=== PATIENT | female | born 1965 | race Caucasian/White ===

== ENCOUNTER 2016-09-14 18:10 | Inpatient (IN) | payer OTHER ==
[~2016-09-14] VITALS: Ht 165.1 cm; Wt 106.5 kg
[~2016-09-14 18:10] MED LIST: ASPI81TA28 PO; CALC667C PO; CLR10 PO; HYDR-5688 PO; INSDGIPEN SC; ISOS30TA35 PO; ISOS60TA25 PO; LPT40 PO; METO50TA16 PO; OXYC-57 PO; RANI300T PO; VNCS125 PO; ZLF/100 PO
[2016-09-14] MEDS ORDERED: NITROGLYCERIN OINT 2% 1GM PACKET EXT ONE (18:30)
--- NOTE | 2016-09-14 18:37 | EMERGENCY ROOM VISIT NOTE ---
History Report prepared by Aleksandra: oShan Cardona Under the Supervision of: Dr. Timothy Shi D.O. First contact with patient: 18:20 Chief Complaint: SHORTNESS OF BREATH Stated Complaint: SOB, CHEST DISCOMFORT History of Present Illness The patient is a 50 year old female who presents to the Emergency Room with complaints of persistent shortness of breath that began 8 days prior to arrival. Her shortness of breath is worsened when laying flat, and she feels as though she cannot take a deep breath. The patient is on routine dialysis, but missed her last three appointments due to an upset stomach and diarrhea. The patient's last appointment was Tuesday, 8 days ago. She also complains of fevers , chills, and coughing. She does feel like she is carrying a lot of extra fluid in her abdomen, but denies excess fluid buildup in her lower extremities. 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 Review of Systems See HPI for pertinent positives & negatives. A total of 10 systems reviewed and were otherwise negative. Past Medical & Surgical Medical Problems: (1) Allergic rhinitis (2) Coronary arteriosclerosis in [place] artery (3) DM type 2 (diabetes mellitus, type 2) (4) Dyslipidemia (5) ESRD (end stage renal disease) on dialysis (6) ESRD (end stage renal disease) on dialysis (7) GERD (gastroesophageal reflux disease) (8) HTN (hypertension) (9) HX OF PAST NONCOMPLIANCE (10) Hyperkalemia (11) Morbid obesity (12) Tobacco use disorder Surgical Problems: (1) Hemodialysis access, AV graft Family History Diabetes mellitus FATHER MOTHER Heart disease FATHER MOTHER Hypertension FATHER MOTHER Kidney disease GRANDMOTHER Social History Smoking Status: Former Smoker Alcohol Use: none Drug Use: none Marital Status: Housing Status: lives with family Occupation Status: unemployed Current/Historical Medications Scheduled Aspirin (Aspirin Ec), 81 MG PO DAILY Atorvastatin (Lipitor), 40 MG PO DAILY Calcium Acetate (Phoslo 667 Mg), 1 CAP PO WM Cephalexin Monohydrate (Cephalexin), 1 CAP PO BID Clopidogrel Bisulfate (Plavix), 1 TAB PO DAILY Insulin Glargine (Lantus Solostar), 10 UNITS SC QPM Isosorbide Mononitrate (Isosorbide Mononitrate ER), 60 MG PO QAM Isosorbide Mononitrate Ext Rel (Imdur Ext Rel), 30 MG PO QAM Metoprolol Tartrate (Lopressor), 50 MG PO BID Ranitidine Hcl (Zantac), 300 MG PO HS Sertraline HCl (Sertraline HCl), 2 TAB PO DAILY Scheduled PRN Lorazepam (Ativan), 0.5 MG PO DAILY PRN for Anxiety Methocarbamol (Methocarbamol), 500 MG PO BID PRN for Muscle Spasms Tramadol (Ultram), 1 TAB PO TID PRN for Pain Allergies Coded Allergies: Adhesives (Verified Allergy, Mild, RASH, SORES, 09/14/16) Pollen Extract (Unverified Allergy, Unknown, rash, 09/14/16) Physical Exam Vital Signs Date Time Temp Pulse Resp B/P Pulse Ox O2 Delivery O2 Flow Rate FiO2 09/14/16 19:12 93 22 181/109 95 Room Air 09/14/16 18:54 97 09/14/16 18:53 93 Room Air 09/14/16 18:44 93 Room Air 09/14/16 18:44 93 Room Air 09/14/16 18:13 36.5 98 20 192/113 93 Room Air Physical Exam GENERAL: Patient is awake, alert, and anxious appearing. She is comfortable, does not appear to be in pain. EYES: The conjunctivae are clear. The pupils are round and reactive. EARS, NOSE, MOUTH AND THROAT: The nose is without any evidence of any deformity. Mucous membranes are moist tongue is midline NECK: The neck is nontender and supple. RESPIRATORY: Lung sounds are diminished throughout all lung rodríguez. Rales are present in all lung rodríguez. Tachypnea and conversational dyspnea are noted bilaterally. CARDIOVASCULAR: Regular rate and rhythm noted there no murmurs rubs or gallops normal S1 normal S2 GASTROINTESTINAL: The abdomen is soft. Bowel sounds are present in all quadrants. Abdomen is nontender MUSCULOSKELETAL/EXTREMITIES: Pedal edema bilaterally. There is no evidence of gross deformity full range of motion is noted in the hips and shoulders SKIN: There is no obvious evidence of any rash. There are no petechiae, pallor or cyanosis noted. There was a blackened area at the tip of the right index finger. This is nontender. There is a dialysis fistula present in the right upper extremity. A bruit was noted to osculation as well as a palpable thrill. NEUROLOGIC: Patient is awake alert and oriented x3 strength is symmetric patellar reflexes are 2+ bilaterally Medical Decision & Procedures ER Provider Diagnostic Interpretation: X ray results and stated below per my interpretation and radiology interpretation. Other radiology results per my review and radiologist interpretation: CHEST ONE VIEW PORTABLE CLINICAL HISTORY: Respiratory distress. Dyspnea. COMPARISON STUDY: Chest radiograph June 01, 2016. FINDINGS: Lung volumes are normal. There is no pneumothorax or pleural effusion. Moderate cardiomegaly is unchanged. There is pulmonary vascular congestion without overt pulmonary edema. There are findings suggestive of calcific tendinitis of the right rotator cuff. IMPRESSION: Stable cardiomegaly and pulmonary vascular congestion. Electronically signed by: Juan A Mcintosh M.D. 09/14/2016 6:45 PM Dictated Date/Time: 09/14/2016 6:42 PM Laboratory Results Test 09/14/16 19:08 Immature Granulocyte % (Auto) 0.3 % White Blood Count 11.11 K/uL (4.8-10.8) Red Blood Count 3.28 M/uL (4.2-5.4) Hemoglobin 10.0 g/dL (12.0-16.0) Hematocrit 29.3 % (37-47) Mean Corpuscular Volume 89.3 fL (80-100) Mean Corpuscular Hemoglobin 30.5 pg (25-34) Mean Corpuscular Hemoglobin Concent 34.1 g/dl (32-36) Platelet Count 338 K/uL (130-400) Mean Platelet Volume 10.4 fL (7.4-10.4) Neutrophils (%) (Auto) 72.3 % Lymphocytes (%) (Auto) 17.0 % Monocytes (%) (Auto) 7.8 % Eosinophils (%) (Auto) 2.3 % Basophils (%) (Auto) 0.3 % Neutrophils # (Auto) 8.03 K/uL (1.4-6.5) Lymphocytes # (Auto) 1.89 K/uL (1.2-3.4) Monocytes # (Auto) 0.87 K/uL (0.11-0.59) Eosinophils # (Auto) 0.26 K/uL (0-0.5) Basophils # (Auto) 0.03 K/uL (0-0.2) Immature Granulocyte # (Auto) 0.03 K/uL (0.00-0.02) Prothrombin Time 11.3 SECONDS (9.0-12.0) Prothromb Time International Ratio 1.1 (0.9-1.1) Activated Partial Thromboplast Time 30.3 SECONDS (21.0-31.0) Partial Thromboplastin Ratio 1.2 Total Bilirubin 0.3 mg/dl (0.2-1) Aspartate Amino Transf (AST/SGOT) 6 U/L (15-37) Alanine Aminotransferase (ALT/SGPT) 14 U/L (12-78) Alkaline Phosphatase 75 U/L (45-117) Pro-B-Type Natriuretic Peptide > 84245 pg/ml (0-450) Total Protein 7.9 gm/dl (6.4-8.2) Albumin 3.0 gm/dl (3.4-5.0) Globulin 4.9 gm/dl (2.5-4.0) Albumin/Globulin Ratio 0.6 (0.9-2) Laboratory results per my review. Medications Administered Medications (Trade) Dose Ordered Sig/Bladimir Route Start Time Stop Time Status Last Admin Dose Admin Nitroglycerin (Nitroglycerin 2% Oint) 1 inch NOW ONCE EXT 09/14/16 18:30 09/14/16 18:31 DC 09/14/16 18:45 1 INCH ECG Indication: SOB/dyspnea Rate (beats per minute): 95 Rhythm: normal sinus Findings: Q waves (Inferior), T-wave inversion (Inferior), no ectopy Comparison ECG Date: 06/02/2016 Change: T-wave inversions are new. ED Course 1820: The patient was evaluated in room C2A. A complete history and physical examination were performed. 1829: Ordered Nitroglycerin 1 inch EXT. 1920: I reevaluated the patient at this time. She was resting comfortably. 2009: I discussed the case with Dr. Cristal Pina Hospitalist, he will evaluate the patient for further treatment. 2011: I spoke with the patient at this time and informed her of her admission. She agrees to the treatment plan. Medical Decision The patient's history was concerning for respiratory difficulties. Differential diagnosis: Etiologies such as infections, reactive airway disease, pneumonia, pneumothorax , COPD, CHF, cardiac ischemia, pulmonary embolism, musculoskeletal, gastrointestinal, as well as others were entertained. Nursing notes reviewed. The patient is a 50-year-old female who presented to the emergency department for an evaluation of shortness of breath. The patient was expressing significant shortness of breath and orthopnea. She has a history of renal failure and has not gone to dialysis. She missed her last 3 appointments with dialysis. The patient's EKG did not show significant abnormality I would associate with hyperkalemia however there were some ischemic changes. Her troponin was mildly elevated however I think this is secondary to her renal failure and not secondary to ischemia. The patient was treated with Nitropaste. She was also placed on supplement oxygen. On subsequent reevaluation she was feeling much better and had no chest pain. I discussed the patient's laboratory and radiographic studies with her. I also discussed her case with the on-call [facility] hospitalist group. They have agreed to evaluate the patient in the emergency department for further management and disposition. Consults Time Called: 2001 Consulting Physician: Dr. Cristal Freeman Returned Call: 2009 I discussed the case with Dr. Cristal Freeman, he will evaluate the patient for further treatment. Impression Primary Impression: Pulmonary edema Additional Impressions: Renal failure Elevated troponin Hyperkalemia Scribe Attestation The scribe's documentation has been prepared under my direction and personally reviewed by me in its entirety. I confirm that the note above accurately reflects all work, treatment, procedures, and medical decision making performed by me. Departure Information Dispostion Being Evaluated By Hospitalist Referrals Tamy Becerra D.O. (PCP) Patient Instructions My [facility] Problem Qualifiers
[2016-09-14] MEDS ORDERED: KFL500HP PO (18:41)
--- NOTE | 2016-09-14 18:47 | DIAGNOSTIC IMAGING REPORT ---
CHEST ONE VIEW PORTABLE CLINICAL HISTORY: Respiratory distress. Dyspnea. COMPARISON STUDY: Chest radiograph June 01, 2016. FINDINGS: Lung volumes are normal. There is no pneumothorax or pleural effusion. Moderate cardiomegaly is unchanged. There is pulmonary vascular congestion without overt pulmonary edema. There are findings suggestive of calcific tendinitis of the right rotator cuff. IMPRESSION: Stable cardiomegaly and pulmonary vascular congestion. Electronically signed by: Juan A Mcintosh M.D. 09/14/2016 6:45 PM Dictated Date/Time: 09/14/2016 6:42 PM
[2016-09-14 19:16] LABS: BASO % 0.3 %; BASO ABS # 0.03 K/uL (0-0.2); COMPLETE YES; EOS % 2.3 %; HEMATOCRIT 29.3 % (37-47); IG% 0.3 %; LYMPH ABS # 1.89 K/uL (1.2-3.4); MEAN CELL VOLUME 89.3 fL (80-100); MEAN CORPUSCULAR HEMOGLOBIN 30.5 pg (25-34); MEAN CORPUSCULAR HGB CONC 34.1 g/dl (32-36); MEAN PLATELET VOLUME 10.4 fL (7.4-10.4); MONO % 7.8 %; NEUT % 72.3 %; PLATELET COUNT 338 K/uL (130-400); RED BLOOD COUNT 3.28 M/uL (4.2-5.4); WHITE BLOOD COUNT 11.11 K/uL (4.8-10.8)
[2016-09-14 19:29] LABS: INR 1.1 (0.9-1.1); PARTIAL THROMBOPLASTIN RATIO 1.2; PROTHROMBIN TIME (PATIENT) 11.3 SECONDS (9.0-12.0)
[2016-09-14 19:46] LABS: ALB/GLOB RATIO 0.6 (0.9-2); ALKALINE PHOSPHATASE 75 U/L (45-117); ALT/SGPT 14 U/L (12-78); AST/SGOT 6 U/L (15-37); BLOOD UREA NITROGEN 137 mg/dl (7-18); BUN/CREATININE RATIO 8.1 (10-20); CARBON DIOXIDE 16 mmol/L (21-32); CHLORIDE 99 mmol/L (98-107); CKMB/CK RATIO 7.2 (0-3.0); GLUCOSE 117 mg/dl (70-99); POTASSIUM 5.9 mmol/L (3.5-5.1); SODIUM 135 mmol/L (136-145)
[2016-09-14] MEDS ORDERED: ACETAMINOPHEN 325 MG TAB PO PRN (21:00)
[2016-09-14] MEDS ORDERED: RBX500 PO (21:11)
[2016-09-14] MEDS ORDERED: LPR25 PO (21:11)
[2016-09-14] MEDS ORDERED: TRAM-10 PO (21:11)
[2016-09-14] MEDS ORDERED: ASPEC81 PO (21:11)
[2016-09-14] MEDS ORDERED: ZLF50 PO (21:11)
[2016-09-14] MEDS ORDERED: CLOP1TAB5 PO (21:11)
[2016-09-14] MEDS ORDERED: ATOR-54 PO (21:11)
[2016-09-14] MEDS ORDERED: RANI150T3 PO (21:11)
[2016-09-14] MEDS ORDERED: METHOCARBAMOL 500 MG TAB PO PRN (21:15)
[2016-09-14] MEDS ORDERED: LORAZEPAM 1 MG TAB PO PRN (21:15)
[2016-09-14] MEDS ORDERED: TRAMADOL HCL 50 MG TAB PO PRN (21:15)
[2016-09-14] MEDS ORDERED: DEXTROSE 50% 50 ML SYR IV PRN (21:30)
[2016-09-14] MEDS ORDERED: GLUCAGON FOR INJ 1 MG VIAL SQ PRN (21:30)
[2016-09-14] MEDS ORDERED: GLUCOSE 10 TABS/TUBE PO PRN (21:30)
[2016-09-14] MEDS ORDERED: GLUCOSE 40% GEL 15 GM TUBE PO PRN (21:30)
--- NOTE | 2016-09-14 21:40 | History and Physical ---
History & Physical Date & Time of Service: Sep 14, 2016 at 21:18 Chief Complaint: Sob, Chest Discomfort Primary Care Physician: Tamy Becerra D.O. History of Present Illness Source: patient, clinic records, hospital records Patient seen and examined. 50 year old female with PMHx of ESRD on HD, CAD s/p bare metal stent in 04/06, DM2, HTN, HLD, Depression,h/o noncompliance, and other problems listed below presents to the ED complaining of SOB prior to arrival. Patient reports that she missed her last three dialysis sessions. She reports that she stopped going because she was having nausea and diarrhea for the past 4-5 days. She states that she has at least 5 episodes of vomiting per day. She states she didn't want to have to be unhooked from dialysis to go to the bathroom so she just didn't go. She states today she started noticing that she was getting SOB with minimal exertion. She also states she had some chest discomfort in the left side of her chest that she rated as a 2-3/10 and described as dull. She also reports that she feels bloated and has been having orthopnea at night. Patient has been taking Keflex for a right second finger infection. She states that she was told at the pharmacy that she was not to take any of her other medications while on the Keflex so she has been only taking aspirin d/t her stents. She then however states she has not been taking her medications for at least a month. She denies fevers, chills, URI symptoms, palpitations, vomiting, dysuria, calf pain. In the ED patient is hypertensive, crea is 17, potassium is 5.9, and bicarb is 16. Troponin is 0.236, and there are ST changes on EKG. She was given nitropaste which alleviated her chest pain. She will be admitted for further workup and treatment. Past Medical/Surgical History Medical Problems: (1) Allergic rhinitis Status: Chronic (2) DM type 2 (diabetes mellitus, type 2) Status: Chronic (3) Dyslipidemia Status: Chronic (4) ESRD (end stage renal disease) on dialysis Status: Chronic (5) GERD (gastroesophageal reflux disease) Status: Chronic (6) HTN (hypertension) Status: Chronic (7) HX OF PAST NONCOMPLIANCE Status: Chronic (8) Morbid obesity Status: Chronic (9) Tobacco use disorder Status: Chronic Surgical Problems: (1) Hemodialysis access, AV graft Permanent Comment: [facility] Dr. Jones 08/25/12 Status: Chronic Family History Diabetes mellitus FATHER MOTHER Heart disease FATHER MOTHER Hypertension FATHER MOTHER Kidney disease GRANDMOTHER Social History Smoking Status: Former Smoker Alcohol Use: none Drug Use: none Marital Status: Housing status: lives with family Occupational Status: unemployed Immunizations History of Influenza Vaccine: N/A Influenza Vaccine Date: Jul 22, 2012 History of Tetanus Vaccine?: Yes Tetanus Immunization Date: Apr 10, 2011 History of Pneumococcal: Yes Pneumococcal Date: Jul 22, 2012 History of Hepatitis B Vaccine: Yes Multi-Drug Resistant Organisms History of MDRO: No Allergies Coded Allergies: Adhesives (Verified Allergy, Mild, RASH, SORES, 09/14/16) Pollen Extract (Unverified Allergy, Unknown, rash, 09/14/16) Home Medications Scheduled Aspirin (Aspirin Ec), 81 MG PO DAILY Atorvastatin (Lipitor), 40 MG PO DAILY Calcium Acetate (Phoslo 667 Mg), 1 CAP PO WM Cephalexin Monohydrate (Cephalexin), 1 CAP PO BID Clopidogrel Bisulfate (Plavix), 1 TAB PO DAILY Insulin Glargine (Lantus Solostar), 10 UNITS SC QPM Isosorbide Mononitrate (Isosorbide Mononitrate ER), 60 MG PO QAM Isosorbide Mononitrate Ext Rel (Imdur Ext Rel), 30 MG PO QAM Metoprolol Tartrate (Lopressor), 50 MG PO BID Ranitidine Hcl (Zantac), 300 MG PO HS Sertraline HCl (Sertraline HCl), 2 TAB PO DAILY Scheduled PRN Lorazepam (Ativan), 0.5 MG PO DAILY PRN for Anxiety Methocarbamol (Methocarbamol), 500 MG PO BID PRN for Muscle Spasms Tramadol (Ultram), 1 TAB PO TID PRN for Pain Review of Systems Constitutional: No chills, No fever Eyes: No worsening of vision ENT: No nasal symptoms Respiratory: + dyspnea on exertion, + shortness of breath, No cough, No dyspnea at rest Cardiovascular: + chest pain, + edema, + orthopnea, No palpitations Abdomen: + diarrhea, + nausea, No constipation, No pain, No vomiting Musculoskeletal: + swelling, No calf pain Genitourinary - Female: No dysuria Neurologic: No numbness/tingling, No vertigo Psychiatric: No anxiety Endocrine: No excessive thirst Hematologic / Lymphatic: No abnormal bleeding/bruising, No clotting problems Integumentary: No itch, No rash Allergic / Immunologic: No environmental allergies Physical Exam Vital Signs Date Time Temp Pulse Resp B/P Pulse Ox O2 Delivery O2 Flow Rate FiO2 09/14/16 20:48 97 22 149/102 92 Room Air 09/14/16 19:12 93 22 181/109 95 Room Air 09/14/16 18:54 97 09/14/16 18:53 93 Room Air 09/14/16 18:44 93 Room Air 09/14/16 18:44 93 Room Air 09/14/16 18:13 36.5 98 20 192/113 93 Room Air General Appearance: + pertinent finding (WD/WN 50 year old female lying in bed in NAD ) Head: normocephalic, atraumatic Eyes: PERRL, EOMI, sclerae normal ENT: hearing grossly normal, pharynx normal Neck: supple, no JVD Respiratory/Chest: chest non-tender, lungs clear, normal breath sounds, no respiratory distress, no accessory muscle use Cardiovascular: regular rate, rhythm, no gallop, no JVD, no murmur, normal peripheral pulses Abdomen/GI: normal bowel sounds, non tender, soft Back: normal inspection, no muscle spasm Extremities/Musculoskelatal: no calf tenderness, normal capillary refill, + pedal edema (trace to +1 BL ), + pertinent finding (dressing to right index finger I/C/D ) Neurologic/Psych: alert, oriented x 3, + pertinent finding (no motor or sensory deficits noted on gross exam ) Skin: normal color, warm/dry, no rash Lymphatic: no adenopathy Diagnostics Laboratory Results Results Past 24 Hours Test 09/14/16 19:08 Range/Units White Blood Count 11.11 4.8-10.8 K/uL Red Blood Count 3.28 4.2-5.4 M/uL Hemoglobin 10.0 12.0-16.0 g/dL Hematocrit 29.3 37-47 % Mean Corpuscular Volume 89.3 80-100 fL Mean Corpuscular Hemoglobin 30.5 25-34 pg Mean Corpuscular Hemoglobin Concent 34.1 32-36 g/dl Platelet Count 338 130-400 K/uL Mean Platelet Volume 10.4 7.4-10.4 fL Neutrophils (%) (Auto) 72.3 % Lymphocytes (%) (Auto) 17.0 % Monocytes (%) (Auto) 7.8 % Eosinophils (%) (Auto) 2.3 % Basophils (%) (Auto) 0.3 % Neutrophils # (Auto) 8.03 1.4-6.5 K/uL Lymphocytes # (Auto) 1.89 1.2-3.4 K/uL Monocytes # (Auto) 0.87 0.11-0.59 K/uL Eosinophils # (Auto) 0.26 0-0.5 K/uL Basophils # (Auto) 0.03 0-0.2 K/uL RDW Standard Deviation 46.9 36.4-46.3 fL RDW Coefficient of Variation 14.3 11.5-14.5 % Immature Granulocyte % (Auto) 0.3 % Immature Granulocyte # (Auto) 0.03 0.00-0.02 K/uL Prothrombin Time 11.3 9.0-12.0 SECONDS Prothromb Time International Ratio 1.1 0.9-1.1 Activated Partial Thromboplast Time 30.3 21.0-31.0 SECONDS Partial Thromboplastin Ratio 1.2 Sodium Level 135 136-145 mmol/L Potassium Level 5.9 3.5-5.1 mmol/L Chloride Level 99 98-107 mmol/L Carbon Dioxide Level 16 21-32 mmol/L Anion Gap 20.0 3-11 mmol/L Blood Urea Nitrogen 137 7-18 mg/dl Creatinine 17.00 0.60-1.20 mg/dl Est Creatinine Clear Calc Drug Dose 5.0 ml/min Estimated GFR () 2.5 Estimated GFR (Non- 2.2 BUN/Creatinine Ratio 8.1 10-20 Random Glucose 117 70-99 mg/dl Calcium Level 9.0 8.5-10.1 mg/dl Total Bilirubin 0.3 0.2-1 mg/dl Aspartate Amino Transf (AST/SGOT) 6 15-37 U/L Alanine Aminotransferase (ALT/SGPT) 14 12-78 U/L Alkaline Phosphatase 75 45-117 U/L Total Creatine Kinase 88 26-192 U/L Creatine Kinase MB 6.3 0.5-3.6 ng/ml Creatine Kinase MB Ratio 7.2 0-3.0 Troponin I 0.236 0-0.045 ng/ml Pro-B-Type Natriuretic Peptide > 68799 0-450 pg/ml Total Protein 7.9 6.4-8.2 gm/dl Albumin 3.0 3.4-5.0 gm/dl Globulin 4.9 2.5-4.0 gm/dl Albumin/Globulin Ratio 0.6 0.9-2 Diagnostic Radiology CXR Per radiologist read: IMPRESSION: Stable cardiomegaly and pulmonary vascular congestion. EKG NSR 90 BPm, QTc 467, mild ST elevated in lead III only Impression Assessment and Plan 50 year old female with history of noncompliance presents to the ED complaining of SOB. Patient has not gone to Dialysis in 9 days. HYPERKALEMIA IN ESRD -Admit to tele -Crea 17, K 5.9 - EKG without peaked T waves -Patient noncompliant with dialysis and medications -Last dialysis was 09/06/16 is scheduled MWF -Follows with Dr. Prakash -Nephrology consult placed for dialysis management -CBC, PRP, Mg in AM -Low potassium renal diet SHORTNESS OF BREATH -likely secondary to volume overload in setting of ESRD with noncompliance with dialysis -R/O ACS as below -resume home meds -Nephrology consulted for fluid management CHEST PAIN/ELEVATED TROPONIN - history of CAD -had bare metal stent placed March 2016 -states she has been noncompliant with all meds except aspirin -Troponin 0.236 - however missed multiple days of dialysis -Lead III of EKG concerning for ST changes -Currently chest pain free -Continue Nitropaste, Aspirin -Resume, BB, Statin, Plavix -Serial Leti, EKGs -follows with Dr. Venegas as outpatient may need to consider consult in AM depending on cardiac testing results HYPERTENSIVE URGENCY -SBP >190s -Has been noncompliant with home BP meds for weeks to months -Improved BP with nitropaste, will continue -resume BB -hold Imdur until nitropaste is discontinued -monitor closely in tele RIGHT 2ND FINGER INFECTION -[facility] and [facility] -Mild leukocytosis -11K -Patient reports finger getting better, however appears gangrenous at tip - please see Dr. Bee' addendum physical exam -Change Keflex to Ancef for now, may need broad spectrum Abx if finger does not improve -pharmacy onboard for renal dosing -Defer additional consultations to attending physicians -repeat CBC in AM DIARRHEA -has history of c.diff and recently on Abx -check C. diff toxin IDDM -recent A1c 7.2 -has been noncompliant with insulin however random serum glucose tonight 112 -SSI coverage -decrease Lantus to 5 units HS to avoid hypoglycemia -BSG AC HS -consistent carb diet GERD -continue Zantac HLD -continue Statin DEPRESSION -continue Zoloft ANEMIA in ESRD -Hgb stable at 10 -repeat CBC in AM DVT PROPHYLAXIS: Sq heparin CODE STATUS: FULL CODE DISPO:In my clinical judgment this beneficiary meets acute admission criteria, established by [facility], that includes being hospitalized through two midnights. Patient seen in collaboration with Dr. Bee VTE Prophylaxis VTE Risk Assessment Done? Y/N: Yes Risk Level: Moderate Note ATTENDING ADDENDUM Record reviewed. Patient interviewed and examined. Care coordinated with Sneha Ford PA-C. Please refer to her documentation for patient's history. Briefly, 50 YO female with history of coronary artery disease s/p PCI, CKD 5 on hemodialysis, DM, and other problems as noted. Has not gone to dialysis unit for > 1 week because she wasn't feeling well. Apparently has not been taking some / most of her prescribed meds for some time. Presented to ED with SOB. No exertional chest pain, but noted some chest pressure when she rolled over in bed. Recent diarrhea. Taking cephalexin for cellulitis right index finger. EXAM: General- no acute distress VS- as noted Neck- + JVD Lungs- basilar rales Heart- RRR, S4, no rub appreciated Abdomen- + BS, soft, nontender Extremities- trace pretibial edema; no calf tenderness; erythema right index finger involving distal phalanx with apparent dry gangrene at tip of finger, no drainage Neuro- alert, oriented DATA: K 5.9. BUN 137, creatinine 17. Troponin 0.236. Other lab studies as noted. CXR- cardiomegaly, pulmonary edema. EKG performed at 18:40 reviewed and demonstrated NSR at 95 / minute, isolated [address] elevation III, slight ST depression I, aVL, inverted T-waves III, aVF, V3- V4. . ASSESSMENT AND PLAN: PULMONARY EDEMA Secondary to missed hemodialysis treatments. Oxygenation adequate on RA. Nephrology consulted to manage hemodialysis. HYPERKALEMIA Serum K 5.9. Secondary to missed hemodialysis treatments. No peaked T-waves. Discussed with Nephrology. Insulin + D50 tonight, hemodialysis in a.m. HYPERTENSION BP elevated in ED. Fluid overload, noncompliance with meds contributing factors. Resume antihypertensive meds and hemodialysis. Follow and titrate Rx. CAD Serum troponin slightly elevated, probably nonspecific elevation due to CKD. EKG changes as noted- nonspecific, does not meet criteria for STEMI. Doubt acute coronary syndrome- has mild positional chest discomfort, no anginal symptoms. Elevated BP may be contributing to EKG changes. Follow serial cardiac markers. Consult Cardiology if markers rise or there are other concerning changes in her status. Please refer to MANUEL Ford's documentation for discussion of other issues. Rene Bee MD .
[2016-09-14] MEDS ORDERED: CEFAZOLIN PHARMACY CONSULT IN PROGRESS PRN (21:45)
[2016-09-14 21:49] VITALS: BP 219/128; PULSE 96; TEMP 36.4; O2SAT 98; BMI 41.6
[2016-09-14] MEDS ORDERED: CEFAZOLIN IV 1,000 MG in DEXTROSE 5% 50ML 50 ML IV SCH (22:00)
[2016-09-14] MEDS: HEPARIN SOD 5000 UNIT/0.5 ML CARP SQ SCH (22:09)
[2016-09-14 22:13] VITALS: BP 196/119
[2016-09-14] MEDS ORDERED: CLOPIDOGREL BISULFATE 75 MG TAB PO ONE (22:24)
[2016-09-14] MEDS ORDERED: ASPIRIN 81 MG ECTAB PO ONE (22:24)
[2016-09-14] MEDS ORDERED: METOPROLOL TARTRATE 50 MG TAB PO ONE (22:25)
[2016-09-14] MEDS ORDERED: METOPROLOL TARTRATE 1 MG/ML VIAL IV. ONE (22:25)
[2016-09-14] MEDS ORDERED: METOPROLOL TARTRATE 1 MG/ML VIAL IV PRN (22:30)
[2016-09-14] MEDS ORDERED: DEXTROSE 50% 50 ML SYR IV STA (22:30)
[2016-09-14] MEDS ORDERED: INSULIN HUMAN REGULAR IV ONE (22:30)
[2016-09-14] MEDS ORDERED: INSULIN HUMAN REGULAR PER UNIT 10 UNITS in SYRINGE 9.9 ML IV SCH (22:45)
[2016-09-14 23:26] VITALS: BP 149/80; PULSE 84; TEMP 36.8; O2SAT 93
[2016-09-15] VITALS (22 sets, daily range): BP systolic 135–176; BP diastolic 69–109; PULSE 73–85; TEMP 36.4–37.1; O2SAT 92–98; Ht 165.1 cm; Wt 106.5 kg
[2016-09-15] MEDS: NITROGLYCERIN OINT 2% 1GM PACKET EXT SCH ×4 (01:03→18:26)
[2016-09-15 01:27] LABS: CKMB/CK RATIO 7.3 (0-3.0)
[2016-09-15 02:00] LABS: URINE APPEARANCE CLEAR (CLEAR); URINE BILIRUBIN NEG (NEG); URINE COLOR YELLOW; URINE EPITHELIAL CELL AUTO >30 /lpf (0-5); URINE NITRITE NEG (NEG); URINE PH 5.5 (4.5-7.5); UROBILINOGEN NEG (NEG)
[2016-09-15 02:06] LABS: MANUAL MICROSCOPIC REQUIRED? NO; REVIEW REQ? NO
[2016-09-15] MEDS: HEPARIN SOD 5000 UNIT/0.5 ML CARP SQ SCH ×3 (06:23→21:38)
[2016-09-15 07:07] LABS: HEMATOCRIT 29.3 % (37-47); MEAN CELL VOLUME 89.6 fL (80-100); MEAN CORPUSCULAR HGB CONC 33.4 g/dl (32-36); MEAN PLATELET VOLUME 10.6 fL (7.4-10.4); PLATELET COUNT 316 K/uL (130-400); RED BLOOD COUNT 3.27 M/uL (4.2-5.4); WHITE BLOOD COUNT 9.61 K/uL (4.8-10.8)
[2016-09-15] MEDS ORDERED: EPOETIN ALFA 10,000 UNITS/ML VIAL IV. ONE (07:30)
[2016-09-15] MEDS: CALCIUM ACETATE 667MG GELCAP PO SCH ×3 (07:30→16:45)
[2016-09-15] MEDS ORDERED: HEPARIN SOD (PORCINE) 1000 UNIT/ML 10 ML VIAL IV SCH (07:30)
[2016-09-15] MEDS: HEPARIN SOD (PORCINE) 1000 UNIT/ML 10 ML VIAL IV SCH ×10 (07:30→17:25)
[2016-09-15 07:58] LABS: BUN/CREATININE RATIO 8.6 (10-20); CALCIUM 9.1 mg/dl (8.5-10.1); CKMB/CK RATIO 7.6 (0-3.0); POTASSIUM 6.9 mmol/L (3.5-5.1)
[2016-09-15] MEDS ORDERED: EPOETIN ALFA INJ 6,000 UNITS in SYRINGE 0 ML IV. SCH (08:00)
[2016-09-15] MEDS: INSULIN ASPART 100 UNITS/ML 3 ML PEN SC SCH ×4 (08:56→21:37)
[2016-09-15] MEDS: ATORVASTATIN 40 MG TAB PO SCH ×2 (09:00→13:17)
[2016-09-15] MEDS: METOPROLOL TARTRATE 50 MG TAB PO SCH ×3 (09:00→22:07)
[2016-09-15] MEDS: CALCIUM GLUCONATE 10% 1,000 MG in SODIUM CHLORIDE 0.9% 50ML 50 ML IV ONE (09:00)
[2016-09-15] MEDS: ASPIRIN 81 MG ECTAB PO SCH ×2 (09:00→13:15)
[2016-09-15] MEDS: CLOPIDOGREL BISULFATE 75 MG TAB PO SCH ×2 (09:00→13:16)
[2016-09-15 09:29] LABS: HEPATITIS B AB POS
--- NOTE | 2016-09-15 09:34 | Dialysis Progress Note ---
Nephrology Dialysis Note Date of Service: Sep 15, 2016. Subjective no n/v; chest pressure resolved; not dyspneic; no pain; tolerated breakfast; states she was not supposed to be on plavix any longer Objective Date Time Temp Pulse Resp B/P Pulse Ox O2 Delivery O2 Flow Rate FiO2 09/15/16 08:00 Room Air 09/15/16 07:39 36.4 73 18 176/109 97 Room Air 09/15/16 04:00 Room Air 09/15/16 03:31 36.9 73 18 137/89 97 Room Air 09/15/16 01:02 142/96 09/14/16 23:59 Room Air 09/14/16 23:26 36.8 84 20 149/80 93 Room Air 09/14/16 22:55 93 09/14/16 22:13 196/119 09/14/16 21:49 36.4 96 18 219/128 98 Room Air 09/14/16 20:48 97 22 149/102 92 Room Air 09/14/16 19:12 93 22 181/109 95 Room Air 09/14/16 18:54 97 09/14/16 18:53 93 Room Air 09/14/16 18:44 93 Room Air 09/14/16 18:44 93 Room Air 09/14/16 18:13 36.5 98 20 192/113 93 Room Air Physical Exam: General-a&o x 3, on ra Eyes-eomi ENT-dry mm Neck-supple Lungs-diminished but clear Heart-RRR, no edema Abdomen-soft NT +BS no cole Extremities-L prox AVF + t/b; no c/c; R second digit tip red/dry gangrenous lesion about 1 cm diameter Neuro-stein, fluent speech Current Inpatient Medications Medications (Trade) Dose Ordered Sig/Bladimir Route Start Time Stop Time Status Last Admin Dose Admin Heparin Sodium (Porcine) (Heparin Sq 5000 Unit/0.5ml) 5,000 unit Q8 SQ 09/14/16 22:00 10/14/16 21:59 09/15/16 06:23 5,000 UNIT Acetaminophen (Tylenol Tab) 650 mg Q4H PRN PO 09/14/16 21:00 10/14/16 20:59 Ondansetron HCl (Zofran Inj) 4 mg Q6H PRN IV 09/14/16 21:00 10/14/16 20:59 Nitroglycerin (Nitroglycerin 2% Oint) 1 inch Q6H EXT 09/15/16 01:00 10/15/16 00:59 09/15/16 01:03 1 INCH Aspirin (Ecotrin Tab) 81 mg DAILY PO 09/15/16 09:00 Atorvastatin Calcium (Lipitor Tab) 40 mg DAILY PO 09/15/16 09:00 10/15/16 08:59 Calcium Acetate (Phoslo Cap) 667 mg TIDM PO 09/15/16 07:30 10/15/16 07:59 Clopidogrel Bisulfate (plAVix TAB) 75 mg DAILY PO 09/15/16 09:00 Lorazepam (Ativan Tab) 0.5 mg DAILY PRN PO 09/14/16 21:15 10/14/16 21:14 Methocarbamol (Robaxin Tab) 500 mg BID PRN PO 09/14/16 21:15 10/14/16 21:14 Metoprolol Tartrate (Lopressor Tab) 50 mg BID PO 09/15/16 09:00 Ranitidine HCl (zANTac TAB) 300 mg HS PO 09/15/16 21:00 10/15/16 20:59 Sertraline HCl (Zoloft Tab) 100 mg DAILY PO 09/15/16 09:00 10/15/16 08:59 Tramadol HCl (Ultram Tab) 50 mg TID PRN PO 09/14/16 21:15 10/14/16 21:14 Insulin Aspart (novoLOG ASPART) SLIDING SCALE If C... ACHS SC 09/15/16 07:00 10/15/16 06:59 09/15/16 08:56 3 UNITS Glucose (Glucose 40% Gel) 15-30 GRAMS 15 GRAMS... UD PRN PO 09/14/16 21:30 10/14/16 21:29 Glucose (Glucose Chew Tab) 4-8 Tablets 4 Tabl... UD PRN PO 09/14/16 21:30 10/14/16 21:29 Dextrose (Dextrose 50% 50ML Syringe) 25-50ML OF 50% DW IV FOR... UD PRN IV 09/14/16 21:30 10/14/16 21:29 Glucagon (Glucagon Inj) 1 mg UD PRN SQ 09/14/16 21:30 10/14/16 21:29 Insulin Glargine (Lantus Solostar Pen) 5 unit HS SC 09/15/16 21:00 10/15/16 20:59 Miscellaneous Information 1 ea UD PRN N/A 09/14/16 21:45 10/14/16 21:44 Metoprolol Tartrate (Lopressor Iv) 5 mg Q4 PRN IV 09/14/16 22:30 10/14/16 22:29 Heparin Sodium (Porcine) (Heparin Iv Bolus) 1,000 unit ONE IV 09/15/16 07:30 09/15/16 18:00 Heparin Sodium (Porcine) 400 unit 400 unit Q1H IV 09/15/16 07:30 09/15/16 18:00 Epoetin Christopher/ Syringe (Procrit Inj/ Syringe) 0.3 ml @ 1 mls/min 0800 IV. 09/15/16 08:00 09/15/16 18:00 Last 24 Hours Test 09/14/16 19:08 09/14/16 21:45 09/14/16 23:03 09/15/16 00:01 White Blood Count 11.11 K/uL Red Blood Count 3.28 M/uL Hemoglobin 10.0 g/dL Hematocrit 29.3 % Mean Corpuscular Volume 89.3 fL Mean Corpuscular Hemoglobin 30.5 pg Mean Corpuscular Hemoglobin Concent 34.1 g/dl Platelet Count 338 K/uL Mean Platelet Volume 10.4 fL Neutrophils (%) (Auto) 72.3 % Lymphocytes (%) (Auto) 17.0 % Monocytes (%) (Auto) 7.8 % Eosinophils (%) (Auto) 2.3 % Basophils (%) (Auto) 0.3 % Neutrophils # (Auto) 8.03 K/uL Lymphocytes # (Auto) 1.89 K/uL Monocytes # (Auto) 0.87 K/uL Eosinophils # (Auto) 0.26 K/uL Basophils # (Auto) 0.03 K/uL RDW Standard Deviation 46.9 fL RDW Coefficient of Variation 14.3 % Immature Granulocyte % (Auto) 0.3 % Immature Granulocyte # (Auto) 0.03 K/uL Prothrombin Time 11.3 SECONDS Prothromb Time International Ratio 1.1 Activated Partial Thromboplast Time 30.3 SECONDS Partial Thromboplastin Ratio 1.2 Sodium Level 135 mmol/L Potassium Level 5.9 mmol/L Chloride Level 99 mmol/L Carbon Dioxide Level 16 mmol/L Anion Gap 20.0 mmol/L Blood Urea Nitrogen 137 mg/dl Creatinine 17.00 mg/dl Est Creatinine Clear Calc Drug Dose 5.0 ml/min Estimated GFR () 2.5 Estimated GFR (Non- 2.2 BUN/Creatinine Ratio 8.1 Random Glucose 117 mg/dl Calcium Level 9.0 mg/dl Total Bilirubin 0.3 mg/dl Aspartate Amino Transf (AST/SGOT) 6 U/L Alanine Aminotransferase (ALT/SGPT) 14 U/L Alkaline Phosphatase 75 U/L Total Creatine Kinase 88 U/L Creatine Kinase MB 6.3 ng/ml Creatine Kinase MB Ratio 7.2 Troponin I 0.236 ng/ml Pro-B-Type Natriuretic Peptide > 10370 pg/ml Total Protein 7.9 gm/dl Albumin 3.0 gm/dl Globulin 4.9 gm/dl Albumin/Globulin Ratio 0.6 Bedside Glucose 112 mg/dl 215 mg/dl 63 mg/dl Test 09/15/16 00:28 09/15/16 00:36 09/15/16 01:00 09/15/16 01:30 Bedside Glucose 72 mg/dl 90 mg/dl Total Creatine Kinase 85 U/L Creatine Kinase MB 6.2 ng/ml Creatine Kinase MB Ratio 7.3 Troponin I 0.262 ng/ml Urine Color YELLOW Urine Appearance CLEAR Urine pH 5.5 Urine Specific [place] 1.010 Urine Protein 3+ Urine Glucose (UA) 2+ Urine Ketones NEG Urine Occult Blood 1+ Urine Nitrite NEG Urine Bilirubin NEG Urine Urobilinogen NEG Urine Leukocyte Esterase TRACE Urine WBC (Auto) 10-30 /hpf Urine RBC (Auto) 0-4 /hpf Urine Hyaline Casts (Auto) 1-5 /lpf Urine Epithelial Cells (Auto) >30 /lpf Urine Bacteria (Auto) 2+ Test 09/15/16 01:57 09/15/16 03:02 09/15/16 04:09 09/15/16 06:43 Bedside Glucose 113 mg/dl 169 mg/dl 186 mg/dl White Blood Count 9.61 K/uL Red Blood Count 3.27 M/uL Hemoglobin 9.8 g/dL Hematocrit 29.3 % Mean Corpuscular Volume 89.6 fL Mean Corpuscular Hemoglobin 30.0 pg Mean Corpuscular Hemoglobin Concent 33.4 g/dl RDW Standard Deviation 47.0 fL RDW Coefficient of Variation 14.3 % Platelet Count 316 K/uL Mean Platelet Volume 10.6 fL Sodium Level 134 mmol/L Potassium Level 6.9 mmol/L Chloride Level 97 mmol/L Carbon Dioxide Level 17 mmol/L Anion Gap 20.0 mmol/L Blood Urea Nitrogen 146 mg/dl Creatinine 17.00 mg/dl Est Creatinine Clear Calc Drug Dose 5.0 ml/min Estimated GFR () 2.5 Estimated GFR (Non- 2.2 BUN/Creatinine Ratio 8.6 Random Glucose 131 mg/dl Calcium Level 9.1 mg/dl Magnesium Level 3.0 mg/dl Total Creatine Kinase 76 U/L Creatine Kinase MB 5.8 ng/ml Creatine Kinase MB Ratio 7.6 Troponin I 0.283 ng/ml Test 09/15/16 06:51 09/15/16 07:52 Bedside Glucose 130 mg/dl Date/Time Source Procedure Growth Status 09/15/16 01:30 Stool C.difficile Toxin B Gene (PCR) - Final No C. difficile toxin B gene detected Complete Assessment & Plan 50 y/o F w/ ESRD, nonadherence, R 2nd finger lesion admitted for mgt of HTN urgency and hyperkalemia after missing several dialysis treatments ESRD and hyperkalemia K 6.9 today (nonhemolyzed) > will do HD first 2 hrs on 1 K bath then 2 K for rest of tx as aggressive uf as tolerated will look to do tx again tomorrow and possibly again 09/17 as clinical status dictates anemia of esrd will give moderate procrit dose w/ HD and add iron studies CAD; hx of BM stent 03/2016 and HTN urgency -pt states was instructed by Dr Venegas/ cardiology to stop plavix adn take aspirin only; this goes against guidelines and doubt it is true; defer to primary service to reinforce indications w/ pt -troponins mildly elevated > could well be leak in this pt, though values are higher than previous admits recently finger lesion per primary service appreciate c/s; will follow with you.
[2016-09-15] MEDS ORDERED: CALCIUM GLUCONATE 10% 1,000 MG in SODIUM CHLORIDE 0.9% 50ML 50 ML IV STA (09:43)
--- NOTE | 2016-09-15 09:44 | Nephrology Consultation ---
Nephrology Consultation Date of Consultation: Sep 15, 2016. Attending Physician: Dr Robles Requesting Physician: Dr Bee Reason for Consultation: ESRD w/ HTN, hyperkalemia History of Present Illness 50 year old female w/ ESRD on MWF HD missed the last 3 outpt dialysis treatments due to emesis and diarrhea concerns and came to ER w/ shortness of breath, orthopnea, and chest discomfort. Other PMH as below. Her presenting potassium was 5.9 and was managed medically overnight under my direction; she did unfortunately have some symptomatic hypoglycemia (BG 63) w/ therapy despite dextrose but BG improved this am. Her blood pressure and chest pain were suitably managed with nitropaste. She also stated she has not had most of her medications for the past month except for aspirin and keflex which was prescribed for R 2nd finger infection--so she had a bare metal stent in March and has not been taking plavix. She is being evaluated for acute coronary syndrome and troponins are very mildly elevated in mid/high 0.2's. She also is being followed by vascular and ortho as an outpt for L second finger lesion. She dialyzes under the care of Dr Prakash at [facility] using a RUE AVF. this morning her K was 6.9 non hemolyzed > no changes on monitor worker and she was already on dialysis when this posted. I adjusted her bath accordingly. Past Medical/Surgical History Medical Problems: (1) Abdominal pain Status: Acute (2) Acute electrocardiogram changes Status: Acute (3) Elevated troponin Status: Acute (4) End stage renal disease Status: Acute (5) Hyperkalemia Status: Acute (6) Joint effusion Status: Acute (7) Left elbow pain Status: Acute (8) Left sided chest pain Status: Acute (9) Medical non-compliance Status: Acute (10) Pneumonia Status: Acute (11) Pulmonary edema Status: Acute (12) Renal failure Status: Acute (13) Sinusitis Status: Acute (14) Substernal chest pain Status: Acute (15) Urinary tract infection Status: Acute (16) Vomiting Status: Acute -ESRD on in center HD via AVF as above -C diff in past -CAD s/p BMS 03/2016; follows w/ Dr Theo MCCORDG -DM2 -HTN -anemia -HL -GERD -h/o nonadherence to medical treatment -R second finger tip lesion -states she has L carotid artery stenosis which will need stenting at some point -s/p TDC, AVF placements Family History Diabetes mellitus FATHER MOTHER Heart disease FATHER MOTHER Hypertension FATHER MOTHER Kidney disease GRANDMOTHER Social History Smoking Status: Former Smoker Alcohol Use: none Drug Use: none Marital Status: Housing Status: lives with family Occupation Status: unemployed Allergies Coded Allergies: Adhesives (Verified Allergy, Mild, RASH, SORES, 09/14/16) Pollen Extract (Unverified Allergy, Unknown, rash, 09/14/16) Medications Current Inpatient Medications Medications (Trade) Dose Ordered Sig/Bladimir Route Start Time Stop Time Status Last Admin Dose Admin Heparin Sodium (Porcine) (Heparin Sq 5000 Unit/0.5ml) 5,000 unit Q8 SQ 09/14/16 22:00 10/14/16 21:59 09/15/16 06:23 5,000 UNIT Acetaminophen (Tylenol Tab) 650 mg Q4H PRN PO 09/14/16 21:00 10/14/16 20:59 Ondansetron HCl (Zofran Inj) 4 mg Q6H PRN IV 09/14/16 21:00 10/14/16 20:59 Nitroglycerin (Nitroglycerin 2% Oint) 1 inch Q6H EXT 09/15/16 01:00 10/15/16 00:59 09/15/16 01:03 1 INCH Aspirin (Ecotrin Tab) 81 mg DAILY PO 09/15/16 09:00 Atorvastatin Calcium (Lipitor Tab) 40 mg DAILY PO 09/15/16 09:00 10/15/16 08:59 Calcium Acetate (Phoslo Cap) 667 mg TIDM PO 09/15/16 07:30 10/15/16 07:59 Clopidogrel Bisulfate (plAVix TAB) 75 mg DAILY PO 09/15/16 09:00 Lorazepam (Ativan Tab) 0.5 mg DAILY PRN PO 09/14/16 21:15 10/14/16 21:14 Methocarbamol (Robaxin Tab) 500 mg BID PRN PO 09/14/16 21:15 10/14/16 21:14 Metoprolol Tartrate (Lopressor Tab) 50 mg BID PO 09/15/16 09:00 Ranitidine HCl (zANTac TAB) 300 mg HS PO 09/15/16 21:00 10/15/16 20:59 Sertraline HCl (Zoloft Tab) 100 mg DAILY PO 09/15/16 09:00 10/15/16 08:59 Tramadol HCl (Ultram Tab) 50 mg TID PRN PO 09/14/16 21:15 10/14/16 21:14 Insulin Aspart (novoLOG ASPART) SLIDING SCALE If C... ACHS SC 09/15/16 07:00 10/15/16 06:59 Glucose (Glucose 40% Gel) 15-30 GRAMS 15 GRAMS... UD PRN PO 09/14/16 21:30 10/14/16 21:29 Glucose (Glucose Chew Tab) 4-8 Tablets 4 Tabl... UD PRN PO 09/14/16 21:30 10/14/16 21:29 Dextrose (Dextrose 50% 50ML Syringe) 25-50ML OF 50% DW IV FOR... UD PRN IV 09/14/16 21:30 10/14/16 21:29 Glucagon (Glucagon Inj) 1 mg UD PRN SQ 09/14/16 21:30 10/14/16 21:29 Insulin Glargine (Lantus Solostar Pen) 5 unit HS SC 09/15/16 21:00 10/15/16 20:59 Miscellaneous Information 1 ea UD PRN N/A 09/14/16 21:45 10/14/16 21:44 Metoprolol Tartrate (Lopressor Iv) 5 mg Q4 PRN IV 09/14/16 22:30 10/14/16 22:29 Home Meds and Scripts Medications Dose Route/Sig Max Daily Dose Days Date Category Dose Instructions Sertraline HCl 50 Mg Tab 2 Tab PO DAILY 30 09/14/16 Reported Phoslo 667 Mg (Calcium Acetate) 667 Mg Cap 1 Cap PO WM 09/14/16 Reported Lipitor (Atorvastatin) 20 Mg Tab 40 Mg PO DAILY 09/14/16 Reported Lopressor (Metoprolol Tartrate) 25 Mg Tab 50 Mg PO BID 09/14/16 Reported Plavix (Clopidogrel Bisulfate) 75 Mg Tab 1 Tab PO DAILY 90 09/14/16 Reported Isosorbide Mononitrate ER (Isosorbide Mononitrate) 30 Mg Tabcr 60 Mg PO QAM 09/14/16 Reported Imdur Ext Rel (Isosorbide Mononitrate) 30 Mg Ertab 30 Mg PO QAM 09/14/16 Reported Lantus Solostar (Insulin Glargine) 100 Unit/Ml Inj 10 Units SC QPM 09/14/16 Reported Ativan (Lorazepam) 1 Mg Tab 0.5 Mg PO DAILY PRN 09/14/16 Reported Zantac (Ranitidine HCl) 150 Mg Tab 300 Mg PO HS 09/14/16 Reported Methocarbamol 500 Mg Tab 500 Mg PO BID PRN 09/14/16 Reported Ultram (Tramadol HCl) 50 Mg Tab 1 Tab PO TID PRN 30 09/14/16 Reported Cephalexin (Cephalexin Monohydrate) 1 Homepack Ea 1 Cap PO BID 09/14/16 Reported PT IS NOT TAKING THE OTHER MEDS UNTIL SHE FINISHED TAKING THIS Aspirin Ec (Aspirin) 81 Mg Tab 81 Mg PO DAILY 04/06/16 Reported Review of Systems Constitutional: + fatigue, No fever, No weakness Eyes: No worsening of vision ENT: No unusual epistaxis Respiratory: + see HPI, No cough, No dyspnea at rest, No shortness of breath Cardiac: No chest pain, No edema, No palpitations Abdomen: + problem reported (states fluid build up occurs for her in abdomen), + see HPI, No diarrhea, No nausea, No pain, No vomiting Musculoskeletal: No joint pain, No muscle pain Female : No dysuria Neuro: No balance problems, No memory loss, No weakness Psych: No anxiety, No depression symptoms Heme: No abnormal bleeding/bruising Endo: No fatigue Skin: No rash Physical Exam Date Time Temp Pulse Resp B/P Pulse Ox O2 Delivery O2 Flow Rate FiO2 09/15/16 04:00 Room Air 09/15/16 03:31 36.9 73 18 137/89 97 Room Air 09/15/16 01:02 142/96 09/14/16 23:59 Room Air 09/14/16 23:26 36.8 84 20 149/80 93 Room Air 09/14/16 22:55 93 09/14/16 22:13 196/119 09/14/16 21:49 36.4 96 18 219/128 98 Room Air 09/14/16 20:48 97 22 149/102 92 Room Air 09/14/16 19:12 93 22 181/109 95 Room Air 09/14/16 18:54 97 09/14/16 18:53 93 Room Air 09/14/16 18:44 93 Room Air 09/14/16 18:44 93 Room Air 09/14/16 18:13 36.5 98 20 192/113 93 Room Air 24-Hour Column 09/15/16 08:00 Intake Total 200 ml Output Total 275 ml Balance -75 ml General Appearance: WD/WN, no apparent distress, + obese Eyes: EOMI ENT: hearing grossly normal Neck: supple Respiratory/Chest: normal breath sounds, no respiratory distress Cardiovascular: regular rate, rhythm, no edema Abdomen: normal bowel sounds, non tender, soft (no cole) Extremities: no pedal edema, + pertinent finding (L AVF + t/b; R 2nd dry gangrenous appearing lesion 1 cm diameter) Neurologic/Psych: no motor/sensory deficits, alert, normal mood/affect, oriented x 3 Skin: warm/dry, no rash, + pallor Diagnostics Last 24 Hours Test 09/14/16 19:08 09/14/16 21:45 09/14/16 23:03 09/15/16 00:01 White Blood Count 11.11 K/uL Red Blood Count 3.28 M/uL Hemoglobin 10.0 g/dL Hematocrit 29.3 % Mean Corpuscular Volume 89.3 fL Mean Corpuscular Hemoglobin 30.5 pg Mean Corpuscular Hemoglobin Concent 34.1 g/dl Platelet Count 338 K/uL Mean Platelet Volume 10.4 fL Neutrophils (%) (Auto) 72.3 % Lymphocytes (%) (Auto) 17.0 % Monocytes (%) (Auto) 7.8 % Eosinophils (%) (Auto) 2.3 % Basophils (%) (Auto) 0.3 % Neutrophils # (Auto) 8.03 K/uL Lymphocytes # (Auto) 1.89 K/uL Monocytes # (Auto) 0.87 K/uL Eosinophils # (Auto) 0.26 K/uL Basophils # (Auto) 0.03 K/uL RDW Standard Deviation 46.9 fL RDW Coefficient of Variation 14.3 % Immature Granulocyte % (Auto) 0.3 % Immature Granulocyte # (Auto) 0.03 K/uL Prothrombin Time 11.3 SECONDS Prothromb Time International Ratio 1.1 Activated Partial Thromboplast Time 30.3 SECONDS Partial Thromboplastin Ratio 1.2 Sodium Level 135 mmol/L Potassium Level 5.9 mmol/L Chloride Level 99 mmol/L Carbon Dioxide Level 16 mmol/L Anion Gap 20.0 mmol/L Blood Urea Nitrogen 137 mg/dl Creatinine 17.00 mg/dl Est Creatinine Clear Calc Drug Dose 5.0 ml/min Estimated GFR () 2.5 Estimated GFR (Non- 2.2 BUN/Creatinine Ratio 8.1 Random Glucose 117 mg/dl Calcium Level 9.0 mg/dl Total Bilirubin 0.3 mg/dl Aspartate Amino Transf (AST/SGOT) 6 U/L Alanine Aminotransferase (ALT/SGPT) 14 U/L Alkaline Phosphatase 75 U/L Total Creatine Kinase 88 U/L Creatine Kinase MB 6.3 ng/ml Creatine Kinase MB Ratio 7.2 Troponin I 0.236 ng/ml Pro-B-Type Natriuretic Peptide > 87531 pg/ml Total Protein 7.9 gm/dl Albumin 3.0 gm/dl Globulin 4.9 gm/dl Albumin/Globulin Ratio 0.6 Bedside Glucose 112 mg/dl 215 mg/dl 63 mg/dl Test 09/15/16 00:28 09/15/16 00:36 09/15/16 01:00 09/15/16 01:30 Bedside Glucose 72 mg/dl 90 mg/dl Total Creatine Kinase 85 U/L Creatine Kinase MB 6.2 ng/ml Creatine Kinase MB Ratio 7.3 Troponin I 0.262 ng/ml Urine Color YELLOW Urine Appearance CLEAR Urine pH 5.5 Urine Specific [place] 1.010 Urine Protein 3+ Urine Glucose (UA) 2+ Urine Ketones NEG Urine Occult Blood 1+ Urine Nitrite NEG Urine Bilirubin NEG Urine Urobilinogen NEG Urine Leukocyte Esterase TRACE Urine WBC (Auto) 10-30 /hpf Urine RBC (Auto) 0-4 /hpf Urine Hyaline Casts (Auto) 1-5 /lpf Urine Epithelial Cells (Auto) >30 /lpf Urine Bacteria (Auto) 2+ Test 09/15/16 01:57 09/15/16 03:02 09/15/16 04:09 09/15/16 04:44 Bedside Glucose 113 mg/dl 169 mg/dl 186 mg/dl Creatine Kinase MB Ratio Test 09/15/16 06:43 09/15/16 06:51 09/15/16 07:18 White Blood Count 9.61 K/uL Red Blood Count 3.27 M/uL Hemoglobin 9.8 g/dL Hematocrit 29.3 % Mean Corpuscular Volume 89.6 fL Mean Corpuscular Hemoglobin 30.0 pg Mean Corpuscular Hemoglobin Concent 33.4 g/dl RDW Standard Deviation 47.0 fL RDW Coefficient of Variation 14.3 % Platelet Count 316 K/uL Mean Platelet Volume 10.6 fL Bedside Glucose 130 mg/dl Diagnostic Radiology: CXR last evening which I reviewed personally >> pulmonary vascular congestion EKG: NSR; prior NM changes/stable; new/nonspecific T wave inversions inferior leads on admission >> this am new right axis and more prominent nonspecific T wave anomaly, possible NM C diff negative Assessment & Plan 50 y/o F w/ ESRD and HTN and medical nonadherence admitted for management of hypertensive urgency after missing several dialysis treatments due to diarrhea; also being evaluated for dry gangrene of L finger. ESRD w/ hypertension and hyperkalemia Had IV insulin overnight; labs this am pending >> K 6.9 and baths adjusted -HD one of first txs this am bedside with UF goal 2.5-3.5L fluid removal -plan HD tomorrow most likely and again 09/17 -follow up troponins, symptoms, serial ecgs Anemia of ESRD low dose epo w/ HD CAD and ECG changes, minimally elevated troponins -needs education about indications for plavix which she states she was instructed by cardiology to stop (cannot imagine this is correct) -ECG changes noted and if persistent after HD may need further intervention -agree w/ calcium gluconate L finger lesion -ischemia versus dry gangrene versus embolism versus local infection -vascular following; ortho aware; per these teams and primary service -not her AVF arm Diarrhea/ emesis -no sx currently -C diff assay negative Appreciate consult; will follow with you. Will discuss with Dr. Robles.
[2016-09-15] MEDS ORDERED: NURSING VERBAL MED ORDER ONE (09:45)
[2016-09-15] MEDS: SERTRALINE HCL 50 MG TAB PO SCH (13:16)
[2016-09-15] MEDS: ONDANSETRON INJ 2 MG/ML 2 ML VIAL IV PRN ×2 (15:34→21:51)
[2016-09-15 16:09] LABS: BUN/CREATININE RATIO 6.5 (10-20); CALCIUM 8.5 mg/dl (8.5-10.1); CREATININE 9.7 mg/dl (0.60-1.20); MAGNESIUM 2.2 mg/dl (1.8-2.4)
--- NOTE | 2016-09-15 16:26 | Progress Note ---
Internal Med Progress Note Date of Service: Sep 15, 2016. Provider Documentation: SUBJECTIVE: The patient was sen and examined Did not receive any dialysis since Tuesday the Weak and SOB OBJECTIVE: Vital Signs-as noted below Exam: General-Generally weak and lethargic Eyes-Normal ENT-normal Neck-Supple Lungs-Decreased breath sound bilaterally Crackles bilaterally at the bases Heart-Regular,no murmur Abdomen-Benign,no masses Extremities-Trace edema bilaterally very small dry gangrene like lesion right index tip and left big toe tip No cellulitis Neuro-AAox3 Lab data as noted below. ASSESSMENT & PLAN: HYPERKALEMIA with ESRD Missed Dialysis since Aug Generally weak and lethargic EKG changes Received Insulin and Dextrose Will get Dialysis Appreciate Nephrology input SHORTNESS OF BREATH -likely secondary to volume overload in setting of ESRD with noncompliance with dialysis -Will need dialysis -resume home meds -Nephrology consulted for fluid management CHEST PAIN- history of CAD Has had bare metal stent placed March 2016 ELEVATED TROPONIN -renal failure contributing EKG changes secondary to Increased K Currently chest pain free Continue Nitropaste, Aspirin Resume, BB, Statin, Plavix May need Cardiology in increasing Troponin and or pain HYPERTENSIVE URGENCY -SBP >190s -Has been noncompliant with home BP meds for weeks to months -Improved BP with nitropaste, will continue RIGHT 2ND FINGER INFECTION -has [facility] and [facility] -no spreading cellulitis -continue current antibiotic DIARRHEA -has history of c.diff and recently on Abx -check C. diff toxin IDDM -recent A1c 7.2 -has been noncompliant with insulin however random serum glucose tonight 112 -SSI coverage GERD -continue Zantac HLD -continue Statin DEPRESSION -continue Zoloft DVT PROPHYLAXIS: Sq heparin CODE STATUS: FULL CODE DISPO: Awaited Vital Signs: Date Time Temp Pulse Resp B/P Pulse Ox O2 Delivery O2 Flow Rate FiO2 09/15/16 15:34 82 09/15/16 15:13 37.1 85 20 165/94 95 Room Air 09/15/16 13:10 36.8 82 135/102 09/15/16 12:30 79 147/74 09/15/16 12:15 79 145/76 09/15/16 12:11 Room Air 09/15/16 12:00 80 161/96 09/15/16 11:45 77 150/77 1/25/17 11:30 80 167/98 09/15/16 11:15 78 150/96 09/15/16 11:00 36.4 79 20 163/97 98 Room Air 09/15/16 11:00 79 163/97 09/15/16 10:45 76 159/96 09/15/16 10:37 Room Air 09/15/16 10:30 80 139/82 09/15/16 10:15 81 148/87 09/15/16 10:00 80 147/85 09/15/16 09:45 79 159/100 09/15/16 09:30 78 159/94 09/15/16 09:15 78 159/101 09/15/16 08:59 75 154/100 09/15/16 08:44 37.1 73 163/97 09/15/16 08:00 Room Air 09/15/16 07:39 36.4 73 18 176/109 97 Room Air 09/15/16 04:00 Room Air 09/15/16 03:31 36.9 73 18 137/89 97 Room Air 09/15/16 01:02 142/96 09/14/16 23:59 Room Air 09/14/16 23:26 36.8 84 20 149/80 93 Room Air 09/14/16 22:55 93 09/14/16 22:13 196/119 09/14/16 21:49 36.4 96 18 219/128 98 Room Air 09/14/16 20:48 97 22 149/102 92 Room Air 09/14/16 19:12 93 22 181/109 95 Room Air 09/14/16 18:54 97 09/14/16 18:53 93 Room Air 09/14/16 18:44 93 Room Air 09/14/16 18:44 93 Room Air 09/14/16 18:13 36.5 98 20 192/113 93 Room Air Lab Results: Results Past 24 Hours Test 09/14/16 19:08 09/14/16 21:45 09/14/16 23:03 09/15/16 00:01 Range/Units White Blood Count 11.11 4.8-10.8 K/uL Red Blood Count 3.28 4.2-5.4 M/uL Hemoglobin 10.0 12.0-16.0 g/dL Hematocrit 29.3 37-47 % Mean Corpuscular Volume 89.3 80-100 fL Mean Corpuscular Hemoglobin 30.5 25-34 pg Mean Corpuscular Hemoglobin Concent 34.1 32-36 g/dl Platelet Count 338 130-400 K/uL Mean Platelet Volume 10.4 7.4-10.4 fL Neutrophils (%) (Auto) 72.3 % Lymphocytes (%) (Auto) 17.0 % Monocytes (%) (Auto) 7.8 % Eosinophils (%) (Auto) 2.3 % Basophils (%) (Auto) 0.3 % Neutrophils # (Auto) 8.03 1.4-6.5 K/uL Lymphocytes # (Auto) 1.89 1.2-3.4 K/uL Monocytes # (Auto) 0.87 0.11-0.59 K/uL Eosinophils # (Auto) 0.26 0-0.5 K/uL Basophils # (Auto) 0.03 0-0.2 K/uL RDW Standard Deviation 46.9 36.4-46.3 fL RDW Coefficient of Variation 14.3 11.5-14.5 % Immature Granulocyte % (Auto) 0.3 % Immature Granulocyte # (Auto) 0.03 0.00-0.02 K/uL Prothrombin Time 11.3 9.0-12.0 SECONDS Prothromb Time International Ratio 1.1 0.9-1.1 Activated Partial Thromboplast Time 30.3 21.0-31.0 SECONDS Partial Thromboplastin Ratio 1.2 Sodium Level 135 136-145 mmol/L Potassium Level 5.9 3.5-5.1 mmol/L Chloride Level 99 98-107 mmol/L Carbon Dioxide Level 16 21-32 mmol/L Anion Gap 20.0 3-11 mmol/L Blood Urea Nitrogen 137 7-18 mg/dl Creatinine 17.00 0.60-1.20 mg/dl Est Creatinine Clear Calc Drug Dose 5.0 ml/min Estimated GFR () 2.5 Estimated GFR (Non- 2.2 BUN/Creatinine Ratio 8.1 10-20 Random Glucose 117 70-99 mg/dl Calcium Level 9.0 8.5-10.1 mg/dl Total Bilirubin 0.3 0.2-1 mg/dl Aspartate Amino Transf (AST/SGOT) 6 15-37 U/L Alanine Aminotransferase (ALT/SGPT) 14 12-78 U/L Alkaline Phosphatase 75 45-117 U/L Total Creatine Kinase 88 26-192 U/L Creatine Kinase MB 6.3 0.5-3.6 ng/ml Creatine Kinase MB Ratio 7.2 0-3.0 Troponin I 0.236 0-0.045 ng/ml Pro-B-Type Natriuretic Peptide > 95041 0-450 pg/ml Total Protein 7.9 6.4-8.2 gm/dl Albumin 3.0 3.4-5.0 gm/dl Globulin 4.9 2.5-4.0 gm/dl Albumin/Globulin Ratio 0.6 0.9-2 Bedside Glucose 112 215 63 70-90 mg/dl Test 09/15/16 00:28 09/15/16 00:36 09/15/16 01:00 09/15/16 01:30 Range/Units Bedside Glucose 72 90 70-90 mg/dl Total Creatine Kinase 85 26-192 U/L Creatine Kinase MB 6.2 0.5-3.6 ng/ml Creatine Kinase MB Ratio 7.3 0-3.0 Troponin I 0.262 0-0.045 ng/ml Urine Color YELLOW Urine Appearance CLEAR CLEAR Urine pH 5.5 4.5-7.5 Urine Specific [place] 1.010 1.000-1.030 Urine Protein 3+ NEG Urine Glucose (UA) 2+ NEG Urine Ketones NEG NEG Urine Occult Blood 1+ NEG Urine Nitrite NEG NEG Urine Bilirubin NEG NEG Urine Urobilinogen NEG NEG Urine Leukocyte Esterase TRACE NEG Urine WBC (Auto) 10-30 0-5 /hpf Urine RBC (Auto) 0-4 0-4 /hpf Urine Hyaline Casts (Auto) 1-5 0-5 /lpf Urine Epithelial Cells (Auto) >30 0-5 /lpf Urine Bacteria (Auto) 2+ NEG Test 09/15/16 01:57 09/15/16 03:02 09/15/16 04:09 09/15/16 06:43 Range/Units Bedside Glucose 113 169 186 70-90 mg/dl White Blood Count 9.61 4.8-10.8 K/uL Red Blood Count 3.27 4.2-5.4 M/uL Hemoglobin 9.8 12.0-16.0 g/dL Hematocrit 29.3 37-47 % Mean Corpuscular Volume 89.6 80-100 fL Mean Corpuscular Hemoglobin 30.0 25-34 pg Mean Corpuscular Hemoglobin Concent 33.4 32-36 g/dl RDW Standard Deviation 47.0 36.4-46.3 fL RDW Coefficient of Variation 14.3 11.5-14.5 % Platelet Count 316 130-400 K/uL Mean Platelet Volume 10.6 7.4-10.4 fL Sodium Level 134 136-145 mmol/L Potassium Level 6.9 3.5-5.1 mmol/L Chloride Level 97 98-107 mmol/L Carbon Dioxide Level 17 21-32 mmol/L Anion Gap 20.0 3-11 mmol/L Blood Urea Nitrogen 146 7-18 mg/dl Creatinine 17.00 0.60-1.20 mg/dl Est Creatinine Clear Calc Drug Dose 5.0 ml/min Estimated GFR () 2.5 Estimated GFR (Non- 2.2 BUN/Creatinine Ratio 8.6 10-20 Random Glucose 131 70-99 mg/dl Calcium Level 9.1 8.5-10.1 mg/dl Magnesium Level 3.0 1.8-2.4 mg/dl Total Creatine Kinase 76 26-192 U/L Creatine Kinase MB 5.8 0.5-3.6 ng/ml Creatine Kinase MB Ratio 7.6 0-3.0 Troponin I 0.283 0-0.045 ng/ml Test 09/15/16 06:51 09/15/16 07:52 09/15/16 11:04 09/15/16 15:15 Range/Units Bedside Glucose 130 97 70-90 mg/dl Hepatitis B Surface Antigen NEG NEG Hepatitis B Surface Antibody POS Sodium Level 135 136-145 mmol/L Chloride Level 94 98-107 mmol/L Carbon Dioxide Level 26 21-32 mmol/L Anion Gap 15.0 3-11 mmol/L Creatinine 9.70 0.60-1.20 mg/dl Est Creatinine Clear Calc Drug Dose 8.7 ml/min Estimated GFR () 4.9 Estimated GFR (Non- 4.2 BUN/Creatinine Ratio 6.5 10-20 Random Glucose 191 70-99 mg/dl Calcium Level 8.5 8.5-10.1 mg/dl Magnesium Level 2.2 1.8-2.4 mg/dl Microbiology Results 09/15/16 C.difficile Toxin B Gene (PCR) - Final, Complete No C. difficile toxin B gene detected
[2016-09-15] MEDS ORDERED: CEFAZOLIN IV 1,000 MG in DEXTROSE 5% 50ML 50 ML IV SCH ×4 (17:00)
[2016-09-15 17:50] LABS: POTASSIUM 3.7 mmol/L (3.5-5.1)
[2016-09-15] MEDS: CEFAZOLIN IV 2,000 MG in DEXTROSE 5% 50ML 50 ML IV SCH (17:56)
[2016-09-15] MEDS ORDERED: ONDANSETRON INJ 2 MG/ML 2 ML VIAL IV PRN (18:45)
[2016-09-15] MEDS ORDERED: PROMETHAZINE HCL INJ 12.5 MG in SODIUM CHLORIDE 0.9% 50ML 50 ML IV PRN (18:45)
[2016-09-15] MEDS ORDERED: PROMETHAZINE HCL INJ 12.5 MG in SODIUM CHLORIDE 0.9% 50ML 50 ML IV SCH (19:00)
[2016-09-15] MEDS: INSULIN GLARGINE SOLOSTAR 100 UNITS/ML 3 ML PEN SC SCH (21:37)
[2016-09-15] MEDS: RANITIDINE HCL 150 MG TAB PO SCH (22:07)
[2016-09-16] VITALS (24 sets, daily range): BP systolic 109–161; BP diastolic 51–105; PULSE 56–83; TEMP 36.4–37; O2SAT 90–99
[2016-09-16] MEDS: NITROGLYCERIN OINT 2% 1GM PACKET EXT SCH ×4 (00:51→20:15)
[2016-09-16] MEDS: HEPARIN SOD 5000 UNIT/0.5 ML CARP SQ SCH ×3 (05:34→20:50)
[2016-09-16] MEDS: INSULIN ASPART 100 UNITS/ML 3 ML PEN SC SCH ×4 (07:00→20:09)
[2016-09-16] MEDS: CALCIUM ACETATE 667MG GELCAP PO SCH ×3 (07:12→16:43)
[2016-09-16] MEDS ORDERED: HEPARIN SOD (PORCINE) 1000 UNIT/ML 10 ML VIAL IV SCH (08:00)
[2016-09-16] MEDS ORDERED: EPOETIN ALFA 10,000 UNITS/ML VIAL IV. ONE (08:00)
[2016-09-16] MEDS ORDERED: EPOETIN ALFA INJ 6,000 UNITS in SYRINGE 0 ML IV. SCH (08:00)
[2016-09-16] MEDS: METOPROLOL TARTRATE 50 MG TAB PO SCH ×2 (10:28→20:14)
[2016-09-16] MEDS: ASPIRIN 81 MG ECTAB PO SCH (10:29)
[2016-09-16] MEDS: CLOPIDOGREL BISULFATE 75 MG TAB PO SCH (10:29)
[2016-09-16] MEDS: ATORVASTATIN 40 MG TAB PO SCH (10:29)
[2016-09-16] MEDS: SERTRALINE HCL 50 MG TAB PO SCH (10:30)
[2016-09-16] MEDS: ONDANSETRON INJ 2 MG/ML 2 ML VIAL IV PRN (10:58)
--- NOTE | 2016-09-16 11:13 | PROGRESS NOTE ---
DATE: 09/16/2016 The patient was seen during dialysis, she tolerated it very well. She had 3.5 kilos of ultrafiltration done. Her blood pressure remained good. At the end of dialysis, her blood pressure was 130s systolic. Did not have any cramp. AV fistula work well. PHYSICAL EXAMINATION: VITAL SIGNS: Most recent vital signs: Blood pressure 113/70, 71 per minute pulse rate, temperature 36.9, oxygen 99% on room air. CHEST: Bilateral decreased breath sounds, but clear. CARDIOVASCULAR: Regular rate and rhythm, trace edema. ABDOMEN: Soft, nontender. EXTREMITIES: Shows left upper arm proximal AV fistula with good bruit and thrill. Trace edema noted. NEUROLOGIC: Awake, alert, oriented x3, moving all 4 extremities. Laboratory tests from this morning was pending at the time of my examination. ASSESSMENT AND PLAN: A 50-year-old female with end-stage renal disease on hemodialysis Tuesday, Tuesday, Tuesday. Has history of nonadherence. Was admitted for management of hypertension urgency, hyperkalemia and fluid overload after missing dialysis for a week. At this time she appears significantly better, after 2 toed-bl-ccza dialyses her blood pressure is normal. She has had significant amount of fluid removal in the last 2 dialyses, and with that her volume status is better. Her potassium is expected to be within normal range by now. Her normal dialysis days are Tuesday, Tuesday, Tuesday, so we will do dialysis again tomorrow as per her schedule. Tomorrow will do for 3 hours on a 2K bath and take about 2-3 kilo off as tolerated by her blood pressure. She was again instructed not to miss dialysis for any reason. BALTAZAR
[2016-09-16] MEDS ORDERED: NURSING VERBAL MED ORDER ONE (11:15)
[2016-09-16] MEDS: HEPARIN SOD (PORCINE) 1000 UNIT/ML 10 ML VIAL IV SCH (11:44)
[2016-09-16 11:45] LABS: MEAN CELL VOLUME 90.9 fL (80-100); MEAN CORPUSCULAR HEMOGLOBIN 30.5 pg (25-34); MEAN CORPUSCULAR HGB CONC 33.5 g/dl (32-36); MEAN PLATELET VOLUME 10.7 fL (7.4-10.4); PLATELET COUNT 331 K/uL (130-400); RED BLOOD COUNT 4.07 M/uL (4.2-5.4); WHITE BLOOD COUNT 8.52 K/uL (4.8-10.8)
[2016-09-16 12:28] LABS: BUN/CREATININE RATIO 5.2 (10-20); CALCIUM 9.2 mg/dl (8.5-10.1); CREATININE 7.2 mg/dl (0.60-1.20); MAGNESIUM 2.2 mg/dl (1.8-2.4); POTASSIUM 4.2 mmol/L (3.5-5.1)
--- NOTE | 2016-09-16 15:30 | Surgery Consultation ---
Consultation Date of Service Sep 16, 2016. Chief Complaint Right index finger gangrene History of Present Illness The patient is a 50 year old female who was admitted with SOB due to missing dialysis treatments. She did not go to dialysis because of diarrhea and vomiting. She also has cellulitis of the right index finger and gangrene of the tip. She was seen by [facility] for this problem. We had seen her in the past for carotid disease and for her dialysis access. She was to follow up with [facility] for her carotid being she had [employer] insurance at that time. Vitals Vital Signs Past 12 Hours Date Time Temp Pulse Resp B/P Pulse Ox O2 Delivery O2 Flow Rate FiO2 09/16/16 12:00 Room Air 09/16/16 11:32 36.4 68 22 124/69 91 Room Air 09/16/16 10:28 71 113/70 09/16/16 10:12 36.9 56 131/72 09/16/16 10:00 56 110/72 09/16/16 09:45 80 109/59 09/16/16 09:30 76 116/51 09/16/16 09:15 80 122/62 09/16/16 09:00 73 127/58 09/16/16 08:45 70 135/67 09/16/16 08:30 74 142/66 09/16/16 08:15 76 160/72 09/16/16 08:00 99 Room Air 09/16/16 08:00 80 147/68 09/16/16 07:48 36.8 56 22 147/105 99 Room Air 09/16/16 07:45 81 138/74 09/16/16 07:30 83 161/71 09/16/16 07:15 80 141/74 09/16/16 07:00 72 135/68 09/16/16 06:45 80 142/71 09/16/16 06:30 81 135/70 09/16/16 06:15 36.6 80 145/75 09/16/16 04:37 36.9 66 18 118/79 93 Room Air 09/16/16 04:00 Room Air Allergies Coded Allergies: Adhesives (Verified Allergy, Mild, RASH, SORES, 09/14/16) Pollen Extract (Unverified Allergy, Unknown, rash, 09/14/16) Home Medications Scheduled Aspirin (Aspirin Ec), 81 MG PO DAILY Atorvastatin (Lipitor), 40 MG PO DAILY Calcium Acetate (Phoslo 667 Mg), 1 CAP PO WM Cephalexin Monohydrate (Cephalexin), 1 CAP PO BID Clopidogrel Bisulfate (Plavix), 1 TAB PO DAILY Insulin Glargine (Lantus Solostar), 10 UNITS SC QPM Isosorbide Mononitrate (Isosorbide Mononitrate ER), 60 MG PO QAM Isosorbide Mononitrate Ext Rel (Imdur Ext Rel), 30 MG PO QAM Metoprolol Tartrate (Lopressor), 50 MG PO BID Ranitidine Hcl (Zantac), 300 MG PO HS Sertraline HCl (Sertraline HCl), 2 TAB PO DAILY Scheduled PRN Lorazepam (Ativan), 0.5 MG PO DAILY PRN for Anxiety Methocarbamol (Methocarbamol), 500 MG PO BID PRN for Muscle Spasms Tramadol (Ultram), 1 TAB PO TID PRN for Pain Problem List Medical Problems: (1) Allergic rhinitis (2) Coronary arteriosclerosis in [place] artery (3) DM type 2 (diabetes mellitus, type 2) (4) Dyslipidemia (5) ESRD (end stage renal disease) on dialysis (6) ESRD (end stage renal disease) on dialysis (7) GERD (gastroesophageal reflux disease) (8) HTN (hypertension) (9) HX OF PAST NONCOMPLIANCE (10) Hyperkalemia (11) Morbid obesity (12) Tobacco use disorder Surgical Problems: (1) Hemodialysis access, AV graft Surgical / Medical History Hx Cardiac Surgery: Yes (angioplasty with stenting) Hx Abdominal Surgery: No Hx Cancer Surgery: No Hx Thoracic Surgery: No Hx Orthopedic: No Hx Urinary Tract Surgery: No HX Other Surgery: No (oral surgeries) Past Medical/Surgical History: Diabetes, Hypertension, Kidney Disease Family History Diabetes mellitus FATHER MOTHER Heart disease FATHER MOTHER Hypertension FATHER MOTHER Kidney disease GRANDMOTHER Social History Smoking Status: Former Smoker Hx Tobacco Use In Past Year?: No Hx Alcohol Use - Type & Amnt: No Hx Substance Use -Type & Amnt: No Review of Systems Constitutional: No chills, No diaphoresis, No fatigue, No fever, No malaise, No problem reported, No sweats, No weakness, No weight gain, No weight loss Respiratory: No [place] ROS[place], No PND, No cough, No cyanosis, No dyspnea, No hemoptysis, No orthopnea, No problem reported, No short of breath, No sputum production, No stridor, No wheezing Cardiovascular: No chest pain, No chest pressure, No chest tightness, No cyanosis, No diaphoresis, No edema, No intermittent claudication, No lightheadedness, No mumur, No orthopnea, No palpitations, No paroxysmal nocturnal dyspnea, No problem reported, No syncope Gastrointestinal: No abdominal pain, No anorexia, No appetite changes, No belching, No constipation, No diarrhea, No dysphagia, No flatulence, No food intolerance, No heartburn, No hematemesis, No hematochezia, No hemorrhoids, No indigestion, No nausea, No problem reported, No rectal bleeding, No stool changes, No vomiting Musculoskeletal: No back pain, No gout, No joint pain, No joint swelling, No muscle pain, No muscle stiffness, No muscle weakness, No neck pain, No problem reported Neurologic: No LOC, No dizziness, No headache, No lethargy, No memory loss, No numbness, No paresthesia, No pre-existing deficit, No problem reported, No seizures, No tics, No tingling, No tremors, No vertigo, No weakness Psychiatric: No alcohol abuse, No anxiety, No auditory hallucinations, No depression, No drug abuse, No homicidal ideation, No mood changes, No problem reported, No suicidal ideation, No visual hallucinations Physical Exam Constitutional: General Apperance: overweight Level of Distress: NAD Ambulation: ambulating normally Psychiatric: Mental Status: active & alert, normal mood, normal affect Orientation: oriented except where noted, to time, to place, to person Memory: recent memory normal, remote memory normal Neck: supple, pertinent finding (bilat bruits worse on left) Lungs: Auscultation: breath sounds normal Cardiovascular: Heart Auscultation: RRR Peripheral Pulses: Bruits: carotid bruit on the left, carotid bruit on the right Carotid Pulse: normal on the left, normal on the right Radial Pulse: normal on the left, normal on the right Ulnar Pulse: normal on the left, normal on the right Femoral Pulse: normal on the left, normal on the right Abdomen: Inspection & Palpation: soft, non-distended, no tenderness, guarding & rebound Musculoskeletal: normal Extremities: Upper Right: gangrene (tip of right index finger) Upper Left: no cyanosis, no edema, no palpable cord, no clubbing, no ulcers , no mottling, pertinent finding (good thrill in fistula) Lower Right: no cyanosis, no edema, no varicosities, no palpable cord, no clubbing, no ulcers, no mottling Lower Left: no cyanosis, no edema, no varicosities, no palpable cord, no clubbing, no ulcers, no mottling Neurologic: Cranial Nerves: grossly intact Sensation: grossly intact Assessment and Plan Imp: Severe left internal carotid artery stenosis Gangrene tip of right index finger Plan: This patient had arterial non invasives done in our office prior to her admission here. She had no evidence of arterial occlusions of her right upper extremity. The palmar arch and digital arteries to the index finger are patent. She does however have an 80 - 90% left internal carotid artery stenosis. She is asx from this lesion. Would recommend CEA for this lesion. She is agreeable to have it done now that she has changed her insurance. We will see her two weeks after d/c being that she is asymptomatic and schedule her for a left CEA with patch. I have discussed the risks options and benefits of the procedure with the patient. The patient understands the risks options and benefits and agrees to the procedure. Thank you very much for letting me participate in the care of this patient.
--- NOTE | 2016-09-16 16:27 | Progress Note ---
Internal Med Progress Note Date of Service: Sep 16, 2016. Provider Documentation: SUBJECTIVE: The patient was sen and examined Did not receive any dialysis since Tuesday the and SOB Has had nausea last night Much better today OBJECTIVE: Vital Signs-as noted below Exam: General-Generally weak and lethargic Eyes-Normal ENT-normal Neck-Supple Lungs-Decreased breath sound bilaterally Crackles bilaterally at the bases Heart-Regular,no murmur Abdomen-Benign,no masses Extremities-Trace edema bilaterally very small dry gangrene like lesion right index tip and left big toe tip No cellulitis Neuro-AAox3 Lab data as noted below. ASSESSMENT & PLAN: HYPERKALEMIA with ESRD Missed Dialysis since Aug Generally weak and lethargic EKG changes-resolved Received Insulin and Dextrose Ongoing Dialysis Appreciate Nephrology input Hyperkalemia resolved Will have Dialysis tomorrow SHORTNESS OF BREATH -likely secondary to volume overload in setting of ESRD with noncompliance with dialysis -Will need dialysis -resume home meds -Nephrology consulted for fluid management -Denies any symptoms CHEST PAIN- history of CAD Has had bare metal stent placed March 2016 ELEVATED TROPONIN -renal failure contributing EKG changes secondary to Increased K Currently chest pain free Continue Nitropaste, Aspirin Resume, BB, Statin, Plavix No more episode of CP HYPERTENSIVE URGENCY -SBP >190s -Has been noncompliant with home BP meds for weeks to months -Improved BP with nitro paste, will continue BP is controlled RIGHT 2ND FINGER INFECTION -has [facility] and [facility] -no spreading cellulitis -continue current antibiotic -appreciate Vascular surgery input DIARRHEA -has history of c.diff and recently on Abx -check C. diff toxin -Negative IDDM -recent A1c 7.2 -has been noncompliant with insulin however random serum glucose tonight 112 -SSI coverage GERD -continue Zantac HLD -continue Statin DEPRESSION -continue Zoloft DVT PROPHYLAXIS: Sq heparin CODE STATUS: FULL CODE DISPO: Likely Discharge tomorrow after dialysis Vital Signs: Date Time Temp Pulse Resp B/P Pulse Ox O2 Delivery O2 Flow Rate FiO2 09/16/16 16:00 Room Air 09/16/16 12:00 Room Air 09/16/16 11:32 36.4 68 22 124/69 91 Room Air 09/16/16 10:28 71 113/70 09/16/16 10:12 36.9 56 131/72 09/16/16 10:00 56 110/72 09/16/16 09:45 80 109/59 09/16/16 09:30 76 116/51 09/16/16 09:15 80 122/62 09/16/16 09:00 73 127/58 09/16/16 08:45 70 135/67 09/16/16 08:30 74 142/66 09/16/16 08:15 76 160/72 09/16/16 08:00 99 Room Air 09/16/16 08:00 80 147/68 09/16/16 07:48 36.8 56 22 147/105 99 Room Air 09/16/16 07:45 81 138/74 09/16/16 07:30 83 161/71 09/16/16 07:15 80 141/74 09/16/16 07:00 72 135/68 09/16/16 06:45 80 142/71 09/16/16 06:30 81 135/70 09/16/16 06:15 36.6 80 145/75 09/16/16 04:37 36.9 66 18 118/79 93 Room Air 09/16/16 04:00 Room Air 09/16/16 00:21 36.7 72 18 110/70 91 Room Air 09/15/16 23:59 Room Air 09/15/16 20:00 Room Air 09/15/16 19:44 36.7 77 18 141/69 92 Room Air 09/15/16 16:47 Room Air Lab Results: Results Past 24 Hours Test 09/15/16 20:38 09/16/16 06:56 09/16/16 11:28 09/16/16 11:30 Range/Units Bedside Glucose 142 89 112 70-90 mg/dl White Blood Count 8.52 4.8-10.8 K/uL Red Blood Count 4.07 4.2-5.4 M/uL Hemoglobin 12.4 12.0-16.0 g/dL Hematocrit 37.0 37-47 % Mean Corpuscular Volume 90.9 80-100 fL Mean Corpuscular Hemoglobin 30.5 25-34 pg Mean Corpuscular Hemoglobin Concent 33.5 32-36 g/dl RDW Standard Deviation 48.2 36.4-46.3 fL RDW Coefficient of Variation 14.4 11.5-14.5 % Platelet Count 331 130-400 K/uL Mean Platelet Volume 10.7 7.4-10.4 fL Sodium Level 135 136-145 mmol/L Potassium Level 4.2 3.5-5.1 mmol/L Chloride Level 97 98-107 mmol/L Carbon Dioxide Level 26 21-32 mmol/L Anion Gap 12.0 3-11 mmol/L Blood Urea Nitrogen 38 7-18 mg/dl Creatinine 7.20 0.60-1.20 mg/dl Est Creatinine Clear Calc Drug Dose 11.7 ml/min Estimated GFR () 7.0 Estimated GFR (Non- 6.1 BUN/Creatinine Ratio 5.2 10-20 Random Glucose 123 70-99 mg/dl Calcium Level 9.2 8.5-10.1 mg/dl Magnesium Level 2.2 1.8-2.4 mg/dl
[2016-09-16] MEDS: CEFAZOLIN IV 2,000 MG in DEXTROSE 5% 50ML 50 ML IV SCH (16:44)
[2016-09-16] MEDS: RANITIDINE HCL 150 MG TAB PO SCH (20:16)
[2016-09-16] MEDS: INSULIN GLARGINE SOLOSTAR 100 UNITS/ML 3 ML PEN SC SCH (20:50)
[2016-09-16] MEDS ORDERED: SERTRALINE HCL 50 MG TAB PO SCH (21:00)
[2016-09-17] VITALS (20 sets, daily range): BP systolic 82–152; BP diastolic 39–84; PULSE 55–82; TEMP 36.5–36.9; O2SAT 94–98
[2016-09-17] MEDS: NITROGLYCERIN OINT 2% 1GM PACKET EXT SCH ×3 (01:30→13:00)
[2016-09-17 05:43] LABS: HEMATOCRIT 35.9 % (37-47); MEAN CELL VOLUME 92.1 fL (80-100); MEAN CORPUSCULAR HGB CONC 32.6 g/dl (32-36); MEAN PLATELET VOLUME 10.9 fL (7.4-10.4); PLATELET COUNT 329 K/uL (130-400); WHITE BLOOD COUNT 8.21 K/uL (4.8-10.8)
[2016-09-17] MEDS: HEPARIN SOD 5000 UNIT/0.5 ML CARP SQ SCH (05:45)
[2016-09-17 06:34] LABS: BUN/CREATININE RATIO 5.4 (10-20); CALCIUM 9.1 mg/dl (8.5-10.1); CREATININE 9.2 mg/dl (0.60-1.20); POTASSIUM 4.5 mmol/L (3.5-5.1)
[2016-09-17] MEDS: INSULIN ASPART 100 UNITS/ML 3 ML PEN SC SCH ×2 (07:00→11:03)
[2016-09-17] MEDS ORDERED: PARICALCITOL 5 MCG/ML VIAL (ZEMPLAR) IV. ONE (07:45)
--- NOTE | 2016-09-17 09:42 | Dialysis Progress Note ---
Nephrology Dialysis Note Date of Service: Sep 17, 2016. Subjective 50 yo female who came in with volume overload after not have dialysis for over a week. pt missed dialysis secondary to n/v/d. had dialysis for the last two days. volume status much improved. pt seen on dialysis today and bp started to drop with uf removal. had to stop uf and give fluids back. pt beginning to feel better. Objective Date Time Temp Pulse Resp B/P Pulse Ox O2 Delivery O2 Flow Rate FiO2 09/17/16 08:30 72 131/84 09/17/16 08:15 67 124/61 09/17/16 08:00 76 119/60 09/17/16 08:00 Room Air 09/17/16 07:45 71 116/62 09/17/16 07:43 36.8 76 18 94/58 98 Room Air 09/17/16 07:30 68 110/61 09/17/16 07:15 69 121/79 09/17/16 07:00 69 119/68 09/17/16 06:45 82 124/71 09/17/16 06:30 80 141/59 09/17/16 06:15 36.5 69 152/68 09/17/16 04:00 Room Air 09/17/16 03:55 36.9 55 18 97/39 96 Room Air 09/17/16 00:04 36.9 56 18 93/53 94 Room Air 09/16/16 23:59 Room Air 09/16/16 20:00 Room Air 09/16/16 19:20 36.9 58 16 111/63 95 09/16/16 16:31 37.0 56 18 114/63 90 Room Air 09/16/16 16:00 Room Air 09/16/16 12:00 Room Air 09/16/16 11:32 36.4 68 22 124/69 91 Room Air 09/16/16 10:28 71 113/70 09/16/16 10:12 36.9 56 131/72 09/16/16 10:00 56 110/72 09/16/16 09:45 80 109/59 Physical Exam: General-aaox3, obese Eyes-no scleral icterus ENT-mmm Neck-supple Lungs-cta Heart-rrr Abdomen-bs+ s/nt/nd Extremities-no edema Neuro-nonfocal Current Inpatient Medications Medications (Trade) Dose Ordered Sig/Bladimir Route Start Time Stop Time Status Last Admin Dose Admin Heparin Sodium (Porcine) (Heparin Sq 5000 Unit/0.5ml) 5,000 unit Q8 SQ 09/14/16 22:00 10/14/16 21:59 09/16/16 20:50 5,000 UNIT Acetaminophen (Tylenol Tab) 650 mg Q4H PRN PO 09/14/16 21:00 10/14/16 20:59 Ondansetron HCl (Zofran Inj) 4 mg Q6H PRN IV 09/14/16 21:00 10/14/16 20:59 09/16/16 10:58 4 MG Nitroglycerin (Nitroglycerin 2% Oint) 1 inch Q6H EXT 09/15/16 01:00 10/15/16 00:59 09/17/16 01:30 1 INCH Aspirin (Ecotrin Tab) 81 mg DAILY PO 09/15/16 09:00 09/16/16 10:29 81 MG Atorvastatin Calcium (Lipitor Tab) 40 mg DAILY PO 09/15/16 09:00 10/15/16 08:59 09/16/16 10:29 40 MG Calcium Acetate (Phoslo Cap) 667 mg TIDM PO 09/15/16 07:30 10/15/16 07:59 09/16/16 16:43 667 MG Clopidogrel Bisulfate (plAVix TAB) 75 mg DAILY PO 09/15/16 09:00 09/16/16 10:29 75 MG Lorazepam (Ativan Tab) 0.5 mg DAILY PRN PO 09/14/16 21:15 10/14/16 21:14 Methocarbamol (Robaxin Tab) 500 mg BID PRN PO 09/14/16 21:15 10/14/16 21:14 09/15/16 22:07 500 MG Metoprolol Tartrate (Lopressor Tab) 50 mg BID PO 09/15/16 09:00 09/16/16 20:14 50 MG Ranitidine HCl (zANTac TAB) 300 mg HS PO 09/15/16 21:00 10/15/16 20:59 09/16/16 20:16 300 MG Tramadol HCl (Ultram Tab) 50 mg TID PRN PO 09/14/16 21:15 10/14/16 21:14 09/15/16 22:07 50 MG Insulin Aspart (novoLOG ASPART) SLIDING SCALE If C... ACHS SC 09/15/16 07:00 10/15/16 06:59 09/16/16 16:47 6 UNITS Glucose (Glucose 40% Gel) 15-30 GRAMS 15 GRAMS... UD PRN PO 09/14/16 21:30 10/14/16 21:29 Glucose (Glucose Chew Tab) 4-8 Tablets 4 Tabl... UD PRN PO 09/14/16 21:30 10/14/16 21:29 Dextrose (Dextrose 50% 50ML Syringe) 25-50ML OF 50% DW IV FOR... UD PRN IV 09/14/16 21:30 10/14/16 21:29 Glucagon (Glucagon Inj) 1 mg UD PRN SQ 09/14/16 21:30 10/14/16 21:29 Insulin Glargine (Lantus Solostar Pen) 5 unit HS SC 09/15/16 21:00 10/15/16 20:59 09/16/16 20:50 5 UNIT Miscellaneous Information 1 ea UD PRN N/A 09/14/16 21:45 10/14/16 21:44 Metoprolol Tartrate 5 mg 5 mg Q4 PRN IV 09/14/16 22:30 10/14/16 22:29 09/15/16 15:34 5 MG Cefazolin Sodium 2000 mg/Dextrose 60 ml @ 110 mls/hr DAILY@1700 IV 09/15/16 17:00 09/23/16 17:33 09/16/16 16:44 110 MLS/HR Promethazine HCl/ Sodium Chloride (Phenergan Inj/ Nss 50ml) 50.5 ml @ 204 mls/hr Q6H PRN IV 09/15/16 18:45 10/15/16 18:44 Sertraline HCl (Zoloft Tab) 100 mg HS PO 09/16/16 21:00 10/15/16 08:59 09/16/16 20:15 100 MG Last 24 Hours Test 09/16/16 11:28 09/16/16 11:30 09/16/16 16:14 09/16/16 20:05 Bedside Glucose 112 mg/dl 159 mg/dl 114 mg/dl White Blood Count 8.52 K/uL Red Blood Count 4.07 M/uL Hemoglobin 12.4 g/dL Hematocrit 37.0 % Mean Corpuscular Volume 90.9 fL Mean Corpuscular Hemoglobin 30.5 pg Mean Corpuscular Hemoglobin Concent 33.5 g/dl RDW Standard Deviation 48.2 fL RDW Coefficient of Variation 14.4 % Platelet Count 331 K/uL Mean Platelet Volume 10.7 fL Sodium Level 135 mmol/L Potassium Level 4.2 mmol/L Chloride Level 97 mmol/L Carbon Dioxide Level 26 mmol/L Anion Gap 12.0 mmol/L Blood Urea Nitrogen 38 mg/dl Creatinine 7.20 mg/dl Est Creatinine Clear Calc Drug Dose 11.7 ml/min Estimated GFR () 7.0 Estimated GFR (Non- 6.1 BUN/Creatinine Ratio 5.2 Random Glucose 123 mg/dl Calcium Level 9.2 mg/dl Magnesium Level 2.2 mg/dl Test 09/17/16 05:12 09/17/16 06:34 White Blood Count 8.21 K/uL Red Blood Count 3.90 M/uL Hemoglobin 11.7 g/dL Hematocrit 35.9 % Mean Corpuscular Volume 92.1 fL Mean Corpuscular Hemoglobin 30.0 pg Mean Corpuscular Hemoglobin Concent 32.6 g/dl RDW Standard Deviation 48.1 fL RDW Coefficient of Variation 14.4 % Platelet Count 329 K/uL Mean Platelet Volume 10.9 fL Sodium Level 134 mmol/L Potassium Level 4.5 mmol/L Chloride Level 98 mmol/L Carbon Dioxide Level 25 mmol/L Anion Gap 11.0 mmol/L Blood Urea Nitrogen 50 mg/dl Creatinine 9.20 mg/dl Est Creatinine Clear Calc Drug Dose 8.9 ml/min Estimated GFR () 5.2 Estimated GFR (Non- 4.5 BUN/Creatinine Ratio 5.4 Random Glucose 178 mg/dl Calcium Level 9.1 mg/dl Bedside Glucose 126 mg/dl Assessment & Plan ESRD-seen on dialysis. appropriate fluid removal. volume status much improved. access working well. bp is low and stopped uf and giving fluids back. pt clotted with twenty minutes left and took off early. ok from renal perspective to go home once medically cleared by primary hospitalist. Anemia of renal failure-hg of 11.7 and no procrit given today. OSIRIS-given zemplar today since missed hectoral dosing last week.
[2016-09-17] MEDS: ASPIRIN 81 MG ECTAB PO SCH (10:13)
[2016-09-17] MEDS: ATORVASTATIN 40 MG TAB PO SCH (10:13)
[2016-09-17] MEDS: CALCIUM ACETATE 667MG GELCAP PO SCH ×2 (10:13→11:32)
[2016-09-17] MEDS: METOPROLOL TARTRATE 50 MG TAB PO SCH (10:14)
[2016-09-17] MEDS: CLOPIDOGREL BISULFATE 75 MG TAB PO SCH (10:14)
--- NOTE | 2016-09-17 12:19 | Discharge Instructions ---
Discharge Instructions Admission Reason for Admission: Esrd, Hyperkalemia Discharge Discharge Diagnosis / Problem: Hyperkalemia Discharge Goals Goal(s): Decrease discomfort, Improve function Activity Recommendations Activity Limitations: resume your previous activity . Instructions / Follow-Up Instructions / Follow-Up FOLLOWUP WITH FAMILY DOCTOR ON Aug AT 10:50AM FOLLOWUP WITH ORTHOPEDICS SCHEDULED. FOLLOWUP WITH VASCULAR SURGERY IN 2 WEEKS. Current Hospital Diet Patient's current hospital diet: AHA Diet (Heart Healthy), Diabetes Type 2 Diet , Renal Diet, Low Potassium Diet (2g K) Discharge Diet Recommended Diet: Diabetes Type 2 Diet, Renal Diet Pending Studies Studies pending at discharge: no Medical Emergencies . Who to Call and When: Medical Emergencies: If at any time you feel your situation is an emergency, please call 911 immediately. . Non-Emergent Contact Non-Emergency issues call your: Primary Care Provider . . "Provider Documentation" section prepared by Chai Canchola. VTE Core Measure Inpt VTE Proph given/why not?: Unfractionated heparin SQ (DECLINED)
--- NOTE | 2016-09-17 19:26 | Progress Note ---
Internal Med Progress Note Date of Service: Sep 17, 2016. Provider Documentation: SUBJECTIVE: resting comfortably denies any chest pain or sob afebrile ok to go home OBJECTIVE: Vital Signs-as noted below Exam: General-alert and oriented ENT-normal hearing Neck-no neck masses Lungs-cta b/l no wheezing or crackles Heart-s1 and s2 heard regular rate and rhythm no murmurs Abdomen-soft bowel sounds present non tender no distension Extremities-no erythema no edema Neuro-alert and awake moves extremities Lab data as noted below. ASSESSMENT & PLAN: HYPERKALEMIA with ESRD Missed Dialysis since Aug Generally weak and lethargic EKG changes-resolved Received Insulin and Dextrose had dialysis resolved f/u with nephrology SHORTNESS OF BREATH Most likely secondary to volume overload in setting of ESRD with noncompliance with dialysis s/p dialysis improved Left Internal Carotid artery stenosis vascular recommends surgery f/u with vascular surgery in 2 weeks CHEST PAIN- history of CAD Has had bare metal stent placed March 2016 ELEVATED TROPONIN -renal failure contributing EKG changes secondary to Increased K Currently chest pain free continuing home meds stable HYPERTENSIVE URGENCY -SBP >190s Has been noncompliant with home BP meds for weeks to months Improved BP with nitro paste,and home meds BP is controlled discharged on home meds followup with PCP. RIGHT 2ND FINGER INFECTION has seen by [facility] and [facility] no spreading cellulitis to continue current antibiotic appreciate Vascular surgery input has appointment with orthopedics DIARRHEA c diff negative IDDM recent A1c 7.2 d/c on home meds GERD on Zantac HLD Statin DEPRESSION on Zoloft discharged home Vital Signs: Date Time Temp Pulse Resp B/P Pulse Ox O2 Delivery O2 Flow Rate FiO2 09/17/16 12:27 36.8 68 18 95 Room Air 09/17/16 12:00 Room Air 09/17/16 11:50 36.8 68 18 93/60 95 09/17/16 09:47 36.7 81 124/72 09/17/16 09:15 74 116/71 09/17/16 09:05 69 106/61 09/17/16 09:00 68 82/40 09/17/16 08:45 68 112/59 09/17/16 08:30 72 131/84 09/17/16 08:15 67 124/61 09/17/16 08:00 76 119/60 09/17/16 08:00 Room Air 09/17/16 07:45 71 116/62 09/17/16 07:43 36.8 76 18 94/58 98 Room Air 09/17/16 07:30 68 110/61 09/17/16 07:15 69 121/79 09/17/16 07:00 69 119/68 09/17/16 06:45 82 124/71 09/17/16 06:30 80 141/59 09/17/16 06:15 36.5 69 152/68 09/17/16 04:00 Room Air 09/17/16 03:55 36.9 55 18 97/39 96 Room Air 09/17/16 00:04 36.9 56 18 93/53 94 Room Air 09/16/16 23:59 Room Air 09/16/16 20:00 Room Air Lab Results: Results Past 24 Hours Test 09/16/16 20:05 09/17/16 05:12 09/17/16 06:34 09/17/16 09:56 Range/Units Bedside Glucose 114 126 180 70-90 mg/dl White Blood Count 8.21 4.8-10.8 K/uL Red Blood Count 3.90 4.2-5.4 M/uL Hemoglobin 11.7 12.0-16.0 g/dL Hematocrit 35.9 37-47 % Mean Corpuscular Volume 92.1 80-100 fL Mean Corpuscular Hemoglobin 30.0 25-34 pg Mean Corpuscular Hemoglobin Concent 32.6 32-36 g/dl RDW Standard Deviation 48.1 36.4-46.3 fL RDW Coefficient of Variation 14.4 11.5-14.5 % Platelet Count 329 130-400 K/uL Mean Platelet Volume 10.9 7.4-10.4 fL Sodium Level 134 136-145 mmol/L Potassium Level 4.5 3.5-5.1 mmol/L Chloride Level 98 98-107 mmol/L Carbon Dioxide Level 25 21-32 mmol/L Anion Gap 11.0 3-11 mmol/L Blood Urea Nitrogen 50 7-18 mg/dl Creatinine 9.20 0.60-1.20 mg/dl Est Creatinine Clear Calc Drug Dose 8.9 ml/min Estimated GFR () 5.2 Estimated GFR (Non- 4.5 BUN/Creatinine Ratio 5.4 10-20 Random Glucose 178 70-99 mg/dl Calcium Level 9.1 8.5-10.1 mg/dl Test 09/17/16 11:22 Range/Units Bedside Glucose 205 70-90 mg/dl
--- NOTE | 2016-09-17 19:39 | Discharge Summary ---
Discharge Summary Admission Date: Sep 14, 2016 at 20:25 Discharge Date: Sep 17, 2016 Discharge Disposition: Home Principal Diagnosis: hyperkalemia sob-from volume overload Secondary Diagnoses/Problems: (1) Allergic rhinitis Status: Chronic (2) DM type 2 (diabetes mellitus, type 2) Status: Chronic (3) Dyslipidemia Status: Chronic (4) ESRD (end stage renal disease) on dialysis Status: Chronic (5) GERD (gastroesophageal reflux disease) Status: Chronic (6) HTN (hypertension) Status: Chronic (7) HX OF PAST NONCOMPLIANCE Status: Chronic (8) Morbid obesity Status: Chronic (9) Tobacco use disorder Status: Chronic Procedures: CXR:Stable cardiomegaly and pulmonary vascular congestion. Consultations: NEPHROLOGY Medication Reconciliation Continued Medications: Aspirin (Aspirin Ec) 81 Mg Tab 81 MG PO DAILY Atorvastatin (Lipitor) 20 Mg Tab 40 MG PO DAILY, TAB Calcium Acetate (Phoslo 667 Mg) 667 Mg Cap 1 CAP PO WM, CAP Cephalexin Monohydrate (Cephalexin) 1 Homepack Ea 1 CAP PO BID, #20 PT IS NOT TAKING THE OTHER MEDS UNTIL SHE FINISHED TAKING THIS Clopidogrel Bisulfate (Plavix) 75 Mg Tab 1 TAB PO DAILY for 90 Days, #90 TAB 1 Refill Insulin Glargine (Lantus Solostar) 100 Unit/Ml Inj 10 UNITS SC QPM, PEN Isosorbide Mononitrate (Isosorbide Mononitrate ER) 30 Mg Tabcr 60 MG PO QAM Isosorbide Mononitrate Ext Rel (Imdur Ext Rel) 30 Mg Ertab 30 MG PO QAM, TAB Lorazepam (Ativan) 1 Mg Tab 0.5 MG PO DAILY PRN for Anxiety, TAB Methocarbamol (Methocarbamol) 500 Mg Tab 500 MG PO BID PRN for Muscle Spasms Metoprolol Tartrate (Lopressor) 25 Mg Tab 50 MG PO BID, TAB Ranitidine Hcl (Zantac) 150 Mg Tab 300 MG PO HS, TAB Sertraline HCl (Sertraline HCl) 50 Mg Tab 2 TAB PO DAILY for 30 Days, #60 TAB 5 Refills Tramadol (Ultram) 50 Mg Tab 1 TAB PO TID PRN for Pain for 30 Days, #90 TAB Admission Information HPI (per Admitting provider): Patient seen and examined. 50 year old female with PMHx of ESRD on HD, CAD s/p bare metal stent in 04/06, DM2, HTN, HLD, Depression,h/o noncompliance, and other problems listed below presents to the ED complaining of SOB prior to arrival. Patient reports that she missed her last three dialysis sessions. She reports that she stopped going because she was having nausea and diarrhea for the past 4-5 days. She states that she has at least 5 episodes of vomiting per day. She states she didn't want to have to be unhooked from dialysis to go to the bathroom so she just didn't go. She states today she started noticing that she was getting SOB with minimal exertion. She also states she had some chest discomfort in the left side of her chest that she rated as a 2-3/10 and described as dull. She also reports that she feels bloated and has been having orthopnea at night. Patient has been taking Keflex for a right second finger infection. She states that she was told at the pharmacy that she was not to take any of her other medications while on the Keflex so she has been only taking aspirin d/t her stents. She then however states she has not been taking her medications for at least a month. She denies fevers, chills, URI symptoms, palpitations, vomiting, dysuria, calf pain. In the ED patient is hypertensive, crea is 17, potassium is 5.9, and bicarb is 16. Troponin is 0.236, and there are ST changes on EKG. She was given nitropaste which alleviated her chest pain. She will be admitted for further workup and treatment. Physical Exam (per Admitting): General Appearance: + pertinent finding (WD/WN 50 year old female lying in bed in NAD ) Head: normocephalic, atraumatic Eyes: PERRL, EOMI, sclerae normal ENT: hearing grossly normal, pharynx normal Neck: supple, no JVD Respiratory/Chest: chest non-tender, lungs clear, normal breath sounds, no respiratory distress, no accessory muscle use Cardiovascular: regular rate, rhythm, no gallop, no JVD, no murmur, normal peripheral pulses Abdomen/GI: normal bowel sounds, non tender, soft Back: normal inspection, no muscle spasm Extremities/Musculoskelatal: no calf tenderness, normal capillary refill, + pedal edema (trace to +1 BL ), + pertinent finding (dressing to right index finger I/C/D ) Neurologic/Psych: alert, oriented x 3, + pertinent finding (no motor or sensory deficits noted on gross exam ) Skin: normal color, warm/dry, no rash Lymphatic: no adenopathy Physical Exam (per Admitting): General Appearance: + pertinent finding (WD/WN 50 year old female lying in bed in NAD ) Head: normocephalic, atraumatic Eyes: PERRL, EOMI, sclerae normal ENT: hearing grossly normal, pharynx normal Neck: supple, no JVD Respiratory/Chest: chest non-tender, lungs clear, normal breath sounds, no respiratory distress, no accessory muscle use Cardiovascular: regular rate, rhythm, no gallop, no JVD, no murmur, normal peripheral pulses Abdomen/GI: normal bowel sounds, non tender, soft Back: normal inspection, no muscle spasm Extremities/Musculoskelatal: no calf tenderness, normal capillary refill, + pedal edema (trace to +1 BL ), + pertinent finding (dressing to right index finger I/C/D ) Neurologic/Psych: alert, oriented x 3, + pertinent finding (no motor or sensory deficits noted on gross exam ) Skin: normal color, warm/dry, no rash Lymphatic: no adenopathy Hospital Course HYPERKALEMIA with ESRD Missed Dialysis since Aug Generally weak and lethargic EKG changes-resolved Received Insulin and Dextrose had dialysis resolved f/u with nephrology SHORTNESS OF BREATH Most likely secondary to volume overload in setting of ESRD with noncompliance with dialysis s/p dialysis improved Left Internal Carotid artery stenosis vascular recommends surgery f/u with vascular surgery in 2 weeks CHEST PAIN- history of CAD Has had bare metal stent placed March 2016 ELEVATED TROPONIN -renal failure contributing EKG changes secondary to Increased K Currently chest pain free continuing home meds stable HYPERTENSIVE URGENCY -SBP >190s Has been noncompliant with home BP meds for weeks to months Improved BP with nitro paste,and home meds BP is controlled discharged on home meds followup with PCP. RIGHT 2ND FINGER INFECTION has seen by [facility] surgery and [facility] no spreading cellulitis to continue current antibiotic appreciate Vascular surgery input has appointment with orthopedics DIARRHEA c diff negative IDDM recent A1c 7.2 d/c on home meds GERD on Zantac HLD Statin DEPRESSION on Zoloft discharged home Total time spent on discharge = 35MINUTES This includes examination of the patient, discharge planning, medication reconciliation, and communication with other providers. Discharge Instructions Discharge Instructions Admission Reason for Admission: Esrd, Hyperkalemia Discharge Discharge Diagnosis / Problem: Hyperkalemia Discharge Goals Goal(s): Decrease discomfort, Improve function Activity Recommendations Activity Limitations: resume your previous activity . Instructions / Follow-Up Instructions / Follow-Up FOLLOWUP WITH FAMILY DOCTOR ON Aug AT 10:50AM FOLLOWUP WITH ORTHOPEDICS SCHEDULED. FOLLOWUP WITH VASCULAR SURGERY IN 2 WEEKS. Current Hospital Diet Patient's current hospital diet: AHA Diet (Heart Healthy), Diabetes Type 2 Diet , Renal Diet, Low Potassium Diet (2g K) Discharge Diet Recommended Diet: Diabetes Type 2 Diet, Renal Diet Pending Studies Studies pending at discharge: no Medical Emergencies . Who to Call and When: Medical Emergencies: If at any time you feel your situation is an emergency, please call 911 immediately. . Non-Emergent Contact Non-Emergency issues call your: Primary Care Provider . . "Provider Documentation" section prepared by Chai Canchola. VTE Core Measure Inpt VTE Proph given/why not?: Unfractionated heparin SQ (DECLINED)
[2016-10-01] MEDS ORDERED: PRED10TA PO (15:48)
[2016-10-29] MEDS ORDERED: LCTX PO (12:40)
[2016-10-29] MEDS ORDERED: LVQ500 PO (12:40)
[2016-10-29] MEDS ORDERED: MYC10 MT (12:40)
[2016-10-29] MEDS ORDERED: MTR500 PO (12:40)
[2016-10-29] MEDS ORDERED: ONDA4TAB46 PO (12:40)
[2016-12-13] MEDS ORDERED: LEVO1TAB34 PO (13:44)
[2017-01-18] MEDS ORDERED: LEVO1TAB33 PO (11:06)
[2017-02-09] MEDS ORDERED: DOXY-300 PO (11:08)
[2017-03-31] MEDS ORDERED: LPT/40 PO (09:13)
[2017-03-31] MEDS ORDERED: LORA5CHW10 PO (09:13)
[2017-03-31] MEDS ORDERED: SERT1TAB68 PO (09:13)
[2017-03-31] MEDS ORDERED: FLUT50SP45 (09:13)
[2017-03-31] MEDS ORDERED: DICY10CA12 PO (11:36)
[2017-03-31] MEDS ORDERED: PANT40TA PO (11:36)
[2017-03-31] MEDS ORDERED: METO50TA16 PO (14:18)
[2017-03-31] MEDS ORDERED: TRMCR515 TOP (14:18)
[2017-03-31] MEDS ORDERED: ASPI-435 PO (15:36)
[2017-03-31] MEDS ORDERED: INSDGIPEN SC (21:11)
[2017-04-28] MEDS ORDERED: TPRSR/50 PO (13:22)
== END 2016-09-17 13:59 | disposition home or self-care (01) | DRG 640 ==
LOC: ENRESERVTM → ENRESERVDT → C.EDB 18:12 → C.2E 20:25
PROVIDERS: ADMIT Hospitalist; ATTEND Internal Medicine
DX: E87.5 Hyperkalemia (principal); N18.6 End stage renal disease; I12.0 Hypertensive chronic kidney disease with stage 5 chronic kidney disease or end stage renal disease; I96 Gangrene, not elsewhere classified; R19.7 Diarrhea, unspecified; I16.0 Hypertensive urgency; R07.9 Chest pain, unspecified; R79.89 Other specified abnormal findings of blood chemistry; R06.02 Shortness of breath; E78.5 Hyperlipidemia, unspecified; K21.9 Gastro-esophageal reflux disease without esophagitis; E11.9 Type 2 diabetes mellitus without complications; E66.01 Morbid (severe) obesity due to excess calories; J30.9 Allergic rhinitis, unspecified; I65.22 Occlusion and stenosis of left carotid artery; I25.10 Atherosclerotic heart disease of native coronary artery without angina pectoris; D63.1 Anemia in chronic kidney disease; F32.9 Major depressive disorder, single episode, unspecified; Z79.4 Long term (current) use of insulin; Z99.2 Dependence on renal dialysis; Z87.891 Personal history of nicotine dependence; Z79.82 Long term (current) use of aspirin; Z87.01 Personal history of pneumonia (recurrent); Z83.3 Family history of diabetes mellitus; Z82.49 Family history of ischemic heart disease and other diseases of the circulatory system

== ENCOUNTER 2016-09-21 11:23 | Inpatient (IN) | payer OTHER ==
[2016-09-21] VITALS (13 sets, daily range): BP systolic 97–219; BP diastolic 47–123; PULSE 53–76; TEMP 36.5; O2SAT 92; Ht 167.6 cm; Wt 104.7 kg
[~2016-09-21] VITALS: Ht 167.6 cm; Wt 104.7 kg
[~2016-09-21 11:23] MED LIST changes: +ATOR-54 PO; -CALC667C PO; +CLOP1TAB5 PO; -CLR10 PO; -HYDR-5688 PO; -INSDGIPEN SC; -ISOS30TA35 PO; -ISOS60TA25 PO; +KFL500HP PO; +LPR25 PO; -LPT40 PO; -METO50TA16 PO; -OXYC-57 PO; +RANI150T3 PO; -RANI300T PO; +RBX500 PO; +TRAM-10 PO; -VNCS125 PO; -ZLF/100 PO; +ZLF50 PO
--- NOTE | 2016-09-21 12:01 | EMERGENCY ROOM VISIT NOTE ---
History Report prepared by Aleksandra: Carissa Wang Under the Supervision of: Dr. Mara Rick M.D. First contact with patient: 11:45 Chief Complaint: CHEST PAIN Stated Complaint: CHEST PAIN History of Present Illness The patient is a 50 year old female who presents to the Emergency Room with complaints of persistent left hand numbness and pain that began prior to arrival. She currently rates her discomfort as a 10/10 in severity. The patient states that while she was taking a shower this morning she developed severe left hand numbness and pain. She states that after that she developed the chest pain. The patient states that she vomited after all the pain. She notes an improving area on her right hand that was purple. The patient states that she had a previous MN and had a stent placed. The patient states that she had a fistula placed by Dr. Jones, Vascular Surgery. She states that he is supposed to do a surgery on her carotid artery. Source of History: patient Onset: prior to arrival Position: hand (left) Symptom Intensity: 10/10 Quality: numbness Timing: other (persistent) Associated Symptoms: + chest pain, + vomiting Review of Systems See HPI for pertinent positives & negatives. A total of 10 systems reviewed and were otherwise negative. Past Medical & Surgical Medical Problems: (1) Allergic rhinitis (2) CAD (coronary artery disease) (3) Carotid stenosis (4) DM type 2 (diabetes mellitus, type 2) (5) Dyslipidemia (6) ESRD (end stage renal disease) on dialysis (7) GERD (gastroesophageal reflux disease) (8) HTN (hypertension) (9) HX OF PAST NONCOMPLIANCE (10) Ischemic cardiomyopathy (11) Morbid obesity (12) Tobacco use disorder Surgical Problems: (1) Hemodialysis access, AV graft Family History Diabetes mellitus FATHER MOTHER Heart disease FATHER MOTHER Hypertension FATHER MOTHER Kidney disease GRANDMOTHER Social History Smoking Status: Former Smoker Alcohol Use: none Drug Use: none Marital Status: Housing Status: lives with family Occupation Status: unemployed Current/Historical Medications Scheduled Aspirin (Aspirin Ec), 81 MG PO DAILY Atorvastatin (Lipitor), 40 MG PO DAILY Calcium Acetate (Phoslo 667 Mg), 1 CAP PO WM Cephalexin Monohydrate (Cephalexin), 1 CAP PO BID Clopidogrel Bisulfate (Plavix), 1 TAB PO DAILY Insulin Glargine (Lantus Solostar), 10 UNITS SC QPM Isosorbide Mononitrate (Isosorbide Mononitrate ER), 60 MG PO QAM Isosorbide Mononitrate Ext Rel (Imdur Ext Rel), 30 MG PO QAM Metoprolol Tartrate (Lopressor), 50 MG PO BID Ranitidine Hcl (Zantac), 300 MG PO HS Sertraline HCl (Sertraline HCl), 2 TAB PO DAILY Scheduled PRN Lorazepam (Ativan), 0.5 MG PO DAILY PRN for Anxiety Methocarbamol (Methocarbamol), 500 MG PO BID PRN for Muscle Spasms Tramadol (Ultram), 1 TAB PO TID PRN for Pain Allergies Coded Allergies: Adhesives (Verified Allergy, Mild, RASH, SORES, 09/21/16) Pollen Extract (Unverified Allergy, Unknown, rash, 09/21/16) Physical Exam Vital Signs Date Time Temp Pulse Resp B/P Pulse Ox O2 Delivery O2 Flow Rate FiO2 09/21/16 14:23 78 21 100 09/21/16 13:59 105/63 09/21/16 13:53 75 17 95 09/21/16 13:29 141/105 09/21/16 13:23 76 16 99 09/21/16 13:04 163/92 09/21/16 13:04 76 20 163/92 100 09/21/16 13:03 /51 09/21/16 13:00 130/111 09/21/16 12:00 100 Room Air 09/21/16 11:59 146/66 09/21/16 11:53 74 16 96 09/21/16 11:48 170/78 09/21/16 11:41 76 09/21/16 11:29 100 Room Air 09/21/16 11:26 216/97 09/21/16 11:23 36.5 77 20 216/97 100 Room Air Physical Exam Vital signs reviewed. General: Chronically ill-appearing female, in no significant distress. HEENT: No scleral icterus, PERRLA, neck supple. Atraumatic. Cardiovascular: Regular rate and rhythm, no extra sounds. Pulmonary: Clear to auscultation bilaterally, normal work of breathing. Abdomen: Soft, nontender, nondistended, positive bowel sounds. Musculoskeletal: Pale and cool middle finger on the left hand from the MCP joint more distally. Necrotic area to the tip of the right index finger with no sign of infection Neurologic: Patient awake alert and oriented x 3, full strength in all 4 extremities. Cranial nerves 2 through 12 grossly intact. Skin: Warm, dry, no rash Medical Decision & Procedures ER Provider Diagnostic Interpretation: X-ray results as stated below per my interpretation and radiologist interpretation. Other radiology results as stated below per my review and radiologist interpretation: Arterial Doppler left arm LEFT ART DOP DUP UPPER EXT UNI CLINICAL HISTORY: cyanotic L middle finger, painful. ESRD dialysis cyanotic and painful fingers TECHNIQUE: Arterial Doppler COMPARISON STUDY: None FINDINGS: Patient is status post left brachial arterial fistula. The proximal arterial structures of the a left arm appear unremarkable in terms of arterial flow Appear to be somewhat dampened flow within the fistula with velocities decreasing to 43 cm/s. Arterial flow within the arterial structures of the forearm appear somewhat dampened.. Distal radial arterial velocities diminished to 16 cm/s. IMPRESSION: 1. No significant stenotic process of the arm. 2. The patient's left brachial arterial fistula shows normal antegrade flow, although velocity characteristics are diminished consistent with at least a moderate stenotic process. 3. Dampened flow within the arterial structures of the distal forearm and palm, suggesting the possibility of significant stenotic change at the level of the fistula, as well as within the distal radial distribution at the level of the palm and wrist Electronically signed by: Edmundo Lam M.D. 09/21/2016 1:12 PM Dictated Date/Time: 09/21/2016 1:08 PM Laboratory Results Test 09/21/16 11:30 09/21/16 11:40 09/21/16 12:07 Prothrombin Time 12.1 SECONDS (9.0-12.0) Prothromb Time International Ratio 1.1 (0.9-1.1) Activated Partial Thromboplast Time 30.2 SECONDS (21.0-31.0) Partial Thromboplastin Ratio 1.2 Total Bilirubin 0.4 mg/dl (0.2-1) Direct Bilirubin 0.1 mg/dl (0-0.2) Aspartate Amino Transf (AST/SGOT) 11 U/L (15-37) Alanine Aminotransferase (ALT/SGPT) 6 U/L (12-78) Alkaline Phosphatase 81 U/L (45-117) Total Creatine Kinase 44 U/L (26-192) Total Protein 8.5 gm/dl (6.4-8.2) Albumin 3.2 gm/dl (3.4-5.0) Lipase 237 U/L (73-393) Bedside Lactic Acid Venous 2.67 mmol/L (0.90-1.70) Bedside Troponin I 0.180 ng/ml (0-0.045) Laboratory results per my review. ECG Indication: chest pain Rate (beats per minute): 78 Rhythm: normal sinus Findings: no acute ischemic change, no ectopy ED Course 1156: Past medical records reviewed. The patient was evaluated in room C5. A complete history and physical examination was performed. 1320: I reevaluated the patient and she is resting comfortably. I discussed the exam findings with her and I discussed the treatment plan. She verbalized complete understanding and agreement. She is going to be evaluated for further treatment. 1330: I discussed the patients case with Clark Comer PA-C. She states that they will see the patient tomorrow and consult. 1344: I discussed the patient's case with Yovani Lin. She is going to evaluate the patient for further treatment. Medical Decision The patient is a 50 year old female who presents to the ED with complaints of left hand pain and numbness. Differentials include arterial clot, cellulitis, DVT, Raynaud's, vasculitis. This patient was evaluated and appeared to be in no distress. IV access was obtained and laboratory work was drawn. The patient was placed on the monitor technician. Laboratory work reveals an elevated troponin of 0.2 however the patient's troponin was elevated on her last visit as well. This may be secondary to her end-stage renal disease. EKG reveals a sinus rhythm with previous inferior infarct and no evidence of acute ischemia. Ultrasound of the left upper extremity reveals stenosis of the fistula however no evidence of arterial emboli. Case was discussed with the vascular surgery staff, Cuca Helm PA-C. Due to the patient's elevated troponin, chest pain and vomiting, she will be admitted to the hospitalist service and vascular surgery will consult. Patient was made aware of the plan and agrees. Consults Time Called: 1319 Consulting Physician: Clark Comer PA-C Returned Call: 1330 I discussed the patients case with Clark Comer PA-C. She states that they will see the patient tomorrow and consult. Additional Consults: Time Called: 1327 Consulted Physician: Yovani Lin Returned Call: 1344 Additional Comments: I discussed the patient's case with Yovani Lin. She is going to evaluate the patient for further treatment. Impression Primary Impression: Left sided chest pain Additional Impressions: Vomiting Limb ischemia Elevated troponin Scribe Attestation The scribe's documentation has been prepared under my direction and personally reviewed by me in its entirety. I confirm that the note above accurately reflects all work, treatment, procedures, and medical decision making performed by me. Departure Information Dispostion Being Evaluated By Hospitalist Referrals Tamy Becerra D.O. (PCP) Problem Qualifiers Additional Impressions: Vomiting Vomiting type: unspecified Vomiting Intractability: non-intractable Nausea presence: with nausea Qualified Codes: R11.2 - Nausea with vomiting, unspecified
[2016-09-21 12:06] LABS: BASO % 0.2 %; BASO ABS # 0.03 K/uL (0-0.2); COMPLETE YES; EOS % 0.9 %; HEMATOCRIT 35.8 % (37-47); IG% 0.3 %; LYMPH % 8.3 %; LYMPH ABS # 1.43 K/uL (1.2-3.4); MEAN CELL VOLUME 90.6 fL (80-100); MEAN CORPUSCULAR HEMOGLOBIN 30.4 pg (25-34); MEAN CORPUSCULAR HGB CONC 33.5 g/dl (32-36); MEAN PLATELET VOLUME 11.1 fL (7.4-10.4); MONO % 4.5 %; NEUT % 85.8 %; PLATELET COUNT 344 K/uL (130-400); RED BLOOD COUNT 3.95 M/uL (4.2-5.4); WHITE BLOOD COUNT 17.26 K/uL (4.8-10.8)
[2016-09-21 12:19] LABS: INR 1.1 (0.9-1.1); PARTIAL THROMBOPLASTIN RATIO 1.2; PROTHROMBIN TIME (PATIENT) 12.1 SECONDS (9.0-12.0)
[2016-09-21 13:06] LABS: CALCIUM 9.6 mg/dl (8.5-10.1); CKMB/CK RATIO 5.5 (0-3.0); MAGNESIUM 2.6 mg/dl (1.8-2.4); POTASSIUM 5.5 mmol/L (3.5-5.1)
--- NOTE | 2016-09-21 13:14 | DIAGNOSTIC IMAGING REPORT ---
Arterial Doppler left arm LEFT ART DOP DUP UPPER EXT UNI CLINICAL HISTORY: cyanotic L middle finger, painful. ESRD dialysis cyanotic and painful fingers TECHNIQUE: Arterial Doppler COMPARISON STUDY: None FINDINGS: Patient is status post left brachial arterial fistula. The proximal arterial structures of the a left arm appear unremarkable in terms of arterial flow Appear to be somewhat dampened flow within the fistula with velocities decreasing to 43 cm/s. Arterial flow within the arterial structures of the forearm appear somewhat dampened.. Distal radial arterial velocities diminished to 16 cm/s. IMPRESSION: 1. No significant stenotic process of the arm. 2. The patient's left brachial arterial fistula shows normal antegrade flow, although velocity characteristics are diminished consistent with at least a moderate stenotic process. 3. Dampened flow within the arterial structures of the distal forearm and palm, suggesting the possibility of significant stenotic change at the level of the fistula, as well as within the distal radial distribution at the level of the palm and wrist Electronically signed by: Edmundo Lam M.D. 09/21/2016 1:12 PM Dictated Date/Time: 09/21/2016 1:08 PM
[2016-09-21] MEDS ORDERED: ACETAMINOPHEN 325 MG TAB PO PRN (14:30)
[2016-09-21] MEDS ORDERED: ONDANSETRON INJ 2 MG/ML 2 ML VIAL IV PRN (14:30)
[2016-09-21] MEDS ORDERED: METOPROLOL TARTRATE 50 MG TAB PO ONE (14:36)
--- NOTE | 2016-09-21 14:40 | DIAGNOSTIC IMAGING REPORT ---
CHEST ONE VIEW PORTABLE CLINICAL HISTORY: chest pain dyspnea COMPARISON STUDY: 09/14/2016 FINDINGS: The bones soft tissues and hemidiaphragms are normal. The cardiomediastinal silhouette is normal. The lungs are clear. The pulmonary vasculature is normal. IMPRESSION: Negative chest. Electronically signed by: Edmundo Lam M.D. 09/21/2016 2:39 PM Dictated Date/Time: 09/21/2016 2:39 PM
[2016-09-21] MEDS ORDERED: METOPROLOL TARTRATE 50 MG TAB ONE (14:43)
[2016-09-21] MEDS ORDERED: TRAMADOL HCL 50 MG TAB PO PRN (14:45)
[2016-09-21] MEDS ORDERED: LORAZEPAM 0.5 MG TAB PO PRN (14:45)
--- NOTE | 2016-09-21 15:02 | DIAGNOSTIC IMAGING REPORT ---
LEFT FOOT MIN 3 VIEWS ROUTINE CLINICAL HISTORY: evaluate left great toe for possible osteomyelitis pain. Infection. COMPARISON: None. DISCUSSION: Moderate degenerative change all major osseous structures. No lytic or blastic process. No bony destructive process. Extensive soft tissue vascular calcification. Heel spur. Old healed fracture base fifth metatarsal. IMPRESSION: 1. No evidence for osteomyelitis. 2. Extensive soft tissue vascular calcification. Electronically signed by: Edmundo Lam M.D. 09/21/2016 3:01 PM Dictated Date/Time: 09/21/2016 3:00 PM
--- NOTE | 2016-09-21 15:52 | Progress Note ---
Progress Note ATTENDING ADDENDUM care coordinated with ENEDINA Martinez please refer to her notes for full details, I agree with her notes patient seen and examined, records reviewed by myself as well on exam, patient seen resting in bed, comfortable states her left hand pain is improving, pain mostly on the hypothenar area, and lateral aspect of the hand chest pain has resolved, no dyspnea/dizziness/nausea no other symptoms VS noted and reviewed oriented x 3, not in distress, speaks in sentences with no effort nor accessory muscle use normal rate, regular rhythm, no murmurs clear breath sounds bilaterally non distended, soft, nontender left hand: no swelling, (+) scattered areas of erythema on the dorsal and palmar aspect of the hand (MTP joint areas, hypothenar areas) warm to touch, good radial pulses left arm fistula: good thrill right index finger: (+)eschar on the tip, mild erythema on the distal aspect no other neuro deficits WBC 17k Crea 14 K 5.5 ASSESSMENT/PLAN>\ 50/F withDM, ESRD, CAD, HTN presenting with left hand numbness and chest pain which started this AM. LEFT HAND PARESTHESIAS - related to moderate stenosis of brachial artery, radial artery distribution - symptoms improving - ED discussed with Vascular Sx, will be consulted CHEST PAIN R/O ACS serial cardiac markers echo ESRD due for HD today will consult Nephro other diagnoses and plan of care as per ENEDINA Martinez's notes Alvin Li MD
--- NOTE | 2016-09-21 17:31 | History and Physical ---
History & Physical Date & Time of Service: Sep 21, 2016 at 16:53 Chief Complaint: Chest Pain Primary Care Physician: Tamy Becerra D.O. History of Present Illness 50 year old female who presents to the ER with chest pain, left hand pain, and left hand numbness. Patient was recently admitted to [facility] 09/14 - 09/17 for volume overload which was felt to be due to missing dialysis treatments. Patient reports that while she was in the shower today she developed left hand pain and her fingers were numb. She also noted her left middle finger was white. She then developed mid sternal chest pain which she describes as a pressure. She also had associated nausea and one episode of vomiting. She reports the hand pain was more severe than the chest pain. She then called EMS. She reports the chest pain started to ease up after she burped a couple of times. She reports complete resolution of the chest pain after receiving Zofran by EMS. She denies shortness of breath. No lightheadedness, dizziness, or diaphoresis. She denies abdominal pain or diarrhea. No fever or chills. She continues to make urine. She denies any urinary symptoms. Patient has necrotic tissue noted to right index finger and left great toe. She reports both are unchanged. In the ER, patient's left hand symptoms are improving. She is currently chest pain free. Trop is 0.180, EKG is unchanged from prior. She had an arterial doppler of the LUE that did not show any acute thrombosis. BP on presentation noted to be 217/97. Past Medical/Surgical History Medical Problems: (1) Allergic rhinitis Status: Chronic (2) CAD (coronary artery disease) Permanent Comment: s/p PCI and BMS to left circumflex 03/2016 Status: Chronic (3) Carotid stenosis Permanent Comment: left ICA Status: Chronic (4) DM type 2 (diabetes mellitus, type 2) Status: Chronic (5) Dyslipidemia Status: Chronic (6) ESRD (end stage renal disease) on dialysis Status: Chronic (7) GERD (gastroesophageal reflux disease) Status: Chronic (8) HTN (hypertension) Status: Chronic (9) HX OF PAST NONCOMPLIANCE Status: Chronic (10) Ischemic cardiomyopathy Permanent Comment: echo 05/2016 - EF 40-45%, grade I diastolic dysfunction Status: Chronic (11) Morbid obesity Status: Chronic (12) Tobacco use disorder Status: Chronic Surgical Problems: (1) Hemodialysis access, AV graft Permanent Comment: [facility] Dr. Jones 08/25/12 Status: Chronic Family History Diabetes mellitus FATHER MOTHER Heart disease FATHER MOTHER Hypertension FATHER MOTHER Kidney disease GRANDMOTHER Social History Smoking Status: Former Smoker Alcohol Use: occasionally Immunizations History of Influenza Vaccine: Yes Influenza Vaccine Date: Apr 22, 2016 History of Tetanus Vaccine?: Yes History of Pneumococcal: Yes Pneumococcal Date: Mar 14, 2013 History of Hepatitis B Vaccine: Yes Hepatitis Immunization Date: Aug 01, 2013 Multi-Drug Resistant Organisms History of MDRO: No Allergies Coded Allergies: Adhesives (Verified Allergy, Mild, RASH, SORES, 09/21/16) Pollen Extract (Unverified Allergy, Unknown, rash, 09/21/16) Home Medications Scheduled Aspirin (Aspirin Ec), 81 MG PO DAILY Atorvastatin (Lipitor), 40 MG PO DAILY Calcium Acetate (Phoslo 667 Mg), 1 CAP PO WM Cephalexin Monohydrate (Cephalexin), 1 CAP PO BID Clopidogrel Bisulfate (Plavix), 1 TAB PO DAILY Insulin Glargine (Lantus Solostar), 10 UNITS SC QPM Isosorbide Mononitrate (Isosorbide Mononitrate ER), 60 MG PO QAM Isosorbide Mononitrate Ext Rel (Imdur Ext Rel), 30 MG PO QAM Metoprolol Tartrate (Lopressor), 50 MG PO BID Ranitidine Hcl (Zantac), 300 MG PO HS Sertraline HCl (Sertraline HCl), 2 TAB PO DAILY Scheduled PRN Lorazepam (Ativan), 0.5 MG PO DAILY PRN for Anxiety Methocarbamol (Methocarbamol), 500 MG PO BID PRN for Muscle Spasms Tramadol (Ultram), 1 TAB PO TID PRN for Pain Review of Systems 10 point review of systems was completed with the pertinent positives and negatives noted per the HPI Physical Exam Vital Signs Date Time Temp Pulse Resp B/P Pulse Ox O2 Delivery O2 Flow Rate FiO2 09/21/16 15:25 77 20 168/69 92 Room Air 09/21/16 14:53 75 20 153/135 99 Room Air 09/21/16 14:29 /87 09/21/16 14:23 78 21 100 09/21/16 13:59 105/63 09/21/16 13:53 75 17 95 09/21/16 13:29 141/105 09/21/16 13:23 76 16 99 09/21/16 13:04 163/92 09/21/16 13:04 76 20 163/92 100 09/21/16 13:03 /51 09/21/16 13:00 130/111 09/21/16 12:00 100 Room Air 09/21/16 11:59 146/66 09/21/16 11:53 74 16 96 09/21/16 11:48 170/78 09/21/16 11:41 76 09/21/16 11:29 100 Room Air 09/21/16 11:26 216/97 09/21/16 11:23 36.5 77 20 216/97 100 Room Air General Appearance: no apparent distress Head: normocephalic Eyes: normal inspection ENT: hearing grossly normal Neck: supple, no JVD Respiratory/Chest: lungs clear, normal breath sounds, no respiratory distress Cardiovascular: regular rate, rhythm, no edema Abdomen/GI: normal bowel sounds, non tender, soft Extremities/Musculoskelatal: + pertinent finding (posterior aspect of left hand noted to be mild mottling, sensation intact, + radial pulse; dialysis fistula notes to [facility], + thrill) Neurologic/Psych: no motor/sensory deficits, alert, normal mood/affect, oriented x 3 Skin: + pertinent finding (right index finger necrotic tissue noted, left great toe necrotic tissue noted) Diagnostics Laboratory Results Results Past 24 Hours Test 09/21/16 11:30 09/21/16 11:40 09/21/16 12:07 09/21/16 14:20 Range/Units White Blood Count 17.26 4.8-10.8 K/uL Red Blood Count 3.95 4.2-5.4 M/uL Hemoglobin 12.0 12.0-16.0 g/dL Hematocrit 35.8 37-47 % Mean Corpuscular Volume 90.6 80-100 fL Mean Corpuscular Hemoglobin 30.4 25-34 pg Mean Corpuscular Hemoglobin Concent 33.5 32-36 g/dl Platelet Count 344 130-400 K/uL Mean Platelet Volume 11.1 7.4-10.4 fL Neutrophils (%) (Auto) 85.8 % Lymphocytes (%) (Auto) 8.3 % Monocytes (%) (Auto) 4.5 % Eosinophils (%) (Auto) 0.9 % Basophils (%) (Auto) 0.2 % Neutrophils # (Auto) 14.82 1.4-6.5 K/uL Lymphocytes # (Auto) 1.43 1.2-3.4 K/uL Monocytes # (Auto) 0.77 0.11-0.59 K/uL Eosinophils # (Auto) 0.16 0-0.5 K/uL Basophils # (Auto) 0.03 0-0.2 K/uL RDW Standard Deviation 46.9 36.4-46.3 fL RDW Coefficient of Variation 14.3 11.5-14.5 % Immature Granulocyte % (Auto) 0.3 % Immature Granulocyte # (Auto) 0.05 0.00-0.02 K/uL Prothrombin Time 12.1 9.0-12.0 SECONDS Prothromb Time International Ratio 1.1 0.9-1.1 Activated Partial Thromboplast Time 30.2 21.0-31.0 SECONDS Partial Thromboplastin Ratio 1.2 Sodium Level 133 136-145 mmol/L Potassium Level 5.5 3.5-5.1 mmol/L Chloride Level 96 98-107 mmol/L Carbon Dioxide Level 21 21-32 mmol/L Anion Gap 16.0 3-11 mmol/L Blood Urea Nitrogen 71 7-18 mg/dl Creatinine 14.00 0.60-1.20 mg/dl Est Creatinine Clear Calc Drug Dose 6.1 ml/min Estimated GFR () 3.2 Estimated GFR (Non- 2.7 BUN/Creatinine Ratio 5.0 10-20 Random Glucose 259 70-99 mg/dl Calcium Level 9.6 8.5-10.1 mg/dl Magnesium Level 2.6 1.8-2.4 mg/dl Total Bilirubin 0.4 0.2-1 mg/dl Direct Bilirubin 0.1 0-0.2 mg/dl Aspartate Amino Transf (AST/SGOT) 11 15-37 U/L Alanine Aminotransferase (ALT/SGPT) 6 12-78 U/L Alkaline Phosphatase 81 45-117 U/L Total Creatine Kinase 44 26-192 U/L Creatine Kinase MB 2.4 0.5-3.6 ng/ml Creatine Kinase MB Ratio 5.5 0-3.0 Total Protein 8.5 6.4-8.2 gm/dl Albumin 3.2 3.4-5.0 gm/dl Lipase 237 73-393 U/L Bedside Lactic Acid Venous 2.67 0.90-1.70 mmol/L Bedside Troponin I 0.180 0-0.045 ng/ml Lactic Acid Level 1.7 0.4-2.0 mmol/L Microbiology Results 09/21/16 Blood Culture, Received Pending 09/21/16 Blood Culture, Received Pending Diagnostic Radiology FIN[facility] ARTERIAL DOPPLER IMPRESSION: 1. No significant stenotic process of the arm. 2. The patient's left brachial arterial fistula shows normal antegrade flow, although velocity characteristics are diminished consistent with at least a moderate stenotic process. 3. Dampened flow within the arterial structures of the distal forearm and palm, suggesting the possibility of significant stenotic change at the level of the fistula, as well as within the distal radial distribution at the level of the palm and wrist CXR IMPRESSION: Negative chest. LEFT FOOT XR IMPRESSION: 1. No evidence for osteomyelitis. 2. Extensive soft tissue vascular calcification. Impression Assessment and Plan CHEST PAIN, MILDLY ELEVATED TROP, HX CAD - admit to tele - s/p BMS to circumflex 03/2016 - initial trop mildly elevated, will continue to trend; EKG unchanged from prior - check resting echo - ESRD likely contributing to troponin elevation - ? due to hypertensive urgency and/or GERD - continue ASA, Plavix, beta silvia, statin, and nitrate LEFT HAND PAIN/PARESTHESIA - ? due to moderate stenosis of brachial artery, radial artery distribution noted on arterial US - symptoms improving - vascular checks q4h - vascular surgery consult - notified by ED HYPERTENSIVE URGENCY - patient did not take home BP meds today - will give doses now and reassess BP LEUKOCYTOSIS - ? stress response from pain/vomiting - no obvious source of infection currently - blood cultures, U/A, urine culture pending - no infiltrate on CXR - has necrotic tissue to right index finger/left great toe - improving/ unchanged per patient - afebrile - POC lactic acid elevated, however serum WNL - patient currently taking cephalexin for right index finger - will continue with for now ISCHEMIC CARDIOMYOPATHY - EF 40-45% - volume managed with dialysis HYPERKALEMIA, ESRD ON HD - no EKG changes - nephro consulted for HD orders DM - on Lantus at home however well known to our service and due to forced diet compliance while hospitalized usually only requires SSI DVT PROPHYLAXIS - SQ Heparin DISPO - In my clinical judgment this beneficiary meets acute admission criteria, established by [facility], that includes being hospitalized through two midnights. VTE Prophylaxis VTE Risk Assessment Done? Y/N: Yes Risk Level: Moderate
[2016-09-21] MEDS ORDERED: ASPIRIN 81 MG ECTAB PO ONE (18:00)
[2016-09-21] MEDS ORDERED: ISOSORBIDE MONONITRATE 30 MG TABCR PO ONE (18:00)
[2016-09-21] MEDS ORDERED: ISOSORBIDE MONONITRATE 60 MG TABCR PO ONE (18:00)
[2016-09-21] MEDS ORDERED: ATORVASTATIN 40 MG TAB PO ONE (18:00)
[2016-09-21] MEDS ORDERED: CLOPIDOGREL BISULFATE 75 MG TAB PO ONE (18:00)
--- NOTE | 2016-09-21 18:26 | Nephrology Consultation ---
Nephrology Consultation Date of Consultation: Sep 21, 2016. Attending Physician: Dr Parham Requesting Physician: Dr Li Reason for Consultation: ESRD History of Present Illness 50 year old female w/ esrd admitted to hospital today after presenting with chest pain and htn; also noted to have new cyanotic/white L middle finger lesion / pain. Other medical hx as below. Missed her dialysis treatment yesterday. Recently admitted here 09/14-09/17 for hyperkalemia and volume overload after missing 3 outpt dialysis treatments d/t GI symptoms per her report; had also stopped taking her meds for about a month before that admission. Seen today just after dialysis which she had at my orders and chest pain improved w/ 2L fluid removal. Admitting team notes necrotic tissue on L great toe, L midfinger white/cyanotic on eval this am; R index finger w/ necrotic 1.5 cm lesion. Vascular surgery aware of these lesions, has been following pt and will reassess her in am. Past Medical/Surgical History Medical Problems: (1) Abdominal pain Status: Acute (2) Acute electrocardiogram changes Status: Acute (3) Elevated troponin Status: Acute (4) End stage renal disease Status: Acute (5) Hyperkalemia Status: Acute (6) Joint effusion Status: Acute (7) Left elbow pain Status: Acute (8) Left sided chest pain Status: Acute (9) Medical non-compliance Status: Acute (10) Pneumonia Status: Acute (11) Pulmonary edema Status: Acute (12) Renal failure Status: Acute (13) Sinusitis Status: Acute (14) Substernal chest pain Status: Acute (15) Urinary tract infection Status: Acute (16) Vomiting Status: Acute -ESRD on in center HD via AVF as above -C diff in past -CAD s/p BMS 03/2016; follows w/ Dr Theo MCCORDG -DM2 -HTN -anemia -HL -GERD -h/o nonadherence to medical treatment -09/14-09/17 [facility] [place] admission for volume overload and hyperkalemia -R second finger tip lesion -states she has L carotid artery stenosis which will need stenting at some point -s/p TDC, AVF placements Family History Diabetes mellitus FATHER MOTHER Heart disease FATHER MOTHER Hypertension FATHER MOTHER Kidney disease GRANDMOTHER Social History Smoking Status: Former Smoker Alcohol Use: none Housing Status: lives with family Allergies Coded Allergies: Adhesives (Verified Allergy, Mild, RASH, SORES, 09/21/16) Pollen Extract (Unverified Allergy, Unknown, rash, 09/21/16) Medications Current Inpatient Medications Medications (Trade) Dose Ordered Sig/Bladimir Route Start Time Stop Time Status Last Admin Dose Admin Heparin Sodium (Porcine) (Heparin Sq 5000 Unit/0.5ml) 5,000 unit Q12 SQ 09/21/16 21:00 10/21/16 20:59 Acetaminophen (Tylenol Tab) 650 mg Q4H PRN PO 09/21/16 14:30 10/21/16 14:29 Ondansetron HCl (Zofran Inj) 4 mg Q6H PRN IV 09/21/16 14:30 10/21/16 14:29 Aspirin (Ecotrin Tab) 81 mg DAILY PO 09/22/16 09:00 10/22/16 08:59 Atorvastatin Calcium (Lipitor Tab) 40 mg DAILY PO 09/22/16 09:00 10/22/16 08:59 Calcium Acetate (Phoslo Cap) 667 mg TIDM PO 09/21/16 18:00 10/21/16 17:59 Cephalexin Monohydrate (Keflex Cap) 500 mg BID PO 09/21/16 21:00 10/01/16 20:59 Clopidogrel Bisulfate (plAVix TAB) 75 mg DAILY PO 09/22/16 09:00 10/22/16 08:59 Isosorbide Mononitrate (Imdur Ext Rel Tab) 60 mg QAM PO 09/22/16 09:00 10/22/16 08:59 Isosorbide Mononitrate (Imdur Ext Rel Tab) 30 mg QAM PO 09/22/16 09:00 10/22/16 08:59 Lorazepam (Ativan Tab) 0.5 mg DAILY PRN PO 09/21/16 14:45 10/21/16 14:44 Metoprolol Tartrate (Lopressor Tab) 50 mg BID PO 09/21/16 21:00 10/21/16 20:59 Ranitidine HCl (zANTac TAB) 300 mg HS PO 09/21/16 21:00 10/21/16 20:59 Sertraline HCl (Zoloft Tab) 100 mg DAILY PO 09/22/16 09:00 10/22/16 08:59 Tramadol HCl (Ultram Tab) 50 mg TID PRN PO 09/21/16 14:45 10/21/16 14:44 Insulin Aspart (novoLOG ASPART) SLIDING SCALE ACHS SC 09/21/16 21:00 10/21/16 20:59 Home Meds and Scripts Medications Dose Route/Sig Max Daily Dose Days Date Category Sertraline HCl 50 Mg Tab 2 Tab PO DAILY 30 09/14/16 Reported Phoslo 667 Mg (Calcium Acetate) 667 Mg Cap 1 Cap PO WM 09/14/16 Reported Lipitor (Atorvastatin) 20 Mg Tab 40 Mg PO DAILY 09/14/16 Reported Lopressor (Metoprolol Tartrate) 25 Mg Tab 50 Mg PO BID 09/14/16 Reported Plavix (Clopidogrel Bisulfate) 75 Mg Tab 1 Tab PO DAILY 90 09/14/16 Reported Isosorbide Mononitrate ER (Isosorbide Mononitrate) 30 Mg Tabcr 60 Mg PO QAM 09/14/16 Reported Imdur Ext Rel (Isosorbide Mononitrate) 30 Mg Ertab 30 Mg PO QAM 09/14/16 Reported Lantus Solostar (Insulin Glargine) 100 Unit/Ml Inj 10 Units SC QPM 09/14/16 Reported Ativan (Lorazepam) 1 Mg Tab 0.5 Mg PO DAILY PRN 09/14/16 Reported Zantac (Ranitidine HCl) 150 Mg Tab 300 Mg PO HS 09/14/16 Reported Methocarbamol 500 Mg Tab 500 Mg PO BID PRN 09/14/16 Reported Ultram (Tramadol HCl) 50 Mg Tab 1 Tab PO TID PRN 30 09/14/16 Reported Cephalexin (Cephalexin Monohydrate) 1 Homepack Ea 1 Cap PO BID 09/14/16 Reported Aspirin Ec (Aspirin) 81 Mg Tab 81 Mg PO DAILY 04/06/16 Reported Review of Systems Constitutional: No fatigue, No fever, No weakness Eyes: No worsening of vision ENT: No hearing loss Respiratory: No shortness of breath Cardiac: + see HPI, No edema, No orthopnea Abdomen: No diarrhea, No nausea, No pain, No vomiting Musculoskeletal: + joint pain, + see HPI Female : + problem reported (no change in voiding habits) Psych: No anxiety, No depression symptoms Heme: No abnormal bleeding/bruising Endo: No fatigue Skin: + new/changing skin lesions, + see HPI Physical Exam Date Time Temp Pulse Resp B/P Pulse Ox O2 Delivery O2 Flow Rate FiO2 09/21/16 18:15 55 119/63 09/21/16 18:00 55 121/47 09/21/16 17:45 76 180/92 09/21/16 17:30 58 155/80 09/21/16 17:15 53 131/107 09/21/16 17:00 61 177/82 09/21/16 16:55 62 194/56 09/21/16 16:31 36.5 73 219/111 09/21/16 15:25 77 20 168/69 92 Room Air 09/21/16 14:53 75 20 153/135 99 Room Air 09/21/16 14:29 /87 09/21/16 14:23 78 21 100 09/21/16 13:59 105/63 09/21/16 13:53 75 17 95 09/21/16 13:29 141/105 09/21/16 13:23 76 16 99 09/21/16 13:04 163/92 09/21/16 13:04 76 20 163/92 100 09/21/16 13:03 /51 09/21/16 13:00 130/111 09/21/16 12:00 100 Room Air 09/21/16 11:59 146/66 09/21/16 11:53 74 16 96 09/21/16 11:48 170/78 09/21/16 11:41 76 09/21/16 11:29 100 Room Air 09/21/16 11:26 216/97 09/21/16 11:23 36.5 77 20 216/97 100 Room Air General Appearance: WD/WN, no apparent distress (on ra in nad) Eyes: EOMI ENT: hearing grossly normal Neck: supple Respiratory/Chest: lungs clear, no respiratory distress Cardiovascular: regular rate, rhythm, no edema Abdomen: normal bowel sounds, non tender, soft Extremities: + pertinent finding (avf L prox + t/b; L hand faint lacy purple cyanotic lesions; L middle finger not obviously injured; large necrotic lesion tip of R index) Neurologic/Psych: alert, normal mood/affect, oriented x 3 Skin: no jaundice, warm/dry, no rash, + pertinent finding (see extremity pe) Diagnostics Last 24 Hours Test 09/21/16 11:30 09/21/16 11:40 09/21/16 12:07 09/21/16 14:20 White Blood Count 17.26 K/uL Red Blood Count 3.95 M/uL Hemoglobin 12.0 g/dL Hematocrit 35.8 % Mean Corpuscular Volume 90.6 fL Mean Corpuscular Hemoglobin 30.4 pg Mean Corpuscular Hemoglobin Concent 33.5 g/dl Platelet Count 344 K/uL Mean Platelet Volume 11.1 fL Neutrophils (%) (Auto) 85.8 % Lymphocytes (%) (Auto) 8.3 % Monocytes (%) (Auto) 4.5 % Eosinophils (%) (Auto) 0.9 % Basophils (%) (Auto) 0.2 % Neutrophils # (Auto) 14.82 K/uL Lymphocytes # (Auto) 1.43 K/uL Monocytes # (Auto) 0.77 K/uL Eosinophils # (Auto) 0.16 K/uL Basophils # (Auto) 0.03 K/uL RDW Standard Deviation 46.9 fL RDW Coefficient of Variation 14.3 % Immature Granulocyte % (Auto) 0.3 % Immature Granulocyte # (Auto) 0.05 K/uL Prothrombin Time 12.1 SECONDS Prothromb Time International Ratio 1.1 Activated Partial Thromboplast Time 30.2 SECONDS Partial Thromboplastin Ratio 1.2 Sodium Level 133 mmol/L Potassium Level 5.5 mmol/L Chloride Level 96 mmol/L Carbon Dioxide Level 21 mmol/L Anion Gap 16.0 mmol/L Blood Urea Nitrogen 71 mg/dl Creatinine 14.00 mg/dl Est Creatinine Clear Calc Drug Dose 6.1 ml/min Estimated GFR () 3.2 Estimated GFR (Non- 2.7 BUN/Creatinine Ratio 5.0 Random Glucose 259 mg/dl Calcium Level 9.6 mg/dl Magnesium Level 2.6 mg/dl Total Bilirubin 0.4 mg/dl Direct Bilirubin 0.1 mg/dl Aspartate Amino Transf (AST/SGOT) 11 U/L Alanine Aminotransferase (ALT/SGPT) 6 U/L Alkaline Phosphatase 81 U/L Total Creatine Kinase 44 U/L Creatine Kinase MB 2.4 ng/ml Creatine Kinase MB Ratio 5.5 Total Protein 8.5 gm/dl Albumin 3.2 gm/dl Lipase 237 U/L Bedside Lactic Acid Venous 2.67 mmol/L Bedside Troponin I 0.180 ng/ml Lactic Acid Level 1.7 mmol/L Test 09/21/16 17:00 Creatine Kinase MB Ratio Diagnostic Radiology: DOPPLER LUE -at least moderate AVF stenosis; no stenosis in arm Foot XR no acute process CXR no acute cardiopulmonary process EKG: ECG > NSR unchanged since 09/14 ECG Assessment & Plan 50 y/o F w/ ESRD and missed dialysis admitted 09/21 w/ chest pain ESRD w/ hyperkalemia, HTN -2hr HD today -plan 4 hr tx tomorrow w/ aggressive UF as tolerated possible AV fistula malfunction on imaging -vascular to evaluate pt in am; ran ok today Anemia of ESRD -no meds indicated currently; monitor daily Digital Lesions -vascular and orthopedics following Appreciate consultation; will follow with you
[2016-09-21] MEDS: RANITIDINE HCL 150 MG TAB PO SCH (20:15)
[2016-09-21] MEDS: CALCIUM ACETATE 667MG GELCAP PO SCH (20:15)
[2016-09-21] MEDS: CEPHALEXIN MONOHYDRATE 500 MG CAP PO SCH (20:16)
[2016-09-21] MEDS: METOPROLOL TARTRATE 50 MG TAB PO SCH (20:16)
[2016-09-21] MEDS: HEPARIN SOD 5000 UNIT/0.5 ML CARP SQ SCH (20:46)
[2016-09-21] MEDS: INSULIN ASPART 100 UNITS/ML 3 ML PEN SC SCH (20:46)
[2016-09-21] MEDS ORDERED: INSULIN GLARGINE SOLOSTAR 100 UNITS/ML 3 ML PEN SC SCH (21:00)
[2016-09-21] MEDS ORDERED: GLUCAGON FOR INJ 1 MG VIAL SQ PRN (21:00)
[2016-09-21] MEDS ORDERED: GLUCOSE 10 TABS/TUBE PO PRN (21:00)
[2016-09-21] MEDS ORDERED: DEXTROSE 50% 50 ML SYR IV PRN (21:00)
[2016-09-21] MEDS ORDERED: GLUCOSE 40% GEL 15 GM TUBE PO PRN (21:00)
[2016-09-22] VITALS (23 sets, daily range): BP systolic 72–145; BP diastolic 26–80; PULSE 55–78; TEMP 36.5–36.9; O2SAT 95–99
[2016-09-22 02:00] LABS: URINE APPEARANCE CLOUDY (CLEAR); URINE BILIRUBIN NEG (NEG); URINE COLOR YELLOW; URINE EPITHELIAL CELL AUTO >30 /lpf (0-5); URINE NITRITE NEG (NEG); URINE PH 6.5 (4.5-7.5); URINE SPECIFIC GRAVITY 1.012 (1.000-1.030); UROBILINOGEN NEG (NEG)
[2016-09-22 02:01] LABS: MANUAL MICROSCOPIC REQUIRED? NO; REVIEW REQ? YES
[2016-09-22 06:17] LABS: BASO % 0.2 %; BASO ABS # 0.03 K/uL (0-0.2); COMPLETE YES; EOS % 2.1 %; HEMATOCRIT 32.6 % (37-47); IG% 0.3 %; LYMPH % 23.9 %; MEAN CELL VOLUME 93.7 fL (80-100); MEAN CORPUSCULAR HEMOGLOBIN 30.2 pg (25-34); MEAN CORPUSCULAR HGB CONC 32.2 g/dl (32-36); MEAN PLATELET VOLUME 10.8 fL (7.4-10.4); MONO % 8.9 %; NEUT % 64.6 %; PLATELET COUNT 318 K/uL (130-400); RED BLOOD COUNT 3.48 M/uL (4.2-5.4); WHITE BLOOD COUNT 13.38 K/uL (4.8-10.8)
[2016-09-22] MEDS: INSULIN ASPART 100 UNITS/ML 3 ML PEN SC SCH ×4 (06:30→20:50)
[2016-09-22 06:51] LABS: BUN/CREATININE RATIO 4.1 (10-20); CALCIUM 9.2 mg/dl (8.5-10.1); MAGNESIUM 2.5 mg/dl (1.8-2.4); POTASSIUM 4.7 mmol/L (3.5-5.1)
[2016-09-22] MEDS ORDERED: HEPARIN SOD (PORCINE) 1000 UNIT/ML 10 ML VIAL IV SCH ×2 (08:00)
[2016-09-22] MEDS: CLOPIDOGREL BISULFATE 75 MG TAB PO SCH (08:37)
[2016-09-22] MEDS: HEPARIN SOD 5000 UNIT/0.5 ML CARP SQ SCH ×2 (08:38→20:53)
[2016-09-22] MEDS: METOPROLOL TARTRATE 50 MG TAB PO SCH ×2 (08:38→15:06)
[2016-09-22] MEDS: ISOSORBIDE MONONITRATE 60 MG TABCR PO SCH ×2 (08:38→15:07)
[2016-09-22] MEDS: ISOSORBIDE MONONITRATE 30 MG TABCR PO SCH ×2 (08:39→15:07)
[2016-09-22] MEDS: CALCIUM ACETATE 667MG GELCAP PO SCH ×3 (08:39→17:42)
[2016-09-22] MEDS: ATORVASTATIN 40 MG TAB PO SCH (08:39)
[2016-09-22] MEDS: ASPIRIN 81 MG ECTAB PO SCH (08:39)
[2016-09-22] MEDS: SERTRALINE HCL 100 MG TAB PO SCH ×3 (08:39→20:53)
[2016-09-22] MEDS: CEPHALEXIN MONOHYDRATE 500 MG CAP PO SCH ×2 (08:39→20:49)
--- NOTE | 2016-09-22 10:15 | Dialysis Progress Note ---
Nephrology Dialysis Note Date of Service: Sep 22, 2016. Subjective no acute interval events. vascular evaluating pt. some low abd distension/ malaise. still hand pain. Objective Date Time Temp Pulse Resp B/P Pulse Ox O2 Delivery O2 Flow Rate FiO2 09/22/16 10:00 64 98/56 09/22/16 09:45 61 119/50 09/22/16 09:30 61 107/40 09/22/16 09:15 58 106/62 09/22/16 09:00 60 92/44 09/22/16 08:45 66 118/47 09/22/16 08:35 65 133/43 09/22/16 08:28 36.6 71 104/26 09/22/16 08:14 36.6 66 20 145/72 99 Room Air 09/22/16 04:48 36.6 55 20 81/40 95 Room Air 09/22/16 04:00 Room Air 09/22/16 00:27 36.7 58 18 99/65 97 Room Air 09/22/16 00:00 Room Air 09/21/16 21:51 59 142/73 09/21/16 19:00 36.5 56 144/123 09/21/16 18:46 36.5 55 20 119/63 92 Room Air 09/21/16 18:45 62 97/81 09/21/16 18:30 66 156/118 09/21/16 18:15 55 119/63 09/21/16 18:00 55 121/47 09/21/16 17:45 76 180/92 09/21/16 17:30 58 155/80 09/21/16 17:15 53 131/107 09/21/16 17:00 61 177/82 09/21/16 16:55 62 194/56 09/21/16 16:31 36.5 73 219/111 09/21/16 15:25 77 20 168/69 92 Room Air 09/21/16 14:53 75 20 153/135 99 Room Air 09/21/16 14:29 /87 09/21/16 14:23 78 21 100 09/21/16 13:59 105/63 09/21/16 13:53 75 17 95 09/21/16 13:29 141/105 09/21/16 13:23 76 16 99 09/21/16 13:04 163/92 09/21/16 13:04 76 20 163/92 100 09/21/16 13:03 /51 09/21/16 13:00 130/111 09/21/16 12:00 100 Room Air 09/21/16 11:59 146/66 09/21/16 11:53 74 16 96 09/21/16 11:48 170/78 09/21/16 11:41 76 09/21/16 11:29 100 Room Air 09/21/16 11:26 216/97 09/21/16 11:23 36.5 77 20 216/97 100 Room Air Physical Exam: General-on ra, oriented x 3 Eyes-eomi ENT-mmm Neck-supple Lungs-diminished, clear Heart- RRR no edema Abdomen- nt + bs soft Extremities-R index black eschar lesion; no obvious lesion L hand w/ faint pulse and slight coolness and less lacy Neuro-stein, fluent speech Current Inpatient Medications Medications (Trade) Dose Ordered Sig/Bladimir Route Start Time Stop Time Status Last Admin Dose Admin Heparin Sodium (Porcine) (Heparin Sq 5000 Unit/0.5ml) 5,000 unit Q12 SQ 09/21/16 21:00 10/21/16 20:59 09/22/16 08:38 5,000 UNIT Acetaminophen (Tylenol Tab) 650 mg Q4H PRN PO 09/21/16 14:30 10/21/16 14:29 Ondansetron HCl (Zofran Inj) 4 mg Q6H PRN IV 09/21/16 14:30 10/21/16 14:29 Aspirin (Ecotrin Tab) 81 mg DAILY PO 09/22/16 09:00 10/22/16 08:59 09/22/16 08:39 81 MG Atorvastatin Calcium (Lipitor Tab) 40 mg DAILY PO 09/22/16 09:00 10/22/16 08:59 09/22/16 08:39 40 MG Calcium Acetate (Phoslo Cap) 667 mg TIDM PO 09/21/16 18:00 10/21/16 17:59 09/22/16 08:39 667 MG Cephalexin Monohydrate (Keflex Cap) 500 mg BID PO 09/21/16 21:00 10/01/16 20:59 09/22/16 08:39 500 MG Clopidogrel Bisulfate (plAVix TAB) 75 mg DAILY PO 09/22/16 09:00 10/22/16 08:59 09/22/16 08:37 75 MG Isosorbide Mononitrate (Imdur Ext Rel Tab) 60 mg QAM PO 09/22/16 09:00 10/22/16 08:59 09/22/16 08:38 60 MG Isosorbide Mononitrate (Imdur Ext Rel Tab) 30 mg QAM PO 09/22/16 09:00 10/22/16 08:59 09/22/16 08:39 30 MG Lorazepam (Ativan Tab) 0.5 mg DAILY PRN PO 09/21/16 14:45 10/21/16 14:44 Metoprolol Tartrate (Lopressor Tab) 50 mg BID PO 09/21/16 21:00 10/21/16 20:59 09/22/16 08:38 50 MG Ranitidine HCl (zANTac TAB) 300 mg HS PO 09/21/16 21:00 10/21/16 20:59 09/21/16 20:15 300 MG Sertraline HCl (Zoloft Tab) 100 mg DAILY PO 09/22/16 09:00 10/22/16 08:59 09/22/16 08:39 100 MG Tramadol HCl (Ultram Tab) 50 mg TID PRN PO 09/21/16 14:45 10/21/16 14:44 Insulin Aspart (novoLOG ASPART) SLIDING SCALE ACHS SC 09/21/16 21:00 10/21/16 20:59 09/21/16 20:46 2 UNITS Glucose (Glucose 40% Gel) 15-30 GRAMS 15 GRAMS... UD PRN PO 09/21/16 21:00 10/21/16 20:59 Glucose (Glucose Chew Tab) 4-8 Tablets 4 Tabl... UD PRN PO 09/21/16 21:00 10/21/16 20:59 Dextrose (Dextrose 50% 50ML Syringe) 25-50ML OF 50% DW IV FOR... UD PRN IV 09/21/16 21:00 10/21/16 20:59 Glucagon (Glucagon Inj) 1 mg UD PRN SQ 09/21/16 21:00 10/21/16 20:59 Last 24 Hours Test 09/21/16 11:30 09/21/16 11:40 09/21/16 12:07 09/21/16 14:20 White Blood Count 17.26 K/uL Red Blood Count 3.95 M/uL Hemoglobin 12.0 g/dL Hematocrit 35.8 % Mean Corpuscular Volume 90.6 fL Mean Corpuscular Hemoglobin 30.4 pg Mean Corpuscular Hemoglobin Concent 33.5 g/dl Platelet Count 344 K/uL Mean Platelet Volume 11.1 fL Neutrophils (%) (Auto) 85.8 % Lymphocytes (%) (Auto) 8.3 % Monocytes (%) (Auto) 4.5 % Eosinophils (%) (Auto) 0.9 % Basophils (%) (Auto) 0.2 % Neutrophils # (Auto) 14.82 K/uL Lymphocytes # (Auto) 1.43 K/uL Monocytes # (Auto) 0.77 K/uL Eosinophils # (Auto) 0.16 K/uL Basophils # (Auto) 0.03 K/uL RDW Standard Deviation 46.9 fL RDW Coefficient of Variation 14.3 % Immature Granulocyte % (Auto) 0.3 % Immature Granulocyte # (Auto) 0.05 K/uL Prothrombin Time 12.1 SECONDS Prothromb Time International Ratio 1.1 Activated Partial Thromboplast Time 30.2 SECONDS Partial Thromboplastin Ratio 1.2 Sodium Level 133 mmol/L Potassium Level 5.5 mmol/L Chloride Level 96 mmol/L Carbon Dioxide Level 21 mmol/L Anion Gap 16.0 mmol/L Blood Urea Nitrogen 71 mg/dl Creatinine 14.00 mg/dl Est Creatinine Clear Calc Drug Dose 6.1 ml/min Estimated GFR () 3.2 Estimated GFR (Non- 2.7 BUN/Creatinine Ratio 5.0 Random Glucose 259 mg/dl Calcium Level 9.6 mg/dl Magnesium Level 2.6 mg/dl Total Bilirubin 0.4 mg/dl Direct Bilirubin 0.1 mg/dl Aspartate Amino Transf (AST/SGOT) 11 U/L Alanine Aminotransferase (ALT/SGPT) 6 U/L Alkaline Phosphatase 81 U/L Total Creatine Kinase 44 U/L Creatine Kinase MB 2.4 ng/ml Creatine Kinase MB Ratio 5.5 Total Protein 8.5 gm/dl Albumin 3.2 gm/dl Lipase 237 U/L Bedside Lactic Acid Venous 2.67 mmol/L Bedside Troponin I 0.180 ng/ml Lactic Acid Level 1.7 mmol/L Test 09/21/16 17:00 09/21/16 20:06 09/21/16 20:32 09/21/16 23:00 Creatine Kinase MB Ratio Creatine Kinase MB 2.8 ng/ml Troponin I 0.268 ng/ml Bedside Glucose 151 mg/dl Test 09/21/16 23:13 09/22/16 00:00 09/22/16 05:52 09/22/16 06:28 Creatine Kinase MB 3.2 ng/ml Troponin I 0.249 ng/ml Urine Color YELLOW Urine Appearance CLOUDY Urine pH 6.5 Urine Specific [place] 1.012 Urine Protein 3+ Urine Glucose (UA) 2+ Urine Ketones NEG Urine Occult Blood 1+ Urine Nitrite NEG Urine Bilirubin NEG Urine Urobilinogen NEG Urine Leukocyte Esterase SMALL Urine WBC (Auto) >30 /hpf Urine RBC (Auto) 0-4 /hpf Urine Hyaline Casts (Auto) 0 /lpf Urine Epithelial Cells (Auto) >30 /lpf Urine Bacteria (Auto) NEG Urine Pathogenic Casts /lpf White Blood Count 13.38 K/uL Red Blood Count 3.48 M/uL Hemoglobin 10.5 g/dL Hematocrit 32.6 % Mean Corpuscular Volume 93.7 fL Mean Corpuscular Hemoglobin 30.2 pg Mean Corpuscular Hemoglobin Concent 32.2 g/dl Platelet Count 318 K/uL Mean Platelet Volume 10.8 fL Neutrophils (%) (Auto) 64.6 % Lymphocytes (%) (Auto) 23.9 % Monocytes (%) (Auto) 8.9 % Eosinophils (%) (Auto) 2.1 % Basophils (%) (Auto) 0.2 % Neutrophils # (Auto) 8.64 K/uL Lymphocytes # (Auto) 3.20 K/uL Monocytes # (Auto) 1.19 K/uL Eosinophils # (Auto) 0.28 K/uL Basophils # (Auto) 0.03 K/uL RDW Standard Deviation 49.3 fL RDW Coefficient of Variation 14.8 % Immature Granulocyte % (Auto) 0.3 % Immature Granulocyte # (Auto) 0.04 K/uL Sodium Level 136 mmol/L Potassium Level 4.7 mmol/L Chloride Level 97 mmol/L Carbon Dioxide Level 25 mmol/L Anion Gap 14.0 mmol/L Blood Urea Nitrogen 49 mg/dl Creatinine 12.00 mg/dl Est Creatinine Clear Calc Drug Dose 7.0 ml/min Estimated GFR () 3.8 Estimated GFR (Non- 3.3 BUN/Creatinine Ratio 4.1 Random Glucose 97 mg/dl Calcium Level 9.2 mg/dl Magnesium Level 2.5 mg/dl Lactic Acid Level 1.0 mmol/L Test 09/22/16 07:44 Bedside Glucose 124 mg/dl Date/Time Source Procedure Growth Status 09/21/16 14:49 Blood Blood Culture Pending Received 09/21/16 14:20 Blood Blood Culture Pending Received 09/21/16 20:00 Nasal MRSA DNA Surveillance Screen - Final Specimen Negative for MRSA by DNA Probe Complete Assessment & Plan 50 y/o F w/ ESRD and missed dialysis admitted 09/21 w/ chest pain ESRD w/ hyperkalemia, HTN -4 hr tx today w/ aggressive UF as tolerated; next HD tentatively for 2/3 as inpt/outpt possible AV fistula malfunction on imaging -vascular evaluating pt now Anemia of ESRD -no meds indicated currently; monitor daily Digital Lesions -vascular and orthopedics following Appreciate consultation; will follow with you
--- NOTE | 2016-09-22 13:54 | Hospitalist Progress Note ---
Hospitalist Progress Note Date of Service Sep 22, 2016. Subjective Patient seen and examined after dialysis. According to RN, patient became disconnected during treatment and had an EBL of 300ml Patient currently reports feeling tired and "wiped out" She reports a brief episode of chest pain when she became disconnected from dialysis. She denies shortness of breath. No lightheadedness or dizziness. Left hand pain and numbness is improving. No fever or chills. Denies abdominal pain, nausea, and vomiting. Objective Vital Signs Date Time Temp Pulse Resp B/P Pulse Ox O2 Delivery O2 Flow Rate FiO2 09/22/16 11:45 71 97/37 09/22/16 11:30 63 108/36 09/22/16 11:15 78 99/80 09/22/16 11:00 66 104/47 09/22/16 10:45 71 105/74 09/22/16 10:30 63 112/47 09/22/16 10:15 63 106/48 09/22/16 10:00 64 98/56 09/22/16 09:45 61 119/50 09/22/16 09:30 61 107/40 09/22/16 09:15 58 106/62 09/22/16 09:00 60 92/44 09/22/16 08:45 66 118/47 09/22/16 08:35 65 133/43 09/22/16 08:28 36.6 71 104/26 09/22/16 08:14 36.6 66 20 145/72 99 Room Air 09/22/16 08:00 99 Room Air 09/22/16 04:48 36.6 55 20 81/40 95 Room Air 09/22/16 04:00 Room Air 09/22/16 00:27 36.7 58 18 99/65 97 Room Air 09/22/16 00:00 Room Air 09/21/16 21:51 59 142/73 09/21/16 19:00 36.5 56 144/123 09/21/16 18:46 36.5 55 20 119/63 92 Room Air 09/21/16 18:45 62 97/81 09/21/16 18:30 66 156/118 09/21/16 18:15 55 119/63 09/21/16 18:00 55 121/47 09/21/16 17:45 76 180/92 09/21/16 17:30 58 155/80 09/21/16 17:15 53 131/107 09/21/16 17:00 61 177/82 09/21/16 16:55 62 194/56 09/21/16 16:31 36.5 73 219/111 09/21/16 15:25 77 20 168/69 92 Room Air 09/21/16 14:53 75 20 153/135 99 Room Air 09/21/16 14:29 /87 09/21/16 14:23 78 21 100 09/21/16 13:59 105/63 09/21/16 13:53 75 17 95 Physical Exam General Appearance: no apparent distress Eyes: normal inspection ENT: hearing grossly normal Neck: supple, no JVD Respiratory/Chest: lungs clear, normal breath sounds, no respiratory distress Cardiovascular: regular rate, rhythm, no edema Abdomen: normal bowel sounds, non tender, soft Extremities: + pertinent finding (left hand color improved from yesterday, + left radial pulse; dialysis fistula noted to LUE, + thrill ) Neurologic/Psychiatric: no motor/sensory deficits, alert, normal mood/affect, oriented x 3 Skin: normal color, warm/dry Laboratory Results Last 24 Hours Test 09/21/16 14:20 09/21/16 17:00 09/21/16 20:06 09/21/16 20:32 Lactic Acid Level 1.7 mmol/L Creatine Kinase MB Ratio Creatine Kinase MB 2.8 ng/ml Troponin I 0.268 ng/ml Bedside Glucose 151 mg/dl Test 09/21/16 23:00 09/21/16 23:13 09/22/16 00:00 09/22/16 05:52 Creatine Kinase MB Ratio Creatine Kinase MB 3.2 ng/ml Troponin I 0.249 ng/ml Urine Color YELLOW Urine Appearance CLOUDY Urine pH 6.5 Urine Specific [place] 1.012 Urine Protein 3+ Urine Glucose (UA) 2+ Urine Ketones NEG Urine Occult Blood 1+ Urine Nitrite NEG Urine Bilirubin NEG Urine Urobilinogen NEG Urine Leukocyte Esterase SMALL Urine WBC (Auto) >30 /hpf Urine RBC (Auto) 0-4 /hpf Urine Hyaline Casts (Auto) 0 /lpf Urine Epithelial Cells (Auto) >30 /lpf Urine Bacteria (Auto) NEG Urine Pathogenic Casts /lpf White Blood Count 13.38 K/uL Red Blood Count 3.48 M/uL Hemoglobin 10.5 g/dL Hematocrit 32.6 % Mean Corpuscular Volume 93.7 fL Mean Corpuscular Hemoglobin 30.2 pg Mean Corpuscular Hemoglobin Concent 32.2 g/dl Platelet Count 318 K/uL Mean Platelet Volume 10.8 fL Neutrophils (%) (Auto) 64.6 % Lymphocytes (%) (Auto) 23.9 % Monocytes (%) (Auto) 8.9 % Eosinophils (%) (Auto) 2.1 % Basophils (%) (Auto) 0.2 % Neutrophils # (Auto) 8.64 K/uL Lymphocytes # (Auto) 3.20 K/uL Monocytes # (Auto) 1.19 K/uL Eosinophils # (Auto) 0.28 K/uL Basophils # (Auto) 0.03 K/uL RDW Standard Deviation 49.3 fL RDW Coefficient of Variation 14.8 % Immature Granulocyte % (Auto) 0.3 % Immature Granulocyte # (Auto) 0.04 K/uL Sodium Level 136 mmol/L Potassium Level 4.7 mmol/L Chloride Level 97 mmol/L Carbon Dioxide Level 25 mmol/L Anion Gap 14.0 mmol/L Blood Urea Nitrogen 49 mg/dl Creatinine 12.00 mg/dl Est Creatinine Clear Calc Drug Dose 7.0 ml/min Estimated GFR () 3.8 Estimated GFR (Non- 3.3 BUN/Creatinine Ratio 4.1 Random Glucose 97 mg/dl Calcium Level 9.2 mg/dl Magnesium Level 2.5 mg/dl Test 09/22/16 06:28 09/22/16 07:44 09/22/16 12:55 09/22/16 13:18 Lactic Acid Level 1.0 mmol/L Bedside Glucose 124 mg/dl 128 mg/dl 135 mg/dl Test 09/22/16 13:42 Assessment and Plan CHEST PAIN, MILDLY ELEVATED TROP, HX CAD - admit to tele - s/p BMS to circumflex 03/2016 - trop 0.180 -> 0.268 -> 0.249 - resting echo pending - ESRD likely contributing to troponin elevation - ? due to hypertensive urgency and/or GERD - continue ASA, Plavix, beta silvia, statin, and nitrate - cardio consult placed with Dr. Venegas - case discussed with him LEFT HAND PAIN/PARESTHESIA - improving - ? due to moderate stenosis of brachial artery, radial artery distribution noted on arterial US - vascular checks q4h - vascular surgery consult HYPERTENSIVE URGENCY - resolved - BP improved with home doses of BP meds LEUKOCYTOSIS - WBC 17K -> 13K today - ? stress response from pain/vomiting - no obvious source of infection currently - blood and urine cultures pending - no infiltrate on CXR - has necrotic tissue to right index finger/left great toe - improving/ unchanged per patient - afebrile - POC lactic acid elevated, however serum WNL - patient currently taking cephalexin for right index finger - will continue with for now ISCHEMIC CARDIOMYOPATHY - EF 40-45% - volume managed with dialysis HYPERKALEMIA, ESRD ON HD - K+ normalized - no EKG changes - nephro consulted for HD orders - dialysis needle became dislodged during treatment and patient had EBL 300ml, will check H/H DM - on Lantus at home however well known to our service and due to forced diet compliance while hospitalized usually only requires SSI DVT PROPHYLAXIS - SQ Heparin
[2016-09-22 14:17] LABS: HEMATOCRIT 35.8 % (37-47)
--- NOTE | 2016-09-22 14:24 | Surgery Consultation ---
Consultation Date of Service Sep 22, 2016. Chief Complaint L hand pain, numbness. Also malfunctioning AVF History of Present Illness The patient is a 50 year old female with multiple medical problems, including ESRD on HD, HTN, DMII, CAD, morbid obesity, known to vascular service for HD access and carotid stenosis, seen today d/t sudden onset L hand pain and pallor associated with chest pains that started while in the shower yesterday. Pt states the pain is much better today, but her hand is still sensitive. No lesions to L hand/fingers. US performed in ED yesterday demonstrates diffuse arterial disease. 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 Denies any other new complaints, although dialysis staff state she has been difficult to run d/t low arterial flows. Denies NELSON, fever, chills, chest pain today, SOB, abd pain, N/V, rest pain, claudication, other complaints. Vitals Vital Signs Past 12 Hours Date Time Temp Pulse Resp B/P Pulse Ox O2 Delivery O2 Flow Rate FiO2 09/22/16 12:00 99 Room Air 09/22/16 11:45 60 116/53 09/22/16 11:45 71 97/37 09/22/16 11:30 63 108/36 09/22/16 11:15 78 99/80 09/22/16 11:00 66 104/47 09/22/16 10:45 71 105/74 09/22/16 10:30 63 112/47 09/22/16 10:15 63 106/48 09/22/16 10:00 64 98/56 09/22/16 09:45 61 119/50 09/22/16 09:30 61 107/40 09/22/16 09:15 58 106/62 09/22/16 09:00 60 92/44 09/22/16 08:45 66 118/47 09/22/16 08:35 65 133/43 09/22/16 08:28 36.6 71 104/26 09/22/16 08:14 36.6 66 20 145/72 99 Room Air 09/22/16 08:00 99 Room Air 09/22/16 04:48 36.6 55 20 81/40 95 Room Air 09/22/16 04:00 Room Air Allergies Coded Allergies: Adhesives (Verified Allergy, Mild, RASH, SORES, 09/21/16) Pollen Extract (Unverified Allergy, Unknown, rash, 09/21/16) Home Medications Scheduled Aspirin (Aspirin Ec), 81 MG PO DAILY Atorvastatin (Lipitor), 40 MG PO DAILY Calcium Acetate (Phoslo 667 Mg), 1 CAP PO WM Cephalexin Monohydrate (Cephalexin), 1 CAP PO BID Clopidogrel Bisulfate (Plavix), 1 TAB PO DAILY Insulin Glargine (Lantus Solostar), 10 UNITS SC QPM Isosorbide Mononitrate (Isosorbide Mononitrate ER), 60 MG PO QAM Isosorbide Mononitrate Ext Rel (Imdur Ext Rel), 30 MG PO QAM Metoprolol Tartrate (Lopressor), 50 MG PO BID Ranitidine Hcl (Zantac), 300 MG PO HS Sertraline HCl (Sertraline HCl), 2 TAB PO DAILY Scheduled PRN Lorazepam (Ativan), 0.5 MG PO DAILY PRN for Anxiety Methocarbamol (Methocarbamol), 500 MG PO BID PRN for Muscle Spasms Tramadol (Ultram), 1 TAB PO TID PRN for Pain Problem List Medical Problems: (1) Allergic rhinitis (2) CAD (coronary artery disease) (3) Carotid stenosis (4) DM type 2 (diabetes mellitus, type 2) (5) Dyslipidemia (6) ESRD (end stage renal disease) on dialysis (7) GERD (gastroesophageal reflux disease) (8) HTN (hypertension) (9) HX OF PAST NONCOMPLIANCE (10) Ischemic cardiomyopathy (11) Morbid obesity (12) Tobacco use disorder Surgical Problems: (1) Hemodialysis access, AV graft Surgical / Medical History Hx Cardiac Surgery: Yes (angioplasty with stenting) Hx Abdominal Surgery: No Hx Cancer Surgery: No Hx Thoracic Surgery: No Hx Orthopedic: No Hx Urinary Tract Surgery: No Past Medical/Surgical History: Diabetes, Heart Disease, High Cholesterol, Hypertension, Kidney Disease Family History Diabetes mellitus FATHER MOTHER Heart disease FATHER MOTHER Hypertension FATHER MOTHER Kidney disease GRANDMOTHER Social History Smoking Status: Former Smoker Hx Tobacco Use In Past Year?: No Hx Alcohol Use - Type & Amnt: No Hx Substance Use -Type & Amnt: No Review of Systems Constitutional: No chills, No malaise Eyes: No visual changes ENMT: No sore throat Respiratory: No [place], No cough, No hemoptysis, No short of breath Cardiovascular: + edema (occasional, chronic), No chest pain, No intermittent claudication, No palpitations, No syncope Gastrointestinal: No abdominal pain, No nausea, No vomiting Neurologic: + numbness (L hand), No dizziness, No headache, No lethargy, No tingling Physical Exam Constitutional: General Apperance: well-nourished, well-developed, obese Level of Distress: NAD, chronically ill Psychiatric: Mental Status: active & alert, normal mood, normal affect Orientation: oriented except where noted, to time, to place, to person Memory: recent memory normal, remote memory normal Head: normocephalic, atraumatic Eyes: EOM: EOMI ENMT: normal ENT inspection, hearing grossly normal Neck: supple, trachea midline Lungs: Respiratory effort: no dyspnea Auscultation: no rales/crackles, no rhonchi, decreased breath sounds Cardiovascular: Apical Impulse: not displaced Heart Auscultation: RRR, no murmurs, no rubs, no gallops Peripheral Pulses: Pulses: full and equal, in all extremities except if noted Bruits: none appreciated Carotid Pulse: normal on the left, normal on the right Brachial Pulses: normal on the left, normal on the right Radial Pulse: decreased on the left, decreased on the right Ulnar Pulse: decreased on the left, decreased on the right Femoral Pulse: normal on the left, normal on the right Posterior Tibialis Pulse: decreased on the left, decreased on the right Dorsalis Pedis Pulse: decreased on the left, decreased on the right Abdomen: Bowel Sounds: normal Inspection & Palpation: soft, non-distended, no tenderness, guarding & rebound Musculoskeletal: normal strength (5/5 throughout), normal tone Extremities: Upper Right: no edema, no varicosities, gangrene (2nd finger tip) Upper Left: no cyanosis, no edema, no varicosities, no mottling, pertinent finding (Both hands cool, + cap refill at 4sec BUE) Lower Right: no edema, no varicosities Lower Left: no cyanosis, no edema, no varicosities, gangrene (toe) Neurologic: Cranial Nerves: grossly intact Sensation: grossly intact Assessment and Plan ASSESSMENT and PLAN: L hand numbness Malfunctioning LUE AVF Discussed with Dr Simoni. Will obtain US of LUE HD AVF for flow rate and possible stenosis, as well as rule out vascular steal syndrome. Per outpt HD unit, they have had some flow rate problems as well. Will consider fistulagram if US demonstrates stenotic area. L hand pain, pallor, and numbness resolving. Likely related to PAD and small vessel disease, as no arterial occlusion noted on US. Also planning on possible oupt L CEA d/t severe stenosis, may order CTA of neck while inpt.
--- NOTE | 2016-09-22 17:32 | ECHOCARDIOGRAM REPORT ---
*NOTICE TO RECEIVING [employer] This information is strictly Confidential and protected under [place] law. [place] law prohibits you from making any further disclosure of this information unless further disclosure is expressly permitted by the written consent of the person to whom it pertains or is authorized by law. A general authorization for the release of medical or other information is not sufficient for this purpose. Hospital accepts no responsibility if the information is made available to any other person, INCLUDING THE PATIENT. Interpretation Summary * Name: JAILENE PERRY Study Date: 09/22/2016 02:19 PM BP: 81/40 mmHg * Patient Location: .[facility]\S\N287\S\2 HR: 55 * : 1965 (M/d/yyyy) Gender: Female Height: 66 in * Age: 50 yrs Ethnicity: CA Weight: 240 lb * Ordering Physician: Kely Martinez * Performed By: Guerda Mansfield RDCS * * Reason For Study: Chest pain * BSA: 2.2 m2 * -- Conclusions -- * 1. Normal LV size, borderline concentric LVH. * 2. Normal LV systolic function. LVEF 55-60%. Base to mid inferior. inferoseptal severe hypokinesis. * 3. Grade I diastolic dysfunction * 4. Normal RV size, mild RV dysfunction. * 5. Aortic valve sclerosis without stenosis. * 6. Compared with prior study on 06/02/2016: No significant changes. Procedure Details * A complete two-dimensional transthoracic echocardiogram was performed (2D, M-mode, Doppler and color flow Doppler). Left Ventricle * The left ventricle is grossly normal size. * There is borderline concentric left ventricular hypertrophy. * Ejection Fraction = 55-60%. * There is severe inferior wall hypokinesis. Right Ventricle * The right ventricle is grossly normal size. * The right ventricular systolic function is mildly reduced. Atria * Borderline left atrial enlargement. * Right atrial size is normal. * No ASD detected; PFO is not assessed. Mitral Valve * The mitral valve is grossly normal. * There is mild mitral annular calcification. * There is no mitral valve stenosis. * Significant mitral regurgitation is absent. Tricuspid Valve * The tricuspid valve is not well visualized, but is grossly normal. * There is no tricuspid stenosis. * Significant tricuspid regurgitation is absent. Aortic Valve * The aortic valve opens well. * Aortic valve sclerosis mild, without significant aortic valvular stenosis. * The aortic valve is trileaflet. * No hemodynamically significant valvular aortic stenosis. * There is no significant aortic regurgitation. Pulmonic Valve * The pulmonary valve is inadequately visualized, but the Doppler data is adequate for interpretation. * Pulmonic stenosis is absent. * There is no significant pulmonary regurgitation. Great Vessels * The aortic root and proximal ascending aorta are normal sized. Pericardium/Pleural * There is no pericardial effusion. Great Vessels * IVC < 2.1 cm, minimal change with respiration. Left Ventricular Diastolic Function * Grade I diastolic dysfunction, (abnormal relaxation pattern). MMode 2D Measurements and Calculations IVSd 1.1 cm LVIDd 5.2 cm LVIDs 3.7 cm LVPWd 1.0 cm IVS/LVPW 1.1 FS 28.2 % EDV(Teich) 127.5 ml ESV(Teich) 58.4 ml EF(Teich) 54.2 % EDV(cubed) 137.8 ml ESV(cubed) 50.9 ml EF(cubed) 63.1 % LV mass(C)d 208.0 grams LV mass(C)dI 96.2 grams/m\S\2 CO(Teich) 4.7 l/min CI(Teich) 2.2 l/min/m\S\2 SV(Teich) 69.2 ml SI(Teich) 32.0 ml/m\S\2 CO(cubed) 5.9 l/min CI(cubed) 2.7 l/min/m\S\2 SV(cubed) 86.9 ml SI(cubed) 40.2 ml/m\S\2 Ao root diam 2.6 cm Ao root area 5.2 cm\S\2 ACS 1.9 cm LA dimension 4.0 cm asc Aorta Diam 3.2 cm LA/Ao 1.5 LVOT diam 2.0 cm LVOT area 3.0 cm\S\2 LVAd ap4 30.3 cm\S\2 LVLd ap4 8.3 cm EDV(MOD-sp4) 91.0 ml LVAs ap4 18.1 cm\S\2 LVLs ap4 7.3 cm ESV(MOD-sp4) 39.0 ml EF(MOD-sp4) 57.1 % LVAd ap2 16.1 cm\S\2 LVLd ap2 5.8 cm EDV(MOD-sp2) 39.0 ml LVAs ap2 10.4 cm\S\2 LVLs ap2 5.2 cm ESV(MOD-sp2) 18.0 ml EF(MOD-sp2) 53.8 % CO(MOD-sp4) 3.5 l/min CI(MOD-sp4) 1.6 l/min/m\S\2 SV(MOD-sp4) 52.0 ml SI(MOD-sp4) 24.1 ml/m\S\2 CO(MOD-sp2) 1.4 l/min CI(MOD-sp2) 0.66 l/min/m\S\2 SV(MOD-sp2) 21.0 ml SI(MOD-sp2) 9.7 ml/m\S\2 Doppler Measurements and Calculations MV E max william 46.3 cm/sec MV A max william 59.0 cm/sec MV E/A 0.79 MV dec time 0.32 sec Ao V2 max 133.3 cm/sec Ao max PG 7.1 mmHg Ao max PG (full) 4.0 mmHg INA(V,A) 2.0 cm\S\2 INA(V,D) 2.0 cm\S\2 LV V1 max PG 3.1 mmHg LV V1 max 88.4 cm/sec PA V2 max 116.7 cm/sec PA max PG 5.5 mmHg PA acc slope 668.9 cm/sec\S\2 PA acc time 0.12 sec PA pr(Accel) 23.5 mmHg
[2016-09-22] MEDS: RANITIDINE HCL 150 MG TAB PO SCH (20:49)
--- NOTE | 2016-09-22 22:51 | CARDIOLOGY CONSULTATION ---
DATE OF CONSULTATION: 09/22/2016 CONSULTATION REQUESTED BY: Dr. Parham REASON FOR CONSULTATION: Chest pain, mildly elevated troponin. HISTORY OF PRESENT ILLNESS: Ms. Gilbert is a very pleasant 50-year-old woman with a history of coronary artery disease status post prior bare metal stent to her obtuse marginal, known to me from prior hospital and outpatient care, who was admitted in the setting of left arm/hand numbness and pain with associated mild chest discomfort. Cardiology was consulted for chest discomfort and mildly elevated troponin. The patient had recently been admitted one week prior in the setting of shortness of breath and chest fullness after missing dialysis. The symptoms resolved after receiving dialysis while admitted. She returned home and the day of admission noticed that the third digit on her left hand was cool, white and numb. She also noticed pain in her left hand. While experiencing that pain, she then developed some mild chest tightness. She states that after belching several times the pain began to resolve. She then received some Zofran by EMS and the pain completely resolved. Since that time, her hand numbness and tingling has also improved. Upon arrival here, she was initially hypertensive with systolic blood pressures in the 200s. She had initial [id number] troponin that was positive at 0.1. Subsequent troponins went up to 0.27 and down to 0.25. Initial EKG showed sinus rhythm with inferior Q-waves, and new lateral T-wave inversions in I and aVL. Since admission, she has had no events on telemetry and has remained chest pain free. She is being evaluated by vascular surgery for potential vascular steal or issues with her current AV fistula in her left upper extremity. PAST MEDICAL HISTORY: 1. Coronary artery disease status post bare metal stent to OM in March 2016; at that time was noted to have a completely occluded right coronary artery. 2. End-stage renal disease, on hemodialysis. 3. Diabetes. 4. Hyperlipidemia. 5. Peripheral artery disease with known severe carotid artery disease, awaiting carotid endarterectomy. 6. GERD, morbid obesity, dry gangrene of the fourth digit on her right hand. FAMILY HISTORY: Denies any history of premature coronary artery disease or sudden cardiac . SOCIAL HISTORY: She is a former smoker. She is and currently lives with her family. She is currently on disability. ALLERGIES: TO ADHESIVES AND POLLEN EXTRACT. HOME MEDICATIONS: Include aspirin 81, atorvastatin 20, PhosLo, Keflex, Plavix 75, insulin Glargine, isosorbide mononitrate 90 mg total, lorazepam, methocarbamol, metoprolol 25 mg b.i.d., ranitidine, sertraline and tramadol. REVIEW OF SYSTEMS: Complete and otherwise negative as listed in the HPI. PHYSICAL EXAMINATION: VITAL SIGNS: Temperature 36.5, pulse 76, blood pressure 116/53, she is satting 99% on room air. GENERAL: The patient appears well, in no acute distress. HEENT: Sclerae anicteric. Oropharynx is clear. Mucous membranes are moist. NECK: Supple. She has no lymphadenopathy. She has no palpable carotid pulse on the left. LUNGS: She has normal breath sounds with few crackles at the right base. CARDIAC: She has distant heart sounds, but is regular with no appreciable murmurs, rubs or gallops. ABDOMEN: Soft, obese, nontender with positive bowel sounds. EXTREMITIES: Cool bilaterally. She has barely palpable DP pulses bilaterally. PT pulses were not palpable. She has a 1+ radial pulse on the right, has an intact fistula on the left with palpable thrill. SKIN: Shows no significant rashes or lesions. NEUROLOGIC: Cranial nerves II-XII grossly intact. Remainder of exam nonfocal. PSYCHIATRIC: She is alert and oriented x3 with appropriate affect. LABORATORY DATA: Sodium 133, potassium 5.5, BUN 71, creatinine of 14. She had troponins of 0.18, 0.27 and 0.25. INR of 1.2. Hemoglobin 10.5, platelets of 318. White blood cell count was 13.4. IMAGING: Upper extremity ultrasound showed normal airway flow through the brachial arterial fistula with diminished velocity characteristics consistent with least moderate stenosis. There was dampened flow within the arterial structures of the distal forearm and palm suggestive of possible stenosis. Chest x-ray showed no acute cardiopulmonary process. EKG showed a sinus rhythm with inferior Q-waves and lateral T-wave inversions in I and aVL. Telemetry sinus rhythm, occasional PACs. No complex arrhythmias. Echo from today reviewed shows low normal LV function with inferior base to mid wall motion abnormality, unchanged from prior. No significant new valvular abnormalities. No significant regional wall motion abnormalities other than those previously noted. IMPRESSION AND PLAN: 1. Mild troponin elevation. 2. End-stage renal disease, on dialysis. 3. Possible upper extremity arterial insufficiency. 4. History of coronary artery disease status post prior stent to the obtuse marginal. 5. Anemia. 6. Ischemic cardiomyopathy with ejection fraction of approximately 45%. The patient is here in the setting of upper extremity pain and numbness, potentially secondary to arterial insufficiency being evaluated by vascular surgery. In the setting of this, she was noted to have some mild chest tightness. This was associated with minimally elevated troponin, unchanged significantly from prior admission in the setting of missed dialysis. My suspicion that this represents a true ACS event is low and I do not feel that needs full dose anticoagulation or more urgent risk stratification at this time. The patient does have a history of CAD and does have some new T-wave inversions on ECG and as such would consider stress test as an outpatient prior to planned possible carotid endarterectomy. Otherwise, would continue on her home medications. From a cardiac standpoint, does not need dual antiplatelet therapy, but it being used for peripheral artery disease can continue. Otherwise, continue on home statin and blood pressure medicines per nephrology. We will continue to follow while patient is in the hospital. Thank you for allowing us to participate in the care of this patient. Please contact with any questions. BALTAZAR
[2016-09-23 04:15] VITALS: BP 132/83; PULSE 66; TEMP 36.4; O2SAT 95
[2016-09-23 07:27] LABS: HEMATOCRIT 35.6 % (37-47); MEAN CELL VOLUME 94.2 fL (80-100); MEAN CORPUSCULAR HEMOGLOBIN 30.2 pg (25-34); PLATELET COUNT 282 K/uL (130-400); RED BLOOD COUNT 3.78 M/uL (4.2-5.4); WHITE BLOOD COUNT 8.79 K/uL (4.8-10.8)
[2016-09-23 07:42] VITALS: BP 144/84; PULSE 73; TEMP 36.8; O2SAT 98
[2016-09-23 08:10] VITALS: O2SAT 98
[2016-09-23 08:10] LABS: BUN/CREATININE RATIO 4.4 (10-20); CALCIUM 9.4 mg/dl (8.5-10.1); CREATININE 8.9 mg/dl (0.60-1.20); POTASSIUM 4.5 mmol/L (3.5-5.1)
[2016-09-23] MEDS: CALCIUM ACETATE 667MG GELCAP PO SCH ×2 (08:25→12:16)
[2016-09-23] MEDS: CLOPIDOGREL BISULFATE 75 MG TAB PO SCH (08:26)
[2016-09-23] MEDS: CEPHALEXIN MONOHYDRATE 500 MG CAP PO SCH (08:26)
[2016-09-23] MEDS: ATORVASTATIN 40 MG TAB PO SCH (08:26)
[2016-09-23] MEDS: ASPIRIN 81 MG ECTAB PO SCH (08:26)
[2016-09-23] MEDS: METOPROLOL TARTRATE 50 MG TAB PO SCH (08:26)
[2016-09-23] MEDS: HEPARIN SOD 5000 UNIT/0.5 ML CARP SQ SCH (08:30)
[2016-09-23] MEDS: INSULIN ASPART 100 UNITS/ML 3 ML PEN SC SCH ×2 (08:30→12:18)
--- NOTE | 2016-09-23 09:43 | DIAGNOSTIC IMAGING REPORT ---
CT ANGIOGRAM OF THE NECK COMBO CLINICAL HISTORY: Carotid stenosis. COMPARISON STUDY: CT scan of the neck dated 10/26/2015. TECHNIQUE: Before and following the IV administration of 119 of Optiray 320, CT angiogram of the neck was performed from the aortic arch to the skull base. Images are reviewed in the axial, sagittal, and coronal planes. 3-D MIPS images are created and assessed. IV contrast was administered without complication. All measurements were calculated based on NASCET criteria. CT DOSE: 777.08 mGy.cm FINDINGS: Thoracic aorta: There is mild atherosclerotic calcification of the thoracic aorta. Visualized portions of the thoracic aorta are normal in caliber. The aortic arch demonstrates bovine variant anatomy. Subclavian arteries: Widely patent bilaterally. Right carotid arterial system: The right common carotid artery is widely patent. There is atherosclerotic plaque and irregularity in the carotid bulb. This causes only mild (less than 50%) narrowing at the origin of the right internal carotid artery. The remainder of the internal carotid artery as well as the right external carotid artery are widely patent. Left carotid arterial system: The left common carotid artery is widely patent. There is extensive atherosclerotic plaque and calcification seen in the left carotid bulb. There is high-grade stenosis at the origin of the left internal carotid artery (greater than 90%). The minimum patent luminal diameter measures 1 mm. The length of stenosis extends approximately 5 mm. The remainder of the left internal carotid artery as well as the left external carotid artery are widely patent. Vertebral arteries: The vertebral arteries are widely patent and codominant. Intracranial vasculature: There is advanced atherosclerotic calcification present in the carotid bulbs. The visualized intracranial vessels appear patent. There is origin of the right posterior cerebral artery. Jugular veins: Widely patent bilaterally. Brain parenchyma: The visualized brain parenchyma the skull base is within normal limits. Lung apices: Mild emphysematous change is noted. Partially visualized upper lobe lung parenchyma is otherwise clear. Soft tissues: The visualized pharyngeal soft tissues are normal in appearance noting angiographic phase technique. The oropharyngeal airway appears widely patent. Subcentimeter thyroid nodules are present in both lobes. The thyroid gland is otherwise normal in appearance. The salivary glands are within normal limits. No cervical lymphadenopathy is seen. Small calcified tonsilliths are observed. Orbits: The bony orbits appear intact. Orbital contents are within normal limits. Sinuses and mastoids: Clear. Skeletal structures: The visualized calvarium at the skull base appears intact. The imaged cervical spine is within normal limits. IMPRESSION: 1. There is focal high-grade stenosis (greater than 90%) at the origin of the left internal carotid artery. 2. The remainder of the left carotid arterial system is widely patent. 3. There is atherosclerotic plaque with mild luminal narrowing (less than 50%) at the origin of the right internal carotid artery. The right carotid arterial system is otherwise widely patent. 4. The vertebral arteries are widely patent. 5. Mild emphysema. 6. Additional changes as above. Electronically signed by: Uriel Thomson M.D. 09/23/2016 9:41 AM Dictated Date/Time: 09/23/2016 9:31 AM
[2016-09-23] MEDS ORDERED: DOCUSATE SODIUM 100 MG CAP PO SCH (10:30)
[2016-09-23 12:12] VITALS: BP 122/73; PULSE 56; TEMP 36.6; O2SAT 98
--- NOTE | 2016-09-23 14:14 | Progress Note ---
Progress Note Vascular lab here not able to do blood flow volumes. May need to send her to my office to have the study done when she is stable enough per her primary service. Blood flow volume may determine whether we need to revise the fistula.
[2016-09-23 15:19] VITALS: BP 124/81; PULSE 60; TEMP 36.8; O2SAT 96
--- NOTE | 2016-09-23 16:14 | Discharge Instructions ---
Discharge Instructions Admission Reason for Admission: Chest Pain, Left Hand Pain and Numbness Discharge Discharge Diagnosis / Problem: Chest Pain, Left Hand Pain and Numbness Discharge Goals Goal(s): Decrease discomfort, Improve function Activity Recommendations Activity Limitations: resume your previous activity . Instructions / Follow-Up Instructions / Follow-Up IT IS VERY IMPORTANT FOR YOU TO KEEP YOUR DIALYSIS SCHEDULE - YOU ARE SCHEDULED TO GO TOMORROW (SUNDAY 09/24) AT YOUR REGULAR CLINIC Follow up with Dr. Becerra TuesdaySeptember 28 at 10:50 Call and make an appointment with Dr. Jones for next week Follow up with orthopedics as previously scheduled You do not need to take the anabiotic anymore - Keflex (cephalexin) Continue to take your other medicines as prescribed Current Hospital Diet Patient's current hospital diet: Renal Diet Discharge Diet Recommended Diet: AHA Diet (Heart Healthy), Diabetes Type 2 Diet, Renal Diet Pending Studies Studies pending at discharge: no Medical Emergencies . Who to Call and When: Medical Emergencies: If at any time you feel your situation is an emergency, please call 911 immediately. . Non-Emergent Contact Non-Emergency issues call your: Primary Care Provider . . "Provider Documentation" section prepared by Kely Martinez. VTE Core Measure Inpt VTE Proph given/why not?: Unfractionated heparin SQ
[2016-09-23 16:28] VITALS: BP 124/81; PULSE 60; TEMP 36.8; O2SAT 96
--- NOTE | 2016-09-23 16:53 | Hospitalist Progress Note ---
Hospitalist Progress Note Date of Service Sep 23, 2016. Subjective Patient seen and examined. Feeling little better today. No further episodes of chest pain or left hand numbness/cyanosis. Pain continues to improve. Reports constipation. No abdominal pain or nausea. Denies lightheadedness, dizziness, and shortness of breath. Objective Vital Signs Date Time Temp Pulse Resp B/P Pulse Ox O2 Delivery O2 Flow Rate FiO2 09/23/16 16:28 36.8 60 20 96 Room Air 09/23/16 15:19 36.8 60 20 124/81 96 Room Air 09/23/16 12:15 Room Air 09/23/16 12:12 36.6 56 20 122/73 98 Room Air 09/23/16 08:10 Room Air 09/23/16 08:10 98 Room Air 09/23/16 07:42 36.8 73 20 144/84 98 Room Air 09/23/16 04:15 36.4 66 18 132/83 95 Room Air 09/23/16 04:00 Room Air 09/23/16 00:00 Room Air 09/22/16 23:35 36.6 68 18 102/62 97 Room Air 09/22/16 20:25 36.9 73 18 108/54 97 Room Air 09/22/16 20:00 Room Air Physical Exam General Appearance: no apparent distress Eyes: normal inspection ENT: hearing grossly normal Neck: supple, no JVD Respiratory/Chest: lungs clear, normal breath sounds, no respiratory distress Cardiovascular: regular rate, rhythm, no edema Abdomen: normal bowel sounds, non tender, soft Extremities: + pertinent finding (dialysis fistula noted to LUE, + thrill; CSM checks intact to LUE) Neurologic/Psychiatric: no motor/sensory deficits, alert, normal mood/affect, oriented x 3 Skin: normal color, warm/dry Laboratory Results Last 24 Hours Test 09/22/16 20:41 09/23/16 06:50 09/23/16 07:56 09/23/16 11:48 Bedside Glucose 94 mg/dl 110 mg/dl 163 mg/dl White Blood Count 8.79 K/uL Red Blood Count 3.78 M/uL Hemoglobin 11.4 g/dL Hematocrit 35.6 % Mean Corpuscular Volume 94.2 fL Mean Corpuscular Hemoglobin 30.2 pg Mean Corpuscular Hemoglobin Concent 32.0 g/dl RDW Standard Deviation 50.3 fL RDW Coefficient of Variation 14.6 % Platelet Count 282 K/uL Mean Platelet Volume 11.0 fL Sodium Level 135 mmol/L Potassium Level 4.5 mmol/L Chloride Level 97 mmol/L Carbon Dioxide Level 26 mmol/L Anion Gap 12.0 mmol/L Blood Urea Nitrogen 39 mg/dl Creatinine 8.90 mg/dl Est Creatinine Clear Calc Drug Dose 9.4 ml/min Estimated GFR () 5.5 Estimated GFR (Non- 4.7 BUN/Creatinine Ratio 4.4 Random Glucose 121 mg/dl Calcium Level 9.4 mg/dl Diagnostic Results NECK CTA IMPRESSION: 1. There is focal high-grade stenosis (greater than 90%) at the origin of the left internal carotid artery. 2. The remainder of the left carotid arterial system is widely patent. 3. There is atherosclerotic plaque with mild luminal narrowing (less than 50%) at the origin of the right internal carotid artery. The right carotid arterial system is otherwise widely patent. 4. The vertebral arteries are widely patent. 5. Mild emphysema. 6. Additional changes as above. Assessment and Plan CHEST PAIN, MILDLY ELEVATED TROP, HX CAD - admit to tele - s/p BMS to circumflex 03/2016 - trop 0.180 -> 0.268 -> 0.249 - resting echo unchanged from prior - ESRD and hypertensive urgency likely contributing to troponin elevation - continue ASA, Plavix, beta silvia, statin, and nitrate - cardio consult placed with Dr. Venegas - low suspicion of ACS LEFT HAND PAIN/PARESTHESIA - improving - ? due to moderate stenosis of brachial artery, radial artery distribution noted on arterial US - vascular checks q4h - vascular surgery consult - will need outpatient follow up at vascular office to have US of fistula completed HYPERTENSIVE URGENCY - resolved - BP improved with home doses of BP meds LEUKOCYTOSIS - WBC 17K -> 13K -> 8K - ? stress response from pain/vomiting - no obvious source of infection currently - blood and urine cultures negative - no infiltrate on CXR - has necrotic tissue to right index finger/left great toe - improving/ unchanged per patient - afebrile - POC lactic acid elevated, however serum WNL - patient currently taking cephalexin for right index finger which was prescribed on 09/09 by PCP - patient has completed course therefore will d/c at discharge LEFT CAROTID STENOSIS - had CTA neck done - shows 90% left ICA stenosis - following with vascular for possible repair - per cardiology, will need stress test before surgery ISCHEMIC CARDIOMYOPATHY - EF normalized on echo - volume managed with dialysis HYPERKALEMIA, ESRD ON HD - K+ normalized - no EKG changes - nephro consulted for HD orders DM - on Lantus at home however well known to our service and due to forced diet compliance while hospitalized usually only requires SSI DVT PROPHYLAXIS - SQ Heparin
--- NOTE | 2016-09-23 17:02 | Discharge Summary ---
Discharge Summary Admission Date: Sep 21, 2016 at 14:26 Discharge Date: Sep 23, 2016 Discharge Disposition: Home Principal Diagnosis: CHEST PAIN LEFT HAND PAIN/PARESTHESIA HYPERTENSIVE URGENCY Secondary Diagnoses/Problems: LEUKOCYTOSIS LEFT CAROTID STENOSIS ISCHEMIC CARDIOMYOPATHY HYPERKALEMIA, ESRD ON HD DM Procedures: LUE ARTERIAL US IMPRESSION: 1. No significant stenotic process of the arm. 2. The patient's left brachial arterial fistula shows normal antegrade flow, although velocity characteristics are diminished consistent with at least a moderate stenotic process. 3. Dampened flow within the arterial structures of the distal forearm and palm, suggesting the possibility of significant stenotic change at the level of the fistula, as well as within the distal radial distribution at the level of the palm and wrist CXR IMPRESSION: Negative chest. LEFT FOOT XR IMPRESSION: 1. No evidence for osteomyelitis. 2. Extensive soft tissue vascular calcification. CTA NECK IMPRESSION: 1. There is focal high-grade stenosis (greater than 90%) at the origin of the left internal carotid artery. 2. The remainder of the left carotid arterial system is widely patent. 3. There is atherosclerotic plaque with mild luminal narrowing (less than 50%) at the origin of the right internal carotid artery. The right carotid arterial system is otherwise widely patent. 4. The vertebral arteries are widely patent. 5. Mild emphysema. 6. Additional changes as above. ECHO: 1. Normal LV size, borderline concentric LVH. 2. Normal LV systolic function. LVEF 55-60%. Base to mid inferior. inferoseptal severe hypokinesis. 3. Grade I diastolic dysfunction 4. Normal RV size, mild RV dysfunction. 5. Aortic valve sclerosis without stenosis. 6. Compared with prior study on 06/02/2016: No significant changes. Consultations: Dr. Mas, nephrology Dr. Venegas, cardiology Dr. Jones, vascular surgery Pending Studies/Follow-Up: Patient needs to follow up with Dr. Jnoes for US of her dialysis fistula - pending the results of that, she may need a fistulogram; also following with Dr. Jones for possible left CEA. If patient does undergo CEA, will need stress test prior to per cardiology. Medication Reconciliation Continued Medications: Aspirin (Aspirin Ec) 81 Mg Tab 81 MG PO DAILY Atorvastatin (Lipitor) 20 Mg Tab 40 MG PO DAILY, TAB Calcium Acetate (Phoslo 667 Mg) 667 Mg Cap 1 CAP PO WM, CAP Clopidogrel Bisulfate (Plavix) 75 Mg Tab 1 TAB PO DAILY for 90 Days, #90 TAB 1 Refill Insulin Glargine (Lantus Solostar) 100 Unit/Ml Inj 10 UNITS SC QPM, PEN Isosorbide Mononitrate (Isosorbide Mononitrate ER) 30 Mg Tabcr 60 MG PO QAM Isosorbide Mononitrate Ext Rel (Imdur Ext Rel) 30 Mg Ertab 30 MG PO QAM, TAB Lorazepam (Ativan) 1 Mg Tab 0.5 MG PO DAILY PRN for Anxiety, TAB Methocarbamol (Methocarbamol) 500 Mg Tab 500 MG PO BID PRN for Muscle Spasms Metoprolol Tartrate (Lopressor) 25 Mg Tab 50 MG PO BID, TAB Ranitidine Hcl (Zantac) 150 Mg Tab 300 MG PO HS, TAB Sertraline HCl (Sertraline HCl) 50 Mg Tab 2 TAB PO DAILY for 30 Days, #60 TAB 5 Refills Tramadol (Ultram) 50 Mg Tab 1 TAB PO TID PRN for Pain for 30 Days, #90 TAB Discontinued Medications: Cephalexin Monohydrate (Cephalexin) 1 Homepack Ea 1 CAP PO BID, #20 Admission Information HPI (per Admitting provider): 50 year old female who presents to the ER with chest pain, left hand pain, and left hand numbness. Patient was recently admitted to [facility] 09/14 - 09/17 for volume overload which was felt to be due to missing dialysis treatments. Patient reports that while she was in the shower today she developed left hand pain and her fingers were numb. She also noted her left middle finger was white. She then developed mid sternal chest pain which she describes as a pressure. She also had associated nausea and one episode of vomiting. She reports the hand pain was more severe than the chest pain. She then called EMS. She reports the chest pain started to ease up after she burped a couple of times. She reports complete resolution of the chest pain after receiving Zofran by EMS. She denies shortness of breath. No lightheadedness, dizziness, or diaphoresis. She denies abdominal pain or diarrhea. No fever or chills. She continues to make urine. She denies any urinary symptoms. Patient has necrotic tissue noted to right index finger and left great toe. She reports both are unchanged. In the ER, patient's left hand symptoms are improving. She is currently chest pain free. Trop is 0.180, EKG is unchanged from prior. She had an arterial doppler of the LUE that did not show any acute thrombosis. BP on presentation noted to be 217/97. Physical Exam (per Admitting): General Appearance: no apparent distress Head: normocephalic Eyes: normal inspection ENT: hearing grossly normal Neck: supple, no JVD Respiratory/Chest: lungs clear, normal breath sounds, no respiratory distress Cardiovascular: regular rate, rhythm, no edema Abdomen/GI: normal bowel sounds, non tender, soft Extremities/Musculoskelatal: + pertinent finding (posterior aspect of left hand noted to be mild mottling, sensation intact, + radial pulse; dialysis fistula notes to E, + thrill) Neurologic/Psych: no motor/sensory deficits, alert, normal mood/affect, oriented x 3 Skin: + pertinent finding (right index finger necrotic tissue noted, left great toe necrotic tissue noted) Hospital Course CHEST PAIN, MILDLY ELEVATED TROP, HX CAD - admitted to tele - trop 0.180 -> 0.268 -> 0.249 - resting echo unchanged from prior - ESRD and hypertensive urgency likely contributing to troponin elevation - continue ASA, Plavix, beta silvia, statin, and nitrate - cardio consult placed with Dr. Venegas - low suspicion of ACS LEFT HAND PAIN/PARESTHESIA - improving - ? due to moderate stenosis of brachial artery, radial artery distribution noted on arterial US - vascular checks q4h - vascular surgery consult - will need outpatient follow up at vascular office to have US of fistula completed HYPERTENSIVE URGENCY - resolved - BP improved with home doses of BP meds LEUKOCYTOSIS - WBC 17K -> 13K -> 8K - ? stress response from pain/vomiting - no obvious source of infection identified - blood and urine cultures negative - no infiltrate on CXR - has necrotic tissue to right index finger/left great toe - improving/ unchanged per patient - afebrile - POC lactic acid elevated, however serum WNL - patient currently taking cephalexin for right index finger which was prescribed on 09/09 by PCP - patient has completed course therefore will d/c at discharge LEFT CAROTID STENOSIS - had CTA neck done - shows 90% left ICA stenosis - following with vascular for possible repair - per cardiology, will need stress test before surgery ISCHEMIC CARDIOMYOPATHY - EF normalized on echo - volume managed with dialysis HYPERKALEMIA, ESRD ON HD - K+ normalized - no EKG changes - nephro consulted for HD orders DM - on Lantus at home however well known to our service and due to forced diet compliance while hospitalized usually only requires SSI; resume home dose of Lantus at discharge Total time spent on discharge = This includes examination of the patient, discharge planning, medication reconciliation, and communication with other providers. Discharge Instructions Discharge Instructions Admission Reason for Admission: Chest Pain, Left Hand Pain and Numbness Discharge Discharge Diagnosis / Problem: Chest Pain, Left Hand Pain and Numbness Discharge Goals Goal(s): Decrease discomfort, Improve function Activity Recommendations Activity Limitations: resume your previous activity . Instructions / Follow-Up Instructions / Follow-Up IT IS VERY IMPORTANT FOR YOU TO KEEP YOUR DIALYSIS SCHEDULE - YOU ARE SCHEDULED TO GO TOMORROW (SUNDAY 09/24) AT YOUR REGULAR CLINIC Follow up with Dr. Becerra TuesdaySeptember 28 at 10:50 Call and make an appointment with Dr. Jones for next week Follow up with orthopedics as previously scheduled You do not need to take the anabiotic anymore - Keflex (cephalexin) Continue to take your other medicines as prescribed Current Hospital Diet Patient's current hospital diet: Renal Diet Discharge Diet Recommended Diet: AHA Diet (Heart Healthy), Diabetes Type 2 Diet, Renal Diet Pending Studies Studies pending at discharge: no Medical Emergencies . Who to Call and When: Medical Emergencies: If at any time you feel your situation is an emergency, please call 911 immediately. . Non-Emergent Contact Non-Emergency issues call your: Primary Care Provider . . "Provider Documentation" section prepared by Kely Martinez. VTE Core Measure Inpt VTE Proph given/why not?: Unfractionated heparin SQ Additional Copies To Tamy Becerra D.O.
[2016-09-23] MEDS ORDERED: SERTRALINE HCL 100 MG TAB PO SCH (21:00)
[2016-10-01] MEDS ORDERED: PRED10TA PO (15:48)
[2016-10-29] MEDS ORDERED: MTR500 PO (12:40)
[2016-10-29] MEDS ORDERED: ONDA4TAB46 PO (12:40)
[2016-10-29] MEDS ORDERED: LCTX PO (12:40)
[2016-10-29] MEDS ORDERED: MYC10 MT (12:40)
[2016-10-29] MEDS ORDERED: LVQ500 PO (12:40)
[2016-12-13] MEDS ORDERED: LEVO1TAB34 PO (13:44)
[2017-01-18] MEDS ORDERED: LEVO1TAB33 PO (11:06)
[2017-02-09] MEDS ORDERED: DOXY-300 PO (11:08)
[2017-03-31] MEDS ORDERED: FLUT50SP45 (09:13)
[2017-03-31] MEDS ORDERED: LPT/40 PO (09:13)
[2017-03-31] MEDS ORDERED: LORA5CHW10 PO (09:13)
[2017-03-31] MEDS ORDERED: SERT1TAB68 PO (09:13)
[2017-03-31] MEDS ORDERED: PANT40TA PO (11:36)
[2017-03-31] MEDS ORDERED: DICY10CA12 PO (11:36)
[2017-03-31] MEDS ORDERED: TRMCR515 TOP (14:18)
[2017-03-31] MEDS ORDERED: METO50TA16 PO (14:18)
[2017-03-31] MEDS ORDERED: ASPI-435 PO (15:36)
[2017-03-31] MEDS ORDERED: INSDGIPEN SC (21:11)
[2017-04-28] MEDS ORDERED: TPRSR/50 PO (13:22)
== END 2016-09-23 17:06 | disposition home or self-care (01) | DRG 314 ==
LOC: ENRESERVDT → ENRESERVTM → EDBD 11:23 → C.EDC 11:25 → C.MED 14:26 → EDBEDREQ 14:36
PROVIDERS: ADMIT Internal Medicine; ATTEND Internal Medicine
DX: T82.858A Stenosis of other vascular prosthetic devices, implants and grafts, initial encounter (principal); N18.6 End stage renal disease; I12.0 Hypertensive chronic kidney disease with stage 5 chronic kidney disease or end stage renal disease; E11.52 Type 2 diabetes mellitus with diabetic peripheral angiopathy with gangrene; Y71.2 Prosthetic and other implants, materials and accessory cardiovascular devices associated with adverse incidents; I73.9 Peripheral vascular disease, unspecified; R07.9 Chest pain, unspecified; M79.642 Pain in left hand; R20.2 Paresthesia of skin; I16.0 Hypertensive urgency; E87.5 Hyperkalemia; R79.89 Other specified abnormal findings of blood chemistry; R11.2 Nausea with vomiting, unspecified; D72.829 Elevated white blood cell count, unspecified; I25.5 Ischemic cardiomyopathy; I65.22 Occlusion and stenosis of left carotid artery; K21.9 Gastro-esophageal reflux disease without esophagitis; E11.22 Type 2 diabetes mellitus with diabetic chronic kidney disease; E78.00 Pure hypercholesterolemia, unspecified; E78.5 Hyperlipidemia, unspecified; I25.10 Atherosclerotic heart disease of native coronary artery without angina pectoris; D63.1 Anemia in chronic kidney disease; I25.2 Old myocardial infarction; E66.01 Morbid (severe) obesity due to excess calories; Z68.37 Body mass index [BMI] 37.0-37.9, adult; Z99.2 Dependence on renal dialysis; Z91.19 Patient's noncompliance with other medical treatment and regimen; Z91.15 Patient's noncompliance with renal dialysis; Z95.5 Presence of coronary angioplasty implant and graft; Z87.891 Personal history of nicotine dependence; Z79.02 Long term (current) use of antithrombotics/antiplatelets; Z79.4 Long term (current) use of insulin; Z79.82 Long term (current) use of aspirin; Z79.891 Long term (current) use of opiate analgesic; Z79.899 Other long term (current) drug therapy

== ENCOUNTER 2016-09-27 19:38 | Observation (INO) | payer OTHER ==
[~2016-09-27] VITALS: Ht 167.6 cm; Wt 110.5 kg
[~2016-09-27 19:38] MED LIST changes: -KFL500HP PO
[2016-09-27] MEDS ORDERED: SODIUM CHLORIDE 0.9% 1000ML 1,000 ML IV STA ×2 (20:47)
[2016-09-27 21:25] LABS: BASO % 0.4 %; BASO ABS # 0.06 K/uL (0-0.2); COMPLETE YES; EOS % 0.8 %; HEMATOCRIT 38.3 % (37-47); IG% 0.3 %; LYMPH % 11.9 %; LYMPH ABS # 1.84 K/uL (1.2-3.4); MEAN CELL VOLUME 93.4 fL (80-100); MEAN CORPUSCULAR HEMOGLOBIN 30.5 pg (25-34); MEAN CORPUSCULAR HGB CONC 32.6 g/dl (32-36); MEAN PLATELET VOLUME 10.6 fL (7.4-10.4); MONO % 8.8 %; NEUT % 77.8 %; PLATELET COUNT 372 K/uL (130-400); WHITE BLOOD COUNT 15.41 K/uL (4.8-10.8)
[2016-09-27] MEDS ORDERED: HYDROmorphone INJ 1 MG/ML SYR IV STA (21:25)
[2016-09-27] MEDS ORDERED: FAMOTIDINE 20MG/102 ML D5W IV STA (21:25)
[2016-09-27] MEDS ORDERED: SODIUM CHLORIDE 0.9% 500ML 500 ML IV STA (21:25)
[2016-09-27] MEDS ORDERED: ONDANSETRON 8 MG/54 ML D5W IV ONE (21:30)
[2016-09-27 21:40] LABS: PREG INTERNAL NEGATIVE QC NEG CLEAR BACKGROUND; PREG INTERNAL POSITIVE QC POS CONTROL LINE
[2016-09-27] MEDS ORDERED: PANTOprazole INJ 80 MG in DEXTROSE 5% 100ML IV ONE (21:45)
--- NOTE | 2016-09-27 21:48 | DIAGNOSTIC IMAGING REPORT ---
CHEST ONE VIEW PORTABLE CLINICAL HISTORY: Hematemesis COMPARISON STUDY: 09/21/2016 FINDINGS: The heart is borderline enlarged. There is no failure. There is no focal pulmonary consolidation. There is no pneumothorax. There is no free intraperitoneal air. There is no pneumomediastinum. No pleural effusions are visualized.[ IMPRESSION: No active disease in the chest. Electronically signed by: Daniel Saenz M.D. 09/27/2016 9:47 PM Dictated Date/Time: 09/27/2016 9:46 PM
[2016-09-27 21:51] LABS: PROTHROMBIN TIME (PATIENT) 10.9 SECONDS (9.0-12.0)
[2016-09-27 21:58] LABS: ALKALINE PHOSPHATASE 100 U/L (45-117); ALT/SGPT 7 U/L (12-78); AST/SGOT 17 U/L (15-37); BLOOD UREA NITROGEN 20 mg/dl (7-18); BUN/CREATININE RATIO 3.3 (10-20); CALCIUM 9.8 mg/dl (8.5-10.1); CARBON DIOXIDE 28 mmol/L (21-32); CHLORIDE 88 mmol/L (98-107); GLUCOSE 195 mg/dl (70-99); POTASSIUM 3.5 mmol/L (3.5-5.1); SODIUM 131 mmol/L (136-145)
[2016-09-27] MEDS ORDERED: PANTOprazole INJ 40 MG in DEXTROSE 5% 100ML IV ONE (22:00)
--- NOTE | 2016-09-27 23:02 | DIAGNOSTIC IMAGING REPORT ---
CT SCAN OF THE ABDOMEN AND PELVIS WITHOUT CONTRAST CLINICAL HISTORY: Upper abdominal pain, pancreatitis, vomiting. History of dialysis. COMPARISON STUDY: 09/08/2015 TECHNIQUE: CT scan of the abdomen and pelvis was performed from the lung bases to the proximal femurs. Images are reviewed in the axial, sagittal, and coronal planes. IV contrast was not administered for this examination. CT DOSE: 1440.82 mGy.cm FINDINGS: Lower chest: There are coronary artery calcifications present. There are no pleural effusions. There is a small hiatal hernia. Liver: The unenhanced liver is normal in size, contour, and attenuation. There is no intrahepatic biliary ductal dilatation. Gallbladder: The bowel is slightly hyperdense. Calculi cannot be excluded. Spleen: Normal in size and attenuation. Pancreas: Unremarkable. Adrenal glands: There is mild adrenal gland thickening similar to the prior study Kidneys: There are extensive vascular calcifications. There is no hydronephrosis. No calculi are visualized. Bowel: There are no transition zones indicate bowel obstruction. There is colonic diverticulosis. There are no acute peridiverticular inflammatory changes. There is no evidence of acute appendicitis. Peritoneum: There is no intraperitoneal free air or abdominal ascites. Vasculature: The abdominal aorta is normal in course and caliber. Adenopathy: None. Pelvic viscera: The bladder, and pelvic viscera are unremarkable. Skeletal structures: No destructive osseous lesions are seen. IMPRESSION: 1. No evidence of bowel obstruction. No evidence of free air 2. Diverticulosis. No evidence of acute diverticulitis 3. No evidence of acute appendicitis 4. Small hiatal hernia 5. Hyperdense bile within the gallbladder versus calculi 6. Extensive vascular calcifications Electronically signed by: Daniel Saenz M.D. 09/27/2016 11:00 PM Dictated Date/Time: 09/27/2016 10:57 PM
[2016-09-27] MEDS ORDERED: METOCLOPRAMIDE HCL INJ 5 MG/ML 2 ML VIAL IV STA (23:46)
[2016-09-28] VITALS (7 sets, daily range): BP systolic 110–160; BP diastolic 63–91; PULSE 64–80; TEMP 36.5–36.7; O2SAT 96–100; Ht 167.6 cm; Wt 110.5 kg
[2016-09-28] MEDS ORDERED: HYDROmorphone INJ 1 MG/ML SYR IV PRN
[2016-09-28 01:08] LABS: GASTRIC OCCULT BLOOD POS (NEG); GASTRIC OCCULT BLOOD PH 2
[2016-09-28] MEDS ORDERED: LORAZEPAM 2 MG/ML 1 ML VIAL IV PRN (01:45)
[2016-09-28] MEDS ORDERED: GLUCAGON FOR INJ 1 MG VIAL SQ PRN (01:45)
[2016-09-28] MEDS ORDERED: GLUCOSE 10 TABS/TUBE PO PRN (01:45)
[2016-09-28] MEDS ORDERED: PROMETHAZINE HCL INJ 12.5 MG in SODIUM CHLORIDE 0.9% 50ML 50 ML IV PRN (01:45)
[2016-09-28] MEDS ORDERED: GLUCOSE 40% GEL 15 GM TUBE PO PRN (01:45)
[2016-09-28] MEDS ORDERED: DEXTROSE 50% 50 ML SYR IV PRN (01:45)
[2016-09-28 02:05] LABS: HEMATOCRIT 35.2 % (37-47)
[2016-09-28] MEDS ORDERED: IV FLUIDS COMPLETED PRN (02:30)
[2016-09-28 02:58] LABS: THYROID STIMULATING HORMONE 3.65 uIu/ml (0.300-4.500)
[2016-09-28] MEDS ORDERED: INSULIN GLARGINE SOLOSTAR 100 UNITS/ML 3 ML PEN SC ONE (02:58)
--- NOTE | 2016-09-28 03:25 | EMERGENCY ROOM VISIT NOTE ---
History Report prepared by Aleksandra: Latesha Hull Under the Supervision of: Dr. Rene Wilson M.D. First contact with patient: 20:47 Chief Complaint: VOMITING Stated Complaint: THROWING UP BLOOD Nursing Triage Summary: pt c/o vomiting since tonight. "I was throwing up regular, then foamy stuff and now blood. My throat is on fire. they told me it was my pancreas before". 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 The patient states that she came home after dialysis today and ate a hoagie. She reports that she threw it up and has been continuing to throw up since. She notes that her vomit is now bloody. The patient complains of shortness of breath, chest pain and abdominal pain that she rates as a 10/10 in severity. She reports that she has had this before and was told that it was her pancreas. The patient states that she is on Percocet and tramadol for finger and toe because she wasn't sleeping. Pt denies LOC, headache, fevers, chills, diaphoresis, visual changes, neck pain, back pain , melena, hematochezia, urinary symptoms, numbness, weakness, lymphadenopathy, rash, or other complaints. 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 A total of ten systems were reviewed and were otherwise negative. Past Medical & Surgical Medical Problems: (1) Allergic rhinitis (2) CAD (coronary artery disease) (3) Carotid stenosis (4) DM type 2 (diabetes mellitus, type 2) (5) Dyslipidemia (6) ESRD (end stage renal disease) on dialysis (7) GERD (gastroesophageal reflux disease) (8) HTN (hypertension) (9) HX OF PAST NONCOMPLIANCE (10) Ischemic cardiomyopathy (11) Morbid obesity (12) Tobacco use disorder (13) UGIB (upper gastrointestinal bleed) Surgical Problems: (1) Hemodialysis access, AV graft Family History Diabetes mellitus FATHER MOTHER Heart disease FATHER MOTHER Hypertension FATHER MOTHER Kidney disease GRANDMOTHER Social History Smoking Status: Former Smoker Alcohol Use: none Housing Status: lives with family Current/Historical Medications Scheduled Aspirin (Aspirin Ec), 81 MG PO DAILY Atorvastatin (Lipitor), 40 MG PO DAILY Calcium Acetate (Phoslo 667 Mg), 1 CAP PO WM Clopidogrel Bisulfate (Plavix), 1 TAB PO DAILY Insulin Glargine (Lantus Solostar), 10 UNITS SC QPM Isosorbide Mononitrate (Isosorbide Mononitrate ER), 60 MG PO QAM Isosorbide Mononitrate Ext Rel (Imdur Ext Rel), 30 MG PO QAM Metoprolol Tartrate (Lopressor), 50 MG PO BID Ranitidine Hcl (Zantac), 300 MG PO HS Sertraline HCl (Sertraline HCl), 2 TAB PO DAILY Scheduled PRN Lorazepam (Ativan), 0.5 MG PO DAILY PRN for Anxiety Methocarbamol (Methocarbamol), 500 MG PO BID PRN for Muscle Spasms Tramadol (Ultram), 1 TAB PO TID PRN for Pain Allergies Coded Allergies: Adhesives (Verified Allergy, Mild, RASH, SORES, 09/21/16) Pollen Extract (Unverified Allergy, Unknown, rash, 09/21/16) Physical Exam Vital Signs Date Time Temp Pulse Resp B/P Pulse Ox O2 Delivery O2 Flow Rate FiO2 09/28/16 00:19 78 16 166/90 99 Room Air 09/27/16 22:15 78 18 174/89 100 Nasal Cannula 2.0 09/27/16 20:02 36.0 92 20 115/79 100 Room Air Physical Exam GENERAL: Awake, alert, uncomfortable, actively vomiting coffee ground emesis. HENT: Normocephalic, atraumatic. Oropharynx unremarkable. EYES: Normal conjunctiva. Sclera non-icteric. NECK: Supple. No nuchal rigidity. FROM. No JVD. RESPIRATORY: Clear to auscultation. CARDIAC: Borderline tachycardic rate, normal rhythm. Extremities warm and well perfused. Pulses equal. ABDOMEN: Soft, non-distended. Tenderness in the epigastrium. No rebound or guarding. No masses. RECTAL: Deferred. MUSCULOSKELETAL: Chest examination reveals no tenderness. The back is symmetrical on inspection without obvious abnormality. There is no CVA tenderness to palpation. No joint edema. LOWER EXTREMITIES: Calves are equal size bilaterally and non-tender. No edema. No discoloration. NEURO: Normal sensorium. No sensory or motor deficits noted. SKIN: No rash or jaundice noted. Medical Decision & Procedures ER Provider Diagnostic Interpretation: X ray results as stated below per my interpretation and radiologist interpretation. Other radiology results as stated below per my review and radiologist interpretation CT SCAN OF THE ABDOMEN AND PELVIS WITHOUT CONTRAST CT DOSE: 1440.82 mGy.cm FINDINGS: Lower chest: There are coronary artery calcifications present. There are no pleural effusions. There is a small hiatal hernia. Liver: The unenhanced liver is normal in size, contour, and attenuation. There is no intrahepatic biliary ductal dilatation. Gallbladder: The bowel is slightly hyperdense. Calculi cannot be excluded. Spleen: Normal in size and attenuation. Pancreas: Unremarkable. Adrenal glands: There is mild adrenal gland thickening similar to the prior study Kidneys: There are extensive vascular calcifications. There is no hydronephrosis. No calculi are visualized. Bowel: There are no transition zones indicate bowel obstruction. There is colonic diverticulosis. There are no acute peridiverticular inflammatory changes. There is no evidence of acute appendicitis. Peritoneum: There is no intraperitoneal free air or abdominal ascites. Vasculature: The abdominal aorta is normal in course and caliber. Adenopathy: None. Pelvic viscera: The bladder, and pelvic viscera are unremarkable. Skeletal structures: No destructive osseous lesions are seen. IMPRESSION: 1. No evidence of bowel obstruction. No evidence of free air 2. Diverticulosis. No evidence of acute diverticulitis 3. No evidence of acute appendicitis 4. Small hiatal hernia 5. Hyperdense bile within the gallbladder versus calculi 6. Extensive vascular calcifications Electronically signed by: Daniel Saenz M.D. 09/27/2016 11:00 PM Dictated Date/Time: 09/27/2016 10:57 PM CHEST ONE VIEW PORTABLE FINDINGS: The heart is borderline enlarged. There is no failure. There is no focal pulmonary consolidation. There is no pneumothorax. There is no free intraperitoneal air. There is no pneumomediastinum. No pleural effusions are visualized.[ IMPRESSION: No active disease in the chest. Electronically signed by: Daniel Saenz M.D. 09/27/2016 9:47 PM Dictated Date/Time: 09/27/2016 9:46 PM Laboratory Results 09/27/16 21:00 Red Blood Count 4.10, Mean Corpuscular Volume 93.4, Mean Corpuscular Hemoglobin 30.5, Mean Corpuscular Hemoglobin Concent 32.6, Mean Platelet Volume 10.6, Neutrophils (%) (Auto) 77.8, Lymphocytes (%) (Auto) 11.9, Monocytes (%) (Auto) 8.8, Eosinophils (%) (Auto) 0.8, Basophils (%) (Auto) 0.4, Neutrophils # (Auto) 11.98, Lymphocytes # (Auto) 1.84, Monocytes # (Auto) 1.36, Eosinophils # (Auto) 0.12, Basophils # (Auto) 0.06 09/27/16 21:00 Test 09/27/16 21:00 09/28/16 00:58 White Blood Count 15.41 K/uL (4.8-10.8) Red Blood Count 4.10 M/uL (4.2-5.4) Hemoglobin 12.5 g/dL (12.0-16.0) Hematocrit 38.3 % (37-47) Mean Corpuscular Volume 93.4 fL (80-100) Mean Corpuscular Hemoglobin 30.5 pg (25-34) Mean Corpuscular Hemoglobin Concent 32.6 g/dl (32-36) Platelet Count 372 K/uL (130-400) Mean Platelet Volume 10.6 fL (7.4-10.4) Neutrophils (%) (Auto) 77.8 % Lymphocytes (%) (Auto) 11.9 % Monocytes (%) (Auto) 8.8 % Eosinophils (%) (Auto) 0.8 % Basophils (%) (Auto) 0.4 % Neutrophils # (Auto) 11.98 K/uL (1.4-6.5) Lymphocytes # (Auto) 1.84 K/uL (1.2-3.4) Monocytes # (Auto) 1.36 K/uL (0.11-0.59) Eosinophils # (Auto) 0.12 K/uL (0-0.5) Basophils # (Auto) 0.06 K/uL (0-0.2) RDW Standard Deviation 48.3 fL (36.4-46.3) RDW Coefficient of Variation 14.4 % (11.5-14.5) Immature Granulocyte % (Auto) 0.3 % Immature Granulocyte # (Auto) 0.05 K/uL (0.00-0.02) Prothrombin Time 10.9 SECONDS (9.0-12.0) Prothromb Time International Ratio 1.0 (0.9-1.1) Activated Partial Thromboplast Time 25.3 SECONDS (21.0-31.0) Partial Thromboplastin Ratio 1.0 Anion Gap 15.0 mmol/L (3-11) Est Creatinine Clear Calc Drug Dose 13.7 ml/min Estimated GFR () 8.6 Estimated GFR (Non- 7.4 BUN/Creatinine Ratio 3.3 (10-20) Calcium Level 9.8 mg/dl (8.5-10.1) Total Bilirubin 0.3 mg/dl (0.2-1) Direct Bilirubin < 0.1 mg/dl (0-0.2) Aspartate Amino Transf (AST/SGOT) 17 U/L (15-37) Alanine Aminotransferase (ALT/SGPT) 7 U/L (12-78) Alkaline Phosphatase 100 U/L (45-117) Total Protein 9.0 gm/dl (6.4-8.2) Albumin 3.3 gm/dl (3.4-5.0) Lipase 227 U/L (73-393) Human Chorionic Gonadotropin, Qual NEG (NEG) Gastric Fluid pH 2 Gastric Fluid Occult Blood POS (NEG) Laboratory results reviewed by me Medications Administered Medications (Trade) Dose Ordered Sig/Bladimir Route Start Time Stop Time Status Last Admin Dose Admin Sodium Chloride 1,000 ml @ 125 mls/hr Q8H STAT IV 09/27/16 20:47 09/28/16 03:14 DC 09/27/16 20:47 125 MLS/HR Sodium Chloride 1,000 ml @ 999 mls/hr Q1H1M STAT IV 09/27/16 20:47 09/27/16 21:29 DC 09/27/16 20:47 999 MLS/HR Sodium Chloride (Nss 500ml) 500 ml @ 999 mls/hr Q31M STAT IV 09/27/16 21:25 09/27/16 21:55 DC 09/28/16 00:14 999 MLS/HR Ondansetron HCl (Zofran 8mg Iv) 8 mg NOW ONCE IV 09/27/16 21:30 09/27/16 21:31 DC 09/27/16 21:44 8 MG Famotidine (Pepcid 20mg/100 ml) 20 mg ONE STAT IV 09/27/16 21:25 09/27/16 21:29 DC 09/27/16 21:45 20 MG Hydromorphone HCl 1 mg 1 mg NOW STAT IV 09/27/16 21:25 09/27/16 21:29 DC 09/27/16 21:45 1 MG Pantoprazole Sodium 80 mg/ Dextrose 120 ml @ 480 mls/hr NOW ONCE IV 09/27/16 21:45 09/27/16 21:59 DC 09/27/16 21:45 480 MLS/HR Pantoprazole Sodium/Dextrose (Protonix Inj/D5 100ml) 100 ml @ 20 mls/hr Q5H ONCE IV 09/27/16 22:00 09/28/16 02:59 DC 09/27/16 22:00 20 MLS/HR Hydromorphone HCl (Dilaudid Inj) 1 mg Q15M PRN IV 09/28/16 00:00 09/28/16 01:39 DC 09/28/16 00:36 1 MG Metoclopramide HCl (Reglan Inj) 10 mg NOW STAT IV 09/27/16 23:46 09/27/16 23:47 DC 09/28/16 00:14 10 MG ECG Indication: vomiting Rate (beats per minute): 80 Rhythm: sinus rhythm Findings: PVC, Q waves (Inferior), no acute ischemic change ED Course 2046: Sodium Chloride 1000 ml @ 999 mls/hr IV, Sodium Chloride 1000 ml @ 125 mls /hr IV. 2124: Dilaudid Inj 1mg IV, Famotidine 20mg IV, Pantoprazole Sodium 1ea IV, Sodium Chloride 500 ml @ 999 mls/hr IV. 2126: The patient was evaluated in room C7. A complete history and physical exam was performed. 2130: Zofran 8mg IV. 2145: Pantoprazole Sodium 80mg/Dextrose 120ml @ 480mls/hr IV. 2200: Pantoprazole Sodium 40mg/Dextrose 100ml @ 20mls/hr IV. 2346: Reglan Inj 10mg IV. 0000: Dilaudid Inj 1mg PRN IV pain. 0011: I reevaluated the patient. She is getting additional pain and nausea medication. 0059: Discussed the patient's case with Dr. Patel of [facility]. The patient will be evaluated for further treatment and disposition. 0112: Upon reexamination, the patient was hemodynamically stable. I discussed the test results and treatment plan with the patient. The patient will be evaluated for further management. Medical Decision Triage Nursing notes reviewed. The patient's presentation and history were concerning for vomiting and abdominal pain. Etiologies such as GI bleed, diverticulitis, obstruction, inflammatory bowel disease, renal colic, PUD, biliary pathology, pancreatitis, mesenteric ischemia , aortic pathology, infections, genitourinary, UTI, perforated viscus, appendicitis cardiac sources, as well as others were entertained. The patient was evaluated. She had an IV established and was hydrated. She had blood work obtained which revealed an elevated creatinine consistent with her renal disease. Patient had a slight elevation of her troponin. HCG and chemistry panels were unremarkable otherwise. The patient did have a slight leukocytosis of 15,000. She was vomiting actively during the initial evaluation. This was coffee-ground in nature. It was sent for Gastroccult. The patient was started on IV Protonix and IV Pepcid. She did require several doses of Dilaudid. The patient was also given IV Reglan. On reassessment the patient was doing better. CT imaging was performed. This did not show any evidence of bowel obstruction. There was some hyperdense material in the gallbladder. Ultrasound was ordered. Consultation was made with internal medicine. The [facility] was evaluated [facility]. Th E chart was completed utilizing [employer] Speech voice recognition software. Grammatical errors, random word insertions, pronoun errors, and incomplete sentences are an occasional consequence of this system due to software limitations, ambient noise, and hardware issues. Any formal questions or concerns about the content, text, or information contained within the body of this dictation should be directly addressed to the physician for clarification. Consults Time Called: 49 Consulting Physician: Dr. Patel - [facility] Returned Call: 58 Discussed the patient's case with Dr. Patel of [facility]. The patient will be evaluated for further treatment and disposition. Impression Primary Impression: Upper abdominal pain Additional Impressions: Vomiting GI bleed Scribe Attestation The scribe's documentation has been prepared under my direction and personally reviewed by me in its entirety. I confirm that the note above accurately reflects all work, treatment, procedures, and medical decision making performed by me. Departure Information Dispostion Being Evaluated By Hospitalist Referrals No Doctor, Assigned (PCP) Patient Instructions My [facility] Problem Qualifiers
[2016-09-28] MEDS: NSS + 20MEQ KCL 1000ML 1,000 ML IV SCH (03:40)
[2016-09-28] MEDS: PANTOprazole INJ 40 MG in DEXTROSE 5% 100ML 100 ML IV SCH ×5 (03:40→23:26)
--- NOTE | 2016-09-28 06:12 | HISTORY & PHYSICAL EXAMINATION ---
DATE OF ADMISSION: 09/28/2016 PRIMARY CARE PHYSICIAN: Dr. Becerra. CHIEF COMPLAINT: Hematemesis. HISTORY OF PRESENT ILLNESS: Medical history significant for chronic diastolic heart failure, EF 55%, CAD sp stenting, PVD as per records, past tobacco abuse, DM2, insulin requiring, end-stage renal disease on hemodialysis, chronic anemia (baseline hemoglobin 10-11). Recent confinement last week for chest pain, possibly from hypertensive urgency. Last night, after arriving home from dialysis, px felt sick after eating a sandwich. Bilious emesis followed by 3 episodes of dark brown/bloody emesis. No chest pain, no shortness of breath, no fever, no chills. No black, no bloody stools. Patient noted some epigastric pain. Good BM. MEDICAL HISTORY: As above. SURGERIES: She has had vascular procedures FAMILY HISTORY: Heart disease, diabetes. PERSONAL AND SOCIAL HISTORY: Past tobacco abuse. No chronic intake of alcoholic beverages. Disabled. REVIEW OF SYSTEMS: As per HPI. all other ROS negative. PHYSICAL EXAMINATION: VITAL SIGNS: Blood pressure was noted to be 115/79, pulse rate 92, RR 20, temperature 36.6, sats 98 on room air. GENERAL: Noted to be slightly anxious, obese, no respiratory distress. Uncomfortable.Looks older than stated age. SKIN: Pallor. HEENT: Pale palpebral conjunctivae. Dry mucosa. NECK: Short neck. LUNGS: Decreased breath sounds. HEART: Regular rate and rhythm. ABDOMEN: Epigastric tenderness. EXTREMITIES: No edema. no tenderness NEUROLOGIC: No gross focality. LABS: Hemoglobin was 12.5, white cell count 15.4, platelets 272. Sodium 131, potassium 3.5, chloride 88, CO2 28, BUN 20, creatinine 7, glucose 195. Troponin 0.69. Lipase 227. CT of the abdomen and pelvis initial read showed hyperdense bile in the gallbladder, small hiatal hernia, extensive vascular calcifications. Chest x-ray showed no active disease. EKG showed sinus rhythm, 80 with PVCs, Q-waves in inferior leads ASSESSMENT: 1. Upper gastrointestinal bleed/hematemesis ddx include esophagitis, Seda-Howard tear, gastritis, gastric ulcer px currently hemodynamically stable 2. Hypertension, slightly elevated. 3. hx chronic diastolic HF (EF 55%), px on the dry side 4. History of coronary artery disease sp stenting/ PVD as per records 5. DM2, insulin requiring reasonable control as of recent HgA1c, 7.2 as of June 2016. 6. Past tobacco abuse. 7. ESRD on HD PLAN: Observation PCU. Follow HH, transfuse prbc if Hg less than 8. Appropriate to hold home antiplatelet tx IV PPI GI consult. RE UGIB Nephrology consult if px still admitted by tomorrow 09/29 ([place] [facility] [place] ISS BG goal 140-180 DVT prophylaxis, SCDs RE GI bleed. Full code. MTDD
[2016-09-28] MEDS: CALCIUM ACETATE 667MG GELCAP PO SCH ×3 (07:30→17:02)
--- NOTE | 2016-09-28 07:56 | DIAGNOSTIC IMAGING REPORT ---
ABDOMINAL ULTRASOUND, RIGHT UPPER QUADRANT HISTORY: Abdominal pain and vomiting.. COMPARISON: CT of the abdomen and pelvis September 27, 2016 and right upper quadrant ultrasound August 16, 2014. FINDINGS: Liver is sonographically normal. There is no biliary ductal dilatation. No gallstones are identified. Minimal gallbladder wall thickening is noted. There is sludge within the gallbladder. No sonographic Monroy sign was elicited. The pancreatic body is normal. The head and tail are obscured. There is no right hydronephrosis. There is marked right renal atrophy. IMPRESSION: 1. No gallstones or biliary ductal dilatation. Mild gallbladder wall thickening and sludge within the gallbladder. 2. Right renal atrophy. Electronically signed by: Juan A Mcintosh M.D. 09/28/2016 7:55 AM Dictated Date/Time: 09/28/2016 7:53 AM
[2016-09-28] MEDS: INSULIN ASPART 100 UNITS/ML 3 ML PEN SC SCH ×4 (07:58→21:00)
[2016-09-28 08:55] LABS: BASO % 0.3 %; BASO ABS # 0.04 K/uL (0-0.2); COMPLETE YES; EOS % 0.5 %; HEMATOCRIT 34.4 % (37-47); IG% 0.2 %; LYMPH % 19.3 %; LYMPH ABS # 2.69 K/uL (1.2-3.4); MEAN CELL VOLUME 94.2 fL (80-100); MEAN CORPUSCULAR HGB CONC 32.8 g/dl (32-36); MEAN PLATELET VOLUME 10.6 fL (7.4-10.4); MONO % 6.2 %; NEUT % 73.5 %; PLATELET COUNT 374 K/uL (130-400); RED BLOOD COUNT 3.65 M/uL (4.2-5.4); WHITE BLOOD COUNT 13.97 K/uL (4.8-10.8)
[2016-09-28] MEDS ORDERED: ISOSORBIDE MONONITRATE 30 MG TABCR PO SCH (09:00)
[2016-09-28] MEDS ORDERED: SERTRALINE HCL 50 MG TAB PO SCH (09:00)
[2016-09-28] MEDS: ONDANSETRON INJ 2 MG/ML 2 ML VIAL IV PRN ×2 (09:10→17:03)
[2016-09-28] MEDS: METOPROLOL TARTRATE 25 MG TAB PO SCH ×2 (09:10→21:28)
[2016-09-28] MEDS: TRAMADOL HCL 50 MG TAB PO PRN (09:11)
[2016-09-28] MEDS: ISOSORBIDE MONONITRATE 30 MG TABCR PO SCH (09:11)
[2016-09-28 09:29] LABS: BUN/CREATININE RATIO 3.4 (10-20); CALCIUM 9.1 mg/dl (8.5-10.1); POTASSIUM 3.6 mmol/L (3.5-5.1)
[2016-09-28] MEDS: HYDROmorphone INJ 1 MG/ML SYR IV PRN ×2 (13:08→23:26)
[2016-09-28 13:09] LABS: HEMATOCRIT 32.2 % (37-47)
--- NOTE | 2016-09-28 13:14 | Gastrointestinal Consultation ---
Gastrointestinal Consultation Date of Consultation: Sep 28, 2016 Attending Physician: Dr. Patel Consulting Physician: Dr. Hernandez Reason for Consultation: Hematemesis History of Present Illness Patient is a 50 year old female patient of Dr. Becerra with a hx of ERSD on dialysis, CAD, PVD, DM-2 insulin requiring, chronic anemia with Hb 10 - 11. She presented to the ED yesterday for dark brown emesis. GI is consulted for hematemesis. Yesterday, after dialysis, she ate a 6 inch hoagie. Soon after she had a sudden onset of nausea/vomiting, initially the food, followed by dark brown liquid that she though may have been blood tinged. She cycled through episodes of nausea, vomiting, then slight improvement in symptoms then nausea/vomiting again 4-5 times yesterday and presented to the ED because a subsequent emesis appeared to be a dark brown liquid. She does not believe that it appears like coffee grounds or fresh blood. It was not black. Her vomiting and dry heaving were somewhat forceful. On arrival, Hb at 12, today 11 both of which are above her baseline. She had one episode of emesis in the ED, then no further. US on arrival with mild gallbladder wall thickening and sludge in the gallbladder. Non contrast CT without any acute changes though there was hyperdense bile in the gallbladder. She currently denies any abdominal pain, nausea. She asks to eat lunch. She denies any previous similar episodes of pain or vomiting. Past Medical/Surgical History Medical Problems: (1) Abdominal pain Status: Acute (2) Acute electrocardiogram changes Status: Acute (3) Elevated troponin Status: Acute (4) Elevated troponin Status: Acute (5) End stage renal disease Status: Acute (6) GI bleed Status: Acute (7) Hyperkalemia Status: Acute (8) Joint effusion Status: Acute (9) Left elbow pain Status: Acute (10) Left sided chest pain Status: Acute (11) Left sided chest pain Status: Acute (12) Limb ischemia Status: Acute (13) Medical non-compliance Status: Acute (14) Pneumonia Status: Acute (15) Pulmonary edema Status: Acute (16) Renal failure Status: Acute (17) Sinusitis Status: Acute (18) Substernal chest pain Status: Acute (19) Upper abdominal pain Status: Acute (20) Urinary tract infection Status: Acute (21) Vomiting Status: Acute (22) Vomiting Status: Acute (23) Vomiting Status: Acute Past Medical History: 1. ESRD, on dialysis 2. CAD 3. PVD 4. DM-2 5. Chronic anemia Past Surgical History: Surgical placements of TDC and AVF. Pt denies any prior endoscopy. Family History Diabetes mellitus FATHER MOTHER Heart disease FATHER MOTHER Hypertension FATHER MOTHER Kidney disease GRANDMOTHER Social History Smoking Status: Former Smoker Alcohol Use: none Housing Status: lives with family Allergies Coded Allergies: Adhesives (Verified Allergy, Mild, RASH, SORES, 09/21/16) Pollen Extract (Unverified Allergy, Unknown, rash, 09/21/16) Current Medications Home Meds and Scripts Medications Dose Route/Sig Max Daily Dose Days Date Category Sertraline HCl 50 Mg Tab 2 Tab PO DAILY 30 09/14/16 Reported Phoslo 667 Mg (Calcium Acetate) 667 Mg Cap 1 Cap PO WM 09/14/16 Reported Lipitor (Atorvastatin) 20 Mg Tab 40 Mg PO DAILY 09/14/16 Reported Lopressor (Metoprolol Tartrate) 25 Mg Tab 50 Mg PO BID 09/14/16 Reported Plavix (Clopidogrel Bisulfate) 75 Mg Tab 1 Tab PO DAILY 90 09/14/16 Reported Isosorbide Mononitrate ER (Isosorbide Mononitrate) 30 Mg Tabcr 60 Mg PO QAM 09/14/16 Reported Imdur Ext Rel (Isosorbide Mononitrate) 30 Mg Ertab 30 Mg PO QAM 09/14/16 Reported Lantus Solostar (Insulin Glargine) 100 Unit/Ml Inj 10 Units SC QPM 09/14/16 Reported Ativan (Lorazepam) 1 Mg Tab 0.5 Mg PO DAILY PRN 09/14/16 Reported Zantac (Ranitidine HCl) 150 Mg Tab 300 Mg PO HS 09/14/16 Reported Methocarbamol 500 Mg Tab 500 Mg PO BID PRN 09/14/16 Reported Ultram (Tramadol HCl) 50 Mg Tab 1 Tab PO TID PRN 30 09/14/16 Reported Aspirin Ec (Aspirin) 81 Mg Tab 81 Mg PO DAILY 04/06/16 Reported Review of Systems Constitutional: No chills, No fever, No sweats, No weakness, No weight loss Eyes: No eye pain, No redness ENT: No pain on swallowing, No sore throat, No trouble swallowing Respiratory: No cough, No dyspnea on exertion, No shortness of breath, No wheezing Cardiac: No chest pain, No edema, No palpitations Abdomen: + see HPI Neuro: No balance problems, No memory loss, No numbness/tingling, No vertigo, No weakness Psych: No anxiety, No depression symptoms, No insomnia Heme: No abnormal bleeding/bruising, No night sweats Endo: No excessive thirst, No excessive urination Skin: No itch, No jaundice, No new/changing skin lesions, No rash Physical Exam Date Time Temp Pulse Resp B/P Pulse Ox O2 Delivery O2 Flow Rate FiO2 09/28/16 12:05 36.7 67 16 114/80 99 Room Air 09/28/16 08:12 36.7 73 16 125/68 100 09/28/16 08:00 Room Air 09/28/16 04:42 126/73 09/28/16 04:00 Room Air 09/28/16 02:20 36.5 80 18 160/91 100 Room Air 09/28/16 02:13 82 18 151/84 100 Nasal Cannula 2.0 09/28/16 00:19 78 16 166/90 99 Room Air 09/27/16 22:15 78 18 174/89 100 Nasal Cannula 2.0 09/27/16 20:02 36.0 92 20 115/79 100 Room Air General Appearance: no apparent distress Eyes: normal inspection, EOMI Neck: supple, no adenopathy, thyroid normal Respiratory/Chest: chest non-tender, lungs clear, normal breath sounds, no accessory muscle use Cardiovascular: regular rate, rhythm, no JVD, no murmur Abdomen: normal bowel sounds, non tender (non tender on entire abdomen at the time of the exam), soft, no organomegaly Extremities: normal inspection, no pedal edema, normal capillary refill Neurologic/Psych: alert, normal mood/affect, oriented x 3 Skin: normal color, no jaundice, warm/dry, no rash Laboratory Results Last 24 Hours Test 09/27/16 21:00 09/28/16 00:58 09/28/16 01:55 09/28/16 07:09 White Blood Count 15.41 K/uL Red Blood Count 4.10 M/uL Hemoglobin 12.5 g/dL 11.7 g/dL Hematocrit 38.3 % 35.2 % Mean Corpuscular Volume 93.4 fL Mean Corpuscular Hemoglobin 30.5 pg Mean Corpuscular Hemoglobin Concent 32.6 g/dl Platelet Count 372 K/uL Mean Platelet Volume 10.6 fL Neutrophils (%) (Auto) 77.8 % Lymphocytes (%) (Auto) 11.9 % Monocytes (%) (Auto) 8.8 % Eosinophils (%) (Auto) 0.8 % Basophils (%) (Auto) 0.4 % Neutrophils # (Auto) 11.98 K/uL Lymphocytes # (Auto) 1.84 K/uL Monocytes # (Auto) 1.36 K/uL Eosinophils # (Auto) 0.12 K/uL Basophils # (Auto) 0.06 K/uL RDW Standard Deviation 48.3 fL RDW Coefficient of Variation 14.4 % Immature Granulocyte % (Auto) 0.3 % Immature Granulocyte # (Auto) 0.05 K/uL Prothrombin Time 10.9 SECONDS Prothromb Time International Ratio 1.0 Activated Partial Thromboplast Time 25.3 SECONDS Partial Thromboplastin Ratio 1.0 Sodium Level 131 mmol/L 132 mmol/L Potassium Level 3.5 mmol/L Chloride Level 88 mmol/L Carbon Dioxide Level 28 mmol/L Anion Gap 15.0 mmol/L Blood Urea Nitrogen 20 mg/dl Creatinine 6.10 mg/dl Est Creatinine Clear Calc Drug Dose 13.7 ml/min Estimated GFR () 8.6 Estimated GFR (Non- 7.4 BUN/Creatinine Ratio 3.3 Random Glucose 195 mg/dl Calcium Level 9.8 mg/dl Total Bilirubin 0.3 mg/dl Direct Bilirubin < 0.1 mg/dl Aspartate Amino Transf (AST/SGOT) 17 U/L Alanine Aminotransferase (ALT/SGPT) 7 U/L Alkaline Phosphatase 100 U/L Troponin I 0.699 ng/ml 0.679 ng/ml Total Protein 9.0 gm/dl Albumin 3.3 gm/dl Lipase 227 U/L Human Chorionic Gonadotropin, Qual NEG Gastric Fluid pH 2 Gastric Fluid Occult Blood POS Osmolality 296 mOsm/kg Magnesium Level 2.0 mg/dl Thyroid Stimulating Hormone (TSH) 3.650 uIu/ml Bedside Glucose 142 mg/dl Test 09/28/16 08:25 09/28/16 12:00 White Blood Count 13.97 K/uL Red Blood Count 3.65 M/uL Hemoglobin 11.3 g/dL Hematocrit 34.4 % Mean Corpuscular Volume 94.2 fL Mean Corpuscular Hemoglobin 31.0 pg Mean Corpuscular Hemoglobin Concent 32.8 g/dl Platelet Count 374 K/uL Mean Platelet Volume 10.6 fL Neutrophils (%) (Auto) 73.5 % Lymphocytes (%) (Auto) 19.3 % Monocytes (%) (Auto) 6.2 % Eosinophils (%) (Auto) 0.5 % Basophils (%) (Auto) 0.3 % Neutrophils # (Auto) 10.27 K/uL Lymphocytes # (Auto) 2.69 K/uL Monocytes # (Auto) 0.87 K/uL Eosinophils # (Auto) 0.07 K/uL Basophils # (Auto) 0.04 K/uL RDW Standard Deviation 49.3 fL RDW Coefficient of Variation 14.6 % Immature Granulocyte % (Auto) 0.2 % Immature Granulocyte # (Auto) 0.03 K/uL Sodium Level 132 mmol/L Potassium Level 3.6 mmol/L Chloride Level 89 mmol/L Carbon Dioxide Level 30 mmol/L Anion Gap 13.0 mmol/L Blood Urea Nitrogen 24 mg/dl Creatinine 7.00 mg/dl Est Creatinine Clear Calc Drug Dose 12.0 ml/min Estimated GFR () 7.3 Estimated GFR (Non- 6.3 BUN/Creatinine Ratio 3.4 Random Glucose 132 mg/dl Calcium Level 9.1 mg/dl Impression Patient is a 50 year old female ESRD patient who experienced several episodes of post prandial nausea/vomiting with upper abdomen pain yesterday. She has not had further episodes since soon after arrival in the ED. Differentials considered are:gastritis, duodenitis, ulcer disease, gallbladder disease. Her symptoms seem a bit more consistent with biliary colic than an upper GI bleed. Plan Attg addendum: Pt admit with abrupt onset of intractable n/v. Vomitus appeared dark. She has a h/o occasional mild nausea and rare vomiting in the past, which she has attributed to her ESRD or dialysis. Admission labs unremarkable. Imaging shows GB sludge without chato dil. Her exam at present is without abd tenderness. DDx includes gastroenteritis, acid-peptic disease, biliary disease, gastroparesis. She does not appear to have had evdience of significant GI blood loss, as Hgb and BUN have remained stable. We offered pt EGD today, but she refused. Her symptoms appear resolved - She ate her entire dinner tray with only mild recurrent nausea. Will defer any further in pt GI w/u. Please ask pt to f/u with PCP, and refer for endoscopy or GI clinic apptment if symptoms are persistent or recurrent. Will sign off.
--- NOTE | 2016-09-28 17:57 | Progress Note ---
Internal Med Progress Note Date of Service: Sep 28, 2016. Provider Documentation: SUBJECTIVE: The patient was seen and examined No more hematemesis No Melena Denies any other symptoms OBJECTIVE: Vital Signs-as noted below Exam: General-No distress at rest Eyes-normal ENT-normal Neck-supple Lungs-Clear to auscultate bilaterally Heart-Regular Abdomen-Benign,no masses Extremities-Trace edema bilaterally Neuro-AAOx3 Lab data as noted below. ASSESSMENT & PLAN: Upper gastrointestinal bleed/hematemesis Differential includes esophagitis, Seda-Howard tear, gastritis, gastric ulcer Remained hemodynamically stable Has been on IV Protonix Follow HH, transfuse prbc if Hg less than 8. No more episodes Hb stable Appreciate GI input-no EGD if remains stable ESRD on HD Nephrology consult Hypertension, slightly elevated. Chronic diastolic HF (EF 55%), px on the dry side History of coronary artery disease sp stenting/ PVD as per records DM2, insulin requiring Reasonable control as of recent HgA1c, 7.2 as of June 2016. ISS BG goal 140-180 Past tobacco abuse. DVT prophylaxis, SCDs RE GI bleed. Full code. Vital Signs: Date Time Temp Pulse Resp B/P Pulse Ox O2 Delivery O2 Flow Rate FiO2 09/28/16 16:38 36.6 70 16 117/73 98 Room Air 09/28/16 12:05 36.7 67 16 114/80 99 Room Air 09/28/16 12:00 Room Air 09/28/16 08:12 36.7 73 16 125/68 100 09/28/16 08:00 Room Air 09/28/16 04:42 126/73 09/28/16 04:00 Room Air 09/28/16 02:20 36.5 80 18 160/91 100 Room Air 09/28/16 02:13 82 18 151/84 100 Nasal Cannula 2.0 09/28/16 00:19 78 16 166/90 99 Room Air 09/27/16 22:15 78 18 174/89 100 Nasal Cannula 2.0 09/27/16 20:02 36.0 92 20 115/79 100 Room Air Lab Results: Results Past 24 Hours Test 09/27/16 21:00 09/28/16 00:58 09/28/16 01:55 09/28/16 07:09 Range/Units White Blood Count 15.41 4.8-10.8 K/uL Red Blood Count 4.10 4.2-5.4 M/uL Hemoglobin 12.5 11.7 12.0-16.0 g/dL Hematocrit 38.3 35.2 37-47 % Mean Corpuscular Volume 93.4 80-100 fL Mean Corpuscular Hemoglobin 30.5 25-34 pg Mean Corpuscular Hemoglobin Concent 32.6 32-36 g/dl Platelet Count 372 130-400 K/uL Mean Platelet Volume 10.6 7.4-10.4 fL Neutrophils (%) (Auto) 77.8 % Lymphocytes (%) (Auto) 11.9 % Monocytes (%) (Auto) 8.8 % Eosinophils (%) (Auto) 0.8 % Basophils (%) (Auto) 0.4 % Neutrophils # (Auto) 11.98 1.4-6.5 K/uL Lymphocytes # (Auto) 1.84 1.2-3.4 K/uL Monocytes # (Auto) 1.36 0.11-0.59 K/uL Eosinophils # (Auto) 0.12 0-0.5 K/uL Basophils # (Auto) 0.06 0-0.2 K/uL RDW Standard Deviation 48.3 36.4-46.3 fL RDW Coefficient of Variation 14.4 11.5-14.5 % Immature Granulocyte % (Auto) 0.3 % Immature Granulocyte # (Auto) 0.05 0.00-0.02 K/uL Prothrombin Time 10.9 9.0-12.0 SECONDS Prothromb Time International Ratio 1.0 0.9-1.1 Activated Partial Thromboplast Time 25.3 21.0-31.0 SECONDS Partial Thromboplastin Ratio 1.0 Sodium Level 131 132 136-145 mmol/L Potassium Level 3.5 3.5-5.1 mmol/L Chloride Level 88 98-107 mmol/L Carbon Dioxide Level 28 21-32 mmol/L Anion Gap 15.0 3-11 mmol/L Blood Urea Nitrogen 20 7-18 mg/dl Creatinine 6.10 0.60-1.20 mg/dl Est Creatinine Clear Calc Drug Dose 13.7 ml/min Estimated GFR () 8.6 Estimated GFR (Non- 7.4 BUN/Creatinine Ratio 3.3 10-20 Random Glucose 195 70-99 mg/dl Calcium Level 9.8 8.5-10.1 mg/dl Total Bilirubin 0.3 0.2-1 mg/dl Direct Bilirubin < 0.1 0-0.2 mg/dl Aspartate Amino Transf (AST/SGOT) 17 15-37 U/L Alanine Aminotransferase (ALT/SGPT) 7 12-78 U/L Alkaline Phosphatase 100 45-117 U/L Troponin I 0.699 0.679 0-0.045 ng/ml Total Protein 9.0 6.4-8.2 gm/dl Albumin 3.3 3.4-5.0 gm/dl Lipase 227 73-393 U/L Human Chorionic Gonadotropin, Qual NEG NEG Gastric Fluid pH 2 Gastric Fluid Occult Blood POS NEG Osmolality 296 280-300 mOsm/kg Magnesium Level 2.0 1.8-2.4 mg/dl Thyroid Stimulating Hormone (TSH) 3.650 0.300-4.500 uIu/ml Bedside Glucose 142 70-90 mg/dl Test 09/28/16 08:25 09/28/16 12:31 09/28/16 16:17 Range/Units White Blood Count 13.97 4.8-10.8 K/uL Red Blood Count 3.65 4.2-5.4 M/uL Hemoglobin 11.3 10.3 12.0-16.0 g/dL Hematocrit 34.4 32.2 37-47 % Mean Corpuscular Volume 94.2 80-100 fL Mean Corpuscular Hemoglobin 31.0 25-34 pg Mean Corpuscular Hemoglobin Concent 32.8 32-36 g/dl Platelet Count 374 130-400 K/uL Mean Platelet Volume 10.6 7.4-10.4 fL Neutrophils (%) (Auto) 73.5 % Lymphocytes (%) (Auto) 19.3 % Monocytes (%) (Auto) 6.2 % Eosinophils (%) (Auto) 0.5 % Basophils (%) (Auto) 0.3 % Neutrophils # (Auto) 10.27 1.4-6.5 K/uL Lymphocytes # (Auto) 2.69 1.2-3.4 K/uL Monocytes # (Auto) 0.87 0.11-0.59 K/uL Eosinophils # (Auto) 0.07 0-0.5 K/uL Basophils # (Auto) 0.04 0-0.2 K/uL RDW Standard Deviation 49.3 36.4-46.3 fL RDW Coefficient of Variation 14.6 11.5-14.5 % Immature Granulocyte % (Auto) 0.2 % Immature Granulocyte # (Auto) 0.03 0.00-0.02 K/uL Sodium Level 132 136-145 mmol/L Potassium Level 3.6 3.5-5.1 mmol/L Chloride Level 89 98-107 mmol/L Carbon Dioxide Level 30 21-32 mmol/L Anion Gap 13.0 3-11 mmol/L Blood Urea Nitrogen 24 7-18 mg/dl Creatinine 7.00 0.60-1.20 mg/dl Est Creatinine Clear Calc Drug Dose 12.0 ml/min Estimated GFR () 7.3 Estimated GFR (Non- 6.3 BUN/Creatinine Ratio 3.4 10-20 Random Glucose 132 70-99 mg/dl Calcium Level 9.1 8.5-10.1 mg/dl Bedside Glucose 175 70-90 mg/dl
[2016-09-28 18:45] LABS: HEMATOCRIT 31.4 % (37-47)
[2016-09-28] MEDS: SERTRALINE HCL 50 MG TAB PO SCH (21:27)
[2016-09-29] VITALS (7 sets, daily range): BP systolic 108–151; BP diastolic 62–93; PULSE 61–74; TEMP 36.6–36.9; O2SAT 92–97
[2016-09-29] MEDS: NSS + 20MEQ KCL 1000ML 1,000 ML IV SCH (02:57)
[2016-09-29 06:07] LABS: BASO % 0.5 %; BASO ABS # 0.05 K/uL (0-0.2); COMPLETE YES; EOS % 3.3 %; HEMATOCRIT 31.8 % (37-47); IG% 0.2 %; LYMPH % 35.1 %; MEAN CELL VOLUME 95.5 fL (80-100); MEAN CORPUSCULAR HGB CONC 31.4 g/dl (32-36); MEAN PLATELET VOLUME 10.4 fL (7.4-10.4); MONO % 13.6 %; NEUT % 47.3 %; PLATELET COUNT 346 K/uL (130-400); RED BLOOD COUNT 3.33 M/uL (4.2-5.4)
[2016-09-29] MEDS: INSULIN ASPART 100 UNITS/ML 3 ML PEN SC SCH ×4 (07:00→20:25)
[2016-09-29 07:02] LABS: BUN/CREATININE RATIO 4.6 (10-20); CALCIUM 8.8 mg/dl (8.5-10.1); CREATININE 8.5 mg/dl (0.60-1.20); POTASSIUM 4.5 mmol/L (3.5-5.1)
[2016-09-29] MEDS ORDERED: EPOETIN ALFA 10,000 UNITS/ML VIAL IV. SCH (07:30)
[2016-09-29] MEDS: CALCIUM ACETATE 667MG GELCAP PO SCH ×2 (08:46→17:16)
[2016-09-29] MEDS: ISOSORBIDE MONONITRATE 30 MG TABCR PO SCH (08:47)
[2016-09-29] MEDS: METOPROLOL TARTRATE 25 MG TAB PO SCH ×2 (08:47→20:23)
[2016-09-29] MEDS: PANTOprazole INJ 40 MG in DEXTROSE 5% 100ML 100 ML IV SCH (08:58)
[2016-09-29] MEDS: INSULIN GLARGINE SOLOSTAR 100 UNITS/ML 3 ML PEN SC SCH (08:59)
--- NOTE | 2016-09-29 09:58 | NEPHROLOGY CONSULTATION ---
DATE OF CONSULTATION: 09/29/2016 DATE OF CONSULTATION: 09/29/2016. ATTENDING OF RECORD: Dr. Robles. REASON FOR CONSULTATION: ESRD. HISTORY OF PRESENT ILLNESS: This is a 50-year-old female who dialyses Tuesday, Tuesday, Fridays at the [facility]. She has a history of noncompliance and misses quite frequently. The patient also does not take phosphate binders despite working with her and encouraging her the last several years to make sure that she has appropriate insurance and adequate medications as she continues to not take appropriate medications. She routinely does not show up to dialysis on a periodic basis missing weeks on end. GI evaluated the patient for the nausea and vomiting with positive blood. They thought differential included gastroenteritis, peptic acid disease, biliary disease, gastroparesis. No significant GI blood loss. They did offer the patient EGD but patient refused and her symptoms have appeared to resolve. The patient states that she ate 2 bits of her pork chop and then threw it up last night, however was able to eat breakfast this morning and is feeling better. Abdominal pelvis CT shows no evidence of bowel obstruction, positive diverticulosis, small hiatal hernia, extensive vascular calcifications, hyperdense bile within the gallbladder. Gallbladder ultrasound showed no gallstones or biliary ductal dilatation. Chest x-ray shows no active disease in the chest. REVIEW OF SYSTEMS: Positive fatigue, positive nausea and vomiting. No diarrhea. No shortness of breath. No chest pain. No headaches. No blurry vision. Does have some mild abdominal pain. No rash or itching. All other review of systems otherwise negative. PAST MEDICAL HISTORY: End-stage renal disease, dialyzing Tuesday, Tuesday, and Fridays at the [facility], coronary artery disease with history of GA and bare-metal stent placed in March 2016, type 2 diabetes, hypertension, anemia of end stage renal failure, GERD. PAST SURGICAL HISTORY: AV fistula placement, bare-metal stent to the heart, tunneled dialysis catheter placements. SOCIAL HISTORY: Former smoker. No alcohol. No drugs. Is and lives alone. FAMILY HISTORY: Significant for diabetes in both parents. CURRENT MEDICATIONS: Lantus 5 units subQ daily, Zoloft 100 mg at night, Imdur 90 mg daily, Lopressor 50 mg p.o. b.i.d., PhosLo 1 p.o. t.i.d. with meals, insulin with meals and at night, Protonix drip, normal saline with potassium at 40 mL/hour. PHYSICAL EXAMINATION: VITAL SIGNS: Temperature 36.6, pulse 64, respiratory rate 17, blood pressure 143/80, satting 96% on room air. GENERAL: Awake, alert, and oriented x3, obese. EYES: No scleral icterus. EARS, NOSE, THROAT: Moist mucous membranes. NECK: Supple. PULMONARY: Clear to auscultation. CARDIAC: Regular rate and rhythm. ABDOMEN: Mild tenderness, soft, nondistended. EXTREMITIES: No significant clubbing, cyanosis or edema. NEUROLOGICALLY: Nonfocal. DERMATOLOGIC: No rash or ulcers noted. LABORATORY DATA: White count 9.4, H\T\H 10 and 32, platelet count is 346. Sodium level is 133, potassium 4.5, chloride is 91, bicarb is 30, BUN at last check was 24, creatinine is 8.5, glucose 96, calcium is 8.8. INR is 1. Gastric occult blood is positive. Gastric fluid pH of 2. ASSESSMENT AND PLAN: 1. End-stage renal disease: The patient's blood pressure is stable. She appears to have tolerated her breakfast. Will stop the IV fluids and plan on dialysis today with no fluid removal. 2. Hypokalemia. Potassium levels initially were 3.5, now have trended up to 4.5. I have stopped the IV fluids with potassium in it and we will dialyze her on a 2K bath to help lower the potassium. 3. Anemia of renal failure. Hemoglobin levels are in the 10 range and will dose Procrit again today. 4. Renal osteodystrophy. The patient states that she has not been taking her phosphate binders at home. We will go ahead and give her 3 phosphate binders with each meal to try to help control the phosphorus levels. She has severe secondary hyperparathyroidism from noncompliance with binders and dialysis and has noted extensive vascular calcifications on CAT scan like as a consequence of her noncompliance stressing the importance of taking binders and going to dialysis religiously. I appreciate consultation. BALTAZAR
--- NOTE | 2016-09-29 13:04 | Progress Note ---
Internal Med Progress Note Date of Service: Sep 29, 2016. Provider Documentation: SUBJECTIVE: The patient was seen and examined No more hematemesis No Melena Minimal Epigastric discomfort Complains left hand pain with swelling and bruising OBJECTIVE: Vital Signs-as noted below Exam: General-No distress at rest Eyes-normal ENT-normal Neck-supple Lungs-Clear to auscultate bilaterally Heart-Regular Abdomen-Benign,no masses Extremities-Trace edema bilaterally Left hand is swollen,and bruised over the 2nd Metacarpal area Neuro-AAOx3 Lab data as noted below. ASSESSMENT & PLAN: Upper gastrointestinal bleed/hematemesis Differential includes esophagitis, Seda-Howard tear, gastritis, gastric ulcer Remained hemodynamically stable Has been on IV Protonix Follow HH, transfuse prbc if Hg less than 8. No more episodes Hb stable >10 Appreciate GI input-no EGD if remains stable Change Protonix to oral ESRD on HD Nephrology consult-appreciate input Dialysis tomorrow Hypertension, slightly elevated. Chronic diastolic HF (EF 55%), px on the dry side History of coronary artery disease sp stenting/ PVD as per records DM2, insulin requiring Reasonable control as of recent HgA1c, 7.2 as of June 2016. ISS BG goal 140-180 Past tobacco abuse. DVT prophylaxis, SCDs RE GI bleed. Full code. Likely discharge home tomorrow Vital Signs: Date Time Temp Pulse Resp B/P Pulse Ox O2 Delivery O2 Flow Rate FiO2 09/29/16 10:17 64 151/77 09/29/16 10:08 74 109/93 09/29/16 07:27 36.6 66 18 143/77 97 Room Air 09/29/16 04:00 Room Air 09/29/16 03:52 36.6 64 17 143/80 96 Room Air 09/29/16 00:00 Room Air 09/28/16 23:53 36.6 64 20 110/63 96 Room Air 09/28/16 20:15 36.7 70 20 140/71 98 Room Air 09/28/16 20:00 Room Air 09/28/16 16:38 36.6 70 16 117/73 98 Room Air 09/28/16 16:00 Room Air Lab Results: Results Past 24 Hours Test 09/28/16 16:17 09/28/16 18:35 09/28/16 20:36 09/29/16 05:23 Range/Units Bedside Glucose 175 156 70-90 mg/dl Hemoglobin 10.1 10.0 12.0-16.0 g/dL Hematocrit 31.4 31.8 37-47 % White Blood Count 9.40 4.8-10.8 K/uL Red Blood Count 3.33 4.2-5.4 M/uL Mean Corpuscular Volume 95.5 80-100 fL Mean Corpuscular Hemoglobin 30.0 25-34 pg Mean Corpuscular Hemoglobin Concent 31.4 32-36 g/dl Platelet Count 346 130-400 K/uL Mean Platelet Volume 10.4 7.4-10.4 fL Neutrophils (%) (Auto) 47.3 % Lymphocytes (%) (Auto) 35.1 % Monocytes (%) (Auto) 13.6 % Eosinophils (%) (Auto) 3.3 % Basophils (%) (Auto) 0.5 % Neutrophils # (Auto) 4.44 1.4-6.5 K/uL Lymphocytes # (Auto) 3.30 1.2-3.4 K/uL Monocytes # (Auto) 1.28 0.11-0.59 K/uL Eosinophils # (Auto) 0.31 0-0.5 K/uL Basophils # (Auto) 0.05 0-0.2 K/uL RDW Standard Deviation 50.6 36.4-46.3 fL RDW Coefficient of Variation 14.7 11.5-14.5 % Immature Granulocyte % (Auto) 0.2 % Immature Granulocyte # (Auto) 0.02 0.00-0.02 K/uL Sodium Level 133 136-145 mmol/L Potassium Level 4.5 3.5-5.1 mmol/L Chloride Level 91 98-107 mmol/L Carbon Dioxide Level 30 21-32 mmol/L Anion Gap 12.0 3-11 mmol/L Blood Urea Nitrogen 39 7-18 mg/dl Creatinine 8.50 0.60-1.20 mg/dl Est Creatinine Clear Calc Drug Dose 9.9 ml/min Estimated GFR () 5.8 Estimated GFR (Non- 5.0 BUN/Creatinine Ratio 4.6 10-20 Random Glucose 96 70-99 mg/dl Calcium Level 8.8 8.5-10.1 mg/dl Test 09/29/16 07:01 09/29/16 10:59 Range/Units Bedside Glucose 102 147 70-90 mg/dl
--- NOTE | 2016-09-29 14:47 | DIAGNOSTIC IMAGING REPORT ---
LEFT HAND 3 VIEWS CLINICAL HISTORY: Left hand pain. FINDINGS: 3 views of the left hand are obtained. No prior studies are available for comparison at the time of dictation. The skeletal structures are well mineralized. No fracture is seen. There is mild degenerative narrowing at the radiocarpal articulation. Mild osteoarthritic change is also seen involving the first metacarpophalangeal joint and the interphalangeal joints. Erosive change is present in the head of the fifth middle phalanx. Large soft tissues calcifications are identified in the second and fourth fingers. Advanced atherosclerotic calcification is present in the regional arteries.. IMPRESSION: 1. No acute bony abnormality is seen in the left hand. 2. Osteopenia with mild osteoarthritic change as above. A bony erosion is present in the head of the fifth middle phalanx. 3. Large and nonspecific soft tissue calcifications are present within the second and fourth digits. This could be seen in setting of an autoimmune process, gouty arthropathy, or possible tumoral calcinosis. Clinical correlation will be essential. Electronically signed by: Uriel Thomson M.D. 09/29/2016 2:46 PM Dictated Date/Time: 09/29/2016 2:40 PM
[2016-09-29] MEDS: HYDROmorphone INJ 1 MG/ML SYR IV PRN ×2 (14:56→20:34)
[2016-09-29] MEDS: ONDANSETRON INJ 2 MG/ML 2 ML VIAL IV PRN (14:57)
[2016-09-29] MEDS: PANTOprazole SOD 40 MG TAB PO SCH (20:22)
[2016-09-29] MEDS: SERTRALINE HCL 50 MG TAB PO SCH (20:23)
[2016-09-30] VITALS (26 sets, daily range): BP systolic 100–188; BP diastolic 57–88; PULSE 63–75; TEMP 36.7–37.5; O2SAT 92–96
[2016-09-30] MEDS: TRAMADOL HCL 50 MG TAB PO PRN (00:40)
[2016-09-30] MEDS: HYDROmorphone INJ 1 MG/ML SYR IV PRN ×3 (00:41→22:01)
[2016-09-30 05:57] LABS: BASO % 0.4 %; BASO ABS # 0.04 K/uL (0-0.2); COMPLETE YES; EOS % 4.6 %; HEMATOCRIT 28.9 % (37-47); IG% 0.1 %; LYMPH % 26.5 %; LYMPH ABS # 2.47 K/uL (1.2-3.4); MEAN CELL VOLUME 95.1 fL (80-100); MEAN CORPUSCULAR HEMOGLOBIN 30.3 pg (25-34); MEAN CORPUSCULAR HGB CONC 31.8 g/dl (32-36); MEAN PLATELET VOLUME 9.9 fL (7.4-10.4); MONO % 8.2 %; NEUT % 60.2 %; PLATELET COUNT 302 K/uL (130-400); RED BLOOD COUNT 3.04 M/uL (4.2-5.4); WHITE BLOOD COUNT 9.31 K/uL (4.8-10.8)
[2016-09-30 06:43] LABS: BUN/CREATININE RATIO 5.6 (10-20); CALCIUM 8.4 mg/dl (8.5-10.1); POTASSIUM 4.3 mmol/L (3.5-5.1)
[2016-09-30] MEDS: INSULIN ASPART 100 UNITS/ML 3 ML PEN SC SCH ×4 (07:45→21:00)
[2016-09-30] MEDS: INSULIN GLARGINE SOLOSTAR 100 UNITS/ML 3 ML PEN SC SCH (07:47)
[2016-09-30] MEDS: PANTOprazole SOD 40 MG TAB PO SCH ×2 (07:56→20:28)
[2016-09-30] MEDS: CALCIUM ACETATE 667MG GELCAP PO SCH ×3 (07:56→16:54)
[2016-09-30] MEDS ORDERED: EPOETIN ALFA 10,000 UNITS/ML VIAL IV. SCH (08:00)
[2016-09-30] MEDS: METOPROLOL TARTRATE 25 MG TAB PO SCH ×2 (09:00→20:28)
[2016-09-30] MEDS: ISOSORBIDE MONONITRATE 30 MG TABCR PO SCH (09:00)
--- NOTE | 2016-09-30 12:23 | Progress Note ---
Internal Med Progress Note Date of Service: Sep 30, 2016. Provider Documentation: SUBJECTIVE: The patient was seen and examined No more hematemesis ,No Melena Minimal Epigastric discomfort Complains left hand pain with swelling and bruising-no fracture Remains stable OBJECTIVE: Vital Signs-as noted below Exam: General-No distress at rest Eyes-normal ENT-normal Neck-supple Lungs-Clear to auscultate bilaterally Heart-Regular Abdomen-Benign,no masses Extremities-Trace edema bilaterally Left hand is swollen,and bruised over the 2nd Metacarpal area Neuro-AAOx3 Lab data as noted below. ASSESSMENT & PLAN: Upper gastrointestinal bleed/hematemesis Differential includes esophagitis, Seda-Howard tear, gastritis, gastric ulcer Remained hemodynamically stable Has been on IV Protonix Follow HH, transfuse prbc if Hg less than 8. Hb stable >9 Appreciate GI input-no EGD if remains stable Change IV Protonix to oral Recheck Hb after Dialysis -d/c if stable ESRD on HD Nephrology consult-appreciate input Dialysis today Hypertension, slightly elevated. No acute issue Chronic diastolic HF (EF 55%), px on the dry side History of coronary artery disease sp stenting/ PVD as per records DM2, insulin requiring Reasonable control as of recent HgA1c, 7.2 as of June 2016. ISS BG goal 140-180 Past tobacco abuse. DVT prophylaxis, SCDs RE GI bleed. Full code. Likely discharge home today after HD and if Hb remains stakle Vital Signs: Date Time Temp Pulse Resp B/P Pulse Ox O2 Delivery O2 Flow Rate FiO2 09/30/16 11:45 63 127/60 09/30/16 11:30 63 125/68 09/30/16 11:15 64 120/69 09/30/16 11:01 64 121/66 09/30/16 10:45 63 126/67 09/30/16 10:30 63 114/61 09/30/16 10:15 63 111/61 09/30/16 10:00 63 100/59 09/30/16 09:45 63 110/57 09/30/16 09:30 63 118/74 09/30/16 09:20 36.7 66 130/71 09/30/16 08:00 Room Air 09/30/16 07:59 37.0 64 16 136/79 94 Room Air 09/30/16 04:00 Room Air 09/30/16 04:00 36.7 72 18 132/74 92 Room Air 09/29/16 23:59 Room Air 09/29/16 23:51 36.9 68 18 125/73 92 Room Air 09/29/16 20:15 Room Air 09/29/16 19:36 36.7 72 16 121/75 93 Room Air 09/29/16 16:00 Room Air 09/29/16 15:44 36.9 61 16 108/62 92 Room Air Lab Results: Results Past 24 Hours Test 09/29/16 16:14 09/29/16 20:15 09/30/16 05:35 09/30/16 06:56 Range/Units Bedside Glucose 114 193 112 70-90 mg/dl White Blood Count 9.31 4.8-10.8 K/uL Red Blood Count 3.04 4.2-5.4 M/uL Hemoglobin 9.2 12.0-16.0 g/dL Hematocrit 28.9 37-47 % Mean Corpuscular Volume 95.1 80-100 fL Mean Corpuscular Hemoglobin 30.3 25-34 pg Mean Corpuscular Hemoglobin Concent 31.8 32-36 g/dl Platelet Count 302 130-400 K/uL Mean Platelet Volume 9.9 7.4-10.4 fL Neutrophils (%) (Auto) 60.2 % Lymphocytes (%) (Auto) 26.5 % Monocytes (%) (Auto) 8.2 % Eosinophils (%) (Auto) 4.6 % Basophils (%) (Auto) 0.4 % Neutrophils # (Auto) 5.60 1.4-6.5 K/uL Lymphocytes # (Auto) 2.47 1.2-3.4 K/uL Monocytes # (Auto) 0.76 0.11-0.59 K/uL Eosinophils # (Auto) 0.43 0-0.5 K/uL Basophils # (Auto) 0.04 0-0.2 K/uL RDW Standard Deviation 50.0 36.4-46.3 fL RDW Coefficient of Variation 14.7 11.5-14.5 % Immature Granulocyte % (Auto) 0.1 % Immature Granulocyte # (Auto) 0.01 0.00-0.02 K/uL Sodium Level 133 136-145 mmol/L Potassium Level 4.3 3.5-5.1 mmol/L Chloride Level 91 98-107 mmol/L Carbon Dioxide Level 29 21-32 mmol/L Anion Gap 13.0 3-11 mmol/L Blood Urea Nitrogen 56 7-18 mg/dl Creatinine 10.00 0.60-1.20 mg/dl Est Creatinine Clear Calc Drug Dose 8.5 ml/min Estimated GFR () 4.7 Estimated GFR (Non- 4.1 BUN/Creatinine Ratio 5.6 10-20 Random Glucose 106 70-99 mg/dl Calcium Level 8.4 8.5-10.1 mg/dl Test 09/30/16 11:13 Range/Units Bedside Glucose 137 70-90 mg/dl
[2016-09-30] MEDS: ONDANSETRON INJ 2 MG/ML 2 ML VIAL IV PRN (14:05)
--- NOTE | 2016-09-30 14:23 | Nephrology Progress Note ---
Nephrology Progress Note Date of Service: Sep 30, 2016. Subjective 50 yo female who underwent dialysis today. pt had unsuccessful cannulation yesterday so was unable to do dialysis. pt continues to have nausea. no vomiting. no diarrhea. Objective Date Time Temp Pulse Resp B/P Pulse Ox O2 Delivery O2 Flow Rate FiO2 09/30/16 12:35 36.9 69 149/79 09/30/16 12:30 64 113/62 09/30/16 12:15 66 124/65 09/30/16 12:00 Room Air 09/30/16 12:00 67 132/72 09/30/16 11:45 63 127/60 09/30/16 11:30 63 125/68 09/30/16 11:15 64 120/69 09/30/16 11:01 64 121/66 09/30/16 10:45 63 126/67 09/30/16 10:30 63 114/61 09/30/16 10:15 63 111/61 09/30/16 10:00 63 100/59 09/30/16 09:45 63 110/57 09/30/16 09:30 63 118/74 09/30/16 09:20 36.7 66 130/71 09/30/16 08:00 Room Air 09/30/16 07:59 37.0 64 16 136/79 94 Room Air 09/30/16 04:00 Room Air 09/30/16 04:00 36.7 72 18 132/74 92 Room Air 09/29/16 23:59 Room Air 09/29/16 23:51 36.9 68 18 125/73 92 Room Air 09/29/16 20:15 Room Air 09/29/16 19:36 36.7 72 16 121/75 93 Room Air 09/29/16 16:00 Room Air 09/29/16 15:44 36.9 61 16 108/62 92 Room Air Physical Exam: General-aaox3, obese Eyes-no scleral icterus ENT-mmm Neck-supple Lungs-cta Heart-rrr Abdomen-bs+ s/nt Extremities-no c/c/e Neuro-nonfocal Current Inpatient Medications Medications (Trade) Dose Ordered Sig/Bladimir Route Start Time Stop Time Status Last Admin Dose Admin Hydromorphone HCl (Dilaudid Inj) 0.5 mg Q3H PRN IV 09/28/16 01:45 2/21/17 01:44 09/30/16 00:41 0.5 MG Tramadol HCl (Ultram Tab) 25 mg Q6H PRN PO 09/28/16 01:45 10/28/16 01:44 09/30/16 00:40 25 MG Ondansetron HCl 4 mg 4 mg Q6H PRN IV 09/28/16 01:45 10/28/16 01:44 09/30/16 14:05 4 MG Promethazine HCl/ Sodium Chloride (Phenergan Inj/ Nss 50ml) 50.5 ml @ 204 mls/hr Q6H PRN IV 09/28/16 01:45 10/28/16 01:44 Lorazepam (Ativan Inj) 0.5 mg Q4H PRN IV 09/28/16 01:45 10/28/16 01:44 Isosorbide Mononitrate (Imdur Ext Rel Tab) 90 mg QAM PO 09/28/16 09:00 10/28/16 08:59 09/29/16 08:47 90 MG Metoprolol Tartrate (Lopressor Tab) 50 mg BID PO 09/28/16 09:00 10/28/16 08:59 09/29/16 20:23 50 MG Insulin Aspart (novoLOG ASPART) SLIDING SCALE If C... ACHS SC 09/28/16 07:00 10/28/16 06:59 09/29/16 20:25 1 UNITS Glucose (Glucose 40% Gel) 15-30 GRAMS 15 GRAMS... UD PRN PO 09/28/16 01:45 10/28/16 01:44 Glucose (Glucose Chew Tab) 4-8 Tablets 4 Tabl... UD PRN PO 09/28/16 01:45 10/28/16 01:44 Dextrose (Dextrose 50% 50ML Syringe) 25-50ML OF 50% DW IV FOR... UD PRN IV 09/28/16 01:45 10/28/16 01:44 Glucagon (Glucagon Inj) 1 mg UD PRN SQ 09/28/16 01:45 10/28/16 01:44 Miscellaneous (Iv Fluids Completed) 1 ea PRN PRN N/A 09/28/16 02:30 09/28/17 02:29 Insulin Glargine (Lantus Solostar Pen) 5 unit DAILY SC 09/29/16 09:00 10/29/16 08:59 09/30/16 07:47 5 UNIT Sertraline HCl (Zoloft Tab) 100 mg HS PO 09/28/16 21:00 10/28/16 20:59 09/29/16 20:23 100 MG Calcium Acetate (Phoslo Cap) 2,001 mg TIDM PO 09/29/16 11:30 10/29/16 11:29 09/30/16 14:05 2,001 MG Pantoprazole Sodium (Protonix Tab) 40 mg BID PO 09/29/16 21:00 10/29/16 20:59 09/30/16 07:56 40 MG Epoetin Christopher (Procrit Inj) 10,000 units TODAY@0800 IV. 09/30/16 08:00 09/30/16 16:00 09/30/16 10:42 10,000 UNITS Last 24 Hours Test 09/29/16 16:14 09/29/16 20:15 09/30/16 05:35 09/30/16 06:56 Bedside Glucose 114 mg/dl 193 mg/dl 112 mg/dl White Blood Count 9.31 K/uL Red Blood Count 3.04 M/uL Hemoglobin 9.2 g/dL Hematocrit 28.9 % Mean Corpuscular Volume 95.1 fL Mean Corpuscular Hemoglobin 30.3 pg Mean Corpuscular Hemoglobin Concent 31.8 g/dl Platelet Count 302 K/uL Mean Platelet Volume 9.9 fL Neutrophils (%) (Auto) 60.2 % Lymphocytes (%) (Auto) 26.5 % Monocytes (%) (Auto) 8.2 % Eosinophils (%) (Auto) 4.6 % Basophils (%) (Auto) 0.4 % Neutrophils # (Auto) 5.60 K/uL Lymphocytes # (Auto) 2.47 K/uL Monocytes # (Auto) 0.76 K/uL Eosinophils # (Auto) 0.43 K/uL Basophils # (Auto) 0.04 K/uL RDW Standard Deviation 50.0 fL RDW Coefficient of Variation 14.7 % Immature Granulocyte % (Auto) 0.1 % Immature Granulocyte # (Auto) 0.01 K/uL Sodium Level 133 mmol/L Potassium Level 4.3 mmol/L Chloride Level 91 mmol/L Carbon Dioxide Level 29 mmol/L Anion Gap 13.0 mmol/L Blood Urea Nitrogen 56 mg/dl Creatinine 10.00 mg/dl Est Creatinine Clear Calc Drug Dose 8.5 ml/min Estimated GFR () 4.7 Estimated GFR (Non- 4.1 BUN/Creatinine Ratio 5.6 Random Glucose 106 mg/dl Calcium Level 8.4 mg/dl Test 09/30/16 11:13 Bedside Glucose 137 mg/dl Assessment & Plan ESRD-pt underwent dialysis today and will dialyze again tomorrow to keep on -- schedule. no uf secondary to poor appetite. Anemia of renal failure-continue procrit to keep hg levels between 10 to 11 OSIRIS-phos levels chronically leevated and has severe secondary hyperparathyroidism-on phoslo.
[2016-09-30] MEDS ORDERED: BISACODYL 10 MG SUPP PR STA (18:32)
[2016-09-30] MEDS ORDERED: PSYLLIUM 58.6% PWD PACK S\\F PO ONE (18:33)
[2016-09-30 18:40] LABS: HEMATOCRIT 29.2 % (37-47)
[2016-09-30] MEDS ORDERED: METHYLPREDNISOLONE IV 20 MG in SYRINGE 0 ML IV ONE (19:00)
[2016-09-30] MEDS: SERTRALINE HCL 50 MG TAB PO SCH (20:28)
[2016-10-01] VITALS (18 sets, daily range): BP systolic 97–147; BP diastolic 57–84; PULSE 65–72; TEMP 36.6–37.1; O2SAT 95–98
[2016-10-01 06:30] LABS: BASO % 0.2 %; BASO ABS # 0.02 K/uL (0-0.2); COMPLETE YES; EOS % 0.2 %; HEMATOCRIT 33.6 % (37-47); IG% 0.3 %; LYMPH % 7.1 %; LYMPH ABS # 0.84 K/uL (1.2-3.4); MEAN CELL VOLUME 94.6 fL (80-100); MEAN CORPUSCULAR HEMOGLOBIN 30.1 pg (25-34); MEAN CORPUSCULAR HGB CONC 31.8 g/dl (32-36); MEAN PLATELET VOLUME 10.5 fL (7.4-10.4); MONO % 1.6 %; NEUT % 90.6 %; PLATELET COUNT 336 K/uL (130-400); RED BLOOD COUNT 3.55 M/uL (4.2-5.4)
[2016-10-01 07:14] LABS: CALCIUM 8.9 mg/dl (8.5-10.1); CREATININE 7.7 mg/dl (0.60-1.20); POTASSIUM 5.2 mmol/L (3.5-5.1)
[2016-10-01] MEDS: ISOSORBIDE MONONITRATE 30 MG TABCR PO SCH (08:00)
[2016-10-01] MEDS: METOPROLOL TARTRATE 25 MG TAB PO SCH (08:00)
[2016-10-01] MEDS ORDERED: PSYLLIUM 58.6% PWD PACK S\\F PO SCH (08:00)
[2016-10-01] MEDS: PANTOprazole SOD 40 MG TAB PO SCH (08:16)
[2016-10-01] MEDS: CALCIUM ACETATE 667MG GELCAP PO SCH ×3 (08:16→16:48)
[2016-10-01] MEDS: INSULIN GLARGINE SOLOSTAR 100 UNITS/ML 3 ML PEN SC SCH (08:23)
[2016-10-01] MEDS: INSULIN ASPART 100 UNITS/ML 3 ML PEN SC SCH ×3 (08:24→16:30)
[2016-10-01] MEDS ORDERED: EPOETIN ALFA 10,000 UNITS/ML VIAL IV. SCH (09:00)
--- NOTE | 2016-10-01 09:49 | Nephrology Progress Note ---
Nephrology Progress Note Date of Service: Oct 01, 2016. Subjective 50 yo female with esrd with n/v. pt moving bowels now. will stop the metamucil and dulcolax. was able to eat breakfast well today. pt would like to leave this afternoon if possible. Objective Date Time Temp Pulse Resp B/P Pulse Ox O2 Delivery O2 Flow Rate FiO2 10/01/16 08:22 36.6 69 25 145/77 98 Room Air 10/01/16 00:00 95 Room Air 0.0 09/30/16 23:59 36.9 65 20 133/70 96 Room Air 09/30/16 21:06 95 Room Air 09/30/16 21:00 36.8 72 20 123/76 95 Room Air 0.0 09/30/16 20:43 37.3 75 16 96 2.0 09/30/16 20:30 75 104/70 09/30/16 20:00 96 Room Air 09/30/16 19:52 37.3 75 16 188/88 96 09/30/16 16:00 95 Room Air 09/30/16 15:47 37.5 75 16 153/73 94 09/30/16 12:35 36.9 69 149/79 09/30/16 12:30 64 113/62 09/30/16 12:15 66 124/65 09/30/16 12:00 Room Air 09/30/16 12:00 67 132/72 09/30/16 11:45 63 127/60 09/30/16 11:30 63 125/68 09/30/16 11:15 64 120/69 09/30/16 11:01 64 121/66 09/30/16 10:45 63 126/67 09/30/16 10:30 63 114/61 09/30/16 10:15 63 111/61 09/30/16 10:00 63 100/59 09/30/16 09:45 63 110/57 Physical Exam: General-aaox3, obese Eyes-no scleral icterus ENT-mmm Neck-supple Lungs-clear Heart-regular Abdomen-bs+ s/nt Extremities-no c/c/e Neuro-nonfocal Current Inpatient Medications Medications (Trade) Dose Ordered Sig/Bladimir Route Start Time Stop Time Status Last Admin Dose Admin Hydromorphone HCl (Dilaudid Inj) 0.5 mg Q3H PRN IV 2/7/17 01:45 10/12/16 01:44 09/30/16 22:01 0.5 MG Tramadol HCl (Ultram Tab) 25 mg Q6H PRN PO 09/28/16 01:45 10/28/16 01:44 09/30/16 00:40 25 MG Ondansetron HCl 4 mg 4 mg Q6H PRN IV 09/28/16 01:45 10/28/16 01:44 09/30/16 14:05 4 MG Promethazine HCl/ Sodium Chloride (Phenergan Inj/ Nss 50ml) 50.5 ml @ 204 mls/hr Q6H PRN IV 09/28/16 01:45 10/28/16 01:44 Lorazepam (Ativan Inj) 0.5 mg Q4H PRN IV 09/28/16 01:45 10/28/16 01:44 Isosorbide Mononitrate (Imdur Ext Rel Tab) 90 mg QAM PO 09/28/16 09:00 10/28/16 08:59 09/29/16 08:47 90 MG Metoprolol Tartrate (Lopressor Tab) 50 mg BID PO 09/28/16 09:00 10/28/16 08:59 09/30/16 20:28 50 MG Insulin Aspart (novoLOG ASPART) SLIDING SCALE If C... ACHS SC 09/28/16 07:00 10/28/16 06:59 10/01/16 08:24 1 UNITS Glucose (Glucose 40% Gel) 15-30 GRAMS 15 GRAMS... UD PRN PO 09/28/16 01:45 10/28/16 01:44 Glucose (Glucose Chew Tab) 4-8 Tablets 4 Tabl... UD PRN PO 09/28/16 01:45 10/28/16 01:44 Dextrose (Dextrose 50% 50ML Syringe) 25-50ML OF 50% DW IV FOR... UD PRN IV 09/28/16 01:45 10/28/16 01:44 Glucagon (Glucagon Inj) 1 mg UD PRN SQ 09/28/16 01:45 10/28/16 01:44 Miscellaneous (Iv Fluids Completed) 1 ea PRN PRN N/A 09/28/16 02:30 09/28/17 02:29 Insulin Glargine (Lantus Solostar Pen) 5 unit DAILY SC 09/29/16 09:00 10/29/16 08:59 10/01/16 08:23 5 UNIT Sertraline HCl (Zoloft Tab) 100 mg HS PO 09/28/16 21:00 10/28/16 20:59 09/30/16 20:28 100 MG Calcium Acetate (Phoslo Cap) 2,001 mg TIDM PO 09/29/16 11:30 10/29/16 11:29 10/01/16 08:16 2,001 MG Pantoprazole Sodium (Protonix Tab) 40 mg BID PO 09/29/16 21:00 10/29/16 20:59 10/01/16 08:16 40 MG Psyllium Hydrophilic Mucilloid (Metamucil Powder) 1 pkt QAM PO 10/01/16 08:00 10/31/16 08:59 10/01/16 08:16 1 PKT Epoetin Christopher (Procrit Inj) 10,000 units TODAY@0900 IV. 10/01/16 09:00 10/01/16 18:00 Last 24 Hours Test 09/30/16 11:13 09/30/16 16:27 09/30/16 18:12 09/30/16 21:14 Bedside Glucose 137 mg/dl 131 mg/dl 121 mg/dl Hemoglobin 9.4 g/dL Hematocrit 29.2 % Test 10/01/16 06:00 White Blood Count 11.90 K/uL Red Blood Count 3.55 M/uL Hemoglobin 10.7 g/dL Hematocrit 33.6 % Mean Corpuscular Volume 94.6 fL Mean Corpuscular Hemoglobin 30.1 pg Mean Corpuscular Hemoglobin Concent 31.8 g/dl Platelet Count 336 K/uL Mean Platelet Volume 10.5 fL Neutrophils (%) (Auto) 90.6 % Lymphocytes (%) (Auto) 7.1 % Monocytes (%) (Auto) 1.6 % Eosinophils (%) (Auto) 0.2 % Basophils (%) (Auto) 0.2 % Neutrophils # (Auto) 10.79 K/uL Lymphocytes # (Auto) 0.84 K/uL Monocytes # (Auto) 0.19 K/uL Eosinophils # (Auto) 0.02 K/uL Basophils # (Auto) 0.02 K/uL RDW Standard Deviation 49.5 fL RDW Coefficient of Variation 14.5 % Immature Granulocyte % (Auto) 0.3 % Immature Granulocyte # (Auto) 0.04 K/uL Sodium Level 132 mmol/L Potassium Level 5.2 mmol/L Chloride Level 96 mmol/L Carbon Dioxide Level 26 mmol/L Anion Gap 10.0 mmol/L Blood Urea Nitrogen 38 mg/dl Creatinine 7.70 mg/dl Est Creatinine Clear Calc Drug Dose 11.0 ml/min Estimated GFR () 6.5 Estimated GFR (Non- 5.6 BUN/Creatinine Ratio 5.0 Random Glucose 173 mg/dl Calcium Level 8.9 mg/dl Assessment & Plan ESRD-pt for dialysis today. did have issues with cannulation on tuesday. tolerated dialysis well yesterday. today is her regular dialysis treatment. plan on one liter uf since starting to eat better. Anemia of renal failure-continue procrit to keep hg levels between 10 to 11. hg of 10.7. OSIRIS-continue phosphate binders and encourage compliance when she goes home. hyperkalemia-will do her on a 2k bath to help with her rising k levels.
--- NOTE | 2016-10-01 15:45 | Progress Note ---
Internal Med Progress Note Date of Service: Oct 01, 2016. Provider Documentation: SUBJECTIVE: The patient was seen and examined No more hematemesis ,No Melena Minimal Epigastric discomfort Complains left hand pain with swelling and bruising-no fracture Left hand pain is better OBJECTIVE: Vital Signs-as noted below Exam: General-No distress at rest Eyes-normal ENT-normal Neck-supple Lungs-Clear to auscultate bilaterally Heart-Regular Abdomen-Benign,no masses Extremities-Trace edema bilaterally Left hand is swollen,and bruised over the 2nd Metacarpal area Neuro-AAOx3 Lab data as noted below. ASSESSMENT & PLAN: Left Hand Pain May have Gout Will give short course of Prednisone Upper gastrointestinal bleed/hematemesis Differential includes esophagitis, Seda-Howard tear, gastritis, gastric ulcer Remained hemodynamically stable Has been on IV Protonix Follow HH, transfuse prbc if Hg less than 8. Appreciate GI input-no EGD if remains stable Change IV Protonix to oral Hb >10 on 10/01/16 Discharge home today ESRD on HD Nephrology consult-appreciate input Dialysis done today 10/01/16 Hypertension, slightly elevated. No acute issue Chronic diastolic HF (EF 55%), px on the dry side History of coronary artery disease sp stenting/ PVD as per records DM2, insulin requiring Reasonable control as of recent HgA1c, 7.2 as of June 2016. ISS BG goal 140-180 Past tobacco abuse. DVT prophylaxis, SCDs RE GI bleed. Full code. [id number] today Vital Signs: Date Time Temp Pulse Resp B/P Pulse Ox O2 Delivery O2 Flow Rate FiO2 10/01/16 15:29 37.1 72 18 135/83 98 Room Air 72 10/01/16 12:50 37.1 67 117/57 10/01/16 12:15 67 141/74 10/01/16 12:00 68 97/63 10/01/16 11:45 65 136/69 10/01/16 11:30 70 136/78 10/01/16 11:15 68 138/64 10/01/16 11:00 69 133/69 10/01/16 10:45 69 145/78 10/01/16 10:30 69 134/62 10/01/16 10:15 66 147/84 10/01/16 10:00 65 128/75 10/01/16 09:45 65 141/77 10/01/16 09:30 65 144/75 10/01/16 09:25 37.0 65 140/73 10/01/16 08:22 36.6 69 25 145/77 98 Room Air 10/01/16 08:00 Room Air 10/01/16 00:00 95 Room Air 0.0 09/30/16 23:59 36.9 65 20 133/70 96 Room Air 09/30/16 21:06 95 Room Air 09/30/16 21:00 36.8 72 20 123/76 95 Room Air 0.0 09/30/16 20:43 37.3 75 16 96 2.0 09/30/16 20:30 75 104/70 09/30/16 20:00 96 Room Air 09/30/16 19:52 37.3 75 16 188/88 96 09/30/16 16:00 95 Room Air Lab Results: Results Past 24 Hours Test 09/30/16 16:27 09/30/16 18:12 09/30/16 21:14 10/01/16 06:00 Range/Units Bedside Glucose 131 121 70-90 mg/dl Hemoglobin 9.4 10.7 12.0-16.0 g/dL Hematocrit 29.2 33.6 37-47 % White Blood Count 11.90 4.8-10.8 K/uL Red Blood Count 3.55 4.2-5.4 M/uL Mean Corpuscular Volume 94.6 80-100 fL Mean Corpuscular Hemoglobin 30.1 25-34 pg Mean Corpuscular Hemoglobin Concent 31.8 32-36 g/dl Platelet Count 336 130-400 K/uL Mean Platelet Volume 10.5 7.4-10.4 fL Neutrophils (%) (Auto) 90.6 % Lymphocytes (%) (Auto) 7.1 % Monocytes (%) (Auto) 1.6 % Eosinophils (%) (Auto) 0.2 % Basophils (%) (Auto) 0.2 % Neutrophils # (Auto) 10.79 1.4-6.5 K/uL Lymphocytes # (Auto) 0.84 1.2-3.4 K/uL Monocytes # (Auto) 0.19 0.11-0.59 K/uL Eosinophils # (Auto) 0.02 0-0.5 K/uL Basophils # (Auto) 0.02 0-0.2 K/uL RDW Standard Deviation 49.5 36.4-46.3 fL RDW Coefficient of Variation 14.5 11.5-14.5 % Immature Granulocyte % (Auto) 0.3 % Immature Granulocyte # (Auto) 0.04 0.00-0.02 K/uL Sodium Level 132 136-145 mmol/L Potassium Level 5.2 3.5-5.1 mmol/L Chloride Level 96 98-107 mmol/L Carbon Dioxide Level 26 21-32 mmol/L Anion Gap 10.0 3-11 mmol/L Blood Urea Nitrogen 38 7-18 mg/dl Creatinine 7.70 0.60-1.20 mg/dl Est Creatinine Clear Calc Drug Dose 11.0 ml/min Estimated GFR () 6.5 Estimated GFR (Non- 5.6 BUN/Creatinine Ratio 5.0 10-20 Random Glucose 173 70-99 mg/dl Calcium Level 8.9 8.5-10.1 mg/dl Test 10/01/16 08:23 10/01/16 11:53 Range/Units Bedside Glucose 208 135 70-90 mg/dl
[2016-10-01] MEDS ORDERED: PRED10TA PO (15:48)
--- NOTE | 2016-10-01 15:51 | Discharge Instructions ---
Discharge Instructions Admission Reason for Admission: UGIB Discharge Discharge Diagnosis / Problem: UGI bleed-No drop in H/H,ESRD on HD Discharge Goals Goal(s): Prevent Disease Progression Activity Recommendations Activity Limitations: resume your previous activity . Instructions / Follow-Up Instructions / Follow-Up Dr Borrero on 10/05/16 at 10:50AM.Keep appointment with Dialysis Current Hospital Diet Patient's current hospital diet: Diabetes Type 2 Diet, Renal Diet Discharge Diet Recommended Diet: Diabetes Type 2 Diet, Renal Diet Pending Studies Studies pending at discharge: no Medical Emergencies . Who to Call and When: Medical Emergencies: If at any time you feel your situation is an emergency, please call 911 immediately. . Non-Emergent Contact Non-Emergency issues call your: Primary Care Provider . Past History Medical & Surgical History: (1) UGIB (upper gastrointestinal bleed) (2) Vomiting (3) CAD (coronary artery disease) (4) Carotid stenosis (5) Ischemic cardiomyopathy (6) ESRD (end stage renal disease) on dialysis (7) DM type 2 (diabetes mellitus, type 2) (8) Morbid obesity (9) Dyslipidemia (10) HTN (hypertension) . "Provider Documentation" section prepared by Margarita Robles. VTE Core Measure Inpt VTE Proph given/why not?: SCD's (UGIB)
--- NOTE | 2016-10-01 18:48 | Discharge Summary ---
Discharge Summary Admission Date: Sep 28, 2016 at 01:19 Discharge Date: Oct 01, 2016 Discharge Disposition: Home Principal Diagnosis: UGI bleed-No drop in H/H,ESRD on HD Secondary Diagnoses/Problems: Please see H&P Consultations: Nephrology Medication Reconciliation New Medications: Prednisone Tab (Prednisone) 10 Mg Tab 10 MG PO UD for 7 Days, #10 TAB 2 po daily for 3 days and then 1 po daily for 4 Continued Medications: Aspirin (Aspirin Ec) 81 Mg Tab 81 MG PO DAILY Atorvastatin (Lipitor) 20 Mg Tab 40 MG PO DAILY, TAB Calcium Acetate (Phoslo 667 Mg) 667 Mg Cap 1 CAP PO WM, CAP Clopidogrel Bisulfate (Plavix) 75 Mg Tab 1 TAB PO DAILY for 90 Days, #90 TAB 1 Refill Insulin Glargine (Lantus Solostar) 100 Unit/Ml Inj 10 UNITS SC QPM, PEN Isosorbide Mononitrate (Isosorbide Mononitrate ER) 30 Mg Tabcr 60 MG PO QAM Isosorbide Mononitrate Ext Rel (Imdur Ext Rel) 30 Mg Ertab 30 MG PO QAM, TAB Lorazepam (Ativan) 1 Mg Tab 0.5 MG PO DAILY PRN for Anxiety, TAB Methocarbamol (Methocarbamol) 500 Mg Tab 500 MG PO BID PRN for Muscle Spasms Metoprolol Tartrate (Lopressor) 25 Mg Tab 50 MG PO BID, TAB Ranitidine Hcl (Zantac) 150 Mg Tab 300 MG PO HS, TAB Sertraline HCl (Sertraline HCl) 50 Mg Tab 2 TAB PO DAILY for 30 Days, #60 TAB 5 Refills Tramadol (Ultram) 50 Mg Tab 1 TAB PO TID PRN for Pain for 30 Days, #90 TAB Admission Information HPI (per Admitting provider): DATE OF ADMISSION: 09/28/2016 PRIMARY CARE PHYSICIAN: Dr. Becerra. CHIEF COMPLAINT: Hematemesis. HISTORY OF PRESENT ILLNESS: Medical history significant for chronic diastolic heart failure, EF 55%, CAD sp stenting, PVD as per records, past tobacco abuse, DM2, insulin requiring, end-stage renal disease on hemodialysis, chronic anemia (baseline hemoglobin 10-11). Recent confinement last week for chest pain, possibly from hypertensive urgency. Last night, after arriving home from dialysis, px felt sick after eating a sandwich. Bilious emesis followed by 3 episodes of dark brown/bloody emesis. No chest pain, no shortness of breath, no fever, no chills. No black, no bloody stools. Patient noted some epigastric pain. Good BM. MEDICAL HISTORY: As above. SURGERIES: She has had vascular procedures FAMILY HISTORY: Heart disease, diabetes. PERSONAL AND SOCIAL HISTORY: Past tobacco abuse. No chronic intake of alcoholic beverages. Disabled. REVIEW OF SYSTEMS: As per HPI. all other ROS negative. PHYSICAL EXAMINATION: VITAL SIGNS: Blood pressure was noted to be 115/79, pulse rate 92, RR 20, temperature 36.6, sats 98 on room air. GENERAL: Noted to be slightly anxious, obese, no respiratory distress. Uncomfortable.Looks older than stated age. SKIN: Pallor. HEENT: Pale palpebral conjunctivae. Dry mucosa. NECK: Short neck. LUNGS: Decreased breath sounds. HEART: Regular rate and rhythm. ABDOMEN: Epigastric tenderness. EXTREMITIES: No edema. no tenderness NEUROLOGIC: No gross focality. LABS: Hemoglobin was 12.5, white cell count 15.4, platelets 272. Sodium 131, potassium 3.5, chloride 88, CO2 28, BUN 20, creatinine 7, glucose 195. Troponin 0.69. Lipase 227. CT of the abdomen and pelvis initial read showed hyperdense bile in the gallbladder, small hiatal hernia, extensive vascular calcifications. Chest x-ray showed no active disease. EKG showed sinus rhythm, 80 with PVCs, Q-waves in inferior leads ASSESSMENT: 1. Upper gastrointestinal bleed/hematemesis ddx include esophagitis, Seda-Howard tear, gastritis, gastric ulcer px currently hemodynamically stable 2. Hypertension, slightly elevated. 3. hx chronic diastolic HF (EF 55%), px on the dry side 4. History of coronary artery disease sp stenting/ PVD as per records 5. DM2, insulin requiring reasonable control as of recent HgA1c, 7.2 as of June 2016. 6. Past tobacco abuse. 7. ESRD on HD PLAN: Observation PCU. Follow HH, transfuse prbc if Hg less than 8. Appropriate to hold home antiplatelet tx IV PPI GI consult. RE UGIB Nephrology consult if px still admitted by tomorrow 09/29 (px known to [facility] [place]; dialysis sked MW) ISS BG goal 140-180 DVT prophylaxis, SCDs RE GI bleed. Full code. Dictated: 09/28/16 0157 Transcribed: 09/28/16 0506 <Electronically signed by Kali Patel M.D.> Signed: 09/28/16 1455 Hospital Course Left Hand Pain May have Gout Will give short course of Prednisone Upper gastrointestinal bleed/hematemesis Differential includes esophagitis, Seda-Howard tear, gastritis, gastric ulcer Remained hemodynamically stable Has been on IV Protonix Follow HH, transfuse prbc if Hg less than 8. Appreciate GI input-no EGD if remains stable Change IV Protonix to oral Hb >10 on 10/01/16 Discharge home today ESRD on HD Nephrology consult-appreciate input Dialysis done today 10/01/16 Hypertension, slightly elevated. No acute issue Chronic diastolic HF (EF 55%), px on the dry side History of coronary artery disease sp stenting/ PVD as per records DM2, insulin requiring Reasonable control as of recent HgA1c, 7.2 as of June 2016. ISS BG goal 140-180 Past tobacco abuse. DVT prophylaxis, SCDs RE GI bleed. Full code. [id number] today Total time spent on discharge = 35 minutes This includes examination of the patient, discharge planning, medication reconciliation, and communication with other providers. Discharge Instructions Admission Reason for Admission: UGIB Discharge Discharge Diagnosis / Problem: UGI bleed-No drop in H/H,ESRD on HD Discharge Goals Goal(s): Prevent Disease Progression Activity Recommendations Activity Limitations: resume your previous activity . Instructions / Follow-Up Instructions / Follow-Up Dr Borrero on 10/05/16 at 10:50AM.Keep appointment with Dialysis Current Hospital Diet Patient's current hospital diet: Diabetes Type 2 Diet, Renal Diet Discharge Diet Recommended Diet: Diabetes Type 2 Diet, Renal Diet Pending Studies Studies pending at discharge: no Medical Emergencies . Who to Call and When: Medical Emergencies: If at any time you feel your situation is an emergency, please call 911 immediately. . Non-Emergent Contact Non-Emergency issues call your: Primary Care Provider . Past History Medical & Surgical History: (1) UGIB (upper gastrointestinal bleed) (2) Vomiting (3) CAD (coronary artery disease) (4) Carotid stenosis (5) Ischemic cardiomyopathy (6) ESRD (end stage renal disease) on dialysis (7) DM type 2 (diabetes mellitus, type 2) (8) Morbid obesity (9) Dyslipidemia (10) HTN (hypertension) . "Provider Documentation" section prepared by Margarita Robles. VTE Core Measure Inpt VTE Proph given/why not?: SCD's (UGIB) <Electronically signed by Margarita Robles M.D.> Additional Copies To Tamy Becerra D.O.
[2016-10-06] MEDS ORDERED: HYDROmorphone INJ 0.5 MG/0.5 ML SYR IV PRN
[2016-10-06] MEDS ORDERED: LORAZEPAM 2 MG/ML 1 ML VIAL IV PRN
[2016-10-06] MEDS ORDERED: PROMETHAZINE HCL INJ 12.5 MG in SODIUM CHLORIDE 0.9% 50ML 50 ML IV PRN ×2
[2016-10-06] MEDS ORDERED: ONDANSETRON INJ 2 MG/ML 2 ML VIAL IV PRN
[2016-10-29] MEDS ORDERED: ONDA4TAB46 PO (12:40)
[2016-10-29] MEDS ORDERED: LCTX PO (12:40)
[2016-10-29] MEDS ORDERED: MTR500 PO (12:40)
[2016-10-29] MEDS ORDERED: LVQ500 PO (12:40)
[2016-10-29] MEDS ORDERED: MYC10 MT (12:40)
[2016-12-13] MEDS ORDERED: LEVO1TAB34 PO (13:44)
[2017-01-18] MEDS ORDERED: LEVO1TAB33 PO (11:06)
[2017-02-09] MEDS ORDERED: DOXY-300 PO (11:08)
[2017-03-31] MEDS ORDERED: SERT1TAB68 PO (09:13)
[2017-03-31] MEDS ORDERED: LORA5CHW10 PO (09:13)
[2017-03-31] MEDS ORDERED: LPT/40 PO (09:13)
[2017-03-31] MEDS ORDERED: FLUT50SP45 (09:13)
[2017-03-31] MEDS ORDERED: DICY10CA12 PO (11:36)
[2017-03-31] MEDS ORDERED: PANT40TA PO (11:36)
[2017-03-31] MEDS ORDERED: TRMCR515 TOP (14:18)
[2017-03-31] MEDS ORDERED: METO50TA16 PO (14:18)
[2017-03-31] MEDS ORDERED: ASPI-435 PO (15:36)
[2017-03-31] MEDS ORDERED: INSDGIPEN SC (21:11)
[2017-04-28] MEDS ORDERED: TPRSR/50 PO (13:22)
== END 2016-10-01 19:30 | disposition home or self-care (01) ==
LOC: ENRESERVDT → ENRESERVTM → C.EDB 19:39 → C.2T 09-28 01:19 → C.4E 09-30 20:40
PROVIDERS: ADMIT Internal Medicine; ATTEND Internal Medicine
DX: K92.2 Gastrointestinal hemorrhage, unspecified (principal); K92.0 Hematemesis; I25.5 Ischemic cardiomyopathy; E11.51 Type 2 diabetes mellitus with diabetic peripheral angiopathy without gangrene; I50.32 Chronic diastolic (congestive) heart failure; N18.6 End stage renal disease; I13.2 Hypertensive heart and chronic kidney disease with heart failure and with stage 5 chronic kidney disease, or end stage renal disease; N25.81 Secondary hyperparathyroidism of renal origin; I25.10 Atherosclerotic heart disease of native coronary artery without angina pectoris; E66.01 Morbid (severe) obesity due to excess calories; E78.5 Hyperlipidemia, unspecified; D63.1 Anemia in chronic kidney disease; K21.9 Gastro-esophageal reflux disease without esophagitis; E11.9 Type 2 diabetes mellitus without complications; Z83.3 Family history of diabetes mellitus; Z82.49 Family history of ischemic heart disease and other diseases of the circulatory system; Z79.4 Long term (current) use of insulin; Z87.891 Personal history of nicotine dependence; Z84.1 Family history of disorders of kidney and ureter; Z79.82 Long term (current) use of aspirin; Z99.2 Dependence on renal dialysis; Z79.899 Other long term (current) drug therapy; Z91.19 Patient's noncompliance with other medical treatment and regimen

== ENCOUNTER 2016-10-05 19:50 | Inpatient (IN) | payer OTHER ==
[~2016-10-05] VITALS: Ht 162.6 cm; Wt 110.1 kg
[~2016-10-05 19:50] MED LIST changes: +PRED10TA PO
[2016-10-05] MEDS ORDERED: PROMETHAZINE HCL INJ 6.25 MG in SODIUM CHLORIDE 0.9% 50ML 50 ML IV STA (20:21)
[2016-10-05] MEDS ORDERED: ONDANSETRON INJ 2 MG/ML 2 ML VIAL IV STA (20:21)
[2016-10-05] MEDS ORDERED: SODIUM CHLORIDE 0.9% 250ML 250 ML IV STA (20:21)
[2016-10-05] MEDS ORDERED: PANTOprazole INJ 80 MG in DEXTROSE 5% 100ML 100 ML IV STA (20:21)
[2016-10-05] MEDS ORDERED: MoRPHine SULFATE 4 MG/ML 1 ML CARP\\VIAL IV PRN (20:30)
--- NOTE | 2016-10-05 20:33 | EMERGENCY ROOM VISIT NOTE ---
History Report prepared by Aleksandra: Ej Waldrop Under the Supervision of: Dr. Uriel Muir M.D. First contact with patient: 20:17 Chief Complaint: NAUSEA Stated Complaint: NAUSEA, VOMITING Nursing Triage Summary: arrived via amb to triage with c/o n/v bloody enesis. hx of acis reflux. History of Present Illness The patient is a 50 year old female with acid reflux who presents to the Emergency Room via ambulance with complaints of persistent vomiting beginning three hours prior to arrival. She currently rates her discomfort as a 10/10 in severity. The patient associates nausea, chest pain, burning in the throat, and upper abdominal pain with today's symptoms. She notes her vomiting started without blood and then later, she had blood in the emesis. The chest pain and upper abdominal pain began after the vomiting. The patient states she was discharged from the hospital four days ago for similar symptoms but did not have an endoscopy. She notes she was eating popsicles over the past few days and tried to eat macaroni and cheese with fish sticks and ketchup today. The patient states her symptoms began following this meal. She notes she receives dialysis on Tuesday, Tuesday, and Tuesday but still produces some of her own urine. The patient denies tarry black stool. 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 Review of Systems See HPI for pertinent positives & negatives. A total of 10 systems reviewed and were otherwise negative. Past Medical & Surgical Medical Problems: (1) Allergic rhinitis (2) CAD (coronary artery disease) (3) Carotid stenosis (4) DM type 2 (diabetes mellitus, type 2) (5) Dyslipidemia (6) ESRD (end stage renal disease) on dialysis (7) GERD (gastroesophageal reflux disease) (8) HTN (hypertension) (9) HX OF PAST NONCOMPLIANCE (10) Ischemic cardiomyopathy (11) Morbid obesity (12) Tobacco use disorder (13) UGIB (upper gastrointestinal bleed) Surgical Problems: (1) Hemodialysis access, AV graft Family History Diabetes mellitus FATHER MOTHER Heart disease FATHER MOTHER Hypertension FATHER MOTHER Kidney disease GRANDMOTHER Social History Smoking Status: Former Smoker Alcohol Use: none Housing Status: lives with family Current/Historical Medications Scheduled Aspirin (Aspirin Ec), 81 MG PO DAILY Atorvastatin (Lipitor), 40 MG PO DAILY Calcium Acetate (Phoslo 667 Mg), 1 CAP PO WM Clopidogrel Bisulfate (Plavix), 1 TAB PO DAILY Insulin Glargine (Lantus Solostar), 10 UNITS SC QPM Isosorbide Mononitrate (Isosorbide Mononitrate ER), 60 MG PO QAM Isosorbide Mononitrate Ext Rel (Imdur Ext Rel), 30 MG PO QAM Metoprolol Tartrate (Lopressor), 50 MG PO BID Prednisone Tab (Prednisone), 10 MG PO UD Ranitidine Hcl (Zantac), 300 MG PO HS Sertraline HCl (Sertraline HCl), 2 TAB PO DAILY Scheduled PRN Lorazepam (Ativan), 0.5 MG PO DAILY PRN for Anxiety Methocarbamol (Methocarbamol), 500 MG PO BID PRN for Muscle Spasms Tramadol (Ultram), 1 TAB PO TID PRN for Pain Allergies Coded Allergies: Adhesives (Verified Allergy, Mild, RASH, SORES, 09/21/16) Pollen Extract (Unverified Allergy, Unknown, rash, 09/21/16) Physical Exam Vital Signs Date Time Temp Pulse Resp B/P Pulse Ox O2 Delivery O2 Flow Rate FiO2 10/05/16 22:10 166/102 10/05/16 22:06 83 10/05/16 22:04 190/101 10/05/16 21:45 107 19 224/145 98 Room Air 10/05/16 20:39 Room Air 10/05/16 20:12 36.9 109 20 199/106 100 Room Air Physical Exam GENERAL: Patient is in mild distress secondary to pain. Coffee ground emesis in vomit bag at bed side. HEENT: No acute trauma, normocephalic atraumatic, mucous membranes moist, no nasal congestion, no scleral icterus. NECK: No stridor, no adenopathy, no meningismus, trachea is midline. LUNGS: Clear to auscultation bilaterally, no wheeze, no rhonchi, breath sounds equal. HEART: Without murmurs gallops or rubs, regular rate and rhythm. ABDOMEN: Tenderness in the epigastrium. Soft, bowel sounds positive, no hernias , no peritonitis. EXTREMITIES: No cyanosis or edema, full range of motion of all the joints without pain or difficulty, no signs for acute trauma. NEUROLOGIC: Oriented x 3, no acute motor or sensory deficits, no focal weakness. SKIN: No rash, no jaundice, no diaphoresis. Medical Decision & Procedures ER Provider Diagnostic Interpretation: X-ray results as stated below per interpretation by me and the radiologist: CHEST ONE VIEW PORTABLE CLINICAL HISTORY: GI bleed. COMPARISON STUDY: Chest radiograph September 27, 2016. FINDINGS: No pneumothorax or pleural effusion is present. There is no evidence of pulmonary edema. Mild cardiomegaly is unchanged. No consolidation is identified. There are suspected surgical clips within the left arm. IMPRESSION: 1. No acute findings. 2. Stable cardiomegaly. Electronically signed by: Juan A Mcintosh M.D. 10/05/2016 8:49 PM Laboratory Results 10/05/16 21:20 Red Blood Count 3.98, Mean Corpuscular Volume 95.0, Mean Corpuscular Hemoglobin 31.2, Mean Corpuscular Hemoglobin Concent 32.8, Mean Platelet Volume 10.5, Neutrophils (%) (Auto) 76.5, Lymphocytes (%) (Auto) 13.9, Monocytes (%) (Auto) 8.6, Eosinophils (%) (Auto) 0.4, Basophils (%) (Auto) 0.2, Neutrophils # (Auto) 9.21, Lymphocytes # (Auto) 1.67, Monocytes # (Auto) 1.04, Eosinophils # (Auto) 0.05, Basophils # (Auto) 0.03 10/05/16 21:20 Test 10/05/16 20:50 10/05/16 21:20 10/05/16 22:14 Gastric Fluid pH 3 Gastric Fluid Occult Blood POS (NEG) White Blood Count 12.05 K/uL (4.8-10.8) Red Blood Count 3.98 M/uL (4.2-5.4) Hemoglobin 12.4 g/dL (12.0-16.0) Hematocrit 37.8 % (37-47) Mean Corpuscular Volume 95.0 fL (80-100) Mean Corpuscular Hemoglobin 31.2 pg (25-34) Mean Corpuscular Hemoglobin Concent 32.8 g/dl (32-36) Platelet Count 383 K/uL (130-400) Mean Platelet Volume 10.5 fL (7.4-10.4) Neutrophils (%) (Auto) 76.5 % Lymphocytes (%) (Auto) 13.9 % Monocytes (%) (Auto) 8.6 % Eosinophils (%) (Auto) 0.4 % Basophils (%) (Auto) 0.2 % Neutrophils # (Auto) 9.21 K/uL (1.4-6.5) Lymphocytes # (Auto) 1.67 K/uL (1.2-3.4) Monocytes # (Auto) 1.04 K/uL (0.11-0.59) Eosinophils # (Auto) 0.05 K/uL (0-0.5) Basophils # (Auto) 0.03 K/uL (0-0.2) RDW Standard Deviation 53.0 fL (36.4-46.3) RDW Coefficient of Variation 15.5 % (11.5-14.5) Immature Granulocyte % (Auto) 0.4 % Immature Granulocyte # (Auto) 0.05 K/uL (0.00-0.02) Prothrombin Time 10.7 SECONDS (9.0-12.0) Prothromb Time International Ratio 1.0 (0.9-1.1) Activated Partial Thromboplast Time 24.3 SECONDS (21.0-31.0) Partial Thromboplastin Ratio 0.9 Anion Gap 15.0 mmol/L (3-11) Estimated GFR () 6.4 Estimated GFR (Non- 5.5 BUN/Creatinine Ratio 6.0 (10-20) Calcium Level 9.8 mg/dl (8.5-10.1) Total Bilirubin 0.4 mg/dl (0.2-1) Aspartate Amino Transf (AST/SGOT) 13 U/L (15-37) Alanine Aminotransferase (ALT/SGPT) 14 U/L (12-78) Alkaline Phosphatase 96 U/L (45-117) Total Protein 8.4 gm/dl (6.4-8.2) Albumin 3.2 gm/dl (3.4-5.0) Globulin 5.2 gm/dl (2.5-4.0) Albumin/Globulin Ratio 0.6 (0.9-2) Lipase 172 U/L (73-393) Laboratory results reviewed by me. Medications Administered Medications (Trade) Dose Ordered Sig/Bladimir Route Start Time Stop Time Status Last Admin Dose Admin Ondansetron HCl (Zofran Inj) 4 mg NOW STAT IV 10/05/16 20:21 10/05/16 20:25 DC 10/05/16 21:39 4 MG Morphine Sulfate 4 mg 4 mg Q15M PRN IV 10/05/16 20:30 10/19/16 20:29 10/05/16 21:40 4 MG Promethazine HCl 6.25 mg/Sodium Chloride 50.25 ml @ 204 mls/hr NOW STAT IV 10/05/16 20:21 10/05/16 20:35 DC 10/05/16 21:44 204 MLS/HR Sodium Chloride (Nss 250ml) 250 ml @ 999 mls/hr Q16M STAT IV 10/05/16 20:21 10/05/16 20:36 DC 10/05/16 21:39 999 MLS/HR Labetalol HCl (Normodyne IV) 20 mg NOW STAT IV 10/05/16 21:50 10/05/16 21:51 DC 10/05/16 22:05 20 MG ECG Indication: vomiting Rate (beats per minute): 102 Rhythm: sinus tachycardia Findings: nonspecific-ST abn, no acute ischemic change ED Course 2019: The patient was evaluated in room B3B. A complete history and physical exam was performed. 2020: Ordered Sodium Chloride 250 ml @ 999 mls/hr IV, Promethazine HCl 6.25 mg/ Sodium Chloride 50.25 ml @ 204 mls/hr IV, Pantoprazole Sodium 80 mg/Dextrose 120 ml @ 400 mls/hr IV, Zofran Inj 4 mg IV. 2029: Ordered Morphine Sulfate 4 mg IV. 2149: Ordered Labetalol HCl 20 mg IV. 2214: Reevaluated the patient at this time, and she is feeling somewhat better. 2216: I spoke to Yovani Patel (Hospitalist) about the patient's case, and he will follow the patient for further evaluation. Medical Decision The differential diagnoses include but are not limited to: upper GI bleeding, ulcer, gastritis, Seda-Howard tear, anemia, electrolyte imbalance, esophageal rupture, coagulopathy. There is a mild leukocytosis at 12,000, this is likely consistent with her vomiting and pain. No concerning anemia. Renal panel testing shows renal failure and the need for dialysis. No significant electrolyte abnormality that required correction. There was no hepatitis or coagulopathy. No evidence for pancreatitis. Chest x-ray shows no free air, mediastinal widening or pneumonia. EKG shows a sinus rhythm, there was no acute ischemia. The cardiac troponin was elevated but looking back at previous testing, this appears baseline for the patient. Gastroccult did confirm heme positive vomitus. The patient was aggressively managed. She was vomiting coffee ground material, she was quite hypertensive, she was uncomfortable. The patient received IV Protonix, IV Phenergan, IV Zofran. She was given a small amount of IV saline. She did receive IV labetalol for the elevated blood pressure. With this treatment, she feels improved and is much more comfortable. Her blood pressure is improved. The patient requires admission/observation. She was just in the hospital for a very similar presentation. I did speak with the patient and with case management. The on-call hospitalist was consulted. Consults Time Called: 2208 Consulting Physician: Yovani Patel (Hospitalist) Returned Call: 2216 I spoke to Yovani Patel (Hospitalist) about the patient's case, and he will follow the patient for further evaluation. Impression Primary Impression: Upper GI bleed Additional Impressions: Vomiting HTN (hypertension) Critical Care I have personally spent greater than 30 minutes of critical care time in the direct management of this patient. This includes bedside care, interpretation of diagnostic studies and testing, discussion with consultants, the patient, and family members, and other required patient management activities. This 30 minutes is in excess of all separately billable procedures. Scribe Attestation The scribe's documentation has been prepared under my direction and personally reviewed by me in its entirety. I confirm that the note above accurately reflects all work, treatment, procedures, and medical decision making performed by me. Departure Information Dispostion Being Evaluated By Hospitalist (Yovani Patel (Hospitalist)) Referrals No Doctor, Assigned (PCP) Problem Qualifiers
--- NOTE | 2016-10-05 20:51 | DIAGNOSTIC IMAGING REPORT ---
CHEST ONE VIEW PORTABLE CLINICAL HISTORY: GI bleed. COMPARISON STUDY: Chest radiograph September 27, 2016. FINDINGS: No pneumothorax or pleural effusion is present. There is no evidence of pulmonary edema. Mild cardiomegaly is unchanged. No consolidation is identified. There are suspected surgical clips within the left arm. IMPRESSION: 1. No acute findings. 2. Stable cardiomegaly. Electronically signed by: Juan A Mcintosh M.D. 10/05/2016 8:49 PM Dictated Date/Time: 10/05/2016 8:48 PM
[2016-10-05 21:15] LABS: GASTRIC OCCULT BLOOD POS (NEG); GASTRIC OCCULT BLOOD PH 3
[2016-10-05 21:34] LABS: BASO % 0.2 %; BASO ABS # 0.03 K/uL (0-0.2); COMPLETE YES; EOS % 0.4 %; HEMATOCRIT 37.8 % (37-47); IG% 0.4 %; LYMPH % 13.9 %; LYMPH ABS # 1.67 K/uL (1.2-3.4); MEAN CORPUSCULAR HEMOGLOBIN 31.2 pg (25-34); MEAN CORPUSCULAR HGB CONC 32.8 g/dl (32-36); MEAN PLATELET VOLUME 10.5 fL (7.4-10.4); MONO % 8.6 %; NEUT % 76.5 %; PLATELET COUNT 383 K/uL (130-400); RED BLOOD COUNT 3.98 M/uL (4.2-5.4); WHITE BLOOD COUNT 12.05 K/uL (4.8-10.8)
[2016-10-05 21:47] LABS: PARTIAL THROMBOPLASTIN RATIO 0.9; PROTHROMBIN TIME (PATIENT) 10.7 SECONDS (9.0-12.0)
[2016-10-05] MEDS ORDERED: LABETALOL HCL IV 5 MG/ML 20ML IV STA (21:50)
[2016-10-05 22:05] LABS: ALB/GLOB RATIO 0.6 (0.9-2); ALKALINE PHOSPHATASE 96 U/L (45-117); ALT/SGPT 14 U/L (12-78); AST/SGOT 13 U/L (15-37); BLOOD UREA NITROGEN 48 mg/dl (7-18); CALCIUM 9.8 mg/dl (8.5-10.1); CARBON DIOXIDE 22 mmol/L (21-32); CHLORIDE 96 mmol/L (98-107); GLUCOSE 231 mg/dl (70-99); POTASSIUM 5.1 mmol/L (3.5-5.1); SODIUM 133 mmol/L (136-145)
[2016-10-05] MEDS ORDERED: GLUCOSE 40% GEL 15 GM TUBE PO PRN (23:45)
[2016-10-05] MEDS ORDERED: GLUCAGON FOR INJ 1 MG VIAL SQ PRN (23:45)
[2016-10-05] MEDS ORDERED: DEXTROSE 50% 50 ML SYR IV PRN (23:45)
[2016-10-05] MEDS ORDERED: GLUCOSE 10 TABS/TUBE PO PRN (23:45)
[2016-10-05] MEDS ORDERED: INSULIN GLARGINE SOLOSTAR 100 UNITS/ML 3 ML PEN SC STA (23:47)
[2016-10-06] VITALS (23 sets, daily range): BP systolic 83–182; BP diastolic 40–99; PULSE 51–82; TEMP 36.4–37.1; O2SAT 98–100; Ht 162.6 cm; Wt 110.1 kg
[2016-10-06] MEDS ORDERED: GLUCAGON FOR INJ 1 MG VIAL SQ PRN (00:15)
[2016-10-06] MEDS ORDERED: IV FLUIDS COMPLETED PRN (00:15)
[2016-10-06] MEDS ORDERED: DEXTROSE 50% 50 ML SYR IV PRN (00:15)
[2016-10-06] MEDS ORDERED: HYDROmorphone INJ 0.5 MG/0.5 ML SYR IV PRN (00:15)
[2016-10-06] MEDS ORDERED: GLUCOSE 10 TABS/TUBE PO PRN (00:15)
[2016-10-06] MEDS ORDERED: LORAZEPAM 2 MG/ML 1 ML VIAL IV PRN (00:15)
[2016-10-06] MEDS ORDERED: PROMETHAZINE HCL INJ 12.5 MG in SODIUM CHLORIDE 0.9% 50ML 50 ML IV PRN (00:15)
[2016-10-06] MEDS ORDERED: NITROGLYCERIN 0.4 MG SL PER TAB CHARGE SL PRN (00:15)
[2016-10-06] MEDS ORDERED: GLUCOSE 40% GEL 15 GM TUBE PO PRN (00:15)
[2016-10-06] MEDS ORDERED: METOPROLOL TARTRATE 25 MG TAB PO ONE (01:45)
[2016-10-06] MEDS ORDERED: SODIUM CHLORIDE 0.9% 1000ML 1,000 ML IV SCH (01:45)
[2016-10-06] MEDS: ONDANSETRON INJ 2 MG/ML 2 ML VIAL IV PRN ×2 (03:57→10:43)
[2016-10-06 05:00] LABS: BASO % 0.2 %; BASO ABS # 0.02 K/uL (0-0.2); COMPLETE YES; EOS % 0.5 %; HEMATOCRIT 33.1 % (37-47); IG% 0.4 %; LYMPH % 15.2 %; LYMPH ABS # 1.95 K/uL (1.2-3.4); MEAN CELL VOLUME 93.5 fL (80-100); MEAN CORPUSCULAR HEMOGLOBIN 30.2 pg (25-34); MEAN CORPUSCULAR HGB CONC 32.3 g/dl (32-36); MEAN PLATELET VOLUME 10.1 fL (7.4-10.4); MONO % 8.3 %; NEUT % 75.4 %; PLATELET COUNT 350 K/uL (130-400); RED BLOOD COUNT 3.54 M/uL (4.2-5.4); WHITE BLOOD COUNT 12.87 K/uL (4.8-10.8)
[2016-10-06] MEDS ORDERED: COUGH DROP (SUGAR FREE) LOZ 24 LOZ/1 BOX PO PRN (05:15)
[2016-10-06 05:41] LABS: BUN/CREATININE RATIO 6.3 (10-20); CALCIUM 8.8 mg/dl (8.5-10.1); CREATININE 8.2 mg/dl (0.60-1.20); POTASSIUM 5.4 mmol/L (3.5-5.1)
[2016-10-06 06:25] LABS: ESTIMATED AVERAGE GLUCOSE 157 mg/dl; HA1C FLAG Normal (Normal)
[2016-10-06] MEDS: INSULIN ASPART 100 UNITS/ML 3 ML PEN SC SCH ×4 (07:00→21:00)
--- NOTE | 2016-10-06 07:15 | DIAGNOSTIC IMAGING REPORT ---
ULTRASOUND RIGHT UPPER QUADRANT ABDOMEN CLINICAL HISTORY: Right upper quadrant abdominal pain. COMPARISON STUDY: Abdominal ultrasound dated 09/28/16 and correlated with abdominal CT dated 09/27/16. TECHNIQUE: Real-time, grayscale, and color flow sonography of the right upper quadrant of the abdomen was performed. Images are reviewed in the transverse and longitudinal planes. FINDINGS: Liver: The liver is normal in size and echotexture. There is no intrahepatic biliary ductal dilatation. The main portal vein is patent. Gallbladder: The gallbladder is mildly distended. The gallbladder wall is top normal to slightly thickened measuring up to 4 mm. Minimal sludge is noted. No shadowing gallstones are identified. There is no pericholecystic fluid. A sonographic Monroy's sign is reportedly absent. The common bile duct measures up to 0.4 cm in diameter. Pancreas: Visualized portions of the pancreatic head and body are normal in appearance. The splenic vein is patent. Right kidney: Survey images of the right kidney demonstrate cortical atrophy. There is no hydronephrosis. Ascites: None. IMPRESSION: 1. The gallbladder is mildly distended and there is trace sludge. There is minimal nonspecific bladder wall thickening. No shadowing gallstones are identified and there is no convincing sonographic evidence of acute cholecystitis. These findings are unchanged from the study performed 8 days previously. If there is strong clinical concern for acute cholecystitis then a nuclear hepatobiliary scan would be appropriate. 2. Atrophic right kidney. Electronically signed by: Uriel Thomson M.D. 10/06/2016 7:14 AM Dictated Date/Time: 10/06/2016 7:11 AM
--- NOTE | 2016-10-06 08:18 | HISTORY & PHYSICAL EXAMINATION ---
DATE OF ADMISSION: 10/05/2016 PRIMARY CARE PHYSICIAN: Dr. Becerra. CHIEF COMPLAINT: Hematemesis. HISTORY OF PRESENT ILLNESS: Medical history significant for chronic diastolic heart failure, EF 65%, CAD status post stenting, past tobacco abuse, DM2 insulin requiring, end-stage renal disease on hemodialysis, chronic anemia, baseline hemoglobin 10- 11, GERD as per records. Recent confinement last week for hematemesis. As per records, patient refused EGD. No endoscopy done as hemoglobin stable and GI bleed resolved. Patient subsequently discharged. Patient also discharged on prednisone taper for right hand pain, possible gout. Yesterday, patient had epigastric discomfort, achy going to her chest. with some shortness of breath. Patient subsequently had bloody emesis. Denies black/bloody stools. At the Emergency Room, the patient received Protonix bolus for GI bleed. MEDICAL HISTORY: As above. Hemodialysis Tuesday, Tuesday, Tuesday. SURGERIES: Vascular procedures. HOME MEDICATIONS: Include aspirin, Lipitor, Plavix, PhosLo, Lantus, Imdur ER, isosorbide mononitrate, Ativan, Lopressor, Zantac, sertraline, tramadol. ALLERGIES: ADHESIVE, POLLEN EXTRACT. FAMILY HISTORY: There is a family history of heart disease, diabetes. PERSONAL AND SOCIAL HISTORY: Past tobacco abuse. No chronic ETOH intake. Disabled. REVIEW OF SYSTEMS: As per HPI. all other ROS negative. PHYSICAL EXAMINATION: VITAL SIGNS: Blood pressure was noted to be initially SBP 220s later 178/106, pulse rate 79, RR 19, sats 102 liters. GENERAL: Noted to obese, chronically ill. No respiratory distress. SKIN: Sallow. HEENT: Pale palpebral conjunctivae. dry buccal mucosa NECK: Short neck. LUNGS: Decreased breath sounds. HEART: Regular rate and rhythm. ABDOMEN: Epigastric tenderness. EXTREMITIES: Minimal LE edema. minimal R hand edema w/ dressing NEUROLOGIC: No gross focality. LABS: Hemoglobin was noted to be 12.4, hematocrit 37.1, white cell count was noted to be 12, platelets 389. Sodium 135, potassium 5.1, chloride 96, CO2 22, BUN 48, creatinine 7.8, glucose was noted to be 231. Troponin 0.444. EKG rate 105, sinus tachycardia, nonspecific T-wave abnormalities in the inferior leads. Chest x-ray showed stable cardiomegaly. Gallbladder ultrasound initial read cholelithiasis, no jasmin cholecystitis. Hemoglobin A1c was 7.4 last June 2016. ASSESSMENT: 1. Recurrent upper gastrointestinal bleeding. possible etiologies include ; esophagitis, gastritis, MWT, PUD, tumor hemodynamically stable. 2. hx chronic diastolic HF, px on the dry side 3. hx CAD sp stenting 4. troponinemia secondary to hypertensive urgency secondary to illness, CKD 5. DM2 insulin requiring, reasonable control of recent HgA1c. elevated likely 2 to stress and outpx steroid course. 6. ESRD on HD 7. Rt hand pain (possible gout as per records of recent confinement), improved on outpx steroid treatment. 8. Past tobacco abuse PLAN: Observation PCU. ff HH, transfuse PRBC if less than 8. (hx CAD) appropriate to hold home ASA, Plavix for now IV PPI. GI consult RE recurrent UGIB. Patient amenable to endoscopy if necessary Facilitate home blood pressure meds and analgesia. ff trops Nephrology consult RE dialysis management basal insulin, ISS BG goal 140-180. DVT prophylaxis, SCDs. RE GI bleed. Full code. MTDD
[2016-10-06] MEDS ORDERED: METOPROLOL TARTRATE 25 MG TAB PO SCH ×2 (09:00)
[2016-10-06] MEDS ORDERED: SERTRALINE HCL 100 MG TAB PO SCH (09:00)
[2016-10-06] MEDS ORDERED: EPOETIN ALFA 10,000 UNITS/ML VIAL IV. SCH (09:00)
[2016-10-06 09:23] LABS: CKMB/CK RATIO 11.1 (0-3.0)
[2016-10-06] MEDS: CALCIUM ACETATE 667MG GELCAP PO SCH ×3 (09:50→16:45)
[2016-10-06] MEDS: PANTOprazole INJ 80 MG in SYRINGE 0 ML IV SCH ×2 (09:51→22:00)
[2016-10-06] MEDS: ISOSORBIDE MONONITRATE 30 MG TABCR PO SCH (09:51)
[2016-10-06] MEDS: ATORVASTATIN 40 MG TAB PO SCH (09:52)
[2016-10-06] MEDS: ISOSORBIDE MONONITRATE 60 MG TABCR PO SCH (09:52)
[2016-10-06] MEDS: METOPROLOL TARTRATE 25 MG TAB PO SCH ×2 (09:53→21:58)
[2016-10-06] MEDS: INSULIN GLARGINE SOLOSTAR 100 UNITS/ML 3 ML PEN SC SCH ×2 (09:56→22:03)
[2016-10-06 10:09] LABS: MAGNESIUM 2.4 mg/dl (1.8-2.4)
--- NOTE | 2016-10-06 10:21 | NEPHROLOGY CONSULTATION ---
DATE OF CONSULTATION: 10/06/2016 ATTENDING OF RECORD: Dr. Patel. REASON FOR CONSULTATION: ESRD. This is a 50-year-old female who dialyzes Mondays, Wednesdays, and Fridays at the [facility], last dialysis treatment was Tuesday. The patient was recently discharged on Tuesday with resolving nausea, vomiting, abdominal pain. The patient was feeling better. Tolerated dialysis well on Tuesday. The patient was technically 7 kilos above her dry weight on Tuesday and we managed to get off 5.5 kilos without difficulty on Tuesday. Tuesday morning, the patient was feeling very good, ate well; however, Tuesday night with dinner the patient had some ketchup, which she states causes her belly to feel uncomfortable and then started having nausea and vomiting which would not improve. The patient had bloody vomitus and is currently comfortable on IV fluids. Currently n.p.o. PAST MEDICAL HISTORY: End-stage renal disease, diastolic heart failure, type 2 diabetes, anemia of renal failure, GERD, coronary artery disease with history of a bare metal stents. PAST SURGICAL HISTORY: AV fistula placement, bare metal stent to the heart, tunneled dialysis catheter placements. SOCIAL HISTORY: Former smoker, no alcohol, no drugs. and lives alone. FAMILY HISTORY: Significant for diabetes in both parents. REVIEW OF SYSTEMS: Positive nausea, vomiting. No shortness of breath. No chest pain. Decreased appetite. No blurry vision. No headaches. No rash. No itching. All other review of systems otherwise negative. MEDS: REVIEWED PHYSICAL EXAMINATION: VITAL SIGNS: Temperature 36.4, pulse 62, respiratory rate 18, blood pressure 160/93, satting 100% on 2 liters. GENERAL: Awake, alert, oriented x3, obese. EYES: No scleral icterus. ENT: Moist mucous membranes. NECK: Supple. PULMONARY: Clear to auscultation. CARDIAC: Regular rate and rhythm. ABDOMEN: Bowel sounds positive, mild tenderness diffusely, nondistended. EXTREMITIES: No significant clubbing, cyanosis or edema. NEUROLOGICALLY: Nonfocal. DERMATOLOGIC: No rash or ulcers noted. LABORATORIES: White count is 12, H\T\H 10.7 and 33.1, platelet count is 350. Sodium level is 135, potassium 5.4, chloride is 99, bicarbonate is 27, BUN is 51, creatinine is 8.2, glucose 159. Lactic acid was elevated at 2.3 and was 2.2 this morning. Troponin of 1.840 and trending up. Calcium is 8.8. INR is 1. Gallbladder ultrasound shows gallbladder mildly distended, trace sludge, minimal nonspecific bladder wall thickening, atrophic right kidney. Chest x-ray shows no acute findings. Stable cardiomegaly. IMPRESSION: 1. End-stage renal disease: Plan on dialysis today with no fluid removal. The patient's blood pressures are good and patient is technically still several kilos above her dry weight. Will stop the IV fluids for now. However, no fluid removal currently on dialysis. 2. Anemia of renal failure: Hemoglobin levels are at the 10.7 range and will continue Procrit on dialysis. 3. Renal osteodystrophy: The patient is on PhosLo 1 p.o. t.i.d. with meals; however, not eating well at this point. 4. Cardiac: The patient's troponin is trending up and appears to be having a non-STEMI event with elevated lactic acid as well. Defer to primary hospitalist, as well as Cardiology. Appreciate consultation. BALTAZAR
--- NOTE | 2016-10-06 11:27 | Gastrointestinal Consultation ---
Gastrointestinal Consultation Date of Consultation: Oct 06, 2016 Attending Physician: Dr. Li Consulting Physician: Dr. Higuera Reason for Consultation: UGI bleed History of Present Illness Patient is a 50 year old female with CAD s/p stent, ESRD on HD MWF, DM2, hyperlipidemia, ischemic cardiomyopathy, obesity, GERD and HTN who presents with repeated episodes of N/V (approx 20 times) since yesterday after she ate her luch meal consisting of 6 fish sticks and macaroni and cheese. Pt developed abdominal cramping, took a nap and it resolved initially, only to return later in the evening with epigastric and RUQ pain and vomiting. ER notes gastroccult heme +. Pt describes some brown/bilious emesis no jasmin BRB. Pt denies long hx of heartburn or GERD sx. She's on ASA 81mg but tells me she 's not currently taking Plavix. Also on short course of prednisone for gout. Pt evaluated last week for similar sx after she ate a 6 inch sub, sx thought to be secondary to biliary colic, she did not undergo EGD last admission. US at that time showed sludge and mild gb wall thickening. US repeated this admission shows a mildly distended gb with wall thickening and sludge, no duct dilation. Pt notes bowels are at baseline, she denies other GI c/o. Pt still c/o pain this am but no further vomiting. Pt on ice chips, asking for something to eat. Hgb at 10.7 currently which is her baseline. WBC mildly elevated but she has also been on prednisone. Past Medical/Surgical History Medical Problems: (1) Abdominal pain Status: Acute (2) Acute electrocardiogram changes Status: Acute (3) Elevated troponin Status: Acute (4) Elevated troponin Status: Acute (5) End stage renal disease Status: Acute (6) GI bleed Status: Acute (7) HTN (hypertension) Status: Chronic (8) Hyperkalemia Status: Acute (9) Joint effusion Status: Acute (10) Left elbow pain Status: Acute (11) Left sided chest pain Status: Acute (12) Left sided chest pain Status: Acute (13) Limb ischemia Status: Acute (14) Medical non-compliance Status: Acute (15) Pneumonia Status: Acute (16) Pulmonary edema Status: Acute (17) Renal failure Status: Acute (18) Sinusitis Status: Acute (19) Substernal chest pain Status: Acute (20) Upper abdominal pain Status: Acute (21) Upper GI bleed Status: Acute (22) Urinary tract infection Status: Acute (23) Vomiting Status: Acute (24) Vomiting Status: Acute (25) Vomiting Status: Acute (26) Vomiting Status: Acute Past Medical History: CAD hx HI with stent 2015 ESRD on HD MWF DM 2 hyperlipidemia obesity HTN GERD Past Surgical History: cardiac stent placement dialysis AV graft placement Family History Diabetes mellitus FATHER MOTHER Heart disease FATHER MOTHER Hypertension FATHER MOTHER Kidney disease GRANDMOTHER father from pancreatic cancer Social History Smoking Status: Former Smoker Alcohol Use: none Housing Status: lives with family Allergies Coded Allergies: Adhesives (Verified Allergy, Mild, RASH, SORES, 09/21/16) Pollen Extract (Unverified Allergy, Unknown, rash, 09/21/16) Current Medications Home Meds and Scripts Medications Dose Route/Sig Max Daily Dose Days Date Category Dose Instructions Prednisone 10 Mg Tab 10 Mg PO UD 7 10/01/16 Rx 2 po daily for 3 days and then 1 po daily for 4 Sertraline HCl 50 Mg Tab 2 Tab PO DAILY 30 09/14/16 Reported Phoslo 667 Mg (Calcium Acetate) 667 Mg Cap 1 Cap PO WM 09/14/16 Reported Lipitor (Atorvastatin) 20 Mg Tab 40 Mg PO DAILY 09/14/16 Reported Lopressor (Metoprolol Tartrate) 25 Mg Tab 50 Mg PO BID 09/14/16 Reported Plavix (Clopidogrel Bisulfate) 75 Mg Tab 1 Tab PO DAILY 90 09/14/16 Reported Isosorbide Mononitrate ER (Isosorbide Mononitrate) 30 Mg Tabcr 60 Mg PO QAM 09/14/16 Reported Imdur Ext Rel (Isosorbide Mononitrate) 30 Mg Ertab 30 Mg PO QAM 09/14/16 Reported Lantus Solostar (Insulin Glargine) 100 Unit/Ml Inj 10 Units SC QPM 09/14/16 Reported Ativan (Lorazepam) 1 Mg Tab 0.5 Mg PO DAILY PRN 09/14/16 Reported Zantac (Ranitidine HCl) 150 Mg Tab 300 Mg PO HS 09/14/16 Reported Methocarbamol 500 Mg Tab 500 Mg PO BID PRN 09/14/16 Reported Ultram (Tramadol HCl) 50 Mg Tab 1 Tab PO TID PRN 30 09/14/16 Reported Aspirin Ec (Aspirin) 81 Mg Tab 81 Mg PO DAILY 04/06/16 Reported Review of Systems Constitutional: No chills, No fever Eyes: No problem reported ENT: No problem reported Respiratory: No problem reported Cardiac: No chest pain Abdomen: + see HPI Musculoskeletal: No problem reported Female : + problem reported (ESRD on HD) Neuro: No problem reported Psych: No depression symptoms Heme: No abnormal bleeding/bruising Endo: No problem reported Skin: No rash Physical Exam Date Time Temp Pulse Resp B/P Pulse Ox O2 Delivery O2 Flow Rate FiO2 10/06/16 08:00 36.4 62 18 160/93 100 Nasal Cannula 2.0 10/06/16 08:00 100 Nasal Cannula 2.0 10/06/16 04:00 37.0 72 16 149/82 100 Nasal Cannula 2.0 10/06/16 04:00 100 Nasal Cannula 2.0 10/06/16 01:48 36.5 82 18 182/99 100 Nasal Cannula 1.5 10/06/16 00:53 64 19 150/88 100 Nasal Cannula 2.0 10/06/16 00:25 79 19 178/106 91 10/05/16 22:10 166/102 10/05/16 22:06 83 10/05/16 22:04 190/101 10/05/16 21:45 107 19 224/145 98 Room Air 10/05/16 20:39 Room Air 10/05/16 20:12 36.9 109 20 199/106 100 Room Air General Appearance: no apparent distress, + obese Eyes: PERRL ENT: normal ENT inspection, hearing grossly normal Neck: supple Respiratory/Chest: lungs clear, normal breath sounds, no respiratory distress Cardiovascular: regular rate, rhythm Abdomen: normal bowel sounds, soft, + tenderness (epigastric and RUQ tenderness to palpation, no rebound or guarding, no other tenderness noted) Extremities: non-tender Neurologic/Psych: alert, normal mood/affect, oriented x 3 Skin: normal color Laboratory Results Last 24 Hours Test 10/05/16 20:50 10/05/16 21:20 10/05/16 22:38 10/06/16 00:23 Gastric Fluid pH 3 Gastric Fluid Occult Blood POS White Blood Count 12.05 K/uL Red Blood Count 3.98 M/uL Hemoglobin 12.4 g/dL Hematocrit 37.8 % Mean Corpuscular Volume 95.0 fL Mean Corpuscular Hemoglobin 31.2 pg Mean Corpuscular Hemoglobin Concent 32.8 g/dl Platelet Count 383 K/uL Mean Platelet Volume 10.5 fL Neutrophils (%) (Auto) 76.5 % Lymphocytes (%) (Auto) 13.9 % Monocytes (%) (Auto) 8.6 % Eosinophils (%) (Auto) 0.4 % Basophils (%) (Auto) 0.2 % Neutrophils # (Auto) 9.21 K/uL Lymphocytes # (Auto) 1.67 K/uL Monocytes # (Auto) 1.04 K/uL Eosinophils # (Auto) 0.05 K/uL Basophils # (Auto) 0.03 K/uL RDW Standard Deviation 53.0 fL RDW Coefficient of Variation 15.5 % Immature Granulocyte % (Auto) 0.4 % Immature Granulocyte # (Auto) 0.05 K/uL Prothrombin Time 10.7 SECONDS Prothromb Time International Ratio 1.0 Activated Partial Thromboplast Time 24.3 SECONDS Partial Thromboplastin Ratio 0.9 Sodium Level 133 mmol/L Potassium Level 5.1 mmol/L Chloride Level 96 mmol/L Carbon Dioxide Level 22 mmol/L Anion Gap 15.0 mmol/L Blood Urea Nitrogen 48 mg/dl Creatinine 7.80 mg/dl Estimated GFR () 6.4 Estimated GFR (Non- 5.5 BUN/Creatinine Ratio 6.0 Random Glucose 231 mg/dl Estimated Average Glucose 157 mg/dl Hemoglobin A1c 7.1 % Calcium Level 9.8 mg/dl Total Bilirubin 0.4 mg/dl Aspartate Amino Transf (AST/SGOT) 13 U/L Alanine Aminotransferase (ALT/SGPT) 14 U/L Alkaline Phosphatase 96 U/L Troponin I 0.433 ng/ml Total Protein 8.4 gm/dl Albumin 3.2 gm/dl Globulin 5.2 gm/dl Albumin/Globulin Ratio 0.6 Lipase 172 U/L Lactic Acid Level 2.3 mmol/L Bedside Glucose 231 mg/dl Test 10/06/16 04:48 10/06/16 10:48 White Blood Count 12.87 K/uL Red Blood Count 3.54 M/uL Hemoglobin 10.7 g/dL Hematocrit 33.1 % Mean Corpuscular Volume 93.5 fL Mean Corpuscular Hemoglobin 30.2 pg Mean Corpuscular Hemoglobin Concent 32.3 g/dl Platelet Count 350 K/uL Mean Platelet Volume 10.1 fL Neutrophils (%) (Auto) 75.4 % Lymphocytes (%) (Auto) 15.2 % Monocytes (%) (Auto) 8.3 % Eosinophils (%) (Auto) 0.5 % Basophils (%) (Auto) 0.2 % Neutrophils # (Auto) 9.72 K/uL Lymphocytes # (Auto) 1.95 K/uL Monocytes # (Auto) 1.07 K/uL Eosinophils # (Auto) 0.06 K/uL Basophils # (Auto) 0.02 K/uL RDW Standard Deviation 53.2 fL RDW Coefficient of Variation 15.6 % Immature Granulocyte % (Auto) 0.4 % Immature Granulocyte # (Auto) 0.05 K/uL Sodium Level 135 mmol/L Potassium Level 5.4 mmol/L Chloride Level 99 mmol/L Carbon Dioxide Level 27 mmol/L Anion Gap 9.0 mmol/L Blood Urea Nitrogen 51 mg/dl Creatinine 8.20 mg/dl Est Creatinine Clear Calc Drug Dose 10.0 ml/min Estimated GFR () 6.0 Estimated GFR (Non- 5.2 BUN/Creatinine Ratio 6.3 Random Glucose 159 mg/dl Lactic Acid Level 2.2 mmol/L Calcium Level 8.8 mg/dl Magnesium Level 2.4 mg/dl Total Creatine Kinase 81 U/L Creatine Kinase MB 9.0 ng/ml Creatine Kinase MB Ratio 11.1 Troponin I 1.840 ng/ml Bedside Glucose 98 mg/dl Impression Patient is a 50 year old female with recurrent emesis after eating macaroni and cheese and fish sticks Plan Ddx: PUD, biliary colic, gastroparesis, gastritis Hgb and BUN/Creat. at baseline continue PPI - may convert to IV daily or BID after drip complete Pt on ASA and short course of prednisone - agrees to EGD to r/o PUD as a cause of her sx. given her hx, suspect this is secondary to gallbladder disease and she may require surgical evaluation to consider cholecystectomy. Meanwhile, encouraged to eat bland, low fat diet. Pt may have clears-low residue diet as tolerated today EGD tomorrow - additional recommendations after EGD. ATTESTATION: I have performed a history and physical examination of this patient and reviewed the electronic record. Specifically, on physical examination there is no tenderness presently. I have discussed the case with Li Scruggs PA-C. The above note reflects my findings, conclusions, and recommendations. Timothy Higuera MD
--- NOTE | 2016-10-06 11:51 | Progress Note ---
Medicine Progress Note Date & Time of Visit: Oct 06, 2016 at 11:40. Subjective patient seen resting in bed states she had nausea with her pills and water this morning no recurrence of hematemesis, no BM today has occasional epigastric sharp pain denies chest pain, dyspnea, palpitations, dizziness no other symptoms Objective Last 8 Hrs Date Time Temp Pulse Resp B/P Pulse Ox O2 Delivery O2 Flow Rate FiO2 10/06/16 08:00 36.4 62 18 160/93 100 Nasal Cannula 2.0 10/06/16 08:00 100 Nasal Cannula 2.0 10/06/16 04:00 37.0 72 16 149/82 100 Nasal Cannula 2.0 10/06/16 04:00 100 Nasal Cannula 2.0 Physical Exam: General- oriented x 3, not in distress Head- atraumatic Eyes- PERRL, EOMI, anicteric ENT- oropharynx clear Neck- supple, no JVD, no adenopathy, no thyromegaly Lungs- clear to auscultation b/l Heart- normal rate, regular rhythm; no murmurs Abdomen- normal bowel sounds, soft, nontender Extremities- no pretibial edema, no calf tenderness Neuro- alert, oriented x 3;no gross focal deficits Skin- warm & dry Laboratory Results: Last 24 Hours Test 10/05/16 20:50 10/05/16 21:20 10/05/16 22:38 10/06/16 00:23 Gastric Fluid pH 3 Gastric Fluid Occult Blood POS White Blood Count 12.05 K/uL Red Blood Count 3.98 M/uL Hemoglobin 12.4 g/dL Hematocrit 37.8 % Mean Corpuscular Volume 95.0 fL Mean Corpuscular Hemoglobin 31.2 pg Mean Corpuscular Hemoglobin Concent 32.8 g/dl Platelet Count 383 K/uL Mean Platelet Volume 10.5 fL Neutrophils (%) (Auto) 76.5 % Lymphocytes (%) (Auto) 13.9 % Monocytes (%) (Auto) 8.6 % Eosinophils (%) (Auto) 0.4 % Basophils (%) (Auto) 0.2 % Neutrophils # (Auto) 9.21 K/uL Lymphocytes # (Auto) 1.67 K/uL Monocytes # (Auto) 1.04 K/uL Eosinophils # (Auto) 0.05 K/uL Basophils # (Auto) 0.03 K/uL RDW Standard Deviation 53.0 fL RDW Coefficient of Variation 15.5 % Immature Granulocyte % (Auto) 0.4 % Immature Granulocyte # (Auto) 0.05 K/uL Prothrombin Time 10.7 SECONDS Prothromb Time International Ratio 1.0 Activated Partial Thromboplast Time 24.3 SECONDS Partial Thromboplastin Ratio 0.9 Sodium Level 133 mmol/L Potassium Level 5.1 mmol/L Chloride Level 96 mmol/L Carbon Dioxide Level 22 mmol/L Anion Gap 15.0 mmol/L Blood Urea Nitrogen 48 mg/dl Creatinine 7.80 mg/dl Estimated GFR () 6.4 Estimated GFR (Non- 5.5 BUN/Creatinine Ratio 6.0 Random Glucose 231 mg/dl Estimated Average Glucose 157 mg/dl Hemoglobin A1c 7.1 % Calcium Level 9.8 mg/dl Total Bilirubin 0.4 mg/dl Aspartate Amino Transf (AST/SGOT) 13 U/L Alanine Aminotransferase (ALT/SGPT) 14 U/L Alkaline Phosphatase 96 U/L Troponin I 0.433 ng/ml Total Protein 8.4 gm/dl Albumin 3.2 gm/dl Globulin 5.2 gm/dl Albumin/Globulin Ratio 0.6 Lipase 172 U/L Lactic Acid Level 2.3 mmol/L Bedside Glucose 231 mg/dl Test 10/06/16 04:48 10/06/16 10:48 White Blood Count 12.87 K/uL Red Blood Count 3.54 M/uL Hemoglobin 10.7 g/dL Hematocrit 33.1 % Mean Corpuscular Volume 93.5 fL Mean Corpuscular Hemoglobin 30.2 pg Mean Corpuscular Hemoglobin Concent 32.3 g/dl Platelet Count 350 K/uL Mean Platelet Volume 10.1 fL Neutrophils (%) (Auto) 75.4 % Lymphocytes (%) (Auto) 15.2 % Monocytes (%) (Auto) 8.3 % Eosinophils (%) (Auto) 0.5 % Basophils (%) (Auto) 0.2 % Neutrophils # (Auto) 9.72 K/uL Lymphocytes # (Auto) 1.95 K/uL Monocytes # (Auto) 1.07 K/uL Eosinophils # (Auto) 0.06 K/uL Basophils # (Auto) 0.02 K/uL RDW Standard Deviation 53.2 fL RDW Coefficient of Variation 15.6 % Immature Granulocyte % (Auto) 0.4 % Immature Granulocyte # (Auto) 0.05 K/uL Sodium Level 135 mmol/L Potassium Level 5.4 mmol/L Chloride Level 99 mmol/L Carbon Dioxide Level 27 mmol/L Anion Gap 9.0 mmol/L Blood Urea Nitrogen 51 mg/dl Creatinine 8.20 mg/dl Est Creatinine Clear Calc Drug Dose 10.0 ml/min Estimated GFR () 6.0 Estimated GFR (Non- 5.2 BUN/Creatinine Ratio 6.3 Random Glucose 159 mg/dl Lactic Acid Level 2.2 mmol/L Calcium Level 8.8 mg/dl Magnesium Level 2.4 mg/dl Total Creatine Kinase 81 U/L Creatine Kinase MB 9.0 ng/ml Creatine Kinase MB Ratio 11.1 Troponin I 1.840 ng/ml Bedside Glucose 98 mg/dl Date/Time Source Procedure Growth Status 10/05/16 22:38 Blood Blood Culture Pending Received 10/05/16 22:30 Blood Blood Culture Pending Received 10/06/16 00:00 Nasal MRSA DNA Surveillance Screen - Final Specimen Negative for MRSA by DNA Probe Complete Assessment & Plan 50 year old female with history of CHF Diastolic type, CAD s/p Stent, DM 2, ESRD presenting with hematemesis. HEMATEMESIS, R/O UPPER GI BLEED - no recurrence so far - Hg 10.7 repeat Hg today - continue Protonix 20mg BID clears today EGD tomorrow GI on board - hold Aspirin,Plavix ELEVATED CARDIAC MARKERS HISTORY OF CAD, STENT - no cardiac symptoms, but levels higher than baseline - EKG no signs of acute ischemia - Cardiology consulted - Aspirin, Plavix on hold continue Imdur, Metoprolol ELEVATED LACTIC ACID - re check at noon CHF DIASTOLIC TYPE euvolemic DM 2 decrease Lantus ISS ESRD Dr. Prakash consulted for HD DVT prophylaxis SCDS Disposition pending Current Inpatient Medications: Current Inpatient Medications Medications (Trade) Dose Ordered Sig/Bladimir Route Start Time Stop Time Status Last Admin Dose Admin Insulin Glargine (Lantus Solostar Pen) 5 unit BID SC 10/06/16 09:00 10/06/16 09:56 5 UNIT Glucose (Glucose 40% Gel) 15-30 GRAMS 15 GRAMS... UD PRN PO 10/05/16 23:45 11/04/16 23:44 Glucose (Glucose Chew Tab) 4-8 Tablets 4 Tabl... UD PRN PO 10/05/16 23:45 11/04/16 23:44 Dextrose (Dextrose 50% 50ML Syringe) 25-50ML OF 50% DW IV FOR... UD PRN IV 10/05/16 23:45 11/04/16 23:44 Glucagon (Glucagon Inj) 1 mg UD PRN SQ 10/05/16 23:45 11/04/16 23:44 Hydromorphone HCl (Dilaudid Inj) 0.5 mg Q3H PRN IV 10/06/16 00:15 10/20/16 00:14 10/06/16 00:20 0.5 MG Ondansetron HCl 4 mg 4 mg Q6H PRN IV 10/06/16 00:15 11/05/16 00:14 10/06/16 10:43 4 MG Promethazine HCl/ Sodium Chloride (Phenergan Inj/ Nss 50ml) 50.5 ml @ 204 mls/hr Q6H PRN IV 10/06/16 00:15 11/05/16 00:14 Lorazepam (Ativan Inj) 0.5 mg Q4H PRN IV 10/06/16 00:15 11/05/16 00:14 Miscellaneous (Iv Fluids Completed) 1 ea PRN PRN N/A 10/06/16 00:15 10/06/17 00:14 Acetaminophen (Tylenol Tab) 650 mg Q4H PRN PO 10/06/16 00:15 11/05/16 00:14 Nitroglycerin (Nitrostat Tab) 0.4 mg UD PRN SL 10/06/16 00:15 11/05/16 00:14 Insulin Aspart (novoLOG ASPART) SLIDING SCALE If C... ACHS SC 10/06/16 07:00 11/05/16 06:59 Atorvastatin Calcium (Lipitor Tab) 40 mg DAILY PO 10/06/16 09:00 11/05/16 08:59 10/06/16 09:52 40 MG Calcium Acetate (Phoslo Cap) 667 mg TIDM PO 10/06/16 07:30 11/05/16 07:29 10/06/16 10:48 667 MG Isosorbide Mononitrate (Imdur Ext Rel Tab) 60 mg QAM PO 10/06/16 09:00 11/05/16 08:59 10/06/16 09:52 60 MG Isosorbide Mononitrate (Imdur Ext Rel Tab) 30 mg QAM PO 10/06/16 09:00 11/05/16 08:59 10/06/16 09:51 30 MG Prednisone (PredniSONE TAB) 10 mg DAILY PO 10/06/16 09:00 10/08/16 09:01 10/06/16 09:53 10 MG Sertraline HCl (Zoloft Tab) 100 mg DAILY PO 10/06/16 09:00 11/05/16 08:59 10/06/16 09:54 100 MG Tramadol HCl not relieved by tylenol @ Q6H PRN PO 10/06/16 00:15 11/05/16 00:14 Pantoprazole Sodium/Syringe (Protonix Inj/ Syringe) 20 ml @ 5 mls/min BID@0900,2100 IV 10/06/16 09:00 11/05/16 08:59 10/06/16 09:51 5 MLS/MIN Metoprolol Tartrate (Lopressor Tab) 50 mg BID PO 10/06/16 09:00 11/05/16 08:59 10/06/16 09:53 50 MG Menthol (Nice Lucinda) 1 lucinda PRN PRN PO 10/06/16 05:15 11/05/16 05:14 Epoetin Christopher (Procrit Inj) 10,000 units 0900 IV. 10/06/16 09:00 10/06/16 17:00
[2016-10-06 12:29] LABS: HEMATOCRIT 32.1 % (37-47)
--- NOTE | 2016-10-06 13:01 | Cardiology Consultation ---
Cardiology Consultation Date of Consultation: Oct 06, 2016. Requesting Physician: Dr. Li Reason for Consultation: Chest pain, elevated troponin Pt evaluation today including: conversation w/ patient, physical exam, lab review, review of studies, review of inpatient medication list History of Present Illness This is a 50-year-old patient with diabetes mellitus, end-stage renal disease on hemodialysis, hypertension and hypercholesterolemia, followed by Dr. Venegas for her coronary artery disease, who presented with recurrent upper GI bleeding. She also has peripheral artery disease and carotid disease. Her cardiac history is notable for a bare metal stent to her obtuse marginal in March 2016 at which time she had an occluded right coronary artery as well. She was admitted about 2 weeks ago with an upper GI bleed but refused endoscopy at that time. She now returns with ongoing hematemesis. She also describes some chest discomfort, she describes it as a sharp sensation which occurred while she was vomiting followed by a dull sensation lasting an hour or 2 afterwards. She has not been having exertional symptoms, does not have shortness of breath or palpitations. Of note it is not clear that she had angina prior to the documentation of her coronary artery disease. Her troponin has risen this admission (as it had last, although they are higher this time at 1.8 so far). Past Medical/Surgical History Past medical history: Diabetes mellitus Hypertension Hypercholesterolemia Coronary artery disease Chronic kidney disease on dialysis Peripheral vascular disease Cerebrovascular disease Family History Diabetes mellitus FATHER MOTHER Heart disease FATHER MOTHER Hypertension FATHER MOTHER Kidney disease GRANDMOTHER Social History Smoking Status: Former Smoker History of Alcohol Use: No Review of Systems Constitutional: No fever, No weakness, No weight loss Respiratory: No problem reported Cardiac: + chest pain, + see HPI Abdomen: + nausea, + see HPI, + vomiting, No GI bleeding, No diarrhea, No pain Female : No problem reported Neurologic: No balance problems, No numbness/tingling, No paralysis, No weakness Heme: No abnormal bleeding/bruising, No clotting problems Endo: No fatigue Skin: No problem reported All Other Systems: Reviewed and Negative Allergies Coded Allergies: Adhesives (Verified Allergy, Mild, RASH, SORES, 09/21/16) Pollen Extract (Unverified Allergy, Unknown, rash, 09/21/16) Medications Current Inpatient Medications Medications (Trade) Dose Ordered Sig/Bladimir Route Start Time Stop Time Status Last Admin Dose Admin Insulin Glargine (Lantus Solostar Pen) 5 unit BID SC 10/06/16 09:00 10/06/16 09:56 5 UNIT Glucose (Glucose 40% Gel) 15-30 GRAMS 15 GRAMS... UD PRN PO 10/05/16 23:45 11/04/16 23:44 Glucose (Glucose Chew Tab) 4-8 Tablets 4 Tabl... UD PRN PO 10/05/16 23:45 11/04/16 23:44 Dextrose (Dextrose 50% 50ML Syringe) 25-50ML OF 50% DW IV FOR... UD PRN IV 10/05/16 23:45 11/04/16 23:44 Glucagon (Glucagon Inj) 1 mg UD PRN SQ 10/05/16 23:45 11/04/16 23:44 Hydromorphone HCl (Dilaudid Inj) 0.5 mg Q3H PRN IV 10/06/16 00:15 10/20/16 00:14 10/06/16 00:20 0.5 MG Ondansetron HCl 4 mg 4 mg Q6H PRN IV 10/06/16 00:15 11/05/16 00:14 10/06/16 10:43 4 MG Promethazine HCl/ Sodium Chloride (Phenergan Inj/ Nss 50ml) 50.5 ml @ 204 mls/hr Q6H PRN IV 10/06/16 00:15 11/05/16 00:14 Lorazepam (Ativan Inj) 0.5 mg Q4H PRN IV 10/06/16 00:15 11/05/16 00:14 Miscellaneous (Iv Fluids Completed) 1 ea PRN PRN N/A 10/06/16 00:15 10/06/17 00:14 Acetaminophen (Tylenol Tab) 650 mg Q4H PRN PO 10/06/16 00:15 11/05/16 00:14 Nitroglycerin (Nitrostat Tab) 0.4 mg UD PRN SL 10/06/16 00:15 11/05/16 00:14 Insulin Aspart (novoLOG ASPART) SLIDING SCALE If C... ACHS SC 10/06/16 07:00 11/05/16 06:59 Atorvastatin Calcium (Lipitor Tab) 40 mg DAILY PO 10/06/16 09:00 11/05/16 08:59 2/15/17 09:52 40 MG Calcium Acetate (Phoslo Cap) 667 mg TIDM PO 10/06/16 07:30 11/05/16 07:29 10/06/16 10:48 667 MG Isosorbide Mononitrate (Imdur Ext Rel Tab) 60 mg QAM PO 10/06/16 09:00 11/05/16 08:59 10/06/16 09:52 60 MG Isosorbide Mononitrate (Imdur Ext Rel Tab) 30 mg QAM PO 10/06/16 09:00 11/05/16 08:59 10/06/16 09:51 30 MG Prednisone (PredniSONE TAB) 10 mg DAILY PO 10/06/16 09:00 10/08/16 09:01 10/06/16 09:53 10 MG Sertraline HCl (Zoloft Tab) 100 mg DAILY PO 10/06/16 09:00 11/05/16 08:59 10/06/16 09:54 100 MG Tramadol HCl not relieved by tylenol @ Q6H PRN PO 10/06/16 00:15 11/05/16 00:14 Pantoprazole Sodium/Syringe (Protonix Inj/ Syringe) 20 ml @ 5 mls/min BID@0900,2100 IV 10/06/16 09:00 11/05/16 08:59 10/06/16 09:51 5 MLS/MIN Metoprolol Tartrate (Lopressor Tab) 50 mg BID PO 10/06/16 09:00 11/05/16 08:59 10/06/16 09:53 50 MG Menthol (Nice Lucinda) 1 lucinda PRN PRN PO 10/06/16 05:15 11/05/16 05:14 Epoetin Christopher (Procrit Inj) 10,000 units 0900 IV. 10/06/16 09:00 10/06/16 17:00 Physical Exam Vital Signs Past 12 Hours Date Time Temp Pulse Resp B/P Pulse Ox O2 Delivery O2 Flow Rate FiO2 10/06/16 10:50 36.5 73 20 179/93 100 Nasal Cannula 2.0 10/06/16 08:00 36.4 62 18 160/93 100 Nasal Cannula 2.0 10/06/16 08:00 100 Nasal Cannula 2.0 10/06/16 04:00 37.0 72 16 149/82 100 Nasal Cannula 2.0 10/06/16 04:00 100 Nasal Cannula 2.0 10/06/16 01:48 36.5 82 18 182/99 100 Nasal Cannula 1.5 10/06/16 00:53 64 19 150/88 100 Nasal Cannula 2.0 Constitutional: General Apperance: overweight Level of Distress: mild distress Psychiatric: Mental Status: active & alert Head: normocephalic Eyes: EOM: EOMI ENMT: normal ENT inspection, hearing grossly normal Neck: supple, no masses Lungs: Respiratory effort: no dyspnea, good air movement Auscultation: breath sounds normal, no wheezing Cardiovascular: Heart Auscultation: RRR, no murmurs, no rubs, no gallops Peripheral Pulses: Bruits: none appreciated Abdomen: Bowel Sounds: normal Inspection & Palpation: soft, no tenderness, guarding & rebound, no masses Musculoskeletal: normal strength (5/5 throughout) Extremities: no edema Neurologic: Cranial Nerves: grossly intact Sensation: grossly intact Data Laboratory Results: Last 24 Hours Test 10/05/16 20:50 10/05/16 21:20 10/05/16 22:38 10/06/16 00:23 Gastric Fluid pH 3 Gastric Fluid Occult Blood POS White Blood Count 12.05 K/uL Red Blood Count 3.98 M/uL Hemoglobin 12.4 g/dL Hematocrit 37.8 % Mean Corpuscular Volume 95.0 fL Mean Corpuscular Hemoglobin 31.2 pg Mean Corpuscular Hemoglobin Concent 32.8 g/dl Platelet Count 383 K/uL Mean Platelet Volume 10.5 fL Neutrophils (%) (Auto) 76.5 % Lymphocytes (%) (Auto) 13.9 % Monocytes (%) (Auto) 8.6 % Eosinophils (%) (Auto) 0.4 % Basophils (%) (Auto) 0.2 % Neutrophils # (Auto) 9.21 K/uL Lymphocytes # (Auto) 1.67 K/uL Monocytes # (Auto) 1.04 K/uL Eosinophils # (Auto) 0.05 K/uL Basophils # (Auto) 0.03 K/uL RDW Standard Deviation 53.0 fL RDW Coefficient of Variation 15.5 % Immature Granulocyte % (Auto) 0.4 % Immature Granulocyte # (Auto) 0.05 K/uL Prothrombin Time 10.7 SECONDS Prothromb Time International Ratio 1.0 Activated Partial Thromboplast Time 24.3 SECONDS Partial Thromboplastin Ratio 0.9 Sodium Level 133 mmol/L Potassium Level 5.1 mmol/L Chloride Level 96 mmol/L Carbon Dioxide Level 22 mmol/L Anion Gap 15.0 mmol/L Blood Urea Nitrogen 48 mg/dl Creatinine 7.80 mg/dl Estimated GFR () 6.4 Estimated GFR (Non- 5.5 BUN/Creatinine Ratio 6.0 Random Glucose 231 mg/dl Estimated Average Glucose 157 mg/dl Hemoglobin A1c 7.1 % Calcium Level 9.8 mg/dl Total Bilirubin 0.4 mg/dl Aspartate Amino Transf (AST/SGOT) 13 U/L Alanine Aminotransferase (ALT/SGPT) 14 U/L Alkaline Phosphatase 96 U/L Troponin I 0.433 ng/ml Total Protein 8.4 gm/dl Albumin 3.2 gm/dl Globulin 5.2 gm/dl Albumin/Globulin Ratio 0.6 Lipase 172 U/L Lactic Acid Level 2.3 mmol/L Bedside Glucose 231 mg/dl Test 10/06/16 04:48 10/06/16 10:48 10/06/16 12:20 White Blood Count 12.87 K/uL Red Blood Count 3.54 M/uL Hemoglobin 10.7 g/dL 10.3 g/dL Hematocrit 33.1 % 32.1 % Mean Corpuscular Volume 93.5 fL Mean Corpuscular Hemoglobin 30.2 pg Mean Corpuscular Hemoglobin Concent 32.3 g/dl Platelet Count 350 K/uL Mean Platelet Volume 10.1 fL Neutrophils (%) (Auto) 75.4 % Lymphocytes (%) (Auto) 15.2 % Monocytes (%) (Auto) 8.3 % Eosinophils (%) (Auto) 0.5 % Basophils (%) (Auto) 0.2 % Neutrophils # (Auto) 9.72 K/uL Lymphocytes # (Auto) 1.95 K/uL Monocytes # (Auto) 1.07 K/uL Eosinophils # (Auto) 0.06 K/uL Basophils # (Auto) 0.02 K/uL RDW Standard Deviation 53.2 fL RDW Coefficient of Variation 15.6 % Immature Granulocyte % (Auto) 0.4 % Immature Granulocyte # (Auto) 0.05 K/uL Sodium Level 135 mmol/L Potassium Level 5.4 mmol/L Chloride Level 99 mmol/L Carbon Dioxide Level 27 mmol/L Anion Gap 9.0 mmol/L Blood Urea Nitrogen 51 mg/dl Creatinine 8.20 mg/dl Est Creatinine Clear Calc Drug Dose 10.0 ml/min Estimated GFR () 6.0 Estimated GFR (Non- 5.2 BUN/Creatinine Ratio 6.3 Random Glucose 159 mg/dl Lactic Acid Level 2.2 mmol/L 2.0 mmol/L Calcium Level 8.8 mg/dl Magnesium Level 2.4 mg/dl Total Creatine Kinase 81 U/L Creatine Kinase MB 9.0 ng/ml Creatine Kinase MB Ratio 11.1 Troponin I 1.840 ng/ml Bedside Glucose 98 mg/dl Imaging: Echo pending EKG: On arrival sinus tachycardia rate [address] elevation in lead [address] depression in 1 and aVL without T-wave inversion. An electrocardiogram this morning and prior electrocardiograms show sinus rhythm with slight inferior ST elevation, T-wave inversion in 1 and aVL. Her electrocardiogram on arrival could represent pseudonormalization. Telemetry reviewed: Sinus rhythm, no significant arrhythmia. Assessment & Plan #1. Chest discomfort: The character of her chest discomfort does not suggest myocardial ischemia and in the past she has not had chest discomfort despite significant coronary artery disease. I suspect it is not due to coronary artery disease, however she has other evidence of having possible myocardial injury. This may be due to her long-standing coronary disease not in acute event however. #2. Elevated troponin: She has an elevated troponin to 1.8, with others pending. This is higher than on her last visit. This is still consistent with demand ischemia, her initial electrocardiogram suggested pseudonormalization in the lateral leads and would go along with demand ischemia as those changes have now resolved. Although she has slight inferior ST elevation does not look like an acute infarction. At this point I doubt invasive evaluation is warranted but I will discuss with Dr. Venegas. With her acute GI bleed it seems unlikely that we could intervene with the requirement for antiplatelet agents if we did. Thank you for allowing me to participate in her care.
[2016-10-07] VITALS (8 sets, daily range): BP systolic 136–161; BP diastolic 63–77; PULSE 59–70; TEMP 36.4–36.9; O2SAT 95–100
[2016-10-07 06:24] LABS: BASO % 0.3 %; BASO ABS # 0.03 K/uL (0-0.2); COMPLETE YES; HEMATOCRIT 30.2 % (37-47); IG% 0.4 %; LYMPH % 34.8 %; LYMPH ABS # 3.68 K/uL (1.2-3.4); MEAN CELL VOLUME 97.7 fL (80-100); MEAN CORPUSCULAR HEMOGLOBIN 31.1 pg (25-34); MEAN CORPUSCULAR HGB CONC 31.8 g/dl (32-36); MEAN PLATELET VOLUME 10.3 fL (7.4-10.4); MONO % 8.1 %; NEUT % 52.4 %; PLATELET COUNT 266 K/uL (130-400); RED BLOOD COUNT 3.09 M/uL (4.2-5.4); WHITE BLOOD COUNT 10.58 K/uL (4.8-10.8)
[2016-10-07] MEDS: INSULIN ASPART 100 UNITS/ML 3 ML PEN SC SCH ×4 (07:00→21:00)
[2016-10-07] MEDS: CALCIUM ACETATE 667MG GELCAP PO SCH ×3 (07:23→17:37)
[2016-10-07 07:25] LABS: CALCIUM 8.1 mg/dl (8.5-10.1); CREATININE 5.9 mg/dl (0.60-1.20); POTASSIUM 4.8 mmol/L (3.5-5.1)
[2016-10-07] MEDS: METOPROLOL TARTRATE 25 MG TAB PO SCH ×2 (08:21→22:14)
[2016-10-07] MEDS: PANTOprazole INJ 80 MG in SYRINGE 0 ML IV SCH ×2 (08:21→22:13)
[2016-10-07] MEDS: ISOSORBIDE MONONITRATE 30 MG TABCR PO SCH (08:21)
[2016-10-07] MEDS: ISOSORBIDE MONONITRATE 60 MG TABCR PO SCH (08:22)
[2016-10-07] MEDS: ATORVASTATIN 40 MG TAB PO SCH (08:22)
[2016-10-07] MEDS: INSULIN GLARGINE SOLOSTAR 100 UNITS/ML 3 ML PEN SC SCH ×2 (08:25→22:05)
[2016-10-07] MEDS ORDERED: LIDOCAINE HCL 2% 2 ML VIAL (20MG/ML) ONE (09:45)
[2016-10-07] MEDS ORDERED: PROPOFOL IV EMULSION 10 MG/ML 20 ML VIAL IV ONE (09:45)
--- NOTE | 2016-10-07 10:13 | GI REPORT ---
Procedure Date: 10/07/2016 9:57 AM Procedure: Upper GI endoscopy Indications: Nausea with vomiting Medicines: Monitored Anesthesia Care Complications: No immediate complications. Estimated blood loss: None. Estimated Blood Loss: Estimated blood loss: none. Procedure: Pre-Anesthesia Assessment: - Prior to the procedure, a History and Physical was performed, and patient medications, allergies and sensitivities were reviewed. The patient's tolerance of previous anesthesia was reviewed. - ASA Grade Assessment: III - A patient with severe systemic disease. After obtaining informed consent, the endoscope was passed under direct vision. Throughout the procedure, the patient's blood pressure, pulse, and oxygen saturations were monitored continuously. The On-site loaner was introduced through the mouth, and advanced to the third part of the duodenum. Small bowel enteroscopy was deemed necessary. The upper GI endoscopy was accomplished with ease. The patient tolerated the procedure well. Findings: The upper third of the esophagus, middle third of the esophagus and lower third of the esophagus were normal. The Z-line was regular and was found 40 cm from the incisors. Biopsies were taken with a cold forceps for histology. The entire examined stomach was normal. Biopsies were taken with a cold forceps for Helicobacter pylori testing. The examined duodenum was normal. Biopsies for histology were taken with a cold forceps for evaluation of celiac disease. Verification of patient identification for the specimens was done by the physician and nurse using the patient's name, date and medical record number. Impression: - Normal upper third of esophagus, middle third of esophagus and lower third of esophagus. - Z-line regular, 40 cm from the incisors. Biopsied. - Normal stomach. Biopsied. - Normal examined duodenum. Biopsied. Recommendation: - Await pathology results. - [facility] patient to [facility] for ongoing care. Timothy Higuera M.D. Timothy Higuera MD 10/07/2016 10:12:44 AM This report has been signed electronically. Note Initiated On: 10/07/2016 9:57 AM I attest to the content of the Intraoperative Record and orders documented therein, exceptions below
[2016-10-07] MEDS ORDERED: NURSING VERBAL MED ORDER ONE (18:00)
--- NOTE | 2016-10-07 20:21 | Progress Note ---
Medicine Progress Note Date & Time of Visit: Oct 07, 2016 at 20:15. Subjective s/p EG today denies nausea, vomiting tolerating diet well reports left thumb numbness and discoloration- erythema, since last night no other symptoms Objective Last 8 Hrs Date Time Temp Pulse Resp B/P Pulse Ox O2 Delivery O2 Flow Rate FiO2 10/07/16 19:56 36.6 70 18 150/77 95 Room Air 10/07/16 16:00 100 Nasal Cannula 2.0 10/07/16 15:54 36.9 69 18 136/68 96 Room Air Physical Exam: General- oriented x 3, not in distress Head- atraumatic Eyes- anicteric Neck- supple, no JVD Lungs- clear to auscultation bilaterally, no rales/wheezes Heart- normal rate, regular rhythm; no murmurs Abdomen- normal bowel sounds, soft, nontender Extremities- right great toe: (+) scaling, eschar on the nail border and dorsal aspect, no tenderness no pretibial edema, no calf tenderness Neuro- alert, oriented x 3;no gross focal deficits Skin- warm & dry Laboratory Results: Last 24 Hours Test 10/06/16 20:19 10/07/16 05:42 10/07/16 06:42 10/07/16 11:16 Bedside Glucose 127 mg/dl 83 mg/dl 101 mg/dl White Blood Count 10.58 K/uL Red Blood Count 3.09 M/uL Hemoglobin 9.6 g/dL Hematocrit 30.2 % Mean Corpuscular Volume 97.7 fL Mean Corpuscular Hemoglobin 31.1 pg Mean Corpuscular Hemoglobin Concent 31.8 g/dl Platelet Count 266 K/uL Mean Platelet Volume 10.3 fL Neutrophils (%) (Auto) 52.4 % Lymphocytes (%) (Auto) 34.8 % Monocytes (%) (Auto) 8.1 % Eosinophils (%) (Auto) 4.0 % Basophils (%) (Auto) 0.3 % Neutrophils # (Auto) 5.55 K/uL Lymphocytes # (Auto) 3.68 K/uL Monocytes # (Auto) 0.86 K/uL Eosinophils # (Auto) 0.42 K/uL Basophils # (Auto) 0.03 K/uL RDW Standard Deviation 57.2 fL RDW Coefficient of Variation 16.1 % Immature Granulocyte % (Auto) 0.4 % Immature Granulocyte # (Auto) 0.04 K/uL Sodium Level 137 mmol/L Potassium Level 4.8 mmol/L Chloride Level 98 mmol/L Carbon Dioxide Level 30 mmol/L Anion Gap 9.0 mmol/L Blood Urea Nitrogen 29 mg/dl Creatinine 5.90 mg/dl Est Creatinine Clear Calc Drug Dose 14.0 ml/min Estimated GFR () 9.0 Estimated GFR (Non- 7.7 BUN/Creatinine Ratio 5.0 Random Glucose 80 mg/dl Calcium Level 8.1 mg/dl Test 10/07/16 17:35 Bedside Glucose 205 mg/dl Assessment & Plan 50 year old female with history of CHF Diastolic type, CAD s/p Stent, DM 2, ESRD presenting with hematemesis. HEMATEMESIS, R/O UPPER GI BLEED - no recurrence so far - Hg 12--> 10.7--> 9.8 - s/p EGD: no source of bleeding found - continue Protonix BID diet resumed - hold Aspirin,Plavix for now--> possible resumption tomorrow if no signs of gi bleed ELEVATED CARDIAC MARKERS HISTORY OF CAD, STENT - no cardiac symptoms, but levels higher than baseline - EKG no signs of acute ischemia - Cardiology consulted - Aspirin, Plavix on hold--> possible re-start tomorrow continue Imdur, Metoprolol ELEVATED LACTIC ACID - resolved CHF DIASTOLIC TYPE euvolemic DM 2 Lantus ISS - monitor ESRD Dr. Prakash consulted for HD LEFT THUMB NUMBNESS, DISCOLORATION will re-consult vascular surgery RIGHT GREAT TOE ESCHAR, SCALING Wound care consulted DVT prophylaxis SCDS Disposition pending Current Inpatient Medications: Current Inpatient Medications Medications (Trade) Dose Ordered Sig/Bladimir Route Start Time Stop Time Status Last Admin Dose Admin Insulin Glargine (Lantus Solostar Pen) 5 unit BID SC 10/06/16 09:00 10/06/16 22:03 5 UNIT Glucose (Glucose 40% Gel) 15-30 GRAMS 15 GRAMS... UD PRN PO 10/05/16 23:45 11/04/16 23:44 Glucose (Glucose Chew Tab) 4-8 Tablets 4 Tabl... UD PRN PO 10/05/16 23:45 11/04/16 23:44 Dextrose (Dextrose 50% 50ML Syringe) 25-50ML OF 50% DW IV FOR... UD PRN IV 10/05/16 23:45 11/04/16 23:44 Glucagon (Glucagon Inj) 1 mg UD PRN SQ 10/05/16 23:45 11/04/16 23:44 Hydromorphone HCl (Dilaudid Inj) 0.5 mg Q3H PRN IV 10/06/16 00:15 10/20/16 00:14 10/06/16 00:20 0.5 MG Ondansetron HCl 4 mg 4 mg Q6H PRN IV 10/06/16 00:15 11/05/16 00:14 10/06/16 10:43 4 MG Promethazine HCl/ Sodium Chloride (Phenergan Inj/ Nss 50ml) 50.5 ml @ 204 mls/hr Q6H PRN IV 10/06/16 00:15 11/05/16 00:14 Lorazepam (Ativan Inj) 0.5 mg Q4H PRN IV 10/06/16 00:15 11/05/16 00:14 Miscellaneous (Iv Fluids Completed) 1 ea PRN PRN N/A 10/06/16 00:15 10/06/17 00:14 Acetaminophen (Tylenol Tab) 650 mg Q4H PRN PO 10/06/16 00:15 11/05/16 00:14 Nitroglycerin (Nitrostat Tab) 0.4 mg UD PRN SL 10/06/16 00:15 11/05/16 00:14 Insulin Aspart (novoLOG ASPART) SLIDING SCALE If C... ACHS SC 10/06/16 07:00 11/05/16 06:59 10/07/16 17:39 6 UNITS Atorvastatin Calcium (Lipitor Tab) 40 mg DAILY PO 10/06/16 09:00 11/05/16 08:59 10/07/16 08:22 40 MG Calcium Acetate (Phoslo Cap) 667 mg TIDM PO 10/06/16 07:30 11/05/16 07:29 10/07/16 17:37 667 MG Isosorbide Mononitrate (Imdur Ext Rel Tab) 60 mg QAM PO 10/06/16 09:00 11/05/16 08:59 10/07/16 08:22 60 MG Isosorbide Mononitrate (Imdur Ext Rel Tab) 30 mg QAM PO 10/06/16 09:00 11/05/16 08:59 10/07/16 08:21 30 MG Prednisone (PredniSONE TAB) 10 mg DAILY PO 10/06/16 09:00 10/08/16 09:01 10/07/16 08:21 10 MG Tramadol HCl not relieved by tylenol @ Q6H PRN PO 10/06/16 00:15 11/05/16 00:14 Pantoprazole Sodium/Syringe (Protonix Inj/ Syringe) 20 ml @ 5 mls/min BID@0900,2100 IV 10/06/16 09:00 11/05/16 08:59 10/07/16 08:21 5 MLS/MIN Metoprolol Tartrate (Lopressor Tab) 50 mg BID PO 10/06/16 09:00 11/05/16 08:59 10/07/16 08:21 50 MG Menthol (Nice Lucinda) 1 lucinda PRN PRN PO 10/06/16 05:15 11/05/16 05:14 Sertraline HCl (Zoloft Tab) 100 mg HS PO 10/07/16 21:00 11/06/16 20:59
--- NOTE | 2016-10-07 20:36 | ECHOCARDIOGRAM REPORT ---
*NOTICE TO RECEIVING DEMOCRAT AGENCY This information is strictly Confidential and protected under [place] law. [place] law prohibits you from making any further disclosure of this information unless further disclosure is expressly permitted by the written consent of the person to whom it pertains or is authorized by law. A general authorization for the release of medical or other information is not sufficient for this purpose. Hospital accepts no responsibility if the information is made available to any other person, INCLUDING THE PATIENT. Interpretation Summary * Name: JAILENE PERRY Study Date: 10/07/2016 09:40 AM BP: 161/72 mmHg * Patient Location: C.2T\S\S234\S\1 HR: 58 * : 1965 (M/d/yyyy) Gender: Female Height: 64 in * Age: 50 yrs Ethnicity: CA Weight: 237 lb * Ordering Physician: Kali Patel * Referring Physician: Self, Referred * Performed By: Dayanara Gibson RCS * * Reason For Study: TROPONINEMIA * BSA: 2.1 m2 * -- Conclusions -- * 1. Normal left ventricular size with low-normal systolic function. Estimated EF 50%. Hypokinesis of the inferolateral, mid inferior, base to mid septal wall. Akinesis of the inferior base. No left ventricular hypertrophy. Type 2 diastolic dysfunction. * 2. The left atrium is mildly dilated. * 3. There is mild mitral regurgitation. * 4. Technically difficult study; IV echo-contrast may enhance image quality to better evaluate LV systolic function. * 5. Compared to prior study on 09/22/2016, LV systolic function has declined. Procedure Details * A complete two-dimensional transthoracic echocardiogram was performed (2D, M-mode, Doppler and color flow Doppler). Left Ventricle * Normal left ventricular size with low-normal systolic function. Estimated EF 50%. Hypokinesis of the inferolateral, mid inferior, base to mid septal wall. Akinesis of the inferior base. No left ventricular hypertrophy. Type 2 diastolic dysfunction. Right Ventricle * The right ventricle is normal in size and function. Atria * The left atrium is mildly dilated. * Right atrial size is normal. * There is no evidence of atrial septal defect, but resolution does not allow assessment for a patent foramen ovale. Mitral Valve * There is mild to moderate mitral annular calcification. * There is no mitral valve stenosis. * There is mild mitral regurgitation. Tricuspid Valve * The tricuspid valve is not well visualized, but is grossly normal. * There is no tricuspid stenosis. * Significant tricuspid regurgitation is absent. Aortic Valve * The aortic valve is trileaflet. * No hemodynamically significant valvular aortic stenosis. * There is no significant aortic regurgitation. Pulmonic Valve * The pulmonary valve is inadequately visualized, but the Doppler data is adequate for interpretation. * There is no pulmonic valvular stenosis. * Trace pulmonic valvular regurgitation. Great Vessels * The aortic root is normal size. * Normal pulmonary venous flow pattern. Pericardium/Pleural * There is no pericardial effusion. Great Vessels * Normal inferior vena cava size and collapsability with sniff indicates a normal right atrial pressure of 3 mmHg MMode 2D Measurements and Calculations IVSd 1.1 cm IVSs 1.6 cm LVIDd 5.6 cm LVIDs 4.2 cm LVPWd 1.1 cm LVPWs 1.5 cm IVS/LVPW 1.0 FS 26.2 % EDV(Teich) 156.0 ml ESV(Teich) 76.8 ml EF(Teich) 50.8 % EDV(cubed) 179.2 ml ESV(cubed) 71.9 ml EF(cubed) 59.9 % % IVS thick 45.0 % % LVPW thick 37.0 % LV mass(C)d 248.6 grams LV mass(C)dI 118.3 grams/m\S\2 LV mass(C)s 255.2 grams LV mass(C)sI 121.4 grams/m\S\2 SV(Teich) 79.3 ml SI(Teich) 37.7 ml/m\S\2 SV(cubed) 107.2 ml SI(cubed) 51.0 ml/m\S\2 Ao root diam 3.1 cm Ao root area 7.7 cm\S\2 LA dimension 4.6 cm LA/Ao 1.5 LVOT diam 2.0 cm LVOT area 3.1 cm\S\2 Doppler Measurements and Calculations MV E max william 103.5 cm/sec MV A max william 72.3 cm/sec MV E/A 1.4 MV P1/2t max william 109.5 cm/sec MV P1/2t 126.1 msec MVA(P1/2t) 1.7 cm\S\2 MV dec slope 254.2 cm/sec\S\2 MV dec time 0.22 sec Ao V2 max 152.8 cm/sec Ao max PG 9.3 mmHg Ao max PG (full) 5.1 mmHg INA(V,A) 2.1 cm\S\2 INA(V,D) 2.1 cm\S\2 LV V1 max PG 4.2 mmHg LV V1 max 103.0 cm/sec
[2016-10-07] MEDS: SERTRALINE HCL 100 MG TAB PO SCH (22:13)
[2016-10-08] VITALS (21 sets, daily range): BP systolic 97–158; BP diastolic 44–83; PULSE 52–72; TEMP 36.4–37.7; O2SAT 96–100
[2016-10-08 07:21] LABS: BASO % 0.2 %; BASO ABS # 0.02 K/uL (0-0.2); EOS % 3.3 %; HEMATOCRIT 28.3 % (37-47); IG% 0.5 %; LYMPH % 39.9 %; LYMPH ABS # 3.73 K/uL (1.2-3.4); MEAN CELL VOLUME 95.9 fL (80-100); MEAN CORPUSCULAR HEMOGLOBIN 30.2 pg (25-34); MEAN CORPUSCULAR HGB CONC 31.4 g/dl (32-36); MEAN PLATELET VOLUME 10.2 fL (7.4-10.4); NEUT % 47.1 %; PLATELET COUNT 265 K/uL (130-400); RED BLOOD COUNT 2.95 M/uL (4.2-5.4); WHITE BLOOD COUNT 9.35 K/uL (4.8-10.8)
[2016-10-08 07:39] LABS: COMPLETE YES
[2016-10-08 08:06] LABS: BUN/CREATININE RATIO 5.3 (10-20); CALCIUM 7.9 mg/dl (8.5-10.1); CREATININE 8.1 mg/dl (0.60-1.20); POTASSIUM 4.2 mmol/L (3.5-5.1)
[2016-10-08] MEDS: INSULIN ASPART 100 UNITS/ML 3 ML PEN SC SCH ×4 (08:09→21:00)
[2016-10-08] MEDS: INSULIN GLARGINE SOLOSTAR 100 UNITS/ML 3 ML PEN SC SCH ×2 (08:10→21:16)
[2016-10-08] MEDS: CALCIUM ACETATE 667MG GELCAP PO SCH ×3 (08:11→17:04)
[2016-10-08] MEDS: ATORVASTATIN 40 MG TAB PO SCH (08:11)
[2016-10-08] MEDS: METOPROLOL TARTRATE 25 MG TAB PO SCH ×2 (08:11→21:10)
[2016-10-08] MEDS: ISOSORBIDE MONONITRATE 30 MG TABCR PO SCH (08:12)
[2016-10-08] MEDS: ISOSORBIDE MONONITRATE 60 MG TABCR PO SCH (08:12)
--- NOTE | 2016-10-08 08:13 | Nephrology Progress Note ---
Nephrology Progress Note Date of Service: Oct 08, 2016. Subjective pt underwent EGD yesterday. 50 yo female with esrd who is now eating better. did have significant nausea and vomiting and vomited up blood on presentation. pt starting to feel fluid overloaded. Objective Date Time Temp Pulse Resp B/P Pulse Ox O2 Delivery O2 Flow Rate FiO2 10/08/16 07:43 36.6 60 18 148/83 100 Nasal Cannula 2.0 10/08/16 04:18 36.9 57 18 143/80 99 Room Air 10/08/16 04:00 Room Air 10/08/16 00:12 36.9 72 22 158/79 96 Room Air 10/07/16 23:59 Room Air 10/07/16 20:00 Room Air 10/07/16 19:56 36.6 70 18 150/77 95 Room Air 10/07/16 16:00 100 Nasal Cannula 2.0 10/07/16 15:54 36.9 69 18 136/68 96 Room Air 10/07/16 12:00 100 Nasal Cannula 2.0 10/07/16 10:44 59 18 145/70 100 Room Air 10/07/16 10:29 58 18 105/55 97 Room Air 10/07/16 10:14 55 16 101/49 95 Room Air 10/07/16 09:35 36.3 60 18 178/81 100 Room Air 10/07/16 08:36 36.5 18 161/72 100 Nasal Cannula 2.0 Physical Exam: General-aaox3, obese Eyes-no scleral icterus, puffy ENT-mmm Neck-supple Lungs-cta Heart-rrr Abdomen-bs+ s/nt/nd Extremities-no c/c/e Neuro-nonfocal Current Inpatient Medications Medications (Trade) Dose Ordered Sig/Bladimir Route Start Time Stop Time Status Last Admin Dose Admin Insulin Glargine (Lantus Solostar Pen) 5 unit BID SC 10/06/16 09:00 10/07/16 22:05 5 UNIT Glucose (Glucose 40% Gel) 15-30 GRAMS 15 GRAMS... UD PRN PO 10/05/16 23:45 11/04/16 23:44 Glucose (Glucose Chew Tab) 4-8 Tablets 4 Tabl... UD PRN PO 10/05/16 23:45 11/04/16 23:44 Dextrose (Dextrose 50% 50ML Syringe) 25-50ML OF 50% DW IV FOR... UD PRN IV 10/05/16 23:45 11/04/16 23:44 Glucagon (Glucagon Inj) 1 mg UD PRN SQ 10/05/16 23:45 11/04/16 23:44 Hydromorphone HCl (Dilaudid Inj) 0.5 mg Q3H PRN IV 10/06/16 00:15 10/20/16 00:14 10/06/16 00:20 0.5 MG Ondansetron HCl 4 mg 4 mg Q6H PRN IV 10/06/16 00:15 11/05/16 00:14 10/06/16 10:43 4 MG Promethazine HCl/ Sodium Chloride (Phenergan Inj/ Nss 50ml) 50.5 ml @ 204 mls/hr Q6H PRN IV 10/06/16 00:15 11/05/16 00:14 Lorazepam (Ativan Inj) 0.5 mg Q4H PRN IV 10/06/16 00:15 11/05/16 00:14 Miscellaneous (Iv Fluids Completed) 1 ea PRN PRN N/A 10/06/16 00:15 10/06/17 00:14 Acetaminophen (Tylenol Tab) 650 mg Q4H PRN PO 10/06/16 00:15 11/05/16 00:14 Nitroglycerin (Nitrostat Tab) 0.4 mg UD PRN SL 10/06/16 00:15 11/05/16 00:14 Insulin Aspart (novoLOG ASPART) SLIDING SCALE If C... ACHS SC 10/06/16 07:00 11/05/16 06:59 10/07/16 17:39 6 UNITS Atorvastatin Calcium (Lipitor Tab) 40 mg DAILY PO 10/06/16 09:00 11/05/16 08:59 10/07/16 08:22 40 MG Calcium Acetate (Phoslo Cap) 667 mg TIDM PO 10/06/16 07:30 11/05/16 07:29 10/07/16 17:37 667 MG Isosorbide Mononitrate (Imdur Ext Rel Tab) 60 mg QAM PO 10/06/16 09:00 11/05/16 08:59 10/07/16 08:22 60 MG Isosorbide Mononitrate (Imdur Ext Rel Tab) 30 mg QAM PO 10/06/16 09:00 11/05/16 08:59 10/07/16 08:21 30 MG Prednisone (PredniSONE TAB) 10 mg DAILY PO 10/06/16 09:00 10/08/16 09:01 10/07/16 08:21 10 MG Tramadol HCl not relieved by tylenol @ Q6H PRN PO 10/06/16 00:15 11/05/16 00:14 Pantoprazole Sodium/Syringe (Protonix Inj/ Syringe) 20 ml @ 5 mls/min BID@0900,2100 IV 10/06/16 09:00 11/05/16 08:59 10/07/16 22:13 5 MLS/MIN Metoprolol Tartrate (Lopressor Tab) 50 mg BID PO 10/06/16 09:00 11/05/16 08:59 10/07/16 22:14 50 MG Menthol (Nice Lucinda) 1 lucinda PRN PRN PO 10/06/16 05:15 11/05/16 05:14 Sertraline HCl (Zoloft Tab) 100 mg HS PO 10/07/16 21:00 11/06/16 20:59 10/07/16 22:13 100 MG Last 24 Hours Test 10/07/16 11:16 10/07/16 17:35 10/07/16 20:24 10/08/16 06:51 Bedside Glucose 101 mg/dl 205 mg/dl 162 mg/dl White Blood Count 9.35 K/uL Red Blood Count 2.95 M/uL Hemoglobin 8.9 g/dL Hematocrit 28.3 % Mean Corpuscular Volume 95.9 fL Mean Corpuscular Hemoglobin 30.2 pg Mean Corpuscular Hemoglobin Concent 31.4 g/dl Platelet Count 265 K/uL Mean Platelet Volume 10.2 fL Neutrophils (%) (Auto) 47.1 % Lymphocytes (%) (Auto) 39.9 % Monocytes (%) (Auto) 9.0 % Eosinophils (%) (Auto) 3.3 % Basophils (%) (Auto) 0.2 % Neutrophils # (Auto) 4.40 K/uL Lymphocytes # (Auto) 3.73 K/uL Monocytes # (Auto) 0.84 K/uL Eosinophils # (Auto) 0.31 K/uL Basophils # (Auto) 0.02 K/uL RDW Standard Deviation 54.4 fL RDW Coefficient of Variation 15.7 % Immature Granulocyte % (Auto) 0.5 % Immature Granulocyte # (Auto) 0.05 K/uL Red Blood Cell Morphology Unremarkable Sodium Level 136 mmol/L Potassium Level 4.2 mmol/L Chloride Level 98 mmol/L Carbon Dioxide Level 28 mmol/L Anion Gap 10.0 mmol/L Blood Urea Nitrogen 43 mg/dl Creatinine 8.10 mg/dl Est Creatinine Clear Calc Drug Dose 10.2 ml/min Estimated GFR () 6.1 Estimated GFR (Non- 5.3 BUN/Creatinine Ratio 5.3 Random Glucose 139 mg/dl Calcium Level 7.9 mg/dl Assessment & Plan ESRD-for dialysis today. last dialysis treatment-no fluid removal with low blood pressures. bp is better today and pt feels puffy. will plan on 3 liters uf. Anemia of renal Failure-hg levels are trending down. on procrit and will redose again today. perhaps may have a dilutional effect as well.
[2016-10-08] MEDS: PANTOprazole INJ 80 MG in SYRINGE 0 ML IV SCH (08:15)
[2016-10-08] MEDS ORDERED: EPOETIN ALFA 10,000 UNITS/ML VIAL IV. SCH (09:00)
[2016-10-08] MEDS ORDERED: ASPIRIN 81 MG ECTAB PO ONE (13:15)
--- NOTE | 2016-10-08 14:34 | Medical Consult ---
Consultation Note Consultation Note Chief Complaint L hand pain, numbness. Also malfunctioning AVF History of Present Illness The patient is a 50 year old female with multiple medical problems, including ESRD on HD, HTN, DMII, CAD, morbid obesity, known to vascular service for HD access and carotid stenosis, seen today d/t sudden onset L hand pain and pallor associated with chest pains that started while in the shower yesterday. Pt states the pain is much better today, but her hand is still sensitive. Complains of discoloration of the tip of the left thumb. US performed recently demonstrates diffuse arterial disease. R 2nd finger with distal gangrene. Denies any other new complaints, although dialysis staff state she has been difficult to run d/t low arterial flows. Denies NELSON, fever, chills, chest pain today, SOB, abd pain, N/V, rest pain, claudication, other complaints. Allergies Coded Allergies: Adhesives (Verified Allergy, Mild, RASH, SORES, 09/21/16) Pollen Extract (Unverified Allergy, Unknown, rash, 09/21/16) Home Medications Scheduled Aspirin (Aspirin Ec), 81 MG PO DAILY Atorvastatin (Lipitor), 40 MG PO DAILY Calcium Acetate (Phoslo 667 Mg), 1 CAP PO WM Cephalexin Monohydrate (Cephalexin), 1 CAP PO BID Clopidogrel Bisulfate (Plavix), 1 TAB PO DAILY Insulin Glargine (Lantus Solostar), 10 UNITS SC QPM Isosorbide Mononitrate (Isosorbide Mononitrate ER), 60 MG PO QAM Isosorbide Mononitrate Ext Rel (Imdur Ext Rel), 30 MG PO QAM Metoprolol Tartrate (Lopressor), 50 MG PO BID Ranitidine Hcl (Zantac), 300 MG PO HS Sertraline HCl (Sertraline HCl), 2 TAB PO DAILY Scheduled PRN Lorazepam (Ativan), 0.5 MG PO DAILY PRN for Anxiety Methocarbamol (Methocarbamol), 500 MG PO BID PRN for Muscle Spasms Tramadol (Ultram), 1 TAB PO TID PRN for Pain Problem List Medical Problems: (1) Allergic rhinitis (2) CAD (coronary artery disease) (3) Carotid stenosis (4) DM type 2 (diabetes mellitus, type 2) (5) Dyslipidemia (6) ESRD (end stage renal disease) on dialysis (7) GERD (gastroesophageal reflux disease) (8) HTN (hypertension) (9) HX OF PAST NONCOMPLIANCE (10) Ischemic cardiomyopathy (11) Morbid obesity (12) Tobacco use disorder Surgical Problems: (1) Hemodialysis access, AV graft Surgical / Medical History Hx Cardiac Surgery: Yes (angioplasty with stenting) Hx Abdominal Surgery: No Hx Cancer Surgery: No Hx Thoracic Surgery: No Hx Orthopedic: No Hx Urinary Tract Surgery: No Past Medical/Surgical History: Diabetes, Heart Disease, High Cholesterol, Hypertension, Kidney Disease Family History Diabetes mellitus FATHER MOTHER Heart disease FATHER MOTHER Hypertension FATHER MOTHER Kidney disease GRANDMOTHER Social History Smoking Status: Former Smoker Hx Tobacco Use In Past Year?: No Hx Alcohol Use - Type & Amnt: No Hx Substance Use -Type & Amnt: No Review of Systems Constitutional: No chills, No malaise Eyes: No visual changes ENMT: No sore throat Respiratory: No [place], No cough, No hemoptysis, No short of breath Cardiovascular: + edema (occasional, chronic), No chest pain, No intermittent claudication, No palpitations, No syncope Gastrointestinal: No abdominal pain, No nausea, No vomiting Neurologic: + numbness (L hand), No dizziness, No headache, No lethargy, No tingling Physical Exam Constitutional: General Apperance: well-nourished, well-developed, obese Level of Distress: NAD, chronically ill Psychiatric: Mental Status: active & alert, normal mood, normal affect Orientation: oriented except where noted, to time, to place, to person Memory: recent memory normal, remote memory normal Head: normocephalic, atraumatic Eyes: EOM: EOMI ENMT: normal ENT inspection, hearing grossly normal Neck: supple, trachea midline Lungs: Respiratory effort: no dyspnea Auscultation: no rales/crackles, no rhonchi, decreased breath sounds Cardiovascular: Apical Impulse: not displaced Heart Auscultation: RRR, no murmurs, no rubs, no gallops Peripheral Pulses: Pulses: full and equal, in all extremities except if noted Bruits: none appreciated Carotid Pulse: normal on the left, normal on the right Brachial Pulses: normal on the left, normal on the right Radial Pulse: decreased on the left, decreased on the right Ulnar Pulse: decreased on the left, decreased on the right Femoral Pulse: normal on the left, normal on the right Posterior Tibialis Pulse: decreased on the left, decreased on the right Dorsalis Pedis Pulse: decreased on the left, decreased on the right Abdomen: Bowel Sounds: normal Inspection & Palpation: soft, non-distended, no tenderness, guarding & rebound Musculoskeletal: normal strength (5/5 throughout), normal tone Extremities: Upper Right: no edema, no varicosities, gangrene (2nd finger tip improving) Upper Left: no cyanosis, no edema, no varicosities, no mottling, pertinent finding (Both hands cool, + cap refill at 4sec BUE)(slight discoloration of the tip of left thumb Lower Right: no edema, no varicosities Lower Left: no cyanosis, no edema, no varicosities, gangrene ( great toe) Neurologic: Cranial Nerves: grossly intact Sensation: grossly intact Assessment and Plan ASSESSMENT and PLAN: L hand numbness Malfunctioning LUE AVF Gangrene tip of right index finger and left great toe Discoloration of left thumb Plan: Would treat conservatively at this time. Keep fingers protected from cold and trauma. Recent left upper extremity arterial duplex showed no occlusions. Will need a repeat study with flow volumes through the fistula which can not be done here. This will be done this week in my office. Thank you very much for letting me participate in the care of this patient.
--- NOTE | 2016-10-08 14:52 | Progress Note ---
Medicine Progress Note Date & Time of Visit: Oct 08, 2016 at 14:47. Subjective s/p HD today feels tired after denies nausea/vomiting, hematemesis no melena left thumb and right great toe about the same no chest pain, dyspnea, palpitations, dizziness no other symptoms Objective Last 8 Hrs Date Time Temp Pulse Resp B/P Pulse Ox O2 Delivery O2 Flow Rate FiO2 10/08/16 14:24 36.9 66 130/64 10/08/16 12:00 98 Room Air 10/08/16 11:15 56 114/63 10/08/16 11:00 61 108/62 10/08/16 10:45 54 97/51 10/08/16 10:30 52 97/44 10/08/16 10:15 54 104/68 10/08/16 10:00 57 108/52 10/08/16 09:45 56 102/56 10/08/16 09:30 61 126/64 10/08/16 09:20 36.4 54 106/52 10/08/16 08:00 98 Room Air 10/08/16 07:43 36.6 60 18 148/83 100 Nasal Cannula 2.0 Physical Exam: General- oriented x 3, not in distress Eyes- anicteric Neck- no JVD Lungs- clear breath sounds bilaterally, no rales/wheezes Heart- normal rate, regular rhythm; no murmurs Abdomen- normal bowel sounds, soft, nontender Extremities- right great toe: (+) scaling, eschar on the nail border and dorsal aspect, no tenderness left thumb: mild erythema on the distal aspect no pretibial edema, no calf tenderness Neuro- alert, oriented x 3;no gross focal deficits Skin- warm & dry Laboratory Results: Last 24 Hours Test 10/07/16 17:35 10/07/16 20:24 10/08/16 06:51 10/08/16 08:06 Bedside Glucose 205 mg/dl 162 mg/dl 157 mg/dl White Blood Count 9.35 K/uL Red Blood Count 2.95 M/uL Hemoglobin 8.9 g/dL Hematocrit 28.3 % Mean Corpuscular Volume 95.9 fL Mean Corpuscular Hemoglobin 30.2 pg Mean Corpuscular Hemoglobin Concent 31.4 g/dl Platelet Count 265 K/uL Mean Platelet Volume 10.2 fL Neutrophils (%) (Auto) 47.1 % Lymphocytes (%) (Auto) 39.9 % Monocytes (%) (Auto) 9.0 % Eosinophils (%) (Auto) 3.3 % Basophils (%) (Auto) 0.2 % Neutrophils # (Auto) 4.40 K/uL Lymphocytes # (Auto) 3.73 K/uL Monocytes # (Auto) 0.84 K/uL Eosinophils # (Auto) 0.31 K/uL Basophils # (Auto) 0.02 K/uL RDW Standard Deviation 54.4 fL RDW Coefficient of Variation 15.7 % Immature Granulocyte % (Auto) 0.5 % Immature Granulocyte # (Auto) 0.05 K/uL Red Blood Cell Morphology Unremarkable Sodium Level 136 mmol/L Potassium Level 4.2 mmol/L Chloride Level 98 mmol/L Carbon Dioxide Level 28 mmol/L Anion Gap 10.0 mmol/L Blood Urea Nitrogen 43 mg/dl Creatinine 8.10 mg/dl Est Creatinine Clear Calc Drug Dose 10.2 ml/min Estimated GFR () 6.1 Estimated GFR (Non- 5.3 BUN/Creatinine Ratio 5.3 Random Glucose 139 mg/dl Calcium Level 7.9 mg/dl Test 10/08/16 13:24 Bedside Glucose 111 mg/dl Assessment & Plan 50 year old female with history of CHF Diastolic type, CAD s/p Stent, DM 2, ESRD presenting with hematemesis. HEMATEMESIS EGD UNREVEALING - no recurrence so far - Hg 12--> 10.7--> 9.6--> 8.9 - s/p EGD: no source of bleeding found - continue Protonix BID diet resume - no recurrence resume Aspirin monitor Hg ELEVATED CARDIAC MARKERS HISTORY OF CAD, STENT - no cardiac symptoms, but levels higher than baseline - EKG no signs of acute ischemia - Cardiology consulted - resume Aspirin continue Imdur, Metoprolol ELEVATED LACTIC ACID - resolved CHF DIASTOLIC TYPE euvolemic DM 2 Lantus ISS - monitor ESRD Dr. Prakash consulted for HD LEFT THUMB NUMBNESS, DISCOLORATION appreciate Dr. Luz's recommendations RIGHT GREAT TOE ESCHAR, SCALING Wound care consulted DVT prophylaxis SCDs ambulation Disposition pending possible dc in AM Current Inpatient Medications: Current Inpatient Medications Medications (Trade) Dose Ordered Sig/Bladimir Route Start Time Stop Time Status Last Admin Dose Admin Insulin Glargine (Lantus Solostar Pen) 5 unit BID SC 10/06/16 09:00 10/08/16 08:10 5 UNIT Glucose (Glucose 40% Gel) 15-30 GRAMS 15 GRAMS... UD PRN PO 10/05/16 23:45 11/04/16 23:44 Glucose (Glucose Chew Tab) 4-8 Tablets 4 Tabl... UD PRN PO 10/05/16 23:45 11/04/16 23:44 Dextrose (Dextrose 50% 50ML Syringe) 25-50ML OF 50% DW IV FOR... UD PRN IV 10/05/16 23:45 11/04/16 23:44 Glucagon (Glucagon Inj) 1 mg UD PRN SQ 10/05/16 23:45 11/04/16 23:44 Hydromorphone HCl (Dilaudid Inj) 0.5 mg Q3H PRN IV 10/06/16 00:15 10/20/16 00:14 10/06/16 00:20 0.5 MG Ondansetron HCl 4 mg 4 mg Q6H PRN IV 10/06/16 00:15 11/05/16 00:14 10/06/16 10:43 4 MG Promethazine HCl/ Sodium Chloride (Phenergan Inj/ Nss 50ml) 50.5 ml @ 204 mls/hr Q6H PRN IV 10/06/16 00:15 11/05/16 00:14 Lorazepam (Ativan Inj) 0.5 mg Q4H PRN IV 10/06/16 00:15 11/05/16 00:14 Miscellaneous (Iv Fluids Completed) 1 ea PRN PRN N/A 10/06/16 00:15 10/06/17 00:14 Acetaminophen (Tylenol Tab) 650 mg Q4H PRN PO 10/06/16 00:15 11/05/16 00:14 Nitroglycerin (Nitrostat Tab) 0.4 mg UD PRN SL 10/06/16 00:15 11/05/16 00:14 Insulin Aspart (novoLOG ASPART) SLIDING SCALE If C... ACHS SC 10/06/16 07:00 11/05/16 06:59 10/08/16 08:09 6 UNITS Atorvastatin Calcium (Lipitor Tab) 40 mg DAILY PO 10/06/16 09:00 3/17/17 08:59 10/08/16 08:11 40 MG Calcium Acetate (Phoslo Cap) 667 mg TIDM PO 10/06/16 07:30 11/05/16 07:29 10/08/16 08:11 667 MG Isosorbide Mononitrate (Imdur Ext Rel Tab) 60 mg QAM PO 10/06/16 09:00 11/05/16 08:59 10/08/16 08:12 60 MG Isosorbide Mononitrate (Imdur Ext Rel Tab) 30 mg QAM PO 10/06/16 09:00 11/05/16 08:59 10/08/16 08:12 30 MG Tramadol HCl not relieved by tylenol @ Q6H PRN PO 10/06/16 00:15 11/05/16 00:14 Pantoprazole Sodium/Syringe (Protonix Inj/ Syringe) 20 ml @ 5 mls/min BID@0900,2100 IV 10/06/16 09:00 11/05/16 08:59 10/08/16 08:15 5 MLS/MIN Metoprolol Tartrate (Lopressor Tab) 50 mg BID PO 10/06/16 09:00 11/05/16 08:59 10/08/16 08:11 50 MG Menthol (Nice Lucinda) 1 lucinda PRN PRN PO 10/06/16 05:15 11/05/16 05:14 Sertraline HCl (Zoloft Tab) 100 mg HS PO 10/07/16 21:00 11/06/16 20:59 10/07/16 22:13 100 MG Epoetin Christopher (Procrit Inj) 10,000 units TODAY@0900 IV. 10/08/16 09:00 10/08/16 18:00 10/08/16 11:08 10,000 UNITS Aspirin (Ecotrin Tab) 81 mg DAILY PO 10/09/16 09:00 11/08/16 08:59 UNV Aspirin (Ecotrin Tab) 81 mg 1440 ONCE PO 10/08/16 14:40 10/08/16 14:41 UNV
[2016-10-08] MEDS ORDERED: BENZOCAINE 20% (ORAJEL) 11.9 GM TUBE MT PRN (17:30)
[2016-10-08] MEDS: PANTOprazole INJ 40 MG in SYRINGE 0 ML IV SCH (21:09)
[2016-10-08] MEDS: SERTRALINE HCL 100 MG TAB PO SCH (21:10)
[2016-10-09] VITALS (9 sets, daily range): BP systolic 118–167; BP diastolic 73–88; PULSE 54–66; TEMP 36.5–37.1; O2SAT 97–99
[2016-10-09 07:41] LABS: BASO % 0.4 %; BASO ABS # 0.07 K/uL (0-0.2); COMPLETE YES; EOS % 1.7 %; HEMATOCRIT 29.5 % (37-47); IG% 0.6 %; LYMPH % 21.3 %; LYMPH ABS # 3.45 K/uL (1.2-3.4); MEAN CELL VOLUME 98.7 fL (80-100); MEAN CORPUSCULAR HEMOGLOBIN 30.8 pg (25-34); MEAN CORPUSCULAR HGB CONC 31.2 g/dl (32-36); MEAN PLATELET VOLUME 10.2 fL (7.4-10.4); MONO % 6.1 %; NEUT % 69.9 %; PLATELET COUNT 259 K/uL (130-400); RED BLOOD COUNT 2.99 M/uL (4.2-5.4); WHITE BLOOD COUNT 16.21 K/uL (4.8-10.8)
[2016-10-09] MEDS: CALCIUM ACETATE 667MG GELCAP PO SCH ×3 (07:57→16:51)
[2016-10-09] MEDS: ASPIRIN 81 MG ECTAB PO SCH (07:58)
[2016-10-09] MEDS: ISOSORBIDE MONONITRATE 30 MG TABCR PO SCH (07:59)
[2016-10-09] MEDS: ATORVASTATIN 40 MG TAB PO SCH (07:59)
[2016-10-09] MEDS: METOPROLOL TARTRATE 25 MG TAB PO SCH ×2 (07:59→21:27)
[2016-10-09] MEDS: ISOSORBIDE MONONITRATE 60 MG TABCR PO SCH (08:00)
[2016-10-09] MEDS: INSULIN ASPART 100 UNITS/ML 3 ML PEN SC SCH ×4 (08:06→21:00)
[2016-10-09] MEDS: INSULIN GLARGINE SOLOSTAR 100 UNITS/ML 3 ML PEN SC SCH ×2 (08:07→21:30)
[2016-10-09 08:37] LABS: CALCIUM 8.4 mg/dl (8.5-10.1); CREATININE 6.9 mg/dl (0.60-1.20); FERRITIN 892.8 ng/ml (8.0-388.0); POTASSIUM 4.9 mmol/L (3.5-5.1)
--- NOTE | 2016-10-09 09:46 | Cardiology Follow-Up ---
Subjective Subjective Date of Service: Oct 09, 2016. Pt evaluation today including: conversation w/ patient, physical exam, chart review, lab review, review of studies, conversation w/ professional services consultant, review of inpatient medication list Additional Details: Feels tired, but denies chest pain, shortness of breath. No other new complaints. Problem List Medical Problems: (1) Abdominal pain Status: Acute (2) Acute electrocardiogram changes Status: Acute (3) Elevated troponin Status: Acute (4) Elevated troponin Status: Acute (5) End stage renal disease Status: Acute (6) GI bleed Status: Acute (7) HTN (hypertension) Status: Chronic (8) Hyperkalemia Status: Acute (9) Joint effusion Status: Acute (10) Left elbow pain Status: Acute (11) Left sided chest pain Status: Acute (12) Left sided chest pain Status: Acute (13) Limb ischemia Status: Acute (14) Medical non-compliance Status: Acute (15) Pneumonia Status: Acute (16) Pulmonary edema Status: Acute (17) Renal failure Status: Acute (18) Sinusitis Status: Acute (19) Substernal chest pain Status: Acute (20) Upper abdominal pain Status: Acute (21) Upper GI bleed Status: Acute (22) Urinary tract infection Status: Acute (23) Vomiting Status: Acute (24) Vomiting Status: Acute (25) Vomiting Status: Acute (26) Vomiting Status: Acute Review of Systems Constitutional: No chills, No fever Eyes: No problem reported Respiratory: No problem reported Cardiac: No chest pain Abdomen: + nausea, No pain Musculoskeletal: No problem reported Female : + problem reported (ESRD on HD) Neurologic: No problem reported Psychiatric: No depression symptoms Heme: No abnormal bleeding/bruising Endo: No problem reported Skin: No problem reported Objective Vital Signs Last Vital Signs Documentation Date Time Temp Pulse Resp B/P Pulse Ox O2 Delivery O2 Flow Rate FiO2 10/09/16 08:04 36.8 59 20 161/88 98 Room Air 10/09/16 04:00 2.0 Physical Exam: General Appearance: no apparent distress ENT: hearing grossly normal Respiratory/Chest: lungs clear, normal breath sounds, no respiratory distress Cardiovascular: regular rate, rhythm, no edema, + systolic murmur Abdomen: normal bowel sounds, non tender, soft Extremities: + pertinent finding (extremities cool, right 2nd digit with dry gangrene, discoloration left thumb) Neurologic/Psychiatric: alert, normal mood/affect, oriented x 3 Skin: normal color, warm/dry Lymphatic: no adenopathy Assessment and Plan 1. Troponin elevation/nstemi thought demand related in setting of anemia/ renal dysfunction. 2. CAD s/p BMS to circumflex 6 months ago on ASA, statin, imdur/metoprolol 3. GI bleed no clear source on EGD 4. Anemia Hgb stable this AM 5. ESRD on HD last HD yesterday 6. UE/LE digit gangrene thought to be small vessel disease 7. Malfunctioning fistula 8. Severe carotid artery disease. Patient remains chest pain free, and overall LV function unchanged on Echo In the setting of significant recurrent Troponin elevations, and fact that was largely asymptomatic with initial CAD presentation -- recommend further CAD risk stratification at some point as an outpatient with stress test. Will have my office schedule for sometime next week prior to any vascular procedures. Otherwise from a cardiac standpoint OK for discharge when medical issues resolved. Medications: Current Inpatient Medications Medications (Trade) Dose Ordered Sig/Bladimir Route Start Time Stop Time Status Last Admin Dose Admin Insulin Glargine (Lantus Solostar Pen) 5 unit BID SC 10/06/16 09:00 10/09/16 08:07 5 UNIT Glucose (Glucose 40% Gel) 15-30 GRAMS 15 GRAMS... UD PRN PO 10/05/16 23:45 11/04/16 23:44 Glucose (Glucose Chew Tab) 4-8 Tablets 4 Tabl... UD PRN PO 10/05/16 23:45 11/04/16 23:44 Dextrose (Dextrose 50% 50ML Syringe) 25-50ML OF 50% DW IV FOR... UD PRN IV 10/05/16 23:45 11/04/16 23:44 Glucagon (Glucagon Inj) 1 mg UD PRN SQ 10/05/16 23:45 11/04/16 23:44 Hydromorphone HCl (Dilaudid Inj) 0.5 mg Q3H PRN IV 10/06/16 00:15 10/20/16 00:14 10/06/16 00:20 0.5 MG Ondansetron HCl 4 mg 4 mg Q6H PRN IV 10/06/16 00:15 11/05/16 00:14 10/06/16 10:43 4 MG Promethazine HCl/ Sodium Chloride (Phenergan Inj/ Nss 50ml) 50.5 ml @ 204 mls/hr Q6H PRN IV 10/06/16 00:15 11/05/16 00:14 Lorazepam (Ativan Inj) 0.5 mg Q4H PRN IV 10/06/16 00:15 11/05/16 00:14 Miscellaneous (Iv Fluids Completed) 1 ea PRN PRN N/A 10/06/16 00:15 10/06/17 00:14 Acetaminophen (Tylenol Tab) 650 mg Q4H PRN PO 10/06/16 00:15 11/05/16 00:14 Nitroglycerin (Nitrostat Tab) 0.4 mg UD PRN SL 10/06/16 00:15 11/05/16 00:14 Insulin Aspart (novoLOG ASPART) SLIDING SCALE If C... ACHS SC 10/06/16 07:00 11/05/16 06:59 10/09/16 08:06 9 UNITS Atorvastatin Calcium (Lipitor Tab) 40 mg DAILY PO 10/06/16 09:00 11/05/16 08:59 10/09/16 07:59 40 MG Calcium Acetate (Phoslo Cap) 667 mg TIDM PO 10/06/16 07:30 11/05/16 07:29 10/09/16 07:57 667 MG Isosorbide Mononitrate (Imdur Ext Rel Tab) 60 mg QAM PO 10/06/16 09:00 11/05/16 08:59 10/09/16 08:00 60 MG Isosorbide Mononitrate (Imdur Ext Rel Tab) 30 mg QAM PO 10/06/16 09:00 11/05/16 08:59 10/09/16 07:59 30 MG Tramadol HCl (Ultram Tab) not relieved by tylenol @ Q6H PRN PO 10/06/16 00:15 11/05/16 00:14 Metoprolol Tartrate (Lopressor Tab) 50 mg BID PO 10/06/16 09:00 11/05/16 08:59 10/09/16 07:59 50 MG Menthol (Nice Lucinda) 1 lucinda PRN PRN PO 10/06/16 05:15 11/05/16 05:14 Sertraline HCl (Zoloft Tab) 100 mg HS PO 10/07/16 21:00 11/06/16 20:59 10/08/16 21:10 100 MG Aspirin 81 mg 81 mg DAILY PO 10/09/16 09:00 11/08/16 08:59 10/09/16 07:58 81 MG Pantoprazole Sodium/Syringe (Protonix Inj/ Syringe) 10 ml @ 5 mls/min DAILY@ IV 10/08/16 21:00 11/07/16 20:59 10/08/16 21:09 5 MLS/MIN Benzocaine (Orajel 2% Oral Gel) 1 appln TID PRN MT 10/08/16 17:30 11/07/16 17:29 Lab Results: 10/09/16 07:25 Red Blood Count 2.99, Mean Corpuscular Volume 98.7, Mean Corpuscular Hemoglobin 30.8, Mean Corpuscular Hemoglobin Concent 31.2, Mean Platelet Volume 10.2, Neutrophils (%) (Auto) 69.9, Lymphocytes (%) (Auto) 21.3, Monocytes (%) (Auto) 6.1, Eosinophils (%) (Auto) 1.7, Basophils (%) (Auto) 0.4, Neutrophils # (Auto) 11.33, Lymphocytes # (Auto) 3.45, Monocytes # (Auto) 0.99, Eosinophils # (Auto) 0.28, Basophils # (Auto) 0.07 10/09/16 07:25 Test 10/09/16 06:59 10/09/16 07:25 Bedside Glucose 145 mg/dl (70-90) White Blood Count 16.21 K/uL (4.8-10.8) Red Blood Count 2.99 M/uL (4.2-5.4) Hemoglobin 9.2 g/dL (12.0-16.0) Hematocrit 29.5 % (37-47) Mean Corpuscular Volume 98.7 fL (80-100) Mean Corpuscular Hemoglobin 30.8 pg (25-34) Mean Corpuscular Hemoglobin Concent 31.2 g/dl (32-36) Platelet Count 259 K/uL (130-400) Mean Platelet Volume 10.2 fL (7.4-10.4) Neutrophils (%) (Auto) 69.9 % Lymphocytes (%) (Auto) 21.3 % Monocytes (%) (Auto) 6.1 % Eosinophils (%) (Auto) 1.7 % Basophils (%) (Auto) 0.4 % Neutrophils # (Auto) 11.33 K/uL (1.4-6.5) Lymphocytes # (Auto) 3.45 K/uL (1.2-3.4) Monocytes # (Auto) 0.99 K/uL (0.11-0.59) Eosinophils # (Auto) 0.28 K/uL (0-0.5) Basophils # (Auto) 0.07 K/uL (0-0.2) RDW Standard Deviation 56.7 fL (36.4-46.3) RDW Coefficient of Variation 16.0 % (11.5-14.5) Immature Granulocyte % (Auto) 0.6 % Immature Granulocyte # (Auto) 0.09 K/uL (0.00-0.02) Anion Gap 10.0 mmol/L (3-11) Est Creatinine Clear Calc Drug Dose 11.9 ml/min Estimated GFR () 7.4 Estimated GFR (Non- 6.4 BUN/Creatinine Ratio 6.0 (10-20) Calcium Level 8.4 mg/dl (8.5-10.1) Iron Level 36 mcg/dl (35-150) Total Iron Binding Capacity 194 mcg/dl (250-450) Transferrin 156 mg/dl (200-360) Transferrin % Saturation 16 % (15-50) Ferritin 892.8 ng/ml (8.0-388.0) Vitamin B12 Level 394 pg/mL (211-911) Folate 5.04 ng/mL (>5.38)
[2016-10-09] MEDS: PANTOprazole INJ 40 MG in SYRINGE 0 ML IV SCH ×2 (09:59→21:27)
[2016-10-09] MEDS: ACETAMINOPHEN 325 MG TAB PO PRN (19:23)
--- NOTE | 2016-10-09 19:44 | Progress Note ---
Medicine Progress Note Date & Time of Visit: Oct 09, 2016 at 19:40. Subjective patient states she feels ok overall has right hip pain no nausea, hematemesis, abdominal pain denies chest pain dyspnea finger and toe pain improved Objective Last 8 Hrs Date Time Temp Pulse Resp B/P Pulse Ox O2 Delivery O2 Flow Rate FiO2 10/09/16 16:07 36.5 63 20 118/73 97 Room Air 10/09/16 16:00 Room Air 10/09/16 12:00 97 Room Air Physical Exam: General- oriented x 3, not in distress Eyes- anicteric Lungs- clear breath sounds bilaterally, no rales/wheezes Heart- normal rate, regular rhythm; no murmurs Abdomen- normal bowel sounds, soft, nontender Extremities- right great toe: (+) scaling, eschar on the nail border and dorsal aspect, no tenderness Left thumb: mild erythema on the distal aspect no pretibial edema, no calf tenderness Neuro- alert, oriented x 3;no gross focal deficits Skin- warm & dry Laboratory Results: Last 24 Hours Test 10/08/16 20:12 10/09/16 06:59 10/09/16 07:25 10/09/16 11:50 Bedside Glucose 144 mg/dl 145 mg/dl 175 mg/dl White Blood Count 16.21 K/uL Red Blood Count 2.99 M/uL Hemoglobin 9.2 g/dL Hematocrit 29.5 % Mean Corpuscular Volume 98.7 fL Mean Corpuscular Hemoglobin 30.8 pg Mean Corpuscular Hemoglobin Concent 31.2 g/dl Platelet Count 259 K/uL Mean Platelet Volume 10.2 fL Neutrophils (%) (Auto) 69.9 % Lymphocytes (%) (Auto) 21.3 % Monocytes (%) (Auto) 6.1 % Eosinophils (%) (Auto) 1.7 % Basophils (%) (Auto) 0.4 % Neutrophils # (Auto) 11.33 K/uL Lymphocytes # (Auto) 3.45 K/uL Monocytes # (Auto) 0.99 K/uL Eosinophils # (Auto) 0.28 K/uL Basophils # (Auto) 0.07 K/uL RDW Standard Deviation 56.7 fL RDW Coefficient of Variation 16.0 % Immature Granulocyte % (Auto) 0.6 % Immature Granulocyte # (Auto) 0.09 K/uL Sodium Level 134 mmol/L Potassium Level 4.9 mmol/L Chloride Level 98 mmol/L Carbon Dioxide Level 26 mmol/L Anion Gap 10.0 mmol/L Blood Urea Nitrogen 41 mg/dl Creatinine 6.90 mg/dl Est Creatinine Clear Calc Drug Dose 11.9 ml/min Estimated GFR () 7.4 Estimated GFR (Non- 6.4 BUN/Creatinine Ratio 6.0 Random Glucose 149 mg/dl Calcium Level 8.4 mg/dl Iron Level 36 mcg/dl Total Iron Binding Capacity 194 mcg/dl Transferrin 156 mg/dl Transferrin % Saturation 16 % Ferritin 892.8 ng/ml Vitamin B12 Level 394 pg/mL Folate 5.04 ng/mL Test 10/09/16 16:09 Bedside Glucose 175 mg/dl Assessment & Plan 50 year old female with history of CHF Diastolic type, CAD s/p Stent, DM 2, ESRD presenting with hematemesis. HEMATEMESIS EGD UNREVEALING - no recurrence so far - Hg 12--> 10.7--> 9.6--> 8.9- stable - s/p EGD: no source of bleeding found - continue Protonix BID diet resumed - no recurrence resumed Aspirin ELEVATED CARDIAC MARKERS HISTORY OF CAD, STENT - no cardiac symptoms, but levels higher than baseline - EKG no signs of acute ischemia - Cardiology consulted - resume Aspirin continue Imdur, Metoprolol ELEVATED LACTIC ACID - resolved CHF DIASTOLIC TYPE euvolemic DM 2 Lantus ISS - monitor ESRD Dr. Prakash consulted for HD LEFT THUMB NUMBNESS, DISCOLORATION appreciate Dr. Luz's recommendations RIGHT GREAT TOE ESCHAR, SCALING Wound care consulted DVT prophylaxis SCDs ambulation Disposition pending possible dc in AM Current Inpatient Medications: Current Inpatient Medications Medications (Trade) Dose Ordered Sig/Bladimir Route Start Time Stop Time Status Last Admin Dose Admin Insulin Glargine (Lantus Solostar Pen) 5 unit BID SC 10/06/16 09:00 10/09/16 08:07 5 UNIT Glucose (Glucose 40% Gel) 15-30 GRAMS 15 GRAMS... UD PRN PO 10/05/16 23:45 11/04/16 23:44 Glucose (Glucose Chew Tab) 4-8 Tablets 4 Tabl... UD PRN PO 10/05/16 23:45 11/04/16 23:44 Dextrose (Dextrose 50% 50ML Syringe) 25-50ML OF 50% DW IV FOR... UD PRN IV 10/05/16 23:45 11/04/16 23:44 Glucagon (Glucagon Inj) 1 mg UD PRN SQ 10/05/16 23:45 11/04/16 23:44 Hydromorphone HCl (Dilaudid Inj) 0.5 mg Q3H PRN IV 10/06/16 00:15 10/20/16 00:14 10/06/16 00:20 0.5 MG Ondansetron HCl 4 mg 4 mg Q6H PRN IV 10/06/16 00:15 11/05/16 00:14 10/06/16 10:43 4 MG Promethazine HCl/ Sodium Chloride (Phenergan Inj/ Nss 50ml) 50.5 ml @ 204 mls/hr Q6H PRN IV 10/06/16 00:15 11/05/16 00:14 Lorazepam (Ativan Inj) 0.5 mg Q4H PRN IV 10/06/16 00:15 11/05/16 00:14 Miscellaneous (Iv Fluids Completed) 1 ea PRN PRN N/A 10/06/16 00:15 10/06/17 00:14 Acetaminophen (Tylenol Tab) 650 mg Q4H PRN PO 10/06/16 00:15 11/05/16 00:14 10/09/16 19:23 650 MG Nitroglycerin (Nitrostat Tab) 0.4 mg UD PRN SL 10/06/16 00:15 11/05/16 00:14 Insulin Aspart (novoLOG ASPART) SLIDING SCALE If C... ACHS SC 10/06/16 07:00 11/05/16 06:59 10/09/16 16:53 5 UNITS Atorvastatin Calcium (Lipitor Tab) 40 mg DAILY PO 10/06/16 09:00 11/05/16 08:59 10/09/16 07:59 40 MG Calcium Acetate (Phoslo Cap) 667 mg TIDM PO 10/06/16 07:30 11/05/16 07:29 10/09/16 16:51 667 MG Isosorbide Mononitrate (Imdur Ext Rel Tab) 60 mg QAM PO 10/06/16 09:00 11/05/16 08:59 10/09/16 08:00 60 MG Isosorbide Mononitrate (Imdur Ext Rel Tab) 30 mg QAM PO 10/06/16 09:00 11/05/16 08:59 10/09/16 07:59 30 MG Tramadol HCl (Ultram Tab) not relieved by tylenol @ Q6H PRN PO 10/06/16 00:15 11/05/16 00:14 Metoprolol Tartrate (Lopressor Tab) 50 mg BID PO 10/06/16 09:00 11/05/16 08:59 10/09/16 07:59 50 MG Menthol (Nice Lucinda) 1 lucinda PRN PRN PO 10/06/16 05:15 11/05/16 05:14 Sertraline HCl (Zoloft Tab) 100 mg HS PO 10/07/16 21:00 11/06/16 20:59 10/08/16 21:10 100 MG Aspirin 81 mg 81 mg DAILY PO 10/09/16 09:00 11/08/16 08:59 10/09/16 07:58 81 MG Pantoprazole Sodium/Syringe (Protonix Inj/ Syringe) 10 ml @ 5 mls/min DAILY@09,21 IV 10/08/16 21:00 11/07/16 20:59 10/09/16 09:59 5 MLS/MIN Benzocaine (Orajel 2% Oral Gel) 1 appln TID PRN MT 10/08/16 17:30 11/07/16 17:29
[2016-10-09] MEDS: SERTRALINE HCL 100 MG TAB PO SCH (21:27)
--- NOTE | 2016-10-09 21:31 | DIAGNOSTIC IMAGING REPORT ---
RIGHT HIP UNILATERAL 2 VIEWS CLINICAL HISTORY: Right hip pain. COMPARISON STUDY: None. FINDINGS: Mild osteoarthritis within the right hip. No fracture or dislocation within the right hip. The visualized pelvic bones are intact. Chronic calcifications at the distal insertion of the gluteus medius tendon. Vascular calcifications are noted. IMPRESSION: No fracture or dislocation within the right hip. Electronically signed by: Jose Corona M.D. 10/09/2016 9:30 PM Dictated Date/Time: 10/09/2016 9:29 PM
[2016-10-10 00:24] VITALS: BP 158/81; PULSE 63; TEMP 36.6; O2SAT 99
[2016-10-10] MEDS: ONDANSETRON INJ 2 MG/ML 2 ML VIAL IV PRN (02:21)
[2016-10-10 06:20] LABS: BASO % 0.2 %; BASO ABS # 0.03 K/uL (0-0.2); EOS % 2.6 %; HEMATOCRIT 27.3 % (37-47); IG% 0.5 %; LYMPH % 21.7 %; LYMPH ABS # 2.84 K/uL (1.2-3.4); MEAN CELL VOLUME 96.1 fL (80-100); MEAN CORPUSCULAR HGB CONC 32.2 g/dl (32-36); MEAN PLATELET VOLUME 10.4 fL (7.4-10.4); MONO % 8.7 %; NEUT % 66.3 %; PLATELET COUNT 285 K/uL (130-400); RED BLOOD COUNT 2.84 M/uL (4.2-5.4); WHITE BLOOD COUNT 13.06 K/uL (4.8-10.8)
[2016-10-10 06:50] LABS: ANISOCYTOSIS PRESENT; COMPLETE YES
[2016-10-10 07:06] LABS: BUN/CREATININE RATIO 7.3 (10-20); CALCIUM 8.3 mg/dl (8.5-10.1); CREATININE 8.7 mg/dl (0.60-1.20)
[2016-10-10 07:56] VITALS: BP 136/74; PULSE 57; TEMP 36.6; O2SAT 100
[2016-10-10] MEDS: CALCIUM ACETATE 667MG GELCAP PO SCH ×3 (08:12→17:05)
[2016-10-10] MEDS: METOPROLOL TARTRATE 25 MG TAB PO SCH ×2 (08:13→21:23)
[2016-10-10] MEDS: ATORVASTATIN 40 MG TAB PO SCH (08:13)
[2016-10-10] MEDS: ASPIRIN 81 MG ECTAB PO SCH (08:13)
[2016-10-10] MEDS: ISOSORBIDE MONONITRATE 60 MG TABCR PO SCH (08:14)
[2016-10-10] MEDS: ISOSORBIDE MONONITRATE 30 MG TABCR PO SCH (08:14)
[2016-10-10] MEDS: INSULIN ASPART 100 UNITS/ML 3 ML PEN SC SCH ×4 (08:24→21:00)
[2016-10-10] MEDS: INSULIN GLARGINE SOLOSTAR 100 UNITS/ML 3 ML PEN SC SCH ×2 (08:24→21:25)
[2016-10-10] MEDS: PANTOprazole INJ 40 MG in SYRINGE 0 ML IV SCH (08:53)
--- NOTE | 2016-10-10 15:24 | Progress Note ---
Medicine Progress Note Date & Time of Visit: Oct 10, 2016 at 15:19. Subjective patient seen resting in bed states she feels weak today, like she just had dialysis also has persistent right hip pain, worse with movement denies other symptoms Objective Last 8 Hrs Date Time Temp Pulse Resp B/P Pulse Ox O2 Delivery O2 Flow Rate FiO2 10/10/16 08:30 Room Air 10/10/16 07:56 36.6 57 18 136/74 100 Nasal Cannula 3.0 Physical Exam: General- oriented x 3, not in distress Eyes- anicteric Lungs- clear breath sounds bilaterally, no rales/wheezes Heart- normal rate, regular rhythm; no murmurs Abdomen- normal bowel sounds, soft, nontender Extremities- right great toe: (+) scaling, eschar on the nail border and dorsal aspect, no tenderness Left thumb: mild erythema on the distal aspect no pretibial edema, no calf tenderness Neuro- alert, oriented x 3;no gross focal deficits Skin- warm & dry Right Hip- no swelling, warmth, hematoma mild tenderness on the upper inguinal region Laboratory Results: Last 24 Hours Test 10/09/16 16:09 10/09/16 20:33 10/10/16 05:07 10/10/16 07:33 Bedside Glucose 175 mg/dl 141 mg/dl 124 mg/dl White Blood Count 13.06 K/uL Red Blood Count 2.84 M/uL Hemoglobin 8.8 g/dL Hematocrit 27.3 % Mean Corpuscular Volume 96.1 fL Mean Corpuscular Hemoglobin 31.0 pg Mean Corpuscular Hemoglobin Concent 32.2 g/dl Platelet Count 285 K/uL Mean Platelet Volume 10.4 fL Neutrophils (%) (Auto) 66.3 % Lymphocytes (%) (Auto) 21.7 % Monocytes (%) (Auto) 8.7 % Eosinophils (%) (Auto) 2.6 % Basophils (%) (Auto) 0.2 % Neutrophils # (Auto) 8.65 K/uL Lymphocytes # (Auto) 2.84 K/uL Monocytes # (Auto) 1.13 K/uL Eosinophils # (Auto) 0.34 K/uL Basophils # (Auto) 0.03 K/uL RDW Standard Deviation 55.2 fL RDW Coefficient of Variation 15.7 % Immature Granulocyte % (Auto) 0.5 % Immature Granulocyte # (Auto) 0.07 K/uL Basophilic Stippling 1+ Anisocytosis PRESENT Sodium Level 137 mmol/L Potassium Level 5.0 mmol/L Chloride Level 101 mmol/L Carbon Dioxide Level 25 mmol/L Anion Gap 11.0 mmol/L Blood Urea Nitrogen 63 mg/dl Creatinine 8.70 mg/dl Est Creatinine Clear Calc Drug Dose 9.5 ml/min Estimated GFR () 5.6 Estimated GFR (Non- 4.8 BUN/Creatinine Ratio 7.3 Random Glucose 125 mg/dl Calcium Level 8.3 mg/dl Test 10/10/16 11:41 Bedside Glucose 167 mg/dl Assessment & Plan 50 year old female with history of CHF Diastolic type, CAD s/p Stent, DM 2, ESRD presenting with hematemesis. HEMATEMESIS EGD UNREVEALING - no recurrence so far - Hg 12--> 10.7--> 9.6--> 8.9- stable - s/p EGD: no source of bleeding found pathology: A. DUODENUM, BIOPSY: NO DIAGNOSTIC ABNORMALITY. B. STOMACH, BIOPSY: 1. MILD CHRONIC GASTRITIS. 2. NO SIGNIFICANT ACTIVITY (ACUTE INFLAMMATION) IDENTIFIED. 3. IMMUNOSTAIN FOR HELICOBACTER PYLORI: NEGATIVE. C. GE JUNCTION, BIOPSY: 1. ULCERATED, IRREGULAR SQUAMOUS MUCOSA. 2. ORGANISM STAINS ARE PENDING. 3. SEE COMMENT. - continue Protonix BID diet resumed - no recurrence resumed Aspirin ELEVATED CARDIAC MARKERS HISTORY OF CAD, STENT - no cardiac symptoms, but levels higher than baseline - EKG no signs of acute ischemia - Cardiology consulted - resume Aspirin continue Imdur, Metoprolol ELEVATED LACTIC ACID - resolved RIGHT HIP PAIN xray: no fractures or dislocation affecting mobility consult Ortho CHF DIASTOLIC TYPE euvolemic DM 2 Lantus ISS - monitor ESRD Dr. Prakash consulted for HD LEFT THUMB NUMBNESS, DISCOLORATION appreciate Dr. Luz's recommendations RIGHT GREAT TOE ESCHAR, SCALING Wound care consulted DVT prophylaxis SCDs ambulation Disposition pending possible dc in AM Current Inpatient Medications: Current Inpatient Medications Medications (Trade) Dose Ordered Sig/Bladimir Route Start Time Stop Time Status Last Admin Dose Admin Insulin Glargine (Lantus Solostar Pen) 5 unit BID SC 10/06/16 09:00 10/10/16 08:24 5 UNIT Glucose (Glucose 40% Gel) 15-30 GRAMS 15 GRAMS... UD PRN PO 10/05/16 23:45 11/04/16 23:44 Glucose (Glucose Chew Tab) 4-8 Tablets 4 Tabl... UD PRN PO 10/05/16 23:45 11/04/16 23:44 Dextrose (Dextrose 50% 50ML Syringe) 25-50ML OF 50% DW IV FOR... UD PRN IV 10/05/16 23:45 11/04/16 23:44 Glucagon (Glucagon Inj) 1 mg UD PRN SQ 10/05/16 23:45 11/04/16 23:44 Hydromorphone HCl (Dilaudid Inj) 0.5 mg Q3H PRN IV 10/06/16 00:15 10/20/16 00:14 10/06/16 00:20 0.5 MG Ondansetron HCl 4 mg 4 mg Q6H PRN IV 10/06/16 00:15 11/05/16 00:14 10/10/16 02:21 4 MG Promethazine HCl/ Sodium Chloride (Phenergan Inj/ Nss 50ml) 50.5 ml @ 204 mls/hr Q6H PRN IV 10/06/16 00:15 11/05/16 00:14 Lorazepam (Ativan Inj) 0.5 mg Q4H PRN IV 10/06/16 00:15 11/05/16 00:14 Miscellaneous (Iv Fluids Completed) 1 ea PRN PRN N/A 10/06/16 00:15 10/06/17 00:14 Acetaminophen (Tylenol Tab) 650 mg Q4H PRN PO 10/06/16 00:15 11/05/16 00:14 10/09/16 19:23 650 MG Nitroglycerin (Nitrostat Tab) 0.4 mg UD PRN SL 10/06/16 00:15 11/05/16 00:14 Insulin Aspart (novoLOG ASPART) SLIDING SCALE If C... ACHS SC 10/06/16 07:00 11/05/16 06:59 10/10/16 12:11 6 UNITS Atorvastatin Calcium (Lipitor Tab) 40 mg DAILY PO 10/06/16 09:00 11/05/16 08:59 10/10/16 08:13 40 MG Calcium Acetate (Phoslo Cap) 667 mg TIDM PO 10/06/16 07:30 11/05/16 07:29 10/10/16 12:10 667 MG Isosorbide Mononitrate (Imdur Ext Rel Tab) 60 mg QAM PO 10/06/16 09:00 11/05/16 08:59 10/10/16 08:14 60 MG Isosorbide Mononitrate (Imdur Ext Rel Tab) 30 mg QAM PO 10/06/16 09:00 11/05/16 08:59 10/10/16 08:14 30 MG Tramadol HCl (Ultram Tab) not relieved by tylenol @ Q6H PRN PO 10/06/16 00:15 11/05/16 00:14 Metoprolol Tartrate (Lopressor Tab) 50 mg BID PO 10/06/16 09:00 11/05/16 08:59 10/10/16 08:13 50 MG Menthol (Nice Lucinda) 1 lucinda PRN PRN PO 10/06/16 05:15 11/05/16 05:14 Sertraline HCl (Zoloft Tab) 100 mg HS PO 10/07/16 21:00 11/06/16 20:59 10/09/16 21:27 100 MG Aspirin 81 mg 81 mg DAILY PO 10/09/16 09:00 11/08/16 08:59 10/10/16 08:13 81 MG Pantoprazole Sodium/Syringe (Protonix Inj/ Syringe) 10 ml @ 5 mls/min DAILY@09,21 IV 10/08/16 21:00 11/07/16 20:59 10/10/16 08:53 5 MLS/MIN Benzocaine (Orajel 2% Oral Gel) 1 appln TID PRN MT 10/08/16 17:30 11/07/16 17:29
[2016-10-10 15:45] VITALS: BP 145/76; PULSE 56; TEMP 36.8; O2SAT 96
[2016-10-10 16:00] VITALS: O2SAT 96
[2016-10-10] MEDS: SERTRALINE HCL 100 MG TAB PO SCH (21:22)
[2016-10-10] MEDS: PANTOprazole SOD 40 MG TAB PO SCH (21:22)
[2016-10-10 21:30] VITALS: BP 155/74; PULSE 63
[2016-10-10] MEDS: ACETAMINOPHEN 325 MG TAB PO PRN (22:22)
[2016-10-10 22:54] VITALS: BP 155/78; PULSE 65; TEMP 36.4; O2SAT 99
[2016-10-11] VITALS (19 sets, daily range): BP systolic 142–179; BP diastolic 71–96; PULSE 55–65; TEMP 36.4–37.7; O2SAT 96–100
[2016-10-11 05:40] LABS: BASO % 0.2 %; BASO ABS # 0.02 K/uL (0-0.2); EOS % 2.4 %; HEMATOCRIT 26.4 % (37-47); IG% 0.4 %; LYMPH % 24.6 %; LYMPH ABS # 2.95 K/uL (1.2-3.4); MEAN CELL VOLUME 97.4 fL (80-100); MEAN CORPUSCULAR HGB CONC 31.8 g/dl (32-36); MEAN PLATELET VOLUME 10.3 fL (7.4-10.4); MONO % 9.5 %; NEUT % 62.9 %; PLATELET COUNT 305 K/uL (130-400); RED BLOOD COUNT 2.71 M/uL (4.2-5.4); WHITE BLOOD COUNT 11.99 K/uL (4.8-10.8)
[2016-10-11 06:07] LABS: COMPLETE YES
[2016-10-11 06:25] LABS: BUN/CREATININE RATIO 6.8 (10-20); CALCIUM 8.5 mg/dl (8.5-10.1); POTASSIUM 5.1 mmol/L (3.5-5.1)
--- NOTE | 2016-10-11 07:09 | Nephrology Progress Note ---
Nephrology Progress Note Date of Service: Oct 11, 2016. Subjective 50 yo female with esrd with frequent hospitilizations. pt admitted with n/v with heme positive emesis. EGD was negative. pt was doing well with no more n/v but had right hip pain. xrays are good. ortho consult pending. Objective Date Time Temp Pulse Resp B/P Pulse Ox O2 Delivery O2 Flow Rate FiO2 10/11/16 00:00 Nasal Cannula 2.0 10/10/16 22:54 36.4 65 18 155/78 99 Room Air 2.0 10/10/16 21:30 63 155/74 10/10/16 20:00 Room Air 2.0 10/10/16 16:00 96 Room Air 10/10/16 15:45 36.8 56 18 145/76 96 Room Air 10/10/16 08:30 Room Air 10/10/16 07:56 36.6 57 18 136/74 100 Nasal Cannula 3.0 Physical Exam: General-aaox3, obese Eyes-no scleral icterus ENT-mmm Neck-supple Lungs-clear Heart-regular Abdomen-bs+ s/nt/nd Extremities-no c/c/e Neuro-nonfocal Current Inpatient Medications Medications (Trade) Dose Ordered Sig/Bladimir Route Start Time Stop Time Status Last Admin Dose Admin Insulin Glargine (Lantus Solostar Pen) 5 unit BID SC 10/06/16 09:00 11/09/16 08:59 10/10/16 21:25 5 UNIT Glucose (Glucose 40% Gel) 15-30 GRAMS 15 GRAMS... UD PRN PO 10/05/16 23:45 11/04/16 23:44 Glucose (Glucose Chew Tab) 4-8 Tablets 4 Tabl... UD PRN PO 10/05/16 23:45 11/04/16 23:44 Dextrose (Dextrose 50% 50ML Syringe) 25-50ML OF 50% DW IV FOR... UD PRN IV 10/05/16 23:45 11/04/16 23:44 Glucagon (Glucagon Inj) 1 mg UD PRN SQ 10/05/16 23:45 11/04/16 23:44 Hydromorphone HCl (Dilaudid Inj) 0.5 mg Q3H PRN IV 10/06/16 00:15 10/20/16 00:14 10/06/16 00:20 0.5 MG Ondansetron HCl 4 mg 4 mg Q6H PRN IV 10/06/16 00:15 11/05/16 00:14 10/10/16 02:21 4 MG Promethazine HCl/ Sodium Chloride (Phenergan Inj/ Nss 50ml) 50.5 ml @ 204 mls/hr Q6H PRN IV 10/06/16 00:15 11/05/16 00:14 Lorazepam (Ativan Inj) 0.5 mg Q4H PRN IV 10/06/16 00:15 11/05/16 00:14 Miscellaneous (Iv Fluids Completed) 1 ea PRN PRN N/A 10/06/16 00:15 10/06/17 00:14 Acetaminophen (Tylenol Tab) 650 mg Q4H PRN PO 10/06/16 00:15 11/05/16 00:14 10/10/16 22:22 650 MG Nitroglycerin (Nitrostat Tab) 0.4 mg UD PRN SL 10/06/16 00:15 11/05/16 00:14 Insulin Aspart (novoLOG ASPART) SLIDING SCALE If C... ACHS SC 10/06/16 07:00 11/05/16 06:59 10/10/16 17:11 4 UNITS Atorvastatin Calcium (Lipitor Tab) 40 mg DAILY PO 10/06/16 09:00 11/05/16 08:59 10/10/16 08:13 40 MG Calcium Acetate (Phoslo Cap) 667 mg TIDM PO 10/06/16 07:30 11/05/16 07:29 10/10/16 17:05 667 MG Isosorbide Mononitrate (Imdur Ext Rel Tab) 60 mg QAM PO 10/06/16 09:00 11/05/16 08:59 10/10/16 08:14 60 MG Isosorbide Mononitrate (Imdur Ext Rel Tab) 30 mg QAM PO 10/06/16 09:00 11/05/16 08:59 10/10/16 08:14 30 MG Tramadol HCl (Ultram Tab) not relieved by tylenol @ Q6H PRN PO 10/06/16 00:15 11/05/16 00:14 Metoprolol Tartrate (Lopressor Tab) 50 mg BID PO 10/06/16 09:00 11/05/16 08:59 10/10/16 21:23 50 MG Menthol (Nice Lucinda) 1 lucinda PRN PRN PO 10/06/16 05:15 11/05/16 05:14 Sertraline HCl (Zoloft Tab) 100 mg HS PO 10/07/16 21:00 11/06/16 20:59 10/10/16 21:22 100 MG Aspirin (Ecotrin Tab) 81 mg DAILY PO 10/09/16 09:00 11/08/16 08:59 10/10/16 08:13 81 MG Benzocaine (Orajel 2% Oral Gel) 1 appln TID PRN MT 10/08/16 17:30 11/07/16 17:29 Pantoprazole Sodium (Protonix Tab) 40 mg BID PO 10/10/16 21:00 11/09/16 20:59 10/10/16 21:22 40 MG Heparin Sodium (Porcine) (Heparin Iv Bolus) 1,000 unit ONE IV 10/11/16 08:00 10/11/16 08:01 Heparin Sodium (Porcine) (Heparin Iv Bolus) 400 unit Q1H IV 10/11/16 08:00 10/11/16 10:01 Epoetin Christopher (Procrit Inj) 10,000 units 0800 IV. 10/11/16 08:00 10/11/16 14:00 Last 24 Hours Test 10/10/16 07:33 10/10/16 11:41 10/10/16 16:46 10/10/16 20:47 Bedside Glucose 124 mg/dl 167 mg/dl 152 mg/dl 153 mg/dl Test 10/11/16 05:19 White Blood Count 11.99 K/uL Red Blood Count 2.71 M/uL Hemoglobin 8.4 g/dL Hematocrit 26.4 % Mean Corpuscular Volume 97.4 fL Mean Corpuscular Hemoglobin 31.0 pg Mean Corpuscular Hemoglobin Concent 31.8 g/dl Platelet Count 305 K/uL Mean Platelet Volume 10.3 fL Neutrophils (%) (Auto) 62.9 % Lymphocytes (%) (Auto) 24.6 % Monocytes (%) (Auto) 9.5 % Eosinophils (%) (Auto) 2.4 % Basophils (%) (Auto) 0.2 % Neutrophils # (Auto) 7.54 K/uL Lymphocytes # (Auto) 2.95 K/uL Monocytes # (Auto) 1.14 K/uL Eosinophils # (Auto) 0.29 K/uL Basophils # (Auto) 0.02 K/uL RDW Standard Deviation 55.3 fL RDW Coefficient of Variation 16.1 % Immature Granulocyte % (Auto) 0.4 % Immature Granulocyte # (Auto) 0.05 K/uL Red Blood Cell Morphology Unremarkable Sodium Level 137 mmol/L Potassium Level 5.1 mmol/L Chloride Level 100 mmol/L Carbon Dioxide Level 22 mmol/L Anion Gap 15.0 mmol/L Blood Urea Nitrogen 75 mg/dl Creatinine 11.00 mg/dl Est Creatinine Clear Calc Drug Dose 7.5 ml/min Estimated GFR () 4.2 Estimated GFR (Non- 3.6 BUN/Creatinine Ratio 6.8 Random Glucose 88 mg/dl Calcium Level 8.5 mg/dl Assessment & Plan ESRD-for dialysis today. continue m-w- dialysis. lungs cta and no edema but pt feels fluid overloaded. will diurese on dialysis today since eating and drinking well. Anemia of renal Failure-will continue procrit for goal hg of 10 to 11.
[2016-10-11] MEDS ORDERED: HEPARIN SOD (PORCINE) 1000 UNIT/ML 10 ML VIAL IV SCH (08:00)
[2016-10-11] MEDS ORDERED: EPOETIN ALFA 10,000 UNITS/ML VIAL IV. SCH (08:00)
[2016-10-11] MEDS: CALCIUM ACETATE 667MG GELCAP PO SCH ×3 (08:52→17:32)
[2016-10-11] MEDS: INSULIN ASPART 100 UNITS/ML 3 ML PEN SC SCH ×4 (09:01→20:09)
--- NOTE | 2016-10-11 09:18 | DIAGNOSTIC IMAGING REPORT ---
PELVIS 1 OR 2 VIEW ROUTINE CLINICAL HISTORY: Right Iliac Crest pain/groin pain COMPARISON STUDY: Right hip 10/09/2016. FINDINGS: No fracture or dislocation within the pelvis or hips. The sacrum is intact. Vascular calcifications are noted. Mild cartilage space narrowing within the bilateral hips consistent with degenerative change. There is also mild osteoarthritis within the sacroiliac joints and symphysis pubis. Calcifications at the distal insertion of the right gluteus medius tendon. IMPRESSION: 1. 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 2. No fractures. Electronically signed by: Jose Corona M.D. 10/11/2016 9:17 AM Dictated Date/Time: 10/11/2016 9:15 AM
[2016-10-11] MEDS: HEPARIN SOD (PORCINE) 1000 UNIT/ML 10 ML VIAL IV SCH ×2 (14:15→15:15)
--- NOTE | 2016-10-11 16:50 | Orthopedic Progress Note ---
Orthopedic Progress Note Date of Service Oct 11, 2016. Subjective Reports: chest pain Additional Notes: PT NOT ROOM WILL CHECK IN AM Objective Date Time Temp Pulse Resp B/P Pulse Ox O2 Delivery O2 Flow Rate FiO2 10/11/16 13:10 36.4 65 175/92 10/11/16 08:30 96 Nasal Cannula 10/11/16 00:00 Nasal Cannula 2.0 10/10/16 22:54 36.4 65 18 155/78 99 Room Air 2.0 10/10/16 21:30 63 155/74 10/10/16 20:00 Room Air 2.0 Laboratory Results 24 Hours: Test 10/11/16 05:19 White Blood Count 11.99 K/uL Red Blood Count 2.71 M/uL Hemoglobin 8.4 g/dL Hematocrit 26.4 % Mean Corpuscular Volume 97.4 fL Mean Corpuscular Hemoglobin 31.0 pg Mean Corpuscular Hemoglobin Concent 31.8 g/dl Platelet Count 305 K/uL Mean Platelet Volume 10.3 fL Neutrophils (%) (Auto) 62.9 % Lymphocytes (%) (Auto) 24.6 % Monocytes (%) (Auto) 9.5 % Eosinophils (%) (Auto) 2.4 % Basophils (%) (Auto) 0.2 % Neutrophils # (Auto) 7.54 K/uL Lymphocytes # (Auto) 2.95 K/uL Monocytes # (Auto) 1.14 K/uL Eosinophils # (Auto) 0.29 K/uL Basophils # (Auto) 0.02 K/uL
[2016-10-11] MEDS: METOPROLOL TARTRATE 25 MG TAB PO SCH (20:08)
[2016-10-11] MEDS: TRAMADOL HCL 50 MG TAB PO PRN (20:08)
[2016-10-11] MEDS: SERTRALINE HCL 100 MG TAB PO SCH (20:09)
[2016-10-11] MEDS: PANTOprazole SOD 40 MG TAB PO SCH (20:09)
[2016-10-11] MEDS: INSULIN GLARGINE SOLOSTAR 100 UNITS/ML 3 ML PEN SC SCH (20:11)
--- NOTE | 2016-10-11 20:17 | Progress Note ---
Medicine Progress Note Date & Time of Visit: Oct 11, 2016 at 20:12. Subjective patient states she feels tired today s/p HD today still has right hip pain worse with movement, somewhat less today has left thumb pain no other symptoms Objective Last 8 Hrs Date Time Temp Pulse Resp B/P Pulse Ox O2 Delivery O2 Flow Rate FiO2 10/11/16 17:26 37.1 64 20 179/96 100 Room Air 10/11/16 17:18 Nasal Cannula 10/11/16 17:08 36.5 64 156/86 10/11/16 16:30 59 150/82 10/11/16 16:15 58 158/84 10/11/16 16:00 60 159/79 10/11/16 15:45 56 150/86 10/11/16 15:30 55 146/71 10/11/16 15:15 55 158/82 10/11/16 15:00 59 158/84 10/11/16 14:45 58 142/79 10/11/16 14:30 57 146/85 10/11/16 14:15 59 155/77 10/11/16 14:00 63 146/81 10/11/16 13:45 61 157/87 10/11/16 13:30 59 169/87 10/11/16 13:18 62 170/87 10/11/16 13:10 36.4 65 175/92 Physical Exam: General- oriented x 3, not in distress Lungs- clear breath sounds bilaterally, no rales/wheeze Heart- normal rate, regular rhythm; no murmurs Abdomen- normal bowel sounds, soft, nontender Extremities- right great toe: (+) scaling, eschar on the nail border and dorsal aspect, no tenderness Left thumb: mild erythema on the distal aspect no pretibial edema, no calf tenderness Neuro- alert, oriented x 3;no gross focal deficits Skin- warm & dry Laboratory Results: Last 24 Hours Test 10/10/16 20:47 10/11/16 05:19 10/11/16 07:38 10/11/16 11:36 Bedside Glucose 153 mg/dl 90 mg/dl 156 mg/dl White Blood Count 11.99 K/uL Red Blood Count 2.71 M/uL Hemoglobin 8.4 g/dL Hematocrit 26.4 % Mean Corpuscular Volume 97.4 fL Mean Corpuscular Hemoglobin 31.0 pg Mean Corpuscular Hemoglobin Concent 31.8 g/dl Platelet Count 305 K/uL Mean Platelet Volume 10.3 fL Neutrophils (%) (Auto) 62.9 % Lymphocytes (%) (Auto) 24.6 % Monocytes (%) (Auto) 9.5 % Eosinophils (%) (Auto) 2.4 % Basophils (%) (Auto) 0.2 % Neutrophils # (Auto) 7.54 K/uL Lymphocytes # (Auto) 2.95 K/uL Monocytes # (Auto) 1.14 K/uL Eosinophils # (Auto) 0.29 K/uL Basophils # (Auto) 0.02 K/uL RDW Standard Deviation 55.3 fL RDW Coefficient of Variation 16.1 % Immature Granulocyte % (Auto) 0.4 % Immature Granulocyte # (Auto) 0.05 K/uL Red Blood Cell Morphology Unremarkable Sodium Level 137 mmol/L Potassium Level 5.1 mmol/L Chloride Level 100 mmol/L Carbon Dioxide Level 22 mmol/L Anion Gap 15.0 mmol/L Blood Urea Nitrogen 75 mg/dl Creatinine 11.00 mg/dl Est Creatinine Clear Calc Drug Dose 7.5 ml/min Estimated GFR () 4.2 Estimated GFR (Non- 3.6 BUN/Creatinine Ratio 6.8 Random Glucose 88 mg/dl Calcium Level 8.5 mg/dl Test 10/11/16 17:19 Bedside Glucose 118 mg/dl Assessment & Plan 50 year old female with history of CHF Diastolic type, CAD s/p Stent, DM 2, ESRD presenting with hematemesis. HEMATEMESIS - EGD UNREVEALING - no recurrence so far - Hg 12--> 10.7--> 9.6--> 8.9/8.4 - s/p EGD: no source of bleeding found pathology: A. DUODENUM, BIOPSY: NO DIAGNOSTIC ABNORMALITY. B. STOMACH, BIOPSY: 1. MILD CHRONIC GASTRITIS. 2. NO SIGNIFICANT ACTIVITY (ACUTE INFLAMMATION) IDENTIFIED. 3. IMMUNOSTAIN FOR HELICOBACTER PYLORI: NEGATIVE. C. GE JUNCTION, BIOPSY: 1. ULCERATED, IRREGULAR SQUAMOUS MUCOSA. 2. ORGANISM STAINS ARE PENDING. 3. SEE COMMENT. -no recurrence of hematemesis - continue Protonix BID diet resumed resumed Aspirin ELEVATED CARDIAC MARKERS HISTORY OF CAD, STENT - no cardiac symptoms, but levels higher than baseline - EKG no signs of acute ischemia - Cardiology consulted - resume Aspirin continue Imdur, Metoprolol ELEVATED LACTIC ACID - resolved RIGHT HIP PAIN xray: no fractures or dislocation affecting mobility consulted Ortho, awaiting recommendations PT/OT eval CHF DIASTOLIC TYPE euvolemic DM 2 Lantus ISS - monitor ESRD Dr. Prakash consulted for HD LEFT THUMB NUMBNESS, DISCOLORATION appreciate Dr. Luz's recommendations RIGHT GREAT TOE ESCHAR, SCALING Wound care consulted DVT prophylaxis SCDs ambulation Disposition pending lives at home possible dc in 1-2 days Current Inpatient Medications: Current Inpatient Medications Medications (Trade) Dose Ordered Sig/Bladimir Route Start Time Stop Time Status Last Admin Dose Admin Insulin Glargine (Lantus Solostar Pen) 5 unit BID SC 10/06/16 09:00 11/09/16 08:59 10/10/16 21:25 5 UNIT Glucose (Glucose 40% Gel) 15-30 GRAMS 15 GRAMS... UD PRN PO 10/05/16 23:45 11/04/16 23:44 Glucose (Glucose Chew Tab) 4-8 Tablets 4 Tabl... UD PRN PO 10/05/16 23:45 11/04/16 23:44 Dextrose (Dextrose 50% 50ML Syringe) 25-50ML OF 50% DW IV FOR... UD PRN IV 10/05/16 23:45 11/04/16 23:44 Glucagon (Glucagon Inj) 1 mg UD PRN SQ 10/05/16 23:45 11/04/16 23:44 Hydromorphone HCl (Dilaudid Inj) 0.5 mg Q3H PRN IV 10/06/16 00:15 10/20/16 00:14 10/06/16 00:20 0.5 MG Ondansetron HCl 4 mg 4 mg Q6H PRN IV 10/06/16 00:15 11/05/16 00:14 10/10/16 02:21 4 MG Promethazine HCl/ Sodium Chloride (Phenergan Inj/ Nss 50ml) 50.5 ml @ 204 mls/hr Q6H PRN IV 10/06/16 00:15 11/05/16 00:14 Lorazepam (Ativan Inj) 0.5 mg Q4H PRN IV 10/06/16 00:15 11/05/16 00:14 Miscellaneous (Iv Fluids Completed) 1 ea PRN PRN N/A 10/06/16 00:15 10/06/17 00:14 Acetaminophen (Tylenol Tab) 650 mg Q4H PRN PO 10/06/16 00:15 11/05/16 00:14 10/10/16 22:22 650 MG Nitroglycerin (Nitrostat Tab) 0.4 mg UD PRN SL 10/06/16 00:15 11/05/16 00:14 Insulin Aspart (novoLOG ASPART) SLIDING SCALE If C... ACHS SC 10/06/16 07:00 11/05/16 06:59 10/11/16 18:33 1 UNITS Atorvastatin Calcium (Lipitor Tab) 40 mg DAILY PO 10/06/16 09:00 11/05/16 08:59 10/10/16 08:13 40 MG Calcium Acetate (Phoslo Cap) 667 mg TIDM PO 10/06/16 07:30 11/05/16 07:29 10/11/16 17:32 667 MG Isosorbide Mononitrate (Imdur Ext Rel Tab) 60 mg QAM PO 10/06/16 09:00 11/05/16 08:59 10/10/16 08:14 60 MG Isosorbide Mononitrate (Imdur Ext Rel Tab) 30 mg QAM PO 10/06/16 09:00 11/05/16 08:59 10/10/16 08:14 30 MG Tramadol HCl (Ultram Tab) not relieved by tylenol @ Q6H PRN PO 10/06/16 00:15 11/05/16 00:14 Metoprolol Tartrate (Lopressor Tab) 50 mg BID PO 10/06/16 09:00 11/05/16 08:59 10/10/16 21:23 50 MG Menthol (Nice Lucinda) 1 lucinda PRN PRN PO 10/06/16 05:15 11/05/16 05:14 Sertraline HCl (Zoloft Tab) 100 mg HS PO 10/07/16 21:00 11/06/16 20:59 10/10/16 21:22 100 MG Aspirin (Ecotrin Tab) 81 mg DAILY PO 10/09/16 09:00 11/08/16 08:59 10/10/16 08:13 81 MG Benzocaine (Orajel 2% Oral Gel) 1 appln TID PRN MT 10/08/16 17:30 11/07/16 17:29 Pantoprazole Sodium (Protonix Tab) 40 mg BID PO 10/10/16 21:00 11/09/16 20:59 10/10/16 21:22 40 MG
[2016-10-12 06:34] LABS: BASO % 0.3 %; BASO ABS # 0.03 K/uL (0-0.2); COMPLETE YES; EOS % 2.7 %; HEMATOCRIT 28.7 % (37-47); IG% 0.3 %; LYMPH % 25.8 %; LYMPH ABS # 2.43 K/uL (1.2-3.4); MEAN CELL VOLUME 95.7 fL (80-100); MEAN CORPUSCULAR HGB CONC 31.4 g/dl (32-36); MEAN PLATELET VOLUME 10.1 fL (7.4-10.4); MONO % 8.7 %; NEUT % 62.2 %; PLATELET COUNT 343 K/uL (130-400); WHITE BLOOD COUNT 9.42 K/uL (4.8-10.8)
[2016-10-12 07:15] VITALS: BP 147/95; PULSE 61; TEMP 36.4; O2SAT 98
[2016-10-12 07:21] LABS: BUN/CREATININE RATIO 5.7 (10-20); CALCIUM 8.7 mg/dl (8.5-10.1); CREATININE 7.2 mg/dl (0.60-1.20); POTASSIUM 4.6 mmol/L (3.5-5.1)
[2016-10-12] MEDS: ASPIRIN 81 MG ECTAB PO SCH (08:42)
[2016-10-12] MEDS: ISOSORBIDE MONONITRATE 30 MG TABCR PO SCH (08:43)
[2016-10-12] MEDS: ISOSORBIDE MONONITRATE 60 MG TABCR PO SCH (08:43)
[2016-10-12] MEDS: CALCIUM ACETATE 667MG GELCAP PO SCH ×3 (08:44→16:43)
[2016-10-12] MEDS: ATORVASTATIN 40 MG TAB PO SCH (08:44)
[2016-10-12] MEDS: METOPROLOL TARTRATE 25 MG TAB PO SCH ×2 (08:44→20:41)
[2016-10-12] MEDS: PANTOprazole SOD 40 MG TAB PO SCH ×2 (08:45→20:41)
[2016-10-12] MEDS: INSULIN GLARGINE SOLOSTAR 100 UNITS/ML 3 ML PEN SC SCH ×2 (08:48→20:38)
[2016-10-12] MEDS: INSULIN ASPART 100 UNITS/ML 3 ML PEN SC SCH ×4 (08:57→20:07)
[2016-10-12] MEDS: ACETAMINOPHEN 325 MG TAB PO PRN (10:46)
--- NOTE | 2016-10-12 14:45 | Progress Note ---
Medicine Progress Note Date & Time of Visit: Oct 12, 2016 at 14:40. Subjective patient seen resting in bed states right hip pain is worse today with ambulating no leg weakness or numbness denies nausea, melena other symptoms Objective Last 8 Hrs Date Time Temp Pulse Resp B/P Pulse Ox O2 Delivery O2 Flow Rate FiO2 10/12/16 11:00 Room Air 10/12/16 09:30 Room Air 10/12/16 07:15 36.4 61 18 147/95 98 Room Air Physical Exam: General- oriented x 3, not in distress Lungs- clear breath sounds bilaterally, no rales/wheeze Heart- normal rate, regular rhythm; no murmurs Abdomen- normal bowel sounds, non distended, soft, nontender Extremities- right great toe: (+) scaling, eschar on the nail border and dorsal aspect, no tenderness Left thumb: erythema on the distal aspect right index finger: small eschar on the distal aspect, non tender no pretibial edema, no calf tenderness Neuro- alert, oriented x 3;no gross focal deficits Skin- warm & dry Laboratory Results: Last 24 Hours Test 10/11/16 17:19 10/11/16 20:09 10/12/16 05:44 10/12/16 07:47 Bedside Glucose 118 mg/dl 134 mg/dl 113 mg/dl White Blood Count 9.42 K/uL Red Blood Count 3.00 M/uL Hemoglobin 9.0 g/dL Hematocrit 28.7 % Mean Corpuscular Volume 95.7 fL Mean Corpuscular Hemoglobin 30.0 pg Mean Corpuscular Hemoglobin Concent 31.4 g/dl Platelet Count 343 K/uL Mean Platelet Volume 10.1 fL Neutrophils (%) (Auto) 62.2 % Lymphocytes (%) (Auto) 25.8 % Monocytes (%) (Auto) 8.7 % Eosinophils (%) (Auto) 2.7 % Basophils (%) (Auto) 0.3 % Neutrophils # (Auto) 5.86 K/uL Lymphocytes # (Auto) 2.43 K/uL Monocytes # (Auto) 0.82 K/uL Eosinophils # (Auto) 0.25 K/uL Basophils # (Auto) 0.03 K/uL RDW Standard Deviation 55.8 fL RDW Coefficient of Variation 16.1 % Immature Granulocyte % (Auto) 0.3 % Immature Granulocyte # (Auto) 0.03 K/uL Sodium Level 137 mmol/L Potassium Level 4.6 mmol/L Chloride Level 99 mmol/L Carbon Dioxide Level 28 mmol/L Anion Gap 10.0 mmol/L Blood Urea Nitrogen 41 mg/dl Creatinine 7.20 mg/dl Est Creatinine Clear Calc Drug Dose 11.5 ml/min Estimated GFR () 7.0 Estimated GFR (Non- 6.1 BUN/Creatinine Ratio 5.7 Random Glucose 112 mg/dl Calcium Level 8.7 mg/dl Test 10/12/16 11:13 Bedside Glucose 203 mg/dl Assessment & Plan 50 year old female with history of CHF Diastolic type, CAD s/p Stent, DM 2, ESRD presenting with hematemesis. HEMATEMESIS - EGD UNREVEALING - no recurrence so far - Hg 12--> 10.7--> remained stable around 9 - 10/07/16 s/p EGD: no source of bleeding found pathology: A. DUODENUM, BIOPSY: NO DIAGNOSTIC ABNORMALITY. B. STOMACH, BIOPSY: 1. MILD CHRONIC GASTRITIS. 2. NO SIGNIFICANT ACTIVITY (ACUTE INFLAMMATION) IDENTIFIED. 3. IMMUNOSTAIN FOR HELICOBACTER PYLORI: NEGATIVE. C. GE JUNCTION, BIOPSY: 1. ULCERATED, IRREGULAR SQUAMOUS MUCOSA. 2. ORGANISM STAINS ARE PENDING. 3. SEE COMMENT. - continue Protonix BID diet resumed resumed Aspirin - no recurrence of hematemesis since admission Hg stable ELEVATED CARDIAC MARKERS HISTORY OF CAD, STENT - no cardiac symptoms, but levels higher than baseline - EKG no signs of acute ischemia - Cardiology consulted - resume Aspirin continue Imdur, Metoprolol ELEVATED LACTIC ACID - resolved RIGHT HIP PAIN xray: no fractures or dislocation increased pain today consulted Ortho, awaiting recommendations PT evals CHF DIASTOLIC TYPE euvolemic stable DM 2 Lantus ISS - monitor ESRD Dr. Prakash consulted for HD- m/w/f LEFT THUMB NUMBNESS, DISCOLORATION likely small vessel disease related consulted Dr. Luz outpatient ff up scheduled for 10/14/16 for Left arm AV fistula US RIGHT GREAT TOE ESCHAR, SCALING Wound care consulted DVT prophylaxis SCDs ambulation Disposition pending lives at home will need home health services possible dc in 1-2 days Current Inpatient Medications: Current Inpatient Medications Medications (Trade) Dose Ordered Sig/Bladimir Route Start Time Stop Time Status Last Admin Dose Admin Insulin Glargine (Lantus Solostar Pen) 5 unit BID SC 2/15/17 09:00 11/09/16 08:59 10/12/16 08:48 5 UNIT Glucose (Glucose 40% Gel) 15-30 GRAMS 15 GRAMS... UD PRN PO 10/05/16 23:45 11/04/16 23:44 Glucose (Glucose Chew Tab) 4-8 Tablets 4 Tabl... UD PRN PO 10/05/16 23:45 11/04/16 23:44 Dextrose (Dextrose 50% 50ML Syringe) 25-50ML OF 50% DW IV FOR... UD PRN IV 10/05/16 23:45 11/04/16 23:44 Glucagon (Glucagon Inj) 1 mg UD PRN SQ 10/05/16 23:45 11/04/16 23:44 Hydromorphone HCl (Dilaudid Inj) 0.5 mg Q3H PRN IV 10/06/16 00:15 10/20/16 00:14 10/06/16 00:20 0.5 MG Ondansetron HCl 4 mg 4 mg Q6H PRN IV 10/06/16 00:15 11/05/16 00:14 10/10/16 02:21 4 MG Promethazine HCl/ Sodium Chloride (Phenergan Inj/ Nss 50ml) 50.5 ml @ 204 mls/hr Q6H PRN IV 10/06/16 00:15 11/05/16 00:14 Lorazepam (Ativan Inj) 0.5 mg Q4H PRN IV 10/06/16 00:15 11/05/16 00:14 Miscellaneous (Iv Fluids Completed) 1 ea PRN PRN N/A 10/06/16 00:15 10/06/17 00:14 Acetaminophen (Tylenol Tab) 650 mg Q4H PRN PO 10/06/16 00:15 11/05/16 00:14 10/12/16 10:46 650 MG Nitroglycerin (Nitrostat Tab) 0.4 mg UD PRN SL 10/06/16 00:15 11/05/16 00:14 Insulin Aspart (novoLOG ASPART) SLIDING SCALE If C... ACHS SC 10/06/16 07:00 11/05/16 06:59 10/12/16 14:00 4 UNITS Atorvastatin Calcium (Lipitor Tab) 40 mg DAILY PO 10/06/16 09:00 11/05/16 08:59 10/12/16 08:44 40 MG Calcium Acetate (Phoslo Cap) 667 mg TIDM PO 10/06/16 07:30 11/05/16 07:29 10/12/16 11:56 667 MG Isosorbide Mononitrate (Imdur Ext Rel Tab) 60 mg QAM PO 10/06/16 09:00 11/05/16 08:59 10/12/16 08:43 60 MG Isosorbide Mononitrate (Imdur Ext Rel Tab) 30 mg QAM PO 10/06/16 09:00 11/05/16 08:59 10/12/16 08:43 30 MG Tramadol HCl (Ultram Tab) not relieved by tylenol @ Q6H PRN PO 10/06/16 00:15 11/05/16 00:14 10/11/16 20:08 50 MG Metoprolol Tartrate (Lopressor Tab) 50 mg BID PO 10/06/16 09:00 11/05/16 08:59 10/12/16 08:44 50 MG Menthol (Nice Lucinda) 1 lucinda PRN PRN PO 10/06/16 05:15 11/05/16 05:14 Sertraline HCl (Zoloft Tab) 100 mg HS PO 10/07/16 21:00 11/06/16 20:59 10/11/16 20:09 100 MG Aspirin (Ecotrin Tab) 81 mg DAILY PO 10/09/16 09:00 11/08/16 08:59 10/12/16 08:42 81 MG Benzocaine (Orajel 2% Oral Gel) 1 appln TID PRN MT 10/08/16 17:30 11/07/16 17:29 Pantoprazole Sodium (Protonix Tab) 40 mg BID PO 10/10/16 21:00 11/09/16 20:59 10/12/16 08:45 40 MG
[2016-10-12 16:14] VITALS: BP_SYST 100; BP_SYST 137; BP_DIAS 65; BP_DIAS 81; PULSE 56; PULSE 99; TEMP 36.5; TEMP 37; O2SAT 91; O2SAT 97
--- NOTE | 2016-10-12 16:18 | ORTHOPEDIC CONSULTATION ---
DATE OF CONSULTATION: 10/06/2016 DATE OF CONSULTATION: 10/12/2016. HISTORY OF PRESENT ILLNESS: The patient is a 50-year-old white female diabetic, renal disease on dialysis who presents with new onset of right hip and groin pain that occurred 2 days prior while she was stretching in bed. She felt a pop in her hip and groin area. X-rays reviewed revealed evidence of bony or osseous abnormalities. No evidence of fractures noted. No evidence of any type of pathologic fractures noted. Clinically she has pain, tenderness over the region of the greater trochanter consistent with that of mild trochanteric bursitis. I do not find any other physical findings or instability issues noted. Due to her diabetes and renal status, I am somewhat reluctant to inject her with corticosteroids as she relates this is somewhat better than what it was yesterday. She was able to ambulate and did physical therapy today. We will follow her for other day or so. If it worsens we discussed consideration for trochanteric bursa injection should this become necessary. Will follow with you. ASSESSMENT: New onset trochanteric bursitis, right hip. Followup as noted.
[2016-10-12] MEDS ORDERED: LACTULOSE SYRUP 30 GM/45 ML UDP PO ONE (20:15)
[2016-10-12] MEDS: SERTRALINE HCL 100 MG TAB PO SCH (20:39)
[2016-10-12 22:58] VITALS: BP 173/84; PULSE 69; TEMP 37.1; O2SAT 93
[2016-10-13] VITALS (18 sets, daily range): BP systolic 116–201; BP diastolic 51–106; PULSE 53–76; TEMP 36.4–37; O2SAT 95–98
[2016-10-13 06:42] LABS: BASO % 0.5 %; BASO ABS # 0.05 K/uL (0-0.2); COMPLETE YES; EOS % 3.9 %; HEMATOCRIT 28.2 % (37-47); IG% 0.3 %; LYMPH % 24.7 %; MEAN CELL VOLUME 97.2 fL (80-100); MEAN CORPUSCULAR HEMOGLOBIN 31.4 pg (25-34); MEAN CORPUSCULAR HGB CONC 32.3 g/dl (32-36); MEAN PLATELET VOLUME 10.5 fL (7.4-10.4); MONO % 10.2 %; NEUT % 60.4 %; PLATELET COUNT 346 K/uL (130-400)
[2016-10-13 07:11] LABS: BUN/CREATININE RATIO 6.5 (10-20); CALCIUM 9.1 mg/dl (8.5-10.1); CREATININE 9.5 mg/dl (0.60-1.20); POTASSIUM 4.9 mmol/L (3.5-5.1)
[2016-10-13] MEDS ORDERED: EPOETIN ALFA 10,000 UNITS/ML VIAL IV. ONE (07:15)
--- NOTE | 2016-10-13 07:16 | Nephrology Progress Note ---
Nephrology Progress Note Date of Service: Oct 13, 2016. Subjective 50 yo female with esrd with frequent hospitilizations. pt admitted with n/v with heme positive emesis. EGD was negative. pt eating and drinking well now however has right hip bursitis being followed by ortho. considering possible injection if pt does not improve. Objective Date Time Temp Pulse Resp B/P Pulse Ox O2 Delivery O2 Flow Rate FiO2 10/13/16 00:00 Room Air 10/12/16 22:58 37.1 69 18 173/84 93 Room Air 10/12/16 20:00 Room Air 10/12/16 16:14 37.0 56 18 137/81 97 Room Air 10/12/16 11:00 Room Air 10/12/16 09:30 Room Air 10/12/16 07:15 36.4 61 18 147/95 98 Room Air Physical Exam: General-aaox3, obese Eyes-no scleral icterus ENT-mmm Neck-supple Lungs-cta Heart-rrr Abdomen-bs+ s/nt/nd Extremities-no c/c/e Neuro-nonfocal Current Inpatient Medications Medications (Trade) Dose Ordered Sig/Bladimir Route Start Time Stop Time Status Last Admin Dose Admin Insulin Glargine (Lantus Solostar Pen) 5 unit BID SC 10/06/16 09:00 11/09/16 08:59 10/12/16 20:38 5 UNIT Glucose (Glucose 40% Gel) 15-30 GRAMS 15 GRAMS... UD PRN PO 10/05/16 23:45 11/04/16 23:44 Glucose (Glucose Chew Tab) 4-8 Tablets 4 Tabl... UD PRN PO 10/05/16 23:45 11/04/16 23:44 Dextrose (Dextrose 50% 50ML Syringe) 25-50ML OF 50% DW IV FOR... UD PRN IV 10/05/16 23:45 11/04/16 23:44 Glucagon (Glucagon Inj) 1 mg UD PRN SQ 10/05/16 23:45 11/04/16 23:44 Hydromorphone HCl (Dilaudid Inj) 0.5 mg Q3H PRN IV 10/06/16 00:15 10/20/16 00:14 10/06/16 00:20 0.5 MG Ondansetron HCl 4 mg 4 mg Q6H PRN IV 10/06/16 00:15 11/05/16 00:14 10/10/16 02:21 4 MG Promethazine HCl/ Sodium Chloride (Phenergan Inj/ Nss 50ml) 50.5 ml @ 204 mls/hr Q6H PRN IV 10/06/16 00:15 11/05/16 00:14 Lorazepam (Ativan Inj) 0.5 mg Q4H PRN IV 10/06/16 00:15 11/05/16 00:14 Miscellaneous (Iv Fluids Completed) 1 ea PRN PRN N/A 10/06/16 00:15 10/06/17 00:14 Acetaminophen (Tylenol Tab) 650 mg Q4H PRN PO 10/06/16 00:15 11/05/16 00:14 10/12/16 10:46 650 MG Nitroglycerin (Nitrostat Tab) 0.4 mg UD PRN SL 10/06/16 00:15 11/05/16 00:14 Insulin Aspart (novoLOG ASPART) SLIDING SCALE If C... ACHS SC 10/06/16 07:00 11/05/16 06:59 10/12/16 17:50 4 UNITS Atorvastatin Calcium (Lipitor Tab) 40 mg DAILY PO 10/06/16 09:00 11/05/16 08:59 10/12/16 08:44 40 MG Calcium Acetate (Phoslo Cap) 667 mg TIDM PO 10/06/16 07:30 11/05/16 07:29 10/12/16 16:43 667 MG Isosorbide Mononitrate (Imdur Ext Rel Tab) 60 mg QAM PO 10/06/16 09:00 11/05/16 08:59 10/12/16 08:43 60 MG Isosorbide Mononitrate (Imdur Ext Rel Tab) 30 mg QAM PO 10/06/16 09:00 11/05/16 08:59 10/12/16 08:43 30 MG Tramadol HCl (Ultram Tab) not relieved by tylenol @ Q6H PRN PO 10/06/16 00:15 11/05/16 00:14 10/11/16 20:08 50 MG Metoprolol Tartrate (Lopressor Tab) 50 mg BID PO 10/06/16 09:00 11/05/16 08:59 10/12/16 20:41 50 MG Menthol (Nice Lucinda) 1 lucinda PRN PRN PO 10/06/16 05:15 11/05/16 05:14 Sertraline HCl (Zoloft Tab) 100 mg HS PO 10/07/16 21:00 11/06/16 20:59 10/12/16 20:39 100 MG Aspirin (Ecotrin Tab) 81 mg DAILY PO 10/09/16 09:00 11/08/16 08:59 10/12/16 08:42 81 MG Benzocaine (Orajel 2% Oral Gel) 1 appln TID PRN MT 10/08/16 17:30 11/07/16 17:29 Pantoprazole Sodium (Protonix Tab) 40 mg BID PO 10/10/16 21:00 11/09/16 20:59 10/12/16 20:41 40 MG Last 24 Hours Test 10/12/16 07:47 10/12/16 11:13 10/12/16 16:51 10/13/16 05:23 Bedside Glucose 113 mg/dl 203 mg/dl 116 mg/dl White Blood Count 9.70 K/uL Red Blood Count 2.90 M/uL Hemoglobin 9.1 g/dL Hematocrit 28.2 % Mean Corpuscular Volume 97.2 fL Mean Corpuscular Hemoglobin 31.4 pg Mean Corpuscular Hemoglobin Concent 32.3 g/dl Platelet Count 346 K/uL Mean Platelet Volume 10.5 fL Neutrophils (%) (Auto) 60.4 % Lymphocytes (%) (Auto) 24.7 % Monocytes (%) (Auto) 10.2 % Eosinophils (%) (Auto) 3.9 % Basophils (%) (Auto) 0.5 % Neutrophils # (Auto) 5.85 K/uL Lymphocytes # (Auto) 2.40 K/uL Monocytes # (Auto) 0.99 K/uL Eosinophils # (Auto) 0.38 K/uL Basophils # (Auto) 0.05 K/uL RDW Standard Deviation 56.4 fL RDW Coefficient of Variation 16.0 % Immature Granulocyte % (Auto) 0.3 % Immature Granulocyte # (Auto) 0.03 K/uL Sodium Level 137 mmol/L Potassium Level 4.9 mmol/L Chloride Level 98 mmol/L Carbon Dioxide Level 25 mmol/L Anion Gap 14.0 mmol/L Blood Urea Nitrogen 62 mg/dl Creatinine 9.50 mg/dl Est Creatinine Clear Calc Drug Dose 8.7 ml/min Estimated GFR () 5.0 Estimated GFR (Non- 4.3 BUN/Creatinine Ratio 6.5 Random Glucose 125 mg/dl Calcium Level 9.1 mg/dl Assessment & Plan ESRD-for dialysis today. continue m-w- dialysis. pt is over her dry weight and will try to be more aggressive with uf removal as tolerated. will go for 3 liters today. Anemia of renal Failure-will continue procrit for goal hg of 10 to 11. hg levels are below goal and will redose 12k procrit today. OSIRIS-increased phosphate binders to 3 po tid with meals to help control phos levels better. will also give dose of vitamin d analogue to help with her secondary hyperparathyroidism
[2016-10-13] MEDS ORDERED: PARICALCITOL 5 MCG/ML VIAL (ZEMPLAR) IV. SCH (07:30)
[2016-10-13] MEDS ORDERED: EPOETIN ALFA INJ 12,000 UNITS in SYRINGE 0 ML IV. SCH (07:30)
[2016-10-13] MEDS: ASPIRIN 81 MG ECTAB PO SCH (07:57)
[2016-10-13] MEDS: CALCIUM ACETATE 667MG GELCAP PO SCH ×3 (08:02→17:25)
[2016-10-13] MEDS: INSULIN GLARGINE SOLOSTAR 100 UNITS/ML 3 ML PEN SC SCH ×2 (08:06→20:29)
[2016-10-13] MEDS: INSULIN ASPART 100 UNITS/ML 3 ML PEN SC SCH ×4 (08:52→21:52)
[2016-10-13] MEDS: ISOSORBIDE MONONITRATE 60 MG TABCR PO SCH (13:47)
[2016-10-13] MEDS: ISOSORBIDE MONONITRATE 30 MG TABCR PO SCH (13:47)
[2016-10-13] MEDS: ATORVASTATIN 40 MG TAB PO SCH (13:48)
[2016-10-13] MEDS: METOPROLOL TARTRATE 25 MG TAB PO SCH ×2 (13:48→20:30)
[2016-10-13] MEDS: PANTOprazole SOD 40 MG TAB PO SCH ×2 (13:48→20:29)
--- NOTE | 2016-10-13 17:35 | Progress Note ---
Internal Med Progress Note Date of Service: Oct 13, 2016. Provider Documentation: SUBJECTIVE: The patient was seen and examined Very tired following dialysis Leg and finger hurt a lot OBJECTIVE: Vital Signs-as noted below Exam: General-no distress at rest Eyes-normal ENT-normal Neck-Supple Lungs-Clear to ausucltate bilaterally Heart-Regular,no murmur Abdomen-Benign,no masses,bowel sound present Extremities-No edema Neuro-AAOx3 Lab data as noted below. ASSESSMENT & PLAN: HEMATEMESIS - EGD UNREVEALING - no recurrence so far - Hg 12--> 10.7--> remained stable around 9 - 10/07/16 s/p EGD: no source of bleeding found pathology: A. DUODENUM, BIOPSY: NO DIAGNOSTIC ABNORMALITY. B. STOMACH, BIOPSY: 1. MILD CHRONIC GASTRITIS. 2. NO SIGNIFICANT ACTIVITY (ACUTE INFLAMMATION) IDENTIFIED. 3. IMMUNOSTAIN FOR HELICOBACTER PYLORI: NEGATIVE. C. GE JUNCTION, BIOPSY: 1. ULCERATED, IRREGULAR SQUAMOUS MUCOSA. 2. ORGANISM STAINS ARE PENDING. 3. SEE COMMENT. - continue Protonix BID -diet resumed -resumed Aspirin - no recurrence of hematemesis since admission -Hg stable and denies any symptoms ELEVATED CARDIAC MARKERS HISTORY OF CAD, STENT - no cardiac symptoms, but levels higher than baseline - EKG no signs of acute ischemia - Cardiology consulted-appreciate input - resume Aspirin -continue Imdur, Metoprolol RIGHT HIP PAIN xray: no fractures or dislocation increased pain today consulted Ortho -appreciate recommendation pain is much improved CHF DIASTOLIC TYPE euvolemic no acute symptoms DM 2 Lantus ISS Blood sugars stable ESRD Dr. Prakash consulted for HD- m/w/f Likely discharge tomorrow LEFT THUMB NUMBNESS, DISCOLORATION likely small vessel disease related consulted Dr. Luz outpatient ff up scheduled for 10/14/16 for Left arm AV fistula US Not any worse since admission RIGHT GREAT TOE ESCHAR, SCALING Wound care consulted DVT prophylaxis SCDs ambulation Disposition pending lives at home will need home health services possible dc in 1-2 days Vital Signs: Date Time Temp Pulse Resp B/P Pulse Ox O2 Delivery O2 Flow Rate FiO2 10/13/16 16:00 Nasal Cannula 2.0 10/13/16 14:35 36.9 70 24 157/76 98 Room Air 10/13/16 13:10 37.0 59 156/86 10/13/16 12:15 60 161/87 10/13/16 12:00 54 150/84 10/13/16 11:45 59 158/83 10/13/16 11:30 54 133/61 10/13/16 11:15 58 136/77 10/13/16 11:00 67 128/63 10/13/16 10:45 54 116/68 10/13/16 10:30 53 142/76 10/13/16 10:15 58 141/74 10/13/16 10:00 60 182/106 10/13/16 09:45 59 173/92 10/13/16 09:30 62 186/96 10/13/16 09:23 65 184/99 10/13/16 09:16 36.4 63 201/92 10/13/16 08:44 Room Air 10/13/16 07:30 36.9 65 18 153/51 95 Room Air 10/13/16 00:00 Room Air 10/12/16 22:58 37.1 69 18 173/84 93 Room Air 10/12/16 20:00 Room Air Lab Results: Results Past 24 Hours Test 10/12/16 19:44 10/13/16 05:23 10/13/16 07:05 10/13/16 13:34 Range/Units Bedside Glucose 150 117 108 70-90 mg/dl White Blood Count 9.70 4.8-10.8 K/uL Red Blood Count 2.90 4.2-5.4 M/uL Hemoglobin 9.1 12.0-16.0 g/dL Hematocrit 28.2 37-47 % Mean Corpuscular Volume 97.2 80-100 fL Mean Corpuscular Hemoglobin 31.4 25-34 pg Mean Corpuscular Hemoglobin Concent 32.3 32-36 g/dl Platelet Count 346 130-400 K/uL Mean Platelet Volume 10.5 7.4-10.4 fL Neutrophils (%) (Auto) 60.4 % Lymphocytes (%) (Auto) 24.7 % Monocytes (%) (Auto) 10.2 % Eosinophils (%) (Auto) 3.9 % Basophils (%) (Auto) 0.5 % Neutrophils # (Auto) 5.85 1.4-6.5 K/uL Lymphocytes # (Auto) 2.40 1.2-3.4 K/uL Monocytes # (Auto) 0.99 0.11-0.59 K/uL Eosinophils # (Auto) 0.38 0-0.5 K/uL Basophils # (Auto) 0.05 0-0.2 K/uL RDW Standard Deviation 56.4 36.4-46.3 fL RDW Coefficient of Variation 16.0 11.5-14.5 % Immature Granulocyte % (Auto) 0.3 % Immature Granulocyte # (Auto) 0.03 0.00-0.02 K/uL Sodium Level 137 136-145 mmol/L Potassium Level 4.9 3.5-5.1 mmol/L Chloride Level 98 98-107 mmol/L Carbon Dioxide Level 25 21-32 mmol/L Anion Gap 14.0 3-11 mmol/L Blood Urea Nitrogen 62 7-18 mg/dl Creatinine 9.50 0.60-1.20 mg/dl Est Creatinine Clear Calc Drug Dose 8.7 ml/min Estimated GFR () 5.0 Estimated GFR (Non- 4.3 BUN/Creatinine Ratio 6.5 10-20 Random Glucose 125 70-99 mg/dl Calcium Level 9.1 8.5-10.1 mg/dl Test 10/13/16 16:02 Range/Units Bedside Glucose 161 70-90 mg/dl
[2016-10-13] MEDS: TRAMADOL HCL 50 MG TAB PO PRN (19:34)
[2016-10-13] MEDS: SERTRALINE HCL 100 MG TAB PO SCH (21:53)
[2016-10-13] MEDS: ONDANSETRON INJ 2 MG/ML 2 ML VIAL IV PRN (23:14)
[2016-10-14 00:22] VITALS: BP 159/87; PULSE 62; TEMP 36.7; O2SAT 96
[2016-10-14] MEDS: TRAMADOL HCL 50 MG TAB PO PRN (01:39)
[2016-10-14 07:23] VITALS: BP 130/74; PULSE 59; TEMP 36.4; O2SAT 98
[2016-10-14] MEDS: METOPROLOL TARTRATE 25 MG TAB PO SCH ×2 (07:46→21:14)
[2016-10-14] MEDS: ISOSORBIDE MONONITRATE 30 MG TABCR PO SCH (07:46)
[2016-10-14] MEDS: CALCIUM ACETATE 667MG GELCAP PO SCH ×3 (07:46→17:30)
[2016-10-14] MEDS: PANTOprazole SOD 40 MG TAB PO SCH ×2 (07:46→21:07)
[2016-10-14] MEDS: ATORVASTATIN 40 MG TAB PO SCH (07:46)
[2016-10-14] MEDS: ASPIRIN 81 MG ECTAB PO SCH (07:47)
[2016-10-14] MEDS: ISOSORBIDE MONONITRATE 60 MG TABCR PO SCH (07:47)
[2016-10-14] MEDS: INSULIN ASPART 100 UNITS/ML 3 ML PEN SC SCH ×4 (08:40→21:10)
[2016-10-14] MEDS: INSULIN GLARGINE SOLOSTAR 100 UNITS/ML 3 ML PEN SC SCH ×2 (08:41→21:08)
--- NOTE | 2016-10-14 15:56 | Progress Note ---
Internal Med Progress Note Date of Service: Oct 14, 2016. Provider Documentation: SUBJECTIVE: The patient was seen and examined Very tired following dialysis Not any better today Pain in finger and legs Nausea and abdominal discomfort OBJECTIVE: Vital Signs-as noted below Exam: General-no distress at rest Eyes-normal ENT-normal Neck-Supple Lungs-Clear to ausucltate bilaterally Heart-Regular,no murmur Abdomen-Benign,no masses,bowel sound present Extremities-No edema Neuro-AAOx3 Lab data as noted below. ASSESSMENT & PLAN: Nausea and Abdominal; Discomfort No distension No vomiting Received Zofran Will keep in Hospital HEMATEMESIS - EGD UNREVEALING - no recurrence so far - Hg 12--> 10.7--> remained stable around 9 - 10/07/16 s/p EGD: no source of bleeding found pathology: A. DUODENUM, BIOPSY: NO DIAGNOSTIC ABNORMALITY. B. STOMACH, BIOPSY: 1. MILD CHRONIC GASTRITIS. 2. NO SIGNIFICANT ACTIVITY (ACUTE INFLAMMATION) IDENTIFIED. 3. IMMUNOSTAIN FOR HELICOBACTER PYLORI: NEGATIVE. C. GE JUNCTION, BIOPSY: 1. ULCERATED, IRREGULAR SQUAMOUS MUCOSA. 2. ORGANISM STAINS ARE PENDING. 3. SEE COMMENT. - continue Protonix BID -diet resumed -resumed Aspirin - no recurrence of hematemesis since admission -Hb remains stable ELEVATED CARDIAC MARKERS HISTORY OF CAD, STENT - no cardiac symptoms, but levels higher than baseline - EKG no signs of acute ischemia - Cardiology consulted-appreciate input - resume Aspirin -continue Imdur, Metoprolol RIGHT HIP PAIN xray: no fractures or dislocation increased pain today consulted Ortho -appreciate recommendation pain is much improved Denies any more pain CHF DIASTOLIC TYPE euvolemic no acute symptoms DM 2 Lantus ISS Blood sugars stable ESRD Dr. Prakash consulted for HD- m/w/f Likely discharge tomorrow after HD LEFT THUMB NUMBNESS, DISCOLORATION likely small vessel disease related consulted Dr. Luz outpatient ff up scheduled for 10/14/16 for Left arm AV fistula US Not any worse since admission RIGHT GREAT TOE ESCHAR, SCALING Wound care consulted DVT prophylaxis SCDs ambulation Disposition pending lives at home will need home health services possible discharge tomorrow Vital Signs: Date Time Temp Pulse Resp B/P Pulse Ox O2 Delivery O2 Flow Rate FiO2 10/14/16 08:00 Room Air 10/14/16 07:23 36.4 59 20 130/74 98 Room Air 10/14/16 00:22 36.7 62 20 159/87 96 Room Air 10/14/16 00:00 Room Air 10/13/16 20:31 76 176/64 10/13/16 16:00 Nasal Cannula 2.0 Lab Results: Results Past 24 Hours Test 10/13/16 16:02 10/13/16 20:04 10/13/16 21:41 10/14/16 07:39 Range/Units Bedside Glucose 161 104 133 97 70-90 mg/dl Test 10/14/16 11:22 Range/Units Bedside Glucose 172 70-90 mg/dl
[2016-10-14 16:22] VITALS: BP 121/68; PULSE 56; TEMP 36.8; O2SAT 97
[2016-10-14] MEDS: SERTRALINE HCL 100 MG TAB PO SCH (21:09)
[2016-10-15] VITALS (19 sets, daily range): BP systolic 127–212; BP diastolic 71–109; PULSE 47–65; TEMP 36.5–37; O2SAT 94–98
[2016-10-15] MEDS: CALCIUM ACETATE 667MG GELCAP PO SCH ×3 (07:44→17:40)
[2016-10-15] MEDS: ASPIRIN 81 MG ECTAB PO SCH (07:44)
[2016-10-15] MEDS: PANTOprazole SOD 40 MG TAB PO SCH (07:44)
[2016-10-15] MEDS: ATORVASTATIN 40 MG TAB PO SCH (07:44)
[2016-10-15] MEDS ORDERED: EPOETIN ALFA 10,000 UNITS/ML VIAL IV. ONE (08:00)
[2016-10-15] MEDS ORDERED: HEPARIN SOD (PORCINE) 1000 UNIT/ML 10 ML VIAL IV SCH (08:00)
[2016-10-15] MEDS ORDERED: EPOETIN ALFA INJ 12,000 UNITS in SYRINGE 0 ML IV. SCH (08:00)
[2016-10-15] MEDS ORDERED: IRON SUCROSE INJ 100 MG in SYRINGE 0 ML IV SCH (08:00)
[2016-10-15] MEDS: INSULIN ASPART 100 UNITS/ML 3 ML PEN SC SCH ×3 (08:53→18:24)
[2016-10-15] MEDS: INSULIN GLARGINE SOLOSTAR 100 UNITS/ML 3 ML PEN SC SCH (08:54)
--- NOTE | 2016-10-15 09:42 | Dialysis Progress Note ---
Nephrology Dialysis Note Date of Service: Oct 15, 2016. Subjective eating well; no n/v; not dyspneic and no cough; no chest pain; no edema; vascular lesions improving Objective Date Time Temp Pulse Resp B/P Pulse Ox O2 Delivery O2 Flow Rate FiO2 10/15/16 08:30 36.7 63 211/109 10/15/16 07:49 36.5 55 20 163/89 98 Room Air 10/15/16 01:06 36.7 65 20 151/71 94 Room Air 10/15/16 00:00 Room Air 10/14/16 20:00 Room Air 10/14/16 16:30 Room Air 10/14/16 16:22 36.8 56 18 121/68 97 Room Air Physical Exam: General-aaox3, obese, RA Eyes-no scleral icterus ENT-mmm Neck-supple Lungs-ctab, diminished Heart-rrr Abdomen-bs+ s/nt/nd Extremities-no c/c/e; L AVF; lesions on BLUE digits all look improved Neuro-stein, fluent speech Current Inpatient Medications Medications (Trade) Dose Ordered Sig/Bladimir Route Start Time Stop Time Status Last Admin Dose Admin Insulin Glargine (Lantus Solostar Pen) 5 unit BID SC 10/06/16 09:00 11/09/16 08:59 10/15/16 08:54 5 UNIT Glucose (Glucose 40% Gel) 15-30 GRAMS 15 GRAMS... UD PRN PO 10/05/16 23:45 11/04/16 23:44 Glucose (Glucose Chew Tab) 4-8 Tablets 4 Tabl... UD PRN PO 10/05/16 23:45 11/04/16 23:44 Dextrose (Dextrose 50% 50ML Syringe) 25-50ML OF 50% DW IV FOR... UD PRN IV 10/05/16 23:45 11/04/16 23:44 Glucagon (Glucagon Inj) 1 mg UD PRN SQ 10/05/16 23:45 11/04/16 23:44 Hydromorphone HCl (Dilaudid Inj) 0.5 mg Q3H PRN IV 10/06/16 00:15 10/20/16 00:14 10/06/16 00:20 0.5 MG Ondansetron HCl 4 mg 4 mg Q6H PRN IV 10/06/16 00:15 11/05/16 00:14 10/13/16 23:14 4 MG Promethazine HCl/ Sodium Chloride (Phenergan Inj/ Nss 50ml) 50.5 ml @ 204 mls/hr Q6H PRN IV 10/06/16 00:15 11/05/16 00:14 Lorazepam (Ativan Inj) 0.5 mg Q4H PRN IV 10/06/16 00:15 11/05/16 00:14 Miscellaneous (Iv Fluids Completed) 1 ea PRN PRN N/A 10/06/16 00:15 10/06/17 00:14 Acetaminophen (Tylenol Tab) 650 mg Q4H PRN PO 10/06/16 00:15 11/05/16 00:14 10/12/16 10:46 650 MG Nitroglycerin (Nitrostat Tab) 0.4 mg UD PRN SL 10/06/16 00:15 11/05/16 00:14 Insulin Aspart (novoLOG ASPART) SLIDING SCALE If C... ACHS SC 10/06/16 07:00 11/05/16 06:59 10/15/16 08:53 5 UNITS Atorvastatin Calcium (Lipitor Tab) 40 mg DAILY PO 10/06/16 09:00 11/05/16 08:59 10/15/16 07:44 40 MG Isosorbide Mononitrate (Imdur Ext Rel Tab) 60 mg QAM PO 10/06/16 09:00 11/05/16 08:59 10/14/16 07:47 60 MG Isosorbide Mononitrate (Imdur Ext Rel Tab) 30 mg QAM PO 10/06/16 09:00 11/05/16 08:59 10/14/16 07:46 30 MG Tramadol HCl (Ultram Tab) not relieved by tylenol @ Q6H PRN PO 10/06/16 00:15 11/05/16 00:14 10/14/16 01:39 50 MG Metoprolol Tartrate (Lopressor Tab) 50 mg BID PO 10/06/16 09:00 11/05/16 08:59 10/14/16 21:14 50 MG Menthol (Nice Lucinda) 1 lucinda PRN PRN PO 10/06/16 05:15 11/05/16 05:14 Sertraline HCl (Zoloft Tab) 100 mg HS PO 10/07/16 21:00 11/06/16 20:59 10/14/16 21:09 100 MG Aspirin (Ecotrin Tab) 81 mg DAILY PO 10/09/16 09:00 11/08/16 08:59 10/15/16 07:44 81 MG Benzocaine (Orajel 2% Oral Gel) 1 appln TID PRN MT 10/08/16 17:30 11/07/16 17:29 Pantoprazole Sodium (Protonix Tab) 40 mg BID PO 10/10/16 21:00 11/09/16 20:59 10/15/16 07:44 40 MG Calcium Acetate (Phoslo Cap) 2,001 mg TIDM PO 10/13/16 08:00 11/12/16 07:59 10/15/16 07:44 2,001 MG Heparin Sodium (Porcine) (Heparin Iv Bolus) 1,000 unit TODAY@0800 IV 10/15/16 08:00 10/15/16 23:59 Heparin Sodium (Porcine) 400 unit 400 unit TODAY@0800,0900,1000 IV 10/15/16 08:00 10/15/16 23:59 Iron Sucrose 100 mg/Syringe 5 ml @ 1 mls/min TODAY@0800 IV 10/15/16 08:00 10/15/16 23:59 Epoetin Christopher/ Syringe (Procrit Inj/ Syringe) 0.6 ml @ 1 mls/min TODAY@0800 IV. 10/15/16 08:00 10/15/16 23:59 Last 24 Hours Test 10/14/16 11:22 10/14/16 16:48 10/14/16 20:21 10/15/16 07:52 Bedside Glucose 172 mg/dl 109 mg/dl 140 mg/dl 130 mg/dl Assessment & Plan 50 yo female with esrd with frequent hospitilizations. pt admitted with n/v with heme positive emesis. EGD was negative. pt eating and drinking well; right hip bursitis improving ESRD-for dialysis today. continue m-w-f dialysis. will go for 4 liters today d/ t HTN, wt Anemia of renal Failure-will continue procrit for goal hg of 10 to 11. redose 12k procrit today. OSIRIS- cont increased phosphate binders to 3 po tid with meals
[2016-10-15] MEDS: METOPROLOL TARTRATE 25 MG TAB PO SCH (13:04)
[2016-10-15] MEDS: ISOSORBIDE MONONITRATE 30 MG TABCR PO SCH (13:05)
[2016-10-15] MEDS: ISOSORBIDE MONONITRATE 60 MG TABCR PO SCH (13:08)
[2016-10-15] MEDS: HEPARIN SOD (PORCINE) 1000 UNIT/ML 10 ML VIAL IV SCH ×2 (13:10→13:11)
--- NOTE | 2016-10-15 13:53 | Progress Note ---
Internal Med Progress Note Date of Service: Oct 15, 2016. Provider Documentation: SUBJECTIVE: The patient was seen and examined A little tired today following dialysis No other symptoms OBJECTIVE: Vital Signs-as noted below Exam: General-no distress at rest Eyes-normal ENT-normal Neck-Supple Lungs-Clear to ausucltate bilaterally Heart-Regular,no murmur Abdomen-Benign,no masses,bowel sound present Extremities-No edema Neuro-AAOx3 Lab data as noted below. ASSESSMENT & PLAN: Nausea and Abdominal; Discomfort No more nausea and or vomiting Feels better following Dialysis HEMATEMESIS - EGD UNREVEALING - no recurrence so far - Hg 12--> 10.7--> remained stable around 9 - 10/07/16 s/p EGD: no source of bleeding found pathology: A. DUODENUM, BIOPSY: NO DIAGNOSTIC ABNORMALITY. B. STOMACH, BIOPSY: 1. MILD CHRONIC GASTRITIS. 2. NO SIGNIFICANT ACTIVITY (ACUTE INFLAMMATION) IDENTIFIED. 3. IMMUNOSTAIN FOR HELICOBACTER PYLORI: NEGATIVE. C. GE JUNCTION, BIOPSY: 1. ULCERATED, IRREGULAR SQUAMOUS MUCOSA. 2. ORGANISM STAINS ARE PENDING. 3. SEE COMMENT. - continue Protonix BID -diet resumed -resumed Aspirin - no recurrence of hematemesis since admission -Hb remains stable -will discharge home today ELEVATED CARDIAC MARKERS HISTORY OF CAD, STENT - no cardiac symptoms, but levels higher than baseline - EKG no signs of acute ischemia - Cardiology consulted-appreciate input - resume Aspirin -continue Imdur, Metoprolol RIGHT HIP PAIN xray: no fractures or dislocation increased pain today consulted Ortho -appreciate recommendation pain is much improved Denies any more pain now CHF DIASTOLIC TYPE euvolemic no acute symptoms DM 2 Lantus ISS Blood sugars stable ESRD Dr. Prakash consulted for HD- m/w/f Discharge home today Continue OP HD LEFT THUMB NUMBNESS, DISCOLORATION likely small vessel disease related consulted Dr. Luz outpatient ff up scheduled for 10/14/16 for Left arm AV fistula US Not any worse since admission Remains stable RIGHT GREAT TOE ESCHAR, SCALING Wound care consulted No issue with it now DVT prophylaxis SCDs ambulation Disposition pending lives at home Discharge home today Vital Signs: Date Time Temp Pulse Resp B/P Pulse Ox O2 Delivery O2 Flow Rate FiO2 10/15/16 11:45 53 144/80 10/15/16 11:30 50 159/95 10/15/16 11:15 50 139/76 10/15/16 11:01 47 138/74 10/15/16 10:45 47 138/74 10/15/16 10:30 50 134/80 10/15/16 10:15 51 127/72 10/15/16 10:00 47 130/87 10/15/16 09:45 53 127/78 10/15/16 09:30 53 165/93 10/15/16 09:15 59 165/101 10/15/16 09:00 62 171/96 10/15/16 08:45 65 196/108 10/15/16 08:40 64 212/105 10/15/16 08:30 36.7 63 211/109 10/15/16 08:30 Room Air 10/15/16 07:49 36.5 55 20 163/89 98 Room Air 10/15/16 01:06 36.7 65 20 151/71 94 Room Air 10/15/16 00:00 Room Air 10/14/16 20:00 Room Air 10/14/16 16:30 Room Air 10/14/16 16:22 36.8 56 18 121/68 97 Room Air Lab Results: Results Past 24 Hours Test 10/14/16 16:48 10/14/16 20:21 10/15/16 07:52 10/15/16 11:42 Range/Units Bedside Glucose 109 140 130 121 70-90 mg/dl
--- NOTE | 2016-10-15 14:47 | Discharge Instructions ---
Discharge Instructions Admission Reason for Admission: Upper Gi Bleed Discharge Discharge Diagnosis / Problem: Hematemesis-Resolved and Negative EGD,ESRF on HD Discharge Goals Goal(s): Prevent Disease Progression Activity Recommendations Activity Limitations: resume your previous activity . Instructions / Follow-Up Instructions / Follow-Up Dr Borrero on 10/19/16 at 10:10AM.Keep doing OP Hemodialysis Current Hospital Diet Patient's current hospital diet: Low Fat Diet, Diabetes Type 1 Diet Discharge Diet Recommended Diet: Diabetes Type 2 Diet, Renal Diet Fluid Restriction: 1500 ml (6 cups) Pending Studies Studies pending at discharge: no Laboratory Results Hemoglobin A1c Test 10/05/16 21:20 Range/Units Estimated Average Glucose 157 mg/dl Hemoglobin A1c 7.1 H 4.5-5.6 % Medical Emergencies . Who to Call and When: Medical Emergencies: If at any time you feel your situation is an emergency, please call 911 immediately. . Non-Emergent Contact Non-Emergency issues call your: Primary Care Provider . . "Provider Documentation" section prepared by Margarita Robles. VTE Core Measure Inpt VTE Proph given/why not?: Unfractionated heparin SQ
--- NOTE | 2016-10-16 08:03 | Discharge Summary ---
Discharge Summary Date of Service Oct 16, 2016. Discharge Summary Admission Date: Oct 06, 2016 at 07:03 Discharge Date: Oct 15, 2016 Discharge Disposition: Home Principal Diagnosis: Hematemesis-Resolved and Negative EGD,ESRD on HD Secondary Diagnoses/Problems: Please see H&P Consultations: Nephrology Medication Reconciliation Continued Medications: Aspirin (Aspirin Ec) 81 Mg Tab 81 MG PO DAILY Atorvastatin (Lipitor) 20 Mg Tab 40 MG PO DAILY, TAB Calcium Acetate (Phoslo 667 Mg) 667 Mg Cap 1 CAP PO WM, CAP Clopidogrel Bisulfate (Plavix) 75 Mg Tab 1 TAB PO DAILY for 90 Days, #90 TAB 1 Refill Insulin Glargine (Lantus Solostar) 100 Unit/Ml Inj 10 UNITS SC QPM, PEN Isosorbide Mononitrate (Isosorbide Mononitrate ER) 30 Mg Tabcr 60 MG PO QAM Isosorbide Mononitrate Ext Rel (Imdur Ext Rel) 30 Mg Ertab 30 MG PO QAM, TAB Lorazepam (Ativan) 1 Mg Tab 0.5 MG PO DAILY PRN for Anxiety, TAB Methocarbamol (Methocarbamol) 500 Mg Tab 500 MG PO BID PRN for Muscle Spasms Metoprolol Tartrate (Lopressor) 25 Mg Tab 50 MG PO BID, TAB Ranitidine Hcl (Zantac) 150 Mg Tab 300 MG PO HS, TAB Sertraline HCl (Sertraline HCl) 50 Mg Tab 2 TAB PO DAILY for 30 Days, #60 TAB 5 Refills Tramadol (Ultram) 50 Mg Tab 1 TAB PO TID PRN for Pain for 30 Days, #90 TAB Admission Information HPI (per Admitting provider): DATE OF ADMISSION: 10/05/2016 PRIMARY CARE PHYSICIAN: Dr. Becerra. CHIEF COMPLAINT: Hematemesis. HISTORY OF PRESENT ILLNESS: Medical history significant for chronic diastolic heart failure, EF 65%, CAD status post stenting, past tobacco abuse, DM2 insulin requiring, end-stage renal disease on hemodialysis, chronic anemia, baseline hemoglobin 10- 11, GERD as per records. Recent confinement last week for hematemesis. As per records, patient refused EGD. No endoscopy done as hemoglobin stable and GI bleed resolved. Patient subsequently discharged. Patient also discharged on prednisone taper for right hand pain, possible gout. Yesterday, patient had epigastric discomfort, achy going to her chest. with some shortness of breath. Patient subsequently had bloody emesis. Denies black/bloody stools. At the Emergency Room, the patient received Protonix bolus for GI bleed. MEDICAL HISTORY: As above. Hemodialysis Tuesday, Tuesday, Tuesday. SURGERIES: Vascular procedures. HOME MEDICATIONS: Include aspirin, Lipitor, Plavix, PhosLo, Lantus, Imdur ER, isosorbide mononitrate, Ativan, Lopressor, Zantac, sertraline, tramadol. ALLERGIES: ADHESIVE, POLLEN EXTRACT. FAMILY HISTORY: There is a family history of heart disease, diabetes. PERSONAL AND SOCIAL HISTORY: Past tobacco abuse. No chronic ETOH intake. Disabled. REVIEW OF SYSTEMS: As per HPI. all other ROS negative. PHYSICAL EXAMINATION: VITAL SIGNS: Blood pressure was noted to be initially SBP 220s later 178/106, pulse rate 79, RR 19, sats 102 liters. GENERAL: Noted to obese, chronically ill. No respiratory distress. SKIN: Sallow. HEENT: Pale palpebral conjunctivae. dry buccal mucosa NECK: Short neck. LUNGS: Decreased breath sounds. HEART: Regular rate and rhythm. ABDOMEN: Epigastric tenderness. EXTREMITIES: Minimal LE edema. minimal R hand edema w/ dressing NEUROLOGIC: No gross focality. LABS: Hemoglobin was noted to be 12.4, hematocrit 37.1, white cell count was noted to be 12, platelets 389. Sodium 135, potassium 5.1, chloride 96, CO2 22, BUN 48, creatinine 7.8, glucose was noted to be 231. Troponin 0.444. EKG rate 105, sinus tachycardia, nonspecific T-wave abnormalities in the inferior leads. Chest x-ray showed stable cardiomegaly. Gallbladder ultrasound initial read cholelithiasis, no jasmin cholecystitis. Hemoglobin A1c was 7.4 last June 2016. ASSESSMENT: 1. Recurrent upper gastrointestinal bleeding. possible etiologies include ; esophagitis, gastritis, MWT, PUD, tumor hemodynamically stable. 2. hx chronic diastolic HF, px on the dry side 3. hx CAD sp stenting 4. troponinemia secondary to hypertensive urgency secondary to illness, CKD 5. DM2 insulin requiring, reasonable control of recent HgA1c. elevated likely 2 to stress and outpx steroid course. 6. ESRD on HD 7. Rt hand pain (possible gout as per records of recent confinement), improved on outpx steroid treatment. 8. Past tobacco abuse PLAN: Observation PCU. ff HH, transfuse PRBC if less than 8. (hx CAD) appropriate to hold home ASA, Plavix for now IV PPI. GI consult RE recurrent UGIB. Patient amenable to endoscopy if necessary Facilitate home blood pressure meds and analgesia. ff trops Nephrology consult RE dialysis management basal insulin, ISS BG goal 140-180. DVT prophylaxis, SCDs. RE GI bleed. Full code. Hospital Course Nausea and Abdominal; Discomfort No more nausea and or vomiting Feels better following Dialysis HEMATEMESIS - EGD UNREVEALING - no recurrence so far - Hg 12--> 10.7--> remained stable around 9 - 10/07/16 s/p EGD: no source of bleeding found pathology: A. DUODENUM, BIOPSY: NO DIAGNOSTIC ABNORMALITY. B. STOMACH, BIOPSY: 1. MILD CHRONIC GASTRITIS. 2. NO SIGNIFICANT ACTIVITY (ACUTE INFLAMMATION) IDENTIFIED. 3. IMMUNOSTAIN FOR HELICOBACTER PYLORI: NEGATIVE. C. GE JUNCTION, BIOPSY: 1. ULCERATED, IRREGULAR SQUAMOUS MUCOSA. 2. ORGANISM STAINS ARE PENDING. 3. SEE COMMENT. - continue Protonix BID -diet resumed -resumed Aspirin - no recurrence of hematemesis since admission -Hb remains stable -will discharge home today ELEVATED CARDIAC MARKERS HISTORY OF CAD, STENT - no cardiac symptoms, but levels higher than baseline - EKG no signs of acute ischemia - Cardiology consulted-appreciate input - resume Aspirin -continue Imdur, Metoprolol RIGHT HIP PAIN xray: no fractures or dislocation increased pain today consulted Ortho -appreciate recommendation pain is much improved Denies any more pain now CHF DIASTOLIC TYPE euvolemic no acute symptoms DM 2 Lantus ISS Blood sugars stable ESRD Dr. Prakash consulted for HD- m/w/f Discharge home today Continue OP HD LEFT THUMB NUMBNESS, DISCOLORATION likely small vessel disease related consulted Dr. Luz outpatient ff up scheduled for 10/14/16 for Left arm AV fistula US Not any worse since admission Remains stable RIGHT GREAT TOE ESCHAR, SCALING Wound care consulted No issue with it now DVT prophylaxis SCDs ambulation Disposition pending lives at home Discharge home today Total time spent on discharge = 35 minutes This includes examination of the patient, discharge planning, medication reconciliation, and communication with other providers. Discharge Instructions Admission Reason for Admission: Upper Gi Bleed Discharge Discharge Diagnosis / Problem: Hematemesis-Resolved and Negative EGD,ESRF on HD Discharge Goals Goal(s): Prevent Disease Progression Activity Recommendations Activity Limitations: resume your previous activity . Instructions / Follow-Up Instructions / Follow-Up Dr Borrero on 10/19/16 at 10:10AM.Keep doing OP Hemodialysis Current Hospital Diet Patient's current hospital diet: Low Fat Diet, Diabetes Type 1 Diet Discharge Diet Recommended Diet: Diabetes Type 2 Diet, Renal Diet Fluid Restriction: 1500 ml (6 cups) Pending Studies Studies pending at discharge: no Laboratory Results Hemoglobin A1c Test 10/05/16 21:20 Range/Units Estimated Average Glucose 157 mg/dl Hemoglobin A1c 7.1 H 4.5-5.6 % Medical Emergencies . Who to Call and When: Medical Emergencies: If at any time you feel your situation is an emergency, please call 911 immediately. . Non-Emergent Contact Non-Emergency issues call your: Primary Care Provider . . "Provider Documentation" section prepared by Margarita Robles. VTE Core Measure Inpt VTE Proph given/why not?: Unfractionated heparin SQ <Electronically signed by Margarita Robles M.D.> Signed: 10/15/16 [id number] Additional Copies To Tamy Becerra D.O.
--- NOTE | 2016-10-21 13:05 | Anesthesiology Progress Note ---
Anesthesia Post Op Note Date & Time Oct 21, 2016 at 13:05 Vital Signs Pain Intensity: 0.0 Notes Mental Status: alert / awake / arousable, participated in evaluation Pt Amnestic to Procedure: Yes Nausea / Vomiting: adequately controlled Pain: adequately controlled Airway Patency, RR, SpO2: stable & adequate BP & HR: stable & adequate Hydration State: stable & adequate Anesthetic Complications: no major complications apparent
[2016-10-29] MEDS ORDERED: LVQ500 PO (12:40)
[2016-10-29] MEDS ORDERED: MTR500 PO (12:40)
[2016-10-29] MEDS ORDERED: LCTX PO (12:40)
[2016-10-29] MEDS ORDERED: MYC10 MT (12:40)
[2016-10-29] MEDS ORDERED: ONDA4TAB46 PO (12:40)
[2016-12-13] MEDS ORDERED: LEVO1TAB34 PO (13:44)
[2017-01-18] MEDS ORDERED: LEVO1TAB33 PO (11:06)
[2017-02-09] MEDS ORDERED: DOXY-300 PO (11:08)
[2017-03-31] MEDS ORDERED: FLUT50SP45 (09:13)
[2017-03-31] MEDS ORDERED: LPT/40 PO (09:13)
[2017-03-31] MEDS ORDERED: SERT1TAB68 PO (09:13)
[2017-03-31] MEDS ORDERED: LORA5CHW10 PO (09:13)
[2017-03-31] MEDS ORDERED: DICY10CA12 PO (11:36)
[2017-03-31] MEDS ORDERED: PANT40TA PO (11:36)
[2017-03-31] MEDS ORDERED: TRMCR515 TOP (14:18)
[2017-03-31] MEDS ORDERED: METO50TA16 PO (14:18)
[2017-03-31] MEDS ORDERED: ASPI-435 PO (15:36)
[2017-03-31] MEDS ORDERED: INSDGIPEN SC (21:11)
[2017-04-28] MEDS ORDERED: TPRSR/50 PO (13:22)
== END 2016-10-15 20:18 | disposition home or self-care (01) | DRG 377 ==
LOC: ENRESERVTM → ENRESERVDT → C.EDB 19:55 → C.EDINP 23:37 → EDBEDREQ 23:49 → C.2T 10-06 00:52 → OBSVTOIN 10-06 07:03 → C.MED 10-09 19:01 → C.4E 10-11 08:35 → C.MS4W 10-13 20:02
PROVIDERS: ADMIT Internal Medicine; ATTEND Internal Medicine
PROC: 0DB98ZX Excision of Duodenum, Via Natural or Artificial Opening Endoscopic, Diagnostic (ICD-10-PCS; principal; 2016-10-07 09:27)
DX: K92.2 Gastrointestinal hemorrhage, unspecified (principal); N18.6 End stage renal disease; I12.0 Hypertensive chronic kidney disease with stage 5 chronic kidney disease or end stage renal disease; I50.32 Chronic diastolic (congestive) heart failure; Z68.41 Body mass index [BMI] 40.0-44.9, adult; I96 Gangrene, not elsewhere classified; T82.590A Other mechanical complication of surgically created arteriovenous fistula, initial encounter; K92.0 Hematemesis; Z99.2 Dependence on renal dialysis; I25.10 Atherosclerotic heart disease of native coronary artery without angina pectoris; K21.9 Gastro-esophageal reflux disease without esophagitis; I25.5 Ischemic cardiomyopathy; Z87.891 Personal history of nicotine dependence; Z83.3 Family history of diabetes mellitus; Z82.49 Family history of ischemic heart disease and other diseases of the circulatory system; Z79.82 Long term (current) use of aspirin; Z79.899 Other long term (current) drug therapy; Z79.4 Long term (current) use of insulin; Z95.5 Presence of coronary angioplasty implant and graft; M70.61 Trochanteric bursitis, right hip; D63.1 Anemia in chronic kidney disease; N25.0 Renal osteodystrophy; E66.01 Morbid (severe) obesity due to excess calories; Y83.8 Other surgical procedures as the cause of abnormal reaction of the patient, or of later complication, without mention of misadventure at the time of the procedure; Z91.19 Patient's noncompliance with other medical treatment and regimen; I65.22 Occlusion and stenosis of left carotid artery; E11.22 Type 2 diabetes mellitus with diabetic chronic kidney disease

== ENCOUNTER 2016-10-23 10:42 | Inpatient (IN) | payer OTHER ==
[~2016-10-23] VITALS: Ht 162.6 cm; Wt 108.4 kg
[~2016-10-23 10:42] MED LIST changes: -PRED10TA PO
--- NOTE | 2016-10-23 11:23 | EMERGENCY ROOM VISIT NOTE ---
ED Visit Note First contact with patient: 10:56 I have seen and examined this patient with Bao Palmer and generally agree with the treatment plan as discussed. Problem List Medical Problems: (1) Allergic rhinitis Status: Chronic (2) CAD (coronary artery disease) Permanent Comment: s/p PCI and BMS to left circumflex 03/2016 Status: Chronic (3) Carotid stenosis Permanent Comment: left ICA Status: Chronic (4) DM type 2 (diabetes mellitus, type 2) Status: Chronic (5) Dyslipidemia Status: Chronic (6) ESRD (end stage renal disease) on dialysis Status: Chronic (7) GERD (gastroesophageal reflux disease) Status: Chronic (8) HTN (hypertension) Status: Chronic (9) HX OF PAST NONCOMPLIANCE Status: Chronic (10) Ischemic cardiomyopathy Permanent Comment: echo 05/2016 - EF 40-45%, grade I diastolic dysfunction Status: Chronic (11) Morbid obesity Status: Chronic (12) Tobacco use disorder Status: Chronic Surgical Problems: (1) Hemodialysis access, AV graft Permanent Comment: [facility] Dr. Jones 08/25/12 Status: Chronic Current/Historical Medications Scheduled Aspirin (Aspirin Ec), 81 MG PO DAILY Atorvastatin (Lipitor), 40 MG PO DAILY Calcium Acetate (Phoslo 667 Mg), 1 CAP PO WM Clopidogrel Bisulfate (Plavix), 1 TAB PO DAILY Insulin Glargine (Lantus Solostar), 10 UNITS SC QPM Isosorbide Mononitrate (Isosorbide Mononitrate ER), 60 MG PO QAM Isosorbide Mononitrate Ext Rel (Imdur Ext Rel), 30 MG PO QAM Metoprolol Tartrate (Lopressor), 50 MG PO BID Ranitidine Hcl (Zantac), 300 MG PO HS Sertraline HCl (Sertraline HCl), 2 TAB PO DAILY Scheduled PRN Lorazepam (Ativan), 0.5 MG PO DAILY PRN for Anxiety Methocarbamol (Methocarbamol), 500 MG PO BID PRN for Muscle Spasms Tramadol (Ultram), 1 TAB PO TID PRN for Pain Allergies Coded Allergies: Adhesives (Verified Allergy, Mild, RASH, SORES, 09/21/16) Pollen Extract (Unverified Allergy, Unknown, rash, 09/21/16) Vital Signs Date Time Temp Pulse Resp B/P Pulse Ox O2 Delivery O2 Flow Rate FiO2 10/23/16 10:49 36.8 86 20 117/76 96 Room Air Laboratory Results Test 10/23/16 11:07 Departure Information Referrals Tamy Becerra D.O. (PCP) Patient Instructions [facility]
[2016-10-23] MEDS ORDERED: CALC667C4 PO (11:36)
[2016-10-23] MEDS ORDERED: CEPH500C2 PO (11:36)
--- NOTE | 2016-10-23 11:49 | DIAGNOSTIC IMAGING REPORT ---
LEFT FIRST TOE 3 VIEWS CLINICAL HISTORY: First toe infection. FINDINGS: 3 views of the left first toe are obtained. No prior studies are available for comparison at the time of dictation. The skeletal structures are osteopenic. No fracture is seen. No bony erosion or periostitis is identified. Mild arthritic change is seen at the first metatarsophalangeal joint. Mild soft tissue swelling is suggested in the first toe. No subcutaneous gas or radiodense foreign body is seen. Advanced atherosclerotic calcification is noted in the regional arteries. IMPRESSION: 1. No acute bony abnormality is seen in the left first toe. 2. Osteopenia and mild arthritic change as above. 3. There is mild soft tissue swelling and advanced after carotid calcification of the regional arteries. Electronically signed by: Uriel Thomson M.D. 10/23/2016 11:48 AM Dictated Date/Time: 10/23/2016 11:46 AM
[2016-10-23 12:09] LABS: BASO % 0.6 %; BASO ABS # 0.06 K/uL (0-0.2); COMPLETE YES; EOS % 3.6 %; HEMATOCRIT 34.8 % (37-47); IG% 0.1 %; LYMPH % 17.6 %; LYMPH ABS # 1.65 K/uL (1.2-3.4); MEAN CELL VOLUME 94.1 fL (80-100); MEAN CORPUSCULAR HEMOGLOBIN 29.7 pg (25-34); MEAN CORPUSCULAR HGB CONC 31.6 g/dl (32-36); MEAN PLATELET VOLUME 10.2 fL (7.4-10.4); MONO % 6.8 %; NEUT % 71.3 %; PLATELET COUNT 388 K/uL (130-400); WHITE BLOOD COUNT 9.39 K/uL (4.8-10.8)
[2016-10-23 12:36] LABS: BUN/CREATININE RATIO 4.6 (10-20); CALCIUM 9.4 mg/dl (8.5-10.1); CREATININE 7.2 mg/dl (0.60-1.20); POTASSIUM 3.8 mmol/L (3.5-5.1)
[2016-10-23] MEDS ORDERED: CEFTRIAXONE SOD INJ 1 GM in DEXTROSE 5% ADD-VANTAGE 50ML 50 ML IV STA (12:58)
[2016-10-23] MEDS ORDERED: CEFTRIAXONE SOD INJ 1 GM ADDVIAL ONE (13:37)
[2016-10-23] MEDS ORDERED: GLUCOSE 10 TABS/TUBE PO PRN ×2 (15:00→16:30)
[2016-10-23] MEDS ORDERED: ONDANSETRON INJ 2 MG/ML 2 ML VIAL IV PRN (15:00)
[2016-10-23] MEDS ORDERED: DEXTROSE 50% 50 ML SYR IV PRN ×2 (15:00→16:30)
[2016-10-23] MEDS ORDERED: GLUCOSE 40% GEL 15 GM TUBE PO PRN ×2 (15:00→16:30)
[2016-10-23] MEDS ORDERED: ACETAMINOPHEN 325 MG TAB PO PRN (15:00)
[2016-10-23] MEDS ORDERED: GLUCAGON FOR INJ 1 MG VIAL SQ PRN ×2 (15:00→16:30)
[2016-10-23] MEDS ORDERED: METHOCARBAMOL 500 MG TAB PO PRN (16:15)
--- NOTE | 2016-10-23 16:47 | History and Physical ---
History & Physical Date & Time of Service: Oct 23, 2016 at 16:34 Chief Complaint: Left Toe-Sores And Leaking Primary Care Physician: Tamy Becerra D.O. History of Present Illness Source: patient This is a 50 yo F with complicated past medical hx of ESRD on HD , Type 2 DM , insulin dependent , hx of CAD s/p PTCA KAROLINE on Left Cx artery on 03/[address] Venegas , severe left carotid artery disease Hx of GI bleed , .presents with non healing left great toe diabetic infection pt has is to follow at Wound Care clinic next week , recently seen at PCP office -for worsening of redness, swelling and pain on left great toe started on PO Keflex , noted her left great toe started to have worsening of drainage had 2-3 episodes of diarrhea since yesterday no fever or chills in the ER left great toe appears to be gangrenous with redness,open wound , black eschar at end stool positive for C diff Past Medical/Surgical History Medical Problems: (1) Allergic rhinitis Status: Chronic (2) CAD (coronary artery disease) Permanent Comment: s/p PCI and BMS to left circumflex 03/2016 Status: Chronic (3) Carotid stenosis Permanent Comment: left ICA Status: Chronic (4) DM type 2 (diabetes mellitus, type 2) Status: Chronic (5) Dyslipidemia Status: Chronic (6) ESRD (end stage renal disease) on dialysis Status: Chronic (7) GERD (gastroesophageal reflux disease) Status: Chronic (8) HTN (hypertension) Status: Chronic (9) HX OF PAST NONCOMPLIANCE Status: Chronic (10) Ischemic cardiomyopathy Permanent Comment: echo 05/2016 - EF 40-45%, grade I diastolic dysfunction Status: Chronic (11) Morbid obesity Status: Chronic (12) Tobacco use disorder Status: Chronic Surgical Problems: (1) Hemodialysis access, AV graft Permanent Comment: [facility] Dr. Jones 08/25/12 Status: Chronic Family History Diabetes mellitus FATHER MOTHER Heart disease FATHER MOTHER Hypertension FATHER MOTHER Kidney disease GRANDMOTHER Social History Smoking Status: Former Smoker Immunizations History of Influenza Vaccine: Yes Influenza Vaccine Date: Apr 22, 2016 History of Tetanus Vaccine?: Yes History of Pneumococcal: Yes Pneumococcal Date: Mar 14, 2013 History of Hepatitis B Vaccine: Yes Hepatitis Immunization Date: Aug 01, 2013 Multi-Drug Resistant Organisms History of MDRO: No Allergies Coded Allergies: Adhesives (Verified Allergy, Mild, RASH, SORES, 09/21/16) Pollen Extract (Unverified Allergy, Unknown, rash, 09/21/16) Home Medications Scheduled Aspirin (Aspirin Ec), 81 MG PO DAILY Atorvastatin (Lipitor), 40 MG PO DAILY Calcium Acetate (Phoslo 667 Mg), 3 CAP PO WM Calcium Acetate (Phoslo 667 Mg), 2 CAP PO WITH SNACKS Cephalexin Monohydrate (Keflex), 500 MG PO BID Insulin Glargine (Lantus Solostar), 10 UNITS SC QPM Isosorbide Mononitrate (Isosorbide Mononitrate ER), 60 MG PO QAM Isosorbide Mononitrate Ext Rel (Imdur Ext Rel), 30 MG PO QAM Metoprolol Tartrate (Lopressor), 50 MG PO BID Pantoprazole (Protonix), 40 MG PO DAILY Ranitidine Hcl (Zantac), 300 MG PO HS Sertraline HCl (Sertraline HCl), 2 TAB PO DAILY Scheduled PRN Dicyclomine Hcl (Dicyclomine Hcl), 1 MG PO QID PRN for CRAMPING Lorazepam (Ativan), 0.5 MG PO DAILY PRN for Anxiety Methocarbamol (Methocarbamol), 500 MG PO BID PRN for Muscle Spasms Tramadol (Ultram), 1 TAB PO TID PRN for Pain Review of Systems Constitutional: + chills, + fatigue, + sweats, + weakness Respiratory: No cough, No dyspnea at rest, No dyspnea on exertion, No hemoptysis, No problem reported, No shortness of breath, No sputum, No wheezing Cardiovascular: No PND, No chest pain, No claudication, No edema, No orthopnea , No palpitations, No problem reported Abdomen: + diarrhea Musculoskeletal: + problem reported (left great toe gangrous non healing infection ) Physical Exam Vital Signs Date Time Temp Pulse Resp B/P Pulse Ox O2 Delivery O2 Flow Rate FiO2 10/23/16 14:00 77 18 122/78 96 Room Air 10/23/16 10:49 36.8 86 20 117/76 96 Room Air General Appearance: no apparent distress Eyes: normal inspection ENT: hearing grossly normal Neck: supple Respiratory/Chest: lungs clear, normal breath sounds, no respiratory distress Cardiovascular: regular rate, rhythm Abdomen/GI: non tender, soft Extremities/Musculoskelatal: + pertinent finding (left great toe markedly erythematous with dusky red discoloartion , dark eschare at end , open wound on bottom with dranage , ) Diagnostics Laboratory Results Results Past 24 Hours Test 10/23/16 11:45 10/23/16 15:43 Range/Units White Blood Count 9.39 4.8-10.8 K/uL Red Blood Count 3.70 4.2-5.4 M/uL Hemoglobin 11.0 12.0-16.0 g/dL Hematocrit 34.8 37-47 % Mean Corpuscular Volume 94.1 80-100 fL Mean Corpuscular Hemoglobin 29.7 25-34 pg Mean Corpuscular Hemoglobin Concent 31.6 32-36 g/dl Platelet Count 388 130-400 K/uL Mean Platelet Volume 10.2 7.4-10.4 fL Neutrophils (%) (Auto) 71.3 % Lymphocytes (%) (Auto) 17.6 % Monocytes (%) (Auto) 6.8 % Eosinophils (%) (Auto) 3.6 % Basophils (%) (Auto) 0.6 % Neutrophils # (Auto) 6.69 1.4-6.5 K/uL Lymphocytes # (Auto) 1.65 1.2-3.4 K/uL Monocytes # (Auto) 0.64 0.11-0.59 K/uL Eosinophils # (Auto) 0.34 0-0.5 K/uL Basophils # (Auto) 0.06 0-0.2 K/uL RDW Standard Deviation 50.8 36.4-46.3 fL RDW Coefficient of Variation 14.7 11.5-14.5 % Immature Granulocyte % (Auto) 0.1 % Immature Granulocyte # (Auto) 0.01 0.00-0.02 K/uL Sodium Level 136 136-145 mmol/L Potassium Level 3.8 3.5-5.1 mmol/L Chloride Level 93 98-107 mmol/L Carbon Dioxide Level 30 21-32 mmol/L Anion Gap 13.0 3-11 mmol/L Blood Urea Nitrogen 33 7-18 mg/dl Creatinine 7.20 0.60-1.20 mg/dl Est Creatinine Clear Calc Drug Dose 11.3 ml/min Estimated GFR () 7.0 Estimated GFR (Non- 6.1 BUN/Creatinine Ratio 4.6 10-20 Random Glucose 239 70-99 mg/dl Calcium Level 9.4 8.5-10.1 mg/dl Lactic Acid Level 1.3 0.4-2.0 mmol/L Microbiology Results 10/23/16 C.difficile Toxin B Gene (PCR) - Final, Complete Positive for C. difficile toxin B gene Diagnostic Radiology LEFT FIRST TOE 3 VIEWS CLINICAL HISTORY: First toe infection. FINDINGS: 3 views of the left first toe are obtained. No prior studies are available for comparison at the time of dictation. The skeletal structures are osteopenic. No fracture is seen. No bony erosion or periostitis is identified. Mild arthritic change is seen at the first metatarsophalangeal joint. Mild soft tissue swelling is suggested in the first toe. No subcutaneous gas or radiodense foreign body is seen. Advanced atherosclerotic calcification is noted in the regional arteries. IMPRESSION: 1. No acute bony abnormality is seen in the left first toe. 2. Osteopenia and mild arthritic change as above. 3. There is mild soft tissue swelling and advanced after carotid calcification of the regional arteries. Electronically signed by: Uriel Thomson M.D. 10/23/2016 11:48 AM Dictated Date/Time: 10/23/2016 11:46 AM Impression Assessment and Plan DIABETIC INFECTION OF LEFT GREAT TOE : follows with wound clinic wound care consulted Xray of left great toe : 1. No acute bony abnormality seen in Left ist toe 2. Osteopenia and mild arthritic change 3. Mild soft tissue swelling no Sub cutaneous gas or radiodense foreign body advanced atherosclerotic calcification noted in regional arteries arterial Doppler ordered to R/o peripheral vascular disease blood /wound culture ordered Empiric ABx with Vancomycin -to be given with dialysis, IV Zosyn ( pharmacy consulted for renal dosing ) ID eval requested MRI of left great toe ordered to R/O Osteomyelitis Ortho eval C DIFF COLITIS : was on ABx recently Keflex for left great toe infection presents with Diarrhea stool C diff toxin assay positive no evidence of sepsis , normal white count , no fever , Lactic acid 1.3 PO Flagyl 500 mg TID -complete 10 days course contact precaution CHRONIC CHF WITH BOTH SYSTOLIC AND DIASTOLIC DYSFUNCTION : no evidence of decompensation or vol overload ECHO on 07/2017 : 1. Normal left ventricular size with low-normal systolic function. Estimated EF 50%. Hypokinesis of the inferolateral, mid inferior, base to mid septal wall. Akinesis of the inferior base. No left ventricular hypertrophy. Type 2 diastolic dysfunction. 2. The left atrium is mildly dilated. 3. There is mild mitral regurgitation. 4. Technically difficult study; IV echo-contrast may enhance image quality to better evaluate LV systolic function. 5. Compared to prior study on 09/22/2016, LV systolic function has declined. cont to monitor cont scheduled HD X3 week ESRD ON HD : gets Hemodialysis on Tuesday/Tuesday /Tuesday follows with Dr Prakash electrolytes and vol status stable no need for emergent dialysis Nephrology consulted for scheduled Dialysis while in hospital ANEMIA OF CHRONIC DISEASE : HB stable at baseline ~11 cont to monitor HX OF RECURRENT GI BLEED : last admission 10/05/16 with hematemesis EGD on 10/07/16 : normal esophagus, stomach , duodenum , no evidence of bleed Pathology : Benign , with evidence of chronic gastritis Immunostain negative for H Pylori CAD S/P PTCA : s/p Bare metal stent on left Cx on 03/2016 completed dual antiplatelet therapy recent ECHO as above no active cardiac issue cont put pt cardiac meds -on Aspirin , Imdur, Lopressor , statin HTN: BP stable cont Imdur , Lopressor HYPERLIPIDEMIA : Cont Lipitor 40 mg daily TYPE 2 DM ON INSULIN : Random glucose 239 possible due to infection cont ABx as out lined above recent Hb A1c on 10/05/16 7.1 cont basal Lantus 10 unit hs insulin SSI Pharmacy consulted for glycemic management GERD: cont PPI HX OF DEPRESSION DISORDER ; mood stable cont Zoloft 100 mg PO Daily DVT PROPHYLAXIS : moderate risk Sub q heparin ( H&H stable , no active bleeding ) FULL CODE DISPOSITION : To be determined PT/OT consult prior to discharge Will continue to follow at Wound care clinic Social service consulted for discharge planning Medicine follow up with Dr Duncan Nephrology follow up with Dr Prakash Level of Care Med/Surg Resuscitation Status FULL RESUSCITATION VTE Prophylaxis VTE Risk Assessment Done? Y/N: Yes Risk Level: Moderate Given or contraindicated: Unfractionated heparin SQ Note In my clinical judgment this beneficiary meets acute admission criteria, established by [facility], that includes being hospitalized through two midnights. Additional Copies To Tamy Becerra D.O., Shahbaz Jones, DO
[2016-10-23] MEDS ORDERED: PIPERACILL/TAZOBAC CONSULT ACTIVE PRN (17:00)
[2016-10-23] MEDS ORDERED: VANCOMYCIN CONSULT ACTIVE PRN (17:00)
--- NOTE | 2016-10-23 17:06 | Pharmacy Progress Note ---
Pharmacy Antibiotic Consult Date of Service: Oct 23, 2016. Pharmacy Dosing Scope Pharmacy is consulted to initiate vancomycin/Zosyn IV dosing therapy, order appropriate labs and adjust drug dose/frequency. Subjective The patient is a 50 year old female admitted on Oct 23, 2016 at 14:59 with a diabetic foot infection possibly osteomyelitis. She is followed by a wound clinic and was previously on Keflex. Now she has C difficle infection. Objective Height (Feet): 5 Height (Inches): 4.00 Weight (Kilograms): 107.000 Lab Results (24hrs): Laboratory Tests Test 10/23/16 11:45 BUN/Creatinine Ratio 4.6 Blood Urea Nitrogen 33 mg/dl Creatinine 7.20 mg/dl White Blood Count 9.39 K/uL Red Blood Count 3.70 M/uL Hemoglobin 11.0 g/dL Hematocrit 34.8 % Mean Corpuscular Volume 94.1 fL Mean Corpuscular Hemoglobin 29.7 pg Mean Corpuscular Hemoglobin Concent 31.6 g/dl Platelet Count 388 K/uL Mean Platelet Volume 10.2 fL Neutrophils (%) (Auto) 71.3 % Lymphocytes (%) (Auto) 17.6 % Monocytes (%) (Auto) 6.8 % Eosinophils (%) (Auto) 3.6 % Basophils (%) (Auto) 0.6 % Neutrophils # (Auto) 6.69 K/uL Lymphocytes # (Auto) 1.65 K/uL Monocytes # (Auto) 0.64 K/uL Eosinophils # (Auto) 0.34 K/uL Basophils # (Auto) 0.06 K/uL Assessment & Plan Loading dose: vancomycin 2150 (20 mg/kg) mg IV X 1 dose then: Random level has been ordered for: since patient is dialysis patient. Goal peak level estimate: between 35 - 40 mcg/mL. Goal trough level estimate: between 10 - 15 mcg/mL (indication: cellulitis. Patient does not appear to be colonized with MRSA according to nares so may be okay to achieve lower trough) Zosyn: loading dose of Zosyn 4.5 gm IV x1 then Zosyn 4.5 gm IV q12 hours due to dialysis patient. Pharmacy will continue to follow and will adjust dose/frequency as necessary. Thank you
[2016-10-23] MEDS ORDERED: PHARMACY GLYCEMIC MGMT CONSULT PRN (17:18)
--- NOTE | 2016-10-23 17:20 | Pharmacy Progress Note ---
Glycemic Control Intl Consult Date of Service Oct 23, 2016. Scope Glycemic Pharmacist consulted by Dr Torres on 10/23/16 for glycemic control and to write orders per [facility] inpatient glycemic control protocol Objective Weight (Kilograms): 107.000 Accuchecks BSG (last 24hrs): Test 10/23/16 11:45 Random Glucose 239 mg/dl (70-99) Laboratory Data (last 24hrs) Test 10/23/16 11:45 Anion Gap 13.0 mmol/L BUN/Creatinine Ratio 4.6 Blood Urea Nitrogen 33 mg/dl Creatinine 7.20 mg/dl Potassium Level 3.8 mmol/L Sodium Level 136 mmol/L White Blood Count 9.39 K/uL Red Blood Count 3.70 M/uL Hemoglobin 11.0 g/dL Hematocrit 34.8 % Mean Corpuscular Volume 94.1 fL Mean Corpuscular Hemoglobin 29.7 pg Mean Corpuscular Hemoglobin Concent 31.6 g/dl Platelet Count 388 K/uL Mean Platelet Volume 10.2 fL Neutrophils (%) (Auto) 71.3 % Lymphocytes (%) (Auto) 17.6 % Monocytes (%) (Auto) 6.8 % Eosinophils (%) (Auto) 3.6 % Basophils (%) (Auto) 0.6 % Neutrophils # (Auto) 6.69 K/uL Lymphocytes # (Auto) 1.65 K/uL Monocytes # (Auto) 0.64 K/uL Eosinophils # (Auto) 0.34 K/uL Basophils # (Auto) 0.06 K/uL Recent Pertinent Medications Outpatient Anti-diabetic Regimen: * Lantus 10 units qHS * A1c = 7.1 % 10/05/16 Risk Factors for Insulin Resistance: * Steroids: * Infection: diabetic foot infection + C diff * Pressors: * IVF: * Recent Surgery * Diet: * Mechanical Ventilation: Assessment & Plan ASSESSMENT: * ADA & AACE recommend a goal blood sugar range 140-180 mg/dl for the majority of critically ill & non-critically ill patients. However, more stringent targets may be selected in individual cases. PLAN FOR INPATIENT GLYCEMIC CONTROL: * Holding outpatient oral diabetes medications * Basal insulin with LANTUS 5 units SQ BID * Correctional Insulin with NOVOLOG per scale ACHS * Goal Range: Low 140 mg/dL - High 180 mg/dL * Correction Factor: 25 mg/dL/unit * Nutritional / Prandial insulin per carb ratio of 1 unit per 15 grams CHO consumed * Please note that the plan above was derived based on current level of insulin resistance and hospital stress. These recommendations are appropriate for inpatient admission only. Plan of care upon discharge will need to be reassessed to avoid potential outpatient hypo/hyperglycemia. Thank you.
[2016-10-23] MEDS ORDERED: VANCOMYCIN INJ 2,150 MG in SODIUM CHLORIDE 0.9% 500ML 500 ML IV ONE (17:30)
[2016-10-23] MEDS ORDERED: PIPERACILL/TAZOBAC IV 4.5 GM in DEXTROSE 5% 100ML 100 ML IV ONE (17:30)
[2016-10-23 18:08] VITALS: BP 179/113; PULSE 102; TEMP 36.7; O2SAT 100; Ht 162.6 cm; Wt 108.4 kg
--- NOTE | 2016-10-23 18:37 | DIAGNOSTIC IMAGING REPORT ---
SINGLE VIEW CHEST CLINICAL HISTORY: Dyspnea. History of CHF. FINDINGS: An AP upright chest radiograph is compared to study dated 10/05/2016. Correlation is made with chest CT dated 07/27/2015. The examination is degraded by large body habitus and apical lordotic positioning. The heart is mildly enlarged and there is atherosclerotic calcification of the thoracic aorta. The pulmonary vasculature is noncongested. Chronic interstitial thickening is similar to previous. No airspace consolidation, large pleural effusion, or pneumothorax is seen. The bony thorax is grossly intact. IMPRESSION: Cardiomegaly with no acute cardiopulmonary and malleus. Electronically signed by: Uriel Thomson M.D. 10/23/2016 6:36 PM Dictated Date/Time: 10/23/2016 6:34 PM
[2016-10-23] MEDS ORDERED: INSULIN GLARGINE SOLOSTAR 100 UNITS/ML 3 ML PEN SC SCH (20:00)
[2016-10-23] MEDS: METRONIDAZOLE 500 MG TAB PO SCH ×2 (20:14→21:58)
[2016-10-23] MEDS: RANITIDINE HCL 150 MG TAB PO SCH (20:14)
[2016-10-23] MEDS: METOPROLOL TARTRATE 50 MG TAB PO SCH (20:15)
[2016-10-23] MEDS: CALCIUM ACETATE 667MG GELCAP PO SCH (20:15)
[2016-10-23] MEDS: INSULIN ASPART 100 UNITS/ML 3 ML PEN SC SCH (20:21)
[2016-10-23] MEDS: HEPARIN SOD 5000 UNIT/0.5 ML CARP SQ SCH (20:26)
[2016-10-23] MEDS: LORAZEPAM 0.5 MG TAB PO PRN (22:16)
[2016-10-23] MEDS: TRAMADOL HCL 50 MG TAB PO PRN (22:17)
--- NOTE | 2016-10-23 22:39 | DIAGNOSTIC IMAGING REPORT ---
MRI OF THE LEFT FOREFOOT WITHOUT IV CONTRAST CLINICAL HISTORY: Foot infection. COMPARISON STUDY: Radiographs of the left 1st toe dated 10/23/2016. TECHNIQUE: MRI of the left forefoot is performed utilizing various T1 and T2-weighted sequences in the axial, sagittal, and coronal planes. IV contrast was not administered for this examination. FINDINGS: There is mild marrow edema seen on the STIR images within the tuft of the 1st distal phalanx. There is only minimal drop in signal on the T1-weighted sequences. No cortical disruption is identified. No additional foci of marrow signal abnormality are seen in the forefoot. A cutaneous defect in the distal aspect of the 1st toe suggests ulceration. There is soft tissue edema and thickening within the 1st toe suggesting cellulitis. No organized fluid collection is identified. The visualized flexor and extensor tendons appear intact. IMPRESSION: 1. There is marrow edema seen within the tuft of the 1st distal phalanx with mild drop in signal on the T1-weighted sequences. The appearance suggests osteomyelitis. No clear cortical destruction is seen. 2. No additional foci of marrow abnormality are identified in the visualized forefoot. 3. Soft tissue edema and ulcerations are seen in the 1st toe. The appearance suggests cellulitis. No organized fluid collection is identified. Dictated: 10/23/2016 6:17 PM Transcribed: 10/23/2016 10:39 PM [email or web address] Electronically signed by: Uriel Thomson M.D. 10/23/2016 10:43 PM Dictated Date/Time: 10/23/2016 6:17 PM
--- NOTE | 2016-10-23 22:47 | DIAGNOSTIC IMAGING REPORT ---
ULTRASOUND LEFT LOWER EXTREMITY ARTERIAL CLINICAL HISTORY: Gangrene of the left 1st toe. COMPARISON STUDY: No priors. TECHNIQUE: Real-time, grayscale, and color Doppler sonography of the arteries of the left lower extremities performed from the inguinal crease to the foot. Ankle-brachial indices were attempted. The vessels were noncompressible and ankle-brachial indices could not be calculated. Toe pressures could not be assessed due to wounds. FINDINGS: There is advanced atherosclerotic plaque and irregularity seen throughout the arteries of the left lower extremity. There are biphasic arterial waveforms in the left common femoral artery with velocities measuring up to 83 cm/s. The left profunda femoris artery is patent with velocities measuring up to 34 cm/s. There are monophasic to biphasic waveforms seen throughout the superficial femoral artery. Velocities measure up to 237 cm/s suggesting some degree of stenosis. Velocities in the mid to distal superficial femoral artery measure up to 101 cm/s. There are monophasic arterial waveforms in the popliteal artery with velocities measuring up to 46 cm/s. There is two-vessel runoff to the foot. The distal left peroneal artery appears occluded. Velocities within the peroneal artery proximally measure up to 46 cm/s. Velocities in the posterior tibial artery measure up to 33 cm/s, and velocities in the anterior tibial artery measure up to 41 cm/s. The dorsalis pedis artery is patent with velocities measuring up to 55 cm/s. IMPRESSION: 1. Advanced peripheral vascular disease as above. 2. There is two-vessel runoff to the foot. The distal left peroneal artery is occluded. 3. Ankle-brachial indices could not be assessed. 4. Focal/high-grade stenosis is suspected in the proximal left superficial femoral artery. Dictated: 10/23/2016 7:55 PM Transcribed: 10/23/2016 10:47 PM [email or web address] Electronically signed by: Uriel Thomson M.D. 10/23/2016 10:50 PM Dictated Date/Time: 10/23/2016 7:55 PM
[2016-10-24 00:09] VITALS: BP 153/72; PULSE 78; TEMP 36.8; O2SAT 99
[2016-10-24] MEDS: PIPERACILL/TAZOBAC IV 4.5 GM in DEXTROSE 5% 100ML IV SCH ×2 (04:07→16:25)
[2016-10-24] MEDS: ONDANSETRON 4MG OD TAB PO PRN ×3 (05:10→20:55)
[2016-10-24] MEDS ORDERED: NURSING DECISION MEDICATION ORDER SCH (05:15)
[2016-10-24] MEDS: HEPARIN SOD 5000 UNIT/0.5 ML CARP SQ SCH ×3 (05:25→20:46)
[2016-10-24 07:30] VITALS: BP 147/68; PULSE 80; TEMP 36.7; O2SAT 98
[2016-10-24 07:32] LABS: HEMATOCRIT 32.1 % (37-47); MEAN CELL VOLUME 96.4 fL (80-100); MEAN CORPUSCULAR HEMOGLOBIN 31.2 pg (25-34); MEAN CORPUSCULAR HGB CONC 32.4 g/dl (32-36); MEAN PLATELET VOLUME 10.2 fL (7.4-10.4); PLATELET COUNT 366 K/uL (130-400); RED BLOOD COUNT 3.33 M/uL (4.2-5.4)
[2016-10-24] MEDS ORDERED: SERTRALINE HCL 100 MG TAB PO SCH (08:00)
[2016-10-24] MEDS ORDERED: CLOPIDOGREL BISULFATE 75 MG TAB PO SCH (08:00)
[2016-10-24] MEDS ORDERED: CALCIUM ACETATE 667MG GELCAP PO PRN (08:00)
[2016-10-24 08:19] LABS: BUN/CREATININE RATIO 5.2 (10-20); CREATININE 8.7 mg/dl (0.60-1.20); MAGNESIUM 2.5 mg/dl (1.8-2.4)
--- NOTE | 2016-10-24 08:21 | Progress Note ---
Progress Note Date of Service Oct 24, 2016. Progress Note ID Consult dictated #[id number] A/P: 1. left first toe osteo 2. c. diff colitis -Continue abx, follow cultures -vaughan for c diff, does not want po vanco secndary to taste -will follow, thank you
[2016-10-24] MEDS: INSULIN ASPART 100 UNITS/ML 3 ML PEN SC SCH ×4 (09:32→20:46)
[2016-10-24] MEDS: ASPIRIN 81 MG ECTAB PO SCH (09:38)
[2016-10-24] MEDS: METRONIDAZOLE 500 MG TAB PO SCH ×3 (09:38→20:51)
[2016-10-24] MEDS: ISOSORBIDE MONONITRATE 30 MG TABCR PO SCH (09:39)
[2016-10-24] MEDS: ISOSORBIDE MONONITRATE 60 MG TABCR PO SCH (09:40)
[2016-10-24] MEDS: ATORVASTATIN 40 MG TAB PO SCH (09:40)
[2016-10-24] MEDS: METOPROLOL TARTRATE 50 MG TAB PO SCH ×2 (09:41→20:50)
[2016-10-24] MEDS: CALCIUM ACETATE 667MG GELCAP PO SCH ×3 (09:41→16:30)
[2016-10-24] MEDS: PANTOprazole SOD 40 MG TAB PO SCH (09:41)
[2016-10-24] MEDS: TRAMADOL HCL 50 MG TAB PO PRN (09:42)
--- NOTE | 2016-10-24 10:16 | Pharmacy Progress Note ---
Pharmacy Antibiotic Prog Note Date of Service: Oct 24, 2016. Subjective: The patient is currently receiving Zosyn, po metronidazole & IV Vancomycin based on random levels/HD schedule. The patient is currently on day #2 of IV therapy. Objective: Height (Feet): 5 Height (Inches): 4.00 Weight (Kilograms): 107.000 Lab Results (24hrs): Laboratory Tests Test 10/23/16 11:45 10/24/16 07:26 BUN/Creatinine Ratio 4.6 5.2 Blood Urea Nitrogen 33 mg/dl 45 mg/dl Creatinine 7.20 mg/dl 8.70 mg/dl White Blood Count 9.39 K/uL 9.20 K/uL Red Blood Count 3.70 M/uL Hemoglobin 11.0 g/dL Hematocrit 34.8 % Mean Corpuscular Volume 94.1 fL Mean Corpuscular Hemoglobin 29.7 pg Mean Corpuscular Hemoglobin Concent 31.6 g/dl Platelet Count 388 K/uL Mean Platelet Volume 10.2 fL Neutrophils (%) (Auto) 71.3 % Lymphocytes (%) (Auto) 17.6 % Monocytes (%) (Auto) 6.8 % Eosinophils (%) (Auto) 3.6 % Basophils (%) (Auto) 0.6 % Neutrophils # (Auto) 6.69 K/uL Lymphocytes # (Auto) 1.65 K/uL Monocytes # (Auto) 0.64 K/uL Eosinophils # (Auto) 0.34 K/uL Basophils # (Auto) 0.06 K/uL Micro Results: Item Value Date Time Random Vancomycin Level 28.6 mcg/ml 10/24/16 0726 Recent Pertinent Medications: Item Value Date Time Piperacillin Sod/ 120 ml @ 200 mls/hr 10/23/16 1730 Tazobactam Sod NOW ONCE/IV 10/23/162014 4.5 gm/Dextrose Piperacillin Sod/ 120 ml @ 30 mls/hr 10/24/16 0400 Tazobactam Sod Q12H/IV 10/24/16 0407 4.5 gm/Dextrose Vancomycin HCl 543 ml @ 200 mls/hr 10/23/16 1730 2150 mg/Sodium NOW ONCE/IV 10/23/162013 Chloride Metronidazole 500 mg 10/23/16 1700 (Flagyl Tab) TID/PO 10/24/16 0938 Assessment & Plan: Vancomycin * 50 yo F with left first toe osteo, cellulitis & c diff colitis * Home HD schedule tue/tue/tue -- will obtain levels with AM labs on HD days * Goal trough level: 15-20mcg/mL until cx results * Random level this mornin.6mcg/mL --> Therapeutic * Next random level ordered for tomorrow w/ AM labs Pharmacy will continue to follow and will adjust dose/frequency as necessary. Thank you
--- NOTE | 2016-10-24 10:22 | NEPHROLOGY CONSULTATION ---
DATE OF CONSULTATION: 10/24/2016 DATE OF CONSULTATION: 10/24/2016. ATTENDING OF RECORD: Dr. Parham. REASON FOR CONSULTATION: ESRD. HISTORY OF PRESENT ILLNESS: This is a 50-year-old female who dialyzes at the [facility] on Mondays, Wednesdays, and Fridays. Last dialysis was Tuesday. I saw the patient on dialysis on that day. The patient was complaining of left toe pain at that time and was on oral Keflex and was to see wound care next week. The patient's toe started to have more swelling and redness and pain and also started to develop some more diarrhea and came in to be evaluated and found to have a diabetic wound as well as C. diff. The patient is otherwise comfortable, denies any fevers or chills. PAST MEDICAL HISTORY: Heart disease, status post stent in March 2016, carotid stenosis, type 2 diabetes, hypertension, ischemic cardiomyopathy, obesity. PAST SURGICAL HISTORY: Cardiac stent placement, fistula placement. FAMILY HISTORY: Significant for diabetes. SOCIAL HISTORY: Former smoker, no alcohol, no drugs. Lives independently. CURRENT MEDICATIONS: Zoloft 100 mg at night, aspirin 81 mg daily, Lipitor 40 mg p.o. daily, PhosLo 2 with snacks, Imdur 90 mg daily, Protonix 40 mg daily, Zosyn 4.5 grams IV q. 12, heparin 5,000 units subQ q. 8, Zantac 300 mg at night, Lantus 5 units subQ b.i.d., Lopressor 50 mg p.o. b.i.d., PhosLo 3 p.o. t.i.d. with meals, Flagyl 500 mg p.o. t.i.d. REVIEW OF SYSTEMS: No fevers or chills. No headaches, no blurry vision, no dysphagia, no chest pain. No shortness of breath. Does have some nausea which she is attributing to the antibiotics. Positive diarrhea. No abdominal pain. Positive left great toe pain and redness. All other review of systems otherwise negative. PHYSICAL EXAMINATION: VITAL SIGNS: Temperature 36.8, pulse 78, respiratory rate 18, blood pressure 153/72, satting 99% on room air. GENERAL: Awake, alert, oriented x3, obese. EYES: No scleral icterus. ENT: Moist mucous membranes. NECK: Supple. PULMONARY: Clear to auscultation. CARDIAC: Regular rate and rhythm. ABDOMEN: Bowel sounds positive, soft, nontender, nondistended. EXTREMITIES: Left great toe pain is currently wrapped up, +1 edema. NEUROLOGICALLY: Nonfocal. DERMATOLOGIC: No rash or ulcers other than the left great toe. LABORATORY DATA: White count 9, H\T\H 11 and 34, platelet count is 388. Sodium was 136, potassium 3.8, chloride is 93, bicarbonate is 30, BUN is 33, creatinine 7.2, glucose 239. Lactic acid 1.3, calcium 9.4. C. diff is positive. Chest x-ray shows cardiomegaly with no acute cardiopulmonary findings. IMPRESSION AND PLAN: 1. End-stage renal disease: The patient dialyzes Mondays, Wednesdays and Fridays. No emergent need for dialysis today. Will plan on dialysis tomorrow on her regularly scheduled day. 2. Anemia of renal failure. We will continue Procrit on dialysis for a goal hemoglobin 10 to 11. 3. Renal osteodystrophy. Phos levels are improved at last check and will continue her current prescription of 3 PhosLo with meals and 2 with snacks. Appreciate consultation.
--- NOTE | 2016-10-24 12:06 | Pharmacy Progress Note ---
Glycemic Control: Progress Nt Date of Service Oct 24, 2016. Scope Glycemic Pharmacist consulted by on 10/23/16 for glycemic control and to write orders per [facility] inpatient glycemic control protocol. Objective Accuchecks BSG (last 24hrs): Test 10/24/16 07:26 Random Glucose 156 mg/dl (70-99) Laboratory Data (last 24hrs) Test 10/24/16 07:26 Anion Gap 15.0 mmol/L BUN/Creatinine Ratio 5.2 Blood Urea Nitrogen 45 mg/dl Creatinine 8.70 mg/dl Potassium Level 4.0 mmol/L Sodium Level 136 mmol/L White Blood Count 9.20 K/uL Recent Pertinent Medications Outpatient Anti-diabetic Regimen: * Lantus 10 units qHS * A1c - n/a; not accurate d/t HD Risk Factors for Insulin Resistance: * Infection: L toe osteo (ID consulted): On Vancomycin and Zosyn IV; Also positive for C. diff: On Flagyl PO * Diet:DM2/renal Assessment & Plan ASSESSMENT: * ADA & AACE recommend a goal blood sugar range 140-180 mg/dl for the majority of critically ill & non-critically ill patients. However, more stringent targets may be selected in individual cases. * 50 yo female admitted with Left toe osteomyelitis, now receiving IV antibiotics to treat. Pt known to the pharmacy glycemic service from past admissions. * A1c on file from 10/05/16 is not accurate d/t pt receiving HD. * Based upon past admissions this pt has minimal insulin requirements. Therefore, will proceed with caution in adjusting insulin doses. May even consider removing carb ratio if BSGs seem to be overcorrecting during the daytime. * Will adjust Lantus scale and schedule once daily at bedtime based upon previous admission data. If FBG appears to be elevated will increase Lantus dosing. * Will also narrow BSG goal range for improved glycemic control. PLAN FOR INPATIENT GLYCEMIC CONTROL: * Adjust/decrease - Basal insulin: Lantus qHS: * 0 units for BSG below 110 mg/dl * 5 units for BSG 110 - 180 mg/dl * 10 units for BSG above 180 mg/dl * Continue - Correctional Insulin with NOVOLOG per scale ACHS * Goal Range: Low 120 mg/dL - High 160 mg/dL * Correction Factor: 25 mg/dL/unit * Nutritional / Prandial insulin per carb ratio of 1 unit per 15 grams CHO consumed * Please note that the plan above was derived based on current level of insulin resistance and hospital stress. These recommendations are appropriate for inpatient admission only. Plan of care upon discharge will need to be reassessed to avoid potential outpatient hypo/hyperglycemia. Thank you.
--- NOTE | 2016-10-24 13:13 | ORTHOPEDIC CONSULTATION ---
DATE OF CONSULTATION: 10/24/2016 DATE OF CONSULTATION: 10/24/2016. CHIEF COMPLAINT: Left great toe infection. HISTORY OF PRESENT ILLNESS: The patient is a 50-year-old female with past medical history of end-stage renal disease on hemodialysis, type 2 diabetes insulin-dependent, history of coronary artery disease. She has been treating a left great toe diabetic nonhealing wound for about 6 weeks. She follows at the wound clinic. Over the last 2 weeks she has been having increasing pain and swelling in that region. Tuesday she was started on Keflex, did not really respond to the Keflex and increasing pain and redness. She was changed to a different antibiotic the day before presentation, but then with worsening pain, redness, presented to the Emergency Room. She has been admitted and placed on IV antibiotics. She states that the toe feels significantly better now that she has been on IV antibiotics. PAST MEDICAL HISTORY: Coronary artery disease, carotid stenosis, type 2 diabetes, dyslipidemia, end-stage renal disease on dialysis, GERD, hypertension, ischemic cardiomyopathy, obesity, tobacco use. PAST SURGICAL HISTORY: AV fistula formation. FAMILY HISTORY: Diabetes, coronary artery disease, hypertension. SOCIAL HISTORY: Former smoker. ALLERGIES: ADHESIVES, POLLEN. MEDICATIONS: Aspirin, Lipitor, PhosLo, Keflex, Lantus, isosorbide, Imdur, Lopressor, Protonix, Zantac, sertraline, Ativan, methocarbamol, Ultram. REVIEW OF SYSTEMS: As above. PHYSICAL EXAMINATION: VITAL SIGNS: Afebrile. Vital signs stable. GENERAL: Alert and oriented x3, no acute distress. Mood and affect are normal. She is pleasant and cooperative with examination. HEAD, EYES, EARS, NOSE, AND THROAT: Atraumatic. CHEST: Clear. CARDIOVASCULAR: Regular rate and rhythm. ABDOMEN: Soft, nontender. EXTREMITIES: Examination of the left great toe there is region of small eschar measuring about 3 mm x 4 mm on the plantar medial side of the toe as well as a small region near the tip of the distal phalanx near the nail. There is no surrounding drainage appreciated. There is some pinkish type inflammation throughout the toe but no silverio red erythema. She is able to move the toe with some pain, but she states it is significantly improved now that she has been on the IV antibiotics. LABORATORY DATA: White blood cell count 9.3, hemoglobin 11. C. diff toxin screen is positive. X-ray of the toe no bony abnormality is seen. MRI demonstrates edema in the bone of the tuft of the distal phalanx. No fluid collection is appreciated. Without the ability to add IV contrast due to her kidney function it is difficult to definitively say whether the edema in the bone is suggestive of osteomyelitis or reactive bony edema from the cellulitis. ASSESSMENT: Left great toe diabetic wound. PLAN: The patient states that the pain and swelling in her toe is significantly improved while she was started on IV antibiotics. There is some surrounding erythema in the toe. The toe itself at least for now appears viable. There is some small region of eschar that currently does not have any drainage from. For now, I would recommend observing the toe for another 24 hours to assess her response to the IV antibiotics. The regions of eschar may just need some local wound debridement. I do not know for certain if this is something that would require amputation at this time. Will discuss the case with Dr. Mohan and get his opinion as to whether this simply needs some local wound care or if true surgery is required but for the time being my recommendation would be for continued IV antibiotics and close observation.
--- NOTE | 2016-10-24 15:37 | Progress Note ---
Medicine Progress Note Date & Time of Visit: Oct 24, 2016 at 15:10. Subjective Pt was seen and examined Sitting in bed with no distress Pt said that the pain in the left great toe improved she denies any chest pain, palpitation and sob Objective Last 8 Hrs Date Time Temp Pulse Resp B/P Pulse Ox O2 Delivery O2 Flow Rate FiO2 10/24/16 08:00 Room Air 10/24/16 07:30 36.7 80 20 147/68 98 Room Air Physical Exam: General- No acute distress Head- atraumatic Eyes- PERRL, EOMI ENT- oropharynx clear Neck- supple, no JVD Lungs- clear to auscultation and percussion Heart- regular rhythm; no murmur Abdomen- normal bowel sounds, soft Extremities-no calf tenderness, wound in the left great toe wrapped with clean dressing Neuro- alert, oriented x 3; PERRL, EOMI; no facial palsy; Skin- warm & dry Laboratory Results: Last 24 Hours Test 10/23/16 15:43 10/23/16 20:06 10/24/16 07:26 10/24/16 08:17 Lactic Acid Level 1.3 mmol/L Bedside Glucose 137 mg/dl 149 mg/dl White Blood Count 9.20 K/uL Red Blood Count 3.33 M/uL Hemoglobin 10.4 g/dL Hematocrit 32.1 % Mean Corpuscular Volume 96.4 fL Mean Corpuscular Hemoglobin 31.2 pg Mean Corpuscular Hemoglobin Concent 32.4 g/dl RDW Standard Deviation 52.0 fL RDW Coefficient of Variation 14.7 % Platelet Count 366 K/uL Mean Platelet Volume 10.2 fL Sodium Level 136 mmol/L Potassium Level 4.0 mmol/L Chloride Level 98 mmol/L Carbon Dioxide Level 23 mmol/L Anion Gap 15.0 mmol/L Blood Urea Nitrogen 45 mg/dl Creatinine 8.70 mg/dl Est Creatinine Clear Calc Drug Dose 9.3 ml/min Estimated GFR () 5.6 Estimated GFR (Non- 4.8 BUN/Creatinine Ratio 5.2 Random Glucose 156 mg/dl Calcium Level 9.0 mg/dl Magnesium Level 2.5 mg/dl Random Vancomycin Level 28.6 mcg/ml Test 10/24/16 12:24 Bedside Glucose 156 mg/dl Date/Time Source Procedure Growth Status 10/23/16 20:15 Nasal MRSA DNA Surveillance Screen - Final Specimen Negative for MRSA by DNA Probe Complete 10/23/16 20:15 Ulcer Toe Left 1 Gram Stain - Final Resulted 10/23/16 20:15 Wound Culture - Preliminary Coag Neg Staphylococcus Resulted Assessment & Plan DIABETIC INFECTION OF LEFT GREAT TOE : MRI of the left foot showed a marrow edema seen within the tuft of the 1st distal phalanx with mild drop in signal on the T1-weighted sequences. The appearance suggests osteomyelitis. Soft tissue edema and ulcerations are seen in the 1st toe. On IV zosyn/Vanco ID on board recommended to continue current treatment Ortho consulted and no intervention at this time. will evaluate the toe again in am to check for improvement Will consult wound doctor Continue daily dressing care Wound cx growth coag negative staph LEFT PERONEAL ARTERY OCCLUSION U/S of LE showed distal left peroneal artery is occluded. Will consult vascular Will do limb check C DIFF COLITIS : Recently was on Keflex for left great toe infection presents with Diarrhea stool C diff toxin assay positive afebrile, no leukocytosis Continue PO Flagyl 500 mg TID -complete 10 days course contact precaution Diarrhea improved CHRONIC CHF WITH BOTH SYSTOLIC AND DIASTOLIC DYSFUNCTION : no evidence of decompensation or vol overload Stable ECHO on 07/2017 : 1. Normal left ventricular size with low-normal systolic function. Estimated EF 50%. Hypokinesis of the inferolateral, mid inferior, base to mid septal wall. Akinesis of the inferior base. No left ventricular hypertrophy. Type 2 diastolic dysfunction. 2. The left atrium is mildly dilated. 3. There is mild mitral regurgitation. 4. Technically difficult study; IV echo-contrast may enhance image quality to better evaluate LV systolic function. 5. Compared to prior study on 09/22/2016, LV systolic function has declined. ESRD ON HD HD on Tuesday/Tuesday /Tuesday Nephrology on board Follow up with Dr. Guzman ANEMIA OF CHRONIC DISEASE : Hgb on admission stable 11 Today hgb 10.4 Stable HX OF RECURRENT GI BLEED : last admission 10/05/16 with hematemesis EGD on 10/07/16 : normal esophagus, stomach , duodenum , no evidence of bleed Pathology : Benign , with evidence of chronic gastritis Immunostain negative for H Pylori Stable CAD S/P PTCA : s/p Bare metal stent on left Cx on 03/2016 continue Aspirin, Imdur, Lopressor, statin Asymptomatic HTN: BP stable cont Imdur, Lopressor HYPERLIPIDEMIA : Cont Lipitor 40 mg daily TYPE 2 DM ON INSULIN : Last Hba1c 7.1 was 10/05/16 possible due to infection cont basal Lantus 10 unit hs insulin [facility] Pharmacy consulted for glycemic management GERD: cont PPI HX OF DEPRESSION DISORDER ; mood stable cont Zoloft 100 mg PO Daily DVT PROPHYLAXIS : moderate risk Sub q heparin ( H&H stable , no active bleeding ) FULL CODE DISPOSITION : Will need to continue to follow with outpatient wound care Consultants: ID Ortho Wound Care PT/OT Current Inpatient Medications: Current Inpatient Medications Medications (Trade) Dose Ordered Sig/Bladimir Route Start Time Stop Time Status Last Admin Dose Admin Metronidazole (Flagyl Tab) 500 mg TID PO 10/23/16 17:00 11/02/16 16:59 10/24/16 14:26 500 MG Heparin Sodium (Porcine) (Heparin Sq 5000 Unit/0.5ml) 5,000 unit Q8 SQ 10/23/16 22:00 11/22/16 21:59 Acetaminophen (Tylenol Tab) 650 mg Q4H PRN PO 10/23/16 15:00 11/22/16 14:59 Ondansetron HCl (Zofran Inj) 4 mg Q6H PRN IV 10/23/16 15:00 11/22/16 14:59 Glucose (Glucose 40% Gel) 15-30 GRAMS 15 GRAMS... UD PRN PO 10/23/16 15:00 11/22/16 14:59 Glucose (Glucose Chew Tab) 4-8 Tablets 4 Tabl... UD PRN PO 10/23/16 15:00 11/22/16 14:59 Dextrose (Dextrose 50% 50ML Syringe) 25-50ML OF 50% DW IV FOR... UD PRN IV 10/23/16 15:00 11/22/16 14:59 Glucagon (Glucagon Inj) 1 mg UD PRN SQ 10/23/16 15:00 11/22/16 14:59 Aspirin (Ecotrin Tab) 81 mg DAILY PO 10/24/16 08:00 11/23/16 08:59 10/24/16 09:38 81 MG Atorvastatin Calcium (Lipitor Tab) 40 mg DAILY PO 10/24/16 08:00 11/23/16 08:59 10/24/16 09:40 40 MG Calcium Acetate (Phoslo Cap) 1,334 mg DAILY PRN PO 10/24/16 08:00 11/23/16 07:59 10/24/16 14:26 1,334 MG Calcium Acetate (Phoslo Cap) 2,001 mg TIDM PO 10/23/16 17:00 11/22/16 16:59 10/24/16 11:59 2,001 MG Dicyclomine HCl (Bentyl Cap) 10 mg QID PRN PO 10/23/16 16:15 11/22/16 16:14 Isosorbide Mononitrate (Imdur Ext Rel Tab) 60 mg QAM PO 10/24/16 08:00 11/23/16 08:59 10/24/16 09:40 60 MG Isosorbide Mononitrate (Imdur Ext Rel Tab) 30 mg QAM PO 10/24/16 08:00 11/23/16 08:59 10/24/16 09:39 30 MG Lorazepam (Ativan Tab) 0.5 mg DAILY PRN PO 10/23/16 16:15 11/22/16 16:14 10/23/16 22:16 0.5 MG Methocarbamol (Robaxin Tab) 500 mg BID PRN PO 10/23/16 16:15 11/22/16 16:14 Metoprolol Tartrate (Lopressor Tab) 50 mg BID PO 10/23/16 20:00 11/22/16 20:59 10/24/16 09:41 50 MG Pantoprazole Sodium (Protonix Tab) 40 mg DAILY PO 10/24/16 08:00 11/23/16 08:59 10/24/16 09:41 40 MG Ranitidine HCl (zANTac TAB) 300 mg HS PO 10/23/16 21:00 11/22/16 20:59 10/23/16 20:14 300 MG Tramadol HCl (Ultram Tab) 50 mg TID PRN PO 10/23/16 16:15 11/22/16 16:14 10/24/16 09:42 50 MG Insulin Aspart (novoLOG ASPART) SLIDING SCALE ACHS SC 10/23/16 17:00 11/22/16 16:59 10/24/16 13:14 4 UNITS Miscellaneous Information 1 ea 1 ea UD PRN N/A 10/23/16 17:18 11/22/16 17:17 Piperacillin Sod/ Tazobactam Sod/ Dextrose (Zosyn Iv/D5 100ml) 120 ml @ 30 mls/hr Q12H IV 10/24/16 04:00 12/05/16 03:59 10/24/16 04:07 30 MLS/HR Piperacillin Sod/ Tazobactam Sod (Consult) 1 ea UD PRN N/A 10/23/16 17:00 11/22/16 16:59 Vancomycin HCl (Consult) 1 ea UD PRN N/A 10/23/16 17:00 11/22/16 16:59 Ondansetron HCl (Zofran Odt) 4 mg Q4H PRN PO 10/24/16 05:00 11/23/16 04:59 10/24/16 09:45 4 MG Sertraline HCl (Zoloft Tab) 100 mg HS PO 10/24/16 21:00 11/23/16 20:59 Insulin Glargine (Lantus Solostar Pen) see protocol text HS SC 10/24/16 21:00 11/23/16 20:59
[2016-10-24 17:48] VITALS: BP 150/64; PULSE 64; TEMP 36.5; O2SAT 99
--- NOTE | 2016-10-24 20:13 | INFECT. DISEASE CONSULTATION ---
DATE OF CONSULTATION: 10/24/2016 REQUESTING PHYSICIAN: Dr. Parham. HISTORY OF PRESENT ILLNESS: This is a 50-year-old female who was admitted from the ER after she had worsening toe ulceration. She states she was initially supposed to see the wound care center; however, she has had issues with transportation. She also was supposed to be seen by home care following last week; however, this was not initiated prior to her arrival to the Emergency Room. She was following with her family physician for this. She states she did have an outpatient culture of her foot obtained on Tuesday. She does not know the results of this; however, she was placed on 2 separate antibiotics. She also had some complaints of diarrhea yesterday. C. diff was performed in the Emergency Room and was positive. She is now on Flagyl and vancomycin intravenously and Zosyn. She is a patient who has been on dialysis for some time. Her creatinine upon admission was 7.2. She has been tolerating dialysis as an outpatient. She denies any fevers or chills. She does complain of an ulcer on her left thumb, on her right index finger and also of the left first toe. She did have an x-ray which was unremarkable; however, an MRI does show osteomyelitis of the first digit with surrounding cellulitis and no fluid collection. She states that she has been dealing with this ulcer for about 6 weeks and it has been worsening. She has significant pain in the area. She is tolerating her antibiotics. She states her diarrhea is better today. She is eating well. All remaining review of systems are reviewed and are negative except for as noted above. PAST MEDICAL HISTORY: Significant for seasonal allergies, coronary artery disease, carotid stenosis, type 2 diabetes, hyperlipidemia, end-stage renal disease, on dialysis, GERD, hypertension, cardiomyopathy, morbid obesity. PAST SURGICAL HISTORY: Significant for cataract surgeries and dialysis grafting. FAMILY HISTORY: Noncontributory. SOCIAL HISTORY: Significant for history of tobacco use. ALLERGIES: SHE IS ALLERGIC TO ADHESIVES. CURRENT MEDICATIONS: Include Zoloft, aspirin, Lipitor, PhosLo and/or Protonix, Zofran, Zosyn, heparin, Zantac, Lopressor, Flagyl, insulin, vancomycin, Bentyl, Ativan, Robaxin, Ultram, Tylenol. PHYSICAL EXAMINATION: VITAL SIGNS: She is afebrile since admission to the hospital, pulse 78, respiratory rate 18, blood pressure 153/72, oxygen saturation is 99% on room air. GENERAL: She is awake, alert and oriented x3. She is in no acute distress. HEENT: Mucous membranes are moist. HEART: Regular. LUNGS: Clear bilaterally. ABDOMEN: Soft, nontender and nondistended. EXTREMITIES: There is no lower extremity edema. She does have a necrotic ulcer on the right first and second fingers. There is no surrounding erythema, warmth, drainage or tenderness. She does have an ulceration on the left thumb. This is without evidence of necrosis or surrounding erythema. She did not agree to take down her foot dressing secondary to pain; however, I was able to see photographs. She does have a black eschar over the tip of that toe. The toenail is intact. She has significant tenderness to palpation. LABORATORY STUDIES: CBC today reveals a white blood cell count of 9.2, hemoglobin 10.4, platelets are 366. Vancomycin level today is 28.6. Chemistry panel yesterday reveals a sodium of 136, potassium 3.8, BUN 33, creatinine 7.2, glucose is 239. Lactic acid is 1.3. Wound culture is pending with few GPCs on Gram stain. C. diff was positive. Chest x-ray done in the Emergency Room showed cardiomegaly with no infiltrate. Lower extremity ultrasound was done in the ER and showed peripheral vascular disease. MRI is as above. ASSESSMENT AND PLAN: Osteomyelitis of the foot, Clostridium difficile colitis. At this time, she will be continued on empiric antibiotics. She does not wish to be placed on p.o. vancomycin secondary to the taste. She will be continued on Flagyl and IV antibiotics. Her vancomycin level was elevated today and this will be held until it is less than 15. Final antibiotic recommendations will be made when cultures return. I would suggest surgical evaluation. I suspect she may require surgical intervention for cure. Thank you for this consultation. BALTAZAR
[2016-10-24] MEDS: INSULIN GLARGINE SOLOSTAR 100 UNITS/ML 3 ML PEN SC SCH (20:48)
[2016-10-24] MEDS: SERTRALINE HCL 100 MG TAB PO SCH (20:51)
[2016-10-24] MEDS: RANITIDINE HCL 150 MG TAB PO SCH (20:51)
[2016-10-24 20:52] VITALS: BP 145/74; PULSE 67
[2016-10-24] MEDS ORDERED: INSULIN GLARGINE SOLOSTAR 100 UNITS/ML 3 ML PEN SC SCH (21:00)
[2016-10-25] VITALS (20 sets, daily range): BP systolic 96–178; BP diastolic 45–102; PULSE 51–76; TEMP 36.5–36.9; O2SAT 96–99
[2016-10-25] MEDS: PIPERACILL/TAZOBAC IV 4.5 GM in DEXTROSE 5% 100ML IV SCH ×2 (03:37→18:18)
[2016-10-25] MEDS: HEPARIN SOD 5000 UNIT/0.5 ML CARP SQ SCH ×3 (04:50→20:48)
[2016-10-25 07:08] LABS: BUN/CREATININE RATIO 6.4 (10-20); CALCIUM 8.9 mg/dl (8.5-10.1); MAGNESIUM 2.6 mg/dl (1.8-2.4); POTASSIUM 4.4 mmol/L (3.5-5.1)
[2016-10-25] MEDS: CALCIUM ACETATE 667MG GELCAP PO SCH ×3 (07:45→18:21)
[2016-10-25] MEDS: METRONIDAZOLE 500 MG TAB PO SCH ×3 (08:00→20:27)
[2016-10-25] MEDS ORDERED: EPOETIN ALFA 10,000 UNITS/ML VIAL IV. SCH (08:30)
[2016-10-25] MEDS: INSULIN ASPART 100 UNITS/ML 3 ML PEN SC SCH ×4 (08:58→20:36)
[2016-10-25] MEDS: ONDANSETRON 4MG OD TAB PO PRN (09:00)
--- NOTE | 2016-10-25 09:53 | Nephrology Progress Note ---
Nephrology Progress Note Date of Service: Oct 25, 2016. Subjective 50 yo female with diabetic foot ulcer being evaluated by vascular surgery and cdiff with diarrhea which is much improved. for dialysis today. pt doing well. no complaints. Objective Date Time Temp Pulse Resp B/P Pulse Ox O2 Delivery O2 Flow Rate FiO2 10/25/16 07:53 36.7 64 19 154/67 98 Room Air 10/25/16 00:23 36.7 76 18 128/67 96 Room Air 10/25/16 00:00 Room Air 10/24/16 20:52 67 145/74 10/24/16 20:00 Room Air 10/24/16 17:48 36.5 64 20 150/64 99 Room Air 10/24/16 16:00 Room Air Physical Exam: General-aaox3, obese Eyes-no scleral icterus ENT-mmm Neck-supple Lungs-cta Heart-rrr Abdomen-bs+ s/nt/nd Extremities-mild edema, left great toe ulcer Neuro-nonfocal Current Inpatient Medications Medications (Trade) Dose Ordered Sig/Bladimir Route Start Time Stop Time Status Last Admin Dose Admin Metronidazole (Flagyl Tab) 500 mg TID PO 10/23/16 17:00 11/02/16 16:59 10/24/16 20:51 500 MG Heparin Sodium (Porcine) (Heparin Sq 5000 Unit/0.5ml) 5,000 unit Q8 SQ 10/23/16 22:00 11/22/16 21:59 Acetaminophen (Tylenol Tab) 650 mg Q4H PRN PO 10/23/16 15:00 11/22/16 14:59 Ondansetron HCl (Zofran Inj) 4 mg Q6H PRN IV 10/23/16 15:00 11/22/16 14:59 Glucose (Glucose 40% Gel) 15-30 GRAMS 15 GRAMS... UD PRN PO 10/23/16 15:00 11/22/16 14:59 Glucose (Glucose Chew Tab) 4-8 Tablets 4 Tabl... UD PRN PO 10/23/16 15:00 11/22/16 14:59 Dextrose (Dextrose 50% 50ML Syringe) 25-50ML OF 50% DW IV FOR... UD PRN IV 10/23/16 15:00 11/22/16 14:59 Glucagon (Glucagon Inj) 1 mg UD PRN SQ 10/23/16 15:00 11/22/16 14:59 Aspirin (Ecotrin Tab) 81 mg DAILY PO 10/24/16 08:00 11/23/16 08:59 10/24/16 09:38 81 MG Atorvastatin Calcium (Lipitor Tab) 40 mg DAILY PO 10/24/16 08:00 11/23/16 08:59 10/24/16 09:40 40 MG Calcium Acetate (Phoslo Cap) 1,334 mg DAILY PRN PO 10/24/16 08:00 11/23/16 07:59 10/24/16 14:26 1,334 MG Calcium Acetate (Phoslo Cap) 2,001 mg TIDM PO 10/23/16 17:00 11/22/16 16:59 10/25/16 07:45 2,001 MG Dicyclomine HCl (Bentyl Cap) 10 mg QID PRN PO 10/23/16 16:15 11/22/16 16:14 Isosorbide Mononitrate (Imdur Ext Rel Tab) 60 mg QAM PO 10/24/16 08:00 11/23/16 08:59 10/24/16 09:40 60 MG Isosorbide Mononitrate (Imdur Ext Rel Tab) 30 mg QAM PO 10/24/16 08:00 11/23/16 08:59 10/24/16 09:39 30 MG Lorazepam (Ativan Tab) 0.5 mg DAILY PRN PO 10/23/16 16:15 11/22/16 16:14 10/23/16 22:16 0.5 MG Methocarbamol (Robaxin Tab) 500 mg BID PRN PO 10/23/16 16:15 11/22/16 16:14 Metoprolol Tartrate (Lopressor Tab) 50 mg BID PO 10/23/16 20:00 11/22/16 20:59 10/24/16 20:50 50 MG Pantoprazole Sodium (Protonix Tab) 40 mg DAILY PO 10/24/16 08:00 11/23/16 08:59 10/24/16 09:41 40 MG Ranitidine HCl (zANTac TAB) 300 mg HS PO 10/23/16 21:00 11/22/16 20:59 10/24/16 20:51 300 MG Tramadol HCl (Ultram Tab) 50 mg TID PRN PO 10/23/16 16:15 11/22/16 16:14 10/24/16 09:42 50 MG Insulin Aspart (novoLOG ASPART) SLIDING SCALE ACHS SC 10/23/16 17:00 11/22/16 16:59 10/25/16 08:58 2 UNITS Miscellaneous Information 1 ea 1 ea UD PRN N/A 10/23/16 17:18 11/22/16 17:17 Piperacillin Sod/ Tazobactam Sod/ Dextrose (Zosyn Iv/D5 100ml) 120 ml @ 30 mls/hr Q12H IV 10/24/16 04:00 12/05/16 03:59 10/25/16 03:37 30 MLS/HR Piperacillin Sod/ Tazobactam Sod (Consult) 1 ea UD PRN N/A 10/23/16 17:00 11/22/16 16:59 Vancomycin HCl (Consult) 1 ea UD PRN N/A 10/23/16 17:00 11/22/16 16:59 Ondansetron HCl (Zofran Odt) 4 mg Q4H PRN PO 10/24/16 05:00 11/23/16 04:59 10/25/16 09:00 4 MG Sertraline HCl (Zoloft Tab) 100 mg HS PO 10/24/16 21:00 11/23/16 20:59 10/24/16 20:51 100 MG Insulin Glargine (Lantus Solostar Pen) see protocol text HS SC 10/24/16 21:00 11/23/16 20:59 10/24/16 20:48 5 UNIT Epoetin Christopher (Procrit Inj) 10,000 units TODAY@0830 IV. 10/25/16 08:30 10/25/16 18:00 Last 24 Hours Test 10/24/16 12:24 10/24/16 16:44 10/24/16 20:25 10/25/16 06:02 Bedside Glucose 156 mg/dl 162 mg/dl 121 mg/dl Sodium Level 137 mmol/L Potassium Level 4.4 mmol/L Chloride Level 97 mmol/L Carbon Dioxide Level 24 mmol/L Anion Gap 16.0 mmol/L Blood Urea Nitrogen 64 mg/dl Creatinine 10.00 mg/dl Est Creatinine Clear Calc Drug Dose 8.1 ml/min Estimated GFR () 4.7 Estimated GFR (Non- 4.1 BUN/Creatinine Ratio 6.4 Random Glucose 145 mg/dl Calcium Level 8.9 mg/dl Magnesium Level 2.6 mg/dl Random Vancomycin Level 25.4 mcg/ml Test 10/25/16 08:07 Bedside Glucose 110 mg/dl Assessment & Plan ESRD-for dialysis today for fluid removal and clearance of toxins. OSIRIS-phos levels are better, continue phoslo 3 with meals Anemia of renal failure-intermittent procrit for goal of hg of 10 to 11. [id number], no recent diarrhea. DFU-being evaluated by vascular surgery. on appropriate antibiotics.
--- NOTE | 2016-10-25 10:26 | Surgery Consultation ---
Consultation Date of Service Oct 25, 2016. Chief Complaint L great toe infection, PAD History of Present Illness The patient is a 50 year old female with multiple medical problems, including HTN, DMII, ESRD on HD, carotid stenosis, CAD, known to Dr Luz for vascular access and carotid stenosis, seen in consultation today for L great toe osteomyelitis and PAD. Pt states she noted a small area of black on her distal great toe about 6 weeks ago and it has worsened. She saw her PCP, who started her on keflex and set her up to see wound clinic, but is not scheduled until next week. Pt admits severe pain in L great toe and has been walking slowly on the lateral side of her foot. Was to see Dr Luz in office tomorrow concerning her severe L carotid stenosis. Denies NELSON, fever, chills, chest pain , SOB, abd pain, N/V, rest pain, claudication, other complaints. US demonstrates significant arterial disease with SFA lesion and monophasic flow, with 2 vessel runoff to foot. Vitals Vital Signs Past 12 Hours Date Time Temp Pulse Resp B/P Pulse Ox O2 Delivery O2 Flow Rate FiO2 10/25/16 07:53 36.7 64 19 154/67 98 Room Air 10/25/16 00:23 36.7 76 18 128/67 96 Room Air 10/25/16 00:00 Room Air Allergies Coded Allergies: Adhesives (Verified Allergy, Mild, RASH, SORES, 09/21/16) Pollen Extract (Unverified Allergy, Unknown, rash, 09/21/16) Home Medications Scheduled Aspirin (Aspirin Ec), 81 MG PO DAILY Atorvastatin (Lipitor), 40 MG PO DAILY Calcium Acetate (Phoslo 667 Mg), 3 CAP PO WM Calcium Acetate (Phoslo 667 Mg), 2 CAP PO WITH SNACKS Cephalexin Monohydrate (Keflex), 500 MG PO BID Insulin Glargine (Lantus Solostar), 10 UNITS SC QPM Isosorbide Mononitrate (Isosorbide Mononitrate ER), 60 MG PO QAM Isosorbide Mononitrate Ext Rel (Imdur Ext Rel), 30 MG PO QAM Metoprolol Tartrate (Lopressor), 50 MG PO BID Pantoprazole (Protonix), 40 MG PO DAILY Ranitidine Hcl (Zantac), 300 MG PO HS Sertraline HCl (Sertraline HCl), 2 TAB PO DAILY Scheduled PRN Dicyclomine Hcl (Dicyclomine Hcl), 1 MG PO QID PRN for CRAMPING Lorazepam (Ativan), 0.5 MG PO DAILY PRN for Anxiety Methocarbamol (Methocarbamol), 500 MG PO BID PRN for Muscle Spasms Tramadol (Ultram), 1 TAB PO TID PRN for Pain Problem List Medical Problems: (1) Allergic rhinitis (2) C. difficile colitis (3) CAD (coronary artery disease) (4) Carotid stenosis (5) Diabetic foot infection (6) DM type 2 (diabetes mellitus, type 2) (7) Dyslipidemia (8) ESRD (end stage renal disease) on dialysis (9) GERD (gastroesophageal reflux disease) (10) HTN (hypertension) (11) HX OF PAST NONCOMPLIANCE (12) Ischemic cardiomyopathy (13) Morbid obesity (14) Tobacco use disorder (15) UGIB (upper gastrointestinal bleed) Surgical Problems: (1) Hemodialysis access, AV graft Surgical / Medical History Hx Cardiac Surgery: Yes (ANGIOPLASTY/STENT) Hx Abdominal Surgery: No Hx Cancer Surgery: No Hx Thoracic Surgery: No Hx Orthopedic: No Hx Urinary Tract Surgery: No Past Medical/Surgical History: Diabetes, Heart Disease, Hypertension, Kidney Disease Family History Diabetes mellitus FATHER MOTHER Heart disease FATHER MOTHER Hypertension FATHER MOTHER Kidney disease GRANDMOTHER Social History Smoking Status: Former Smoker Hx Tobacco Use In Past Year?: No Hx Alcohol Use - Type & Amnt: No Hx Substance Use -Type & Amnt: No Review of Systems Constitutional: No chills, No malaise Skin: + change in color Eyes: No visual changes ENMT: No sore throat Respiratory: No [place], No cough, No hemoptysis, No short of breath Cardiovascular: No chest pain, No edema, No intermittent claudication, No palpitations, No syncope Gastrointestinal: + diarrhea, No abdominal pain, No nausea, No vomiting Neurologic: No dizziness, No headache, No lethargy, No numbness, No tingling Physical Exam Constitutional: General Apperance: well-nourished, well-developed, obese (morbidly) Level of Distress: NAD, chronically ill Psychiatric: Mental Status: active & alert, normal mood, normal affect Orientation: oriented except where noted, to time, to place, to person Memory: recent memory normal, remote memory normal Head: normocephalic, atraumatic Eyes: EOM: EOMI ENMT: normal ENT inspection, hearing grossly normal Neck: supple, trachea midline Lungs: Respiratory effort: no dyspnea Auscultation: no wheezing, no rales/crackles, no rhonchi Cardiovascular: Apical Impulse: not displaced Heart Auscultation: RRR, no rubs, no gallops Peripheral Pulses: Pulses: full and equal, in all extremities except if noted Brachial Pulses: normal on the left, normal on the right Radial Pulse: decreased on the left, decreased on the right Femoral Pulse: normal on the right, decreased on the left Posterior Tibialis Pulse: doppler (Monophasic LLE and RLE) Dorsalis Pedis Pulse: decreased on the right, doppler (LLE monophasic) Abdomen: Inspection & Palpation: soft, non-distended, no tenderness, guarding & rebound Musculoskeletal: normal strength (5/5 throughout), normal tone Extremities: Upper Right: no cyanosis, no edema, no varicosities Upper Left: no cyanosis, no edema, no varicosities Lower Right: no cyanosis, no varicosities, no palpable cord, edema (trace) Lower Left: pertinent finding (L great toe with erythema, warmth, 2 black eschar. + cap refill. Minimal odor. No drainage noted. + TTP) Neurologic: Cranial Nerves: grossly intact Sensation: grossly intact Assessment and Plan ASSESSMENT and PLAN: Severe PAD with L great toe wound with osteomyelitis Pt discussed with Dr Luz, who reviewed pt's US. Recommends LLE angio with intervention d/t PAD. Will discuss further with pt and schedule in OR this week.
--- NOTE | 2016-10-25 10:54 | Progress Note ---
Subjective Date of Service: Oct 25, 2016. Subjective wound culture with gnr. c diff + on flagyl. s/p surgical eval, for ? OR later this week. afebrile. tolerating abx. no new cbc. Problem List Medical Problems: (1) Abdominal pain Status: Acute (2) Acute electrocardiogram changes Status: Acute (3) Elevated troponin Status: Acute (4) Elevated troponin Status: Acute (5) End stage renal disease Status: Acute (6) GI bleed Status: Acute (7) Hyperkalemia Status: Acute (8) Joint effusion Status: Acute (9) Left elbow pain Status: Acute (10) Left sided chest pain Status: Acute (11) Left sided chest pain Status: Acute (12) Limb ischemia Status: Acute (13) Medical non-compliance Status: Acute (14) Pneumonia Status: Acute (15) Pulmonary edema Status: Acute (16) Renal failure Status: Acute (17) Sinusitis Status: Acute (18) Substernal chest pain Status: Acute (19) Upper abdominal pain Status: Acute (20) Upper GI bleed Status: Acute (21) Urinary tract infection Status: Acute (22) Vomiting Status: Acute (23) Vomiting Status: Acute (24) Vomiting Status: Acute (25) Vomiting Status: Acute Objective Vital Signs Date Time Temp Pulse Resp B/P Pulse Ox O2 Delivery O2 Flow Rate FiO2 10/25/16 07:53 36.7 64 19 154/67 98 Room Air 10/25/16 00:23 36.7 76 18 128/67 96 Room Air 10/25/16 00:00 Room Air 10/24/16 20:52 67 145/74 10/24/16 20:00 Room Air 10/24/16 17:48 36.5 64 20 150/64 99 Room Air 10/24/16 16:00 Room Air Laboratory Results Item Value Date Time Gram Stain - Final Resulted 10/23/162014 Ulcer Toe Left 1 C.difficile Toxin B Gene (PCR) - Final Complete 10/23/16 1300 Stool Positive for C. difficile toxin B gene Last 24 Hours Test 10/24/16 12:24 10/24/16 16:44 10/24/16 20:25 10/25/16 06:02 Bedside Glucose 156 mg/dl 162 mg/dl 121 mg/dl Sodium Level 137 mmol/L Potassium Level 4.4 mmol/L Chloride Level 97 mmol/L Carbon Dioxide Level 24 mmol/L Anion Gap 16.0 mmol/L Blood Urea Nitrogen 64 mg/dl Creatinine 10.00 mg/dl Est Creatinine Clear Calc Drug Dose 8.1 ml/min Estimated GFR () 4.7 Estimated GFR (Non- 4.1 BUN/Creatinine Ratio 6.4 Random Glucose 145 mg/dl Calcium Level 8.9 mg/dl Magnesium Level 2.6 mg/dl Random Vancomycin Level 25.4 mcg/ml Test 10/25/16 08:07 Bedside Glucose 110 mg/dl Assessment and Plan (1) Osteomyelitis Assessment & Plan: continue emperic abx for now, follow cultures, await final ID/sensitivity gnr from wound culture (2) C. difficile colitis Assessment & Plan: continue flagyl
[2016-10-25] MEDS: TRAMADOL HCL 50 MG TAB PO PRN (12:18)
--- NOTE | 2016-10-25 12:30 | Pharmacy Progress Note ---
Glycemic Control: Progress Nt Date of Service Oct 25, 2016. Scope Glycemic Pharmacist consulted by on 10/23/16 for glycemic control and to write orders per [facility] inpatient glycemic control protocol. Objective Accuchecks BSG (last 24hrs): Test 10/24/16 16:44 10/24/16 20:25 10/25/16 06:02 10/25/16 08:07 Bedside Glucose 162 mg/dl (70-90) 121 mg/dl (70-90) 110 mg/dl (70-90) Random Glucose 145 mg/dl (70-99) Test 10/25/16 11:18 Bedside Glucose 128 mg/dl (70-90) Laboratory Data (last 24hrs) Test 10/25/16 06:02 Anion Gap 16.0 mmol/L BUN/Creatinine Ratio 6.4 Blood Urea Nitrogen 64 mg/dl Creatinine 10.00 mg/dl Potassium Level 4.4 mmol/L Sodium Level 137 mmol/L Recent Pertinent Medications Outpatient Anti-diabetic Regimen: * Lantus 10 units qHS * A1c - n/a; not accurate d/t HD Risk Factors for Insulin Resistance: * Infection: L toe osteo (ID consulted): On Vancomycin and Zosyn IV; Also positive for C. diff: On Flagyl PO * Diet:DM2/renal Assessment & Plan ASSESSMENT: * ADA & AACE recommend a goal blood sugar range 140-180 mg/dl for the majority of critically ill & non-critically ill patients. However, more stringent targets may be selected in individual cases. 10/24/16 * 50 yo female admitted with Left toe osteomyelitis, now receiving IV antibiotics to treat. Pt known to the pharmacy glycemic service from past admissions. * A1c on file from 10/05/16 is not accurate d/t pt receiving HD. * Based upon past admissions this pt has minimal insulin requirements. Therefore, will proceed with caution in adjusting insulin doses. May even consider removing carb ratio if BSGs seem to be overcorrecting during the daytime. * Will adjust Lantus scale and schedule once daily at bedtime based upon previous admission data. If FBG appears to be elevated will increase Lantus dosing. * Will also narrow BSG goal range for improved glycemic control. 10/25/16 * BSGs ranging 110 - 162 mg/dl during the past 24 hours. BSGs are well- controlled during inpatient stay so far. * Will make slight adjustment to Lantus scale to avoid too strong basal rate. See details below. * Otherwise, no changes warranted at this time to inpatient DM regimen. Continue Novolog per current order. PLAN FOR INPATIENT GLYCEMIC CONTROL: * Adjust - Basal insulin: Lantus qHS: * 0 units for BSG below 110 mg/dl * 5 units for BSG 110 - 180 mg/dl * 8 units for BSG above 180 mg/dl * Continue - Correctional Insulin with NOVOLOG per scale ACHS * Goal Range: Low 120 mg/dL - High 160 mg/dL * Correction Factor: 25 mg/dL/unit * Nutritional / Prandial insulin per carb ratio of 1 unit per 15 grams CHO consumed DISCHARGE RECOMMENDATIONS: * Pt can likely resume [employer] diabetes regimen of Lantus 10 units daily. * Please note that the plan above was derived based on current level of insulin resistance and hospital stress. These recommendations are appropriate for inpatient admission only. Plan of care upon discharge will need to be reassessed to avoid potential outpatient hypo/hyperglycemia. Thank you.
[2016-10-25 14:35] LABS: HEPATITIS B AB POS
--- NOTE | 2016-10-25 16:10 | Orthopedic Progress Note ---
Orthopedic Progress Note Date of Service Oct 25, 2016. Subjective Additional Notes: Pt seen in Dialysis. Resting comfortably. Seen by Dr Myers today per patient and toe wound addressed. States she will be having angio this Tuesday by Dr Jones. Objective Great toe with dressing. Dressing left on. Date Time Temp Pulse Resp B/P Pulse Ox O2 Delivery O2 Flow Rate FiO2 10/25/16 15:45 58 137/71 10/25/16 15:30 58 160/76 10/25/16 15:15 51 159/62 10/25/16 15:00 59 151/82 10/25/16 14:45 69 160/45 10/25/16 14:35 62 178/62 10/25/16 08:20 Room Air 10/25/16 07:53 36.7 64 19 154/67 98 Room Air 10/25/16 00:23 36.7 76 18 128/67 96 Room Air 10/25/16 00:00 Room Air 10/24/16 20:52 67 145/74 10/24/16 20:00 Room Air 10/24/16 17:48 36.5 64 20 150/64 99 Room Air Assessment & Plan Assessment: Left Great toe wound with Osteomyelitis Plan: Pt planning on having the toe taken care of by Dr Myers and Karen. If amputation needed, plan will be to have Dr Jones do the surgery. Discussed briefly with Cuca Villanueva PAC today. Ortho will sign off for now. Please call with any questions. (1) Osteomyelitis (2) C. difficile colitis
[2016-10-25] MEDS: ASPIRIN 81 MG ECTAB PO SCH (18:20)
[2016-10-25] MEDS: ISOSORBIDE MONONITRATE 60 MG TABCR PO SCH (18:20)
[2016-10-25] MEDS: ATORVASTATIN 40 MG TAB PO SCH (18:23)
[2016-10-25] MEDS: ISOSORBIDE MONONITRATE 30 MG TABCR PO SCH (18:23)
[2016-10-25] MEDS: PANTOprazole SOD 40 MG TAB PO SCH (18:24)
[2016-10-25] MEDS: METOPROLOL TARTRATE 50 MG TAB PO SCH ×2 (18:24→20:29)
--- NOTE | 2016-10-25 19:03 | EMERGENCY ROOM VISIT NOTE ---
History First contact with patient: 10:56 Chief Complaint: WOUND INFECTION Stated Complaint: LEFT TOE-SORES AND LEAKING Nursing Triage Summary: Recent visit, wanted wound rechecked. History of Present Illness The patient is a 50 year old white female who presents to the Emergency Room with complaints of left great toe pain. She is being evaluated by the wound care center for diabetic ulcers on her great toe. She states it is draining more and smells worse than it did. She is concerned about worsening infection. She denies any fevers or chills. No sweats. No streaking on her leg. She is a known diabetic and has vascular disease. She states the wound care nurses and evaluated her today and were concerned. They sent her in for evaluation. She states she did take Keflex at home last night and this morning. She has developed some diarrhea. There is a distant history of C. difficile infection. She is concerned that she has again. Review of Systems REVIEW OF SYSTEM: HEENT: No dizziness, visual problems, hearing loss, or tinnitus. There is no difficulty swallowing and no oral lesions are present. PULMONARY: No cough, shortness of breath, sputum production or hemoptysis. CARDIOVASCULAR: No chest pain, palpitations, shortness of breath or peripheral edema. GASTROINTESTINAL: No constipation, nausea, vomiting, or abdominal pain. GENITOURINARY: No dysuria, frequency, urgency or nocturia. NEUROLOGIC: No weakness, muscle tenderness, epilepsy or history of neurological problems. No history of chronic headaches. MUSCULOSKELETAL: No history of joint tenderness/swelling. No history of arthritis or arthralgias. SKIN: No rashes or lesions. PSYCHIATRIC: No history of depression or mental illness. ENDOCRINE: Positive history of diabetes. No thyroid disorders, or abnormal hair growth. Past Medical/Surgical History Medical Problems: (1) Allergic rhinitis (2) C. difficile colitis (3) CAD (coronary artery disease) (4) Carotid stenosis (5) Diabetic foot infection (6) DM type 2 (diabetes mellitus, type 2) (7) Dyslipidemia (8) ESRD (end stage renal disease) on dialysis (9) GERD (gastroesophageal reflux disease) (10) HTN (hypertension) (11) HX OF PAST NONCOMPLIANCE (12) Ischemic cardiomyopathy (13) Morbid obesity (14) Osteomyelitis (15) Tobacco use disorder (16) UGIB (upper gastrointestinal bleed) Surgical Problems: (1) Hemodialysis access, AV graft Family History Diabetes mellitus FATHER MOTHER Heart disease FATHER MOTHER Hypertension FATHER MOTHER Kidney disease GRANDMOTHER Social History Smoking Status: Former Smoker Alcohol Use: none Drug Use: none Housing Status: lives with family Occupation Status: unemployed Current/Historical Medications Scheduled Aspirin (Aspirin Ec), 81 MG PO DAILY Atorvastatin (Lipitor), 40 MG PO DAILY Calcium Acetate (Phoslo 667 Mg), 3 CAP PO WM Calcium Acetate (Phoslo 667 Mg), 2 CAP PO WITH SNACKS Cephalexin Monohydrate (Keflex), 500 MG PO BID Insulin Glargine (Lantus Solostar), 10 UNITS SC QPM Isosorbide Mononitrate (Isosorbide Mononitrate ER), 60 MG PO QAM Isosorbide Mononitrate Ext Rel (Imdur Ext Rel), 30 MG PO QAM Metoprolol Tartrate (Lopressor), 50 MG PO BID Pantoprazole (Protonix), 40 MG PO DAILY Ranitidine Hcl (Zantac), 300 MG PO HS Sertraline HCl (Sertraline HCl), 2 TAB PO DAILY Scheduled PRN Dicyclomine Hcl (Dicyclomine Hcl), 1 MG PO QID PRN for CRAMPING Lorazepam (Ativan), 0.5 MG PO DAILY PRN for Anxiety Methocarbamol (Methocarbamol), 500 MG PO BID PRN for Muscle Spasms Tramadol (Ultram), 1 TAB PO TID PRN for Pain Allergies Coded Allergies: Adhesives (Verified Allergy, Mild, RASH, SORES, 09/21/16) Pollen Extract (Unverified Allergy, Unknown, rash, 09/21/16) Physical Exam Vital Signs Date Time Temp Pulse Resp B/P Pulse Ox O2 Delivery O2 Flow Rate FiO2 10/23/16 14:00 77 18 122/78 96 Room Air 10/23/16 10:49 36.8 86 20 117/76 96 Room Air Physical Exam Gen.: Well-developed, well-nourished, middle-aged white female, in no acute distress. Laying on a bed. Alert and oriented. Skin:Warm and dry with good turgor. No rashes. No ecchymosis. The patient is not diaphoretic. No abrasions. Left great toe is erythematous from the IP joint distally. there is a black eschar present on the plantar surface measuring approximately 1 cm in diameter. She also has a scab and ulcer present medially next to the toenail. Skin is scaling. No visible pus. No lymphangitis. Musculoskeletal: Patient has intact motor function to the ankle and MTP joint. significant pain with any attempt at motion at the IP joint. Neurologic: Gross sensation is intact and great toe by soft touch. Significant pain with any palpation of the great toe. Medical Decision & Procedures ER Provider Diagnostic Interpretation: Radiographic imaging obtained today of the great toe was read by radiology. There is no acute bony abnormality. She does have mild arthritic change and osteopenia. Mild soft tissue swelling. Laboratory Results Test 10/23/16 11:45 Immature Granulocyte % (Auto) 0.1 % White Blood Count 9.39 K/uL (4.8-10.8) Red Blood Count 3.70 M/uL (4.2-5.4) Hemoglobin 11.0 g/dL (12.0-16.0) Hematocrit 34.8 % (37-47) Mean Corpuscular Volume 94.1 fL (80-100) Mean Corpuscular Hemoglobin 29.7 pg (25-34) Mean Corpuscular Hemoglobin Concent 31.6 g/dl (32-36) Platelet Count 388 K/uL (130-400) Mean Platelet Volume 10.2 fL (7.4-10.4) Neutrophils (%) (Auto) 71.3 % Lymphocytes (%) (Auto) 17.6 % Monocytes (%) (Auto) 6.8 % Eosinophils (%) (Auto) 3.6 % Basophils (%) (Auto) 0.6 % Neutrophils # (Auto) 6.69 K/uL (1.4-6.5) Lymphocytes # (Auto) 1.65 K/uL (1.2-3.4) Monocytes # (Auto) 0.64 K/uL (0.11-0.59) Eosinophils # (Auto) 0.34 K/uL (0-0.5) Basophils # (Auto) 0.06 K/uL (0-0.2) Immature Granulocyte # (Auto) 0.01 K/uL (0.00-0.02) Date/Time Source Procedure Growth Status 10/23/16 13:00 Stool C.difficile Toxin B Gene (PCR) - Final Positive for C. difficile toxin B gene Complete CBC and chem panel were obtained. BUN is 33 with creatinine of 7.2. She states she receives dialysis on Tuesday. Glucose 239. Normal WBCs at 9.3. H&H 11 and 35. Stool sample was tested for C. difficile toxin B. It is positive. Medications Administered Medications (Trade) Dose Ordered Sig/Bladimir Route Start Time Stop Time Status Last Admin Dose Admin Ceftriaxone Sodium/Dextrose (Rocephin Inj/ Dextrose Add-Shelby 50ML) 50 ml @ 100 mls/hr ONE STAT IV 10/23/16 12:58 10/23/16 13:27 DC 10/23/16 12:58 100 MLS/HR Rocephin 1 g IV ED Course Patient was educated regarding today's findings. Conservative care measures were discussed. IV was established. Labs were obtained. Given the eschar and ulcerations on her great toe, she was given 1 g Rocephin IV. With her current diarrhea and positive C. difficile toxin as well as renal insufficiency, I suggested admission to the hospital for closer management. Patient is in agreement. Hospitalist service was contacted and evaluated the patient. Please see that dictation for final management. She remained stable while in the ED. Medical Decision Possibility of MRSA infection, osteomyelitis, and peripheral vascular disease were also considered. Impression Primary Impression: C. difficile colitis Additional Impressions: Diabetic foot infection ESRD (end stage renal disease) on dialysis Departure Information Referrals Tamy Becerra D.O. (PCP) Patient Instructions My [facility] Problem Qualifiers
[2016-10-25] MEDS: SERTRALINE HCL 100 MG TAB PO SCH (20:26)
[2016-10-25] MEDS: RANITIDINE HCL 150 MG TAB PO SCH (20:28)
[2016-10-25] MEDS: INSULIN GLARGINE SOLOSTAR 100 UNITS/ML 3 ML PEN SC SCH (20:35)
--- NOTE | 2016-10-25 21:31 | Progress Note ---
Medicine Progress Note Date & Time of Visit: Oct 25, 2016 at 21:18. Subjective Pt was seen and examined Sitting in bed with no distress Pt said that the toe is getting better she said that the pain is less denies any chest pain, palpitation, dizziness and sob Objective Last 8 Hrs Date Time Temp Pulse Resp B/P Pulse Ox O2 Delivery O2 Flow Rate FiO2 10/25/16 20:50 125/70 10/25/16 18:15 36.5 65 18 145/102 99 Room Air 10/25/16 18:06 36.7 64 137/74 10/25/16 18:00 Room Air 10/25/16 17:30 68 145/84 10/25/16 17:15 66 124/84 10/25/16 17:00 61 151/88 10/25/16 16:45 61 138/80 10/25/16 16:30 59 145/80 10/25/16 16:15 62 146/85 10/25/16 16:00 68 156/90 10/25/16 15:45 58 137/71 10/25/16 15:30 58 160/76 10/25/16 15:15 51 159/62 10/25/16 15:00 59 151/82 10/25/16 14:45 69 160/45 10/25/16 14:35 62 178/62 10/25/16 14:15 36.9 61 96/77 Physical Exam: General- No acute distress Head- atraumatic Eyes- PERRL, EOMI ENT- oropharynx clear Neck- supple, no JVD Lungs- clear to auscultation and percussion Heart- regular rhythm; no murmur Abdomen- normal bowel sounds, soft Extremities-no calf tenderness, wound in the left great toe wrapped with clean dressing Neuro- alert, oriented x 3; PERRL, EOMI; no facial palsy; Skin- warm & dry Laboratory Results: Last 24 Hours Test 10/25/16 06:02 10/25/16 08:07 10/25/16 11:18 10/25/16 13:26 Sodium Level 137 mmol/L Potassium Level 4.4 mmol/L Chloride Level 97 mmol/L Carbon Dioxide Level 24 mmol/L Anion Gap 16.0 mmol/L Blood Urea Nitrogen 64 mg/dl Creatinine 10.00 mg/dl Est Creatinine Clear Calc Drug Dose 8.1 ml/min Estimated GFR () 4.7 Estimated GFR (Non- 4.1 BUN/Creatinine Ratio 6.4 Random Glucose 145 mg/dl Calcium Level 8.9 mg/dl Magnesium Level 2.6 mg/dl Random Vancomycin Level 25.4 mcg/ml Bedside Glucose 110 mg/dl 128 mg/dl Hepatitis B Surface Antigen NEG Hepatitis B Surface Antibody POS Test 10/25/16 18:15 10/25/16 20:17 Bedside Glucose 117 mg/dl 137 mg/dl Assessment & Plan DIABETIC INFECTION OF LEFT GREAT TOE WITH OSTEOMYELITIS MRI of the left foot showed a marrow edema seen within the tuft of the 1st distal phalanx with mild drop in signal on the T1-weighted sequences. The appearance suggests osteomyelitis. Soft tissue edema and ulcerations are seen in the 1st toe. On IV zosyn/Vanco ID on board recommended to continue current treatment Ortho consulted and no intervention at this time, continue monitor. Dr. Myers from wound care was consulted Continue daily dressing care Wound cx growth coag negative staph Continue current abx treatment LEFT PERONEAL ARTERY OCCLUSION U/S of LE showed distal left peroneal artery is occluded. Case discussed with Cuca from vascular recommended LLE angio with intervention d /t PAD Continue limb check C DIFF COLITIS : Recently was on Keflex for left great toe infection presents with Diarrhea stool C diff toxin assay positive afebrile, no leukocytosis Continue PO Flagyl 500 mg TID -complete 10 days course contact precaution Diarrhea improved No diarrhea today CHRONIC CHF WITH BOTH SYSTOLIC AND DIASTOLIC DYSFUNCTION : no evidence of decompensation or vol overload Stable ECHO on 07/2017 : 1. Normal left ventricular size with low-normal systolic function. Estimated EF 50%. Hypokinesis of the inferolateral, mid inferior, base to mid septal wall. Akinesis of the inferior base. No left ventricular hypertrophy. Type 2 diastolic dysfunction. 2. The left atrium is mildly dilated. 3. There is mild mitral regurgitation. 4. Technically difficult study; IV echo-contrast may enhance image quality to better evaluate LV systolic function. 5. Compared to prior study on 09/22/2016, LV systolic function has declined. ESRD ON HD HD on Tuesday/Tuesday /Tuesday Nephrology on board Follow up with Dr. Prakash HD today ANEMIA OF CHRONIC DISEASE : Hgb on admission stable 11 Stable HX OF RECURRENT GI BLEED : last admission 10/05/16 with hematemesis EGD on 10/07/16 : normal esophagus, stomach , duodenum , no evidence of bleed Pathology : Benign , with evidence of chronic gastritis Immunostain negative for H Pylori Stable CAD S/P PTCA : s/p Bare metal stent on left Cx on 03/2016 continue Aspirin, Imdur, Lopressor, statin Asymptomatic HTN: BP stable cont Imdur, Lopressor HYPERLIPIDEMIA : Cont Lipitor 40 mg daily TYPE 2 DM ON INSULIN : Last Hba1c 7.1 was 10/05/16 possible due to infection cont basal Lantus 10 unit hs insulin SSI Pharmacy consulted for glycemic management GERD: cont PPI HX OF DEPRESSION DISORDER ; mood stable cont Zoloft 100 mg PO Daily DVT PROPHYLAXIS : moderate risk Sub q heparin ( H&H stable , no active bleeding ) FULL CODE DISPOSITION : Will need to continue to follow with outpatient wound clinic Consultants: ID Ortho Wound Care PT/OT Current Inpatient Medications: Current Inpatient Medications Medications (Trade) Dose Ordered Sig/Bladimir Route Start Time Stop Time Status Last Admin Dose Admin Metronidazole (Flagyl Tab) 500 mg TID PO 10/23/16 17:00 11/02/16 16:59 10/25/16 20:27 500 MG Heparin Sodium (Porcine) (Heparin Sq 5000 Unit/0.5ml) 5,000 unit Q8 SQ 10/23/16 22:00 11/22/16 21:59 10/25/16 20:48 5,000 UNIT Acetaminophen (Tylenol Tab) 650 mg Q4H PRN PO 10/23/16 15:00 11/22/16 14:59 Ondansetron HCl (Zofran Inj) 4 mg Q6H PRN IV 10/23/16 15:00 11/22/16 14:59 Glucose (Glucose 40% Gel) 15-30 GRAMS 15 GRAMS... UD PRN PO 10/23/16 15:00 11/22/16 14:59 Glucose (Glucose Chew Tab) 4-8 Tablets 4 Tabl... UD PRN PO 10/23/16 15:00 11/22/16 14:59 Dextrose (Dextrose 50% 50ML Syringe) 25-50ML OF 50% DW IV FOR... UD PRN IV 10/23/16 15:00 11/22/16 14:59 Glucagon (Glucagon Inj) 1 mg UD PRN SQ 10/23/16 15:00 11/22/16 14:59 Aspirin (Ecotrin Tab) 81 mg DAILY PO 10/24/16 08:00 11/23/16 08:59 10/25/16 18:20 81 MG Atorvastatin Calcium (Lipitor Tab) 40 mg DAILY PO 10/24/16 08:00 11/23/16 08:59 10/25/16 18:23 40 MG Calcium Acetate (Phoslo Cap) 1,334 mg DAILY PRN PO 10/24/16 08:00 11/23/16 07:59 10/24/16 14:26 1,334 MG Calcium Acetate (Phoslo Cap) 2,001 mg TIDM PO 10/23/16 17:00 11/22/16 16:59 10/25/16 18:21 2,001 MG Dicyclomine HCl (Bentyl Cap) 10 mg QID PRN PO 10/23/16 16:15 11/22/16 16:14 Isosorbide Mononitrate (Imdur Ext Rel Tab) 60 mg QAM PO 10/24/16 08:00 11/23/16 08:59 10/25/16 18:20 60 MG Isosorbide Mononitrate (Imdur Ext Rel Tab) 30 mg QAM PO 10/24/16 08:00 11/23/16 08:59 10/25/16 18:23 30 MG Lorazepam (Ativan Tab) 0.5 mg DAILY PRN PO 10/23/16 16:15 11/22/16 16:14 10/23/16 22:16 0.5 MG Methocarbamol (Robaxin Tab) 500 mg BID PRN PO 10/23/16 16:15 11/22/16 16:14 Metoprolol Tartrate (Lopressor Tab) 50 mg BID PO 10/23/16 20:00 11/22/16 20:59 10/25/16 20:29 50 MG Pantoprazole Sodium (Protonix Tab) 40 mg DAILY PO 10/24/16 08:00 11/23/16 08:59 10/25/16 18:24 40 MG Ranitidine HCl (zANTac TAB) 300 mg HS PO 10/23/16 21:00 11/22/16 20:59 10/25/16 20:28 300 MG Tramadol HCl (Ultram Tab) 50 mg TID PRN PO 10/23/16 16:15 11/22/16 16:14 10/25/16 12:18 50 MG Insulin Aspart (novoLOG ASPART) SLIDING SCALE ACHS SC 10/23/16 17:00 11/22/16 16:59 10/25/16 20:36 1 UNITS Miscellaneous Information 1 ea 1 ea UD PRN N/A 10/23/16 17:18 11/22/16 17:17 Piperacillin Sod/ Tazobactam Sod/ Dextrose (Zosyn Iv/D5 100ml) 120 ml @ 30 mls/hr Q12H IV 10/24/16 04:00 12/05/16 03:59 10/25/16 18:18 30 MLS/HR Piperacillin Sod/ Tazobactam Sod (Consult) 1 ea UD PRN N/A 10/23/16 17:00 11/22/16 16:59 Vancomycin HCl (Consult) 1 ea UD PRN N/A 10/23/16 17:00 11/22/16 16:59 Ondansetron HCl (Zofran Odt) 4 mg Q4H PRN PO 10/24/16 05:00 11/23/16 04:59 10/25/16 09:00 4 MG Sertraline HCl (Zoloft Tab) 100 mg HS PO 10/24/16 21:00 11/23/16 20:59 10/25/16 20:26 100 MG Insulin Glargine (Lantus Solostar Pen) see protocol text HS SC 10/24/16 21:00 11/23/16 20:59 10/25/16 20:35 5 UNIT
[2016-10-26] MEDS: ONDANSETRON 4MG OD TAB PO PRN ×3 (00:55→18:21)
[2016-10-26] MEDS ORDERED: TRAMADOL HCL 50 MG TAB PO PRN (02:00)
[2016-10-26] MEDS: PIPERACILL/TAZOBAC IV 4.5 GM in DEXTROSE 5% 100ML IV SCH ×2 (04:01→15:53)
[2016-10-26 06:09] LABS: HEMATOCRIT 30.5 % (37-47); MEAN CELL VOLUME 94.7 fL (80-100); MEAN CORPUSCULAR HEMOGLOBIN 30.4 pg (25-34); MEAN CORPUSCULAR HGB CONC 32.1 g/dl (32-36); MEAN PLATELET VOLUME 9.5 fL (7.4-10.4); PLATELET COUNT 350 K/uL (130-400); RED BLOOD COUNT 3.22 M/uL (4.2-5.4); WHITE BLOOD COUNT 8.13 K/uL (4.8-10.8)
[2016-10-26] MEDS: HEPARIN SOD 5000 UNIT/0.5 ML CARP SQ SCH ×3 (06:09→20:52)
[2016-10-26] MEDS: HYDROmorphone INJ 0.5 MG/0.5 ML SYR IV PRN (06:11)
[2016-10-26 06:54] LABS: BUN/CREATININE RATIO 5.4 (10-20); CALCIUM 8.7 mg/dl (8.5-10.1); CREATININE 7.2 mg/dl (0.60-1.20); MAGNESIUM 2.3 mg/dl (1.8-2.4); POTASSIUM 4.5 mmol/L (3.5-5.1)
[2016-10-26 07:23] VITALS: BP 126/73; PULSE 58; TEMP 36.5; O2SAT 95
[2016-10-26] MEDS: CALCIUM ACETATE 667MG GELCAP PO SCH ×3 (08:40→17:38)
[2016-10-26] MEDS: METRONIDAZOLE 500 MG TAB PO SCH ×3 (08:40→20:44)
--- NOTE | 2016-10-26 09:23 | Pharmacy Progress Note ---
Glycemic Control: Progress Nt Date of Service Oct 26, 2016. Scope Glycemic Pharmacist consulted by Dr Torres on 10/23/16 for glycemic control and to write orders per formerly [facility] inpatient glycemic control protocol. Objective Accuchecks BSG (last 24hrs): Test 10/25/16 11:18 10/25/16 18:15 10/25/16 20:17 10/26/16 06:00 Bedside Glucose 128 mg/dl (70-90) 117 mg/dl (70-90) 137 mg/dl (70-90) Random Glucose 129 mg/dl (70-99) Test 10/26/16 07:33 Bedside Glucose 126 mg/dl (70-90) Laboratory Data (last 24hrs) Test 10/26/16 06:00 Anion Gap 9.0 mmol/L BUN/Creatinine Ratio 5.4 Blood Urea Nitrogen 40 mg/dl Creatinine 7.20 mg/dl Potassium Level 4.5 mmol/L Sodium Level 137 mmol/L White Blood Count 8.13 K/uL Recent Pertinent Medications Outpatient Anti-diabetic Regimen: * Lantus 10 units qHS * A1c - n/a; not accurate d/t HD Risk Factors for Insulin Resistance: * Infection: L toe osteo (ID consulted): On Vancomycin and Zosyn IV; Also positive for C. diff: On Flagyl PO * Surgery: LLE Angio 10/27 * Diet:DM2/renal --> NPO after midnight tonight for surgery tomorrow Assessment & Plan ASSESSMENT: * ADA & AACE recommend a goal blood sugar range 140-180 mg/dl for the majority of critically ill & non-critically ill patients. However, more stringent targets may be selected in individual cases. Using 120-160mg/dl for HD patient. 10/24/16 * 50 yo female admitted with Left toe osteomyelitis, now receiving IV antibiotics to treat. Pt known to the pharmacy glycemic service from past admissions. * A1c on file from 10/05/16 is not accurate d/t pt receiving HD. * Based upon past admissions this pt has minimal insulin requirements. Therefore, will proceed with caution in adjusting insulin doses. May even consider removing carb ratio if BSGs seem to be overcorrecting during the daytime. * Will adjust Lantus scale and schedule once daily at bedtime based upon previous admission data. If FBG appears to be elevated will increase Lantus dosing. * Will also narrow BSG goal range for improved glycemic control. 10/25/16 * BSGs ranging 110 - 162 mg/dl during the past 24 hours. BSGs are well- controlled during inpatient stay so far. * Will make slight adjustment to Lantus scale to avoid too strong basal rate. See details below. * Otherwise, no changes warranted at this time to inpatient DM regimen. Continue Novolog per current order. 10/26/16 * BSGs ranging 110 - 145 mg/dl during the past 24 hours. BSGs are well- controlled during inpatient stay so far. * NPO after midnight tonight for LLE angio, no changes in insulin, as Lantus is on a scales based on BSG PLAN FOR INPATIENT GLYCEMIC CONTROL: * Basal insulin: Lantus qHS: * 0 units for BSG below 110 mg/dl * 5 units for BSG 110 - 180 mg/dl * 8 units for BSG above 180 mg/dl * Continue - Correctional Insulin with NOVOLOG per scale ACHS * Goal Range: Low 120 mg/dL - High 160 mg/dL * Correction Factor: 25 mg/dL/unit * Nutritional / Prandial insulin per carb ratio of 1 unit per 15 grams CHO consumed DISCHARGE RECOMMENDATIONS: * Pt can likely resume [employer] diabetes regimen of Lantus 10 units daily. * Please note that the plan above was derived based on current level of insulin resistance and hospital stress. These recommendations are appropriate for inpatient admission only. Plan of care upon discharge will need to be reassessed to avoid potential outpatient hypo/hyperglycemia. Thank you.
[2016-10-26] MEDS: INSULIN ASPART 100 UNITS/ML 3 ML PEN SC SCH ×4 (09:24→20:52)
[2016-10-26] MEDS: PANTOprazole SOD 40 MG TAB PO SCH (09:25)
[2016-10-26] MEDS: ATORVASTATIN 40 MG TAB PO SCH (09:25)
[2016-10-26] MEDS: ISOSORBIDE MONONITRATE 30 MG TABCR PO SCH (09:25)
[2016-10-26] MEDS: METOPROLOL TARTRATE 50 MG TAB PO SCH ×2 (09:25→20:44)
[2016-10-26] MEDS: ISOSORBIDE MONONITRATE 60 MG TABCR PO SCH (09:25)
[2016-10-26] MEDS: ASPIRIN 81 MG ECTAB PO SCH (09:26)
[2016-10-26] MEDS: DICYCLOMINE HCL 10 MG CAP PO PRN (09:28)
--- NOTE | 2016-10-26 10:00 | Progress Note ---
Subjective Date of Service: Oct 26, 2016. Subjective wound with gnr, not yet finalized. for vascular procedure tomorrow. afebrile. wbc 8.1, vanco level today is 16.9. tolerating abx. no overnight events. Problem List Medical Problems: (1) Abdominal pain Status: Acute (2) Acute electrocardiogram changes Status: Acute (3) Elevated troponin Status: Acute (4) Elevated troponin Status: Acute (5) End stage renal disease Status: Acute (6) ESRD (end stage renal disease) on dialysis Status: Chronic (7) GI bleed Status: Acute (8) Hyperkalemia Status: Acute (9) Joint effusion Status: Acute (10) Left elbow pain Status: Acute (11) Left sided chest pain Status: Acute (12) Left sided chest pain Status: Acute (13) Limb ischemia Status: Acute (14) Medical non-compliance Status: Acute (15) Pneumonia Status: Acute (16) Pulmonary edema Status: Acute (17) Renal failure Status: Acute (18) Sinusitis Status: Acute (19) Substernal chest pain Status: Acute (20) Upper abdominal pain Status: Acute (21) Upper GI bleed Status: Acute (22) Urinary tract infection Status: Acute (23) Vomiting Status: Acute (24) Vomiting Status: Acute (25) Vomiting Status: Acute (26) Vomiting Status: Acute Objective Vital Signs Date Time Temp Pulse Resp B/P Pulse Ox O2 Delivery O2 Flow Rate FiO2 10/26/16 07:23 36.5 58 18 126/73 95 10/26/16 00:00 Room Air 10/25/16 23:53 36.9 67 18 148/66 98 Room Air 10/25/16 20:50 125/70 10/25/16 18:15 36.5 65 18 145/102 99 Room Air 10/25/16 18:06 36.7 64 137/74 10/25/16 18:00 Room Air 10/25/16 17:30 68 145/84 10/25/16 17:15 66 124/84 10/25/16 17:00 61 151/88 10/25/16 16:45 61 138/80 10/25/16 16:30 59 145/80 10/25/16 16:15 62 146/85 10/25/16 16:00 68 156/90 10/25/16 15:45 58 137/71 10/25/16 15:30 58 160/76 10/25/16 15:15 51 159/62 10/25/16 15:00 59 151/82 10/25/16 14:45 69 160/45 10/25/16 14:35 62 178/62 10/25/16 14:15 36.9 61 96/77 Laboratory Results Item Value Date Time Gram Stain - Final Resulted 10/23/162014 Ulcer Toe Left 1 C.difficile Toxin B Gene (PCR) - Final Complete 10/23/16 1300 Stool Positive for C. difficile toxin B gene Last 24 Hours Test 10/25/16 11:18 10/25/16 13:26 10/25/16 18:15 10/25/16 20:17 Bedside Glucose 128 mg/dl 117 mg/dl 137 mg/dl Hepatitis B Surface Antigen NEG Hepatitis B Surface Antibody POS Test 10/26/16 06:00 10/26/16 07:33 White Blood Count 8.13 K/uL Red Blood Count 3.22 M/uL Hemoglobin 9.8 g/dL Hematocrit 30.5 % Mean Corpuscular Volume 94.7 fL Mean Corpuscular Hemoglobin 30.4 pg Mean Corpuscular Hemoglobin Concent 32.1 g/dl RDW Standard Deviation 50.3 fL RDW Coefficient of Variation 14.4 % Platelet Count 350 K/uL Mean Platelet Volume 9.5 fL Sodium Level 137 mmol/L Potassium Level 4.5 mmol/L Chloride Level 98 mmol/L Carbon Dioxide Level 30 mmol/L Anion Gap 9.0 mmol/L Blood Urea Nitrogen 40 mg/dl Creatinine 7.20 mg/dl Est Creatinine Clear Calc Drug Dose 11.4 ml/min Estimated GFR () 7.0 Estimated GFR (Non- 6.1 BUN/Creatinine Ratio 5.4 Random Glucose 129 mg/dl Calcium Level 8.7 mg/dl Magnesium Level 2.3 mg/dl Random Vancomycin Level 16.9 mcg/ml Bedside Glucose 126 mg/dl Assessment and Plan (1) Osteomyelitis Assessment & Plan: continue current abx for now, vanco by level. await wound culture results. await findings from angio tomorrow. (2) C. difficile colitis
--- NOTE | 2016-10-26 11:12 | Pharmacy Progress Note ---
Pharmacy Antibiotic Prog Note Date of Service: Oct 26, 2016. Subjective: The patient is currently receiving Vanco/Zosyn Objective: Height (Feet): 5 Height (Inches): 4.00 Weight (Kilograms): 108.700 Levels: Item Value Date Time Random Vancomycin Level 28.6 mcg/ml 10/24/16 0726 Random Vancomycin Level 25.4 mcg/ml 10/25/16 0602 Random Vancomycin Level 16.9 mcg/ml 10/26/16 0600 Lab Results (24hrs): Laboratory Tests Test 10/26/16 06:00 BUN/Creatinine Ratio 5.4 Blood Urea Nitrogen 40 mg/dl Creatinine 7.20 mg/dl White Blood Count 8.13 K/uL Micro Results: Item Value Date Time Gram Stain - Final Resulted 10/23/162014 Ulcer Toe Left 1 Coag Neg Staph Gram (-) Rods MRSA DNA Surveillance Screen - Final Complete 10/23/162014 Nasal Specimen Negative for MRSA by DNA Probe C.difficile Toxin B Gene (PCR) - Final Complete 10/23/16 1300 Stool Positive for C. difficile toxin B gene Assessment & Plan: Pt's random lvl came back therapeutic at 16.9. Mathematically Pt's t1/2 looks to be about 40hrs; however, she has been clearing the Vanco went from 25.4-> 16.9 in 24 hours. I have ordered a one time dose of Vanco 500mg (4.5mg/kg) to ensure she remains therapeutic. I have ordered a random lvl to be drawn 10/27/16 @ 0600. She last received HD yesterday and is set to receive HD tomorrow morning. Thank you for consulting the pharmacy kinetic team and including us in the care of Ms. Gilbert. Pharmacy will continue to follow and will adjust dose/frequency as necessary. Thank you
[2016-10-26] MEDS ORDERED: VANCOMYCIN INJ 500 MG in SODIUM CHLORIDE 0.9% 250ML 250 ML IV ONE (12:00)
[2016-10-26] MEDS: LACTOBACILLUS ACIDOPHILUS (FLORANEX) TAB PO SCH ×2 (12:20→17:38)
[2016-10-26 14:58] VITALS: BP 153/70; PULSE 53; TEMP 37.2; O2SAT 100
--- NOTE | 2016-10-26 16:03 | Progress Note ---
Internal Med Progress Note Date of Service: Oct 26, 2016. Provider Documentation: SUBJECTIVE: Patient is sitting in the bed in no apparent distress. Denies any new complaint. "My toe is getting better." Remains afebrile. No SOB. OBJECTIVE: Vital Signs-as noted below Examination: General- Alert/Awake and is in no acute distress Head- atraumatic Eyes- PERRL, EOMI ENT- ears, Nose & Throat are normal looking. Neck- Supple, Central trachea, No JVD. Lungs- B/L Clear to auscultation. Heart- Regular Rate/Rhythm, Normal S1,S2,. Abdomen- normal bowel sounds, soft Extremities-no calf tenderness, wound in the left great toe wrapped with clean dressing Neuro- alert, oriented x 3; PERRL, EOMI; no facial palsy; Skin- warm & dry Lab data as noted below. ASSESSMENT & PLAN: MRI of the left foot showed a marrow edema seen within the tuft of the 1st distal phalanx with mild drop in signal on the T1-weighted sequences. The appearance suggests osteomyelitis. Soft tissue edema and ulcerations are seen in the 1st toe. Left Great Toe Osteomyelitis: Clinically doing well. -Continue IV Zosyn/Vancomycin. -ID following the patient & has recommended to continue current treatment -Ortho consulted and no intervention at this time, continue monitor. -Dr. Myers from wound care was consulted -Continue daily dressing care -Wound culture growth coag negative staph C. Diff Colitis: Recently was on Keflex for left great toe infection & presented with Diarrhea which has improved. -Stool C diff toxin assay positive -Continue PO Flagyl 500 mg TID (Day # 3) -complete 14 days course -Added lactobacillus. Left Peroneal Artery Occlusion: U/S of LE showed distal left peroneal artery is occluded. -Case discussed with Cuca from vascular recommended LLE angio with intervention d/t PAD. No final plan yet. -Continue limb check ESRD On Hemodialysis: HD on Tuesday/Tuesday /Tuesday -Nephrology following the patient. History Of Recurrent GI Bleed: last admission 10/05/16 with hematemesis. Stable so far. EGD on 10/07/16 : normal esophagus, stomach , duodenum , no evidence of bleed Pathology : Benign , with evidence of chronic gastritis Immunostain negative for H Pylori Type II Diabetes: On Insulin. Last Hba1c 7.1 was 10/05/16 -Continue basal Lantus 10 unit hs -Monitor BS and cover as per sliding scale. -Pharmacy consulted for glycemic management Chronic CHF Due to Systolic/Diastolic Dysfunction: Clinically stable & no evidence of decompensation or vol overload ECHO on 07/2017 : 1. Normal left ventricular size with low-normal systolic function. Estimated EF 50%. Hypokinesis of the inferolateral, mid inferior, base to mid septal wall. Akinesis of the inferior base. No left ventricular hypertrophy. Type 2 diastolic dysfunction. 2. The left atrium is mildly dilated. 3. There is mild mitral regurgitation. 4. Technically difficult study; IV echo-contrast may enhance image quality to better evaluate LV systolic function. 5. Compared to prior study on 09/22/2016, LV systolic function has declined. Anemia Of Chronic Disease: Stable. Monitoring H/H. History CAD S/P PTCA : s/p Bare metal stent on left Cx on 03/2016. Asymptomatic -Continue Aspirin, Imdur, Lopressor, statin Hypertension: BP stable -Continue Imdur, Lopressor Hyperlipidemia: Continue Lipitor 40 mg daily GERD: Stable.Continue PPI. HX OF Depression Disorder:Stable. -Continue Zoloft 100 mg PO Daily DVT Prophylaxis: Sq Heparin Code Status: FULL CODE Disposition: Discharge once is stable. Will need to continue to follow with outpatient wound clinic Vital Signs: Date Time Temp Pulse Resp B/P Pulse Ox O2 Delivery O2 Flow Rate FiO2 10/26/16 14:58 37.2 53 17 153/70 100 Room Air 10/26/16 08:40 Room Air 10/26/16 07:23 36.5 58 18 126/73 95 10/26/16 00:00 Room Air 10/25/16 23:53 36.9 67 18 148/66 98 Room Air 10/25/16 20:50 125/70 10/25/16 18:15 36.5 65 18 145/102 99 Room Air 10/25/16 18:06 36.7 64 137/74 10/25/16 18:00 Room Air 10/25/16 17:30 68 145/84 10/25/16 17:15 66 124/84 10/25/16 17:00 61 151/88 10/25/16 16:45 61 138/80 10/25/16 16:30 59 145/80 10/25/16 16:15 62 146/85 Lab Results: Results Past 24 Hours Test 10/25/16 18:15 10/25/16 20:17 10/26/16 06:00 10/26/16 07:33 Range/Units Bedside Glucose 117 137 126 70-90 mg/dl White Blood Count 8.13 4.8-10.8 K/uL Red Blood Count 3.22 4.2-5.4 M/uL Hemoglobin 9.8 12.0-16.0 g/dL Hematocrit 30.5 37-47 % Mean Corpuscular Volume 94.7 80-100 fL Mean Corpuscular Hemoglobin 30.4 25-34 pg Mean Corpuscular Hemoglobin Concent 32.1 32-36 g/dl RDW Standard Deviation 50.3 36.4-46.3 fL RDW Coefficient of Variation 14.4 11.5-14.5 % Platelet Count 350 130-400 K/uL Mean Platelet Volume 9.5 7.4-10.4 fL Sodium Level 137 136-145 mmol/L Potassium Level 4.5 3.5-5.1 mmol/L Chloride Level 98 98-107 mmol/L Carbon Dioxide Level 30 21-32 mmol/L Anion Gap 9.0 3-11 mmol/L Blood Urea Nitrogen 40 7-18 mg/dl Creatinine 7.20 0.60-1.20 mg/dl Est Creatinine Clear Calc Drug Dose 11.4 ml/min Estimated GFR () 7.0 Estimated GFR (Non- 6.1 BUN/Creatinine Ratio 5.4 10-20 Random Glucose 129 70-99 mg/dl Calcium Level 8.7 8.5-10.1 mg/dl Magnesium Level 2.3 1.8-2.4 mg/dl Random Vancomycin Level 16.9 mcg/ml Test 10/26/16 11:34 Range/Units Bedside Glucose 111 70-90 mg/dl
[2016-10-26] MEDS: LORAZEPAM 0.5 MG TAB PO PRN (18:25)
[2016-10-26] MEDS: SERTRALINE HCL 100 MG TAB PO SCH (20:43)
[2016-10-26] MEDS: RANITIDINE HCL 150 MG TAB PO SCH (20:44)
[2016-10-26] MEDS: INSULIN GLARGINE SOLOSTAR 100 UNITS/ML 3 ML PEN SC SCH (20:51)
[2016-10-26 23:15] VITALS: BP 158/93; PULSE 66; TEMP 36.9; O2SAT 98
[2016-10-27] VITALS (33 sets, daily range): BP systolic 128–185; BP diastolic 46–139; PULSE 30–67; TEMP 36.3–37.1; O2SAT 93–99
[2016-10-27] MEDS: PIPERACILL/TAZOBAC IV 4.5 GM in DEXTROSE 5% 100ML IV SCH (04:13)
[2016-10-27] MEDS: HEPARIN SOD 5000 UNIT/0.5 ML CARP SQ SCH ×3 (05:25→20:45)
[2016-10-27] MEDS ORDERED: EPOETIN ALFA 10,000 UNITS/ML VIAL SQ SCH (06:00)
[2016-10-27 07:10] LABS: BUN/CREATININE RATIO 6.1 (10-20); CALCIUM 8.9 mg/dl (8.5-10.1); CREATININE 9.1 mg/dl (0.60-1.20); MAGNESIUM 2.4 mg/dl (1.8-2.4); POTASSIUM 4.3 mmol/L (3.5-5.1)
[2016-10-27] MEDS: INSULIN ASPART 100 UNITS/ML 3 ML PEN SC SCH ×4 (07:57→20:44)
[2016-10-27] MEDS: LACTOBACILLUS ACIDOPHILUS (FLORANEX) TAB PO SCH ×5 (08:00→16:49)
[2016-10-27] MEDS ORDERED: EPOETIN ALFA 10,000 UNITS/ML VIAL IV. ONE (08:00)
--- NOTE | 2016-10-27 08:49 | Dialysis Progress Note ---
Nephrology Dialysis Note Date of Service: Oct 27, 2016. Subjective 50 yo female with diabetic foot ulcer who is scheduled for vascular procedure to look at the blood flows to the left foot this afternoon. doing dialysis this morning. diarrhea is better. pt feels better. foot looks like it is improving Objective Date Time Temp Pulse Resp B/P Pulse Ox O2 Delivery O2 Flow Rate FiO2 10/27/16 08:15 54 155/47 10/27/16 08:00 57 151/56 10/27/16 07:45 56 140/52 10/27/16 07:30 57 139/85 10/27/16 07:15 60 148/69 10/27/16 07:00 57 157/73 10/27/16 06:52 36.5 67 159/79 10/27/16 06:45 58 147/72 10/27/16 06:30 60 157/79 10/27/16 06:15 59 175/89 10/27/16 01:26 Room Air 10/27/16 00:20 Room Air 10/26/16 23:15 36.9 66 20 158/93 98 10/26/16 16:20 Room Air 10/26/16 14:58 37.2 53 17 153/70 100 Room Air Physical Exam: General-aaox3, obese Eyes-no scleral icterus ENT-mmm Neck-supple Lungs-clear Heart-germain Abdomen-bs+ s/nt/nd Extremities-no edema, left great toe ulcer-improving Neuro-nonfocal Current Inpatient Medications Medications (Trade) Dose Ordered Sig/Bladimir Route Start Time Stop Time Status Last Admin Dose Admin Metronidazole (Flagyl Tab) 500 mg TID PO 10/23/16 17:00 11/02/16 16:59 10/26/16 20:44 500 MG Heparin Sodium (Porcine) (Heparin Sq 5000 Unit/0.5ml) 5,000 unit Q8 SQ 10/23/16 22:00 11/22/16 21:59 10/26/16 20:52 5,000 UNIT Acetaminophen (Tylenol Tab) 650 mg Q4H PRN PO 10/23/16 15:00 11/22/16 14:59 Ondansetron HCl (Zofran Inj) 4 mg Q6H PRN IV 10/23/16 15:00 11/22/16 14:59 Glucose (Glucose 40% Gel) 15-30 GRAMS 15 GRAMS... UD PRN PO 10/23/16 15:00 11/22/16 14:59 Glucose (Glucose Chew Tab) 4-8 Tablets 4 Tabl... UD PRN PO 10/23/16 15:00 11/22/16 14:59 Dextrose (Dextrose 50% 50ML Syringe) 25-50ML OF 50% DW IV FOR... UD PRN IV 10/23/16 15:00 11/22/16 14:59 Glucagon (Glucagon Inj) 1 mg UD PRN SQ 10/23/16 15:00 11/22/16 14:59 Aspirin (Ecotrin Tab) 81 mg DAILY PO 10/24/16 08:00 11/23/16 08:59 10/26/16 09:26 81 MG Atorvastatin Calcium (Lipitor Tab) 40 mg DAILY PO 10/24/16 08:00 11/23/16 08:59 10/26/16 09:25 40 MG Calcium Acetate (Phoslo Cap) 1,334 mg DAILY PRN PO 10/24/16 08:00 11/23/16 07:59 10/24/16 14:26 1,334 MG Calcium Acetate (Phoslo Cap) 2,001 mg TIDM PO 10/23/16 17:00 11/22/16 16:59 10/26/16 17:38 2,001 MG Dicyclomine HCl (Bentyl Cap) 10 mg QID PRN PO 10/23/16 16:15 11/22/16 16:14 10/26/16 09:28 10 MG Isosorbide Mononitrate (Imdur Ext Rel Tab) 60 mg QAM PO 10/24/16 08:00 11/23/16 08:59 10/26/16 09:25 60 MG Isosorbide Mononitrate (Imdur Ext Rel Tab) 30 mg QAM PO 10/24/16 08:00 11/23/16 08:59 10/26/16 09:25 30 MG Lorazepam (Ativan Tab) 0.5 mg DAILY PRN PO 10/23/16 16:15 11/22/16 16:14 10/26/16 18:25 0.5 MG Methocarbamol (Robaxin Tab) 500 mg BID PRN PO 10/23/16 16:15 4/3/17 16:14 Metoprolol Tartrate (Lopressor Tab) 50 mg BID PO 10/23/16 20:00 11/22/16 20:59 10/26/16 20:44 50 MG Pantoprazole Sodium (Protonix Tab) 40 mg DAILY PO 10/24/16 08:00 11/23/16 08:59 10/26/16 09:25 40 MG Ranitidine HCl (zANTac TAB) 300 mg HS PO 10/23/16 21:00 11/22/16 20:59 10/26/16 20:44 300 MG Insulin Aspart (novoLOG ASPART) SLIDING SCALE ACHS SC 10/23/16 17:00 11/22/16 16:59 10/26/16 20:52 2 UNITS Miscellaneous Information 1 ea 1 ea UD PRN N/A 10/23/16 17:18 11/22/16 17:17 Piperacillin Sod/ Tazobactam Sod/ Dextrose (Zosyn Iv/D5 100ml) 120 ml @ 30 mls/hr Q12H IV 10/24/16 04:00 12/05/16 03:59 10/27/16 04:13 30 MLS/HR Piperacillin Sod/ Tazobactam Sod (Consult) 1 ea UD PRN N/A 10/23/16 17:00 11/22/16 16:59 Vancomycin HCl (Consult) 1 ea UD PRN N/A 10/23/16 17:00 11/22/16 16:59 Ondansetron HCl (Zofran Odt) 4 mg Q4H PRN PO 10/24/16 05:00 11/23/16 04:59 10/26/16 18:21 4 MG Sertraline HCl (Zoloft Tab) 100 mg HS PO 10/24/16 21:00 11/23/16 20:59 10/26/16 20:43 100 MG Insulin Glargine (Lantus Solostar Pen) see protocol text HS SC 10/24/16 21:00 11/23/16 20:59 10/26/16 20:51 5 UNIT Tramadol HCl (Ultram Tab) 50 mg Q6H PRN PO 10/26/16 02:00 11/25/16 01:59 Hydromorphone HCl (Dilaudid Inj) 0.5 mg Q6H PRN IV 10/26/16 00:45 11/09/16 00:44 10/26/16 06:11 0.5 MG Lactobacillus Acidophilus (Floranex Tab) 4 tab TIDM PO 10/26/16 12:00 11/25/16 11:59 10/26/16 17:38 4 TAB Epoetin Christopher (Procrit Inj) 10,000 units TODAY@0600 SQ 10/27/16 06:00 10/27/16 12:00 Last 24 Hours Test 10/26/16 11:34 10/26/16 16:39 10/26/16 20:11 10/27/16 06:10 Bedside Glucose 111 mg/dl 114 mg/dl 121 mg/dl Sodium Level 136 mmol/L Potassium Level 4.3 mmol/L Chloride Level 97 mmol/L Carbon Dioxide Level 26 mmol/L Anion Gap 13.0 mmol/L Blood Urea Nitrogen 56 mg/dl Creatinine 9.10 mg/dl Est Creatinine Clear Calc Drug Dose 9.1 ml/min Estimated GFR () 5.3 Estimated GFR (Non- 4.6 BUN/Creatinine Ratio 6.1 Random Glucose 107 mg/dl Calcium Level 8.9 mg/dl Magnesium Level 2.4 mg/dl Random Vancomycin Level 22.8 mcg/ml Assessment & Plan ESRD-seen on dialysis today. 2k bath. 2 liter uf. 3 hours. 300/600. access working well. bp is good. pt in good spirits. OSIRIS- continue phoslo 3 with meals, follow phos levels intermittently Anemia of renal failure-intermittent procrit for goal of hg of 10 to 11. redosed again today. [id number], no recent diarrhea. DFU-improving. for vascular procedure to look at blood flows.
[2016-10-27] MEDS: HYDROmorphone INJ 0.5 MG/0.5 ML SYR IV PRN (09:53)
[2016-10-27] MEDS: ISOSORBIDE MONONITRATE 30 MG TABCR PO SCH (10:04)
[2016-10-27] MEDS: ASPIRIN 81 MG ECTAB PO SCH ×2 (10:04→10:05)
[2016-10-27] MEDS: ISOSORBIDE MONONITRATE 60 MG TABCR PO SCH (10:05)
[2016-10-27] MEDS: CALCIUM ACETATE 667MG GELCAP PO SCH ×3 (10:05→17:39)
[2016-10-27] MEDS: METRONIDAZOLE 500 MG TAB PO SCH ×3 (10:05→20:39)
[2016-10-27] MEDS: METOPROLOL TARTRATE 50 MG TAB PO SCH ×2 (10:05→20:33)
[2016-10-27] MEDS: PANTOprazole SOD 40 MG TAB PO SCH (10:05)
[2016-10-27] MEDS: ATORVASTATIN 40 MG TAB PO SCH (10:05)
--- NOTE | 2016-10-27 10:32 | Progress Note ---
Subjective Date of Service: Oct 27, 2016. Subjective Pt evaluation today including: conversation w/ patient, physical exam, chart review, lab review pt seen in followup, just completed hd, for vascular procedure later today. still with pain in toe, diarrhea resolved. no abd pain. no f/c. tolerating abx. eval by wound center, continues with dressing changes. all remaining ros reviewed and are negative. Problem List Medical Problems: (1) Abdominal pain Status: Acute (2) Acute electrocardiogram changes Status: Acute (3) Elevated troponin Status: Acute (4) Elevated troponin Status: Acute (5) End stage renal disease Status: Acute (6) ESRD (end stage renal disease) on dialysis Status: Chronic (7) GI bleed Status: Acute (8) Hyperkalemia Status: Acute (9) Joint effusion Status: Acute (10) Left elbow pain Status: Acute (11) Left sided chest pain Status: Acute (12) Left sided chest pain Status: Acute (13) Limb ischemia Status: Acute (14) Medical non-compliance Status: Acute (15) Pneumonia Status: Acute (16) Pulmonary edema Status: Acute (17) Renal failure Status: Acute (18) Sinusitis Status: Acute (19) Substernal chest pain Status: Acute (20) Upper abdominal pain Status: Acute (21) Upper GI bleed Status: Acute (22) Urinary tract infection Status: Acute (23) Vomiting Status: Acute (24) Vomiting Status: Acute (25) Vomiting Status: Acute (26) Vomiting Status: Acute Objective Vital Signs Date Time Temp Pulse Resp B/P Pulse Ox O2 Delivery O2 Flow Rate FiO2 10/27/16 09:26 36.3 62 157/68 10/27/16 09:15 50 153/49 10/27/16 09:00 50 140/51 10/27/16 08:45 52 148/54 10/27/16 08:30 50 154/54 10/27/16 08:15 54 155/47 10/27/16 08:00 57 151/56 10/27/16 07:45 56 140/52 10/27/16 07:30 57 139/85 10/27/16 07:15 60 148/69 10/27/16 07:00 57 157/73 10/27/16 06:52 36.5 67 159/79 10/27/16 06:45 58 147/72 10/27/16 06:30 60 157/79 10/27/16 06:15 59 175/89 10/27/16 01:26 Room Air 10/27/16 00:20 Room Air 10/26/16 23:15 36.9 66 20 158/93 98 10/26/16 16:20 Room Air 10/26/16 14:58 37.2 53 17 153/70 100 Room Air Physical Exam General Appearance: WD/WN, no apparent distress Eyes: EOMI Neck: supple Respiratory/Chest: lungs clear Cardiovascular: regular rate, rhythm, no edema Abdomen: soft Extremities: non-tender, normal inspection, no pedal edema, + pertinent finding (dressing intact) Neurologic/Psychiatric: alert, oriented x 3 Skin: normal color Laboratory Results Item Value Date Time Gram Stain - Final Complete 10/23/162014 Ulcer Toe Left 1 C.difficile Toxin B Gene (PCR) - Final Complete 10/23/16 1300 Stool Positive for C. difficile toxin B gene Last 24 Hours Test 10/26/16 11:34 10/26/16 16:39 10/26/16 20:11 10/27/16 06:10 Bedside Glucose 111 mg/dl 114 mg/dl 121 mg/dl Sodium Level 136 mmol/L Potassium Level 4.3 mmol/L Chloride Level 97 mmol/L Carbon Dioxide Level 26 mmol/L Anion Gap 13.0 mmol/L Blood Urea Nitrogen 56 mg/dl Creatinine 9.10 mg/dl Est Creatinine Clear Calc Drug Dose 9.1 ml/min Estimated GFR () 5.3 Estimated GFR (Non- 4.6 BUN/Creatinine Ratio 6.1 Random Glucose 107 mg/dl Calcium Level 8.9 mg/dl Magnesium Level 2.4 mg/dl Random Vancomycin Level 22.8 mcg/ml Assessment and Plan (1) Osteomyelitis Assessment & Plan: will change to levaquin po, stop zosyn, can stop vanco by level as well. duration will depend on response to therapy, for vascular procedure today. (2) C. difficile colitis Assessment & Plan: cont vaughan, has not tolerated po vanco in past.
[2016-10-27] MEDS ORDERED: LEVOFLOXACIN 250 MG TAB PO SCH (11:00)
--- NOTE | 2016-10-27 11:58 | CONSULTATION REPORT ---
DATE OF CONSULTATION: 10/27/2016 DATE OF CONSULTATION: 10/27/2016. CHIEF COMPLAINT: Nonhealing ulceration to the right great toe. HISTORY OF PRESENT ILLNESS: The patient was recently admitted to [facility] for further evaluation of infection to the right great toe. The patient states she has had swelling, pain, redness in this area for over a month. The patient states that she was seen by her PCP and initiated a workup Keflex therapy. The patient states that this however has been worsening over the past few days causing her to subsequently be admitted. The patient currently denies any fever, chills or night sweats. The patient denies any chest pain, shortness of breath, abdominal discomfort, nausea or vomiting. The patient does have a prior history of and ulceration. The patient denies any other systemic complaints. PAST MEDICAL HISTORY: Positive for coronary artery disease, carotid stenosis, type 2 diabetes, dyslipidemia, renal failure with dialysis, GERD, hypertension and obesity. SOCIAL HISTORY: The patient is a former smoker, but none currently. MEDICATIONS: Were noted in the nursing notes and were reviewed. ALLERGIES: ADHESIVES AND POLLEN EXTRACT. PHYSICAL EXAMINATION: GENERAL: The patient is currently sitting in hospital bed in no acute distress, alert and cooperative throughout the examination. Vital signs were also reviewed and found to be unremarkable. The patient was afebrile. HEAD, EYES, EARS, NOSE, AND THROAT: Pupils equal and reactive to light. Sclerae clear. NECK: Supple. CHEST: Heart and lungs clear to auscultation. EXTREMITIES: Reveals the presence of a swollen, erythematous right great toe with a distal blackened dense eschar present. There is currently no open area or active drainage present. There is no proximal erythema or pain in the foot region. Pulses were obtained in the posterior tibial region to palpation, absent dorsal pedis. NEUROLOGICAL EXAMINATION: The patient is alert and oriented x3. There are no focal deficits noted. IMPRESSION: Choi grade 3 diabetic foot ulceration, right great toe with associated osteomyelitis. PLAN: At this time, due to the patient's vascular status no debridement would be indicated until this is subsequently addressed. MRI did show the presence of probable osteomyelitic changes in the distal phalanx of the right great toe. Further debridement and even more consideration for ultimate amputation of the distal phalanx will be made once the patient has had adequate revascularization. At the current time this area will just be maintained with Betadine and dry gauze dressings. The patient will be followed during her hospital course and also in the outpatient environment once discharged.
--- NOTE | 2016-10-27 11:59 | Progress Note ---
Internal Med Progress Note Date of Service: Oct 27, 2016. Provider Documentation: SUBJECTIVE: Patient is sitting in the bed in no apparent distress. Denies any new complaint. "My toe is getting better." Was dialyzed earlier today. Remains afebrile. No SOB. OBJECTIVE: Vital Signs-as noted below Examination: General- Alert/Awake and is in no acute distress Head- atraumatic Eyes- PERRL, EOMI ENT- ears, Nose & Throat are normal looking. Neck- Supple, Central trachea, No JVD. Lungs- B/L Clear to auscultation. Heart- Regular Rate/Rhythm, Normal S1,S2,. Abdomen- normal bowel sounds, soft Extremities-no calf tenderness, wound in the left great toe wrapped with clean dressing Neuro- alert, oriented x 3; PERRL, EOMI; no facial palsy; Skin- warm & dry Lab data as noted below. ASSESSMENT & PLAN: ORDERED: SURF MISTI PARR/SULEMAN COMMENTS: Has Specimen Been Obtained/Collected? Y Procedure Result Verified Site GRAM STAIN Final 10/24/16-07 RESULT NO EPITHELIAL CELLS NO WBCs SEEN FEW GRAM POSITIVE COCCI SURFACE WOUND CULTURE Final 10/27/16-1000 Organism 1 COAG NEG STAPHYLOCOCCUS QUANITY MANY SENS NO SENSITIVITY TO FOLLOW +MIXWOUND PLUS MODERATE COUNTS OF PROBABLE SKIN NATHANIEL Organism 2 ACHROMOBACTER XYLOSOXIDANS QUANITY FEW SENS SENSITIVITY TO FOLLOW SENSITIVITY RESULT INDICATES A MULTIPLY - RESISTANT ORGANISM. PHONED TO [facility] ([facility]ERR[facility]IMES) ON 10/27/16 AT 0849 BY Didier Figueroa. Results were verbalized back to SENA. RESULTS WERE ALSO CALLED TO [facility] INFECTION CONTROL ANSWERING MACHINE ON 10/27/16 BY SENA. 2. ACHROMOBACTER XYLOSOXIDANS Target Route Dose RX AB Cost M.I.C. IQ ------ ----- ------ -- ------ -------- - ------ TRIMET/SULFA S <=2/38 CEFTAZIDIME R >16 CEFEPIME R >16 IMIPENEM S 2 AZTREONAM R >16 GENTAMICIN R >8 TOBRAMYCIN R >8 AMIKACIN R >32 CIPROFLOXACIN I 2 LEVOFLOXACIN S <=2 PIP/TAZO R >64 MRI of the left foot showed a marrow edema seen within the tuft of the 1st distal phalanx with mild drop in signal on the T1-weighted sequences. The appearance suggests osteomyelitis. Soft tissue edema and ulcerations are seen in the 1st toe. Left Great Toe Osteomyelitis: Clinically doing well. -Continue IV Vancomycin & Levaquin has carli started. -ID following the patient & has recommended the antibiotic regimen. -Ortho consulted and no intervention at this time, continue monitor. -Dr. Myers from wound care was consulted -Continue daily dressing care -Wound culture growth coag negative staph C. Diff Colitis: Recently was on Keflex for left great toe infection & presented with Diarrhea which has improved. -Stool C diff toxin assay is positive -Continue PO Flagyl 500 mg TID (Day # 4) -complete 14 days course -Continue lactobacillus. Left Peroneal Artery Occlusion: U/S of LE showed distal left peroneal artery is occluded. -Case discussed with Cuca from vascular recommended LLE angio with intervention d/t PAD. No final plan yet. -Continue limb check ESRD On Hemodialysis: HD on Tuesday/Tuesday /Tuesday -Nephrology following the patient. History Of Recurrent GI Bleed: last admission 10/05/16 with hematemesis. Stable so far. EGD on 10/07/16 : normal esophagus, stomach , duodenum , no evidence of bleed Pathology : Benign , with evidence of chronic gastritis Immunostain negative for H Pylori Type II Diabetes: On Insulin. Last Hba1c 7.1 was 10/05/16 -Continue basal Lantus 10 unit hs -Monitor BS and cover as per sliding scale. -Pharmacy consulted for glycemic management Chronic CHF Due to Systolic/Diastolic Dysfunction: Clinically stable & no evidence of decompensation or vol overload ECHO on 07/2017 : 1. Normal left ventricular size with low-normal systolic function. Estimated EF 50%. Hypokinesis of the inferolateral, mid inferior, base to mid septal wall. Akinesis of the inferior base. No left ventricular hypertrophy. Type 2 diastolic dysfunction. 2. The left atrium is mildly dilated. 3. There is mild mitral regurgitation. 4. Technically difficult study; IV echo-contrast may enhance image quality to better evaluate LV systolic function. 5. Compared to prior study on 09/22/2016, LV systolic function has declined. Anemia Of Chronic Disease: Stable. Monitoring H/H. History CAD S/P PTCA : s/p Bare metal stent on left Cx on 03/2016. Asymptomatic -Continue Aspirin, Imdur, Lopressor, statin Hypertension: BP stable -Continue Imdur, Lopressor Hyperlipidemia: Continue Lipitor 40 mg daily GERD: Stable.Continue PPI. HX OF Depression Disorder:Stable. -Continue Zoloft 100 mg PO Daily DVT Prophylaxis: Sq Heparin Code Status: FULL CODE Disposition: Discharge once is stable. Will need to continue to follow with outpatient wound clinic Vital Signs: Date Time Temp Pulse Resp B/P Pulse Ox O2 Delivery O2 Flow Rate FiO2 10/27/16 10:28 Room Air 10/27/16 09:26 36.3 62 157/68 10/27/16 09:15 50 153/49 10/27/16 09:00 50 140/51 10/27/16 08:45 52 148/54 10/27/16 08:30 50 154/54 10/27/16 08:15 54 155/47 10/27/16 08:00 57 151/56 10/27/16 07:45 56 140/52 10/27/16 07:30 57 139/85 10/27/16 07:15 60 148/69 10/27/16 07:00 57 157/73 10/27/16 06:52 36.5 67 159/79 10/27/16 06:45 58 147/72 10/27/16 06:30 60 157/79 10/27/16 06:15 59 175/89 10/27/16 01:26 Room Air 10/27/16 00:20 Room Air 10/26/16 23:15 36.9 66 20 158/93 98 10/26/16 16:20 Room Air 10/26/16 14:58 37.2 53 17 153/70 100 Room Air Lab Results: Results Past 24 Hours Test 10/26/16 16:39 10/26/16 20:11 10/27/16 06:10 Range/Units Bedside Glucose 114 121 70-90 mg/dl Sodium Level 136 136-145 mmol/L Potassium Level 4.3 3.5-5.1 mmol/L Chloride Level 97 98-107 mmol/L Carbon Dioxide Level 26 21-32 mmol/L Anion Gap 13.0 3-11 mmol/L Blood Urea Nitrogen 56 7-18 mg/dl Creatinine 9.10 0.60-1.20 mg/dl Est Creatinine Clear Calc Drug Dose 9.1 ml/min Estimated GFR () 5.3 Estimated GFR (Non- 4.6 BUN/Creatinine Ratio 6.1 10-20 Random Glucose 107 70-99 mg/dl Calcium Level 8.9 8.5-10.1 mg/dl Magnesium Level 2.4 1.8-2.4 mg/dl Random Vancomycin Level 22.8 mcg/ml
[2016-10-27] MEDS ORDERED: LEVOFLOXACIN 750 MG TAB PO ONE (12:00)
[2016-10-27] MEDS ORDERED: MIDAZOLAM HCL 1 MG/ML 2ML VIAL ONE (13:47)
[2016-10-27] MEDS ORDERED: FENTANYL CITRATE INJ 50 MCG/1 ML 2 ML VIAL ONE (13:47)
--- NOTE | 2016-10-27 13:50 | Progress Note ---
Progress Note Date of Service Oct 27, 2016. Progress Note Patient for left leg arteriogram with intervention. I have discussed the risks options and benefits of the procedure with the patient. The patient understands the risks options and benefits and agrees to the procedure. I have examined the patient, reviewed the History & Physical and in the interval since the performance of the History & Physical I have noted the following changes of clinical significance: No changes noted
--- NOTE | 2016-10-27 13:51 | Procedure Note ---
Pre-Mod Sedation Assessment General Date of Moderate Sedation: Oct 27, 2016. Vital Signs: Vital Signs Past 12 Hours Date Time Temp Pulse Resp B/P Pulse Ox O2 Delivery O2 Flow Rate FiO2 10/27/16 12:34 36.9 59 160/72 97 Room Air 10/27/16 10:28 Room Air 10/27/16 09:26 36.3 62 157/68 10/27/16 09:15 50 153/49 10/27/16 09:00 50 140/51 10/27/16 08:45 52 148/54 10/27/16 08:30 50 154/54 10/27/16 08:15 54 155/47 10/27/16 08:00 57 151/56 10/27/16 07:45 56 140/52 10/27/16 07:30 57 139/85 10/27/16 07:15 60 148/69 10/27/16 07:00 57 157/73 10/27/16 06:52 36.5 67 159/79 10/27/16 06:45 58 147/72 10/27/16 06:30 60 157/79 10/27/16 06:15 59 175/89 Pre-Sedation Airway Assessment Oral Cavity: Chipped Teeth Short Thick Neck: No Hx of Sleep Apnea: Yes Smoking Status: Former Smoker Mallampati Classification: Class I ASA Classification: Class II Notes The planned sedation has been discussed with the patient and consent obtained. I have identified the patient, determined the appropriateness of sedation and have assessed the patient immediately prior to the procedure. All medicine(s) and interventions are by my order.
[2016-10-27] MEDS ORDERED: MIDAZOLAM HCL 1 MG/ML 2ML VIAL IV ONE (14:24)
[2016-10-27] MEDS ORDERED: FENTANYL CITRATE INJ 50 MCG/1 ML 2 ML VIAL IV ONE (14:25)
[2016-10-27] MEDS ORDERED: LIDOCAINE HCL 1% 20 ML VIAL INJ ONE (14:26)
--- NOTE | 2016-10-27 14:35 | Pharmacy Progress Note ---
Glycemic Control: Progress Nt Date of Service Oct 27, 2016. Scope Glycemic Pharmacist consulted by Dr Torres on 10/23/16 for glycemic control and to write orders per [facility] inpatient glycemic control protocol. Objective Accuchecks BSG (last 24hrs): Test 10/26/16 16:39 10/26/16 20:11 10/27/16 06:10 10/27/16 07:55 Bedside Glucose 114 mg/dl (70-90) 121 mg/dl (70-90) 94 mg/dl (70-90) Random Glucose 107 mg/dl (70-99) Test 10/27/16 11:37 10/27/16 13:55 Bedside Glucose 78 mg/dl (70-90) 72 mg/dl (70-90) Laboratory Data (last 24hrs) Test 10/27/16 06:10 Anion Gap 13.0 mmol/L BUN/Creatinine Ratio 6.1 Blood Urea Nitrogen 56 mg/dl Creatinine 9.10 mg/dl Potassium Level 4.3 mmol/L Sodium Level 136 mmol/L Recent Pertinent Medications Outpatient Anti-diabetic Regimen: * Lantus 10 units qHS * A1c - n/a; not accurate d/t HD Risk Factors for Insulin Resistance: * Infection: L toe osteo (ID consulted): On Vancomycin and Zosyn IV; Also positive for C. diff: On Flagyl PO * Surgery: LLE Angio today * Diet:DM2/renal --> NPO after midnight last night Assessment & Plan ASSESSMENT: * ADA & AACE recommend a goal blood sugar range 140-180 mg/dl for the majority of critically ill & non-critically ill patients. However, more stringent targets may be selected in individual cases. Using 120-160mg/dl for HD patient. 10/24/16 * 50 yo female admitted with Left toe osteomyelitis, now receiving IV antibiotics to treat. Pt known to the pharmacy glycemic service from past admissions. * A1c on file from 10/05/16 is not accurate d/t pt receiving HD. * Based upon past admissions this pt has minimal insulin requirements. Therefore, will proceed with caution in adjusting insulin doses. May even consider removing carb ratio if BSGs seem to be overcorrecting during the daytime. * Will adjust Lantus scale and schedule once daily at bedtime based upon previous admission data. If FBG appears to be elevated will increase Lantus dosing. * Will also narrow BSG goal range for improved glycemic control. 10/25/16 * BSGs ranging 110 - 162 mg/dl during the past 24 hours. BSGs are well- controlled during inpatient stay so far. * Will make slight adjustment to Lantus scale to avoid too strong basal rate. See details below. * Otherwise, no changes warranted at this time to inpatient DM regimen. Continue Novolog per current order. 10/26/16 * BSGs ranging 110 - 145 mg/dl during the past 24 hours. BSGs are well- controlled during inpatient stay so far. * NPO after midnight tonight for LLE angio, no changes in insulin, as Lantus is on a scales based on BSG 10/27/16 * Patient has had 0 units of insulin today d/t NPO status, only 5 units of Lantus last night, and BSGs in 70s. I will change Lantus scale parameters slightly so that patient does not get a dose unless BSG 120mg/dL or greater to prevent hypoglycemia. PLAN FOR INPATIENT GLYCEMIC CONTROL: * Basal insulin: Lantus qHS: * 0 units for BSG below 120 mg/dl * 5 units for BSG 120 - 180 mg/dl * 8 units for BSG above 180 mg/dl * Continue - Correctional Insulin with NOVOLOG per scale ACHS * Goal Range: Low 120 mg/dL - High 160 mg/dL * Correction Factor: 25 mg/dL/unit * Nutritional / Prandial insulin per carb ratio of 1 unit per 15 grams CHO consumed DISCHARGE RECOMMENDATIONS: * Pt can likely resume [employer] diabetes regimen of Lantus 10 units daily. * Please note that the plan above was derived based on current level of insulin resistance and hospital stress. These recommendations are appropriate for inpatient admission only. Plan of care upon discharge will need to be reassessed to avoid potential outpatient hypo/hyperglycemia. Thank you.
[2016-10-27] MEDS ORDERED: IODIXANOL (VISIPAQUE) 270 MG/ML 150ML XX ONE (14:52)
--- NOTE | 2016-10-27 14:53 | Procedure Note ---
Post-Moderate Sedation Plan General Date of Moderate Sedation Oct 27, 2016. Vital Signs: Vital Signs Past 12 Hours Date Time Temp Pulse Resp B/P Pulse Ox O2 Delivery O2 Flow Rate FiO2 10/27/16 12:34 36.9 59 160/72 97 Room Air 10/27/16 10:28 Room Air 10/27/16 09:26 36.3 62 157/68 10/27/16 09:15 50 153/49 10/27/16 09:00 50 140/51 10/27/16 08:45 52 148/54 10/27/16 08:30 50 154/54 10/27/16 08:15 54 155/47 10/27/16 08:00 57 151/56 10/27/16 07:45 56 140/52 10/27/16 07:30 57 139/85 10/27/16 07:15 60 148/69 10/27/16 07:00 57 157/73 10/27/16 06:52 36.5 67 159/79 10/27/16 06:45 58 147/72 10/27/16 06:30 60 157/79 10/27/16 06:15 59 175/89 Review - Discharge Plan Post Moderate Sedation Plan: On clinical assessment, the patient appears to have tolerated the conscious sedation without complications. Patient is recovering as anticipated. Patient will continue to be monitored by nursing and may be discharged when conscious sedation discharge criteria are met.
--- NOTE | 2016-10-27 14:56 | [facility] Post Operative Brief Note ---
Immediate Operative Summary Operative Date Oct 27, 2016. Pre-Operative Diagnosis Peripheral Artery Disease with Ulcer left great toe Post-Operative Diagnosis same Procedure(s) Performed Left Lower Extremity Angiogram, Mechanical Closure of Right Femoral Artery, Moderate Concious Sedation [id number] Jones Social Security Assessor Surgeon(s) Dr. Smith Estimated Blood Loss 5 ml Findings no large vessel stenosis, small vessel disease of the foot Specimens none Anesthesia Local with conscious moderate sedation Complication(s) None Disposition Recovery Room / PACU
--- NOTE | 2016-10-27 15:44 | DIAGNOSTIC IMAGING REPORT ---
DATE OF PROCEDURE: 10/27/2016 PREOPERATIVE DIAGNOSIS: Left great toe nonhealing wound. POSTOPERATIVE DIAGNOSIS: Same. PROCEDURE: 1. Ultrasound guided right femoral access. 2. Aortogram and left lower extremity angiogram (diagnostic only). 3. Percutaneous mechanical closure of right femoral artery. SURGEON: Dr. Andrea Jones M.D. ACCESS SERVICE REPRESENTATIVE: Dr. Handy Smith M.D. ANESTHESIA: Local plus conscious sedation. (28min) ESTIMATED BLOOD LOSS: 5 mL. INDICATIONS: This is a 50-year-old female with known carotid artery disease and end-stage renal disease on dialysis who we are seeing in the hospital for nonhealing left great toe wound. She has failed outpatient antibiotic treatment and was recently admitted for inpatient antibiotics to treat her worsening wound. Arterial duplex showed a possible stenosis in the superficial femoral artery. An angiogram was indicated for possible treatment of any arterial disease to increase her chances of wound healing. All risks, benefits, and alternatives were explained of the patient and she agreed to proceed. PROCEDURE: The patient was brought to the endovascular suite and placed in the supine position. The bilateral groins were prepped and draped in normal sterile fashion. A timeout was performed and all parties agreed to the correct patient and procedure to be performed. Under ultrasound guidance, the right common femoral artery was accessed on the first attempt. This was upsized to a 5-Angolan sheath. A rim catheter was advanced along with an angled Glidewire into the aorta. Aortogram showed a widely patent iliac arteries bilaterally. The rim catheter was used to select the left iliac artery was advanced to the level of the left common femoral artery. We then performed selective left lower extremity angiogram. This showed mild but less than 80% stenosis at the origin of her superficial femoral artery. The SFA was widely patent as well as the popliteal artery. The trifurcation at the below knee level was also patent. There was some mild proximal anterior tibial artery stenosis. In the level of the mid leg the anterior tibial and posterior tibial artery were occluded. There was really only peroneal runoff to the foot. This did reconstitute a dorsalis pedis artery. A selective angiogram of the left foot showed small vessels and really no metatarsal vessels at all. Given that her superficial femoral, popliteal and proximal tibial vessels were all patent we elected not to intervene at this time. We will continue with wound care to treat her foot infection. Selective right groin angiogram showed our access site was in the common femoral artery which was of good caliber and without calcification. A 6-Angolan [employer] was brought onto the field. It was deployed without incident. Hemostasis was achieved. Pressure was held for 3 minutes afterwards and the patient was transferred to recovery room in satisfactory condition with no apparent complications. I, Dr. Jones was present and scurbbed for the entire procedure. BALTAZAR
[2016-10-27] MEDS ORDERED: NURSING VERBAL MED ORDER ONE (16:30)
[2016-10-27] MEDS ORDERED: METOPROLOL TARTRATE 50 MG TAB PO ONE (16:45)
[2016-10-27] MEDS: SERTRALINE HCL 100 MG TAB PO SCH (20:40)
[2016-10-27] MEDS: INSULIN GLARGINE SOLOSTAR 100 UNITS/ML 3 ML PEN SC SCH (20:44)
[2016-10-28] MEDS: LORAZEPAM 0.5 MG TAB PO PRN (00:03)
[2016-10-28] MEDS: HEPARIN SOD 5000 UNIT/0.5 ML CARP SQ SCH ×3 (06:28→20:20)
[2016-10-28 07:17] VITALS: BP 171/98; PULSE 57; TEMP 36.5; O2SAT 99
[2016-10-28] MEDS: METOPROLOL TARTRATE 50 MG TAB PO SCH ×2 (08:00→20:00)
[2016-10-28] MEDS: METRONIDAZOLE 500 MG TAB PO SCH ×3 (08:17→20:14)
[2016-10-28] MEDS: ASPIRIN 81 MG ECTAB PO SCH (08:17)
[2016-10-28] MEDS: LACTOBACILLUS ACIDOPHILUS (FLORANEX) TAB PO SCH ×3 (08:17→17:39)
[2016-10-28] MEDS: ATORVASTATIN 40 MG TAB PO SCH (08:18)
[2016-10-28] MEDS: ISOSORBIDE MONONITRATE 30 MG TABCR PO SCH (08:18)
[2016-10-28] MEDS: PANTOprazole SOD 40 MG TAB PO SCH (08:19)
[2016-10-28] MEDS: CALCIUM ACETATE 667MG GELCAP PO SCH ×3 (08:19→17:39)
[2016-10-28] MEDS: INSULIN ASPART 100 UNITS/ML 3 ML PEN SC SCH ×4 (08:56→20:20)
--- NOTE | 2016-10-28 10:10 | Progress Note ---
Subjective Date of Service: Oct 28, 2016. Subjective s/p vascular procedure, tolerated well. tolerating po abx, levaquin and vaughan (c diff). afebrile overnight. No new labs. no overnight events. Problem List Medical Problems: (1) Abdominal pain Status: Acute (2) Acute electrocardiogram changes Status: Acute (3) Elevated troponin Status: Acute (4) Elevated troponin Status: Acute (5) End stage renal disease Status: Acute (6) ESRD (end stage renal disease) on dialysis Status: Chronic (7) GI bleed Status: Acute (8) Hyperkalemia Status: Acute (9) Joint effusion Status: Acute (10) Left elbow pain Status: Acute (11) Left sided chest pain Status: Acute (12) Left sided chest pain Status: Acute (13) Limb ischemia Status: Acute (14) Medical non-compliance Status: Acute (15) Pneumonia Status: Acute (16) Pulmonary edema Status: Acute (17) Renal failure Status: Acute (18) Sinusitis Status: Acute (19) Substernal chest pain Status: Acute (20) Upper abdominal pain Status: Acute (21) Upper GI bleed Status: Acute (22) Urinary tract infection Status: Acute (23) Vomiting Status: Acute (24) Vomiting Status: Acute (25) Vomiting Status: Acute (26) Vomiting Status: Acute Objective Vital Signs Date Time Temp Pulse Resp B/P Pulse Ox O2 Delivery O2 Flow Rate FiO2 10/28/16 07:17 36.5 57 18 171/98 99 Room Air 10/28/16 00:35 Room Air 10/27/16 23:41 36.6 60 20 128/57 98 Room Air 10/27/16 21:36 37.1 56 16 148/74 98 Room Air 10/27/16 20:37 62 18 97 Room Air 10/27/16 20:25 36.5 59 18 135/46 99 10/27/16 19:22 36.6 54 14 168/82 99 Room Air 10/27/16 18:28 37.1 55 14 155/85 98 10/27/16 17:22 37.1 63 16 174/96 93 Room Air 10/27/16 16:51 37.1 62 16 183/99 99 Room Air 10/27/16 16:22 37.0 61 16 180/108 96 Room Air 10/27/16 16:11 36.9 63 16 181/92 98 Room Air 10/27/16 16:10 Room Air 10/27/16 15:51 36.8 62 18 172/97 99 10/27/16 15:37 36.8 30 16 185/139 99 Room Air 10/27/16 15:25 62 21 177/86 97 Room Air 10/27/16 15:15 36.6 64 22 183/88 97 Room Air 10/27/16 15:05 36.6 61 20 183/88 97 Room Air 10/27/16 14:55 36.6 20 181/96 97 Room Air 10/27/16 14:55 36.6 66 20 181/96 97 Room Air 10/27/16 14:55 66 20 181/96 97 Room Air 10/27/16 13:59 36.9 59 20 160/72 97 Room Air 10/27/16 12:34 36.9 59 160/72 97 Room Air 10/27/16 10:28 Room Air Laboratory Results Item Value Date Time Gram Stain - Final Complete 10/23/162014 Ulcer Toe Left 1 C.difficile Toxin B Gene (PCR) - Final Complete 10/23/16 1300 Stool Positive for C. difficile toxin B gene Last 24 Hours Test 10/27/16 11:37 10/27/16 13:55 10/27/16 14:55 10/27/16 16:31 Bedside Glucose 78 mg/dl 72 mg/dl 71 mg/dl 80 mg/dl Test 10/27/16 20:23 10/28/16 07:25 Bedside Glucose 163 mg/dl 92 mg/dl Assessment and Plan (1) Osteomyelitis Assessment & Plan: would continue levaquin for 4 weeks. continue local wound care. can follow in wound center with ID as well post d/c. would give 4 weeks renally dosed levaquin and adjust duration if needed as oupt. ok for d/c from ID standpoint. (2) C. difficile colitis Assessment & Plan: continue vaughan, would continue while on levaquin. will follow as outpatient.
--- NOTE | 2016-10-28 12:10 | DIAGNOSTIC IMAGING REPORT ---
KUB HISTORY: Generalized abdominal pain. COMPARISON: Abdomen and pelvis CT 10/07/2016 FINDINGS: The bowel gas pattern is unremarkable. There are no dilated loops of small bowel to suggest an obstruction. No renal calculi. No ureteral calculi. Calcifications in the deep pelvis likely represent phleboliths. No pneumoperitoneum or pneumatosis. Extensive vascular calcifications are again noted. IMPRESSION: Unremarkable bowel gas pattern. No evidence for bowel obstruction. Electronically signed by: Jose Corona M.D. 10/28/2016 12:09 PM Dictated Date/Time: 10/28/2016 12:07 PM
[2016-10-28] MEDS: DICYCLOMINE HCL 10 MG CAP PO PRN (12:20)
--- NOTE | 2016-10-28 14:53 | Progress Note ---
Internal Med Progress Note Date of Service: Oct 28, 2016. Provider Documentation: SUBJECTIVE: Patient is sitting in the bed in no apparent distress. Denies any new complaint. "My toe is getting better." Remains afebrile. No SOB. Still c/o having loose BMs. OBJECTIVE: Vital Signs-as noted below Examination: General- Alert/Awake and is in no acute distress Head- atraumatic Eyes- PERRL, EOMI ENT- ears, Nose & Throat are normal looking. Neck- Supple, Central trachea, No JVD. Lungs- B/L Clear to auscultation. Heart- Regular Rate/Rhythm, Normal S1,S2,. Abdomen- normal bowel sounds, soft Extremities-no calf tenderness, wound in the left great toe wrapped with clean dressing Neuro- alert, oriented x 3; PERRL, EOMI; no facial palsy; Skin- warm & dry Lab data as noted below. ASSESSMENT & PLAN: ORDERED: SURF WND CU/SULEMAN COMMENTS: Has Specimen Been Obtained/Collected? Y Procedure Result Verified Site GRAM STAIN Final 10/24/16-0726 RESULT NO EPITHELIAL CELLS NO WBCs SEEN FEW GRAM POSITIVE COCCI SURFACE WOUND CULTURE Final 10/27/16-1000 Organism 1 COAG NEG STAPHYLOCOCCUS QUANITY MANY SENS NO SENSITIVITY TO FOLLOW +MIXWOUND PLUS MODERATE COUNTS OF PROBABLE SKIN NATHANIEL Organism 2 ACHROMOBACTER XYLOSOXIDANS QUANITY FEW SENS SENSITIVITY TO FOLLOW SENSITIVITY RESULT INDICATES A MULTIPLY - RESISTANT ORGANISM. PHONED TO [facility] (GUERRERO GRIMES) ON 10/27/16 AT 0849 BY Didier Figueroa. Results were verbalized back to SENA. RESULTS WERE ALSO CALLED TO [facility] INFECTION CONTROL ANSWERING MACHINE ON 10/27/16 BY SENA. 2. ACHROMOBACTER XYLOSOXIDANS Target Route Dose RX AB Cost M.I.C. IQ ------ ----- ------ -- ------ -------- - ------ TRIMET/SULFA S <=2/38 CEFTAZIDIME R >16 CEFEPIME R >16 IMIPENEM S 2 AZTREONAM R >16 GENTAMICIN R >8 TOBRAMYCIN R >8 AMIKACIN R >32 CIPROFLOXACIN I 2 LEVOFLOXACIN S <=2 PIP/TAZO R >64 MRI of the left foot showed a marrow edema seen within the tuft of the 1st distal phalanx with mild drop in signal on the T1-weighted sequences. The appearance suggests osteomyelitis. Soft tissue edema and ulcerations are seen in the 1st toe. Left Great Toe Osteomyelitis: Clinically doing well. -Continue IV Vancomycin & Levaquin has been started. -ID following the patient & has recommended the antibiotic regimen. -Ortho consulted and no intervention at this time, continue monitor. -Dr. Myers from wound care was consulted -Continue daily dressing care -Wound culture growth coag negative staph C. Diff Colitis: Recently was on Keflex for left great toe infection & presented with Diarrhea which has improved. -Stool C diff toxin assay is positive -Continue PO Flagyl 500 mg TID (Day # 5) -complete 14 days course -Continue lactobacillus. -Re-check C. Diff as Levaquin may be making it hard to be resolved. -KUB is negative Left Peroneal Artery Occlusion: U/S of LE showed distal left peroneal artery is occluded. -Case discussed with Cuca from vascular recommended LLE angio with intervention d/t PAD. No final plan yet. -Continue limb check ESRD On Hemodialysis: HD on Tuesday/Tuesday /Tuesday -Nephrology following the patient. History Of Recurrent GI Bleed: last admission 10/05/16 with hematemesis. Stable so far. EGD on 10/07/16 : normal esophagus, stomach , duodenum , no evidence of bleed Pathology : Benign , with evidence of chronic gastritis Immunostain negative for H Pylori Type II Diabetes: On Insulin. Last Hba1c 7.1 was 10/05/16 -Continue basal Lantus 10 unit hs -Monitor BS and cover as per sliding scale. -Pharmacy consulted for glycemic management Chronic CHF Due to Systolic/Diastolic Dysfunction: Clinically stable & no evidence of decompensation or vol overload ECHO on 07/2017 : 1. Normal left ventricular size with low-normal systolic function. Estimated EF 50%. Hypokinesis of the inferolateral, mid inferior, base to mid septal wall. Akinesis of the inferior base. No left ventricular hypertrophy. Type 2 diastolic dysfunction. 2. The left atrium is mildly dilated. 3. There is mild mitral regurgitation. 4. Technically difficult study; IV echo-contrast may enhance image quality to better evaluate LV systolic function. 5. Compared to prior study on 09/22/2016, LV systolic function has declined. Anemia Of Chronic Disease: Stable. Monitoring H/H. History CAD S/P PTCA : s/p Bare metal stent on left Cx on 03/2016. Asymptomatic -Continue Aspirin, Imdur, Lopressor, statin Hypertension: BP stable -Continue Imdur, Lopressor Hyperlipidemia: Continue Lipitor 40 mg daily GERD: Stable.Continue PPI. HX OF Depression Disorder:Stable. -Continue Zoloft 100 mg PO Daily DVT Prophylaxis: Sq Heparin Code Status: FULL CODE Disposition: Discharge once is stable. Will need to continue to follow with outpatient wound clinic Vital Signs: Date Time Temp Pulse Resp B/P Pulse Ox O2 Delivery O2 Flow Rate FiO2 10/28/16 16:10 Room Air 10/28/16 16:00 36.7 58 18 118/75 97 Room Air 10/28/16 10:47 Room Air 10/28/16 07:17 36.5 57 18 171/98 99 Room Air 10/28/16 00:35 Room Air 10/27/16 23:41 36.6 60 20 128/57 98 Room Air 10/27/16 21:36 37.1 56 16 148/74 98 Room Air 10/27/16 20:37 62 18 97 Room Air 10/27/16 20:25 36.5 59 18 135/46 99 10/27/16 19:22 36.6 54 14 168/82 99 Room Air 10/27/16 18:28 37.1 55 14 155/85 98 Lab Results: Results Past 24 Hours Test 10/27/16 20:23 10/28/16 07:25 10/28/16 11:28 10/28/16 16:18 Range/Units Bedside Glucose 163 92 187 111 70-90 mg/dl
[2016-10-28 16:00] VITALS: BP 118/75; PULSE 18; PULSE 58; TEMP 36.7; O2SAT 97
[2016-10-28] MEDS: CLOTRIMAZOLE 10 MG TROCHE MT SCH ×3 (16:13→23:58)
[2016-10-28] MEDS: SERTRALINE HCL 100 MG TAB PO SCH (20:14)
[2016-10-28] MEDS: INSULIN GLARGINE SOLOSTAR 100 UNITS/ML 3 ML PEN SC SCH (20:19)
[2016-10-28 20:22] VITALS: BP 115/66; PULSE 57
[2016-10-28 23:29] VITALS: BP 166/82; PULSE 61; TEMP 36.8; O2SAT 97
[2016-10-29] VITALS (19 sets, daily range): BP systolic 123–180; BP diastolic 66–101; PULSE 56–69; TEMP 36.6–37.1; O2SAT 94–99
[2016-10-29] MEDS: ONDANSETRON 4MG OD TAB PO PRN ×2 (02:39→06:32)
[2016-10-29] MEDS: HEPARIN SOD 5000 UNIT/0.5 ML CARP SQ SCH ×3 (05:52→21:05)
[2016-10-29 06:02] LABS: HEMATOCRIT 33.2 % (37-47); MEAN CORPUSCULAR HEMOGLOBIN 30.6 pg (25-34); MEAN CORPUSCULAR HGB CONC 31.9 g/dl (32-36); MEAN PLATELET VOLUME 10.1 fL (7.4-10.4); PLATELET COUNT 358 K/uL (130-400); RED BLOOD COUNT 3.46 M/uL (4.2-5.4); WHITE BLOOD COUNT 8.15 K/uL (4.8-10.8)
[2016-10-29] MEDS: CLOTRIMAZOLE 10 MG TROCHE MT SCH ×5 (06:32→23:00)
[2016-10-29 06:45] LABS: BUN/CREATININE RATIO 5.5 (10-20); CALCIUM 8.9 mg/dl (8.5-10.1); CREATININE 8.9 mg/dl (0.60-1.20)
--- NOTE | 2016-10-29 07:50 | Nephrology Progress Note ---
Nephrology Progress Note Date of Service: Oct 29, 2016. Subjective 50 yo female with diabetic foot ulcer with cdiff and recurrent diarrhea and now with yeast infection as well. pt has noticed a metallic taste in her mouth from one of the new medications. unpleasant feeling. otherwise doing well. no chest pain or sob. pt was to have a dobutamine stress test this week as an outpt for eventual preparation of carotid surgery. follows with Dr. Venegas of [facility]. Objective Date Time Temp Pulse Resp B/P Pulse Ox O2 Delivery O2 Flow Rate FiO2 10/29/16 00:01 Room Air 10/28/16 23:29 36.8 61 20 166/82 97 Room Air 10/28/16 21:21 Room Air 10/28/16 20:22 57 115/66 10/28/16 16:10 Room Air 10/28/16 16:00 36.7 58 18 118/75 97 Room Air 10/28/16 10:47 Room Air Physical Exam: General-aaox3, obese Eyes-no scleral icterus ENT-mmm Neck-supple Lungs-cta Heart-germain Abdomen-bs+ s/nt/nd Extremities-no edema, left great toe ulcer-improving Neuro-nonfocal Current Inpatient Medications Medications (Trade) Dose Ordered Sig/Bladimir Route Start Time Stop Time Status Last Admin Dose Admin Metronidazole (Flagyl Tab) 500 mg TID PO 10/23/16 17:00 11/02/16 16:59 10/28/16 20:14 500 MG Heparin Sodium (Porcine) (Heparin Sq 5000 Unit/0.5ml) 5,000 unit Q8 SQ 10/23/16 22:00 11/22/16 21:59 10/29/16 05:52 5,000 UNIT Acetaminophen (Tylenol Tab) 650 mg Q4H PRN PO 10/23/16 15:00 11/22/16 14:59 Ondansetron HCl (Zofran Inj) 4 mg Q6H PRN IV 10/23/16 15:00 11/22/16 14:59 Glucose (Glucose 40% Gel) 15-30 GRAMS 15 GRAMS... UD PRN PO 10/23/16 15:00 11/22/16 14:59 Glucose (Glucose Chew Tab) 4-8 Tablets 4 Tabl... UD PRN PO 10/23/16 15:00 11/22/16 14:59 Dextrose (Dextrose 50% 50ML Syringe) 25-50ML OF 50% DW IV FOR... UD PRN IV 10/23/16 15:00 11/22/16 14:59 Glucagon (Glucagon Inj) 1 mg UD PRN SQ 10/23/16 15:00 11/22/16 14:59 Aspirin (Ecotrin Tab) 81 mg DAILY PO 10/24/16 08:00 11/23/16 08:59 10/28/16 08:17 81 MG Atorvastatin Calcium (Lipitor Tab) 40 mg DAILY PO 10/24/16 08:00 11/23/16 08:59 10/28/16 08:18 40 MG Calcium Acetate (Phoslo Cap) 1,334 mg DAILY PRN PO 10/24/16 08:00 11/23/16 07:59 10/24/16 14:26 1,334 MG Calcium Acetate (Phoslo Cap) 2,001 mg TIDM PO 10/23/16 17:00 11/22/16 16:59 10/28/16 17:39 2,001 MG Dicyclomine HCl (Bentyl Cap) 10 mg QID PRN PO 10/23/16 16:15 11/22/16 16:14 10/28/16 12:20 10 MG Lorazepam (Ativan Tab) 0.5 mg DAILY PRN PO 10/23/16 16:15 11/22/16 16:14 10/28/16 00:03 0.5 MG Methocarbamol (Robaxin Tab) 500 mg BID PRN PO 10/23/16 16:15 11/22/16 16:14 Metoprolol Tartrate (Lopressor Tab) 50 mg BID PO 10/23/16 20:00 11/22/16 20:59 10/27/16 20:33 50 MG Pantoprazole Sodium (Protonix Tab) 40 mg DAILY PO 10/24/16 08:00 11/23/16 08:59 10/28/16 08:19 40 MG Insulin Aspart (novoLOG ASPART) SLIDING SCALE ACHS SC 10/23/16 17:00 11/22/16 16:59 10/28/16 17:43 3 UNITS Miscellaneous Information (Consult Glycemic Management Pharmacy) 1 ea UD PRN N/A 10/23/16 17:18 11/22/16 17:17 Ondansetron HCl (Zofran Odt) 4 mg Q4H PRN PO 10/24/16 05:00 11/23/16 04:59 10/29/16 06:32 4 MG Sertraline HCl (Zoloft Tab) 100 mg HS PO 10/24/16 21:00 11/23/16 20:59 10/28/16 20:14 100 MG Insulin Glargine (Lantus Solostar Pen) see protocol text HS SC 10/24/16 21:00 11/23/16 20:59 10/28/16 20:19 5 UNIT Tramadol HCl (Ultram Tab) 50 mg Q6H PRN PO 10/26/16 02:00 11/25/16 01:59 10/28/16 00:04 50 MG Lactobacillus Acidophilus (Floranex Tab) 4 tab TIDM PO 10/26/16 12:00 11/25/16 11:59 10/28/16 17:39 4 TAB Levofloxacin (Levaquin Tab) 500 mg Q48H PO 10/29/16 11:00 12/08/16 10:59 Isosorbide Mononitrate (Imdur Ext Rel Tab) 90 mg QAM PO 10/28/16 08:00 11/27/16 07:59 10/28/16 08:18 90 MG Clotrimazole (Mycelex 10MG Paul) 1 paul 5XDQ4H MT 10/28/16 15:00 11/07/16 14:59 10/28/16 23:58 1 PAUL Epoetin Christopher (Procrit Inj) 10,000 units TODAY@0800 IV. 10/29/16 08:00 10/29/16 16:00 Last 24 Hours Test 10/28/16 11:28 10/28/16 16:18 10/28/16 19:59 10/29/16 05:36 Bedside Glucose 187 mg/dl 111 mg/dl 146 mg/dl White Blood Count 8.15 K/uL Red Blood Count 3.46 M/uL Hemoglobin 10.6 g/dL Hematocrit 33.2 % Mean Corpuscular Volume 96.0 fL Mean Corpuscular Hemoglobin 30.6 pg Mean Corpuscular Hemoglobin Concent 31.9 g/dl RDW Standard Deviation 50.6 fL RDW Coefficient of Variation 14.6 % Platelet Count 358 K/uL Mean Platelet Volume 10.1 fL Sodium Level 138 mmol/L Potassium Level 4.0 mmol/L Chloride Level 100 mmol/L Carbon Dioxide Level 22 mmol/L Anion Gap 16.0 mmol/L Blood Urea Nitrogen 48 mg/dl Creatinine 8.90 mg/dl Est Creatinine Clear Calc Drug Dose 9.3 ml/min Estimated GFR () 5.5 Estimated GFR (Non- 4.7 BUN/Creatinine Ratio 5.5 Random Glucose 131 mg/dl Calcium Level 8.9 mg/dl Test 10/29/16 07:16 Bedside Glucose 106 mg/dl Date/Time Source Procedure Growth Status 10/29/16 00:01 Stool C.difficile Toxin B Gene (PCR) - Final No C. difficile toxin B gene detected Complete Assessment & Plan ESRD-for dialysis today, will continue on a 2k bath to help control the k. OSIRIS- continue phoslo 3 with meals, follow phos levels intermittently Anemia of renal failure-intermittent procrit for goal of hg of 10 to 11. .
[2016-10-29] MEDS: CALCIUM ACETATE 667MG GELCAP PO SCH ×4 (08:00→17:41)
[2016-10-29] MEDS ORDERED: EPOETIN ALFA 10,000 UNITS/ML VIAL IV. SCH (08:00)
[2016-10-29] MEDS: METRONIDAZOLE 500 MG TAB PO SCH ×3 (08:23→20:59)
[2016-10-29] MEDS: DICYCLOMINE HCL 10 MG CAP PO PRN (08:23)
[2016-10-29] MEDS: ASPIRIN 81 MG ECTAB PO SCH (08:23)
[2016-10-29] MEDS: PANTOprazole SOD 40 MG TAB PO SCH (08:24)
[2016-10-29] MEDS: LACTOBACILLUS ACIDOPHILUS (FLORANEX) TAB PO SCH ×3 (08:24→17:40)
[2016-10-29] MEDS: ATORVASTATIN 40 MG TAB PO SCH (08:24)
[2016-10-29] MEDS: INSULIN ASPART 100 UNITS/ML 3 ML PEN SC SCH ×4 (08:28→21:00)
[2016-10-29] MEDS ORDERED: LEVOFLOXACIN 500 MG TAB PO SCH (11:00)
--- NOTE | 2016-10-29 11:12 | Progress Note ---
Internal Med Progress Note Date of Service: Oct 29, 2016. Provider Documentation: SUBJECTIVE: Patient is sitting in the bed in no apparent distress, being dialyzed. Denies any new complaint. "My toe is getting better." Remains afebrile. No SOB. Still c/o having intermittent loose BMs. OBJECTIVE: Vital Signs-as noted below Examination: General- Alert/Awake and is in no acute distress Head- atraumatic Eyes- PERRL, EOMI ENT- ears, Nose & Throat are normal looking. Neck- Supple, Central trachea, No JVD. Lungs- B/L Clear to auscultation. Heart- Regular Rate/Rhythm, Normal S1,S2,. Abdomen- normal bowel sounds, soft Extremities-no calf tenderness, wound in the left great toe wrapped with clean dressing Neuro- alert, oriented x 3; PERRL, EOMI; no facial palsy; Skin- warm & dry Lab data as noted below. ASSESSMENT & PLAN: ORDERED: SURF [facility]ISTI [facility] COMMENTS: Has Specimen Been Obtained/Collected? Y Procedure Result Verified Site GRAM STAIN Final 10/24/16-07 RESULT NO EPITHELIAL CELLS NO WBCs SEEN FEW GRAM POSITIVE COCCI SURFACE WOUND CULTURE Final 10/27/16-1000 Organism 1 COAG NEG STAPHYLOCOCCUS QUANITY MANY SENS NO SENSITIVITY TO FOLLOW +MIXWOUND PLUS MODERATE COUNTS OF PROBABLE SKIN NATHANIEL Organism 2 ACHROMOBACTER XYLOSOXIDANS QUANITY FEW SENS SENSITIVITY TO FOLLOW SENSITIVITY RESULT INDICATES A MULTIPLY - RESISTANT ORGANISM. PHONED TO [facility] (GUERRERO GRIMES) ON 10/27/16 AT 0849 BY Didier Figueroa. Results were verbalized back to SENA. RESULTS WERE ALSO CALLED TO [facility] INFECTION CONTROL ANSWERING MACHINE ON 10/27/16 BY SENA. 2. ACHROMOBACTER XYLOSOXIDANS Target Route Dose RX AB Cost M.I.C. IQ ------ ----- ------ -- ------ -------- - ------ TRIMET/SULFA S <=2/38 CEFTAZIDIME R >16 CEFEPIME R >16 IMIPENEM S 2 AZTREONAM R >16 GENTAMICIN R >8 TOBRAMYCIN R >8 AMIKACIN R >32 CIPROFLOXACIN I 2 LEVOFLOXACIN S <=2 PIP/TAZO R >64 MRI of the left foot showed a marrow edema seen within the tuft of the 1st distal phalanx with mild drop in signal on the T1-weighted sequences. The appearance suggests osteomyelitis. Soft tissue edema and ulcerations are seen in the 1st toe. Left Great Toe Osteomyelitis: Clinically doing well. -Off IV Vancomycin & continue Levaquin (Day # 3). Needs for total 4 weeks. -ID following the patient & has recommended the antibiotic regimen. -Ortho consulted and no intervention at this time, continue monitor. -Dr. Myers from wound care was consulted -Continue daily dressing care -Wound culture growth coag negative staph C. Diff Colitis: Recently was on Keflex for left great toe infection & presented with Diarrhea which has improved. -Stool C diff toxin assay is positive -Continue PO Flagyl 500 mg TID (Day # 6). Continue as long patient is on Levaquin and even one week beyond that. -Continue lactobacillus. -Repeat C. Diff is negative. -KUB is negative Left Peroneal Artery Occlusion: U/S of LE showed distal left peroneal artery is occluded. -Vascular surgery was involved for evaluation -Patient has angiogram done and has with following finding Findings no large vessel stenosis, small vessel disease of the foot ESRD On Hemodialysis: HD on Tuesday/Tuesday /Tuesday -Nephrology following the patient. History Of Recurrent GI Bleed: last admission 10/05/16 with hematemesis. Stable so far. EGD on 10/07/16 : normal esophagus, stomach , duodenum , no evidence of bleed Pathology : Benign , with evidence of chronic gastritis Immunostain negative for H Pylori Type II Diabetes: On Insulin. Last Hba1c 7.1 was 10/05/16 -Continue basal Lantus 10 unit hs -Monitor BS and cover as per sliding scale. -Pharmacy consulted for glycemic management Chronic CHF Due to Systolic/Diastolic Dysfunction: Clinically stable & no evidence of decompensation or vol overload ECHO on 07/2017 : 1. Normal left ventricular size with low-normal systolic function. Estimated EF 50%. Hypokinesis of the inferolateral, mid inferior, base to mid septal wall. Akinesis of the inferior base. No left ventricular hypertrophy. Type 2 diastolic dysfunction. 2. The left atrium is mildly dilated. 3. There is mild mitral regurgitation. 4. Technically difficult study; IV echo-contrast may enhance image quality to better evaluate LV systolic function. 5. Compared to prior study on 09/22/2016, LV systolic function has declined. Anemia Of Chronic Disease: Stable. Monitoring H/H. History CAD S/P PTCA : s/p Bare metal stent on left Cx on 03/2016. Asymptomatic -Continue Aspirin, Imdur, Lopressor, statin Hypertension: BP stable -Continue Imdur, Lopressor Hyperlipidemia: Continue Lipitor 40 mg daily GERD: Stable.Continue PPI. HX OF Depression Disorder:Stable. -Continue Zoloft 100 mg PO Daily DVT Prophylaxis: Sq Heparin Code Status: FULL CODE Disposition: Discharge home later today. Follow up with PCP on 11/03/2016 @ 10.50 AM Follow up for outpatient dialysis on Tuesday, Tuesday & Tuesday. Follow up with Outpatient Wound Clinic as per their advice Vital Signs: Date Time Temp Pulse Resp B/P Pulse Ox O2 Delivery O2 Flow Rate FiO2 10/29/16 12:15 62 141/71 10/29/16 12:00 60 133/70 10/29/16 11:45 63 128/72 10/29/16 11:30 61 141/69 10/29/16 11:15 59 123/68 10/29/16 11:00 61 143/66 10/29/16 10:45 57 125/71 10/29/16 10:30 60 143/72 10/29/16 10:15 56 139/76 10/29/16 10:00 57 142/74 10/29/16 09:45 59 152/78 10/29/16 09:34 62 149/87 10/29/16 09:23 36.6 65 169/83 10/29/16 07:55 36.6 62 18 180/93 99 Room Air 10/29/16 00:01 Room Air 10/28/16 23:29 36.8 61 20 166/82 97 Room Air 10/28/16 21:21 Room Air 10/28/16 20:22 57 115/66 10/28/16 16:10 Room Air 10/28/16 16:00 36.7 58 18 118/75 97 Room Air Lab Results: Results Past 24 Hours Test 10/28/16 16:18 10/28/16 19:59 10/29/16 05:36 10/29/16 07:16 Range/Units Bedside Glucose 111 146 106 70-90 mg/dl White Blood Count 8.15 4.8-10.8 K/uL Red Blood Count 3.46 4.2-5.4 M/uL Hemoglobin 10.6 12.0-16.0 g/dL Hematocrit 33.2 37-47 % Mean Corpuscular Volume 96.0 80-100 fL Mean Corpuscular Hemoglobin 30.6 25-34 pg Mean Corpuscular Hemoglobin Concent 31.9 32-36 g/dl RDW Standard Deviation 50.6 36.4-46.3 fL RDW Coefficient of Variation 14.6 11.5-14.5 % Platelet Count 358 130-400 K/uL Mean Platelet Volume 10.1 7.4-10.4 fL Sodium Level 138 136-145 mmol/L Potassium Level 4.0 3.5-5.1 mmol/L Chloride Level 100 98-107 mmol/L Carbon Dioxide Level 22 21-32 mmol/L Anion Gap 16.0 3-11 mmol/L Blood Urea Nitrogen 48 7-18 mg/dl Creatinine 8.90 0.60-1.20 mg/dl Est Creatinine Clear Calc Drug Dose 9.3 ml/min Estimated GFR () 5.5 Estimated GFR (Non- 4.7 BUN/Creatinine Ratio 5.5 10-20 Random Glucose 131 70-99 mg/dl Calcium Level 8.9 8.5-10.1 mg/dl Test 10/29/16 11:20 Range/Units Bedside Glucose 146 70-90 mg/dl Microbiology Results 10/29/16 C.difficile Toxin B Gene (PCR) - Final, Complete No C. difficile toxin B gene detected
[2016-10-29] MEDS ORDERED: ONDA4TAB46 PO (12:40)
[2016-10-29] MEDS ORDERED: MTR500 PO (12:40)
[2016-10-29] MEDS ORDERED: LCTX PO (12:40)
[2016-10-29] MEDS ORDERED: MYC10 MT (12:40)
[2016-10-29] MEDS ORDERED: LVQ500 PO (12:40)
--- NOTE | 2016-10-29 12:42 | Discharge Instructions ---
Discharge Instructions Date of Service Oct 29, 2016. Admission Reason for Admission: C Difficile Colitis, Diabetic Foot Infection Discharge Discharge Diagnosis / Problem: C. Diff Colitis Discharge Goals Goal(s): Decrease discomfort, Improve function, Increase independence, Improve disease control, Improve nutritional status, Learn about illness, Diagnostic testing, Therapeutic intervention Activity Recommendations Activity Limitations: resume your previous activity (As Tolerated.) Lifting Limitations: no more than 5 pounds Exercise/Sports Limitations: as tolerated May Resume Sexual Activity: when tolerated Shower/Bathe: no limitations (Keep the affected area of foot dry.) . Instructions / Follow-Up Instructions / Follow-Up 1. Use all the medications as directed. 2. Monitor your blood sugar regularly. Follow up with PCP on 11/03/2016 @ 10.50 AM Follow up for outpatient dialysis on Tuesday, Tuesday & Tuesday. Follow up with Outpatient Wound Clinic as per their advice Current Hospital Diet Patient's current hospital diet: Diabetes Type 2 Diet, Renal Diet Discharge Diet Recommended Diet: Diabetes Type 2 Diet, Renal Diet Fluid Restriction: 1500 ml (6 cups) Procedures Procedures Performed: Left Lower Extremity Angiogram, Mechanical Closure of Right Femoral Artery, Moderate Concious Sedation [id number] Pending Studies Studies pending at discharge: no Laboratory Results Hemoglobin A1c Test 10/05/16 21:20 Range/Units Estimated Average Glucose 157 mg/dl Hemoglobin A1c 7.1 H 4.5-5.6 % Medical Emergencies . Who to Call and When: Medical Emergencies: If at any time you feel your situation is an emergency, please call 911 immediately. . Non-Emergent Contact Non-Emergency issues call your: Primary Care Provider Call Non-Emergent contact if: you have a fever, wound has increased drainage, wound has increased redness, wound has increased pain . . "Provider Documentation" section prepared by Manuel Camejo. VTE Core Measure Inpt VTE Proph given/why not?: Unfractionated heparin SQ
--- NOTE | 2016-10-29 12:47 | Discharge Summary ---
Discharge Summary Date of Service Oct 29, 2016. Discharge Summary Admission Date: Oct 23, 2016 at 14:59 Discharge Date: Oct 30, 2016 Discharge Disposition: Home with services Principal Diagnosis: Left Great Osteomyelitis C. Diff. Colitis Secondary Diagnoses/Problems: History Recurrent GI Bleed ESRD (On Hemodialysis) Type II Diabetes Chronic Systolic/Diastolic CHF PAD History CAD Hypertension GERD Dyslipidemia History Depression Procedures: MRI OF THE LEFT FOREFOOT WITHOUT IV CONTRAST CLINICAL HISTORY: Foot infection. COMPARISON STUDY: Radiographs of the left 1st toe dated 10/23/2016. FINDINGS: There is mild marrow edema seen on the STIR images within the tuft of the 1st distal phalanx. There is only minimal drop in signal on the T1-weighted sequences. No cortical disruption is identified. No additional foci of marrow signal abnormality are seen in the forefoot. A cutaneous defect in the distal aspect of the 1st toe suggests ulceration. There is soft tissue edema and thickening within the 1st toe suggesting cellulitis. No organized fluid collection is identified. The visualized flexor and extensor tendons appear intact. IMPRESSION: 1. There is marrow edema seen within the tuft of the 1st distal phalanx with mild drop in signal on the T1-weighted sequences. The appearance suggests osteomyelitis. No clear cortical disruption is seen. 2. No additional foci of marrow abnormality are identified in the visualized forefoot. 3. Soft tissue edema and ulcerations are seen in the 1st toe. The appearance suggests cellulitis. No organized fluid collection is identified. Vaccinations: NONE Consultations: ID Ortho Wound Care PT/OT Pending Studies/Follow-Up: Follow p with ID and Wound Care as outpatient. Medication Reconciliation New Medications: Lactobacillus Acidophilus (Floranex) 1 Tab Tab 1 TAB PO TID for 35 Days, #105 TAB 0 Refills Ondansetron Hcl (Zofran) 4 Mg Tab 4 MG PO TID PRN for Nausea, #30 TAB Clotrimazole (Clotrimazole) 1 Ken Troc 1 KEN MT [id number] for 4 Days, #4 KEN 0 Refills Levofloxacin (Levofloxacin) 500 Mg Tab 500 MG PO Q48H for 28 Days, #14 TAB 0 Refills Metronidazole (Metronidazole) 500 Mg Tab 500 MG PO TID for 35 Days, #105 TAB 0 Refills Continued Medications: Aspirin (Aspirin Ec) 81 Mg Tab 81 MG PO DAILY Atorvastatin (Lipitor) 20 Mg Tab 40 MG PO DAILY, TAB Calcium Acetate (Phoslo 667 Mg) 667 Mg Cap 3 CAP PO WM, CAP Calcium Acetate (Phoslo 667 Mg) 667 Mg Cap 2 CAP PO WITH SNACKS Dicyclomine Hcl (Dicyclomine Hcl) 10 Mg Cap 1 MG PO QID PRN for CRAMPING Insulin Glargine (Lantus Solostar) 100 Unit/Ml Inj 10 UNITS SC QPM, PEN Isosorbide Mononitrate (Isosorbide Mononitrate ER) 30 Mg Tabcr 60 MG PO QAM Isosorbide Mononitrate Ext Rel (Imdur Ext Rel) 30 Mg Ertab 30 MG PO QAM, TAB Lorazepam (Ativan) 1 Mg Tab 0.5 MG PO DAILY PRN for Anxiety, TAB Methocarbamol (Methocarbamol) 500 Mg Tab 500 MG PO BID PRN for Muscle Spasms Metoprolol Tartrate (Lopressor) 25 Mg Tab 50 MG PO BID, TAB Pantoprazole (Protonix) 40 Mg Tab 40 MG PO DAILY, #30 TAB Sertraline HCl (Sertraline HCl) 50 Mg Tab 2 TAB PO DAILY for 30 Days, #60 TAB 5 Refills Tramadol (Ultram) 50 Mg Tab 1 TAB PO TID PRN for Pain for 30 Days, #90 TAB Discontinued Medications: Cephalexin Monohydrate (Keflex) 500 Mg Cap 500 MG PO BID, #15 CAP Ranitidine Hcl (Zantac) 150 Mg Tab 300 MG PO HS, TAB Admission Information HPI (per Admitting provider): This is a 50 yo F with complicated past medical hx of ESRD on HD , Type 2 DM , insulin dependent , hx of CAD s/p PTCA KAROLINE on Left Cx artery on 03/[address] Venegas , severe left carotid artery disease Hx of GI bleed , .presents with non healing left great toe diabetic infection pt has is to follow at Wound Care clinic next week , recently seen at PCP office -for worsening of redness, swelling and pain on left great toe started on PO Keflex , noted her left great toe started to have worsening of drainage had 2-3 episodes of diarrhea since yesterday no fever or chills in the ER left great toe appears to be gangrenous with redness,open wound , black eschar at end stool positive for C diff Physical Exam (per Admitting): General Appearance: no apparent distress Eyes: normal inspection ENT: hearing grossly normal Neck: supple Respiratory/Chest: lungs clear, normal breath sounds, no respiratory distress Cardiovascular: regular rate, rhythm Abdomen/GI: non tender, soft Extremities/Musculoskelatal: + pertinent finding (left great toe markedly erythematous with dusky red discoloartion , dark eschare at end , open wound on bottom with dranage , ) Hospital Course ORDERED: [facility]PE[facility]/S[facility] COMMENTS: Has Specimen Been Obtained/Collected? Y Procedure Result Verified Site GRAM STAIN Final 10/24/16-725 RESULT NO EPITHELIAL CELLS NO WBCs SEEN FEW GRAM POSITIVE COCCI SURFACE WOUND CULTURE Final 10/27/16-1000 Organism 1 COAG NEG STAPHYLOCOCCUS QUANITY MANY SENS NO SENSITIVITY TO FOLLOW +MIXWOUND PLUS MODERATE COUNTS OF PROBABLE SKIN NATHANIEL Organism 2 ACHROMOBACTER XYLOSOXIDANS QUANITY FEW SENS SENSITIVITY TO FOLLOW SENSITIVITY RESULT INDICATES A MULTIPLY - RESISTANT ORGANISM. PHONED TO EAST ([facility]ERR[facility] GRIM[facility]) ON 10/27/16 AT 0849 BY Didier Figueroa. Results were verbalized back to SENA. RESULTS WERE ALSO CALLED TO [facility] INFECTION CONTROL ANSWERING MACHINE ON 10/27/16 BY SENA. 2. ACHROMOBACTER XYLOSOXIDANS Target Route Dose RX AB Cost M.I.C. IQ ------ ----- ------ -- ------ -------- - ------ TRIMET/SULFA S <=2/38 CEFTAZIDIME R >16 CEFEPIME R >16 IMIPENEM S 2 AZTREONAM R >16 GENTAMICIN R >8 TOBRAMYCIN R >8 AMIKACIN R >32 CIPROFLOXACIN I 2 LEVOFLOXACIN S <=2 PIP/TAZO R >64 MRI of the left foot showed a marrow edema seen within the tuft of the 1st distal phalanx with mild drop in signal on the T1-weighted sequences. The appearance suggests osteomyelitis. Soft tissue edema and ulcerations are seen in the 1st toe. Left Great Toe Osteomyelitis: Clinically doing well. -Off IV Vancomycin & continue Levaquin (Day # 3). Needs for total 4 weeks. -ID following the patient & has recommended the antibiotic regimen. -Ortho consulted and no intervention at this time, continue monitor. -Dr. Myers from wound care was consulted -Continue daily dressing care -Wound culture growth coag negative staph C. Diff Colitis: Recently was on Keflex for left great toe infection & presented with Diarrhea which has improved. -Stool C diff toxin assay is positive -Continue PO Flagyl 500 mg TID (Day # 6). Continue as long patient is on Levaquin and even one week beyond that. -Continue lactobacillus. -Repeat C. Diff is negative. -KUB is negative Left Peroneal Artery Occlusion: U/S of LE showed distal left peroneal artery is occluded. -Vascular surgery was involved for evaluation -Patient has angiogram done and has with following finding Findings no large vessel stenosis, small vessel disease of the foot ESRD On Hemodialysis: HD on Tuesday/Tuesday /Tuesday -Nephrology following the patient. History Of Recurrent GI Bleed: last admission 10/05/16 with hematemesis. Stable so far. EGD on 10/07/16 : normal esophagus, stomach , duodenum , no evidence of bleed Pathology : Benign , with evidence of chronic gastritis Immunostain negative for H Pylori Type II Diabetes: On Insulin. Last Hba1c 7.1 was 10/05/16 -Continue basal Lantus 10 unit hs -Monitor BS and cover as per sliding scale. -Pharmacy consulted for glycemic management Chronic CHF Due to Systolic/Diastolic Dysfunction: Clinically stable & no evidence of decompensation or vol overload ECHO on 07/2017 : 1. Normal left ventricular size with low-normal systolic function. Estimated EF 50%. Hypokinesis of the inferolateral, mid inferior, base to mid septal wall. Akinesis of the inferior base. No left ventricular hypertrophy. Type 2 diastolic dysfunction. 2. The left atrium is mildly dilated. 3. There is mild mitral regurgitation. 4. Technically difficult study; IV echo-contrast may enhance image quality to better evaluate LV systolic function. 5. Compared to prior study on 09/22/2016, LV systolic function has declined. Anemia Of Chronic Disease: Stable. Monitoring H/H. History CAD S/P PTCA : s/p Bare metal stent on left Cx on 03/2016. Asymptomatic -Continue Aspirin, Imdur, Lopressor, statin Hypertension: BP stable -Continue Imdur, Lopressor Hyperlipidemia: Continue Lipitor 40 mg daily GERD: Stable.Continue PPI. HX OF Depression Disorder:Stable. -Continue Zoloft 100 mg PO Daily DVT Prophylaxis: Sq Heparin Code Status: FULL CODE Disposition: Discharge home later today. Follow up with PCP on 11/03/2016 @ 10.50 AM Follow up for outpatient dialysis on Tuesday, Tuesday & Tuesday. Follow up with Outpatient Wound Clinic as per their advice Total time spent on discharge = 45 minutes. This includes examination of the patient, discharge planning, medication reconciliation, and communication with other providers. Discharge Instructions Discharge Goals Goal(s): Decrease discomfort, Improve function, Increase independence, Improve disease control, Improve nutritional status, Learn about illness, Diagnostic testing, Therapeutic intervention Activity Recommendations Activity Limitations: resume your previous activity (As Tolerated.) Lifting Limitations: no more than 5 pounds Exercise/Sports Limitations: as tolerated May Resume Sexual Activity: when tolerated Shower/Bathe: no limitations (Keep the affected area of foot dry.) . Instructions / Follow-Up Instructions / Follow-Up 1. Use all the medications as directed. 2. Monitor your blood sugar regularly. Follow up with PCP on 11/03/2016 @ 10.50 AM Follow up for outpatient dialysis on Tuesday, Tuesday & Tuesday. Follow up with Outpatient Wound Clinic as per their advice Current Hospital Diet Patient's current hospital diet: Diabetes Type 2 Diet, Renal Diet Additional Copies To Tamy Becerra D.O., Kerim I., DO
--- NOTE | 2016-10-29 12:54 | Progress Note ---
Progress Note Date of Service: Oct 29, 2016. Subjective 50 yo f with multiple medical problems, s/p LLE angio without intervention d/t gangrene of L great toe, seen in f/u today. Pt states toe feeling ok presently , less pain than previously, although pulverizer tender. Denies any concerns regarding her R femoral puncture. Problem List Medical Problems: (1) Abdominal pain Status: Acute (2) Acute electrocardiogram changes Status: Acute (3) Elevated troponin Status: Acute (4) Elevated troponin Status: Acute (5) End stage renal disease Status: Acute (6) ESRD (end stage renal disease) on dialysis Status: Chronic (7) GI bleed Status: Acute (8) Hyperkalemia Status: Acute (9) Joint effusion Status: Acute (10) Left elbow pain Status: Acute (11) Left sided chest pain Status: Acute (12) Left sided chest pain Status: Acute (13) Limb ischemia Status: Acute (14) Medical non-compliance Status: Acute (15) Pneumonia Status: Acute (16) Pulmonary edema Status: Acute (17) Renal failure Status: Acute (18) Sinusitis Status: Acute (19) Substernal chest pain Status: Acute (20) Upper abdominal pain Status: Acute (21) Upper GI bleed Status: Acute (22) Urinary tract infection Status: Acute (23) Vomiting Status: Acute (24) Vomiting Status: Acute (25) Vomiting Status: Acute (26) Vomiting Status: Acute Objective Vital Signs Vital Signs Past 12 Hours Date Time Temp Pulse Resp B/P Pulse Ox O2 Delivery O2 Flow Rate FiO2 10/29/16 12:15 62 141/71 10/29/16 12:00 60 133/70 10/29/16 11:45 63 128/72 10/29/16 11:30 61 141/69 10/29/16 11:15 59 123/68 10/29/16 11:00 61 143/66 10/29/16 10:45 57 125/71 10/29/16 10:30 60 143/72 10/29/16 10:15 56 139/76 10/29/16 10:00 57 142/74 10/29/16 09:45 59 152/78 10/29/16 09:34 62 149/87 10/29/16 09:23 36.6 65 169/83 10/29/16 07:55 36.6 62 18 180/93 99 Room Air Exam CONST: A&O x4, AND, morbidly obese, chronically ill appearing female EXT: R groin puncture without erythema, edema, tenderness, ecchymosis, mass or discharge. LLE great toe with significantly less erythema. eschars appear dry , no odor. + cap refill to toes. Laboratory and Microbiology Results Past 24 Hours Test 10/28/16 16:18 10/28/16 19:59 10/29/16 05:36 10/29/16 07:16 Range/Units Bedside Glucose 111 146 106 70-90 mg/dl White Blood Count 8.15 4.8-10.8 K/uL Red Blood Count 3.46 4.2-5.4 M/uL Hemoglobin 10.6 12.0-16.0 g/dL Hematocrit 33.2 37-47 % Mean Corpuscular Volume 96.0 80-100 fL Mean Corpuscular Hemoglobin 30.6 25-34 pg Mean Corpuscular Hemoglobin Concent 31.9 32-36 g/dl RDW Standard Deviation 50.6 36.4-46.3 fL RDW Coefficient of Variation 14.6 11.5-14.5 % Platelet Count 358 130-400 K/uL Mean Platelet Volume 10.1 7.4-10.4 fL Sodium Level 138 136-145 mmol/L Potassium Level 4.0 3.5-5.1 mmol/L Chloride Level 100 98-107 mmol/L Carbon Dioxide Level 22 21-32 mmol/L Anion Gap 16.0 3-11 mmol/L Blood Urea Nitrogen 48 7-18 mg/dl Creatinine 8.90 0.60-1.20 mg/dl Est Creatinine Clear Calc Drug Dose 9.3 ml/min Estimated GFR () 5.5 Estimated GFR (Non- 4.7 BUN/Creatinine Ratio 5.5 10-20 Random Glucose 131 70-99 mg/dl Calcium Level 8.9 8.5-10.1 mg/dl Test 10/29/16 11:20 Range/Units Bedside Glucose 146 70-90 mg/dl Microbiology Results 10/29/16 C.difficile Toxin B Gene (PCR) - Final, Complete No C. difficile toxin B gene detected ASSESSMENT and PLAN: s/p LLE angio without intervention Severe PAD with gangrene LLE Pt noted to have significant small vessel disease not amenable to endovascular tx. Toe appears viable. Will reevaluate in office in 4 weeks for healing. Pt may follow with wound clinic in meantime for wound care.
[2016-10-29] MEDS: METOPROLOL TARTRATE 50 MG TAB PO SCH ×2 (13:32→20:59)
[2016-10-29] MEDS: ISOSORBIDE MONONITRATE 30 MG TABCR PO SCH (13:32)
[2016-10-29] MEDS: SERTRALINE HCL 100 MG TAB PO SCH (21:00)
[2016-10-29] MEDS: INSULIN GLARGINE SOLOSTAR 100 UNITS/ML 3 ML PEN SC SCH (21:04)
[2016-10-30] VITALS: O2SAT 94
[2016-10-30] MEDS: HEPARIN SOD 5000 UNIT/0.5 ML CARP SQ SCH (06:41)
[2016-10-30] MEDS: CLOTRIMAZOLE 10 MG TROCHE MT SCH ×2 (06:42→11:00)
[2016-10-30 07:10] VITALS: BP 134/75; PULSE 55; TEMP 36.9; O2SAT 96
--- NOTE | 2016-10-30 07:31 | Progress Note ---
Internal Med Progress Note Date of Service: Oct 30, 2016. Provider Documentation: SUBJECTIVE: Patient is sitting in the bed in no apparent distress, being dialyzed. Denies any new complaint. "My toe is getting better." Remains afebrile. No SOB. Still c/o having intermittent loose BMs. OBJECTIVE: Vital Signs-as noted below Examination: General- Alert/Awake and is in no acute distress Head- atraumatic Eyes- PERRL, EOMI ENT- ears, Nose & Throat are normal looking. Neck- Supple, Central trachea, No JVD. Lungs- B/L Clear to auscultation. Heart- Regular Rate/Rhythm, Normal S1,S2,. Abdomen- normal bowel sounds, soft Extremities-no calf tenderness, wound in the left great toe wrapped with clean dressing Neuro- alert, oriented x 3; PERRL, EOMI; no facial palsy; Skin- warm & dry Lab data as noted below. ASSESSMENT & PLAN: ORDERED: [facility] COMMENTS: Has Specimen Been Obtained/Collected? Y Procedure Result Verified Site GRAM STAIN Final 10/24/16-07 RESULT NO EPITHELIAL CELLS NO WBCs SEEN FEW GRAM POSITIVE COCCI SURFACE WOUND CULTURE Final 10/27/16-1000 Organism 1 COAG NEG STAPHYLOCOCCUS QUANITY MANY SENS NO SENSITIVITY TO FOLLOW +MIXWOUND PLUS MODERATE COUNTS OF PROBABLE SKIN NATHANIEL Organism 2 ACHROMOBACTER XYLOSOXIDANS QUANITY FEW SENS SENSITIVITY TO FOLLOW SENSITIVITY RESULT INDICATES A MULTIPLY - RESISTANT ORGANISM. PHONED TO 4-EAST ([facility]ERR[facility]IM[facility]) ON 10/27/16 AT 0849 BY Didier Figueroa. Results were verbalized back to SENA. RESULTS WERE ALSO CALLED TO [facility] INFECTION CONTROL ANSWERING MACHINE ON 10/27/16 BY SENA. 2. ACHROMOBACTER XYLOSOXIDANS Target Route Dose RX AB Cost M.I.C. IQ ------ ----- ------ -- ------ -------- - ------ TRIMET/SULFA S <=2/38 CEFTAZIDIME R >16 CEFEPIME R >16 IMIPENEM S 2 AZTREONAM R >16 GENTAMICIN R >8 TOBRAMYCIN R >8 AMIKACIN R >32 CIPROFLOXACIN I 2 LEVOFLOXACIN S <=2 PIP/TAZO R >64 MRI of the left foot showed a marrow edema seen within the tuft of the 1st distal phalanx with mild drop in signal on the T1-weighted sequences. The appearance suggests osteomyelitis. Soft tissue edema and ulcerations are seen in the 1st toe. Left Great Toe Osteomyelitis: Clinically doing well. -Off IV Vancomycin & continue Levaquin (Day # 3). Needs for total 4 weeks. -ID following the patient & has recommended the antibiotic regimen. -Ortho consulted and no intervention at this time, continue monitor. -Dr. Myers from wound care was consulted -Continue daily dressing care -Wound culture growth coag negative staph C. Diff Colitis: Recently was on Keflex for left great toe infection & presented with Diarrhea which has improved. -Stool C diff toxin assay is positive -Continue PO Flagyl 500 mg TID (Day # 6). Continue as long patient is on Levaquin and even one week beyond that. -Continue lactobacillus. -Repeat C. Diff is negative. -KUB is negative Left Peroneal Artery Occlusion: U/S of LE showed distal left peroneal artery is occluded. -Vascular surgery was involved for evaluation -Patient has angiogram done and has with following finding Findings no large vessel stenosis, small vessel disease of the foot ESRD On Hemodialysis: HD on Tuesday/Tuesday /Tuesday -Nephrology following the patient. History Of Recurrent GI Bleed: last admission 10/05/16 with hematemesis. Stable so far. EGD on 10/07/16 : normal esophagus, stomach , duodenum , no evidence of bleed Pathology : Benign , with evidence of chronic gastritis Immunostain negative for H Pylori Type II Diabetes: On Insulin. Last Hba1c 7.1 was 10/05/16 -Continue basal Lantus 10 unit hs -Monitor BS and cover as per sliding scale. -Pharmacy consulted for glycemic management Chronic CHF Due to Systolic/Diastolic Dysfunction: Clinically stable & no evidence of decompensation or vol overload ECHO on 07/2017 : 1. Normal left ventricular size with low-normal systolic function. Estimated EF 50%. Hypokinesis of the inferolateral, mid inferior, base to mid septal wall. Akinesis of the inferior base. No left ventricular hypertrophy. Type 2 diastolic dysfunction. 2. The left atrium is mildly dilated. 3. There is mild mitral regurgitation. 4. Technically difficult study; IV echo-contrast may enhance image quality to better evaluate LV systolic function. 5. Compared to prior study on 09/22/2016, LV systolic function has declined. Anemia Of Chronic Disease: Stable. Monitoring H/H. History CAD S/P PTCA : s/p Bare metal stent on left Cx on 03/2016. Asymptomatic -Continue Aspirin, Imdur, Lopressor, statin Hypertension: BP stable -Continue Imdur, Lopressor Hyperlipidemia: Continue Lipitor 40 mg daily GERD: Stable.Continue PPI. HX OF Depression Disorder:Stable. -Continue Zoloft 100 mg PO Daily DVT Prophylaxis: Sq Heparin Code Status: FULL CODE Disposition: Discharge home later today. Follow up with PCP on 11/03/2016 @ 10.50 AM Follow up for outpatient dialysis on Tuesday, Tuesday & Tuesday. Follow up with Outpatient Wound Clinic as per their advice Vital Signs: Date Time Temp Pulse Resp B/P Pulse Ox O2 Delivery O2 Flow Rate FiO2 10/30/16 07:10 36.9 55 18 134/75 96 Room Air 10/30/16 00:00 94 Room Air 10/29/16 23:22 37.1 60 18 134/77 94 Room Air 10/29/16 16:00 96 Room Air 10/29/16 14:48 36.7 66 18 160/90 96 10/29/16 13:51 Room Air 10/29/16 12:15 62 141/71 10/29/16 12:00 60 133/70 10/29/16 11:45 63 128/72 10/29/16 11:30 61 141/69 10/29/16 11:15 59 123/68 10/29/16 11:00 61 143/66 10/29/16 10:45 57 125/71 10/29/16 10:30 60 143/72 10/29/16 10:15 56 139/76 10/29/16 10:00 57 142/74 10/29/16 09:45 59 152/78 10/29/16 09:34 62 149/87 10/29/16 09:23 36.6 65 169/83 10/29/16 07:55 36.6 62 18 180/93 99 Room Air Lab Results: Results Past 24 Hours Test 10/29/16 11:20 10/29/16 16:21 10/29/16 20:19 Range/Units Bedside Glucose 146 100 144 70-90 mg/dl
[2016-10-30] MEDS: INSULIN ASPART 100 UNITS/ML 3 ML PEN SC SCH ×2 (08:33→12:47)
[2016-10-30] MEDS: LACTOBACILLUS ACIDOPHILUS (FLORANEX) TAB PO SCH ×2 (08:35→12:48)
[2016-10-30] MEDS: ISOSORBIDE MONONITRATE 30 MG TABCR PO SCH (08:36)
[2016-10-30] MEDS: ASPIRIN 81 MG ECTAB PO SCH (08:36)
[2016-10-30] MEDS: ATORVASTATIN 40 MG TAB PO SCH (08:36)
[2016-10-30] MEDS: METOPROLOL TARTRATE 50 MG TAB PO SCH (08:37)
[2016-10-30] MEDS: CALCIUM ACETATE 667MG GELCAP PO SCH ×2 (08:39→12:47)
[2016-10-30] MEDS: PANTOprazole SOD 40 MG TAB PO SCH (08:39)
[2016-10-30] MEDS: METRONIDAZOLE 500 MG TAB PO SCH (08:40)
[2016-10-30 12:21] VITALS: BP 134/75; PULSE 55; TEMP 36.9; O2SAT 96
[2016-12-13] MEDS ORDERED: LEVO1TAB34 PO (13:44)
[2017-01-18] MEDS ORDERED: LEVO1TAB33 PO (11:06)
[2017-02-09] MEDS ORDERED: DOXY-300 PO (11:08)
[2017-03-31] MEDS ORDERED: LPT/40 PO (09:13)
[2017-03-31] MEDS ORDERED: LORA5CHW10 PO (09:13)
[2017-03-31] MEDS ORDERED: SERT1TAB68 PO (09:13)
[2017-03-31] MEDS ORDERED: FLUT50SP45 (09:13)
[2017-03-31] MEDS ORDERED: DICY10CA12 PO (11:36)
[2017-03-31] MEDS ORDERED: PANT40TA PO (11:36)
[2017-03-31] MEDS ORDERED: TRMCR515 TOP (14:18)
[2017-03-31] MEDS ORDERED: METO50TA16 PO (14:18)
[2017-03-31] MEDS ORDERED: ASPI-435 PO (15:36)
[2017-03-31] MEDS ORDERED: INSDGIPEN SC (21:11)
[2017-04-28] MEDS ORDERED: TPRSR/50 PO (13:22)
== END 2016-10-30 14:55 | disposition home or self-care (01) | DRG 638 ==
LOC: ENRESERVDT → ENRESERVTM → C.EDB 10:47 → C.4E 14:59 → UNDOADMIN 14:59 → EDBEDREQ 15:24
PROVIDERS: ADMIT Hospitalist; ATTEND Emergency Medicine
PROC: B41GYZZ Fluoroscopy of Left Lower Extremity Arteries using Other Contrast (ICD-10-PCS; principal; 2016-10-27 13:00)
DX: E11.69 Type 2 diabetes mellitus with other specified complication (principal); M86.172 Other acute osteomyelitis, left ankle and foot; A04.7 Enterocolitis due to Clostridium difficile; I50.42 Chronic combined systolic (congestive) and diastolic (congestive) heart failure; I12.0 Hypertensive chronic kidney disease with stage 5 chronic kidney disease or end stage renal disease; E11.52 Type 2 diabetes mellitus with diabetic peripheral angiopathy with gangrene; Z68.41 Body mass index [BMI] 40.0-44.9, adult; N18.6 End stage renal disease; I74.3 Embolism and thrombosis of arteries of the lower extremities; D63.8 Anemia in other chronic diseases classified elsewhere; F32.9 Major depressive disorder, single episode, unspecified; B95.8 Unspecified staphylococcus as the cause of diseases classified elsewhere; E78.5 Hyperlipidemia, unspecified; K21.9 Gastro-esophageal reflux disease without esophagitis; I25.10 Atherosclerotic heart disease of native coronary artery without angina pectoris; I65.22 Occlusion and stenosis of left carotid artery; Z99.2 Dependence on renal dialysis; Z79.4 Long term (current) use of insulin; Z87.891 Personal history of nicotine dependence; Z98.61 Coronary angioplasty status; Z83.3 Family history of diabetes mellitus; Z82.49 Family history of ischemic heart disease and other diseases of the circulatory system; Z79.82 Long term (current) use of aspirin; N25.0 Renal osteodystrophy; I73.9 Peripheral vascular disease, unspecified; E66.01 Morbid (severe) obesity due to excess calories

== ENCOUNTER → 2016-12-16 | Outpatient (CLI) | payer OTHER ==
[~2016-12-16] MED LIST changes: +ASPI-435 PO; +ATV/1 PO; +CALC667C PO; +CALC667C4 PO; +CEPH500C2 PO; -CLOP1TAB5 PO; +DICY10CA12 PO; +DOXY-300 PO; +DOXY100C2 PO; +FLNIN/ NAE; +FLUT50SP45; +IMDSR30 PO; +INSDGIPEN SC; +ISOS30TA3 PO; +ISOS30TA35 PO; +ISOS60TA25 PO; +KFL500HP PO; +LACT1CAP6 PO; +LEVO1TAB33 PO; +LEVO1TAB34 PO; +LORA0.5T12 PO; +LORA5CHW10 PO; +LPT/40 PO; +LPT40 PO; +METO50TA16 PO; +MYC10 MT; +NVLG SQ; +ONDA4TAB46 PO; +OXYC-57 PO; +OXYC-643 PO; +OXYC1TAB3 PO; +PANT40TA PO; +PANT40TA2 PO; +PERCOCET PO; -RANI150T3 PO; +REGADENOSON 0.4 MG/5 ML SYR ONE; +SENN8.6T7 PO; +SERT1TAB68 PO; +TPRSR/50 PO; +TRMCR515 TOP; +ZLF/100 PO
--- NOTE | 2016-12-17 02:52 | MYOCARDIAL PERFUSION SCAN ---
PRIMARY CARE PHYSICIAN: Dr. Becerra. REASON FOR STUDY: Prior elevated troponin, history of coronary artery disease. STUDY TITLE: One-day nuclear medicine technetium-99m Cardiolite myocardial perfusion scan. EKG: Baseline EKG shows normal sinus rhythm at a ventricular rate of 73. She has inferior Q-waves, no significant ST abnormalities. Lexiscan stress EKG: Baseline heart rate of 78 noemí to 96, representing 56% of maximum predicted heart rate. There were no stress induced ST changes or arrhythmias. The patient had mild chest tightness with Lexiscan. TECHNIQUE: For the stress portion of the study 30.1 mCi of technetium-99m Cardiolite IV was injected at 11:35 a.m. on 12/16/2016. Thirty minutes following the injection, imaging of the heart was performed in multiple projections. For the rest portion of the study 11.0 mCi of technetium-99m Cardiolite was injected IV at 9:40 a.m. One hour following the injection, imaging of the heart was performed in the same projections. FINDINGS: Rotating raw images were reviewed in detail. There was mild vertical motion on the stress images. There was a large diffuse breast shadow on both stress and rest images. There was minimal liver and spine uptake near the inferior imaging borders of the heart. There was no significant extra cardiac pathologic uptake. The short axis, long axis, vertical long axis images were reviewed in detail. There was a severe fixed inferior perfusion defect from the base to apex with minimal surrounding reversible perfusion defects. No other significant signs of ischemia. There was significantly decreased scintigraphic counts in the inferior segments suggesting limited viability. There was normal LV size, EF was moderately to severely reduced with an EF of 31%. The inferior wall was akinetic, lateral wall was moderately hypokinesis. IMPRESSION: 1. Negative Lexiscan Cardiolite study for ischemia. 2. Fixed inferior perfusion defect consistent with large RCA/dominant circumflex infarct. 3. Normal LV size. Moderate to severe LV dysfunction, EF 31%, with inferior akinesis and lateral wall hypokinesis. 4. Nondiagnostic Lexiscan EKG due to inability to reach target heart rate. [facility]
== END | disposition home or self-care (01) ==
LOC: C.NUCL 07:11
PROVIDERS: ATTEND Internal Medicine Interventional Cardiology
DX: I21.3 ST elevation (STEMI) myocardial infarction of unspecified site (principal); I25.10 Atherosclerotic heart disease of native coronary artery without angina pectoris

== ENCOUNTER 2017-02-01 09:44 | Day surgery (SDC) | payer OTHER ==
[2017-01-18 09:13] VITALS: BMI 40.0
--- NOTE | 2017-01-18 09:59 | PAT Medication Instructions ---
Service Date January 18, 2017. Current Home Medication List Aspirin (Aspirin Ec), 81 MG PO QAM Atorvastatin (Lipitor), 40 MG PO QAM Calcium Acetate (Phoslo 667 Mg), 3 CAP PO WM Calcium Acetate (Phoslo 667 Mg), 2 CAP PO WITH SNACKS Dicyclomine Hcl (Dicyclomine Hcl), 1 MG PO QID PRN for CRAMPING Fluticasone Propionate (Nasal) (Allergy Nasal [place] 24 Ho), 1 SPRAY N/A DAILY Insulin Glargine (Lantus Solostar), 10 UNITS SC QPM Isosorbide Mononitrate (Isosorbide Mononitrate ER), 60 MG PO QAM Isosorbide Mononitrate Ext Rel (Imdur Ext Rel), 30 MG PO QAM Loratadine (Claritin Childrens), 2 TAB PO QPM Lorazepam (Ativan), 0.5 MG PO DAILY PRN for Anxiety Methocarbamol (Methocarbamol), 500 MG PO BID PRN for Muscle Spasms Metoprolol Tartrate (Lopressor), 25 MG PO BID Pantoprazole (Protonix), 40 MG PO QAM Sertraline Hcl (Zoloft), 100 MG PO HS Tramadol (Ultram), 1 TAB PO TID PRN for Pain Medication Instructions For Your Scheduled Surgery -Please check with your surgeon for instructions on the following: Aspirin (Aspirin Ec), 81 MG PO QAM - Hold the following medications the morning of surgery: Dicyclomine Hcl (Dicyclomine Hcl), 1 MG PO QID PRN for CRAMPING Calcium Acetate (Phoslo 667 Mg), 3 CAP PO WM Calcium Acetate (Phoslo 667 Mg), 2 CAP PO WITH SNACKS Methocarbamol (Methocarbamol), 500 MG PO BID PRN for Muscle Spasms - Take the following medications the morning of surgery with a sip of water OTHERWISE NOTHING TO EAT OR DRINK AFTER MIDNIGHT: Atorvastatin (Lipitor), 40 MG PO QAM Fluticasone Propionate (Nasal) (Allergy Nasal [place] 24 Ho), 1 SPRAY N/A DAILY Pantoprazole (Protonix), 40 MG PO QAM Lorazepam (Ativan), 0.5 MG PO DAILY PRN for Anxiety Tramadol (Ultram), 1 TAB PO TID PRN for Pain (may take if needed up to 4 hours prior to surgery) Isosorbide Mononitrate (Isosorbide Mononitrate ER), 60 MG PO QAM Isosorbide Mononitrate Ext Rel (Imdur Ext Rel), 30 MG PO QAM Metoprolol Tartrate (Lopressor), 25 MG PO BID - Take the following medications as scheduled the evening before surgery: Dicyclomine Hcl (Dicyclomine Hcl), 1 MG PO QID PRN for CRAMPING Insulin Glargine (Lantus Solostar), 10 UNITS SC QPM Sertraline Hcl (Zoloft), 100 MG PO HS Loratadine (Claritin Childrens), 2 TAB PO QPM Lorazepam (Ativan), 0.5 MG PO DAILY PRN for Anxiety Tramadol (Ultram), 1 TAB PO TID PRN for Pain Metoprolol Tartrate (Lopressor), 25 MG PO BID Calcium Acetate (Phoslo 667 Mg), 3 CAP PO WM Calcium Acetate (Phoslo 667 Mg), 2 CAP PO WITH SNACKS Methocarbamol (Methocarbamol), 500 MG PO BID PRN for Muscle Spasms If you have any questions please call us at [phone] or [phone] or [phone]
[2017-02-01] VITALS (9 sets, daily range): BP systolic 166–237; BP diastolic 74–131; PULSE 74–87; TEMP 36.2–36.6; O2SAT 95–99; Ht 167.6 cm; Wt 113.6 kg
[~2017-02-01] VITALS: Ht 167.6 cm; Wt 113.6 kg
[2017-02-01] MEDS: CEFAZOLIN 2000 MG/60 ML D5W IV SCH ×2 (06:00→14:36)
--- NOTE | 2017-02-01 06:05 | History and Physical ---
History & Physical Date of Service Feb 01, 2017. History & Physical Chief Complaint Malfunctioning left upper arm fistula History of Present Illness The patient is a 50 year old female with multiple medical problems, including HTN, DMII, ESRD on HD, carotid stenosis, CAD. She is having problems with her fistula at dialysis. She is admitted now for a fistulogram and possible intervention. Allergies Coded Allergies: Adhesives (Verified Allergy, Mild, RASH, SORES, 09/21/16) Pollen Extract (Unverified Allergy, Unknown, rash, 09/21/16) Home Medications Scheduled Aspirin (Aspirin Ec), 81 MG PO DAILY Atorvastatin (Lipitor), 40 MG PO DAILY Calcium Acetate (Phoslo 667 Mg), 3 CAP PO WM Calcium Acetate (Phoslo 667 Mg), 2 CAP PO WITH SNACKS Cephalexin Monohydrate (Keflex), 500 MG PO BID Insulin Glargine (Lantus Solostar), 10 UNITS SC QPM Isosorbide Mononitrate (Isosorbide Mononitrate ER), 60 MG PO QAM Isosorbide Mononitrate Ext Rel (Imdur Ext Rel), 30 MG PO QAM Metoprolol Tartrate (Lopressor), 50 MG PO BID Pantoprazole (Protonix), 40 MG PO DAILY Ranitidine Hcl (Zantac), 300 MG PO HS Sertraline HCl (Sertraline HCl), 2 TAB PO DAILY Scheduled PRN Dicyclomine Hcl (Dicyclomine Hcl), 1 MG PO QID PRN for CRAMPING Lorazepam (Ativan), 0.5 MG PO DAILY PRN for Anxiety Methocarbamol (Methocarbamol), 500 MG PO BID PRN for Muscle Spasms Tramadol (Ultram), 1 TAB PO TID PRN for Pain Problem List Medical Problems: (1) Allergic rhinitis (2) C. difficile colitis (3) CAD (coronary artery disease) (4) Carotid stenosis (5) Diabetic foot infection (6) DM type 2 (diabetes mellitus, type 2) (7) Dyslipidemia (8) ESRD (end stage renal disease) on dialysis (9) GERD (gastroesophageal reflux disease) (10) HTN (hypertension) (11) HX OF PAST NONCOMPLIANCE (12) Ischemic cardiomyopathy (13) Morbid obesity (14) Tobacco use disorder (15) UGIB (upper gastrointestinal bleed) Surgical Problems: (1) Hemodialysis access, AV graft Surgical / Medical History Hx Cardiac Surgery: Yes (ANGIOPLASTY/STENT) Hx Abdominal Surgery: No Hx Cancer Surgery: No Hx Thoracic Surgery: No Hx Orthopedic: No Hx Urinary Tract Surgery: No Past Medical/Surgical History: Diabetes, Heart Disease, Hypertension, Kidney Disease Family History Diabetes mellitus FATHER MOTHER Heart disease FATHER MOTHER Hypertension FATHER MOTHER Kidney disease GRANDMOTHER Social History Smoking Status: Former Smoker Hx Tobacco Use In Past Year?: No Hx Alcohol Use - Type & Amnt: No Hx Substance Use -Type & Amnt: No Review of Systems Constitutional: No chills, No malaise Skin: + change in color Eyes: No visual changes ENMT: No sore throat Respiratory: No cough, No [place], No hemoptysis, No short of breath Cardiovascular: No chest pain, No palpitations, No syncope, No edema, No intermittent claudication Gastrointestinal: No abdominal pain, No nausea, No vomiting Neurologic: No dizziness, No headache, No lethargy, No numbness, No tingling Physical Exam Constitutional: General Apperance: well-nourished, well-developed, obese (morbidly) Level of Distress: NAD, chronically ill Psychiatric: Mental Status: active & alert, normal mood, normal affect Orientation: oriented except where noted, to time, to place, to person Memory: recent memory normal, remote memory normal Head: normocephalic, atraumatic Eyes: EOM: EOMI ENMT: normal ENT inspection, hearing grossly normal Neck: supple, trachea midline Lungs: Respiratory effort: no dyspnea Auscultation: no wheezing, no rales/crackles, no rhonchi Cardiovascular: Apical Impulse: not displaced Heart Auscultation: RRR, no rubs, no gallops Peripheral Pulses: Pulses: full and equal, in all extremities except if noted Brachial Pulses: normal on the left, normal on the right Radial Pulse: decreased on the left, decreased on the right Femoral Pulse: normal on the right, decreased on the left Posterior Tibialis Pulse: doppler (Monophasic LLE and RLE) Dorsalis Pedis Pulse: decreased on the right, doppler (LLE monophasic) Abdomen: Inspection & Palpation: soft, non-distended, no tenderness, guarding & rebound Musculoskeletal: normal strength (5/5 throughout), normal tone Extremities: Upper Right: no cyanosis, no edema, no varicosities Upper Left: no cyanosis, no edema, no varicosities Lower Right: no cyanosis, no varicosities, no palpable cord, edema (trace) Lower Left: no cyanosis, no varicosities, no palpable cord, edema (trace) Neurologic: Cranial Nerves: grossly intact Sensation: grossly intact ASSESSMENT and PLAN: Malfunctioning av fistula left arm Plan: Patient is admitted for a fistulogram with possible intervention. I have discussed the risks options and benefits of the procedure with the patient. The patient understands the risks options and benefits and agrees to the procedure.
[~2017-02-01 09:44] MED LIST changes: -ASPI-435 PO; -ATOR-54 PO; -ATV/1 PO; -CALC667C PO; -CEPH500C2 PO; +D5W AND 1/4NSS 1000 ML IV SCH; -DICY10CA12 PO; -DOXY-300 PO; -DOXY100C2 PO; -FLNIN/ NAE; -FLUT50SP45; -IMDSR30 PO; -INSDGIPEN SC; -ISOS30TA3 PO; -ISOS30TA35 PO; -ISOS60TA25 PO; -KFL500HP PO; -LACT1CAP6 PO; -LEVO1TAB34 PO; -LORA0.5T12 PO; -LORA5CHW10 PO; -LPT/40 PO; -LPT40 PO; -METO50TA16 PO; -MYC10 MT; -NVLG SQ; -ONDA4TAB46 PO; -OXYC-57 PO; -OXYC-643 PO; -OXYC1TAB3 PO; -PANT40TA PO; -PANT40TA2 PO; -PERCOCET PO; -REGADENOSON 0.4 MG/5 ML SYR ONE; -SENN8.6T7 PO; -SERT1TAB68 PO; -TPRSR/50 PO; -TRMCR515 TOP; -ZLF/100 PO; -ZLF50 PO
[2017-02-01] MEDS ORDERED: LORAZEPAM 0.5 MG TAB ONE (13:37)
[2017-02-01] MEDS ORDERED: LORAZEPAM 0.5 MG TAB PO STA (13:38)
--- NOTE | 2017-02-01 13:56 | History & Physical Bridge Note ---
H&P Re-Evaluation Bridge Note: I have examined the patient, reviewed the History & Physical and in the interval since the performance of the History & Physical I have noted the following changes of clinical significance: No changes noted
--- NOTE | 2017-02-01 13:57 | Procedure Note ---
Pre-Mod Sedation Assessment General Date of Moderate Sedation: Feb 01, 2017. Vital Signs: Vital Signs Past 12 Hours Date Time Temp Pulse Resp B/P (MAP) Pulse Ox O2 Delivery O2 Flow Rate FiO2 02/01/17 12:10 36.6 18 195/100 96 Room Air 02/01/17 10:09 36.6 74 18 195/100 96 Room Air Pre-Sedation Airway Assessment Oral Cavity: Chipped Teeth Short Thick Neck: No Hx of Sleep Apnea: No Smoking Status: Former Smoker Mallampati Classification: Class I ASA Classification: Class III Notes The planned sedation has been discussed with the patient and consent obtained. I have identified the patient, determined the appropriateness of sedation and have assessed the patient immediately prior to the procedure. All medicine(s) and interventions are by my order.
[2017-02-01] MEDS ORDERED: MIDAZOLAM HCL 1 MG/ML 2ML VIAL ONE (14:11)
[2017-02-01] MEDS ORDERED: FENTANYL CITRATE INJ 50 MCG/1 ML 2 ML VIAL ONE (14:11)
[2017-02-01] MEDS ORDERED: MIDAZOLAM HCL 1 MG/ML 2ML VIAL IV ONE (14:46)
[2017-02-01] MEDS ORDERED: FENTANYL CITRATE INJ 50 MCG/1 ML 2 ML VIAL IV ONE (14:46)
[2017-02-01] MEDS ORDERED: LIDOCAINE HCL 1% 20 ML VIAL INJ ONE (14:51)
[2017-02-01] MEDS ORDERED: OPTIRAY 300 IV ONE (14:58)
[2017-02-01] MEDS ORDERED: HydrALAZINE HCL 20 MG/ML VIAL ONE (15:03)
[2017-02-01] MEDS ORDERED: HydrALAZINE HCL 20 MG/ML VIAL IV. ONE (15:04)
--- NOTE | 2017-02-01 15:05 | Procedure Note ---
Post-Moderate Sedation Plan General Date of Moderate Sedation Feb 01, 2017. Vital Signs: Vital Signs Past 12 Hours Date Time Temp Pulse Resp B/P (MAP) Pulse Ox O2 Delivery O2 Flow Rate FiO2 02/01/17 12:10 36.6 18 195/100 96 Room Air 02/01/17 10:09 36.6 74 18 195/100 96 Room Air Review - Discharge Plan Post Moderate Sedation Plan: On clinical assessment, the patient appears to have tolerated the conscious sedation without complications. Patient is recovering as anticipated. Patient will continue to be monitored by nursing and may be discharged when conscious sedation discharge criteria are met.
--- NOTE | 2017-02-01 15:06 | [facility] Post Operative Brief Note ---
Immediate Operative Summary Operative Date Feb 01, 2017. Pre-Operative Diagnosis Malfunctioning av fistula left arm Post-Operative Diagnosis Functioning Fistula Procedure(s) Performed Fistulogram Moderate Sedation [id number] Surgeon Karen Crisis Worker Surgeon(s) Isabel Malin Estimated Blood Loss 1 Findings no stenosis seen Specimens None Anesthesia Local with conscious sedation Complication(s) None Disposition
--- NOTE | 2017-02-01 15:07 | Discharge Instructions ---
Discharge Instructions Date of Service Feb 01, 2017. Visit Reason for Visit: End Stage Renal Disease, Malfunctioning Fistula Discharge Discharge Diagnosis / Problem: Malfunctioning fistula Discharge Goals Goal(s): Therapeutic intervention Activity Recommendations Activity Limitations: resume your previous activity Anesthesia . Post Anesthesia Instructions: If you have had General Anesthesia or IV Sedation: * Do not drive today. * Resume driving when surgeon permits. * Do not make important decisions or sign legal documents today. * Call surgeon for: 1. Temperature elevations greater than 101 degrees F. 2. Uncontrollable pain. 3. Excessive bleeding. 4. Persistent nausea and vomiting. 5. Medication intolerance (nausea, vomiting or rash). * For nausea and vomiting use only clear liquids such as: tea, soda, bouillon until nausea subsides, then gradually increase diet as tolerated. * If you have any concerns or questions, call your surgeon's office. If physician is unavailable and it is an emergency, call 911 or go to the nearest emergency room. . Instructions / Follow-Up Instructions / Follow-Up Call [phone] to schedule a follow up appointment if one not already scheduled. SPECIAL CARE INSTRUCTIONS: Medications: * Continue to take your medications as directed. If you have been given a prescription for Plavix, please fill it immediately and take as directed. Incision Care: * Your puncture site may have some bruising and minor swelling for about one week. * You will have a small dressing covering your puncture site. You may remove the dressing after 24 hours and shower. You may let the warm soapy water run over it, but be sure to dry the puncture site well and keep it dry. * DO NOT IMMERSE THE INCISION IN A TUB/POOL/etc. UNTIL HEALED. * Puncture sites should be kept covered with a band-aid until it begins to heal. Restrictions: * Depending on whether you leg or arm was punctured to access the arteries, you will be required to lay flat, hold your arm still, or both, for about 4 hours after the procedure to prevent bleeding. * Limit your activity for the first 48 hours. You may walk and go up and down steps. Avoid excessive bending or movement at the puncture site. Possible Complications: * Excessive Swelling - after blood flow is improved you may notice increased swelling in the lower legs. This is a normal response. This usually depends on the amount of blockages in the leg, how long they have been there prior to your procedure and how much blood flow was restored. Elevating your legs will help to improve this. Please notify our office ([phone] ) if the swelling does not go away after lying in bed overnight. * Infection/Drainage/Bleeding - Drainage or bleeding from the puncture site should be minimal. If you have excessive bleeding or drainage, call our office ([phone]) right away. * Pain - You may experience some mild pain or soreness at your puncture site. If your pain does not improve, please contact our office ([phone]). Call your doctor and seek emergent treatment if you develop: * Temperature above 101 degrees * Any fever or chills * Any redness or purulent drainage from the puncture site * Any new dusky/blue colored toes or feet with coolness or sharp or aching pain. SKIN IRRITATION: * You may experience some redness and/or swelling in the area where radiation was administered. If any skin irritation occurs, please contact your family physician. FOLLOW UP VISIT: Keep any scheduled doctor appointments. Diet Recommendations Recommended Home Diet: resume previous diet Procedures Procedures Performed: Fistulogram Moderate Sedation [id number] Pending Studies Studies pending at discharge: no Medical Emergencies . Who to Call and When: Medical Emergencies: If at any time you feel your situation is an emergency, please call 911 immediately. . Non-Emergent Contact Non-Emergency issues call your: Surgeon . . "Provider Documentation" section prepared by Andrea Jones. .
--- NOTE | 2017-02-01 15:44 | DIAGNOSTIC IMAGING REPORT ---
DATE OF PROCEDURE: 02/01/2017 PREOPERATIVE DIAGNOSIS: Difficulty accessing left arm brachial basilic arteriovenous fistula. POSTOPERATIVE DIAGNOSIS: Difficulty accessing left brachial basilic arteriovenous fistula. PROCEDURE: Left arm fistulogram. ATTENDING: Dr. Andrea Jones. ANTIQUE AUTOMOBILES REPAIRER: Dr. Isabel Malin. ANESTHESIA: Sedation plus local. ESTIMATED BLOOD LOSS: 1 mL. COMPLICATIONS: None. CONDITION: Stable. INDICATIONS: Mrs. Tamy Gilbert is a 51-year-old woman with history of hypertension, type 2 diabetes, end-stage renal disease on hemodialysis, carotid stenosis, coronary artery disease who was having difficulty with her left arm brachiobasilic AV fistula. Staff at the dialysis center is having difficulty accessing her fistula. For this reason, she was recommended to undergo a fistulogram. The risks, benefits and alternatives were discussed with patient and she consented to the procedure. PROCEDURE: The patient was taken to the [facility] and placed in the supine position. Her left upper arm was prepped and draped in the usual sterile fashion. A safety timeout was performed and the patient, procedure and side were correctly identified. The patient was given 1 mg of Versed and 50 mg of fentanyl for sedation. Two mL of local were injected overlying the fistula near the antecubital fossa. A micropuncture needle was used to access the AV fistula and a micropuncture wire placed through the access needle. Needle was exchanged for micropuncture sheath. The micropuncture sheath was connected to extension tubing and a fistulogram was obtained. This showed the basilic vein to be patent without any areas of stenosis. We then looked more centrally and she did not appear to have any central stenosis. Manual pressure was held over the basilic vein and other images obtained which showed the basilic artery to be patent. The anastomosis appeared patent without any areas of stenosis. There is no etiology identified for her difficulty with access during dialysis. Micropuncture sheath was removed and manual pressure was held over the access site for approximately 5 minutes with good hemostasis. The patient was transferred to PACU in stable condition. There were no immediate complications. Dr. Andrea Jones was present for the entire procedure. I, Dr. Jones was present and scrubed for the entire procedure. [facility]
[2017-02-09] MEDS ORDERED: DOXY-300 PO (11:08)
[2017-03-31] MEDS ORDERED: FLUT50SP45 (09:13)
[2017-03-31] MEDS ORDERED: LPT/40 PO (09:13)
[2017-03-31] MEDS ORDERED: SERT1TAB68 PO (09:13)
[2017-03-31] MEDS ORDERED: PANT40TA PO (11:36)
[2017-03-31] MEDS ORDERED: TRMCR515 TOP (14:18)
[2017-03-31] MEDS ORDERED: METO50TA16 PO (14:18)
[2017-03-31] MEDS ORDERED: ASPI-435 PO (15:36)
[2017-05-29] MEDS ORDERED: LORA5CHW10 PO (09:13)
[2017-05-29] MEDS ORDERED: DICY10CA12 PO (11:36)
[2017-05-29] MEDS ORDERED: TPRSR/50 PO (13:22)
[2017-05-29] MEDS ORDERED: ISOS60TA25 PO (20:12)
[2017-05-29] MEDS ORDERED: FLNIN/ NAE (20:12)
[2017-05-29] MEDS ORDERED: ISOS30TA35 PO (20:12)
[2017-05-29] MEDS ORDERED: OXYC-643 PO (20:12)
[2017-05-29] MEDS ORDERED: PANT40TA2 PO (20:12)
[2017-05-29] MEDS ORDERED: CALC667C PO (20:12)
[2017-05-29] MEDS ORDERED: ZLF/100 PO (20:12)
[2017-05-29] MEDS ORDERED: KFL500HP PO (20:12)
[2017-05-29] MEDS ORDERED: LPT40 PO (20:12)
[2017-05-29] MEDS ORDERED: LORA0.5T12 PO (20:12)
[2017-05-29] MEDS ORDERED: ASPI81TA28 PO (20:15)
[2017-05-29] MEDS ORDERED: INSDGIPEN SC (21:11)
[2017-05-30] MEDS ORDERED: CEPH500C2 PO (01:37)
[2017-05-30] MEDS ORDERED: CALC667C PO (01:45)
[2017-06-16] MEDS ORDERED: NVLG SQ (15:52)
[2017-06-16] MEDS ORDERED: SENN8.6T7 PO (15:52)
== END 2017-02-01 17:10 | disposition home or self-care (01) ==
LOC: C.ACU 09:44
PROVIDERS: ATTEND Surgery Vascular Surgery
DX: T82.898A Other specified complication of vascular prosthetic devices, implants and grafts, initial encounter (principal); E11.22 Type 2 diabetes mellitus with diabetic chronic kidney disease; I12.0 Hypertensive chronic kidney disease with stage 5 chronic kidney disease or end stage renal disease; N18.6 End stage renal disease; Z99.2 Dependence on renal dialysis; I25.10 Atherosclerotic heart disease of native coronary artery without angina pectoris; I65.29 Occlusion and stenosis of unspecified carotid artery; Z79.4 Long term (current) use of insulin; Z79.82 Long term (current) use of aspirin; Z79.899 Other long term (current) drug therapy; Y82.8 Other medical devices associated with adverse incidents

== ENCOUNTER → 2017-02-15 | Outpatient (CLI) | payer OTHER ==
[~2017-02-15] MED LIST changes: +ATV/1 PO; -D5W AND 1/4NSS 1000 ML IV SCH; +DICY10CA12 PO; +DOXY-300 PO; +FLUT50SP45; +IMDSR30 PO; +INSDGIPEN SC; +ISOS30TA3 PO; +LORA5CHW10 PO; +LPT/40 PO; +PANT40TA PO; +SERT1TAB68 PO
--- NOTE | 2017-02-16 06:39 | DIAGNOSTIC IMAGING REPORT ---
LEFT FIRST TOE RADIOGRAPHS CLINICAL HISTORY: LEFT 1ST TOE ULCER COMPARISON: Left first toe radiographs and MRI of the left first toe October 23, 2016. FINDINGS: There is subtle cortical irregularity with lucency of the distal tuft of the distal phalanx of the left first toe which is new since exam October 23, 2016 and corresponds to the area of signal abnormality on MRI of the left forefoot. There is extensive vascular calcification. IMPRESSION: Subtle cortical irregularity with erosion of the distal tuft of the distal phalanx of the left first toe which has developed since exam of October 23, 2016 and suggests osteomyelitis. Electronically signed by: Juan A Mcintosh M.D. 02/16/2017 6:38 AM Dictated Date/Time: 02/16/2017 6:35 AM
== END | disposition home or self-care (01) ==
LOC: C.RDSM 13:22
PROVIDERS: ATTEND Physical Medicine & Rehabilitation Sports Medicine
DX: E11.621 Type 2 diabetes mellitus with foot ulcer (principal)

== ENCOUNTER 2017-02-24 14:42 | Emergency (ER) | payer OTHER ==
[~2017-02-24] VITALS: Ht 167.6 cm; Wt 114.0 kg
[~2017-02-24 14:42] MED LIST changes: -ASPI-435 PO; -ATV/1 PO; -CALC667C PO; -CEPH500C2 PO; -DICY10CA12 PO; -DOXY100C2 PO; -FLNIN/ NAE; -FLUT50SP45; -IMDSR30 PO; -INSDGIPEN SC; -ISOS30TA3 PO; -ISOS30TA35 PO; -ISOS60TA25 PO; -KFL500HP PO; -LORA0.5T12 PO; -LORA5CHW10 PO; -LPT/40 PO; -LPT40 PO; -METO50TA16 PO; -OXYC-57 PO; -OXYC-643 PO; -OXYC1TAB3 PO; -PANT40TA PO; -PERCOCET PO; -PRT/40 PO; -SERT1TAB68 PO; -TPRSR/50 PO; -TRMCR515 TOP; -ZLF/100 PO
[2017-02-24 14:44] VITALS: TEMP 36.9; Ht 167.6 cm; Wt 114.0 kg
--- NOTE | 2017-02-24 15:28 | EMERGENCY ROOM VISIT NOTE ---
ED Visit Note First contact with patient: 14:54 CHIEF COMPLAINT: Right hip pain HISTORY OF PRESENT ILLNESS: This 51-year-old female presents the ER with chief complaint of right hip pain and low back pain. The patient states that her pain started when she was playing bingo on Tuesday and lean forward and she felt a pain in her right hip. She had an MRI of her toe and had to lay on a hard table which aggravated her symptoms. The patient states that she took Percocet to help her sleep after the initial onset of symptoms on Tuesday. The patient has chronic renal failure and cannot have NSAIDs. She also states that she has had bursitis in the past. She sees Dr. Escobar. The patient denies any loss of bowel or bladder control. The patient denies any pain radiating down the entire leg. REVIEW OF SYSTEMS: 6 system review was performed and was negative unless stated otherwise in history of present illness. PMH: See chronic problem list SOCIAL HISTORY: Patient lives alone PHYSICAL EXAM: Vital Signs were reviewed Reviewed Nurse's notes and agree. GENERAL: Obese 51-year-old white female appears in no acute distress. MENTAL STATUS: Alert and oriented 3. LUMBAR SPINE: No gross bony abnormality noted. Patient is nontender to palpation over the spinous processes. She is tender to palpation over the right lower paravertebral region, left side nontender. She has full range of motion of the lumbar spine with pain elicited with left rotation. . Muscle strength is 5 out of 5 bilateral lower extremities and symmetrical. Bilateral patellar and Achilles reflexes are 2+. Sensation is intact to pinprick bilateral lower extremities. RIGHT HIP: The patient has point tenderness over the greater trochanter. EMERGENCY DEPARTMENT COURSE: The patient was evaluated. The patient was offered an oxycodone while in the emergency room but she declined. She states that they normally put her to sleep but then 30 minutes therefore she would like to wait and take it later this evening. The patient was discharged home in stable condition. DIAGNOSIS: Right trochanteric bursitis DISCHARGE INSTRUCTIONS AND TREATMENT: Take oxycodone as needed for pain. Do not drive while taking the oxycodone. Follow-up with Dr. Escobar next Tuesday as previously scheduled. If your symptoms had now resolved by that appointment he may want to give you a steroid injection into the hip. Problem List Medical Problems: (1) Allergic rhinitis Status: Chronic (2) CAD (coronary artery disease) Permanent Comment: s/p PCI and BMS to left circumflex 03/2016 Status: Chronic (3) Carotid stenosis Permanent Comment: left ICA Status: Chronic (4) DM type 2 (diabetes mellitus, type 2) Status: Chronic (5) Dyslipidemia Status: Chronic (6) ESRD (end stage renal disease) on dialysis Status: Chronic (7) GERD (gastroesophageal reflux disease) Status: Chronic (8) HTN (hypertension) Status: Chronic (9) HX OF PAST NONCOMPLIANCE Status: Chronic (10) Ischemic cardiomyopathy Permanent Comment: echo 05/2016 - EF 40-45%, grade I diastolic dysfunction Status: Chronic (11) Morbid obesity Status: Chronic (12) Tobacco use disorder Status: Chronic Surgical Problems: (1) Hemodialysis access, AV graft Permanent Comment: [facility] Dr. Jones 08/25/12 Status: Chronic Current/Historical Medications Scheduled Aspirin (Aspirin Ec), 81 MG PO QAM Atorvastatin (Lipitor), 40 MG PO QAM Calcium Acetate (Phoslo 667 Mg), 3 CAP PO WM Calcium Acetate ([place]os[place] 667 Mg), 2 CAP PO WITH SNACKS Doxycycline (Monohydrate) (Doxycycline), 100 MG PO BIDM Fluticasone Propionate (Nasal) (Allergy Nasal [place] 24 Ho), 1 SPRAY N/A DAILY Insulin Glargine (Lantus Solostar), 10 UNITS SC QPM Isosorbide Mononitrate (Isosorbide Mononitrate ER), 60 MG PO QAM Isosorbide Mononitrate Ext Rel (Imdur Ext Rel), 30 MG PO QAM Levofloxacin (Levaquin), 500 MG PO Q2D Loratadine (Claritin Childrens), 2 TAB PO QPM Metoprolol Tartrate (Lopressor), 25 MG PO BID Pantoprazole (Protonix), 40 MG PO QAM Sertraline Hcl (Zoloft), 100 MG PO HS Scheduled PRN Dicyclomine Hcl (Dicyclomine Hcl), 1 MG PO QID PRN for CRAMPING Lorazepam (Ativan), 0.5 MG PO DAILY PRN for Anxiety Methocarbamol (Methocarbamol), 500 MG PO BID PRN for Muscle Spasms Tramadol (Ultram), 1 TAB PO TID PRN for Pain Allergies Coded Allergies: Adhesives (Verified Allergy, Mild, RASH, SORES, 5/30/17) NO KNOWN DRUG ALLERGIES (Verified Allergy, Mild, ., 01/18/17) Pollen Extract (Unverified Allergy, Unknown, rash, 01/18/17) Vital Signs Date Time Temp Pulse Resp B/P (MAP) Pulse Ox O2 Delivery O2 Flow Rate FiO2 02/24/17 14:44 36.9 85 16 158/92 98 Room Air Departure Information Referrals Tamy Becerra D.O. (PCP) Patient Instructions My [facility] [address]
[2017-02-24] MEDS ORDERED: OXYC1TAB3 PO (15:31)
[2017-02-24 15:36] VITALS: BP 148/81; PULSE 82; O2SAT 99
[2017-03-31] MEDS ORDERED: LPT/40 PO (09:13)
[2017-03-31] MEDS ORDERED: SERT1TAB68 PO (09:13)
[2017-03-31] MEDS ORDERED: FLUT50SP45 (09:13)
[2017-03-31] MEDS ORDERED: PANT40TA PO (11:36)
[2017-03-31] MEDS ORDERED: METO50TA16 PO (14:18)
[2017-03-31] MEDS ORDERED: TRMCR515 TOP (14:18)
[2017-03-31] MEDS ORDERED: ASPI-435 PO (15:36)
[2017-05-29] MEDS ORDERED: LORA5CHW10 PO (09:13)
[2017-05-29] MEDS ORDERED: DICY10CA12 PO (11:36)
[2017-05-29] MEDS ORDERED: TPRSR/50 PO (13:22)
[2017-05-29] MEDS ORDERED: OXYC-643 PO (20:12)
[2017-05-29] MEDS ORDERED: ISOS30TA35 PO (20:12)
[2017-05-29] MEDS ORDERED: KFL500HP PO (20:12)
[2017-05-29] MEDS ORDERED: ZLF/100 PO (20:12)
[2017-05-29] MEDS ORDERED: FLNIN/ NAE (20:12)
[2017-05-29] MEDS ORDERED: LPT40 PO (20:12)
[2017-05-29] MEDS ORDERED: PRT/40 PO (20:12)
[2017-05-29] MEDS ORDERED: LORA0.5T12 PO (20:12)
[2017-05-29] MEDS ORDERED: ISOS60TA25 PO (20:12)
[2017-05-29] MEDS ORDERED: CALC667C PO (20:12)
[2017-05-29] MEDS ORDERED: ASPI81TA28 PO (20:15)
[2017-05-29] MEDS ORDERED: INSDGIPEN SC (21:11)
[2017-05-30] MEDS ORDERED: CEPH500C2 PO (01:37)
[2017-05-30] MEDS ORDERED: CALC667C PO (01:45)
== END 2017-02-24 15:38 | disposition home or self-care (01) ==
LOC: C.EDB 14:43 → C.EDD 15:38
DX: M70.61 Trochanteric bursitis, right hip (principal); I25.10 Atherosclerotic heart disease of native coronary artery without angina pectoris; I12.0 Hypertensive chronic kidney disease with stage 5 chronic kidney disease or end stage renal disease; E11.22 Type 2 diabetes mellitus with diabetic chronic kidney disease; E78.5 Hyperlipidemia, unspecified; K21.9 Gastro-esophageal reflux disease without esophagitis; N18.6 End stage renal disease; E66.01 Morbid (severe) obesity due to excess calories; I25.5 Ischemic cardiomyopathy; Z72.0 Tobacco use; Z79.4 Long term (current) use of insulin; Z79.82 Long term (current) use of aspirin; Z79.899 Other long term (current) drug therapy; E11.621 Type 2 diabetes mellitus with foot ulcer

== ENCOUNTER → 2017-02-24 | Outpatient (CLI) | payer OTHER ==
[~2017-02-24] MED LIST changes: +ASPI-435 PO; +CALC667C PO; +CEPH500C2 PO; +DOXY100C2 PO; +FLNIN/ NAE; +ISOS30TA35 PO; +ISOS60TA25 PO; +KFL500HP PO; +LORA0.5T12 PO; +LPT40 PO; +METO50TA16 PO; +OXYC-57 PO; +OXYC-643 PO; +OXYC1TAB3 PO; +PERCOCET PO; +PRT/40 PO; +TPRSR/50 PO; +TRMCR515 TOP; +ZLF/100 PO
--- NOTE | 2017-02-24 14:45 | DIAGNOSTIC IMAGING REPORT ---
MRI OF THE LEFT FOREFOOT WITHOUT IV CONTRAST CLINICAL HISTORY: Left first toe wound. Diabetic foot ulcer. COMPARISON STUDY: Radiographs of the left first toe dated 02/15/2017. TECHNIQUE: MRI of the left forefoot is performed utilizing various T1 and T2-weighted sequences in the axial, sagittal, and coronal planes. IV contrast was not ministered for this examination. The examination is moderately degraded by motion artifact. FINDINGS: There is no marrow signal abnormality identified typical in appearance for osteomyelitis. Mild arthritic changes seen at the first metatarsophalangeal joint. There is subcutaneous soft tissue edema identified in the first toe, greatest along the plantar aspect at the level of the distal phalanx. This likely corresponds to patient's reported history of ulcer. No organized fluid collection is seen. The imaged musculature of the forefoot is normal in appearance. The visualized extensor and flexor tendons are unremarkable. IMPRESSION: 1. There is no marrow signal change identified in the left first toe to indicate osteomyelitis. 2. Findings suggest cellulitis and a cutaneous ulcer along the plantar aspect of the first toe. No organized fluid collection is seen to indicate abscess. Electronically signed by: Uriel Thomson M.D. 02/24/2017 2:44 PM Dictated Date/Time: 02/24/2017 2:32 PM
== END | disposition home or self-care (01) ==
LOC: C.MRI 13:21
PROVIDERS: ATTEND Physical Medicine & Rehabilitation Sports Medicine
DX: E11.621 Type 2 diabetes mellitus with foot ulcer (principal)

== ENCOUNTER 2017-03-31 19:34 | Inpatient (IN) | payer OTHER ==
[2017-03-22 13:51] VITALS: BMI 37.0
[~2017-03-31] VITALS: Ht 170.2 cm; Wt 108.6 kg
[~2017-03-31 19:34] MED LIST changes: +ASPI-435 PO; -ASPI81TA28 PO; -DOXY-300 PO; +FLUT50SP45; -LEVO1TAB33 PO; -LPR25 PO; +LPT/40 PO; +METO50TA16 PO; +PANT40TA PO; -RBX500 PO; +SERT1TAB68 PO; -TRAM-10 PO; +TRMCR515 TOP
[2017-03-31] MEDS ORDERED: PERCOCET PO (20:37)
--- NOTE | 2017-03-31 20:53 | EMERGENCY ROOM VISIT NOTE ---
History Report prepared by Aleksandra: Tyler Gutierrez Under the Supervision of: Dr. Dena Wilkes D.O. First contact with patient: 19:57 Chief Complaint: BACK PAIN Stated Complaint: NECK PAIN ACROSS BOTH SHOULDERS, LOWER BACK PAIN History of Present Illness The patient is a 51 year old female currently on dialysis stage 3 chronic kidney disease who presents to the Emergency Room with complaints of worsening back pain that started around 2 days ago. She says that she was on the beach at [facility] and was getting up from her hands and knees when she suddenly felt a twinge in her low back, making her fall to the side. The patient notes a history of low back pain, but now is having worsened pain over the right hip and right buttock, with intermittent shooting pains down her right leg. Since then, she has been having worsening back pain. The patient states that she is having sharp pains behind her neck and across both her shoulders, which intermittently shoots pain down to both her hands. She says that she cannot take a deep breath due to the pain. States intermittent chest pain also. Not specifically with exertion. Some tenderness with palpation of the chest. The patient adds that her legs feel wobbly and weak. She says that she has been having episodes where she breaks out in hot sweats and has dry heaves, but she thinks that is mostly due to anxiety. She denies any numbness, tingling, or incontinence. The patient also denies any trauma or injury. She has no back surgery history. Source of History: patient Onset: 2 days ago Position: back Timing: worsening Associated Symptoms: + diaphoresis, + neck pain, + weakness (in legs), No numbness (or tingling) Note: Associated symptoms: Worsened pain over right hip and right buttock, with intermittent shooting pains down right leg. Sharp pains across both shoulders, intermittently shooting pain down to both hands. Cannot take deep breath. Intermittent hot sweats and dry heaves. Denies incontinence. Review of Systems See HPI for pertinent positives & negatives. A total of 10 systems reviewed and were otherwise negative. Past Medical & Surgical Medical Problems: (1) Allergic rhinitis (2) C. difficile colitis (3) CAD (coronary artery disease) (4) Carotid stenosis (5) Diabetic foot infection (6) DM type 2 (diabetes mellitus, type 2) (7) Dyslipidemia (8) ESRD (end stage renal disease) on dialysis (9) GERD (gastroesophageal reflux disease) (10) HTN (hypertension) (11) HX OF PAST NONCOMPLIANCE (12) Ischemic cardiomyopathy (13) Morbid obesity (14) Osteomyelitis (15) Tobacco use disorder (16) UGIB (upper gastrointestinal bleed) Surgical Problems: (1) Hemodialysis access, AV graft Family History Diabetes mellitus FATHER MOTHER Heart disease FATHER MOTHER Hypertension FATHER MOTHER Kidney disease GRANDMOTHER Social History Smoking Status: Former Smoker Alcohol Use: none Drug Use: none Marital Status: Housing Status: lives with family Occupation Status: unemployed Current/Historical Medications Scheduled Aspirin (Aspirin 81), 1 TAB PO DAILY Atorvastatin (Lipitor), 40 MG PO QAM Calcium Acetate (Phoslo 667 Mg), 1 CAP PO TID Fluticasone Propionate (Nasal) (Allergy Nasal Sims 24 Ho), 1 SPRAY N/A DAILY Insulin Glargine (Lantus Solostar), 10 UNITS SC QPM Isosorbide Mononitrate (Isosorbide Mononitrate ER), 60 MG PO QAM Isosorbide Mononitrate Ext Rel (Imdur Ext Rel), 30 MG PO QAM Loratadine (Claritin Childrens), 2 TAB PO QPM Metoprolol Tartrate (Lopressor) (Lopressor), 1 TAB PO BID Pantoprazole (Protonix), 40 MG PO QAM Sertraline Hcl (Zoloft), 100 MG PO HS Triamcinolone Acet (Triamcinolone Acetonide), 1 APPLN TOP BID [Percocet], 1 TAB PO PRN Scheduled PRN Dicyclomine Hcl (Dicyclomine Hcl), 1 MG PO QID PRN for CRAMPING Lorazepam (Ativan), 0.5 MG PO DAILY PRN for Anxiety Allergies Coded Allergies: Adhesives (Verified Allergy, Mild, RASH, SORES, 01/18/17) NO KNOWN DRUG ALLERGIES (Verified Allergy, Mild, ., 01/18/17) Latex1 -Allergic Contact Dermititis (Verified Allergy, Unknown, rash, ) Pollen Extract (Verified Allergy, Unknown, rash, 03/22/17) Physical Exam Vital Signs Date Time Temp Pulse Resp B/P (MAP) Pulse Ox O2 Delivery O2 Flow Rate FiO2 04/01/17 00:10 64 20 156/95 92 Room Air 03/31/17 22:00 76 20 182/109 96 Room Air 03/31/17 19:47 36.9 99 16 186/96 98 Room Air Physical Exam GENERAL: very obese, alert, well appearing, well nourished, no distress, non- toxic EYE EXAM: normal conjunctiva, PERRL and EOM's grossly intact OROPHARYNX: no exudate, no erythema, lips, buccal mucosa, and tongue normal and mucous membranes are moist NECK: supple, no nuchal rigidity, no adenopathy, non-tender LUNGS: Clear to auscultation. Normal chest wall mechanics HEART: no murmurs, S1 normal and S2 normal ABDOMEN: abdomen soft, non-tender, normo-active bowel sounds, no masses, no rebound or guarding. BACK: Pain bilateral paraspinal musculature upper thoracic and mid thoracic, no midline tenderness, no stepoff. Pain bilateral low lumbar region, no pain with palpation over hips. Patient able to stand, pivot and get into wheelchair and into bed too, but complained of increased back pain with those movements SKIN: no rashes and no bruising UPPER EXTREMITIES: upper extremities are grossly normal. LOWER EXTREMITIES: No pitting edema. NEURO EXAM: Normal sensorium, cranial nerves II-XII grossly intact, normal speech, no gross weakness of arms, no gross weakness of legs.. Medical Decision & Procedures ER Provider Diagnostic Interpretation: CT:Per my review, radiologist interpretation. THORACIC SPINE WITHOUT CT DOSE: HISTORY: Pain pain TECHNIQUE: Multiaxial CT images of the thoracic spine were performed and reformatted in the sagittal and coronal plane without the use of contrast. A dose lowering technique was utilized adhering to the principles of ALARA. COMPARISON: None. FINDINGS: No fractures. No subluxation. Paraspinal soft tissues are unremarkable. Moderate degenerative disc change throughout the entire thoracic region. Mild degenerative change posterior elements. No major compromise of the spinal canal. No evidence for compression deformity. IMPRESSION: Mild/moderate degenerative disc change throughout the entire thoracic region. No acute process. No major compromise of the spinal canal. The above report was generated using voice recognition software. It may contain grammatical, syntax or spelling errors. Electronically signed by: Edmundo Lam M.D. 03/31/2017 9:40 PM Dictated Date/Time: 03/31/2017 9:39 PM LUMBAR SPINE WITHOUT CT DOSE: 3423.81 mGy.cm HISTORY: Pain pain TECHNIQUE: Multiaxial CT images of the lumbar spine were performed and reformatted in the sagittal and coronal plane without the use of contrast. A dose lowering technique was utilized adhering to the principles of ALARA. COMPARISON: None. FINDINGS: No fractures. No subluxation. Paraspinal soft tissues are unremarkable. Minimal degenerative disc change. IMPRESSION: Minimal degenerative change. No acute process. The above report was generated using voice recognition software. It may contain grammatical, syntax or spelling errors. Electronically signed by: Edmundo Lam M.D. 03/31/2017 9:47 PM Dictated Date/Time: 03/31/2017 9:46 PM CERVICAL SPINE W/O CT DOSE: HISTORY: Pain pain TECHNIQUE: Multiaxial CT images of the cervical spine were performed and reformatted in the sagittal and coronal plane without the use of contrast. A dose lowering technique was utilized adhering to the principles of ALARA. COMPARISON: None. FINDINGS: No fractures. No subluxation. Prevertebral soft tissues and the C1-C2 interval are intact. No pneumothorax. Considerable degenerative disc change C5-C6. Posterior osteophytic complex with mild/moderate multifactorial narrowing of the spinal canal. IMPRESSION: 1. No acute process. 2. Considerable degenerative change C5-C6 with mild/moderate multifactorial narrowing of the spinal canal. The above report was generated using voice recognition software. It may contain grammatical, syntax or spelling errors. Electronically signed by: Edmundo Lam M.D. 03/31/2017 9:38 PM Dictated Date/Time: 03/31/2017 9:37 PM Chest x-ray read by me: mild cardiomegaly, no effusion, mildly prominent interstitial markings, no jasmin pulmonary edema, no focal consolidation, no wide mediastinum Laboratory Results 03/31/17 21:00 Red Blood Count 3.41, Mean Corpuscular Volume 92.1, Mean Corpuscular Hemoglobin 30.2, Mean Corpuscular Hemoglobin Concent 32.8, Mean Platelet Volume 11.2, Neutrophils (%) (Auto) 77.2, Lymphocytes (%) (Auto) 14.6, Monocytes (%) (Auto) 7.2, Eosinophils (%) (Auto) 0.7, Basophils (%) (Auto) 0.1, Neutrophils # (Auto) 10.29, Lymphocytes # (Auto) 1.95, Monocytes # (Auto) 0.96, Eosinophils # (Auto) 0.10, Basophils # (Auto) 0.02 03/31/17 21:00 Test 03/31/17 21:00 White Blood Count 13.35 K/uL (4.8-10.8) Red Blood Count 3.41 M/uL (4.2-5.4) Hemoglobin 10.3 g/dL (12.0-16.0) Hematocrit 31.4 % (37-47) Mean Corpuscular Volume 92.1 fL (80-100) Mean Corpuscular Hemoglobin 30.2 pg (25-34) Mean Corpuscular Hemoglobin Concent 32.8 g/dl (32-36) Platelet Count 368 K/uL (130-400) Mean Platelet Volume 11.2 fL (7.4-10.4) Neutrophils (%) (Auto) 77.2 % Lymphocytes (%) (Auto) 14.6 % Monocytes (%) (Auto) 7.2 % Eosinophils (%) (Auto) 0.7 % Basophils (%) (Auto) 0.1 % Neutrophils # (Auto) 10.29 K/uL (1.4-6.5) Lymphocytes # (Auto) 1.95 K/uL (1.2-3.4) Monocytes # (Auto) 0.96 K/uL (0.11-0.59) Eosinophils # (Auto) 0.10 K/uL (0-0.5) Basophils # (Auto) 0.02 K/uL (0-0.2) RDW Standard Deviation 48.0 fL (36.4-46.3) RDW Coefficient of Variation 14.3 % (11.5-14.5) Immature Granulocyte % (Auto) 0.2 % Immature Granulocyte # (Auto) 0.03 K/uL (0.00-0.02) Anion Gap 21.0 mmol/L (3-11) Est Creatinine Clear Calc Drug Dose 5.9 ml/min Estimated GFR () 2.9 Estimated GFR (Non- 2.5 BUN/Creatinine Ratio 10.3 (10-20) Calcium Level 10.2 mg/dl (8.5-10.1) Total Bilirubin 0.4 mg/dl (0.2-1) Aspartate Amino Transf (AST/SGOT) 7 U/L (15-37) Alanine Aminotransferase (ALT/SGPT) 12 U/L (12-78) Alkaline Phosphatase 67 U/L (45-117) Troponin I 0.145 ng/ml (0-0.045) Total Protein 8.2 gm/dl (6.4-8.2) Albumin 2.8 gm/dl (3.4-5.0) Globulin 5.4 gm/dl (2.5-4.0) Albumin/Globulin Ratio 0.5 (0.9-2) Laboratory results per my review. Medications Administered Medications (Trade) Dose Ordered Sig/Bladimir Route Start Time Stop Time Status Last Admin Dose Admin Lidocaine (Lidoderm Patch 5%) 1 patch NOW STAT TD 03/31/17 22:16 03/31/17 22:18 DC 03/31/17 22:16 1 PATCH Fentanyl Citrate (Fentanyl Inj) 100 mcg NOW ONCE IV 03/31/17 22:30 03/31/17 22:31 DC 03/31/17 22:26 100 MCG Oxycodone/ Acetaminophen (Percocet 5-325mg Tab) 1 tab NOW STAT PO 03/31/17 23:26 03/31/17 23:27 DC 03/31/17 23:31 1 TAB Al Hydroxide/Mg Hydroxide (Maalox Susp) 15 ml NOW STAT PO 04/01/17 00:45 04/01/17 00:47 DC 04/01/17 00:45 15 ML Aspirin/Aluminum/ Magnesium/Ca Carb (Ascriptin Tab) 325 mg NOW STAT PO 04/01/17 00:46 04/01/17 00:47 DC 04/01/17 00:57 325 MG ECG Indication: other (back pain) Rate (beats per minute): 101 Rhythm: sinus tachycardia Findings: Q waves (lead 3), T-wave inversion (lead 3), no acute ischemic change , other (flattened T-wave in V2, normal axis, normal intervals) Comparison ECG Date: compared to March 22 2017, flattened T-wave is new ED Course 2031: The patient was evaluated in room C6. A complete history and physical exam was performed. 6: Ordered Lidoderm Patch 5% 1 patch TD. 2229: Ordered Fentanyl Inj 100 mcg IV. 2315: I reevaluated the patient and her back pain is better, but she is still having low back pain. She also notes some intermittent chest pain. 2326: Ordered Percocet 5-325mg Tab 1 tab PO. 0042: Patient still states intermittent chest pain although improved since Percocet. Chest x-ray with no other new or concerning findings given history and comorbidities. Pt with prior [place] and elevated trop although trop more likely related to CKD and elevated Creatinine. Back pain improved also. ASA ordered. 0137: Discussed with Dr. Robles for admission. Medical Decision Differential diagnosis: Etiologies such as musculoskeletal, disc herniation, fracture, aortic disease, metastatic disease, cord compression, discitis, infection, renal colic, gastrointestinal, acute exacerbation of chronic back pain, sciatica, cauda equina, as well as others were entertained. No evidence of trauma, likely musculoskeletal strain. Discussed f/u with pt. Doubt ACS, likely chest pain related to GI etiology or anxiety. Abn labs likely due to CKD. Doubt occult infectious etiology. Pt improved with pain meds here. Offered DC, pt concerned about pain. Asked hospitalist to admit as a precaution given hx of [place] and multiple risk factors. Doubt vascular etiology. Medication Reconcilliation Current Medication List: was personally reviewed by me Blood Pressure Screening Patient's blood pressure: Elevated blood pressure Blood pressure disposition: Referred to PCP Impression Primary Impression: Strain of lumbar region Additional Impressions: Musculoskeletal strain Chest pain Obesity Hypertension Chronic kidney disease (CKD) Morbid obesity Scribe Attestation The scribe's documentation has been prepared under my direction and personally reviewed by me in its entirety. I confirm that the note above accurately reflects all work, treatment, procedures, and medical decision making performed by me. Departure Information Dispostion Being Evaluated By Hospitalist Referrals Tamy Becerra D.O. (PCP) Patient Instructions My [facility] Problem Qualifiers Primary Impression: Strain of lumbar region Encounter type: initial encounter Qualified Codes: S39.012A - Strain of muscle, fascia and tendon of lower back, initial encounter Additional Impressions: Chest pain Chest pain type: unspecified Qualified Codes: R07.9 - Chest pain, unspecified Obesity Obesity type: due to excess calories Obesity classification: unspecified obesity classification Serious obesity comorbidity presence: with serious comorbidity Qualified Codes: E66.09 - Other obesity due to excess calories Hypertension Hypertension type: essential hypertension Qualified Codes: I10 - Essential ( primary) hypertension Chronic kidney disease (CKD) Chronic kidney disease stage: on chronic dialysis Qualified Codes: N18.6 - End stage renal disease; Z99.2 - Dependence on renal dialysis
[2017-03-31] MEDS ORDERED: ISOS30TA3 PO (21:11)
[2017-03-31] MEDS ORDERED: CALC667C4 PO (21:11)
[2017-03-31] MEDS ORDERED: ATV/1 PO (21:11)
[2017-03-31] MEDS ORDERED: IMDSR30 PO (21:11)
[2017-03-31 21:31] LABS: HEMATOCRIT 31.4 % (37-47); MEAN CELL VOLUME 92.1 fL (80-100); MEAN CORPUSCULAR HEMOGLOBIN 30.2 pg (25-34); MEAN CORPUSCULAR HGB CONC 32.8 g/dl (32-36); MEAN PLATELET VOLUME 11.2 fL (7.4-10.4); PLATELET COUNT 368 K/uL (130-400); RED BLOOD COUNT 3.41 M/uL (4.2-5.4); WHITE BLOOD COUNT 13.35 K/uL (4.8-10.8)
--- NOTE | 2017-03-31 21:44 | DIAGNOSTIC IMAGING REPORT ---
CERVICAL SPINE W/O CT DOSE: HISTORY: Pain pain TECHNIQUE: Multiaxial CT images of the cervical spine were performed and reformatted in the sagittal and coronal plane without the use of contrast. A dose lowering technique was utilized adhering to the principles of ALARA. COMPARISON: None. FINDINGS: No fractures. No subluxation. Prevertebral soft tissues and the C1-C2 interval are intact. No pneumothorax. Considerable degenerative disc change C5-C6. Posterior osteophytic complex with mild/moderate multifactorial narrowing of the spinal canal. IMPRESSION: 1. No acute process. 2. Considerable degenerative change C5-C6 with mild/moderate multifactorial narrowing of the spinal canal. The above report was generated using voice recognition software. It may contain grammatical, syntax or spelling errors. Electronically signed by: Edmundo Lam M.D. 03/31/2017 9:38 PM Dictated Date/Time: 03/31/2017 9:37 PM
--- NOTE | 2017-03-31 21:44 | DIAGNOSTIC IMAGING REPORT ---
THORACIC SPINE WITHOUT CT DOSE: HISTORY: Pain pain TECHNIQUE: Multiaxial CT images of the thoracic spine were performed and reformatted in the sagittal and coronal plane without the use of contrast. A dose lowering technique was utilized adhering to the principles of ALARA. COMPARISON: None. FINDINGS: No fractures. No subluxation. Paraspinal soft tissues are unremarkable. Moderate degenerative disc change throughout the entire thoracic region. Mild degenerative change posterior elements. No major compromise of the spinal canal. No evidence for compression deformity. IMPRESSION: Mild/moderate degenerative disc change throughout the entire thoracic region. No acute process. No major compromise of the spinal canal. The above report was generated using voice recognition software. It may contain grammatical, syntax or spelling errors. Electronically signed by: Edmundo Lam M.D. 03/31/2017 9:40 PM Dictated Date/Time: 03/31/2017 9:39 PM
[2017-03-31 21:48] LABS: ALB/GLOB RATIO 0.5 (0.9-2); BUN/CREATININE RATIO 10.3 (10-20); CALCIUM 10.2 mg/dl (8.5-10.1); POTASSIUM 5.2 mmol/L (3.5-5.1)
--- NOTE | 2017-03-31 21:48 | DIAGNOSTIC IMAGING REPORT ---
LUMBAR SPINE WITHOUT CT DOSE: 3423.81 mGy.cm HISTORY: Pain pain TECHNIQUE: Multiaxial CT images of the lumbar spine were performed and reformatted in the sagittal and coronal plane without the use of contrast. A dose lowering technique was utilized adhering to the principles of ALARA. COMPARISON: None. FINDINGS: No fractures. No subluxation. Paraspinal soft tissues are unremarkable. Minimal degenerative disc change. IMPRESSION: Minimal degenerative change. No acute process. The above report was generated using voice recognition software. It may contain grammatical, syntax or spelling errors. Electronically signed by: Edmundo Lam M.D. 03/31/2017 9:47 PM Dictated Date/Time: 03/31/2017 9:46 PM
[2017-03-31 21:56] LABS: BASO % 0.1 %; BASO ABS # 0.02 K/uL (0-0.2); COMPLETE YES; EOS % 0.7 %; IG% 0.2 %; LYMPH % 14.6 %; LYMPH ABS # 1.95 K/uL (1.2-3.4); MONO % 7.2 %; NEUT % 77.2 %
[2017-03-31] MEDS ORDERED: LIDODERM (LIDOCAINE) PATCH 5% TD STA (22:16)
[2017-03-31] MEDS ORDERED: FENTANYL CITRATE INJ 50 MCG/1 ML 2 ML VIAL IV ONE (22:30)
[2017-03-31] MEDS ORDERED: OXYCODONE/ACETAMINOPHEN 5-325 TAB PO STA (23:26)
[2017-04-01] VITALS (23 sets, daily range): BP systolic 105–192; BP diastolic 61–106; PULSE 71–101; TEMP 36.3–36.8; O2SAT 93–100; Ht 170.2 cm; Wt 108.6 kg
[2017-04-01] MEDS ORDERED: ALUMINUM/MAGNESIUM SUSP 30 ML UDC PO STA (00:45)
[2017-04-01] MEDS ORDERED: ASPIRIN/ALUM/MAGNES/CAL CARB 325 MG TAB PO STA (00:46)
[2017-04-01] MEDS ORDERED: NITROGLYCERIN 0.4 MG SL PER TAB CHARGE SL PRN (01:45)
[2017-04-01] MEDS ORDERED: ONDANSETRON INJ 2 MG/ML 2 ML VIAL IV PRN (01:45)
[2017-04-01] MEDS ORDERED: DICYCLOMINE HCL 10 MG CAP PO PRN (02:00)
[2017-04-01] MEDS ORDERED: LORAZEPAM 1 MG TAB PO PRN (02:00)
[2017-04-01] MEDS ORDERED: PERCOCET PO SCH (02:00)
[2017-04-01] MEDS ORDERED: GLUCAGON FOR INJ 1 MG VIAL SQ PRN (02:30)
[2017-04-01] MEDS ORDERED: GLUCOSE 40% GEL 15 GM TUBE PO PRN (02:30)
[2017-04-01] MEDS ORDERED: GLUCOSE 10 TABS/TUBE PO PRN (02:30)
[2017-04-01] MEDS ORDERED: DEXTROSE 50% 50 ML SYR IV PRN (02:30)
[2017-04-01] MEDS ORDERED: NURSING VERBAL MED ORDER ONE (03:45)
[2017-04-01] MEDS ORDERED: SODIUM CHLORIDE 0.65% NA SOLN 45 ML (OCEAN) PRN (04:30)
[2017-04-01] MEDS ORDERED: IV FLUIDS COMPLETED PRN (04:45)
--- NOTE | 2017-04-01 05:45 | HISTORY & PHYSICAL EXAMINATION ---
DATE OF ADMISSION: 04/01/2017 PRIMARY CARE PHYSICIAN: Dr. Becerra CHIEF COMPLAINT: Status post fall, followed by pain all over and also chest pain. HISTORY OF PRESENT COMPLAINT: She is a 51-year-old female with significant past medical history of end-stage renal disease, on hemodialysis, depression, diabetes with retinopathy, GERD, morbid obesity, hyperlipidemia, tobacco use disorder, hypertension and ischemic cardiomyopathy. Apparently, has had a minor fall. She slid down the bed and injured multiple areas, but none severely. She was brought into the Emergency Room and she has been complaining of pain all over and at the end, she also complained of pain in the center chest. She has had unremarkable labs, except troponin noted to be elevated at 0.1. From that point, she was advised to stay in the hospital to rule out possible ACS. She denies to have any recent shortness of breath, any palpitations. No abdominal pain, nausea or vomiting, but she does have pain in the left hip, shoulder and multiple areas of the body. No numbness or tingling in the extremities and no weakness involving any side of the body in particular. PAST MEDICAL HISTORY: Significant for end-stage renal disease, on hemodialysis, history of depression, diabetes mellitus with background retinopathy, GERD, morbid obesity, hyperlipidemia, hypertension, tobacco use disorder, status post placement of bare metal coronary stent with cardiomyopathy. PAST SURGICAL HISTORY: Dialysis catheter placement, flexible EGD in 2016 for gastritis and a stress echo in August of this year that came out to be unremarkable. FAMILY HISTORY: Both the parents have hypertension and heart disorder. SOCIAL HISTORY: She is a . She smoked 0.3 pack per day for one 1 year. She uses alcohol occasionally and her activity of daily living is limited to some extent due to obesity. REVIEW OF SYSTEMS: Other systems reviewed are unremarkable, except for those mentioned in the history of present complaint. ALLERGY: Allergic reaction to ADHESIVES, LATEX, POLLEN EXTRACT. MEDICATIONS: She has been on aspirin 81 mg daily, Lipitor 40 mg daily, calcium acetate, PhosLo 667 mg 1 tablet twice daily, dicyclomine 10 mg q.i.d. as needed, Flonase nasal spray 2 sprays per nostril daily, Lantus 10 units subQ at night, isosorbide mononitrate 30-mg tablet 2 tablets in the morning, isosorbide mononitrate 30 mg at night, tritan 5 mg 2 tablets daily, Ativan 1-mg tablet 0.5 mg daily as needed, metoprolol tartrate 50 mg 1 tablet b.i.d., pantoprazole 40 mg daily, Zoloft 100 mg daily, triamcinolone acetonide as directed and Percocet 1 tablet p.o. p.r.n. PHYSICAL EXAMINATION: GENERAL: On examination in the Emergency Room, she was not having any acute distress. VITAL SIGNS: Temperature 36.9, pulse 64, blood pressure 156/95, saturation 92% on room air. HEENT: Unremarkable. NECK: Supple. No JVD, no bruit. CHEST: Clear to auscultate bilaterally with decreased breath sounds both sides. HEART: S1, S2 regular. ABDOMEN: Soft, benign, nontender, no organomegaly. Bowel sounds present. EXTREMITIES: Trace edema bilaterally. MUSCULOSKELETAL SYSTEM: No acute arthritis in any joint. She does have moderate pain in the left shoulder and left hip area as well, but no bruising and/or hematoma. CENTRAL NERVOUS SYSTEM: She was alert, awake, oriented x3. LABORATORY DATA: Noted today, white count was 13.35, H&H 10.3/41.4, platelet was 368. Sodium 132, potassium 5.2, chloride 90, carbon dioxide 21, BUN 154 and creatinine 15. Random glucose 139, calcium 10.2, troponin 0.145, albumin 2.8. Her troponin remains elevated since September. It was very high on 06 of October, at that time it was 3. A chest x-ray did not show any CHF and/or infiltration. CT of the cervical spine, no acute process, mild degenerative changes in C5 and C6. Lumbar spine CT, no subluxation, paraspinal soft tissues are unremarkable, minimal degenerative changes, no other acute process. CT of the thoracic spine, mild degenerative changes but no fracture. EKG was in sinus rhythm, rate of 101 per minute, normal axis and no acute ST-T wave changes. IMPRESSION AND PLAN: 1. Status post fall with minor injuries involving multiple areas. We will continue with a small dose narcotic pain medication to control the pain. 2. Chest pain with mild elevation of troponin. She has chronic elevation of troponin, secondary to chronic kidney disease. She has anxiety and she wants to make sure that there is no heart attack. She will be admitted to telemetry unit for observation. Serial cardiac enzymes. She has had a negative dobutamine stress test in August 3. Diabetes type 2 with retinopathy. Continue with her current insulin dose and with sliding scale coverage. 4. Hypertension. Continue with antiepileptic medications. Blood pressure seems to be controlled. 5. Gastroesophageal reflux disease. Continue PPI. 6. Hyperlipidemia. Continue statin. 7. Chronic kidney disease, on hemodialysis. Her BUN and creatinine are extremely high. She supposed to have dialysis today. We will ask delivery coordinator for continuation of dialysis. 8. Code status: She will be full code. In my clinical judgment, the beneficiary meets criteria for CMS for 2 midnight stay in the hospital. [email or web address]
[2017-04-01] MEDS: HEPARIN SOD 5000 UNIT/0.5 ML CARP SQ SCH ×3 (06:12→22:00)
--- NOTE | 2017-04-01 06:51 | DIAGNOSTIC IMAGING REPORT ---
CHEST ONE VIEW PORTABLE CLINICAL HISTORY: Atypical chest pain COMPARISON STUDY: 117 FINDINGS: The heart is enlarged. There is stable mild prominence the main pulmonary artery segment. There is no focal pulmonary consolidation. There is no overt failure. There are no pleural effusions.[ IMPRESSION: Mild cardiomegaly. No evidence of focal pulmonary consolidation Electronically signed by: Daniel Saenz M.D. 04/01/2017 6:50 AM Dictated Date/Time: 04/01/2017 6:50 AM
[2017-04-01] MEDS: TRIAMCINOLONE ACET 0.5% CR 15 GM TUBE EXT SCH ×2 (07:13→19:59)
[2017-04-01] MEDS: CALCIUM ACETATE 667MG GELCAP PO SCH ×4 (07:14→17:00)
[2017-04-01] MEDS: ISOSORBIDE MONONITRATE 30 MG TABCR PO SCH ×2 (07:14→15:22)
[2017-04-01] MEDS: METOPROLOL TARTRATE 50 MG TAB PO SCH ×3 (07:14→20:00)
[2017-04-01] MEDS: PANTOprazole SOD 40 MG TAB PO SCH ×2 (07:14→15:22)
[2017-04-01] MEDS: FLUTICASONE PROPIONATE NA SPR 16 GM BTL SCH (07:15)
[2017-04-01] MEDS: ATORVASTATIN 20 MG TAB PO SCH ×2 (07:15→15:22)
--- NOTE | 2017-04-01 07:41 | NEPHROLOGY CONSULTATION ---
DATE OF CONSULTATION: 04/01/2017 DATE OF CONSULTATION: 04/01/2017 TIME: 6:43 a.m. ATTENDING OF RECORD: Dr. Robles. REASON FOR CONSULTATION: End-stage renal disease. HISTORY OF PRESENT ILLNESS: This is a 51-year-old female who dialyzes at the [facility] on Mondays, Wednesdays, and Fridays. The patient has been more compliant with coming to dialysis; however, is supposed to be taking many medications and takes no medications whatsoever at home. Patient has also missed dialysis tuesday and tuesday with last dialysis treatment a week ago. The patient is scheduled for carotid surgery and so has an appointment with her primary care doctor coming up next week and states that she is going to be getting all of her meds refilled at that appointment so that she can start taking them again. The patient fell out of bed. She describes it as flopped out of bed and then had significant hip pain and neck pain, diffuse pain throughout. The patient was admitted under observation for evaluation of chest pain with elevation in troponin. The patient is comfortable this morning; however continues to have significant pain throughout her body. PAST MEDICAL HISTORY: End-stage renal disease on hemodialysis Mondays, Wednesdays, and Fridays, diabetes, hypertension, hyperlipidemia, coronary artery disease with history of stent placements, GERD, obesity. PAST SURGICAL HISTORY: Fistula placement, cath placement. FAMILY HISTORY: Significant for hypertension. SOCIAL HISTORY: Remote history of tobacco, occasional alcohol, no drugs. REVIEW OF SYSTEMS: Positive fatigue. Positive poor vision. Positive shortness of breath with exertion. No more chest pain; however continues to have diffuse hip pain. No nausea, vomiting. No itching. No diarrhea or constipation. No dysuria. All other review of systems otherwise negative. CURRENT MEDICATIONS: Aspirin 81 mg a day, Lantus 10 units subQ at night, Zoloft 100 mg at night, Claritin 10 mg at night, Lipitor 40 mg in the morning, Lopressor 50 mg p.o. b.i.d., Protonix 40 mg daily, PhosLo 1 p.o. t.i.d. with meals, Imdur 90 mg daily, heparin 5000 units subQ q. 8. PHYSICAL EXAMINATION: VITAL SIGNS: Temperature 36.7, pulse 95, respiratory rate 18, blood pressure is 163/95. Satting 94% on room air. GENERAL: Awake, alert, oriented x3. EYES: No scleral icterus. The patient is morbidly obese. NECK: Supple. PULMONARY: Clear to auscultation. CARDIAC: Regular rate and rhythm. ABDOMEN: Bowel sounds positive, soft, nontender. EXTREMITIES: No significant clubbing, cyanosis or edema. NEUROLOGICALLY: Nonfocal although limited mobility secondary to diffuse arthralgias. LABORATORIES: Sodium was 132, potassium 5.2, chloride is 90, bicarb is 21, BUN is 154, creatinine is 15, glucose 139, calcium is 10.2, troponin 0.145. Albumin 2.8. White count is 13, H&H 10 and 31, platelet count is 368. IMPRESSION AND PLAN: 1. End-stage renal disease. Will dialyze today 4 hour treatment, 3 liter UF as blood pressure tolerates and 2K bath to help optimize clearance. 2. Anemia of renal failure. Goal hemoglobin is 10-11. Will continue Procrit while here in the hospital. 3. Renal osteodystrophy. The patient does not take any medications whatsoever for any of her medical problems at home including phosphate binders, antihypertensives, diabetic medications. The only thing the patient actually does to help take care of herself is come to dialysis. However she missed the last week of dialysis. The patient with an overall poor prognosis long-term. Does have significant carotid stenosis and is scheduled for an outpatient carotid surgery. The patient is nervous and scared about having the procedure done and is thinking she should start taking her medications. The patient does have an appointment with her family doctor this upcoming week to get her medications refilled. Will have to monitor closely since patient is not used to taking any of the medications that were recently restarted while here in the hospital so hopefully she tolerates all of the medications well since relatively new. Appreciate consultation. BALTAZAR
[2017-04-01] MEDS: OXYCODONE/ACETAMINOPHEN 5-325 TAB PO PRN ×3 (07:52→23:42)
[2017-04-01] MEDS ORDERED: EPOETIN ALFA 10,000 UNITS/ML VIAL IV. ONE (08:00)
[2017-04-01 08:26] LABS: CKMB/CK RATIO 8.2 (0-3.0)
[2017-04-01] MEDS ORDERED: ISOSORBIDE MONONITRATE 30 MG TABCR PO SCH ×2 (09:00)
[2017-04-01 10:52] LABS: URINE APPEARANCE CLEAR (CLEAR); URINE BILIRUBIN NEG (NEG); URINE COLOR YELLOW; URINE EPITHELIAL CELL AUTO >30 /lpf (0-5); URINE NITRITE NEG (NEG); URINE SPECIFIC GRAVITY 1.017 (1.000-1.030); UROBILINOGEN NEG (NEG); ZZUR CULT IF INDIC CLEAN CATCH YES
[2017-04-01 11:00] LABS: MANUAL MICROSCOPIC REQUIRED? NO; REVIEW REQ? NO
[2017-04-01 15:23] LABS: CKMB/CK RATIO 9.3 (0-3.0)
--- NOTE | 2017-04-01 15:35 | Progress Note ---
Medicine Progress Note Date & Time of Visit: Apr 01, 2017 at 15:17. Subjective 51 yo F s/p fall in [place] three days ago (was on hands and knees on the beach and tipped over on her side) -tolerating PO -Percocet controlling her pain -HD today -CP intermittent, not present now and only when she coughs or sneezes hard -denies SOB Objective Last 8 Hrs Date Time Temp Pulse Resp B/P (MAP) Pulse Ox O2 Delivery O2 Flow Rate FiO2 04/01/17 14:15 71 105/61 04/01/17 14:00 71 111/65 04/01/17 13:45 71 125/69 04/01/17 13:30 74 136/76 04/01/17 13:15 75 150/85 04/01/17 13:00 75 155/84 04/01/17 12:45 77 136/79 04/01/17 12:30 80 157/92 04/01/17 12:15 82 141/83 04/01/17 12:00 83 147/87 04/01/17 12:00 Room Air 04/01/17 11:45 86 157/81 04/01/17 11:30 101 152/93 04/01/17 11:30 36.5 91 18 170/91 (117) 98 Room Air 04/01/17 11:15 92 151/104 04/01/17 11:00 91 182/98 04/01/17 10:45 94 183/105 04/01/17 10:31 90 189/105 04/01/17 10:22 36.5 96 192/106 (134) 04/01/17 08:00 Room Air Physical Exam: GEN: morbid obesity, in no acute distress, alert and appropriate, receiving HD HEENT: NC/AT, pupils equal and reactive bilaterally, normal sclerae, MMM CARDIO: reg rate, S1/2 heard without m/g/r LUNGS: CTA bilaterally, no crackles, rales or wheezes, good diaphragmatic excursion ABD: soft, non-tender, non-distended, no rebound or guarding, +BS EXTREMITY: RP and DP palpable 2+ bilat, no LE swelling or edema, extremities are warm and well-perfused NEURO: CN 2-12 grossly intact, no gross focal deficits MUSC: 5/5 strength throughout, moves all extremities equally, limited exam as patient cannot move much while hooked up to HD machine. SKIN: warm and dry Laboratory Results: 03/31/17 21:00 Red Blood Count 3.41, Mean Corpuscular Volume 92.1, Mean Corpuscular Hemoglobin 30.2, Mean Corpuscular Hemoglobin Concent 32.8, Mean Platelet Volume 11.2, Neutrophils (%) (Auto) 77.2, Lymphocytes (%) (Auto) 14.6, Monocytes (%) (Auto) 7.2, Eosinophils (%) (Auto) 0.7, Basophils (%) (Auto) 0.1, Neutrophils # (Auto) 10.29, Lymphocytes # (Auto) 1.95, Monocytes # (Auto) 0.96, Eosinophils # (Auto) 0.10, Basophils # (Auto) 0.02 03/31/17 21:00 Test 03/31/17 21:00 04/01/17 10:25 04/01/17 14:19 04/01/17 15:02 White Blood Count 13.35 K/uL (4.8-10.8) Red Blood Count 3.41 M/uL (4.2-5.4) Hemoglobin 10.3 g/dL (12.0-16.0) Hematocrit 31.4 % (37-47) Mean Corpuscular Volume 92.1 fL (80-100) Mean Corpuscular Hemoglobin 30.2 pg (25-34) Mean Corpuscular Hemoglobin Concent 32.8 g/dl (32-36) Platelet Count 368 K/uL (130-400) Mean Platelet Volume 11.2 fL (7.4-10.4) Neutrophils (%) (Auto) 77.2 % Lymphocytes (%) (Auto) 14.6 % Monocytes (%) (Auto) 7.2 % Eosinophils (%) (Auto) 0.7 % Basophils (%) (Auto) 0.1 % Neutrophils # (Auto) 10.29 K/uL (1.4-6.5) Lymphocytes # (Auto) 1.95 K/uL (1.2-3.4) Monocytes # (Auto) 0.96 K/uL (0.11-0.59) Eosinophils # (Auto) 0.10 K/uL (0-0.5) Basophils # (Auto) 0.02 K/uL (0-0.2) RDW Standard Deviation 48.0 fL (36.4-46.3) RDW Coefficient of Variation 14.3 % (11.5-14.5) Immature Granulocyte % (Auto) 0.2 % Immature Granulocyte # (Auto) 0.03 K/uL (0.00-0.02) Anion Gap 21.0 mmol/L (3-11) Est Creatinine Clear Calc Drug Dose 5.9 ml/min Estimated GFR () 2.9 Estimated GFR (Non- 2.5 BUN/Creatinine Ratio 10.3 (10-20) Calcium Level 10.2 mg/dl (8.5-10.1) Total Bilirubin 0.4 mg/dl (0.2-1) Aspartate Amino Transf (AST/SGOT) 7 U/L (15-37) Alanine Aminotransferase (ALT/SGPT) 12 U/L (12-78) Alkaline Phosphatase 67 U/L (45-117) Total Protein 8.2 gm/dl (6.4-8.2) Albumin 2.8 gm/dl (3.4-5.0) Globulin 5.4 gm/dl (2.5-4.0) Albumin/Globulin Ratio 0.5 (0.9-2) Urine Color YELLOW Urine Appearance CLEAR (CLEAR) Urine pH 7.0 (4.5-7.5) Urine Specific [address] 1.017 (1.000-1.030) Urine Protein 3+ (NEG) Urine Glucose (UA) 1+ (NEG) Urine Ketones NEG (NEG) Urine Occult Blood TRACE (NEG) Urine Nitrite NEG (NEG) Urine Bilirubin NEG (NEG) Urine Urobilinogen NEG (NEG) Urine Leukocyte Esterase SMALL (NEG) Urine WBC (Auto) 10-30 /hpf (0-5) Urine RBC (Auto) 0-4 /hpf (0-4) Urine Hyaline Casts (Auto) 1-5 /lpf (0-5) Urine Epithelial Cells (Auto) >30 /lpf (0-5) Urine Bacteria (Auto) 1+ (NEG) Total Creatine Kinase 41 U/L (26-192) Creatine Kinase MB 3.8 ng/ml (0.5-3.6) Creatine Kinase MB Ratio 9.3 (0-3.0) Troponin I 0.125 ng/ml (0-0.045) Bedside Glucose 82 mg/dl (70-90) Date/Time Source Procedure Growth Status 04/01/17 10:25 Urine , Clean Catch Urine Culture Pending Received Last 24 Hours Test 03/31/17 21:00 04/01/17 06:35 04/01/17 07:46 04/01/17 10:25 White Blood Count 13.35 K/uL Red Blood Count 3.41 M/uL Hemoglobin 10.3 g/dL Hematocrit 31.4 % Mean Corpuscular Volume 92.1 fL Mean Corpuscular Hemoglobin 30.2 pg Mean Corpuscular Hemoglobin Concent 32.8 g/dl Platelet Count 368 K/uL Mean Platelet Volume 11.2 fL Neutrophils (%) (Auto) 77.2 % Lymphocytes (%) (Auto) 14.6 % Monocytes (%) (Auto) 7.2 % Eosinophils (%) (Auto) 0.7 % Basophils (%) (Auto) 0.1 % Neutrophils # (Auto) 10.29 K/uL Lymphocytes # (Auto) 1.95 K/uL Monocytes # (Auto) 0.96 K/uL Eosinophils # (Auto) 0.10 K/uL Basophils # (Auto) 0.02 K/uL RDW Standard Deviation 48.0 fL RDW Coefficient of Variation 14.3 % Immature Granulocyte % (Auto) 0.2 % Immature Granulocyte # (Auto) 0.03 K/uL Sodium Level 132 mmol/L Potassium Level 5.2 mmol/L Chloride Level 90 mmol/L Carbon Dioxide Level 21 mmol/L Anion Gap 21.0 mmol/L Blood Urea Nitrogen 154 mg/dl Creatinine 15.00 mg/dl Est Creatinine Clear Calc Drug Dose 5.9 ml/min Estimated GFR () 2.9 Estimated GFR (Non- 2.5 BUN/Creatinine Ratio 10.3 Random Glucose 139 mg/dl Calcium Level 10.2 mg/dl Total Bilirubin 0.4 mg/dl Aspartate Amino Transf (AST/SGOT) 7 U/L Alanine Aminotransferase (ALT/SGPT) 12 U/L Alkaline Phosphatase 67 U/L Troponin I 0.145 ng/ml 0.122 ng/ml Total Protein 8.2 gm/dl Albumin 2.8 gm/dl Globulin 5.4 gm/dl Albumin/Globulin Ratio 0.5 Bedside Glucose 149 mg/dl Total Creatine Kinase 44 U/L Creatine Kinase MB 3.6 ng/ml Creatine Kinase MB Ratio 8.2 Urine Color YELLOW Urine Appearance CLEAR Urine pH 7.[address] Urine Protein 3+ Urine Glucose (UA) 1+ Urine Ketones NEG Urine Occult Blood TRACE Urine Nitrite NEG Urine Bilirubin NEG Urine Urobilinogen NEG Urine Leukocyte Esterase SMALL Urine WBC (Auto) 10-30 /hpf Urine RBC (Auto) 0-4 /hpf Urine Hyaline Casts (Auto) 1-5 /lpf Urine Epithelial Cells (Auto) >30 /lpf Urine Bacteria (Auto) 1+ Test 04/01/17 11:08 04/01/17 13:42 04/01/17 14:19 04/01/17 15:02 Bedside Glucose 107 mg/dl 82 mg/dl Creatine Kinase MB Ratio Date/Time Source Procedure Growth Status 04/01/17 10:25 Urine , Clean Catch Urine Culture Pending Received Assessment & Plan 51 yo F s/p fall in [place] three days ago (was on hands [place] knees on the beach and tipped over on her side) 1. ESRD-noncompliant with HD for the past week. HD performed today. Per Nephro OK to go home after HD complete. 2. Muscle pain-pt with recent h/o long car ride to and from [facility]. She got back into town 2 days ago. While down at the beach she was on her hands and knees and tipped over onto her side. She waited a few days and then presented complaining of weakness and severe pain. Limited options exist for pain medication at this point, so percocet is being given. Of note, the patient is asking for Fentanyl IV despite the fact that I told her it doesn't last long, because it "puts me to sleep." The request was declined. Considered scheduled Tylenol/Tramadol until patient stated that percocet was fine for her. PT/OT to evaluate prior to discharge as patient also feels weak. Of note, multiple CT scans were performed and negative. Pain appears to be strictly musculoskeletal in nature. 3. Weakness-multifactorial in setting of noncompliance with medications for multiple comorbidities and noncompliance with dialysis. She is very obese and deconditioned, also. Urinalysis appears positive for UTI, which also may be contributing. Will start empiric antibiotics and await culture results. PT/OT to evaluate. 4. Elevated troponin-likely related to demand ischemia in setting of recent travel to the [place] (long car ride to and from [place]) in setting of ESRD and noncompliance with HD. Ordered TTE, no increase in troponin and no cardiac chest pain present. She only admits to chest pain with sneezing or coughing deeply. 5. DMII with retinopathy-ISS/Lantus 6. HTN-cont with home meds. 7. PAD-pt states she is to go for a carotid surgery next week. She will have a pre-op evaluation with PCP on Tuesday. 8. Noncompliance.--patient has not been taking her medications for over 1 year. Restarted on meds, however, will watch closely for side effects, etc. This is important in setting of upcoming vascular surgery which puts her a higher risk of perioperative mortality. DVT proph-Heparin FULL CODE Dispo-will move to med/surg, cont with pain control efforts, PT/OT to see her. Sonja Turcios DO [facility] Hospitalist Current Inpatient Medications: Current Inpatient Medications Medications (Trade) Dose Ordered Sig/Bladimir Route Start Time Stop Time Status Last Admin Dose Admin Heparin Sodium (Porcine) (Heparin Sq 5000 Unit/0.5ml) 5,000 unit Q8 SQ 04/01/17 06:00 05/01/17 05:59 04/01/17 06:12 5,000 UNIT Acetaminophen (Tylenol Tab) 650 mg Q4H PRN PO 04/01/17 01:45 05/01/17 01:44 Ondansetron HCl (Zofran Inj) 4 mg Q6H PRN IV 04/01/17 01:45 05/01/17 01:44 Nitroglycerin (Nitrostat Tab) 0.4 mg UD PRN SL 04/01/17 01:45 05/01/17 01:44 Aspirin (Ecotrin Tab) 81 mg DAILY PO 04/02/17 09:00 05/02/17 08:59 Atorvastatin Calcium (Lipitor Tab) 40 mg QAM PO 04/01/17 09:00 05/01/17 08:59 04/01/17 07:15 40 MG Calcium Acetate (Phoslo Cap) 667 mg TIDM PO 04/01/17 07:30 05/01/17 07:29 04/01/17 07:14 667 MG Dicyclomine HCl (Bentyl Cap) 10 mg QID PRN PO 04/01/17 02:00 05/01/17 01:59 Fluticasone Propionate (Flonase Nasal Norton) 2 sprays DAILY NA 04/01/17 09:00 05/01/17 08:59 04/01/17 07:15 2 SPRAYS Insulin Glargine (Lantus Solostar Pen) 10 units QPM SC 04/01/17 21:00 05/01/17 20:59 Lorazepam (Ativan Tab) 0.5 mg DAILY PRN PO 04/01/17 02:00 05/01/17 01:59 Metoprolol Tartrate (Lopressor Tab) 50 mg BID PO 04/01/17 09:00 05/01/17 08:59 04/01/17 07:14 50 MG Pantoprazole Sodium (Protonix Tab) 40 mg QAM PO 04/01/17 09:00 05/01/17 08:59 04/01/17 07:14 40 MG Sertraline HCl (Zoloft Tab) 100 mg HS PO 04/01/17 21:00 05/01/17 20:59 Triamcinolone Acetonide (Kenalog 0.5% Crm) 1 appln BID EXT 04/01/17 09:00 05/01/17 08:59 04/01/17 07:13 1 APPLN Loratadine (Claritin Tab) 10 mg PM PO 04/01/17 21:00 05/01/17 20:59 Oxycodone/ Acetaminophen (Percocet 5-325mg Tab) 1 tab Q6H PRN PO 04/01/17 02:00 04/15/17 01:59 04/01/17 07:52 1 TAB Isosorbide Mononitrate (Imdur Ext Rel Tab) 90 mg QAM PO 04/01/17 09:00 05/01/17 08:59 04/01/17 07:14 90 MG Glucose (Glucose 40% Gel) 15-30 GRAMS 15 GRAMS... UD PRN PO 04/01/17 02:30 05/01/17 02:29 Glucose (Glucose Chew Tab) 4-8 Tablets 4 Tabl... UD PRN PO 04/01/17 02:30 05/01/17 02:29 Dextrose (Dextrose 50% 50ML Syringe) 25-50ML OF 50% DW IV FOR... UD PRN IV 04/01/17 02:30 05/01/17 02:29 Glucagon (Glucagon Inj) 1 mg UD PRN SQ 04/01/17 02:30 05/01/17 02:29 Sodium Chloride (Cougar Nasal Norton) 1 sprays PRN PRN NA 04/01/17 04:30 05/01/17 04:29 04/01/17 06:13 1 SPRAYS Miscellaneous (Iv Fluids Completed) 1 ea PRN PRN N/A 04/01/17 04:45 04/01/18 04:44
[2017-04-01] MEDS: CEFTRIAXONE SOD INJ 1 GM in DEXTROSE 5% ADD-VANTAGE 50ML 50 ML IV SCH (17:54)
[2017-04-01] MEDS: ACETAMINOPHEN 325 MG TAB PO PRN (19:47)
[2017-04-01] MEDS: LORATADINE 10 MG TAB PO SCH (20:00)
[2017-04-01] MEDS: SERTRALINE HCL 100 MG TAB PO SCH (20:01)
[2017-04-01] MEDS: INSULIN GLARGINE SOLOSTAR 100 UNITS/ML 3 ML PEN SC SCH (20:11)
[2017-04-02] VITALS (18 sets, daily range): BP systolic 75–155; BP diastolic 37–88; PULSE 57–77; TEMP 36.4–36.9; O2SAT 95–98
[2017-04-02] MEDS: ACETAMINOPHEN 325 MG TAB PO PRN (02:01)
[2017-04-02] MEDS: HEPARIN SOD 5000 UNIT/0.5 ML CARP SQ SCH ×3 (06:25→21:06)
[2017-04-02 06:45] LABS: HEMATOCRIT 32.7 % (37-47); MEAN CELL VOLUME 94.8 fL (80-100); MEAN CORPUSCULAR HEMOGLOBIN 31.3 pg (25-34); MEAN PLATELET VOLUME 11.2 fL (7.4-10.4); PLATELET COUNT 318 K/uL (130-400); RED BLOOD COUNT 3.45 M/uL (4.2-5.4)
[2017-04-02 07:13] LABS: CALCIUM 9.8 mg/dl (8.5-10.1); MAGNESIUM 2.5 mg/dl (1.8-2.4); POTASSIUM 4.7 mmol/L (3.5-5.1)
[2017-04-02 07:27] LABS: BUN/CREATININE RATIO 8.2 (10-20); CREATININE 9.4 mg/dl (0.60-1.20); PHOSPHORUS 9.4 mg/dl (2.5-4.9)
[2017-04-02] MEDS: ATORVASTATIN 20 MG TAB PO SCH (08:00)
[2017-04-02] MEDS: ISOSORBIDE MONONITRATE 30 MG TABCR PO SCH (08:00)
[2017-04-02] MEDS: PANTOprazole SOD 40 MG TAB PO SCH (08:00)
[2017-04-02] MEDS: TRIAMCINOLONE ACET 0.5% CR 15 GM TUBE EXT SCH ×2 (08:02→20:59)
[2017-04-02] MEDS: CALCIUM ACETATE 667MG GELCAP PO SCH ×3 (08:03→17:52)
[2017-04-02] MEDS: FLUTICASONE PROPIONATE NA SPR 16 GM BTL SCH (08:03)
[2017-04-02] MEDS: METOPROLOL TARTRATE 50 MG TAB PO SCH ×2 (08:04→21:01)
[2017-04-02] MEDS: ASPIRIN 81 MG ECTAB PO SCH (08:04)
[2017-04-02] MEDS: OXYCODONE/ACETAMINOPHEN 5-325 TAB PO PRN (08:14)
[2017-04-02] MEDS: CEFTRIAXONE SOD INJ 1 GM in DEXTROSE 5% ADD-VANTAGE 50ML 50 ML IV SCH (17:52)
--- NOTE | 2017-04-02 19:30 | ECHOCARDIOGRAM REPORT ---
*NOTICE TO RECEIVING LIBERTARIAN AGENCY This information is strictly Confidential and protected under [place] law. [place] law prohibits you from making any further disclosure of this information unless further disclosure is expressly permitted by the written consent of the person to whom it pertains or is authorized by law. A general authorization for the release of medical or other information is not sufficient for this purpose. Hospital accepts no responsibility if the information is made available to any other person, INCLUDING THE PATIENT. Interpretation Summary * Name: JAILENE PERRY Study Date: 04/02/2017 09:59 AM BP: 181/101 mmHg * Patient Location: [id number]\S\1 HR: 76 * : 1965 (M/d/yyyy) Gender: Female Height: 67 in * Age: 51 yrs Ethnicity: [place] Weight: 242 lb * Ordering Physician: Sonja Turcios * Referring Physician: Self, Referred * Performed By: Prakash Hunt RCS * * Reason For Study: Elevated Troponin * BSA: 2.2 m2 * The study was technically adequate. * -- Conclusions -- * The left ventricle is mildly dilated. * There is a large sized apical, septal, inferior, and posterior wall motion abnormality with hypokinesis of the segments. * Left ventricular systolic function is mildly reduced. * The calculated left ventricular ejection fraction =46%. * Grade I diastolic dysfunction, (abnormal relaxation pattern). * Compared to the images of the prior study dated 10/07/16, the LV apex is better visualized allowing improved assessment of the LV systolic function. When similar images are compared, there does not appear to be a significant interval change in the LV systolic function. Procedure Details * A complete two-dimensional transthoracic echocardiogram was performed (2D, M-mode, Doppler and color flow Doppler). Left Ventricle * The left ventricle is mildly dilated. * There is normal left ventricular wall thickness. * Left ventricular systolic function is mildly reduced. * The caclulated left ventricular ejection fraction =46%. * There is a large sized apical, septal, inferior, and posterior wall motion abnormality with hypokinesis of the segments. Right Ventricle * The right ventricle is normal in size and function. Atria * The left atrium is mildly dilated. * Right atrial size is normal. * There is no evidence of atrial septal defect, but resolution does not allow assessment for a patent foramen ovale. Mitral Valve * The mitral valve is normal. * There is no mitral valve stenosis. * Significant mitral regurgitation is absent. Tricuspid Valve * The tricuspid valve is normal. * There is no tricuspid stenosis. * Significant tricuspid regurgitation is absent. * Doppler findings do not suggest pulmonary hypertension. Aortic Valve * The aortic valve is trileaflet. * Aortic stenosis is absent. * There is no significant aortic regurgitation. Pulmonic Valve * The pulmonary valve is not well seen, but the Doppler examination is normal without significant regurgitation or stenosis. Great Vessels * The aortic root and proximal ascending aorta are normal sized. Pericardium/Pleural * There is no pericardial effusion. Great Vessels * Normal inferior vena cava diameter and respiratory variation suggests normal central venous pressure. Left Ventricular Diastolic Function * Grade I diastolic dysfunction, (abnormal relaxation pattern). MMode 2D Measurements and Calculations IVSd 1.2 cm LVIDd 5.8 cm LVIDs 4.5 cm LVPWd 1.2 cm IVS/LVPW 0.94 FS 23.0 % EDV(Teich) 167.5 ml ESV(Teich) 91.4 ml EF(Teich) 45.4 % EDV(cubed) 196.5 ml ESV(cubed) 89.8 ml EF(cubed) 54.3 % LV mass(C)d 294.4 grams LV mass(C)dI 134.3 grams/m\S\2 SV(Teich) 76.1 ml SI(Teich) 34.7 ml/m\S\2 SV(cubed) 106.7 ml SI(cubed) 48.6 ml/m\S\2 Ao root diam 3.0 cm Ao root area 7.1 cm\S\2 LVOT diam 2.0 cm LVOT area 3.1 cm\S\2 EDV(MOD-sp4) 168.7 ml ESV(MOD-sp4) 77.6 ml EF(MOD-sp4) 54.0 % EDV(MOD-sp2) 141.0 ml ESV(MOD-sp2) 86.0 ml EF(MOD-sp2) 39.0 % SV(MOD-sp4) 91.1 ml SI(MOD-sp4) 41.6 ml/m\S\2 SV(MOD-sp2) 55.0 ml SI(MOD-sp2) 25.1 ml/m\S\2 Doppler Measurements and Calculations MV E max william 82.0 cm/sec MV A max william 114.3 cm/sec MV E/A 0.72 MV dec time 0.18 sec Ao V2 max 172.3 cm/sec Ao max PG 11.9 mmHg Ao max PG (full) 10.7 mmHg INA(V,A) 0.75 cm\S\2 INA(V,D) 0.75 cm\S\2 LV V1 max PG 1.2 mmHg LV V1 max 40.8 cm/sec
[2017-04-02] MEDS: LORATADINE 10 MG TAB PO SCH (21:00)
[2017-04-02] MEDS: SERTRALINE HCL 100 MG TAB PO SCH (21:00)
[2017-04-02] MEDS: INSULIN GLARGINE SOLOSTAR 100 UNITS/ML 3 ML PEN SC SCH (21:05)
--- NOTE | 2017-04-02 22:12 | Progress Note ---
Medicine Progress Note Date & Time of Visit: Apr 02, 2017 at 1600. Subjective -tolerating PO -decreased ambulation ability -denies CP or SOB -undergoing HD at this time -feels fatigued Objective Last 8 Hrs Date Time Temp Pulse Resp B/P (MAP) Pulse Ox O2 Delivery O2 Flow Rate FiO2 04/02/17 18:20 36.4 63 101/56 (71) 04/02/17 17:17 60 89/49 04/02/17 17:00 59 92/55 04/02/17 16:45 66 115/68 04/02/17 16:30 60 93/54 04/02/17 16:15 59 95/53 04/02/17 16:00 57 75/50 04/02/17 16:00 95 Room Air 04/02/17 15:45 67 110/37 04/02/17 15:30 57 94/55 04/02/17 15:15 60 105/58 04/02/17 15:00 66 104/62 04/02/17 14:45 77 141/82 04/02/17 14:32 74 152/88 04/02/17 14:24 36.4 76 150/83 (105) Physical Exam: GEN: morbid obesity, in no acute distress, alert and appropriate, receiving HD HEENT: NC/AT, pupils equal and reactive bilaterally, normal sclerae, MMM CARDIO: reg rate, S1/2 heard without m/g/r LUNGS: CTA bilaterally, no crackles, rales or wheezes, good diaphragmatic excursion ABD: soft, non-tender, non-distended, no rebound or guarding, +BS EXTREMITY: RP and DP palpable 2+ bilat, no LE swelling or edema, extremities are warm and well-perfused NEURO: CN 2-12 grossly intact, no gross focal deficits MUSC: 5/5 strength throughout, moves all extremities equally, limited exam as patient cannot move much while hooked up to HD machine. SKIN: warm and dry Laboratory Results: 04/02/17 06:07 04/02/17 06:07 Test 03/31/17 21:00 04/01/17 10:25 04/01/17 14:19 04/02/17 06:07 Immature Granulocyte % (Auto) 0.2 % White Blood Count 13.35 K/uL (4.8-10.8) Red Blood Count 3.41 M/uL (4.2-5.4) 3.45 M/uL (4.2-5.4) Hemoglobin 10.3 g/dL (12.0-16.0) Hematocrit 31.4 % (37-47) Mean Corpuscular Volume 92.1 fL (80-100) 94.8 fL (80-100) Mean Corpuscular Hemoglobin 30.2 pg (25-34) 31.3 pg (25-34) Mean Corpuscular Hemoglobin Concent 32.8 g/dl (32-36) 33.0 g/dl (32-36) Platelet Count 368 K/uL (130-400) Mean Platelet Volume 11.2 fL (7.4-10.4) 11.2 fL (7.4-10.4) Neutrophils (%) (Auto) 77.2 % Lymphocytes (%) (Auto) 14.6 % Monocytes (%) (Auto) 7.2 % Eosinophils (%) (Auto) 0.7 % Basophils (%) (Auto) 0.1 % Neutrophils # (Auto) 10.29 K/uL (1.4-6.5) Lymphocytes # (Auto) 1.95 K/uL (1.2-3.4) Monocytes # (Auto) 0.96 K/uL (0.11-0.59) Eosinophils # (Auto) 0.10 K/uL (0-0.5) Basophils # (Auto) 0.02 K/uL (0-0.2) Immature Granulocyte # (Auto) 0.03 K/uL (0.00-0.02) Total Bilirubin 0.4 mg/dl (0.2-1) Aspartate Amino Transf (AST/SGOT) 7 U/L (15-37) Alanine Aminotransferase (ALT/SGPT) 12 U/L (12-78) Alkaline Phosphatase 67 U/L (45-117) Total Protein 8.2 gm/dl (6.4-8.2) Albumin 2.8 gm/dl (3.4-5.0) Globulin 5.4 gm/dl (2.5-4.0) Albumin/Globulin Ratio 0.5 (0.9-2) Urine Color YELLOW Urine Appearance CLEAR (CLEAR) Urine pH 7.0 (4.5-7.5) Urine Specific [place] 1.017 (1.000-1.030) Urine Protein 3+ (NEG) Urine Glucose (UA) 1+ (NEG) Urine Ketones NEG (NEG) Urine Occult Blood TRACE (NEG) Urine Nitrite NEG (NEG) Urine Bilirubin NEG (NEG) Urine Urobilinogen NEG (NEG) Urine Leukocyte Esterase SMALL (NEG) Urine WBC (Auto) 10-30 /hpf (0-5) Urine RBC (Auto) 0-4 /hpf (0-4) Urine Hyaline Casts (Auto) 1-5 /lpf (0-5) Urine Epithelial Cells (Auto) >30 /lpf (0-5) Urine Bacteria (Auto) 1+ (NEG) Total Creatine Kinase 41 U/L (26-192) Creatine Kinase MB 3.8 ng/ml (0.5-3.6) Creatine Kinase MB Ratio 9.3 (0-3.0) Troponin I 0.125 ng/ml (0-0.045) RDW Standard Deviation 49.2 fL (36.4-46.3) RDW Coefficient of Variation 14.2 % (11.5-14.5) Anion Gap 13.0 mmol/L (3-11) Est Creatinine Clear Calc Drug Dose 9.0 ml/min Estimated GFR () 5.1 Estimated GFR (Non- 4.4 BUN/Creatinine Ratio 8.2 (10-20) Calcium Level 9.8 mg/dl (8.5-10.1) Phosphorus Level 9.4 mg/dl (2.5-4.9) Magnesium Level 2.5 mg/dl (1.8-2.4) Test 04/02/17 20:36 Bedside Glucose 143 mg/dl (70-90) Date/Time Source Procedure Growth Status 04/01/17 10:25 Urine , Clean Catch Urine Culture - Final MORE THAN THREE TYPES OF ORGANISMS AL... Complete Last 24 Hours Test 04/02/17 06:07 04/02/17 20:36 White Blood Count 10.20 K/uL Red Blood Count 3.45 M/uL Hemoglobin 10.8 g/dL Hematocrit 32.7 % Mean Corpuscular Volume 94.8 fL Mean Corpuscular Hemoglobin 31.3 pg Mean Corpuscular Hemoglobin Concent 33.0 g/dl RDW Standard Deviation 49.2 fL RDW Coefficient of Variation 14.2 % Platelet Count 318 K/uL Mean Platelet Volume 11.2 fL Sodium Level 134 mmol/L Potassium Level 4.7 mmol/L Chloride Level 95 mmol/L Carbon Dioxide Level 26 mmol/L Anion Gap 13.0 mmol/L Blood Urea Nitrogen 77 mg/dl Creatinine 9.40 mg/dl Est Creatinine Clear Calc Drug Dose 9.0 ml/min Estimated GFR () 5.1 Estimated GFR (Non- 4.4 BUN/Creatinine Ratio 8.2 Random Glucose 104 mg/dl Calcium Level 9.8 mg/dl Phosphorus Level 9.4 mg/dl Magnesium Level 2.5 mg/dl Bedside Glucose 143 mg/dl Assessment & Plan 51 yo F s/p fall in [place] three days ago (was [place] on the beach and tipped over on her side). Elevated troponins without chest pain or shortness of breath thought 2/2 probable diastolic dysfunction in setting of noncompliance and ESRD, also noncompliant with HD. TTE ordered revealing wall motion abnormalities. Cont tele monitoring at this time and consult cardiology for further evaluation especially as she is slated to undergo a carotid revascularization soon. Currently PT recommends rehabilitation when she leaves the hospital. She has been noncompliant with meds and HD and is, therefore, not optimized for surgery. Addiitonally she continues to not take meds given to her here in the hospital. 1. Elevated troponin-likely related to demand ischemia in setting of recent travel to the [place] car ride to and from [place]) in setting of ESRD and noncompliance with HD. Ordered TTE, no increase in troponin and no cardiac chest pain present. TTE revealed a large sized apical, septal, inferior, and posterior wall motion abnormality with HK of the segments, LV systolic function is mildly reduced, EF is 46%, GRade I DD seen. Monitor on tele in case of arrhythmia and consult Cardiology to assist in setting of upcoming carotid surgery. 2. ESRD-noncompliant with HD for the past week. HD performed today. Per Nephro OK to go home after HD complete. 3. Muscle pain/back strain-pt with recent h/o long car ride to and from [facility]. She got back into town a few days ago. While [place] the [place] she was on her hands and knees and tipped over onto her side. She waited a few days and then presented complaining of weakness and severe pain in her lower back. Limited options exist for pain medication at this point, so percocet is being given. Of note, multiple CT scans were performed and negative. Pain appears to be strictly musculoskeletal in nature. 4. Weakness-multifactorial in setting of noncompliance with medications for multiple comorbidities and noncompliance with dialysis. Obese, deconditioned and not motivated to improve. 5. DMII with retinopathy-ISS/Lantus, controlled. 6. HTN-cont with home meds. 7. PAD-pt states she is to go for a carotid surgery next week. This will likely be delayed. Cont ASA and statin. 8. Noncompliance.--patient has not been taking her medications for over 1 year. Restarted on meds, however, will watch closely for side effects, etc. This is important in setting of upcoming vascular surgery which puts her a higher risk of perioperative mortality. Also has been noncompliant with inpatient medications. DVT proph-Heparin FULL CODE Dispo-to tele Sonja Turcios DO [facility] Hospitalist Current Inpatient Medications: Current Inpatient Medications Medications (Trade) Dose Ordered Sig/Bladimir Route Start Time Stop Time Status Last Admin Dose Admin Heparin Sodium (Porcine) (Heparin Sq 5000 Unit/0.5ml) 5,000 unit Q8 SQ 04/01/17 06:00 05/01/17 05:59 04/02/17 21:06 5,000 UNIT Acetaminophen (Tylenol Tab) 650 mg Q4H PRN PO 04/01/17 01:45 05/01/17 01:44 04/02/17 02:01 650 MG Ondansetron HCl (Zofran Inj) 4 mg Q6H PRN IV 04/01/17 01:45 05/01/17 01:44 Nitroglycerin (Nitrostat Tab) 0.4 mg UD PRN SL 04/01/17 01:45 05/01/17 01:44 Aspirin (Ecotrin Tab) 81 mg DAILY PO 04/02/17 08:00 05/02/17 08:59 04/02/17 08:04 81 MG Atorvastatin Calcium (Lipitor Tab) 40 mg QAM PO 04/01/17 09:00 05/01/17 08:59 04/02/17 08:00 40 MG Calcium Acetate (Phoslo Cap) 667 mg TIDM PO 04/01/17 07:30 05/01/17 07:29 04/02/17 17:52 667 MG Dicyclomine HCl (Bentyl Cap) 10 mg QID PRN PO 04/01/17 02:00 05/01/17 01:59 Fluticasone Propionate (Flonase Nasal [place]) 2 sprays DAILY NA 04/01/17 09:00 05/01/17 08:59 04/02/17 08:03 2 SPRAYS Insulin Glargine (Lantus Solostar Pen) 10 units QPM SC 04/01/17 21:00 05/01/17 20:59 04/02/17 21:05 10 UNITS Lorazepam (Ativan Tab) 0.5 mg DAILY PRN PO 04/01/17 02:00 05/01/17 01:59 Metoprolol Tartrate (Lopressor Tab) 50 mg BID PO 04/01/17 09:00 05/01/17 08:59 04/02/17 21:01 50 MG Pantoprazole Sodium (Protonix Tab) 40 mg QAM PO 04/01/17 09:00 05/01/17 08:59 04/02/17 08:00 40 MG Sertraline HCl (Zoloft Tab) 100 mg HS PO 04/01/17 21:00 05/01/17 20:59 04/02/17 21:00 100 MG Triamcinolone Acetonide (Kenalog 0.5% Crm) 1 appln BID EXT 04/01/17 09:00 05/01/17 08:59 04/02/17 20:59 1 APPLN Loratadine (Claritin Tab) 10 mg PM PO 04/01/17 21:00 05/01/17 20:59 04/02/17 21:00 10 MG Oxycodone/ Acetaminophen (Percocet 5-325mg Tab) 1 tab Q6H PRN PO 04/01/17 02:00 04/15/17 01:59 04/02/17 08:14 1 TAB Isosorbide Mononitrate (Imdur Ext Rel Tab) 90 mg QAM PO 04/01/17 09:00 05/01/17 08:59 04/02/17 08:00 90 MG Glucose (Glucose 40% Gel) 15-30 GRAMS 15 GRAMS... UD PRN PO 04/01/17 02:30 05/01/17 02:29 Glucose (Glucose Chew Tab) 4-8 Tablets 4 Tabl... UD PRN PO 04/01/17 02:30 05/01/17 02:29 Dextrose (Dextrose 50% 50ML Syringe) 25-50ML OF 50% DW IV FOR... UD PRN IV 04/01/17 02:30 05/01/17 02:29 Glucagon (Glucagon Inj) 1 mg UD PRN SQ 04/01/17 02:30 05/01/17 02:29 Sodium Chloride ([place] Nasal [place]) 1 sprays PRN PRN NA 04/01/17 04:30 05/01/17 04:29 04/01/17 06:13 1 SPRAYS Miscellaneous (Iv Fluids Completed) 1 ea PRN PRN N/A 04/01/17 04:45 04/01/18 04:44 Ceftriaxone Sodium 1 gm/ Dextrose 50 ml @ 100 mls/hr DAILY@1600 IV 04/01/17 16:00 04/06/17 15:59 04/02/17 17:52 100 MLS/HR
[2017-04-03] MEDS ORDERED: ONDANSETRON INJ 2 MG/ML 2 ML VIAL IV PRN
[2017-04-03 04:05] VITALS: BP 136/72; PULSE 71; TEMP 36.9; O2SAT 97
[2017-04-03] MEDS: HEPARIN SOD 5000 UNIT/0.5 ML CARP SQ SCH ×3 (05:52→21:37)
[2017-04-03 06:05] LABS: HEMATOCRIT 33.8 % (37-47); MEAN CORPUSCULAR HGB CONC 32.2 g/dl (32-36); MEAN PLATELET VOLUME 11.2 fL (7.4-10.4); PLATELET COUNT 346 K/uL (130-400); RED BLOOD COUNT 3.52 M/uL (4.2-5.4); WHITE BLOOD COUNT 13.42 K/uL (4.8-10.8)
[2017-04-03 06:43] LABS: BUN/CREATININE RATIO 6.4 (10-20); CALCIUM 9.3 mg/dl (8.5-10.1); CREATININE 7.1 mg/dl (0.60-1.20); MAGNESIUM 2.5 mg/dl (1.8-2.4); PHOSPHORUS 8.3 mg/dl (2.5-4.9); POTASSIUM 4.4 mmol/L (3.5-5.1)
[2017-04-03 07:03] VITALS: BP 124/76; PULSE 72; TEMP 36.9; O2SAT 92
[2017-04-03] MEDS: CALCIUM ACETATE 667MG GELCAP PO SCH ×3 (08:22→17:21)
[2017-04-03] MEDS: ASPIRIN 81 MG ECTAB PO SCH (08:23)
[2017-04-03] MEDS: FLUTICASONE PROPIONATE NA SPR 16 GM BTL SCH (08:23)
[2017-04-03] MEDS: TRIAMCINOLONE ACET 0.5% CR 15 GM TUBE EXT SCH ×2 (08:23→21:24)
[2017-04-03] MEDS: ISOSORBIDE MONONITRATE 30 MG TABCR PO SCH (08:24)
[2017-04-03] MEDS: ATORVASTATIN 20 MG TAB PO SCH (08:24)
[2017-04-03] MEDS: METOPROLOL TARTRATE 50 MG TAB PO SCH ×2 (08:24→21:28)
[2017-04-03] MEDS: PANTOprazole SOD 40 MG TAB PO SCH (08:25)
[2017-04-03] MEDS: OXYCODONE/ACETAMINOPHEN 5-325 TAB PO PRN (10:07)
--- NOTE | 2017-04-03 11:17 | Progress Note ---
Medicine Progress Note Date & Time of Visit: Apr 03, 2017 at 10:22. Subjective tolerating PO denies chest pain or shortness of breath denies decreased sensation in legs. reports that back pain is somewhat improved discussed rehab and patient states that she is willing to go and pushed her surgery back discussed percocet with options pt states that this is her chronic back pain made worse by the fall. Objective Last 8 Hrs Date Time Temp Pulse Resp B/P (MAP) Pulse Ox O2 Delivery O2 Flow Rate FiO2 04/03/17 07:03 36.9 72 18 124/76 (92) 92 Room Air 04/03/17 04:05 36.9 71 16 136/72 (93) 97 Room Air 04/03/17 04:00 Room Air Physical Exam: GEN: morbid obesity, in no acute distress, alert and appropriate, receiving HD HEENT: NC/AT, pupils equal and reactive bilaterally, normal sclerae, MMM CARDIO: reg rate, S1/2 heard without m/g/r LUNGS: CTA bilaterally, no crackles, rales or wheezes, good diaphragmatic excursion ABD: soft, non-tender, non-distended, no rebound or guarding, +BS BACK: paraspinal TTP in thoracic and lumbar spine EXTREMITY: RP and DP palpable 2+ bilat, no LE swelling or edema, extremities are warm and well-perfused NEURO: CN 2-12 grossly intact, no gross focal deficits MUSC: 5/5 strength throughout, moves all extremities equally SKIN: warm and dry Laboratory Results: 04/03/17 05:21 04/03/17 05:21 Test 03/31/17 21:00 04/01/17 10:25 04/01/17 14:19 04/02/17 20:36 Immature Granulocyte % (Auto) 0.2 % White Blood Count 13.35 K/uL (4.8-10.8) Red Blood Count 3.41 M/uL (4.2-5.4) Hemoglobin 10.3 g/dL (12.0-16.0) Hematocrit 31.4 % (37-47) Mean Corpuscular Volume 92.1 fL (80-100) Mean Corpuscular Hemoglobin 30.2 pg (25-34) Mean Corpuscular Hemoglobin Concent 32.8 g/dl (32-36) Platelet Count 368 K/uL (130-400) Mean Platelet Volume 11.2 fL (7.4-10.4) Neutrophils (%) (Auto) 77.2 % Lymphocytes (%) (Auto) 14.6 % Monocytes (%) (Auto) 7.2 % Eosinophils (%) (Auto) 0.7 % Basophils (%) (Auto) 0.1 % Neutrophils # (Auto) 10.29 K/uL (1.4-6.5) Lymphocytes # (Auto) 1.95 K/uL (1.2-3.4) Monocytes # (Auto) 0.96 K/uL (0.11-0.59) Eosinophils # (Auto) 0.10 K/uL (0-0.5) Basophils # (Auto) 0.02 K/uL (0-0.2) Immature Granulocyte # (Auto) 0.03 K/uL (0.00-0.02) Total Bilirubin 0.4 mg/dl (0.2-1) Aspartate Amino Transf (AST/SGOT) 7 U/L (15-37) Alanine Aminotransferase (ALT/SGPT) 12 U/L (12-78) Alkaline Phosphatase 67 U/L (45-117) Total Protein 8.2 gm/dl (6.4-8.2) Albumin 2.8 gm/dl (3.4-5.0) Globulin 5.4 gm/dl (2.5-4.0) Albumin/Globulin Ratio 0.5 (0.9-2) Urine Color YELLOW Urine Appearance CLEAR (CLEAR) Urine pH 7.0 (4.5-7.5) Urine Specific [place] 1.017 (1.000-1.030) Urine Protein 3+ (NEG) Urine Glucose (UA) 1+ (NEG) Urine Ketones NEG (NEG) Urine Occult Blood TRACE (NEG) Urine Nitrite NEG (NEG) Urine Bilirubin NEG (NEG) Urine Urobilinogen NEG (NEG) Urine Leukocyte Esterase SMALL (NEG) Urine WBC (Auto) 10-30 /hpf (0-5) Urine RBC (Auto) 0-4 /hpf (0-4) Urine Hyaline Casts (Auto) 1-5 /lpf (0-5) Urine Epithelial Cells (Auto) >30 /lpf (0-5) Urine Bacteria (Auto) 1+ (NEG) Total Creatine Kinase 41 U/L (26-192) Creatine Kinase MB 3.8 ng/ml (0.5-3.6) Creatine Kinase MB Ratio 9.3 (0-3.0) Troponin I 0.125 ng/ml (0-0.045) Bedside Glucose 143 mg/dl (70-90) Test 04/03/17 05:21 Red Blood Count 3.52 M/uL (4.2-5.4) Mean Corpuscular Volume 96.0 fL (80-100) Mean Corpuscular Hemoglobin 31.0 pg (25-34) Mean Corpuscular Hemoglobin Concent 32.2 g/dl (32-36) RDW Standard Deviation 49.9 fL (36.4-46.3) RDW Coefficient of Variation 14.3 % (11.5-14.5) Mean Platelet Volume 11.2 fL (7.4-10.4) Anion Gap 10.0 mmol/L (3-11) Est Creatinine Clear Calc Drug Dose 11.8 ml/min Estimated GFR () 7.1 Estimated GFR (Non- 6.1 BUN/Creatinine Ratio 6.4 (10-20) Calcium Level 9.3 mg/dl (8.5-10.1) Phosphorus Level 8.3 mg/dl (2.5-4.9) Magnesium Level 2.5 mg/dl (1.8-2.4) Date/Time Source Procedure Growth Status 04/01/17 10:25 Urine , Clean Catch Urine Culture - Final MORE THAN THREE TYPES OF ORGANISMS HI... Complete Last 24 Hours Test 04/02/17 20:36 04/03/17 05:21 Bedside Glucose 143 mg/dl White Blood Count 13.42 K/uL Red Blood Count 3.52 M/uL Hemoglobin 10.9 g/dL Hematocrit 33.8 % Mean Corpuscular Volume 96.0 fL Mean Corpuscular Hemoglobin 31.0 pg Mean Corpuscular Hemoglobin Concent 32.2 g/dl RDW Standard Deviation 49.9 fL RDW Coefficient of Variation 14.3 % Platelet Count 346 K/uL Mean Platelet Volume 11.2 fL Sodium Level 136 mmol/L Potassium Level 4.4 mmol/L Chloride Level 97 mmol/L Carbon Dioxide Level 29 mmol/L Anion Gap 10.0 mmol/L Blood Urea Nitrogen 45 mg/dl Creatinine 7.10 mg/dl Est Creatinine Clear Calc Drug Dose 11.8 ml/min Estimated GFR () 7.1 Estimated GFR (Non- 6.1 BUN/Creatinine Ratio 6.4 Random Glucose 113 mg/dl Calcium Level 9.3 mg/dl Phosphorus Level 8.3 mg/dl Magnesium Level 2.5 mg/dl Assessment & Plan 51 yo F s/p fall in [place] three days ago (was [place] the beach and [place] on her side). Elevated troponins without chest pain or shortness of breath thought 2/2 probable diastolic dysfunction in setting of noncompliance and ESRD, also noncompliant with HD. TTE ordered revealing wall motion abnormalities consistent with poss inferior [place]. Cont tele monitoring at this time and consult cardiology for further evaluation especially as she is slated to undergo a carotid revascularization soon. Currently PT recommends rehabilitation when she leaves the hospital-CM aware and will place referral-- pt is willing to go. Per Cardiology evaluation, wall motion abnormalities are old and she is OK to proceed to carotid surgery from a cardiac standpoint when ready. Because of rehab needs, she will have her surgery pushed back a few weeks. 1. Elevated troponin-TTE revealed a large sized apical, septal, inferior, and posterior wall motion abnormality with HK of the segments, LV systolic function is mildly reduced, EF is 46%, GRade I DD seen. Systolic dysfunction is actually old and she is compensated with no new symptoms of concern for acute process. Appreciate Dr. Lay evaluation. She will be transferred back to floor while awaiting rehab placement. 2. Chronic systolic heart failure-compensated, cont current medical therapy with no changes. 3. ESRD-cont HD per Nephrology. 4. Muscle pain/back strain-no fractures/dislocations on admission imaging CTs. Pain has improved somewhat with the percocet. Will stop this now and start a trial of scheduled Valium and Tylenol. Encouraged ambulation-appears to have low motivation and just wants to sleep. Rehab referral to be placed. Kpad ordered for comfort. 5. Weakness-multifactorial in setting of noncompliance with medications for multiple comorbidities and noncompliance with dialysis. Obese, deconditioned and not motivated to improve. 6. DMII with retinopathy-ISS/Lantus, controlled. 7. HTN-cont with home meds. 8. PAD-pt states she is to go for a carotid surgery next week. This will likely be delayed. Cont ASA and statin. 9. Noncompliance.--patient has not been taking her medications for over 1 year. Restarted on meds, however, will watch closely for side effects, etc. This is important in setting of upcoming vascular surgery which puts her a higher risk of perioperative mortality. Also has been noncompliant with inpatient medications. 10. Fatigue 2/2 insomnia today--changed sertraline dosing to am instead of pm to help with this. Likely mutlifactorial from renal failure, obesity with deconditioning, meds, etc DVT proph-Heparin FULL CODE Dispo-to med/surg, ok to go to rehab when bed available. Sonja Turcios DO [facility] Hospitalist Current Inpatient Medications: Current Inpatient Medications Medications (Trade) Dose Ordered Sig/Bladimir Route Start Time Stop Time Status Last Admin Dose Admin Heparin Sodium (Porcine) (Heparin Sq 5000 Unit/0.5ml) 5,000 unit Q8 SQ 04/01/17 06:00 05/01/17 05:59 04/03/17 05:52 5,000 UNIT Acetaminophen (Tylenol Tab) 650 mg Q4H PRN PO 04/01/17 01:45 05/01/17 01:44 04/02/17 02:01 650 MG Ondansetron HCl (Zofran Inj) 4 mg Q6H PRN IV 04/01/17 01:45 05/01/17 01:44 04/03/17 00:05 4 MG Nitroglycerin (Nitrostat Tab) 0.4 mg UD PRN SL 04/01/17 01:45 05/01/17 01:44 Aspirin (Ecotrin Tab) 81 mg DAILY PO 04/02/17 08:00 05/02/17 08:59 04/03/17 08:23 81 MG Atorvastatin Calcium (Lipitor Tab) 40 mg QAM PO 04/01/17 09:00 05/01/17 08:59 04/03/17 08:24 40 MG Calcium Acetate (Phoslo Cap) 667 mg TIDM PO 04/01/17 07:30 05/01/17 07:29 04/03/17 08:22 667 MG Dicyclomine HCl (Bentyl Cap) 10 mg QID PRN PO 04/01/17 02:00 05/01/17 01:59 Fluticasone Propionate (Flonase Nasal [place]) 2 sprays DAILY NA 04/01/17 09:00 05/01/17 08:59 04/03/17 08:23 2 SPRAYS Insulin Glargine (Lantus Solostar Pen) 10 units QPM SC 04/01/17 21:00 05/01/17 20:59 04/02/17 21:05 10 UNITS Lorazepam (Ativan Tab) 0.5 mg DAILY PRN PO 04/01/17 02:00 05/01/17 01:59 Metoprolol Tartrate (Lopressor Tab) 50 mg BID PO 04/01/17 09:00 05/01/17 08:59 04/03/17 08:24 50 MG Pantoprazole Sodium (Protonix Tab) 40 mg QAM PO 04/01/17 09:00 05/01/17 08:59 04/03/17 08:25 40 MG Sertraline HCl (Zoloft Tab) 100 mg HS PO 04/01/17 21:00 05/01/17 20:59 04/02/17 21:00 100 MG Triamcinolone Acetonide (Kenalog 0.5% Crm) 1 appln BID EXT 04/01/17 09:00 05/01/17 08:59 04/03/17 08:23 1 APPLN Loratadine (Claritin Tab) 10 mg PM PO 04/01/17 21:00 05/01/17 20:59 04/02/17 21:00 10 MG Oxycodone/ Acetaminophen (Percocet 5-325mg Tab) 1 tab Q6H PRN PO 04/01/17 02:00 04/15/17 01:59 04/03/17 10:07 1 TAB Isosorbide Mononitrate (Imdur Ext Rel Tab) 90 mg QAM PO 04/01/17 09:00 05/01/17 08:59 04/03/17 08:24 90 MG Glucose (Glucose 40% Gel) 15-30 GRAMS 15 GRAMS... UD PRN PO 04/01/17 02:30 05/01/17 02:29 Glucose (Glucose Chew Tab) 4-8 Tablets 4 Tabl... UD PRN PO 04/01/17 02:30 05/01/17 02:29 Dextrose (Dextrose 50% 50ML Syringe) 25-50ML OF 50% DW IV FOR... UD PRN IV 04/01/17 02:30 05/01/17 02:29 Glucagon (Glucagon Inj) 1 mg UD PRN SQ 04/01/17 02:30 05/01/17 02:29 Sodium Chloride ([place] Nasal [place]) 1 sprays PRN PRN NA 04/01/17 04:30 05/01/17 04:29 04/01/17 06:13 1 SPRAYS Miscellaneous (Iv Fluids Completed) 1 ea PRN PRN N/A 04/01/17 04:45 04/01/18 04:44
[2017-04-03 11:37] VITALS: BP 137/75; PULSE 77; TEMP 36.9; O2SAT 95
[2017-04-03] MEDS: LIDODERM (LIDOCAINE) PATCH 5% TD SCH (12:28)
[2017-04-03 13:58] VITALS: BP 137/75; PULSE 77; TEMP 36.9; O2SAT 95
[2017-04-03 13:59] VITALS: BP 108/65; PULSE 62; TEMP 36.5; O2SAT 94
[2017-04-03] MEDS: ACETAMINOPHEN 500 MG TAB PO SCH ×2 (14:23→21:29)
[2017-04-03] MEDS: DIAZEPAM 2MG TAB PO SCH ×2 (14:25→21:29)
--- NOTE | 2017-04-03 16:12 | CARDIOLOGY CONSULTATION ---
DATE OF CONSULTATION: 04/03/2017 PERTINENT HISTORY: Ms. Gilbert is a 51-year-old white female admitted on 04/01/2017 after a fall resulting in intractable back pain. The patient's troponin I level is mildly elevated and abnormal echocardiogram was noted yesterday. This consultation was ordered to assist in her cardiac management. Of note, the patient follows with Dr. Ruddy Venegas in our outpatient clinic. The patient was in her usual state of health until the day prior to presentation. [place] she [place] on to her back, had developed intermediate discomfort which became intractable. Troponin I levels were drawn and found to be mildly elevated. However, this is a chronic finding throughout most of her hospitalizations. At no time, did the patient experience her typical angina pectoris. Prior to her fall, the patient was able to carry on with activities of daily life and climb a flight of stairs without exertional angina pectoris. The patient's cardiac history began in March 2016 when a preoperative evaluation revealed an abnormal echocardiogram with mildly reduced ejection fraction of 45% with inferior wall motion abnormality. The patient then underwent a cardiac catheterization with Dr. Venegas. She was found to have a totally occluded proximal right coronary artery with a distal collateralization. She had a tight stenosis in the mid left circumflex. This was stented with a 3.5 x 15 mm bare-metal Integrity stent. Bare-metal stent was chosen as she had upcoming carotid surgery. There was also 30% stenosis at takeoff of the first diagonal branch and LAD. There is a 60% ostial stenosis of the small first diagonal branch. The patient's carotid surgery was postponed. She did undergo a full operative evaluation with Nereyda Aggarwal in our office in November. She did have a nuclear stress test performed on 12/16/2016, which revealed a large right coronary artery defect without evidence of ischemia. Ejection fraction was estimated at 31%. An echocardiogram performed in September of 2016 noted low ejection fraction of 45-50% with an inferior and inferolateral wall motion abnormality. Currently, the patient is resting comfortably in bed and without complaints. PAST MEDICAL HISTORY: 1. Coronary artery disease. 2. Mid LCX bare-metal stent - 04/06/2016. 3. Ischemic cardiomyopathy - 45%. 4. Inferior wall motion abnormality. 5. Chronically elevated troponin level. 6. Hypertension. 7. Hypercholesterolemia. 8. Carotid disease - 90% left internal carotid stenosis. 9. Chronic renal failure - on hemodialysis. 10. Diabetes mellitus. 11. GERD. 12. Obesity. 13. Depression/anxiety. MEDICATIONS: 1. Metoprolol tartrate 50 mg b.i.d. 2. Imdur 90 mg daily. 3. Aspirin 81 mg per day. 4. Lipitor 40 mg at bedtime. 5. Heparin 5000 units subQ q. 8 hours. 6. Zoloft 100 mg daily. 7. Claritin 10 mg per day. 8. Protonix 40 mg per day. 9. PhosLo 667 mg t.i.d. SOCIAL HISTORY: The patient is a . Denies tobacco and alcohol use. FAMILY HISTORY: No early coronary artery disease. REVIEW OF SYSTEMS: Ten-point review of systems is negative except for that described above. PHYSICAL EXAMINATION: GENERAL: This is a mildly obese white female, lying supine in bed without complaints. VITAL SIGNS: Blood pressure is 124/76 with a regular pulse of 72. Respiratory rate is 18. The patient is afebrile at 36.9 degrees Celsius. Saturations 92% on room air. HEENT: Negative. NECK: Supple with full carotid upstrokes. There are no carotid bruits. Jugular venous pressure is flat at 90 degrees. There is no thyromegaly. CARDIOVASCULAR: Reveals a regular rhythm with normal S1 and S2. Heart sounds are distant. No obvious murmurs. LUNGS: Clear without rales, rhonchi, or wheezes. ABDOMEN: Soft without bruits. EXTREMITIES: Reveal intact radial artery on the right. Fistula noted in the left upper extremity with a bruit. Trace pretibial edema is noted. LABORATORY DATA: CBC notes a hemoglobin of 10.9, hematocrit 33.8, white count 13.4, and platelet count 346,000. Electrolytes note a sodium of 136, potassium 4.4, chloride 97, bicarbonate 29, BUN 45, creatinine 7.1, and glucose 113. Troponin I levels were 0.145, 0.122, and 0.125. CKs were normal at 44 and 41 with MB fractions of 3.6 and 3.8 respectively. EKG notes sinus tachycardia and an old inferior myocardial infarction pattern. cap sewer is benign. Chest x-ray shows cardiomegaly. IMPRESSION: Ms. Gilbert was admitted with intractable back pain and found to have a mildly elevated troponin. As above, a mildly elevated troponin has been seen on nearly all of her recent hospitalizations. She has known coronary artery disease and the echocardiogram performed here is similar to one performed in September of this year. She had a nuclear stress test performed in November, which did note an inferior wall defect, but no evidence of ischemia. The patient is scheduled for a carotid endarterectomy with Dr. Jones on Tuesday. It was felt that she is an acceptable cardiac risk to proceed. PLAN: 1. Continue usual medications. 2. Stable for transfer off telemetry. 3. Acceptable cardiac risk for carotid endarterectomy. 4. Dr. Venegas to assume care tomorrow.
[2017-04-03] MEDS: LORATADINE 10 MG TAB PO SCH (21:30)
[2017-04-03] MEDS: INSULIN GLARGINE SOLOSTAR 100 UNITS/ML 3 ML PEN SC SCH (21:37)
[2017-04-03 23:23] VITALS: BP 113/58; PULSE 72; TEMP 36.9; O2SAT 94
[2017-04-04] VITALS (17 sets, daily range): BP systolic 98–159; BP diastolic 45–87; PULSE 56–75; TEMP 36.6–36.7; O2SAT 98
[2017-04-04] MEDS: HEPARIN SOD 5000 UNIT/0.5 ML CARP SQ SCH ×3 (05:52→20:47)
[2017-04-04] MEDS ORDERED: EPOETIN ALFA 10,000 UNITS/ML VIAL IV. SCH (08:00)
[2017-04-04] MEDS: TRIAMCINOLONE ACET 0.5% CR 15 GM TUBE EXT SCH ×2 (08:03→20:28)
[2017-04-04] MEDS: ISOSORBIDE MONONITRATE 30 MG TABCR PO SCH (08:04)
[2017-04-04] MEDS: PANTOprazole SOD 40 MG TAB PO SCH (08:04)
[2017-04-04] MEDS: ACETAMINOPHEN 500 MG TAB PO SCH ×3 (08:05→20:27)
[2017-04-04] MEDS: ATORVASTATIN 20 MG TAB PO SCH (08:06)
[2017-04-04] MEDS: ASPIRIN 81 MG ECTAB PO SCH (08:06)
[2017-04-04] MEDS: METOPROLOL TARTRATE 50 MG TAB PO SCH ×2 (08:06→20:28)
[2017-04-04] MEDS: SERTRALINE HCL 100 MG TAB PO SCH (08:07)
[2017-04-04] MEDS: CALCIUM ACETATE 667MG GELCAP PO SCH ×3 (08:07→17:00)
[2017-04-04] MEDS: LIDODERM (LIDOCAINE) PATCH 5% TD SCH (08:08)
[2017-04-04] MEDS: DIAZEPAM 2MG TAB PO SCH ×3 (08:13→20:30)
[2017-04-04] MEDS: FLUTICASONE PROPIONATE NA SPR 16 GM BTL SCH (08:14)
[2017-04-04 08:17] LABS: BUN/CREATININE RATIO 7.3 (10-20); CALCIUM 9.6 mg/dl (8.5-10.1); CREATININE 9.2 mg/dl (0.60-1.20); MAGNESIUM 2.5 mg/dl (1.8-2.4); PHOSPHORUS 8.8 mg/dl (2.5-4.9); POTASSIUM 4.3 mmol/L (3.5-5.1)
--- NOTE | 2017-04-04 15:19 | Dialysis Progress Note ---
Nephrology Dialysis Note Date of Service: Apr 04, 2017. Subjective 51 yo female with esrd who presented with diffuse muscle aches following a fall and did not have dialysis for about a week prior to admission. pts muscle aches are improving. tolerating po meds well. pt scared to have carotid surgery. seen on dialysis and tolerating fluid removal. no cramping. complaining of hip pain so difficult for her to walk. Objective Date Time Temp Pulse Resp B/P (MAP) Pulse Ox O2 Delivery O2 Flow Rate FiO2 04/04/17 15:08 36.6 59 116/68 (84) 04/04/17 15:00 61 98/52 04/04/17 14:45 62 111/64 04/04/17 14:30 61 107/45 04/04/17 14:15 56 110/56 04/04/17 14:00 58 118/60 04/04/17 13:45 57 115/50 04/04/17 13:30 60 129/70 04/04/17 13:15 64 122/75 04/04/17 13:00 58 115/67 04/04/17 12:45 63 132/76 04/04/17 12:30 65 143/81 04/04/17 12:15 70 139/79 04/04/17 12:00 75 125/87 04/04/17 11:45 36.7 75 125/87 (100) 04/04/17 08:00 Room Air 04/04/17 07:47 36.6 69 16 159/76 (103) 98 Room Air 04/04/17 00:00 Room Air 04/03/17 23:23 36.9 72 18 113/58 (76) 94 Room Air 04/03/17 16:00 Room Air Physical Exam: General-aaox3, obese Eyes-no scleral icterus ENT-mmm Neck-supple Lungs-cta Heart-regular to [place] with 2/6 systolic murmur Abdomen-bs+ s/nt/nd Extremities-no c/c/e Neuro-nonfocal Current Inpatient Medications Medications (Trade) Dose Ordered Sig/Bladimir Route Start Time Stop Time Status Last Admin Dose Admin Heparin Sodium (Porcine) (Heparin Sq 5000 Unit/0.5ml) 5,000 unit Q8 SQ 04/01/17 06:00 05/01/17 05:59 04/04/17 05:52 5,000 UNIT Ondansetron HCl (Zofran Inj) 4 mg Q6H PRN IV 04/01/17 01:45 05/01/17 01:44 04/03/17 00:05 4 MG Nitroglycerin (Nitrostat Tab) 0.4 mg UD PRN SL 04/01/17 01:45 05/01/17 01:44 Aspirin (Ecotrin Tab) 81 mg DAILY PO 04/02/17 08:00 05/02/17 08:59 04/04/17 08:06 81 MG Atorvastatin Calcium (Lipitor Tab) 40 mg QAM PO 04/01/17 09:00 05/01/17 08:59 04/04/17 08:06 40 MG Dicyclomine HCl (Bentyl Cap) 10 mg QID PRN PO 04/01/17 02:00 05/01/17 01:59 Fluticasone Propionate (Flonase Nasal [place]) 2 sprays DAILY NA 04/01/17 09:00 05/01/17 08:59 04/04/17 08:14 2 SPRAYS Insulin Glargine (Lantus Solostar Pen) 10 units QPM SC 04/01/17 21:00 05/01/17 20:59 04/03/17 21:37 10 UNITS Lorazepam (Ativan Tab) 0.5 mg DAILY PRN PO 04/01/17 02:00 05/01/17 01:59 Metoprolol Tartrate (Lopressor Tab) 50 mg BID PO 04/01/17 09:00 05/01/17 08:59 04/04/17 08:06 50 MG Pantoprazole Sodium (Protonix Tab) 40 mg QAM PO 04/01/17 09:00 05/01/17 08:59 04/04/17 08:04 40 MG Triamcinolone Acetonide (Kenalog 0.5% Crm) 1 appln BID EXT 04/01/17 09:00 05/01/17 08:59 04/04/17 08:03 1 APPLN Loratadine (Claritin Tab) 10 mg PM PO 04/01/17 21:00 05/01/17 20:59 04/03/17 21:30 10 MG Isosorbide Mononitrate (Imdur Ext Rel Tab) 90 mg QAM PO 04/01/17 09:00 05/01/17 08:59 04/04/17 08:04 90 MG Glucose (Glucose 40% Gel) 15-30 GRAMS 15 GRAMS... UD PRN PO 04/01/17 02:30 05/01/17 02:29 Glucose (Glucose Chew Tab) 4-8 Tablets 4 Tabl... UD PRN PO 04/01/17 02:30 05/01/17 02:29 Dextrose (Dextrose 50% 50ML Syringe) 25-50ML OF 50% DW IV FOR... UD PRN IV 04/01/17 02:30 05/01/17 02:29 Glucagon (Glucagon Inj) 1 mg UD PRN SQ 04/01/17 02:30 05/01/17 02:29 Sodium Chloride ([place] Nasal [place]) 1 sprays PRN PRN NA 04/01/17 04:30 05/01/17 04:29 04/01/17 06:13 1 SPRAYS Miscellaneous (Iv Fluids Completed) 1 ea PRN PRN N/A 04/01/17 04:45 04/01/18 04:44 Sertraline HCl (Zoloft Tab) 100 mg QAM PO 04/04/17 08:00 05/01/17 20:59 04/04/17 08:07 100 MG Diazepam (Valium Tab) 2 mg TID PO 04/03/17 14:00 05/03/17 13:59 04/04/17 08:13 2 MG Acetaminophen (Tylenol Tab) 1,000 mg TID PO 04/03/17 14:00 05/03/17 13:59 04/04/17 08:05 1,000 MG Lidocaine (Lidoderm Patch 5%) 1 patch QAM TD 04/03/17 12:00 05/03/17 11:59 04/04/17 08:08 1 PATCH Miscellaneous (Remove Lidoderm Patch) 1 ea DAILY@21 N/A 04/03/17 21:00 05/03/17 20:59 04/03/17 21:00 1 EA Calcium Acetate (Phoslo Cap) 2,001 mg TIDM PO 04/04/17 08:00 05/01/17 07:29 04/04/17 08:07 2,001 MG Epoetin Christopher (Procrit Inj) 10,000 units TODAY@0800 IV. 04/04/17 08:00 04/04/17 18:00 Last 24 Hours Test 04/03/17 21:34 04/04/17 06:55 Bedside Glucose 166 mg/dl Sodium Level 135 mmol/L Potassium Level 4.3 mmol/L Chloride Level 96 mmol/L Carbon Dioxide Level 26 mmol/L Anion Gap 13.0 mmol/L Blood Urea Nitrogen 68 mg/dl Creatinine 9.20 mg/dl Est Creatinine Clear Calc Drug Dose 9.1 ml/min Estimated GFR () 5.2 Estimated GFR (Non- 4.5 BUN/Creatinine Ratio 7.3 Random Glucose 142 mg/dl Calcium Level 9.6 mg/dl Phosphorus Level 8.8 mg/dl Magnesium Level 2.5 mg/dl Assessment & Plan ESRD-pt had dialysis on tuesday and tuesday and again seen on dialysis today. clearance of toxins has been optimized. volume status is good. k is also good. access working well. OSIRIS-phos is chronically high and have increased her phosphate binder to 3 with meals while inpatient. pt will need new prescriptions of meds when she eventually goes home. unclear if she will start taking her meds when she eventually goes home. has a history of non-compliance despite educations, encouragement, family meetings. ok from renal perspective to go home when medically cleared.
[2017-04-04] MEDS: LORATADINE 10 MG TAB PO SCH (20:26)
[2017-04-04] MEDS: INSULIN GLARGINE SOLOSTAR 100 UNITS/ML 3 ML PEN SC SCH (20:46)
--- NOTE | 2017-04-04 22:16 | Progress Note ---
Medicine Progress Note Date & Time of Visit: Apr 04, 2017 at 17:05. Subjective tolerating PO Valium and Tylenol have helped her pain overnight she feels she is moving more. She is OK to proceed with surgery tomorrow. Denies CP or SOB Objective Last 8 Hrs Date Time Temp Pulse Resp B/P (MAP) Pulse Ox O2 Delivery O2 Flow Rate FiO2 04/04/17 16:04 Room Air 04/04/17 15:08 36.6 59 116/68 (84) 04/04/17 15:00 61 98/52 04/04/17 14:45 62 111/64 04/04/17 14:30 61 107/45 04/04/17 14:15 56 110/56 04/04/17 14:00 58 118/60 04/04/17 13:45 57 115/50 04/04/17 13:30 60 129/70 04/04/17 13:15 64 122/75 04/04/17 13:00 58 115/67 04/04/17 12:45 63 132/76 04/04/17 12:30 65 143/81 04/04/17 12:15 70 139/79 04/04/17 12:00 75 125/87 04/04/17 11:45 36.7 75 125/87 (100) Physical Exam: GEN: morbid obesity, in no acute distress, alert and appropriate, receiving HD HEENT: NC/AT, pupils equal and reactive bilaterally, normal sclerae, MMM CARDIO: reg rate, S1/2 heard without m/g/r LUNGS: CTA bilaterally, no crackles, rales or wheezes, good diaphragmatic excursion ABD: soft, non-tender, non-distended, no rebound or guarding, +BS BACK: paraspinal TTP in thoracic and lumbar spine EXTREMITY: RP and DP palpable 2+ bilat, no LE swelling or edema, extremities are warm and well-perfused NEURO: CN 2-12 grossly intact, no gross focal deficits MUSC: 5/5 strength throughout, moves all extremities equally SKIN: warm and dry Laboratory Results: 04/03/17 05:21 04/04/17 06:55 Test 03/31/17 21:00 04/01/17 10:25 04/01/17 14:19 04/03/17 05:21 Immature Granulocyte % (Auto) 0.2 % White Blood Count 13.35 K/uL (4.8-10.8) Red Blood Count 3.41 M/uL (4.2-5.4) 3.52 M/uL (4.2-5.4) Hemoglobin 10.3 g/dL (12.0-16.0) Hematocrit 31.4 % (37-47) Mean Corpuscular Volume 92.1 fL (80-100) 96.0 fL (80-100) Mean Corpuscular Hemoglobin 30.2 pg (25-34) 31.0 pg (25-34) Mean Corpuscular Hemoglobin Concent 32.8 g/dl (32-36) 32.2 g/dl (32-36) Platelet Count 368 K/uL (130-400) Mean Platelet Volume 11.2 fL (7.4-10.4) 11.2 fL (7.4-10.4) Neutrophils (%) (Auto) 77.2 % Lymphocytes (%) (Auto) 14.6 % Monocytes (%) (Auto) 7.2 % Eosinophils (%) (Auto) 0.7 % Basophils (%) (Auto) 0.1 % Neutrophils # (Auto) 10.29 K/uL (1.4-6.5) Lymphocytes # (Auto) 1.95 K/uL (1.2-3.4) Monocytes # (Auto) 0.96 K/uL (0.11-0.59) Eosinophils # (Auto) 0.10 K/uL (0-0.5) Basophils # (Auto) 0.02 K/uL (0-0.2) Immature Granulocyte # (Auto) 0.03 K/uL (0.00-0.02) Total Bilirubin 0.4 mg/dl (0.2-1) Aspartate Amino Transf (AST/SGOT) 7 U/L (15-37) Alanine Aminotransferase (ALT/SGPT) 12 U/L (12-78) Alkaline Phosphatase 67 U/L (45-117) Total Protein 8.2 gm/dl (6.4-8.2) Albumin 2.8 gm/dl (3.4-5.0) Globulin 5.4 gm/dl (2.5-4.0) Albumin/Globulin Ratio 0.5 (0.9-2) Urine Color YELLOW Urine Appearance CLEAR (CLEAR) Urine pH 7.0 (4.5-7.5) Urine Specific [place] 1.017 (1.000-1.030) Urine Protein 3+ (NEG) Urine Glucose (UA) 1+ (NEG) Urine Ketones NEG (NEG) Urine Occult Blood TRACE (NEG) Urine Nitrite NEG (NEG) Urine Bilirubin NEG (NEG) Urine Urobilinogen NEG (NEG) Urine Leukocyte Esterase SMALL (NEG) Urine WBC (Auto) 10-30 /hpf (0-5) Urine RBC (Auto) 0-4 /hpf (0-4) Urine Hyaline Casts (Auto) 1-5 /lpf (0-5) Urine Epithelial Cells (Auto) >30 /lpf (0-5) Urine Bacteria (Auto) 1+ (NEG) Total Creatine Kinase 41 U/L (26-192) Creatine Kinase MB 3.8 ng/ml (0.5-3.6) Creatine Kinase MB Ratio 9.3 (0-3.0) Troponin I 0.125 ng/ml (0-0.045) RDW Standard Deviation 49.9 fL (36.4-46.3) RDW Coefficient of Variation 14.3 % (11.5-14.5) Test 04/04/17 06:55 04/04/17 20:43 Anion Gap 13.0 mmol/L (3-11) Est Creatinine Clear Calc Drug Dose 9.1 ml/min Estimated GFR () 5.2 Estimated GFR (Non- 4.5 BUN/Creatinine Ratio 7.3 (10-20) Calcium Level 9.6 mg/dl (8.5-10.1) Phosphorus Level 8.8 mg/dl (2.5-4.9) Magnesium Level 2.5 mg/dl (1.8-2.4) Bedside Glucose 141 mg/dl (70-90) Date/Time Source Procedure Growth Status 04/01/17 10:25 Urine , Clean Catch Urine Culture - Final MORE THAN THREE TYPES OF ORGANISMS MN... Complete Last 24 Hours Test 04/03/17 21:34 04/04/17 06:55 Bedside Glucose 166 mg/dl Sodium Level 135 mmol/L Potassium Level 4.3 mmol/L Chloride Level 96 mmol/L Carbon Dioxide Level 26 mmol/L Anion Gap 13.0 mmol/L Blood Urea Nitrogen 68 mg/dl Creatinine 9.20 mg/dl Est Creatinine Clear Calc Drug Dose 9.1 ml/min Estimated GFR () 5.2 Estimated GFR (Non- 4.5 BUN/Creatinine Ratio 7.3 Random Glucose 142 mg/dl Calcium Level 9.6 mg/dl Phosphorus Level 8.8 mg/dl Magnesium Level 2.5 mg/dl Assessment & Plan 51 yo F s/p fall in [place] three days ago (was on hands and knees on the beach and tipped over on her side). Elevated troponins without chest pain or shortness of breath thought 2/2 probable diastolic dysfunction in setting of noncompliance and ESRD, also noncompliant with HD. TTE ordered revealing wall motion abnormalities consistent with poss inferior [place]. Cont tele monitoring at this time and consult cardiology for further evaluation especially as she is slated to undergo a carotid revascularization soon. Currently PT recommends rehabilitation when she leaves the hospital-CM aware and will place referral-- pt is willing to go. Per Cardiology evaluation, wall motion abnormalities are old and she is OK to proceed to carotid surgery from a cardiac standpoint when ready. She was transferred back to [facility] and after discussion with Dr. Jones today, he would like to proceed with her carotid surgery. NPO p MN. Received HD today in preparation. 1. Muscle pain/back strain-no fractures/dislocations on admission imaging CTs. Pain controlled with scheduled Valium and Tylenol. Encouraged ambulation- appears to have low motivation and just wants to sleep. Rehab referral to be placed and she was accepted to [facility], which is now delayed based on her surgery plans tomorrow. Kpad ordered for comfort. 2. Elevated troponin-TTE revealed a large sized apical, septal, inferior, and posterior wall motion abnormality with HK of the segments, LV systolic function is mildly reduced, EF is 46%, GRade I DD seen. Systolic dysfunction is actually old and she is compensated with no new symptoms of concern for acute process. Appreciate Dr. Lay evaluation. These are all chronic issues. She will be transferred back to [facility] while awaiting rehab placement. 3. Chronic systolic heart failure-compensated, cont current medical therapy with no changes. Of note, patient has been noncompliant with all medications for the past 6-12 months as outaptient. Watch for hypotension, etc. 4. ESRD-cont HD per Nephrology. 5. Weakness-multifactorial in setting of noncompliance with medications for multiple comorbidities and noncompliance with dialysis. Obese, deconditioned and not motivated to improve. For now, plans to go to rehab on discharge. 6. DMII with retinopathy-ISS/Lantus, controlled. 7. HTN-cont with home meds. 8. PAD-For carotid surgery tomorrow. On ASA and statin. 9. Noncompliance.--patient has not been taking her medications for over 1 year. Restarted on meds, however, will watch closely for side effects, etc. This is important in setting of upcoming vascular surgery which puts her a higher risk of perioperative mortality. Also has been noncompliant with inpatient medications. 10. Fatigue 2/2 insomnia today--changed sertraline dosing to am instead of pm to help with this. Likely mutlifactorial from renal failure undergoing HD, obesity with deconditioning, meds, etc DVT proph-Heparin FULL CODE Dispo-to surgery in am, then reevaluate with PT/OT Sonja Turcios DO [facility] Hospitalist Consultants: Vascular Surgery-[facility] Cardiology-[facility] Nephro-[facility] Current Inpatient Medications: Current Inpatient Medications Medications (Trade) Dose Ordered Sig/Bladimir Route Start Time Stop Time Status Last Admin Dose Admin Heparin Sodium (Porcine) (Heparin Sq 5000 Unit/0.5ml) 5,000 unit Q8 SQ 04/01/17 06:00 05/01/17 05:59 04/04/17 05:52 5,000 UNIT Ondansetron HCl (Zofran Inj) 4 mg Q6H PRN IV 04/01/17 01:45 05/01/17 01:44 04/03/17 00:05 4 MG Nitroglycerin (Nitrostat Tab) 0.4 mg UD PRN SL 04/01/17 01:45 05/01/17 01:44 Aspirin (Ecotrin Tab) 81 mg DAILY PO 04/02/17 08:00 05/02/17 08:59 04/04/17 08:06 81 MG Atorvastatin Calcium (Lipitor Tab) 40 mg QAM PO 04/01/17 09:00 05/01/17 08:59 04/04/17 08:06 40 MG Dicyclomine HCl (Bentyl Cap) 10 mg QID PRN PO 04/01/17 02:00 05/01/17 01:59 Fluticasone Propionate (Flonase Nasal [place]) 2 sprays DAILY NA 04/01/17 09:00 05/01/17 08:59 04/04/17 08:14 2 SPRAYS Insulin Glargine (Lantus Solostar Pen) 10 units QPM SC 04/01/17 21:00 05/01/17 20:59 04/03/17 21:37 10 UNITS Lorazepam (Ativan Tab) 0.5 mg DAILY PRN PO 04/01/17 02:00 05/01/17 01:59 Metoprolol Tartrate (Lopressor Tab) 50 mg BID PO 04/01/17 09:00 05/01/17 08:59 04/04/17 08:06 50 MG Pantoprazole Sodium (Protonix Tab) 40 mg QAM PO 04/01/17 09:00 05/01/17 08:59 04/04/17 08:04 40 MG Triamcinolone Acetonide (Kenalog 0.5% Crm) 1 appln BID EXT 04/01/17 09:00 05/01/17 08:59 04/04/17 08:03 1 APPLN Loratadine (Claritin Tab) 10 mg PM PO 04/01/17 21:00 05/01/17 20:59 04/03/17 21:30 10 MG Isosorbide Mononitrate (Imdur Ext Rel Tab) 90 mg QAM PO 04/01/17 09:00 05/01/17 08:59 04/04/17 08:04 90 MG Glucose (Glucose 40% Gel) 15-30 GRAMS 15 GRAMS... UD PRN PO 04/01/17 02:30 05/01/17 02:29 Glucose (Glucose Chew Tab) 4-8 Tablets 4 Tabl... UD PRN PO 04/01/17 02:30 05/01/17 02:29 Dextrose (Dextrose 50% 50ML Syringe) 25-50ML OF 50% DW IV FOR... UD PRN IV 04/01/17 02:30 05/01/17 02:29 Glucagon (Glucagon Inj) 1 mg UD PRN SQ 04/01/17 02:30 05/01/17 02:29 Sodium Chloride ([place] Nasal [place]) 1 sprays PRN PRN NA 04/01/17 04:30 05/01/17 04:29 04/01/17 06:13 1 SPRAYS Miscellaneous (Iv Fluids Completed) 1 ea PRN PRN N/A 04/01/17 04:45 04/01/18 04:44 Sertraline HCl (Zoloft Tab) 100 mg QAM PO 04/04/17 08:00 05/01/17 20:59 04/04/17 08:07 100 MG Diazepam (Valium Tab) 2 mg TID PO 04/03/17 14:00 05/03/17 13:59 04/04/17 15:52 2 MG Acetaminophen (Tylenol Tab) 1,000 mg TID PO 04/03/17 14:00 05/03/17 13:59 04/04/17 15:52 1,000 MG Lidocaine (Lidoderm Patch 5%) 1 patch QAM TD 04/03/17 12:00 05/03/17 11:59 04/04/17 08:08 1 PATCH Miscellaneous (Remove Lidoderm Patch) 1 ea DAILY@21 N/A 04/03/17 21:00 05/03/17 20:59 04/03/17 21:00 1 EA Calcium Acetate (Phoslo Cap) 2,001 mg TIDM PO 04/04/17 08:00 05/01/17 07:29 04/04/17 08:07 2,001 MG Epoetin Christopher (Procrit Inj) 10,000 units TODAY@0800 IV. 04/04/17 08:00 04/04/17 18:00 Cefazolin Sodium 1000 mg/Dextrose 55 ml @ 100 mls/hr PREOP IV 04/05/17 06:00 04/05/17 15:59
[2017-04-05] VITALS (7 sets, daily range): BP systolic 125–157; BP diastolic 59–87; PULSE 50–68; TEMP 36.5–36.8; O2SAT 93–99
[2017-04-05 05:56] LABS: HEMATOCRIT 34.1 % (37-47); MEAN CELL VOLUME 97.2 fL (80-100); MEAN CORPUSCULAR HEMOGLOBIN 29.9 pg (25-34); MEAN CORPUSCULAR HGB CONC 30.8 g/dl (32-36); MEAN PLATELET VOLUME 10.5 fL (7.4-10.4); PLATELET COUNT 422 K/uL (130-400); RED BLOOD COUNT 3.51 M/uL (4.2-5.4); WHITE BLOOD COUNT 10.29 K/uL (4.8-10.8)
[2017-04-05] MEDS: HEPARIN SOD 5000 UNIT/0.5 ML CARP SQ SCH ×2 (05:58→21:52)
[2017-04-05] MEDS ORDERED: CEFAZOLIN IV 1,000 MG in DEXTROSE 5% 50ML 50 ML IV SCH (06:00)
--- NOTE | 2017-04-05 06:06 | Surgery Consultation ---
Consultation Date of Service Apr 05, 2017. Chief Complaint Left carotid stenosis, severe History of Present Illness The patient is a 51 year old female who has severe left internal carotid artery stenosis over 90% and due to risk of CVA she had previously been advised to consider undergoing carotid endarterectomy. Unfortunately, due to other medical issues this has been put on hold. At this point, she denies any symptoms related to cerebrovascular insufficiency including amaurosis, unilateral lower extremity weakness, numbness or tingling, difficulty speaking or swallowing, facial droop, confusion or disorientation or other complaints. It was recommended that she have the endarterectomy during this hospital stay. Vitals Vital Signs Past 12 Hours Date Time Temp Pulse Resp B/P (MAP) Pulse Ox O2 Delivery O2 Flow Rate FiO2 04/05/17 00:07 36.5 63 18 145/76 (99) 93 Room Air 04/05/17 00:00 Room Air 04/04/17 20:23 67 126/67 (86) Allergies Coded Allergies: Adhesives (Verified Allergy, Mild, RASH, SORES, 01/18/17) NO KNOWN DRUG ALLERGIES (Verified Allergy, Mild, ., 01/18/17) Latex1 -Allergic Contact Dermititis (Verified Allergy, Unknown, rash, ) Pollen Extract (Verified Allergy, Unknown, rash, 03/22/17) Home Medications Scheduled Aspirin (Aspirin 81), 1 TAB PO DAILY Atorvastatin (Lipitor), 40 MG PO QAM Calcium Acetate (Phoslo 667 Mg), 1 CAP PO TID Fluticasone Propionate (Nasal) (Allergy Nasal [place] 24 Ho), 1 SPRAY N/A DAILY Insulin Glargine (Lantus Solostar), 10 UNITS SC QPM Isosorbide Mononitrate (Isosorbide Mononitrate ER), 60 MG PO QAM Isosorbide Mononitrate Ext Rel (Imdur Ext Rel), 30 MG PO QAM Loratadine (Claritin Childrens), 2 TAB PO QPM Metoprolol Tartrate (Lopressor) (Lopressor), 1 TAB PO BID Pantoprazole (Protonix), 40 MG PO QAM Sertraline Hcl (Zoloft), 100 MG PO HS Triamcinolone Acet (Triamcinolone Acetonide), 1 APPLN TOP BID [Percocet], 1 TAB PO PRN Scheduled PRN Dicyclomine Hcl (Dicyclomine Hcl), 1 MG PO QID PRN for CRAMPING Lorazepam (Ativan), 0.5 MG PO DAILY PRN for Anxiety Problem List Medical Problems: (1) Allergic rhinitis (2) C. difficile colitis (3) CAD (coronary artery disease) (4) Carotid stenosis (5) Diabetic foot infection (6) DM type 2 (diabetes mellitus, type 2) (7) Dyslipidemia (8) ESRD (end stage renal disease) on dialysis (9) Fall (10) GERD (gastroesophageal reflux disease) (11) HTN (hypertension) (12) HX OF PAST NONCOMPLIANCE (13) Ischemic cardiomyopathy (14) Morbid obesity (15) Osteomyelitis (16) Tobacco use disorder (17) UGIB (upper gastrointestinal bleed) (18) Weakness Surgical Problems: (1) Hemodialysis access, AV graft Surgical / Medical History Hx Abdominal Surgery: No Hx Cancer Surgery: No Hx Thoracic Surgery: No Hx Orthopedic: No Hx Urinary Tract Surgery: No Past Medical/Surgical History: Depression, Diabetes, Heart Disease, High Cholesterol, Hypertension, Kidney Disease, Reflux Family History Diabetes mellitus FATHER MOTHER Heart disease FATHER MOTHER Hypertension FATHER MOTHER Kidney disease GRANDMOTHER Social History Smoking Status: Never Smoker Hx Tobacco Use In Past Year?: No (QUIT 2013) Hx Alcohol Use - Type & Amnt: No Hx Substance Use -Type & Amnt: No Review of Systems Constitutional: No chills, No diaphoresis, No fever, No malaise, No weakness, No weight gain, No weight loss, No sweats, No fatigue, No problem reported Eyes: No discharge, No blurred vision, No double vision, No eye pain, No tearing, No itching, No photophobia, No redness, No visual changes, No dryness, No irritation, No problem reported ENMT: No dental pain, No loss of hearing, No epistaxis, No ear discharge, No ear pain, No gum swelling, No mouth pain, No mouth swelling, No nasal congestion , No nasal pain, No rhinorrhea, No stridor, No tinnitus, No sore throat, No throat swelling, No problem reported Respiratory: No cough, No cyanosis, No [place], No hemoptysis, No orthopnea, No PND , No short of breath, No sputum production, No stridor, No wheezing, No dyspnea , No problem reported Cardiovascular: No chest pain, No chest tightness, No chest pressure, No palpitations, No syncope, No diaphoresis, No edema, No intermittent claudication , No orthopnea, No cyanosis, No mumur, No lightheadedness, No paroxysmal nocturnal dyspnea, No problem reported Gastrointestinal: + heartburn, + indigestion Genitourinary - Female: + problem reported (renal failure), No dysmenorrhea, No dysuria, No hematuria, No hesitancy, No menorrhagia, No metrorrhagia, No , No rash, No urinary frequency, No urinary incontinence, No urinary retention, No urinary urgency, No vulvadynia, No vaginal bleeding, No vaginal discharge, No vaginal itching, No breast problems Musculoskeletal: No back pain, No gout, No joint pain, No joint swelling, No muscle pain, No muscle stiffness, No muscle weakness, No neck pain, No problem reported Psychiatric: + depression, No anxiety, No alcohol abuse, No auditory hallucinations, No drug abuse, No homicidal ideation, No mood changes, No suicidal ideation, No visual hallucinations, No problem reported Physical Exam Constitutional: General Apperance: overweight Level of Distress: NAD Ambulation: ambulating normally Psychiatric: Mental Status: active & alert, normal mood, normal affect Orientation: oriented except where noted, to time, to place, to person Memory: recent memory normal, remote memory normal Neck: supple Lungs: Auscultation: breath sounds normal Cardiovascular: Heart Auscultation: RRR Peripheral Pulses: Carotid Pulse: normal on the left, normal on the right Brachial Pulses: normal on the left, normal on the right Radial Pulse: normal on the left, normal on the right Femoral Pulse: normal on the left, normal on the right Abdomen: Inspection & Palpation: soft Musculoskeletal: normal Extremities: Upper Right: no cyanosis, no edema, no varicosities, no palpable cord, no clubbing, no ulcers, no mottling Upper Left: no cyanosis, no edema, no palpable cord, no clubbing, no ulcers , no mottling Lower Right: no cyanosis, no edema, no varicosities, no palpable cord, no clubbing, no ulcers, no mottling Lower Left: no cyanosis, no edema, no varicosities, no palpable cord, no clubbing, no ulcers, no mottling Neurologic: Cranial Nerves: grossly intact Sensation: grossly intact Assessment and Plan Imp: Left internal carotid artery stenosis Plan: Recommended to undergo a left CEA. I have discussed the risks options and benefits of the procedure with the patient. The patient understands the risks options and benefits and agrees to the procedure.
[2017-04-05 06:38] LABS: BUN/CREATININE RATIO 6.8 (10-20); CALCIUM 9.8 mg/dl (8.5-10.1); CREATININE 6.8 mg/dl (0.60-1.20); MAGNESIUM 2.3 mg/dl (1.8-2.4); PHOSPHORUS 7.9 mg/dl (2.5-4.9); POTASSIUM 4.2 mmol/L (3.5-5.1)
[2017-04-05] MEDS ORDERED: THROMBIN FOR SOLN 20000 UNIT KIT ONE (07:00)
[2017-04-05] MEDS: BUPIVACAINE/EPINEPHRINE 0.5% MPF 1:200,000 10 ML VIAL ONE ×2 (07:00→07:57)
[2017-04-05] MEDS ORDERED: GELATIN SPONGE 12-7MM ONE (07:00)
[2017-04-05] MEDS ORDERED: LIDOCAINE HCL 1% 20 ML VIAL ONE (07:00)
[2017-04-05] MEDS ORDERED: CEFAZOLIN SOD 1 GM VIAL ONE (07:01)
[2017-04-05] MEDS ORDERED: HEPARIN SOD (PORCINE) 1000 UNIT/ML 10 ML VIAL ONE (07:01)
[2017-04-05] MEDS: METOPROLOL TARTRATE 50 MG TAB PO SCH ×2 (07:02→21:53)
[2017-04-05] MEDS ORDERED: BUPIVACAINE/EPINEPHRINE 0.25% 10 ML VIAL ONE (07:57)
[2017-04-05] MEDS: TRIAMCINOLONE ACET 0.5% CR 15 GM TUBE EXT SCH ×2 (08:00→21:52)
--- NOTE | 2017-04-05 10:39 | [facility] Post Operative Brief Note ---
Immediate Operative Summary Operative Date Apr 05, 2017. Pre-Operative Diagnosis Left internal carotid artery stenosis Post-Operative Diagnosis Left internal carotid artery stenosis Procedure(s) Performed Left Carotid Endarterectomy Surgeon Dr. Jones Brine Process Operator Surgeon(s) Cuca Villanueva PA-C Estimated Blood Loss 80 Findings severe stenosis of left internal carotid artery Specimens A. Left carotid plaque Anesthesia Gen Complication(s) None Disposition Recovery Room / PACU
[2017-04-05] MEDS ORDERED: OXYCODONE/ACETAMINOPHEN 5-325 TAB PO PRN (10:45)
--- NOTE | 2017-04-05 10:49 | [facility] Operative Report ---
Operative Report Operative Date Apr 05, 2017. Pre-Operative Diagnosis Left internal carotid artery stenosis Post-Operative Diagnosis Left internal carotid artery stenosis Procedure(s) Performed Left Carotid Endarterectomy Surgeon Dr. Jones Whiting Can Worker Surgeon(s) El Kay MD, Cuca Villanueva PA-C Estimated Blood Loss 80 Findings Patient had a severely calcified plaque. Patient had good backbleeding from the internal carotid and good inflow from the common carotid patient also had good backbleeding from the external carotid. The vagus nerve was identified and protected the answer cervicalis was also identified and protected Specimens A. Left carotid plaque Anesthesia Gen Complication(s) None Disposition Recovery Room / PACU Indications 51 year old female who has severe left internal carotid artery stenosis over 90 % and due to risk of CVA she had previously been advised to consider undergoing carotid endarterectomy. Unfortunately, due to other medical issues this has been put on hold. At this point, she denies any symptoms related to cerebrovascular insufficiency including amaurosis, unilateral lower extremity weakness, numbness or tingling, difficulty speaking or swallowing, facial droop , confusion or disorientation or other complaints. It was recommended that she have the endarterectomy during this hospital stay. Description of Procedure The patient was brought to the operating room, where an arterial line was placed and general anesthesia was secured. The Left neck was prepped and sterilely draped. An oblique incision was made along the anterior border of the left sternocleidomastoid muscle. The platysma was divided and dissection was done down to the carotid sheath. The facial vein was doubly ligated and divided exposing the carotid bifurcation. The vagus nerve and XII nerve were identified and kept free from dissection and retraction. The internal, external, and common carotid arteries were dissected free proximally and distally. 7000 Units of Heparin was given intravenously. The internal carotid as well as common carotid vessels were encircled with vessel loops. Once the heparin was allowed to circulate for approximately 5 minutes, clamps were placed starting with the internal carotid and common carotid and external carotid. An anterior arteriotomy was made on the common carotid artery using an 11 blade. Bello scissors was used to extend the arteriotomy through the plaque on to the distal soft internal carotid artery. The plaque was heavily calcified, ulcerated, and nearly occlusive. A shunt was then inserted into the into the internal carotid artery and revealed good backbleeding. The proximal end of the shunt was then inserted into the common carotid artery and secured in place. The Doppler and attached to the shunt was turned on and revealed good flow through the shunt. A [place] elevator was used to create an endarterectomy plane. The proximal endpoint was created using Bello scissors as well as a distal endpoint was created with the Bello scissors. The plaque was freed out of the external carotid artery.With downward retraction on the plaque, a smooth distal endpoint was created. All debris was meticulously debrided from the inside of the lumen and confirmed with instillation of heparinized saline. Once endarterectomy was completed, an Aquacel patch was then cut to the appropriate size and sewn into internal carotid artery using a PTFE 6-0 sutures starting from the proximal corner of the arteriotomy at the tip of the internal carotid artery. Before the patch was completed, the shunt was pulled and all the arteries were backbled extruding any air and debris. The patch was then completed. The external carotid clamp was removed first, followed by the common carotid artery clamp, and finally the internal carotid artery clamp, restoring blood flow to the brain. A repair stich 6-0 Prolene sutures was used to achieve hemostasis as well as thrombin soaked gel foam. Meticulous hemostasis was secured. The wound was then closed in multiple layers using 3-0 Vicryl suture then a 4-0 Vicryl subcutaneous layer closing the skin. Dermabond was applied over the incision. The patient tolerated the procedure well and was extubated on table. The patient was moving all four extremities to command prior to and upon transfer to the recovery room. Dr. Jones was present and scrubbed for the entirety of this case I, Dr. Jones was present and scrubbed for the entire procedure. I attest to the content of the Intraoperative Record and any orders documented therein. Any exceptions are noted below.
[2017-04-05] MEDS ORDERED: ATROPINE SULFATE 0.1 MG/ML 5ML SYR IV PRN (11:15)
[2017-04-05] MEDS ORDERED: EpHEDrine SULFATE INJ 50 MG/ML AMP IV PRN (11:15)
[2017-04-05] MEDS ORDERED: HYDROmorphone INJ 1 MG/ML SYR IV PRN (11:15)
[2017-04-05] MEDS ORDERED: NALOXONE HCL 0.4 MG/1 ML VIAL/CARP IV PRN (11:15)
[2017-04-05] MEDS ORDERED: PROMETHAZINE HCL INJ 12.5 MG in SODIUM CHLORIDE 0.9% 50ML 50 ML IV PRN (11:15)
[2017-04-05] MEDS ORDERED: LABETALOL HCL IV 5 MG/ML 20ML IV PRN (11:15)
[2017-04-05] MEDS ORDERED: ONDANSETRON INJ 2 MG/ML 2 ML VIAL IV PRN (11:15)
[2017-04-05] MEDS: CEFAZOLIN IV 1,000 MG in DEXTROSE 5% 50ML 50 ML IV SCH ×2 (11:25→18:44)
--- NOTE | 2017-04-05 11:54 | Anesthesiology Progress Note ---
Anesthesia Post Op Note Date & Time Apr 05, 2017 at 11:54 Vital Signs Pain Intensity: 0 Vital Signs Past 12 Hours Date Time Temp Pulse Resp B/P (MAP) Pulse Ox O2 Delivery O2 Flow Rate FiO2 04/05/17 11:40 57 20 111/60 97 Nasal Cannula 2 04/05/17 11:30 57 20 123/80 96 Nasal Cannula 2 04/05/17 11:20 57 20 131/64 100 Oxymask 10 04/05/17 11:10 55 16 144/75 100 Oxymask 10 04/05/17 11:00 36 61 16 153/68 100 Oxymask 10 04/05/17 07:06 36.7 73 18 176/95 (122) 100 Room Air 04/05/17 06:36 36.8 68 16 157/87 (110) 96 Room Air 04/05/17 00:07 36.5 63 18 145/76 (99) 93 Room Air 04/05/17 00:00 Room Air Notes Mental Status: alert / awake / arousable, participated in evaluation Pt Amnestic to Procedure: Yes Nausea / Vomiting: adequately controlled Pain: adequately controlled Airway Patency, RR, SpO2: stable & adequate BP & HR: stable & adequate Hydration State: stable & adequate Anesthetic Complications: no major complications apparent
[2017-04-05] MEDS: ASPIRIN 81 MG ECTAB PO SCH (15:22)
[2017-04-05] MEDS: ISOSORBIDE MONONITRATE 30 MG TABCR PO SCH (15:22)
[2017-04-05] MEDS: ATORVASTATIN 20 MG TAB PO SCH (15:23)
[2017-04-05] MEDS: CALCIUM ACETATE 667MG GELCAP PO SCH ×3 (15:25→16:45)
[2017-04-05] MEDS: FLUTICASONE PROPIONATE NA SPR 16 GM BTL SCH (15:25)
[2017-04-05] MEDS: LIDODERM (LIDOCAINE) PATCH 5% TD SCH (15:25)
[2017-04-05] MEDS: PANTOprazole SOD 40 MG TAB PO SCH (15:26)
[2017-04-05] MEDS: SERTRALINE HCL 100 MG TAB PO SCH (15:27)
[2017-04-05] MEDS: DIAZEPAM 2MG TAB PO SCH ×3 (15:27→21:00)
[2017-04-05] MEDS: ACETAMINOPHEN 500 MG TAB PO SCH ×3 (15:27→21:50)
[2017-04-05] MEDS: LORATADINE 10 MG TAB PO SCH (21:50)
[2017-04-05] MEDS: INSULIN GLARGINE SOLOSTAR 100 UNITS/ML 3 ML PEN SC SCH (21:51)
[2017-04-06] VITALS (21 sets, daily range): BP systolic 126–184; BP diastolic 57–100; PULSE 56–82; TEMP 36.4–36.9; O2SAT 92–100
[2017-04-06] MEDS: HEPARIN SOD 5000 UNIT/0.5 ML CARP SQ SCH ×2 (03:39→11:51)
[2017-04-06] MEDS ORDERED: EPOETIN ALFA 10,000 UNITS/ML VIAL IV. SCH (08:15)
[2017-04-06] MEDS: DIAZEPAM 2MG TAB PO SCH ×2 (08:35→14:00)
[2017-04-06] MEDS: CALCIUM ACETATE 667MG GELCAP PO SCH ×2 (08:35→11:42)
[2017-04-06] MEDS: METOPROLOL TARTRATE 50 MG TAB PO SCH (08:36)
[2017-04-06] MEDS: PANTOprazole SOD 40 MG TAB PO SCH (08:36)
[2017-04-06] MEDS: ISOSORBIDE MONONITRATE 30 MG TABCR PO SCH (08:37)
[2017-04-06] MEDS: ASPIRIN 81 MG ECTAB PO SCH (08:37)
[2017-04-06] MEDS: ATORVASTATIN 20 MG TAB PO SCH (08:37)
[2017-04-06] MEDS: SERTRALINE HCL 100 MG TAB PO SCH (08:37)
[2017-04-06] MEDS: LIDODERM (LIDOCAINE) PATCH 5% TD SCH (08:39)
[2017-04-06] MEDS: ACETAMINOPHEN 500 MG TAB PO SCH ×2 (08:39→14:11)
[2017-04-06] MEDS: TRIAMCINOLONE ACET 0.5% CR 15 GM TUBE EXT SCH (08:40)
[2017-04-06] MEDS: FLUTICASONE PROPIONATE NA SPR 16 GM BTL SCH (08:41)
--- NOTE | 2017-04-06 08:50 | Nephrology Progress Note ---
Nephrology Progress Note Date of Service: Apr 06, 2017. Subjective 51 yo female with esrd who presented with diffuse muscle aches following a fall and did not have dialysis for about a week prior to admission. pt underwent her carotid surgery while inpatient. went well. pt complaining of a rawness to the back of her throat but otherwise doing well. Objective Date Time Temp Pulse Resp B/P (MAP) Pulse Ox O2 Delivery O2 Flow Rate FiO2 04/06/17 07:40 36.4 68 18 179/100 (126) 100 3.0 04/06/17 04:00 36.8 70 18 140/82 (101) 99 Nasal Cannula 2.0 04/06/17 04:00 Nasal Cannula 04/06/17 00:05 92 Room Air 04/06/17 00:00 36.9 75 18 163/75 (104) 92 Room Air 04/05/17 20:00 99 Nasal Cannula 2.0 04/05/17 18:50 36.6 61 20 125/59 (81) 99 Nasal Cannula 2.0 04/05/17 16:00 Nasal Cannula 2.0 04/05/17 13:15 36.5 52 16 130/68 (88) 95 Room Air 04/05/17 12:44 36.5 50 16 130/65 (86) 96 Room Air 04/05/17 12:34 36.6 58 18 130/68 (88) 98 Nasal Cannula 2.0 04/05/17 12:00 36.5 53 20 113/53 95 Nasal Cannula 2 04/05/17 11:50 53 20 124/59 97 Nasal Cannula 2 04/05/17 11:40 57 20 111/60 97 Nasal Cannula 2 04/05/17 11:30 57 20 123/80 96 Nasal Cannula 2 04/05/17 11:20 57 20 131/64 100 Oxymask 10 04/05/17 11:10 55 16 144/75 100 Oxymask 10 04/05/17 11:00 36 61 16 153/68 100 Oxymask 10 Physical Exam: General-aaox3, obese Eyes-no scleral icterus ENT-mmm Neck-+left carotid incision Lungs-clear Heart-rrr with 2/6 systolic murmur Abdomen-bs+ s/nt/nd Extremities-no c/c/e Neuro-nonfocal Current Inpatient Medications Medications (Trade) Dose Ordered Sig/Bladimir Route Start Time Stop Time Status Last Admin Dose Admin Ondansetron HCl (Zofran Inj) 4 mg Q6H PRN IV 04/01/17 01:45 05/01/17 01:44 04/03/17 00:05 4 MG Nitroglycerin (Nitrostat Tab) 0.4 mg UD PRN SL 04/01/17 01:45 05/01/17 01:44 Aspirin (Ecotrin Tab) 81 mg DAILY PO 04/02/17 08:00 05/02/17 08:59 04/06/17 08:37 81 MG Atorvastatin Calcium (Lipitor Tab) 40 mg QAM PO 04/01/17 09:00 05/01/17 08:59 04/06/17 08:37 40 MG Dicyclomine HCl (Bentyl Cap) 10 mg QID PRN PO 04/01/17 02:00 05/01/17 01:59 Fluticasone Propionate (Flonase Nasal [place]) 2 sprays DAILY NA 04/01/17 09:00 05/01/17 08:59 04/06/17 08:41 2 SPRAYS Insulin Glargine (Lantus Solostar Pen) 10 units QPM SC 04/01/17 21:00 05/01/17 20:59 04/05/17 21:51 10 UNITS Lorazepam (Ativan Tab) 0.5 mg DAILY PRN PO 04/01/17 02:00 05/01/17 01:59 Metoprolol Tartrate (Lopressor Tab) 50 mg BID PO 04/01/17 09:00 05/01/17 08:59 04/06/17 08:36 50 MG Pantoprazole Sodium (Protonix Tab) 40 mg QAM PO 04/01/17 09:00 05/01/17 08:59 04/06/17 08:36 40 MG Triamcinolone Acetonide (Kenalog 0.5% Crm) 1 appln BID EXT 04/01/17 09:00 05/01/17 08:59 04/06/17 08:40 1 APPLN Loratadine (Claritin Tab) 10 mg PM PO 04/01/17 21:00 05/01/17 20:59 04/05/17 21:50 10 MG Isosorbide Mononitrate (Imdur Ext Rel Tab) 90 mg QAM PO 04/01/17 09:00 05/01/17 08:59 04/06/17 08:37 90 MG Glucose (Glucose 40% Gel) 15-30 GRAMS 15 GRAMS... UD PRN PO 04/01/17 02:30 05/01/17 02:29 Glucose (Glucose Chew Tab) 4-8 Tablets 4 Tabl... UD PRN PO 04/01/17 02:30 05/01/17 02:29 Dextrose (Dextrose 50% 50ML Syringe) 25-50ML OF 50% DW IV FOR... UD PRN IV 04/01/17 02:30 05/01/17 02:29 Glucagon (Glucagon Inj) 1 mg UD PRN SQ 04/01/17 02:30 05/01/17 02:29 Sodium Chloride ([place] Nasal [place]) 1 sprays PRN PRN NA 04/01/17 04:30 05/01/17 04:29 04/01/17 06:13 1 SPRAYS Miscellaneous (Iv Fluids Completed) 1 ea PRN PRN N/A 04/01/17 04:45 04/01/18 04:44 Sertraline HCl (Zoloft Tab) 100 mg QAM PO 04/04/17 08:00 05/01/17 20:59 04/06/17 08:37 100 MG Diazepam (Valium Tab) 2 mg TID PO 04/03/17 14:00 05/03/17 13:59 04/06/17 08:35 2 MG Acetaminophen (Tylenol Tab) 1,000 mg TID PO 04/03/17 14:00 05/03/17 13:59 04/06/17 08:39 1,000 MG Lidocaine (Lidoderm Patch 5%) 1 patch QAM TD 04/03/17 12:00 05/03/17 11:59 04/06/17 08:39 1 PATCH Miscellaneous (Remove Lidoderm Patch) 1 ea DAILY@21 N/A 04/03/17 21:00 05/03/17 20:59 04/05/17 21:00 1 EA Calcium Acetate (Phoslo Cap) 2,001 mg TIDM PO 04/04/17 08:00 05/01/17 07:29 04/06/17 08:35 2,001 MG Oxycodone/ Acetaminophen (Percocet 5-325mg Tab) FOR MODERATE PAIN ... Q4H PRN PO 04/05/17 10:45 04/19/17 10:44 04/05/17 14:19 1 TAB Heparin Sodium (Porcine) (Heparin Sq 5000 Unit/0.5ml) 5,000 unit Q8H SQ 04/05/17 20:00 05/05/17 19:59 04/06/17 03:39 5,000 UNIT Epoetin Christopher (Procrit Inj) 10,000 units TODAY@0815 IV. 04/06/17 08:15 04/06/17 18:00 Last 24 Hours Test 04/05/17 11:14 04/05/17 20:14 04/06/17 06:43 04/06/17 08:42 Bedside Glucose 121 mg/dl 185 mg/dl 159 mg/dl Assessment & Plan ESRD-for dialysis today, 2 liters uf as tolerated. volume status is better. bun and creatinine much improved. pt feels better. Anemia of renal failure-hg goal of 10 to 11. on procrit. OSIRIS-have increased her phosphate binders and taking three with meals now. labs pending for today.
[2017-04-06 09:15] LABS: HEMATOCRIT 31.2 % (37-47); MEAN CELL VOLUME 95.1 fL (80-100); MEAN CORPUSCULAR HEMOGLOBIN 31.1 pg (25-34); MEAN CORPUSCULAR HGB CONC 32.7 g/dl (32-36); MEAN PLATELET VOLUME 10.3 fL (7.4-10.4); PLATELET COUNT 402 K/uL (130-400); RED BLOOD COUNT 3.28 M/uL (4.2-5.4); WHITE BLOOD COUNT 12.44 K/uL (4.8-10.8)
[2017-04-06 10:03] LABS: BUN/CREATININE RATIO 7.8 (10-20); CALCIUM 9.5 mg/dl (8.5-10.1); CREATININE 8.9 mg/dl (0.60-1.20); PHOSPHORUS 7.7 mg/dl (2.5-4.9); POTASSIUM 4.4 mmol/L (3.5-5.1)
--- NOTE | 2017-04-06 13:28 | Progress Note ---
Progress Note Date of Service: Apr 06, 2017. Subjective 51 yo f with multiple medical problems, POD #1 after L CEA, seen in f/u today. Pt admits pain in L neck. Denies NELSON, vision changes, unilateral weakness, facial droop, AMS, difficulty speaking or choking on food. Admits sore throat from intubation, but states is able to eat/drink. Problem List Medical Problems: (1) Abdominal pain Status: Acute (2) Acute electrocardiogram changes Status: Acute (3) Chest pain Status: Acute (4) Chronic kidney disease (CKD) Status: Acute (5) Elevated troponin Status: Acute (6) Elevated troponin Status: Acute (7) Elevated troponin Status: Acute (8) End stage renal disease Status: Acute (9) GI bleed Status: Acute (10) Hyperkalemia Status: Acute (11) Hyperkalemia Status: Acute (12) Hypertension Status: Acute (13) Joint effusion Status: Acute (14) Left elbow pain Status: Acute (15) Left sided chest pain Status: Acute (16) Left sided chest pain Status: Acute (17) Limb ischemia Status: Acute (18) Medical non-compliance Status: Acute (19) Mid back pain on right side Status: Acute (20) Morbid obesity Status: Chronic (21) Musculoskeletal strain Status: Acute (22) Obesity Status: Acute (23) Pneumonia Status: Acute (24) Pulmonary edema Status: Acute (25) Renal failure Status: Acute (26) Sinusitis Status: Acute (27) Strain of lumbar region Status: Acute (28) Substernal chest pain Status: Acute (29) Trochanteric bursitis, right hip Status: Acute (30) Upper abdominal pain Status: Acute (31) Upper GI bleed Status: Acute (32) Uremia Status: Acute (33) Urinary tract infection Status: Acute (34) Vomiting Status: Acute (35) Vomiting Status: Acute (36) Vomiting Status: Acute (37) Vomiting Status: Acute Objective Vital Signs Vital Signs Past 12 Hours Date Time Temp Pulse Resp B/P (MAP) Pulse Ox O2 Delivery O2 Flow Rate FiO2 04/06/17 12:00 Nasal Cannula 2.0 04/06/17 11:42 36.6 59 168/65 (99) 04/06/17 11:30 59 149/79 04/06/17 11:15 56 157/85 04/06/17 11:02 68 147/81 04/06/17 10:45 64 184/75 04/06/17 10:30 56 140/81 04/06/17 10:15 59 158/73 04/06/17 10:00 70 164/71 04/06/17 09:45 73 171/74 04/06/17 09:30 72 181/76 04/06/17 09:15 73 174/69 04/06/17 09:00 68 165/69 04/06/17 08:45 72 165/67 04/06/17 08:30 82 170/71 04/06/17 08:10 36.5 76 175/74 (107) 04/06/17 08:00 Nasal Cannula 2.0 04/06/17 07:40 36.4 68 18 179/100 (126) 100 3.0 04/06/17 04:00 36.8 70 18 140/82 (101) 99 Nasal Cannula 2.0 04/06/17 04:00 Nasal Cannula Exam CONST: A&O x4, NAD, obese, chronically ill appearing female NECK: L neck incision C/D/I, mild local edema, tenderness, ecchymosis. trachea midline Neuro: No focal deficits Intake & Output 8-Hour Column 04/06/17 04/07/17 04/07/17 16:00 00:00 08:00 Output Total 1000 ml Balance -1000 ml 24-Hour Column 04/07/17 08:00 Output Total 1000 ml Balance -1000 ml Laboratory and Microbiology Results Past 24 Hours Test 04/05/17 20:14 04/06/17 06:43 04/06/17 09:03 04/06/17 11:21 Range/Units Bedside Glucose 185 159 145 70-90 mg/dl White Blood Count 12.44 4.8-10.8 K/uL Red Blood Count 3.28 4.2-5.4 M/uL Hemoglobin 10.2 12.0-16.0 g/dL Hematocrit 31.2 37-47 % Mean Corpuscular Volume 95.1 80-100 fL Mean Corpuscular Hemoglobin 31.1 25-34 pg Mean Corpuscular Hemoglobin Concent 32.7 32-36 g/dl RDW Standard Deviation 47.8 36.4-46.3 fL RDW Coefficient of Variation 13.9 11.5-14.5 % Platelet Count 402 130-400 K/uL Mean Platelet Volume 10.3 7.4-10.4 fL Sodium Level 131 136-145 mmol/L Potassium Level 4.4 3.5-5.1 mmol/L Chloride Level 96 98-107 mmol/L Carbon Dioxide Level 26 21-32 mmol/L Anion Gap 9.0 3-11 mmol/L Blood Urea Nitrogen 69 7-18 mg/dl Creatinine 8.90 0.60-1.20 mg/dl Est Creatinine Clear Calc Drug Dose 9.6 ml/min Estimated GFR () 5.4 Estimated GFR (Non- 4.7 BUN/Creatinine Ratio 7.8 10-20 Random Glucose 186 70-99 mg/dl Calcium Level 9.5 8.5-10.1 mg/dl Phosphorus Level 7.7 2.5-4.9 mg/dl ASSESSMENT and PLAN: s/p L CEA LICAS Pt doing well postop. Ok for d/c to rehab from vascular standpoint. Will see in office in 2 wks. Please call if needed.
--- NOTE | 2017-04-06 15:52 | Discharge Instructions ---
Discharge Instructions Date of Service Apr 06, 2017. Admission Reason for Admission: Chest Pain, Ckd, Fall Discharge Discharge Diagnosis / Problem: back pain, ESRD on HD, Left carotid endarterectomy, Elevated troponin Discharge Goals Goal(s): Decrease discomfort, Improve function, Improve disease control Activity Recommendations Activity Limitations: resume your previous activity (as tolerated) . Instructions / Follow-Up Instructions / Follow-Up Discharge to [facility] for rehab Follow up with vascular surgery dr. Jones in 2 weeks Follow up with your primary care provider once discharge from rehab Continue regular hemodialysis fall precaution Continue physical therapy Current Hospital Diet Patient's current hospital diet: Low Sodium Diet (2gm Na), Renal Diet Discharge Diet Recommended Diet: Low Sodium Diet (2gm Na), Renal Diet Procedures Procedures Performed: Left Carotid Endarterectomy Pending Studies Studies pending at discharge: no Laboratory Results Hemoglobin A1c Test 03/22/17 15:11 Range/Units Estimated Average Glucose 177 mg/dl Hemoglobin A1c 7.8 H 4.5-5.6 % Medical Emergencies . Who to Call and When: Medical Emergencies: If at any time you feel your situation is an emergency, please call 911 immediately. . Non-Emergent Contact Non-Emergency issues call your: Primary Care Provider Call Non-Emergent contact if: you have any medication questions . . "Provider Documentation" section prepared by Rekha Parham. . VTE Core Measure Inpt VTE Proph given/why not?: Unfractionated heparin SQ
--- NOTE | 2017-04-06 18:04 | Progress Note ---
Medicine Progress Note Date & Time of Visit: Apr 05, 2017 at 19:59. Subjective Pt was seen and examined Denies any chest pain, palpitation and sob Objective Last 8 Hrs Date Time Temp Pulse Resp B/P (MAP) Pulse Ox O2 Delivery O2 Flow Rate FiO2 04/05/17 18:50 36.6 61 20 125/59 (81) 99 Nasal Cannula 2.0 04/05/17 16:00 Nasal Cannula 2.0 04/05/17 13:15 36.5 52 16 130/68 (88) 95 Room Air 04/05/17 12:44 36.5 50 16 130/65 (86) 96 Room Air 04/05/17 12:34 36.6 58 18 130/68 (88) 98 Nasal Cannula 2.0 04/05/17 12:00 36.5 53 20 113/53 95 Nasal Cannula 2 Physical Exam: General- No acute distress Head- atraumatic Eyes- PERRL, EOMI ENT- oropharynx clear Neck- supple, no JVD Lungs-No wheezing Heart- no murmur Abdomen- normal bowel sounds, soft Extremities- no calf tenderness Neuro- alert, oriented x 3; PERRL, EOMI Skin- warm & dry Laboratory Results: Last 24 Hours Test 04/04/17 20:43 04/05/17 05:39 04/05/17 07:29 04/05/17 11:14 Bedside Glucose 141 mg/dl 94 mg/dl 121 mg/dl White Blood Count 10.29 K/uL Red Blood Count 3.51 M/uL Hemoglobin 10.5 g/dL Hematocrit 34.1 % Mean Corpuscular Volume 97.2 fL Mean Corpuscular Hemoglobin 29.9 pg Mean Corpuscular Hemoglobin Concent 30.8 g/dl RDW Standard Deviation 49.4 fL RDW Coefficient of Variation 14.0 % Platelet Count 422 K/uL Mean Platelet Volume 10.5 fL Sodium Level 135 mmol/L Potassium Level 4.2 mmol/L Chloride Level 97 mmol/L Carbon Dioxide Level 28 mmol/L Anion Gap 10.0 mmol/L Blood Urea Nitrogen 47 mg/dl Creatinine 6.80 mg/dl Est Creatinine Clear Calc Drug Dose 12.6 ml/min Estimated GFR () 7.5 Estimated GFR (Non- 6.5 BUN/Creatinine Ratio 6.8 Random Glucose 124 mg/dl Calcium Level 9.8 mg/dl Phosphorus Level 7.9 mg/dl Magnesium Level 2.3 mg/dl Assessment & Plan 1. Muscle pain/back strain CT lumbar/thoracic and cervical on admission showed no fractures/dislocations . Pain controlled with scheduled Valium and Tylenol. Continue PT/OT Transfer to rehab once stable 2. Elevated troponin denies any chest pain Related to ESRD Cardiology on board Per Cardiology evaluation, wall motion abnormalities are old OK to proceed to carotid surgery from a cardiac standpoint when ready. ECHO showed * The left ventricle is mildly dilated. * There is a large sized apical, septal, inferior, and posterior wall motion abnormality with hypokinesis of the segments. * Left ventricular systolic function is mildly reduced. * The calculated left ventricular ejection fraction =46%. * Grade I diastolic dysfunction, (abnormal relaxation pattern). * Compared to the images of the prior study dated 10/07/16, the LV apex is better visualized allowing improved assessment of the LV systolic function. When similar images are compared, there does not appear to be a significant interval change in the LV systolic function. 3. Chronic systolic heart failure Compensated continue current medical therapy with no changes. 4. ESRD ON HD HD done yesterday Continue regular HD on [facility] Nephro on board 5. Generalized Weakness multifactorial in setting of noncompliance with medications for multiple comorbidities and noncompliance with dialysis. Will go to rehab for PT once stable Continue PT 6. DMII with retinopathy- ISS/Lantus, controlled. Continue monitor BS 7. HTN cont with home meds. Stable 8. PAD S/P right Left Carotid endarterectomy by Dr. Jones Continue statin and asa 9. Obese Counseling on weight loss and diet 9. Noncompliance. Has not been taking her medications for over 1 year. 10. DVT proph-Heparin 11. FULL CODE 12. Disposition Will discharge to rehab tomorrow if stable by vascular Consultants: [place] [place] Procedures: Left carotid endarterectomy Current Inpatient Medications: Current Inpatient Medications Medications (Trade) Dose Ordered Sig/Bladimir Route Start Time Stop Time Status Last Admin Dose Admin Ondansetron HCl (Zofran Inj) 4 mg Q6H PRN IV 04/01/17 01:45 05/01/17 01:44 04/03/17 00:05 4 MG Nitroglycerin (Nitrostat Tab) 0.4 mg UD PRN SL 04/01/17 01:45 05/01/17 01:44 Aspirin (Ecotrin Tab) 81 mg DAILY PO 04/02/17 08:00 05/02/17 08:59 04/05/17 15:22 81 MG Atorvastatin Calcium (Lipitor Tab) 40 mg QAM PO 04/01/17 09:00 05/01/17 08:59 04/05/17 15:23 40 MG Dicyclomine HCl (Bentyl Cap) 10 mg QID PRN PO 04/01/17 02:00 05/01/17 01:59 Fluticasone Propionate (Flonase Nasal [place]) 2 sprays DAILY NA 04/01/17 09:00 05/01/17 08:59 04/04/17 08:14 2 SPRAYS Insulin Glargine (Lantus Solostar Pen) 10 units QPM SC 04/01/17 21:00 05/01/17 20:59 04/04/17 20:46 10 UNITS Lorazepam (Ativan Tab) 0.5 mg DAILY PRN PO 04/01/17 02:00 05/01/17 01:59 Metoprolol Tartrate (Lopressor Tab) 50 mg BID PO 04/01/17 09:00 05/01/17 08:59 04/05/17 07:02 50 MG Pantoprazole Sodium (Protonix Tab) 40 mg QAM PO 04/01/17 09:00 05/01/17 08:59 04/04/17 08:04 40 MG Triamcinolone Acetonide (Kenalog 0.5% Crm) 1 appln BID EXT 04/01/17 09:00 05/01/17 08:59 04/04/17 20:28 1 APPLN Loratadine (Claritin Tab) 10 mg PM PO 04/01/17 21:00 05/01/17 20:59 04/04/17 20:26 10 MG Isosorbide Mononitrate (Imdur Ext Rel Tab) 90 mg QAM PO 04/01/17 09:00 05/01/17 08:59 04/05/17 15:22 90 MG Glucose (Glucose 40% Gel) 15-30 GRAMS 15 GRAMS... UD PRN PO 04/01/17 02:30 05/01/17 02:29 Glucose (Glucose Chew Tab) 4-8 Tablets 4 Tabl... UD PRN PO 04/01/17 02:30 05/01/17 02:29 Dextrose (Dextrose 50% 50ML Syringe) 25-50ML OF 50% DW IV FOR... UD PRN IV 04/01/17 02:30 05/01/17 02:29 Glucagon (Glucagon Inj) 1 mg UD PRN SQ 04/01/17 02:30 05/01/17 02:29 Sodium Chloride ([place] Nasal [place]) 1 sprays PRN PRN NA 04/01/17 04:30 05/01/17 04:29 04/01/17 06:13 1 SPRAYS Miscellaneous (Iv Fluids Completed) 1 ea PRN PRN N/A 04/01/17 04:45 04/01/18 04:44 Sertraline HCl (Zoloft Tab) 100 mg QAM PO 04/04/17 08:00 05/01/17 20:59 04/04/17 08:07 100 MG Diazepam (Valium Tab) 2 mg TID PO 04/03/17 14:00 05/03/17 13:59 04/04/17 20:30 2 MG Acetaminophen (Tylenol Tab) 1,000 mg TID PO 04/03/17 14:00 05/03/17 13:59 04/04/17 20:27 1,000 MG Lidocaine (Lidoderm Patch 5%) 1 patch QAM TD 04/03/17 12:00 05/03/17 11:59 04/05/17 15:25 1 PATCH Miscellaneous (Remove Lidoderm Patch) 1 ea DAILY@21 N/A 04/03/17 21:00 05/03/17 20:59 04/04/17 20:29 1 EA Calcium Acetate (Phoslo Cap) 2,001 mg TIDM PO 04/04/17 08:00 05/01/17 07:29 04/04/17 08:07 2,001 MG Oxycodone/ Acetaminophen (Percocet 5-325mg Tab) FOR MODERATE PAIN ... Q4H PRN PO 04/05/17 10:45 04/19/17 10:44 04/05/17 14:19 1 TAB Heparin Sodium (Porcine) (Heparin Sq 5000 Unit/0.5ml) 5,000 unit Q8H SQ 04/05/17 20:00 05/05/17 19:59
--- NOTE | 2017-04-06 18:10 | Progress Note ---
Medicine Progress Note Date & Time of Visit: Apr 06, 2017 at 18:05. Subjective Pt was seen and examined Lying in bed with no distress She said that she still has some tenderness in the left neck denies any difficulty to swallow denies any chest pain, palpitation, dizziness and SOB Objective Last 8 Hrs Date Time Temp Pulse Resp B/P (MAP) Pulse Ox O2 Delivery O2 Flow Rate FiO2 04/06/17 16:27 36.5 69 14 92 Room Air 04/06/17 15:23 36.5 69 14 126/57 (80) 92 Room Air 04/06/17 12:00 Nasal Cannula 2.0 04/06/17 11:42 36.6 59 168/65 (99) 04/06/17 11:30 59 149/79 04/06/17 11:15 56 157/85 04/06/17 11:02 68 147/81 04/06/17 10:45 64 184/75 04/06/17 10:30 56 140/81 04/06/17 10:15 59 158/73 Physical Exam: General- No acute distress Head- atraumatic Eyes- PERRL, EOMI ENT- oropharynx clear Neck- Left carotid incision, no drainage Neck- supple, no JVD Lungs-No wheezing Heart- no murmur Abdomen- normal bowel sounds, soft Extremities- no calf tenderness Neuro- alert, oriented x 3; PERRL, EOMI Skin- warm & dry Laboratory Results: Last 24 Hours Test 04/05/17 20:14 04/06/17 06:43 04/06/17 09:03 04/06/17 11:21 Bedside Glucose 185 mg/dl 159 mg/dl 145 mg/dl White Blood Count 12.44 K/uL Red Blood Count 3.28 M/uL Hemoglobin 10.2 g/dL Hematocrit 31.2 % Mean Corpuscular Volume 95.1 fL Mean Corpuscular Hemoglobin 31.1 pg Mean Corpuscular Hemoglobin Concent 32.7 g/dl RDW Standard Deviation 47.8 fL RDW Coefficient of Variation 13.9 % Platelet Count 402 K/uL Mean Platelet Volume 10.3 fL Sodium Level 131 mmol/L Potassium Level 4.4 mmol/L Chloride Level 96 mmol/L Carbon Dioxide Level 26 mmol/L Anion Gap 9.0 mmol/L Blood Urea Nitrogen 69 mg/dl Creatinine 8.90 mg/dl Est Creatinine Clear Calc Drug Dose 9.6 ml/min Estimated GFR () 5.4 Estimated GFR (Non- 4.7 BUN/Creatinine Ratio 7.8 Random Glucose 186 mg/dl Calcium Level 9.5 mg/dl Phosphorus Level 7.7 mg/dl Test 04/06/17 16:38 Bedside Glucose 156 mg/dl Assessment & Plan 1. Muscle pain/back strain CT lumbar/thoracic and cervical on admission showed no fractures/dislocations . Pain controlled with scheduled Valium and Tylenol. Continue PT/OT Transfer to for rehab today 2. Elevated troponin denies any chest pain Related to ESRD Cardiology on board Per Cardiology evaluation, wall motion abnormalities are old OK to proceed to carotid surgery from a cardiac standpoint when ready. ECHO showed * The left ventricle is mildly dilated. * There is a large sized apical, septal, inferior, and posterior wall motion abnormality with hypokinesis of the segments. * Left ventricular systolic function is mildly reduced. * The calculated left ventricular ejection fraction =46%. * Grade I diastolic dysfunction, (abnormal relaxation pattern). * Compared to the images of the prior study dated 10/07/16, the LV apex is better visualized allowing improved assessment of the LV systolic function. When similar images are compared, there does not appear to be a significant interval change in the LV systolic function. 3. Chronic systolic heart failure Compensated continue current medical therapy with no changes. 4. ESRD ON HD HD done today Continue regular HD on [facility] Nephro on board 5. Generalized Weakness multifactorial in setting of noncompliance with medications for multiple comorbidities and noncompliance with dialysis. Will go to rehab for PT today Continue PT 6. DMII with retinopathy- ISS/Lantus, controlled. Continue monitor BS 7. HTN cont with home meds. Stable 8. PAD S/P day#1 right Left Carotid endarterectomy by Dr. Jones Continue statin and asa Follow up with vascular surgery in 2 weeks 9. Obese Counseling on weight loss and diet 9. Noncompliance. Has not been taking her medications for over 1 year. 10. DVT proph-Heparin 11. FULL CODE 12. Disposition Will discharge to rehab today Follow up with vascular in 2 weeks Follow up with your PCP once discharge from refab Continue HD Consultants: [facility] [place] Procedures: Left carotid endarterectomy
--- NOTE | 2017-04-11 00:21 | Discharge Summary ---
Discharge Summary Date of Service Apr 11, 2017. Discharge Summary Admission Date: Apr 02, 2017 at 22:00 Discharge Date: Apr 06, 2017 Discharge Disposition: Rehab Principal Diagnosis: Muscle pain/back strain Secondary Diagnoses/Problems: back pain ESRD on HD Left carotid endarterectomy Elevated troponin Chronic systolic heart failure Obese DMII with retinopathy Generalized Weakness PAD HTN Procedures: Left carotid endarterectomy Consultations: Vascular Surgery-[facility] [place] [place] Medication Reconciliation Continued Medications: Aspirin (Aspirin 81) 81 Mg Tab 1 TAB PO DAILY Atorvastatin (Lipitor) 40 Mg Tab 40 MG PO QAM, TAB Calcium Acetate (Phoslo 667 Mg) 667 Mg Cap 1 CAP PO TID, CAP Dicyclomine Hcl (Dicyclomine Hcl) 10 Mg Cap 1 MG PO QID PRN for CRAMPING Fluticasone Propionate (Nasal) (Allergy Nasal [place] 24 Ho) 50 Mcg/Act Spr 1 SPRAY N/A DAILY Insulin Glargine (Lantus Solostar) 100 Unit/Ml Inj 10 UNITS SC QPM, PEN Isosorbide Mononitrate (Isosorbide Mononitrate ER) 30 Mg Tabcr 60 MG PO QAM TAKES A 30 AND 60 = 90 Isosorbide Mononitrate Ext Rel (Imdur Ext Rel) 30 Mg Ertab 30 MG PO QAM, TAB TAKES A 30 AND A 60 = 90 Loratadine (Claritin Childrens) 5 Mg Chw 2 TAB PO QPM Lorazepam (Ativan) 1 Mg Tab 0.5 MG PO DAILY PRN for Anxiety, TAB Metoprolol Tartrate (Lopressor) (Lopressor) 50 Mg Tab 1 TAB PO BID for 30 Days, #60 TAB 5 Refills Pantoprazole (Protonix) 40 Mg Tab 40 MG PO QAM Sertraline Hcl (Zoloft) 100 Mg Tab 100 MG PO HS, TAB Triamcinolone Acet (Triamcinolone Acetonide) 45 Appln/15 Gm Cr 1 APPLN TOP BID for 30 Days, #30 GM [Percocet] () 1 TAB PO PRN Admission Information HPI (per Admitting provider): CHIEF COMPLAINT: Status post fall, followed by pain all over and also chest pain. HISTORY OF PRESENT COMPLAINT: She is a 51-year-old female with significant past medical history of end-stage renal disease, on hemodialysis, depression, diabetes with retinopathy, GERD, morbid obesity, hyperlipidemia, tobacco use disorder, hypertension and ischemic cardiomyopathy. Apparently, has had a minor fall. She slid down the bed and injured multiple areas, but none severely. She was brought into the Emergency Room and she has been complaining of pain all over and at the end, she also complained of pain in the center chest. She has had unremarkable labs, except troponin noted to be elevated at 0.1. From that point, she was advised to stay in the hospital to rule out possible ACS. She denies to have any recent shortness of breath, any palpitations. No abdominal pain, nausea or vomiting, but she does have pain in the left hip, shoulder and multiple areas of the body. No numbness or tingling in the extremities and no weakness involving any side of the body in particular. Physical Exam (per Admitting): GENERAL: On examination in the Emergency Room, she was not having any acute distress. VITAL SIGNS: Temperature 36.9, pulse 64, blood pressure 156/95, saturation 92% on room air. HEENT: Unremarkable. NECK: Supple. No JVD, no bruit. CHEST: Clear to auscultate bilaterally with decreased breath sounds both sides. HEART: S1, S2 regular. ABDOMEN: Soft, benign, nontender, no organomegaly. Bowel sounds present. EXTREMITIES: Trace edema bilaterally. MUSCULOSKELETAL SYSTEM: No acute arthritis in any joint. She does have moderate pain in the left shoulder and left hip area as well, but no bruising and/or hematoma. CENTRAL NERVOUS SYSTEM: She was alert, awake, oriented x3. Hospital Course 1. Muscle pain/back strain CT lumbar/thoracic and cervical on admission showed no fractures/dislocations . Pain controlled with scheduled Valium and Tylenol. Continue PT/OT Transfer to rehab once stable 2. Elevated troponin denies any chest pain Related to ESRD Cardiology on board Per Cardiology evaluation, wall motion abnormalities are old OK to proceed to carotid surgery from a cardiac standpoint when ready. ECHO showed * The left ventricle is mildly dilated. * There is a large sized apical, septal, inferior, and posterior wall motion abnormality with hypokinesis of the segments. * Left ventricular systolic function is mildly reduced. * The calculated left ventricular ejection fraction =46%. * Grade I diastolic dysfunction, (abnormal relaxation pattern). * Compared to the images of the prior study dated 10/07/16, the LV apex is better visualized allowing improved assessment of the LV systolic function. When similar images are compared, there does not appear to be a significant interval change in the LV systolic function. 3. Chronic systolic heart failure Compensated continue current medical therapy with no changes. 4. ESRD ON HD HD done yesterday Continue regular HD on [facility] Nephro on board 5. Generalized Weakness multifactorial in setting of noncompliance with medications for multiple comorbidities and noncompliance with dialysis. Will go to rehab for PT once stable Continue PT 6. DMII with retinopathy- ISS/Lantus, controlled. Continue monitor BS 7. HTN cont with home meds. Stable 8. PAD S/P right Left Carotid endarterectomy by Dr. Jones Continue statin and asa 9. Obese Counseling on weight loss and diet 9. Noncompliance. Has not been taking her medications for over 1 year. 10. DVT proph-Heparin 11. FULL CODE 12. Disposition Will discharge to rehab tomorrow if stable by vascular Total time spent on discharge = 35 minutes This includes examination of the patient, discharge planning, medication reconciliation, and communication with other providers. Discharge Instructions Discharge Instructions Date of Service Apr 06, 2017. Admission Reason for Admission: Chest Pain, Ckd, Fall Discharge Discharge Diagnosis / Problem: back pain, ESRD on HD, Left carotid endarterectomy, Elevated troponin Discharge Goals Goal(s): Decrease discomfort, Improve function, Improve disease control Activity Recommendations Activity Limitations: resume your previous activity (as tolerated) . Instructions / Follow-Up Instructions / Follow-Up Discharge to [facility] ER for rehab Follow up with vascular surgery dr. Jones in 2 weeks Follow up with your primary care provider once discharge from rehab Continue regular hemodialysis fall precaution Continue physical therapy Current Hospital Diet Patient's current hospital diet: Low Sodium Diet (2gm Na), Renal Diet Discharge Diet Recommended Diet: Low Sodium Diet (2gm Na), Renal Diet Procedures Procedures Performed: Left Carotid Endarterectomy Pending Studies Studies pending at discharge: no Laboratory Results Hemoglobin A1c Test 03/22/17 15:11 Range/Units Estimated Average Glucose 177 mg/dl Hemoglobin A1c 7.8 H 4.5-5.6 % Medical Emergencies . Who to Call and When: Medical Emergencies: If at any time you feel your situation is an emergency, please call 911 immediately. . Non-Emergent Contact Non-Emergency issues call your: Primary Care Provider Call Non-Emergent contact if: you have any medication questions . . "Provider Documentation" section prepared by Rekha Parham. . VTE Core Measure Inpt VTE Proph given/why not?: Unfractionated heparin SQ Additional Copies To Tamy Becerra D.O. [facility]
[2017-05-29] MEDS ORDERED: LORA5CHW10 PO (09:13)
[2017-05-29] MEDS ORDERED: DICY10CA12 PO (11:36)
[2017-05-29] MEDS ORDERED: TPRSR/50 PO (13:22)
[2017-05-29] MEDS ORDERED: ISOS60TA25 PO (20:12)
[2017-05-29] MEDS ORDERED: ISOS30TA35 PO (20:12)
[2017-05-29] MEDS ORDERED: CALC667C PO (20:12)
[2017-05-29] MEDS ORDERED: OXYC-643 PO (20:12)
[2017-05-29] MEDS ORDERED: LORA0.5T12 PO (20:12)
[2017-05-29] MEDS ORDERED: KFL500HP PO (20:12)
[2017-05-29] MEDS ORDERED: PRT/40 PO (20:12)
[2017-05-29] MEDS ORDERED: ZLF/100 PO (20:12)
[2017-05-29] MEDS ORDERED: LPT40 PO (20:12)
[2017-05-29] MEDS ORDERED: FLNIN/ NAE (20:12)
[2017-05-29] MEDS ORDERED: ASPI81TA28 PO (20:15)
[2017-05-29] MEDS ORDERED: INSDGIPEN SC (21:11)
[2017-05-30] MEDS ORDERED: CEPH500C2 PO (01:37)
[2017-05-30] MEDS ORDERED: CALC667C PO (01:45)
== END 2017-04-06 17:15 | DRG 981 ==
LOC: C.EDB 19:36 → UNDOADMOB 04-01 01:46 → C.2T 04-01 01:46 → EDBEDREQ 04-01 01:54 → ENRESERV 04-01 01:56 → C.2T 04-01 16:59 → C.4E 04-01 16:59 → C.2E 04-02 21:57 → OBSVTOIN 04-02 22:00 → ENRESERV 04-02 22:31 → CANRESERV 04-03 11:52 → C.4E 04-03 13:49 → CMPBEDREQ 04-03 13:49 → ENRESERV 04-05 11:45 → C.2E 04-05 13:03
PROVIDERS: ADMIT Internal Medicine; ATTEND Internal Medicine
PROC: 03CL0ZZ Extirpation of Matter from Left Internal Carotid Artery, Open Approach (ICD-10-PCS; principal; 2017-04-05 07:30)
DX: M79.1 Myalgia (principal); N18.6 End stage renal disease; I13.2 Hypertensive heart and chronic kidney disease with heart failure and with stage 5 chronic kidney disease, or end stage renal disease; I50.22 Chronic systolic (congestive) heart failure; S39.012A Strain of muscle, fascia and tendon of lower back, initial encounter; R07.9 Chest pain, unspecified; Z99.2 Dependence on renal dialysis; Z91.15 Patient's noncompliance with renal dialysis; Z91.14 Patient's other noncompliance with medication regimen; R53.1 Weakness; E11.319 Type 2 diabetes mellitus with unspecified diabetic retinopathy without macular edema; E11.22 Type 2 diabetes mellitus with diabetic chronic kidney disease; I65.22 Occlusion and stenosis of left carotid artery; I73.9 Peripheral vascular disease, unspecified; D63.1 Anemia in chronic kidney disease; N25.0 Renal osteodystrophy; G47.00 Insomnia, unspecified; K21.9 Gastro-esophageal reflux disease without esophagitis; E78.5 Hyperlipidemia, unspecified; I25.10 Atherosclerotic heart disease of native coronary artery without angina pectoris; I25.5 Ischemic cardiomyopathy; F32.9 Major depressive disorder, single episode, unspecified; E66.01 Morbid (severe) obesity due to excess calories; Z68.38 Body mass index [BMI] 38.0-38.9, adult; F17.200 Nicotine dependence, unspecified, uncomplicated; W19.XXXA Unspecified fall, initial encounter; Y92.832 Beach as the place of occurrence of the external cause; Z98.61 Coronary angioplasty status; Z79.4 Long term (current) use of insulin; Z79.82 Long term (current) use of aspirin; Z79.899 Other long term (current) drug therapy; Z91.040 Latex allergy status; Z82.49 Family history of ischemic heart disease and other diseases of the circulatory system

== ENCOUNTER 2017-04-28 13:02 | Emergency (ER) | payer OTHER ==
[~2017-04-28 13:02] MED LIST changes: +ATV/1 PO; +IMDSR30 PO; +ISOS30TA3 PO; +PERCOCET PO
[2017-04-28 13:10] VITALS: TEMP 37; Ht 170.2 cm
[2017-04-28] MEDS ORDERED: ONDANSETRON INJ 2 MG/ML 2 ML VIAL IV STA (13:49)
[2017-04-28] MEDS ORDERED: MoRPHine SULFATE 4 MG/ML 1 ML CARP\\VIAL IV STA (13:49)
[2017-04-28] MEDS ORDERED: SODIUM CHLORIDE 0.9% 1000ML 1,000 ML IV ONE (14:00)
[2017-04-28 14:15] LABS: BASO % 0.1 %; BASO ABS # 0.02 K/uL (0-0.2); COMPLETE YES; EOS % 0.4 %; HEMATOCRIT 33.8 % (37-47); IG% 0.4 %; LYMPH % 8.2 %; LYMPH ABS # 1.36 K/uL (1.2-3.4); MEAN CELL VOLUME 94.7 fL (80-100); MEAN CORPUSCULAR HEMOGLOBIN 31.4 pg (25-34); MEAN CORPUSCULAR HGB CONC 33.1 g/dl (32-36); MEAN PLATELET VOLUME 10.4 fL (7.4-10.4); MONO % 7.3 %; NEUT % 83.6 %; PLATELET COUNT 315 K/uL (130-400); RED BLOOD COUNT 3.57 M/uL (4.2-5.4); WHITE BLOOD COUNT 16.52 K/uL (4.8-10.8)
[2017-04-28] MEDS ORDERED: LORAZEPAM 1 MG TAB SL STA (14:39)
[2017-04-28 15:01] LABS: BLOOD UREA NITROGEN 57 mg/dl (7-18); BUN/CREATININE RATIO 6.3 (10-20); CALCIUM 9.6 mg/dl (8.5-10.1); CARBON DIOXIDE 30 mmol/L (21-32); CHLORIDE 87 mmol/L (98-107); GLUCOSE 229 mg/dl (70-99); POTASSIUM 4.7 mmol/L (3.5-5.1); SODIUM 127 mmol/L (136-145)
--- NOTE | 2017-04-28 15:13 | DIAGNOSTIC IMAGING REPORT ---
RIGHT SHOULDER MIN 2 VIEWS ROUTINE HISTORY: 51 years-old Female same Right acute bilateral shoulder pain without reported trauma. COMPARISON: Portable chest radiograph 03/31/2017 TECHNIQUE: 3 views of the right shoulder FINDINGS: Moderate, clavicular and mild glenohumeral osteoarthritis is noted. Amorphous appearing calcifications are seen within the region of the subacromial/subdeltoid bursa. Imaged lung rodríguez are clear. IMPRESSION: 1. Degenerative changes about the right shoulder without acute bony abnormality. 2. Amorphous calcifications within the expected region of the subacromial/subdeltoid bursa are suspicious for calcific bursitis or alternatively calcific tendinosis of the rotator cuff. The above report was generated using voice recognition software. It may contain grammatical, syntax or spelling errors. Electronically signed by: Cesar Shannon M.D. 04/28/2017 3:11 PM Dictated Date/Time: 04/28/2017 3:10 PM
--- NOTE | 2017-04-28 15:26 | DIAGNOSTIC IMAGING REPORT ---
LEFT SHOULDER 3 VIEWS CLINICAL HISTORY: Left shoulder pain. FINDINGS: 3 views of the left shoulder are obtained. No prior studies are available for comparison at the time of dictation. The skeletal structures are osteopenic. No fracture or dislocation is seen. Mild productive degenerative change is seen at the acromioclavicular joint. The glenohumeral articulation is preserved. Calcific tendinopathy is noted. The overlying soft tissues are within normal limits. Atherosclerotic calcification is noted in the left axillary artery. A surgical clip is present in the left upper extremity. The visualized left upper lobe lung parenchyma appears clear. The heart is enlarged and there is atherosclerotic calcification of the thoracic aorta. IMPRESSION: 1. Osteopenia and degenerative change as above. No acute bony abnormality seen in the left shoulder. 2. Calcific tendinopathy is noted in the left shoulder. Electronically signed by: Uriel Thomson M.D. 04/28/2017 3:25 PM Dictated Date/Time: 04/28/2017 3:23 PM
[2017-04-28 16:30] LABS: LYME DISEASE AB IGG NEG (NEG)
--- NOTE | 2017-04-28 16:53 | DIAGNOSTIC IMAGING REPORT ---
LUMBAR SPINE MRI HISTORY: acute lower back pain; elevated white blood cell count. TECHNIQUE: Multiplanar multisequence MRI of the lumbar spine was performed without the use of contrast. COMPARISON: Lumbar spine CT 03/31/2017. FINDINGS: For the purpose of the report the L5-S1 disc space will be located on axial image 27 of 30. Alignment is intact. No fracture or subluxation. Normal marrow signal intensity seen throughout the visualized osseous structures. Mild disc space narrowing and disc desiccation L5-S1. Remaining disc spaces are preserved. The conus terminates at the L1-L2 disc space level. Mild subcutaneous edema within the lumbar region. There is trace prevertebral edema which is likely chronic from the L3-S1 levels. Mild facet degenerative changes within the lower lumbar spine. Focal edema adjacent to the right L4-L5 transverse process with an associated focal calcification. This is unchanged compared to the prior CT examination. There is also a tiny focus of fluid at this location measuring 5 mm. L1-L2: No significant central canal or neural foraminal narrowing. L2-L3: No significant central canal or neural foraminal narrowing. L3-L4: No significant central canal or neural foraminal narrowing. L4-L5: No significant central canal or neural foraminal narrowing. L5-S1: Small focal central disc protrusion without significant central canal or neural foraminal narrowing. IMPRESSION: 1. Small focal central disc protrusion at L5-S1 without significant central canal or neural foraminal narrowing. 2. Focal calcification with edema along the right side of the L4 and L5 transverse processes. This is similar to the prior study and may be due to old trauma or long-standing degenerative change. There is also 5 mm focal fluid collection at this location which may represent an associated bursitis. 3. Trace retroperitoneal/prevertebral edema within the lower lumbar spine suggestive of chronic change. Electronically signed by: Jose Corona M.D. 04/28/2017 4:51 PM Dictated Date/Time: 04/28/2017 4:43 PM
[2017-04-28 17:00] LABS: LYME DISEASE AB IGM EQUIVOCAL (NEG)
[2017-04-28] MEDS ORDERED: MoRPHine SULFATE 10 MG/ML CARP/VIAL IV STA (17:10)
[2017-04-28 20:01] LABS: URINE APPEARANCE CLOUDY (CLEAR); URINE BILIRUBIN NEG (NEG); URINE COLOR YELLOW; URINE EPITHELIAL CELL AUTO >30 /lpf (0-5); URINE NITRITE NEG (NEG); URINE PH >= 9.0 (4.5-7.5); URINE SPECIFIC GRAVITY 1.013 (1.000-1.030); UROBILINOGEN NEG (NEG)
[2017-04-28 20:07] LABS: MANUAL MICROSCOPIC REQUIRED? NO; REVIEW REQ? NO
[2017-04-28 20:18] LABS: SULFASALICYLIC ACID POS (NEG)
[2017-04-28] MEDS ORDERED: DOXYCYCLINE HYCLATE 100 MG CAP PO ONE (20:30)
[2017-04-28] MEDS ORDERED: DOXY100C2 PO (20:35)
[2017-04-28] MEDS ORDERED: OXYC-57 PO (20:35)
[2017-04-28 21:47] VITALS: BP 137/62; PULSE 92; O2SAT 95
--- NOTE | 2017-04-28 23:58 | EMERGENCY ROOM VISIT NOTE ---
ED Visit Note First contact with patient: 13:22 Chief Complaint: My hips and shoulders hurt. History of Present Illness: Ms. Gilbert is a 51-year-old white female who brought into the ED the wheelchair complaining of bilateral hips and shoulder pain. Historically patient reports she was diagnosed with osteoarthritis last year but was never referred to a specialist for her arthritis. She reports since being diagnosed she has intermittent bilateral shoulder and hip pain. Patient reports she was feeling well yesterday after returning home from dialysis and noted some mild discomfort in the posterior pelvis area; this is the discomfort she is calling hip pain. She reports she used her prescribed Percocet and a heating pad and was able to sleep all night. She reports when she woke up this morning she was not immediately having any pain but when she attempted to get out of bed and was moving her legs her pain became severe and she could barely stand up. During this process she also noted that she was having bilateral shoulder pain. Patient places her hip discomfort actually over the bilateral sacroiliac joint area. She describes her pain as a stabbing and a sensation of stepping on glass. Her hip pain radiates around the lateral aspect of the pelvis and into the anterior thigh. She rates her discomfort 10/10. Her pain worsens with palpation of the lower back predominately over the sacroiliac joint areas but also over the L5-S1 area, movement of the legs predominately at the hips, and weightbearing. She reports she has not identified any alleviating factors related to the pain. Today she reports she has not taken any medications for pain. Currently she places her right shoulder pain over the anterior aspect of the humerus in the area of the bicipital groove. She places her left shoulder pain over the lateral aspect of the humerus. She reports this pain is not as severe. Her pain worsens with palpation in all movements of the shoulder. She has not identified any alleviating factors related to the pain. She denies fevers, chills, sweats, skin eruptions, skin color changes, recent trauma, neck pain, thoracic back pain, upper respiratory tract symptoms, shortness of breath, chest pain, extremity weakness/numbness/tingling, recent injuries to the back and extremities. Lastly she reports that she did go out to eat just prior to coming to the hospital and after eating she became nauseated but has not vomited. Review of Systems: As noted above in history of present illness. All body systems were reviewed and found to be negative as noted above. Past Medical History: (1) Allergic rhinitis (2) C. difficile colitis (3) CAD (coronary artery disease) (4) Carotid stenosis (5) Diabetic foot infection (6) DM type 2 (diabetes mellitus, type 2) (7) Dyslipidemia (8) ESRD (end stage renal disease) on dialysis (9) Fall (10) GERD (gastroesophageal reflux disease) (11) HTN (hypertension) (12) HX OF PAST NONCOMPLIANCE (13) Ischemic cardiomyopathy (14) Morbid obesity (15) Osteomyelitis (16) Tobacco use disorder (17) UGIB (upper gastrointestinal bleed) (18) Weakness Surgical Problems: (1) Hemodialysis access, AV graft Current Medications: Medications Dose Route/Sig Max Daily Dose Days Date Category Dose Instructions Metoprolol Succinate ER (Metoprolol Succinate) 50 Mg Tabcr 50 Mg PO DAILY 04/28/17 Reported Aspirin 81 (Aspirin) 81 Mg Tab 1 Tab PO DAILY 03/22/17 Reported Triamcinolone Acetonide (Triamcinolone Acet) 45 Appln/15 Gm Cr 1 Appln TOP BID 30 03/22/17 Reported Lopressor (Metoprolol Tartrate) 50 Mg Tab 1 Tab PO BID 30 03/22/17 Reported Allergy Nasal Ona 24 Ho (Fluticasone Propionate (Nasal)) 50 Mcg/Act Spr 1 Ona N/A DAILY 01/18/17 Reported Claritin Childrens (Loratadine) 5 Mg Chw 2 Tab PO QPM 01/18/17 Reported Zoloft (Sertraline Hcl) 100 Mg Tab 100 Mg PO HS 01/18/17 Reported Lipitor (Atorvastatin) 40 Mg Tab 40 Mg PO QAM 01/18/17 Reported Protonix (Pantoprazole Sodium) 40 Mg Tab 40 Mg PO QAM 10/23/16 Reported Dicyclomine Hcl 10 Mg Cap 1 Mg PO QID PRN 10/23/16 Reported Phoslo 667 Mg (Calcium Acetate) 667 Mg Cap 1 Cap PO TID 09/14/16 Reported Isosorbide Mononitrate ER (Isosorbide Mononitrate) 30 Mg Tabcr 60 Mg PO QAM 09/14/16 Reported TAKES A 30 AND 60 = 90 Imdur Ext Rel (Isosorbide Mononitrate) 30 Mg Ertab 30 Mg PO QAM 09/14/16 Reported TAKES A 30 AND A 60 = 90 Lantus Solostar (Insulin Glargine) 100 Unit/Ml Inj 10 Units SC QPM 09/14/16 Reported Ativan (Lorazepam) 1 Mg Tab 0.5 Mg PO DAILY PRN 09/14/16 Reported Allergies to Medications: Latex. Social History: Patient is not employed; she feels safe in her home environment ; she denies tobacco use. Physical Examination: Vital Signs: Date Time Temp Pulse Resp B/P (MAP) Pulse Ox O2 Delivery O2 Flow Rate FiO2 04/28/17 21:47 92 17 137/62 95 04/28/17 18:25 90 16 143/58 96 04/28/17 16:47 97 15 122/75 95 Room Air 04/28/17 15:39 92 04/28/17 13:10 37.0 97 18 122/71 97 Room Air GENERAL: 51-year-old female in mild to moderate distress due to pain, nontoxic- appearing, afebrile and hemodynamically stable. NEUROLOGICAL: Awake, alert and oriented to person, place and time. Answering questions appropriately and following commands. Good hand eye coordination. No focal motor sensory deficits. SKIN: Warm, dry and pink. No soft tissue eruptions or trauma noted. HEENT: Atraumatic and normocephalic. PERRLA. Sclera white and conjunctiva pink. No drainage from naris. Oral cavity moist and pink. Pharynx is nonerythematous or edematous. Speech normal. No lymphadenopathy. Trachea midline. No jugular venous distention. BACK: No tenderness over the bony cervical and thoracic spine. Moderate tenderness over the bony L4 to S1 area without bony crepitus, bony deformity, swelling, erythema or step-offs. There is also moderate tenderness bilateral sacroiliac joints without bony deformity, bony crepitus, swelling or ecchymosis. Unable to do straight leg raise test due to patient's habitus and pain. No CVA tenderness. THORAX: Lungs sounds are clear to auscultation and equal bilaterally with symmetrical chest wall. No wheezing, rales or rhonchi. No crepitus, tenderness , subcutaneous air or deformities noted. HEART: Regular rate and rhythm. No gallops, rubs or murmurs are appreciated. ABDOMEN: Obese, soft and nontender. Positive bowel sounds in all quadrants. No guarding, rigidity or organomegaly. UPPER EXTREMITIES: No gross bony deformity. Right: Tenderness over the anterior -year-old head and in the bicipital groove without bony deformity, bony crepitus , swelling, erythema or ecchymosis. Decreased range of motion in all shoulder movements due to pain. No tenderness over the lateral or posterior oral head, clavicle or scapula. With the shoulder stabilized patient has 5/5 muscle strength in flexion and extension of the elbow, pronation and supination of the forearm and flexion, extension and radial ulnar deviation of the wrist. Throughout the lower arm and hand the skin was warm and pink and capillary refill is brisk. She is able to distinguish light sensations through all dermatomes. Left: Tenderness over the lateral aspect of the humeral head without bony deformity, bony crepitus, swelling, erythema or ecchymosis. No tenderness over the anterior posterior oral head, clavicle or scapula. Decreased range of motion due to pain. With the shoulder stabilize she does have full range of motion and muscle strength in flexion and extension of the elbow, pronation and supination of the forearm and flexion, extension and radial and ulnar deviation of the wrist. Throughout the arm and hand the skin was warm and pink and capillary refill is brisk. She is able to distinguish light sensations through all dermatomes. LOWER EXTREMITY: No gross bony deformity. No shortening or malrotation. No tenderness over the hips, thighs, knees, lower legs or ankle. Patient refused to do range of motion exercises in the hips due to pain. With that stabilize she does have full range of motion and muscle strength in flexion and extension of the knees and plantar flexion and dorsiflexion of the ankles. Throughout the lower legs and feet the skin was warm and pink and capillary refill is brisk. She is able to distinguish light sensations through all dermatomes. ED Course: Patient is assessed as noted above. Patient's medication list was reviewed. Laboratory Testing: Test 04/28/17 14:05 04/28/17 15:21 04/28/17 19:10 Range/Units White Blood Count 16.52 4.8-10.8 K/uL Red Blood Count 3.57 4.2-5.4 M/uL Hemoglobin 11.2 12.0-16.0 g/dL Hematocrit 33.8 37-47 % Mean Corpuscular Volume 94.7 80-100 fL Mean Corpuscular Hemoglobin 31.4 25-34 pg Mean Corpuscular Hemoglobin Concent 33.1 32-36 g/dl Platelet Count 315 130-400 K/uL Mean Platelet Volume 10.4 7.4-10.4 fL Neutrophils (%) (Auto) 83.6 % Lymphocytes (%) (Auto) 8.2 % Monocytes (%) (Auto) 7.3 % Eosinophils (%) (Auto) 0.4 % Basophils (%) (Auto) 0.1 % Neutrophils # (Auto) 13.82 1.4-6.5 K/uL Lymphocytes # (Auto) 1.36 1.2-3.4 K/uL Monocytes # (Auto) 1.20 0.11-0.59 K/uL Eosinophils # (Auto) 0.06 0-0.5 K/uL Basophils # (Auto) 0.02 0-0.2 K/uL RDW Standard Deviation 49.1 36.4-46.3 fL RDW Coefficient of Variation 14.2 11.5-14.5 % Immature Granulocyte % (Auto) 0.4 % Immature Granulocyte # (Auto) 0.06 0.00-0.02 K/uL Erythrocyte Sedimentation Rate 81 0-21 mm/hr Sodium Level 127 136-145 mmol/L Potassium Level 4.7 3.5-5.1 mmol/L Chloride Level 87 98-107 mmol/L Carbon Dioxide Level 30 21-32 mmol/L Anion Gap 10.0 3-11 mmol/L Blood Urea Nitrogen 57 7-18 mg/dl Creatinine 9.00 0.60-1.20 mg/dl Estimated GFR () 5.3 Estimated GFR (Non- 4.6 BUN/Creatinine Ratio 6.3 10-20 Random Glucose 229 70-99 mg/dl Calcium Level 9.6 8.5-10.1 mg/dl Lyme Disease IgG Antibody NEG NEG Lyme Disease IgM Antibody EQUIVOCAL NEG Urine Color YELLOW Urine Appearance CLOUDY CLEAR Urine pH >= 9.0 4.5-7.5 Urine Specific [place] 1.013 1.000-1.030 Urine Protein 1+ NEG Urine Glucose (UA) 1+ NEG Urine Ketones NEG NEG Urine Occult Blood NEG NEG Urine Nitrite NEG NEG Urine Bilirubin NEG NEG Urine Urobilinogen NEG NEG Urine Leukocyte Esterase SMALL NEG Urine WBC (Auto) >30 0-5 /hpf Urine RBC (Auto) 0-4 0-4 /hpf Urine Hyaline Casts (Auto) 1-5 0-5 /lpf Urine Epithelial Cells (Auto) >30 0-5 /lpf Urine Bacteria (Auto) 1+ NEG Urine Culture: Pending. Right Shoulder X-Rays: Were read by myself and the radiologist and shows degenerative changes about the right shoulder without acute bony abnormalities and amorphous calcification within the expected region of the subacromial/ subdeltoid bursa suspicious for calcific bursitis or calcified tendon noticed of this rotator cuff. Left Shoulder X-Rays: Were read by myself and the radiologist and shows no acute bony abnormalities. Osteopenic and degenerative changes at the acromioclavicular joint. Calcified tendinosis was once again noted. Lumbar Spine MRI: Were reviewed by myself and read by the radiologist showing a small focal central disc for trusion at the L5-S1 without significant central canal or neural foraminal narrowing, focal calcification with edema along the right side of the L4-L5 transverse processes similar to previous study and trace retroperitoneal/prevertebral edema within the lower lumbar spine digestive of chronic change. Patient was hydrated with normal saline, she received a total of 10 mg of morphine IV for pain, 4 mg of Zofran IV for nausea and 100 mg of doxycycline for antibiotic coverage for equivocal Lyme's disease testing. Patient was reassessed multiple times during her stay in the emergency department. Patient's case was reviewed with Dr. Wilson; we agreed on diagnostic approach, treatment, disposition and plan. Patient was educated about today's findings and instructed on her treatment plan ; she verbalized understanding and agreement with this plan. Clinical Impression: Acute lumbar back pain. Bilateral shoulder pain. Equivocal Lyme testing. Decision-Making: Initially my differential diagnosis I considered disc herniation, spinal abscess, pyelonephritis, osteomyelitis, osteoarthritis exacerbation and other causes. Disposition: Patient discharged home in stable condition accompanied by family member; prior to departure she was reassessed and subjectively reported she was feeling better. She continued to rate her discomfort 7/10. Plan: Patient was encouraged to continue her current medications as prescribed. Patient was prescribed doxycycline 2 times a day for 14 days; she was encouraged to follow-up with her PCP before 14 days for reevaluation and possible extension of her prescription for an additional 14 days. Patient was prescribed Percocet one tablet every 6 hours as needed for severe pain. Patient was encouraged to use her walker for stabilization and support. Patient was encouraged to contact her PCP and request follow-up care and treatment and urine culture results in 24-36 hours. Patient was encouraged return ED for worsening/uncontrolled pain, fevers, urinary symptoms, genital numbness/tingling, bowel and bladder dysfunction, lower extremity weakness or any new/concerning symptoms.
[2017-05-02 15:22] LABS: 18KDIGG BAND NONREACTIVE (NONREACTIVE); 23KDIGG BAND NONREACTIVE (NONREACTIVE); 23KDIGM BAND NONREACTIVE (NONREACTIVE); 28KDIGG BAND NONREACTIVE (NONREACTIVE); 30KDIGG BAND REACTIVE (NONREACTIVE); 39KDIGG BAND NONREACTIVE (NONREACTIVE); 39KDIGM BAND NONREACTIVE (NONREACTIVE); 41KDIGG BAND REACTIVE (NONREACTIVE); 41KDIGM BAND NONREACTIVE (NONREACTIVE); 45KDIGG BAND NONREACTIVE (NONREACTIVE); 58KDIGG BAND REACTIVE (NONREACTIVE); 66KDIGG BAND NONREACTIVE (NONREACTIVE); 93KDIGG BAND NONREACTIVE (NONREACTIVE)
[2017-05-29] MEDS ORDERED: LORA5CHW10 PO (09:13)
[2017-05-29] MEDS ORDERED: DICY10CA12 PO (11:36)
[2017-05-29] MEDS ORDERED: TPRSR/50 PO (13:22)
[2017-05-29] MEDS ORDERED: PRT/40 PO (20:12)
[2017-05-29] MEDS ORDERED: LPT40 PO (20:12)
[2017-05-29] MEDS ORDERED: FLNIN/ NAE (20:12)
[2017-05-29] MEDS ORDERED: ISOS60TA25 PO (20:12)
[2017-05-29] MEDS ORDERED: CALC667C PO (20:12)
[2017-05-29] MEDS ORDERED: KFL500HP PO (20:12)
[2017-05-29] MEDS ORDERED: OXYC-643 PO (20:12)
[2017-05-29] MEDS ORDERED: ZLF/100 PO (20:12)
[2017-05-29] MEDS ORDERED: LORA0.5T12 PO (20:12)
[2017-05-29] MEDS ORDERED: ISOS30TA35 PO (20:12)
[2017-05-29] MEDS ORDERED: ASPI81TA28 PO (20:15)
[2017-05-29] MEDS ORDERED: INSDGIPEN SC (21:11)
[2017-05-30] MEDS ORDERED: CEPH500C2 PO (01:37)
[2017-05-30] MEDS ORDERED: CALC667C PO (01:45)
== END 2017-04-28 21:30 | disposition home or self-care (01) ==
LOC: C.EDB 13:05 → C.EDA 21:30
DX: M54.5 Low back pain (principal); M25.511 Pain in right shoulder; M25.512 Pain in left shoulder; I25.10 Atherosclerotic heart disease of native coronary artery without angina pectoris; E78.5 Hyperlipidemia, unspecified; N18.6 End stage renal disease; Z99.2 Dependence on renal dialysis; K21.9 Gastro-esophageal reflux disease without esophagitis; E66.01 Morbid (severe) obesity due to excess calories; E11.9 Type 2 diabetes mellitus without complications

== ENCOUNTER 2017-05-17 14:03 | Emergency (ER) | payer OTHER ==
[~2017-05-17] VITALS: Ht 167.6 cm; Wt 105.0 kg
[~2017-05-17 14:03] MED LIST changes: +DOXY100C2 PO; +OXYC-57 PO; -PERCOCET PO
[2017-05-17 14:10] VITALS: TEMP 36.9; Ht 167.6 cm; Wt 105.0 kg
[2017-05-17] MEDS: SODIUM CHLORIDE 0.9% 500ML 500 ML IV STA (16:30)
--- NOTE | 2017-05-17 16:41 | EMERGENCY ROOM VISIT NOTE ---
History Report prepared by Aleksandra: Hiral Salomon Under the Supervision of: Dr. Wojciech Flores M.D. 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 The patient states that she cannot stand or walk because of the pain. She is also having pain in her neck, shoulder, right knee, and hips. She has been taking Percocet for her pain. The pain is causing her to become nauseous. She is not confused according to her family. She did fall onto her right knee 1 month ago. She has been having pain since then. She has not followed with ortho. 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 Review of Systems See HPI for pertinent positives & negatives. A total of 10 systems reviewed and were otherwise negative. Past Medical & Surgical Medical Problems: (1) Allergic rhinitis (2) C. difficile colitis (3) CAD (coronary artery disease) (4) Carotid stenosis (5) Diabetic foot infection (6) DM type 2 (diabetes mellitus, type 2) (7) Dyslipidemia (8) ESRD (end stage renal disease) on dialysis (9) Fall (10) GERD (gastroesophageal reflux disease) (11) HTN (hypertension) (12) HX OF PAST NONCOMPLIANCE (13) Ischemic cardiomyopathy (14) Morbid obesity (15) Osteomyelitis (16) Tobacco use disorder (17) UGIB (upper gastrointestinal bleed) (18) Weakness Surgical Problems: (1) Hemodialysis access, AV graft Family History Diabetes mellitus FATHER MOTHER Heart disease FATHER MOTHER Hypertension FATHER MOTHER Kidney disease GRANDMOTHER Social History Smoking Status: Former Smoker Alcohol Use: none Drug Use: none Marital Status: Housing Status: lives with family Occupation Status: unemployed Current/Historical Medications Scheduled Aspirin (Aspirin 81), 1 TAB PO DAILY Atorvastatin (Lipitor), 40 MG PO QAM Calcium Acetate (Phoslo 667 Mg), 1 CAP PO TID Fluticasone Propionate (Nasal) (Allergy Nasal [place] 24 Ho), 1 SPRAY N/A DAILY Insulin Glargine (Lantus Solostar), 10 UNITS SC QPM Isosorbide Mononitrate (Isosorbide Mononitrate ER), 60 MG PO QAM Isosorbide Mononitrate Ext Rel (Imdur Ext Rel), 30 MG PO QAM Loratadine (Claritin Childrens), 2 TAB PO QPM Metoprolol Succinate (Metoprolol Succinate ER), 50 MG PO DAILY Pantoprazole (Protonix), 40 MG PO QAM Sertraline Hcl (Zoloft), 100 MG PO HS Scheduled PRN Dicyclomine Hcl (Dicyclomine Hcl), 1 MG PO QID PRN for CRAMPING Lorazepam (Ativan), 0.5 MG PO DAILY PRN for Anxiety Oxycodone/Acetaminophen 5MG/325MG (Percocet 5MG/325MG), 1 TAB PO Q6 PRN for Pain Oxycodone/Acetaminophen 5MG/325MG (Percocet 5MG/325MG), 1-2 TAB PO Q4H PRN for Pain Allergies Coded Allergies: Adhesives (Verified Allergy, Mild, RASH, SORES, 05/17/17) NO KNOWN DRUG ALLERGIES (Verified Allergy, Mild, ., 01/18/17) Latex1 -Allergic Contact Dermititis (Verified Allergy, Unknown, rash, 05/17) Pollen Extract (Verified Allergy, Unknown, rash, 05/17/17) Physical Exam Vital Signs Date Time Temp Pulse Resp B/P (MAP) Pulse Ox O2 Delivery O2 Flow Rate FiO2 05/17/17 22:50 69 20 97 Nasal Cannula 2.0 05/17/17 21:02 83 05/17/17 20:38 88 18 186/96 100 Nasal Cannula 2.0 05/17/17 19:08 97 18 115/83 96 Room Air 05/17/17 17:52 89 21 153/83 96 Room Air 05/17/17 17:00 92 05/17/17 16:30 90 15 158/94 95 Room Air 05/17/17 14:10 36.9 89 16 132/78 97 Room Air Physical Exam GENERAL: Patient is a healthy-appearing well-nourished female HEAD: Normocephalic atraumatic EYES: Ocular movements intact pupils equal and react to light OROPHARYNX mucous membranes are moist no exudates present no erythema or edema present NECK: Supple no nuchal rigidity CHEST: Good equal expansion LUNGS: Clear and equal to auscultation CARDIAC: Normal S1 and S2 ABDOMEN: Soft nontender no guarding BACK: No CVA tenderness tenderness with palpation to the midline L1-L5. EXTREMITIES: exquisitely tender to the right knee normal muscle strength in all groups no clubbing cyanosis or edema NEURO: Patient is following commands and answering questions appropriately. Alert and oriented x3 Cranial Nerves 2-12 grossly intact no loss of bowel or bladder control no evidence of saddle anesthesia Medical Decision & Procedures ER Provider Diagnostic Interpretation: X-ray results as stated below per interpretation by me and the radiologist. Radiology results as stated below per my review and radiologist interpretation: LEFT KNEE 2 VIEWS CLINICAL HISTORY: Left knee pain COMPARISON: None. DISCUSSION: No fractures or dislocations are visualized. There is fragmentation of the anterior tibial tuberosity. This is felt to be old. There are extensive vascular calcifications present. There is a probable subchondral cyst versus osteochondral defect involving the superior patella. There is no radiographic evidence of a joint effusion. There is mild medial joint compartment narrowing. IMPRESSION: 1. Mild degenerative change 2. No acute fractures 3. Small osteochondral defect versus subchondral cyst involving the superior pole of the patella Electronically signed by: Daniel Saenz M.D. 05/17/2017 6:31 PM Dictated Date/Time: 05/17/2017 6:30 PM R KNEE 1 OR 2 VIEWS ROUTINE CLINICAL HISTORY: Right knee pain. History of trauma one month ago. COMPARISON: None. DISCUSSION: No acute fractures are visualized. There is fragmentation of the anterior tibial tuberosity. This is felt to be chronic. There is a small soft tissue calcification adjacent to the lateral aspect of the lateral femoral condyle. There are moderately extensive vascular calcifications present. There is a small joint effusion. IMPRESSION: 1. Mild degenerative changes with mild medial joint compartment narrowing 2. Small joint effusion 3. No acute fractures. Electronically signed by: Daniel Saenz M.D. 05/17/2017 6:27 PM Dictated Date/Time: 05/17/2017 6:26 PM PELVIS 1 OR 2 VIEW ROUTINE CLINICAL HISTORY: Pain. Trauma one month ago. COMPARISON STUDY: 10/11/2016 FINDINGS: There are extensive vascular calcifications. No acute fractures are visualized. There is mild bilateral joint space narrowing consistent with mild degenerative change. No destructive lesions are evident. IMPRESSION: Mild degenerative change. No fractures are visualized. Electronically signed by: Daniel Saenz M.D. 05/17/2017 6:28 PM Dictated Date/Time: 05/17/2017 6:27 PM LUMBAR SPINE W/O CONTRAST CLINICAL HISTORY: 51 years-old Female presenting with Pt c/o low back pain . TECHNIQUE: Multisequence, multiplanar MR imaging of the lumbar spine was performed without the use of intravenous contrast. IV contrast: None. COMPARISON: 04/28/2017. FINDINGS: Localizer images: Unremarkable. Normal lumbar lordosis. Vertebral bodies maintain normal height, alignment, and bone marrow signal intensity. Mild intervertebral disc desiccation noted at L5-S1 without significant height loss. Remaining intervertebral discs preserved. No significant neural foraminal or spinal canal stenosis. Only mild degenerative changes of the facet joints at L4-5 and L5-S1 noted. Nonsignificant central disc protrusion at L5-S1. Mild edema noted in the region of the L3-4 spinous processes, present on prior exam. Decreased prominence of prevertebral edema noted. The small paraspinal fluid collection is no longer present. Nonspecific subcutaneous edema noted in the lower back. The spinal cord ends in good position at L1. Cauda equina normal in morphology. IMPRESSION: 1. Mild persistent paraspinal edema centered at the spinous processes of L4-5. This is likely either related to strain or degenerative in etiology. 2. Interval resolution of the small paraspinal fluid collection and prevertebral edema. 3. Mild facet arthropathy in the lower lumbar spine. Electronically signed by: Chava Streeter M.D. 05/17/2017 6:59 PM Dictated Date/Time: 05/17/2017 6:51 PM Laboratory Results 05/17/17 17:42 Red Blood Count 3.39, Mean Corpuscular Volume 95.6, Mean Corpuscular Hemoglobin 29.2, Mean Corpuscular Hemoglobin Concent 30.6, Mean Platelet Volume 9.8, Neutrophils (%) (Auto) 76.9, Lymphocytes (%) (Auto) 9.9, Monocytes (%) (Auto) 12.2, Eosinophils (%) (Auto) 0.6, Basophils (%) (Auto) 0.1, Neutrophils # (Auto ) 11.07, Lymphocytes # (Auto) 1.43, Monocytes # (Auto) 1.75, Eosinophils # (Auto ) 0.08, Basophils # (Auto) 0.01 05/17/17 17:42 Test 05/17/17 17:42 White Blood Count 14.38 K/uL (4.8-10.8) Red Blood Count 3.39 M/uL (4.2-5.4) Hemoglobin 9.9 g/dL (12.0-16.0) Hematocrit 32.4 % (37-47) Mean Corpuscular Volume 95.6 fL (80-100) Mean Corpuscular Hemoglobin 29.2 pg (25-34) Mean Corpuscular Hemoglobin Concent 30.6 g/dl (32-36) Platelet Count 387 K/uL (130-400) Mean Platelet Volume 9.8 fL (7.4-10.4) Neutrophils (%) (Auto) 76.9 % Lymphocytes (%) (Auto) 9.9 % Monocytes (%) (Auto) 12.2 % Eosinophils (%) (Auto) 0.6 % Basophils (%) (Auto) 0.1 % Neutrophils # (Auto) 11.07 K/uL (1.4-6.5) Lymphocytes # (Auto) 1.43 K/uL (1.2-3.4) Monocytes # (Auto) 1.75 K/uL (0.11-0.59) Eosinophils # (Auto) 0.08 K/uL (0-0.5) Basophils # (Auto) 0.01 K/uL (0-0.2) RDW Standard Deviation 50.5 fL (36.4-46.3) RDW Coefficient of Variation 14.4 % (11.5-14.5) Immature Granulocyte % (Auto) 0.3 % Immature Granulocyte # (Auto) 0.04 K/uL (0.00-0.02) Anion Gap 12.0 mmol/L (3-11) Est Creatinine Clear Calc Drug Dose 11.3 ml/min Estimated GFR () 6.9 Estimated GFR (Non- 5.9 BUN/Creatinine Ratio 6.3 (10-20) Calcium Level 9.7 mg/dl (8.5-10.1) Total Bilirubin 0.5 mg/dl (0.2-1) Direct Bilirubin 0.2 mg/dl (0-0.2) Aspartate Amino Transf (AST/SGOT) 8 U/L (15-37) Alanine Aminotransferase (ALT/SGPT) 8 U/L (12-78) Alkaline Phosphatase 67 U/L (45-117) Total Protein 7.8 gm/dl (6.4-8.2) Albumin 2.6 gm/dl (3.4-5.0) Lipase 83 U/L (73-393) Labs reviewed by ED physician. Medications Administered Medications (Trade) Dose Ordered Sig/Bladimir Route Start Time Stop Time Status Last Admin Dose Admin Hydromorphone HCl (Dilaudid Inj) 1 mg NOW STAT IV 05/17/17 16:30 05/17/17 16:34 DC 05/17/17 17:15 1 MG Lidocaine (Lidoderm Patch 5%) 1 patch NOW STAT TD 05/17/17 16:30 05/17/17 16:34 DC 05/17/17 20:35 1 PATCH Ketorolac Tromethamine (Toradol Inj) 30 mg NOW STAT IV 05/17/17 16:30 05/17/17 16:34 DC 05/17/17 17:12 30 MG Sodium Chloride 500 ml @ 999 mls/hr Q31M STAT IV 05/17/17 16:30 05/17/17 17:00 DC 05/17/17 16:30 999 MLS/HR Ondansetron HCl (Zofran Inj) 4 mg NOW STAT IV 05/17/17 16:30 05/17/17 16:34 DC 05/17/17 17:14 4 MG Hydromorphone HCl (Dilaudid Inj) 0.5 mg NOW STAT IV 05/17/17 23:47 05/17/17 23:48 DC 05/18/17 00:06 0.5 MG ED Course 1626: Past medical records reviewed. The patient was evaluated in room C3. A complete history and physical examination was performed. 1630: Zofran Inj 4 mg IV, NSS 500 ml @ 999 mls/hr IV, Toradol Inj 30 mg IV, Lidocaine 1 patch TD, Dilaudid Inj 1 mg IV. 1725: I reevaluated the patient. She is feeling better. 1945: I reevaluated the patient. I discussed the results with her. I spoke with the window caser about placement into [facility]. 2347: Dilaudid Inj 0.5 mg IV. 0014: Upon reexamination the patient is doing well. I discussed results and treatment plan with the patient. She verbalizes agreement and understanding. She will follow up with [facility] tomorrow. The patient is ready for discharge. 0030: Percocet 1 homepack PO. Medical Decision Differential diagnosis: Etiologies such as metabolic, infection, hypo/hyperglycemia, electrolyte abnormalities, cardiac sources, intracerebral event, toxicologic, neurologic, as well as others were entertained. This is a 51-year-old female who presents emergency Department with a number of complaints. The patient is on dialysis Tuesday and Tuesday. She reports she is unable to walk due to the pain in her lower back as well as her bilateral knees. The patient is refusing to walk for me and is belligerent upon arrival to the emergency department. An IV was established, the patient was given a Lidoderm patch, Dilaudid, Toradol. Repeat examination revealed improvement the patient's symptoms. Due to the inability the patient walk she was sent for an MRI of the spine. This showed improvement in the previous MRI. I did discuss the case with case management as I felt the patient would be a good candidate for rehabilitation. Medication Reconcilliation Current Medication List: was personally reviewed by me Blood Pressure Screening Patient's blood pressure: Elevated blood pressure Blood pressure disposition: Referred to PCP Impression Primary Impression: Back pain Scribe Attestation The scribe's documentation has been prepared under my direction and personally reviewed by me in its entirety. I confirm that the note above accurately reflects all work, treatment, procedures, and medical decision making performed by me. Departure Information Dispostion Home / Self-Care Prescriptions Oxycodone/Acetaminophen 5MG/325MG (PERCOCET 5MG/325MG) Tab 1-2 TAB PO Q4H Y for Pain, #14 TAB Prov: Wojceich Flores MD 05/18/17 Referrals Tamy Becerra D.O. (PCP) Forms HOME CARE DOCUMENTATION FORM, IMPORTANT VISIT INFORMATION, WORK / SCHOOL INSTRUCTIONS Patient Instructions Back Pain - [facility], ED Exercises Lumbar Muscles, My [facility] [employer] Additional Instructions Follow up with [facility] tomorrow You received narcotic or benzodiazepene medication while in the emergency room today. This is an addictive medication that may cause drowziness as well as constipation. Do not drive, operate heavy machinery, or drink alcohol under the influence of this medication. You have been examined and treated today on an emergency basis only. This is not a substitute for, or an effort to provide, complete comprehensive medical care. It is impossible to recognize and treat all injuries or illnesses in a single emergency department visit. It is therefore important that you follow up closely with Dr Becerra. Call as soon as possible for an appointment. Thank you for your time and consideration. I look forward to speaking with you again soon. Please don't hesitate to call us if you have any questions. Problem Qualifiers Primary Impression: Back pain Back pain location: low back pain Chronicity: acute Back pain laterality: midline Sciatica presence: with sciatica Sciatica laterality: bilateral sciatica Qualified Codes: M54.42 - Lumbago with sciatica, left side; M54.41 - Lumbago with sciatica, right side
[2017-05-17] MEDS: KETOROLAC TROMETHAMINE 30 MG/ML VIAL IV STA (17:12)
[2017-05-17] MEDS: ONDANSETRON INJ 2 MG/ML 2 ML VIAL IV STA (17:14)
[2017-05-17] MEDS: HYDROmorphone INJ 1 MG/ML SYR IV STA (17:15)
[2017-05-17] MEDS: PROCHLORPERAZINE 5 MG/ML 2 ML VIAL IV STA (17:29)
[2017-05-17] MEDS: DiphenhydrAMINE HCL 50 MG/ML VIAL IV STA (17:29)
[2017-05-17 17:49] LABS: BASO % 0.1 %; BASO ABS # 0.01 K/uL (0-0.2); COMPLETE YES; EOS % 0.6 %; HEMATOCRIT 32.4 % (37-47); IG% 0.3 %; LYMPH % 9.9 %; LYMPH ABS # 1.43 K/uL (1.2-3.4); MEAN CELL VOLUME 95.6 fL (80-100); MEAN CORPUSCULAR HEMOGLOBIN 29.2 pg (25-34); MEAN CORPUSCULAR HGB CONC 30.6 g/dl (32-36); MEAN PLATELET VOLUME 9.8 fL (7.4-10.4); MONO % 12.2 %; NEUT % 76.9 %; PLATELET COUNT 387 K/uL (130-400); RED BLOOD COUNT 3.39 M/uL (4.2-5.4); WHITE BLOOD COUNT 14.38 K/uL (4.8-10.8)
--- NOTE | 2017-05-17 18:28 | DIAGNOSTIC IMAGING REPORT ---
R KNEE 1 OR 2 VIEWS ROUTINE CLINICAL HISTORY: Right knee pain. History of trauma one month ago. COMPARISON: None. DISCUSSION: No acute fractures are visualized. There is fragmentation of the anterior tibial tuberosity. This is felt to be chronic. There is a small soft tissue calcification adjacent to the lateral aspect of the lateral femoral condyle. There are moderately extensive vascular calcifications present. There is a small joint effusion. IMPRESSION: 1. Mild degenerative changes with mild medial joint compartment narrowing 2. Small joint effusion 3. No acute fractures. Electronically signed by: Daniel Saenz M.D. 05/17/2017 6:27 PM Dictated Date/Time: 05/17/2017 6:26 PM
[2017-05-17 18:29] LABS: BUN/CREATININE RATIO 6.3 (10-20); CALCIUM 9.7 mg/dl (8.5-10.1); POTASSIUM 4.3 mmol/L (3.5-5.1)
--- NOTE | 2017-05-17 18:29 | DIAGNOSTIC IMAGING REPORT ---
PELVIS 1 OR 2 VIEW ROUTINE CLINICAL HISTORY: Pain. Trauma one month ago. COMPARISON STUDY: 10/11/2016 FINDINGS: There are extensive vascular calcifications. No acute fractures are visualized. There is mild bilateral joint space narrowing consistent with mild degenerative change. No destructive lesions are evident. IMPRESSION: Mild degenerative change. No fractures are visualized. Electronically signed by: Daniel Saenz M.D. 05/17/2017 6:28 PM Dictated Date/Time: 05/17/2017 6:27 PM
[2017-05-17 18:30] LABS: CREATININE 7.3 mg/dl (0.60-1.20)
--- NOTE | 2017-05-17 18:33 | DIAGNOSTIC IMAGING REPORT ---
LEFT KNEE 2 VIEWS CLINICAL HISTORY: Left knee pain COMPARISON: None. DISCUSSION: No fractures or dislocations are visualized. There is fragmentation of the anterior tibial tuberosity. This is felt to be old. There are extensive vascular calcifications present. There is a probable subchondral cyst versus osteochondral defect involving the superior patella. There is no radiographic evidence of a joint effusion. There is mild medial joint compartment narrowing. IMPRESSION: 1. Mild degenerative change 2. No acute fractures 3. Small osteochondral defect versus subchondral cyst involving the superior pole of the patella Electronically signed by: Daniel Saenz M.D. 05/17/2017 6:31 PM Dictated Date/Time: 05/17/2017 6:30 PM
--- NOTE | 2017-05-17 19:00 | DIAGNOSTIC IMAGING REPORT ---
LUMBAR SPINE W/O CONTRAST CLINICAL HISTORY: 51 years-old Female presenting with Pt c/o low back pain . TECHNIQUE: Multisequence, multiplanar MR imaging of the lumbar spine was performed without the use of intravenous contrast. IV contrast: None. COMPARISON: 04/28/2017. FINDINGS: Localizer images: Unremarkable. Normal lumbar lordosis. Vertebral bodies maintain normal height, alignment, and bone marrow signal intensity. Mild intervertebral disc desiccation noted at L5-S1 without significant height loss. Remaining intervertebral discs preserved. No significant neural foraminal or spinal canal stenosis. Only mild degenerative changes of the facet joints at L4-5 and L5-S1 noted. Nonsignificant central disc protrusion at L5-S1. Mild edema noted in the region of the L3-4 spinous processes, present on prior exam. Decreased prominence of prevertebral edema noted. The small paraspinal fluid collection is no longer present. Nonspecific subcutaneous edema noted in the lower back. The spinal cord ends in good position at L1. Cauda equina normal in morphology. IMPRESSION: 1. Mild persistent paraspinal edema centered at the spinous processes of L4-5. This is likely either related to strain or degenerative in etiology. 2. Interval resolution of the small paraspinal fluid collection and prevertebral edema. 3. Mild facet arthropathy in the lower lumbar spine. Electronically signed by: Chava Streeter M.D. 05/17/2017 6:59 PM Dictated Date/Time: 05/17/2017 6:51 PM
[2017-05-17] MEDS: LIDODERM (LIDOCAINE) PATCH 5% ONE (20:35)
[2017-05-17] MEDS: LIDODERM (LIDOCAINE) PATCH 5% TD STA (20:35)
[2017-05-18] MEDS: HYDROmorphone INJ 0.5 MG/0.5 ML SYR IV STA (00:06)
[2017-05-18] MEDS ORDERED: OXYC-57 PO (00:18)
[2017-05-18] MEDS: PERCOCET HOME PACK PO ONE (00:30)
[2017-05-18 00:58] VITALS: BP 162/81; PULSE 70; O2SAT 98
[2017-05-29] MEDS ORDERED: LORA5CHW10 PO (09:13)
[2017-05-29] MEDS ORDERED: DICY10CA12 PO (11:36)
[2017-05-29] MEDS ORDERED: TPRSR/50 PO (13:22)
[2017-05-29] MEDS ORDERED: LORA0.5T12 PO (20:12)
[2017-05-29] MEDS ORDERED: CALC667C PO (20:12)
[2017-05-29] MEDS ORDERED: LPT40 PO (20:12)
[2017-05-29] MEDS ORDERED: ISOS60TA25 PO (20:12)
[2017-05-29] MEDS ORDERED: FLNIN/ NAE (20:12)
[2017-05-29] MEDS ORDERED: ISOS30TA35 PO (20:12)
[2017-05-29] MEDS ORDERED: ZLF/100 PO (20:12)
[2017-05-29] MEDS ORDERED: PRT/40 PO (20:12)
[2017-05-29] MEDS ORDERED: OXYC-643 PO (20:12)
[2017-05-29] MEDS ORDERED: KFL500HP PO (20:12)
[2017-05-29] MEDS ORDERED: ASPI81TA28 PO (20:15)
[2017-05-29] MEDS ORDERED: INSDGIPEN SC (21:11)
[2017-05-30] MEDS ORDERED: CEPH500C2 PO (01:37)
[2017-05-30] MEDS ORDERED: CALC667C PO (01:45)
== END 2017-05-18 00:59 | disposition home or self-care (01) ==
LOC: C.EDB 14:05 → C.EDC 05-18 00:59
DX: M54.5 Low back pain (principal); M25.561 Pain in right knee; M25.562 Pain in left knee; I12.0 Hypertensive chronic kidney disease with stage 5 chronic kidney disease or end stage renal disease; N18.6 End stage renal disease; E11.9 Type 2 diabetes mellitus without complications; E78.5 Hyperlipidemia, unspecified; K21.9 Gastro-esophageal reflux disease without esophagitis; I25.10 Atherosclerotic heart disease of native coronary artery without angina pectoris; M86.9 Osteomyelitis, unspecified; F17.200 Nicotine dependence, unspecified, uncomplicated; Z99.2 Dependence on renal dialysis; Z91.81 History of falling; Z87.891 Personal history of nicotine dependence; Z79.82 Long term (current) use of aspirin; Z79.4 Long term (current) use of insulin; Z79.899 Other long term (current) drug therapy; Z91.040 Latex allergy status; Z91.09 Other allergy status, other than to drugs and biological substances; Z83.3 Family history of diabetes mellitus; Z82.49 Family history of ischemic heart disease and other diseases of the circulatory system; Z84.1 Family history of disorders of kidney and ureter

== ENCOUNTER 2017-06-03 06:21 | Emergency (ER) | payer OTHER ==
[~2017-06-03] VITALS: Ht 167.6 cm; Wt 107.1 kg
[~2017-06-03 06:21] MED LIST changes: -ASPI-435 PO; +ASPI81TA28 PO; -ATV/1 PO; +CALC667C PO; -CALC667C4 PO; +CEPH500C2 PO; +DICY10CA12 PO; -DOXY100C2 PO; +FLNIN/ NAE; -FLUT50SP45; -IMDSR30 PO; +INSDGIPEN SC; -ISOS30TA3 PO; +ISOS30TA35 PO; +ISOS60TA25 PO; +LORA0.5T12 PO; +LORA5CHW10 PO; -LPT/40 PO; +LPT40 PO; -METO50TA16 PO; -OXYC-57 PO; +OXYC-643 PO; -PANT40TA PO; +PRT/40 PO; -SERT1TAB68 PO; +TPRSR/50 PO; -TRMCR515 TOP; +ZLF/100 PO
[2017-06-03 06:24] VITALS: PULSE 87; TEMP 37.1; O2SAT 93; Ht 167.6 cm; Wt 107.1 kg
[2017-06-03] MEDS ORDERED: LACT1CAP6 PO (06:43)
[2017-06-03] MEDS ORDERED: ALBUT/IPRATROP 3MG/0.5MG NEB 3 ML VIAL INH ONE (06:45)
[2017-06-03] MEDS ORDERED: METHYLPREDNISOLONE 125 MG VIAL IV STA (06:45)
--- NOTE | 2017-06-03 07:03 | EMERGENCY ROOM VISIT NOTE ---
History Report prepared by Aleksandra: Allyson Izquierdo Under the Supervision of: Dr. Wojciech Flores M.D. First contact with patient: 06:32 Chief Complaint: REFERRED BY DOCTOR Stated Complaint: REFERRED BY NURSE History of Present Illness The patient is a 51 year old female who presents to the Emergency Room from her morning dialysis appointment. She was at dialysis today and the fistula in her left arm was not working. She states that the nurse called Dr. Jones of vascular surgery and was told to come to the ED for further evaluation. The patient has no complaints at this time. 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 Review of Systems See HPI for pertinent positives & negatives. A total of 10 systems reviewed and were otherwise negative. Past Medical & Surgical Medical Problems: (1) Allergic rhinitis (2) Arthritis (3) C. difficile colitis (4) CAD (coronary artery disease) (5) Carotid stenosis (6) Diabetic foot infection (7) DM type 2 (diabetes mellitus, type 2) (8) Dyslipidemia (9) ESRD (end stage renal disease) on dialysis (10) Fall (11) GERD (gastroesophageal reflux disease) (12) HTN (hypertension) (13) HX OF PAST NONCOMPLIANCE (14) Ischemic cardiomyopathy (15) Morbid obesity (16) Osteomyelitis (17) Sepsis (18) Tobacco use disorder (19) UGIB (upper gastrointestinal bleed) (20) Weakness Surgical Problems: (1) Hemodialysis access, AV graft Family History Diabetes mellitus FATHER MOTHER Heart disease FATHER MOTHER Hypertension FATHER MOTHER Kidney disease GRANDMOTHER Social History Smoking Status: Former Smoker Alcohol Use: none Drug Use: none Marital Status: Housing Status: lives with family Occupation Status: unemployed Current/Historical Medications Scheduled Aspirin (Aspirin Ec), 81 MG PO DAILY Atorvastatin (Atorvastatin Calcium), 40 MG PO QAM Calcium Acetate (Phosphate Bin (Phoslo 667 Mg), 2,001 MG PO TIDM Cephalexin Monohydrate (Keflex), 500 MG PO BID Insulin Glargine (Lantus Solostar), 12 UNITS SC QPM Isosorbide Mononitrate Ext Rel (Imdur Ext Rel), 30 MG PO QAM Isosorbide Mononitrate Ext Rel (Imdur Ext Rel), 60 MG PO QAM Lactobacillus (Probiotic), 2 CAP PO BID Metoprolol Succinate (Metoprolol Succinate ER), 50 MG PO DAILY Pantoprazole (Pantoprazole Sodium), 40 MG PO QAM Sertraline HCl (Sertraline HCl), 100 MG PO HS Scheduled PRN Calcium Acetate (Phosphate Bin (Phoslo 667 Mg), 2 CAP PO UD PRN for snacks Dicyclomine Hcl (Dicyclomine Hcl), 10 MG PO QID PRN for Cramping Fluticasone Propionate (Fluticasone Propionate), 2 SPRAYS NAYAN DAILY PRN for Allergy Symptoms Loratadine (Claritin Childrens), 5 MG PO DAILY PRN for Allergy Symptoms Lorazepam (Lorazepam), 0.5 MG PO DAILY PRN for Anxiety Oxycodone/Acetaminophen 5MG/325MG (Oxycodone/Acetaminophen 5MG/325MG), 1-2 TABS PO Q4H PRN for Pain Allergies Coded Allergies: Adhesives (Verified Allergy, Mild, RASH, SORES, 06/03/17) NO KNOWN DRUG ALLERGIES (Verified Allergy, Mild, ., 06/03/17) Latex1 -Allergic Contact Dermititis (Verified Allergy, Unknown, rash, ) Pollen Extract (Verified Allergy, Unknown, rash, 06/03/17) Physical Exam Vital Signs Date Time Temp Pulse Resp B/P (MAP) Pulse Ox O2 Delivery O2 Flow Rate FiO2 06/03/17 08:45 208/124 06/03/17 06:24 37.1 87 18 189/100 93 Room Air Physical Exam GENERAL: Patient is a healthy-appearing well-nourished 51 year old female. HEAD: Normocephalic atraumatic EYES: Ocular movements intact pupils equal and react to light OROPHARYNX mucous membranes are moist no exudates present no erythema or edema present NECK: Supple no nuchal rigidity CHEST: Good equal expansion LUNGS: Clear and equal to auscultation CARDIAC: Normal S1 and S2 ABDOMEN: Soft nontender no guarding BACK: No CVA tenderness EXTREMITIES: No pain upon palpation normal muscle strength in all groups no clubbing cyanosis or edema. Fistula in place in left arm, no bruits palpable. NEURO: Patient is following commands and answering questions appropriately. Alert and oriented x3 Cranial Nerves 2-12 grossly intact Medical Decision & Procedures Laboratory Results 06/03/17 07:29 Red Blood Count 3.12, Mean Corpuscular Volume 92.0, Mean Corpuscular Hemoglobin 29.5, Mean Corpuscular Hemoglobin Concent 32.1, Mean Platelet Volume 10.1, Neutrophils (%) (Auto) 77.1, Lymphocytes (%) (Auto) 13.4, Monocytes (%) (Auto) 6.8, Eosinophils (%) (Auto) 2.1, Basophils (%) (Auto) 0.3, Neutrophils # (Auto) 9.11, Lymphocytes # (Auto) 1.58, Monocytes # (Auto) 0.80, Eosinophils # (Auto) 0.25, Basophils # (Auto) 0.04 06/03/17 07:29 Test 06/03/17 07:29 06/03/17 07:40 White Blood Count 11.81 K/uL (4.8-10.8) Red Blood Count 3.12 M/uL (4.2-5.4) Hemoglobin 9.2 g/dL (12.0-16.0) Hematocrit 28.7 % (37-47) Mean Corpuscular Volume 92.0 fL (80-100) Mean Corpuscular Hemoglobin 29.5 pg (25-34) Mean Corpuscular Hemoglobin Concent 32.1 g/dl (32-36) Platelet Count 426 K/uL (130-400) Mean Platelet Volume 10.1 fL (7.4-10.4) Neutrophils (%) (Auto) 77.1 % Lymphocytes (%) (Auto) 13.4 % Monocytes (%) (Auto) 6.8 % Eosinophils (%) (Auto) 2.1 % Basophils (%) (Auto) 0.3 % Neutrophils # (Auto) 9.11 K/uL (1.4-6.5) Lymphocytes # (Auto) 1.58 K/uL (1.2-3.4) Monocytes # (Auto) 0.80 K/uL (0.11-0.59) Eosinophils # (Auto) 0.25 K/uL (0-0.5) Basophils # (Auto) 0.04 K/uL (0-0.2) RDW Standard Deviation 47.9 fL (36.4-46.3) RDW Coefficient of Variation 14.6 % (11.5-14.5) Immature Granulocyte % (Auto) 0.3 % Immature Granulocyte # (Auto) 0.03 K/uL (0.00-0.02) Est Creatinine Clear Calc Drug Dose 7.6 ml/min Estimated GFR () 4.2 Estimated GFR (Non- 3.6 BUN/Creatinine Ratio 7.3 (10-20) Calcium Level 9.6 mg/dl (8.5-10.1) Phosphorus Level 7.6 mg/dl (2.5-4.9) Albumin 2.8 gm/dl (3.4-5.0) Bedside Hemoglobin 10.2 g/dl (12.0-16.0) Bedside Hematocrit 30 % (37-47) Bedside Sodium 134 mEq/L (135-144) Bedside Potassium 4.3 mEq/L (3.3-5.0) Bedside Chloride 97 mEq/L (101-112) Bedside Total CO2 23 mEq/l (24-31) Anion Gap 19.0 mmol/L (16-25) Bedside Blood Urea Nitrogen 79 mg/dl (7-18) Bedside Creatinine 12.1 mg/dl (0.6-1.3) Bedside Glucose (other) 138 mg/dl (70-99) Bedside Ionized Calcium (Malika) 1.16 mmol/l (1.12-1.32) Labs reviewed by ED physician. ECG Indication: other Rate (beats per minute): 83 Rhythm: normal sinus Findings: no acute ischemic change, no ectopy ED Course 0632: Past medical records reviewed. The patient was evaluated in room B4B. A complete history and physical examination was performed. 0641: I spoke with Dr. Jones of vascular surgery. He states that he was never called this morning regarding the patient's fistula. He is not available to see her today. He would like her potassium checked. 0645: Solu-Medrol 125 mg IV, Duoneb 12 ml INH 0822: I discussed the patient's results with Dr. Jones. He suspects that she has not had dialysis for a week and he will get her on the schedule for Tuesday. 0831: I reassessed the patient at this time. She is feeling better and resting comfortably. I discussed the results and treatment plan with the patient. I answered all pertaining questions that she had. She expressed understanding and verbalized agreement. The patient will be discharged home. Medical Decision This is a 51-year-old female who presents emergency department after her fistula malfunction at dialysis today. The patient's potassium is stable. I did discuss the case with Dr. Jones is unable fit the patient in today. The patient is not hypoxic here in emergency department and denies any chest pain or shortness of breath. Based on these findings along with the patient's potassium I feel she can be safely discharged home for follow-up in Dr. Jones' s office on Tuesday. The patient last had dialysis this past Tuesday when she was admitted to the hospital. I strongly encouraged her to return to the emergency department she develops severe chest pain. Medication Reconcilliation Current Medication List: was personally reviewed by me Blood Pressure Screening Patient's blood pressure: Elevated blood pressure Blood pressure disposition: Referred to PCP Consults Time Called: 637 Consulting Physician: Dr. Jones Returned Call: [address] Jones of vascular surgery. He states that he was never called this morning regarding the patient's fistula. He is not available to see her today. He would like her potassium checked. Additional Consults: Time Called: 817 Consulted Physician: Dr. Jones Returned Call: 08 Additional Comments: I discussed the patient's results with Dr. Jones. He suspects that she has not had dialysis for a week and he will get her on the schedule for Tuesday. Impression Primary Impression: Dialysis AV fistula malfunction Scribe Attestation The scribe's documentation has been prepared under my direction and personally reviewed by me in its entirety. I confirm that the note above accurately reflects all work, treatment, procedures, and medical decision making performed by me. Departure Information Dispostion Home / Self-Care Referrals Tamy Becerra D.O. (PCP) Andrea Jones M.D. Forms HOME CARE DOCUMENTATION FORM, IMPORTANT VISIT INFORMATION, WORK / SCHOOL INSTRUCTIONS Patient Instructions My [facility] Additional Instructions Follow up with Dr Jones's office Tuesday You were found to have an elevated blood pressure today (>120 sytolic or >90 diastolic). Per medicare guidelines, you need to follow up with this blood pressure screening with your Primary Care Physician (PCP). For a new PCP call [phone]. You have been examined and treated today on an emergency basis only. This is not a substitute for, or an effort to provide, complete comprehensive medical care. It is impossible to recognize and treat all injuries or illnesses in a single emergency department visit. It is therefore important that you follow up closely with Dr Becerra. Call as soon as possible for an appointment. Thank you for your time and consideration. I look forward to speaking with you again soon. Please don't hesitate to call us if you have any questions. Problem Qualifiers Primary Impression: Dialysis AV fistula malfunction Encounter type: initial encounter Qualified Codes: T82.590A - Other mechanical complication of surgically created arteriovenous fistula, initial encounter
[2017-06-03 07:46] LABS: HEMATOCRIT 28.7 % (37-47); MEAN CORPUSCULAR HEMOGLOBIN 29.5 pg (25-34); MEAN CORPUSCULAR HGB CONC 32.1 g/dl (32-36); MEAN PLATELET VOLUME 10.1 fL (7.4-10.4); PLATELET COUNT 426 K/uL (130-400); RED BLOOD COUNT 3.12 M/uL (4.2-5.4); WHITE BLOOD COUNT 11.81 K/uL (4.8-10.8)
[2017-06-03 08:11] LABS: BASO % 0.3 %; BASO ABS # 0.04 K/uL (0-0.2); COMPLETE YES; EOS % 2.1 %; IG% 0.3 %; LYMPH % 13.4 %; LYMPH ABS # 1.58 K/uL (1.2-3.4); MONO % 6.8 %; NEUT % 77.1 %
[2017-06-03 08:15] LABS: BUN/CREATININE RATIO 7.3 (10-20); CALCIUM 9.6 mg/dl (8.5-10.1); PHOSPHORUS 7.6 mg/dl (2.5-4.9); POTASSIUM 4.4 mmol/L (3.5-5.1)
[2017-06-03 08:45] VITALS: BP 208/124
[2017-06-03 09:02] LABS: ISTAT CREATININE 12.1 mg/dl (0.6-1.3); ISTAT HEMOGLOBIN 10.2 g/dl (12.0-16.0); ISTAT IONIZED CALCIUM 1.16 mmol/l (1.12-1.32)
== END 2017-06-03 09:20 | disposition home or self-care (01) ==
LOC: C.EDB 06:22
DX: T82.590A Other mechanical complication of surgically created arteriovenous fistula, initial encounter (principal); X58.XXXA Exposure to other specified factors, initial encounter; J30.9 Allergic rhinitis, unspecified; M19.90 Unspecified osteoarthritis, unspecified site; I25.10 Atherosclerotic heart disease of native coronary artery without angina pectoris; E11.22 Type 2 diabetes mellitus with diabetic chronic kidney disease; E78.5 Hyperlipidemia, unspecified; N18.6 End stage renal disease; I12.0 Hypertensive chronic kidney disease with stage 5 chronic kidney disease or end stage renal disease; K21.9 Gastro-esophageal reflux disease without esophagitis; E66.01 Morbid (severe) obesity due to excess calories; I65.29 Occlusion and stenosis of unspecified carotid artery; M86.9 Osteomyelitis, unspecified; Z99.2 Dependence on renal dialysis; Z95.828 Presence of other vascular implants and grafts; Z79.82 Long term (current) use of aspirin; Z79.4 Long term (current) use of insulin; Z87.891 Personal history of nicotine dependence; Z83.3 Family history of diabetes mellitus; Z82.49 Family history of ischemic heart disease and other diseases of the circulatory system

== ENCOUNTER 2017-06-04 11:37 | Emergency (ER) | payer OTHER ==
[~2017-06-04] VITALS: Ht 167.6 cm; Wt 107.6 kg
[~2017-06-04 11:37] MED LIST changes: +LACT1CAP6 PO
[2017-06-04 11:48] VITALS: TEMP 37.3; Ht 167.6 cm; Wt 107.6 kg
[2017-06-04] MEDS ORDERED: TRAMADOL HCL 50 MG TAB PO STA (12:43)
[2017-06-04] MEDS ORDERED: HYDROCODONE/ACETAMOPHEN 5/325MG TAB PO STA (12:43)
--- NOTE | 2017-06-04 13:22 | EMERGENCY ROOM VISIT NOTE ---
History Report prepared by Aleksandra: Allyson Izquierdo Under the Supervision of: Dr. Karl Young M.D. First contact with patient: 12:05 Chief Complaint: SHOULDER PAIN Stated Complaint: RIGHT SHOULDER PAIN, NECK PAIN History of Present Illness The patient is a 51 year old white female with a past medical history of right shoulder tendonitis and CKD who presents to the ED with a cc of right shoulder pain beginning last night. Positive right-sided neck pain, right arm pain, numbness in right hand. Pt notes nausea secondary to pain. Negative recent trauma, falls, injury. Pt thinks that the cold weather makes her sx worse. Pt was seen in the ED yesterday for malfunction of her dialysis fistula in [facility] and discharged home. Pt reports a history of a bulging disc in her back. She rates her current pain as a 10/10 in severity. Source of History: patient Onset: last night Position: shoulder (right) Symptom Intensity: 10/10 Timing: constant Associated Symptoms: + neck pain, + nausea, + numbness (right hand) Review of Systems See HPI for pertinent positives and negatives. A total of ten systems were reviewed and were otherwise negative. Past Medical & Surgical Medical Problems: (1) Allergic rhinitis (2) Arthritis (3) C. difficile colitis (4) CAD (coronary artery disease) (5) Carotid stenosis (6) Diabetic foot infection (7) DM type 2 (diabetes mellitus, type 2) (8) Dyslipidemia (9) ESRD (end stage renal disease) on dialysis (10) Fall (11) GERD (gastroesophageal reflux disease) (12) HTN (hypertension) (13) HX OF PAST NONCOMPLIANCE (14) Ischemic cardiomyopathy (15) Morbid obesity (16) Osteomyelitis (17) Sepsis (18) Tobacco use disorder (19) UGIB (upper gastrointestinal bleed) (20) Weakness Surgical Problems: (1) Hemodialysis access, AV graft Family History Diabetes mellitus FATHER MOTHER Heart disease FATHER MOTHER Hypertension FATHER MOTHER Kidney disease GRANDMOTHER Social History Smoking Status: Former Smoker Alcohol Use: none Drug Use: none Marital Status: Housing Status: lives with family Occupation Status: unemployed Current/Historical Medications Scheduled Aspirin (Aspirin Ec), 81 MG PO DAILY Atorvastatin (Atorvastatin Calcium), 40 MG PO QAM Calcium Acetate (Phosphate Bin (Phoslo 667 Mg), 2,001 MG PO TIDM Cephalexin Monohydrate (Keflex), 500 MG PO BID Insulin Glargine (Lantus Solostar), 12 UNITS SC QPM Isosorbide Mononitrate Ext Rel (Imdur Ext Rel), 30 MG PO QAM Isosorbide Mononitrate Ext Rel (Imdur Ext Rel), 60 MG PO QAM Lactobacillus (Probiotic), 2 CAP PO BID Metoprolol Succinate (Metoprolol Succinate ER), 50 MG PO DAILY Pantoprazole (Pantoprazole Sodium), 40 MG PO QAM Sertraline HCl (Sertraline HCl), 100 MG PO HS Scheduled PRN Calcium Acetate (Phosphate Bin (Phoslo 667 Mg), 2 CAP PO UD PRN for snacks Dicyclomine Hcl (Dicyclomine Hcl), 10 MG PO QID PRN for Cramping Fluticasone Propionate (Fluticasone Propionate), 2 SPRAYS NAYAN DAILY PRN for Allergy Symptoms Loratadine (Claritin Childrens), 5 MG PO DAILY PRN for Allergy Symptoms Lorazepam (Lorazepam), 0.5 MG PO DAILY PRN for Anxiety Oxycodone/Acetaminophen 5MG/325MG (Oxycodone/Acetaminophen 5MG/325MG), 1-2 TABS PO Q4H PRN for Pain Allergies Coded Allergies: Adhesives (Verified Allergy, Mild, RASH, SORES, 06/04/17) NO KNOWN DRUG ALLERGIES (Verified Allergy, Mild, ., 06/04/17) Latex1 -Allergic Contact Dermititis (Verified Allergy, Unknown, rash, ) Pollen Extract (Verified Allergy, Unknown, rash, 06/04/17) Physical Exam Vital Signs Date Time Temp Pulse Resp B/P (MAP) Pulse Ox O2 Delivery O2 Flow Rate FiO2 06/04/17 14:38 84 20 147/75 94 06/04/17 13:51 86 20 172/96 93 Room Air 06/04/17 11:48 37.3 90 17 197/101 95 Room Air Physical Exam GENERAL: Awake, alert, well-appearing, NAD HENT: Normocephalic, atraumatic. EYES: Normal conjunctiva. Sclera non-icteric. NECK: Supple. No nuchal rigidity. FROM. Mild neck pain. RESPIRATORY: CTAB, no rhonchi, wheezing, crackles CARDIAC: RRR, no MRG ABDOMEN: Soft, NTND, BS+ MSK: No chest wall TTP. Anterior right shoulder pain, no scapular pain. NVI distally, sensory and motor intact to M/U/R nerves. Pain with internal/external rotation, flexion/extension of right shoulder. LUE with AV fistula palpated, no palpable thrill present, distally the limb is not ischemic, faint thrill noted, M/U/R nerves intact to sensory and motor distally. No LE edema NEURO: GCS 15, CN 2-12 intact, moves all 4s on command SKIN: No rash or jaundice noted. Medical Decision & Procedures ER Provider Diagnostic Interpretation: Radiology results as stated below per my review and radiologist interpretation: RIGHT SHOULDER 4 VIEWS CLINICAL HISTORY: Chronic right shoulder pain. FINDINGS: 4 views of the right shoulder are compared to study dated 04/28/2017. The skeletal structures are osteopenic. No fracture or dislocation is seen. Productive degenerative change is noted at the acromioclavicular joint. Arthritic change and sclerosis with mild spurring is seen in the greater tuberosity of the humeral head. Calcific tendinopathy is observed. The overlying soft tissues are otherwise within normal limits. The visualized right lung parenchyma appears clear. There is atherosclerotic calcification of the thoracic aorta. IMPRESSION: 1. No acute bony abnormality is seen in the right shoulder and there has been no significant change from 04/28/2017. 2. Osteopenia and arthritic change as above. 3. Calcific tendinopathy is noted. Electronically signed by: Uriel Thomson M.D. 06/04/2017 1:27 PM Dictated Date/Time: 06/04/2017 1:26 PM Medications Administered Medications (Trade) Dose Ordered Sig/Bladimir Route Start Time Stop Time Status Last Admin Dose Admin Acetaminophen/ Hydrocodone Bitart (Cropsey 5/325 Tab) 1 tab NOW STAT PO 06/04/17 12:43 06/04/17 12:44 DC 06/04/17 12:59 1 TAB Tramadol HCl (Ultram Tab) 50 mg NOW STAT PO 06/04/17 12:43 06/04/17 12:44 DC 06/04/17 12:59 50 MG ED Course 1205: The patient was evaluated in room A2. A complete history and physical exam was performed. 1243: Tramadol HCl 50 mg PO, Cropsey 5/325 tab PO 1358: I reassessed the patient at this time. She is feeling better and resting comfortably. I discussed the results and treatment plan with the patient. I answered all pertaining questions that she had. She expressed understanding and verbalized agreement. The patient will be discharged home. Medical Decision The patient is a 51 year old white female with a past medical history of right shoulder tendonitis and CKD who presents to the ED with a cc of right shoulder pain beginning last night. Differential diagnoses includes fracture, sprain, strain, tendonitis. Patient was seen and evaluated the bedside. Patient was seen yesterday for concerning AV fistula issue. Patient of note does not have a palpable thrill today. Patient's potassium was checked yesterday and was normal. Patient is not complaining of any signs or symptoms like shortness of breath or lower extremity swelling. Patient is not confused at this time either. Patient does have a follow-up with Dr. Jones on Tuesday. Patient was complaining of some right shoulder pain. This appears to be chronic in nature she was told she has some calcific tendinopathy. Patient did have pain with internal/external rotation as well as extension and flexion abduction and abduction of the right shoulder. Patient is neurovascularly intact distally. Of note patient had a trace thrill noted on auscultation of the left AV fistula and patient was neurovascularly intact distally in the left upper extremity. Patient was told of the findings and will take Tylenol as well as moist heat and/or ice packs for her shoulder pain. Patient was also given shoulder range of motion exercises. Patient's history less likely ACS given reproducible shoulder pain that is nonradiating given a prior history as well as shoulder film that is indicative of calcific tendinopathy. No dislocation or fractures evident. Patient states that she is supposed to follow-up with [facility] for physical therapy. Patient was given strict follow-up, discharge, and return precautions. Patient agreed with plan of care was safely discharged home. Medication Reconcilliation Current Medication List: was personally reviewed by me Blood Pressure Screening Patient's blood pressure: Elevated blood pressure Blood pressure disposition: Referred to PCP Impression Primary Impression: Tendinopathy of right shoulder Scribe Attestation The scribe's documentation has been prepared under my direction and personally reviewed by me in its entirety. I confirm that the note above accurately reflects all work, treatment, procedures, and medical decision making performed by me. Departure Information Dispostion Home / Self-Care Referrals Tamy Becerra D.O. (PCP) Patient Instructions Anatomy Shoulder, Exercise Shoulder Adduction, Exercise Shoulder Back Scratch, Exercise Shoulder Crematory Operator Rotation, Exercise Shoulder Leadership Recruiter Rotation, Exercise Shoulder Shrug, Exercise Shoulder Squeeze, My [facility] Additional Instructions Please return to the emergency department if you have worsening or recurrent symptoms not amenable to at-home treatment. Please call for a follow-up appointment with her primary care physician. Please take your medications as prescribed. If you have other concerns and/or complaints please feel free to also call your primary care physician's office or return the ED for further evaluation, management, and treatment. You were found to have an elevated blood pressure today (>120 sytolic or >90 diastolic). Per medicare guidelines, you need to follow up with this blood pressure screening with your Primary Care Physician (PCP). For a new PCP call [phone]. You received narcotic or benzodiazepene medication while in the emergency room today. This is an addictive medication that may cause drowziness as well as constipation. Do not drive, operate heavy machinery, or drink alcohol under the influence of this medication. You may take tylenol 1000mg every 6 hours as needed for pain. You have been examined and treated today on an emergency basis only. This is not a substitute for, or an effort to provide, complete comprehensive medical care. It is impossible to recognize and treat all injuries or illnesses in a single emergency department visit. It is therefore important that you follow up closely with [facility]. Call as soon as possible for an appointment. Thank you for your time and consideration. I look forward to speaking with you again soon. Please don't hesitate to call us if you have any questions.
--- NOTE | 2017-06-04 13:29 | DIAGNOSTIC IMAGING REPORT ---
RIGHT SHOULDER 4 VIEWS CLINICAL HISTORY: Chronic right shoulder pain. FINDINGS: 4 views of the right shoulder are compared to study dated 04/28/2017. The skeletal structures are osteopenic. No fracture or dislocation is seen. Productive degenerative change is noted at the acromioclavicular joint. Arthritic change and sclerosis with mild spurring is seen in the greater tuberosity of the humeral head. Calcific tendinopathy is observed. The overlying soft tissues are otherwise within normal limits. The visualized right lung parenchyma appears clear. There is atherosclerotic calcification of the thoracic aorta. IMPRESSION: 1. No acute bony abnormality is seen in the right shoulder and there has been no significant change from 04/28/2017. 2. Osteopenia and arthritic change as above. 3. Calcific tendinopathy is noted. Electronically signed by: Uriel Thomson M.D. 06/04/2017 1:27 PM Dictated Date/Time: 06/04/2017 1:26 PM
[2017-06-04 14:38] VITALS: BP 147/75; PULSE 84; O2SAT 94
== END 2017-06-04 14:40 | disposition home or self-care (01) ==
LOC: C.EDB 11:39 → C.EDA 14:40
DX: M75.81 Other shoulder lesions, right shoulder (principal); N18.6 End stage renal disease; E11.22 Type 2 diabetes mellitus with diabetic chronic kidney disease; I12.0 Hypertensive chronic kidney disease with stage 5 chronic kidney disease or end stage renal disease; Z99.2 Dependence on renal dialysis; M19.90 Unspecified osteoarthritis, unspecified site; I25.10 Atherosclerotic heart disease of native coronary artery without angina pectoris; I65.29 Occlusion and stenosis of unspecified carotid artery; E78.5 Hyperlipidemia, unspecified; K21.9 Gastro-esophageal reflux disease without esophagitis; E66.01 Morbid (severe) obesity due to excess calories; M86.9 Osteomyelitis, unspecified; I25.5 Ischemic cardiomyopathy; Z95.828 Presence of other vascular implants and grafts; Z79.82 Long term (current) use of aspirin; Z79.4 Long term (current) use of insulin; Z87.891 Personal history of nicotine dependence

== ENCOUNTER 2017-06-07 11:24 | Inpatient (IN) | payer OTHER ==
[2017-06-06 12:05] VITALS: BMI 37.0
[~2017-06-07] VITALS: Ht 167.6 cm; Wt 103.4 kg
[2017-06-07] VITALS (22 sets, daily range): BP systolic 122–208; BP diastolic 58–112; PULSE 72–95; TEMP 36.7–37; O2SAT 94–100; Ht 167.6 cm; Wt 103.4 kg
--- NOTE | 2017-06-07 06:20 | History and Physical ---
History & Physical Date of Service Jun 07, 2017. History & Physical Chief Complaint Thrombosed left upper arm fistula History of Present Illness The patient is a 50 year old female with multiple medical problems, including HTN, DMII, ESRD on HD, carotid stenosis, CAD. She has thrombosis of her left arm fistula. She is admitted now for a thrombectomy of her fistula. Allergies Coded Allergies: Adhesives (Verified Allergy, Mild, RASH, SORES, 09/21/16) Pollen Extract (Unverified Allergy, Unknown, rash, 09/21/16) Home Medications Scheduled Aspirin (Aspirin Ec), 81 MG PO DAILY Atorvastatin (Lipitor), 40 MG PO DAILY Calcium Acetate (Phoslo 667 Mg), 3 CAP PO WM Calcium Acetate (Phoslo 667 Mg), 2 CAP PO WITH SNACKS Cephalexin Monohydrate (Keflex), 500 MG PO BID Insulin Glargine (Lantus Solostar), 10 UNITS SC QPM Isosorbide Mononitrate (Isosorbide Mononitrate ER), 60 MG PO QAM Isosorbide Mononitrate Ext Rel (Imdur Ext Rel), 30 MG PO QAM Metoprolol Tartrate (Lopressor), 50 MG PO BID Pantoprazole (Protonix), 40 MG PO DAILY Ranitidine Hcl (Zantac), 300 MG PO HS Sertraline HCl (Sertraline HCl), 2 TAB PO DAILY Scheduled PRN Dicyclomine Hcl (Dicyclomine Hcl), 1 MG PO QID PRN for CRAMPING Lorazepam (Ativan), 0.5 MG PO DAILY PRN for Anxiety Methocarbamol (Methocarbamol), 500 MG PO BID PRN for Muscle Spasms Tramadol (Ultram), 1 TAB PO TID PRN for Pain Problem List Medical Problems: (1) Allergic rhinitis (2) C. difficile colitis (3) CAD (coronary artery disease) (4) Carotid stenosis (5) Diabetic foot infection (6) DM type 2 (diabetes mellitus, type 2) (7) Dyslipidemia (8) ESRD (end stage renal disease) on dialysis (9) GERD (gastroesophageal reflux disease) (10) HTN (hypertension) (11) HX OF PAST NONCOMPLIANCE (12) Ischemic cardiomyopathy (13) Morbid obesity (14) Tobacco use disorder (15) UGIB (upper gastrointestinal bleed) Surgical Problems: (1) Hemodialysis access, AV graft Surgical / Medical History Hx Cardiac Surgery: Yes (ANGIOPLASTY/STENT) Hx Abdominal Surgery: No Hx Cancer Surgery: No Hx Thoracic Surgery: No Hx Orthopedic: No Hx Urinary Tract Surgery: No Past Medical/Surgical History: Diabetes, Heart Disease, Hypertension, Kidney Disease Family History Diabetes mellitus FATHER MOTHER Heart disease FATHER MOTHER Hypertension FATHER MOTHER Kidney disease GRANDMOTHER Social History Smoking Status: Former Smoker Hx Tobacco Use In Past Year?: No Hx Alcohol Use - Type & Amnt: No Hx Substance Use -Type & Amnt: No Review of Systems Constitutional: No chills, No malaise Skin: + change in color Eyes: No visual changes ENMT: No sore throat Respiratory: No cough, No [place], No hemoptysis, No short of breath Cardiovascular: No chest pain, No palpitations, No syncope, No edema, No intermittent claudication Gastrointestinal: No abdominal pain, No nausea, No vomiting Neurologic: No dizziness, No headache, No lethargy, No numbness, No tingling Physical Exam Constitutional: General Apperance: well-nourished, well-developed, obese (morbidly) Level of Distress: NAD, chronically ill Psychiatric: Mental Status: active & alert, normal mood, normal affect Orientation: oriented except where noted, to time, to place, to person Memory: recent memory normal, remote memory normal Head: normocephalic, atraumatic Eyes: EOM: EOMI ENMT: normal ENT inspection, hearing grossly normal Neck: supple, trachea midline Lungs: Respiratory effort: no dyspnea Auscultation: no wheezing, no rales/crackles, no rhonchi Cardiovascular: Apical Impulse: not displaced Heart Auscultation: RRR, no rubs, no gallops Peripheral Pulses: Pulses: full and equal, in all extremities except if noted Brachial Pulses: normal on the left, normal on the right Radial Pulse: decreased on the left, decreased on the right Femoral Pulse: normal on the right, decreased on the left Posterior Tibialis Pulse: doppler (Monophasic LLE and RLE) Dorsalis Pedis Pulse: decreased on the right, doppler (LLE monophasic) Abdomen: Inspection & Palpation: soft, non-distended, no tenderness, guarding & rebound Musculoskeletal: normal strength (5/5 throughout), normal tone Extremities: Upper Right: no cyanosis, no edema, no varicosities Upper Left: no cyanosis, no edema, no varicosities Lower Right: no cyanosis, no varicosities, no palpable cord, edema (trace) Lower Left: no cyanosis, no varicosities, no palpable cord, edema (trace) Neurologic: Cranial Nerves: grossly intact Sensation: grossly intact ASSESSMENT and PLAN: Thrombosis of the av fistula left arm Plan: Patient is admitted for a thrombectomy of her left arm fistula and possible permcath insertion. I have discussed the risks options and benefits of the procedure with the patient. The patient understands the risks options and benefits and agrees to the procedure.
[~2017-06-07 11:24] MED LIST changes: +CEFAZOLIN 2000 MG/60 ML D5W 60 ML IV SCH; -PRT/40 PO; +SODIUM CHLORIDE 0.9% 1000ML 1,000 ML IV SCH
[2017-06-07] MEDS ORDERED: LIDOCAINE HCL 1% 20 ML VIAL ONE ×2 (12:09→13:17)
[2017-06-07] MEDS ORDERED: THROMBIN FOR SOLN 20000 UNIT KIT ONE (12:09)
[2017-06-07] MEDS ORDERED: GELATIN SPONGE 12-7MM ONE (12:09)
[2017-06-07] MEDS ORDERED: BUPIVACAINE/EPINEPHRINE 0.5% MPF 1:200,000 30 ML VIAL ONE (12:09)
[2017-06-07] MEDS ORDERED: HEPARIN SOD (PORCINE) 1000 UNIT/ML 10 ML VIAL ONE (12:10)
[2017-06-07] MEDS ORDERED: IODIXANOL (VISIPAQUE) 270 MG/ML 50ML ONE (12:11)
[2017-06-07] MEDS ORDERED: FENTANYL CITRATE INJ 50 MCG/1 ML 2 ML VIAL ONE ×2 (12:12→13:39)
[2017-06-07] MEDS ORDERED: PROPOFOL IV EMULSION 10 MG/ML 20 ML VIAL IV ONE (12:12)
[2017-06-07] MEDS ORDERED: MIDAZOLAM HCL 1 MG/ML 2ML VIAL ONE ×2 (12:12→13:39)
[2017-06-07] MEDS ORDERED: LIDOCAINE HCL 2% 2 ML VIAL (20MG/ML) ONE (12:12)
[2017-06-07 12:53] LABS: BUN/CREATININE RATIO 6.8 (10-20); CALCIUM 9.8 mg/dl (8.5-10.1); CREATININE 16.8 mg/dl (0.60-1.20); POTASSIUM 5.6 mmol/L (3.5-5.1)
[2017-06-07] MEDS ORDERED: HEPARIN SOD (PORCINE) 5000 UNIT/ML 1 ML VIAL ONE (13:18)
--- NOTE | 2017-06-07 13:45 | Progress Note ---
Progress Note Date of Service Jun 07, 2017. Progress Note Patient with K of 5.6. Case cancelled by anesthesia Will place a temporary line for dialysis today and do the thrombectomy tomorrow I have discussed the risks options and benefits of the procedure with the patient. The patient understands the risks options and benefits and agrees to the procedure.
[2017-06-07] MEDS ORDERED: LIDOCAINE HCL 1% 20 ML VIAL INJ ONE ×2 (14:14→14:15)
[2017-06-07] MEDS ORDERED: HEPARIN SOD (PORCINE) 5000 UNIT/ML 1 ML VIAL IV ONE (14:20)
--- NOTE | 2017-06-07 14:34 | [facility] Operative Report ---
Operative Report Operative Date Jun 07, 2017. Pre-Operative Diagnosis thrombosed left arm fistula Post-Operative Diagnosis same Procedure(s) Performed Insertion Of Temporary Dialysis Catheter Right Femoral Artery, Ultrasound Localization Of Right Femoral Artery, Fluoroscopy For Positioning Surgeon Dr. Jones Carbon Lamp Cleaner Surgeon(s) none Estimated Blood Loss 0 Findings tip in ivc, good flow Specimens none Anesthesia Local Complication(s) None Disposition Indications This patient is a 51-year-old white female who has a thrombosed fistula in her left arm. She was to undergo thrombectomy today but her potassium was 5.6 and a creatinine was 16. Anesthesia requested that she be dialyzed prior to proceeding the procedure. The temporary dialysis catheter was recommended. I have discussed the risks options and benefits of the procedure with the patient. The patient understands the risks options and benefits and agrees to the procedure. Description of Procedure Patient was takent to the angio suite and placed in the supine position. The right groin was prepped and draped in a sterile manner. Local anesthesia was then administered to the appropriate areas of the groin. Ultrasound was then used to locate the right femoral vein. The vein compressed easily, had no filing defects, and was patent. The vein was then punctured under direct ultrasound imaging. A guidewire was then passed centrally under fluoroscopic imaging. A stab wound was then made and a 24 cm temporary dialysis catheter was passed into the iliac vein centrally. The catheter was then sutured in place using nylon sutures. Both ports aspirated and flushed easily and were then packed with heparin. A sterile dressing was applied to the catheter. The patient left the angio suite in good condition and tolerated the procedure well. I attest to the content of the Intraoperative Record and any orders documented therein. Any exceptions are noted below.
[2017-06-07] MEDS ORDERED: ACETAMINOPHEN 325 MG TAB PO PRN (15:45)
[2017-06-07] MEDS ORDERED: IV FLUIDS COMPLETED PRN (16:00)
[2017-06-07] MEDS ORDERED: GLUCOSE 40% GEL 15 GM TUBE PO PRN (16:15)
[2017-06-07] MEDS ORDERED: GLUCOSE 10 TABS/TUBE PO PRN (16:15)
[2017-06-07] MEDS ORDERED: GLUCAGON FOR INJ 1 MG VIAL SQ PRN (16:15)
[2017-06-07] MEDS ORDERED: DEXTROSE 50% 50 ML SYR IV PRN (16:15)
[2017-06-07] MEDS ORDERED: ONDA4TAB46 PO (16:17)
[2017-06-07] MEDS ORDERED: PANT40TA PO (16:17)
[2017-06-07] MEDS ORDERED: LORATADINE 10 MG TAB PO PRN (16:26)
[2017-06-07] MEDS ORDERED: LORAZEPAM 0.5 MG TAB PO PRN (16:30)
[2017-06-07] MEDS ORDERED: CALCIUM ACETATE 667MG GELCAP PO PRN (16:30)
[2017-06-07] MEDS ORDERED: DICYCLOMINE HCL 10 MG CAP PO PRN (16:30)
--- NOTE | 2017-06-07 16:57 | History and Physical ---
History & Physical Date & Time of Service: Jun 07, 2017 at 16:25 Chief Complaint: End Stage Renal Disease, Malfunctioning Fistula Primary Care Physician: Tamy Becerra D.O. History of Present Illness Source: patient Pt is 51y/o F with hx ESRD on HD, HTN, DM II, CAD, carotid stenosis presents as direct admission from Dr Jones for hyperkalemia, HTN. Pt was in same day surgery for thrombectomy for thrombosis of L arm fistula. In same day surgery BP was noted to be 200/98. A R femoral dialysis catheter was placed instead of thrombectomy. Pt sent for dialysis and is receiving currently. She is scheduled for thrombectomy of L arm fistula tomorrow. K: 5.6, BUN: 115, CR: 16.8, glucose : 138 Pt states typically has dialysis on schedule. States didn't have done tuesday or yesterday (tuesday) secondary to malfunctioning fistula. She admits to not taking her medicines for the past couple of days as she has been having nausea which she relates is secondary to not receiving dialysis. She took Zofran 4mg po this am and her ASA 81mg, probiotic, otherwise hasn't been taking her medications. States hx chronic constipation, hasn't had BM in couple of days. Pt with hx chronic low back pain, denies any changes with that. Denies fever/chills, diaphoresis, N/V/D, melena, hematochezia, NELSON, dizziness, syncope, vision changes, neck pain, CP, SOB, orthopnea, palpitations, cough, sore throat , choking, otalgia, rhinorrhea, flank pain, paresthesias, weakness, extremity weakness, extremity edema, rashes, or changes with urination (pt doesn't urinate much secondary to HD. Pt was recently admitted to hospital on 06/01/17 for R shoulder pain, elevated WBC with concern for possible sepsis, elevated troponin. Unremarkable hospital course with decreased WBC and no distinct infection source, suspected was from pain/inflammation. Troponin no increase in trend. R shoulder pain improved. Past Medical/Surgical History Medical Problems: (1) Allergic rhinitis Status: Chronic (2) CAD (coronary artery disease) Permanent Comment: s/p PCI and BMS to left circumflex 03/2016 Status: Chronic (3) Carotid stenosis Permanent Comment: left ICA Status: Chronic (4) DM type 2 (diabetes mellitus, type 2) Status: Chronic (5) Dyslipidemia Status: Chronic (6) ESRD (end stage renal disease) on dialysis Status: Chronic (7) GERD (gastroesophageal reflux disease) Status: Chronic (8) HTN (hypertension) Status: Chronic (9) HX OF PAST NONCOMPLIANCE Status: Chronic (10) Ischemic cardiomyopathy Permanent Comment: echo 05/2016 - EF 40-45%, grade I diastolic dysfunction Status: Chronic (11) Morbid obesity Status: Chronic (12) Tobacco use disorder Status: Chronic Surgical Problems: (1) Hemodialysis access, AV graft Permanent Comment: [facility] Dr. Jones 08/25/12 Status: Chronic Family History Diabetes mellitus FATHER MOTHER Heart disease FATHER MOTHER Hypertension FATHER MOTHER Kidney disease GRANDMOTHER Social History Smoking Status: Former Smoker (pt admits to smoking intermittently) Alcohol Use: occasionally Drug Use: none Marital Status: Housing status: lives alone Occupational Status: unemployed Immunizations History of Influenza Vaccine: Yes Influenza Vaccine Date: Apr 22, 2016 History of Tetanus Vaccine?: Yes History of Pneumococcal: Yes Pneumococcal Date: Mar 14, 2013 History of Hepatitis B Vaccine: Yes Hepatitis Immunization Date: Aug 01, 2013 Multi-Drug Resistant Organisms History of MDRO: Yes Type of MDRO: MRSA Allergies Coded Allergies: Adhesives (Verified Allergy, Mild, RASH, SORES, 06/07/17) NO KNOWN DRUG ALLERGIES (Verified Allergy, Mild, ., 06/07/17) Latex1 -Allergic Contact Dermititis (Verified Allergy, Unknown, rash, ) Pollen Extract (Verified Allergy, Unknown, WATERY EYES, 06/07/17) Home Medications Scheduled Aspirin (Aspirin Ec), 81 MG PO QAM Atorvastatin (Atorvastatin Calcium), 40 MG PO QAM Calcium Acetate (Phosphate Bin (Phoslo 667 Mg), 2,001 MG PO TIDM Cephalexin Monohydrate (Keflex), 500 MG PO BID Insulin Glargine (Lantus Solostar), 12 UNITS SC QPM Isosorbide Mononitrate Ext Rel (Imdur Ext Rel), 30 MG PO QAM Isosorbide Mononitrate Ext Rel (Imdur Ext Rel), 60 MG PO QAM Lactobacillus (Probiotic), 2 CAP PO BID Metoprolol Succinate (Metoprolol Succinate ER), 50 MG PO QAM Pantoprazole Sodium (Protonix), 40 MG PO DAILY Sertraline HCl (Sertraline HCl), 100 MG PO HS Scheduled PRN Calcium Acetate (Phosphate Bin (Phoslo 667 Mg), 2 CAP PO UD PRN for snacks Dicyclomine Hcl (Dicyclomine Hcl), 10 MG PO QID PRN for Cramping Fluticasone Propionate (Fluticasone Propionate), 2 SPRAYS NAYAN DAILY PRN for Allergy Symptoms Loratadine (Claritin Childrens), 5 MG PO DAILY PRN for Allergy Symptoms Lorazepam (Lorazepam), 0.5 MG PO DAILY PRN for Anxiety Ondansetron Hcl (Zofran), 4 MG PO Q6 PRN for Nausea Oxycodone/Acetaminophen 5MG/325MG (Oxycodone/Acetaminophen 5MG/325MG), 1-2 TABS PO Q4H PRN for Pain Review of Systems See HPI for pertinent positives & negatives. A total of 10 systems reviewed and were otherwise negative Physical Exam Vital Signs Date Time Temp Pulse Resp B/P (MAP) Pulse Ox O2 Delivery O2 Flow Rate FiO2 06/07/17 16:15 85 175/96 06/07/17 16:00 86 180/108 06/07/17 15:45 88 186/107 06/07/17 15:45 87 192/108 (136) 06/07/17 13:40 36.7 72 22 187/95 100 Room Air 06/07/17 12:09 36.7 89 22 187/95 (125) 100 Room Air General Appearance: + obese, + pertinent finding (chronically ill appearing) Head: normocephalic, atraumatic Eyes: normal inspection, PERRL, EOMI ENT: pharynx normal Neck: supple, no adenopathy, trachea midline Respiratory/Chest: chest non-tender, lungs clear, normal breath sounds, no respiratory distress, no accessory muscle use Cardiovascular: regular rate, rhythm, no murmur Abdomen/GI: normal bowel sounds, non tender, soft Extremities/Musculoskelatal: non-tender, + pedal edema (trace) Neurologic/Psych: alert, normal mood/affect, oriented x 3 Skin: warm/dry, + pertinent finding (ashy skin color) Diagnostics Laboratory Results Results Past 24 Hours Test 06/07/17 11:48 06/07/17 11:58 06/07/17 14:47 06/07/17 16:03 Range/Units Bedside Glucose 134 138 70-90 mg/dl Sodium Level 129 136-145 mmol/L Potassium Level 5.6 3.5-5.1 mmol/L Chloride Level 93 98-107 mmol/L Carbon Dioxide Level 19 21-32 mmol/L Anion Gap 17.0 3-11 mmol/L Blood Urea Nitrogen 115 7-18 mg/dl Creatinine 16.80 0.60-1.20 mg/dl Est Creatinine Clear Calc Drug Dose 4.9 ml/min Estimated GFR () 2.5 Estimated GFR (Non- 2.2 BUN/Creatinine Ratio 6.8 10-20 Random Glucose 139 70-99 mg/dl Calcium Level 9.8 8.5-10.1 mg/dl Impression Assessment and Plan HYPERKALEMIA: -Probable secondary to pt not receiving hemodialysis. Pt already started dialysis prior to pt being seen. Will repeat bmp tomorrow AM to recheck ESRD on HD -Pt on MWF dialysis schedule, follows with Dr Prakash -nephrology aware and pt receiving dialysis today -vascular surgery consulted as pt is scheduled for thrombectomy of fistula thrombosis tomorrow. CAD, PVD -continue ASA -continue lipitor -recommend smoking cessation HTN: -Pt has not been taking home meds and hasn't had HD. Will wait until pt done with dialysis and if continues to be hypertensive consider hydralazine -can continue metoprolol DM II -Pt hasn't been taking her insulin past several days. Glucose 138 currently. Will hold on lantus currently and do sliding scale per protocol. -HgbA1c: 7.7 on 05/30/17 DVT PROPHYLAXIS -SCD's as will hold on heparin with pt having recent procedure and scheduled for procedure in am. DISPOSITION -admit tele - Full Code as per discussion with pt -Follows with Dr Becerra for routine care Pt seen with Dr Turcios ADDENDUM: I have seen and examined the patient above and agree with the assessment and plan as written. Additional problems include hyponatremia which is chronic but low--will repeat PRP in am after receiving HD tonight. Also she has chronic, stable anemia with no reports of pain and chronic pain 2/2 OA which has flared up per her report. She takes Percocet PRN for this. Exam is unremarkable aside from no thrill to palpation of fistula. Plan to continue to procedure in am. Likely HD again tomorrow. Foard, DO Level of Care Telemetry Resuscitation Status FULL RESUSCITATION VTE Prophylaxis VTE Risk Assessment Done? Y/N: Yes Risk Level: Moderate Given or contraindicated: SCD's Additional Copies To Tamy Becerra D.O.
[2017-06-07] MEDS: OXYCODONE/ACETAMINOPHEN 5-325 TAB PO PRN (19:21)
[2017-06-07] MEDS: LACTOBACILLUS ACIDOPHILUS (FLORANEX) TAB PO SCH (19:37)
[2017-06-07] MEDS: CALCIUM ACETATE 667MG GELCAP PO SCH (19:37)
[2017-06-07] MEDS: SERTRALINE HCL 100 MG TAB PO SCH (19:38)
--- NOTE | 2017-06-07 19:38 | NEPHROLOGY CONSULTATION ---
DATE OF CONSULTATION: 06/07/2017 ATTENDING OF RECORD: [facility]. REASON FOR CONSULTATION: End-stage renal disease. HISTORY OF PRESENT ILLNESS: This is a 51-year-old female who dialyzes Mondays, Wednesdays, and Fridays at the [facility], the last dialysis was a week ago today on Tuesday. The patient had a non-working access on Tuesday. When attempting to declot it today, potassium level was found to be elevated at 5.6. So, Dr. Jones placed a temporary dialysis catheter and to run dialysis today with a tentative plan of a declot tomorrow. The patient still urinates and is not grossly fluid overloaded. The patient currently evaluated at dialysis and tolerating it well. PAST MEDICAL HISTORY/PAST SURGICAL HISTORY: End-stage renal disease, diabetes, hypertension, hyperlipidemia, coronary artery disease with 1 stent placed, left CEA in March of this year, obesity, GERD, active tobacco use, anxiety and depression. FAMILY HISTORY: Significant for diabetes and heart disease. SOCIAL HISTORY: Active smoker, no alcohol, no drugs and is . CURRENT MEDICATIONS: Reviewed. REVIEW OF SYSTEMS: No fevers or chills. No headaches, no blurry vision, no shortness of breath. No chest pain. Positive nausea, no vomiting, decreased appetite. No diarrhea or constipation. No dysuria. All other review of systems otherwise negative. PHYSICAL EXAMINATION: VITAL SIGNS: Temperature 36.7, blood pressure 185/112, pulse 86, respiratory rate is 22, pulse ox 100%. GENERAL: Awake, alert, oriented x3, obese. EYES: No scleral icterus. ENT: Moist mucous membranes. NECK: Supple. PULMONARY: Clear to auscultation. CARDIAC: Regular rate and rhythm. ABDOMEN: Bowel sounds positive, soft, nontender, nondistended. EXTREMITIES: Mild edema. NEUROLOGICALLY: Nonfocal. DERMATOLOGIC: No rash or ulcers noted. LABORATORY DATA: Show a sodium level 129, potassium 5.6, chloride 93, bicarbonate is 19, BUN is 115, creatinine 16, glucose 138; calcium is 9.8. IMPRESSION AND PLAN: 1. End-stage renal disease. The patient seen on dialysis, removing 2 liters today to help lower her blood pressure. 2. Hyperkalemia. Potassium level 5.6, dialyzed on a 2K bath which should help improve potassium levels. Will tentatively plan on dialysis again tomorrow after successful declotting secondary to the potassium release after lysis. 3. Hyponatremia. Sodium level was 129 and should improve with dialysis and fluid removal. 4. Renal osteodystrophy. We will continue patient's phosphate binders, while in house. 5. Hypertension. Blood pressure should improve as we remove fluid and may need blood pressure medications adjusted while in house, to try to help control her significantly elevated blood pressure. 6. Overall, patient has noncompliance with medications as well as coming to dialysis with a chronically high phosphorus and PTH levels with the high risk of heart attack in the future given her significant premature calcification of vessels, given her uncontrolled phosphorus and elevated PTH levels through the years that I have known her. Despite multiple educational attempts and encouragement, the patient has issues with taking meds on a regular basis and continue to work with supporting her at the outpatient dialysis unit. For now, will dialyze tonight, adjust blood pressure medication accordingly and dialyze again tomorrow after declotted, trying to optimize her clearance of toxins, hyponatremia and hyperkalemia. Appreciate consultation. BALTAZAR
[2017-06-07] MEDS: INSULIN ASPART 100 UNITS/ML 3 ML PEN SC SCH (19:39)
[2017-06-07] MEDS ORDERED: COUGH DROP (SUGAR FREE) LOZ 24 LOZ/1 BOX ONE (19:44)
[2017-06-07 20:44] LABS: HEMATOCRIT 27.9 % (37-47); MEAN CELL VOLUME 88.3 fL (80-100); MEAN CORPUSCULAR HEMOGLOBIN 29.1 pg (25-34); MEAN PLATELET VOLUME 10.5 fL (7.4-10.4); PLATELET COUNT 452 K/uL (130-400); RED BLOOD COUNT 3.16 M/uL (4.2-5.4); WHITE BLOOD COUNT 12.14 K/uL (4.8-10.8)
[2017-06-07] MEDS ORDERED: HydrALAZINE HCL 20 MG/ML VIAL IV. STA (21:36)
[2017-06-07] MEDS ORDERED: HEPARIN SOD 5000 UNIT/0.5 ML CARP SQ SCH (22:00)
[2017-06-07] MEDS: ONDANSETRON INJ 2 MG/ML 2 ML VIAL IV PRN (22:41)
[2017-06-08] VITALS (22 sets, daily range): BP systolic 85–155; BP diastolic 45–102; PULSE 60–109; TEMP 36.4–37.8; O2SAT 91–100
[2017-06-08] MEDS: OXYCODONE/ACETAMINOPHEN 5-325 TAB PO PRN ×3 (00:28→20:23)
[2017-06-08 06:47] LABS: MEAN CELL VOLUME 90.9 fL (80-100); MEAN CORPUSCULAR HEMOGLOBIN 29.7 pg (25-34); MEAN CORPUSCULAR HGB CONC 32.7 g/dl (32-36); MEAN PLATELET VOLUME 9.7 fL (7.4-10.4); PLATELET COUNT 411 K/uL (130-400); RED BLOOD COUNT 2.86 M/uL (4.2-5.4)
[2017-06-08 06:52] LABS: INR 1.2 (0.9-1.1); PROTHROMBIN TIME (PATIENT) 12.8 SECONDS (9.0-12.0)
[2017-06-08] MEDS: INSULIN ASPART 100 UNITS/ML 3 ML PEN SC SCH ×4 (07:00→20:29)
[2017-06-08] MEDS: CALCIUM ACETATE 667MG GELCAP PO SCH ×4 (07:30→19:14)
[2017-06-08 07:32] LABS: BUN/CREATININE RATIO 5.5 (10-20); CALCIUM 9.2 mg/dl (8.5-10.1); CREATININE 10.3 mg/dl (0.60-1.20); POTASSIUM 4.6 mmol/L (3.5-5.1)
[2017-06-08] MEDS ORDERED: ATROPINE SULFATE 0.1 MG/ML 5ML SYR IV PRN ×2 (08:15→13:15)
[2017-06-08] MEDS ORDERED: EpHEDrine SULFATE INJ 50 MG/ML AMP IV PRN ×2 (08:15→13:15)
[2017-06-08] MEDS ORDERED: ONDANSETRON INJ 2 MG/ML 2 ML VIAL IV PRN ×2 (08:15→13:15)
[2017-06-08] MEDS ORDERED: FENTANYL CITRATE INJ 50 MCG/1 ML 2 ML VIAL IV PRN ×2 (08:15→13:15)
[2017-06-08] MEDS ORDERED: EPOETIN ALFA 10,000 UNITS/ML VIAL IV. ONE (08:15)
[2017-06-08] MEDS: LACTOBACILLUS ACIDOPHILUS (FLORANEX) TAB PO SCH ×2 (09:08→16:45)
[2017-06-08] MEDS: PANTOprazole SOD 40 MG TAB PO SCH (09:09)
[2017-06-08] MEDS: ATORVASTATIN 40 MG TAB PO SCH (09:09)
[2017-06-08] MEDS: ISOSORBIDE MONONITRATE 30 MG TABCR PO SCH (09:09)
[2017-06-08] MEDS: ISOSORBIDE MONONITRATE 60 MG TABCR PO SCH (09:09)
[2017-06-08] MEDS: ASPIRIN 81 MG ECTAB PO SCH (09:09)
[2017-06-08] MEDS: METOPROLOL SUCC 50MG EXT REL TAB PO SCH (09:10)
--- NOTE | 2017-06-08 09:21 | Nephrology Progress Note ---
Nephrology Progress Note Date of Service: Jun 08, 2017. Subjective This is a 51y/o ESRD patient admitted for failed access and hyperkalemia. Patient had a temporary femoral cath placed and patient had dialysis yesterday. Plan for today to proceed with thrombectomy and post surgical dialysis. Patient states that she had issues sleeping last night. She denies any SOB, chest pain, nausea or vomiting. She is not confused today. still with some urine output and does not appear to be volume overloaded. Objective Date Time Temp Pulse Resp B/P (MAP) Pulse Ox O2 Delivery O2 Flow Rate FiO2 06/08/17 07:59 Room Air 06/08/17 07:57 37.0 84 18 148/84 (105) 94 Room Air 06/08/17 03:55 37.8 87 19 147/81 (103) 92 Room Air 06/08/17 00:22 37.4 88 18 132/77 (95) 95 Room Air 06/08/17 00:00 Room Air 06/07/17 21:49 90 158/91 (113) 06/07/17 20:00 98 Room Air 06/07/17 18:57 36.8 89 170/95 (120) 06/07/17 18:50 37.0 95 20 178/103 98 Room Air 06/07/17 18:30 82 172/103 06/07/17 18:15 83 168/103 06/07/17 18:00 86 179/103 06/07/17 17:45 87 178/103 06/07/17 17:30 87 183/103 06/07/17 17:15 86 182/106 06/07/17 17:00 85 177/103 06/07/17 16:45 89 180/107 06/07/17 16:30 86 185/112 06/07/17 16:15 85 175/96 06/07/17 16:00 86 180/108 06/07/17 15:45 88 186/107 06/07/17 15:45 87 192/108 (136) 06/07/17 15:25 37.0 87 18 208/98 98 Room Air 06/07/17 15:00 37.0 91 18 195/96 95 Room Air 06/07/17 14:37 36.8 85 18 200/98 94 Room Air 06/07/17 13:40 36.7 72 22 187/95 100 Room Air 06/07/17 12:09 36.7 89 22 187/95 (125) 100 Room Air Physical Exam: GENERAL: Awake, alert, oriented x3, obese. EYES: No scleral icterus. ENT: Moist mucous membranes. NECK: Supple. CEA scar on left side PULMONARY: Clear to auscultation. CARDIAC: Regular rate and rhythm. ABDOMEN: Bowel sounds positive, soft, nontender, nondistended. EXTREMITIES: Mild edema. with cyst on the dorsum of her left foot. +femoral catheter RLE NEUROLOGICALLY: Nonfocal. DERMATOLOGIC: No rash or ulcers noted. Current Inpatient Medications Medications (Trade) Dose Ordered Sig/Bladimir Route Start Time Stop Time Status Last Admin Dose Admin Acetaminophen (Tylenol Tab) 650 mg Q4H PRN PO 06/07/17 15:45 07/07/17 15:44 Ondansetron HCl (Zofran Inj) 4 mg Q6H PRN IV 06/07/17 15:45 07/07/17 15:44 06/07/17 22:41 4 MG Miscellaneous (Iv Fluids Completed) 1 ea PRN PRN N/A 06/07/17 16:00 06/07/18 15:59 Insulin Aspart (novoLOG ASPART) SLIDING SCALE If C... ACHS SC 06/07/17 21:00 07/07/17 20:59 Glucose (Glucose 40% Gel) 15-30 GRAMS 15 GRAMS... UD PRN PO 06/07/17 16:15 07/07/17 16:14 Glucose (Glucose Chew Tab) 4-8 Tablets 4 Tabl... UD PRN PO 06/07/17 16:15 07/07/17 16:14 Dextrose (Dextrose 50% 50ML Syringe) 25-50ML OF 50% DW IV FOR... UD PRN IV 06/07/17 16:15 07/07/17 16:14 Glucagon (Glucagon Inj) 1 mg UD PRN SQ 06/07/17 16:15 07/07/17 16:14 Aspirin (Ecotrin Tab) 81 mg QAM PO 06/08/17 09:00 07/08/17 08:59 Atorvastatin Calcium (Lipitor Tab) 40 mg QAM PO 06/08/17 09:00 07/08/17 08:59 Calcium Acetate (Phoslo Cap) 1,334 mg UD PRN PO 06/07/17 16:30 07/07/17 16:29 Calcium Acetate (Phoslo Cap) 2,001 mg TIDM PO 06/07/17 17:01 07/07/17 17:59 06/07/17 19:37 2,001 MG Dicyclomine HCl (Bentyl Cap) 10 mg QID PRN PO 06/07/17 16:30 07/07/17 16:29 06/08/17 04:37 10 MG Fluticasone Propionate (Flonase Nasal [place]) 2 sprays DAILY PRN NAYAN 06/07/17 16:30 07/07/17 16:29 Isosorbide Mononitrate (Imdur Ext Rel Tab) 30 mg QAM PO 06/08/17 09:00 07/08/17 08:59 Isosorbide Mononitrate (Imdur Ext Rel Tab) 60 mg QAM PO 06/08/17 09:00 07/08/17 08:59 Lorazepam (Ativan Tab) 0.5 mg DAILY PRN PO 06/07/17 16:30 07/07/17 16:29 Metoprolol Succinate (Toprol Xl Tab) 50 mg QAM PO 06/08/17 09:00 07/08/17 08:59 Oxycodone/ Acetaminophen (Percocet 5-325mg Tab) 1 tab Q4H PRN PO 06/07/17 16:30 06/21/17 16:29 06/08/17 04:39 1 TAB Pantoprazole Sodium (Protonix Tab) 40 mg DAILY PO 06/08/17 09:00 07/08/17 08:59 Sertraline HCl (Zoloft Tab) 100 mg HS PO 06/07/17 21:00 07/07/17 20:59 06/07/17 19:38 100 MG Lactobacillus Acidophilus (Floranex Tab) 4 tab BIDM PO 06/07/17 17:01 07/07/17 17:59 06/07/17 19:37 4 TAB Loratadine (Claritin Tab) 5 mg DAILY PRN PO 06/07/17 16:26 07/07/17 16:25 Fentanyl Citrate (Fentanyl Inj) 25 mcg Q5M PRN IV 06/08/17 08:15 06/08/17 13:00 Ondansetron HCl (Zofran Inj) 4 mg ONE PRN IV 06/08/17 08:15 06/08/17 13:00 Ephedrine Sulfate (EpHEDrine SULFATE INJ) 5 mg Q5M PRN IV 06/08/17 08:15 06/08/17 13:00 Atropine Sulfate (Atropine Sulfate 0.1MG/Ml Inj) 0.5 mg Q1M PRN IV 06/08/17 08:15 06/08/17 13:00 Last 24 Hours Test 06/07/17 11:48 06/07/17 11:58 06/07/17 14:47 06/07/17 19:19 Bedside Glucose 134 mg/dl 138 mg/dl 107 mg/dl Sodium Level 129 mmol/L Potassium Level 5.6 mmol/L Chloride Level 93 mmol/L Carbon Dioxide Level 19 mmol/L Anion Gap 17.0 mmol/L Blood Urea Nitrogen 115 mg/dl Creatinine 16.80 mg/dl Est Creatinine Clear Calc Drug Dose 4.9 ml/min Estimated GFR () 2.5 Estimated GFR (Non- 2.2 BUN/Creatinine Ratio 6.8 Random Glucose 139 mg/dl Calcium Level 9.8 mg/dl Test 06/07/17 20:00 06/08/17 06:15 06/08/17 06:16 06/08/17 08:39 White Blood Count 12.14 K/uL 10.90 K/uL Red Blood Count 3.16 M/uL 2.86 M/uL Hemoglobin 9.2 g/dL 8.5 g/dL Hematocrit 27.9 % 26.0 % Mean Corpuscular Volume 88.3 fL 90.9 fL Mean Corpuscular Hemoglobin 29.1 pg 29.7 pg Mean Corpuscular Hemoglobin Concent 33.0 g/dl 32.7 g/dl RDW Standard Deviation 47.3 fL 49.2 fL RDW Coefficient of Variation 14.6 % 14.7 % Platelet Count 452 K/uL 411 K/uL Mean Platelet Volume 10.5 fL 9.7 fL Bedside Glucose 116 mg/dl 133 mg/dl Prothrombin Time 12.8 SECONDS Prothromb Time International Ratio 1.2 Sodium Level 133 mmol/L Potassium Level 4.6 mmol/L Chloride Level 97 mmol/L Carbon Dioxide Level 24 mmol/L Anion Gap 12.0 mmol/L Blood Urea Nitrogen 58 mg/dl Creatinine 10.30 mg/dl Est Creatinine Clear Calc Drug Dose 8.0 ml/min Estimated GFR () 4.5 Estimated GFR (Non- 3.9 BUN/Creatinine Ratio 5.5 Random Glucose 115 mg/dl Calcium Level 9.2 mg/dl Assessment & Plan End-stage renal disease. Patient tolerated dialysis yesterday. Potassium this morning is 4.6. plan to proceed with surgery and then have post surgery dialysis with a 2k bath. will remove 2L to help with BP. Hyperkalemia. Potassium improved at 4.6. plan for 2k bath with dialysis today. Hyponatremia. Sodium level improved to 133 with volume removal with dialysis. will continue to follow. 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 Hypertension: generally improved and should continue to improve with dialysis. may need additional BP Medications while admitted if BP becomes significantly elevated. This patient was seen and treated with direct collaboration with Dr. Prakash. Thank you for the opportunity to participate in this patient's care. Appreciate the Consult. ATTENDING NOTE: I performed a history and physical examination of the patient, including specifically on history- pts electrolytes more stable this morning, pt feels good, , on physical exam-cta, and my impression and plan are ESRD-plan on dialysis today after declot. I have discussed the patient's management with Alka Green PA-C, Please refer to above note for the documented findings and plan of care. Shahbaz Prakash DO
--- NOTE | 2017-06-08 09:56 | Progress Note ---
Progress Note Date of Service Jun 08, 2017. Progress Note Patient for thrombectomy of her left arm fistula and possible permcath insertion if needed. I have discussed the risks options and benefits of the procedure with the patient. The patient understands the risks options and benefits and agrees to the procedure. I have examined the patient, reviewed the History & Physical and in the interval since the performance of the History & Physical I have noted the following changes of clinical significance: No changes noted
[2017-06-08] MEDS ORDERED: IV FLUIDS COMPLETED PRN (12:30)
[2017-06-08] MEDS ORDERED: MIDAZOLAM HCL 1 MG/ML 2ML VIAL ONE (12:56)
[2017-06-08] MEDS ORDERED: FENTANYL CITRATE INJ 50 MCG/1 ML 2 ML VIAL ONE ×2 (12:56→14:22)
[2017-06-08] MEDS ORDERED: GELATIN SPONGE 12-7MM ONE (13:00)
[2017-06-08] MEDS ORDERED: LIDOCAINE HCL 1% 20 ML VIAL ONE (13:00)
[2017-06-08] MEDS ORDERED: THROMBIN FOR SOLN 20000 UNIT KIT ONE (13:00)
[2017-06-08] MEDS ORDERED: HEPARIN SOD (PORCINE) 1000 UNIT/ML 10 ML VIAL ONE ×2 (13:00→13:03)
[2017-06-08] MEDS ORDERED: BUPIVACAINE/EPINEPHRINE 0.5% MPF 1:200,000 30 ML VIAL ONE (13:00)
[2017-06-08] MEDS ORDERED: CEFAZOLIN SOD 1 GM VIAL ONE (13:42)
[2017-06-08] MEDS ORDERED: LIDOCAINE HCL 2% 2 ML VIAL (20MG/ML) ONE (14:03)
[2017-06-08] MEDS ORDERED: PROPOFOL IV EMULSION 10 MG/ML 20 ML VIAL IV ONE (14:03)
--- NOTE | 2017-06-08 14:14 | Progress Note ---
Internal Med Progress Note Date of Service: Jun 08, 2017. Provider Documentation: SUBJECTIVE: The patient was seen and examined Complains of pain almost all the joints Hips and right shoulder in particular Generalized weakness OBJECTIVE: Vital Signs-as noted below Exam: General-NO distress at rest Eyes-normal ENT-normal Neck-supple Lungs-Clear to ausucltate bilaterally Heart-Regular ,no murmur appreciated Abdomen-Benign,no masses Extremities-NO edema Neuro-AAOx3 Lab data as noted below. ASSESSMENT & PLAN: HYPERKALEMIA: Secondary to ESRD -Probable secondary to pt not receiving hemodialysis. -Pt already started dialysis prior to pt being seen. -Potassium -normalized ESRD on HD -Pt on MWF dialysis schedule, follows with Dr Prakash -nephrology aware and pt receiving dialysis today -vascular surgery consulted as pt is scheduled for thrombectomy of fistula thrombosis tomorrow. -Appreciate Vascular surgery and Nephrology input -Dialysis tomorrow -PT/OT evaluation and Home tomorrow OA Generalized Continue Ultram Avoid Narcotics CAD, PVD -continue ASA -continue lipitor -recommend smoking cessation -denies any symptoms HTN: -Pt has not been taking home meds and hasn't had HD. Will wait until pt done with dialysis and if continues to be hypertensive consider hydralazine -can continue metoprolol -BP remains stable DM II -Pt hasn't been taking her insulin past several days. Glucose 138 currently. Will hold on Lantus currently and do sliding scale per protocol. -HgbA1c: 7.7 on 05/30/17 -SSI with [facility] blood sugar check DVT PROPHYLAXIS -SCD's as will hold on heparin with pt having recent procedure and scheduled for procedure in am. DISPOSITION -admit tele - Full Code as per discussion with pt -Follows with Dr Becerra for routine care Vital Signs: Date Time Temp Pulse Resp B/P (MAP) Pulse Ox O2 Delivery O2 Flow Rate FiO2 06/08/17 12:00 Room Air 06/08/17 10:52 36.8 78 18 149/85 (106) 91 06/08/17 08:00 Room Air 06/08/17 08:00 Room Air 06/08/17 07:59 Room Air 06/08/17 07:57 37.0 84 18 148/84 (105) 94 Room Air 06/08/17 03:55 37.8 87 19 147/81 (103) 92 Room Air 06/08/17 00:22 37.4 88 18 132/77 (95) 95 Room Air 06/08/17 00:00 Room Air 06/07/17 21:49 90 158/91 (113) 06/07/17 20:00 98 Room Air 06/07/17 18:57 36.8 89 170/95 (120) 06/07/17 18:50 37.0 95 20 178/103 98 Room Air 06/07/17 18:30 82 172/103 06/07/17 18:15 83 168/103 06/07/17 18:00 86 179/103 06/07/17 17:45 87 178/103 06/07/17 17:30 87 183/103 06/07/17 17:15 86 182/106 06/07/17 17:00 85 177/103 06/07/17 16:45 89 180/107 06/07/17 16:30 86 185/112 06/07/17 16:15 85 175/96 06/07/17 16:00 86 180/108 06/07/17 15:45 88 186/107 06/07/17 15:45 87 192/108 (136) 06/07/17 15:25 37.0 87 18 208/98 98 Room Air 06/07/17 15:00 37.0 91 18 195/96 95 Room Air 06/07/17 14:37 36.8 85 18 200/98 94 Room Air Lab Results: Results Past 24 Hours Test 06/07/17 14:47 06/07/17 19:19 06/07/17 20:00 06/08/17 06:15 Range/Units Bedside Glucose 138 107 116 70-90 mg/dl White Blood Count 12.14 4.8-10.8 K/uL Red Blood Count 3.16 4.2-5.4 M/uL Hemoglobin 9.2 12.0-16.0 g/dL Hematocrit 27.9 37-47 % Mean Corpuscular Volume 88.3 80-100 fL Mean Corpuscular Hemoglobin 29.1 25-34 pg Mean Corpuscular Hemoglobin Concent 33.0 32-36 g/dl RDW Standard Deviation 47.3 36.4-46.3 fL RDW Coefficient of Variation 14.6 11.5-14.5 % Platelet Count 452 130-400 K/uL Mean Platelet Volume 10.5 7.4-10.4 fL Test 06/08/17 06:16 06/08/17 08:39 06/08/17 11:20 Range/Units White Blood Count 10.90 4.8-10.8 K/uL Red Blood Count 2.86 4.2-5.4 M/uL Hemoglobin 8.5 12.0-16.0 g/dL Hematocrit 26.0 37-47 % Mean Corpuscular Volume 90.9 80-100 fL Mean Corpuscular Hemoglobin 29.7 25-34 pg Mean Corpuscular Hemoglobin Concent 32.7 32-36 g/dl RDW Standard Deviation 49.2 36.4-46.3 fL RDW Coefficient of Variation 14.7 11.5-14.5 % Platelet Count 411 130-400 K/uL Mean Platelet Volume 9.7 7.4-10.4 fL Prothrombin Time 12.8 9.0-12.0 SECONDS Prothromb Time International Ratio 1.2 0.9-1.1 Sodium Level 133 136-145 mmol/L Potassium Level 4.6 3.5-5.1 mmol/L Chloride Level 97 98-107 mmol/L Carbon Dioxide Level 24 21-32 mmol/L Anion Gap 12.0 3-11 mmol/L Blood Urea Nitrogen 58 7-18 mg/dl Creatinine 10.30 0.60-1.20 mg/dl Est Creatinine Clear Calc Drug Dose 8.0 ml/min Estimated GFR () 4.5 Estimated GFR (Non- 3.9 BUN/Creatinine Ratio 5.5 10-20 Random Glucose 115 70-99 mg/dl Calcium Level 9.2 8.5-10.1 mg/dl Bedside Glucose 133 121 70-90 mg/dl
--- NOTE | 2017-06-08 15:18 | [facility] Post Operative Brief Note ---
Immediate Operative Summary Operative Date Jun 08, 2017. Pre-Operative Diagnosis Thrombosed Left Upper Arm Fistula Post-Operative Diagnosis Thrombosed Left Upper Arm Fistula Procedure(s) Performed Thrombectomy Left upper arm arteriovenous fistula and revision Surgeon Dr. Jones Child Welfare Manager Surgeon(s) none Estimated Blood Loss 150ml Findings good thrill Specimens none per surgeon Anesthesia MAC Complication(s) None Disposition Recovery Room / PACU
[2017-06-08] MEDS ORDERED: PHENYLEPHRINE 100MCG/ML 5ML SYR ONE (15:24)
--- NOTE | 2017-06-08 15:32 | Progress Note ---
Progress Note Date of Service Jun 08, 2017. Progress Note Patient can be d/c'd tomorrow after we pull her temporary femoral catheter.
--- NOTE | 2017-06-08 16:21 | Anesthesiology Progress Note ---
Anesthesia Post Op Note Date & Time Jun 08, 2017 at 16:21 Vital Signs Pain Intensity: 0 Vital Signs Past 12 Hours Date Time Temp Pulse Resp B/P (MAP) Pulse Ox O2 Delivery O2 Flow Rate FiO2 06/08/17 16:00 36.4 64 16 108/58 99 Nasal Cannula 3 06/08/17 15:50 36.4 62 16 102/56 99 Nasal Cannula 3 06/08/17 15:35 36.4 65 16 98/52 99 Nasal Cannula 3 06/08/17 15:25 65 16 101/40 96 Nasal Cannula 3 06/08/17 15:16 36.4 68 16 92/29 96 Nasal Cannula 3 06/08/17 12:00 Room Air 06/08/17 10:52 36.8 78 18 149/85 (106) 91 06/08/17 08:00 Room Air 06/08/17 08:00 Room Air 06/08/17 07:59 Room Air 06/08/17 07:57 37.0 84 18 148/84 (105) 94 Room Air Notes Mental Status: alert / awake / arousable, participated in evaluation Pt Amnestic to Procedure: Yes Nausea / Vomiting: adequately controlled Pain: adequately controlled Airway Patency, RR, SpO2: stable & adequate BP & HR: stable & adequate Hydration State: stable & adequate Anesthetic Complications: no major complications apparent
[2017-06-08] MEDS: SERTRALINE HCL 100 MG TAB PO SCH (20:52)
[2017-06-08] MEDS: FLUTICASONE PROPIONATE NA SPR 16 GM BTL NAE PRN (20:52)
[2017-06-09] VITALS (8 sets, daily range): BP systolic 108–124; BP diastolic 61–78; PULSE 74–90; TEMP 36.5–37.2; O2SAT 91–99
[2017-06-09] MEDS: OXYCODONE/ACETAMINOPHEN 5-325 TAB PO PRN (05:28)
[2017-06-09 06:04] LABS: HEMATOCRIT 24.6 % (37-47); MEAN CELL VOLUME 92.8 fL (80-100); MEAN CORPUSCULAR HEMOGLOBIN 29.4 pg (25-34); MEAN CORPUSCULAR HGB CONC 31.7 g/dl (32-36); MEAN PLATELET VOLUME 9.8 fL (7.4-10.4); PLATELET COUNT 365 K/uL (130-400); RED BLOOD COUNT 2.65 M/uL (4.2-5.4); WHITE BLOOD COUNT 9.54 K/uL (4.8-10.8)
[2017-06-09 06:51] LABS: BUN/CREATININE RATIO 5.1 (10-20); CALCIUM 8.8 mg/dl (8.5-10.1); CREATININE 7.77 mg/dl (0.60-1.20); POTASSIUM 4.7 mmol/L (3.5-5.1)
[2017-06-09] MEDS: CALCIUM ACETATE 667MG GELCAP PO SCH ×4 (07:30→16:45)
[2017-06-09] MEDS: LACTOBACILLUS ACIDOPHILUS (FLORANEX) TAB PO SCH ×3 (07:30→16:45)
[2017-06-09] MEDS: INSULIN ASPART 100 UNITS/ML 3 ML PEN SC SCH ×4 (07:59→21:00)
[2017-06-09] MEDS: ISOSORBIDE MONONITRATE 60 MG TABCR PO SCH ×2 (08:03→09:00)
[2017-06-09] MEDS: ISOSORBIDE MONONITRATE 30 MG TABCR PO SCH ×2 (08:03→09:00)
[2017-06-09] MEDS: METOPROLOL SUCC 50MG EXT REL TAB PO SCH ×2 (08:04→09:00)
[2017-06-09] MEDS: ATORVASTATIN 40 MG TAB PO SCH ×2 (08:04→09:00)
[2017-06-09] MEDS: ASPIRIN 81 MG ECTAB PO SCH ×2 (08:04→09:00)
[2017-06-09] MEDS: PANTOprazole SOD 40 MG TAB PO SCH ×2 (08:04→09:00)
--- NOTE | 2017-06-09 12:36 | Anesthesiology Progress Note ---
Anesthesia Post Op Note Date & Time Jun 09, 2017 at 12:36 Vital Signs Pain Intensity: 3.0 Vital Signs Past 12 Hours Date Time Temp Pulse Resp B/P (MAP) Pulse Ox O2 Delivery O2 Flow Rate FiO2 06/09/17 11:54 37.0 77 18 115/69 (84) 99 06/09/17 08:00 Room Air 06/09/17 07:39 36.5 78 18 108/65 (79) 97 06/09/17 04:00 Room Air 06/09/17 03:28 37.2 80 17 109/61 (77) 96 Notes Mental Status: alert / awake / arousable, participated in evaluation Pt Amnestic to Procedure: Yes Nausea / Vomiting: adequately controlled Pain: adequately controlled Airway Patency, RR, SpO2: stable & adequate BP & HR: stable & adequate Hydration State: stable & adequate Anesthetic Complications: no major complications apparent
--- NOTE | 2017-06-09 13:40 | Progress Note ---
Internal Med Progress Note Date of Service: Jun 09, 2017. Provider Documentation: SUBJECTIVE: The patient was seen and examined Complains of Soreness all over Awaiting Physical Therapy Generalized weakness OBJECTIVE: Vital Signs-as noted below Exam: General-NO distress at rest Eyes-normal ENT-normal Neck-supple Lungs-Clear to ausucltate bilaterally Heart-Regular ,no murmur appreciated Abdomen-Benign,no masses Extremities-NO edema Neuro-AAOx3 Generally weak and Lethargic,No focal neuro deficit Lab data as noted below. ASSESSMENT & PLAN: HYPERKALEMIA: Secondary to ESRD -Probable secondary to pt not receiving hemodialysis. -Pt already started dialysis prior to pt being seen. -Potassium -normalized ESRD on HD -Pt on MWF dialysis schedule, follows with Dr Prakash -nephrology aware and pt receiving dialysis today -vascular surgery consulted as pt is scheduled for thrombectomy of fistula thrombosis tomorrow. -Appreciate Vascular surgery and Nephrology input -Dialysis and likely home this afternoon -PT/OT evaluation and Home tomorrow -may need home health OA Generalized Continue Ultram Avoid Narcotics Getting PT CAD, PVD -continue ASA -continue lipitor -recommend smoking cessation -denies any symptoms HTN: -Pt has not been taking home meds and hasn't had HD. Will wait until pt done with dialysis and if continues to be hypertensive consider hydralazine -can continue metoprolol -BP remains stable DM II -Pt hasn't been taking her insulin past several days. Glucose 138 currently. Will hold on Lantus currently and do sliding scale per protocol. -HgbA1c: 7.7 on 05/30/17 -SSI with [facility] blood sugar check DVT PROPHYLAXIS -SCD's as will hold on heparin with pt having recent procedure and scheduled for procedure in am. DISPOSITION -admit tele - Full Code as per discussion with pt -Follows with Dr Becerra for routine care -Likely to be discharged today/tomorrow Vital Signs: Date Time Temp Pulse Resp B/P (MAP) Pulse Ox O2 Delivery O2 Flow Rate FiO2 06/09/17 12:00 Room Air 06/09/17 11:54 37.0 77 18 115/69 (84) 99 06/09/17 08:00 Room Air 06/09/17 07:39 36.5 78 18 108/65 (79) 97 06/09/17 04:00 Room Air 06/09/17 03:28 37.2 80 17 109/61 (77) 96 06/09/17 00:00 Room Air 06/08/17 23:25 36.7 78 20 105/57 (73) 95 Nasal Cannula 2.0 06/08/17 20:00 Room Air 06/08/17 19:54 36.8 68 111/58 (75) 06/08/17 19:45 60 104/60 06/08/17 19:33 36.8 66 16 91/57 (68) 100 Room Air 06/08/17 19:30 66 105/59 06/08/17 19:15 66 91/55 06/08/17 19:00 65 85/46 06/08/17 18:45 66 155/53 06/08/17 18:30 109 123/102 06/08/17 18:15 69 96/57 06/08/17 18:00 66 89/59 06/08/17 17:45 72 102/52 06/08/17 17:30 69 91/50 06/08/17 17:15 68 104/45 06/08/17 17:00 72 105/62 06/08/17 16:45 68 107/60 06/08/17 16:20 36.4 68 107/60 (76) 06/08/17 16:00 99 Room Air 06/08/17 16:00 36.4 64 16 108/58 99 Nasal Cannula 3 06/08/17 15:50 36.4 62 16 102/56 99 Nasal Cannula 3 06/08/17 15:35 36.4 65 16 98/52 99 Nasal Cannula 3 06/08/17 15:25 65 16 101/40 96 Nasal Cannula 3 06/08/17 15:16 36.4 68 16 92/29 96 Nasal Cannula 3 Lab Results: Results Past 24 Hours Test 06/08/17 15:32 06/08/17 16:30 06/08/17 19:42 06/09/17 05:52 Range/Units Bedside Glucose 98 93 96 70-90 mg/dl White Blood Count 9.54 4.8-10.8 K/uL Red Blood Count 2.65 4.2-5.4 M/uL Hemoglobin 7.8 12.0-16.0 g/dL Hematocrit 24.6 37-47 % Mean Corpuscular Volume 92.8 80-100 fL Mean Corpuscular Hemoglobin 29.4 25-34 pg Mean Corpuscular Hemoglobin Concent 31.7 32-36 g/dl RDW Standard Deviation 49.6 36.4-46.3 fL RDW Coefficient of Variation 14.7 11.5-14.5 % Platelet Count 365 130-400 K/uL Mean Platelet Volume 9.8 7.4-10.4 fL Sodium Level 133 136-145 mmol/L Potassium Level 4.7 3.5-5.1 mmol/L Chloride Level 98 98-107 mmol/L Carbon Dioxide Level 28 21-32 mmol/L Anion Gap 7.0 3-11 mmol/L Blood Urea Nitrogen 40 7-18 mg/dl Creatinine 7.77 0.60-1.20 mg/dl Est Creatinine Clear Calc Drug Dose 10.6 ml/min Estimated GFR () 6.4 Estimated GFR (Non- 5.5 BUN/Creatinine Ratio 5.1 10-20 Random Glucose 156 70-99 mg/dl Calcium Level 8.8 8.5-10.1 mg/dl Test 06/09/17 06:44 06/09/17 11:06 Range/Units Bedside Glucose 157 131 70-90 mg/dl
--- NOTE | 2017-06-09 15:55 | Procedure Note ---
Procedure Note Procedure Date Jun 09, 2017. Procedure Description Procedure Name: Removal temporary femoral HD catheter Procedure time out: side/site verified, patient ID confirmed, correct procedure Consent obtained: verbal Time of procedure: 15:25 Performed by: physician cabin supervisor Indications: other (No longer needed for HD) Contraindications: none Description: After prepping in sterile manner, anchor sutures removed and catheter pulled gently. Pressure held to exit site for 10minutes. No further bleeding noted, so dressing applied. Complications: none Patient tolerated procedure: well Post-procedure vital signs: other
--- NOTE | 2017-06-09 16:08 | Nephrology Progress Note ---
Nephrology Progress Note Date of Service: Jun 09, 2017. Subjective This is a 51y/o ESRD patient admitted for failed access and hyperkalemia. Patient had a temporary femoral cath placed and patient had dialysis on the and after thrombectomy. Patient has not used arm access for dialysis yet. catheter removed today. Plan for dialysis tomorrow to confirm that access is functional. States that she is tired but otherwise well. tolerated dialysis well yesterday. She denies any SOB, chest pain, nausea or vomiting. volume status appropriate. Objective Date Time Temp Pulse Resp B/P (MAP) Pulse Ox O2 Delivery O2 Flow Rate FiO2 06/09/17 12:00 Room Air 06/09/17 11:54 37.0 77 18 115/69 (84) 99 06/09/17 08:00 Room Air 06/09/17 07:39 36.5 78 18 108/65 (79) 97 06/09/17 04:00 Room Air 06/09/17 03:28 37.2 80 17 109/61 (77) 96 06/09/17 00:00 Room Air 06/08/17 23:25 36.7 78 20 105/57 (73) 95 Nasal Cannula 2.0 06/08/17 20:00 Room Air 06/08/17 19:54 36.8 68 111/58 (75) 06/08/17 19:45 60 104/60 06/08/17 19:33 36.8 66 16 91/57 (68) 100 Room Air 06/08/17 19:30 66 105/59 06/08/17 19:15 66 91/55 06/08/17 19:00 65 85/46 06/08/17 18:45 66 155/53 06/08/17 18:30 109 123/102 06/08/17 18:15 69 96/57 06/08/17 18:00 66 89/59 06/08/17 17:45 72 102/52 06/08/17 17:30 69 91/50 06/08/17 17:15 68 104/45 06/08/17 17:00 72 105/62 06/08/17 16:45 68 107/60 06/08/17 16:20 36.4 68 107/60 (76) Physical Exam: GENERAL: Awake, alert, oriented x3, obese. EYES: No scleral icterus. ENT: Moist mucous membranes. NECK: Supple. CEA scar on left side PULMONARY: Clear to auscultation. CARDIAC: Regular rate and rhythm. ABDOMEN: Bowel sounds positive, soft, nontender, nondistended. EXTREMITIES: Mild edema. with cyst on the dorsum of her left foot. dressing over fem cath removal. petra over c/d/i incisions RUE. +bruit NEUROLOGICALLY: Nonfocal. DERMATOLOGIC: No rash or ulcers noted. Current Inpatient Medications Medications (Trade) Dose Ordered Sig/Bladimir Route Start Time Stop Time Status Last Admin Dose Admin Acetaminophen (Tylenol Tab) 650 mg Q4H PRN PO 06/07/17 15:45 07/07/17 15:44 Ondansetron HCl (Zofran Inj) 4 mg Q6H PRN IV 06/07/17 15:45 07/07/17 15:44 06/07/17 22:41 4 MG Miscellaneous (Iv Fluids Completed) 1 ea PRN PRN N/A 06/07/17 16:00 06/07/18 15:59 Insulin Aspart (novoLOG ASPART) SLIDING SCALE If C... ACHS SC 06/07/17 21:00 07/07/17 20:59 06/09/17 11:42 3 UNITS Glucose (Glucose 40% Gel) 15-30 GRAMS 15 GRAMS... UD PRN PO 06/07/17 16:15 07/07/17 16:14 Glucose (Glucose Chew Tab) 4-8 Tablets 4 Tabl... UD PRN PO 06/07/17 16:15 07/07/17 16:14 Dextrose (Dextrose 50% 50ML Syringe) 25-50ML OF 50% DW IV FOR... UD PRN IV 06/07/17 16:15 07/07/17 16:14 Glucagon (Glucagon Inj) 1 mg UD PRN SQ 06/07/17 16:15 07/07/17 16:14 Aspirin (Ecotrin Tab) 81 mg QAM PO 06/08/17 09:00 07/08/17 08:59 06/08/17 09:09 81 MG Atorvastatin Calcium (Lipitor Tab) 40 mg QAM PO 06/08/17 09:00 07/08/17 08:59 06/08/17 09:09 40 MG Calcium Acetate (Phoslo Cap) 1,334 mg UD PRN PO 06/07/17 16:30 07/07/17 16:29 Calcium Acetate (Phoslo Cap) 2,001 mg TIDM PO 06/07/17 17:01 07/07/17 17:59 06/09/17 11:37 2,001 MG Dicyclomine HCl (Bentyl Cap) 10 mg QID PRN PO 06/07/17 16:30 07/07/17 16:29 06/08/17 04:37 10 MG Fluticasone Propionate (Flonase Nasal [place]) 2 sprays DAILY PRN NAYAN 06/07/17 16:30 07/07/17 16:29 06/08/17 20:52 2 SPRAYS Isosorbide Mononitrate (Imdur Ext Rel Tab) 30 mg QAM PO 06/08/17 09:00 07/08/17 08:59 06/08/17 09:09 30 MG Isosorbide Mononitrate (Imdur Ext Rel Tab) 60 mg QAM PO 06/08/17 09:00 07/08/17 08:59 06/08/17 09:09 60 MG Lorazepam (Ativan Tab) 0.5 mg DAILY PRN PO 06/07/17 16:30 07/07/17 16:29 Metoprolol Succinate (Toprol Xl Tab) 50 mg QAM PO 06/08/17 09:00 07/08/17 08:59 06/08/17 09:10 50 MG Oxycodone/ Acetaminophen (Percocet 5-325mg Tab) 1 tab Q4H PRN PO 06/07/17 16:30 06/21/17 16:29 06/09/17 05:28 1 TAB Pantoprazole Sodium (Protonix Tab) 40 mg DAILY PO 06/08/17 09:00 07/08/17 08:59 06/08/17 09:09 40 MG Sertraline HCl (Zoloft Tab) 100 mg HS PO 06/07/17 21:00 07/07/17 20:59 06/08/17 20:52 100 MG Lactobacillus Acidophilus (Floranex Tab) 4 tab BIDM PO 06/07/17 17:01 07/07/17 17:59 06/08/17 09:08 4 TAB Loratadine (Claritin Tab) 5 mg DAILY PRN PO 06/07/17 16:26 07/07/17 16:25 Last 24 Hours Test 06/08/17 16:30 06/08/17 19:42 06/09/17 05:52 06/09/17 06:44 Bedside Glucose 93 mg/dl 96 mg/dl 157 mg/dl White Blood Count 9.54 K/uL Red Blood Count 2.65 M/uL Hemoglobin 7.8 g/dL Hematocrit 24.6 % Mean Corpuscular Volume 92.8 fL Mean Corpuscular Hemoglobin 29.4 pg Mean Corpuscular Hemoglobin Concent 31.7 g/dl RDW Standard Deviation 49.6 fL RDW Coefficient of Variation 14.7 % Platelet Count 365 K/uL Mean Platelet Volume 9.8 fL Sodium Level 133 mmol/L Potassium Level 4.7 mmol/L Chloride Level 98 mmol/L Carbon Dioxide Level 28 mmol/L Anion Gap 7.0 mmol/L Blood Urea Nitrogen 40 mg/dl Creatinine 7.77 mg/dl Est Creatinine Clear Calc Drug Dose 10.6 ml/min Estimated GFR () 6.4 Estimated GFR (Non- 5.5 BUN/Creatinine Ratio 5.1 Random Glucose 156 mg/dl Calcium Level 8.8 mg/dl Test 06/09/17 11:06 Bedside Glucose 131 mg/dl Assessment & Plan End-stage renal disease. Patient tolerated dialysis yesterday. Potassium this morning is 4.7. plan to continue dialysis on // schedule or as clinical condition dictates. dialysis team to use newly operated access. no longer with catheter. Hyperkalemia. Potassium 4.6. plan for 2k bath with dialysis. Hyponatremia. Sodium level continues to be 133. volume status appropriate and will continue to follow. 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 Hypertension: generally better controlled. no need for additional antihypertensives to current regimen at this time. This patient was seen and treated with direct collaboration with Dr. Prakash. Thank you for the opportunity to participate in this patient's care. Appreciate the Consult. ATTENDING NOTE: I performed a history and physical examination of the patient, including specifically on history- sleepy, had dialysis catheter removed, on physical exam-minimal edema, and my impression and plan are ESRD through access in arm tomorrow. I have discussed the patient's management with Alka Green PA-C, Please refer to above note for the documented findings and plan of care. Shahbaz Prakash DO
[2017-06-09] MEDS: SERTRALINE HCL 100 MG TAB PO SCH (21:09)
[2017-06-10] VITALS (22 sets, daily range): BP systolic 82–154; BP diastolic 40–83; PULSE 66–75; TEMP 36.5–37; O2SAT 92–98
[2017-06-10] MEDS: ONDANSETRON INJ 2 MG/ML 2 ML VIAL IV PRN (03:19)
[2017-06-10] MEDS ORDERED: EPOETIN ALFA 10,000 UNITS/ML VIAL IV. SCH (07:00)
[2017-06-10] MEDS: CALCIUM ACETATE 667MG GELCAP PO SCH ×2 (07:30→17:36)
[2017-06-10] MEDS: LACTOBACILLUS ACIDOPHILUS (FLORANEX) TAB PO SCH ×2 (07:30→17:36)
[2017-06-10] MEDS ORDERED: PROMETHAZINE HCL INJ 12.5 MG in SODIUM CHLORIDE 0.9% 50ML 50 ML IV PRN (08:00)
[2017-06-10] MEDS: INSULIN ASPART 100 UNITS/ML 3 ML PEN SC SCH ×3 (08:33→21:35)
[2017-06-10] MEDS: ISOSORBIDE MONONITRATE 30 MG TABCR PO SCH (09:00)
[2017-06-10] MEDS: METOPROLOL SUCC 50MG EXT REL TAB PO SCH (09:00)
[2017-06-10] MEDS: ISOSORBIDE MONONITRATE 60 MG TABCR PO SCH (09:00)
--- NOTE | 2017-06-10 09:11 | Nephrology Progress Note ---
Nephrology Progress Note Date of Service: Jun 10, 2017. Subjective This is a 51y/o ESRD patient admitted for failed access and hyperkalemia. Patient had a temporary femoral cath placed and patient had dialysis on the and after thrombectomy. Patient has not used arm access for dialysis yet. catheter removed yesterday. for dialysis with revised access today and plan to continue dialysis as outpatient if access requires no further intervention. today she states that she is slightly nauseous today. with decreased po intake. No SOB, chest pain, vomiting. volume status appropriate. Objective Date Time Temp Pulse Resp B/P (MAP) Pulse Ox O2 Delivery O2 Flow Rate FiO2 06/10/17 08:00 36.5 73 18 122/77 (92) 94 Room Air 06/10/17 04:09 37.0 75 18 104/69 (81) 96 Room Air 06/10/17 04:00 95 Room Air 06/10/17 00:00 95 Room Air 06/09/17 23:48 36.9 79 19 124/78 (93) 91 06/09/17 20:00 95 Room Air 06/09/17 18:57 36.9 90 16 118/75 (89) 95 Room Air 06/09/17 16:07 36.9 76 18 117/74 (88) 97 Room Air 06/09/17 16:00 Room Air 06/09/17 15:55 74 97 06/09/17 12:00 Room Air 06/09/17 11:54 37.0 77 18 115/69 (84) 99 Physical Exam: GENERAL: Awake, alert, oriented x3, obese. EYES: No scleral icterus. ENT: Moist mucous membranes. NECK: Supple. CEA scar on left side PULMONARY: Clear to auscultation. CARDIAC: Regular rate and rhythm. ABDOMEN: Bowel sounds positive, soft, nontender, nondistended. EXTREMITIES: Mild edema. with cyst on the dorsum of her left foot. dressing over fem cath removal. petra over c/d/i incisions RUE. +bruit NEUROLOGICALLY: Nonfocal. DERMATOLOGIC: No rash or ulcers noted. Current Inpatient Medications Medications (Trade) Dose Ordered Sig/Bladimir Route Start Time Stop Time Status Last Admin Dose Admin Acetaminophen (Tylenol Tab) 650 mg Q4H PRN PO 06/07/17 15:45 07/07/17 15:44 Ondansetron HCl (Zofran Inj) 4 mg Q6H PRN IV 06/07/17 15:45 07/07/17 15:44 06/10/17 03:19 4 MG Miscellaneous (Iv Fluids Completed) 1 ea PRN PRN N/A 06/07/17 16:00 06/07/18 15:59 Insulin Aspart (novoLOG ASPART) SLIDING SCALE If C... ACHS SC 06/07/17 21:00 07/07/17 20:59 06/09/17 11:42 3 UNITS Glucose (Glucose 40% Gel) 15-30 GRAMS 15 GRAMS... UD PRN PO 06/07/17 16:15 07/07/17 16:14 Glucose (Glucose Chew Tab) 4-8 Tablets 4 Tabl... UD PRN PO 06/07/17 16:15 07/07/17 16:14 Dextrose (Dextrose 50% 50ML Syringe) 25-50ML OF 50% DW IV FOR... UD PRN IV 06/07/17 16:15 07/07/17 16:14 Glucagon (Glucagon Inj) 1 mg UD PRN SQ 06/07/17 16:15 07/07/17 16:14 Aspirin (Ecotrin Tab) 81 mg QAM PO 06/08/17 09:00 07/08/17 08:59 06/08/17 09:09 81 MG Atorvastatin Calcium (Lipitor Tab) 40 mg QAM PO 06/08/17 09:00 07/08/17 08:59 06/08/17 09:09 40 MG Calcium Acetate (Phoslo Cap) 1,334 mg UD PRN PO 06/07/17 16:30 07/07/17 16:29 Calcium Acetate (Phoslo Cap) 2,001 mg TIDM PO 06/07/17 17:01 07/07/17 17:59 06/09/17 11:37 2,001 MG Dicyclomine HCl (Bentyl Cap) 10 mg QID PRN PO 06/07/17 16:30 07/07/17 16:29 06/08/17 04:37 10 MG Fluticasone Propionate (Flonase Nasal [place]) 2 sprays DAILY PRN NAYAN 06/07/17 16:30 07/07/17 16:29 06/08/17 20:52 2 SPRAYS Isosorbide Mononitrate (Imdur Ext Rel Tab) 30 mg QAM PO 06/08/17 09:00 07/08/17 08:59 06/08/17 09:09 30 MG Isosorbide Mononitrate (Imdur Ext Rel Tab) 60 mg QAM PO 06/08/17 09:00 07/08/17 08:59 06/08/17 09:09 60 MG Lorazepam (Ativan Tab) 0.5 mg DAILY PRN PO 06/07/17 16:30 07/07/17 16:29 Metoprolol Succinate (Toprol Xl Tab) 50 mg QAM PO 06/08/17 09:00 07/08/17 08:59 06/08/17 09:10 50 MG Oxycodone/ Acetaminophen (Percocet 5-325mg Tab) 1 tab Q4H PRN PO 06/07/17 16:30 06/21/17 16:29 06/09/17 05:28 1 TAB Pantoprazole Sodium (Protonix Tab) 40 mg DAILY PO 06/08/17 09:00 07/08/17 08:59 06/08/17 09:09 40 MG Sertraline HCl (Zoloft Tab) 100 mg HS PO 06/07/17 21:00 07/07/17 20:59 06/09/17 21:09 100 MG Lactobacillus Acidophilus (Floranex Tab) 4 tab BIDM PO 06/07/17 17:01 07/07/17 17:59 06/08/17 09:08 4 TAB Loratadine (Claritin Tab) 5 mg DAILY PRN PO 06/07/17 16:26 07/07/17 16:25 Epoetin Christopher (Procrit Inj) 10,000 units TODAY@0700 IV. 06/10/17 07:00 06/10/17 18:00 Promethazine HCl 12.5 mg/Sodium Chloride 50.5 ml @ 204 mls/hr Q6H PRN IV 06/10/17 08:00 07/10/17 07:59 06/10/17 08:32 204 MLS/HR Last 24 Hours Test 06/09/17 11:06 06/09/17 16:31 06/09/17 20:43 06/10/17 06:37 Bedside Glucose 131 mg/dl 127 mg/dl 104 mg/dl 101 mg/dl Assessment & Plan End-stage renal disease. Plan for dialysis today. will only try for 1Liter UF as patient's volume status is improved and she is not eating/drinking as much. continue to monitor potassium. to run on a 2k bath. ok from a renal standpoint to discharge after dialysis if access works well. will continue dialysis on m// schedule as outpatient. Hyperkalemia. plan for 2k bath with dialysis. continue to follow potassium. Hyponatremia. volume status appropriate and will continue to follow. 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 Hypertension: generally better controlled. no need for additional antihypertensives to current regimen at this time. This patient was seen and treated with direct collaboration with Dr. Prakash. Thank you for the opportunity to participate in this patient's care. Appreciate the Consult. ATTENDING NOTE: I performed a history and physical examination of the patient, including specifically on history- pt feels good, no sob, still tired and decreased appetite,on physical exam-lungs cta, fistula with good bruit and thrill, and my impression and plan are ESRD-for dialysis today with fistula and ok from renal standpoint to go home after dialysis. I have discussed the patient's management with Alka Green PA-C, Please refer to above note for the documented findings and plan of care. Shahbaz Prakash DO
[2017-06-10] MEDS: ATORVASTATIN 40 MG TAB PO SCH (09:17)
[2017-06-10] MEDS: ASPIRIN 81 MG ECTAB PO SCH (09:17)
[2017-06-10] MEDS: PANTOprazole SOD 40 MG TAB PO SCH (09:18)
--- NOTE | 2017-06-10 09:25 | Progress Note ---
Internal Med Progress Note Date of Service: Jun 10, 2017. Provider Documentation: SUBJECTIVE: Seen and examined at bedside Feels very tired States having nausea and is very sleepy this morning Denies Chest pain, SOB, dizziness Planned for HD today Offers no other complaints OBJECTIVE: Vital Signs-as noted below Physical Exam: General Appearance:Obese, no apparent distress, very sleepy Head: normocephalic, Atraumatic Eyes: normal inspection, EOMI, PERRL Neck: supple, Trachea midline Respiratory/Chest: Normal breath sounds, CTA Cardiovascular: S1, S2, No murmur Abdomen/GI:Soft, Non tender, Bowel sounds present Extremities/Musculoskelatal:normal inspection, no edema Neurologic/Psych:grossly no focal neurological deficits Skin: normal color, warm Lab data as noted below. ASSESSMENT & PLAN: HYPERKALEMIA: Secondary to ESRD Resolved monitor ESRD on HD On MWF dialysis schedule, follows with Dr Prakash Removal of temporary femoral HD catheter by Vascular Surgery Appreciate Vascular surgery and Nephrology input Planned for dialysis using the newly operated access PT/OT May need home health OA Generalized CAD, PVD continue ASA, Lipitor recommend smoking cessation denies any symptoms HTN: stable continue current meds monitor DM II Pt hasn't been taking her insulin past several days. HgbA1c: 7.7 on 05/30/17 Continue SSI with ACHS blood sugar check DVT Px SCD's CODE STATUS: Full Code DISPOSITION Follows with Dr Becerra for routine care Plan to discharge home when stable. May need Home Health Vital Signs: Date Time Temp Pulse Resp B/P (MAP) Pulse Ox O2 Delivery O2 Flow Rate FiO2 06/10/17 15:12 36.5 70 120/60 (80) 06/10/17 15:00 67 93/44 06/10/17 14:45 66 85/41 06/10/17 14:30 69 100/47 06/10/17 14:15 70 89/45 06/10/17 14:00 70 101/49 06/10/17 13:45 69 82/45 06/10/17 13:30 70 95/51 06/10/17 13:15 70 88/42 06/10/17 13:00 70 91/49 06/10/17 12:45 70 84/40 06/10/17 12:30 72 92/48 06/10/17 12:15 69 109/56 06/10/17 12:08 69 130/55 06/10/17 11:49 36.5 71 154/69 (97) 06/10/17 11:45 36.7 74 18 126/76 (93) 92 Room Air 06/10/17 08:00 36.5 73 18 122/77 (92) 94 Room Air 06/10/17 08:00 Room Air 06/10/17 04:09 37.0 75 18 104/69 (81) 96 Room Air 06/10/17 04:00 95 Room Air 06/10/17 00:00 95 Room Air 06/09/17 23:48 36.9 79 19 124/78 (93) 91 06/09/17 20:00 95 Room Air 06/09/17 18:57 36.9 90 16 118/75 (89) 95 Room Air 06/09/17 16:07 36.9 76 18 117/74 (88) 97 Room Air Lab Results: Results Past 24 Hours Test 06/09/17 16:31 06/09/17 20:43 06/10/17 06:37 06/10/17 11:08 Range/Units Bedside Glucose 127 104 101 91 70-90 mg/dl
[2017-06-10] MEDS: OXYCODONE/ACETAMINOPHEN 5-325 TAB PO PRN (16:10)
[2017-06-10] MEDS: SERTRALINE HCL 100 MG TAB PO SCH (21:34)
[2017-06-11] MEDS: INSULIN ASPART 100 UNITS/ML 3 ML PEN SC SCH ×4 (06:30→21:18)
[2017-06-11] MEDS: ONDANSETRON INJ 2 MG/ML 2 ML VIAL IV PRN ×2 (06:38→15:05)
[2017-06-11] MEDS: LACTOBACILLUS ACIDOPHILUS (FLORANEX) TAB PO SCH ×3 (08:00→16:55)
[2017-06-11] MEDS: CALCIUM ACETATE 667MG GELCAP PO SCH ×4 (08:00→17:00)
[2017-06-11 08:06] LABS: HEMATOCRIT 24.7 % (37-47)
[2017-06-11 08:11] VITALS: BP_SYST 134; BP_SYST 158; BP_DIAS 74; BP_DIAS 75; PULSE 71; PULSE 78; TEMP 36.6; TEMP 36.7; O2SAT 93
[2017-06-11] MEDS: PANTOprazole SOD 40 MG TAB PO SCH (08:17)
[2017-06-11] MEDS: METOPROLOL SUCC 50MG EXT REL TAB PO SCH (08:17)
[2017-06-11] MEDS: ISOSORBIDE MONONITRATE 30 MG TABCR PO SCH (08:18)
[2017-06-11] MEDS: ASPIRIN 81 MG ECTAB PO SCH (08:18)
[2017-06-11] MEDS: ATORVASTATIN 40 MG TAB PO SCH (08:18)
[2017-06-11] MEDS: ISOSORBIDE MONONITRATE 60 MG TABCR PO SCH (08:18)
[2017-06-11 08:55] LABS: BUN/CREATININE RATIO 4.5 (10-20); CALCIUM 8.9 mg/dl (8.5-10.1); CREATININE 6.74 mg/dl (0.60-1.20); MAGNESIUM 2.5 mg/dl (1.8-2.4); PHOSPHORUS 6.7 mg/dl (2.5-4.9)
--- NOTE | 2017-06-11 15:05 | Progress Note ---
Internal Med Progress Note Date of Service: Jun 11, 2017. Provider Documentation: SUBJECTIVE: The patient was seen and examined Complains of Soreness all over Remains weak and lethargic Not yet ready to be discharged OBJECTIVE: Vital Signs-as noted below Exam: General-NO distress at rest Eyes-normal ENT-normal Neck-supple Lungs-Clear to ausucltate bilaterally Heart-Regular ,no murmur appreciated Abdomen-Benign,no masses Extremities-NO edema Neuro-AAOx3 Generally weak and Lethargic,No focal neuro deficit Lab data as noted below. ASSESSMENT & PLAN: HYPERKALEMIA:-resolved Secondary to ESRD -Probable secondary to pt not receiving hemodialysis. -Pt already started dialysis prior to pt being seen. -Potassium -normalized -continue with Dialysis Generalized Weakness Deconditioning Lacks motivation Getting PT/OT ESRD on HD -Pt on MWF dialysis schedule, follows with Dr Prakash -nephrology aware and pt receiving dialysis today -vascular surgery consulted as pt is scheduled for thrombectomy of fistula thrombosis tomorrow. -Appreciate Vascular surgery and Nephrology input -Dialysis and likely home this afternoon -PT/OT evaluation and Home tomorrow -may need home health OA Generalized Continue Ultram Avoid Narcotics Getting PT CAD, PVD -continue ASA -continue lipitor -recommend smoking cessation -denies any symptoms HTN: -Pt has not been taking home meds and hasn't had HD. Will wait until pt done with dialysis and if continues to be hypertensive consider hydralazine -can continue metoprolol -BP remains stable DM II -Pt hasn't been taking her insulin past several days. Glucose 138 currently. Will hold on Lantus currently and do sliding scale per protocol. -HgbA1c: 7.7 on 05/30/17 -SSI with [facility] blood sugar check DVT PROPHYLAXIS -SCD's as will hold on heparin with pt having recent procedure and scheduled for procedure in am. DISPOSITION -admit tele - Full Code as per discussion with pt -Follows with Dr Becerra for routine care -Likely to be discharged in a day or two Vital Signs: Date Time Temp Pulse Resp B/P (MAP) Pulse Ox O2 Delivery O2 Flow Rate FiO2 06/11/17 08:11 36.7 71 18 134/75 (94) 93 06/11/17 08:00 Room Air 06/11/17 00:00 Room Air 06/10/17 23:11 36.8 75 20 103/62 (76) 93 Room Air 06/10/17 20:00 Room Air 06/10/17 16:00 Room Air 06/10/17 16:00 36.6 69 18 148/83 (104) 98 Room Air 06/10/17 15:12 36.5 70 120/60 (80) Lab Results: Results Past 24 Hours Test 06/10/17 16:31 06/10/17 19:40 06/11/17 07:30 Range/Units Bedside Glucose 82 161 70-90 mg/dl Hemoglobin 7.6 12.0-16.0 g/dL Hematocrit 24.7 37-47 % Sodium Level 134 136-145 mmol/L Potassium Level 4.0 3.5-5.1 mmol/L Chloride Level 97 98-107 mmol/L Carbon Dioxide Level 28 21-32 mmol/L Anion Gap 9.0 3-11 mmol/L Blood Urea Nitrogen 30 7-18 mg/dl Creatinine 6.74 0.60-1.20 mg/dl Est Creatinine Clear Calc Drug Dose 12.2 ml/min Estimated GFR () 7.6 Estimated GFR (Non- 6.5 BUN/Creatinine Ratio 4.5 10 Random Glucose 107 70-99 mg/dl Calcium Level 8.9 8.5-10.1 mg/dl Phosphorus Level 6.7 2.5-4.9 mg/dl Magnesium Level 2.5 1.8-2.4 mg/dl
[2017-06-11 15:30] VITALS: BP 153/88; PULSE 74; TEMP 36.9; O2SAT 95
[2017-06-11] MEDS: FLUTICASONE PROPIONATE NA SPR 16 GM BTL NAE PRN (16:57)
[2017-06-11] MEDS: SERTRALINE HCL 100 MG TAB PO SCH (21:17)
[2017-06-12 01:14] VITALS: BP 138/63; PULSE 64; TEMP 36.4; O2SAT 98
[2017-06-12 07:43] VITALS: BP 134/72; PULSE 63; TEMP 36.7; O2SAT 97
[2017-06-12] MEDS: CALCIUM ACETATE 667MG GELCAP PO SCH ×5 (08:00→17:25)
[2017-06-12] MEDS: ATORVASTATIN 40 MG TAB PO SCH (08:25)
[2017-06-12] MEDS: ASPIRIN 81 MG ECTAB PO SCH (08:25)
[2017-06-12] MEDS: ISOSORBIDE MONONITRATE 30 MG TABCR PO SCH (08:26)
[2017-06-12] MEDS: ISOSORBIDE MONONITRATE 60 MG TABCR PO SCH (08:26)
[2017-06-12] MEDS: PANTOprazole SOD 40 MG TAB PO SCH (08:27)
[2017-06-12] MEDS: LACTOBACILLUS ACIDOPHILUS (FLORANEX) TAB PO SCH ×2 (08:27→17:25)
[2017-06-12] MEDS: METOPROLOL SUCC 50MG EXT REL TAB PO SCH (08:28)
[2017-06-12] MEDS: INSULIN ASPART 100 UNITS/ML 3 ML PEN SC SCH ×4 (08:32→21:07)
[2017-06-12] MEDS: OXYCODONE/ACETAMINOPHEN 5-325 TAB PO PRN ×2 (08:34→17:30)
--- NOTE | 2017-06-12 11:27 | Progress Note ---
Internal Med Progress Note Date of Service: Jun 12, 2017. Provider Documentation: SUBJECTIVE: The patient was seen and examined Complains of Soreness all over -not any better Remains weak and lethargic getting PT and likely to need in patient rehab OBJECTIVE: Vital Signs-as noted below Exam: General-NO distress at rest Eyes-normal ENT-normal Neck-supple Lungs-Clear to ausucltate bilaterally Heart-Regular ,no murmur appreciated Abdomen-Benign,no masses Extremities-NO edema Neuro-AAOx3 Generally weak and Lethargic,No focal neuro deficit Lab data as noted below. ASSESSMENT & PLAN: HYPERKALEMIA:-resolved Secondary to ESRD -Probable secondary to pt not receiving hemodialysis. -Pt already started dialysis prior to pt being seen. 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 -Appreciate Vascular surgery and Nephrology input -Dialysis and likely home this afternoon -PT/OT evaluation -planning to go for rehab OA Generalized Continue Ultram Avoid Narcotics Getting PT CAD, PVD -continue ASA -continue lipitor -recommend smoking cessation -denies any symptoms HTN: -Pt has not been taking home meds and hasn't had HD. Will wait until pt done with dialysis and if continues to be hypertensive consider hydralazine -can continue metoprolol -BP remains stable DM II -Pt hasn't been taking her insulin past several days. Glucose 138 currently. Will hold on Lantus currently and do sliding scale per protocol. -HgbA1c: 7.7 on 05/30/17 -SSI with [facility] blood sugar check DVT PROPHYLAXIS -SCD's as will hold on heparin with pt having recent procedure and scheduled for procedure in am. DISPOSITION -admit tele - Full Code as per discussion with pt -Follows with Dr Becerra for routine care -Uncertain -may need placement Vital Signs: Date Time Temp Pulse Resp B/P (MAP) Pulse Ox O2 Delivery O2 Flow Rate FiO2 06/12/17 07:43 36.7 63 16 134/72 (92) 97 Room Air 06/12/17 01:14 36.4 64 18 138/63 (88) 98 Room Air 06/12/17 00:00 Room Air 06/11/17 16:00 Room Air 06/11/17 15:30 36.9 74 18 153/88 (109) 95 Room Air Lab Results: Results Past 24 Hours Test 06/11/17 11:41 06/11/17 16:33 06/11/17 20:20 06/12/17 07:31 Range/Units Bedside Glucose 123 145 185 180 70-90 mg/dl
[2017-06-12 15:31] VITALS: BP 124/68; PULSE 58; TEMP 36.4; O2SAT 95
[2017-06-12] MEDS: SERTRALINE HCL 100 MG TAB PO SCH (21:08)
[2017-06-12 23:39] VITALS: BP 112/69; PULSE 56; TEMP 36.6; O2SAT 92
[2017-06-13] VITALS (22 sets, daily range): BP systolic 92–145; BP diastolic 41–73; PULSE 58–82; TEMP 36.6–36.9; O2SAT 95–99
[2017-06-13 06:17] LABS: HEMATOCRIT 24.3 % (37-47); MEAN CELL VOLUME 95.3 fL (80-100); MEAN CORPUSCULAR HEMOGLOBIN 29.4 pg (25-34); MEAN CORPUSCULAR HGB CONC 30.9 g/dl (32-36); MEAN PLATELET VOLUME 9.9 fL (7.4-10.4); PLATELET COUNT 394 K/uL (130-400); RED BLOOD COUNT 2.55 M/uL (4.2-5.4); WHITE BLOOD COUNT 10.02 K/uL (4.8-10.8)
[2017-06-13 07:01] LABS: BUN/CREATININE RATIO 4.8 (10-20); CALCIUM 8.9 mg/dl (8.5-10.1); CREATININE 10.2 mg/dl (0.60-1.20); POTASSIUM 4.1 mmol/L (3.5-5.1)
[2017-06-13] MEDS ORDERED: HEPARIN SOD (PORCINE) 1000 UNIT/ML 10 ML VIAL IV SCH (08:00)
[2017-06-13] MEDS ORDERED: EPOETIN ALFA INJ 12,000 UNITS in SYRINGE 0 ML IV. SCH (08:00)
[2017-06-13] MEDS ORDERED: EPOETIN ALFA 10,000 UNITS/ML VIAL IV. ONE (08:00)
[2017-06-13] MEDS: ATORVASTATIN 40 MG TAB PO SCH (08:03)
[2017-06-13] MEDS: ASPIRIN 81 MG ECTAB PO SCH (08:03)
[2017-06-13] MEDS: CALCIUM ACETATE 667MG GELCAP PO SCH ×3 (08:04→17:00)
[2017-06-13] MEDS: ISOSORBIDE MONONITRATE 30 MG TABCR PO SCH (08:04)
[2017-06-13] MEDS: LACTOBACILLUS ACIDOPHILUS (FLORANEX) TAB PO SCH ×3 (08:05→17:35)
[2017-06-13] MEDS: ISOSORBIDE MONONITRATE 60 MG TABCR PO SCH (08:05)
[2017-06-13] MEDS: METOPROLOL SUCC 50MG EXT REL TAB PO SCH (08:06)
[2017-06-13] MEDS: PANTOprazole SOD 40 MG TAB PO SCH (08:06)
[2017-06-13] MEDS: OXYCODONE/ACETAMINOPHEN 5-325 TAB PO PRN ×2 (08:27→22:04)
[2017-06-13] MEDS: INSULIN ASPART 100 UNITS/ML 3 ML PEN SC SCH ×4 (08:29→22:01)
[2017-06-13] MEDS: HEPARIN SOD (PORCINE) 1000 UNIT/ML 10 ML VIAL IV SCH ×2 (10:30→11:30)
[2017-06-13] MEDS ORDERED: IRON SUCROSE INJ 100 MG in SODIUM CHLORIDE 0.9% 100ML 100 ML IV STA (13:24)
--- NOTE | 2017-06-13 13:27 | Nephrology Progress Note ---
Nephrology Progress Note Date of Service: Jun 13, 2017. Subjective seen on rounds this am 0715. no c/o dyspnea. some N past 48 hrs. c/o marked fatigue, generalized weakness. d/c to rehab in planning stages Objective Date Time Temp Pulse Resp B/P (MAP) Pulse Ox O2 Delivery O2 Flow Rate FiO2 06/13/17 13:00 60 110/52 06/13/17 12:45 61 115/44 06/13/17 12:30 59 100/49 06/13/17 12:15 59 104/51 06/13/17 12:00 62 103/52 06/13/17 11:45 60 100/50 06/13/17 11:31 59 92/46 06/13/17 11:16 58 96/41 06/13/17 11:00 62 105/52 06/13/17 10:45 61 94/51 06/13/17 10:19 82 144/62 06/13/17 10:00 61 114/51 06/13/17 09:45 61 110/54 06/13/17 09:32 61 140/72 06/13/17 09:20 36.9 64 145/71 (95) 06/13/17 08:00 Room Air 06/13/17 07:44 36.6 62 20 119/68 (85) 95 Room Air 06/13/17 00:00 Room Air 06/12/17 23:39 36.6 56 20 112/69 (83) 92 Room Air 06/12/17 20:00 Room Air 06/12/17 15:31 36.4 58 16 124/68 (86) 95 Physical Exam: GENERAL: Awake, alert, oriented x3, obese. on RA EYES: No scleral icterus. ENT: Moist mucous membranes. NECK: Supple. CEA scar on left PULMONARY: Clear to auscultation w/ diminished air entry CARDIAC: Regular rate and rhythm. ABDOMEN: Bowel sounds positive, soft, nontender, nondistended. EXTREMITIES: trace BL edema. dressing over fem cath site. petra over c/d/i incisions RUE. +bruit NEUROLOGICALLY: Nonfocal. DERMATOLOGIC: No rash or ulcers noted. Current Inpatient Medications Medications (Trade) Dose Ordered Sig/Bladimir Route Start Time Stop Time Status Last Admin Dose Admin Acetaminophen (Tylenol Tab) 650 mg Q4H PRN PO 06/07/17 15:45 07/07/17 15:44 06/11/17 21:32 650 MG Ondansetron HCl (Zofran Inj) 4 mg Q6H PRN IV 06/07/17 15:45 07/07/17 15:44 06/11/17 15:05 4 MG Miscellaneous (Iv Fluids Completed) 1 ea PRN PRN N/A 06/07/17 16:00 06/07/18 15:59 Insulin Aspart (novoLOG ASPART) SLIDING SCALE If C... ACHS SC 06/07/17 21:00 07/07/17 20:59 06/13/17 08:29 7 UNITS Glucose (Glucose 40% Gel) 15-30 GRAMS 15 GRAMS... UD PRN PO 06/07/17 16:15 07/07/17 16:14 Glucose (Glucose Chew Tab) 4-8 Tablets 4 Tabl... UD PRN PO 06/07/17 16:15 07/07/17 16:14 Dextrose (Dextrose 50% 50ML Syringe) 25-50ML OF 50% DW IV FOR... UD PRN IV 06/07/17 16:15 07/07/17 16:14 Glucagon (Glucagon Inj) 1 mg UD PRN SQ 06/07/17 16:15 07/07/17 16:14 Aspirin (Ecotrin Tab) 81 mg QAM PO 06/08/17 09:00 07/08/17 08:59 06/13/17 08:03 81 MG Atorvastatin Calcium (Lipitor Tab) 40 mg QAM PO 06/08/17 09:00 07/08/17 08:59 06/13/17 08:03 40 MG Calcium Acetate (Phoslo Cap) 1,334 mg UD PRN PO 06/07/17 16:30 07/07/17 16:29 Calcium Acetate (Phoslo Cap) 2,001 mg TIDM PO 06/07/17 17:01 07/07/17 17:59 06/13/17 08:04 2,001 MG Dicyclomine HCl (Bentyl Cap) 10 mg QID PRN PO 06/07/17 16:30 07/07/17 16:29 06/08/17 04:37 10 MG Fluticasone Propionate (Flonase Nasal [place]) 2 sprays DAILY PRN NAYAN 06/07/17 16:30 07/07/17 16:29 06/11/17 16:57 2 SPRAYS Isosorbide Mononitrate (Imdur Ext Rel Tab) 30 mg QAM PO 06/08/17 09:00 07/08/17 08:59 06/13/17 08:04 30 MG Isosorbide Mononitrate (Imdur Ext Rel Tab) 60 mg QAM PO 06/08/17 09:00 07/08/17 08:59 06/13/17 08:05 60 MG Lorazepam (Ativan Tab) 0.5 mg DAILY PRN PO 06/07/17 16:30 07/07/17 16:29 Metoprolol Succinate (Toprol Xl Tab) 50 mg QAM PO 06/08/17 09:00 07/08/17 08:59 06/13/17 08:06 50 MG Oxycodone/ Acetaminophen (Percocet 5-325mg Tab) 1 tab Q4H PRN PO 06/07/17 16:30 06/21/17 16:29 06/13/17 08:27 1 TAB Pantoprazole Sodium (Protonix Tab) 40 mg DAILY PO 06/08/17 09:00 07/08/17 08:59 06/13/17 08:06 40 MG Sertraline HCl (Zoloft Tab) 100 mg HS PO 06/07/17 21:00 07/07/17 20:59 06/12/17 21:08 100 MG Lactobacillus Acidophilus (Floranex Tab) 4 tab BIDM PO 06/07/17 17:01 07/07/17 17:59 06/13/17 08:05 4 TAB Loratadine (Claritin Tab) 5 mg DAILY PRN PO 06/07/17 16:26 07/07/17 16:25 Promethazine HCl 12.5 mg/Sodium Chloride 50.5 ml @ 204 mls/hr Q6H PRN IV 06/10/17 08:00 07/10/17 07:59 06/10/17 08:32 204 MLS/HR Last 24 Hours Test 06/12/17 16:35 06/12/17 20:10 06/13/17 05:50 06/13/17 08:02 Bedside Glucose 103 mg/dl 155 mg/dl 232 mg/dl White Blood Count 10.02 K/uL Red Blood Count 2.55 M/uL Hemoglobin 7.5 g/dL Hematocrit 24.3 % Mean Corpuscular Volume 95.3 fL Mean Corpuscular Hemoglobin 29.4 pg Mean Corpuscular Hemoglobin Concent 30.9 g/dl RDW Standard Deviation 51.0 fL RDW Coefficient of Variation 15.0 % Platelet Count 394 K/uL Mean Platelet Volume 9.9 fL Sodium Level 136 mmol/L Potassium Level 4.1 mmol/L Chloride Level 98 mmol/L Carbon Dioxide Level 27 mmol/L Anion Gap 10.0 mmol/L Blood Urea Nitrogen 49 mg/dl Creatinine 10.20 mg/dl Est Creatinine Clear Calc Drug Dose 8.0 ml/min Estimated GFR () 4.6 Estimated GFR (Non- 4.0 BUN/Creatinine Ratio 4.8 Random Glucose 203 mg/dl Calcium Level 8.9 mg/dl Iron Level 36 mcg/dl Total Iron Binding Capacity 197 mcg/dl Transferrin 156 mg/dl Transferrin % Saturation 16 % Assessment & Plan 51y/o F ESRD patient admitted for failed access and hyperkalemia. She had a temporary femoral cath placed and patient had dialysis on the and after thrombectomy. temp cath now removed; used arm on 06/10 End-stage renal disease. Plan for dialysis today. goal 1.5-2 Liter UF continue to monitor potassium. to run on a 2k bath. ok from a renal standpoint to discharge after dialysis if access works well. will continue dialysis on m// schedule as outpatient. Hyperkalemia. resolved; cont renal diet, 2K bath anemia of ESRD w/ iron deficiency > gave venofer and high dose procrit CKD-MBD: continue phosphate binders with food as prescribed. Appreciate consult; will follow with you. CAre coordinated w/ Dr. López
[2017-06-13] MEDS ORDERED: IRON SUCROSE INJ 100 MG in SYRINGE 0 ML IV SCH (14:00)
--- NOTE | 2017-06-13 15:04 | Progress Note ---
Internal Med Progress Note Date of Service: Jun 13, 2017. Provider Documentation: SUBJECTIVE: The patient was seen and examined Remains generally weak Feels exhausted following Dialysis today Wants to go to rehab OBJECTIVE: Vital Signs-as noted below Exam: General-NO distress at rest Eyes-normal ENT-normal Neck-supple Lungs-Clear to ausucltate bilaterally With decreased breath sound bilaterally Heart-Regular ,no murmur appreciated Abdomen-Benign,no masses Extremities-No edema Neuro-AAOx3 Generally weak and Lethargic,No focal neuro deficit Lab data as noted below. ASSESSMENT & PLAN: Generalized Weakness Deconditioning Lacks motivation Getting PT/OT -likely to need rehab Discussed with the patient -wants to go to [facility] Awaiting placement HYPERKALEMIA:-resolved Secondary to ESRD -Probable secondary to pt not receiving hemodialysis. -Pt already started dialysis prior to pt being seen. -Potassium -normalized -continue with Dialysis as planned ESRD on HD -Pt on MWF dialysis schedule, follows with Dr Prakash -nephrology aware and pt receiving dialysis today -vascular surgery consulted as pt is scheduled for thrombectomy of fistula thrombosis tomorrow. -Appreciate Vascular surgery and Nephrology input -PT/OT evaluation -planning to go for rehab -continue HD as per Sales Representative Facility Services OA Generalized aches and pain Continue Ultram Avoid Narcotics CAD, PVD -continue ASA -continue Lipitor -recommend smoking cessation -denies any symptoms HTN: -Pt has not been taking home meds and hasn't had HD. Will wait until pt done with dialysis and if continues to be hypertensive consider hydralazine -can continue metoprolol -BP remains stable DM II -Pt hasn't been taking her insulin past several days. Glucose 138 currently. Will hold on Lantus currently and do sliding scale per protocol. -HgbA1c: 7.7 on 05/30/17 -SSI with [facility] blood sugar check DVT PROPHYLAXIS -SCD's as will hold on heparin with pt having recent procedure and scheduled for procedure in am. DISPOSITION -admit tele - Full Code as per discussion with pt -Follows with Dr Becerra for routine care -likely to need Rehabilitation Vital Signs: Date Time Temp Pulse Resp B/P (MAP) Pulse Ox O2 Delivery O2 Flow Rate FiO2 06/13/17 14:36 36.6 61 118/63 (81) 06/13/17 14:00 60 114/57 06/13/17 13:45 59 109/54 06/13/17 13:30 62 109/56 06/13/17 13:15 60 106/55 06/13/17 13:00 60 110/52 06/13/17 12:45 61 115/44 06/13/17 12:30 59 100/49 06/13/17 12:15 59 104/51 06/13/17 12:00 62 103/52 06/13/17 11:45 60 100/50 06/13/17 11:31 59 92/46 06/13/17 11:16 58 96/41 06/13/17 11:00 62 105/52 06/13/17 10:45 61 94/51 06/13/17 10:19 82 144/62 06/13/17 10:00 61 114/51 06/13/17 09:45 61 110/54 06/13/17 09:32 61 140/72 06/13/17 09:20 36.9 64 145/71 (95) 06/13/17 08:00 Room Air 06/13/17 07:44 36.6 62 20 119/68 (85) 95 Room Air 06/13/17 00:00 Room Air 06/12/17 23:39 36.6 56 20 112/69 (83) 92 Room Air 06/12/17 20:00 Room Air 06/12/17 15:31 36.4 58 16 124/68 (86) 95 Lab Results: Results Past 24 Hours Test 06/12/17 16:35 06/12/17 20:10 06/13/17 05:50 06/13/17 08:02 Range/Units Bedside Glucose 103 155 232 70-90 mg/dl White Blood Count 10.02 4.8-10.8 K/uL Red Blood Count 2.55 4.2-5.4 M/uL Hemoglobin 7.5 12.0-16.0 g/dL Hematocrit 24.3 37-47 % Mean Corpuscular Volume 95.3 80-100 fL Mean Corpuscular Hemoglobin 29.4 25-34 pg Mean Corpuscular Hemoglobin Concent 30.9 32-36 g/dl RDW Standard Deviation 51.0 36.4-46.3 fL RDW Coefficient of Variation 15.0 11.5-14.5 % Platelet Count 394 130-400 K/uL Mean Platelet Volume 9.9 7.4-10.4 fL Sodium Level 136 136-145 mmol/L Potassium Level 4.1 3.5-5.1 mmol/L Chloride Level 98 98-107 mmol/L Carbon Dioxide Level 27 21-32 mmol/L Anion Gap 10.0 3-11 mmol/L Blood Urea Nitrogen 49 7-18 mg/dl Creatinine 10.20 0.60-1.20 mg/dl Est Creatinine Clear Calc Drug Dose 8.0 ml/min Estimated GFR () 4.6 Estimated GFR (Non- 4.0 BUN/Creatinine Ratio 4.8 10-20 Random Glucose 203 70-99 mg/dl Calcium Level 8.9 8.5-10.1 mg/dl Iron Level 36 35-150 mcg/dl Total Iron Binding Capacity 197 250-450 mcg/dl Transferrin 156 200-360 mg/dl Transferrin % Saturation 16 15-50 %
[2017-06-13] MEDS: SERTRALINE HCL 100 MG TAB PO SCH (21:58)
[2017-06-14 00:07] VITALS: BP 132/72; PULSE 75; TEMP 36.4; O2SAT 98
[2017-06-14 07:10] VITALS: BP_SYST 138; BP_SYST 73; BP_DIAS 73; PULSE 64; TEMP 36.8; O2SAT 97
[2017-06-14 07:45] LABS: HEMATOCRIT 27.1 % (37-47); MEAN CELL VOLUME 96.1 fL (80-100); MEAN CORPUSCULAR HEMOGLOBIN 28.7 pg (25-34); MEAN CORPUSCULAR HGB CONC 29.9 g/dl (32-36); MEAN PLATELET VOLUME 9.7 fL (7.4-10.4); PLATELET COUNT 359 K/uL (130-400); RED BLOOD COUNT 2.82 M/uL (4.2-5.4); WHITE BLOOD COUNT 10.86 K/uL (4.8-10.8)
[2017-06-14] MEDS: ISOSORBIDE MONONITRATE 60 MG TABCR PO SCH (08:18)
[2017-06-14] MEDS: LACTOBACILLUS ACIDOPHILUS (FLORANEX) TAB PO SCH ×2 (08:18→17:57)
[2017-06-14] MEDS: METOPROLOL SUCC 50MG EXT REL TAB PO SCH (08:18)
[2017-06-14] MEDS: CALCIUM ACETATE 667MG GELCAP PO SCH ×3 (08:18→17:56)
[2017-06-14] MEDS: ATORVASTATIN 40 MG TAB PO SCH (08:18)
[2017-06-14] MEDS: PANTOprazole SOD 40 MG TAB PO SCH (08:18)
[2017-06-14] MEDS: ISOSORBIDE MONONITRATE 30 MG TABCR PO SCH (08:18)
[2017-06-14] MEDS: ASPIRIN 81 MG ECTAB PO SCH (08:18)
[2017-06-14] MEDS: FLUTICASONE PROPIONATE NA SPR 16 GM BTL NAE PRN (08:19)
[2017-06-14] MEDS: OXYCODONE/ACETAMINOPHEN 5-325 TAB PO PRN (08:24)
[2017-06-14] MEDS: INSULIN ASPART 100 UNITS/ML 3 ML PEN SC SCH ×4 (08:38→21:17)
[2017-06-14 16:04] VITALS: BP 114/69; PULSE 61; TEMP 36.6; O2SAT 94
[2017-06-14] MEDS: SERTRALINE HCL 100 MG TAB PO SCH (21:17)
--- NOTE | 2017-06-14 22:26 | Progress Note ---
Medicine Progress Note Date & Time of Visit: Jun 14, 2017 at ~ 16:00 . Subjective Tired. Hemodialysis performed yesterday, not today. No fever. Had transient chest discomfort all straining to move her bowels. No further chest pain. No cough or shortness of breath. Constipated. No nausea or vomiting. . Objective Last 8 Hrs Date Time Temp Pulse Resp B/P (MAP) Pulse Ox O2 Delivery O2 Flow Rate FiO2 06/14/17 18:46 Room Air 06/14/17 16:04 36.6 61 18 114/69 (84) 94 Room Air Physical Exam: General- no distress Lungs- clear Heart- regular Abdomen- slightly distended, soft, nontender Extremities- AV fistula left upper extremity; trace pretibial edema; no calf tenderness Neuro- alert . Laboratory Results: Last 24 Hours Test 06/14/17 07:18 06/14/17 07:47 06/14/17 11:40 06/14/17 16:36 White Blood Count 10.86 K/uL Red Blood Count 2.82 M/uL Hemoglobin 8.1 g/dL Hematocrit 27.1 % Mean Corpuscular Volume 96.1 fL Mean Corpuscular Hemoglobin 28.7 pg Mean Corpuscular Hemoglobin Concent 29.9 g/dl RDW Standard Deviation 51.2 fL RDW Coefficient of Variation 15.3 % Platelet Count 359 K/uL Mean Platelet Volume 9.7 fL Bedside Glucose 193 mg/dl 120 mg/dl 111 mg/dl Test 06/14/17 20:15 Bedside Glucose 132 mg/dl Assessment & Plan CKD V ON HEMODIALYSIS Missed 2 dialysis treatments secondary to thrombosed AV fistula. Serum potassium was 5.6 on admission, subsequently improved. Thrombectomy left upper extremity AV fistula performed by Surgery. Temporary femoral dialysis catheter removed. CORONARY ARTERY DISEASE Chest pain today during strenuous bowel movement. Check EKG with recurrent chest pain. Continue aspirin, metoprolol, nitrates, statin. HYPERTENSION BP 200/98 day of admission. Blood pressures improved. Continue metoprolol and nitrates. DM TYPE II Glycemic control variable. Hemoglobin A1c 7.7 on 05/30/17. Most blood sugars last 48 hours less than 180. Continue NovoLog per protocol. VTE PROPHYLAXIS SCD's. Ambulate. DISPOSITION Poor functional status secondary to deconditioning and multiple medical problems. Anticipated transfer to [facility] for inpatient rehabilitation when medically stable. Family Medicine follow-up with Dr. Becerra. . Current Inpatient Medications: Current Inpatient Medications Medications (Trade) Dose Ordered Sig/Bladimir Route Start Time Stop Time Status Last Admin Dose Admin Acetaminophen (Tylenol Tab) 650 mg Q4H PRN PO 06/07/17 15:45 07/07/17 15:44 06/11/17 21:32 650 MG Ondansetron HCl (Zofran Inj) 4 mg Q6H PRN IV 06/07/17 15:45 07/07/17 15:44 06/11/17 15:05 4 MG Miscellaneous (Iv Fluids Completed) 1 ea PRN PRN N/A 06/07/17 16:00 06/07/18 15:59 Insulin Aspart (novoLOG ASPART) SLIDING SCALE If C... ACHS SC 06/07/17 21:00 07/07/17 20:59 06/14/17 18:01 4 UNITS Glucose (Glucose 40% Gel) 15-30 GRAMS 15 GRAMS... UD PRN PO 06/07/17 16:15 07/07/17 16:14 Glucose (Glucose Chew Tab) 4-8 Tablets 4 Tabl... UD PRN PO 06/07/17 16:15 07/07/17 16:14 Dextrose (Dextrose 50% 50ML Syringe) 25-50ML OF 50% DW IV FOR... UD PRN IV 06/07/17 16:15 07/07/17 16:14 Glucagon (Glucagon Inj) 1 mg UD PRN SQ 06/07/17 16:15 07/07/17 16:14 Aspirin (Ecotrin Tab) 81 mg QAM PO 06/08/17 09:00 07/08/17 08:59 06/14/17 08:18 81 MG Atorvastatin Calcium (Lipitor Tab) 40 mg QAM PO 06/08/17 09:00 07/08/17 08:59 06/14/17 08:18 40 MG Calcium Acetate (Phoslo Cap) 1,334 mg UD PRN PO 06/07/17 16:30 07/07/17 16:29 Calcium Acetate (Phoslo Cap) 2,001 mg TIDM PO 06/07/17 17:01 07/07/17 17:59 06/14/17 17:56 2,001 MG Dicyclomine HCl (Bentyl Cap) 10 mg QID PRN PO 06/07/17 16:30 07/07/17 16:29 06/08/17 04:37 10 MG Fluticasone Propionate (Flonase Nasal [place]) 2 sprays DAILY PRN NAYAN 06/07/17 16:30 07/07/17 16:29 06/14/17 08:19 2 SPRAYS Isosorbide Mononitrate (Imdur Ext Rel Tab) 30 mg QAM PO 06/08/17 09:00 07/08/17 08:59 06/14/17 08:18 30 MG Isosorbide Mononitrate (Imdur Ext Rel Tab) 60 mg QAM PO 06/08/17 09:00 07/08/17 08:59 06/14/17 08:18 60 MG Lorazepam (Ativan Tab) 0.5 mg DAILY PRN PO 06/07/17 16:30 07/07/17 16:29 Metoprolol Succinate (Toprol Xl Tab) 50 mg QAM PO 06/08/17 09:00 07/08/17 08:59 06/14/17 08:18 50 MG Oxycodone/ Acetaminophen (Percocet 5-325mg Tab) 1 tab Q4H PRN PO 06/07/17 16:30 06/21/17 16:29 06/14/17 08:24 1 TAB Pantoprazole Sodium (Protonix Tab) 40 mg DAILY PO 06/08/17 09:00 07/08/17 08:59 06/14/17 08:18 40 MG Sertraline HCl (Zoloft Tab) 100 mg HS PO 06/07/17 21:00 07/07/17 20:59 06/14/17 21:17 100 MG Lactobacillus Acidophilus (Floranex Tab) 4 tab BIDM PO 06/07/17 17:01 07/07/17 17:59 06/14/17 17:57 4 TAB Loratadine (Claritin Tab) 5 mg DAILY PRN PO 06/07/17 16:26 07/07/17 16:25 Promethazine HCl 12.5 mg/Sodium Chloride 50.5 ml @ 204 mls/hr Q6H PRN IV 06/10/17 08:00 07/10/17 07:59 06/10/17 08:32 204 MLS/HR
[2017-06-14 23:50] VITALS: BP 130/84; PULSE 67; TEMP 36.9; O2SAT 95
[2017-06-15] VITALS (22 sets, daily range): BP systolic 95–152; BP diastolic 46–79; PULSE 57–70; TEMP 36.5–37; O2SAT 98–99
[2017-06-15] MEDS: OXYCODONE/ACETAMINOPHEN 5-325 TAB PO PRN ×2 (06:31→18:43)
[2017-06-15] MEDS ORDERED: HEPARIN SOD (PORCINE) 1000 UNIT/ML 10 ML VIAL IV SCH (07:45)
[2017-06-15] MEDS ORDERED: EPOETIN ALFA 10,000 UNITS/ML VIAL IV. ONE (07:45)
[2017-06-15 07:57] LABS: HEMATOCRIT 30.3 % (37-47); MEAN CELL VOLUME 96.5 fL (80-100); MEAN PLATELET VOLUME 9.7 fL (7.4-10.4); PLATELET COUNT 393 K/uL (130-400); RED BLOOD COUNT 3.14 M/uL (4.2-5.4); WHITE BLOOD COUNT 13.33 K/uL (4.8-10.8)
[2017-06-15] MEDS: CALCIUM ACETATE 667MG GELCAP PO SCH ×3 (08:00→18:36)
[2017-06-15] MEDS ORDERED: IRON SUCROSE INJ 100 MG in SYRINGE 0 ML IV SCH (08:30)
[2017-06-15] MEDS ORDERED: EPOETIN ALFA INJ 14,000 UNITS in SYRINGE 0 ML IV. SCH (08:30)
[2017-06-15 08:33] LABS: BUN/CREATININE RATIO 4.8 (10-20); CALCIUM 9.4 mg/dl (8.5-10.1); CREATININE 7.49 mg/dl (0.60-1.20); POTASSIUM 4.3 mmol/L (3.5-5.1)
[2017-06-15] MEDS: ASPIRIN 81 MG ECTAB PO SCH (08:35)
[2017-06-15] MEDS: PANTOprazole SOD 40 MG TAB PO SCH (08:36)
[2017-06-15] MEDS: LACTOBACILLUS ACIDOPHILUS (FLORANEX) TAB PO SCH ×2 (08:36→18:35)
[2017-06-15] MEDS: INSULIN ASPART 100 UNITS/ML 3 ML PEN SC SCH ×4 (08:39→21:17)
[2017-06-15] MEDS ORDERED: DOCUSATE SODIUM/SENNA 50/8.6MG TAB PO ONE (09:00)
[2017-06-15] MEDS: HEPARIN SOD (PORCINE) 1000 UNIT/ML 10 ML VIAL IV SCH (11:00)
[2017-06-15] MEDS: ISOSORBIDE MONONITRATE 60 MG TABCR PO SCH (14:39)
[2017-06-15] MEDS: METOPROLOL SUCC 50MG EXT REL TAB PO SCH (14:39)
[2017-06-15] MEDS: ATORVASTATIN 40 MG TAB PO SCH (14:39)
[2017-06-15] MEDS: ISOSORBIDE MONONITRATE 30 MG TABCR PO SCH (14:39)
--- NOTE | 2017-06-15 17:06 | Dialysis Progress Note ---
Nephrology Dialysis Note Date of Service: Jun 15, 2017. Subjective seen on rounds this am 1010. no c/o dyspnea. c/o marked fatigue, generalized weakness. no cough. d/c to rehab contemplated Objective Date Time Temp Pulse Resp B/P (MAP) Pulse Ox O2 Delivery O2 Flow Rate FiO2 06/15/17 16:25 Room Air 06/15/17 15:29 36.6 67 16 149/78 (101) 99 Room Air 06/15/17 14:38 66 18 152/79 (103) 06/15/17 13:57 36.5 65 123/61 (81) 06/15/17 13:45 63 99/47 06/15/17 13:30 59 111/58 06/15/17 13:15 60 101/52 06/15/17 13:00 60 106/55 06/15/17 12:45 60 114/55 06/15/17 12:30 61 108/58 06/15/17 12:15 57 105/48 06/15/17 12:00 62 108/50 06/15/17 11:45 62 126/60 06/15/17 11:30 62 110/53 06/15/17 11:15 64 119/57 06/15/17 11:00 60 95/50 06/15/17 10:45 62 104/53 06/15/17 10:30 64 95/46 06/15/17 10:15 64 111/51 06/15/17 10:00 62 110/50 06/15/17 09:12 36.7 70 122/54 (76) 06/15/17 08:00 Room Air 06/15/17 07:21 36.9 69 18 138/75 (96) 98 Room Air 06/15/17 03:00 Room Air 06/14/17 23:50 36.9 67 18 130/84 (99) 95 Room Air 06/14/17 18:46 Room Air Physical Exam: GENERAL: Awake, alert, oriented x3, obese. on RA EYES: No scleral icterus. ENT: Moist mucous membranes. NECK: Supple. CEA scar on left PULMONARY: Clear to auscultation w/ diminished air entry CARDIAC: Regular rate and rhythm. ABDOMEN: Bowel sounds positive, soft, nontender, nondistended. EXTREMITIES: no edema. dressing over fem cath site. no redness over avf; + t/b NEUROLOGICALLY: stein, fluent speech DERMATOLOGIC: No rash or ulcers noted. Current Inpatient Medications Medications (Trade) Dose Ordered Sig/Bladimir Route Start Time Stop Time Status Last Admin Dose Admin Acetaminophen (Tylenol Tab) 650 mg Q4H PRN PO 06/07/17 15:45 07/07/17 15:44 06/11/17 21:32 650 MG Ondansetron HCl (Zofran Inj) 4 mg Q6H PRN IV 06/07/17 15:45 07/07/17 15:44 06/11/17 15:05 4 MG Miscellaneous (Iv Fluids Completed) 1 ea PRN PRN N/A 06/07/17 16:00 06/07/18 15:59 Insulin Aspart (novoLOG ASPART) SLIDING SCALE If C... ACHS SC 06/07/17 21:00 07/07/17 20:59 06/15/17 14:43 2 UNITS Glucose (Glucose 40% Gel) 15-30 GRAMS 15 GRAMS... UD PRN PO 06/07/17 16:15 07/07/17 16:14 Glucose (Glucose Chew Tab) 4-8 Tablets 4 Tabl... UD PRN PO 06/07/17 16:15 07/07/17 16:14 Dextrose (Dextrose 50% 50ML Syringe) 25-50ML OF 50% DW IV FOR... UD PRN IV 06/07/17 16:15 07/07/17 16:14 Glucagon (Glucagon Inj) 1 mg UD PRN SQ 06/07/17 16:15 07/07/17 16:14 Aspirin (Ecotrin Tab) 81 mg QAM PO 06/08/17 09:00 07/08/17 08:59 06/15/17 08:35 81 MG Atorvastatin Calcium (Lipitor Tab) 40 mg QAM PO 06/08/17 09:00 07/08/17 08:59 06/15/17 14:39 40 MG Calcium Acetate (Phoslo Cap) 1,334 mg UD PRN PO 06/07/17 16:30 07/07/17 16:29 Calcium Acetate (Phoslo Cap) 2,001 mg TIDM PO 06/07/17 17:01 07/07/17 17:59 06/14/17 17:56 2,001 MG Dicyclomine HCl (Bentyl Cap) 10 mg QID PRN PO 06/07/17 16:30 07/07/17 16:29 06/08/17 04:37 10 MG Fluticasone Propionate (Flonase Nasal [place]) 2 sprays DAILY PRN NAYAN 06/07/17 16:30 07/07/17 16:29 06/14/17 08:19 2 SPRAYS Isosorbide Mononitrate (Imdur Ext Rel Tab) 30 mg QAM PO 06/08/17 09:00 07/08/17 08:59 06/15/17 14:39 30 MG Isosorbide Mononitrate (Imdur Ext Rel Tab) 60 mg QAM PO 06/08/17 09:00 07/08/17 08:59 06/15/17 14:39 60 MG Lorazepam (Ativan Tab) 0.5 mg DAILY PRN PO 06/07/17 16:30 07/07/17 16:29 Metoprolol Succinate (Toprol Xl Tab) 50 mg QAM PO 06/08/17 09:00 07/08/17 08:59 06/15/17 14:39 50 MG Oxycodone/ Acetaminophen (Percocet 5-325mg Tab) 1 tab Q4H PRN PO 06/07/17 16:30 06/21/17 16:29 06/15/17 06:31 1 TAB Pantoprazole Sodium (Protonix Tab) 40 mg DAILY PO 06/08/17 09:00 07/08/17 08:59 06/15/17 08:36 40 MG Sertraline HCl (Zoloft Tab) 100 mg HS PO 06/07/17 21:00 07/07/17 20:59 06/14/17 21:17 100 MG Lactobacillus Acidophilus (Floranex Tab) 4 tab BIDM PO 06/07/17 17:01 07/07/17 17:59 06/15/17 08:36 4 TAB Loratadine (Claritin Tab) 5 mg DAILY PRN PO 06/07/17 16:26 07/07/17 16:25 Promethazine HCl 12.5 mg/Sodium Chloride 50.5 ml @ 204 mls/hr Q6H PRN IV 06/10/17 08:00 07/10/17 07:59 06/10/17 08:32 204 MLS/HR Senna/Docusate Sodium (Senokot S Tab) 2 tab BID PO 06/15/17 20:00 07/15/17 19:59 Last 24 Hours Test 06/14/17 20:15 06/15/17 07:32 06/15/17 07:41 06/15/17 11:28 Bedside Glucose 132 mg/dl 151 mg/dl 160 mg/dl White Blood Count 13.33 K/uL Red Blood Count 3.14 M/uL Hemoglobin 9.1 g/dL Hematocrit 30.3 % Mean Corpuscular Volume 96.5 fL Mean Corpuscular Hemoglobin 29.0 pg Mean Corpuscular Hemoglobin Concent 30.0 g/dl RDW Standard Deviation 51.6 fL RDW Coefficient of Variation 16.1 % Platelet Count 393 K/uL Mean Platelet Volume 9.7 fL Sodium Level 133 mmol/L Potassium Level 4.3 mmol/L Chloride Level 95 mmol/L Carbon Dioxide Level 28 mmol/L Anion Gap 10.0 mmol/L Blood Urea Nitrogen 35 mg/dl Creatinine 7.49 mg/dl Est Creatinine Clear Calc Drug Dose 10.5 ml/min Estimated GFR () 6.7 Estimated GFR (Non- 5.8 BUN/Creatinine Ratio 4.8 Random Glucose 159 mg/dl Calcium Level 9.4 mg/dl Assessment & Plan 51 y/o F ESRD patient admitted for failed access and hyperkalemia. She had a temporary femoral cath placed and patient had dialysis on the and after thrombectomy. temp cath now removed; first used arm successfully after procedure on 06/10 End-stage renal disease. Plan for dialysis today. goal 1.5-2 Liter UF continue to monitor potassium. to run again on 2k bath. ok from renal standpoint to discharge after dialysis if access works well. will continue dialysis on m/w/f schedule as inpt/outpatient. anemia of ESRD w/ iron deficiency > gave venofer and high dose procrit CKD-MBD: continue phosphate binders with food as prescribed. Leukocytosis -- progressive, no clear cause; doubt role for AVF intervention to explain this Appreciate consult; will follow with you. Care coordinated w/ Dr. Bee
[2017-06-15] MEDS: ONDANSETRON INJ 2 MG/ML 2 ML VIAL IV PRN (21:12)
[2017-06-15] MEDS: DOCUSATE SODIUM/SENNA 50/8.6MG TAB PO SCH (21:14)
[2017-06-15] MEDS: SERTRALINE HCL 100 MG TAB PO SCH (21:15)
--- NOTE | 2017-06-15 22:54 | Progress Note ---
Medicine Progress Note Date & Time of Visit: Jun 15, 2017 at ~ 19:00 . Subjective Underwent hemodialysis today without incident. No fever. No chest pain. No cough or SOB. No nausea or vomiting. Constipated. Voids occasionally; no dysuria. . Objective Last 8 Hrs Date Time Temp Pulse Resp B/P (MAP) Pulse Ox O2 Delivery O2 Flow Rate FiO2 06/15/17 16:25 Room Air 06/15/17 15:29 36.6 67 16 149/78 (101) 99 Room Air Physical Exam: General- no distress Neck- no JVD Lungs- clear Heart- regular Abdomen- + BS, soft, nontender Extremities- AV fistula left upper extremity bandaged; trace pretibial edema; no calf tenderness Neuro- alert . Laboratory Results: Last 24 Hours Test 06/15/17 07:32 06/15/17 07:41 06/15/17 11:28 06/15/17 16:33 Bedside Glucose 151 mg/dl 160 mg/dl 119 mg/dl White Blood Count 13.33 K/uL Red Blood Count 3.14 M/uL Hemoglobin 9.1 g/dL Hematocrit 30.3 % Mean Corpuscular Volume 96.5 fL Mean Corpuscular Hemoglobin 29.0 pg Mean Corpuscular Hemoglobin Concent 30.0 g/dl RDW Standard Deviation 51.6 fL RDW Coefficient of Variation 16.1 % Platelet Count 393 K/uL Mean Platelet Volume 9.7 fL Sodium Level 133 mmol/L Potassium Level 4.3 mmol/L Chloride Level 95 mmol/L Carbon Dioxide Level 28 mmol/L Anion Gap 10.0 mmol/L Blood Urea Nitrogen 35 mg/dl Creatinine 7.49 mg/dl Est Creatinine Clear Calc Drug Dose 10.5 ml/min Estimated GFR () 6.7 Estimated GFR (Non- 5.8 BUN/Creatinine Ratio 4.8 Random Glucose 159 mg/dl Calcium Level 9.4 mg/dl Test 06/15/17 20:10 Bedside Glucose 228 mg/dl Assessment & Plan CKD V ON HEMODIALYSIS Missed 2 dialysis treatments secondary to thrombosed AV fistula. Serum potassium was 5.6 on admission, subsequently improved. Thrombectomy left upper extremity AV fistula performed by Surgery. Temporary femoral dialysis catheter removed. Continue hemodialysis as directed by Nephrology. CORONARY ARTERY DISEASE Continue aspirin, metoprolol, nitrates, statin. HYPERTENSION BP 200/98 day of admission. Blood pressures improved. Continue metoprolol and nitrates. DM TYPE II Glycemic control variable. Hemoglobin A1c 7.7 on 05/30/17. FBS today 151. Continue NovoLog per protocol. LEUKOCYTOSIS WBC 13,000. Afebrile. No signs / symptoms of infection. Follow. VTE PROPHYLAXIS SCD's. Ambulate. DISPOSITION Poor functional status secondary to deconditioning and multiple medical problems. Anticipated transfer to [facility] for inpatient rehabilitation when medically stable. Family Medicine follow-up with Dr. Becerra. . Current Inpatient Medications: Current Inpatient Medications Medications (Trade) Dose Ordered Sig/Bladimir Route Start Time Stop Time Status Last Admin Dose Admin Acetaminophen (Tylenol Tab) 650 mg Q4H PRN PO 06/07/17 15:45 07/07/17 15:44 06/11/17 21:32 650 MG Ondansetron HCl (Zofran Inj) 4 mg Q6H PRN IV 06/07/17 15:45 07/07/17 15:44 06/15/17 21:12 4 MG Miscellaneous (Iv Fluids Completed) 1 ea PRN PRN N/A 06/07/17 16:00 06/07/18 15:59 Insulin Aspart (novoLOG ASPART) SLIDING SCALE If C... ACHS SC 06/07/17 21:00 07/07/17 20:59 06/15/17 21:17 2 UNITS Glucose (Glucose 40% Gel) 15-30 GRAMS 15 GRAMS... UD PRN PO 06/07/17 16:15 07/07/17 16:14 Glucose (Glucose Chew Tab) 4-8 Tablets 4 Tabl... UD PRN PO 06/07/17 16:15 07/07/17 16:14 Dextrose (Dextrose 50% 50ML Syringe) 25-50ML OF 50% DW IV FOR... UD PRN IV 06/07/17 16:15 07/07/17 16:14 Glucagon (Glucagon Inj) 1 mg UD PRN SQ 06/07/17 16:15 07/07/17 16:14 Aspirin (Ecotrin Tab) 81 mg QAM PO 06/08/17 09:00 07/08/17 08:59 06/15/17 08:35 81 MG Atorvastatin Calcium (Lipitor Tab) 40 mg QAM PO 06/08/17 09:00 07/08/17 08:59 06/15/17 14:39 40 MG Calcium Acetate (Phoslo Cap) 1,334 mg UD PRN PO 06/07/17 16:30 07/07/17 16:29 Calcium Acetate (Phoslo Cap) 2,001 mg TIDM PO 06/07/17 17:01 07/07/17 17:59 06/15/17 18:36 2,001 MG Dicyclomine HCl (Bentyl Cap) 10 mg QID PRN PO 06/07/17 16:30 07/07/17 16:29 06/08/17 04:37 10 MG Fluticasone Propionate (Flonase Nasal [place]) 2 sprays DAILY PRN NAYAN 06/07/17 16:30 07/07/17 16:29 06/14/17 08:19 2 SPRAYS Isosorbide Mononitrate (Imdur Ext Rel Tab) 30 mg QAM PO 06/08/17 09:00 07/08/17 08:59 06/15/17 14:39 30 MG Isosorbide Mononitrate (Imdur Ext Rel Tab) 60 mg QAM PO 06/08/17 09:00 07/08/17 08:59 06/15/17 14:39 60 MG Lorazepam (Ativan Tab) 0.5 mg DAILY PRN PO 06/07/17 16:30 07/07/17 16:29 Metoprolol Succinate (Toprol Xl Tab) 50 mg QAM PO 06/08/17 09:00 07/08/17 08:59 06/15/17 14:39 50 MG Oxycodone/ Acetaminophen (Percocet 5-325mg Tab) 1 tab Q4H PRN PO 06/07/17 16:30 06/21/17 16:29 06/15/17 18:43 1 TAB Pantoprazole Sodium (Protonix Tab) 40 mg DAILY PO 06/08/17 09:00 07/08/17 08:59 06/15/17 08:36 40 MG Sertraline HCl (Zoloft Tab) 100 mg HS PO 06/07/17 21:00 07/07/17 20:59 06/15/17 21:15 100 MG Lactobacillus Acidophilus (Floranex Tab) 4 tab BIDM PO 06/07/17 17:01 07/07/17 17:59 06/15/17 18:35 4 TAB Loratadine (Claritin Tab) 5 mg DAILY PRN PO 06/07/17 16:26 07/07/17 16:25 Promethazine HCl 12.5 mg/Sodium Chloride 50.5 ml @ 204 mls/hr Q6H PRN IV 06/10/17 08:00 07/10/17 07:59 06/10/17 08:32 204 MLS/HR Senna/Docusate Sodium (Senokot S Tab) 2 tab BID PO 06/15/17 20:00 07/15/17 19:59 06/15/17 21:14 2 TAB
[2017-06-16] MEDS: OXYCODONE/ACETAMINOPHEN 5-325 TAB PO PRN (06:29)
[2017-06-16 07:36] VITALS: BP 126/71; PULSE 66; TEMP 36.8; O2SAT 97
[2017-06-16 08:01] LABS: MEAN CELL VOLUME 98.2 fL (80-100); MEAN CORPUSCULAR HEMOGLOBIN 29.5 pg (25-34); MEAN PLATELET VOLUME 10.1 fL (7.4-10.4); PLATELET COUNT 301 K/uL (130-400); RED BLOOD COUNT 2.75 M/uL (4.2-5.4); WHITE BLOOD COUNT 10.56 K/uL (4.8-10.8)
[2017-06-16] MEDS: METOPROLOL SUCC 50MG EXT REL TAB PO SCH (08:06)
[2017-06-16] MEDS: ISOSORBIDE MONONITRATE 30 MG TABCR PO SCH (08:06)
[2017-06-16] MEDS: ISOSORBIDE MONONITRATE 60 MG TABCR PO SCH (08:06)
[2017-06-16] MEDS: DOCUSATE SODIUM/SENNA 50/8.6MG TAB PO SCH (08:06)
[2017-06-16] MEDS: ASPIRIN 81 MG ECTAB PO SCH (08:06)
[2017-06-16] MEDS: PANTOprazole SOD 40 MG TAB PO SCH (08:06)
[2017-06-16] MEDS: LACTOBACILLUS ACIDOPHILUS (FLORANEX) TAB PO SCH (08:06)
[2017-06-16] MEDS: CALCIUM ACETATE 667MG GELCAP PO SCH ×2 (08:06→12:35)
[2017-06-16] MEDS: ATORVASTATIN 40 MG TAB PO SCH (08:06)
[2017-06-16] MEDS: INSULIN ASPART 100 UNITS/ML 3 ML PEN SC SCH ×2 (08:10→12:57)
[2017-06-16] MEDS: FLUTICASONE PROPIONATE NA SPR 16 GM BTL NAE PRN (08:11)
[2017-06-16 08:23] LABS: ANISOCYTOSIS PRESENT; BASO % 0.2 %; BASO ABS # 0.02 K/uL (0-0.2); COMPLETE YES; EOS % 3.2 %; IG% 0.3 %; NEUT % 68.3 %
[2017-06-16 15:01] VITALS: BP 143/78; PULSE 59; TEMP 36.8; O2SAT 97
--- NOTE | 2017-06-16 15:43 | Progress Note ---
Medicine Progress Note Date & Time of Visit: Jun 16, 2017 at 14:45 . Subjective Feels better. No chest pain, cough, SOB. No nausea, vomiting, diarrhea. . Objective Last 8 Hrs Date Time Temp Pulse Resp B/P (MAP) Pulse Ox O2 Delivery O2 Flow Rate FiO2 06/16/17 15:01 36.8 59 18 143/78 (99) 97 Room Air 06/16/17 08:00 Room Air 06/16/17 07:36 36.8 66 20 126/71 (89) 97 Room Air Physical Exam: General- no distress Neck- no JVD Lungs- clear Heart- regular Abdomen- + BS, soft, nontender Extremities- AV fistula left upper extremity; trace pretibial edema; no calf tenderness Neuro- alert . Laboratory Results: Last 24 Hours Test 06/15/17 16:33 06/15/17 20:10 06/16/17 06:22 06/16/17 07:58 Bedside Glucose 119 mg/dl 228 mg/dl 192 mg/dl White Blood Count 10.56 K/uL Red Blood Count 2.75 M/uL Hemoglobin 8.1 g/dL Hematocrit 27.0 % Mean Corpuscular Volume 98.2 fL Mean Corpuscular Hemoglobin 29.5 pg Mean Corpuscular Hemoglobin Concent 30.0 g/dl Platelet Count 301 K/uL Mean Platelet Volume 10.1 fL Neutrophils (%) (Auto) 68.3 % Lymphocytes (%) (Auto) 18.0 % Monocytes (%) (Auto) 10.0 % Eosinophils (%) (Auto) 3.2 % Basophils (%) (Auto) 0.2 % Neutrophils # (Auto) 7.21 K/uL Lymphocytes # (Auto) 1.90 K/uL Monocytes # (Auto) 1.06 K/uL Eosinophils # (Auto) 0.34 K/uL Basophils # (Auto) 0.02 K/uL RDW Standard Deviation 53.9 fL RDW Coefficient of Variation 16.6 % Immature Granulocyte % (Auto) 0.3 % Immature Granulocyte # (Auto) 0.03 K/uL Anisocytosis PRESENT Test 06/16/17 11:24 Bedside Glucose 136 mg/dl Assessment & Plan CKD V ON HEMODIALYSIS / THROMBOSED AV FISTULA LUE Missed 2 dialysis treatments secondary to thrombosed AV fistula. Serum potassium was 5.6 on admission, subsequently improved. Temporary femoral dialysis catheter placed for dialysis prior to surgery. Thrombectomy left upper extremity AV fistula performed by Vascular Surgery. Femoral dialysis catheter removed. Continue hemodialysis as directed by Nephrology. Vascular Surgery follow-up with Dr. Jones; petra LUE incision to be removed at that time. CORONARY ARTERY DISEASE Continue aspirin, metoprolol, nitrates, statin. HYPERTENSION BP 200/98 day of admission. Blood pressures improved. Continue metoprolol and nitrates. DM TYPE II Glycemic control variable. Hemoglobin A1c 7.7 on 05/30/17. FBS today 192. Continue NovoLog per protocol. Resume Lantus HS. LEUKOCYTOSIS WBC 13,000 06/15. Afebrile. No signs / symptoms of infection. WBC improved- 10,560 today. Follow. VTE PROPHYLAXIS SCD's. Ambulate. DISPOSITION Poor functional status secondary to deconditioning and multiple medical problems. Anticipated transfer to [facility] for inpatient rehabilitation when medically stable. Family Medicine follow-up with Dr. Becerra. . Consultants: Nephrology Vascular Surgery . Procedures: placement femoral hemodialysis catheter hemodialysis thrombectomy AV fistula LUE PT OT . Current Inpatient Medications: Current Inpatient Medications Medications (Trade) Dose Ordered Sig/Bladimir Route Start Time Stop Time Status Last Admin Dose Admin Acetaminophen (Tylenol Tab) 650 mg Q4H PRN PO 06/07/17 15:45 07/07/17 15:44 06/11/17 21:32 650 MG Ondansetron HCl (Zofran Inj) 4 mg Q6H PRN IV 06/07/17 15:45 07/07/17 15:44 06/15/17 21:12 4 MG Miscellaneous (Iv Fluids Completed) 1 ea PRN PRN N/A 06/07/17 16:00 06/07/18 15:59 Insulin Aspart (novoLOG ASPART) SLIDING SCALE If C... ACHS SC 06/07/17 21:00 07/07/17 20:59 06/16/17 12:57 4 UNITS Glucose (Glucose 40% Gel) 15-30 GRAMS 15 GRAMS... UD PRN PO 06/07/17 16:15 07/07/17 16:14 Glucose (Glucose Chew Tab) 4-8 Tablets 4 Tabl... UD PRN PO 06/07/17 16:15 07/07/17 16:14 Dextrose (Dextrose 50% 50ML Syringe) 25-50ML OF 50% DW IV FOR... UD PRN IV 06/07/17 16:15 07/07/17 16:14 Glucagon (Glucagon Inj) 1 mg UD PRN SQ 06/07/17 16:15 07/07/17 16:14 Aspirin (Ecotrin Tab) 81 mg QAM PO 06/08/17 09:00 07/08/17 08:59 06/16/17 08:06 81 MG Atorvastatin Calcium (Lipitor Tab) 40 mg QAM PO 06/08/17 09:00 07/08/17 08:59 06/16/17 08:06 40 MG Calcium Acetate (Phoslo Cap) 1,334 mg UD PRN PO 06/07/17 16:30 07/07/17 16:29 Calcium Acetate (Phoslo Cap) 2,001 mg TIDM PO 06/07/17 17:01 07/07/17 17:59 06/16/17 12:35 2,001 MG Dicyclomine HCl (Bentyl Cap) 10 mg QID PRN PO 06/07/17 16:30 07/07/17 16:29 06/08/17 04:37 10 MG Fluticasone Propionate (Flonase Nasal [place]) 2 sprays DAILY PRN NAYAN 06/07/17 16:30 07/07/17 16:29 06/16/17 08:11 2 SPRAYS Isosorbide Mononitrate (Imdur Ext Rel Tab) 30 mg QAM PO 06/08/17 09:00 07/08/17 08:59 06/16/17 08:06 30 MG Isosorbide Mononitrate (Imdur Ext Rel Tab) 60 mg QAM PO 06/08/17 09:00 07/08/17 08:59 06/16/17 08:06 60 MG Lorazepam (Ativan Tab) 0.5 mg DAILY PRN PO 06/07/17 16:30 07/07/17 16:29 Metoprolol Succinate (Toprol Xl Tab) 50 mg QAM PO 06/08/17 09:00 07/08/17 08:59 06/16/17 08:06 50 MG Oxycodone/ Acetaminophen (Percocet 5-325mg Tab) 1 tab Q4H PRN PO 06/07/17 16:30 06/21/17 16:29 06/16/17 06:29 1 TAB Pantoprazole Sodium (Protonix Tab) 40 mg DAILY PO 06/08/17 09:00 07/08/17 08:59 06/16/17 08:06 40 MG Sertraline HCl (Zoloft Tab) 100 mg HS PO 06/07/17 21:00 07/07/17 20:59 06/15/17 21:15 100 MG Lactobacillus Acidophilus (Floranex Tab) 4 tab BIDM PO 06/07/17 17:01 07/07/17 17:59 06/16/17 08:06 4 TAB Loratadine (Claritin Tab) 5 mg DAILY PRN PO 06/07/17 16:26 07/07/17 16:25 Promethazine HCl 12.5 mg/Sodium Chloride 50.5 ml @ 204 mls/hr Q6H PRN IV 06/10/17 08:00 07/10/17 07:59 06/10/17 08:32 204 MLS/HR Senna/Docusate Sodium (Senokot S Tab) 2 tab BID PO 06/15/17 20:00 07/15/17 19:59 06/16/17 08:06 2 TAB
[2017-06-16] MEDS ORDERED: NVLG SQ (15:52)
[2017-06-16] MEDS ORDERED: SENN8.6T7 PO (15:52)
--- NOTE | 2017-06-16 16:00 | Discharge Instructions ---
Discharge Instructions Date of Service Jun 16, 2017. Admission Reason for Admission: CKD V, thrombosed AV fistula LUE, hyperkalemia . Discharge Discharge Diagnosis / Problem: CKD V, thrombosed AV fistula LUE, hyperkalemia Discharge Goals Goal(s): Decrease discomfort, Improve function, Increase independence, Improve disease control Activity Recommendations Activity Level: Assistance Required Therapies: Physical Therapy, Occupational Therapy . Additional Information Patient informed of condition: Yes Advance Directives: No DNR: No Level of Care: Acute Rehab Communicable Disease: Yes (History MRSA) Prognosis: Improving Oxygen at (LPM): no Puckett Catheter: No Instructions / Follow-Up Instructions / Follow-Up FAMILY MEDICINE Please arrange for follow-up appointment with Dr. Becerra at time of DC from [facility]. NEPHROLOGY [facility] Nephrology. VASCULAR SURGERY Dr. Jones His office will arrange for appointment. [place] LUE incision to be removed at that time. Thank you for receiving this patient in transfer. Please call if you have any questions. Rene Bee . Current Hospital Diet Patient's current hospital diet: AHA Diet (Heart Healthy), Diabetes Type 2 Diet , Renal Diet Discharge Diet Recommended Diet: Diabetes Type 1 Diet, Renal Diet Procedures Procedures Performed: Thrombectomy Left upper arm arteriovenous fistula and revision Pending Studies Studies pending at discharge: no Physician Orders On Transfer Dressing Changes: sterile gauze dressing LUE AV fistula change daily + PRN . Vital Signs: routine . Weigh: daily . Additional Orders: hemodialysis q MWF as directed by Nephrology BSG's AC + HS . POLST Discussion: Not Applicable Laboratory Results Hemoglobin A1c Test 05/30/17 02:08 Range/Units Estimated Average Glucose 174 mg/dl Hemoglobin A1c 7.7 H 4.5-5.6 % Medical Emergencies . Who to Call and When: Medical Emergencies: If at any time you feel your situation is an emergency, please call 911 immediately. . Non-Emergent Contact Non-Emergency issues call your: Primary Care Provider, Hospital Doctor, Horse [employer] . . "Provider Documentation" section prepared by Rene Bee. . Core Measure Problem Core Measures: None
--- NOTE | 2017-06-16 16:04 | Discharge Summary ---
Discharge Summary Date of Service Jun 16, 2017. Discharge Summary Admission Date: Jun 08, 2017 at 10:32 Discharge Date: Jun 16, 2017 Discharge Disposition: Rehab Principal Diagnosis: CKD V on hemodialysis thrombosed AV fistula LUE hyperkalemia . Secondary Diagnoses/Problems: Chronic and Resolved Medical Problems: (1) Allergic rhinitis Status: Chronic (2) CAD (coronary artery disease) Permanent Comment: s/p PCI and BMS to left circumflex 03/2016 Status: Chronic (3) Carotid stenosis Permanent Comment: left ICA Status: Chronic (4) DM type 2 (diabetes mellitus, type 2) Status: Chronic (5) Dyslipidemia Status: Chronic (6) ESRD (end stage renal disease) on dialysis Status: Chronic (7) GERD (gastroesophageal reflux disease) Status: Chronic (8) HTN (hypertension) Status: Chronic (10) Ischemic cardiomyopathy Permanent Comment: echo 05/2016 - EF 40-45%, grade I diastolic dysfunction Status: Chronic (11) Morbid obesity Status: Chronic (12) Tobacco use disorder Status: Chronic Surgical Problems: (1) Hemodialysis access, AV graft Permanent Comment: [facility] Dr. Jones 08/25/12 Status: Chronic . Procedures: placement femoral hemodialysis catheter hemodialysis thrombectomy AV fistula LUE PT OT . Consultations: Nephrology Vascular Surgery . Medication Reconciliation New Medications: Insulin Aspart (Novolog) 100 Units/Ml Inj 0 SQ ACHS for 30 Days (Temporary med while at [facility]) BSG NovoLog SQ < 101 none 101-150 2 units 151-200 3 units 201-250 4 units 251-300 5 units > 300 6 units Sennosides-Docusate Sodium (Senokot S) 1 Tab Tab 2 TAB PO BID for 30 Days, TAB Continued Medications: Aspirin (Aspirin Ec) 81 Mg Tab 81 MG PO QAM Atorvastatin (Atorvastatin Calcium) 40 Mg Tab 40 MG PO QAM Calcium Acetate (Phosphate Bin (Phoslo 667 Mg) 667 Mg Cap 2001 MG PO TIDM TAKE 3 CAPSULES THREE TIMES A DAY WITH MEALS Calcium Acetate (Phosphate Bin (Phoslo 667 Mg) 667 Mg Cap 2 CAP PO UD PRN for snacks, CAP Take 2 caps PO with any snacks. Cephalexin Monohydrate (Keflex) 500 Mg Cap 500 MG PO BID, CAP course set for 10 days, started 06/03 Dicyclomine Hcl (Dicyclomine Hcl) 10 Mg Cap 10 MG PO QID PRN for Cramping Fluticasone Propionate (Fluticasone Propionate) 120 Sprays/6000 Mcg [place] 2 SPRAYS NAYAN DAILY PRN for Allergy Symptoms Insulin Glargine (Lantus Solostar) 100 Unit/Ml Inj 12 UNITS SC QPM, PEN Isosorbide Mononitrate Ext Rel (Imdur Ext Rel) 30 Mg Tabcr 30 MG PO QAM TAKE ONE 30 MG TABLET ALONG WITH ONE 60 MG TABLET TO EQUAL 90 MG DAILY DOSE Isosorbide Mononitrate Ext Rel (Imdur Ext Rel) 60 Mg Ertab 60 MG PO QAM TAKE ONE 60 MG TABLET ALONG WITH ONE 30 MG TABLET TO EQUAL 90 MG DAILY DOSE Lactobacillus (Probiotic) 1 Cap Cap 2 CAP PO BID TAKES WITH ANTIBIOTICS. Loratadine (Claritin Childrens) 5 Mg Chw 5 MG PO DAILY PRN for Allergy Symptoms Lorazepam (Lorazepam) 0.5 Mg Tab 0.5 MG PO DAILY PRN for Anxiety Metoprolol Succinate (Metoprolol Succinate ER) 50 Mg Tabcr 50 MG PO QAM Ondansetron Hcl (Zofran) 4 Mg Tab 4 MG PO Q6 PRN for Nausea, TAB Oxycodone/Acetaminophen 5MG/325MG (Oxycodone/Acetaminophen 5MG/325MG) 1 Tab Tab 1-2 TABS PO Q4H PRN for Pain Pantoprazole Sodium (Protonix) 40 Mg Tab 40 MG PO DAILY, #30 TAB Sertraline HCl (Sertraline HCl) 100 Mg Tab 100 MG PO HS Admission Information HPI (per Admitting provider): Pt is 51y/o F with hx ESRD on HD, HTN, DM II, CAD, carotid stenosis presents as direct admission from Dr Jones for hyperkalemia, HTN. Pt was in same day surgery for thrombectomy for thrombosis of L arm fistula. In same day surgery BP was noted to be 200/98. A R femoral dialysis catheter was placed instead of thrombectomy. Pt sent for dialysis and is receiving currently. She is scheduled for thrombectomy of L arm fistula tomorrow. K: 5.6, BUN: 115, CR: 16.8, glucose : 138 Pt states typically has dialysis on MWF schedule. States didn't have done tuesday or yesterday (tuesday) secondary to malfunctioning fistula. She admits to not taking her medicines for the past couple of days as she has been having nausea which she relates is secondary to not receiving dialysis. She took Zofran 4mg po this am and her ASA 81mg, probiotic, otherwise hasn't been taking her medications. States hx chronic constipation, hasn't had BM in couple of days. Pt with hx chronic low back pain, denies any changes with that. Denies fever/chills, diaphoresis, N/V/D, melena, hematochezia, NELSON, dizziness, syncope, vision changes, neck pain, CP, SOB, orthopnea, palpitations, cough, sore throat , choking, otalgia, rhinorrhea, flank pain, paresthesias, weakness, extremity weakness, extremity edema, rashes, or changes with urination (pt doesn't urinate much secondary to HD. Pt was recently admitted to hospital on 06/01/17 for R shoulder pain, elevated WBC with concern for possible sepsis, elevated troponin. Unremarkable hospital course with decreased WBC and no distinct infection source, suspected was from pain/inflammation. Troponin no increase in trend. R shoulder pain improved. . Physical Exam (per Admitting): General Appearance: + obese, + pertinent finding (chronically ill appearing) Head: normocephalic, atraumatic Eyes: normal inspection, PERRL, EOMI ENT: pharynx normal Neck: supple, no adenopathy, trachea midline Respiratory/Chest: chest non-tender, lungs clear, normal breath sounds, no respiratory distress, no accessory muscle use Cardiovascular: regular rate, rhythm, no murmur Abdomen/GI: normal bowel sounds, non tender, soft Extremities/Musculoskelatal: non-tender, + pedal edema (trace) Neurologic/Psych: alert, normal mood/affect, oriented x 3 Skin: warm/dry, + pertinent finding (ashy skin color) Hospital Course CKD V ON HEMODIALYSIS / THROMBOSED AV FISTULA PASCALEKaushik Missed 2 dialysis treatments secondary to thrombosed AV fistula. Serum potassium was 5.6 on admission, subsequently improved. Temporary femoral dialysis catheter placed for dialysis prior to surgery. Thrombectomy left upper extremity AV fistula performed by Vascular Surgery. Femoral dialysis catheter removed. Continue hemodialysis as directed by Nephrology. Vascular Surgery follow-up with Dr. Jones; petra BRISENO incision to be removed at that time. CORONARY ARTERY DISEASE Continue aspirin, metoprolol, nitrates, statin. HYPERTENSION BP 200/98 day of admission. Blood pressures improved. Continue metoprolol and nitrates. DM TYPE II Glycemic control variable. Hemoglobin A1c 7.7 on 05/30/17. FBS day of discharge 192. NovoLog per protocol during hospital stay. Resume Lantus HS. LEUKOCYTOSIS WBC 13,000 06/15. Afebrile. No signs / symptoms of infection. WBC improved- 10,560 day of discharge. Follow. VTE PROPHYLAXIS SCD's. Ambulate. DISPOSITION Poor functional status secondary to deconditioning and multiple medical problems. Anticipated transfer to [facility] for inpatient rehabilitation when medically stable. Family Medicine follow-up with Dr. Becerra. . Total time spent on discharge = 45 min. This includes examination of the patient, discharge planning, medication reconciliation, and communication with other providers. . Discharge Instructions Date of Service Jun 16, 2017. Admission Reason for Admission: CKD V, thrombosed AV fistula LUE, hyperkalemia . Discharge Discharge Diagnosis / Problem: CKD V, thrombosed AV fistula LUE, hyperkalemia Discharge Goals Goal(s): Decrease discomfort, Improve function, Increase independence, Improve disease control Activity Recommendations Activity Level: Assistance Required Therapies: Physical Therapy, Occupational Therapy . Additional Information Patient informed of condition: Yes Advance Directives: No DNR: No Level of Care: Acute Rehab Communicable Disease: Yes (History MRSA) Prognosis: Improving Oxygen at (LPM): no Puckett Catheter: No Instructions / Follow-Up Instructions / Follow-Up FAMILY MEDICINE Please arrange for follow-up appointment with Dr. Becerra at time of DC from [facility]. NEPHROLOGY [facility]. VASCULAR SURGERY Dr. Jones His office will arrange for appointment. [place] LUE incision to be removed at that time. Thank you for receiving this patient in transfer. Please call if you have any questions. Rene Bee . Current Hospital Diet Patient's current hospital diet: AHA Diet (Heart Healthy), Diabetes Type 2 Diet , Renal Diet Discharge Diet Recommended Diet: Diabetes Type 1 Diet, Renal Diet Procedures Procedures Performed: Thrombectomy Left upper arm arteriovenous fistula and revision Pending Studies Studies pending at discharge: no Physician Orders On Transfer Dressing Changes: sterile gauze dressing LUE AV fistula change daily + PRN . Vital Signs: routine . Weigh: daily . Additional Orders: hemodialysis q MWF as directed by Nephrology BSG's AC + HS . POLST Discussion: Not Applicable Laboratory Results Hemoglobin A1c Test 05/30/17 02:08 Range/Units Estimated Average Glucose 174 mg/dl Hemoglobin A1c 7.7 H 4.5-5.6 % Medical Emergencies . Who to Call and When: Medical Emergencies: If at any time you feel your situation is an emergency, please call 911 immediately. . Non-Emergent Contact Non-Emergency issues call your: Primary Care Provider, Hospital Doctor, Superintendent [employer] . . "Provider Documentation" section prepared by Rene Bee. . Core Measure Problem Core Measures: None . Additional Copies To Tereza Mas MD; Tamy Becerra D.O.; Shahbaz Prakash DO; Andrea Jones M.D.
[2017-06-16 16:32] VITALS: BP 143/78; PULSE 59; TEMP 36.8; O2SAT 97
--- NOTE | 2017-07-19 07:28 | [facility] Operative Report ---
Operative Report Operative Date Jun 08, 2017. Pre-Operative Diagnosis Thrombosed Left Upper Arm Fistula Post-Operative Diagnosis Thrombosed Left Upper Arm Fistula Procedure(s) Performed Thrombectomy Left upper arm arteriovenous fistula and revision Surgeon Dr. Jones Ribbon Winder Surgeon(s) none Estimated Blood Loss 150ml Findings Stenosis of proximal fistula Specimens none per surgeon Anesthesia MAC Complication(s) None Disposition Recovery Room / PACU Indications Patient has a left upper arm fistula. It is thrombosed and has a proximal stenosis by previous fistulogram. Thrombectomy with revision was recommended. I have discussed the risks options and benefits of the procedure with the patient. The patient understands the risks options and benefits and agrees to the procedure. Description of Procedure The patient was taken to the operating room and placed in the supine position. After the left arm was prepped and draped in a sterile manner local anesthetic was administered. A longitudinal incision was made over the proximal portion of the fistula. The fistula was then exposed just beyond the area of stenosis. The fistula was stenotic for the proximal 2-3 cm from the arterial anastomosis. This area was isolated. The dissection was carried downward and the brachial artery was identified at a higher level than the previous anastomosis. The fistula was then ligated and divided. The distal end of ligated fistula was then mobilized. It was slung down to the brachial artery. The brachial artery was clamped proximally and distally. A longitudinal arteriotomy was then made. An end to side anastomosis of the fistula to the brachial artery was done using 6-0 Prolene suture in the usual vascular fashion. Prior to completing the closure back bleeding and fore bleeding was allowed to occur. The final few sutures were placed and securely tied. Clamps were then removed. Good flow was seen and a nice thrill was felt in the fistula. After adequate hemostasis was noted the wound was closed in the usual fashion using a running 3-0 Vicryl suture for the subcutaneous layer and a running 4-0 Vicryl suture in a subcuticular fashion for the skin edges. Dermabond was used for dressing. The patient left the operating room in satisfactory condition and tolerated the procedure well. All needle and sponge counts were correct at the end of the procedure I attest to the content of the Intraoperative Record and any orders documented therein. Any exceptions are noted below.
== END 2017-06-16 17:29 | DRG 252 ==
LOC: C.ACU 11:24 → C.2T 15:34 → ENRESERV 15:54 → CANRESERV 15:54 → ENRESERV 16:16 → OBSVTOIN 06-08 10:32 → ENRESERV 06-10 13:12 → C.MS4W 06-10 14:49
PROVIDERS: ADMIT Hospitalist; ATTEND Hospitalist
PROC: 06HY33Z Insertion of Infusion Device into Lower Vein, Percutaneous Approach (ICD-10-PCS; 2017-06-07)
PROC: 5A1D70Z Performance of Urinary Filtration, Intermittent, Less than 6 Hours Per Day (ICD-10-PCS; 2017-06-07)
PROC: 03WY07Z Revision of Autologous Tissue Substitute in Upper Artery, Open Approach (ICD-10-PCS; 2017-06-08)
PROC: 03CY0ZZ Extirpation of Matter from Upper Artery, Open Approach (ICD-10-PCS; 2017-06-08)
PROC: 06PYX3Z Removal of Infusion Device from Lower Vein, External Approach (ICD-10-PCS; principal; 2017-06-09)
DX: T82.868A Thrombosis due to vascular prosthetic devices, implants and grafts, initial encounter (principal); N18.6 End stage renal disease; I12.0 Hypertensive chronic kidney disease with stage 5 chronic kidney disease or end stage renal disease; E87.1 Hypo-osmolality and hyponatremia; Z79.82 Long term (current) use of aspirin; I25.10 Atherosclerotic heart disease of native coronary artery without angina pectoris; E11.21 Type 2 diabetes mellitus with diabetic nephropathy; Z91.19 Patient's noncompliance with other medical treatment and regimen; E87.5 Hyperkalemia; J30.9 Allergic rhinitis, unspecified; I65.22 Occlusion and stenosis of left carotid artery; I25.5 Ischemic cardiomyopathy; E66.01 Morbid (severe) obesity due to excess calories; N25.0 Renal osteodystrophy; M15.9 Polyosteoarthritis, unspecified; K59.00 Constipation, unspecified; Z87.891 Personal history of nicotine dependence; Z95.5 Presence of coronary angioplasty implant and graft; Y92.019 Unspecified place in single-family (private) house as the place of occurrence of the external cause; Z68.36 Body mass index [BMI] 36.0-36.9, adult; Y83.2 Surgical operation with anastomosis, bypass or graft as the cause of abnormal reaction of the patient, or of later complication, without mention of misadventure at the time of the procedure

== ENCOUNTER 2017-08-05 11:42 | Emergency (ER) | payer OTHER ==
[~2017-08-05] VITALS: Ht 167.6 cm; Wt 107.0 kg
[~2017-08-05 11:42] MED LIST changes: -CEFAZOLIN 2000 MG/60 ML D5W 60 ML IV SCH; +NVLG SQ; +ONDA4TAB46 PO; +PANT40TA PO; +SENN8.6T7 PO; -SODIUM CHLORIDE 0.9% 1000ML 1,000 ML IV SCH
[2017-08-05 11:50] VITALS: TEMP 36.7; Ht 167.6 cm; Wt 107.0 kg
[2017-08-05] MEDS ORDERED: CEPH500C PO (12:29)
--- NOTE | 2017-08-05 12:48 | EMERGENCY ROOM VISIT NOTE ---
History First contact with patient: 11:55 Chief Complaint: WOUND INFECTION Stated Complaint: MIDDLE FINGER LEFT HAND - INFECTED Nursing Triage Summary: patient states she cut her left middle finger on cardboard on . patient c/o left finger pain and "pus" under superficial cut. History of Present Illness The patient is a 51 year old female who presents to the Emergency Room with complaints of a left fingertip infection. The patient reports that she cut her finger on cardboard on . She reports that she has poor vision because of diabetes and cataracts. She has noticed progressively worsening swelling and possible pus under the scab. The patient has not noticed any pain extending into the hand or forearm region. She denies fevers or pills. She reports a cyst in her left index finger as well that she would like to have removed. The patient has not seen her family doctor or an orthopedic surgeon for her condition. The patient is [id number], and rates her discomfort a 6 out of 10. Review of Systems 10 system review was performed and was negative except for pertinent positives and negatives as indicated in history of present illness Past Medical/Surgical History Medical Problems: (1) Allergic rhinitis (2) Arthritis (3) C. difficile colitis (4) CAD (coronary artery disease) (5) Carotid stenosis (6) Diabetic foot infection (7) DM type 2 (diabetes mellitus, type 2) (8) Dyslipidemia (9) ESRD (end stage renal disease) on dialysis (10) Fall (11) GERD (gastroesophageal reflux disease) (12) HTN (hypertension) (13) HX OF PAST NONCOMPLIANCE (14) Hyperkalemia (15) Ischemic cardiomyopathy (16) Morbid obesity (17) Osteomyelitis (18) Sepsis (19) Tobacco use disorder (20) UGIB (upper gastrointestinal bleed) (21) Weakness Surgical Problems: (1) Hemodialysis access, AV graft Family History Diabetes mellitus FATHER MOTHER Heart disease FATHER MOTHER Hypertension FATHER MOTHER Kidney disease GRANDMOTHER Social History Smoking Status: Current Every Day Smoker Alcohol Use: none Drug Use: none Marital Status: Housing Status: lives with family Occupation Status: unemployed Current/Historical Medications Scheduled Aspirin (Aspirin Ec), 81 MG PO QAM Atorvastatin (Atorvastatin Calcium), 40 MG PO QAM Calcium Acetate (Phosphate Bin (Phoslo 667 Mg), 2,001 MG PO TIDM Cephalexin Monohydrate (Keflex), 500 MG PO BID Cephalexin Monohydrate (Keflex), 500 MG PO QID Insulin Aspart (Novolog), 0 SQ ACHS Insulin Glargine (Lantus Solostar), 12 UNITS SC QPM Isosorbide Mononitrate Ext Rel (Imdur Ext Rel), 30 MG PO QAM Isosorbide Mononitrate Ext Rel (Imdur Ext Rel), 60 MG PO QAM Lactobacillus (Probiotic), 2 CAP PO BID Metoprolol Succinate (Metoprolol Succinate ER), 50 MG PO QAM Pantoprazole Sodium (Protonix), 40 MG PO DAILY Sennosides-Docusate Sodium (Senokot S), 2 TAB PO BID Sertraline HCl (Sertraline HCl), 100 MG PO HS Scheduled PRN Calcium Acetate (Phosphate Bin (Phoslo 667 Mg), 2 CAP PO UD PRN for snacks Dicyclomine Hcl (Dicyclomine Hcl), 10 MG PO QID PRN for Cramping Fluticasone Propionate (Fluticasone Propionate), 2 SPRAYS NAYAN DAILY PRN for Allergy Symptoms Loratadine (Claritin Childrens), 5 MG PO DAILY PRN for Allergy Symptoms Lorazepam (Lorazepam), 0.5 MG PO DAILY PRN for Anxiety Ondansetron Hcl (Zofran), 4 MG PO Q6 PRN for Nausea Oxycodone/Acetaminophen 5MG/325MG (Oxycodone/Acetaminophen 5MG/325MG), 1-2 TABS PO Q4H PRN for Pain Physical Exam Vital Signs Date Time Temp Pulse Resp B/P (MAP) Pulse Ox O2 Delivery O2 Flow Rate FiO2 08/05/17 11:50 36.7 87 20 167/86 94 Room Air Physical Exam CONSTITUTIONAL: Healthy and well nourished. Alert and oriented X 3 with positive affect. HEENT: Normocephalic, atraumatic. Pupils equal, round and reactive. NECK: Full active range of motion without discomfort. MUSCULOSKELETAL: Examination of the left third finger digital pad shows a laceration with generalized erythema of the digital pad. I do not feel any induration or fluctuance. There is no obvious purulent drainage or collection under the wound. There is no fusiform digital swelling, and the patient has no tenderness to palpation through the flexor or extensor tendons. Capillary refill is less than 2 seconds. INTEGUMENTARY: No rash or other significant dermatologic conditions noted. NEUROLOGIC: Left third fingertip is hyperesthetic. Medical Decision & Procedures ED Course Patient history and physical exam were performed. Nurse's notes were reviewed. Vital signs were reviewed, showing an elevated blood pressure. The patient was instructed to have her family doctor recheck her blood pressure on her next office visit. The patient was provided a prescription for Keflex, and instructed to follow-up with Dr. Pryor, hand surgeon for further reevaluation and management. The patient was advised that she would need a referral from her PCP given her insurance. She was encouraged to take ibuprofen and Tylenol as needed for pain. She may return to the emergency department over the weekend for any progressively worsening infection. The patient was happy with plan of care, voiced understanding of all discharge instructions, rating her discomfort a 3 out of 10 at the conclusion of my exam. Medical Decision Medication Reconcilliation Current Medication List: was personally reviewed by ia Blood Pressure Screening Patient's blood pressure: Elevated blood pressure Blood pressure disposition: Referred to PCP Impression Primary Impression: Cellulitis of left middle finger Departure Information Dispostion Home / Self-Care Prescriptions Cephalexin Monohydrate (Keflex) 500 Mg Cap 500 MG PO QID for 7 Days, #28 CAP Prov: Ced Dunn PA 08/05/17 Referrals Ruddy Pryor MD Forms HOME CARE DOCUMENTATION FORM, IMPORTANT VISIT INFORMATION Patient Instructions My [facility] Additional Instructions Complete all Keflex antibiotics as prescribed. Keep fingertip covered with an antibiotic ointment and dressing. Ibuprofen or Tylenol as needed for pain. Follow-up with Dr. Pryor (orthopedic hand surgeon) for further reevaluation and management. You will need a referral from your PCP. Return to the emergency department for any significantly worsening swelling, pain or developing fever.
[2017-08-05 12:55] VITALS: BP 170/97; PULSE 88; O2SAT 95
== END 2017-08-05 12:57 | disposition home or self-care (01) ==
LOC: C.EDB 11:43 → C.EDD 12:57
DX: L03.012 Cellulitis of left finger (principal); M19.90 Unspecified osteoarthritis, unspecified site; I25.10 Atherosclerotic heart disease of native coronary artery without angina pectoris; I65.29 Occlusion and stenosis of unspecified carotid artery; E11.9 Type 2 diabetes mellitus without complications; N18.6 End stage renal disease; Z99.2 Dependence on renal dialysis; K21.9 Gastro-esophageal reflux disease without esophagitis; I12.0 Hypertensive chronic kidney disease with stage 5 chronic kidney disease or end stage renal disease; E87.5 Hyperkalemia; E66.01 Morbid (severe) obesity due to excess calories; M86.9 Osteomyelitis, unspecified; Z83.3 Family history of diabetes mellitus; Z82.49 Family history of ischemic heart disease and other diseases of the circulatory system; Z84.1 Family history of disorders of kidney and ureter; F17.210 Nicotine dependence, cigarettes, uncomplicated; Z79.82 Long term (current) use of aspirin; Z79.4 Long term (current) use of insulin; Z79.899 Other long term (current) drug therapy

== ENCOUNTER 2017-08-21 08:59 | Emergency (ER) | payer OTHER ==
--- NOTE | 2017-08-21 09:34 | DIAGNOSTIC IMAGING REPORT ---
CHEST ONE VIEW PORTABLE CLINICAL HISTORY: chest pain dyspnea COMPARISON STUDY: 06/08/2017 FINDINGS: Moderate stable cardiomegaly. Diaphragms smooth. Lungs are clear. IMPRESSION: Moderate stable cardiomegaly. Otherwise negative study. The above report was generated using voice recognition software. It may contain grammatical, syntax or spelling errors. Electronically signed by: Edmundo Lam M.D. 08/21/2017 9:33 AM Dictated Date/Time: 08/21/2017 9:32 AM
--- NOTE | 2017-08-21 09:41 | DIAGNOSTIC IMAGING REPORT ---
R ELBOW MIN 3 VIEWS ROUTINE CLINICAL HISTORY: chest pain pain COMPARISON: None. DISCUSSION: The osseous structures show no acute pathology. There is no significant joint effusion. There are several bursal or synovial calcifications primarily adjacent to the proximal ulna posteriorly. No abnormal periosteal reaction. Soft tissue vascular calcification. There is no evidence for soft tissue swelling. IMPRESSION: Mild calcific bursitis and/or synovitis. No acute bony abnormality. The above report was generated using voice recognition software. It may contain grammatical, syntax or spelling errors. Electronically signed by: Edmundo Lam M.D. 08/21/2017 9:40 AM Dictated Date/Time: 08/21/2017 9:38 AM
[2017-08-21 10:08] LABS: BASO % 0.6 %; BASO ABS # 0.04 K/uL (0-0.2); EOS % 3.9 %; EOS ABS # 0.28 K/uL (0-0.5); HEMATOCRIT 40.2 % (37-47); HEMOGLOBIN 12.7 g/dL (12.0-16.0); IG# 0.01 K/uL (0.00-0.02); LYMPH % 16.1 %; LYMPH ABS # 1.14 K/uL (1.2-3.4); MEAN CELL VOLUME 92.2 fL (80-100); MEAN CORPUSCULAR HEMOGLOBIN 29.1 pg (25-34); MEAN CORPUSCULAR HGB CONC 31.6 g/dl (32-36); MEAN PLATELET VOLUME 10.3 fL (7.4-10.4); MONO % 14.8 %; MONO ABS # 1.05 K/uL (0.11-0.59); NEUT % 64.5 %; NEUT ABS # 4.58 K/uL (1.4-6.5); PLATELET COUNT 281 K/uL (130-400); RED CELL DISTRIBUTION WIDTH CV 15.7 % (11.5-14.5); RED CELL DISTRIBUTION WIDTH SD 53.5 fL (36.4-46.3)
[2017-08-21 10:38] LABS: BLOOD UREA NITROGEN 24 mg/dl (7-18); CALCIUM 9.5 mg/dl (8.5-10.1); CARBON DIOXIDE 32 mmol/L (21-32); GLUCOSE 121 mg/dl (70-99); POTASSIUM 3.6 mmol/L (3.5-5.1); SODIUM 130 mmol/L (136-145)
--- NOTE | 2017-08-21 11:17 | EMERGENCY ROOM VISIT NOTE ---
ED Visit Note First contact with patient: 09:02 I have personally seen and evaluated the patient with the physician bookkeeper assistant. I agree with the diagnostic/management decisions and have personally been involved in these decisions and agree with the diagnosis. Of note, the patient does have chronically elevated troponin. Her symptoms today do not appear to be suggestive of acute coronary syndrome and her EKG did not show any change from a previous one.
[2017-08-21 11:30] VITALS: TEMP 36.8
[2017-08-21] MEDS ORDERED: OXYC-57 PO (12:01)
--- NOTE | 2017-08-21 12:02 | EMERGENCY ROOM VISIT NOTE ---
History First contact with patient: 09:02 Chief Complaint: ELBOW PAIN/INJURY Stated Complaint: RT ELBOW History of Present Illness The patient is a 51 year old female who presents to the Emergency Room with complaints of right elbow pain. The patient reports that she was helping her niece shampoo her carpets yesterday when she injured her right elbow. She has had pain in the right elbow since then. She states that afterward, she developed pain in the center of her chest which she thinks may have been due to her anxiety. She does report she had been using some icy hot with lidocaine on the elbow and is concerned this could have caused her chest pain. She states that she performed some breathing exercises which initially helped the pain, but it then returned. She drinks very cold water which seemed to help her chest pain. She does report a history of an AK. She is a dialysis patient and receives dialysis Tuesday. However, she states that her schedule was changed due to the holiday and she received dialysis this morning. Review of Systems A complete 10 point review of systems was reviewed with the patient with pertinent positives and negatives as per history of present illness. All else were negative. Past Medical/Surgical History Medical Problems: (1) Allergic rhinitis (2) Arthritis (3) C. difficile colitis (4) CAD (coronary artery disease) (5) Carotid stenosis (6) Diabetic foot infection (7) DM type 2 (diabetes mellitus, type 2) (8) Dyslipidemia (9) ESRD (end stage renal disease) on dialysis (10) Fall (11) GERD (gastroesophageal reflux disease) (12) HTN (hypertension) (13) HX OF PAST NONCOMPLIANCE (14) Hyperkalemia (15) Ischemic cardiomyopathy (16) Morbid obesity (17) Osteomyelitis (18) Sepsis (19) Tobacco use disorder (20) UGIB (upper gastrointestinal bleed) (21) Weakness Surgical Problems: (1) Hemodialysis access, AV graft Family History Diabetes mellitus FATHER MOTHER Heart disease FATHER MOTHER Hypertension FATHER MOTHER Kidney disease GRANDMOTHER Social History Smoking Status: Unknown if Ever Smoked Alcohol Use: none Drug Use: none Marital Status: Housing Status: lives with family Occupation Status: unemployed Current/Historical Medications Scheduled Aspirin (Aspirin Ec), 81 MG PO QAM Atorvastatin (Atorvastatin Calcium), 40 MG PO QAM Calcium Acetate (Phosphate Bin (Phoslo 667 Mg), 2,001 MG PO TIDM Cephalexin Monohydrate (Keflex), 500 MG PO BID Insulin Aspart (Novolog), 0 SQ ACHS Insulin Glargine (Lantus Solostar), 12 UNITS SC QPM Isosorbide Mononitrate Ext Rel (Imdur Ext Rel), 30 MG PO QAM Isosorbide Mononitrate Ext Rel (Imdur Ext Rel), 60 MG PO QAM Lactobacillus (Probiotic), 2 CAP PO BID Metoprolol Succinate (Metoprolol Succinate ER), 50 MG PO QAM Pantoprazole Sodium (Protonix), 40 MG PO DAILY Sennosides-Docusate Sodium (Senokot S), 2 TAB PO BID Sertraline HCl (Sertraline HCl), 100 MG PO HS Scheduled PRN Calcium Acetate (Phosphate Bin (Phoslo 667 Mg), 2 CAP PO UD PRN for snacks Dicyclomine Hcl (Dicyclomine Hcl), 10 MG PO QID PRN for Cramping Fluticasone Propionate (Fluticasone Propionate), 2 SPRAYS NAYAN DAILY PRN for Allergy Symptoms Loratadine (Claritin Childrens), 5 MG PO DAILY PRN for Allergy Symptoms Lorazepam (Lorazepam), 0.5 MG PO DAILY PRN for Anxiety Ondansetron Hcl (Zofran), 4 MG PO Q6 PRN for Nausea Oxycodone/Acetaminophen 5MG/325MG (Oxycodone/Acetaminophen 5MG/325MG), 1-2 TABS PO Q4H PRN for Pain Oxycodone/Acetaminophen 5MG/325MG (Percocet 5MG/325MG), 1 TAB PO Q4H PRN for Pain Physical Exam Vital Signs Date Time Temp Pulse Resp B/P (MAP) Pulse Ox O2 Delivery O2 Flow Rate FiO2 08/21/17 12:22 85 18 122/72 97 08/21/17 11:30 36.8 83 17 125/81 96 Room Air 08/21/17 11:00 36.8 83 17 165/92 96 Room Air 08/21/17 09:26 36.8 94 17 173/82 96 Room Air 08/21/17 09:25 83 Physical Exam VITALS: Vitals are noted on the nurse's note and reviewed by myself. Vital signs stable. GENERAL: This is a 51-year-old female, in no acute distress, nondiaphoretic, well-developed well-nourished. SKIN: The skin was without rashes, erythema, edema, or bruising. EARS: External auditory canals clear, tympanic membranes pearly montoya without erythema or effusion bilaterally. EYES: Pupils equal round and reactive to light and accommodation. MOUTH: Mucous membranes moist. Tonsils are not enlarged. Pharynx without erythema or exudate. NECK: Supple without nuchal rigidity. No lymphadenopathy. HEART: Regular rate and rhythm without murmurs gallops or rubs. LUNGS: Clear to auscultation bilaterally without wheezes, rales or rhonchi. MUSCULOSKELETAL: Tenderness with light touch diffusely over the right elbow. Full range of motion of the elbow. NEURO: Patient was alert and oriented to person place and time. Normal sensation to light and sharp touch. Medical Decision & Procedures ER Provider Diagnostic Interpretation: R ELBOW MIN 3 VIEWS ROUTINE DISCUSSION: The osseous structures show no acute pathology. There is no significant joint effusion. There are several bursal or synovial calcifications primarily adjacent to the proximal ulna posteriorly. No abnormal periosteal reaction. Soft tissue vascular calcification. There is no evidence for soft tissue swelling. IMPRESSION: Mild calcific bursitis and/or synovitis. No acute bony abnormality. CHEST ONE VIEW PORTABLE FINDINGS: Moderate stable cardiomegaly. Diaphragms smooth. Lungs are clear. IMPRESSION: Moderate stable cardiomegaly. Otherwise negative study. Laboratory Results 08/21/17 09:55 Red Blood Count 4.36, Mean Corpuscular Volume 92.2, Mean Corpuscular Hemoglobin 29.1, Mean Corpuscular Hemoglobin Concent 31.6, Mean Platelet Volume 10.3, Neutrophils (%) (Auto) 64.5, Lymphocytes (%) (Auto) 16.1, Monocytes (%) (Auto) 14.8, Eosinophils (%) (Auto) 3.9, Basophils (%) (Auto) 0.6, Neutrophils # (Auto ) 4.58, Lymphocytes # (Auto) 1.14, Monocytes # (Auto) 1.05, Eosinophils # (Auto ) 0.28, Basophils # (Auto) 0.04 08/21/17 09:55 Test 08/21/17 09:55 White Blood Count 7.10 K/uL (4.8-10.8) Red Blood Count 4.36 M/uL (4.2-5.4) Hemoglobin 12.7 g/dL (12.0-16.0) Hematocrit 40.2 % (37-47) Mean Corpuscular Volume 92.2 fL (80-100) Mean Corpuscular Hemoglobin 29.1 pg (25-34) Mean Corpuscular Hemoglobin Concent 31.6 g/dl (32-36) Platelet Count 281 K/uL (130-400) Mean Platelet Volume 10.3 fL (7.4-10.4) Neutrophils (%) (Auto) 64.5 % Lymphocytes (%) (Auto) 16.1 % Monocytes (%) (Auto) 14.8 % Eosinophils (%) (Auto) 3.9 % Basophils (%) (Auto) 0.6 % Neutrophils # (Auto) 4.58 K/uL (1.4-6.5) Lymphocytes # (Auto) 1.14 K/uL (1.2-3.4) Monocytes # (Auto) 1.05 K/uL (0.11-0.59) Eosinophils # (Auto) 0.28 K/uL (0-0.5) Basophils # (Auto) 0.04 K/uL (0-0.2) RDW Standard Deviation 53.5 fL (36.4-46.3) RDW Coefficient of Variation 15.7 % (11.5-14.5) Immature Granulocyte % (Auto) 0.1 % Immature Granulocyte # (Auto) 0.01 K/uL (0.00-0.02) Anion Gap 9.0 mmol/L (3-11) Estimated GFR () 10.9 Estimated GFR (Non- 9.4 BUN/Creatinine Ratio 4.9 (10-20) Calcium Level 9.5 mg/dl (8.5-10.1) Troponin I 0.112 ng/ml (0-0.045) Medical Decision Differential diagnosis includes tendinitis, bursitis, ligamentous injury, sprain , anxiety, ACS, among others. The patient is a 51-year-old female who presents today with chief complaint of right elbow pain. The patient also reports she had some chest pain last night which she attributed to anxiety and has since resolved. EKG today is unchanged. Troponin is elevated, however patient has chronic elevation of troponin due to chronic kidney disease. Patient's symptoms were atypical and I do not suspect ACS. Chest pain is resolved. Elbow x-ray does show findings consistent with calcific bursitis/ synovitis. Patient requested something for pain and was given a very small rx for pain medication. She was advised to follow up with her primary care provider. The patient was independently evaluated by Dr. Regan, ED attending physician, who agreed with my assessment and treatment plan. Based on the patient's presentation and work up, I feel the patient is stable for outpatient treatment. The patient was educated to return to the emergency department for any worsening of their current condition or new/concerning symptoms. She will follow up with her PCP. [facility] Monitoring Program Search Results: patient reviewed within database, no issues identified Medication Reconcilliation Current Medication List: was personally reviewed by me Blood Pressure Screening Patient's blood pressure: Normal blood pressure Impression Primary Impression: Right elbow pain Departure Information Dispostion Home / Self-Care Condition GOOD Prescriptions Oxycodone/Acetaminophen 5MG/325MG (PERCOCET 5MG/325MG) Tab 1 TAB PO Q4H Y for Pain, #8 TAB For Initial Treatment Prov: Aggie Deleon ., RALPH 08/21/17 Referrals Tamy Becerra D.O. (PCP) Patient Instructions My [facility] Additional Instructions You have been prescribed Percocet to be used for pain control. Take 1-2 tablets every 4-6 hours as needed for pain. This is a narcotic medication. You cannot drive or consume alcohol while on this medicine. This medicine should only be used for pain that cannot be controlled with [id number] pain medicines. Follow-up with her primary care provider this week for a recheck or as needed. Return to the emergency with any worsening or new/concerning symptoms.
[2017-08-21 12:22] VITALS: BP 122/72; PULSE 85; O2SAT 97
[2017-09-02] MEDS ORDERED: BCTCR/30 EXT (14:23)
[2017-09-13] MEDS ORDERED: ZLF50 PO (11:39)
[2017-09-14] MEDS ORDERED: BCTRO EXT (14:05)
[2017-09-14] MEDS ORDERED: ZFRODT4HP PO (14:05)
== END 2017-08-21 12:23 | disposition home or self-care (01) ==
LOC: C.EDB 09:00 → C.EDA 12:23
DX: M25.521 Pain in right elbow (principal); M19.90 Unspecified osteoarthritis, unspecified site; R07.9 Chest pain, unspecified; I25.2 Old myocardial infarction; I25.10 Atherosclerotic heart disease of native coronary artery without angina pectoris; I65.29 Occlusion and stenosis of unspecified carotid artery; I12.0 Hypertensive chronic kidney disease with stage 5 chronic kidney disease or end stage renal disease; R79.89 Other specified abnormal findings of blood chemistry; F41.9 Anxiety disorder, unspecified; E11.22 Type 2 diabetes mellitus with diabetic chronic kidney disease; E11.621 Type 2 diabetes mellitus with foot ulcer; N18.6 End stage renal disease; Z99.2 Dependence on renal dialysis; Z79.82 Long term (current) use of aspirin; Z79.4 Long term (current) use of insulin; Z83.3 Family history of diabetes mellitus; Z82.49 Family history of ischemic heart disease and other diseases of the circulatory system; Z84.1 Family history of disorders of kidney and ureter

== ENCOUNTER 2017-09-02 19:30 | Inpatient (IN) | payer OTHER ==
[~2017-09-02] VITALS: Ht 167.6 cm; Wt 103.8 kg
[~2017-09-02 19:30] MED LIST changes: -ASPI81TA28 PO; +BCTCR/30 EXT; -CALC667C PO; -CEPH500C2 PO; -DICY10CA12 PO; -FLNIN/ NAE; -INSDGIPEN SC; -ISOS30TA35 PO; -ISOS60TA25 PO; -LACT1CAP6 PO; -LORA0.5T12 PO; -LORA5CHW10 PO; -LPT40 PO; -NVLG SQ; -ONDA4TAB46 PO; -OXYC-643 PO; -PANT40TA PO; -SENN8.6T7 PO; -TPRSR/50 PO; -ZLF/100 PO
[2017-09-02] MEDS ORDERED: INSDGIPEN SQ (20:59)
[2017-09-02] MEDS ORDERED: LORA5CHW10 PO (20:59)
--- NOTE | 2017-09-02 21:35 | EMERGENCY ROOM VISIT NOTE ---
History Report prepared by Aleksandra: Tyler Gutierrez Under the Supervision of: Dr. Gómez Valencia M.D. First contact with patient: 20:55 Chief Complaint: MENTAL HEALTH EVALUATION Stated Complaint: MHID History of Present Illness The patient is a 51 year old female who presents to the Emergency Room with a persistent need for a mental health evaluation this week. The patient states that her niece "302'd" her because she "has no transportation to dialysis". She says that she has missed 3 dialysis sessions so far, but states that she "wants to go". The patient says that she has not been feeling depressed, but she is upset that she does not have transportation. She denies any homicidal or suicidal ideations, and states that she has never tried to hurt herself. She says that she was short of breath earlier, and adds that she has a cough. Per the patient's niece, the patient has been noted to not be eating, taking care of herself, or taking her medications. The patient says that she has been on dialysis for 5 years. Source of History: patient, family, nursing staff Onset: This week Position: other (global - need for mental health evaluation) Symptom Intensity: missing dialysis Quality: other (not taking care of herself per niece) Timing: other (persistent) Associated Symptoms: + cough, + SOB Note: Patient denies suicidal or homicidal ideations. Review of Systems See HPI for pertinent positives and negatives. A total of ten systems were reviewed and were otherwise negative. Past Medical & Surgical Medical Problems: (1) Allergic rhinitis (2) Arthritis (3) C. difficile colitis (4) CAD (coronary artery disease) (5) Carotid stenosis (6) Diabetic foot infection (7) DM type 2 (diabetes mellitus, type 2) (8) Dyslipidemia (9) ESRD (end stage renal disease) on dialysis (10) Fall (11) GERD (gastroesophageal reflux disease) (12) HTN (hypertension) (13) HX OF PAST NONCOMPLIANCE (14) Hyperkalemia (15) Ischemic cardiomyopathy (16) Morbid obesity (17) Osteomyelitis (18) Sepsis (19) Tobacco use disorder (20) UGIB (upper gastrointestinal bleed) (21) Weakness Surgical Problems: (1) Hemodialysis access, AV graft Family History Diabetes mellitus FATHER MOTHER Heart disease FATHER MOTHER Hypertension FATHER MOTHER Kidney disease GRANDMOTHER Social History Smoking Status: Former Smoker Alcohol Use: none Drug Use: none Marital Status: Housing Status: lives with family Occupation Status: unemployed Current/Historical Medications Scheduled Insulin Glargine (Lantus Solostar), 12 UNITS SQ HS Loratadine (Claritin [facility]), 10 MG PO BID Mupirocin 2% (Bactroban 2%), 1 APPLN EXT TID Allergies Coded Allergies: Adhesives (Verified Allergy, Mild, RASH, SORES, 08/25/17) NO KNOWN DRUG ALLERGIES (Verified Allergy, Mild, ., 08/25/17) Latex1 -Allergic Contact Dermititis (Verified Allergy, Unknown, rash, ) Pollen Extract (Verified Allergy, Unknown, WATERY EYES, 08/25/17) Physical Exam Vital Signs Date Time Temp Pulse Resp B/P (MAP) Pulse Ox O2 Delivery O2 Flow Rate FiO2 09/02/17 23:52 95 09/02/17 23:01 88 20 175/106 93 Room Air 09/02/17 22:11 95 22 194/95 98 09/02/17 20:14 97 16 174/85 96 Room Air 09/02/17 19:54 93 09/02/17 19:45 36.6 102 22 231/118 95 Room Air Physical Exam GENERAL: Awake, alert, anxious-appearing, in no acute distress. HENT: Normocephalic, atraumatic. Dry mucous membranes. EYES: Normal conjunctiva. Sclera non-icteric. NECK: Supple. No nuchal rigidity. FROM. No JVD. RESPIRATORY: Diminished lung sounds but otherwise clear. CARDIAC: Regular rate, normal rhythm. Extremities warm and well perfused. Pulses equal. ABDOMEN: Soft, non-distended. No tenderness to palpation. No rebound or guarding. No masses. RECTAL: Deferred. MUSCULOSKELETAL: Chest examination reveals no tenderness. The back is symmetrical on inspection without obvious abnormality. There is no CVA tenderness to palpation. No joint edema. LOWER EXTREMITIES: Calves are equal size bilaterally and non-tender. No edema. No discoloration. NEURO: Normal sensorium. No sensory or motor deficits noted. SKIN: No rash or jaundice noted. PSYCH: Depressed affect, denies suicidal ideation or homicidal ideation. Medical Decision & Procedures ER Provider Diagnostic Interpretation: X-ray: Per my interpretation, radiologist review. CHEST ONE VIEW PORTABLE HISTORY: Short of breath. COMPARISON: Chest 08/21/2017. FINDINGS: The heart remains mildly enlarged. Trace left pleural effusion. Interstitial and vascular thickening has progressed suggestive of mild congestive change. There is also left upper lobe and left basilar airspace opacities. No pneumothorax. IMPRESSION: 1. Left upper lobe and left basilar airspace opacities which likely represent a pneumonia. Recommend follow-up to ensure complete resolution. 2. Mild pulmonary vascular congestion and a trace left pleural effusion. Electronically signed by: Jose Corona M.D. 09/02/2017 10:24 PM Dictated Date/Time: 09/02/2017 10:22 PM Laboratory Results 09/02/17 22:07 Red Blood Count 4.11, Mean Corpuscular Volume 91.0, Mean Corpuscular Hemoglobin 29.0, Mean Corpuscular Hemoglobin Concent 31.8, Mean Platelet Volume 10.5, Neutrophils (%) (Auto) 88.3, Lymphocytes (%) (Auto) 4.3, Monocytes (%) (Auto) 6.5, Eosinophils (%) (Auto) 0.2, Basophils (%) (Auto) 0.2, Neutrophils # (Auto) 14.44, Lymphocytes # (Auto) 0.71, Monocytes # (Auto) 1.07, Eosinophils # (Auto) 0.04, Basophils # (Auto) 0.03 09/02/17 22:07 Test 09/02/17 22:07 09/02/17 22:23 White Blood Count 16.38 K/uL (4.8-10.8) Red Blood Count 4.11 M/uL (4.2-5.4) Hemoglobin 11.9 g/dL (12.0-16.0) Hematocrit 37.4 % (37-47) Mean Corpuscular Volume 91.0 fL (80-100) Mean Corpuscular Hemoglobin 29.0 pg (25-34) Mean Corpuscular Hemoglobin Concent 31.8 g/dl (32-36) Platelet Count 397 K/uL (130-400) Mean Platelet Volume 10.5 fL (7.4-10.4) Neutrophils (%) (Auto) 88.3 % Lymphocytes (%) (Auto) 4.3 % Monocytes (%) (Auto) 6.5 % Eosinophils (%) (Auto) 0.2 % Basophils (%) (Auto) 0.2 % Neutrophils # (Auto) 14.44 K/uL (1.4-6.5) Lymphocytes # (Auto) 0.71 K/uL (1.2-3.4) Monocytes # (Auto) 1.07 K/uL (0.11-0.59) Eosinophils # (Auto) 0.04 K/uL (0-0.5) Basophils # (Auto) 0.03 K/uL (0-0.2) RDW Standard Deviation 53.1 fL (36.4-46.3) RDW Coefficient of Variation 16.1 % (11.5-14.5) Immature Granulocyte % (Auto) 0.5 % Immature Granulocyte # (Auto) 0.09 K/uL (0.00-0.02) Anion Gap 23.0 mmol/L (3-11) Est Creatinine Clear Calc Drug Dose 4.2 ml/min Estimated GFR () 2.1 Estimated GFR (Non- 1.8 BUN/Creatinine Ratio 7.6 (10-20) Calcium Level 10.7 mg/dl (8.5-10.1) Phosphorus Level 13.7 mg/dl (2.5-4.9) Magnesium Level 2.9 mg/dl (1.8-2.4) Total Bilirubin 0.7 mg/dl (0.2-1) Direct Bilirubin 0.3 mg/dl (0-0.2) Aspartate Amino Transf (AST/SGOT) 11 U/L (15-37) Alanine Aminotransferase (ALT/SGPT) 12 U/L (12-78) Alkaline Phosphatase 89 U/L (45-117) Total Protein 9.4 gm/dl (6.4-8.2) Albumin 2.6 gm/dl (3.4-5.0) Globulin 6.8 gm/dl (2.5-4.0) Albumin/Globulin Ratio 0.4 (0.9-2) Thyroid Stimulating Hormone (TSH) 1.080 uIu/ml (0.300-4.500) Ethyl Alcohol mg/dL < 3.0 mg/dl (0-3) Urine Color YELLOW Urine Appearance CLOUDY (CLEAR) Urine pH 5.5 (4.5-7.5) Urine Specific Ruffin 1.018 (1.000-1.030) Urine Protein 3+ (NEG) Urine Glucose (UA) NEG (NEG) Urine Ketones TRACE (NEG) Urine Occult Blood 1+ (NEG) Urine Nitrite NEG (NEG) Urine Bilirubin NEG (NEG) Urine Urobilinogen NEG (NEG) Urine Leukocyte Esterase TRACE (NEG) Urine WBC (Auto) 10-30 /hpf (0-5) Urine RBC (Auto) 0-4 /hpf (0-4) Urine Hyaline Casts (Auto) 0 /lpf (0-5) Urine Epithelial Cells (Auto) >30 /lpf (0-5) Urine Bacteria (Auto) NEG (NEG) Urine Pathogenic Casts /lpf (0) Urine Yeast (Auto) PRESENT (NONE PRSENT) Urine Opiates Screen NEG (NEG) Urine Methadone, Qualitative NEG (NEG) Urine Barbiturates NEG (NEG) Urine Phencyclidine (PCP) Level NEG (NEG) Ur Amphetamine/Methamphetamine NEG (NEG) MDMA (Ecstasy) Screen NEG (NEG) Urine Benzodiazepines Screen NEG (NEG) Urine Cocaine Metabolite NEG (NEG) Urine Marijuana (THC) NEG (NEG) Laboratory results reviewed by me Medications Administered Medications (Trade) Dose Ordered Sig/Bladimir Route Start Time Stop Time Status Last Admin Dose Admin Calcium Gluconate 2000 mg/Sodium Chloride 70 ml @ 240 mls/hr NOW STAT IV 09/02/17 23:21 09/02/17 23:38 DC 09/02/17 23:52 240 MLS/HR Insulin Human Regular 10 units/ Syringe 10 ml @ 20 mls/min NOW STAT IV 09/02/17 23:21 09/02/17 23:25 DC 09/02/17 23:53 20 MLS/MIN Dextrose (Dextrose 50% 50ML Syringe) 50 ml NOW STAT IV 09/02/17 23:21 09/02/17 23:25 DC 09/02/17 23:21 50 ML Sodium Polystyrene Sulfonate (Kayexalate Susp) 15 gm NOW STAT PO 09/02/17 23:21 09/02/17 23:25 DC 09/02/17 23:21 15 GM Piperacillin Sod/ Tazobactam Sod (Zosyn Iv) 4.5 gm NOW STAT IV 09/02/17 23:21 09/02/17 23:25 DC 09/02/17 23:21 4.5 GM ECG Indication: SOB/dyspnea Rate (beats per minute): 95 Rhythm: normal sinus Findings: no acute ischemic change, other (normal axis) ED Course 2128: The patient was evaluated in room A5. A complete history and physical exam was performed. 2334: Upon reexamination, the patient was resting. I discussed the test results and treatment plan with her. The patient will be evaluated for further management. 2336: I discussed the patient with Dr. Bennie Pina oracle developer - he will evaluate the patient for further treatment. Medical Decision I reviewed the patient's past medical history, medications, and the nursing notes as described above. Differential diagnosis: Etiologies such as mood disorder, infection, hypoglycemia, electrolyte abnormalities, cardiac sources, intracerebral event, toxicologic, neurologic, as well as others were entertained. The patient is a 51-year-old woman who presents emergency Department with 302 petitioned by her family concerned that she has been developing worsening depression and has been intentionally skipping her dialysis as a form of passive suicidal ideation per history of present illness. On arrival the patient is in no acute distress, afebrile stable vital signs. Patient acknowledges that she has missed dialysis for the past week however reports that it was because "she did not have a ride" however, she denies making any other proactive attempts to obtain a ride. Additionally, per report given to case management family endorses that the patient will readily lie to avoid any consequences related to her recent behavior. However upon medical evaluation we were unable to clear the patient at this time given her elevated potassium to 6.7 in the setting of her noncompliance with her dialysis. No EKG changes however patient was treated with calcium, insulin, Kayexalate as temporizing measure until dialysis can be obtained. Otherwise, WBC was elevated to 16 and chest x-ray was suspicious for left upper and basilar infiltrate consistent with pneumonia. This occurs in the setting of the patient reporting dyspnea over the past week as well. Thus will treat with broad-spectrum antibiotics given the patient is a dialysis patient. Case was discussed with Yovani Grimes hospitalist, who will admit the patient for further management. Medication Reconcilliation Current Medication List: was personally reviewed by me Blood Pressure Screening Patient's blood pressure: Elevated blood pressure Referred to hospitalist. Consults Time Called: 2329 Consulting Physician: Dr. Bennie Pina oracle developer Returned Call: 2336 I discussed the patient with Dr. Bennie Pina oracle developer - he will evaluate the patient for further treatment. Impression Primary Impression: PNA (pneumonia) Additional Impression: Hyperkalemia Critical Care I have personally spent greater than 35 minutes of critical care time in the direct management of this patient. This includes bedside care, interpretation of diagnostic studies, and testing, discussion with consultants, patient, and family members, and other required patient management activities. This 35 minutes is in excess of all separately billable procedures. Scribe Attestation The scribe's documentation has been prepared under my direction and personally reviewed by me in its entirety. I confirm that the note above accurately reflects all work, treatment, procedures, and medical decision making performed by me. Departure Information Dispostion Being Evaluated By Hospitalist Referrals Tamy Becerra D.O. (PCP) Patient Instructions My [facility] Health Problem Qualifiers
[2017-09-02 22:24] LABS: BASO % 0.2 %; BASO ABS # 0.03 K/uL (0-0.2); EOS % 0.2 %; EOS ABS # 0.04 K/uL (0-0.5); HEMATOCRIT 37.4 % (37-47); HEMOGLOBIN 11.9 g/dL (12.0-16.0); IG# 0.09 K/uL (0.00-0.02); LYMPH % 4.3 %; LYMPH ABS # 0.71 K/uL (1.2-3.4); MEAN CORPUSCULAR HGB CONC 31.8 g/dl (32-36); MEAN PLATELET VOLUME 10.5 fL (7.4-10.4); MONO % 6.5 %; MONO ABS # 1.07 K/uL (0.11-0.59); NEUT % 88.3 %; NEUT ABS # 14.44 K/uL (1.4-6.5); PLATELET COUNT 397 K/uL (130-400); RED CELL DISTRIBUTION WIDTH CV 16.1 % (11.5-14.5); RED CELL DISTRIBUTION WIDTH SD 53.1 fL (36.4-46.3); WHITE BLOOD COUNT 16.38 K/uL (4.8-10.8)
--- NOTE | 2017-09-02 22:26 | DIAGNOSTIC IMAGING REPORT ---
CHEST ONE VIEW PORTABLE HISTORY: Short of breath. COMPARISON: Chest 08/21/2017. FINDINGS: The heart remains mildly enlarged. Trace left pleural effusion. Interstitial and vascular thickening has progressed suggestive of mild congestive change. There is also left upper lobe and left basilar airspace opacities. No pneumothorax. IMPRESSION: 1. Left upper lobe and left basilar airspace opacities which likely represent a pneumonia. Recommend follow-up to ensure complete resolution. 2. Mild pulmonary vascular congestion and a trace left pleural effusion. Electronically signed by: Jose Corona M.D. 09/02/2017 10:24 PM Dictated Date/Time: 09/02/2017 10:22 PM
[2017-09-02 23:21] LABS: ALBUMIN 2.6 gm/dl (3.4-5.0); CALCIUM 10.7 mg/dl (8.5-10.1); CREATININE 19.2 mg/dl (0.60-1.20); PHOSPHORUS 13.7 mg/dl (2.5-4.9); POTASSIUM 6.7 mmol/L (3.5-5.1); TOTAL PROTEIN 9.4 gm/dl (6.4-8.2)
[2017-09-02] MEDS ORDERED: VANCOMYCIN INJ 2,000 MG in SODIUM CHLORIDE 0.9% 500ML 500 ML IV STA (23:21)
[2017-09-02] MEDS ORDERED: DEXTROSE 50% 50 ML SYR IV STA (23:21)
[2017-09-02] MEDS ORDERED: PIPERACILLIN/TAZOBACTAM 4.5 GM/100ML D5W IV STA (23:21)
[2017-09-02] MEDS ORDERED: CALCIUM GLUCONATE 10% 2,000 MG in SODIUM CHLORIDE 0.9% 50ML 50 ML IV STA (23:21)
[2017-09-02] MEDS ORDERED: INSULIN HUMAN REGULAR PER UNIT 10 UNITS in SYRINGE 9.9 ML IV STA (23:21)
[2017-09-02] MEDS ORDERED: SODIUM POLYST. SULF SUSP 15G/60ML PO STA (23:21)
[2017-09-03] VITALS (26 sets, daily range): BP systolic 122–179; BP diastolic 65–99; PULSE 80–104; TEMP 36.4–36.9; O2SAT 85–99; Ht 167.6 cm; Wt 103.8 kg
[2017-09-03] MEDS ORDERED: GLUCOSE 10 TABS/TUBE PO PRN
[2017-09-03] MEDS ORDERED: GLUCOSE 40% GEL 15 GM TUBE PO PRN
[2017-09-03] MEDS ORDERED: GLUCAGON FOR INJ 1 MG VIAL SQ PRN
[2017-09-03] MEDS ORDERED: DEXTROSE 50% 50 ML SYR IV PRN
--- NOTE | 2017-09-03 04:24 | History and Physical ---
History & Physical Date & Time of Service: Sep 03, 2017 at 04:13 Chief Complaint: Esrd On Dialysis, Hyperkalemia Primary Care Physician: Tamy Becerra D.O. History of Present Illness Source: patient This is a 51 year old M who presents to the emergency with respiratory symptoms of shortness of breath and cough secondary to missing 3 dialysis sessions vs pneumonia. Patient was brought in to the hospital by her family member. Patient reports that she usually gets dialysis M/W/F however she could not get to the past 3 dialysis sessions since she could not obtain transportation from her family members or friends. Patient reports that she depends upon others also for taking medications as she has visual impairments and cannot read the prescription bottles. Patient reports being off of her prescribed medications for a long while because other people in her life have not helped her with her medications and that she has no home health aides. When patient came to the emergency room, she was found to have hyperkalemia of 6.7. Was given Insulin, Calcium gluconate, and Kayexalate by the ED doctor to treat the hyperkalemia. CXR with Left upper lobe and left basilar airspace opacities which likely represent a pneumonia and mild pulmonary vascular congestion and a trace left pleural effusion. Zosyn and Vancomycin was ordered by ED doctor to treat for pneumonia. Hospitalist doctor sought nephrology it web development consultant Dr. Prakash to help with obtaining dialysis session. Patient boarding in the ICU reddy and completing dialysis with 3 liters removed. Past Medical/Surgical History Medical Problems: (1) Allergic rhinitis Status: Chronic (2) CAD (coronary artery disease) Permanent Comment: s/p PCI and BMS to left circumflex 03/2016 Status: Chronic (3) Carotid stenosis Permanent Comment: left ICA Status: Chronic (4) DM type 2 (diabetes mellitus, type 2) Status: Chronic (5) Dyslipidemia Status: Chronic (6) ESRD (end stage renal disease) on dialysis Status: Chronic (7) GERD (gastroesophageal reflux disease) Status: Chronic (8) HTN (hypertension) Status: Chronic (9) HX OF PAST NONCOMPLIANCE Status: Chronic (10) Ischemic cardiomyopathy Permanent Comment: echo 05/2016 - EF 40-45%, grade I diastolic dysfunction Status: Chronic (11) Morbid obesity Status: Chronic (12) Tobacco use disorder Status: Chronic Surgical Problems: (1) Hemodialysis access, AV graft Permanent Comment: [facility] Dr. Jones 08/25/12 Status: Chronic Family History Diabetes mellitus FATHER MOTHER Heart disease FATHER MOTHER Hypertension FATHER MOTHER Kidney disease GRANDMOTHER Social History Smoking Status: Former Smoker Drug Use: none Marital Status: Housing status: lives alone Occupational Status: unemployed Immunizations History of Influenza Vaccine: Yes Influenza Vaccine Date: Apr 22, 2016 History of Tetanus Vaccine?: Yes History of Pneumococcal: Yes Pneumococcal Date: Mar 14, 2013 History of Hepatitis B Vaccine: Yes Hepatitis Immunization Date: Aug 01, 2013 Multi-Drug Resistant Organisms History of MDRO: Yes Type of MDRO: MRSA Allergies Coded Allergies: Adhesives (Verified Allergy, Mild, RASH, SORES, 08/25/17) NO KNOWN DRUG ALLERGIES (Verified Allergy, Mild, ., 08/25/17) Latex1 -Allergic Contact Dermititis (Verified Allergy, Unknown, rash, ) Pollen Extract (Verified Allergy, Unknown, WATERY EYES, 08/25/17) Home Medications Scheduled Insulin Glargine (Lantus Solostar), 12 UNITS SQ HS Loratadine ([facility]), 10 MG PO BID Mupirocin 2% (Bactroban 2%), 1 APPLN EXT TID Review of Systems Constitutional: No fever Eyes: + problem reported (visual impairments) ENT: + nasal symptoms, No hearing loss, No sore throat, No trouble swallowing Respiratory: + shortness of breath Cardiovascular: + edema, No chest pain, No palpitations Abdomen: No pain, No nausea, No vomiting Musculoskeletal: + swelling, No joint pain, No muscle pain, No calf pain Genitourinary - Female: + problem reported (reports that she makes urine despite being on dialysis) Neurologic: No paralysis, No numbness/tingling Psychiatric: No substance abuse Endocrine: No fatigue Hematologic / Lymphatic: No abnormal bleeding/bruising Integumentary: + itch (left posterior back) Physical Exam Vital Signs Date Time Temp Pulse Resp B/P (MAP) Pulse Ox O2 Delivery O2 Flow Rate FiO2 09/03/17 04:00 97 132/80 09/03/17 03:45 97 128/75 09/03/17 03:30 96 124/77 09/03/17 03:15 99 135/74 09/03/17 03:00 97 142/75 09/03/17 02:45 98 139/81 09/03/17 02:30 96 145/81 09/03/17 02:15 95 154/86 09/03/17 02:00 95 151/90 09/03/17 01:45 93 163/95 09/03/17 01:30 93 167/99 09/03/17 01:08 36.4 94 169/91 (117) 09/03/17 01:00 36.7 89 22 174/94 94 Nasal Cannula 2.0 09/03/17 00:31 94 20 187/97 95 Room Air 09/02/17 23:52 95 09/02/17 23:01 88 20 175/106 93 Room Air 09/02/17 22:11 95 22 194/95 98 09/02/17 20:14 97 16 174/85 96 Room Air 09/02/17 19:54 93 09/02/17 19:45 36.6 102 22 231/118 95 Room Air General Appearance: no apparent distress, + obese Head: normocephalic, atraumatic Eyes: EOMI, + pertinent finding (redness of conjuctiva in both eyes) ENT: normal ENT inspection, hearing grossly normal, pharynx normal Neck: supple, thyroid normal, trachea midline Respiratory/Chest: chest non-tender, + crackles Cardiovascular: regular rate, rhythm, + pertinent finding (bilateral lower extremity edema) Abdomen/GI: normal bowel sounds, non tender, soft, no organomegaly, no pulsatile mass Back: normal inspection, no CVA tenderness, no muscle spasm, normal range of motion Extremities/Musculoskelatal: + pertinent finding (bilateral lower extremity edema) Neurologic/Psych: no motor/sensory deficits, alert, oriented x 3 Skin: normal color, warm/dry, no rash Diagnostics Laboratory Results Results Past 24 Hours Test 09/02/17 22:07 09/02/17 22:23 09/03/17 00:35 Range/Units White Blood Count 16.38 4.8-10.8 K/uL Red Blood Count 4.11 4.2-5.4 M/uL Hemoglobin 11.9 12.0-16.0 g/dL Hematocrit 37.4 37-47 % Mean Corpuscular Volume 91.0 80-100 fL Mean Corpuscular Hemoglobin 29.0 25-34 pg Mean Corpuscular Hemoglobin Concent 31.8 32-36 g/dl Platelet Count 397 130-400 K/uL Mean Platelet Volume 10.5 7.4-10.4 fL Neutrophils (%) (Auto) 88.3 % Lymphocytes (%) (Auto) 4.3 % Monocytes (%) (Auto) 6.5 % Eosinophils (%) (Auto) 0.2 % Basophils (%) (Auto) 0.2 % Neutrophils # (Auto) 14.44 1.4-6.5 K/uL Lymphocytes # (Auto) 0.71 1.2-3.4 K/uL Monocytes # (Auto) 1.07 0.11-0.59 K/uL Eosinophils # (Auto) 0.04 0-0.5 K/uL Basophils # (Auto) 0.03 0-0.2 K/uL RDW Standard Deviation 53.1 36.4-46.3 fL RDW Coefficient of Variation 16.1 11.5-14.5 % Immature Granulocyte % (Auto) 0.5 % Immature Granulocyte # (Auto) 0.09 0.00-0.02 K/uL Sodium Level 128 136-145 mmol/L Potassium Level 6.7 3.5-5.1 mmol/L Chloride Level 87 98-107 mmol/L Carbon Dioxide Level 19 21-32 mmol/L Anion Gap 23.0 3-11 mmol/L Blood Urea Nitrogen 147 7-18 mg/dl Creatinine 19.20 0.60-1.20 mg/dl Est Creatinine Clear Calc Drug Dose 4.2 ml/min Estimated GFR () 2.1 Estimated GFR (Non- 1.8 BUN/Creatinine Ratio 7.6 10-20 Random Glucose 126 70-99 mg/dl Calcium Level 10.7 8.5-10.1 mg/dl Phosphorus Level 13.7 2.5-4.9 mg/dl Magnesium Level 2.9 1.8-2.4 mg/dl Total Bilirubin 0.7 0.2-1 mg/dl Direct Bilirubin 0.3 0-0.2 mg/dl Aspartate Amino Transf (AST/SGOT) 11 15-37 U/L Alanine Aminotransferase (ALT/SGPT) 12 12-78 U/L Alkaline Phosphatase 89 45-117 U/L Total Protein 9.4 6.4-8.2 gm/dl Albumin 2.6 3.4-5.0 gm/dl Globulin 6.8 2.5-4.0 gm/dl Albumin/Globulin Ratio 0.4 0.9-2 Thyroid Stimulating Hormone (TSH) 1.080 0.300-4.500 uIu/ml Ethyl Alcohol mg/dL < 3.0 0-3 mg/dl Urine Color YELLOW Urine Appearance CLOUDY CLEAR Urine pH 5.5 4.5-7.5 Urine Specific Allen 1.018 1.000-1.030 Urine Protein 3+ NEG Urine Glucose (UA) NEG NEG Urine Ketones TRACE NEG Urine Occult Blood 1+ NEG Urine Nitrite NEG NEG Urine Bilirubin NEG NEG Urine Urobilinogen NEG NEG Urine Leukocyte Esterase TRACE NEG Urine WBC (Auto) 10-30 0-5 /hpf Urine RBC (Auto) 0-4 0-4 /hpf Urine Hyaline Casts (Auto) 0 0-5 /lpf Urine Epithelial Cells (Auto) >30 0-5 /lpf Urine Bacteria (Auto) NEG NEG Urine Pathogenic Casts 0 /lpf Urine Yeast (Auto) PRESENT NONE PRSENT Urine Opiates Screen NEG NEG Urine Methadone, Qualitative NEG NEG Urine Barbiturates NEG NEG Urine Phencyclidine (PCP) Level NEG NEG Ur Amphetamine/Methamphetamine NEG NEG MDMA (Ecstasy) Screen NEG NEG Urine Benzodiazepines Screen NEG NEG Urine Cocaine Metabolite NEG NEG Urine Marijuana (THC) NEG NEG Microbiology Results 09/03/17 MRSA DNA Surveillance Screen - Final, Complete Specimen Negative for MRSA by DNA Probe Impression Assessment and Plan This is a 51 year old M who presents to the emergency with respiratory symptoms or shortness of breath and cough secondary to missing 3 dialysis sessions vs pneumonia. Patient was brought in to the hospital by her family member. Patient reports that she usually gets dialysis M/W/F however she could not get to the past 3 dialysis sessions since she could not obtain transportation from her family members or friends. Patient reports that she depends upon others also for taking medications as she has visual impairments and cannot read the prescription bottles. Patient reports being off of her prescribed medications for a long while because other people in her life have not helped her with her medications and that she has no home health aides. When patient came to the emergency room, she was found to have hyperkalemia of 6.7. Was given Insulin, Calcium gluconate, and Kayexalate by the ED doctor to treat the hyperkalemia. CXR with Left upper lobe and left basilar airspace opacities which likely represent a pneumonia and mild pulmonary vascular congestion and a trace left pleural effusion. Zosyn and Vancomycin was ordered by ED doctor to treat for pneumonia. Hospitalist doctor sought nephrology it web development consultant Dr. Prakash to help with obtaining dialysis session. Patient boarding in the ICU reddy and completing dialysis with 3 liters removed -Hypertension resolving with dialysis -repeat labs pending to further re-assess hyperkalemia after dialysis session -further nephrology recommendations appreciated -continue dialysis 3 times per week -continue broad spectrum antibiotics as started by ED physician, if repeat imaging shows resolution of Chest X ray infiltrates on admission after dialysis session and patient is afebrile then patient may not have pneumonia, blood cultures and procalcitonin levels to be sent -test for influenza -injected conjunctiva of the eyes: ordered eye drops -have ordered previously prescribed medications for oral calcium acetate (as phosphate binder in a patient on dialysis) -have ordered previously prescribed medications for blood pressure control - Lopressor 25 mg BID and nifedipine 60 mg daily -patient has been off diabetes medications at home including insulin, outpatient records showed Lantus 12 units qhs, will give sliding scale insulin and Lantus in the hospital. However, it is uncertain as to how patient will be able to continue diabetes medication at home if she is visually impaired and if no one assists her -will need case management involvement in discharge planning -Diabetes diet with fluid restriction for now -DVT ppx with SCD Full Code Level of Care Telemetry Advanced Directives Existing Living Will: No Existing Power of Haul Cane Brakeman: No Resuscitation Status FULL RESUSCITATION VTE Prophylaxis VTE Risk Assessment Done? Y/N: Yes Risk Level: Moderate
[2017-09-03] MEDS ORDERED: PIPERACILL/TAZOBAC IV 2.25 GM in DEXTROSE 5% 100ML 100 ML IV SCH (05:00)
[2017-09-03] MEDS ORDERED: VANCOMYCIN CONSULT ACTIVE PRN (05:00)
[2017-09-03] MEDS ORDERED: PIPERACILL/TAZOBAC CONSULT ACTIVE PRN (06:30)
[2017-09-03] MEDS ORDERED: INSULIN ASPART 100 UNITS/ML 3 ML PEN SC SCH (06:45)
[2017-09-03] MEDS ORDERED: CALCIUM ACETATE 667MG GELCAP PO SCH (07:15)
[2017-09-03 07:39] LABS: INFLUENZA B ANTIGEN Neg for Influ B (NEG)
[2017-09-03] MEDS ORDERED: COUGH DROP (SUGAR FREE) LOZ 24 LOZ/1 BOX ONE (07:52)
[2017-09-03] MEDS ORDERED: PIPERACILL/TAZOBAC IV 4.5 GM in DEXTROSE 5% 100ML IV SCH (08:00)
[2017-09-03] MEDS: METOPROLOL TARTRATE 50 MG TAB PO SCH ×2 (08:55→20:45)
[2017-09-03] MEDS: NAPHAZOLIN/PHENIRAMIN OPH SOLN 75 DROPS/5 ML BTL OP SCH (08:55)
[2017-09-03] MEDS: ISOSORBIDE MONONITRATE 60 MG TABCR PO SCH (08:56)
[2017-09-03] MEDS: INSULIN ASPART 100 UNITS/ML 3 ML PEN SC SCH ×4 (08:57→20:44)
--- NOTE | 2017-09-03 09:18 | NEPHROLOGY CONSULTATION ---
DATE OF CONSULTATION: 09/03/2017 ATTENDING OF RECORD: Dr. Spring Torres. REASON FOR CONSULTATION: End-stage renal disease. HISTORY OF PRESENT ILLNESS: This is a 51-year-old female who has been noncompliant with dialysis, normally dialyzes at the [facility], missed the past week secondary to transportation issues as well as social support issues. The patient presented with abnormal electrolytes with a potassium level of 6.7, sodium level of 128, BUN of 147 and creatinine of 19.2 as well as a calcium level of 10.7, and a phosphorus level of 13.7. The patient underwent emergent dialysis. I removed 3 liters on dialysis. The patient is comfortable at this time with no specific complaints. PAST MEDICAL HISTORY: Coronary artery disease with history of PCI to the left circumflex, carotid stenosis, type 2 diabetes, hyperlipidemia, end-stage renal disease, hypertension. PAST SURGICAL HISTORY: Multiple dialysis accesses., stent to heart, cea FAMILY HISTORY: Significant for diabetes and hypertension. SOCIAL HISTORY: Former smoker. No alcohol, no drugs. Lives alone. REVIEW OF SYSTEMS: No fevers or chills. Positive fatigue. Positive shortness of breath. Positive edema. No nausea or vomiting. No chest pain. No hematuria. No rash or itching. All other review of systems otherwise negative. CURRENT MEDICATIONS: Lantus 12 units subQ at bedtime, Imdur 60 mg a day, Lopressor 50 mg p.o. b.i.d., PhosLo 1 p.o. t.i.d. with meals. PHYSICAL EXAMINATION: VITAL SIGNS: Temperature 36.9, pulse 98, blood pressure 140/85, pulse ox 99%. GENERAL: Awake, alert, oriented x3, obese. EYES: No scleral icterus. ENT: Moist mucous membranes. NECK: Supple. PULMONARY: Clear to auscultation. CARDIAC: Mildly tachy. ABDOMEN: Bowel sounds positive, soft, nontender. EXTREMITIES: +1 edema. NEUROLOGICALLY: Nonfocal. DERMATOLOGIC: No rash or ulcers noted. LABORATORIES: Pending for this morning. Other labs were reviewed. ASSESSMENT AND PLAN: 1. End-stage renal disease. The patient's electrolytes were grossly abnormal yesterday after missing 1 week of dialysis. The patient underwent a 3-hour emergent dialysis treatment on a 2K bath to remove 3 liters UF. We would like to plan on dialysis again tomorrow, Tuesday and Tuesday to optimize electrolytes and volume status as best as possible and tentatively plan for discharge at the end of Tuesday. However, we will discuss further with the primary hospitalists to see if they are also in agreement. 2. Anemia of renal failure. Hemoglobin level is in the 11, so no Procrit needed at this time. 3. Renal osteodystrophy. Phosphorus levels are grossly elevated at 13.9 with a calcium level that is also elevated. Hopefully with daily dialysis, phosphorus levels start to improve. The patient is on PhosLo and we will switch to Renagel secondary to the elevated calcium levels. I appreciate consultation. BALTAZAR
[2017-09-03] MEDS: SEVELAMER HYDROCH 800 MG TAB PO SCH ×2 (11:42→16:39)
--- NOTE | 2017-09-03 14:43 | Pharmacy Progress Note ---
Pharmacy Abx Dose Short Note Date of Service Sep 03, 2017. Assessment & Plan Pt is receiving Vanco/Zosyn for pulmonary source. Spoke with nephrology. HD is planned for 09/04, 09/05, 09/06. IV access has not been achieved ergo no antibiotics have been given during this hospital admission. Vanco 2000mg x1 (19mg/kg) planned for 1800 09/03/17 Random lvl ordered for 09/04/17 Goal trough: 15-20mcg/mL Zosyn dosed appropriately pursuant to renal fxn and pt clinical status Pharmacy will continue to follow and will adjust dose/frequency as necessary. Thank you.
[2017-09-03] MEDS ORDERED: VANCOMYCIN INJ 2,000 MG in SODIUM CHLORIDE 0.9% 500ML 500 ML IV SCH (18:00)
[2017-09-03] MEDS: INSULIN GLARGINE SOLOSTAR 100 UNITS/ML 3 ML PEN SC SCH (20:44)
[2017-09-04] VITALS (21 sets, daily range): BP systolic 94–154; BP diastolic 47–70; PULSE 66–87; TEMP 36.5–37; O2SAT 90–95
[2017-09-04] MEDS ORDERED: ACETAMINOPHEN 325 MG TAB PO STA (02:31)
[2017-09-04] MEDS ORDERED: ACETAMINOPHEN 325 MG TAB PO PRN (02:45)
[2017-09-04] MEDS ORDERED: VANCOMYCIN INJ 0 MG in SODIUM CHLORIDE 0.9% 500ML 500 ML IV SCH (05:00)
[2017-09-04] MEDS: INSULIN ASPART 100 UNITS/ML 3 ML PEN SC SCH ×4 (06:45→20:44)
[2017-09-04] MEDS: SEVELAMER HYDROCH 800 MG TAB PO SCH ×3 (09:04→17:54)
[2017-09-04] MEDS: NAPHAZOLIN/PHENIRAMIN OPH SOLN 75 DROPS/5 ML BTL OP SCH (09:04)
--- NOTE | 2017-09-04 09:50 | DIAGNOSTIC IMAGING REPORT ---
CHEST 2 VIEWS ROUTINE HISTORY: shortness of breath Findings: The heart remains mildly enlarged. Trace left pleural effusion. Interstitial and vascular thickening has progressed suggestive of mild congestive change. There is also left upper lobe and left basilar airspace opacities. No pneumothorax. IMPRESSION: 1. Left upper lobe and left basilar airspace opacities which likely represent a pneumonia. Recommend follow-up to ensure complete resolution. 2. Mild pulmonary vascular congestion and a trace left pleural effusion. No change from CHEST ONE VIEW PORTABLE with report dated 09/02/2017 10:24 PM. Electronically signed by: Jose Corona M.D. 09/04/2017 9:49 AM Dictated Date/Time: 09/04/2017 9:48 AM
[2017-09-04 09:59] LABS: BASO % 0.2 %; BASO ABS # 0.03 K/uL (0-0.2); EOS % 1.3 %; HEMATOCRIT 32.6 % (37-47); HEMOGLOBIN 10.4 g/dL (12.0-16.0); IG# 0.06 K/uL (0.00-0.02); LYMPH % 7.7 %; LYMPH ABS # 1.14 K/uL (1.2-3.4); MEAN CELL VOLUME 90.6 fL (80-100); MEAN CORPUSCULAR HEMOGLOBIN 28.9 pg (25-34); MEAN CORPUSCULAR HGB CONC 31.9 g/dl (32-36); MEAN PLATELET VOLUME 10.7 fL (7.4-10.4); MONO % 9.9 %; MONO ABS # 1.46 K/uL (0.11-0.59); NEUT % 80.5 %; NEUT ABS # 11.93 K/uL (1.4-6.5); PLATELET COUNT 354 K/uL (130-400); RED CELL DISTRIBUTION WIDTH CV 15.8 % (11.5-14.5); RED CELL DISTRIBUTION WIDTH SD 52.1 fL (36.4-46.3); WHITE BLOOD COUNT 14.82 K/uL (4.8-10.8)
[2017-09-04 10:45] LABS: ALBUMIN 2.1 gm/dl (3.4-5.0); CALCIUM 9.7 mg/dl (8.5-10.1); CREATININE 14.4 mg/dl (0.60-1.20); POTASSIUM 4.3 mmol/L (3.5-5.1); TOTAL PROTEIN 7.2 gm/dl (6.4-8.2)
--- NOTE | 2017-09-04 10:52 | Dialysis Progress Note ---
Nephrology Dialysis Note Date of Service: Sep 04, 2017. Subjective 51 yo female seen on dialysis. pt tired and had difficulty sleeping last night with a dry cough. no cramping on dialysis. Objective Date Time Temp Pulse Resp B/P (MAP) Pulse Ox O2 Delivery O2 Flow Rate FiO2 09/04/17 10:30 75 98/51 09/04/17 10:15 75 99/47 09/04/17 10:00 80 110/57 09/04/17 09:40 83 123/67 09/04/17 09:30 36.9 84 117/55 (75) 09/04/17 08:00 Nasal Cannula 2.0 09/04/17 08:00 36.9 87 19 154/70 (98) 90 Room Air 09/04/17 04:00 93 Nasal Cannula 2.0 09/04/17 04:00 37.0 83 20 127/64 (85) 93 Nasal Cannula 2.0 09/03/17 23:59 36.9 83 17 129/65 (86) 91 Nasal Cannula 2.0 09/03/17 23:59 Nasal Cannula 2.0 09/03/17 20:00 Nasal Cannula 2.0 09/03/17 19:08 36.8 85 18 133/67 (89) 92 Humidified Oxygen 09/03/17 16:34 94 Nasal Cannula 2.0 09/03/17 16:00 Nasal Cannula 2.0 09/03/17 15:08 36.8 80 18 131/71 (91) 93 Nasal Cannula 2.0 09/03/17 12:00 Nasal Cannula 2.0 09/03/17 11:15 36.9 87 18 122/69 (86) 91 2.0 Physical Exam: General-aaox3, obese Eyes-no scleral icterus ENT-mmm Neck-supple Lungs-cta Heart-rrr Abdomen-bs+ s/nt/nd Extremities-no edema Neuro-nonfocal Current Inpatient Medications Medications (Trade) Dose Ordered Sig/Bladimir Route Start Time Stop Time Status Last Admin Dose Admin Insulin Aspart (novoLOG ASPART) SLIDING SCALE G... ACHS SC 09/03/17 06:45 10/03/17 06:59 Glucose (Glucose 40% Gel) 15-30 GRAMS 15 GRAMS... UD PRN PO 09/03/17 00:00 10/03/17 00:00 Glucose (Glucose Chew Tab) 4-8 Tablets 4 Tabl... UD PRN PO 09/03/17 00:00 10/03/17 00:00 Dextrose (Dextrose 50% 50ML Syringe) 25-50ML OF 50% DW IV FOR... UD PRN IV 09/03/17 00:00 10/03/17 00:00 Glucagon (Glucagon Inj) 1 mg UD PRN SQ 09/03/17 00:00 10/03/17 00:00 Naphazoline HCl/ Pheniramine Maleate (Visine-A Oph Soln) 1 drops DAILY OP 09/03/17 09:00 10/03/17 08:59 09/04/17 09:04 1 DROPS Isosorbide Mononitrate (Imdur Ext Rel Tab) 60 mg QAM PO 09/03/17 09:00 10/03/17 08:59 09/03/17 08:56 60 MG Metoprolol Tartrate (Lopressor Tab) 50 mg BID PO 09/03/17 09:00 10/03/17 08:59 09/03/17 20:45 50 MG Insulin Glargine (Lantus Solostar Pen) 12 units HS SC 09/03/17 21:00 10/03/17 20:59 09/03/17 20:44 12 UNITS Sevelamer HCl (Renagel Tab) 2,400 mg TIDM PO 09/03/17 11:30 10/03/17 11:29 09/04/17 09:04 2,400 MG Acetaminophen (Tylenol Tab) 325 mg Q4H PRN PO 09/04/17 02:45 10/04/17 02:44 Last 24 Hours Test 09/03/17 11:08 09/03/17 16:00 09/03/17 19:05 09/03/17 20:37 Bedside Glucose 128 mg/dl 171 mg/dl 174 mg/dl 165 mg/dl Test 09/04/17 06:11 09/04/17 08:10 09/04/17 09:49 Bedside Glucose 125 mg/dl 136 mg/dl White Blood Count 14.82 K/uL Red Blood Count 3.60 M/uL Hemoglobin 10.4 g/dL Hematocrit 32.6 % Mean Corpuscular Volume 90.6 fL Mean Corpuscular Hemoglobin 28.9 pg Mean Corpuscular Hemoglobin Concent 31.9 g/dl Platelet Count 354 K/uL Mean Platelet Volume 10.7 fL Neutrophils (%) (Auto) 80.5 % Lymphocytes (%) (Auto) 7.7 % Monocytes (%) (Auto) 9.9 % Eosinophils (%) (Auto) 1.3 % Basophils (%) (Auto) 0.2 % Neutrophils # (Auto) 11.93 K/uL Lymphocytes # (Auto) 1.14 K/uL Monocytes # (Auto) 1.46 K/uL Eosinophils # (Auto) 0.20 K/uL Basophils # (Auto) 0.03 K/uL RDW Standard Deviation 52.1 fL RDW Coefficient of Variation 15.8 % Immature Granulocyte % (Auto) 0.4 % Immature Granulocyte # (Auto) 0.06 K/uL Sodium Level 132 mmol/L Potassium Level 4.3 mmol/L Chloride Level 92 mmol/L Carbon Dioxide Level 23 mmol/L Anion Gap 17.0 mmol/L Blood Urea Nitrogen 105 mg/dl Creatinine 14.40 mg/dl Est Creatinine Clear Calc Drug Dose 5.8 ml/min Estimated GFR () 3.0 Estimated GFR (Non- 2.6 BUN/Creatinine Ratio 7.3 Random Glucose 178 mg/dl Calcium Level 9.7 mg/dl Total Bilirubin 0.4 mg/dl Aspartate Amino Transf (AST/SGOT) 9 U/L Alanine Aminotransferase (ALT/SGPT) 9 U/L Alkaline Phosphatase 75 U/L Total Protein 7.2 gm/dl Albumin 2.1 gm/dl Globulin 5.1 gm/dl Albumin/Globulin Ratio 0.4 Assessment & Plan ESRD-seen on dialysis. pt missed a week of dialysis prior to coming in. had hyperkalemia which has improved. calcium levels also improving as well. plan on dialysis again tomorrow. anemia of renal failure-hg levels are in the 10 to 11 range. holding on procrit at this time OSIRIS-switched phoslo to renvela secondary to the high calcium levels. trying to control phos levels better with binders and daily dialysis.
[2017-09-04] MEDS: ISOSORBIDE MONONITRATE 60 MG TABCR PO SCH (14:32)
[2017-09-04] MEDS: METOPROLOL TARTRATE 50 MG TAB PO SCH ×2 (14:32→20:39)
--- NOTE | 2017-09-04 19:06 | Psychiatric Consultation ---
Consultation Date of Consultation Sep 04, 2017. Identifying Data 51 yo female from [place], admited 09/03/17 for complications of ESRD and hyperkalemia. Consult is by Dr. Torres for ?SI and 302 warrant on chart by niece for reported inability to care for self. Chief Complaint "I'm wiped out honey". History of Present Illness Patient had dialysis this am. Niece is actually the daughter of her who 3 years ago per patient. Per petition she hasn't been eating well or taking medications. She has been on dialysis for 5 years but relies on van then others for transportation. She reportedly has been wetting herself and not changing. She agrees that she doesn't sleep well and not finding much purpose in life since her as wishes life would be different at this point. PHQ-9=6 and she denies suicidal ideation. She apologized several times for being so tired and "gassy" and asked to end the interview. She was last seen by consult service by Dr. Mi in 2012. At that time she was admitted with respiratory failure and reported a reaction (?paranoia) following 1 dose of Celexa. Zoloft was recommended at that time for MDD and she states it was helpful for "awhile". It's not clear when/why discontinued but she voiced willingness to take. She was cooperative with dialysis and states that she would go regularly if case management could arrange a van. She states she would also be receptive to home health as helpful previously. Past Psychiatric History Current OP Treatment: no current treatment Prior Psych Hospitalizations: none Access to a Gun: No Suicide Attempts: No Past Medication Trials Celexa, Zoloft Past Medical/Surgical History (1) Hyperkalemia (2) PNA (pneumonia) (3) Arthritis (4) HX OF PAST NONCOMPLIANCE (5) Ischemic cardiomyopathy (6) Carotid stenosis (7) ESRD (end stage renal disease) on dialysis (8) DM type 2 (diabetes mellitus, type 2) (9) GERD (gastroesophageal reflux disease) (10) Allergic rhinitis (11) Dyslipidemia (12) HTN (hypertension) Allergies Allergies: Coded Allergies: Adhesives (Verified Allergy, Mild, RASH, SORES, 08/25/17) NO KNOWN DRUG ALLERGIES (Verified Allergy, Mild, ., 08/25/17) Latex1 -Allergic Contact Dermititis (Verified Allergy, Unknown, rash, ) Pollen Extract (Verified Allergy, Unknown, WATERY EYES, 08/25/17) Home Medications Scheduled Insulin Glargine (Lantus Solostar), 12 UNITS SQ HS Loratadine ([facility]), 10 MG PO BID Mupirocin 2% (Bactroban 2%), 1 APPLN EXT TID Family History Diabetes mellitus FATHER MOTHER Heart disease FATHER MOTHER Hypertension FATHER MOTHER Kidney disease GRANDMOTHER Psychiatric History: Yes (mother depressed) Alcohol Use Alcohol Use In Past 12 Months: No Smoking Use Smoking Status: Former Smoker Substance History denied Personal History Education: graduated from high school Work History: disability Relationship History: Children: daughter (conflictual) Spiritual Affiliation: [place] Legal History: none Psychological Trauma History: Denies Hx Traumatic Event Review of Systems fatigue, denied discomfort, cough with productive Examination Vital Signs Vital Signs Past 12 Hours Date Time Temp Pulse Resp B/P (MAP) Pulse Ox O2 Delivery O2 Flow Rate FiO2 09/04/17 16:00 Nasal Cannula 09/04/17 15:54 36.5 72 18 108/63 (78) 95 Room Air 09/04/17 15:14 36.7 80 20 94 2.0 09/04/17 14:30 132/60 (84) 09/04/17 12:45 36.7 80 137/70 (92) 09/04/17 12:30 76 134/64 09/04/17 12:15 71 113/59 09/04/17 12:00 Nasal Cannula 2.0 09/04/17 12:00 70 116/59 09/04/17 11:45 72 101/49 09/04/17 11:45 36.9 71 20 103/49 (67) 94 Nasal Cannula 2.0 09/04/17 11:30 73 103/49 09/04/17 11:15 71 94/51 09/04/17 11:00 73 97/49 09/04/17 10:45 75 105/54 09/04/17 10:30 75 98/51 09/04/17 10:15 75 99/47 09/04/17 10:00 80 110/57 09/04/17 09:40 83 123/67 09/04/17 09:30 36.9 84 117/55 (75) 09/04/17 08:00 Nasal Cannula 2.0 09/04/17 08:00 36.9 87 19 154/70 (98) 90 Room Air Laboratory Results Last 24 Hours Test 09/03/17 19:05 09/03/17 20:37 09/04/17 06:11 09/04/17 08:10 Bedside Glucose 174 mg/dl 165 mg/dl 125 mg/dl 136 mg/dl Test 09/04/17 09:49 09/04/17 11:43 09/04/17 16:29 White Blood Count 14.82 K/uL Red Blood Count 3.60 M/uL Hemoglobin 10.4 g/dL Hematocrit 32.6 % Mean Corpuscular Volume 90.6 fL Mean Corpuscular Hemoglobin 28.9 pg Mean Corpuscular Hemoglobin Concent 31.9 g/dl Platelet Count 354 K/uL Mean Platelet Volume 10.7 fL Neutrophils (%) (Auto) 80.5 % Lymphocytes (%) (Auto) 7.7 % Monocytes (%) (Auto) 9.9 % Eosinophils (%) (Auto) 1.3 % Basophils (%) (Auto) 0.2 % Neutrophils # (Auto) 11.93 K/uL Lymphocytes # (Auto) 1.14 K/uL Monocytes # (Auto) 1.46 K/uL Eosinophils # (Auto) 0.20 K/uL Basophils # (Auto) 0.03 K/uL RDW Standard Deviation 52.1 fL RDW Coefficient of Variation 15.8 % Immature Granulocyte % (Auto) 0.4 % Immature Granulocyte # (Auto) 0.06 K/uL Sodium Level 132 mmol/L Potassium Level 4.3 mmol/L Chloride Level 92 mmol/L Carbon Dioxide Level 23 mmol/L Anion Gap 17.0 mmol/L Blood Urea Nitrogen 105 mg/dl Creatinine 14.40 mg/dl Est Creatinine Clear Calc Drug Dose 5.8 ml/min Estimated GFR () 3.0 Estimated GFR (Non- 2.6 BUN/Creatinine Ratio 7.3 Random Glucose 178 mg/dl Calcium Level 9.7 mg/dl Total Bilirubin 0.4 mg/dl Aspartate Amino Transf (AST/SGOT) 9 U/L Alanine Aminotransferase (ALT/SGPT) 9 U/L Alkaline Phosphatase 75 U/L Total Protein 7.2 gm/dl Albumin 2.1 gm/dl Globulin 5.1 gm/dl Albumin/Globulin Ratio 0.4 Procalcitonin 8.67 ng/ml Hepatitis B Surface Antigen NEG Hepatitis B Surface Antibody POS Bedside Glucose 149 mg/dl 222 mg/dl Mental Examination During interview pt is: cooperative Appearance: disheveled Eye contact is: poor Motor behavior is: no abnormal motor movements Speech: other (slow) Affect: blunted Mood is: depressed Thought process: clear, coherent Thought content: reality based without delusions Suicidal thought are: denied Homicidal thoughts are: denied Hallucinations: denies auditory, denies visual Cognition: language grossly intact Intelligence estimated to be: average Insight: limited Judgement: limited Impression / Recommendations Impression 51 yo female with ESRD, compliance issues, poor self care at home. She has a history of depression that previously had some response to Zoloft. She is currently on an active 302 warrant but is not medically cleared and has been cooperative with necessary care. She states she is agreeable to continue dialysis with transportation and home health. Recommendations risks/benefits/alternatives reviewed re: retrial of Zoloft. She agreed to 25 mg starting in am, may need titrated/adjusted per prescriber around dialysis, hasn't used prn Ativan in past around dialysis with benefit declines therapy referral patient is very unlikely to meet criteria for inpatient mental health commitment when medically cleared as she is denying SI and is not psychotic and cooperative with necessary medical care. Seems like main intervention needs to be home health/transportation via case management.
--- NOTE | 2017-09-04 20:37 | Progress Note ---
Internal Med Progress Note Date of Service: Sep 04, 2017. Provider Documentation: SUBJECTIVE: continues to cough mention of having productive cough with green sputum feels feverish had dialysis having painful bruise on rt foot -mentions her shoe was too tight and caused the bruise initially in was a small pimple .became larger in past few days , painful/ swollen Box of candy noted on pt's side table -says she only eats them when she feels shaky counselled for blood sugar management and diabetic control OBJECTIVE: Vital Signs-as noted below Exam: General-no sign of distress,chronically ill appearing Eyes-sclera non icteric, PERRLA/EOMI ENT-moist oral mucosa Neck-no JVD , no thyromegaly , trachea midline Lungs-coarse rales , _ wheeze Heart-regular S1/S2 Abdomen-soft, non tender Extremities-erythematous cystic swelling on rt dorsal foot , increased warmth / tender -mentions that her shoe rubs against it multiple skin wounds on tip of left index finger , bottom of great toe of right foot Neuro-AAO x3, no focal neurological deficit Lab data as noted below. ASSESSMENT & PLAN: This is a 51 year old M who presents to the emergency with respiratory symptoms or shortness of breath and cough secondary to missing 3 dialysis sessions vs pneumonia. Patient was brought in to the hospital by her family member. Patient reports that she usually gets dialysis M/W/F however she could not get to the past 3 dialysis sessions since she could not obtain transportation from her family members or friends. Patient reports that she depends upon others also for taking medications as she has visual impairments and cannot read the prescription bottles. Patient reports being off of her prescribed medications for a long while because other people in her life have not helped her with her medications and that she has no home health aides. SOB /VOL OVERLOAD : due to missed dialysis appreciate input form Nephrology pt had consecutive 2 daily tx vol status stable SOB has resolved, no orthopnea , no [place] LEFT LOWER LOBE PNEUMONIA : mentions of having productive cough for past few days with greening yellow sputum initially was ordered for Vancomycin /Zosyn Vancomycin D/lena-MRSA screen negative IV Zosyn could not be continued for poor vascular access pt will be started on PO Levaquin Pharmacy consulted for renal dosing ordered for sputum for culture and sensitivity MULTIPLE WOUNDS IN FEET/HANDS : pt mentions of bumping on things due to neuropathy developed swelling wound on rt foot due to ill fitted shoe counselled for proper fitting /diabetic foot snow to prevent injury Wound care consulted pt is known to the clinic started on Levaquin ID eval requested HTN : due to vol overload /missed dialysis improved after HD tx cont Lopressor 25 mg BID and nifedipine 60 mg daily HYPERKALEMIA/HYPERCALCEMIA : due to missed dialysis electrolytes stabilized after consecutive HD tx TYPE 2 DM : poorly controlled /non complaint ordered for Lantus /Insulin SSI pharmacy consulted for glycemic control DEPRESSION /REPORTS OF SUICIDAL IDEATION ; psych eval appreciated pt reports of frustration with poor health /dialysis /quality of life denies of suicidal ideation or self harm started on Zoloft 25 mg daily information given for put pt Psych /Counselling follow up Full Code DISPOSITION expected to return home when medically stable Social service consulted for discharge planning Vital Signs: Date Time Temp Pulse Resp B/P (MAP) Pulse Ox O2 Delivery O2 Flow Rate FiO2 09/04/17 20:45 73 146/69 (94) 09/04/17 16:00 Nasal Cannula 09/04/17 15:54 36.5 72 18 108/63 (78) 95 Room Air 09/04/17 15:14 36.7 80 20 94 2.0 09/04/17 14:30 132/60 (84) 09/04/17 12:45 36.7 80 137/70 (92) 09/04/17 12:30 76 134/64 09/04/17 12:15 71 113/59 09/04/17 12:00 Nasal Cannula 2.0 09/04/17 12:00 70 116/59 09/04/17 11:45 72 101/49 09/04/17 11:45 36.9 71 20 103/49 (67) 94 Nasal Cannula 2.0 09/04/17 11:30 73 103/49 09/04/17 11:15 71 94/51 09/04/17 11:00 73 97/49 09/04/17 10:45 75 105/54 09/04/17 10:30 75 98/51 09/04/17 10:15 75 99/47 09/04/17 10:00 80 110/57 09/04/17 09:40 83 123/67 09/04/17 09:30 36.9 84 117/55 (75) 09/04/17 08:00 Nasal Cannula 2.0 09/04/17 08:00 36.9 87 19 154/70 (98) 90 Room Air 09/04/17 04:00 93 Nasal Cannula 2.0 09/04/17 04:00 37.0 83 20 127/64 (85) 93 Nasal Cannula 2.0 09/03/17 23:59 36.9 83 17 129/65 (86) 91 Nasal Cannula 2.0 09/03/17 23:59 Nasal Cannula 2.0 Lab Results: Results Past 24 Hours Test 09/04/17 06:11 09/04/17 08:10 09/04/17 09:49 09/04/17 11:43 Range/Units Bedside Glucose 125 136 149 70-90 mg/dl White Blood Count 14.82 4.8-10.8 K/uL Red Blood Count 3.60 4.2-5.4 M/uL Hemoglobin 10.4 12.0-16.0 g/dL Hematocrit 32.6 37-47 % Mean Corpuscular Volume 90.6 80-100 fL Mean Corpuscular Hemoglobin 28.9 25-34 pg Mean Corpuscular Hemoglobin Concent 31.9 32-36 g/dl Platelet Count 354 130-400 K/uL Mean Platelet Volume 10.7 7.4-10.4 fL Neutrophils (%) (Auto) 80.5 % Lymphocytes (%) (Auto) 7.7 % Monocytes (%) (Auto) 9.9 % Eosinophils (%) (Auto) 1.3 % Basophils (%) (Auto) 0.2 % Neutrophils # (Auto) 11.93 1.4-6.5 K/uL Lymphocytes # (Auto) 1.14 1.2-3.4 K/uL Monocytes # (Auto) 1.46 0.11-0.59 K/uL Eosinophils # (Auto) 0.20 0-0.5 K/uL Basophils # (Auto) 0.03 0-0.2 K/uL RDW Standard Deviation 52.1 36.4-46.3 fL RDW Coefficient of Variation 15.8 11.5-14.5 % Immature Granulocyte % (Auto) 0.4 % Immature Granulocyte # (Auto) 0.06 0.00-0.02 K/uL Sodium Level 132 136-145 mmol/L Potassium Level 4.3 3.5-5.1 mmol/L Chloride Level 92 98-107 mmol/L Carbon Dioxide Level 23 21-32 mmol/L Anion Gap 17.0 3-11 mmol/L Blood Urea Nitrogen 105 7-18 mg/dl Creatinine 14.40 0.60-1.20 mg/dl Est Creatinine Clear Calc Drug Dose 5.8 ml/min Estimated GFR () 3.0 Estimated GFR (Non- 2.6 BUN/Creatinine Ratio 7.3 10-20 Random Glucose 178 70-99 mg/dl Calcium Level 9.7 8.5-10.1 mg/dl Total Bilirubin 0.4 0.2-1 mg/dl Aspartate Amino Transf (AST/SGOT) 9 15-37 U/L Alanine Aminotransferase (ALT/SGPT) 9 12-78 U/L Alkaline Phosphatase 75 45-117 U/L Total Protein 7.2 6.4-8.2 gm/dl Albumin 2.1 3.4-5.0 gm/dl Globulin 5.1 2.5-4.0 gm/dl Albumin/Globulin Ratio 0.4 0.9-2 Procalcitonin 8.67 0-0.5 ng/ml Hepatitis B Surface Antigen NEG NEG Hepatitis B Surface Antibody POS Test 09/04/17 16:29 09/04/17 20:40 Range/Units Bedside Glucose 222 97 70-90 mg/dl
[2017-09-04] MEDS: BENZONATATE 100MG CAP PO PRN (20:43)
[2017-09-04] MEDS: ALUM HYDROX/MAG TRISILICATE CHEW PO PRN (20:44)
[2017-09-04] MEDS: INSULIN GLARGINE SOLOSTAR 100 UNITS/ML 3 ML PEN SC SCH (20:48)
[2017-09-04] MEDS ORDERED: LEVOFLOXACIN 250 MG TAB PO ONE (22:30)
[2017-09-05] VITALS (17 sets, daily range): BP systolic 99–148; BP diastolic 42–79; PULSE 69–82; TEMP 36.4–36.6; O2SAT 94
[2017-09-05] MEDS: INSULIN ASPART 100 UNITS/ML 3 ML PEN SC SCH ×4 (06:30→21:01)
[2017-09-05 07:13] LABS: CALCIUM 9.4 mg/dl (8.5-10.1); CREATININE 9.99 mg/dl (0.60-1.20)
--- NOTE | 2017-09-05 07:13 | Nephrology Progress Note ---
Nephrology Progress Note Date of Service: Sep 05, 2017. Subjective 51 yo female who missed a week of dialysis secondary to no transportation. had dialysis tuesday and tuesday. also with cough and on antibiotic. very tired. tolerating dialysis well. Objective Date Time Temp Pulse Resp B/P (MAP) Pulse Ox O2 Delivery O2 Flow Rate FiO2 09/05/17 00:30 Room Air 09/04/17 23:42 36.9 66 18 107/62 (77) 92 Room Air 09/04/17 20:45 73 146/69 (94) 09/04/17 20:00 Room Air 09/04/17 16:00 Nasal Cannula 09/04/17 15:54 36.5 72 18 108/63 (78) 95 Room Air 09/04/17 15:14 36.7 80 20 94 2.0 09/04/17 14:30 132/60 (84) 09/04/17 12:45 36.7 80 137/70 (92) 09/04/17 12:30 76 134/64 09/04/17 12:15 71 113/59 09/04/17 12:00 Nasal Cannula 2.0 09/04/17 12:00 70 116/59 09/04/17 11:45 72 101/49 09/04/17 11:45 36.9 71 20 103/49 (67) 94 Nasal Cannula 2.0 09/04/17 11:30 73 103/49 09/04/17 11:15 71 94/51 09/04/17 11:00 73 97/49 09/04/17 10:45 75 105/54 09/04/17 10:30 75 98/51 09/04/17 10:15 75 99/47 09/04/17 10:00 80 110/57 09/04/17 09:40 83 123/67 09/04/17 09:30 36.9 84 117/55 (75) 09/04/17 08:00 Nasal Cannula 2.0 09/04/17 08:00 36.9 87 19 154/70 (98) 90 Room Air Physical Exam: General-aaox3, obese Eyes-no scleral icterus ENT-mmm Neck-supple Lungs-clear Heart-regular Abdomen-bs+ s/nt/nd Extremities-no edema Neuro-nonfocal Current Inpatient Medications Medications (Trade) Dose Ordered Sig/Bladimir Route Start Time Stop Time Status Last Admin Dose Admin Insulin Aspart (novoLOG ASPART) SLIDING SCALE G... ACHS SC 09/03/17 06:45 10/03/17 06:59 09/04/17 17:56 3 UNITS Glucose (Glucose 40% Gel) 15-30 GRAMS 15 GRAMS... UD PRN PO 09/03/17 00:00 10/03/17 00:00 Glucose (Glucose Chew Tab) 4-8 Tablets 4 Tabl... UD PRN PO 09/03/17 00:00 10/03/17 00:00 Dextrose (Dextrose 50% 50ML Syringe) 25-50ML OF 50% DW IV FOR... UD PRN IV 09/03/17 00:00 10/03/17 00:00 Glucagon (Glucagon Inj) 1 mg UD PRN SQ 09/03/17 00:00 10/03/17 00:00 Naphazoline HCl/ Pheniramine Maleate (Visine-A Oph Soln) 1 drops DAILY OP 09/03/17 09:00 10/03/17 08:59 09/04/17 09:04 1 DROPS Isosorbide Mononitrate (Imdur Ext Rel Tab) 60 mg QAM PO 09/03/17 09:00 10/03/17 08:59 09/04/17 14:32 60 MG Metoprolol Tartrate (Lopressor Tab) 50 mg BID PO 09/03/17 09:00 10/03/17 08:59 09/04/17 20:39 50 MG Insulin Glargine (Lantus Solostar Pen) 12 units HS SC 09/03/17 21:00 10/03/17 20:59 09/04/17 20:48 12 UNITS Sevelamer HCl (Renagel Tab) 2,400 mg TIDM PO 09/03/17 11:30 10/03/17 11:29 09/04/17 17:54 2,400 MG Acetaminophen (Tylenol Tab) 325 mg Q4H PRN PO 09/04/17 02:45 10/04/17 02:44 Benzonatate (Tessalon Perles Cap) 100 mg TID PRN PO 09/04/17 18:15 10/04/17 18:14 09/04/17 20:43 100 MG Sertraline HCl (Zoloft Tab) 25 mg QAM PO 09/05/17 08:00 10/05/17 07:59 Al Hydroxide/Mg Trisilicate (Gaviscon Chew Tab) 1 tab Q6 PRN PO 09/04/17 19:15 10/04/17 19:14 09/04/17 20:44 1 TAB Last 24 Hours Test 09/04/17 08:10 09/04/17 09:49 09/04/17 11:43 09/04/17 16:29 Bedside Glucose 136 mg/dl 149 mg/dl 222 mg/dl White Blood Count 14.82 K/uL Red Blood Count 3.60 M/uL Hemoglobin 10.4 g/dL Hematocrit 32.6 % Mean Corpuscular Volume 90.6 fL Mean Corpuscular Hemoglobin 28.9 pg Mean Corpuscular Hemoglobin Concent 31.9 g/dl Platelet Count 354 K/uL Mean Platelet Volume 10.7 fL Neutrophils (%) (Auto) 80.5 % Lymphocytes (%) (Auto) 7.7 % Monocytes (%) (Auto) 9.9 % Eosinophils (%) (Auto) 1.3 % Basophils (%) (Auto) 0.2 % Neutrophils # (Auto) 11.93 K/uL Lymphocytes # (Auto) 1.14 K/uL Monocytes # (Auto) 1.46 K/uL Eosinophils # (Auto) 0.20 K/uL Basophils # (Auto) 0.03 K/uL RDW Standard Deviation 52.1 fL RDW Coefficient of Variation 15.8 % Immature Granulocyte % (Auto) 0.4 % Immature Granulocyte # (Auto) 0.06 K/uL Sodium Level 132 mmol/L Potassium Level 4.3 mmol/L Chloride Level 92 mmol/L Carbon Dioxide Level 23 mmol/L Anion Gap 17.0 mmol/L Blood Urea Nitrogen 105 mg/dl Creatinine 14.40 mg/dl Est Creatinine Clear Calc Drug Dose 5.8 ml/min Estimated GFR () 3.0 Estimated GFR (Non- 2.6 BUN/Creatinine Ratio 7.3 Random Glucose 178 mg/dl Calcium Level 9.7 mg/dl Total Bilirubin 0.4 mg/dl Aspartate Amino Transf (AST/SGOT) 9 U/L Alanine Aminotransferase (ALT/SGPT) 9 U/L Alkaline Phosphatase 75 U/L Total Protein 7.2 gm/dl Albumin 2.1 gm/dl Globulin 5.1 gm/dl Albumin/Globulin Ratio 0.4 Procalcitonin 8.67 ng/ml Hepatitis B Surface Antigen NEG Hepatitis B Surface Antibody POS Test 09/04/17 20:40 09/05/17 05:36 Bedside Glucose 97 mg/dl Assessment & Plan ESRD-for dialysis again today. attempting to improve labs. would recommend case mgr referral since need to establish good transportation for the patient otherwise will not be able to go to outpt dialysis.
[2017-09-05] MEDS ORDERED: SERTRALINE HCL 50 MG TAB PO SCH (08:00)
[2017-09-05] MEDS: LACTOBACILLUS ACIDOPHILUS (FLORANEX) TAB PO SCH ×3 (08:12→16:31)
[2017-09-05] MEDS: NAPHAZOLIN/PHENIRAMIN OPH SOLN 75 DROPS/5 ML BTL OP SCH (08:14)
[2017-09-05] MEDS: SEVELAMER HYDROCH 800 MG TAB PO SCH ×3 (08:15→16:32)
[2017-09-05] MEDS ORDERED: LEVOFLOXACIN CONSULT ACTIVE PRN (08:30)
[2017-09-05] MEDS ORDERED: EPOETIN ALFA 10,000 UNITS/ML VIAL IV. ONE (10:00)
--- NOTE | 2017-09-05 10:58 | INFECT. DISEASE CONSULTATION ---
DATE OF CONSULTATION: 09/05/2017 HISTORY OF PRESENT ILLNESS: This is a 51-year-old female who was admitted to the hospital with respiratory symptoms. Additionally, she had missed multiple days of dialysis prior to admission. She was found to have a creatinine of 20 and a potassium of 6.7. She has been undergoing dialysis with improvement in her electrolytes as well as her creatinine. Her creatinine today is 9.9. She also had a leukocytosis of 16 on admission which has improved to 14. She was most recently seen in the wound care center by infectious diseases in January 2017. She was being treated for a toe ulceration. A culture had grown MRSA and she was given doxycycline. Unfortunately, she did not have any additional follow up with either the wound center or infectious diseases. She states that she completed these antibiotics without difficulty and has been off of antibiotics for some time now. She recently noticed an inflamed, indurated area over her ankle. She describes this as a cyst. She denies any bleeding or drainage from the area, but she does feel that it is fluid filled and painful. She has had some subjective fevers and chills over the past few days as well. Her chest x-ray showed questionable left upper lobe airspace opacity and she was treated initially with vancomycin and Zosyn in the ER and then transitioned to Levaquin. Infectious disease was consulted for diabetic foot wound. She is also reevaluated by the wound center as well. She currently denies any chest pain, cough, shortness of breath, nausea, vomiting, diarrhea or abdominal pain. She continues with her dialysis and is tolerating this well. She also has a wound over her third digit, which appears necrotic. She has been following up patient with a specialist who is not planning to do any surgical intervention at this time. She denies any drainage or bleeding from that area either. Her remaining review of systems is unremarkable. PAST MEDICAL HISTORY: Significant for coronary artery disease, carotid stenosis, type 2 diabetes, high cholesterol, end-stage renal disease on dialysis, GERD, hypertension, history of noncompliance, ischemic cardiomyopathy, morbid obesity. PAST SURGICAL HISTORY: Significant for AV graft and multiple diabetic wound debridements. FAMILY HISTORY: Noncontributory. SOCIAL HISTORY: Significant for tobacco use. She denies any alcohol or drug use. ALLERGIES: SHE IS ALLERGIC TO ADHESIVE TAPE AND LATEX. CURRENT MEDICATIONS: Include Levaquin, Zoloft, Floranex, Tylenol, Lantus, Renagel, Imdur, Lopressor, insulin. PHYSICAL EXAMINATION: VITAL SIGNS: She is afebrile, pulse 70, respiratory rate is 20, blood pressure is 148/67, oxygen saturation is 94% on room air. GENERAL: She is awake, alert and oriented x3. She is in no acute distress. HEENT: Mucous membranes are moist. Extraocular muscles are intact. HEART: Regular. LUNGS: Clear. ABDOMEN: Soft, nontender, nondistended. EXTREMITIES: There is no lower extremity edema bilaterally. SKIN: Without rash. Evaluation of the foot does reveal an erythematous cyst versus abscess over the ankle. There is no bleeding or drainage. There is tenderness to palpation. There is minimal erythema. LABORATORY STUDIES: CBC reveals a white blood cell count of 14.8, hemoglobin 10.4 and platelets 354. Chemistry panel reveals a sodium of 133, potassium 4.0, chloride 96, bicarbonate 26, BUN 61, creatinine 9.1, glucose is 107. UA is negative. UDS was negative. Flu swab was negative. Blood cultures are with no growth to date x2 sets. A chest x-ray done on the shows left upper lobe airspace opacity consistent with pneumonia. ASSESSMENT AND PLAN: Diabetic foot wound. She will continue on antibiotics which are currently prescribed for pneumonia. She likely will need an I&D of this abscess and cultures. Additional antibiotic recommendations will be made based on the result.
--- NOTE | 2017-09-05 10:59 | Progress Note ---
Progress Note Date of Service Sep 05, 2017. Progress Note ID Consult Dictated #[id number] A/P: 1. Foot wound -Will need I&D with culture, abx based on culture results -will follow, thank you
[2017-09-05] MEDS: BENZONATATE 100MG CAP PO PRN (16:29)
[2017-09-05] MEDS: LEVOFLOXACIN 500 MG TAB PO SCH (16:29)
[2017-09-05] MEDS: METOPROLOL TARTRATE 50 MG TAB PO SCH ×2 (16:30→19:59)
[2017-09-05] MEDS: ISOSORBIDE MONONITRATE 60 MG TABCR PO SCH (16:30)
--- NOTE | 2017-09-05 17:44 | Progress Note ---
Subjective Date of Service: Sep 05, 2017. Subjective Pt evaluation today including: conversation w/ patient, physical exam, lab review, review of studies, review of inpatient medication list Saw/examined the patient in room 403 She is getting dialysis currently, doing well with it breathing is improving, but she is requesting breathing treatments L middle finger is painful, tender L foot, fluid filled cyst noted Problem List Medical Problems: (1) Abdominal pain Status: Acute (2) Acute electrocardiogram changes Status: Acute (3) Back pain Status: Acute (4) Cellulitis Status: Acute (5) Cellulitis of left middle finger Status: Acute (6) Chest pain Status: Acute (7) Chronic kidney disease (CKD) Status: Acute (8) Dialysis AV fistula malfunction Status: Acute (9) Elevated troponin Status: Acute (10) Elevated troponin Status: Acute (11) Elevated troponin Status: Acute (12) End stage renal disease Status: Acute (13) GI bleed Status: Acute (14) Hyperkalemia Status: Acute (15) Hyperkalemia Status: Acute (16) Hypertension Status: Acute (17) Joint effusion Status: Acute (18) Left elbow pain Status: Acute (19) Left sided chest pain Status: Acute (20) Left sided chest pain Status: Acute (21) Limb ischemia Status: Acute (22) Lumbar back pain Status: Acute (23) Medical non-compliance Status: Acute (24) Mid back pain on right side Status: Acute (25) Musculoskeletal strain Status: Acute (26) Obesity Status: Acute (27) PNA (pneumonia) Status: Acute (28) Pneumonia Status: Acute (29) Pulmonary edema Status: Acute (30) Renal failure Status: Acute (31) Sinusitis Status: Acute (32) Strain of lumbar region Status: Acute (33) Substernal chest pain Status: Acute (34) Tendinopathy of right shoulder Status: Acute (35) Trochanteric bursitis, right hip Status: Acute (36) Upper abdominal pain Status: Acute (37) Upper GI bleed Status: Acute (38) Uremia Status: Acute (39) Urinary tract infection Status: Acute (40) Vomiting Status: Acute (41) Vomiting Status: Acute (42) Vomiting Status: Acute (43) Vomiting Status: Acute Review of Systems Constitutional: No fever, No chills, No weakness Respiratory: + shortness of breath (improving), No cough, No sputum, No wheezing, No dyspnea on exertion Cardiac: No chest pain Abdomen: No pain, No nausea, No vomiting, No diarrhea Musculoskeletal: + see HPI, + joint pain, + muscle pain, + swelling Heme: No abnormal bleeding/bruising Medications Current Inpatient Medications Medications (Trade) Dose Ordered Sig/Bladimir Route Start Time Stop Time Status Last Admin Dose Admin Insulin Aspart (novoLOG ASPART) SLIDING SCALE G... ACHS SC 09/03/17 06:45 10/03/17 06:59 09/05/17 17:14 1 UNITS Glucose (Glucose 40% Gel) 15-30 GRAMS 15 GRAMS... UD PRN PO 09/03/17 00:00 10/03/17 00:00 Glucose (Glucose Chew Tab) 4-8 Tablets 4 Tabl... UD PRN PO 09/03/17 00:00 10/03/17 00:00 Dextrose (Dextrose 50% 50ML Syringe) 25-50ML OF 50% DW IV FOR... UD PRN IV 09/03/17 00:00 10/03/17 00:00 Glucagon (Glucagon Inj) 1 mg UD PRN SQ 09/03/17 00:00 10/03/17 00:00 Naphazoline HCl/ Pheniramine Maleate (Visine-A Oph Soln) 1 drops DAILY OP 09/03/17 09:00 10/03/17 08:59 09/05/17 08:14 1 DROPS Isosorbide Mononitrate (Imdur Ext Rel Tab) 60 mg QAM PO 09/03/17 09:00 10/03/17 08:59 09/05/17 16:30 60 MG Metoprolol Tartrate (Lopressor Tab) 50 mg BID PO 09/03/17 09:00 10/03/17 08:59 09/05/17 16:30 50 MG Insulin Glargine (Lantus Solostar Pen) 12 units HS SC 09/03/17 21:00 10/03/17 20:59 09/04/17 20:48 12 UNITS Sevelamer HCl (Renagel Tab) 2,400 mg TIDM PO 09/03/17 11:30 10/03/17 11:29 09/05/17 16:32 2,400 MG Acetaminophen (Tylenol Tab) 325 mg Q4H PRN PO 09/04/17 02:45 10/04/17 02:44 Benzonatate (Tessalon Perles Cap) 100 mg TID PRN PO 09/04/17 18:15 10/04/17 18:14 09/05/17 16:29 100 MG Sertraline HCl (Zoloft Tab) 25 mg QAM PO 09/05/17 08:00 10/05/17 07:59 09/05/17 08:14 25 MG Al Hydroxide/Mg Trisilicate (Gaviscon Chew Tab) 1 tab Q6 PRN PO 09/04/17 19:15 10/04/17 19:14 09/04/17 20:44 1 TAB Lactobacillus Acidophilus (Floranex Tab) 4 tab TIDM PO 09/05/17 08:00 10/05/17 07:59 09/05/17 16:31 4 TAB Levofloxacin (Consult) 1 ea UD PRN N/A 09/05/17 08:30 10/05/17 08:29 Levofloxacin (Levaquin Tab) 500 mg Q48H PO 09/05/17 11:00 09/09/17 10:59 09/05/17 16:29 500 MG Albuterol/ Ipratropium (Duoneb) 3 ml BIDR INH 09/05/17 20:00 10/05/17 19:59 Objective Vital Signs Date Time Temp Pulse Resp B/P (MAP) Pulse Ox O2 Delivery O2 Flow Rate FiO2 09/05/17 16:22 36.6 76 126/63 (84) 09/05/17 16:00 Room Air 09/05/17 16:00 79 134/70 09/05/17 15:45 79 122/65 09/05/17 15:30 79 115/68 09/05/17 15:15 73 110/59 09/05/17 15:00 72 121/64 09/05/17 14:45 75 129/69 09/05/17 14:30 72 136/66 09/05/17 14:15 70 100/59 09/05/17 14:00 77 101/64 09/05/17 13:45 69 99/50 09/05/17 13:30 71 114/62 09/05/17 13:15 72 115/42 09/05/17 13:04 77 129/74 09/05/17 13:04 36.4 77 124/61 (82) 09/05/17 08:00 Room Air 09/05/17 07:24 36.5 70 20 148/67 (94) 94 Room Air 09/05/17 00:30 Room Air 09/04/17 23:42 36.9 66 18 107/62 (77) 92 Room Air 09/04/17 20:45 73 146/69 (94) 09/04/17 20:00 Room Air Physical Exam General Appearance: no apparent distress Respiratory/Chest: no respiratory distress, no accessory muscle use, + decreased breath sounds Cardiovascular: regular rate, rhythm, no edema, no murmur Extremities: + pertinent finding (L middle finger, black, tender to palpation; L foot cyst vs. abscess - ) Neurologic/Psychiatric: no motor/sensory deficits, alert, normal mood/affect Laboratory Results Last 24 Hours Test 09/04/17 20:40 09/05/17 05:36 09/05/17 08:00 09/05/17 11:53 Bedside Glucose 97 mg/dl 107 mg/dl 152 mg/dl Sodium Level 133 mmol/L Potassium Level 4.0 mmol/L Chloride Level 96 mmol/L Carbon Dioxide Level 26 mmol/L Anion Gap 11.0 mmol/L Blood Urea Nitrogen 61 mg/dl Creatinine 9.99 mg/dl Est Creatinine Clear Calc Drug Dose 8.2 ml/min Estimated GFR () 4.7 Estimated GFR (Non- 4.1 BUN/Creatinine Ratio 6.0 Random Glucose 143 mg/dl Calcium Level 9.4 mg/dl Test 09/05/17 16:45 Bedside Glucose 185 mg/dl Assessment and Plan This is a 51 year old female with a PMH of ESRD on HD, insulin dependent DM2, CAD s/p stents, ischemic cardiomyopathy, HLD, PVD, carotid artery stenosis s/p endarterectomy presents secondary to missed dialysis, shortness of breath, fluid overload ESRD on HD Ischemic Cardiomyopathy Acute on Chronic Systolic CHF patient missed three dialysis sessions 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 Abscess for now, continue quinolone appreciate ID input, we will continue Levaquin for now wound care consulted, may need this drained monitor; PT/OT HTN secondary to missed dialysis cont. Lopressor Hyperkalemia - resolved due to missed dialysis electrolytes stabilized after consecutive HD tx Insulin Dependent DM2 appreciate pharmacy glycemic control Lantus and sliding scale Depression appreciate psych evaluation started on Zoloft, which we can continue outpatient PCP follow-up DVT ppx SCDs FULL CODE
[2017-09-05] MEDS: ALBUT/IPRATROP 3MG/0.5MG NEB 3 ML VIAL INH SCH (19:23)
[2017-09-05] MEDS: INSULIN GLARGINE SOLOSTAR 100 UNITS/ML 3 ML PEN SC SCH (21:02)
[2017-09-06] VITALS: BP 109/67; PULSE 69; TEMP 37; O2SAT 96
[2017-09-06] MEDS ORDERED: IBUPROFEN 200 MG TAB PO PRN (02:45)
[2017-09-06 05:52] LABS: HEMATOCRIT 38.4 % (37-47); HEMOGLOBIN 11.7 g/dL (12.0-16.0); MEAN CELL VOLUME 94.6 fL (80-100); MEAN CORPUSCULAR HEMOGLOBIN 28.8 pg (25-34); MEAN CORPUSCULAR HGB CONC 30.5 g/dl (32-36); MEAN PLATELET VOLUME 10.8 fL (7.4-10.4); PLATELET COUNT 333 K/uL (130-400); RED CELL DISTRIBUTION WIDTH CV 15.7 % (11.5-14.5); WHITE BLOOD COUNT 11.35 K/uL (4.8-10.8)
[2017-09-06] MEDS: INSULIN ASPART 100 UNITS/ML 3 ML PEN SC SCH ×4 (06:30→20:24)
[2017-09-06 06:35] LABS: CALCIUM 9.7 mg/dl (8.5-10.1); CREATININE 7.45 mg/dl (0.60-1.20); POTASSIUM 3.7 mmol/L (3.5-5.1)
[2017-09-06] MEDS: ALBUT/IPRATROP 3MG/0.5MG NEB 3 ML VIAL INH SCH (07:24)
[2017-09-06 07:25] VITALS: PULSE 70; O2SAT 98
[2017-09-06 07:33] VITALS: BP 154/69; PULSE 74; TEMP 36.5; O2SAT 96
[2017-09-06] MEDS: LACTOBACILLUS ACIDOPHILUS (FLORANEX) TAB PO SCH ×3 (08:22→18:26)
[2017-09-06] MEDS: SEVELAMER HYDROCH 800 MG TAB PO SCH ×3 (08:24→18:26)
[2017-09-06] MEDS: NAPHAZOLIN/PHENIRAMIN OPH SOLN 75 DROPS/5 ML BTL OP SCH (08:24)
[2017-09-06] MEDS: BENZONATATE 100MG CAP PO PRN (08:24)
[2017-09-06] MEDS ORDERED: NURSING VERBAL MED ORDER ONE (11:15)
[2017-09-06] MEDS: METOPROLOL TARTRATE 50 MG TAB PO SCH ×2 (11:17→20:19)
[2017-09-06] MEDS: ISOSORBIDE MONONITRATE 60 MG TABCR PO SCH (11:17)
--- NOTE | 2017-09-06 14:18 | Progress Note ---
Subjective Date of Service: Sep 06, 2017. Subjective Pt evaluation today including: conversation w/ patient, physical exam, chart review, lab review, review of studies on levaquin for pna, sputum pending. blood cultures negative. was eval by wound nursing, awaiting wound eval for potential bedside debridement. tolerating abx. one loose stool this afternoon. no abd pain, eating well. no f/c. wbc improved. all remaining ros reviewed and are negative. Problem List Medical Problems: (1) Abdominal pain Status: Acute (2) Acute electrocardiogram changes Status: Acute (3) Back pain Status: Acute (4) Cellulitis Status: Acute (5) Cellulitis of left middle finger Status: Acute (6) Chest pain Status: Acute (7) Chronic kidney disease (CKD) Status: Acute (8) Dialysis AV fistula malfunction Status: Acute (9) Elevated troponin Status: Acute (10) Elevated troponin Status: Acute (11) Elevated troponin Status: Acute (12) End stage renal disease Status: Acute (13) GI bleed Status: Acute (14) Hyperkalemia Status: Acute (15) Hyperkalemia Status: Acute (16) Hypertension Status: Acute (17) Joint effusion Status: Acute (18) Left elbow pain Status: Acute (19) Left sided chest pain Status: Acute (20) Left sided chest pain Status: Acute (21) Limb ischemia Status: Acute (22) Lumbar back pain Status: Acute (23) Medical non-compliance Status: Acute (24) Mid back pain on right side Status: Acute (25) Musculoskeletal strain Status: Acute (26) Obesity Status: Acute (27) PNA (pneumonia) Status: Acute (28) Pneumonia Status: Acute (29) Pulmonary edema Status: Acute (30) Renal failure Status: Acute (31) Sinusitis Status: Acute (32) Strain of lumbar region Status: Acute (33) Substernal chest pain Status: Acute (34) Tendinopathy of right shoulder Status: Acute (35) Trochanteric bursitis, right hip Status: Acute (36) Upper abdominal pain Status: Acute (37) Upper GI bleed Status: Acute (38) Uremia Status: Acute (39) Urinary tract infection Status: Acute (40) Vomiting Status: Acute (41) Vomiting Status: Acute (42) Vomiting Status: Acute (43) Vomiting Status: Acute Objective Vital Signs Date Time Temp Pulse Resp B/P (MAP) Pulse Ox O2 Delivery O2 Flow Rate FiO2 09/06/17 08:00 Room Air 09/06/17 07:33 36.5 74 18 154/69 (97) 96 Room Air 09/06/17 07:25 70 16 98 Room Air 09/06/17 00:00 37.0 69 16 109/67 (81) 96 Room Air 09/06/17 00:00 Room Air 09/05/17 20:00 Room Air 09/05/17 19:54 76 137/79 (98) 94 Room Air 09/05/17 19:25 82 18 94 Room Air 09/05/17 16:22 36.6 76 126/63 (84) 09/05/17 16:00 Room Air 09/05/17 16:00 79 134/70 09/05/17 15:45 79 122/65 09/05/17 15:30 79 115/68 09/05/17 15:15 73 110/59 09/05/17 15:00 72 121/64 09/05/17 14:45 75 129/69 09/05/17 14:30 72 136/66 Physical Exam General Appearance: WD/WN, no apparent distress Eyes: normal inspection, EOMI Neck: supple Respiratory/Chest: lungs clear, normal breath sounds, no respiratory distress Cardiovascular: regular rate, rhythm, no edema Abdomen: non tender, soft Extremities: non-tender, no pedal edema Neurologic/Psychiatric: alert, oriented x 3 Skin: normal color Comments: left foot dressing intact. no erythema. Laboratory Results Item Value Date Time Gram Stain - Final Complete 02/03/17 0000 Ulcer Toe Left 1 Blood Culture - Preliminary Resulted 09/03/17 0743 Blood NO GROWTH TO DATE. Blood Culture - Preliminary Resulted 09/03/17 0604 Blood NO GROWTH TO DATE. Last 24 Hours Test 09/05/17 16:45 09/05/17 20:29 09/06/17 05:19 09/06/17 08:01 Bedside Glucose 185 mg/dl 211 mg/dl 151 mg/dl White Blood Count 11.35 K/uL Red Blood Count 4.06 M/uL Hemoglobin 11.7 g/dL Hematocrit 38.4 % Mean Corpuscular Volume 94.6 fL Mean Corpuscular Hemoglobin 28.8 pg Mean Corpuscular Hemoglobin Concent 30.5 g/dl RDW Standard Deviation 54.0 fL RDW Coefficient of Variation 15.7 % Platelet Count 333 K/uL Mean Platelet Volume 10.8 fL Sodium Level 134 mmol/L Potassium Level 3.7 mmol/L Chloride Level 100 mmol/L Carbon Dioxide Level 24 mmol/L Anion Gap 10.0 mmol/L Blood Urea Nitrogen 42 mg/dl Creatinine 7.45 mg/dl Est Creatinine Clear Calc Drug Dose 10.8 ml/min Estimated GFR () 6.7 Estimated GFR (Non- 5.8 BUN/Creatinine Ratio 5.5 Random Glucose 187 mg/dl Calcium Level 9.7 mg/dl Test 09/06/17 11:42 Bedside Glucose 157 mg/dl Assessment and Plan (1) Diabetic foot infection Assessment & Plan: await debridement and culture. h/o c diff, consider change to augmentin to complete course and adding po vanco while on abx. will follow.
[2017-09-06 16:11] VITALS: BP 153/73; PULSE 77; TEMP 36.4; O2SAT 98
--- NOTE | 2017-09-06 17:46 | Progress Note ---
Subjective Date of Service: Sep 06, 2017. Subjective Pt evaluation today including: conversation w/ patient, physical exam, lab review, review of studies, review of inpatient medication list Saw/examined the patient in room 403 +pain in the R middle finger is worsening there is also pain in the R foot; cysts are still present breathing and cough are improving Problem List Medical Problems: (1) Abdominal pain Status: Acute (2) Acute electrocardiogram changes Status: Acute (3) Back pain Status: Acute (4) Cellulitis Status: Acute (5) Cellulitis of left middle finger Status: Acute (6) Chest pain Status: Acute (7) Chronic kidney disease (CKD) Status: Acute (8) Dialysis AV fistula malfunction Status: Acute (9) Elevated troponin Status: Acute (10) Elevated troponin Status: Acute (11) Elevated troponin Status: Acute (12) End stage renal disease Status: Acute (13) GI bleed Status: Acute (14) Hyperkalemia Status: Acute (15) Hyperkalemia Status: Acute (16) Hypertension Status: Acute (17) Joint effusion Status: Acute (18) Left elbow pain Status: Acute (19) Left sided chest pain Status: Acute (20) Left sided chest pain Status: Acute (21) Limb ischemia Status: Acute (22) Lumbar back pain Status: Acute (23) Medical non-compliance Status: Acute (24) Mid back pain on right side Status: Acute (25) Musculoskeletal strain Status: Acute (26) Obesity Status: Acute (27) PNA (pneumonia) Status: Acute (28) Pneumonia Status: Acute (29) Pulmonary edema Status: Acute (30) Renal failure Status: Acute (31) Sinusitis Status: Acute (32) Strain of lumbar region Status: Acute (33) Substernal chest pain Status: Acute (34) Tendinopathy of right shoulder Status: Acute (35) Trochanteric bursitis, right hip Status: Acute (36) Upper abdominal pain Status: Acute (37) Upper GI bleed Status: Acute (38) Uremia Status: Acute (39) Urinary tract infection Status: Acute (40) Vomiting Status: Acute (41) Vomiting Status: Acute (42) Vomiting Status: Acute (43) Vomiting Status: Acute Review of Systems Respiratory: + cough (improving), + shortness of breath (improving), No sputum , No wheezing, No dyspnea on exertion, No dyspnea at rest, No hemoptysis Cardiac: No chest pain Musculoskeletal: + see HPI, + joint pain, + muscle pain Medications Current Inpatient Medications Medications (Trade) Dose Ordered Sig/Bladimir Route Start Time Stop Time Status Last Admin Dose Admin Insulin Aspart (novoLOG ASPART) SLIDING SCALE G... ACHS SC 09/03/17 06:45 10/03/17 06:59 09/05/17 21:01 2 UNITS Glucose (Glucose 40% Gel) 15-30 GRAMS 15 GRAMS... UD PRN PO 09/03/17 00:00 10/03/17 00:00 Glucose (Glucose Chew Tab) 4-8 Tablets 4 Tabl... UD PRN PO 09/03/17 00:00 10/03/17 00:00 Dextrose (Dextrose 50% 50ML Syringe) 25-50ML OF 50% DW IV FOR... UD PRN IV 09/03/17 00:00 10/03/17 00:00 Glucagon (Glucagon Inj) 1 mg UD PRN SQ 09/03/17 00:00 10/03/17 00:00 Naphazoline HCl/ Pheniramine Maleate (Visine-A Oph Soln) 1 drops DAILY OP 09/03/17 09:00 10/03/17 08:59 09/06/17 08:24 1 DROPS Isosorbide Mononitrate (Imdur Ext Rel Tab) 60 mg QAM PO 09/03/17 09:00 10/03/17 08:59 09/06/17 11:17 60 MG Metoprolol Tartrate (Lopressor Tab) 50 mg BID PO 09/03/17 09:00 10/03/17 08:59 09/06/17 11:17 50 MG Insulin Glargine (Lantus Solostar Pen) 12 units HS SC 09/03/17 21:00 10/03/17 20:59 09/05/17 21:02 12 UNITS Sevelamer HCl (Renagel Tab) 2,400 mg TIDM PO 09/03/17 11:30 10/03/17 11:29 09/06/17 12:57 2,400 MG Acetaminophen (Tylenol Tab) 325 mg Q4H PRN PO 09/04/17 02:45 10/04/17 02:44 09/06/17 02:22 325 MG Benzonatate (Tessalon Perles Cap) 100 mg TID PRN PO 09/04/17 18:15 10/04/17 18:14 09/06/17 08:24 100 MG Al Hydroxide/Mg Trisilicate (Gaviscon Chew Tab) 1 tab Q6 PRN PO 09/04/17 19:15 10/04/17 19:14 09/04/17 20:44 1 TAB Lactobacillus Acidophilus (Floranex Tab) 4 tab TIDM PO 09/05/17 08:00 10/05/17 07:59 09/06/17 12:56 4 TAB Levofloxacin (Consult) 1 ea UD PRN N/A 09/05/17 08:30 10/05/17 08:29 Levofloxacin (Levaquin Tab) 500 mg Q48H PO 09/05/17 11:00 09/09/17 10:59 09/05/17 16:29 500 MG Albuterol/ Ipratropium (Duoneb) 3 ml BIDR INH 09/05/17 20:00 10/05/17 19:59 09/06/17 07:24 3 ML Ibuprofen (Advil Tab) 200 mg Q6H PRN PO 09/06/17 02:45 10/06/17 02:44 Sertraline HCl (Zoloft Tab) 25 mg HS PO 09/06/17 21:00 10/06/17 20:59 Oxycodone/ Acetaminophen (Percocet 5-325mg Tab) 1 tab Q6 PRN PO 09/06/17 12:00 09/20/17 11:59 Objective Vital Signs Date Time Temp Pulse Resp B/P (MAP) Pulse Ox O2 Delivery O2 Flow Rate FiO2 09/06/17 16:11 36.4 77 18 153/73 (99) 98 Room Air 09/06/17 16:00 Room Air 09/06/17 08:00 Room Air 09/06/17 07:33 36.5 74 18 154/69 (97) 96 Room Air 09/06/17 07:25 70 16 98 Room Air 09/06/17 00:00 37.0 69 16 109/67 (81) 96 Room Air 09/06/17 00:00 Room Air 09/05/17 20:00 Room Air 09/05/17 19:54 76 137/79 (98) 94 Room Air 09/05/17 19:25 82 18 94 Room Air Physical Exam General Appearance: no apparent distress, + obese Respiratory/Chest: no respiratory distress, no accessory muscle use, + decreased breath sounds Cardiovascular: regular rate, rhythm, no edema, no murmur Extremities: normal inspection, no pedal edema, + pertinent finding (cysts on the R dorsal foot, and R lateral heel) Laboratory Results Last 24 Hours Test 09/05/17 20:29 09/06/17 05:19 09/06/17 08:01 09/06/17 11:42 Bedside Glucose 211 mg/dl 151 mg/dl 157 mg/dl White Blood Count 11.35 K/uL Red Blood Count 4.06 M/uL Hemoglobin 11.7 g/dL Hematocrit 38.4 % Mean Corpuscular Volume 94.6 fL Mean Corpuscular Hemoglobin 28.8 pg Mean Corpuscular Hemoglobin Concent 30.5 g/dl RDW Standard Deviation 54.0 fL RDW Coefficient of Variation 15.7 % Platelet Count 333 K/uL Mean Platelet Volume 10.8 fL Sodium Level 134 mmol/L Potassium Level 3.7 mmol/L Chloride Level 100 mmol/L Carbon Dioxide Level 24 mmol/L Anion Gap 10.0 mmol/L Blood Urea Nitrogen 42 mg/dl Creatinine 7.45 mg/dl Est Creatinine Clear Calc Drug Dose 10.8 ml/min Estimated GFR () 6.7 Estimated GFR (Non- 5.8 BUN/Creatinine Ratio 5.5 Random Glucose 187 mg/dl Calcium Level 9.7 mg/dl Test 09/06/17 16:42 Bedside Glucose 189 mg/dl Assessment and Plan This is a 51 year old female with a PMH of ESRD on HD, insulin dependent DM2, CAD s/p stents, ischemic cardiomyopathy, HLD, PVD, carotid artery stenosis s/p endarterectomy presents secondary to missed dialysis, shortness of breath, fluid overload ESRD on HD Ischemic Cardiomyopathy Acute on Chronic Systolic CHF 09/06 plan to continue dialysis as per nephrology 09/05 patient missed three dialysis sessions 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 Abscess 09/06 wound care provider consulted for possible drainage 09/05 for now, continue quinolone appreciate ID input, we will continue Levaquin for now wound care consulted, may need this drained monitor; PT/OT HTN secondary to missed dialysis cont. Lopressor Hyperkalemia - resolved due to missed dialysis electrolytes stabilized after consecutive HD tx Insulin Dependent DM2 appreciate pharmacy glycemic control Lantus and sliding scale Depression appreciate psych evaluation started on Zoloft, which we can continue outpatient PCP follow-up DVT ppx SCDs FULL CODE
[2017-09-06] MEDS: SERTRALINE HCL 50 MG TAB PO SCH (20:20)
[2017-09-06] MEDS: INSULIN GLARGINE SOLOSTAR 100 UNITS/ML 3 ML PEN SC SCH (20:26)
[2017-09-07] VITALS (20 sets, daily range): BP systolic 111–159; BP diastolic 56–97; PULSE 63–113; TEMP 36.4–36.9; O2SAT 95–98
[2017-09-07] MEDS: OXYCODONE/ACETAMINOPHEN 5-325 TAB PO PRN ×3 (00:37→22:23)
[2017-09-07] MEDS: ALUM HYDROX/MAG TRISILICATE CHEW PO PRN (00:38)
[2017-09-07 05:53] LABS: HEMOGLOBIN 10.7 g/dL (12.0-16.0); MEAN CELL VOLUME 93.8 fL (80-100); MEAN CORPUSCULAR HEMOGLOBIN 28.7 pg (25-34); MEAN CORPUSCULAR HGB CONC 30.6 g/dl (32-36); MEAN PLATELET VOLUME 10.4 fL (7.4-10.4); PLATELET COUNT 311 K/uL (130-400); RED CELL DISTRIBUTION WIDTH CV 15.9 % (11.5-14.5); WHITE BLOOD COUNT 10.93 K/uL (4.8-10.8)
[2017-09-07 06:32] LABS: CALCIUM 9.9 mg/dl (8.5-10.1); CREATININE 8.87 mg/dl (0.60-1.20); POTASSIUM 4.2 mmol/L (3.5-5.1)
[2017-09-07] MEDS: ALBUT/IPRATROP 3MG/0.5MG NEB 3 ML VIAL INH SCH (07:10)
[2017-09-07] MEDS: ISOSORBIDE MONONITRATE 60 MG TABCR PO SCH (08:00)
[2017-09-07] MEDS: SEVELAMER HYDROCH 800 MG TAB PO SCH ×3 (08:34→17:41)
[2017-09-07] MEDS: LACTOBACILLUS ACIDOPHILUS (FLORANEX) TAB PO SCH ×3 (08:34→17:42)
[2017-09-07] MEDS: NAPHAZOLIN/PHENIRAMIN OPH SOLN 75 DROPS/5 ML BTL OP SCH (08:35)
[2017-09-07] MEDS: INSULIN ASPART 100 UNITS/ML 3 ML PEN SC SCH ×5 (08:40→20:53)
[2017-09-07] MEDS: METOPROLOL TARTRATE 50 MG TAB PO SCH ×2 (08:40→22:25)
--- NOTE | 2017-09-07 11:10 | Progress Note ---
Subjective Date of Service: Sep 07, 2017. Subjective afebrile, blood cultures negative, no overnight events. awaiting debridement of foot, c diff negative, remains on levaquin for pna. Problem List Medical Problems: (1) Abdominal pain Status: Acute (2) Acute electrocardiogram changes Status: Acute (3) Back pain Status: Acute (4) Cellulitis Status: Acute (5) Cellulitis of left middle finger Status: Acute (6) Chest pain Status: Acute (7) Chronic kidney disease (CKD) Status: Acute (8) Dialysis AV fistula malfunction Status: Acute (9) Elevated troponin Status: Acute (10) Elevated troponin Status: Acute (11) Elevated troponin Status: Acute (12) End stage renal disease Status: Acute (13) GI bleed Status: Acute (14) Hyperkalemia Status: Acute (15) Hyperkalemia Status: Acute (16) Hypertension Status: Acute (17) Joint effusion Status: Acute (18) Left elbow pain Status: Acute (19) Left sided chest pain Status: Acute (20) Left sided chest pain Status: Acute (21) Limb ischemia Status: Acute (22) Lumbar back pain Status: Acute (23) Medical non-compliance Status: Acute (24) Mid back pain on right side Status: Acute (25) Musculoskeletal strain Status: Acute (26) Obesity Status: Acute (27) PNA (pneumonia) Status: Acute (28) Pneumonia Status: Acute (29) Pulmonary edema Status: Acute (30) Renal failure Status: Acute (31) Sinusitis Status: Acute (32) Strain of lumbar region Status: Acute (33) Substernal chest pain Status: Acute (34) Tendinopathy of right shoulder Status: Acute (35) Trochanteric bursitis, right hip Status: Acute (36) Upper abdominal pain Status: Acute (37) Upper GI bleed Status: Acute (38) Uremia Status: Acute (39) Urinary tract infection Status: Acute (40) Vomiting Status: Acute (41) Vomiting Status: Acute (42) Vomiting Status: Acute (43) Vomiting Status: Acute Objective Vital Signs Date Time Temp Pulse Resp B/P (MAP) Pulse Ox O2 Delivery O2 Flow Rate FiO2 09/07/17 07:30 36.5 65 16 134/78 (96) 95 09/07/17 07:10 113 16 96 Room Air 09/07/17 01:08 Room Air 09/07/17 00:00 36.7 71 20 149/84 (105) 98 Room Air 09/06/17 20:30 Room Air 09/06/17 16:11 36.4 77 18 153/73 (99) 98 Room Air 09/06/17 16:00 Room Air Laboratory Results Item Value Date Time C.difficile Toxin B Gene (PCR) - Final Complete 09/06/17 2255 Stool No C. difficile toxin B gene detected Blood Culture - Preliminary Resulted 09/03/17 0743 Blood NO GROWTH TO DATE. Blood Culture - Preliminary Resulted 09/03/17 0604 Blood NO GROWTH TO DATE. Last 24 Hours Test 09/06/17 11:42 09/06/17 16:42 09/06/17 20:12 09/07/17 05:26 Bedside Glucose 157 mg/dl 189 mg/dl 167 mg/dl White Blood Count 10.93 K/uL Red Blood Count 3.73 M/uL Hemoglobin 10.7 g/dL Hematocrit 35.0 % Mean Corpuscular Volume 93.8 fL Mean Corpuscular Hemoglobin 28.7 pg Mean Corpuscular Hemoglobin Concent 30.6 g/dl RDW Standard Deviation 54.0 fL RDW Coefficient of Variation 15.9 % Platelet Count 311 K/uL Mean Platelet Volume 10.4 fL Sodium Level 133 mmol/L Potassium Level 4.2 mmol/L Chloride Level 101 mmol/L Carbon Dioxide Level 22 mmol/L Anion Gap 10.0 mmol/L Blood Urea Nitrogen 57 mg/dl Creatinine 8.87 mg/dl Est Creatinine Clear Calc Drug Dose 9.1 ml/min Estimated GFR () 5.4 Estimated GFR (Non- 4.7 BUN/Creatinine Ratio 6.5 Random Glucose 102 mg/dl Calcium Level 9.9 mg/dl Test 09/07/17 07:51 Bedside Glucose 100 mg/dl Assessment and Plan (1) Diabetic foot infection Assessment & Plan: await debridement and culture. complete 5 days levaquin for pna will follow.
[2017-09-07] MEDS: LEVOFLOXACIN 500 MG TAB PO SCH (12:04)
--- NOTE | 2017-09-07 14:25 | Nephrology Progress Note ---
Nephrology Progress Note Date of Service: Sep 07, 2017. Subjective 51 yo female who missed a week of dialysis secondary to no transportation. doing dialysis now m-w-f. continues to be very tired. continues to have a cough. Objective Date Time Temp Pulse Resp B/P (MAP) Pulse Ox O2 Delivery O2 Flow Rate FiO2 09/07/17 08:45 95 Room Air 09/07/17 07:30 36.5 65 16 134/78 (96) 95 09/07/17 07:10 113 16 96 Room Air 09/07/17 01:08 Room Air 09/07/17 00:00 36.7 71 20 149/84 (105) 98 Room Air 09/06/17 20:30 Room Air 09/06/17 16:11 36.4 77 18 153/73 (99) 98 Room Air 09/06/17 16:00 Room Air Physical Exam: General-aaox3, obese Eyes-no scleral icterus ENT-mmm Neck-supple Lungs-rales at right base Heart-regular Abdomen-bs+ s/nt/nd Extremities-no edema, +closed blister on left foot, +necrotic finger Neuro-nonfocal Current Inpatient Medications Medications (Trade) Dose Ordered Sig/Bladimir Route Start Time Stop Time Status Last Admin Dose Admin Insulin Aspart (novoLOG ASPART) SLIDING SCALE G... ACHS SC 09/03/17 06:45 10/03/17 06:59 09/07/17 12:49 2 UNITS Glucose (Glucose 40% Gel) 15-30 GRAMS 15 GRAMS... UD PRN PO 09/03/17 00:00 10/03/17 00:00 Glucose (Glucose Chew Tab) 4-8 Tablets 4 Tabl... UD PRN PO 09/03/17 00:00 10/03/17 00:00 Dextrose (Dextrose 50% 50ML Syringe) 25-50ML OF 50% DW IV FOR... UD PRN IV 09/03/17 00:00 10/03/17 00:00 Glucagon (Glucagon Inj) 1 mg UD PRN SQ 09/03/17 00:00 10/03/17 00:00 Naphazoline HCl/ Pheniramine Maleate (Visine-A Oph Soln) 1 drops DAILY OP 09/03/17 09:00 10/03/17 08:59 09/07/17 08:35 1 DROPS Isosorbide Mononitrate (Imdur Ext Rel Tab) 60 mg QAM PO 09/03/17 09:00 10/03/17 08:59 09/06/17 11:17 60 MG Metoprolol Tartrate (Lopressor Tab) 50 mg BID PO 09/03/17 09:00 10/03/17 08:59 09/06/17 20:19 50 MG Insulin Glargine (Lantus Solostar Pen) 12 units HS SC 09/03/17 21:00 10/03/17 20:59 09/06/17 20:26 12 UNITS Sevelamer HCl (Renagel Tab) 2,400 mg TIDM PO 09/03/17 11:30 10/03/17 11:29 09/07/17 12:06 2,400 MG Acetaminophen (Tylenol Tab) 325 mg Q4H PRN PO 09/04/17 02:45 10/04/17 02:44 09/06/17 02:22 325 MG Benzonatate (Tessalon Perles Cap) 100 mg TID PRN PO 09/04/17 18:15 10/04/17 18:14 09/06/17 08:24 100 MG Al Hydroxide/Mg Trisilicate (Gaviscon Chew Tab) 1 tab Q6 PRN PO 09/04/17 19:15 10/04/17 19:14 09/07/17 00:38 1 TAB Lactobacillus Acidophilus (Floranex Tab) 4 tab TIDM PO 09/05/17 08:00 10/05/17 07:59 09/07/17 12:05 4 TAB Levofloxacin (Consult) 1 ea UD PRN N/A 09/05/17 08:30 10/05/17 08:29 Levofloxacin (Levaquin Tab) 500 mg Q48H PO 09/05/17 11:00 09/09/17 10:59 09/07/17 12:04 500 MG Albuterol/ Ipratropium (Duoneb) 3 ml BIDR INH 09/05/17 20:00 10/05/17 19:59 09/07/17 07:10 3 ML Ibuprofen (Advil Tab) 200 mg Q6H PRN PO 09/06/17 02:45 10/06/17 02:44 Sertraline HCl (Zoloft Tab) 25 mg HS PO 09/06/17 21:00 10/06/17 20:59 09/06/17 20:20 25 MG Oxycodone/ Acetaminophen (Percocet 5-325mg Tab) 1 tab Q6 PRN PO 09/06/17 12:00 09/20/17 11:59 09/07/17 12:45 1 TAB Last 24 Hours Test 09/06/17 16:42 09/06/17 20:12 09/07/17 05:26 09/07/17 07:51 Bedside Glucose 189 mg/dl 167 mg/dl 100 mg/dl White Blood Count 10.93 K/uL Red Blood Count 3.73 M/uL Hemoglobin 10.7 g/dL Hematocrit 35.0 % Mean Corpuscular Volume 93.8 fL Mean Corpuscular Hemoglobin 28.7 pg Mean Corpuscular Hemoglobin Concent 30.6 g/dl RDW Standard Deviation 54.0 fL RDW Coefficient of Variation 15.9 % Platelet Count 311 K/uL Mean Platelet Volume 10.4 fL Sodium Level 133 mmol/L Potassium Level 4.2 mmol/L Chloride Level 101 mmol/L Carbon Dioxide Level 22 mmol/L Anion Gap 10.0 mmol/L Blood Urea Nitrogen 57 mg/dl Creatinine 8.87 mg/dl Est Creatinine Clear Calc Drug Dose 9.1 ml/min Estimated GFR () 5.4 Estimated GFR (Non- 4.7 BUN/Creatinine Ratio 6.5 Random Glucose 102 mg/dl Calcium Level 9.9 mg/dl Test 09/07/17 11:45 Bedside Glucose 159 mg/dl Date/Time Source Procedure Growth Status 09/06/17 22:55 Stool C.difficile Toxin B Gene (PCR) - Final No C. difficile toxin B gene detected Complete 09/07/17 11:30 Drainage-Deep Ankle Left Gram Stain Pending Received 09/07/17 11:30 Drainage-Deep Ankle Left Wound Culture Pending Received Assessment & Plan ESRD-for dialysis today. labs much improved compared to admission. Anemia of Renal Failure-hg goal of 10 to 11. on procrit prn. OSIRIS: on renvela 3 with meals and non-compliant with medications. phos was elevated on admission.
--- NOTE | 2017-09-07 18:55 | Progress Note ---
Subjective Date of Service: Sep 07, 2017. Subjective Pt evaluation today including: conversation w/ patient, physical exam, lab review, review of studies, review of inpatient medication list Saw/examined the patient in room 403 c/o foot pain after debridement cough and shortness of breath improving Problem List Medical Problems: (1) Abdominal pain Status: Acute (2) Acute electrocardiogram changes Status: Acute (3) Back pain Status: Acute (4) Cellulitis Status: Acute (5) Cellulitis of left middle finger Status: Acute (6) Chest pain Status: Acute (7) Chronic kidney disease (CKD) Status: Acute (8) Dialysis AV fistula malfunction Status: Acute (9) Elevated troponin Status: Acute (10) Elevated troponin Status: Acute (11) Elevated troponin Status: Acute (12) End stage renal disease Status: Acute (13) GI bleed Status: Acute (14) Hyperkalemia Status: Acute (15) Hyperkalemia Status: Acute (16) Hypertension Status: Acute (17) Joint effusion Status: Acute (18) Left elbow pain Status: Acute (19) Left sided chest pain Status: Acute (20) Left sided chest pain Status: Acute (21) Limb ischemia Status: Acute (22) Lumbar back pain Status: Acute (23) Medical non-compliance Status: Acute (24) Mid back pain on right side Status: Acute (25) Musculoskeletal strain Status: Acute (26) Obesity Status: Acute (27) PNA (pneumonia) Status: Acute (28) Pneumonia Status: Acute (29) Pulmonary edema Status: Acute (30) Renal failure Status: Acute (31) Sinusitis Status: Acute (32) Strain of lumbar region Status: Acute (33) Substernal chest pain Status: Acute (34) Tendinopathy of right shoulder Status: Acute (35) Trochanteric bursitis, right hip Status: Acute (36) Upper abdominal pain Status: Acute (37) Upper GI bleed Status: Acute (38) Uremia Status: Acute (39) Urinary tract infection Status: Acute (40) Vomiting Status: Acute (41) Vomiting Status: Acute (42) Vomiting Status: Acute (43) Vomiting Status: Acute Review of Systems Constitutional: No fever, No chills Respiratory: + cough, + shortness of breath (improving) Musculoskeletal: + joint pain (L foot) Medications Current Inpatient Medications Medications (Trade) Dose Ordered Sig/Bladimir Route Start Time Stop Time Status Last Admin Dose Admin Insulin Aspart (novoLOG ASPART) SLIDING SCALE G... ACHS SC 09/03/17 06:45 10/03/17 06:59 09/07/17 12:49 2 UNITS Glucose (Glucose 40% Gel) 15-30 GRAMS 15 GRAMS... UD PRN PO 09/03/17 00:00 10/03/17 00:00 Glucose (Glucose Chew Tab) 4-8 Tablets 4 Tabl... UD PRN PO 09/03/17 00:00 10/03/17 00:00 Dextrose (Dextrose 50% 50ML Syringe) 25-50ML OF 50% DW IV FOR... UD PRN IV 09/03/17 00:00 10/03/17 00:00 Glucagon (Glucagon Inj) 1 mg UD PRN SQ 09/03/17 00:00 10/03/17 00:00 Naphazoline HCl/ Pheniramine Maleate (Visine-A Oph Soln) 1 drops DAILY OP 09/03/17 09:00 10/03/17 08:59 09/07/17 08:35 1 DROPS Isosorbide Mononitrate (Imdur Ext Rel Tab) 60 mg QAM PO 09/03/17 09:00 10/03/17 08:59 09/06/17 11:17 60 MG Metoprolol Tartrate (Lopressor Tab) 50 mg BID PO 09/03/17 09:00 10/03/17 08:59 09/06/17 20:19 50 MG Insulin Glargine (Lantus Solostar Pen) 12 units HS SC 09/03/17 21:00 10/03/17 20:59 09/06/17 20:26 12 UNITS Sevelamer HCl (Renagel Tab) 2,400 mg TIDM PO 09/03/17 11:30 10/03/17 11:29 09/07/17 17:41 2,400 MG Acetaminophen (Tylenol Tab) 325 mg Q4H PRN PO 09/04/17 02:45 10/04/17 02:44 09/06/17 02:22 325 MG Benzonatate (Tessalon Perles Cap) 100 mg TID PRN PO 09/04/17 18:15 10/04/17 18:14 09/06/17 08:24 100 MG Al Hydroxide/Mg Trisilicate (Gaviscon Chew Tab) 1 tab Q6 PRN PO 09/04/17 19:15 10/04/17 19:14 09/07/17 00:38 1 TAB Lactobacillus Acidophilus (Floranex Tab) 4 tab TIDM PO 09/05/17 08:00 10/05/17 07:59 09/07/17 17:42 4 TAB Levofloxacin (Consult) 1 ea UD PRN N/A 09/05/17 08:30 10/05/17 08:29 Levofloxacin (Levaquin Tab) 500 mg Q48H PO 09/05/17 11:00 09/09/17 10:59 09/07/17 12:04 500 MG Albuterol/ Ipratropium (Duoneb) 3 ml BIDR INH 09/05/17 20:00 10/05/17 19:59 09/07/17 07:10 3 ML Ibuprofen (Advil Tab) 200 mg Q6H PRN PO 09/06/17 02:45 10/06/17 02:44 Sertraline HCl (Zoloft Tab) 25 mg HS PO 09/06/17 21:00 10/06/17 20:59 09/06/17 20:20 25 MG Oxycodone/ Acetaminophen (Percocet 5-325mg Tab) 1 tab Q6 PRN PO 09/06/17 12:00 09/20/17 11:59 09/07/17 12:45 1 TAB Objective Vital Signs Date Time Temp Pulse Resp B/P (MAP) Pulse Ox O2 Delivery O2 Flow Rate FiO2 09/07/17 16:00 95 Room Air 09/07/17 15:40 36.7 63 18 111/70 (84) 95 Room Air 09/07/17 08:45 95 Room Air 09/07/17 07:30 36.5 65 16 134/78 (96) 95 09/07/17 07:10 113 16 96 Room Air 09/07/17 01:08 Room Air 09/07/17 00:00 36.7 71 20 149/84 (105) 98 Room Air 09/06/17 20:30 Room Air Physical Exam General Appearance: no apparent distress, + obese Respiratory/Chest: no respiratory distress, no accessory muscle use Cardiovascular: regular rate, rhythm Extremities: normal inspection, no pedal edema, + pertinent finding (L foot; ) Laboratory Results Last 24 Hours Test 09/06/17 20:12 09/07/17 05:26 09/07/17 07:51 09/07/17 11:45 Bedside Glucose 167 mg/dl 100 mg/dl 159 mg/dl White Blood Count 10.93 K/uL Red Blood Count 3.73 M/uL Hemoglobin 10.7 g/dL Hematocrit 35.0 % Mean Corpuscular Volume 93.8 fL Mean Corpuscular Hemoglobin 28.7 pg Mean Corpuscular Hemoglobin Concent 30.6 g/dl RDW Standard Deviation 54.0 fL RDW Coefficient of Variation 15.9 % Platelet Count 311 K/uL Mean Platelet Volume 10.4 fL Sodium Level 133 mmol/L Potassium Level 4.2 mmol/L Chloride Level 101 mmol/L Carbon Dioxide Level 22 mmol/L Anion Gap 10.0 mmol/L Blood Urea Nitrogen 57 mg/dl Creatinine 8.87 mg/dl Est Creatinine Clear Calc Drug Dose 9.1 ml/min Estimated GFR () 5.4 Estimated GFR (Non- 4.7 BUN/Creatinine Ratio 6.5 Random Glucose 102 mg/dl Calcium Level 9.9 mg/dl Test 09/07/17 16:35 Bedside Glucose 110 mg/dl Assessment and Plan This is a 51 year old female with a PMH of ESRD on HD, insulin dependent DM2, CAD s/p stents, ischemic cardiomyopathy, HLD, PVD, carotid artery stenosis s/p endarterectomy presents secondary to missed dialysis, shortness of breath, fluid overload ESRD on HD Ischemic Cardiomyopathy Acute on Chronic Systolic CHF 09/07 plan today is for HD had an I&D - cultures pending Levaquin for pneumonia nebs for SOB 09/06 plan to continue dialysis as per nephrology 09/05 patient missed three dialysis sessions supposed to have dialysis M-W-F housing case manager consulted for transportation to dialysis help continued fluid removal with dialysis L Lower Lobe Pneumonia +cough, shortness of breath CXR suggests LLL pneumonia for now, she is on Levaquin, we can continue for 5-7 days cultures pending L Foot Cyst vs. Abscess 09/06 wound care provider consulted for possible drainage 09/05 for now, continue quinolone appreciate ID input, we will continue Levaquin for now wound care consulted, may need this drained monitor; PT/OT HTN secondary to missed dialysis cont. Lopressor Hyperkalemia - resolved due to missed dialysis electrolytes stabilized after consecutive HD tx Insulin Dependent DM2 appreciate pharmacy glycemic control Lantus and sliding scale Depression appreciate psych evaluation started on Zoloft, which we can continue outpatient PCP follow-up DVT ppx SCDs FULL CODE
[2017-09-07] MEDS: SERTRALINE HCL 50 MG TAB PO SCH (22:24)
[2017-09-07] MEDS: INSULIN GLARGINE SOLOSTAR 100 UNITS/ML 3 ML PEN SC SCH (22:26)
[2017-09-08] VITALS (10 sets, daily range): BP systolic 127–169; BP diastolic 68–86; PULSE 64–85; TEMP 36.4–36.7; O2SAT 92–97
[2017-09-08] MEDS: OXYCODONE/ACETAMINOPHEN 5-325 TAB PO PRN ×2 (04:28→10:32)
[2017-09-08 06:31] LABS: HEMATOCRIT 33.2 % (37-47); HEMOGLOBIN 10.2 g/dL (12.0-16.0); MEAN CELL VOLUME 94.1 fL (80-100); MEAN CORPUSCULAR HEMOGLOBIN 28.9 pg (25-34); MEAN CORPUSCULAR HGB CONC 30.7 g/dl (32-36); MEAN PLATELET VOLUME 10.5 fL (7.4-10.4); PLATELET COUNT 296 K/uL (130-400); RED CELL DISTRIBUTION WIDTH CV 15.8 % (11.5-14.5); RED CELL DISTRIBUTION WIDTH SD 54.1 fL (36.4-46.3); WHITE BLOOD COUNT 8.05 K/uL (4.8-10.8)
[2017-09-08] MEDS: ALBUT/IPRATROP 3MG/0.5MG NEB 3 ML VIAL INH SCH ×2 (07:09→19:08)
[2017-09-08 07:12] LABS: CALCIUM 8.8 mg/dl (8.5-10.1); CREATININE 6.75 mg/dl (0.60-1.20); PHOSPHORUS 4.9 mg/dl (2.5-4.9); POTASSIUM 4.1 mmol/L (3.5-5.1)
[2017-09-08] MEDS: INSULIN ASPART 100 UNITS/ML 3 ML PEN SC SCH ×4 (08:41→21:00)
[2017-09-08] MEDS: SEVELAMER HYDROCH 800 MG TAB PO SCH ×4 (09:04→17:00)
[2017-09-08] MEDS: METOPROLOL TARTRATE 50 MG TAB PO SCH ×2 (09:04→21:20)
[2017-09-08] MEDS: ISOSORBIDE MONONITRATE 60 MG TABCR PO SCH (09:04)
[2017-09-08] MEDS: LACTOBACILLUS ACIDOPHILUS (FLORANEX) TAB PO SCH ×3 (09:04→16:50)
[2017-09-08] MEDS: NAPHAZOLIN/PHENIRAMIN OPH SOLN 75 DROPS/5 ML BTL OP SCH (09:08)
[2017-09-08] MEDS: BENZONATATE 100MG CAP PO PRN (09:19)
[2017-09-08] MEDS ORDERED: NURSING VERBAL MED ORDER ONE (12:00)
[2017-09-08] MEDS ORDERED: MoRPHine SULFATE 2 MG/ML CARP IV ONE (12:00)
--- NOTE | 2017-09-08 13:45 | Progress Note ---
Subjective Date of Service: Sep 08, 2017. Subjective wound culture negative to date, remains on levaquin for pna. sputum and blood cultures negative as well. c. diff negative. afebrile. Problem List Medical Problems: (1) Abdominal pain Status: Acute (2) Acute electrocardiogram changes Status: Acute (3) Back pain Status: Acute (4) Cellulitis Status: Acute (5) Cellulitis of left middle finger Status: Acute (6) Chest pain Status: Acute (7) Chronic kidney disease (CKD) Status: Acute (8) Dialysis AV fistula malfunction Status: Acute (9) Elevated troponin Status: Acute (10) Elevated troponin Status: Acute (11) Elevated troponin Status: Acute (12) End stage renal disease Status: Acute (13) GI bleed Status: Acute (14) Hyperkalemia Status: Acute (15) Hyperkalemia Status: Acute (16) Hypertension Status: Acute (17) Joint effusion Status: Acute (18) Left elbow pain Status: Acute (19) Left sided chest pain Status: Acute (20) Left sided chest pain Status: Acute (21) Limb ischemia Status: Acute (22) Lumbar back pain Status: Acute (23) Medical non-compliance Status: Acute (24) Mid back pain on right side Status: Acute (25) Musculoskeletal strain Status: Acute (26) Obesity Status: Acute (27) PNA (pneumonia) Status: Acute (28) Pneumonia Status: Acute (29) Pulmonary edema Status: Acute (30) Renal failure Status: Acute (31) Sinusitis Status: Acute (32) Strain of lumbar region Status: Acute (33) Substernal chest pain Status: Acute (34) Tendinopathy of right shoulder Status: Acute (35) Trochanteric bursitis, right hip Status: Acute (36) Upper abdominal pain Status: Acute (37) Upper GI bleed Status: Acute (38) Uremia Status: Acute (39) Urinary tract infection Status: Acute (40) Vomiting Status: Acute (41) Vomiting Status: Acute (42) Vomiting Status: Acute (43) Vomiting Status: Acute Objective Vital Signs Date Time Temp Pulse Resp B/P (MAP) Pulse Ox O2 Delivery O2 Flow Rate FiO2 09/08/17 12:02 36.4 65 18 128/86 (100) 94 Room Air 09/08/17 09:52 97 Room Air 09/08/17 09:00 Room Air 09/08/17 07:31 97 Room Air 09/08/17 07:21 36.5 71 18 127/77 (94) 93 Room Air 09/08/17 07:09 78 16 95 Room Air 09/08/17 00:01 Room Air 09/07/17 23:23 36.4 74 18 159/90 (113) 95 Room Air 09/07/17 22:10 36.6 69 134/70 (91) 09/07/17 22:00 66 126/68 09/07/17 21:45 71 122/66 09/07/17 21:30 63 117/59 09/07/17 21:15 64 114/62 09/07/17 21:00 66 123/66 09/07/17 20:45 73 133/97 09/07/17 20:30 65 112/69 09/07/17 20:15 66 112/56 09/07/17 20:00 66 118/66 09/07/17 19:45 66 120/64 09/07/17 19:30 73 145/80 09/07/17 19:05 36.9 73 132/72 (92) 09/07/17 16:00 95 Room Air 09/07/17 15:40 36.7 63 18 111/70 (84) 95 Room Air Laboratory Results Last 24 Hours Test 09/07/17 16:35 09/07/17 19:36 09/08/17 05:31 09/08/17 07:44 Bedside Glucose 110 mg/dl 123 mg/dl 99 mg/dl White Blood Count 8.05 K/uL Red Blood Count 3.53 M/uL Hemoglobin 10.2 g/dL Hematocrit 33.2 % Mean Corpuscular Volume 94.1 fL Mean Corpuscular Hemoglobin 28.9 pg Mean Corpuscular Hemoglobin Concent 30.7 g/dl RDW Standard Deviation 54.1 fL RDW Coefficient of Variation 15.8 % Platelet Count 296 K/uL Mean Platelet Volume 10.5 fL Sodium Level 135 mmol/L Potassium Level 4.1 mmol/L Chloride Level 103 mmol/L Carbon Dioxide Level 25 mmol/L Anion Gap 7.0 mmol/L Blood Urea Nitrogen 40 mg/dl Creatinine 6.75 mg/dl Est Creatinine Clear Calc Drug Dose 12.0 ml/min Estimated GFR () 7.6 Estimated GFR (Non- 6.5 BUN/Creatinine Ratio 6.0 Random Glucose 92 mg/dl Calcium Level 8.8 mg/dl Phosphorus Level 4.9 mg/dl Magnesium Level 2.2 mg/dl Test 09/08/17 11:41 Bedside Glucose 125 mg/dl Assessment and Plan (1) Diabetic foot infection Assessment & Plan: no additional abx for now, follow culture results.
[2017-09-08] MEDS ORDERED: MoRPHine SULFATE 2 MG/ML CARP IV STA (14:36)
--- NOTE | 2017-09-08 15:39 | Nephrology Progress Note ---
Nephrology Progress Note Date of Service: Sep 08, 2017. Subjective 51 yo female who missed a week of dialysis secondary to no transportation. doing dialysis now m-w-f. continues to be very tired. continues to have a cough. recently had I&D of foot lesion and getting packed routinely by nursing staff when patient allows. Still with cough but patient believes that symptoms are improving. plan for dialysis tomorrow. no chest pain, nausea. Objective Date Time Temp Pulse Resp B/P (MAP) Pulse Ox O2 Delivery O2 Flow Rate FiO2 09/08/17 12:02 36.4 65 18 128/86 (100) 94 Room Air 09/08/17 09:52 97 Room Air 09/08/17 09:00 Room Air 09/08/17 07:31 97 Room Air 09/08/17 07:21 36.5 71 18 127/77 (94) 93 Room Air 09/08/17 07:09 78 16 95 Room Air 09/08/17 00:01 Room Air 09/07/17 23:23 36.4 74 18 159/90 (113) 95 Room Air 09/07/17 22:10 36.6 69 134/70 (91) 09/07/17 22:00 66 126/68 09/07/17 21:45 71 122/66 09/07/17 21:30 63 117/59 09/07/17 21:15 64 114/62 09/07/17 21:00 66 123/66 09/07/17 20:45 73 133/97 09/07/17 20:30 65 112/69 09/07/17 20:15 66 112/56 09/07/17 20:00 66 118/66 09/07/17 19:45 66 120/64 09/07/17 19:30 73 145/80 09/07/17 19:05 36.9 73 132/72 (92) 09/07/17 16:00 95 Room Air 09/07/17 15:40 36.7 63 18 111/70 (84) 95 Room Air Physical Exam: General-aaox3, obese Eyes-no scleral icterus ENT-mmm Neck-supple Lungs-rales at right base Heart-regular Abdomen-bs+ s/nt/nd Extremities-no edema, +small mass dorsal left foot, I&D wound with clean and dry dressing on plantar aspect, +necrotic finger Neuro-nonfocal Current Inpatient Medications Medications (Trade) Dose Ordered Sig/Bladimir Route Start Time Stop Time Status Last Admin Dose Admin Insulin Aspart (novoLOG ASPART) SLIDING SCALE G... ACHS SC 09/03/17 06:45 10/03/17 06:59 09/07/17 12:49 2 UNITS Glucose (Glucose 40% Gel) 15-30 GRAMS 15 GRAMS... UD PRN PO 09/03/17 00:00 10/03/17 00:00 Glucose (Glucose Chew Tab) 4-8 Tablets 4 Tabl... UD PRN PO 09/03/17 00:00 10/03/17 00:00 Dextrose (Dextrose 50% 50ML Syringe) 25-50ML OF 50% DW IV FOR... UD PRN IV 09/03/17 00:00 10/03/17 00:00 Glucagon (Glucagon Inj) 1 mg UD PRN SQ 09/03/17 00:00 10/03/17 00:00 Naphazoline HCl/ Pheniramine Maleate (Visine-A Oph Soln) 1 drops DAILY OP 09/03/17 09:00 10/03/17 08:59 09/08/17 09:08 1 DROPS Isosorbide Mononitrate (Imdur Ext Rel Tab) 60 mg QAM PO 09/03/17 09:00 10/03/17 08:59 09/08/17 09:04 60 MG Metoprolol Tartrate (Lopressor Tab) 50 mg BID PO 09/03/17 09:00 10/03/17 08:59 09/08/17 09:04 50 MG Insulin Glargine (Lantus Solostar Pen) 12 units HS SC 09/03/17 21:00 10/03/17 20:59 09/07/17 22:26 12 UNITS Sevelamer HCl (Renagel Tab) 2,400 mg TIDM PO 09/03/17 11:30 10/03/17 11:29 09/08/17 12:04 2,400 MG Acetaminophen (Tylenol Tab) 325 mg Q4H PRN PO 09/04/17 02:45 10/04/17 02:44 09/06/17 02:22 325 MG Benzonatate (Tessalon Perles Cap) 100 mg TID PRN PO 09/04/17 18:15 10/04/17 18:14 09/08/17 09:19 100 MG Al Hydroxide/Mg Trisilicate (Gaviscon Chew Tab) 1 tab Q6 PRN PO 09/04/17 19:15 10/04/17 19:14 09/07/17 00:38 1 TAB Lactobacillus Acidophilus (Floranex Tab) 4 tab TIDM PO 09/05/17 08:00 10/05/17 07:59 09/08/17 09:04 4 TAB Levofloxacin (Consult) 1 ea UD PRN N/A 09/05/17 08:30 10/05/17 08:29 Levofloxacin (Levaquin Tab) 500 mg Q48H PO 09/05/17 11:00 09/09/17 10:59 09/07/17 12:04 500 MG Albuterol/ Ipratropium (Duoneb) 3 ml BIDR INH 09/05/17 20:00 10/05/17 19:59 09/08/17 07:09 3 ML Ibuprofen (Advil Tab) 200 mg Q6H PRN PO 09/06/17 02:45 10/06/17 02:44 Sertraline HCl (Zoloft Tab) 25 mg HS PO 09/06/17 21:00 10/06/17 20:59 09/07/17 22:24 25 MG Oxycodone/ Acetaminophen (Percocet 5-325mg Tab) 1 tab Q6 PRN PO 09/06/17 12:00 09/20/17 11:59 09/08/17 10:32 1 TAB Last 24 Hours Test 09/07/17 16:35 09/07/17 19:36 09/08/17 05:31 09/08/17 07:44 Bedside Glucose 110 mg/dl 123 mg/dl 99 mg/dl White Blood Count 8.05 K/uL Red Blood Count 3.53 M/uL Hemoglobin 10.2 g/dL Hematocrit 33.2 % Mean Corpuscular Volume 94.1 fL Mean Corpuscular Hemoglobin 28.9 pg Mean Corpuscular Hemoglobin Concent 30.7 g/dl RDW Standard Deviation 54.1 fL RDW Coefficient of Variation 15.8 % Platelet Count 296 K/uL Mean Platelet Volume 10.5 fL Sodium Level 135 mmol/L Potassium Level 4.1 mmol/L Chloride Level 103 mmol/L Carbon Dioxide Level 25 mmol/L Anion Gap 7.0 mmol/L Blood Urea Nitrogen 40 mg/dl Creatinine 6.75 mg/dl Est Creatinine Clear Calc Drug Dose 12.0 ml/min Estimated GFR () 7.6 Estimated GFR (Non- 6.5 BUN/Creatinine Ratio 6.0 Random Glucose 92 mg/dl Calcium Level 8.8 mg/dl Phosphorus Level 4.9 mg/dl Magnesium Level 2.2 mg/dl Test 09/08/17 11:41 Bedside Glucose 125 mg/dl Assessment & Plan ESRD-for dialysis tomorrow and on // schedule as clinical condition dictates. volume status good. potassium improved at 4.1. Anemia of Renal Failure- last level 10.2. hg goal of 10 to 11. on procrit prn. OSIRIS: on renvela 3 with meals and non-compliant with medications. phos was elevated on admission. encouraged compliance. This patient was seen and treated with direct collaboration with Dr. Prakash. Thank you for the opportunity to participate in this patient's care. Appreciate the Consult. ATTENDING NOTE: I performed a history and physical examination of the patient, including specifically on history- continues to be tired, on physical exam-has a lesion on the left foot, and my impression and plan are ESRD-continue dialysis . I have discussed the patient's management with Alka Green PA-C, Please refer to above note for the documented findings and plan of care. Shahbaz Prakash DO
--- NOTE | 2017-09-08 16:34 | Progress Note ---
Subjective Date of Service: Sep 08, 2017. Subjective Pt evaluation today including: conversation w/ patient, physical exam, lab review, review of studies, conversation w/ marketing regional consultant, review of inpatient medication list Saw/examined the patient in room 403 +pain in the LLE persistent refusing to allow nursing to change her dressing received morphine prior to this and kept telling nursing she was not ready cough improving, less sputum Problem List Medical Problems: (1) Abdominal pain Status: Acute (2) Acute electrocardiogram changes Status: Acute (3) Back pain Status: Acute (4) Cellulitis Status: Acute (5) Cellulitis of left middle finger Status: Acute (6) Chest pain Status: Acute (7) Chronic kidney disease (CKD) Status: Acute (8) Dialysis AV fistula malfunction Status: Acute (9) Elevated troponin Status: Acute (10) Elevated troponin Status: Acute (11) Elevated troponin Status: Acute (12) End stage renal disease Status: Acute (13) GI bleed Status: Acute (14) Hyperkalemia Status: Acute (15) Hyperkalemia Status: Acute (16) Hypertension Status: Acute (17) Joint effusion Status: Acute (18) Left elbow pain Status: Acute (19) Left sided chest pain Status: Acute (20) Left sided chest pain Status: Acute (21) Limb ischemia Status: Acute (22) Lumbar back pain Status: Acute (23) Medical non-compliance Status: Acute (24) Mid back pain on right side Status: Acute (25) Musculoskeletal strain Status: Acute (26) Obesity Status: Acute (27) PNA (pneumonia) Status: Acute (28) Pneumonia Status: Acute (29) Pulmonary edema Status: Acute (30) Renal failure Status: Acute (31) Sinusitis Status: Acute (32) Strain of lumbar region Status: Acute (33) Substernal chest pain Status: Acute (34) Tendinopathy of right shoulder Status: Acute (35) Trochanteric bursitis, right hip Status: Acute (36) Upper abdominal pain Status: Acute (37) Upper GI bleed Status: Acute (38) Uremia Status: Acute (39) Urinary tract infection Status: Acute (40) Vomiting Status: Acute (41) Vomiting Status: Acute (42) Vomiting Status: Acute (43) Vomiting Status: Acute Review of Systems Constitutional: No fever, No chills, No weakness Respiratory: + cough, + sputum, + shortness of breath, No wheezing, No dyspnea on exertion, No dyspnea at rest, No hemoptysis Cardiac: No chest pain, No edema, No palpitations Musculoskeletal: + joint pain Medications Current Inpatient Medications Medications (Trade) Dose Ordered Sig/Bladimir Route Start Time Stop Time Status Last Admin Dose Admin Insulin Aspart (novoLOG ASPART) SLIDING SCALE G... ACHS SC 09/03/17 06:45 10/03/17 06:59 09/07/17 12:49 2 UNITS Glucose (Glucose 40% Gel) 15-30 GRAMS 15 GRAMS... UD PRN PO 09/03/17 00:00 10/03/17 00:00 Glucose (Glucose Chew Tab) 4-8 Tablets 4 Tabl... UD PRN PO 09/03/17 00:00 10/03/17 00:00 Dextrose (Dextrose 50% 50ML Syringe) 25-50ML OF 50% DW IV FOR... UD PRN IV 09/03/17 00:00 10/03/17 00:00 Glucagon (Glucagon Inj) 1 mg UD PRN SQ 09/03/17 00:00 10/03/17 00:00 Naphazoline HCl/ Pheniramine Maleate (Visine-A Oph Soln) 1 drops DAILY OP 09/03/17 09:00 10/03/17 08:59 09/08/17 09:08 1 DROPS Isosorbide Mononitrate (Imdur Ext Rel Tab) 60 mg QAM PO 09/03/17 09:00 10/03/17 08:59 09/08/17 09:04 60 MG Metoprolol Tartrate (Lopressor Tab) 50 mg BID PO 09/03/17 09:00 10/03/17 08:59 09/08/17 09:04 50 MG Insulin Glargine (Lantus Solostar Pen) 12 units HS SC 09/03/17 21:00 10/03/17 20:59 09/07/17 22:26 12 UNITS Sevelamer HCl (Renagel Tab) 2,400 mg TIDM PO 09/03/17 11:30 10/03/17 11:29 09/08/17 12:04 2,400 MG Acetaminophen (Tylenol Tab) 325 mg Q4H PRN PO 09/04/17 02:45 10/04/17 02:44 09/06/17 02:22 325 MG Benzonatate (Tessalon Perles Cap) 100 mg TID PRN PO 09/04/17 18:15 10/04/17 18:14 09/08/17 09:19 100 MG Al Hydroxide/Mg Trisilicate (Gaviscon Chew Tab) 1 tab Q6 PRN PO 09/04/17 19:15 10/04/17 19:14 09/07/17 00:38 1 TAB Lactobacillus Acidophilus (Floranex Tab) 4 tab TIDM PO 09/05/17 08:00 10/05/17 07:59 09/08/17 09:04 4 TAB Levofloxacin (Consult) 1 ea UD PRN N/A 09/05/17 08:30 10/05/17 08:29 Levofloxacin (Levaquin Tab) 500 mg Q48H PO 09/05/17 11:00 09/09/17 10:59 09/07/17 12:04 500 MG Albuterol/ Ipratropium (Duoneb) 3 ml BIDR INH 09/05/17 20:00 10/05/17 19:59 09/08/17 07:09 3 ML Ibuprofen (Advil Tab) 200 mg Q6H PRN PO 09/06/17 02:45 10/06/17 02:44 Sertraline HCl (Zoloft Tab) 25 mg HS PO 09/06/17 21:00 10/06/17 20:59 09/07/17 22:24 25 MG Oxycodone/ Acetaminophen (Percocet 5-325mg Tab) 1 tab Q6 PRN PO 09/06/17 12:00 09/20/17 11:59 09/08/17 10:32 1 TAB Objective Vital Signs Date Time Temp Pulse Resp B/P (MAP) Pulse Ox O2 Delivery O2 Flow Rate FiO2 09/08/17 15:45 92 Room Air 09/08/17 15:34 36.5 64 16 127/68 (87) 92 Room Air 09/08/17 12:02 36.4 65 18 128/86 (100) 94 Room Air 09/08/17 09:52 97 Room Air 09/08/17 09:00 Room Air 09/08/17 07:31 97 Room Air 09/08/17 07:21 36.5 71 18 127/77 (94) 93 Room Air 09/08/17 07:09 78 16 95 Room Air 09/08/17 00:01 Room Air 09/07/17 23:23 36.4 74 18 159/90 (113) 95 Room Air 09/07/17 22:10 36.6 69 134/70 (91) 09/07/17 22:00 66 126/68 09/07/17 21:45 71 122/66 09/07/17 21:30 63 117/59 09/07/17 21:15 64 114/62 09/07/17 21:00 66 123/66 09/07/17 20:45 73 133/97 09/07/17 20:30 65 112/69 09/07/17 20:15 66 112/56 09/07/17 20:00 66 118/66 09/07/17 19:45 66 120/64 09/07/17 19:30 73 145/80 09/07/17 19:05 36.9 73 132/72 (92) Physical Exam General Appearance: no apparent distress Respiratory/Chest: no respiratory distress, no accessory muscle use, + decreased breath sounds Cardiovascular: regular rate, rhythm, no murmur Extremities: + swelling, + pertinent finding (abscesses on L foot) Laboratory Results Last 24 Hours Test 09/07/17 16:35 09/07/17 19:36 09/08/17 05:31 09/08/17 07:44 Bedside Glucose 110 mg/dl 123 mg/dl 99 mg/dl White Blood Count 8.05 K/uL Red Blood Count 3.53 M/uL Hemoglobin 10.2 g/dL Hematocrit 33.2 % Mean Corpuscular Volume 94.1 fL Mean Corpuscular Hemoglobin 28.9 pg Mean Corpuscular Hemoglobin Concent 30.7 g/dl RDW Standard Deviation 54.1 fL RDW Coefficient of Variation 15.8 % Platelet Count 296 K/uL Mean Platelet Volume 10.5 fL Sodium Level 135 mmol/L Potassium Level 4.1 mmol/L Chloride Level 103 mmol/L Carbon Dioxide Level 25 mmol/L Anion Gap 7.0 mmol/L Blood Urea Nitrogen 40 mg/dl Creatinine 6.75 mg/dl Est Creatinine Clear Calc Drug Dose 12.0 ml/min Estimated GFR () 7.6 Estimated GFR (Non- 6.5 BUN/Creatinine Ratio 6.0 Random Glucose 92 mg/dl Calcium Level 8.8 mg/dl Phosphorus Level 4.9 mg/dl Magnesium Level 2.2 mg/dl Test 09/08/17 11:41 Bedside Glucose 125 mg/dl Assessment and Plan This is a 51 year old female with a PMH of ESRD on HD, insulin dependent DM2, CAD s/p stents, ischemic cardiomyopathy, HLD, PVD, carotid artery stenosis s/p endarterectomy presents secondary to missed dialysis, shortness of breath, fluid overload ESRD on HD Ischemic Cardiomyopathy Acute on Chronic Systolic CHF 09/08 continue HD -W-F 09/07 plan today is for HD had an I&D - cultures pending Levaquin for pneumonia nebs for SOB 09/06 plan to continue dialysis as per nephrology 09/05 patient missed three dialysis sessions supposed to have dialysis -- case filler consulted for transportation to dialysis help continued fluid removal with dialysis L Lower Lobe Pneumonia 09/08 Levaquin for one more day 09/07 +cough, shortness of breath CXR suggests LLL pneumonia for now, she is on Levaquin, we can continue for 5-7 days cultures pending L Foot Cyst vs. Abscess 09/08 debridement as per wound care - to have another debridement in AM 09/06 wound care provider consulted for possible drainage 09/05 for now, continue quinolone appreciate ID input, we will continue Levaquin for now wound care consulted, may need this drained monitor; PT/OT HTN secondary to missed dialysis cont. Lopressor Hyperkalemia - resolved due to missed dialysis electrolytes stabilized after consecutive HD tx Insulin Dependent DM2 appreciate pharmacy glycemic control Lantus and sliding scale Depression appreciate psych evaluation started on Zoloft, which we can continue outpatient PCP follow-up DVT ppx SCDs FULL CODE
[2017-09-08] MEDS ORDERED: MoRPHine SULFATE 2 MG/ML CARP ONE (18:10)
[2017-09-08] MEDS: SERTRALINE HCL 50 MG TAB PO SCH (21:19)
[2017-09-08] MEDS: INSULIN GLARGINE SOLOSTAR 100 UNITS/ML 3 ML PEN SC SCH (21:22)
[2017-09-09] MEDS: OXYCODONE/ACETAMINOPHEN 5-325 TAB PO PRN (05:33)
[2017-09-09 07:21] LABS: HEMATOCRIT 34.6 % (37-47); HEMOGLOBIN 10.3 g/dL (12.0-16.0); MEAN CELL VOLUME 95.6 fL (80-100); MEAN CORPUSCULAR HEMOGLOBIN 28.5 pg (25-34); MEAN CORPUSCULAR HGB CONC 29.8 g/dl (32-36); MEAN PLATELET VOLUME 10.3 fL (7.4-10.4); PLATELET COUNT 339 K/uL (130-400); RED CELL DISTRIBUTION WIDTH SD 55.2 fL (36.4-46.3); WHITE BLOOD COUNT 9.44 K/uL (4.8-10.8)
[2017-09-09] MEDS: ALBUT/IPRATROP 3MG/0.5MG NEB 3 ML VIAL INH SCH ×2 (07:44→19:20)
[2017-09-09 07:49] VITALS: BP 144/89; PULSE 72; TEMP 36.6; O2SAT 94
[2017-09-09] MEDS: ISOSORBIDE MONONITRATE 60 MG TABCR PO SCH (07:51)
[2017-09-09] MEDS: METOPROLOL TARTRATE 50 MG TAB PO SCH ×2 (07:51→20:44)
[2017-09-09 07:52] VITALS: PULSE 75; O2SAT 90
[2017-09-09] MEDS: INSULIN ASPART 100 UNITS/ML 3 ML PEN SC SCH ×5 (07:57→20:49)
[2017-09-09] MEDS: LACTOBACILLUS ACIDOPHILUS (FLORANEX) TAB PO SCH ×3 (07:58→18:18)
[2017-09-09] MEDS: NAPHAZOLIN/PHENIRAMIN OPH SOLN 75 DROPS/5 ML BTL OP SCH (07:58)
[2017-09-09] MEDS: SEVELAMER HYDROCH 800 MG TAB PO SCH ×3 (07:59→18:21)
[2017-09-09] MEDS: BENZONATATE 100MG CAP PO PRN (08:01)
[2017-09-09 08:02] LABS: CALCIUM 9.8 mg/dl (8.5-10.1); CREATININE 8.36 mg/dl (0.60-1.20); POTASSIUM 4.4 mmol/L (3.5-5.1)
--- NOTE | 2017-09-09 10:56 | Progress Note ---
Subjective Date of Service: Sep 09, 2017. Subjective day 12/24 levaquin for pna, sputum culture and blood cultures negative. afebrile. tolerating abx, c diff negative. wound culture negative to date. wbc nml. Problem List Medical Problems: (1) Abdominal pain Status: Acute (2) Acute electrocardiogram changes Status: Acute (3) Back pain Status: Acute (4) Cellulitis Status: Acute (5) Cellulitis of left middle finger Status: Acute (6) Chest pain Status: Acute (7) Chronic kidney disease (CKD) Status: Acute (8) Dialysis AV fistula malfunction Status: Acute (9) Elevated troponin Status: Acute (10) Elevated troponin Status: Acute (11) Elevated troponin Status: Acute (12) End stage renal disease Status: Acute (13) GI bleed Status: Acute (14) Hyperkalemia Status: Acute (15) Hyperkalemia Status: Acute (16) Hypertension Status: Acute (17) Joint effusion Status: Acute (18) Left elbow pain Status: Acute (19) Left sided chest pain Status: Acute (20) Left sided chest pain Status: Acute (21) Limb ischemia Status: Acute (22) Lumbar back pain Status: Acute (23) Medical non-compliance Status: Acute (24) Mid back pain on right side Status: Acute (25) Musculoskeletal strain Status: Acute (26) Obesity Status: Acute (27) PNA (pneumonia) Status: Acute (28) Pneumonia Status: Acute (29) Pulmonary edema Status: Acute (30) Renal failure Status: Acute (31) Sinusitis Status: Acute (32) Strain of lumbar region Status: Acute (33) Substernal chest pain Status: Acute (34) Tendinopathy of right shoulder Status: Acute (35) Trochanteric bursitis, right hip Status: Acute (36) Upper abdominal pain Status: Acute (37) Upper GI bleed Status: Acute (38) Uremia Status: Acute (39) Urinary tract infection Status: Acute (40) Vomiting Status: Acute (41) Vomiting Status: Acute (42) Vomiting Status: Acute (43) Vomiting Status: Acute Objective Vital Signs Date Time Temp Pulse Resp B/P (MAP) Pulse Ox O2 Delivery O2 Flow Rate FiO2 09/09/17 08:00 Room Air 09/09/17 07:52 75 16 90 Room Air 09/09/17 07:49 36.6 72 16 144/89 (107) 94 09/09/17 00:00 Room Air 09/08/17 22:32 36.7 69 18 169/74 (105) 96 Room Air 09/08/17 21:18 66 144/78 (100) 09/08/17 19:08 85 16 94 Room Air 09/08/17 16:00 Room Air 09/08/17 15:45 92 Room Air 09/08/17 15:34 36.5 64 16 127/68 (87) 92 Room Air 09/08/17 12:02 36.4 65 18 128/86 (100) 94 Room Air Laboratory Results Item Value Date Time Gram Stain - Final Resulted 09/07/17 1130 Drainage-Deep Ankle Left Last 24 Hours Test 09/08/17 11:41 09/08/17 16:36 09/08/17 19:27 09/09/17 06:09 Bedside Glucose 125 mg/dl 109 mg/dl 155 mg/dl White Blood Count 9.44 K/uL Red Blood Count 3.62 M/uL Hemoglobin 10.3 g/dL Hematocrit 34.6 % Mean Corpuscular Volume 95.6 fL Mean Corpuscular Hemoglobin 28.5 pg Mean Corpuscular Hemoglobin Concent 29.8 g/dl RDW Standard Deviation 55.2 fL RDW Coefficient of Variation 16.0 % Platelet Count 339 K/uL Mean Platelet Volume 10.3 fL Sodium Level 137 mmol/L Potassium Level 4.4 mmol/L Chloride Level 102 mmol/L Carbon Dioxide Level 23 mmol/L Anion Gap 12.0 mmol/L Blood Urea Nitrogen 60 mg/dl Creatinine 8.36 mg/dl Est Creatinine Clear Calc Drug Dose 9.8 ml/min Estimated GFR () 5.8 Estimated GFR (Non- 5.0 BUN/Creatinine Ratio 7.3 Random Glucose 83 mg/dl Calcium Level 9.8 mg/dl Test 09/09/17 07:21 Bedside Glucose 95 mg/dl Assessment and Plan (1) Diabetic foot infection Assessment & Plan: no additional abx for now, follow culture results. will finish levaquin today. ok for d/c from ID standpoint off of abx.
--- NOTE | 2017-09-09 11:00 | Nephrology Progress Note ---
Nephrology Progress Note Date of Service: Sep 09, 2017. Subjective 51 yo female who missed a week of dialysis secondary to no transportation. doing dialysis -w-. plan for dialysis later today. patient refusing to let staff pack let foot wound. she believes that it is too painful and would like numbing solution for her dressings before she will allow packing. patient aware of risk of losing foot with improper care. patient continues to have productive cough and reports improved breathing. denies any CP or nausea. Objective Date Time Temp Pulse Resp B/P (MAP) Pulse Ox O2 Delivery O2 Flow Rate FiO2 09/09/17 08:00 Room Air 09/09/17 07:52 75 16 90 Room Air 09/09/17 07:49 36.6 72 16 144/89 (107) 94 09/09/17 00:00 Room Air 09/08/17 22:32 36.7 69 18 169/74 (105) 96 Room Air 09/08/17 21:18 66 144/78 (100) 09/08/17 19:08 85 16 94 Room Air 09/08/17 16:00 Room Air 09/08/17 15:45 92 Room Air 09/08/17 15:34 36.5 64 16 127/68 (87) 92 Room Air 09/08/17 12:02 36.4 65 18 128/86 (100) 94 Room Air Physical Exam: General-aaox3, obese Eyes-no scleral icterus ENT-mmm Neck-supple Lungs-rales at right base Heart-regular Abdomen-bs+ s/nt/nd Extremities-no edema, +small mass dorsal left foot, I&D wound with clean and dry dressing on plantar aspect, +necrotic finger Neuro-nonfocal Current Inpatient Medications Medications (Trade) Dose Ordered Sig/Bladimir Route Start Time Stop Time Status Last Admin Dose Admin Insulin Aspart (novoLOG ASPART) SLIDING SCALE G... ACHS SC 09/03/17 06:45 10/03/17 06:59 09/07/17 12:49 2 UNITS Glucose (Glucose 40% Gel) 15-30 GRAMS 15 GRAMS... UD PRN PO 09/03/17 00:00 10/03/17 00:00 Glucose (Glucose Chew Tab) 4-8 Tablets 4 Tabl... UD PRN PO 09/03/17 00:00 10/03/17 00:00 Dextrose (Dextrose 50% 50ML Syringe) 25-50ML OF 50% DW IV FOR... UD PRN IV 09/03/17 00:00 10/03/17 00:00 Glucagon (Glucagon Inj) 1 mg UD PRN SQ 09/03/17 00:00 10/03/17 00:00 Naphazoline HCl/ Pheniramine Maleate (Visine-A Oph Soln) 1 drops DAILY OP 09/03/17 09:00 10/03/17 08:59 09/09/17 07:58 1 DROPS Isosorbide Mononitrate (Imdur Ext Rel Tab) 60 mg QAM PO 09/03/17 09:00 10/03/17 08:59 09/08/17 09:04 60 MG Metoprolol Tartrate (Lopressor Tab) 50 mg BID PO 09/03/17 09:00 10/03/17 08:59 09/08/17 21:20 50 MG Insulin Glargine (Lantus Solostar Pen) 12 units HS SC 09/03/17 21:00 10/03/17 20:59 09/08/17 21:22 12 UNITS Sevelamer HCl (Renagel Tab) 2,400 mg TIDM PO 09/03/17 11:30 10/03/17 11:29 09/09/17 07:59 2,400 MG Acetaminophen (Tylenol Tab) 325 mg Q4H PRN PO 09/04/17 02:45 10/04/17 02:44 09/06/17 02:22 325 MG Benzonatate (Tessalon Perles Cap) 100 mg TID PRN PO 09/04/17 18:15 10/04/17 18:14 09/09/17 08:01 100 MG Al Hydroxide/Mg Trisilicate (Gaviscon Chew Tab) 1 tab Q6 PRN PO 09/04/17 19:15 10/04/17 19:14 09/07/17 00:38 1 TAB Lactobacillus Acidophilus (Floranex Tab) 4 tab TIDM PO 09/05/17 08:00 10/05/17 07:59 09/09/17 07:58 4 TAB Levofloxacin (Consult) 1 ea UD PRN N/A 09/05/17 08:30 10/05/17 08:29 Levofloxacin (Levaquin Tab) 500 mg Q48H PO 09/05/17 11:00 09/09/17 10:59 09/07/17 12:04 500 MG Albuterol/ Ipratropium (Duoneb) 3 ml BIDR INH 09/05/17 20:00 10/05/17 19:59 09/09/17 07:44 3 ML Ibuprofen (Advil Tab) 200 mg Q6H PRN PO 09/06/17 02:45 10/06/17 02:44 Sertraline HCl (Zoloft Tab) 25 mg HS PO 09/06/17 21:00 10/06/17 20:59 09/08/17 21:19 25 MG Oxycodone/ Acetaminophen (Percocet 5-325mg Tab) 1 tab Q6 PRN PO 09/06/17 12:00 09/20/17 11:59 09/09/17 05:33 1 TAB Last 24 Hours Test 09/08/17 11:41 09/08/17 16:36 09/08/17 19:27 09/09/17 06:09 Bedside Glucose 125 mg/dl 109 mg/dl 155 mg/dl White Blood Count 9.44 K/uL Red Blood Count 3.62 M/uL Hemoglobin 10.3 g/dL Hematocrit 34.6 % Mean Corpuscular Volume 95.6 fL Mean Corpuscular Hemoglobin 28.5 pg Mean Corpuscular Hemoglobin Concent 29.8 g/dl RDW Standard Deviation 55.2 fL RDW Coefficient of Variation 16.0 % Platelet Count 339 K/uL Mean Platelet Volume 10.3 fL Sodium Level 137 mmol/L Potassium Level 4.4 mmol/L Chloride Level 102 mmol/L Carbon Dioxide Level 23 mmol/L Anion Gap 12.0 mmol/L Blood Urea Nitrogen 60 mg/dl Creatinine 8.36 mg/dl Est Creatinine Clear Calc Drug Dose 9.8 ml/min Estimated GFR () 5.8 Estimated GFR (Non- 5.0 BUN/Creatinine Ratio 7.3 Random Glucose 83 mg/dl Calcium Level 9.8 mg/dl Test 09/09/17 07:21 Bedside Glucose 95 mg/dl Assessment & Plan ESRD-for dialysis later today and on // schedule as clinical condition dictates. volume status good. pre-dialysis potassium is 4.4. volume status ok. Anemia of Renal Failure- last level 10.3. hg goal of 10 to 11. on procrit prn- currently on hold. OSIRIS: on renvela 3 with meals and non-compliant with medications. phos was elevated on admission. encouraged compliance. Foot Wound: spoke to patient about excision of mass on top of foot. patient expressed concerns about pain. Patient expressed understanding about risk of losing foot if site were to become infected. current cultures negative. also always concerned for risk of calciphylaxis in these patients. Defer to wound care team. with patient's known issues with compliance I am concerned that patient will not be able to maintain good wound care as an outpt. This patient was seen and treated with direct collaboration with Dr. Prakash. Thank you for the opportunity to participate in this patient's care. Appreciate the Consult. ATTENDING NOTE: I performed a history and physical examination of the patient, including specifically on history- pt continues to have pain from the debridement of her foot, on physical exam-decreased breath sounds at base, and my impression and plan are ESRD-for dialysis today, did get medical assistance approved so transportation should not be an issue. I have discussed the patient's management with Alka Green PA-C, Please refer to above note for the documented findings and plan of care. Shahbaz Prakash DO
--- NOTE | 2017-09-09 14:22 | Wound Consultation: Inpatient ---
Wound Consultation Date of Consultation: Sep 07, 2017. Attending Physician: Lilly Rodriguez DO Reason for Consultation: Lumps on the left foot and ankle History of Present Illness Patient states she's had swelling in both the left foot and left ankle for many weeks. Patient states the ankle specifically is increased in size pain and redness. Patient states has been no open ulcerations or active drainage from the sites. Patient also stated she noticed a blackened area with a scab at the tip of her left middle finger over the past week. Patient denies any drainage swelling or redness at this site. Patient denies any current fever or chills. Patient was recently admitted for further evaluation and treatment of pneumonia. Patient currently denies any chest pain or increased shortness of breath. Patient denies any other systemic complaints at this time. Patient is well-known to the wound center and myself having been seen on prior occasions for diabetic foot ulcerations. Family History Diabetes mellitus FATHER MOTHER Heart disease FATHER MOTHER Hypertension FATHER MOTHER Kidney disease GRANDMOTHER Social History Smoking Status: Former Smoker Drug Use: none Marital Status: Housing Status: lives with family Occupation Status: unemployed Allergies Coded Allergies: Adhesives (Verified Allergy, Mild, RASH, SORES, 08/25/17) NO KNOWN DRUG ALLERGIES (Verified Allergy, Mild, ., 08/25/17) Latex1 -Allergic Contact Dermititis (Verified Allergy, Unknown, rash, ) Pollen Extract (Verified Allergy, Unknown, WATERY EYES, 08/25/17) Home Medications Scheduled Insulin Glargine (Lantus Solostar), 12 UNITS SQ HS Loratadine ([facility]), 10 MG PO BID Mupirocin 2% (Bactroban 2%), 1 APPLN EXT TID Inpatient Medications Current Inpatient Medications Medications (Trade) Dose Ordered Sig/Bladimir Route Start Time Stop Time Status Last Admin Dose Admin Insulin Aspart (novoLOG ASPART) SLIDING SCALE G... ACHS SC 09/03/17 06:45 10/03/17 06:59 09/09/17 13:04 1 UNITS Glucose (Glucose 40% Gel) 15-30 GRAMS 15 GRAMS... UD PRN PO 09/03/17 00:00 10/03/17 00:00 Glucose (Glucose Chew Tab) 4-8 Tablets 4 Tabl... UD PRN PO 09/03/17 00:00 10/03/17 00:00 Dextrose (Dextrose 50% 50ML Syringe) 25-50ML OF 50% DW IV FOR... UD PRN IV 09/03/17 00:00 10/03/17 00:00 Glucagon (Glucagon Inj) 1 mg UD PRN SQ 09/03/17 00:00 10/03/17 00:00 Naphazoline HCl/ Pheniramine Maleate (Visine-A Oph Soln) 1 drops DAILY OP 09/03/17 09:00 10/03/17 08:59 09/09/17 07:58 1 DROPS Isosorbide Mononitrate (Imdur Ext Rel Tab) 60 mg QAM PO 09/03/17 09:00 10/03/17 08:59 09/08/17 09:04 60 MG Metoprolol Tartrate (Lopressor Tab) 50 mg BID PO 09/03/17 09:00 10/03/17 08:59 09/08/17 21:20 50 MG Insulin Glargine (Lantus Solostar Pen) 12 units HS SC 09/03/17 21:00 10/03/17 20:59 09/08/17 21:22 12 UNITS Sevelamer HCl (Renagel Tab) 2,400 mg TIDM PO 09/03/17 11:30 10/03/17 11:29 09/09/17 13:05 2,400 MG Acetaminophen (Tylenol Tab) 325 mg Q4H PRN PO 09/04/17 02:45 10/04/17 02:44 09/06/17 02:22 325 MG Benzonatate (Tessalon Perles Cap) 100 mg TID PRN PO 09/04/17 18:15 10/04/17 18:14 09/09/17 08:01 100 MG Al Hydroxide/Mg Trisilicate (Gaviscon Chew Tab) 1 tab Q6 PRN PO 09/04/17 19:15 10/04/17 19:14 09/07/17 00:38 1 TAB Lactobacillus Acidophilus (Floranex Tab) 4 tab TIDM PO 09/05/17 08:00 10/05/17 07:59 09/09/17 13:05 4 TAB Albuterol/ Ipratropium (Duoneb) 3 ml BIDR INH 09/05/17 20:00 10/05/17 19:59 09/09/17 07:44 3 ML Ibuprofen (Advil Tab) 200 mg Q6H PRN PO 09/06/17 02:45 10/06/17 02:44 Sertraline HCl (Zoloft Tab) 25 mg HS PO 09/06/17 21:00 10/06/17 20:59 09/08/17 21:19 25 MG Oxycodone/ Acetaminophen (Percocet 5-325mg Tab) 1 tab Q6 PRN PO 09/06/17 12:00 09/20/17 11:59 09/09/17 05:33 1 TAB Physical Exam Date Time Temp Pulse Resp B/P (MAP) Pulse Ox O2 Delivery O2 Flow Rate FiO2 09/09/17 08:00 Room Air 09/09/17 07:52 75 16 90 Room Air 09/09/17 07:49 36.6 72 16 144/89 (107) 94 09/09/17 00:00 Room Air 09/08/17 22:32 36.7 69 18 169/74 (105) 96 Room Air 09/08/17 21:18 66 144/78 (100) 09/08/17 19:08 85 16 94 Room Air 09/08/17 16:00 Room Air 09/08/17 15:45 92 Room Air 09/08/17 15:34 36.5 64 16 127/68 (87) 92 Room Air General: The patient is lying in a hospital bed cooperative and appropriate to all questions. HEENT: Pupils equal and reactive to light. Sclera clear, EOM intact. Neck: Supple, No JVD noted Chest: CTA in all rodríguez. No deformity Heart: RRR without murmurs, S3, S4, thrills, rubs or heaves Extremities: A small eschar is noted at the tip of the left middle finger. There is no slough active drainage or swelling noted. No erythema present. Range of motion is intact. There is tenderness to palpation noted however. There are 2 masses noted on the left foot and ankle region 1 in the anterior dorsal aspect of the foot measuring approximately 2 cm in diameter. No erythema is noted no significant pain present fluctuance is noted. In the posterior ankle heel region there is an additional mass measuring approximately 3 cm in diameter which is erythematous fluctuant and painful to palpation. No ulceration or active drainage is noted at this site. Pulses are intact bilaterally. Neurological: Alert and oriented x3. No focal deficits. Skin: No rashes, papules, vesicles, excoriations Laboratory Results Last 24 Hours Test 09/08/17 16:36 09/08/17 19:27 09/09/17 06:09 09/09/17 07:21 Bedside Glucose 109 mg/dl 155 mg/dl 95 mg/dl White Blood Count 9.44 K/uL Red Blood Count 3.62 M/uL Hemoglobin 10.3 g/dL Hematocrit 34.6 % Mean Corpuscular Volume 95.6 fL Mean Corpuscular Hemoglobin 28.5 pg Mean Corpuscular Hemoglobin Concent 29.8 g/dl RDW Standard Deviation 55.2 fL RDW Coefficient of Variation 16.0 % Platelet Count 339 K/uL Mean Platelet Volume 10.3 fL Sodium Level 137 mmol/L Potassium Level 4.4 mmol/L Chloride Level 102 mmol/L Carbon Dioxide Level 23 mmol/L Anion Gap 12.0 mmol/L Blood Urea Nitrogen 60 mg/dl Creatinine 8.36 mg/dl Est Creatinine Clear Calc Drug Dose 9.8 ml/min Estimated GFR () 5.8 Estimated GFR (Non- 5.0 BUN/Creatinine Ratio 7.3 Random Glucose 83 mg/dl Calcium Level 9.8 mg/dl Test 09/09/17 11:40 Bedside Glucose 114 mg/dl Assessment & Plan Assessment: Abscess left ankle foot region Eschar third finger left hand Plan: At this time the abscess site on the left ankle did require incision and drainage. With the patient's permission and the area was prepped with Betadine a infiltration of lidocaine 2% without epinephrine was made and a incision was placed with a #11 blade. Approximately 20 mL of a yellowish-green purulent nonodorous material was expressed. The site was subsequent packed with iodoform gauze outer dry dressing of gauze. Patient did not wish the abscess on the foot area to be open today. Patient be reevaluated in 48 hours for consideration of further incision and drainage of the foot abscess. This represented a simple incision and drainage with incision of the left ankle.
--- NOTE | 2017-09-09 14:24 | Wound Progress Note: Inpatient ---
Wound Progress Note Date of Service Sep 09, 2017. Subjective Pt evaluation today including: conversation w/ patient, physical exam, chart review Patient seen today for follow-up evaluation of abscess formation to the left foot and ankle region. Patient's complains of pain in this area but denies any fever chills or night sweats. Objective Vital Signs Date Time Temp Pulse Resp B/P (MAP) Pulse Ox O2 Delivery O2 Flow Rate FiO2 09/09/17 08:00 Room Air 09/09/17 07:52 75 16 90 Room Air 09/09/17 07:49 36.6 72 16 144/89 (107) 94 09/09/17 00:00 Room Air 09/08/17 22:32 36.7 69 18 169/74 (105) 96 Room Air 09/08/17 21:18 66 144/78 (100) 09/08/17 19:08 85 16 94 Room Air 09/08/17 16:00 Room Air 09/08/17 15:45 92 Room Air 09/08/17 15:34 36.5 64 16 127/68 (87) 92 Room Air Physical Exam Notes: The patients vital signs were reviewed and found to be unremarkable patient is afebrile the left ankle incision and drainage site shows decreased erythema minimal tenderness to palpation no concurrent fluctuance noted. The abscess site on the anterior dorsal aspect of the foot today measures the same as 2 days prior there is no erythema or tenderness. No open ulceration or active drainage noted. Laboratory Results Last 24 Hours Test 09/08/17 16:36 09/08/17 19:27 09/09/17 06:09 09/09/17 07:21 Bedside Glucose 109 mg/dl 155 mg/dl 95 mg/dl White Blood Count 9.44 K/uL Red Blood Count 3.62 M/uL Hemoglobin 10.3 g/dL Hematocrit 34.6 % Mean Corpuscular Volume 95.6 fL Mean Corpuscular Hemoglobin 28.5 pg Mean Corpuscular Hemoglobin Concent 29.8 g/dl RDW Standard Deviation 55.2 fL RDW Coefficient of Variation 16.0 % Platelet Count 339 K/uL Mean Platelet Volume 10.3 fL Sodium Level 137 mmol/L Potassium Level 4.4 mmol/L Chloride Level 102 mmol/L Carbon Dioxide Level 23 mmol/L Anion Gap 12.0 mmol/L Blood Urea Nitrogen 60 mg/dl Creatinine 8.36 mg/dl Est Creatinine Clear Calc Drug Dose 9.8 ml/min Estimated GFR () 5.8 Estimated GFR (Non- 5.0 BUN/Creatinine Ratio 7.3 Random Glucose 83 mg/dl Calcium Level 9.8 mg/dl Test 09/09/17 11:40 Bedside Glucose 114 mg/dl Assessment and Plan Assessment: Abscess left ankle foot region Eschar third finger left hand Plan: Patient requests no further incision and drainage of abscesses of the foot region. The ankle area will be dressed with Aquacel an operative from change daily patient continue to be monitored during her hospital course culture obtained 2 days prior showed no evidence of any significant bacteria formation. Patient will be followed up in the outpatient clinic upon discharge.
--- NOTE | 2017-09-09 15:16 | Psychiatric Progress Notes ---
Psychiatric Progress Note Date of Service Sep 09, 2017. Notes ID: Patient reviewed with liaison nurse. initial consult completed on 09/04/16. Started Zoloft CC: "that zoloft helps" HPI: patient has been cooperating with most care/procedures but refused dressing change per notes. ROS: denied SI/HI/arias MSE: alert, cooperative, affect more spontaneous, thoughts organized Imp: as per initial consult Plan: patient declines titration of Zoloft at this time.
[2017-09-09 15:45] VITALS: BP 136/71; PULSE 60; TEMP 36.6; O2SAT 94
[2017-09-09 19:20] VITALS: PULSE 72; O2SAT 96
--- NOTE | 2017-09-09 19:28 | Progress Note ---
Subjective Date of Service: Sep 09, 2017. Subjective Pt evaluation today including: conversation w/ patient, physical exam, lab review, review of studies, review of inpatient medication list Saw/examined the patient in room 403 She is doing okay, refusing L foot debridement Problem List Medical Problems: (1) Abdominal pain Status: Acute (2) Acute electrocardiogram changes Status: Acute (3) Back pain Status: Acute (4) Cellulitis Status: Acute (5) Cellulitis of left middle finger Status: Acute (6) Chest pain Status: Acute (7) Chronic kidney disease (CKD) Status: Acute (8) Dialysis AV fistula malfunction Status: Acute (9) Elevated troponin Status: Acute (10) Elevated troponin Status: Acute (11) Elevated troponin Status: Acute (12) End stage renal disease Status: Acute (13) GI bleed Status: Acute (14) Hyperkalemia Status: Acute (15) Hyperkalemia Status: Acute (16) Hypertension Status: Acute (17) Joint effusion Status: Acute (18) Left elbow pain Status: Acute (19) Left sided chest pain Status: Acute (20) Left sided chest pain Status: Acute (21) Limb ischemia Status: Acute (22) Lumbar back pain Status: Acute (23) Medical non-compliance Status: Acute (24) Mid back pain on right side Status: Acute (25) Musculoskeletal strain Status: Acute (26) Obesity Status: Acute (27) PNA (pneumonia) Status: Acute (28) Pneumonia Status: Acute (29) Pulmonary edema Status: Acute (30) Renal failure Status: Acute (31) Sinusitis Status: Acute (32) Strain of lumbar region Status: Acute (33) Substernal chest pain Status: Acute (34) Tendinopathy of right shoulder Status: Acute (35) Trochanteric bursitis, right hip Status: Acute (36) Upper abdominal pain Status: Acute (37) Upper GI bleed Status: Acute (38) Uremia Status: Acute (39) Urinary tract infection Status: Acute (40) Vomiting Status: Acute (41) Vomiting Status: Acute (42) Vomiting Status: Acute (43) Vomiting Status: Acute Review of Systems Constitutional: + weakness Respiratory: No shortness of breath Cardiac: No chest pain Musculoskeletal: + joint pain Heme: No abnormal bleeding/bruising Medications Current Inpatient Medications Medications (Trade) Dose Ordered Sig/Bladimir Route Start Time Stop Time Status Last Admin Dose Admin Insulin Aspart (novoLOG ASPART) SLIDING SCALE G... ACHS SC 09/03/17 06:45 10/03/17 06:59 09/09/17 13:04 1 UNITS Glucose (Glucose 40% Gel) 15-30 GRAMS 15 GRAMS... UD PRN PO 09/03/17 00:00 10/03/17 00:00 Glucose (Glucose Chew Tab) 4-8 Tablets 4 Tabl... UD PRN PO 09/03/17 00:00 10/03/17 00:00 Dextrose (Dextrose 50% 50ML Syringe) 25-50ML OF 50% DW IV FOR... UD PRN IV 09/03/17 00:00 10/03/17 00:00 Glucagon (Glucagon Inj) 1 mg UD PRN SQ 09/03/17 00:00 10/03/17 00:00 Naphazoline HCl/ Pheniramine Maleate (Visine-A Oph Soln) 1 drops DAILY OP 09/03/17 09:00 10/03/17 08:59 09/09/17 07:58 1 DROPS Isosorbide Mononitrate (Imdur Ext Rel Tab) 60 mg QAM PO 09/03/17 09:00 10/03/17 08:59 09/08/17 09:04 60 MG Metoprolol Tartrate (Lopressor Tab) 50 mg BID PO 09/03/17 09:00 10/03/17 08:59 09/08/17 21:20 50 MG Insulin Glargine (Lantus Solostar Pen) 12 units HS SC 09/03/17 21:00 10/03/17 20:59 09/08/17 21:22 12 UNITS Sevelamer HCl (Renagel Tab) 2,400 mg TIDM PO 09/03/17 11:30 10/03/17 11:29 09/09/17 18:21 2,400 MG Acetaminophen (Tylenol Tab) 325 mg Q4H PRN PO 09/04/17 02:45 10/04/17 02:44 09/06/17 02:22 325 MG Benzonatate (Tessalon Perles Cap) 100 mg TID PRN PO 09/04/17 18:15 10/04/17 18:14 09/09/17 08:01 100 MG Al Hydroxide/Mg Trisilicate (Gaviscon Chew Tab) 1 tab Q6 PRN PO 09/04/17 19:15 10/04/17 19:14 09/07/17 00:38 1 TAB Lactobacillus Acidophilus (Floranex Tab) 4 tab TIDM PO 09/05/17 08:00 10/05/17 07:59 09/09/17 18:18 4 TAB Albuterol/ Ipratropium (Duoneb) 3 ml BIDR INH 09/05/17 20:00 10/05/17 19:59 09/09/17 07:44 3 ML Ibuprofen (Advil Tab) 200 mg Q6H PRN PO 09/06/17 02:45 10/06/17 02:44 Sertraline HCl (Zoloft Tab) 25 mg HS PO 09/06/17 21:00 10/06/17 20:59 09/08/17 21:19 25 MG Oxycodone/ Acetaminophen (Percocet 5-325mg Tab) 1 tab Q6 PRN PO 09/06/17 12:00 09/20/17 11:59 09/09/17 05:33 1 TAB Objective Vital Signs Date Time Temp Pulse Resp B/P (MAP) Pulse Ox O2 Delivery O2 Flow Rate FiO2 09/09/17 16:00 Room Air 09/09/17 15:45 36.6 60 16 136/71 (92) 94 09/09/17 08:00 Room Air 09/09/17 07:52 75 16 90 Room Air 09/09/17 07:49 36.6 72 16 144/89 (107) 94 09/09/17 00:00 Room Air 09/08/17 22:32 36.7 69 18 169/74 (105) 96 Room Air 09/08/17 21:18 66 144/78 (100) 09/08/17 19:08 85 16 94 Room Air Physical Exam General Appearance: no apparent distress Extremities: normal inspection, no pedal edema Neurologic/Psychiatric: no motor/sensory deficits, alert, normal mood/affect Laboratory Results Last 24 Hours Test 09/08/17 19:27 09/09/17 06:09 09/09/17 07:21 09/09/17 11:40 Bedside Glucose 155 mg/dl 95 mg/dl 114 mg/dl White Blood Count 9.44 K/uL Red Blood Count 3.62 M/uL Hemoglobin 10.3 g/dL Hematocrit 34.6 % Mean Corpuscular Volume 95.6 fL Mean Corpuscular Hemoglobin 28.5 pg Mean Corpuscular Hemoglobin Concent 29.8 g/dl RDW Standard Deviation 55.2 fL RDW Coefficient of Variation 16.0 % Platelet Count 339 K/uL Mean Platelet Volume 10.3 fL Sodium Level 137 mmol/L Potassium Level 4.4 mmol/L Chloride Level 102 mmol/L Carbon Dioxide Level 23 mmol/L Anion Gap 12.0 mmol/L Blood Urea Nitrogen 60 mg/dl Creatinine 8.36 mg/dl Est Creatinine Clear Calc Drug Dose 9.8 ml/min Estimated GFR () 5.8 Estimated GFR (Non- 5.0 BUN/Creatinine Ratio 7.3 Random Glucose 83 mg/dl Calcium Level 9.8 mg/dl Test 09/09/17 16:36 Bedside Glucose 103 mg/dl Assessment and Plan This is a 51 year old female with a PMH of ESRD on HD, insulin dependent DM2, CAD s/p stents, ischemic cardiomyopathy, HLD, PVD, carotid artery stenosis s/p endarterectomy presents secondary to missed dialysis, shortness of breath, fluid overload ESRD on HD Ischemic Cardiomyopathy Acute on Chronic Systolic CHF 09/09 clinically stable she is off of her Levaquin for pneumonia now no further debridement cultures from wound are negative plan for d/c in AM to home 09/08 continue HD M-W-F 09/07 plan today is for HD had an I&D - cultures pending Levaquin for pneumonia nebs for SOB 09/06 plan to continue dialysis as per nephrology 09/05 patient missed three dialysis sessions supposed to have dialysis -W- window caser consulted for transportation to dialysis help continued fluid removal with dialysis L Lower Lobe Pneumonia 09/08 Levaquin for one more day 09/07 +cough, shortness of breath CXR suggests LLL pneumonia for now, she is on Levaquin, we can continue for 5-7 days cultures pending L Foot Cyst vs. Abscess 09/08 debridement as per wound care - to have another debridement in AM 09/06 wound care provider consulted for possible drainage 09/05 for now, continue quinolone appreciate ID input, we will continue Levaquin for now wound care consulted, may need this drained monitor; PT/OT HTN secondary to missed dialysis cont. Lopressor Hyperkalemia - resolved due to missed dialysis electrolytes stabilized after consecutive HD tx Insulin Dependent DM2 appreciate pharmacy glycemic control Lantus and sliding scale Depression appreciate psych evaluation started on Zoloft, which we can continue outpatient PCP follow-up DVT ppx SCDs FULL CODE
[2017-09-09] MEDS: INSULIN GLARGINE SOLOSTAR 100 UNITS/ML 3 ML PEN SC SCH (20:42)
[2017-09-09] MEDS: SERTRALINE HCL 50 MG TAB PO SCH (20:43)
[2017-09-09 23:29] VITALS: BP 138/68; PULSE 75; TEMP 37.1; O2SAT 95
[2017-09-10] VITALS (20 sets, daily range): BP systolic 110–150; BP diastolic 55–76; PULSE 63–80; TEMP 36.7–37.5; O2SAT 90–95
[2017-09-10] MEDS ORDERED: LORATADINE 10 MG TAB PO ONE (00:15)
[2017-09-10] MEDS: ALUM HYDROX/MAG TRISILICATE CHEW PO PRN (00:30)
[2017-09-10 06:52] LABS: HEMATOCRIT 31.4 % (37-47); HEMOGLOBIN 9.6 g/dL (12.0-16.0); MEAN CELL VOLUME 93.7 fL (80-100); MEAN CORPUSCULAR HEMOGLOBIN 28.7 pg (25-34); MEAN CORPUSCULAR HGB CONC 30.6 g/dl (32-36); MEAN PLATELET VOLUME 10.2 fL (7.4-10.4); PLATELET COUNT 307 K/uL (130-400); RED CELL DISTRIBUTION WIDTH CV 16.2 % (11.5-14.5); RED CELL DISTRIBUTION WIDTH SD 55.6 fL (36.4-46.3); WHITE BLOOD COUNT 8.86 K/uL (4.8-10.8)
[2017-09-10 07:33] LABS: CALCIUM 9.3 mg/dl (8.5-10.1); CREATININE 9.61 mg/dl (0.60-1.20); POTASSIUM 4.8 mmol/L (3.5-5.1)
[2017-09-10] MEDS: LACTOBACILLUS ACIDOPHILUS (FLORANEX) TAB PO SCH ×3 (08:10→17:58)
[2017-09-10] MEDS: BENZONATATE 100MG CAP PO PRN (08:11)
[2017-09-10] MEDS: SEVELAMER HYDROCH 800 MG TAB PO SCH ×3 (08:12→17:58)
[2017-09-10] MEDS: NAPHAZOLIN/PHENIRAMIN OPH SOLN 75 DROPS/5 ML BTL OP SCH (08:12)
[2017-09-10] MEDS: INSULIN ASPART 100 UNITS/ML 3 ML PEN SC SCH ×4 (08:14→21:00)
[2017-09-10] MEDS: METOPROLOL TARTRATE 50 MG TAB PO SCH ×2 (12:57→21:17)
[2017-09-10] MEDS: ISOSORBIDE MONONITRATE 60 MG TABCR PO SCH (12:57)
--- NOTE | 2017-09-10 13:48 | Progress Note ---
Subjective Date of Service: Sep 10, 2017. Subjective Pt evaluation today including: conversation w/ patient, physical exam, lab review, review of studies, review of inpatient medication list Saw/examined the patient in room 403 Very tired today had dialysis earlier today other than weakness/tired, she is doing better Problem List Medical Problems: (1) Abdominal pain Status: Acute (2) Acute electrocardiogram changes Status: Acute (3) Back pain Status: Acute (4) Cellulitis Status: Acute (5) Cellulitis of left middle finger Status: Acute (6) Chest pain Status: Acute (7) Chronic kidney disease (CKD) Status: Acute (8) Dialysis AV fistula malfunction Status: Acute (9) Elevated troponin Status: Acute (10) Elevated troponin Status: Acute (11) Elevated troponin Status: Acute (12) End stage renal disease Status: Acute (13) GI bleed Status: Acute (14) Hyperkalemia Status: Acute (15) Hyperkalemia Status: Acute (16) Hypertension Status: Acute (17) Joint effusion Status: Acute (18) Left elbow pain Status: Acute (19) Left sided chest pain Status: Acute (20) Left sided chest pain Status: Acute (21) Limb ischemia Status: Acute (22) Lumbar back pain Status: Acute (23) Medical non-compliance Status: Acute (24) Mid back pain on right side Status: Acute (25) Musculoskeletal strain Status: Acute (26) Obesity Status: Acute (27) PNA (pneumonia) Status: Acute (28) Pneumonia Status: Acute (29) Pulmonary edema Status: Acute (30) Renal failure Status: Acute (31) Sinusitis Status: Acute (32) Strain of lumbar region Status: Acute (33) Substernal chest pain Status: Acute (34) Tendinopathy of right shoulder Status: Acute (35) Trochanteric bursitis, right hip Status: Acute (36) Upper abdominal pain Status: Acute (37) Upper GI bleed Status: Acute (38) Uremia Status: Acute (39) Urinary tract infection Status: Acute (40) Vomiting Status: Acute (41) Vomiting Status: Acute (42) Vomiting Status: Acute (43) Vomiting Status: Acute Review of Systems Constitutional: + weakness, + fatigue, No fever, No chills Respiratory: No cough, No sputum, No shortness of breath Cardiac: No chest pain Musculoskeletal: + joint pain (L foot) Medications Current Inpatient Medications Medications (Trade) Dose Ordered Sig/Bladimir Route Start Time Stop Time Status Last Admin Dose Admin Insulin Aspart (novoLOG ASPART) SLIDING SCALE G... ACHS SC 09/03/17 06:45 10/03/17 06:59 09/09/17 20:49 3 UNITS Glucose (Glucose 40% Gel) 15-30 GRAMS 15 GRAMS... UD PRN PO 09/03/17 00:00 10/03/17 00:00 Glucose (Glucose Chew Tab) 4-8 Tablets 4 Tabl... UD PRN PO 09/03/17 00:00 10/03/17 00:00 Dextrose (Dextrose 50% 50ML Syringe) 25-50ML OF 50% DW IV FOR... UD PRN IV 09/03/17 00:00 10/03/17 00:00 Glucagon (Glucagon Inj) 1 mg UD PRN SQ 09/03/17 00:00 10/03/17 00:00 Naphazoline HCl/ Pheniramine Maleate (Visine-A Oph Soln) 1 drops DAILY OP 09/03/17 09:00 10/03/17 08:59 09/10/17 08:12 1 DROPS Isosorbide Mononitrate (Imdur Ext Rel Tab) 60 mg QAM PO 09/03/17 09:00 10/03/17 08:59 09/08/17 09:04 60 MG Metoprolol Tartrate (Lopressor Tab) 50 mg BID PO 09/03/17 09:00 10/03/17 08:59 09/09/17 20:44 50 MG Insulin Glargine (Lantus Solostar Pen) 12 units HS SC 09/03/17 21:00 10/03/17 20:59 09/09/17 20:42 12 UNITS Sevelamer HCl (Renagel Tab) 2,400 mg TIDM PO 09/03/17 11:30 10/03/17 11:29 09/10/17 12:56 2,400 MG Acetaminophen (Tylenol Tab) 325 mg Q4H PRN PO 09/04/17 02:45 10/04/17 02:44 09/06/17 02:22 325 MG Benzonatate (Tessalon Perles Cap) 100 mg TID PRN PO 09/04/17 18:15 10/04/17 18:14 09/10/17 08:11 100 MG Al Hydroxide/Mg Trisilicate (Gaviscon Chew Tab) 1 tab Q6 PRN PO 09/04/17 19:15 10/04/17 19:14 09/10/17 00:30 1 TAB Lactobacillus Acidophilus (Floranex Tab) 4 tab TIDM PO 09/05/17 08:00 10/05/17 07:59 09/10/17 12:57 4 TAB Albuterol/ Ipratropium (Duoneb) 3 ml BIDR INH 09/05/17 20:00 10/05/17 19:59 09/09/17 19:20 3 ML Ibuprofen (Advil Tab) 200 mg Q6H PRN PO 09/06/17 02:45 10/06/17 02:44 Sertraline HCl (Zoloft Tab) 25 mg HS PO 09/06/17 21:00 10/06/17 20:59 09/09/17 20:43 25 MG Oxycodone/ Acetaminophen (Percocet 5-325mg Tab) 1 tab Q6 PRN PO 09/06/17 12:00 09/20/17 11:59 09/09/17 05:33 1 TAB Objective Vital Signs Date Time Temp Pulse Resp B/P (MAP) Pulse Ox O2 Delivery O2 Flow Rate FiO2 09/10/17 12:32 36.9 69 110/57 (74) 09/10/17 12:15 66 115/66 09/10/17 12:00 70 119/60 09/10/17 11:45 66 141/76 09/10/17 11:30 63 119/66 09/10/17 11:15 65 117/65 09/10/17 11:07 Room Air 09/10/17 11:00 67 123/65 09/10/17 10:45 65 112/61 09/10/17 10:30 67 123/66 09/10/17 10:15 66 111/65 09/10/17 10:00 68 110/55 09/10/17 09:45 66 131/71 09/10/17 09:30 68 134/75 09/10/17 09:20 36.9 71 150/76 (100) 09/10/17 07:48 69 16 94 Room Air 09/10/17 07:46 69 16 94 Room Air 09/10/17 07:03 37.1 70 17 122/75 (91) 95 Room Air 09/10/17 00:00 Room Air 09/09/17 23:29 37.1 75 20 138/68 (91) 95 Room Air 09/09/17 20:00 Room Air 09/09/17 19:20 72 16 96 Room Air 09/09/17 16:00 Room Air 09/09/17 15:45 36.6 60 16 136/71 (92) 94 Physical Exam General Appearance: no apparent distress, + pertinent finding (lethargic/tired) Respiratory/Chest: lungs clear, normal breath sounds, no respiratory distress, no accessory muscle use Cardiovascular: regular rate, rhythm, no edema, no murmur Extremities: normal inspection, no pedal edema, + pertinent finding (+cyst on the L dorsal aspect of foot) Laboratory Results Last 24 Hours Test 09/09/17 16:36 09/09/17 20:23 09/10/17 06:19 09/10/17 07:45 Bedside Glucose 103 mg/dl 140 mg/dl 95 mg/dl White Blood Count 8.86 K/uL Red Blood Count 3.35 M/uL Hemoglobin 9.6 g/dL Hematocrit 31.4 % Mean Corpuscular Volume 93.7 fL Mean Corpuscular Hemoglobin 28.7 pg Mean Corpuscular Hemoglobin Concent 30.6 g/dl RDW Standard Deviation 55.6 fL RDW Coefficient of Variation 16.2 % Platelet Count 307 K/uL Mean Platelet Volume 10.2 fL Sodium Level 136 mmol/L Potassium Level 4.8 mmol/L Chloride Level 101 mmol/L Carbon Dioxide Level 21 mmol/L Anion Gap 14.0 mmol/L Blood Urea Nitrogen 83 mg/dl Creatinine 9.61 mg/dl Est Creatinine Clear Calc Drug Dose 8.8 ml/min Estimated GFR () 4.9 Estimated GFR (Non- 4.3 BUN/Creatinine Ratio 8.6 Random Glucose 110 mg/dl Calcium Level 9.3 mg/dl Test 09/10/17 11:55 Bedside Glucose 140 mg/dl Assessment and Plan This is a 51 year old female with a PMH of ESRD on HD, insulin dependent DM2, CAD s/p stents, ischemic cardiomyopathy, HLD, PVD, carotid artery stenosis s/p endarterectomy presents secondary to missed dialysis, shortness of breath, fluid overload ESRD on HD Ischemic Cardiomyopathy Acute on Chronic Systolic CHF 09/10 she received dialysis today feeling tired/weak she is now off of Levaquin and all antibiotics at this time no abx. on discharge appreciate case management input - she can receive free van rides to dialysis now cont. Zoloft on discharge d/c in AM (09/11) 09/09 clinically stable she is off of her Levaquin for pneumonia now no further debridement cultures from wound are negative plan for d/c in AM to home 09/08 continue HD M-W-F 09/07 plan today is for HD had an I&D - cultures pending Levaquin for pneumonia nebs for SOB 09/06 plan to continue dialysis as per nephrology 09/05 patient missed three dialysis sessions supposed to have dialysis -W- cyanide case hardener consulted for transportation to dialysis help continued fluid removal with dialysis L Lower Lobe Pneumonia 09/08 Levaquin for one more day 09/07 +cough, shortness of breath CXR suggests LLL pneumonia for now, she is on Levaquin, we can continue for 5-7 days cultures pending L Foot Cyst vs. Abscess 09/08 debridement as per wound care - to have another debridement in AM 09/06 wound care provider consulted for possible drainage 09/05 for now, continue quinolone appreciate ID input, we will continue Levaquin for now wound care consulted, may need this drained monitor; PT/OT HTN secondary to missed dialysis cont. Lopressor Hyperkalemia - resolved due to missed dialysis electrolytes stabilized after consecutive HD tx Insulin Dependent DM2 appreciate pharmacy glycemic control Lantus and sliding scale Depression appreciate psych evaluation started on Zoloft, which we can continue outpatient PCP follow-up DVT ppx SCDs FULL CODE
--- NOTE | 2017-09-10 14:27 | Nephrology Progress Note ---
Nephrology Progress Note Date of Service: Sep 10, 2017. Subjective seen on rounds at 1400; c/o marked fatigue. tolerated HD earlier today w/ 1L UF. has outpt rides arranged to hd and for outpt further debridement Objective Date Time Temp Pulse Resp B/P (MAP) Pulse Ox O2 Delivery O2 Flow Rate FiO2 09/10/17 12:32 36.9 69 110/57 (74) 09/10/17 12:15 66 115/66 09/10/17 12:00 70 119/60 09/10/17 11:45 66 141/76 09/10/17 11:30 63 119/66 09/10/17 11:15 65 117/65 09/10/17 11:07 Room Air 09/10/17 11:00 67 123/65 09/10/17 10:45 65 112/61 09/10/17 10:30 67 123/66 09/10/17 10:15 66 111/65 09/10/17 10:00 68 110/55 09/10/17 09:45 66 131/71 09/10/17 09:30 68 134/75 09/10/17 09:20 36.9 71 150/76 (100) 09/10/17 07:48 69 16 94 Room Air 09/10/17 07:46 69 16 94 Room Air 09/10/17 07:03 37.1 70 17 122/75 (91) 95 Room Air 09/10/17 00:00 Room Air 09/09/17 23:29 37.1 75 20 138/68 (91) 95 Room Air 09/09/17 20:00 Room Air 09/09/17 19:20 72 16 96 Room Air 09/09/17 16:00 Room Air 09/09/17 15:45 36.6 60 16 136/71 (92) 94 Physical Exam: General-aaox3, obese, lying flat on RA Eyes-no scleral icterus ENT-mmm Neck-supple Lungs-diminished throughout Heart-regular r/r Abdomen-bs+ s/nt/nd Extremities-no edema, L foot wound +necrotic finger Neuro-stein, fluent speech Current Inpatient Medications Medications (Trade) Dose Ordered Sig/Bladmiir Route Start Time Stop Time Status Last Admin Dose Admin Insulin Aspart (novoLOG ASPART) SLIDING SCALE G... ACHS SC 09/03/17 06:45 10/03/17 06:59 09/09/17 20:49 3 UNITS Glucose (Glucose 40% Gel) 15-30 GRAMS 15 GRAMS... UD PRN PO 09/03/17 00:00 10/03/17 00:00 Glucose (Glucose Chew Tab) 4-8 Tablets 4 Tabl... UD PRN PO 09/03/17 00:00 10/03/17 00:00 Dextrose (Dextrose 50% 50ML Syringe) 25-50ML OF 50% DW IV FOR... UD PRN IV 09/03/17 00:00 10/03/17 00:00 Glucagon (Glucagon Inj) 1 mg UD PRN SQ 09/03/17 00:00 10/03/17 00:00 Naphazoline HCl/ Pheniramine Maleate (Visine-A Oph Soln) 1 drops DAILY OP 09/03/17 09:00 10/03/17 08:59 09/10/17 08:12 1 DROPS Isosorbide Mononitrate (Imdur Ext Rel Tab) 60 mg QAM PO 09/03/17 09:00 10/03/17 08:59 09/08/17 09:04 60 MG Metoprolol Tartrate (Lopressor Tab) 50 mg BID PO 09/03/17 09:00 10/03/17 08:59 09/09/17 20:44 50 MG Insulin Glargine (Lantus Solostar Pen) 12 units HS SC 09/03/17 21:00 10/03/17 20:59 09/09/17 20:42 12 UNITS Sevelamer HCl (Renagel Tab) 2,400 mg TIDM PO 09/03/17 11:30 10/03/17 11:29 09/10/17 12:56 2,400 MG Acetaminophen (Tylenol Tab) 325 mg Q4H PRN PO 09/04/17 02:45 10/04/17 02:44 09/06/17 02:22 325 MG Benzonatate (Tessalon Perles Cap) 100 mg TID PRN PO 09/04/17 18:15 10/04/17 18:14 09/10/17 08:11 100 MG Al Hydroxide/Mg Trisilicate (Gaviscon Chew Tab) 1 tab Q6 PRN PO 09/04/17 19:15 10/04/17 19:14 09/10/17 00:30 1 TAB Lactobacillus Acidophilus (Floranex Tab) 4 tab TIDM PO 09/05/17 08:00 10/05/17 07:59 09/10/17 12:57 4 TAB Albuterol/ Ipratropium (Duoneb) 3 ml BIDR INH 09/05/17 20:00 10/05/17 19:59 09/09/17 19:20 3 ML Sertraline HCl (Zoloft Tab) 25 mg HS PO 09/06/17 21:00 10/06/17 20:59 09/09/17 20:43 25 MG Oxycodone/ Acetaminophen (Percocet 5-325mg Tab) 1 tab Q6 PRN PO 09/06/17 12:00 09/20/17 11:59 09/09/17 05:33 1 TAB Last 24 Hours Test 09/09/17 16:36 09/09/17 20:23 09/10/17 06:19 09/10/17 07:45 Bedside Glucose 103 mg/dl 140 mg/dl 95 mg/dl White Blood Count 8.86 K/uL Red Blood Count 3.35 M/uL Hemoglobin 9.6 g/dL Hematocrit 31.4 % Mean Corpuscular Volume 93.7 fL Mean Corpuscular Hemoglobin 28.7 pg Mean Corpuscular Hemoglobin Concent 30.6 g/dl RDW Standard Deviation 55.6 fL RDW Coefficient of Variation 16.2 % Platelet Count 307 K/uL Mean Platelet Volume 10.2 fL Sodium Level 136 mmol/L Potassium Level 4.8 mmol/L Chloride Level 101 mmol/L Carbon Dioxide Level 21 mmol/L Anion Gap 14.0 mmol/L Blood Urea Nitrogen 83 mg/dl Creatinine 9.61 mg/dl Est Creatinine Clear Calc Drug Dose 8.8 ml/min Estimated GFR () 4.9 Estimated GFR (Non- 4.3 BUN/Creatinine Ratio 8.6 Random Glucose 110 mg/dl Calcium Level 9.3 mg/dl Test 09/10/17 11:55 Bedside Glucose 140 mg/dl Assessment & Plan 51 y/o F w/ ESRD on MWF HD and loss of health care access prior to admission and with chronic wounds ESRD -next HD on 09/12 as outpt or inpt, likelier the former; has transportation; then MWF per routine Anemia of Renal Failure- hgb <10 today >> to resume epo next tx OSIRIS: on renvela 3 with meals; cont to educate importance of adherence Foot Wound/mass for which she is resisting plan for excision: not directly discussed today; very important for close f/u plan w/ wound care after d/c d/t high risk of infection and past nonadherence. concern also as always for calciphylaxis
[2017-09-10] MEDS: ALBUT/IPRATROP 3MG/0.5MG NEB 3 ML VIAL INH SCH (19:36)
[2017-09-10] MEDS: SERTRALINE HCL 50 MG TAB PO SCH (21:16)
[2017-09-10] MEDS: INSULIN GLARGINE SOLOSTAR 100 UNITS/ML 3 ML PEN SC SCH (21:22)
[2017-09-11 07:27] VITALS: PULSE 72; O2SAT 94
[2017-09-11] MEDS: ALBUT/IPRATROP 3MG/0.5MG NEB 3 ML VIAL INH SCH ×2 (07:27→20:30)
[2017-09-11 07:39] VITALS: BP 151/82; PULSE 74; TEMP 36.8; O2SAT 93
[2017-09-11] MEDS: SEVELAMER HYDROCH 800 MG TAB PO SCH ×3 (08:14→16:51)
[2017-09-11] MEDS: NAPHAZOLIN/PHENIRAMIN OPH SOLN 75 DROPS/5 ML BTL OP SCH (08:14)
[2017-09-11] MEDS: BENZONATATE 100MG CAP PO PRN (08:14)
[2017-09-11] MEDS: LACTOBACILLUS ACIDOPHILUS (FLORANEX) TAB PO SCH ×3 (08:14→16:51)
[2017-09-11] MEDS: METOPROLOL TARTRATE 50 MG TAB PO SCH ×2 (08:14→22:21)
[2017-09-11] MEDS: ISOSORBIDE MONONITRATE 60 MG TABCR PO SCH (08:15)
[2017-09-11] MEDS: INSULIN ASPART 100 UNITS/ML 3 ML PEN SC SCH ×4 (08:15→21:00)
--- NOTE | 2017-09-11 12:52 | Progress Note ---
Subjective Date of Service: Sep 11, 2017. Subjective Pt evaluation today including: conversation w/ patient, physical exam, lab review, review of studies, review of inpatient medication list Saw/examined the patient in room 403 She is doing well today had dialysis yesterday still tired, but doing better; tolerating PO diet, no other issues at this time. Problem List Medical Problems: (1) Abdominal pain Status: Acute (2) Acute electrocardiogram changes Status: Acute (3) Back pain Status: Acute (4) Cellulitis Status: Acute (5) Cellulitis of left middle finger Status: Acute (6) Chest pain Status: Acute (7) Chronic kidney disease (CKD) Status: Acute (8) Dialysis AV fistula malfunction Status: Acute (9) Elevated troponin Status: Acute (10) Elevated troponin Status: Acute (11) Elevated troponin Status: Acute (12) End stage renal disease Status: Acute (13) GI bleed Status: Acute (14) Hyperkalemia Status: Acute (15) Hyperkalemia Status: Acute (16) Hypertension Status: Acute (17) Joint effusion Status: Acute (18) Left elbow pain Status: Acute (19) Left sided chest pain Status: Acute (20) Left sided chest pain Status: Acute (21) Limb ischemia Status: Acute (22) Lumbar back pain Status: Acute (23) Medical non-compliance Status: Acute (24) Mid back pain on right side Status: Acute (25) Musculoskeletal strain Status: Acute (26) Obesity Status: Acute (27) PNA (pneumonia) Status: Acute (28) Pneumonia Status: Acute (29) Pulmonary edema Status: Acute (30) Renal failure Status: Acute (31) Sinusitis Status: Acute (32) Strain of lumbar region Status: Acute (33) Substernal chest pain Status: Acute (34) Tendinopathy of right shoulder Status: Acute (35) Trochanteric bursitis, right hip Status: Acute (36) Upper abdominal pain Status: Acute (37) Upper GI bleed Status: Acute (38) Uremia Status: Acute (39) Urinary tract infection Status: Acute (40) Vomiting Status: Acute (41) Vomiting Status: Acute (42) Vomiting Status: Acute (43) Vomiting Status: Acute Review of Systems Constitutional: + weakness, No fever, No chills Respiratory: No cough, No sputum, No shortness of breath Cardiac: No chest pain, No edema, No palpitations Female : No dysuria, No urinary frequency Medications Current Inpatient Medications Medications (Trade) Dose Ordered Sig/Bladimir Route Start Time Stop Time Status Last Admin Dose Admin Insulin Aspart (novoLOG ASPART) SLIDING SCALE G... ACHS SC 09/03/17 06:45 10/03/17 06:59 09/09/17 20:49 3 UNITS Glucose (Glucose 40% Gel) 15-30 GRAMS 15 GRAMS... UD PRN PO 09/03/17 00:00 10/03/17 00:00 Glucose (Glucose Chew Tab) 4-8 Tablets 4 Tabl... UD PRN PO 09/03/17 00:00 10/03/17 00:00 Dextrose (Dextrose 50% 50ML Syringe) 25-50ML OF 50% DW IV FOR... UD PRN IV 09/03/17 00:00 10/03/17 00:00 Glucagon (Glucagon Inj) 1 mg UD PRN SQ 09/03/17 00:00 10/03/17 00:00 Naphazoline HCl/ Pheniramine Maleate (Visine-A Oph Soln) 1 drops DAILY OP 09/03/17 09:00 10/03/17 08:59 09/11/17 08:14 1 DROPS Isosorbide Mononitrate (Imdur Ext Rel Tab) 60 mg QAM PO 09/03/17 09:00 10/03/17 08:59 09/11/17 08:15 60 MG Metoprolol Tartrate (Lopressor Tab) 50 mg BID PO 09/03/17 09:00 10/03/17 08:59 09/11/17 08:14 50 MG Insulin Glargine (Lantus Solostar Pen) 12 units HS SC 09/03/17 21:00 10/03/17 20:59 09/10/17 21:22 12 UNITS Sevelamer HCl (Renagel Tab) 2,400 mg TIDM PO 09/03/17 11:30 10/03/17 11:29 09/11/17 08:14 2,400 MG Acetaminophen (Tylenol Tab) 325 mg Q4H PRN PO 09/04/17 02:45 10/04/17 02:44 09/06/17 02:22 325 MG Benzonatate (Tessalon Perles Cap) 100 mg TID PRN PO 09/04/17 18:15 10/04/17 18:14 09/11/17 08:14 100 MG Al Hydroxide/Mg Trisilicate (Gaviscon Chew Tab) 1 tab Q6 PRN PO 09/04/17 19:15 10/04/17 19:14 09/10/17 00:30 1 TAB Lactobacillus Acidophilus (Floranex Tab) 4 tab TIDM PO 09/05/17 08:00 10/05/17 07:59 09/11/17 08:14 4 TAB Albuterol/ Ipratropium (Duoneb) 3 ml BIDR INH 09/05/17 20:00 10/05/17 19:59 09/11/17 07:27 3 ML Sertraline HCl (Zoloft Tab) 25 mg HS PO 09/06/17 21:00 10/06/17 20:59 09/10/17 21:16 25 MG Oxycodone/ Acetaminophen (Percocet 5-325mg Tab) 1 tab Q6 PRN PO 09/06/17 12:00 09/20/17 11:59 09/09/17 05:33 1 TAB Objective Vital Signs Date Time Temp Pulse Resp B/P (MAP) Pulse Ox O2 Delivery O2 Flow Rate FiO2 09/11/17 09:16 Room Air 09/11/17 07:39 36.8 74 18 151/82 (105) 93 Room Air 09/11/17 07:27 72 16 94 Room Air 09/11/17 01:00 Room Air 09/10/17 23:10 37.5 80 20 147/72 (97) 92 Room Air 09/10/17 21:00 Room Air 09/10/17 19:37 73 16 94 Room Air 09/10/17 15:37 36.7 75 18 119/69 (86) 90 Room Air 09/10/17 15:35 Room Air Physical Exam General Appearance: no apparent distress Respiratory/Chest: no respiratory distress, no accessory muscle use Cardiovascular: regular rate, rhythm, no edema, no murmur Extremities: normal inspection, no pedal edema Neurologic/Psychiatric: no motor/sensory deficits, alert, normal mood/affect Laboratory Results Last 24 Hours Test 09/10/17 16:31 09/10/17 20:19 09/11/17 07:42 09/11/17 11:38 Bedside Glucose 142 mg/dl 107 mg/dl 78 mg/dl 158 mg/dl Assessment and Plan This is a 51 year old female with a PMH of ESRD on HD, insulin dependent DM2, CAD s/p stents, ischemic cardiomyopathy, HLD, PVD, carotid artery stenosis s/p endarterectomy presents secondary to missed dialysis, shortness of breath, fluid overload ESRD on HD Ischemic Cardiomyopathy Acute on Chronic Systolic CHF 09/11 patient is doing well she will continue M-W- dialysis as outpatient as per she will get van rides for free to and from dialysis 09/10 she received dialysis today feeling tired/weak she is now off of Levaquin and all antibiotics at this time no abx. on discharge appreciate case management input - she can receive free van rides to dialysis now cont. Zoloft on discharge d/c in AM (09/11) 09/09 clinically stable she is off of her Levaquin for pneumonia now no further debridement cultures from wound are negative plan for d/c in AM to home 09/08 continue HD M-W-F 09/07 plan today is for HD had an I&D - cultures pending Levaquin for pneumonia nebs for SOB 09/06 plan to continue dialysis as per nephrology 09/05 patient missed three dialysis sessions supposed to have dialysis -- caseworker intake consulted for transportation to dialysis help continued fluid removal with dialysis L Lower Lobe Pneumonia 09/11 all abx. have been stopped at this time 09/08 Levaquin for one more day 09/07 +cough, shortness of breath CXR suggests LLL pneumonia for now, she is on Levaquin, we can continue for 5-7 days cultures pending L Foot Cyst vs. Abscess 09/11 outpatient wound care follow-up no need for further abx. - cultures have been negative 09/08 debridement as per wound care - to have another debridement in AM 09/06 wound care provider consulted for possible drainage 09/05 for now, continue quinolone appreciate ID input, we will continue Levaquin for now wound care consulted, may need this drained monitor; PT/OT HTN secondary to missed dialysis cont. Lopressor Hyperkalemia - resolved due to missed dialysis electrolytes stabilized after consecutive HD tx Insulin Dependent DM2 appreciate pharmacy glycemic control Lantus and sliding scale Depression appreciate psych evaluation started on Zoloft, which we can continue outpatient PCP follow-up DVT ppx SCDs FULL CODE
[2017-09-11] MEDS ORDERED: ISOS60TA2 PO (13:00)
[2017-09-11] MEDS ORDERED: METO50TA16 PO (13:00)
[2017-09-11] MEDS ORDERED: ISOS30TA3 PO (13:00)
[2017-09-11] MEDS ORDERED: PANT40TA PO (13:01)
[2017-09-11] MEDS ORDERED: LPT40 PO (13:01)
[2017-09-11] MEDS ORDERED: ASPEC81 PO (13:02)
[2017-09-11] MEDS ORDERED: SEVE800T7 PO (13:04)
[2017-09-11 15:40] VITALS: BP 130/66; PULSE 69; TEMP 36.9; O2SAT 93
[2017-09-11 20:30] VITALS: PULSE 70; O2SAT 90
[2017-09-11 22:20] VITALS: BP 136/67; PULSE 73
[2017-09-11] MEDS: SERTRALINE HCL 50 MG TAB PO SCH (22:21)
[2017-09-11] MEDS: INSULIN GLARGINE SOLOSTAR 100 UNITS/ML 3 ML PEN SC SCH (22:23)
[2017-09-11 23:10] VITALS: BP 135/76; PULSE 78; TEMP 37; O2SAT 95
[2017-09-12] VITALS (23 sets, daily range): BP systolic 103–145; BP diastolic 57–84; PULSE 56–68; TEMP 36.9–37.1; O2SAT 92–96
[2017-09-12] MEDS: ALUM HYDROX/MAG TRISILICATE CHEW PO PRN (00:55)
[2017-09-12] MEDS: INSULIN ASPART 100 UNITS/ML 3 ML PEN SC SCH ×4 (06:30→20:47)
[2017-09-12 06:37] LABS: TRANSFERRIN 150 mg/dl (200-360)
[2017-09-12] MEDS: ALBUT/IPRATROP 3MG/0.5MG NEB 3 ML VIAL INH SCH ×2 (07:40→19:07)
[2017-09-12] MEDS ORDERED: HEPARIN SOD (PORCINE) 1000 UNIT/ML 10 ML VIAL IV SCH ×2 (08:00)
[2017-09-12] MEDS ORDERED: EPOETIN ALFA 10,000 UNITS/ML VIAL IV. SCH (08:00)
[2017-09-12] MEDS: LACTOBACILLUS ACIDOPHILUS (FLORANEX) TAB PO SCH ×3 (08:58→18:36)
[2017-09-12] MEDS: METOPROLOL TARTRATE 50 MG TAB PO SCH ×2 (08:58→20:45)
[2017-09-12] MEDS: SEVELAMER HYDROCH 800 MG TAB PO SCH ×3 (08:59→18:35)
[2017-09-12] MEDS: ISOSORBIDE MONONITRATE 60 MG TABCR PO SCH (09:00)
[2017-09-12] MEDS: NAPHAZOLIN/PHENIRAMIN OPH SOLN 75 DROPS/5 ML BTL OP SCH (09:00)
[2017-09-12] MEDS: BENZONATATE 100MG CAP PO PRN ×2 (09:29→18:35)
--- NOTE | 2017-09-12 09:40 | Nephrology Progress Note ---
Nephrology Progress Note Date of Service: Sep 12, 2017. Subjective 51 yo female with ESRD with pain in her foot after debridement. continues to have a post nasal drip with some nausea. pt does not feel safe and was hoping to go to rehab. Objective Date Time Temp Pulse Resp B/P (MAP) Pulse Ox O2 Delivery O2 Flow Rate FiO2 09/12/17 07:52 37.0 64 18 130/70 (90) 94 Room Air 09/12/17 07:40 68 16 96 Room Air 09/12/17 00:00 Room Air 09/11/17 23:10 37.0 78 20 135/76 (95) 95 Room Air 09/11/17 22:20 73 136/67 (90) 09/11/17 20:30 70 16 90 Room Air 09/11/17 20:00 Room Air 09/11/17 15:40 36.9 69 18 130/66 (87) 93 Room Air 09/11/17 15:07 Room Air Physical Exam: General-aaox3, obese Eyes-no scleral icterus ENT-mmm Neck-supple Lungs-cta Heart-rrr Abdomen-bs+ s/nt/nd Extremities-no edema, +blisters on left foot Neuro-nonfocal Current Inpatient Medications Medications (Trade) Dose Ordered Sig/Bladimir Route Start Time Stop Time Status Last Admin Dose Admin Insulin Aspart (novoLOG ASPART) SLIDING SCALE G... ACHS SC 09/03/17 06:45 10/03/17 06:59 09/09/17 20:49 3 UNITS Glucose (Glucose 40% Gel) 15-30 GRAMS 15 GRAMS... UD PRN PO 09/03/17 00:00 10/03/17 00:00 Glucose (Glucose Chew Tab) 4-8 Tablets 4 Tabl... UD PRN PO 09/03/17 00:00 10/03/17 00:00 Dextrose (Dextrose 50% 50ML Syringe) 25-50ML OF 50% DW IV FOR... UD PRN IV 09/03/17 00:00 10/03/17 00:00 Glucagon (Glucagon Inj) 1 mg UD PRN SQ 09/03/17 00:00 10/03/17 00:00 Naphazoline HCl/ Pheniramine Maleate (Visine-A Oph Soln) 1 drops DAILY OP 09/03/17 09:00 10/03/17 08:59 09/12/17 09:00 1 DROPS Isosorbide Mononitrate (Imdur Ext Rel Tab) 60 mg QAM PO 09/03/17 09:00 10/03/17 08:59 09/12/17 09:00 60 MG Metoprolol Tartrate (Lopressor Tab) 50 mg BID PO 09/03/17 09:00 10/03/17 08:59 09/12/17 08:58 50 MG Insulin Glargine (Lantus Solostar Pen) 12 units HS SC 09/03/17 21:00 10/03/17 20:59 09/11/17 22:23 12 UNITS Sevelamer HCl (Renagel Tab) 2,400 mg TIDM PO 09/03/17 11:30 10/03/17 11:29 09/12/17 08:59 2,400 MG Acetaminophen (Tylenol Tab) 325 mg Q4H PRN PO 09/04/17 02:45 10/04/17 02:44 09/06/17 02:22 325 MG Benzonatate (Tessalon Perles Cap) 100 mg TID PRN PO 09/04/17 18:15 10/04/17 18:14 09/12/17 09:29 100 MG Al Hydroxide/Mg Trisilicate (Gaviscon Chew Tab) 1 tab Q6 PRN PO 09/04/17 19:15 10/04/17 19:14 09/12/17 00:55 1 TAB Lactobacillus Acidophilus (Floranex Tab) 4 tab TIDM PO 09/05/17 08:00 10/05/17 07:59 09/12/17 08:58 4 TAB Albuterol/ Ipratropium (Duoneb) 3 ml BIDR INH 09/05/17 20:00 10/05/17 19:59 09/12/17 07:40 3 ML Sertraline HCl (Zoloft Tab) 25 mg HS PO 09/06/17 21:00 10/06/17 20:59 09/11/17 22:21 25 MG Oxycodone/ Acetaminophen (Percocet 5-325mg Tab) 1 tab Q6 PRN PO 09/06/17 12:00 09/20/17 11:59 09/09/17 05:33 1 TAB Heparin Sodium (Porcine) (Heparin Iv Bolus) 400 unit Q1H IV 09/12/17 08:00 09/12/17 10:01 Epoetin Christopher (Procrit Inj) 10,000 units TODAY@0800 IV. 09/12/17 08:00 09/12/17 18:00 Last 24 Hours Test 09/11/17 11:38 09/11/17 16:46 09/11/17 20:28 09/12/17 05:22 Bedside Glucose 158 mg/dl 129 mg/dl 125 mg/dl Iron Level 28 mcg/dl Total Iron Binding Capacity 192 mcg/dl Transferrin 150 mg/dl Transferrin % Saturation 13 % Test 09/12/17 07:36 Bedside Glucose 102 mg/dl Assessment & Plan ESRD-for dialysis today. volume status is acceptable. Anemia of Renal Failure-. hg goal of 9.6 at last check. on procrit. will give venofer as well with low tsat.
[2017-09-12] MEDS ORDERED: IRON SUCROSE INJ 100 MG in SYRINGE 0 ML IV SCH (10:00)
--- NOTE | 2017-09-12 18:01 | Progress Note ---
Subjective Date of Service: Sep 12, 2017. Subjective Pt evaluation today including: conversation w/ patient, physical exam, lab review, review of studies, review of inpatient medication list Saw/examined the patient in room 403 receiving OT evaluation +weak, +L foot pain Problem List Medical Problems: (1) Abdominal pain Status: Acute (2) Acute electrocardiogram changes Status: Acute (3) Back pain Status: Acute (4) Cellulitis Status: Acute (5) Cellulitis of left middle finger Status: Acute (6) Chest pain Status: Acute (7) Chronic kidney disease (CKD) Status: Acute (8) Dialysis AV fistula malfunction Status: Acute (9) Elevated troponin Status: Acute (10) Elevated troponin Status: Acute (11) Elevated troponin Status: Acute (12) End stage renal disease Status: Acute (13) GI bleed Status: Acute (14) Hyperkalemia Status: Acute (15) Hyperkalemia Status: Acute (16) Hypertension Status: Acute (17) Joint effusion Status: Acute (18) Left elbow pain Status: Acute (19) Left sided chest pain Status: Acute (20) Left sided chest pain Status: Acute (21) Limb ischemia Status: Acute (22) Lumbar back pain Status: Acute (23) Medical non-compliance Status: Acute (24) Mid back pain on right side Status: Acute (25) Musculoskeletal strain Status: Acute (26) Obesity Status: Acute (27) PNA (pneumonia) Status: Acute (28) Pneumonia Status: Acute (29) Pulmonary edema Status: Acute (30) Renal failure Status: Acute (31) Sinusitis Status: Acute (32) Strain of lumbar region Status: Acute (33) Substernal chest pain Status: Acute (34) Tendinopathy of right shoulder Status: Acute (35) Trochanteric bursitis, right hip Status: Acute (36) Upper abdominal pain Status: Acute (37) Upper GI bleed Status: Acute (38) Uremia Status: Acute (39) Urinary tract infection Status: Acute (40) Vomiting Status: Acute (41) Vomiting Status: Acute (42) Vomiting Status: Acute (43) Vomiting Status: Acute Review of Systems Constitutional: + weakness, No fever, No chills Respiratory: No cough, No sputum, No shortness of breath Cardiac: No chest pain Musculoskeletal: + joint pain Medications Current Inpatient Medications Medications (Trade) Dose Ordered Sig/Bladimir Route Start Time Stop Time Status Last Admin Dose Admin Insulin Aspart (novoLOG ASPART) SLIDING SCALE G... ACHS SC 09/03/17 06:45 10/03/17 06:59 09/09/17 20:49 3 UNITS Glucose (Glucose 40% Gel) 15-30 GRAMS 15 GRAMS... UD PRN PO 09/03/17 00:00 10/03/17 00:00 Glucose (Glucose Chew Tab) 4-8 Tablets 4 Tabl... UD PRN PO 09/03/17 00:00 10/03/17 00:00 Dextrose (Dextrose 50% 50ML Syringe) 25-50ML OF 50% DW IV FOR... UD PRN IV 09/03/17 00:00 10/03/17 00:00 Glucagon (Glucagon Inj) 1 mg UD PRN SQ 09/03/17 00:00 10/03/17 00:00 Naphazoline HCl/ Pheniramine Maleate (Visine-A Oph Soln) 1 drops DAILY OP 09/03/17 09:00 10/03/17 08:59 09/12/17 09:00 1 DROPS Isosorbide Mononitrate (Imdur Ext Rel Tab) 60 mg QAM PO 09/03/17 09:00 10/03/17 08:59 09/12/17 09:00 60 MG Metoprolol Tartrate (Lopressor Tab) 50 mg BID PO 09/03/17 09:00 10/03/17 08:59 09/12/17 08:58 50 MG Insulin Glargine (Lantus Solostar Pen) 12 units HS SC 09/03/17 21:00 10/03/17 20:59 09/11/17 22:23 12 UNITS Sevelamer HCl (Renagel Tab) 2,400 mg TIDM PO 09/03/17 11:30 10/03/17 11:29 09/12/17 12:38 2,400 MG Acetaminophen (Tylenol Tab) 325 mg Q4H PRN PO 09/04/17 02:45 10/04/17 02:44 09/06/17 02:22 325 MG Benzonatate (Tessalon Perles Cap) 100 mg TID PRN PO 09/04/17 18:15 10/04/17 18:14 09/12/17 09:29 100 MG Al Hydroxide/Mg Trisilicate (Gaviscon Chew Tab) 1 tab Q6 PRN PO 09/04/17 19:15 10/04/17 19:14 09/12/17 00:55 1 TAB Lactobacillus Acidophilus (Floranex Tab) 4 tab TIDM PO 09/05/17 08:00 10/05/17 07:59 09/12/17 12:38 4 TAB Albuterol/ Ipratropium (Duoneb) 3 ml BIDR INH 09/05/17 20:00 10/05/17 19:59 09/12/17 07:40 3 ML Sertraline HCl (Zoloft Tab) 25 mg HS PO 09/06/17 21:00 10/06/17 20:59 09/11/17 22:21 25 MG Oxycodone/ Acetaminophen (Percocet 5-325mg Tab) 1 tab Q6 PRN PO 09/06/17 12:00 09/20/17 11:59 09/09/17 05:33 1 TAB Epoetin Christopher (Procrit Inj) 10,000 units TODAY@0800 IV. 09/12/17 08:00 09/12/17 18:00 09/12/17 15:41 10,000 UNITS Iron Sucrose 100 mg/Syringe 5 ml @ 1 mls/min TODAY@1000 IV 09/12/17 10:00 09/12/17 22:00 09/12/17 15:36 1 MLS/MIN Objective Vital Signs Date Time Temp Pulse Resp B/P (MAP) Pulse Ox O2 Delivery O2 Flow Rate FiO2 09/12/17 17:30 60 124/70 09/12/17 17:15 56 103/57 09/12/17 17:00 59 115/62 09/12/17 16:45 60 130/66 09/12/17 16:30 60 130/69 09/12/17 16:15 57 123/61 09/12/17 16:00 Room Air 09/12/17 16:00 60 128/65 09/12/17 15:45 60 123/66 09/12/17 15:30 65 121/60 09/12/17 15:15 57 115/61 09/12/17 15:00 59 125/65 09/12/17 14:45 61 124/67 09/12/17 14:30 60 130/69 09/12/17 14:15 63 137/70 09/12/17 14:09 63 138/74 09/12/17 08:00 94 Room Air 09/12/17 07:52 37.0 64 18 130/70 (90) 94 Room Air 09/12/17 07:40 68 16 96 Room Air 09/12/17 00:00 Room Air 09/11/17 23:10 37.0 78 20 135/76 (95) 95 Room Air 09/11/17 22:20 73 136/67 (90) 09/11/17 20:30 70 16 90 Room Air 09/11/17 20:00 Room Air Physical Exam General Appearance: no apparent distress Respiratory/Chest: no respiratory distress, no accessory muscle use Cardiovascular: regular rate, rhythm, no edema, no murmur Extremities: normal inspection, no pedal edema Laboratory Results Last 24 Hours Test 09/11/17 20:28 09/12/17 05:22 09/12/17 07:36 09/12/17 11:58 Bedside Glucose 125 mg/dl 102 mg/dl 94 mg/dl Iron Level 28 mcg/dl Total Iron Binding Capacity 192 mcg/dl Transferrin 150 mg/dl Transferrin % Saturation 13 % Assessment and Plan This is a 51 year old female with a PMH of ESRD on HD, insulin dependent DM2, CAD s/p stents, ischemic cardiomyopathy, HLD, PVD, carotid artery stenosis s/p endarterectomy presents secondary to missed dialysis, shortness of breath, fluid overload 09/12 patient is doing okay plan for [facility] in AM HD on -- given IV Venofer as per nephrology today ESRD on HD Ischemic Cardiomyopathy Acute on Chronic Systolic CHF 09/11 patient is doing well she will continue M-W-F dialysis as outpatient as per she will get van rides for free to and from dialysis 09/10 she received dialysis today feeling tired/weak she is now off of Levaquin and all antibiotics at this time no abx. on discharge appreciate case management input - she can receive free van rides to dialysis now cont. Zoloft on discharge d/c in AM (09/11) 09/09 clinically stable she is off of her Levaquin for pneumonia now no further debridement cultures from wound are negative plan for d/c in AM to home 09/08 continue HD M-W-F 09/07 plan today is for HD had an I&D - cultures pending Levaquin for pneumonia nebs for SOB 09/06 plan to continue dialysis as per nephrology 09/05 patient missed three dialysis sessions supposed to have dialysis -- wrapper caser consulted for transportation to dialysis help continued fluid removal with dialysis L Lower Lobe Pneumonia 09/11 all abx. have been stopped at this time 09/08 Levaquin for one more day 09/07 +cough, shortness of breath CXR suggests LLL pneumonia for now, she is on Levaquin, we can continue for 5-7 days cultures pending L Foot Cyst vs. Abscess 09/11 outpatient wound care follow-up no need for further abx. - cultures have been negative 09/08 debridement as per wound care - to have another debridement in AM 09/06 wound care provider consulted for possible drainage 09/05 for now, continue quinolone appreciate ID input, we will continue Levaquin for now wound care consulted, may need this drained monitor; PT/OT HTN secondary to missed dialysis cont. Lopressor Hyperkalemia - resolved due to missed dialysis electrolytes stabilized after consecutive HD tx Insulin Dependent DM2 appreciate pharmacy glycemic control Lantus and sliding scale Depression appreciate psych evaluation started on Zoloft, which we can continue outpatient PCP follow-up DVT ppx SCDs FULL CODE
[2017-09-12] MEDS: SERTRALINE HCL 50 MG TAB PO SCH (20:46)
[2017-09-12] MEDS: INSULIN GLARGINE SOLOSTAR 100 UNITS/ML 3 ML PEN SC SCH (20:49)
[2017-09-13] MEDS: INSULIN ASPART 100 UNITS/ML 3 ML PEN SC SCH ×4 (06:30→20:57)
[2017-09-13] MEDS: ALBUT/IPRATROP 3MG/0.5MG NEB 3 ML VIAL INH SCH ×2 (07:12→19:12)
[2017-09-13 07:13] VITALS: PULSE 77; O2SAT 96
[2017-09-13 08:24] VITALS: BP 152/89; PULSE 72; TEMP 36.7; O2SAT 94
[2017-09-13] MEDS: NAPHAZOLIN/PHENIRAMIN OPH SOLN 75 DROPS/5 ML BTL OP SCH (09:51)
[2017-09-13] MEDS: LACTOBACILLUS ACIDOPHILUS (FLORANEX) TAB PO SCH ×3 (09:52→18:07)
[2017-09-13] MEDS: ISOSORBIDE MONONITRATE 60 MG TABCR PO SCH (09:53)
[2017-09-13] MEDS: METOPROLOL TARTRATE 50 MG TAB PO SCH ×2 (09:54→20:56)
[2017-09-13] MEDS: SEVELAMER HYDROCH 800 MG TAB PO SCH ×3 (09:55→18:08)
[2017-09-13] MEDS ORDERED: ZLF50 PO (11:39)
--- NOTE | 2017-09-13 11:42 | Progress Note ---
Internal Med Progress Note Date of Service: Sep 13, 2017. Provider Documentation: SUBJECTIVE: No acute distress. Patient denies acute pain. Discussed with patient about disposition to rehab center OBJECTIVE: Exam: General Appearance: no apparent distress, + obese Head: normocephalic, atraumatic Eyes: EOMI ENT: normal ENT inspection, hearing grossly normal, pharynx normal Neck: supple, trachea midline Respiratory/Chest: clear to auscultation bilaterally Cardiovascular: regular rate, rhythm Abdomen/GI: normal bowel sounds, non tender, soft, no organomegaly, no pulsatile mass Back: normal inspection, no CVA tenderness, no muscle spasm, normal range of motion Extremities/Musculoskelatal: no edema of lower extremities Neurologic/Psych: alert, oriented x 3 ASSESSMENT & PLAN: This is a 51 year old female with a PMH of ESRD on HD, insulin dependent DM2, CAD s/p stents, ischemic cardiomyopathy, HLD, PVD, carotid artery stenosis with endarterectomy presents secondary to missed dialysis with shortness of breath and fluid overload and hyperkalemia. Patient also treated for left lower lobe pneumonia, diabetes, left foot cyst Patient is to be discharged [facility] when a [facility] bed is available for physical rehab. Patient is to continue dialysis every Tuesday, Tuesday and Tuesday. Patient should continue following with nephrology service as outpatient while on dialysis. She has also received IV Venofer when inpatient Discharge Diagnosis and plans includes: ESRD on HD - continue dialysis every Tuesday, Tuesday and Tuesday. Patient should continue following with nephrology service as outpatient while on dialysis. Continue Sevelamer Hyperkalemia - resolved due to missed dialysis at home HTN secondary to missed dialysis at home - continue with Lopressor Ischemic Cardiomyopathy Acute on Chronic Systolic CHF Left Lower Lobe Pneumonia (was treated with Levaquin as inpatient) Depression - Patient was evaluated by psychiatry as inpatient and should continue sertraline 25 mg daily for depression Insulin Dependent DM2 - continue Lantus 12 units qhs Left Foot Cyst with debridement in the hospital and cultures have been negative Vital Signs: Date Time Temp Pulse Resp B/P (MAP) Pulse Ox O2 Delivery O2 Flow Rate FiO2 09/13/17 08:24 36.7 72 15 152/89 (110) 94 09/13/17 08:00 Room Air 09/13/17 07:13 77 16 96 Room Air 09/13/17 00:00 Room Air 09/12/17 23:36 37.0 64 16 128/71 (90) 92 Room Air 09/12/17 19:07 66 16 96 Room Air 09/12/17 18:30 36.9 66 16 145/84 (104) 96 Room Air 09/12/17 18:14 37.1 65 133/67 (89) 09/12/17 17:30 60 124/70 09/12/17 17:15 56 103/57 09/12/17 17:00 59 115/62 09/12/17 16:45 60 130/66 09/12/17 16:30 60 130/69 09/12/17 16:15 57 123/61 09/12/17 16:00 Room Air 09/12/17 16:00 60 128/65 09/12/17 15:45 60 123/66 09/12/17 15:30 65 121/60 09/12/17 15:15 57 115/61 09/12/17 15:00 59 125/65 09/12/17 14:45 61 124/67 09/12/17 14:30 60 130/69 09/12/17 14:15 63 137/70 09/12/17 14:09 63 138/74 09/12/17 14:00 37.0 66 139/78 (98) Lab Results: Results Past 24 Hours Test 09/12/17 18:29 09/12/17 20:19 09/13/17 07:52 09/13/17 11:45 Range/Units Bedside Glucose 78 158 80 99 70-90 mg/dl
--- NOTE | 2017-09-13 12:18 | Discharge Instructions ---
Discharge Instructions Date of Service Sep 14, 2017. Admission Reason for Admission: Esrd On Dialysis, Hyperkalemia Discharge Discharge Diagnosis / Problem: ESRD on dialysis,Hyperkalemia,Left Lower Lobe Pneumonia,Left foot cyst, DM Discharge Goals Goal(s): Improve function, Increase independence, Improve disease control Activity Recommendations Activity Limitations: per Instructions/Follow-up section Shower/Bathe: no limitations . Instructions / Follow-Up Instructions / Follow-Up This is a 51 year old female with a PMH of ESRD on HD, insulin dependent DM2, CAD s/p stents, ischemic cardiomyopathy, HLD, PVD, carotid artery stenosis with endarterectomy presents secondary to missed dialysis with shortness of breath and fluid overload and hyperkalemia. Patient also treated for left lower lobe pneumonia, diabetes, left foot cyst Patient is to be discharged [facility] when a [facility] bed is available for physical rehab. Patient is to continue dialysis every Tuesday, Tuesday and Tuesday. Patient should continue following with nephrology service as outpatient while on dialysis. She has also received IV Venofer when inpatient Discharge Diagnosis and plans includes: ESRD on HD - continue dialysis every Tuesday, Tuesday and Tuesday. Patient should continue following with nephrology service as outpatient while on dialysis. Continue Sevelamer Hyperkalemia - resolved due to missed dialysis at home HTN secondary to missed dialysis at home - continue with Lopressor Ischemic Cardiomyopathy Acute on Chronic Systolic CHF Left Lower Lobe Pneumonia (was treated with Levaquin as inpatient) Depression - Patient was evaluated by psychiatry as inpatient and should continue sertraline 25 mg daily for depression Insulin Dependent DM2 - continue Lantus 12 units qhs Left Foot Cyst with debridement in the hospital and cultures have been negative Current Hospital Diet Patient's current hospital diet: Diabetes Type 2 Diet, Renal Diet Discharge Diet Recommended Diet: Diabetes Type 2 Diet, Renal Diet Pending Studies Studies pending at discharge: no Laboratory Results 09/10/17 06:19 09/10/17 06:19 Test 09/02/17 22:07 09/02/17 22:23 09/03/17 06:40 09/04/17 09:49 Direct Bilirubin 0.3 mg/dl (0-0.2) Thyroid Stimulating Hormone (TSH) 1.080 uIu/ml (0.300-4.500) Ethyl Alcohol mg/dL < 3.0 mg/dl (0-3) Urine Color YELLOW Urine Appearance CLOUDY (CLEAR) Urine pH 5.5 (4.5-7.5) Urine Specific Reading 1.018 (1.000-1.030) Urine Protein 3+ (NEG) Urine Glucose (UA) NEG (NEG) Urine Ketones TRACE (NEG) Urine Occult Blood 1+ (NEG) Urine Nitrite NEG (NEG) Urine Bilirubin NEG (NEG) Urine Urobilinogen NEG (NEG) Urine Leukocyte Esterase TRACE (NEG) Urine WBC (Auto) 10-30 /hpf (0-5) Urine RBC (Auto) 0-4 /hpf (0-4) Urine Hyaline Casts (Auto) 0 /lpf (0-5) Urine Epithelial Cells (Auto) >30 /lpf (0-5) Urine Bacteria (Auto) NEG (NEG) Urine Pathogenic Casts /lpf (0) Urine Yeast (Auto) PRESENT (NONE PRSENT) Urine Opiates Screen NEG (NEG) Urine Methadone, Qualitative NEG (NEG) Urine Barbiturates NEG (NEG) Urine Phencyclidine (PCP) Level NEG (NEG) Ur Amphetamine/Methamphetamine NEG (NEG) MDMA (Ecstasy) Screen NEG (NEG) Urine Benzodiazepines Screen NEG (NEG) Urine Cocaine Metabolite NEG (NEG) Urine Marijuana (THC) NEG (NEG) Influenza Type A Antigen Neg for Influ A (NEG) Influenza Type B Antigen Neg for Influ B (NEG) Immature Granulocyte % (Auto) 0.4 % White Blood Count 14.82 K/uL (4.8-10.8) Red Blood Count 3.60 M/uL (4.2-5.4) Hemoglobin 10.4 g/dL (12.0-16.0) Hematocrit 32.6 % (37-47) Mean Corpuscular Volume 90.6 fL (80-100) Mean Corpuscular Hemoglobin 28.9 pg (25-34) Mean Corpuscular Hemoglobin Concent 31.9 g/dl (32-36) Platelet Count 354 K/uL (130-400) Mean Platelet Volume 10.7 fL (7.4-10.4) Neutrophils (%) (Auto) 80.5 % Lymphocytes (%) (Auto) 7.7 % Monocytes (%) (Auto) 9.9 % Eosinophils (%) (Auto) 1.3 % Basophils (%) (Auto) 0.2 % Neutrophils # (Auto) 11.93 K/uL (1.4-6.5) Lymphocytes # (Auto) 1.14 K/uL (1.2-3.4) Monocytes # (Auto) 1.46 K/uL (0.11-0.59) Eosinophils # (Auto) 0.20 K/uL (0-0.5) Basophils # (Auto) 0.03 K/uL (0-0.2) Immature Granulocyte # (Auto) 0.06 K/uL (0.00-0.02) Total Bilirubin 0.4 mg/dl (0.2-1) Aspartate Amino Transf (AST/SGOT) 9 U/L (15-37) Alanine Aminotransferase (ALT/SGPT) 9 U/L (12-78) Alkaline Phosphatase 75 U/L (45-117) Total Protein 7.2 gm/dl (6.4-8.2) Albumin 2.1 gm/dl (3.4-5.0) Globulin 5.1 gm/dl (2.5-4.0) Albumin/Globulin Ratio 0.4 (0.9-2) Procalcitonin 8.67 ng/ml (0-0.5) Hepatitis B Surface Antigen NEG (NEG) Hepatitis B Surface Antibody POS Test 09/08/17 05:31 09/10/17 06:19 09/12/17 05:22 09/13/17 11:45 Phosphorus Level 4.9 mg/dl (2.5-4.9) Magnesium Level 2.2 mg/dl (1.8-2.4) Red Blood Count 3.35 M/uL (4.2-5.4) Mean Corpuscular Volume 93.7 fL (80-100) Mean Corpuscular Hemoglobin 28.7 pg (25-34) Mean Corpuscular Hemoglobin Concent 30.6 g/dl (32-36) RDW Standard Deviation 55.6 fL (36.4-46.3) RDW Coefficient of Variation 16.2 % (11.5-14.5) Mean Platelet Volume 10.2 fL (7.4-10.4) Anion Gap 14.0 mmol/L (3-11) Est Creatinine Clear Calc Drug Dose 8.8 ml/min Estimated GFR () 4.9 Estimated GFR (Non- 4.3 BUN/Creatinine Ratio 8.6 (10-20) Calcium Level 9.3 mg/dl (8.5-10.1) Iron Level 28 mcg/dl (35-150) Total Iron Binding Capacity 192 mcg/dl (250-450) Transferrin 150 mg/dl (200-360) Transferrin % Saturation 13 % (15-50) Bedside Glucose 99 mg/dl (70-90) Date/Time Source Procedure Growth Status 09/03/17 07:43 Blood Blood Culture - Final NO GROWTH Complete 09/03/17 01:15 Nasal MRSA DNA Surveillance Screen - Final Specimen Negative for MRSA by DNA Probe Complete 09/06/17 22:55 Stool C.difficile Toxin B Gene (PCR) - Final No C. difficile toxin B gene detected Complete 09/06/17 08:35 Sputum Expectorated Sputum Gram Stain - Final Complete 09/06/17 08:35 Sputum Expectorated Sputum Sputum Culture - Final NO GROWTH Complete 09/07/17 11:30 Drainage-Deep Ankle Left Gram Stain - Final Complete 09/07/17 11:30 Drainage-Deep Ankle Left Wound Culture - Final NO GROWTH Complete Medical Emergencies . Who to Call and When: Medical Emergencies: If at any time you feel your situation is an emergency, please call 911 immediately. . Non-Emergent Contact Non-Emergency issues call your: Primary Care Provider, Tobacco Stripping Machine Operator . . "Provider Documentation" section prepared by Ruben Avery. . VTE Core Measure Inpt VTE Proph given/why not?: SCD's
--- NOTE | 2017-09-13 12:21 | Discharge Summary ---
Discharge Summary Date of Service Sep 13, 2017. Discharge Summary Admission Date: Sep 02, 2017 at 23:55 Discharge Date: Sep 14, 2017 Discharge Disposition: Rehab ([facility]) Principal Diagnosis: ESRD on dialysis,Hyperkalemia,Left Lower Lobe Pneumonia,Left foot cyst, DM, Depression Secondary Diagnoses/Problems: Ischemic Cardiomyopathy, Acute on Chronic Systolic CHF Consultations: Nephrology - Dr. Prakash ; Psychiatry Medication Reconciliation New Medications: Mupirocin (Mupirocin) 66 Appln/22 Gm Oint 1 APPLN EXT BID for 5 Days, #1 UNIT apply to scab on nose Ondansetron (Ondansetron Odt) 1 Homepack Ea 4 MG PO Q4H PRN for Nausea for 5 Days, #1 EA Sertraline HCl (Sertraline HCl) 50 Mg Tab 25 MG PO HS for 30 Days, #30 TAB Continued Medications: Aspirin (Aspirin EC Low Dose) 81 Mg Ectab 81 MG PO DAILY Atorvastatin (Lipitor) 40 Mg Tab 40 MG PO DAILY Insulin Glargine (Lantus Solostar) 100 Unit/Ml Inj 12 UNITS SQ HS Isosorbide Mononitrate (Imdur Ext Rel) 60 Mg Tab 1 TAB PO DAILY for 30 Days, #30 TAB 5 Refills Loratadine (Claritin Childrens) 5 Mg Chw 10 MG PO BID Metoprolol Tartrate (Lopressor) (Lopressor) 50 Mg Tab 50 MG PO BID, TAB Sevelamer Carbonate (Renvela) 800 Mg Tab 3 TAB PO TID for 90 Days, #810 TAB 3 Refills Discontinued Medications: Isosorbide Mononitrate Ext Rel (Imdur Ext Rel) 30 Mg Ertab 1 TAB PO DAILY for 30 Days, #30 TAB 5 Refills Mupirocin 2% (Bactroban 2%) 30 Gm Cr 1 APPLN EXT TID Pantoprazole Sodium (Protonix) 40 Mg Tab 40 MG PO DAILY, #30 TAB Admission Information HPI (per Admitting provider): This is a 51 year old M who presents to the emergency with respiratory symptoms of shortness of breath and cough secondary to missing 3 dialysis sessions vs pneumonia. Patient was brought in to the hospital by her family member. Patient reports that she usually gets dialysis M/W/F however she could not get to the past 3 dialysis sessions since she could not obtain transportation from her family members or friends. Patient reports that she depends upon others also for taking medications as she has visual impairments and cannot read the prescription bottles. Patient reports being off of her prescribed medications for a long while because other people in her life have not helped her with her medications and that she has no home health aides. When patient came to the emergency room, she was found to have hyperkalemia of 6.7. Was given Insulin, Calcium gluconate, and Kayexalate by the ED doctor to treat the hyperkalemia. CXR with Left upper lobe and left basilar airspace opacities which likely represent a pneumonia and mild pulmonary vascular congestion and a trace left pleural effusion. Zosyn and Vancomycin was ordered by ED doctor to treat for pneumonia. Hospitalist doctor sought nephrology senior application security consultant Dr. Prakash to help with obtaining dialysis session. Patient boarding in the ICU reddy and completing dialysis with 3 liters removed. Physical Exam (per Admitting): General Appearance: no apparent distress, + obese Head: normocephalic, atraumatic Eyes: EOMI, + pertinent finding (redness of conjuctiva in both eyes) ENT: normal ENT inspection, hearing grossly normal, pharynx normal Neck: supple, thyroid normal, trachea midline Respiratory/Chest: chest non-tender, + crackles Cardiovascular: regular rate, rhythm, + pertinent finding (bilateral lower extremity edema) Abdomen/GI: normal bowel sounds, non tender, soft, no organomegaly, no pulsatile mass Back: normal inspection, no CVA tenderness, no muscle spasm, normal range of motion Extremities/Musculoskelatal: + pertinent finding (bilateral lower extremity edema) Neurologic/Psych: no motor/sensory deficits, alert, oriented x 3 Skin: normal color, warm/dry, no rash Hospital Course This is a 51 year old female with a PMH of ESRD on HD, insulin dependent DM2, CAD s/p stents, ischemic cardiomyopathy, HLD, PVD, carotid artery stenosis with endarterectomy presents secondary to missed dialysis with shortness of breath and fluid overload and hyperkalemia. Patient also treated for left lower lobe pneumonia, diabetes, left foot cyst Patient is to be discharged [facility] when a [facility] bed is available for physical rehab. Patient is to continue dialysis every Tuesday, Tuesday and Tuesday. Patient should continue following with nephrology service as outpatient while on dialysis. She has also received IV Venofer when inpatient Discharge Diagnosis and plans includes: ESRD on HD - continue dialysis every Tuesday, Tuesday and Tuesday. Patient should continue following with nephrology service as outpatient while on dialysis. Continue Sevelamer Hyperkalemia - resolved due to missed dialysis at home HTN secondary to missed dialysis at home - continue with Lopressor Ischemic Cardiomyopathy Acute on Chronic Systolic CHF Left Lower Lobe Pneumonia (was treated with Levaquin as inpatient) Depression - Patient was evaluated by psychiatry as inpatient and should continue sertraline 25 mg daily for depression Insulin Dependent DM2 - continue Lantus 12 units qhs Left Foot Cyst with debridement in the hospital and cultures have been negative Total time spent on discharge = 60 minutes This includes examination of the patient, discharge planning, medication reconciliation, and communication with other providers. Discharge Instructions see above
[2017-09-13] MEDS: ONDANSETRON 4MG OD TAB PO PRN ×2 (14:07→18:08)
[2017-09-13 15:14] VITALS: BP 118/69; PULSE 69; TEMP 36.8; O2SAT 93
[2017-09-13 19:12] VITALS: PULSE 68; O2SAT 95
[2017-09-13 20:53] VITALS: BP 142/71; PULSE 70
[2017-09-13] MEDS: SERTRALINE HCL 50 MG TAB PO SCH (20:56)
[2017-09-13] MEDS: INSULIN GLARGINE SOLOSTAR 100 UNITS/ML 3 ML PEN SC SCH (20:59)
[2017-09-13 23:26] VITALS: BP 129/65; PULSE 67; TEMP 37; O2SAT 90
[2017-09-14] VITALS (16 sets, daily range): BP systolic 94–140; BP diastolic 52–76; PULSE 58–70; TEMP 36.6–37; O2SAT 90–94
[2017-09-14] MEDS: ONDANSETRON 4MG OD TAB PO PRN ×4 (03:09→17:59)
[2017-09-14] MEDS: ALBUT/IPRATROP 3MG/0.5MG NEB 3 ML VIAL INH SCH (06:59)
[2017-09-14] MEDS: METOPROLOL TARTRATE 50 MG TAB PO SCH (09:02)
[2017-09-14] MEDS: ISOSORBIDE MONONITRATE 60 MG TABCR PO SCH (09:02)
[2017-09-14] MEDS: SEVELAMER HYDROCH 800 MG TAB PO SCH ×4 (09:03→17:18)
[2017-09-14] MEDS: LACTOBACILLUS ACIDOPHILUS (FLORANEX) TAB PO SCH ×3 (09:04→17:16)
[2017-09-14] MEDS: NAPHAZOLIN/PHENIRAMIN OPH SOLN 75 DROPS/5 ML BTL OP SCH (09:04)
[2017-09-14] MEDS: INSULIN ASPART 100 UNITS/ML 3 ML PEN SC SCH ×3 (09:09→16:30)
[2017-09-14] MEDS: BENZONATATE 100MG CAP PO PRN (09:12)
--- NOTE | 2017-09-14 09:18 | Nephrology Progress Note ---
Nephrology Progress Note Date of Service: Sep 14, 2017. Subjective 51 yo female with ESRD with pain in her foot after debridement and has some drainage. pt awaiting placement in rehab. pt eats well but then develops nausea. pt inquiring about having the other wound on the top of her foot debrided. Objective Date Time Temp Pulse Resp B/P (MAP) Pulse Ox O2 Delivery O2 Flow Rate FiO2 09/14/17 08:03 36.8 63 16 131/76 (94) 94 Room Air 09/14/17 07:00 63 14 90 Room Air 09/14/17 01:00 Room Air 09/13/17 23:26 37.0 67 20 129/65 (86) 90 Room Air 09/13/17 20:53 70 142/71 (94) 09/13/17 20:00 Room Air 09/13/17 19:12 68 16 95 Room Air 09/13/17 16:00 Room Air 09/13/17 15:14 36.8 69 16 118/69 (85) 93 Physical Exam: General-aaox3, obese Eyes-no scleral icterus ENT-mmm Neck-supple Lungs-clear Heart-regular Abdomen-bs+ s/nt/nd Extremities-no edema, +blisters on left foot Neuro-nonfocal Current Inpatient Medications Medications (Trade) Dose Ordered Sig/Bladimir Route Start Time Stop Time Status Last Admin Dose Admin Insulin Aspart (novoLOG ASPART) SLIDING SCALE G... ACHS SC 09/03/17 06:45 10/03/17 06:59 09/09/17 20:49 3 UNITS Glucose (Glucose 40% Gel) 15-30 GRAMS 15 GRAMS... UD PRN PO 09/03/17 00:00 10/03/17 00:00 Glucose (Glucose Chew Tab) 4-8 Tablets 4 Tabl... UD PRN PO 09/03/17 00:00 10/03/17 00:00 Dextrose (Dextrose 50% 50ML Syringe) 25-50ML OF 50% DW IV FOR... UD PRN IV 09/03/17 00:00 10/03/17 00:00 Glucagon (Glucagon Inj) 1 mg UD PRN SQ 09/03/17 00:00 10/03/17 00:00 Naphazoline HCl/ Pheniramine Maleate (Visine-A Oph Soln) 1 drops DAILY OP 09/03/17 09:00 10/03/17 08:59 09/14/17 09:04 1 DROPS Isosorbide Mononitrate (Imdur Ext Rel Tab) 60 mg QAM PO 09/03/17 09:00 10/03/17 08:59 09/14/17 09:02 60 MG Metoprolol Tartrate (Lopressor Tab) 50 mg BID PO 09/03/17 09:00 10/03/17 08:59 09/14/17 09:02 50 MG Insulin Glargine (Lantus Solostar Pen) 12 units HS SC 09/03/17 21:00 10/03/17 20:59 09/13/17 20:59 12 UNITS Sevelamer HCl (Renagel Tab) 2,400 mg TIDM PO 09/03/17 11:30 10/03/17 11:29 09/14/17 09:03 2,400 MG Acetaminophen (Tylenol Tab) 325 mg Q4H PRN PO 09/04/17 02:45 10/04/17 02:44 09/06/17 02:22 325 MG Benzonatate (Tessalon Perles Cap) 100 mg TID PRN PO 09/04/17 18:15 10/04/17 18:14 09/14/17 09:12 100 MG Al Hydroxide/Mg Trisilicate (Gaviscon Chew Tab) 1 tab Q6 PRN PO 09/04/17 19:15 10/04/17 19:14 09/12/17 00:55 1 TAB Lactobacillus Acidophilus (Floranex Tab) 4 tab TIDM PO 09/05/17 08:00 10/05/17 07:59 09/14/17 09:04 4 TAB Albuterol/ Ipratropium (Duoneb) 3 ml BIDR INH 09/05/17 20:00 10/05/17 19:59 09/14/17 06:59 3 ML Sertraline HCl (Zoloft Tab) 25 mg HS PO 09/06/17 21:00 10/06/17 20:59 09/13/17 20:56 25 MG Oxycodone/ Acetaminophen (Percocet 5-325mg Tab) 1 tab Q6 PRN PO 09/06/17 12:00 09/20/17 11:59 09/09/17 05:33 1 TAB Ondansetron HCl (Zofran Odt) 4 mg Q4H PRN PO 09/13/17 13:30 10/13/17 13:29 09/14/17 09:07 4 MG Last 24 Hours Test 09/13/17 11:45 09/13/17 16:31 09/13/17 19:51 09/14/17 07:39 Bedside Glucose 99 mg/dl 131 mg/dl 134 mg/dl 78 mg/dl Test 09/14/17 07:41 Assessment & Plan ESRD-for dialysis today. volume status is acceptable. labs pending. Anemia of Renal Failure-continue venofer and procrit and will give dose of vitamin d analogue with hx of high pth levels.
[2017-09-14] MEDS ORDERED: PARICALCITOL 5 MCG/ML VIAL (ZEMPLAR) IV. ONE (11:00)
[2017-09-14] MEDS ORDERED: EPOETIN ALFA 10,000 UNITS/ML VIAL IV. ONE (11:00)
[2017-09-14] MEDS ORDERED: IRON SUCROSE INJ 100 MG in SYRINGE 0 ML IV SCH (11:00)
[2017-09-14] MEDS ORDERED: BCTRO EXT (14:05)
[2017-09-14] MEDS ORDERED: ZFRODT4HP PO (14:05)
--- NOTE | 2017-09-14 14:10 | Progress Note ---
Internal Med Progress Note Date of Service: Sep 14, 2017. Provider Documentation: SUBJECTIVE: No acute distress. Patient denies acute pain. Discussed with patient about disposition to rehab center today after dialysis OBJECTIVE: Exam: General Appearance: no apparent distress, + obese Head: normocephalic, atraumatic Eyes: EOMI ENT: normal ENT inspection, hearing grossly normal, pharynx normal Neck: supple, trachea midline Respiratory/Chest: clear to auscultation bilaterally Cardiovascular: regular rate, rhythm Abdomen/GI: normal bowel sounds, non tender, soft, no organomegaly, no pulsatile mass Back: normal inspection, no CVA tenderness, no muscle spasm, normal range of motion Extremities/Musculoskelatal: no edema of lower extremities Neurologic/Psych: alert, oriented x 3 ASSESSMENT & PLAN: This is a 51 year old female with a PMH of ESRD on HD, insulin dependent DM2, CAD s/p stents, ischemic cardiomyopathy, HLD, PVD, carotid artery stenosis with endarterectomy presents secondary to missed dialysis with shortness of breath and fluid overload and hyperkalemia. Patient also treated for left lower lobe pneumonia, diabetes, left foot cyst Patient is to be discharged [facility] when a [facility] bed is available for physical rehab. Patient is to continue dialysis every Tuesday, Tuesday and Tuesday. Patient should continue following with nephrology service as outpatient while on dialysis. She has also received IV Venofer when inpatient Discharge Diagnosis and plans includes: ESRD on HD - continue dialysis every Tuesday, Tuesday and Tuesday. Patient should continue following with nephrology service as outpatient while on dialysis. Continue Sevelamer Hyperkalemia - resolved due to missed dialysis at home HTN secondary to missed dialysis at home - continue with Lopressor Ischemic Cardiomyopathy Acute on Chronic Systolic CHF Left Lower Lobe Pneumonia (was treated with Levaquin as inpatient) Depression - Patient was evaluated by psychiatry as inpatient and should continue sertraline 25 mg daily for depression Insulin Dependent DM2 - continue Lantus 12 units qhs Left Foot Cyst with debridement in the hospital and cultures have been negative Discharge to [facility] with bed confirmed on 09/14/17 Patient will go to [facility] after dialysis session completed on 09/14/17 Vital Signs: Date Time Temp Pulse Resp B/P (MAP) Pulse Ox O2 Delivery O2 Flow Rate FiO2 09/14/17 14:00 62 111/67 09/14/17 13:45 59 115/59 09/14/17 13:29 60 122/66 09/14/17 09:00 Room Air 09/14/17 08:03 36.8 63 16 131/76 (94) 94 Room Air 09/14/17 07:00 63 14 90 Room Air 09/14/17 01:00 Room Air 09/13/17 23:26 37.0 67 20 129/65 (86) 90 Room Air 09/13/17 20:53 70 142/71 (94) 09/13/17 20:00 Room Air 09/13/17 19:12 68 16 95 Room Air 09/13/17 16:00 Room Air 09/13/17 15:14 36.8 69 16 118/69 (85) 93 Lab Results: Results Past 24 Hours Test 09/13/17 16:31 09/13/17 19:51 09/14/17 07:39 09/14/17 07:41 Range/Units Bedside Glucose 131 134 78 70-90 mg/dl Test 09/14/17 11:43 Range/Units Bedside Glucose 104 70-90 mg/dl
[2017-09-14] MEDS ORDERED: MUPIROCIN 2% OINT 22 GM TUBE EXT SCH (20:00)
== END 2017-09-14 17:45 | DRG 291 ==
LOC: EDBD 19:30 → C.EDA 19:31 → C.MSICU 23:55 → EDBEDREQ 09-03 00:02 → ENRESERV 09-03 00:19 → EDBEDREQ 09-04 13:53 → ENRESERV 09-04 14:59 → C.4E 09-04 15:46
PROVIDERS: ADMIT Hospitalist; ATTEND Hospitalist
PROC: 0J9P0ZX Drainage of Left Lower Leg Subcutaneous Tissue and Fascia, Open Approach, Diagnostic (ICD-10-PCS; principal; 2017-09-07)
DX: I13.2 Hypertensive heart and chronic kidney disease with heart failure and with stage 5 chronic kidney disease, or end stage renal disease (principal); N18.6 End stage renal disease; I50.23 Acute on chronic systolic (congestive) heart failure; J18.1 Lobar pneumonia, unspecified organism; L02.416 Cutaneous abscess of left lower limb; L02.612 Cutaneous abscess of left foot; E87.79 Other fluid overload; Z99.2 Dependence on renal dialysis; Z91.15 Patient's noncompliance with renal dialysis; E11.22 Type 2 diabetes mellitus with diabetic chronic kidney disease; E11.40 Type 2 diabetes mellitus with diabetic neuropathy, unspecified; E11.628 Type 2 diabetes mellitus with other skin complications; R22.42 Localized swelling, mass and lump, left lower limb; M79.644 Pain in right finger(s); E87.5 Hyperkalemia; E83.52 Hypercalcemia; D63.1 Anemia in chronic kidney disease; N25.0 Renal osteodystrophy; I25.5 Ischemic cardiomyopathy; F32.9 Major depressive disorder, single episode, unspecified; I25.10 Atherosclerotic heart disease of native coronary artery without angina pectoris; Z91.130 Patient's unintentional underdosing of medication regimen due to age-related debility; Z95.5 Presence of coronary angioplasty implant and graft; Z86.14 Personal history of Methicillin resistant Staphylococcus aureus infection; Z86.19 Personal history of other infectious and parasitic diseases; Z87.891 Personal history of nicotine dependence; Z79.4 Long term (current) use of insulin; Z91.040 Latex allergy status; Z84.1 Family history of disorders of kidney and ureter; Z83.3 Family history of diabetes mellitus; Z82.49 Family history of ischemic heart disease and other diseases of the circulatory system

== ENCOUNTER → 2017-11-08 | Day surgery (SDC) | payer OTHER ==
[2017-08-25 14:19] VITALS: BMI 38.0
[2017-11-03 08:47] VITALS: Ht 167.6 cm; Wt 106.0 kg
[~2017-11-08] VITALS: Ht 167.6 cm; Wt 106.0 kg
[~2017-11-08] MED LIST changes: +500ML BSS 0.3ML EPI 1:1000PF IRRIG ONE; +ACET-1256 PO; +ACETAMINOPHEN 325 MG TAB PO PRN; +AMVISC PLUS 0.8ML SYRINGE INT OCU ONE; +ASPEC81 PO; +ATROPINE SULFATE 0.1 MG/ML 5ML SYR IV PRN; +ATV5 PO; -BCTCR/30 EXT; +BSS FLUSH ONE; +DEXT30TA7 PO; +DICY10CA55 PO; +DOCU100C31 PO; +DOXY100C76 PO; +EpHEDrine SULFATE INJ 50 MG/ML AMP IV PRN; +EpINEphrine INJ 1MG/ML AMP 1 MG/ML AMP ONE; +INSDGIPEN SQ; +IPRASOL4 INH; +ISOS-11 PO; +LACTATED RINGER'S 1000ML 500 ML IV SCH; +LIDOCAINE 3.5% OPH GEL PER APPLICATION CHARGE ONE; +LIDOCAINE HCL 1% MPF 2 ML VIAL ONE; +LORA5CHW10 PO; +LPT40 PO; +MIDAZOLAM HCL 1 MG/ML 2ML VIAL ONE; +OCUCOAT 1 ML SOLN IO ONE; +PANT40TA PO; +POVIDONE-IODINE OP SOLN 30 ML BTL ONE; +PROPARACAINE 0.5% OP SOLN PER DROP CHARGE OPR SCH; +SERT-234 PO; +SEVE800T7 PO; +TOBRAMYCIN/DEXAMETHASONE OPH OINT PER APPLN CHARGE ONE; +TPRSR/50 PO; +TRYPAN BLUE 0.06% FOR SURGI CENTER ONLY OP ONE; +ZFRODT4HP PO
[2017-11-08] MEDS: PHENYLEPHRINE HCL 2.5% OP SOLN PER DROP CHARGE OPR SCH ×2 (06:53→06:58)
[2017-11-08] MEDS: TROPICAMIDE 1% OP SOLN PER DROP CHARGE OPR SCH ×2 (06:54→06:59)
[2017-11-08] MEDS: CYCLOPENTOLATE HCL 1% OP SOLN PER DROP CHARGE OPR SCH ×2 (06:55→07:01)
[2017-11-08] MEDS: KETOROLAC 0.5% OP SOLN PER DROP CHARGE OPR SCH ×2 (06:56→07:02)
[2017-11-08] MEDS: GATIFLOXACIN OP SOLN PER DROP CHARGE OPR SCH ×2 (06:57→07:02)
--- NOTE | 2017-11-08 07:28 | [facility] Operative Report ---
Operative Report Date of Service Nov 08, 2017. Operative Report 1. PREOPERATIVE DIAGNOSIS: Cataract of the right eye. 2. POSTOPERATIVE DIAGNOSIS: Same. 3. PROCEDURE: Phacoemulsification with intraocular lens implantation of the right eye. SURGEON: Dr. Handy Sauer. ANESTHESIA: Topical Lidocaine gel, 1% Non- Preserved intracameral Lidocaine, and monitored intravenous sedation. INDICATIONS FOR THE PROCEDURE: The patient is a 51 - year-old female with a history of cataract of the right eye causing significant visual impairment. The details of the proposed procedure were explained to the patient who asked appropriate questions and following discussion of all risks, benefits and alternatives agreed to have the procedure done. 4. OPERATION AND FINDINGS: DESCRIPTION OF PROCEDURE: After informed consent was obtained, the patient was brought to the Operating Room at the [facility]. The patient was placed in a supine position and then the right eye was prepped and draped in the usual sterile fashion for intraocular surgery. A drop of topical Lidocaine gel was placed in the operative eye. A wire lid speculum was then placed in the fornices. A corneal paracentesis was then created temporally. The Non-Preserved Lidocaine was then instilled into the anterior chamber. The anterior chamber was then pressurized with viscoelastic. A 2.0 mm clear corneal incision was then created temporally. A cystotome was inserted into the anterior chamber and used to create a tear in the anterior lens capsule. This capsular tear was then used to create a small flap and the flap was dragged in a counterclockwise direction in order to create a continuous curvilinear capsulorrhexis. Hydrodissection was accomplished with balanced salt solution. Phacoemulsification of the lens nucleus was then performed in a standard [id number] technique. The phaco time was 1 minute 3 seconds with an average power of 20 %. The remaining cortical material was removed using irrigation aspiration. The capsular bag was then filled with viscoelastic. A Bausch [employer] Lomb MI60L +19.0 diopters lens was then loaded into the injector and injected into the capsular bag. The remaining viscoelastic was removed with the irrigation aspiration handpiece. The wound was hydrated and then checked and found to be watertight. The intraocular pressure was checked and found to be adequate. The wire lid speculum was removed and the patient's face was cleaned and dried. TobraDex ointment was placed in the inferior fornix. The patient was discharged to the Recovery Room having tolerated the procedure well. There were no complications. The patient will be seen tomorrow in the office for follow-up. I attest to the content of the Intraoperative Record and any orders documented therein. Any exceptions are noted below.
--- NOTE | 2017-11-08 07:28 | Discharge Instructions-SurgCtr ---
Discharge Instructions Date of Service Nov 08, 2017. Visit Reason for Visit: Cataract Right Eye Discharge Discharge Diagnosis / Problem: cataract Discharge Goals Goal(s): Improve function Medications Stopped Medications Name(s): Only took 3 meds this morning. Activity Recommendations Activity Limitations: per Instructions/Follow-up section Anesthesia . Post Anesthesia Instructions: If you have had General Anesthesia or IV Sedation: * Do not drive today. * Resume driving when surgeon permits. * Do not make important decisions or sign legal documents today. * Call surgeon for: 1. Temperature elevations greater than 101 degrees F. 2. Uncontrollable pain. 3. Excessive bleeding. 4. Persistent nausea and vomiting. 5. Medication intolerance (nausea, vomiting or rash). * For nausea and vomiting use only clear liquids such as: tea, soda, bouillon until nausea subsides, then gradually increase diet as tolerated. * If you have any concerns or questions, call your surgeon's office. If physician is unavailable and it is an emergency, call 911 or go to the nearest emergency room. . Diet Recommendations Home Diet: resume previous diet Procedures Procedures Performed: Right Cataract Phacoemulsification With Intraocular Lens Implant Pending Studies Studies pending at discharge: no Medical Emergencies . Who to Call and When: Medical Emergencies: If at any time you feel your situation is an emergency, please call 911 immediately. . Non-Emergent Contact Non-Emergency issues call your: Pre Billing Clinician . . "Provider Documentation" section prepared by Handy Sauer. .
[2017-11-08 07:30] VITALS: TEMP 36.5
[2017-11-08 07:49] VITALS: BP 136/81; PULSE 84; O2SAT 95
--- NOTE | 2017-11-08 07:58 | Anesthesia Progress Nt - [facility] ---
Anesthesia Post Op Note Date & Time Nov 08, 2017 at 07:58 Vital Signs Pain Intensity: 0 Vital Signs Past 12 Hours Date Time Temp Pulse Resp B/P (MAP) Pulse Ox O2 Delivery O2 Flow Rate FiO2 11/08/17 07:49 84 16 136/81 (99) 95 Room Air 11/08/17 07:30 36.5 81 12 122/77 (92) 94 Room Air 11/08/17 06:37 36.8 84 20 125/79 (94) 94 Room Air Notes Mental Status: alert / awake / arousable, participated in evaluation Pt Amnestic to Procedure: Yes Nausea / Vomiting: adequately controlled Pain: adequately controlled Airway Patency, RR, SpO2: stable & adequate BP & HR: stable & adequate Hydration State: stable & adequate Anesthetic Complications: no major complications apparent
== END | disposition home or self-care (01) ==
LOC: X.SURG 06:10
PROVIDERS: ATTEND Ophthalmology
DX: E11.36 Type 2 diabetes mellitus with diabetic cataract (principal); H26.9 Unspecified cataract; N18.6 End stage renal disease; I12.0 Hypertensive chronic kidney disease with stage 5 chronic kidney disease or end stage renal disease; F41.9 Anxiety disorder, unspecified; F32.9 Major depressive disorder, single episode, unspecified; Z68.38 Body mass index [BMI] 38.0-38.9, adult; E66.01 Morbid (severe) obesity due to excess calories; Z99.2 Dependence on renal dialysis; I25.2 Old myocardial infarction; Z79.82 Long term (current) use of aspirin; Z79.899 Other long term (current) drug therapy; Z79.4 Long term (current) use of insulin; Z95.5 Presence of coronary angioplasty implant and graft; F17.200 Nicotine dependence, unspecified, uncomplicated; Z91.040 Latex allergy status; Z82.49 Family history of ischemic heart disease and other diseases of the circulatory system; Z83.3 Family history of diabetes mellitus; Z84.1 Family history of disorders of kidney and ureter; Z80.9 Family history of malignant neoplasm, unspecified; Z81.8 Family history of other mental and behavioral disorders

== ENCOUNTER → 2017-11-22 | Day surgery (SDC) | payer OTHER ==
[2017-11-16 07:33] VITALS: Ht 167.6 cm; Wt 105.9 kg
[~2017-11-22] VITALS: Ht 167.6 cm; Wt 105.9 kg
[~2017-11-22] MED LIST changes: +FENTANYL CITRATE INJ 50 MCG/1 ML 2 ML VIAL IV PRN; +FENTANYL CITRATE INJ 50 MCG/1 ML 2 ML VIAL ONE; +FLUMAZENIL 0.1 MG/1 ML 10 ML VIAL IV PRN; +HYDROmorphone INJ 2 MG/ML SYR/VIAL IV PRN; +LABETALOL HCL IV 5 MG/ML 20ML IV PRN; +MEPERIDINE HCL 25 MG/ML CARP IV PRN; +NALOXONE HCL 0.4 MG/1 ML VIAL/CARP IV PRN; +ONDANSETRON INJ 2 MG/ML 2 ML VIAL IV PRN; +PHENYLEPHRINE 100MCG/ML 5ML SYR IV PRN; +PROPARACAINE 0.5% OP SOLN PER DROP CHARGE OPL SCH; -PROPARACAINE 0.5% OP SOLN PER DROP CHARGE OPR SCH; +TRYPAN BLUE 0.15% FOR SURGI CENTER ONLY OP ONE; -ZFRODT4HP PO
[2017-11-22] MEDS: PHENYLEPHRINE HCL 2.5% OP SOLN PER DROP CHARGE OPL SCH ×2 (09:45→09:50)
[2017-11-22] MEDS: TROPICAMIDE 1% OP SOLN PER DROP CHARGE OPL SCH ×2 (09:46→09:51)
[2017-11-22] MEDS: CYCLOPENTOLATE HCL 1% OP SOLN PER DROP CHARGE OPL SCH ×2 (09:47→09:52)
[2017-11-22] MEDS: KETOROLAC 0.5% OP SOLN PER DROP CHARGE OPL SCH ×2 (09:48→09:53)
[2017-11-22] MEDS: GATIFLOXACIN OP SOLN PER DROP CHARGE OPL SCH ×2 (09:49→09:59)
[2017-11-22 10:32] LABS: CALCIUM 10.2 mg/dl (8.5-10.1); CREATININE 6.36 mg/dl (0.60-1.20); POTASSIUM 4.1 mmol/L (3.5-5.1)
--- NOTE | 2017-11-22 11:12 | [facility] Operative Report ---
Operative Report Date of Service Nov 22, 2017. Operative Report 1. PREOPERATIVE DIAGNOSIS: Mature ataract of the left eye. 2. POSTOPERATIVE DIAGNOSIS: Same. 3. PROCEDURE: Phacoemulsification with intraocular lens implantation of the left eye. SURGEON: Dr. Handy Sauer. ANESTHESIA: Topical Lidocaine gel, 1% Non- Preserved intracameral Lidocaine, and monitored intravenous sedation. INDICATIONS FOR THE PROCEDURE: The patient is a 51 - year-old female with a history of cataract of the left eye causing significant visual impairment. The details of the proposed procedure were explained to the patient who asked appropriate questions and following discussion of all risks, benefits and alternatives agreed to have the procedure done. The patient had a mature cataract with no red reflex and therefore plans were made preoperatively to use Vision Blue dye. 4. OPERATION AND FINDINGS: DESCRIPTION OF PROCEDURE: After informed consent was obtained, the patient was brought to the Operating Room at the [facility]. The patient was placed in a supine position and then the left eye was prepped and draped in the usual sterile fashion for intraocular surgery. A drop of topical Lidocaine gel was placed in the operative eye. A wire lid speculum was then placed in the fornices. A corneal paracentesis was then created temporally. The Non-Preserved Lidocaine was then instilled into the anterior chamber. Under an air bubble the anterior lens capsule was painted with Vision Blue dye. The excess dye was then irrigated from the eye using balanced salt solution. The anterior chamber was then pressurized with viscoelastic. A 2.0 mm clear corneal incision was then created temporally. A cystotome was inserted into the anterior chamber and used to create a tear in the anterior lens capsule. This capsular tear was then used to create a small flap and the flap was dragged in a counterclockwise direction in order to create a continuous curvilinear capsulorrhexis. Hydrodissection was accomplished with balanced salt solution. Phacoemulsification of the lens nucleus was then performed in a standard [id number]-[id number]-deerunp technique. The phaco time was 2 minutes and 23 seconds with an average power of 28 %. During phacoemulsification ocucoat was repeatedly instilled into the anterior chamber. The remaining cortical material was removed using irrigation aspiration. The capsular bag was then filled with viscoelastic. A Bausch & Lomb MI60L +18.0 diopters lens was then loaded into the injector and injected into the capsular bag. The remaining viscoelastic was removed with the irrigation aspiration handpiece. The wound was hydrated and then checked and found to be watertight. The intraocular pressure was checked and found to be adequate. The wire lid speculum was removed and the patient's face was cleaned and dried. TobraDex ointment was placed in the inferior fornix. The patient was discharged to the Recovery Room having tolerated the procedure well. There were no complications. The patient will be seen tomorrow in the office for follow-up. I attest to the content of the Intraoperative Record and any orders documented therein. Any exceptions are noted below.
--- NOTE | 2017-11-22 11:13 | Discharge Instructions-SurgCtr ---
Discharge Instructions Date of Service Nov 22, 2017. Visit Reason for Visit: Cataract Left Eye Discharge Discharge Diagnosis / Problem: cataract Discharge Goals Goal(s): Improve function Activity Recommendations Activity Limitations: per Instructions/Follow-up section Anesthesia . Post Anesthesia Instructions: If you have had General Anesthesia or IV Sedation: * Do not drive today. * Resume driving when surgeon permits. * Do not make important decisions or sign legal documents today. * Call surgeon for: 1. Temperature elevations greater than 101 degrees F. 2. Uncontrollable pain. 3. Excessive bleeding. 4. Persistent nausea and vomiting. 5. Medication intolerance (nausea, vomiting or rash). * For nausea and vomiting use only clear liquids such as: tea, soda, bouillon until nausea subsides, then gradually increase diet as tolerated. * If you have any concerns or questions, call your surgeon's office. If physician is unavailable and it is an emergency, call 911 or go to the nearest emergency room. . Diet Recommendations Home Diet: resume previous diet Procedures Procedures Performed: Left Cataract Phacoemulsification With Intraocular Lens Implant Pending Studies Studies pending at discharge: no Medical Emergencies . Who to Call and When: Medical Emergencies: If at any time you feel your situation is an emergency, please call 911 immediately. . Non-Emergent Contact Non-Emergency issues call your: Director Of Category Management . . "Provider Documentation" section prepared by Handy Sauer. .
[2017-11-22 11:18] VITALS: TEMP 36.6
--- NOTE | 2017-11-22 11:51 | Anesthesia Progress Nt - [facility] ---
Anesthesia Post Op Note Date & Time Nov 22, 2017 at 11:51 Vital Signs Pain Intensity: 0 Vital Signs Past 12 Hours Date Time Temp Pulse Resp B/P (MAP) Pulse Ox O2 Delivery O2 Flow Rate FiO2 11/22/17 11:18 36.6 85 18 115/74 (88) 95 Room Air 11/22/17 09:50 36.8 87 18 126/58 (80) 96 Room Air Notes Mental Status: alert / awake / arousable, participated in evaluation Pt Amnestic to Procedure: Yes Nausea / Vomiting: adequately controlled Pain: adequately controlled Airway Patency, RR, SpO2: stable & adequate BP & HR: stable & adequate Hydration State: stable & adequate Anesthetic Complications: no major complications apparent
[2017-11-22 11:57] VITALS: BP 132/78; PULSE 85; O2SAT 97
== END | disposition home or self-care (01) ==
LOC: X.SURG 08:35
PROVIDERS: ATTEND Ophthalmology
DX: H26.8 Other specified cataract (principal); E11.9 Type 2 diabetes mellitus without complications; K21.9 Gastro-esophageal reflux disease without esophagitis; R11.0 Nausea; E78.5 Hyperlipidemia, unspecified; N18.6 End stage renal disease; F41.9 Anxiety disorder, unspecified; F32.9 Major depressive disorder, single episode, unspecified; Z99.2 Dependence on renal dialysis; I25.5 Ischemic cardiomyopathy; I12.0 Hypertensive chronic kidney disease with stage 5 chronic kidney disease or end stage renal disease; I25.2 Old myocardial infarction; N25.81 Secondary hyperparathyroidism of renal origin; I73.9 Peripheral vascular disease, unspecified; E66.01 Morbid (severe) obesity due to excess calories; Z98.890 Other specified postprocedural states; Z95.5 Presence of coronary angioplasty implant and graft; Z79.82 Long term (current) use of aspirin; Z79.4 Long term (current) use of insulin; Z91.048 Other nonmedicinal substance allergy status; Z82.49 Family history of ischemic heart disease and other diseases of the circulatory system; Z83.3 Family history of diabetes mellitus; Z84.1 Family history of disorders of kidney and ureter; Z82.3 Family history of stroke; Z81.8 Family history of other mental and behavioral disorders; Z87.891 Personal history of nicotine dependence; Z91.040 Latex allergy status

== ENCOUNTER 2018-01-04 01:11 | Emergency (ER) | payer OTHER ==
[~2018-01-04] VITALS: Ht 170.2 cm; Wt 111.9 kg
[~2018-01-04 01:11] MED LIST changes: -500ML BSS 0.3ML EPI 1:1000PF IRRIG ONE; -ACETAMINOPHEN 325 MG TAB PO PRN; -AMVISC PLUS 0.8ML SYRINGE INT OCU ONE; -ASPEC81 PO; +ASPI-320 PO; -ATROPINE SULFATE 0.1 MG/ML 5ML SYR IV PRN; -BSS FLUSH ONE; -EpHEDrine SULFATE INJ 50 MG/ML AMP IV PRN; -EpINEphrine INJ 1MG/ML AMP 1 MG/ML AMP ONE; -FENTANYL CITRATE INJ 50 MCG/1 ML 2 ML VIAL IV PRN; -FENTANYL CITRATE INJ 50 MCG/1 ML 2 ML VIAL ONE; -FLUMAZENIL 0.1 MG/1 ML 10 ML VIAL IV PRN; -HYDROmorphone INJ 2 MG/ML SYR/VIAL IV PRN; -LABETALOL HCL IV 5 MG/ML 20ML IV PRN; -LACTATED RINGER'S 1000ML 500 ML IV SCH; -LIDOCAINE 3.5% OPH GEL PER APPLICATION CHARGE ONE; -LIDOCAINE HCL 1% MPF 2 ML VIAL ONE; -MEPERIDINE HCL 25 MG/ML CARP IV PRN; -MIDAZOLAM HCL 1 MG/ML 2ML VIAL ONE; -NALOXONE HCL 0.4 MG/1 ML VIAL/CARP IV PRN; -OCUCOAT 1 ML SOLN IO ONE; -ONDANSETRON INJ 2 MG/ML 2 ML VIAL IV PRN; -PHENYLEPHRINE 100MCG/ML 5ML SYR IV PRN; -POVIDONE-IODINE OP SOLN 30 ML BTL ONE; -PROPARACAINE 0.5% OP SOLN PER DROP CHARGE OPL SCH; -TOBRAMYCIN/DEXAMETHASONE OPH OINT PER APPLN CHARGE ONE; -TRYPAN BLUE 0.06% FOR SURGI CENTER ONLY OP ONE; -TRYPAN BLUE 0.15% FOR SURGI CENTER ONLY OP ONE
[2018-01-04 01:16] VITALS: TEMP 36.7; Ht 170.2 cm; Wt 111.9 kg
[2018-01-04] MEDS ORDERED: FENTANYL CITRATE INJ 50 MCG/1 ML 2 ML VIAL IV STA (01:31)
--- NOTE | 2018-01-04 01:41 | EMERGENCY ROOM VISIT NOTE ---
History Report prepared by Aleksandra: Benigno Norman Under the Supervision of: Dr. Fredi Fernandez M.D. First contact with patient: 01:22 Chief Complaint: CHEST PAIN Stated Complaint: CHEST PAIN Nursing Triage Summary: chest pain upon inspiration History of Present Illness The patient is a 52 year old female who presents to the Emergency Room with complaints of constant, sharp, left sided chest pain beginning this evening. The patient states she has a history of a stent and an NC a few years ago. She reports her pain was in her back when she had her NC, and this time it is in the front. The patient notes coughing and deep breathing increases her discomfort. She states she did not have chest pain or shortness of breath yesterday. She notes she was lying on her back when her symptoms developed. The patient reports she does have a history of a chronic cough that has flared up with her sinuses. She notes she was given four baby aspirin in the ambulance in route. The patient states she has kidney failure because she did not take care of her diabetes. She reports she has not checked her blood sugar recently. The patient denies falling, recent injury, taking blood thinners, rash, lying on her side, taking daily pain medication, problems with dialysis, and a history of blood clots in the legs or lungs. Source of History: patient Onset: this evening Position: chest (left) Quality: sharp Timing: constant Modifying Factors (Worsening): breathing (deep), other (coughing) Associated Symptoms: + cough, No rash Note: Denies: falling, recent injury, lying on her side Review of Systems See HPI for pertinent positives & negatives. A total of 10 systems reviewed and were otherwise negative. Past Medical & Surgical Medical Problems: (1) Allergic rhinitis (2) Arthritis (3) C. difficile colitis (4) CAD (coronary artery disease) (5) Carotid stenosis (6) Diabetic foot infection (7) DM type 2 (diabetes mellitus, type 2) (8) Dyslipidemia (9) ESRD (end stage renal disease) on dialysis (10) Fall (11) GERD (gastroesophageal reflux disease) (12) HTN (hypertension) (13) HX OF PAST NONCOMPLIANCE (14) Hyperkalemia (15) Ischemic cardiomyopathy (16) Morbid obesity (17) Osteomyelitis (18) Sepsis (19) Tobacco use disorder (20) UGIB (upper gastrointestinal bleed) (21) Weakness Surgical Problems: (1) Hemodialysis access, AV graft Family History Diabetes mellitus FATHER MOTHER Heart disease FATHER MOTHER Hypertension FATHER MOTHER Kidney disease GRANDMOTHER Social History Smoking Status: Former Smoker Alcohol Use: none Drug Use: none Marital Status: Housing Status: lives with family Occupation Status: unemployed Current/Historical Medications Scheduled Acetaminophen (Tylenol), 500 MG PO Q4 Aspirin (Aspirin EC Low Dose), 81 MG PO QAM Atorvastatin (Lipitor), 40 MG PO QAM Azithromycin (Zithromax Z-Rafy), 1 PKT PO UD Docusate Sodium (Docusate Sodium), 200 MG PO BID Doxycycline Monohydrate (Monodox), 100 MG PO BID Insulin Glargine (Lantus Solostar), 12 UNITS SQ HS Isosorbide Mononitrate (Isosorbide Mononitrate ER), 90 MG PO QAM Metoprolol Succinate (Metoprolol Succinate ER), 50 MG PO HS Pantoprazole (Protonix), 40 MG PO QAM Sertraline (Zoloft), 100 MG PO HS Sevelamer Carbonate (Renvela), 3 TAB PO TIDM Scheduled PRN Dextromethorphan-Guaifenesin (Mucinex Dm), 1 TAB PO Q12 PRN for CONGESTION Dicyclomine Hcl (Bentyl), 10 MG PO QID PRN for GI CRAMPS Loratadine (Claritin Childrens), 10 MG PO BID PRN for Seasonal Allergies Lorazepam (Lorazepam), 0.5 MG PO BID PRN for Anxiety Sevelamer Carbonate (Renvela), 2 TAB PO DIRECTED PRN for WITH SNACKS Allergies Coded Allergies: Adhesives (Verified Allergy, Mild, RASH, SORES, 01/04/18) NO KNOWN DRUG ALLERGIES (Verified Allergy, Mild, ., 01/04/18) Latex1 -Allergic Contact Dermititis (Verified Allergy, Unknown, rash, 01/04) Pollen Extract (Verified Allergy, Unknown, WATERY EYES, 01/04/18) Physical Exam Vital Signs Date Time Temp Pulse Resp B/P (MAP) Pulse Ox O2 Delivery O2 Flow Rate FiO2 01/04/18 05:07 84 16 193/108 95 01/04/18 03:44 83 16 163/93 96 Room Air 01/04/18 01:22 91 01/04/18 01:16 36.7 92 16 176/100 98 Room Air Physical Exam GENERAL: Patient is uncomfortable appearing and in moderate distress. EYES: No scleral icterus, unremarkable pupils. ENT: Mucous membranes moist, no nasal congestion. NECK: No masses appreciated, no meningismus, trachea is midline. RESPIRATORY: No dyspnea. Clear to auscultation and equal bilaterally. No wheeze , no rhonchi. CHEST: Point tenderness to palpation over the left anterior chest wall. No rash. Equal chest rise. CARDIOVASCULAR: Regular rate and rhythm. No murmurs, rubs, gallops appreciated. GASTROINTESTINAL: Abdomen soft, nontender, no peritonitis. Bowel sounds positive. No masses appreciated. BACK: No midline tenderness, no CVA tenderness EXTREMITIES: Normal motion all extremities, no cyanosis, no edema. NEUROLOGIC: Alert and oriented, no acute motor or sensory deficits, no focal weakness, cranial nerves grossly intact. SKIN: No jaundice, no diaphoresis. Skin picking over the left shoulder and forearm. Medical Decision & Procedures ER Provider Diagnostic Interpretation: X ray results are stated below per my interpretation: Chest: 1 view: No infiltrate, no effusion, mild congestion findings. Mildly enlarged heart. Interval resolution of left lower lobe infiltrate from x-ray on 09/04/17 Laboratory Results 01/04/18 01:50 Red Blood Count 4.03, Mean Corpuscular Volume 92.3, Mean Corpuscular Hemoglobin 29.3, Mean Corpuscular Hemoglobin Concent 31.7, Mean Platelet Volume 10.0, Neutrophils (%) (Auto) 66.9, Lymphocytes (%) (Auto) 19.3, Monocytes (%) (Auto) 9.7, Eosinophils (%) (Auto) 3.6, Basophils (%) (Auto) 0.4, Neutrophils # (Auto) 4.87, Lymphocytes # (Auto) 1.41, Monocytes # (Auto) 0.71, Eosinophils # (Auto) 0.26, Basophils # (Auto) 0.03 01/04/18 01:50 Test 01/04/18 01:50 01/04/18 03:36 White Blood Count 7.29 K/uL (4.8-10.8) Red Blood Count 4.03 M/uL (4.2-5.4) Hemoglobin 11.8 g/dL (12.0-16.0) Hematocrit 37.2 % (37-47) Mean Corpuscular Volume 92.3 fL (80-100) Mean Corpuscular Hemoglobin 29.3 pg (25-34) Mean Corpuscular Hemoglobin Concent 31.7 g/dl (32-36) Platelet Count 310 K/uL (130-400) Mean Platelet Volume 10.0 fL (7.4-10.4) Neutrophils (%) (Auto) 66.9 % Lymphocytes (%) (Auto) 19.3 % Monocytes (%) (Auto) 9.7 % Eosinophils (%) (Auto) 3.6 % Basophils (%) (Auto) 0.4 % Neutrophils # (Auto) 4.87 K/uL (1.4-6.5) Lymphocytes # (Auto) 1.41 K/uL (1.2-3.4) Monocytes # (Auto) 0.71 K/uL (0.11-0.59) Eosinophils # (Auto) 0.26 K/uL (0-0.5) Basophils # (Auto) 0.03 K/uL (0-0.2) RDW Standard Deviation 49.7 fL (36.4-46.3) RDW Coefficient of Variation 14.7 % (11.5-14.5) Immature Granulocyte % (Auto) 0.1 % Immature Granulocyte # (Auto) 0.01 K/uL (0.00-0.02) Anion Gap 10.0 mmol/L (3-11) Est Creatinine Clear Calc Drug Dose 11.5 ml/min Estimated GFR () 6.6 Estimated GFR (Non- 5.7 BUN/Creatinine Ratio 10.9 (10-20) Calcium Level 10.3 mg/dl (8.5-10.1) Troponin I 0.089 ng/ml (0-0.045) Laboratory results as reviewed by me. Medications Administered Medications (Trade) Dose Ordered Sig/Bladimir Route Start Time Stop Time Status Last Admin Dose Admin Fentanyl Citrate (Fentanyl Inj) 75 mcg NOW STAT IV 01/04/18 01:31 01/04/18 01:33 DC 01/04/18 01:42 75 MCG Oxycodone HCl (Roxicodone Immediate Rel 5MG Home Pack) 1 homepack UD ONCE PO 01/04/18 05:00 01/04/18 05:01 DC 01/04/18 05:06 1 HOMEPACK Azithromycin (Zithromax Tab) 500 mg NOW STAT PO 01/04/18 04:50 01/04/18 04:51 DC 01/04/18 04:50 500 MG ECG Per My Interpretation Indication: chest pain Rate (beats per minute): 89 Rhythm: sinus rhythm Findings: no acute ischemic change, no ectopy, other (QTc of 469) ED Course 0125: The patient was evaluated in room B05. A complete history and physical exam was performed. 0246: I reevaluated the patient. She is not having further pain and is feeling well. 0334: I reevaluated the patient and discussed current test results. She is still pain free. 0447: Reevaluated the patient. She is feeling better. She asked for pain medication for when she receives dialysis. The patient reports her discomfort is only present with movement and palpation. She also asked for a z-pack for a cough she has had for two weeks. She thinks it is related to her previous episodes of bronchitis. Discussed results and discharge instructions: she verbalized understanding and agreement. The patient is ready for discharge. Medical Decision Differential: Cardiac Ischemia (STEMI, NSTEMI, Unstable Angina, etc), Aortic Dissection, Arrhythmia, Pulmonary Embolism, Pneumonia, Pneumothorax, MSK, Infectious, Pericarditis/Myocarditis, Esophageal Rupture, Gastrointestinal, amongst other pathologies entertained. 52 yr old female with left chest pain this evening. Notes it worsened tonight but admits started after harsh episode of coughing. Patient notes bronchitis like cough over last few weeks. No wheeze on exam. She notes history of smoking and states Zpack helped in past. Reviewed cough could be allergen or viral but given persistent will try zpack. She is not SHOB and only notes that she has increased pain with deep inspiration. She is not hypoxic nor tachycardic, has no history of PE/DVT, has no leg swelling and denies other recent PE/DVT risk factors. Without other findings I do not feel that CT PE study would outweigh risks of worsening her renal function. CP is clearly reproducible and with this TTP I feel symptoms likely MSK related. I do not feel this is ACS and with two similar Trops and normal EKG I do not feel further cardiac work-up required at this time. Trop is likely elevated secondary to her chronic renal failure. Given to go oxy IR only as may be uncomfortable while in dialysis. Discussed at length symptoms requiring RTED and I advised follow up with PCP for further evaluation and treatment. [place] Drug Monitoring Program Search Results: patient reviewed within database, see additional documentation Drug Monitoring Findings: recent #6 Percocet by local provider and sporadic narcotic prescriptions over last year. Medication Reconcilliation Current Medication List: was personally reviewed by me Blood Pressure Screening Patient's blood pressure: Elevated blood pressure Blood pressure disposition: Referred to PCP Impression Primary Impression: Left-sided chest wall pain Additional Impression: Persistent cough Scribe Attestation The scribe's documentation has been prepared under my direction and personally reviewed by me in its entirety. I confirm that the note above accurately reflects all work, treatment, procedures, and medical decision making performed by me. Departure Information Dispostion Home / Self-Care Prescriptions Azithromycin (ZITHROMAX Z-RAFY) 250 Mg Tab 1 PKT PO UD, #1 PKT Prov: Fredi Fernandez M.D. 01/04/18 Referrals Tamy Becerra D.O. (PCP) Forms Call Back Authorization, HOME CARE DOCUMENTATION FORM, IMPORTANT VISIT INFORMATION Patient Instructions ED Chest Pain Atypical Unkn Cause, My [facility] Additional Instructions Please follow up with your primary care provider for further evaluation of this. Return immediately if shortness of breath, passing out, worsening pain or other concerns. You have received a narcotic pain medication. These medications may cause drowsiness and should not be used with other sedative medications. Do not drive , drink alcohol, perform dangerous activities, nor make important decisions after taking these medications. penitentiary use or inappropriate use may lead to addiction. Problem Qualifiers
[2018-01-04 02:09] LABS: BASO % 0.4 %; BASO ABS # 0.03 K/uL (0-0.2); EOS % 3.6 %; EOS ABS # 0.26 K/uL (0-0.5); HEMATOCRIT 37.2 % (37-47); HEMOGLOBIN 11.8 g/dL (12.0-16.0); IG# 0.01 K/uL (0.00-0.02); LYMPH % 19.3 %; LYMPH ABS # 1.41 K/uL (1.2-3.4); MEAN CELL VOLUME 92.3 fL (80-100); MEAN CORPUSCULAR HEMOGLOBIN 29.3 pg (25-34); MEAN CORPUSCULAR HGB CONC 31.7 g/dl (32-36); MONO % 9.7 %; MONO ABS # 0.71 K/uL (0.11-0.59); NEUT % 66.9 %; NEUT ABS # 4.87 K/uL (1.4-6.5); PLATELET COUNT 310 K/uL (130-400); RED CELL DISTRIBUTION WIDTH CV 14.7 % (11.5-14.5); RED CELL DISTRIBUTION WIDTH SD 49.7 fL (36.4-46.3); WHITE BLOOD COUNT 7.29 K/uL (4.8-10.8)
[2018-01-04] MEDS ORDERED: SEVE800T7 PO (02:21)
[2018-01-04 02:51] LABS: CALCIUM 10.3 mg/dl (8.5-10.1); CREATININE 7.49 mg/dl (0.60-1.20)
[2018-01-04] MEDS ORDERED: AZITHROMYCIN 250 MG TAB PO STA (04:50)
[2018-01-04] MEDS ORDERED: AZITTAB PO (04:53)
[2018-01-04] MEDS ORDERED: OXYCODONE IR HOME PACK PO ONE (05:00)
[2018-01-04 05:07] VITALS: BP 193/108; PULSE 84; O2SAT 95
--- NOTE | 2018-01-04 08:20 | DIAGNOSTIC IMAGING REPORT ---
CHEST ONE VIEW PORTABLE CLINICAL HISTORY: 52 years-old Female presenting with Chest Pain. TECHNIQUE: Portable upright AP view of the chest was obtained. COMPARISON: 09/04/2017. FINDINGS: Atherosclerosis of aortic arch. Cardiac silhouette enlarged. Enlarged main pulmonary artery. Pulmonary vascular prominence. No focal opacity. Previously noted left upper and left lower lung opacities have resolved. No large effusion or pneumothorax. Osseous structures normal. Upper abdomen normal. IMPRESSION: 1. Cardiomegaly with volume overload and evidence of pulmonary hypertension. No jasmin pulmonary edema. 2. Interval resolution of left upper and left lower lung infiltrates. Electronically signed by: Chava Streeter M.D. 01/04/2018 8:19 AM Dictated Date/Time: 01/04/2018 6:52 AM
== END 2018-01-04 05:10 | disposition home or self-care (01) ==
LOC: EDBD 01:11 → C.EDB 01:12
DX: R07.89 Other chest pain (principal); R05 Cough; I25.10 Atherosclerotic heart disease of native coronary artery without angina pectoris; I25.2 Old myocardial infarction; E11.9 Type 2 diabetes mellitus without complications; E78.5 Hyperlipidemia, unspecified; K21.9 Gastro-esophageal reflux disease without esophagitis; I12.0 Hypertensive chronic kidney disease with stage 5 chronic kidney disease or end stage renal disease; Z87.891 Personal history of nicotine dependence; Z79.82 Long term (current) use of aspirin; Z79.899 Other long term (current) drug therapy; Z91.040 Latex allergy status; Z91.048 Other nonmedicinal substance allergy status

== ENCOUNTER 2018-03-29 18:14 | Emergency (ER) | payer OTHER ==
[~2018-03-29] VITALS: Ht 167.6 cm; Wt 107.0 kg
[~2018-03-29 18:14] MED LIST changes: +CLOP1TAB15 PO; -IPRASOL4 INH; -LORA5CHW10 PO; +NTRGSL/4 UT
[2018-03-29 18:17] VITALS: TEMP 36.9; Ht 167.6 cm; Wt 107.0 kg
[2018-03-29] MEDS ORDERED: OXYCODONE HCL IR 5 MG TAB (IMMEDIATE RELEASE) PO STA (18:35)
[2018-03-29] MEDS ORDERED: ACETAMINOPHEN 325 MG TAB PO STA (18:35)
--- NOTE | 2018-03-29 18:41 | EMERGENCY ROOM VISIT NOTE ---
History Report prepared by Aleksandra: Niurka Black Under the Supervision of: Dr. Karl Young M.D. First contact with patient: 18:20 Chief Complaint: PAIN (GENERALIZED) Stated Complaint: GENERALIZED PAIN,KNEE,BACK,HIP,SHOULDER History of Present Illness The patient is a 52 year old white female with a past medical history of arthritis, CAD, C. difficile colitis, DM type II, ESRD, GERD, HTN, hyperkalemia , osteomyelitis, and ischemic cardiomyopathy who presents to the ED with a cc of worsening generalized pain beginning earlier today. Positive wet cough with yellow phlegm. Negative urinary symptoms, recent trauma, recent falls, recent camping, recent hunting, tick bites. She notes she has mild lower back pain which began today as well as right shoulder pain, right hip pain, and right knee pain. The patient is unsure of what caused her increased pain and notes that usually Aspercreme alleviates her pain, but it did not modify her symptoms today. She notes she has a bulging disk in her back and is a kidney patient on MWF dialysis with her last dialysis being today. She is a former smoker and quit 5 years ago. Source of History: patient Onset: earlier today Position: shoulder (right), back (lower), knee (right), other (right hip) Quality: other (increased pain) Timing: worsening Associated Symptoms: + cough (wet with yellow phlegm), No urinary symptoms Note: Positive right hip pain, right knee pain, right hip pain. Negative recent trauma , recent falls, recent camping, recent hunting, tick bites Review of Systems See HPI for pertinent positives and negatives. A total of ten systems were reviewed and were otherwise negative. Past Medical & Surgical Medical Problems: (1) Allergic rhinitis (2) Arthritis (3) C. difficile colitis (4) CAD (coronary artery disease) (5) Carotid stenosis (6) Chest pain (7) Diabetic foot infection (8) DM type 2 (diabetes mellitus, type 2) (9) Dyslipidemia (10) Elevated troponin I level (11) ESRD (end stage renal disease) on dialysis (12) Fall (13) GERD (gastroesophageal reflux disease) (14) HTN (hypertension) (15) HX OF PAST NONCOMPLIANCE (16) Hyperkalemia (17) Ischemic cardiomyopathy (18) Morbid obesity (19) Osteomyelitis (20) Sepsis (21) Tobacco use disorder (22) UGIB (upper gastrointestinal bleed) (23) Weakness Surgical Problems: (1) Hemodialysis access, AV graft Family History Diabetes mellitus FATHER MOTHER Heart disease FATHER MOTHER Hypertension FATHER MOTHER Kidney disease GRANDMOTHER Social History Smoking Status: Former Smoker Alcohol Use: none Drug Use: none Marital Status: Housing Status: lives with family Occupation Status: unemployed Current/Historical Medications Scheduled Aspirin (Aspirin EC Low Dose), 81 MG PO QAM Atorvastatin (Lipitor), 40 MG PO QAM Benzonatate (Benzonatate), 100 MG PO TID Clopidogrel (Plavix), 75 MG PO DAILY Insulin Glargine (Lantus Solostar), 12 UNITS SQ HS Isosorbide Mononitrate (Isosorbide Mononitrate ER), 90 MG PO QAM Metoprolol Succinate (Metoprolol Succinate ER), 50 MG PO HS Nitroglycerin (Nitrostat), 0.4 MG UT PRN Pantoprazole (Protonix), 40 MG PO BID Sertraline (Zoloft), 100 MG PO HS Sevelamer Carbonate (Renvela), 3 TAB PO TIDM Scheduled PRN Loratadine (Claritin Childrens), 10 MG PO BID PRN for Seasonal Allergies Lorazepam (Lorazepam), 0.5 MG PO BID PRN for Anxiety Sevelamer Carbonate (Renvela), 2 TAB PO DIRECTED PRN for WITH SNACKS Allergies Coded Allergies: Adhesives (Verified Allergy, Mild, RASH, SORES, 02/26/18) NO KNOWN DRUG ALLERGIES (Verified Allergy, Mild, ., 01/04/18) Latex1 -Allergic Contact Dermititis (Verified Allergy, Unknown, rash, ) Pollen Extract (Verified Allergy, Unknown, WATERY EYES, 01/04/18) Physical Exam Vital Signs Date Time Temp Pulse Resp B/P (MAP) Pulse Ox O2 Delivery O2 Flow Rate FiO2 03/29/18 20:23 90 18 139/66 95 Room Air 03/29/18 19:51 92 03/29/18 18:17 36.9 102 20 96 Room Air Physical Exam GENERAL: Awake, alert, chronically ill-appearing, NAD HENT: Normocephalic, atraumatic. EYES: Normal conjunctiva. Sclera non-icteric. PERRL. No anisocoria. NECK: Supple. No nuchal rigidity. FROM. RESPIRATORY: CTAB, no rhonchi, wheezing, crackles CARDIAC: RRR, Systolic ejection murmur ABDOMEN: Soft, NTND, BS+ MSK: No chest wall TTP, no LE edema. LUE AVF with palpable thrill. Mild pain to right anterior shoulder. Right knee no evidence of any overlying skin changes, erythema, or effusion. Mild low midline and paraspinal LBP negative SLR B/L NEURO: GCS 15, CN 2-12 intact, moves all 4s on command. No saddle anesthesia. SKIN: No rash or jaundice noted. Medical Decision & Procedures ER Provider Diagnostic Interpretation: Radiology results as stated below per my review and radiologist interpretation: R SHOULDER MIN 2 VIEWS ROUTINE CLINICAL HISTORY: R anterior shoulder pain pain COMPARISON: None. DISCUSSION: Minimal degenerative change glenohumeral as well as acromioclavicular joints. Minimal calcific supraspinatus tendinitis. No evidence for fracture or dislocation. There is no evidence for soft tissue swelling. IMPRESSION: Minimal degenerative change. Mild calcific supraspinatus tendinitis. The above report was generated using voice recognition software. It may contain grammatical, syntax or spelling errors. Electronically signed by: Edmundo Lam M.D. 03/29/2018 7:53 PM LUMBAR SPINE 2 OR 3 VIEWS CLINICAL HISTORY: midline and b/l paraspinal LBP pain COMPARISON STUDY: No previous studies for comparison. FINDINGS: No evidence for compression deformity. Disc spaces are well-preserved. Mild scoliosis. Vascular calcification of the abdomen or in IMPRESSION: No acute process. Mild degenerative change. Mild scoliosis. The above report was generated using voice recognition software. It may contain grammatical, syntax or spelling errors. Electronically signed by: Edmundo Lam M.D. 03/29/2018 7:54 PM Laboratory Results 03/29/18 18:50 Red Blood Count 3.60, Mean Corpuscular Volume 95.6, Mean Corpuscular Hemoglobin 30.3, Mean Corpuscular Hemoglobin Concent 31.7, Mean Platelet Volume 10.1, Neutrophils (%) (Auto) 71.7, Lymphocytes (%) (Auto) 15.3, Monocytes (%) (Auto) 11.8, Eosinophils (%) (Auto) 0.7, Basophils (%) (Auto) 0.3, Neutrophils # (Auto ) 6.56, Lymphocytes # (Auto) 1.40, Monocytes # (Auto) 1.08, Eosinophils # (Auto ) 0.06, Basophils # (Auto) 0.03 03/29/18 18:50 Test 03/29/18 18:50 White Blood Count 9.15 K/uL (4.8-10.8) Red Blood Count 3.60 M/uL (4.2-5.4) Hemoglobin 10.9 g/dL (12.0-16.0) Hematocrit 34.4 % (37-47) Mean Corpuscular Volume 95.6 fL (80-100) Mean Corpuscular Hemoglobin 30.3 pg (25-34) Mean Corpuscular Hemoglobin Concent 31.7 g/dl (32-36) Platelet Count 350 K/uL (130-400) Mean Platelet Volume 10.1 fL (7.4-10.4) Neutrophils (%) (Auto) 71.7 % Lymphocytes (%) (Auto) 15.3 % Monocytes (%) (Auto) 11.8 % Eosinophils (%) (Auto) 0.7 % Basophils (%) (Auto) 0.3 % Neutrophils # (Auto) 6.56 K/uL (1.4-6.5) Lymphocytes # (Auto) 1.40 K/uL (1.2-3.4) Monocytes # (Auto) 1.08 K/uL (0.11-0.59) Eosinophils # (Auto) 0.06 K/uL (0-0.5) Basophils # (Auto) 0.03 K/uL (0-0.2) RDW Standard Deviation 56.0 fL (36.4-46.3) RDW Coefficient of Variation 15.9 % (11.5-14.5) Immature Granulocyte % (Auto) 0.2 % Immature Granulocyte # (Auto) 0.02 K/uL (0.00-0.02) Anion Gap 6.0 mmol/L (3-11) Est Creatinine Clear Calc Drug Dose 17.6 ml/min Estimated GFR () 11.7 Estimated GFR (Non- 10.1 BUN/Creatinine Ratio 5.6 (10-20) Calcium Level 9.7 mg/dl (8.5-10.1) Troponin I 0.162 ng/ml (0-0.045) Laboratory results reviewed by me Medications Administered Medications (Trade) Dose Ordered Sig/Bladiimr Route Start Time Stop Time Status Last Admin Dose Admin Acetaminophen (Tylenol Tab) 650 mg NOW STAT PO 03/29/18 18:35 03/29/18 18:38 DC 03/29/18 18:50 650 MG Oxycodone HCl (Roxicodone Immediate Rel Tab) 5 mg NOW STAT PO 03/29/18 18:35 03/29/18 18:38 DC 03/29/18 18:50 5 MG Fentanyl Citrate (Fentanyl Inj) 25 mcg NOW ONCE IV 03/29/18 20:15 03/29/18 20:16 DC 03/29/18 20:21 25 MCG ECG Per My Interpretation Indication: back/shoulder pain Rate (beats per minute): 91 Rhythm: normal sinus Findings: other (normal intervals, normal axis, no STS changes or TWI) Comparison ECG Date: 03/15/2018 Change: Compared to prior, her T-waves have improved in the inferior leads ED Course 1822: The patient was evaluated in room A10. A complete history and physical exam was performed. 2039: I reevaluated the patient. Discussed results and discharge instructions: She verbalized understanding and agreement. The patient is ready for discharge. Medical Decision Nursing notes reviewed. Ancillary studies and prior records reviewed. Differential diagnosis: Etiologies such as fracture, dislocation, neurovascular compromise, compartment syndrome, soft tissue injury, as well as others were entertained. Patient was seen and evaluated the bedside. The patient was complaining some generalized discomfort primarily in her back shoulder and left hip and knee. The patient has had a previous knee film which did not show any acute injury. The patient does have a known history of a recent end STEMI. The patient denies any chest pains. No exertional symptoms. Patient did have dialysis today and does have a left upper extremity fistula which has a good palpable thrill. The patient denies infectious symptoms with the exception of an occasional productive cough. The patient did have some plain films completed along with some blood work. The patient does have known CKD. Patient's potassium is not abnormally high that requires treatment. The patient does have an elevated troponin. Given that the patient actually has improvement in her EKG denies chest pain and has a history of chronic kidney disease along with chronic elevations in troponin that are improved compared to her most recent NSTEMI I do not believe that she requires further treatment. Patient does have some chronic hyponatremia and anemia. Patient was feeling improved after medication. Patient was deemed suitable for outpatient follow-up and treatment at this time. Patient was given strict follow-up, discharge, and return precautions. All questions were answered. Patient was deemed suitable for outpatient follow-up at this time. Patient agreed with the plan of care and was safely discharged home. Medication Reconcilliation Current Medication List: was personally reviewed by me Blood Pressure Screening Patient's blood pressure: Normal blood pressure Blood pressure disposition: Did not require urgent referral Impression Primary Impression: Tendinitis Additional Impressions: Arthritis Obesity Hyponatremia Anemia Scribe Attestation The scribe's documentation has been prepared under my direction and personally reviewed by me in its entirety. I confirm that the note above accurately reflects all work, treatment, procedures, and medical decision making performed by me. Departure Information Dispostion Home / Self-Care Referrals Tamy Becerra D.O. (PCP) Forms HOME CARE DOCUMENTATION FORM, IMPORTANT VISIT INFORMATION, WORK / SCHOOL INSTRUCTIONS Patient Instructions ED RICE, ED Tendinitis Rotator Cuff, [facility] Additional Instructions Please return to the emergency department if you have worsening or recurrent symptoms not amenable to at-home treatment. Please call for a follow-up appointment with her primary care physician. Please take your medications as prescribed. If you have other concerns and/or complaints please feel free to also call your primary care physician's office or return the ED for further evaluation, management, and treatment. You were found to have an elevated blood pressure today (>120 sytolic or >90 diastolic). Per medicare guidelines, you need to follow up with this blood pressure screening with your Primary Care Physician (PCP). For a new PCP call [phone]. You received narcotic or benzodiazepene medication while in the emergency room today. This is an addictive medication that may cause drowziness as well as constipation. Do not drive, operate heavy machinery, or drink alcohol under the influence of this medication. You may take tylenol 650 mg every 6 hours as needed for pain/fever unless told by your physician to not take it or have liver problems. You may take motrin and tylenol separately or at the same time. Take your medications as prescribed. You have been examined and treated today on an emergency basis only. This is not a substitute for, or an effort to provide, complete comprehensive medical care. It is impossible to recognize and treat all injuries or illnesses in a single emergency department visit. It is therefore important that you follow up closely with [facility], your PCP, and/or your specialist(s). Call as soon as possible for an appointment. Thank you for your time and consideration. I look forward to speaking with you again soon. Please don't hesitate to call us if you have any questions. Problem Qualifiers Additional Impressions: Obesity Obesity type: unspecified obesity type Obesity classification: adult class 2 (BMI 35 - 39.9) Serious obesity comorbidity presence: with serious comorbidity Body mass index: BMI 38.0-38.9 Qualified Codes: E66.01 - Morbid (severe) obesity due to excess calories; Z68.38 - Body mass index (bmi) 38.0- 38.9, adult Anemia Anemia type: unspecified type Qualified Codes: D64.9 - Anemia, unspecified
[2018-03-29 19:09] LABS: BASO % 0.3 %; BASO ABS # 0.03 K/uL (0-0.2); EOS % 0.7 %; EOS ABS # 0.06 K/uL (0-0.5); HEMATOCRIT 34.4 % (37-47); HEMOGLOBIN 10.9 g/dL (12.0-16.0); IG# 0.02 K/uL (0.00-0.02); LYMPH % 15.3 %; MEAN CELL VOLUME 95.6 fL (80-100); MEAN CORPUSCULAR HEMOGLOBIN 30.3 pg (25-34); MEAN CORPUSCULAR HGB CONC 31.7 g/dl (32-36); MEAN PLATELET VOLUME 10.1 fL (7.4-10.4); MONO % 11.8 %; MONO ABS # 1.08 K/uL (0.11-0.59); NEUT % 71.7 %; NEUT ABS # 6.56 K/uL (1.4-6.5); PLATELET COUNT 350 K/uL (130-400); RED CELL DISTRIBUTION WIDTH CV 15.9 % (11.5-14.5); WHITE BLOOD COUNT 9.15 K/uL (4.8-10.8)
[2018-03-29] MEDS ORDERED: BENZ100C7 PO (19:45)
--- NOTE | 2018-03-29 19:54 | DIAGNOSTIC IMAGING REPORT ---
R SHOULDER MIN 2 VIEWS ROUTINE CLINICAL HISTORY: R anterior shoulder pain pain COMPARISON: None. DISCUSSION: Minimal degenerative change glenohumeral as well as acromioclavicular joints. Minimal calcific supraspinatus tendinitis. No evidence for fracture or dislocation. There is no evidence for soft tissue swelling. IMPRESSION: Minimal degenerative change. Mild calcific supraspinatus tendinitis. The above report was generated using voice recognition software. It may contain grammatical, syntax or spelling errors. Electronically signed by: Edmundo Lam M.D. 03/29/2018 7:53 PM Dictated Date/Time: 03/29/2018 7:52 PM
--- NOTE | 2018-03-29 19:55 | DIAGNOSTIC IMAGING REPORT ---
LUMBAR SPINE 2 OR 3 VIEWS CLINICAL HISTORY: midline and b/l paraspinal LBP pain COMPARISON STUDY: No previous studies for comparison. FINDINGS: No evidence for compression deformity. Disc spaces are well-preserved. Mild scoliosis. Vascular calcification of the abdomen or in IMPRESSION: No acute process. Mild degenerative change. Mild scoliosis. The above report was generated using voice recognition software. It may contain grammatical, syntax or spelling errors. Electronically signed by: Edmundo Lam M.D. 03/29/2018 7:54 PM Dictated Date/Time: 03/29/2018 7:53 PM
[2018-03-29 20:04] LABS: CALCIUM 9.7 mg/dl (8.5-10.1); CREATININE 4.69 mg/dl (0.60-1.20); POTASSIUM 3.4 mmol/L (3.5-5.1)
[2018-03-29] MEDS ORDERED: FENTANYL CITRATE INJ 50 MCG/1 ML 2 ML VIAL IV ONE (20:15)
[2018-03-29 20:23] VITALS: BP 139/66; PULSE 90; O2SAT 95
[2018-03-29] MEDS ORDERED: LORA5CHW10 PO (20:59)
== END 2018-03-29 20:55 | disposition home or self-care (01) ==
LOC: C.EDB 18:15 → C.EDA 20:55
DX: M77.9 Enthesopathy, unspecified (principal); M19.90 Unspecified osteoarthritis, unspecified site; E66.9 Obesity, unspecified; E87.1 Hypo-osmolality and hyponatremia; R05 Cough; D64.9 Anemia, unspecified; M54.5 Low back pain; M25.551 Pain in right hip; M25.561 Pain in right knee; Z99.2 Dependence on renal dialysis; E11.9 Type 2 diabetes mellitus without complications; N18.5 Chronic kidney disease, stage 5; I12.0 Hypertensive chronic kidney disease with stage 5 chronic kidney disease or end stage renal disease; I25.2 Old myocardial infarction; Z87.891 Personal history of nicotine dependence; Z79.82 Long term (current) use of aspirin; Z79.4 Long term (current) use of insulin; Z79.899 Other long term (current) drug therapy; Z91.048 Other nonmedicinal substance allergy status; Z91.040 Latex allergy status

== ENCOUNTER 2018-09-19 00:11 | Inpatient (IN) ==
[2018-09-19 01:07] LABS: Basophils # (auto) 0.04 K/uL (0-0.2); Basophils % (auto) 0.4 %; Eosinophils # (auto) 0.16 K/uL (0-0.5); Eosinophils % (auto) 1.4 %; Hemoglobin 9.7 g/dL (12.0-16.0); Immature Granulocytes # (auto) 0.15 K/uL (0.00-0.02); Immature Granulocytes % (auto) 1.3 %; Lymphocytes # (auto) 1.77 K/uL (1.2-3.4); Lymphocytes % (auto) 15.6 %; Mean Corpuscular Hgb Conc 29.4 g/dL (32-36); Mean Corpuscular Volume 96.2 fL (80-100); Mean Platelet Volume 10.5 fL (7.4-10.4); Monocytes % (auto) 7.1 %; Neutrophils % (auto) 74.2 %; Nucleated RBC # (auto) 0.32 K/uL (0-0); Nucleated RBC % (auto) 2.8 %; Platelet Count 354 K/uL (130-400); RDW Coefficient of Variation 17.2 % (11.5-14.5); RDW Standard Deviation 58.6 fL (36.4-46.3); Red Blood Count 3.43 M/uL (4.2-5.4); White Blood Count 11.32 K/uL (4.8-10.8)
--- NOTE | 2018-09-19 01:19 | Emergency Department Note ---
ED Visit Note Physician Evaluation Note: I have personally evaluated and examined this patient. I agree with assessment and plan of Aggie Deleon PA-C. Worsening ischemic toes with developing infection of foot. Fredi Fernandez MD
[2018-09-19 01:26] LABS: Hypochromasia Present; Polychromasia 1+; Toxic Vacuolation Occasional
[2018-09-19 01:38] LABS: Albumin Globulin Ratio 0.4 (0.9-2); Albumin Level 2.2 gm/dl (3.4-5.0); BUN Creatinine Ratio 6.6 (10-20); Bilirubin,Total 0.6 mg/dl (0.2-1); Calcium 8.4 mg/dl (8.5-10.1); Est GFR (African American) 18.3; Est GFR (Non-African American) 15.8; Globulin 5.5 gm/dl (2.5-4.0); Total Protein 7.7 gm/dl (6.4-8.2)
[2018-09-19] MEDS ORDERED: VANCOMYCIN CONSULT ACTIVE PRN ×2 (02:46→05:14)
[2018-09-19] MEDS ORDERED: cefTRIAXone SODIUM 1,000 MG/50 ML BAG IV STA (02:46)
[2018-09-19] MEDS ORDERED: VANCOMYCIN HCL 2,000 MG in SODIUM CHLORIDE 0.9% 500 ML IV ONE (02:46)
[2018-09-19 03:08] LABS: Potassium 3.2 mmol/L (3.5-5.1)
[2018-09-19] MEDS ORDERED: ONDANSETRON INJ 2 MG/ML 2 ML VIAL IV PRN (05:14)
[2018-09-19] MEDS ORDERED: DOCUSATE SODIUM/SENNA 50/8.6MG TAB PO PRN (05:14)
[2018-09-19] MEDS ORDERED: ACETAMINOPHEN 325 MG TAB PO PRN (05:14)
[2018-09-19] MEDS ORDERED: PIPERACILL/TAZOBAC CONSULT ACTIVE PRN (05:14)
[2018-09-19] MEDS ORDERED: LORazepam 0.5 MG TAB PO PRN (05:14)
[2018-09-19] MEDS ORDERED: MECLIZINE HCL 25 MG TAB PO PRN (05:14)
[2018-09-19] MEDS ORDERED: VANCOMYCIN HCL 1,000 MG in SODIUM CHLORIDE 0.9% 250 ML IV SCH (05:14)
[2018-09-19] MEDS ORDERED: HYDROmorphone INJ 0.5 MG/0.5 ML SYR ONE (05:39)
[2018-09-19] MEDS ORDERED: PIPERACILLIN/TAZOBACTAM 4.5 GM in DEXTROSE 5% 100 ML IV STA (05:40)
--- NOTE | 2018-09-19 06:41 | Emergency Department Note ---
History of Present Illness General Chief complaint: Foot Injury/Pain Stated complaint: RIGHT FOOT - PAIN,BLISTERS,PUSS Source: patient and family Mode of arrival: ambulatory Limitations: no limitations History of Present Illness Maximum Pain Intensity: 10 This patient is a 52-year-old female who presents to the emergency department complaining of right foot pain. Most of the history is obtained from the patient's niece. She reports that the patient has had problems with poor perfusion in her foot for a while but has had increasing redness in the area for the past 2 days. The patient reports that the foot is becoming more painful. She was at [facility] in [place] last month and had stents placed in the right leg. She then had another stay at [facility] and has only been home for the past 3-4 days. The patient is a dialysis patient and is a diabetic. She also states that she had a cyst on her left second finger which popped and has now turned black in color. She rates her overall discomfort a 6/ 10. She denies any fevers. Home Medications Home Medications Medication Instructions Recorded Confirmed Type aspirin 81 mg PO DAILY 08/16/18 09/19/18 History atorvastatin 40 mg PO DAILY 08/16/18 09/19/18 History clopidogrel 75 mg PO DAILY 08/16/18 09/19/18 History insulin glargine 25 units SUBCUT HS 08/16/18 09/19/18 History nitroglycerin 0.4 mg SUBLINGUAL DIRECTED PRN 08/16/18 09/19/18 History pantoprazole 40 mg PO DAILY 08/16/18 09/19/18 History sertraline 25 mg PO DAILY 08/16/18 09/19/18 History B complex with C#20-folic acid 1 cap PO DAILY 09/19/18 09/19/18 History [Nephrocaps] acetaminophen 500 mg PO Q4H PRN 09/19/18 09/19/18 History darbepoetin lillian in polysorbat 60 mcg SUBCUT DIRECTED 09/19/18 09/19/18 History [Aranesp (in polysorbate)] docusate sodium 100 mg PO BID 09/19/18 09/19/18 History fluticasone [Flonase Allergy 1 spray INTRANASAL DAILY 09/19/18 09/19/18 History Relief] gabapentin 100 mg PO TID 09/19/18 09/19/18 History isosorbide mononitrate 60 mg PO DAILY 09/19/18 09/19/18 History levothyroxine 50 mcg PO DAILY 09/19/18 09/19/18 History lorazepam [Ativan] 0.5 mg PO DAILY PRN 09/19/18 09/19/18 History meclizine 25 mg PO TID PRN 09/19/18 09/19/18 History metoprolol succinate 12.5 mg PO BID 09/19/18 09/19/18 History midodrine 10 mg PO TID 09/19/18 09/19/18 History nystatin 1 applic TOPICAL BID 09/19/18 09/19/18 History sennosides-docusate sodium 2 tab PO DAILY PRN 09/19/18 09/19/18 History [Senna-S] sevelamer carbonate [Renvela] 3,200 mg PO TID 09/19/18 09/19/18 History Allergies Allergy/AdvReac Type Severity Reaction Status Date / Time adhesive Allergy Mild RASH, SORES Verified 09/19/18 01:01 No Known Drug Allergies Allergy Mild . Verified 09/19/18 01:01 latex Allergy Unknown rash Verified 09/19/18 01:01 pollen extracts Allergy Unknown WATERY EYES Verified 09/19/18 01:01 Past Med/Surg History Medical History Peripheral vascular disease (Chronic) s/p R SFA angioplasty with 2 stents placed at [facility] on 08/09/18 Arthritis (Chronic) CAD (coronary artery disease) (Chronic) "s/p PCI and BMS to left circumflex 03/2016" Ischemic cardiomyopathy (Chronic) "echo 05/2016 - EF 40-45%, grade I diastolic dysfunction" Carotid stenosis (Chronic) "left ICA" ESRD (end stage renal disease) on dialysis (Chronic) MWF DM type 2 (diabetes mellitus, type 2) (Chronic) GERD (gastroesophageal reflux disease) (Chronic) Allergic rhinitis (Chronic) Morbid obesity (Chronic) Dyslipidemia (Chronic) Tobacco use disorder (Resolved) HTN (hypertension) (Chronic) C. difficile colitis (Resolved) MRSA (methicillin resistant Staphylococcus aureus) colonization Nares Social History Current Living Situation: Alone Current Living Situation Comment: Living with family at this time. Feels Safe at Home: Yes Safety Concerns: Feels Safe At This Time Smoking Status: Never smoker Hx Alcohol Use: No Hx Substance Use: No Beliefs That Will Affect Care: None Preferred Language: Iraqi Communication Ability: Effective Sound Technician Supervisor Required: No Review of Systems A total of 10 systems reviewed and were otherwise negative Physical Exam Vital Signs Vital Signs - 24 hr 09/19/18 00:13 09/19/18 02:11 09/19/18 04:00 Temperature 36.4 C L Temperature Source Oral Sepsis Recent Fever Within 48 Hours No Sepsis New/Unexplained Change in Mental Status No Sepsis Action Taken by Nursing No Action Required Pulse Rate 68 Pulse Rate [Right Radial] 68 63 Pulse Rhythm [Right Radial] Pulse Strength [Right Radial] Respiratory Rate 16 Respiratory Effort / Characteristics Respiratory Depth Respiratory Pattern Blood Pressure 111/70 Blood Pressure [Right Arm] 106/57 L 106/58 L Blood Pressure Mean 83 Blood Pressure Mean [Right Arm] 73 74 Blood Pressure Position [Right Arm] Pulse Oximetry 97 94 94 Oxygen Delivery Method Room Air Room Air Room Air 09/19/18 06:24 Temperature 37.3 C Temperature Source Oral Sepsis Recent Fever Within 48 Hours Sepsis New/Unexplained Change in Mental Status Sepsis Action Taken by Nursing Pulse Rate Pulse Rate [Right Radial] 74 Pulse Rhythm [Right Radial] Regular Pulse Strength [Right Radial] Normal Respiratory Rate 16 Respiratory Effort / Characteristics Non-Labored Spontaneous Respiratory Depth Normal Respiratory Pattern Regular Blood Pressure Blood Pressure [Right Arm] 108/68 Blood Pressure Mean Blood Pressure Mean [Right Arm] 81 Blood Pressure Position [Right Arm] Lying Pulse Oximetry 92 Oxygen Delivery Method Room Air VITALS: Vitals are noted on the nurse's note and reviewed by myself. Vital signs stable. GENERAL: This is a 52-year-old female, in no acute distress, nondiaphoretic, well-developed well-nourished. SKIN: There is a blackened area to the palmar aspect of the left second finger which is tender to palpation. EYES: Pupils equal round and reactive to light and accommodation. MOUTH: Mucous membranes moist. NECK: Supple without nuchal rigidity. HEART: Regular rate and rhythm without murmurs gallops or rubs. LUNGS: Clear to auscultation bilaterally without wheezes, rales or rhonchi. EXTREMITIES: The right first, third, fourth and fifth toes are blackened and necrotic. There is surrounding erythema to the lateral aspect of the foot as well as the heel. There is some mild erythema to the left great toe. No tenderness of the calves or knees. Dorsalis pedis pulses 1+. NEURO: Patient was alert and oriented to person place and time. Course Consultations Consultation #1: Dr. [facility] hospitalist Administered Medications Levothyroxine Sodium (Synthroid) 50 mcg PO DAILYBB JIHAN Stop: 10/19/18 06:29 Last Admin: 09/19/18 07:40 Dose: 50 mcg Midodrine (Proamatine) 10 mg PO TID@0600,1200,1800 JIHAN Stop: 10/19/18 06:44 Last Admin: 09/19/18 07:40 Dose: 10 mg Discontinued Medications Hydromorphone HCl (Dilaudid) Confirm Administered Dose 0.5 mg .ROUTE .STK-MED ONE Stop: 09/19/18 05:40 Last Admin: 09/19/18 05:47 Dose: 0.5 mg Vancomycin HCl 2,000 mg/ (Sodium Chloride) 540 mls @ 200 mls/hr IV NOW ONE Stop: 09/19/18 05:27 Last Infusion: 09/19/18 06:59 Dose: 0 mls/hr Admin: 09/19/18 03:30 Dose: 200 mls/hr Ceftriaxone Sodium (Rocephin) 1,000 mg in 50 mls @ 100 mls/hr IV NOW STA Stop: 09/19/18 03:15 Last Infusion: 09/19/18 03:30 Dose: 0 mls/hr Admin: 09/19/18 03:00 Dose: 100 mls/hr Piperacillin Sod/Tazobactam (Sod 4.5 gm/ Dextrose) 120 mls @ 240 mls/hr IV NOW STA Stop: 09/19/18 06:09 Last Infusion: 09/19/18 06:55 Dose: 0 mls/hr Admin: 09/19/18 06:17 Dose: 240 mls/hr Medical Decision Making Differential Diagnosis Differential diagnosis includes cellulitis, osteomyelitis, sepsis, abscess, among others. Medical Records Attestation: I reviewed the patient's medical records. Home Medications Current Medication List: was personally reviewed by me Laboratory Data Attestation: I reviewed the patient's lab results. Result diagrams: 09/19/18 01:00 09/19/18 02:45 Lab Results 09/19/18 09/19/18 09/19/18 Range/Units 01:00 01:00 02:12 WBC 11.32 H (4.8-10.8) K/uL RBC 3.43 L (4.2-5.4) M/uL Hgb 9.7 L (12.0-16.0) g/dL Hct 33.0 L (37-47) % MCV 96.2 (80-100) fL MCH 28.3 (25-34) pg MCHC 29.4 L (32-36) g/dL RDW Std Deviation 58.6 H (36.4-46.3) fL RDW Coeff of Dru 17.2 H (11.5-14.5) % Plt Count 354 (130-400) K/uL MPV 10.5 H (7.4-10.4) fL Immature Gran % (Auto) 1.3 % Neut % (Auto) 74.2 % Lymph % (Auto) 15.6 % [place] % (Auto) 7.1 % Eos % (Auto) 1.4 % Baso % (Auto) 0.4 % Immature Gran # (Auto) 0.15 H (0.00-0.02) K/uL Neut # (Auto) 8.40 H (1.4-6.5) K/uL Lymph # (Auto) 1.77 (1.2-3.4) K/uL [place] # (Auto) 0.80 H (0.11-0.59) K/uL Eos # (Auto) 0.16 (0-0.5) K/uL Baso # (Auto) 0.04 (0-0.2) K/uL Absolute Nucleated RBC 0.32 H (0-0) K/uL Nucleated RBC % (auto) 2.8 % Toxic Vacuolation Occasional Giant Platelets 1+ Polychromasia 1+ Hypochromasia Present Sodium 132 L (136-145) mmol/L Potassium Cancelled (3.5-5.1) mmol/L Chloride 92 L (98-107) mmol/L Carbon Dioxide 32 (21-32) mmol/L Anion Gap 8.0 (3-11) BUN 21 H (7-18) mg/dl Creatinine 3.23 H (0.6-1.2) mg/dl Est Cr Clr Drug Dosing 25.0 ml/min Est GFR ( Amer) 18.3 Est GFR (Non-Af Amer) 15.8 BUN/Creatinine Ratio 6.6 L (10-20) Glucose 150 H (70-99) mg/dl Calcium 8.4 L (8.5-10.1) mg/dl Total Bilirubin 0.6 (0.2-1) mg/dl AST Cancelled (15-37) U/L ALT 511 H (12-78) U/L Alkaline Phosphatase 179 H (45-117) U/L Total Protein 7.7 (6.4-8.2) gm/dl Albumin 2.2 L (3.4-5.0) gm/dl Globulin 5.5 H (2.5-4.0) gm/dl Albumin/Globulin Ratio 0.4 L (0.9-2) 09/19/18 Range/Units 02:45 WBC (4.8-10.8) K/uL RBC (4.2-5.4) M/uL Hgb (12.0-16.0) g/dL Hct (37-47) % MCV (80-100) fL MCH (25-34) pg MCHC (32-36) g/dL RDW Std Deviation (36.4-46.3) fL RDW Coeff of Dru (11.5-14.5) % Plt Count (130-400) K/uL MPV (7.4-10.4) fL Immature Gran % (Auto) % Neut % (Auto) % Lymph % (Auto) % [place] % (Auto) % Eos % (Auto) % Baso % (Auto) % Immature Gran # (Auto) (0.00-0.02) K/uL Neut # (Auto) (1.4-6.5) K/uL Lymph # (Auto) (1.2-3.4) K/uL [place] # (Auto) (0.11-0.59) K/uL Eos # (Auto) (0-0.5) K/uL Baso # (Auto) (0-0.2) K/uL Absolute Nucleated RBC (0-0) K/uL Nucleated RBC % (auto) % Toxic Vacuolation Giant Platelets Polychromasia Hypochromasia Sodium (136-145) mmol/L Potassium 3.2 L (3.5-5.1) mmol/L Chloride (98-107) mmol/L Carbon Dioxide (21-32) mmol/L Anion Gap (3-11) BUN (7-18) mg/dl Creatinine (0.6-1.2) mg/dl Est Cr Clr Drug Dosing ml/min Est GFR ( Amer) Est GFR (Non-Af Amer) BUN/Creatinine Ratio (10-20) Glucose (70-99) mg/dl Calcium (8.5-10.1) mg/dl Total Bilirubin (0.2-1) mg/dl AST 289 H (15-37) U/L ALT (12-78) U/L Alkaline Phosphatase (45-117) U/L Total Protein (6.4-8.2) gm/dl Albumin (3.4-5.0) gm/dl Globulin (2.5-4.0) gm/dl Albumin/Globulin Ratio (0.9-2) Imaging Data Attestation: I personally reviewed and interpreted this imaging study as follows : Radiologist's Impression: XR foot RT min 3V routine IMPRESSION: 1. No acute fractures 2. Arterial calcification 3. Soft tissue calcifications 4. Cystic lucency involving the tuft of distal phalanx the great toe. This is a nonspecific finding. Infection cannot be excluded. Clinical correlation in this regard will be necessary. LEFT INDEX FINGER 3 VIEWS IMPRESSION: 1. No acute fractures 2. Extensive soft tissue calcification adjacent to the distal phalanx of the index finger. This has a wide differential including dystrophic calcifications, metabolic disease, autoimmune disease, as well as posttraumatic etiologies. Blood Pressure Blood Pressure Findings: Normal blood pressure Blood Pressure Disposition: did not require urgent referral MDM Narrative The patient is a 52-year-old female who presents today complaining of worsening infection in her right foot. On exam, patient does have several necrotic toes. She has had recent extensive hospitalizations for this issue. She now has worsening redness and pain in the area concerning for infection. Fortunately she is not febrile and does not appear to be septic. However, I do think at this point the patient would benefit from hospitalization and surgical consultation. Labs revealed a mild leukocytosis. Patient has elevated creatinine and electrolyte abnormalities consistent with chronic kidney disease. She was started on vancomycin and Rocephin and was admitted to the [facility] service for further evaluation and care. The patient was independently evaluated by Dr. Fernandez, who agreed with my assessment and treatment plan. Impression & Plan Cellulitis of foot, right Discharge Plan Visit Data *Final* Discharge Date/Time: 09/19/18 04:43 Chief Complaint: Foot Injury/Pain Stated Complaint: RIGHT FOOT - PAIN,BLISTERS,PUSS ED Provider: Fredi Fernandez ED Midlevel Provider: Aggie Deleon Discharge Problem: Cellulitis of foot, right Patient Disposition: Admitted As Inpatient Discharge Instructions Interventions: ED Discharge Assessment Last Done: 09/19/18 04:43
--- NOTE | 2018-09-19 06:53 | XRay Report ---
XR foot RT min 3V routine CLINICAL HISTORY: Right foot infection COMPARISON: None. DISCUSSION: There are vascular calcifications present. There are soft tissue calcifications present a djacent the proximal phalanges of the third and fifth fingers. There is also soft tissue calcificatio n adjacent to the tuft of the distal phalanx the great toe. There is a lucency involving the tuft of the distal phalanx the great toe. This is a nonspecific finding. Infection cannot be excluded. There is a plantar calcaneal spur. No acute fractures are visualized. There are mild degenerative changes the level the first metatarsal phalangeal joint. IMPRESSION: 1. No acute fractures 2. Arterial calcification 3. Soft tissue calcifications 4. Cystic lucency involving the tuft of distal phalanx the great toe. This is a nonspecific finding. Infection cannot be excluded. Clinical correlation in this regard will be necessary. Electronically signed by: Daniel Saenz M.D. 09/19/2018 6:52 AM
[2018-09-19] MEDS ORDERED: INSULIN ASPART 100 UNITS/ML 3 ML PEN SC SCH (07:00)
--- NOTE | 2018-09-19 07:09 | XRay Report ---
LEFT INDEX FINGER 3 VIEWS CLINICAL HISTORY: left index finger wound COMPARISON: September 29, 2016 DISCUSSION: No acute fractures are visualized. There are extensive soft tissue calcifications anterio r to the distal phalanx of the index finger. IMPRESSION: 1. No acute fractures 2. Extensive soft tissue calcification adjacent to the distal phalanx of the index finger. This has a wide differential including dystrophic calcifications, metabolic disease, autoimmune disease, as wel l as posttraumatic etiologies. Electronically signed by: Daniel Saenz M.D. 09/19/2018 7:08 AM
[2018-09-19] MEDS: MIDODRINE HCL 10 MG TAB PO SCH ×3 (07:40→19:03)
[2018-09-19] MEDS: LEVOTHYROXINE SODIUM 50 MCG TABLET PO SCH (07:40)
--- NOTE | 2018-09-19 07:40 | History and Physical Report ---
DATE OF ADMISSION: 09/19/2018 CHIEF COMPLAINT: Gangrenous right toes. HISTORY OF PRESENT ILLNESS: This is a 52-year-old female with past medical history significant for end-stage renal disease on hemodialysis, CAD with 2 stents, ischemic cardiomyopathy, EF of 35%, diabetes type 2, hypertension, hyperlipidemia, status post carotid endarterectomy and peripheral vascular disease, status post right SFA angioplasty and 2 stents placement at [facility] on August 09 and was discharged on plavix and advised to continue statin and aspirin and follow up with and wound clinic.Again was admitted to the [facility] on August 17 because of the symptomatic hypotension from the dialysis clinic. The patient was still experiencing pain and tingling in the right foot. but at time Dr. Jones was not available, and the arterial Doppler shows no wave from right dorsalis pedis and vascular surgery at [facility] had accepted the patient and she stayed in [place] from August 18 to September 02. She was treated with antibiotics for few days, but no documented infection was discovered at that time.Her hospital stay at [place] was complicated by encephalopathy and hypotension and shock liver and that improved, but the toes of her right foot was again with blackish discoloration, and at [place], they thought that the patient might auto amputated as it was dry gangrene or she may need TMA, she was asked to followup on today, 09/19/2018 with vascular surgery and she was discharged.But today again the patient at the gangrenous right toe, she found some blisters and they were open and there was some drainage coming from it, so she came to the ER here today. There is some mild reddish erythematous changes noted around the gangrenous toes. The patient is also complaining of right ring finger distal palmar aspect blackish discoloration, first it was cyst there, now it turned into black and she has throbbing pain and she also has a cyst at the left finger and that is also throbbing and she is feeling numb in the fingertips.She is not ambulating much. She has been using a special boot. She sits on the wheelchair and only stands up in the bathroom and comes back, and lies in the bed. She lives with her niece who is taking full care of her.Because of going to the dialysis unit and lying on the bed and bed pans she is developing sores in the back that is also causing her trouble. Her niece told her that when she did wiping from rectum, they noticed some blood. There was also heme-positive stool at [place] and they thought it could be from hemorrhoids and they want to wait and see and she is to follow up as outpatient. Currently, the patient is resting comfortably, hemodynamically stable. Denies any headache, no cough, no sore throat. She has some blurred visions because of the cataracts, supposed to follow with the ophthalmology for laser procedure. Denies any chest pain, no shortness of breath, some nausea. No abdominal pain, somewhat constipated. Makes little urine. Appetite is okay. ALLERGIES: ADHESIVE TAPES, LATEX. PAST MEDICAL HISTORY: As mentioned above. PAST SURGICAL HISTORY: AV access, EGDs, right SFA angioplasty, 2 stent placements, right popliteal artery angioplasty on 08/10/2018, right lower extremity angiogram, right anterior tibial artery angioplasty 08/10/2018. MEDICATIONS: The patient is on gabapentin 100 mg p.o. t.i.d., Antivert 12.5 mg p.o. t.i.d. p.r.n., metoprolol tartrate 12.5 mg p.o. b.i.d., Nystatin topically to affected areas b.i.d., Senokot-S 2 tablets p.o. b.i.d., levothyroxine 50 mcg p.o. daily, midodrine 10 mg p.o. t.i.d., Renvela 800 mg 4 tablets p.o. t.i.d. with meals, Lipitor 40 mg p.o. daily, Plavix 75 mg p.o. daily, Lantus 50 units sliding scale at bedtime, Imdur 60 mg p.o. daily, Protonix 40 mg p.o. daily, Zoloft 25 mg p.o. daily, Ativan 0.5 mg p.o. daily p.r.n., renal vitamin 1 mg 1 capsule daily, Colace 100 mg p.o. b.i.d., Tylenol 500 mg p.o. q. 6 hours p.r.n., Flonase 2 sprays into each nostril daily, aspirin 81 mg p.o. daily. FAMILY HISTORY: Significant for: Mother has heart disorder, hypertension, stroke, thyroid disorder, diabetes. Father has diabetes, heart disorder, hypertension, dementia. SOCIAL HISTORY: lives with niece, former smoker, smoked on an average of 0.3 packs a day for 10 year. Alcohol occasionally. No drug use. REVIEW OF SYMPTOMS: As per HPI. Rest of review of symptoms is negative. PHYSICAL EXAMINATION: GENERAL: The patient is obese, not in acute distress. VITAL SIGNS: Temperature 36.4, pulse 63, respiratory rate 16, blood pressure 106/58, oxygen 94% room air. HEENT: No pallor, no icterus. Pupils equal, round, and react to light. NECK: No JVD, no neck masses, no carotid bruits. CARDIOVASCULAR: S1, S2 heard, regular rate and rhythm. No murmur, no gallop. RESPIRATORY SYSTEM: Clear to auscultation bilaterally. No wheezing, no crackles. ABDOMEN: Soft, bowel sounds present. Nontender. No distention. CENTRAL NERVOUS SYSTEM: Nonfocal. EXTREMITIES: Gangrenous right toes and some erythematous changes also noted at the gangrenous toes and also black discretion of the right distal, middle of the ring finger. LABORATORIES: WBC 11.3, hemoglobin 9.7, hematocrit 33, platelets 354. Sodium 132, potassium 3.2, chloride 92, bicarbonate 32, BUN 21, creatinine 3.23, glucose 150, calcium 8.4, total bilirubin 0.6, AST 289, ALT 511, alkaline phosphatase 179. EKG: Normal sinus rhythm, rate of 68, prolonged QT at 493. ASSESSMENT AND PLAN: This is a 52-year-old female who presents with gangrenous right foot and also possible infection of the right ring finger. 1. Gangrenous right foot. The patient has ischemic ulcer of the right toes, right foot, status post right SFA angioplasty and 2 stents at the right popliteal artery, angioplasty on 08/10/2018 at [place] and she was supposed to follow the wound care and she again came to the [facility] on August 17 with hypotension and also having pain in the right foot. At that time, she was transferred back to [place] where she had hypotension and shock liver and encephalopathy which improved and she received antibiotic a few days and thought that her gangrenous toes will auto amputate. If not, she may need TMA, supposed to follow with vascular surgery today, but she came back because the blisters around the toe were broken and she has some drainage seen there. We will empirically start on IV Zosyn and IV vancomycin. Await blood cultures and consult vascular surgery for possible TMA. Close monitor in the medical floor. 2. Possible infection of the right fore finger. Antibiotics as above and consult orthopedics, await the input. We will follow the blood cultures. Consider echocardiogram. 3. End-stage renal disease, on hemodialysis. We will consult nephrology. 4. The patient with chronic systolic congestive heart failure with ischemic cardiomyopathy, EF of 35%. Fluid management as per dialysis. The patient is on Lopressor, aspirin, Plavix, statin. 5. Diabetes. The patient is on Lantus and NovoLog. We will cut the Lantus to 10 units at bedtime. The patient will be n.p.o. for now and continue insulin sliding scale. Follow the blood sugars. Follow HbA1c levels. 6. History of hypertension. Continue her metoprolol, Imdur. Monitor the blood pressures. 7. Depression. Continue Zoloft. 8. Hypothyroidism. Continue Synthroid. 9. Coronary artery disease, currently stable, on aspirin, statin, Imdur and Lopressor. 10. Carotid stenosis, left carotid endarterectomy, on aspirin, Plavix and statin. 11. Hyperlipidemia, statin. 12. Gastroesophageal reflux disease. On PPI. 13. Deep venous thrombosis prophylaxis. We will place her on SCDs for now for possible procedures. 14. Disposition: Admit to med/surg. PT and OT prior to discharge. Social Service to help with discharge planning. Code status level 1 full code. MTDD
[2018-09-19] MEDS ORDERED: SERTRALINE HCL 50 MG TABLET PO SCH (09:00)
[2018-09-19] MEDS: ASPIRIN 81 MG ECTAB PO SCH (09:39)
[2018-09-19] MEDS: NEPHROCAPS PO SCH (09:39)
[2018-09-19] MEDS: GABAPENTIN 100 MG CAP PO SCH ×3 (09:39→20:26)
[2018-09-19] MEDS: METOPROLOL SUCC 25MG EXT REL TAB PO SCH ×2 (09:39→20:29)
[2018-09-19] MEDS: ATORVASTATIN 40 MG TAB PO SCH (09:39)
[2018-09-19] MEDS: SEVELAMER HCL 800 MG TABLET PO SCH ×3 (09:40→18:30)
[2018-09-19] MEDS: FLUTICASONE PROPIONATE NA SPR 16 GM BTL SCH (09:41)
[2018-09-19] MEDS: CLOPIDOGREL BISULFATE 75 MG TAB PO SCH (09:41)
[2018-09-19] MEDS: DOCUSATE SODIUM 100 MG CAP PO SCH ×2 (09:41→20:25)
[2018-09-19] MEDS: PANTOprazole 40 MG TAB PO SCH (09:41)
[2018-09-19] MEDS: NYSTATIN POWDER 15GM BTL EXT SCH ×2 (09:41→20:26)
[2018-09-19] MEDS: ISOSORBIDE MONO EXTENDED REL 60 MG TABCR PO SCH (09:42)
--- NOTE | 2018-09-19 10:06 | Consultation ---
Date of Consultation September 19, 2018 Assessment & Plan (1) Gangrene of toe of right foot: This point recommend a transmetatarsal amputation of the right foot. If this does not heal then further arteriography may be needed. The transmetatarsal amputation will be scheduled for afternoon. I have discussed the risks options and benefits of the procedure with the patient. The patient understands the risks options and benefits and agrees to the procedure. Thank you very much for letting us participate in the care of this patient. History of Present Illness Reason for Consultation: Gangrene of toes the right foot. Attending Physician: Spring Torres MD History of Present Illness This part of the history is from the admission H&P being that is so detailed. "This is a 52-year-old female with past medical history significant for end-stage renal disease on hemodialysis, CAD with 2 stents, ischemic cardiomyopathy, EF of 35%, diabetes type 2, hypertension, hyperlipidemia, status post carotid endarterectomy and peripheral vascular disease, status post right SFA angioplasty and 2 stents placement at [facility] on August 09 and was discharged on plavix and advised to continue statin and aspirin and follow up with and wound clinic.Again was admitted to the [facility] on August 17 because of the symptomatic hypotension from the dialysis clinic. The patient was still experiencing pain and tingling in the right foot. but at time Dr. Jones was not available, and the arterial Doppler shows no wave from right dorsalis pedis and vascular surgery at [facility] had accepted the patient and she stayed in [place] from August 18 to September 02. She was treated with antibiotics for few days, but no documented infection was discovered at that time.Her hospital stay at [place] was complicated by encephalopathy and hypotension and shock liver and that improved, but the toes of her right foot was again with blackish discoloration, and at [place], they thought that the patient might auto amputated as it was dry gangrene or she may need TMA, she was asked to followup on today, 09/19/2018 with vascular surgery and she was discharged." She now came to emergency room with drainage from the lateral aspect of her fifth toe with blistering. She denies any pain in the toes but she does claim that her foot has redness on occasion. The blisters occurred over the last few days and have drained since admission. She denies any rest pain in the foot. She also complains of throbbing pain in the left second finger. This is an area of eschar. Allergies Allergy/AdvReac Type Severity Reaction Status Date / Time adhesive Allergy Mild RASH, SORES Verified 09/19/18 01:01 No Known Drug Allergies Allergy Mild . Verified 09/19/18 01:01 latex Allergy Unknown rash Verified 09/19/18 01:01 pollen extracts Allergy Unknown WATERY EYES Verified 09/19/18 01:01 Home Medications Home Medications Medication Instructions Recorded Confirmed Type aspirin 81 mg PO DAILY 08/16/18 09/19/18 History atorvastatin 40 mg PO DAILY 08/16/18 09/19/18 History clopidogrel 75 mg PO DAILY 08/16/18 09/19/18 History insulin glargine 25 units SUBCUT HS 08/16/18 09/19/18 History nitroglycerin 0.4 mg SUBLINGUAL DIRECTED PRN 08/16/18 09/19/18 History pantoprazole 40 mg PO DAILY 08/16/18 09/19/18 History sertraline 25 mg PO DAILY 08/16/18 09/19/18 History B complex with C#20-folic acid 1 cap PO DAILY 09/19/18 09/19/18 History [Nephrocaps] acetaminophen 500 mg PO Q4H PRN 09/19/18 09/19/18 History darbepoetin lillian in polysorbat 60 mcg SUBCUT DIRECTED 09/19/18 09/19/18 History [Aranesp (in polysorbate)] docusate sodium 100 mg PO BID 09/19/18 09/19/18 History fluticasone [Flonase Allergy 1 spray INTRANASAL DAILY 09/19/18 09/19/18 History Relief] gabapentin 100 mg PO TID 09/19/18 09/19/18 History isosorbide mononitrate 60 mg PO DAILY 09/19/18 09/19/18 History levothyroxine 50 mcg PO DAILY 09/19/18 09/19/18 History lorazepam [Ativan] 0.5 mg PO DAILY PRN 09/19/18 09/19/18 History meclizine 25 mg PO TID PRN 09/19/18 09/19/18 History metoprolol succinate 12.5 mg PO BID 09/19/18 09/19/18 History midodrine 10 mg PO TID 09/19/18 09/19/18 History nystatin 1 applic TOPICAL BID 09/19/18 09/19/18 History sennosides-docusate sodium 2 tab PO DAILY PRN 09/19/18 09/19/18 History [Senna-S] sevelamer carbonate [Renvela] 3,200 mg PO TID 09/19/18 09/19/18 History Patient History Medical History Peripheral vascular disease (Chronic) s/p R SFA angioplasty with 2 stents placed at [facility] on 08/09/18 Arthritis (Chronic) CAD (coronary artery disease) (Chronic) "s/p PCI and BMS to left circumflex 03/2016" Ischemic cardiomyopathy (Chronic) "echo 05/2016 - EF 40-45%, grade I diastolic dysfunction" Carotid stenosis (Chronic) "left ICA" ESRD (end stage renal disease) on dialysis (Chronic) MWF DM type 2 (diabetes mellitus, type 2) (Chronic) GERD (gastroesophageal reflux disease) (Chronic) Allergic rhinitis (Chronic) Morbid obesity (Chronic) Dyslipidemia (Chronic) Tobacco use disorder (Resolved) HTN (hypertension) (Chronic) C. difficile colitis (Resolved) MRSA (methicillin resistant Staphylococcus aureus) colonization Nares Surgical History Hemodialysis access, AV graft (Chronic) "[facility] Dr. Jones 08/25/12" History of left-sided carotid endarterectomy (Resolved) Family History Other Diabetes Heart disease Social History Current Living Situation: Alone Current Living Situation Comment: Living with family at this time. Feels Safe at Home: Yes Safety Concerns: Feels Safe At This Time Smoking Status: Never smoker Hx Alcohol Use: No Hx Substance Use: No Beliefs That Will Affect Care: None Preferred Language: Polish Communication Ability: Effective Parking Cashier Required: No Review of Systems No pertinent positive findings other than the HPI. Physical Exam 2 Vital Signs (Past 24 Hours): Last Vital Signs Temp 36.6 C 09/19/18 08:00 Pulse 64 09/19/18 08:00 Resp 16 09/19/18 08:00 BP 105/69 09/19/18 08:00 Pulse Ox 93 09/19/18 08:00 Constitutional: WD/WN, vitals as above + overweight Neck: trachea midline Respiratory: normal respiratory effort, lungs clear to auscultation Cardiovascular: RRR, no murmur, no edema Heart Sounds: normal S1 and normal S2 Vessels: femoral pulses present (Bilaterally) and radial pulses present (I cannot feel a radial pulse in the left.); + posterior tibial pulses abnormal (Not palpable) and + dorsalis pedis pulses abnormal (Not palpable) Extremities: normal capillary refill and + AV fistula (Left upper arm) Gastrointestinal (Abdomen): Inspection/Auscultation: abdomen normal to inspection Percussion/Palpation: abdomen soft; abdomen nontender Musculoskeletal: Extremities: extremities normal to inspection (Gangrene of the toes of the right foot) and strength 5/5 throughout Skin: Gangrene of toes the right foot Neurologic: CN's II-XI intact bilaterally and moves all extremities Motor/ Sensory: no sensory deficit Psychiatric: Orientation: alert and oriented x 3 Lymphatic: no lymphedema
[2018-09-19] MEDS ORDERED: Nursing to Pharmacy Communication ONE ×2 (10:31→10:57)
--- NOTE | 2018-09-19 11:06 | Pharmacy Report ---
Pharmacy Abx Initial Consult - Date of Service September 19, 2018 - Pharmacy Dosing Scope Date of Consult: 09/19/18 Consultation requested by: Dr. Canchola Pharmacy is consulted to initiate vancomycin IV dosing therapy, order appropriate labs and adjust drug dose/frequency. - Subjective The patient is a 52 year old F admitted on 09/19/18 04:11. - Objective Height: 5 ft 6 in Weight: 101.4 kg Vital Signs (Past 12hrs): Vital Signs Temp Pulse Pulse Resp BP BP Pulse Ox 09/19/18 10:04 36.3 C L 64 14 119/80 97 09/19/18 08:00 36.6 C 64 16 105/69 93 09/19/18 06:24 37.3 C 74 16 108/68 92 09/19/18 04:00 63 106/58 L 94 09/19/18 02:11 68 106/57 L 94 09/19/18 00:13 36.4 C L 68 16 111/70 97 Lab Results (24hrs): Laboratory Tests (24 Hours) 09/19/18 09/19/18 01:00 01:00 WBC 11.32 H Neut # (Auto) 8.40 H Creatinine 3.23 H Est Cr Clr Drug Dosing 25.0 Micro Results: 09/19/18 07:07 Blood Culture - Pending Blood 09/19/18 07:20 Blood Culture - Pending Blood - Risk Factors for Resistance * Hospitalization for 48 hours or more within the past 90 days * Chronic dialysis within the past 30 days * Antimicrobial use within the last 90 days (on vanc and zosyn during Jul 2018 admission) - Assessment & Plan Assessment 52 year old F with severe PAD, gangrenous right foot and possible infection of right ring finger * Multiple recent hospital admissions; [facility] on 09/10/17, [facility] on 08/17/18, then transferred back to [facility] * Scheduled for transmetatarsal amputation on afternoon * ESRD on HD Plan Vancomycin IV * Loading dose: 2000 mg (19.4 mg/kg) given in the ED * Goal trough level for recurrent gangrenous R foot: 15 to 20 mcg/mL * Waiting for Nephrology to see patient to determine inpatient HD scheduled. Will order random level for 1/30 AM in the meantime. Piperacillin/tazobactam * 4.5 g bolus administered over 30 minutes, then 4.5 g IV extended infusion every 12 hours for CrCl 20 mL/min or less and dialysis. * Aggressive dosing selected due to critically ill status/BMI 35 or more/ history of cystic fibrosis. Pharmacy will continue to follow and will adjust dose/frequency as necessary. Thank you.
[2018-09-19] MEDS: CARBOHYDRATES FOR HYPOGLYCEMIA PO PRN ×2 (12:15→12:30)
[2018-09-19] MEDS ORDERED: GLUCOSE 40% GEL 15 GM TUBE PO PRN (12:46)
[2018-09-19] MEDS ORDERED: GLUCOSE 10 TABS/TUBE PO PRN (12:46)
[2018-09-19] MEDS ORDERED: DEXTROSE 50% 50 ML SYRINGE IV PRN (12:46)
[2018-09-19] MEDS ORDERED: GLUCAGON FOR INJ 1 MG VIAL IM PRN (12:46)
[2018-09-19] MEDS: PIPERACILLIN/TAZOBACTAM 4.5 GM in DEXTROSE 5% 100 ML IV SCH (13:35)
[2018-09-19] MEDS: INSULIN ASPART 100 UNITS/ML 3 ML PEN SC SCH ×3 (13:35→20:36)
[2018-09-19] MEDS: HYDROmorphone INJ 0.5 MG/0.5 ML SYR IV PRN ×2 (13:53→20:46)
--- NOTE | 2018-09-19 16:32 | Nephrology Consultation ---
Date of Consultation September 19, 2018 Assessment & Plan (1) ESRD (end stage renal disease) on dialysis: plan routine HD tomorrow; on urgent indication for acute tx; her blood pressures are at baseline and chronically low; consider albumin w/ HD; avf = access -daily bmp -lower K today and will supplement 20 mEq -cont midodrine certainly on dialysis days -antibiotics and surgery per primary svc and vascular -routine anemia meds w/ HD Present on Admission?: Yes History of Present Illness Reason for Consultation: esrd Requesting Physician: Dr torres Attending Physician: Spring Torres MD History of Present Illness 52 y/o F on MWF HD via avf admitted this morning for mgt of complications of PVD / infection after presenting w/ worsening R foot pain. TMA R foot planned for 09/21. PMH includes DM, CAD w/ stents, ICMO EF 35%, DM2, PVD s/ p R SFA angioplasty and 2 stents, also s/p R CEA. Recently had prolonged [facility] admission 08/18-09/02 for gangrenous toes R foot (managed conservatively) and c/b metabolic encephalopathy, shock liver. She had been at [facility] until a few days ago. She is getting zosyn currently. also on tid midodrine 10 mg; she is not sure whether she takes this tid or only on dialysis days or prn. her last HD was yesterday as outpatient at [facility]. Allergies Allergy/AdvReac Type Severity Reaction Status Date / Time adhesive Allergy Mild RASH, SORES Verified 09/19/18 01:01 No Known Drug Allergies Allergy Mild . Verified 09/19/18 01:01 latex Allergy Unknown rash Verified 09/19/18 01:01 pollen extracts Allergy Unknown WATERY EYES Verified 09/19/18 01:01 Home Medications Home Medications Medication Instructions Recorded Confirmed Type aspirin 81 mg PO DAILY 08/16/18 09/19/18 History atorvastatin 40 mg PO DAILY 08/16/18 09/19/18 History clopidogrel 75 mg PO DAILY 08/16/18 09/19/18 History insulin glargine 25 units SUBCUT HS 08/16/18 09/19/18 History nitroglycerin 0.4 mg SUBLINGUAL DIRECTED PRN 08/16/18 09/19/18 History pantoprazole 40 mg PO DAILY 08/16/18 09/19/18 History sertraline 25 mg PO DAILY 08/16/18 09/19/18 History B complex with C#20-folic acid 1 cap PO DAILY 09/19/18 09/19/18 History [Nephrocaps] acetaminophen 500 mg PO Q4H PRN 09/19/18 09/19/18 History darbepoetin lillian in polysorbat 60 mcg SUBCUT DIRECTED 09/19/18 09/19/18 History [Aranesp (in polysorbate)] docusate sodium 100 mg PO BID 09/19/18 09/19/18 History fluticasone [Flonase Allergy 1 spray INTRANASAL DAILY 09/19/18 09/19/18 History Relief] gabapentin 100 mg PO TID 09/19/18 09/19/18 History isosorbide mononitrate 60 mg PO DAILY 09/19/18 09/19/18 History levothyroxine 50 mcg PO DAILY 09/19/18 09/19/18 History lorazepam [Ativan] 0.5 mg PO DAILY PRN 09/19/18 09/19/18 History meclizine 25 mg PO TID PRN 09/19/18 09/19/18 History metoprolol succinate 12.5 mg PO BID 09/19/18 09/19/18 History midodrine 10 mg PO TID 09/19/18 09/19/18 History nystatin 1 applic TOPICAL BID 09/19/18 09/19/18 History sennosides-docusate sodium 2 tab PO DAILY PRN 09/19/18 09/19/18 History [Senna-S] sevelamer carbonate [Renvela] 3,200 mg PO TID 09/19/18 09/19/18 History Patient History Medical History Peripheral vascular disease (Chronic) s/p R SFA angioplasty with 2 stents placed at [facility] on 08/09/18 Arthritis (Chronic) CAD (coronary artery disease) (Chronic) "s/p PCI and BMS to left circumflex 03/2016" Ischemic cardiomyopathy (Chronic) "echo 05/2016 - EF 40-45%, grade I diastolic dysfunction" Carotid stenosis (Chronic) "left ICA" ESRD (end stage renal disease) on dialysis (Chronic) MWF DM type 2 (diabetes mellitus, type 2) (Chronic) GERD (gastroesophageal reflux disease) (Chronic) Allergic rhinitis (Chronic) Morbid obesity (Chronic) Dyslipidemia (Chronic) Tobacco use disorder (Resolved) HTN (hypertension) (Chronic) C. difficile colitis (Resolved) MRSA (methicillin resistant Staphylococcus aureus) colonization Nares Surgical History Hemodialysis access, AV graft (Chronic) "[facility] Dr. Jones 08/25/12" History of left-sided carotid endarterectomy (Resolved) Family History Other Diabetes Heart disease Social History marital status: / Current Living Situation: Alone Current Living Situation Comment: Living with family at this time. Feels Safe at Home: Yes Safety Concerns: Feels Safe At This Time Smoking Status: Never smoker Hx Alcohol Use: No Hx Substance Use: No Beliefs That Will Affect Care: None Communication Ability: Effective Review of Systems Constitutional: + fatigue and + weakness Eyes: no worsening vision Ear, Nose, Mouth, Throat: + dry mouth Respiratory: no cough and no dyspnea Cardiovascular: + lightheadedness; no chest pain, no palpitations and no edema Gastrointestinal: no abdominal pain, no early satiety, no vomiting and no change in bowel habits minimal uop but no change in chronic voiding habits Musculoskeletal: + joint pain Integumentary: + non-healing lesions and + wounds Neurologic: + localized weakness; no abnormal speech and no confusion Psychiatric: + depression (about planned amputation) Endocrine: + fatigue Hematologic / Lymphatic: no easy bleeding Physical Exam 2 Vital Signs (Past 24 Hours): Last Vital Signs Temp 36.6 C 09/19/18 15:25 Pulse 69 09/19/18 15:25 Resp 17 09/19/18 15:25 BP 92/56 L 09/19/18 15:25 Pulse Ox 93 09/19/18 15:25 Constitutional: well developed and well nourished lying flat on ra in the dark, very tired but wakens fully Eyes: EOM intact bilaterally ENMT: Ears: no external ear abnormality Nose: no external nose abnormality Mouth: + dry oral mucous membranes Neck: no nuchal rigidity Respiratory: normal respiratory effort Auscultation: + diminished lung sounds Cardiovascular: RRR, no murmur, no edema Extremities: + AV fistula (+ t/b) Gastrointestinal (Abdomen): Inspection/Auscultation: normal bowel sounds Percussion/Palpation: abdomen soft; abdomen nontender Musculoskeletal: Extremities: strength 5/5 throughout Skin: no rashes, warm and dry R distal foot bandaged Neurologic: stein, fluent speech, no tremor Psychiatric: Orientation: oriented x 3 Eye Contact: + fair eye contact Affect: + depressed affect and + flat affect Results & Data Laboratory Results Abnormal lab results 09/19/18 09/19/18 09/19/18 Range/Units 01:00 01:00 02:45 WBC 11.32 H (4.8-10.8) K/uL RBC 3.43 L (4.2-5.4) M/uL Hgb 9.7 L (12.0-16.0) g/dL Hct 33.0 L (37-47) % MCHC 29.4 L (32-36) g/dL RDW Std Deviation 58.6 H (36.4-46.3) fL RDW Coeff of Dru 17.2 H (11.5-14.5) % MPV 10.5 H (7.4-10.4) fL Immature Gran # (Auto) 0.15 H (0.00-0.02) K/uL Neut # (Auto) 8.40 H (1.4-6.5) K/uL [place] # (Auto) 0.80 H (0.11-0.59) K/uL Absolute Nucleated RBC 0.32 H (0-0) K/uL Sodium 132 L (136-145) mmol/L Potassium 3.2 L (3.5-5.1) mmol/L Chloride 92 L (98-107) mmol/L BUN 21 H (7-18) mg/dl Creatinine 3.23 H (0.6-1.2) mg/dl BUN/Creatinine Ratio 6.6 L (10-20) Glucose 150 H (70-99) mg/dl POC Glucose (70-99) Calcium 8.4 L (8.5-10.1) mg/dl AST 289 H (15-37) U/L ALT 511 H (12-78) U/L Alkaline Phosphatase 179 H (45-117) U/L Albumin 2.2 L (3.4-5.0) gm/dl Globulin 5.5 H (2.5-4.0) gm/dl Albumin/Globulin Ratio 0.4 L (0.9-2) 09/19/18 09/19/18 Range/Units 12:14 12:33 WBC (4.8-10.8) K/uL RBC (4.2-5.4) M/uL Hgb (12.0-16.0) g/dL Hct (37-47) % MCHC (32-36) g/dL RDW Std Deviation (36.4-46.3) fL RDW Coeff of Dru (11.5-14.5) % MPV (7.4-10.4) fL Immature Gran # (Auto) (0.00-0.02) K/uL Neut # (Auto) (1.4-6.5) K/uL [place] # (Auto) (0.11-0.59) K/uL Absolute Nucleated RBC (0-0) K/uL Sodium (136-145) mmol/L Potassium (3.5-5.1) mmol/L Chloride (98-107) mmol/L BUN (7-18) mg/dl Creatinine (0.6-1.2) mg/dl BUN/Creatinine Ratio (10-20) Glucose (70-99) mg/dl POC Glucose 62 L* 64 L* (70-99) Calcium (8.5-10.1) mg/dl AST (15-37) U/L ALT (12-78) U/L Alkaline Phosphatase (45-117) U/L Albumin (3.4-5.0) gm/dl Globulin (2.5-4.0) gm/dl Albumin/Globulin Ratio (0.9-2)
[2018-09-19] MEDS ORDERED: FLUCONAZOLE 50 MG TAB PO ONE (17:00)
--- NOTE | 2018-09-19 18:15 | Orthopedic Consultation ---
Date of Consultation September 19, 2018 Assessment & Plan (1) Eschar of finger: Left index finger eschar with underlying calcinosis, does not appear infectious process, unclear etiology at this time. Do not appreciate focal erosions of underlying bone as seen with gout, patient denies trauma however is a poor historian, calcinosis of renal failure possible given the patient's history. Recommend local wound care, would consider checking uric acid level. Patient may require surgical excision of calcinosis however this can be done in outpatient setting, not emergent. May follow up with [facility] [place], Dr. Pryor upon discharge. Thank you for the consultation History of Present Illness Reason for Consultation: Left index finger ?infection Attending Physician: Spring Torres MD History of Present Illness The patient is a 52-year-old female with significant past medical history for end-stage renal disease on hemodialysis, coronary artery disease with 2 stents, ischemic cardiomyopathy, diabetes type 2, hypertension, hyperlipidemia, carotid endarterectomy, peripheral vascular disease, recent SFA angioplasty with 2 stents at [facility]. Currently admitted for worsening cellulitis /gangrene of right lower extremity, being followed by vascular surgery. During current hospitalization patient has complaints of left index finger wound which began 2 months ago however the patient is unsure and is a poor historian. Reports there is a cyst in which it popped 2 weeks prior to today's encounter and she reported serous fluid drained from her index finger. She covered the finger with a Band-Aid and left the Band-Aid in place for 1 week's time, when were removed she noticed a blackened skin overlying the volar aspect of her index finger. Patient denies edema or erythema. She does admit to significant tenderness of the tip of the index finger. Denies trauma to the finger. Allergies Allergy/AdvReac Type Severity Reaction Status Date / Time adhesive Allergy Mild RASH, SORES Verified 09/19/18 01:01 No Known Drug Allergies Allergy Mild . Verified 09/19/18 01:01 latex Allergy Unknown rash Verified 09/19/18 01:01 pollen extracts Allergy Unknown WATERY EYES Verified 09/19/18 01:01 Home Medications Home Medications Medication Instructions Recorded Confirmed Type aspirin 81 mg PO DAILY 08/16/18 09/19/18 History atorvastatin 40 mg PO DAILY 08/16/18 09/19/18 History clopidogrel 75 mg PO DAILY 08/16/18 09/19/18 History insulin glargine 25 units SUBCUT HS 08/16/18 09/19/18 History nitroglycerin 0.4 mg SUBLINGUAL DIRECTED PRN 08/16/18 09/19/18 History pantoprazole 40 mg PO DAILY 08/16/18 09/19/18 History sertraline 25 mg PO DAILY 08/16/18 09/19/18 History B complex with C#20-folic acid 1 cap PO DAILY 09/19/18 09/19/18 History [Nephrocaps] acetaminophen 500 mg PO Q4H PRN 09/19/18 09/19/18 History darbepoetin lillian in polysorbat 60 mcg SUBCUT DIRECTED 09/19/18 09/19/18 History [Aranesp (in polysorbate)] docusate sodium 100 mg PO BID 09/19/18 09/19/18 History fluticasone [Flonase Allergy 1 spray INTRANASAL DAILY 09/19/18 09/19/18 History Relief] gabapentin 100 mg PO TID 09/19/18 09/19/18 History isosorbide mononitrate 60 mg PO DAILY 09/19/18 09/19/18 History levothyroxine 50 mcg PO DAILY 09/19/18 09/19/18 History lorazepam [Ativan] 0.5 mg PO DAILY PRN 09/19/18 09/19/18 History meclizine 25 mg PO TID PRN 09/19/18 09/19/18 History metoprolol succinate 12.5 mg PO BID 09/19/18 09/19/18 History midodrine 10 mg PO TID 09/19/18 09/19/18 History nystatin 1 applic TOPICAL BID 09/19/18 09/19/18 History sennosides-docusate sodium 2 tab PO DAILY PRN 09/19/18 09/19/18 History [Senna-S] sevelamer carbonate [Renvela] 3,200 mg PO TID 09/19/18 09/19/18 History Patient History Medical History Peripheral vascular disease (Chronic) s/p R SFA angioplasty with 2 [place] [facility] [place] Arthritis (Chronic) CAD (coronary artery disease) (Chronic) "s/p PCI and BMS to left circumflex 03/2016" Ischemic cardiomyopathy (Chronic) "echo 05/2016 - EF 40-45%, grade I diastolic dysfunction" Carotid stenosis (Chronic) "left ICA" ESRD (end stage renal disease) on dialysis (Chronic) MWF DM type 2 (diabetes mellitus, type 2) (Chronic) GERD (gastroesophageal reflux disease) (Chronic) Allergic rhinitis (Chronic) Morbid obesity (Chronic) Dyslipidemia (Chronic) Tobacco use disorder (Resolved) HTN (hypertension) (Chronic) C. difficile colitis (Resolved) MRSA (methicillin resistant Staphylococcus aureus) colonization Nares Surgical History Hemodialysis access, AV graft (Chronic) "[facility] Dr. Jones 08/25/12" History of left-sided carotid endarterectomy (Resolved) Family History Other Diabetes Heart disease Social History marital status: / Current Living Situation: Alone Current Living Situation Comment: Living with family at this time. Feels Safe at Home: Yes Safety Concerns: Feels Safe At This Time Smoking Status: Never smoker Hx Alcohol Use: No Hx Substance Use: No Beliefs That Will Affect Care: None Communication Ability: Effective Review of Systems Constitutional: as per Subjective / HPI Physical Exam 2 Vital Signs (Past 24 Hours): Last Vital Signs Temp 36.6 C 09/19/18 15:25 Pulse 69 09/19/18 15:25 Resp 17 09/19/18 15:25 BP 92/56 L 09/19/18 15:25 Pulse Ox 93 09/19/18 15:25 Physical Exam: Left upper extremity is neurovascular sensory intact + median/ ulnar/radial/AIN/PIN, +2 radial pulse, volar index finger has centralized eschar 1 cm x 1.5 cm, without drainage or erythema. Compartments soft and compressible with the exception of exquisite tenderness to palpation overlying the eschar distal index phalanx. Constitutional: WD/WN, vitals as above Results & Data Diagnostic Findings LEFT INDEX FINGER 3 VIEWS CLINICAL HISTORY: left index finger wound COMPARISON: September 29, 2016 DISCUSSION: No acute fractures are visualized. There are extensive soft tissue calcifications anterior to the distal phalanx of the index finger. IMPRESSION: 1. No acute fractures 2. Extensive soft tissue calcification adjacent to the distal phalanx of the index finger. This has a wide differential including dystrophic calcifications, metabolic disease, autoimmune disease, as well as posttraumatic etiologies.
--- NOTE | 2018-09-19 18:43 | Hospitalist Progress Note ---
Date of Service September 19, 2018 Assessment & Plan (1) Gangrene of toe of right foot: . Gangrenous right foot. ulcer of the right toes,right foot, severe PVD : status post right SFA angioplasty and 2 stents at the right popliteal artery, angioplasty on 08/10/2018 at [facility] consulted appreciate input from Dr Jones scheduled for RT TMA on friday 09/22 on IV Zosyn and IV vancomycin. 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 calcinosis no evidence of infection recommend out pt follow up with [facility]o Dr Vu may need excision of calcinosis Present on Admission?: Yes (3) Peripheral vascular disease: severe PVD right SFA angioplasty and 2 stents at the right popliteal artery, angioplasty on 08/10/2018 at [facility] with ischemic /gangrenous toe plan for RT TMA ( transmetatarsal amputation ) on end of the week by Dr Jones Present on Admission?: Yes (4) CAD (coronary artery disease): no complain of chest pain no angina cont on aspirin /imdur/lopressor (5) Ischemic cardiomyopathy: ischemic cardiomyopathy with chronic systolic heart failure no evidence of vol overload on chronic HD ECHO : mild concentric L ventricular hypertrophy left ventricular systolic function moderate to severely reduced EF 30-35% (6) Carotid stenosis: on aspirin /plavix (7) ESRD (end stage renal disease) on dialysis: on Tue//Tuesday schedule Nephrology consulted for routine dialysis (8) DM type 2 (diabetes mellitus, type 2): insulin SSI (9) Hemodialysis access, AV graft: (10) Ingrowing nail, left great toe: pain and swelling on left great toe with + positive erythema evidence of cellulitis due to ingrown toe nail cont Abx Podiatry consulted Subjective feels tired no fever or chills no complain of sob or chest pain no pain or discomfort on rt foot complains of pain and swelling on left toe noted to have erythema with + tenderness on inner side of left great toe -due to ingrown toe nail will need podiatry consult Physical Exam 2 Vital Signs (Past 24 Hours): Last Vital Signs Temp 36.6 C 09/19/18 15:25 Pulse 69 09/19/18 15:25 Resp 17 09/19/18 15:25 BP 92/56 L 09/19/18 15:25 Pulse Ox 93 09/19/18 15:25 Physical Exam: GENERAL: No sign of distress, HEENT: Sclera nonicteric, Normal oral mucosa, Lungs: Clear to auscultate, no wheeze or rales Cardiovascular: Regular S1 and S2, Abdomen: Soft, nontender, bowel sounds active, Extremities:gangrenous rt foot -black /necrotic rt great toe 2nd and 3 rd toe Neuro: No focal neurological deficit, no dysarthria, no facial droop Psych: Alert awake oriented x3: Euthymic _ (1) CAD (coronary artery disease) Coronary Disease-Associated Artery/Lesion type: [place] artery [place] vs. transplanted heart: [place] heart Associated angina: without angina Qualified Code(s): I25.10 - Atherosclerotic heart disease of [place] coronary artery without angina pectoris (2) Carotid stenosis Laterality: unspecified laterality Qualified Code(s): I65.29 - Occlusion and stenosis of unspecified carotid artery (3) DM type 2 (diabetes mellitus, type 2) Diabetes mellitus usp insulin use: with usp use Diabetes mellitus complication status: with circulatory complication Diabetes mellitus complication detail: with peripheral angiopathy with gangrene Diabetic retinopathy severity: Proliferative retinopathy type: Diabetes mellitus macular edema: Laterality: Chronic kidney disease stage: Qualified Code(s) : E11.52 - Type 2 diabetes mellitus with diabetic peripheral angiopathy with gangrene; Z79.4 - group home (current) use of insulin
[2018-09-19] MEDS: SERTRALINE HCL 50 MG TABLET PO SCH (20:26)
[2018-09-19] MEDS: INSULIN GLARGINE SOLOSTAR 100 UNITS/ML 3 ML PEN SC SCH (20:36)
[2018-09-19] MEDS ORDERED: SODIUM CHLORIDE 0.9% 1000ML 1,000 ML IV PRN (20:49)
[2018-09-19] MEDS ORDERED: POTASSIUM CHLORIDE PWD 20 MEQ PACK PO ONE (22:00)
[2018-09-20] MEDS: PIPERACILLIN/TAZOBACTAM 4.5 GM in DEXTROSE 5% 100 ML IV SCH ×2 (02:33→13:08)
[2018-09-20 06:01] LABS: Estimated Average Glucose 163 mg/dl
[2018-09-20 06:08] LABS: Basophils # (auto) 0.04 K/uL (0-0.2); Basophils % (auto) 0.4 %; Eosinophils # (auto) 0.26 K/uL (0-0.5); Eosinophils % (auto) 2.5 %; Hematocrit (blood only) 32.1 % (37-47); Hemoglobin 9.2 g/dL (12.0-16.0); Immature Granulocytes # (auto) 0.07 K/uL (0.00-0.02); Immature Granulocytes % (auto) 0.7 %; Lymphocytes # (auto) 1.78 K/uL (1.2-3.4); Mean Corpuscular Hgb Conc 28.7 g/dL (32-36); Mean Corpuscular Volume 97.6 fL (80-100); Mean Platelet Volume 10.7 fL (7.4-10.4); Monocytes # (auto) 0.85 K/uL (0.11-0.59); Monocytes % (auto) 8.1 %; Neutrophils # (auto) 7.44 K/uL (1.4-6.5); Neutrophils % (auto) 71.3 %; Nucleated RBC # (auto) 0.11 K/uL (0-0); Nucleated RBC % (auto) 1.1 %; Platelet Count 315 K/uL (130-400); RDW Coefficient of Variation 17.9 % (11.5-14.5); Red Blood Count 3.29 M/uL (4.2-5.4); White Blood Count 10.44 K/uL (4.8-10.8)
[2018-09-20] MEDS: MIDODRINE HCL 10 MG TAB PO SCH ×3 (06:19→17:12)
[2018-09-20] MEDS: LEVOTHYROXINE SODIUM 50 MCG TABLET PO SCH (06:19)
[2018-09-20 06:43] LABS: BUN Creatinine Ratio 7.5 (10-20); Creatinine Clr Calc Pharmacy 16.5 ml/min; Est GFR (African American) 10.7; Est GFR (Non-African American) 9.2; Magnesium 2.2 mg/dl (1.8-2.4); Phosphorus 4.7 mg/dl (2.5-4.9); Potassium 4.1 mmol/L (3.5-5.1)
[2018-09-20] MEDS ORDERED: HEPARIN SOD (PORCINE) 1000 UNIT/ML 10 ML VIAL IV SCH (08:00)
[2018-09-20] MEDS: PANTOprazole 40 MG TAB PO SCH (08:15)
[2018-09-20] MEDS: ASPIRIN 81 MG ECTAB PO SCH (08:15)
[2018-09-20] MEDS: DOCUSATE SODIUM 100 MG CAP PO SCH (08:15)
[2018-09-20] MEDS: ATORVASTATIN 40 MG TAB PO SCH (08:15)
[2018-09-20] MEDS: NEPHROCAPS PO SCH (08:15)
[2018-09-20] MEDS: CLOPIDOGREL BISULFATE 75 MG TAB PO SCH (08:15)
[2018-09-20] MEDS: GABAPENTIN 100 MG CAP PO SCH ×2 (08:16→13:09)
[2018-09-20] MEDS: SEVELAMER HCL 800 MG TABLET PO SCH ×2 (08:16→13:08)
[2018-09-20] MEDS: FLUTICASONE PROPIONATE NA SPR 16 GM BTL SCH (08:17)
[2018-09-20] MEDS: NYSTATIN POWDER 15GM BTL EXT SCH (08:17)
[2018-09-20] MEDS: ISOSORBIDE MONO EXTENDED REL 60 MG TABCR PO SCH (08:17)
[2018-09-20] MEDS: METOPROLOL SUCC 25MG EXT REL TAB PO SCH (08:18)
--- NOTE | 2018-09-20 08:43 | Pharmacy Report ---
Pharmacy Abx Dose Short Note - Date of Service September 20, 2018 - Assessment & Plan Assessment 52 year old F receiving vancomycin and Zosyn for treatment of gangrenous right foot. Day #2 of antimicrobial therapy. Plan Vancomycin * Patient received 2 g IV dose on 09/19 at 0330. * Random vancomycin level obtained, due to chronic hemodialysis, this morning at 0526, which resulted at 26.6. * Patient is scheduled for dialysis today. * Due to vancomycin level of 26.6 will not re-dose after this dialysis session. * No urine output noted on 09/19. * Patient is scheduled for transmetatarsal amputation tomorrow afternoon. Consider pre-HD random vancomycin level on Tuesday if patient is to remain on vancomycin following surgery. Zosyn * Continue current dose of 4.5 g IV q12h (extended-infusion) Pharmacy will continue to follow and will adjust dose/frequency as necessary. Thank you.
--- NOTE | 2018-09-20 09:06 | Communication Note ---
Date of Service: September 20, 2018 Pt scheduled for RLE TMA tomorrow in OR by Dr Jones. Pt aware and agreeable.
[2018-09-20] MEDS: INSULIN ASPART 100 UNITS/ML 3 ML PEN SC SCH ×3 (09:26→19:09)
[2018-09-20] MEDS: HYDROmorphone INJ 0.5 MG/0.5 ML SYR IV PRN ×3 (09:55→17:41)
--- NOTE | 2018-09-20 10:04 | Nephrology Progress Note ---
Date of Service September 20, 2018 Assessment & Plan (1) ESRD (end stage renal disease) on dialysis: for routine HD today; her blood pressures are at baseline and chronically low; ordered albumin w/ HD; avf = access -daily bmp -changed to 2 K bath -cont midodrine certainly on dialysis days -antibiotics and surgery per primary svc and vascular -routine anemia meds w/ HD Subjective moving bowels; c/o sore bottom and c/o groin itching like yeast infeciton she states. no sob. states was told by nursing had clot in stool. for or in am Physical Exam 2 Vital Signs (Past 24 Hours): Last Vital Signs Temp 37.3 C 09/20/18 07:21 Pulse 70 09/20/18 07:21 Resp 16 09/20/18 07:21 BP 91/61 L 09/20/18 07:21 Pulse Ox 93 09/20/18 07:21 Constitutional: well developed and well nourished on ra Eyes: EOM intact bilaterally ENMT: Ears: no external ear abnormality Nose: no external nose abnormality Mouth: + dry oral mucous membranes Neck: no nuchal rigidity Respiratory: normal respiratory effort Auscultation: + diminished lung sounds Cardiovascular: RRR, no murmur, no edema Extremities: + AV fistula (+ t/b) Gastrointestinal (Abdomen): Inspection/Auscultation: normal bowel sounds Percussion/Palpation: abdomen soft; abdomen nontender Musculoskeletal: Extremities: strength 5/5 throughout Skin: no rashes, warm and dry Psychiatric: Orientation: oriented x 3 Eye Contact: + fair eye contact Affect: + flat affect Results & Data Laboratory Results Abnormal lab results 09/20/18 09/20/18 09/20/18 Range/Units 05:26 05:26 05:26 RBC 3.29 L (4.2-5.4) M/uL Hgb 9.2 L (12.0-16.0) g/dL Hct 32.1 L (37-47) % MCHC 28.7 L (32-36) g/dL RDW Std Deviation 61.0 H (36.4-46.3) fL RDW Coeff of Dru 17.9 H (11.5-14.5) % MPV 10.7 H (7.4-10.4) fL Immature Gran # (Auto) 0.07 H (0.00-0.02) K/uL Neut # (Auto) 7.44 H (1.4-6.5) K/uL Bates # (Auto) 0.85 H (0.11-0.59) K/uL Absolute Nucleated RBC 0.11 H (0-0) K/uL Sodium 134 L (136-145) mmol/L Chloride 95 L (98-107) mmol/L BUN 38 H D (7-18) mg/dl Creatinine 5.04 H* D (0.6-1.2) mg/dl BUN/Creatinine Ratio 7.5 L (10-20) Glucose 103 H (70-99) mg/dl POC Glucose (70-99) Hemoglobin A1c 7.3 H (4.5-5.6) % Iron 27 L (35-150) mcg/dl Transferrin % Sat 8 L (15-50) % 09/20/18 09/20/18 09/20/18 Range/Units 12:16 16:52 18:06 RBC (4.2-5.4) M/uL Hgb (12.0-16.0) g/dL Hct (37-47) % MCHC (32-36) g/dL RDW Std Deviation (36.4-46.3) fL RDW Coeff of Dru (11.5-14.5) % MPV (7.4-10.4) fL Immature Gran # (Auto) (0.00-0.02) K/uL Neut # (Auto) (1.4-6.5) K/uL Bates # (Auto) (0.11-0.59) K/uL Absolute Nucleated RBC (0-0) K/uL Sodium (136-145) mmol/L Chloride (98-107) mmol/L BUN (7-18) mg/dl Creatinine (0.6-1.2) mg/dl BUN/Creatinine Ratio (10-20) Glucose (70-99) mg/dl POC Glucose 127 H 156 H 124 H (70-99) Hemoglobin A1c (4.5-5.6) % Iron (35-150) mcg/dl Transferrin % Sat (15-50) %
--- NOTE | 2018-09-20 15:10 | Anesthesiology Consultation ---
Date of Service September 20, 2018 Assessment & Plan Chart Review Chart Review: Acceptable Risk for Surgery and Patient NOT seen in Pre Admission Testing Consults Requested none ASA ASA4 Proposed Anesthesia Anesthesia Type: General Regional Regional Laterality: Right Site: Ankle History Surgery Operation Date: 09/21/18 14:10 Proposed Procedures p Right Transmetatarsal Amputation - Andrea Jones MD Height/Weight Height: 5 ft 6 in Weight: 109 kg Allergies Allergy/AdvReac Type Severity Reaction Status Date / Time adhesive Allergy Mild RASH, SORES Verified 09/19/18 01:01 No Known Drug Allergies Allergy Mild . Verified 09/19/18 01:01 latex Allergy Unknown rash Verified 09/19/18 01:01 pollen extracts Allergy Unknown WATERY EYES Verified 09/19/18 01:01 Medications Home Medications Medication Instructions Recorded Confirmed Last Taken aspirin 81 mg PO DAILY 08/16/18 09/19/18 08/15/18 atorvastatin 40 mg PO DAILY 08/16/18 09/19/18 08/15/18 clopidogrel 75 mg PO DAILY 08/16/18 09/19/18 08/15/18 insulin glargine 25 units SUBCUT HS 08/16/18 09/19/18 Unknown nitroglycerin 0.4 mg SUBLINGUAL DIRECTED PRN 08/16/18 09/19/18 Unknown pantoprazole 40 mg PO DAILY 08/16/18 09/19/18 08/15/18 sertraline 25 mg PO DAILY 08/16/18 09/19/18 08/15/18 B complex with C#20-folic acid 1 cap PO DAILY 09/19/18 09/19/18 Unknown [Nephrocaps] acetaminophen 500 mg PO Q4H PRN 09/19/18 09/19/18 Unknown darbepoetin lillian in polysorbat 60 mcg SUBCUT DIRECTED 09/19/18 09/19/18 Unknown [Aranesp (in polysorbate)] docusate sodium 100 mg PO BID 09/19/18 09/19/18 Unknown fluticasone [Flonase Allergy 1 spray INTRANASAL DAILY 09/19/18 09/19/18 Unknown Relief] gabapentin 100 mg PO TID 09/19/18 09/19/18 Unknown isosorbide mononitrate 60 mg PO DAILY 09/19/18 09/19/18 Unknown levothyroxine 50 mcg PO DAILY 09/19/18 09/19/18 Unknown lorazepam [Ativan] 0.5 mg PO DAILY PRN 09/19/18 09/19/18 Unknown meclizine 25 mg PO TID PRN 09/19/18 09/19/18 Unknown metoprolol succinate 12.5 mg PO BID 09/19/18 09/19/18 Unknown midodrine 10 mg PO TID 09/19/18 09/19/18 Unknown nystatin 1 applic TOPICAL BID 09/19/18 09/19/18 Unknown sennosides-docusate sodium 2 tab PO DAILY PRN 09/19/18 09/19/18 Unknown [Senna-S] sevelamer carbonate [Renvela] 3,200 mg PO TID 09/19/18 09/19/18 Unknown Active Medications Generic Name Dose Route Start Last Admin Trade Name Freq PRN Reason Stop Dose Admin Aspirin 81 mg 09/19/18 09:00 09/20/18 08:15 Ecotrin Ectab PO 10/19/18 08:59 81 mg DAILY JIHAN Administration Atorvastatin Calcium 40 mg 09/19/18 09:00 09/20/18 08:15 Lipitor PO 10/19/18 08:59 40 mg DAILY JIHAN Administration Clopidogrel Bisulfate 75 mg 09/19/18 09:00 09/20/18 08:15 Plavix PO 10/19/18 08:59 75 mg DAILY JIHAN Administration Docusate Sodium 100 mg 09/19/18 09:00 09/20/18 08:15 Colace PO 10/19/18 08:59 100 mg BID JIHAN Administration Fluticasone Propionate 1 sprays 09/19/18 09:00 09/20/18 08:17 Flonase NA 10/19/18 08:59 1 sprays DAILY JIHAN Administration Gabapentin 100 mg 09/19/18 09:00 09/20/18 13:09 Neurontin PO 10/19/18 08:59 100 mg TID JIHAN Administration Hydromorphone HCl 0.5 mg 09/19/18 05:14 09/20/18 09:55 Dilaudid IV 10/03/18 05:13 0.5 mg Q3H PRN Administration Pain Piperacillin Sod/Tazobactam 120 mls @ 30 mls/hr 09/19/18 14:00 09/20/18 13:08 Sod 4.5 gm/ Dextrose IV 09/29/18 13:59 30 mls/hr Q12H JIHAN Administration Protocol Insulin Aspart 0 units 09/19/18 11:30 09/20/18 13:13 Novolog Flexpen SC 10/19/18 11:29 6 units ACHS JIHAN Administration Insulin Glargine 10 units 09/19/18 21:00 09/19/18 20:36 Lantus Solostar Pen SC 10/19/18 20:59 10 units HS JIHAN Administration Isosorbide Mononitrate 60 mg 09/19/18 09:00 09/20/18 08:17 Imdur Extended Rel PO 10/19/18 08:59 Not Given DAILY JIHAN Levothyroxine Sodium 50 mcg 09/19/18 06:30 09/20/18 06:19 Synthroid PO 10/19/18 06:29 50 mcg DAILYBB JIHAN Administration Metoprolol Succinate 12.5 mg 09/19/18 09:00 09/20/18 08:18 Toprol Xl PO 10/19/18 08:59 Not Given BID JIHAN Midodrine 10 mg 09/19/18 06:45 09/20/18 13:09 Proamatine PO 10/19/18 06:44 10 mg TID@0600,1200,1800 JIHAN Administration Miscellaneous 15 - 30 gm 09/19/18 12:46 09/19/18 12:30 Carbohydrates For Hypoglycemia PO 10/19/18 12:45 15 gm UD PRN Administration Hypoglycemia Treatment Nystatin 1 appln 09/19/18 09:00 09/20/18 08:17 Mycostatin EXT 10/19/18 08:59 1 appln BID JIHAN Administration Pantoprazole Sodium 40 mg 09/19/18 09:00 09/20/18 08:15 Protonix PO 10/19/18 08:59 40 mg DAILY JIHAN Administration Sertraline HCl 25 mg 09/19/18 21:00 09/19/18 20:26 Zoloft PO 10/19/18 20:59 25 mg HS JIHAN Administration Sevelamer HCl 3,200 mg 09/19/18 09:00 09/20/18 13:08 Renagel PO 10/19/18 08:59 3,200 mg TID JIHAN Administration Vitamin B Complex/Folic Acid 1 cap 09/19/18 09:00 09/20/18 08:15 Nephrocaps PO 10/19/18 08:59 1 cap DAILY JIHAN Administration Past Medical History Medical History Peripheral vascular disease (Chronic) s/p R SFA angioplasty with 2 stents placed at [facility] on 08/09/18 Arthritis (Chronic) CAD (coronary artery disease) (Chronic) "s/p PCI and BMS to left circumflex 03/2016" Ischemic cardiomyopathy (Chronic) "echo 05/2016 - EF 40-45%, grade I diastolic dysfunction" Carotid stenosis (Chronic) "left ICA" ESRD (end stage renal disease) on dialysis (Chronic) MWF DM type 2 (diabetes mellitus, type 2) (Chronic) GERD (gastroesophageal reflux disease) (Chronic) Allergic rhinitis (Chronic) Morbid obesity (Chronic) Dyslipidemia (Chronic) Tobacco use disorder (Resolved) HTN (hypertension) (Chronic) C. difficile colitis (Resolved) Anemia MRSA (methicillin resistant Staphylococcus aureus) colonization Nares Past Family History Family History Other Diabetes Heart disease Past Surgical History Surgical History Hemodialysis access, AV graft (Chronic) "[facility] Dr. Jones 08/25/12" History of left-sided carotid endarterectomy (Resolved) Past Anesthesia History No Hx of Anesthesia Complications and No Family Hx of Anesthesia Complications History of PONV No Motion Sickness Screening History of Motion Sickness: No Social History Smoking Status: Never smoker Hx Alcohol Use: No Alcohol type: wine alcohol intake frequency: holidays/special occasions only Hx Substance Use: No Exercise / Class Metabolic Activity III < 4 Walking/Shop/Light housework Physical Exam Vital Signs Last Vital Signs Temp 37.3 C 09/20/18 07:21 Pulse 70 09/20/18 07:21 Resp 16 09/20/18 07:21 BP 91/61 L 09/20/18 07:21 Pulse Ox 93 09/20/18 07:21 Testing Laboratory Results 09/20/18 05:26 09/20/18 05:26 Hemoglobin A1c 7.3 % (4.5-5.6) H 09/20/18 05:26 01/30/19 01/30/19 12:16 08:07 POC Glucose 127 H 99
--- NOTE | 2018-09-20 17:48 | Hospitalist Progress Note ---
Date of Service September 20, 2018 Assessment & Plan (1) Gangrene of toe of right foot: (2) Peripheral vascular disease: Hx Diabetes type 2 possible related to diabetic with peripheral vascular disease with gangrene Severe PVD, S/P right SFA angioplasty and 2 stents at the right Popl[place]al artery , angioplasty on 08/10/2018 at [facility] foot xray showed mild degenerative changes the level the first metatarsal phalangeal joint. Vascular surgery on board recommended a transmetatarsal amputation of the right foot. scheduled for RT TMA on 09/21 Continue IV Zosyn and IV vancomycin. 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 no evidence of infection recommend out pt follow up with [facility] Ortho Dr Vu may need excision of calcinosis (4) CAD (coronary artery disease): no complain of chest pain On aspirin /imdur/lopressor (5) Ischemic cardiomyopathy: Ischemic cardiomyopathy with chronic systolic heart failure no evidence of vol overload Echo showed mild concentric L ventricular hypertrophy left ventricular systolic function moderate to severely reduced with EF 30-35% Stable (6) Carotid stenosis: on aspirin /plavix (7) ESRD (end stage renal disease) on dialysis: On Tue/Tue/Tuesday schedule HD done today Nephrology on board Monitor BMP (8) DM type 2 (diabetes mellitus, type 2): Most recent Hba1c 7.3 insulin SSI (9) Hemodialysis access, AV graft: (10) Ingrowing nail, left great toe: pain and swelling on left great toe with + positive erythema evidence of cellulitis due to ingrown toe nail cont Abx Podiatry consulted DVT px received heparin sub today during HD CODE STATUS FULL CODE Subjective Pt was seen and examined Lying in bed with no distress Pt said that she is having pain in her foot with minimal touch Denies any chest pain, palpitation, dizziness and SOB Physical Exam 2 Vital Signs (Past 24 Hours): Last Vital Signs Temp 37.4 C 09/20/18 15:10 Pulse 61 09/20/18 15:10 Resp 17 09/20/18 15:10 BP 90/55 L 09/20/18 15:10 Pulse Ox 93 09/20/18 15:10 Physical Exam: General- No acute distress Head- atraumatic Eyes- PERRL, EOMI, ENT- oropharynx clear Neck- supple, no JVD Lungs- clear to auscultation Heart- regular rhythm; no murmur Abdomen- normal bowel sounds, soft, nontender Extremities- no calf tenderness, gangrenous rt foot -black /necrotic rt great toe 2nd and 3 rd toe Neuro- alert, oriented x 3; PERRL, EOMI Skin- warm & dry _ (1) Carotid stenosis Laterality: unspecified laterality Qualified Code(s): I65.29 - Occlusion and stenosis of unspecified carotid artery (2) DM type 2 (diabetes mellitus, type 2) Chronic kidney disease stage: Diabetes mellitus complication detail: with peripheral angiopathy with gangrene Diabetes mellitus complication status: with circulatory complication Diabetes mellitus bed bug exterminator insulin use: with fci use Diabetes mellitus macular edema: Diabetic retinopathy severity : Laterality: Proliferative retinopathy type: Qualified Code(s): E11.52 - Type 2 diabetes mellitus with diabetic peripheral angiopathy with gangrene; Z79.4 - senior living (current) use of insulin (3) CAD (coronary artery disease) Associated angina: without angina Coronary Disease-Associated Artery/Lesion type: [place] artery [place] vs. transplanted heart: [place] heart Qualified Code (s): I25.10 - Atherosclerotic heart disease of [place] coronary artery without angina pectoris
[2018-09-20] MEDS: HEPARIN SOD (PORCINE) 1000 UNIT/ML 10 ML VIAL IV SCH ×2 (20:45→21:45)
[2018-09-20] MEDS: ALBUMIN 25% 50 ML IV SCH (23:28)
[2018-09-21] MEDS: NYSTATIN POWDER 15GM BTL EXT SCH ×3 (00:20→22:10)
[2018-09-21] MEDS: SERTRALINE HCL 50 MG TABLET PO SCH ×2 (00:21→22:06)
[2018-09-21] MEDS: GABAPENTIN 100 MG CAP PO SCH ×4 (00:21→20:32)
[2018-09-21] MEDS: INSULIN GLARGINE SOLOSTAR 100 UNITS/ML 3 ML PEN SC SCH ×2 (00:23→21:07)
[2018-09-21] MEDS: HEPARIN SOD (PORCINE) 1000 UNIT/ML 10 ML VIAL IV SCH (00:25)
[2018-09-21] MEDS: INSULIN ASPART 100 UNITS/ML 3 ML PEN SC SCH ×5 (00:25→21:08)
[2018-09-21] MEDS: DOCUSATE SODIUM 100 MG CAP PO SCH ×3 (00:26→20:28)
[2018-09-21] MEDS: SEVELAMER HCL 800 MG TABLET PO SCH ×4 (00:26→20:29)
[2018-09-21] MEDS: METOPROLOL SUCC 25MG EXT REL TAB PO SCH ×3 (00:26→20:36)
[2018-09-21] MEDS: HYDROmorphone INJ 0.5 MG/0.5 ML SYR IV PRN ×4 (00:30→23:41)
[2018-09-21] MEDS: PIPERACILLIN/TAZOBACTAM 4.5 GM in DEXTROSE 5% 100 ML IV SCH ×2 (01:48→15:48)
[2018-09-21] MEDS ORDERED: Nursing to Pharmacy Communication ONE ×2 (03:01→11:18)
[2018-09-21] MEDS: MIDODRINE HCL 10 MG TAB PO SCH ×3 (05:37→17:54)
[2018-09-21] MEDS: LEVOTHYROXINE SODIUM 50 MCG TABLET PO SCH (05:37)
[2018-09-21 09:43] LABS: Hepatitis B Surface Antibody Immune
[2018-09-21 09:54] LABS: Hepatitis B Surface Antigen Neg (Neg)
[2018-09-21] MEDS: ASPIRIN 81 MG ECTAB PO SCH (10:05)
[2018-09-21] MEDS: ISOSORBIDE MONO EXTENDED REL 60 MG TABCR PO SCH (10:06)
[2018-09-21] MEDS: NEPHROCAPS PO SCH (10:06)
[2018-09-21] MEDS: PANTOprazole 40 MG TAB PO SCH (10:06)
[2018-09-21] MEDS: ATORVASTATIN 40 MG TAB PO SCH (10:06)
[2018-09-21] MEDS: CLOPIDOGREL BISULFATE 75 MG TAB PO SCH (10:06)
[2018-09-21] MEDS: FLUTICASONE PROPIONATE NA SPR 16 GM BTL SCH (10:10)
--- NOTE | 2018-09-21 11:35 | History & Physical Bridge Note ---
Date of Service September 21, 2018 History & Physical Bridge Note Patient for a left TMA. I have discussed the risks options and benefits of the procedure with the patient. The patient understands the risks options and benefits and agrees to the procedure. I have examined the patient, reviewed the History & Physical and in the interval since the performance of the History & Physical I have noted the following changes of clinical significance: no changes noted
[2018-09-21] MEDS ORDERED: MIDAZOLAM HCL 1 MG/ML 2ML VIAL ONE (12:31)
[2018-09-21] MEDS ORDERED: LIDOCAINE HCL 1% 20 ML VIAL ONE (12:52)
[2018-09-21] MEDS ORDERED: BUPIVACAINE/EPINEPHRINE 0.5% MPF 1:200,000 30 ML VIAL ONE (12:52)
[2018-09-21] MEDS ORDERED: LIDOCAINE HCL 2% (LOCAL) INJ 50 ML VIAL ONE (13:08)
[2018-09-21] MEDS ORDERED: PROPOFOL IV EMULSION 10 MG/ML 20 ML VIAL IV ONE (13:26)
[2018-09-21] MEDS ORDERED: ONDANSETRON INJ 2 MG/ML 2 ML VIAL ONE (13:26)
[2018-09-21] MEDS ORDERED: LIDOCAINE HCL 2% 2 ML VIAL/AMP(20MG/ML) INFIL ONE (13:26)
--- NOTE | 2018-09-21 14:03 | Post Operative Brief Note ---
Immediate Post Op Note v1 Date of Surgery September 21, 2018 Pre & Post Diagnosis Operation Date: 09/21/18 14:10 Pre-Op Diagnosis: gangrene of toes, right foot Post-Op Diagnosis: gangrene of toes, right foot Procedure Operation Date: 09/21/18 14:10 Actual Procedures p Right Transmetatarsal Amputation(Right) - Andrea Jones MD Surgeon Andrea Jones MD [employer] Manager Vandana Christine MD Estimated Blood Loss 30 Findings Consistent with Post-Op Diagnosis Anesthesia Type General Regional Complications none Disposition Accompanied Patient To Recovery: No Disposition: Recovery Room
[2018-09-21] MEDS ORDERED: ONDANSETRON INJ 2 MG/ML 2 ML VIAL IV PRN (14:18)
[2018-09-21] MEDS ORDERED: ATROPINE SULFATE 0.1 MG/ML 10ML SYR IV PRN (14:18)
[2018-09-21] MEDS ORDERED: FLUMAZENIL 0.1 MG/1 ML 10 ML VIAL IV PRN (14:18)
[2018-09-21] MEDS ORDERED: ePHEDrine sulfate 50 MG/ML AMP IV PRN (14:18)
[2018-09-21] MEDS ORDERED: LABETALOL HCL IV 5 MG/ML 20ML IV PRN (14:18)
[2018-09-21] MEDS ORDERED: HYDROmorphone INJ 1 MG/ML SYRINGE IV PRN (14:18)
[2018-09-21] MEDS ORDERED: PROMETHAZINE HCL 12.5 MG in SODIUM CHLORIDE 0.9% 50 ML IV PRN (14:18)
[2018-09-21] MEDS ORDERED: NALOXONE HCL 0.4 MG/1 ML VIAL/CARP IV PRN (14:18)
--- NOTE | 2018-09-21 14:23 | Operative Report ---
Post Operative Report Pre & Post Diagnosis Operation Date: 09/21/18 14:10 Pre-Op Diagnosis: gangrene of toes, right foot Post-Op Diagnosis: gangrene of toes, right foot Procedure Operation Date: 09/21/18 14:10 Actual Procedures p Right Transmetatarsal Amputation(Right) - Andrea Jones MD Surgeon Andrea Jones MD Stage Hand Vandana Christine MD Estimated Blood Loss 30 Findings Consistent with Post-Op Diagnosis Specimens Right forefoot Anesthesia Type General Regional Complications none Disposition Accompanied Patient To Recovery: No Disposition: Recovery Room Indications 62-year-old female with a past history of significant right lower extremity peripheral vascular disease requiring multiple interventions, admitted with progressive gangrenous changes of the right first, third, fourth, and fifth toes. She was admitted to the medicine service and given IV antibiotics, with vascular surgery consulted for further evaluation. The decision was made to perform a right foot transmetatarsal amputation, to which the patient was in agreement. Description of Procedure Patient was brought to the operating room and identified as Tamy Gilbert. She was transferred to the operating table in the supine position. A regional block was performed at the ankle by our anesthesia colleagues followed by adminitration of general anesthesia. Her right foot was identified with the previously marked area and prepped and draped in the usual sterile fashion with Betadine. A surgical timeout was performed. An incision was made in her distal foot just below the digits circumferentially. Electrocautery was used to dissect down to the bone circumferentially, being sure to leave a plantar sided flap for later closure.An oscillating saw was used to transect the first through fourth metatarsals just proximal to the metatarsal heads. The remaining soft tissue and tendinous attachments on the plantar side were then divided with electrocautery. A Ronguer was used to debride the metatarsal head of the fifth digit. Hemostasis was then achieved with electrocautery. 7 deep Vicryl sutures were then used to reapproximate the plantar flap up to the dorsal side of the incision. [place] were placed to close the skin. The wound was dressed withXeroform and gauze and wrapped with Kerlix and an [place] wrap. Patient tolerated the procedure well. Final counts were correct at the end of the case. Patient was transported to PACU in stable condition. I attest to the content of the Intraoperative Record and any orders documented therein. Any exceptions are noted below.
--- NOTE | 2018-09-21 14:56 | Anesthesiology Progress Note ---
Date of Service September 21, 2018 Anesthesia Post Procedure Vital Signs Vital Signs: Temp Pulse Pulse Resp BP BP Pulse Ox 09/21/18 14:41 61 19 87/53 L 100 09/21/18 14:40 61 22 100 09/21/18 14:36 61 19 89/49 L 100 09/21/18 14:35 61 20 100 09/21/18 14:30 63 22 94/55 L 100 09/21/18 14:27 68 26 H 86/51 L 100 09/21/18 14:26 36.1 C L 75 20 86/51 L 99 09/21/18 14:25 71 22 91 09/21/18 14:24 73 26 H 98 09/21/18 12:57 36.8 C 66 20 107/58 L 100 09/21/18 11:35 66 103/66 09/21/18 07:35 36.5 C 66 16 97/63 L 91 09/21/18 00:16 37.0 C 75 16 110/77 95 09/21/18 00:05 36.6 C 72 110/61 09/20/18 23:30 71 108/60 09/20/18 23:15 71 108/66 09/20/18 23:00 71 117/68 09/20/18 22:45 69 107/57 L 09/20/18 22:30 67 112/66 09/20/18 22:15 69 106/62 09/20/18 22:00 70 107/66 09/20/18 21:45 66 102/54 L 09/20/18 21:30 66 109/55 L 09/20/18 21:15 67 100/55 L 09/20/18 21:00 65 106/53 L 09/20/18 20:45 66 102/57 L 09/20/18 20:30 64 92/53 L 09/20/18 20:15 65 98/53 L 09/20/18 20:00 66 97/53 L 09/20/18 19:47 70 107/54 L 09/20/18 19:39 36.5 C 70 09/20/18 15:10 37.4 C 61 17 90/55 L 93 Pain Intensity Right Foot: Pain Intensity: 9 Left Toe: Pain Intensity: 0 Notes Mental Status: alert / awake / arousable Patient Amnestic to Procedure: Yes Nausea / Vomiting: adequately controlled Pain: adequately controlled Airway Patency, RR, SpO2: stable & adequate BP & HR: stable & adequate Hydration State: stable & adequate Anesthetic Complications: no major complications apparent
--- NOTE | 2018-09-21 18:29 | Hospitalist Progress Note ---
Date of Service September 21, 2018 Assessment & Plan (1) Gangrene of toe of right foot: (2) Peripheral vascular disease: Hx Diabetes type 2 possible related to diabetic with peripheral vascular disease with gangrene Severe PVD, S/P right SFA angioplasty and 2 stents at the right Popliteal artery , angioplasty on 08/10/2018 at [place] foot xray showed mild degenerative changes the level the first metatarsal phalangeal joint. Vascular surgery on board recommended a transmetatarsal amputation of the right foot. scheduled for RT TMA on 09/21 Continue IV Zosyn and IV vancomycin. 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 no evidence of infection recommend out pt follow up with [facility] hand Ortho Dr Vu may need excision of calcinosis (4) CAD (coronary artery disease): no complain of chest pain On aspirin /imdur/lopressor (5) Ischemic cardiomyopathy: Ischemic cardiomyopathy with chronic systolic heart failure no evidence of vol overload Echo showed mild concentric L ventricular hypertrophy left ventricular systolic function moderate to severely reduced with EF 30-35% Stable (6) Carotid stenosis: on aspirin /plavix (7) ESRD (end stage renal disease) on dialysis: On Tue/Tue/Tuesday schedule HD done today Nephrology on board Monitor BMP (8) DM type 2 (diabetes mellitus, type 2): Most recent Hba1c 7.3 insulin SSI (9) Hemodialysis access, AV graft: (10) Ingrowing nail, left great toe: pain and swelling on left great toe with + positive erythema evidence of cellulitis due to ingrown toe nail cont Abx Podiatry consulted DVT px received heparin sub today during HD CODE STATUS FULL CODE Subjective Pt was seen and examined Lying in bed with no distress Waiting to go to OR for amputation later today Pt said that she is hungry denies any chest pain, palpitation and SOB Physical Exam 2 Vital Signs (Past 24 Hours): Last Vital Signs Temp 36.9 C 09/21/18 15:40 Pulse 64 09/21/18 17:31 Resp 17 09/21/18 17:31 BP 97/65 L 09/21/18 17:31 Pulse Ox 97 09/21/18 17:31 Physical Exam: General- No acute distress Head- atraumatic Eyes- PERRL, EOMI, ENT- oropharynx clear Neck- supple, no JVD Lungs- clear to auscultation Heart- regular rhythm; no murmur Abdomen- normal bowel sounds, soft, nontender Extremities- no calf tenderness, gangrenous rt foot -black /necrotic rt great toe 2nd and 3 rd toe Neuro- alert, oriented x 3; PERRL, EOMI Skin- warm & dry _ (1) Carotid stenosis Laterality: unspecified laterality Qualified Code(s): I65.29 - Occlusion and stenosis of unspecified carotid artery (2) DM type 2 (diabetes mellitus, type 2) Chronic kidney disease stage: Diabetes mellitus complication detail: with peripheral angiopathy with gangrene Diabetes mellitus complication status: with circulatory complication Diabetes mellitus salvage determiner insulin use: with jail use Diabetes mellitus macular edema: Diabetic retinopathy severity : Laterality: Proliferative retinopathy type: Qualified Code(s): E11.52 - Type 2 diabetes mellitus with diabetic peripheral angiopathy with gangrene; Z79.4 - nursing home (current) use of insulin (3) CAD (coronary artery disease) Associated angina: without angina Coronary Disease-Associated Artery/Lesion type: [place] artery [place] vs. transplanted heart: [place] heart Qualified Code (s): I25.10 - Atherosclerotic heart disease of [place] coronary artery without angina pectoris
[2018-09-21] MEDS: LACTOBACILLUS ACIDOPHILUS (FLORANEX) TAB PO SCH (20:27)
[2018-09-22] MEDS: PIPERACILLIN/TAZOBACTAM 4.5 GM in DEXTROSE 5% 100 ML IV SCH ×2 (02:22→13:40)
[2018-09-22] MEDS: HYDROmorphone INJ 0.5 MG/0.5 ML SYR IV PRN ×4 (05:39→22:27)
[2018-09-22] MEDS: MIDODRINE HCL 10 MG TAB PO SCH ×3 (05:50→19:55)
[2018-09-22] MEDS: LEVOTHYROXINE SODIUM 50 MCG TABLET PO SCH (05:52)
[2018-09-22 06:51] LABS: Hematocrit (blood only) 30.4 % (37-47); Hemoglobin 8.8 g/dL (12.0-16.0); Mean Corpuscular Hgb Conc 28.9 g/dL (32-36); Mean Corpuscular Volume 95.9 fL (80-100); Mean Platelet Volume 10.4 fL (7.4-10.4); Nucleated RBC # (auto) 0.02 K/uL (0-0); Nucleated RBC % (auto) 0.3 %; Platelet Count 286 K/uL (130-400); RDW Coefficient of Variation 18.3 % (11.5-14.5); RDW Standard Deviation 62.3 fL (36.4-46.3); Red Blood Count 3.17 M/uL (4.2-5.4); White Blood Count 8.22 K/uL (4.8-10.8)
[2018-09-22 07:04] LABS: BUN Creatinine Ratio 6.6 (10-20); Calcium 9.3 mg/dl (8.5-10.1); Creatinine Clr Calc Pharmacy 17.8 ml/min; Est GFR (African American) 11.9; Est GFR (Non-African American) 10.2; Potassium 4.1 mmol/L (3.5-5.1)
[2018-09-22] MEDS ORDERED: EPOETIN ALFA IV ONE (08:09)
--- NOTE | 2018-09-22 08:18 | Anesthesiology Progress Note ---
Date of Service September 22, 2018 Anesthesia Post Procedure Vital Signs Vital Signs: Temp Pulse Pulse Pulse Pulse Resp BP 09/22/18 07:55 36.9 C 68 18 09/22/18 07:35 36.3 C L 74 18 09/22/18 02:38 36.2 C L 64 14 09/21/18 23:10 37.1 C 66 14 09/21/18 20:35 63 09/21/18 19:48 37.0 C 64 17 09/21/18 17:31 64 17 09/21/18 16:36 62 17 09/21/18 15:58 63 17 09/21/18 15:40 36.9 C 62 18 09/21/18 15:25 57 L 15 89/51 L 09/21/18 15:21 58 L 17 86/50 L 09/21/18 15:20 57 L 15 09/21/18 15:15 58 L 17 88/51 L 09/21/18 15:11 58 L 15 87/50 L 09/21/18 15:10 58 L 15 09/21/18 15:06 58 L 17 87/52 L 09/21/18 15:05 59 L 18 09/21/18 15:01 60 21 89/53 L 09/21/18 15:00 60 19 09/21/18 14:55 37.5 C 61 21 93/57 L 09/21/18 14:51 61 17 88/52 L 09/21/18 14:50 60 17 09/21/18 14:45 61 18 92/53 L 09/21/18 14:41 61 19 87/53 L 09/21/18 14:40 61 22 09/21/18 14:36 61 19 89/49 L 09/21/18 14:35 61 20 09/21/18 14:30 63 22 94/55 L 09/21/18 14:27 68 26 H 86/51 L 09/21/18 14:26 36.1 C L 75 20 09/21/18 14:25 71 22 09/21/18 14:24 73 26 H 09/21/18 12:57 36.8 C 66 20 09/21/18 11:35 66 BP Pulse Ox 09/22/18 07:55 109/70 92 09/22/18 07:35 145/93 H 94 09/22/18 02:38 107/70 95 09/21/18 23:10 113/74 93 09/21/18 20:35 96/61 L 09/21/18 19:48 96/63 L 94 09/21/18 17:31 97/65 L 97 09/21/18 16:36 97/64 L 95 09/21/18 15:58 103/69 93 09/21/18 15:40 94/63 L 92 09/21/18 15:25 100 09/21/18 15:21 100 09/21/18 15:20 100 09/21/18 15:15 100 09/21/18 15:11 100 09/21/18 15:10 100 09/21/18 15:06 100 09/21/18 15:05 100 09/21/18 15:01 100 09/21/18 15:00 100 09/21/18 14:55 100 09/21/18 14:51 100 09/21/18 14:50 100 09/21/18 14:45 100 09/21/18 14:41 100 09/21/18 14:40 100 09/21/18 14:36 100 09/21/18 14:35 100 09/21/18 14:30 100 09/21/18 14:27 100 09/21/18 14:26 86/51 L 99 09/21/18 14:25 91 09/21/18 14:24 98 09/21/18 12:57 107/58 L 100 09/21/18 11:35 103/66 Pain Intensity Right Foot: Pain Intensity: 9 Left Toe: Pain Intensity: 8 Notes Mental Status: alert / awake / arousable Patient Amnestic to Procedure: Yes Nausea / Vomiting: adequately controlled Pain: adequately controlled Airway Patency, RR, SpO2: stable & adequate BP & HR: stable & adequate Hydration State: stable & adequate Anesthetic Complications: no major complications apparent
[2018-09-22] MEDS: INSULIN ASPART 100 UNITS/ML 3 ML PEN SC SCH ×4 (09:01→21:56)
[2018-09-22] MEDS: FLUTICASONE PROPIONATE NA SPR 16 GM BTL SCH (09:07)
[2018-09-22] MEDS: NYSTATIN POWDER 15GM BTL EXT SCH ×2 (09:07→21:42)
[2018-09-22] MEDS: ATORVASTATIN 40 MG TAB PO SCH (09:09)
[2018-09-22] MEDS: NEPHROCAPS PO SCH (09:09)
[2018-09-22] MEDS: ISOSORBIDE MONO EXTENDED REL 60 MG TABCR PO SCH (09:09)
[2018-09-22] MEDS: DOCUSATE SODIUM 100 MG CAP PO SCH ×2 (09:09→21:41)
[2018-09-22] MEDS: CLOPIDOGREL BISULFATE 75 MG TAB PO SCH (09:09)
[2018-09-22] MEDS: METOPROLOL SUCC 25MG EXT REL TAB PO SCH ×2 (09:10→21:48)
[2018-09-22] MEDS: SEVELAMER HCL 800 MG TABLET PO SCH ×4 (09:11→21:53)
[2018-09-22] MEDS: PANTOprazole 40 MG TAB PO SCH (09:11)
[2018-09-22] MEDS: ASPIRIN 81 MG ECTAB PO SCH (09:13)
[2018-09-22] MEDS: LACTOBACILLUS ACIDOPHILUS (FLORANEX) TAB PO SCH ×2 (09:13→21:41)
[2018-09-22] MEDS: GABAPENTIN 100 MG CAP PO SCH ×3 (09:15→21:40)
--- NOTE | 2018-09-22 10:00 | Pharmacy Report ---
Pharmacy Abx Dose Progress Nt - Date of Service September 22, 2018 - Pharmacy Dosing Scope The patient is currently receiving the following antimicrobial agents per Pharmacy consult: VANCOMYCIN - dosing based on random levels after HD - Objective Vital Signs (Past 12hrs): Vital Signs Temp Pulse Pulse Resp BP Pulse Ox 09/22/18 07:55 36.9 C 68 18 109/70 92 09/22/18 07:35 36.3 C L 74 18 145/93 H 94 09/22/18 02:38 36.2 C L 64 14 107/70 95 09/21/18 23:10 37.1 C 66 14 113/74 93 Lab Results (24hrs): Laboratory Tests (24 Hours) 09/22/18 09/22/18 09/22/18 06:05 06:05 06:05 WBC 8.22 Creatinine 4.62 H* Est Cr Clr Drug Dosing 17.8 Random Vancomycin 17.7 - Risk Factors for Resistance * Hospitalization for 48 hours or more within the past 90 days * Diabetes * Chronic dialysis within the past 30 days * History of infection with a multidrug-resistant organism: MRSA Toe Ulcer 2016 * Antimicrobial use within the last 90 days Keflex - Assessment & Plan Assessment 52 year old F receiving Vancomycin + Zosyn for treatment of Right toe gangrene ; s/p transmetatarsal amputation May consider d/c IV antibiotics once source control is achieved Day # 4 of antimicrobial therapy Plan Vancomycin IV * Post HD random level of 17.7 mcg/mL is therapeutic * Patient is scheduled for HD today. Pt will need a dose of vancomycin after HD * Will give Vancomycin 1,000mg IV x 1 dose today after HD * Next vancomycin level tuesday morning (09/25/18) prior to dialysis * Goal trough/random pre-HD levels for bone/joint : 15 to 20 mcg/mL Piperacillin/tazobactam * Continue 4.5 g IV extended infusion every 12 hours for CrCl 20 mL/min or less. Pharmacy will continue to follow and will adjust dose/frequency as necessary. Thank you.
[2018-09-22] MEDS ORDERED: SODIUM CHLORIDE 0.9% 1000ML 1,000 ML IV PRN (10:09)
[2018-09-22] MEDS: ALBUMIN 25% 50 ML IV SCH ×2 (15:00→16:30)
[2018-09-22] MEDS ORDERED: VANCOMYCIN HCL 1,000 MG in SODIUM CHLORIDE 0.9% 250 ML IV SCH (18:00)
--- NOTE | 2018-09-22 18:27 | Hospitalist Progress Note ---
Date of Service September 22, 2018 Assessment & Plan (1) Gangrene of toe of right foot: (2) Peripheral vascular disease: Hx Diabetes type 2 possible related to diabetic with peripheral vascular disease with gangrene Severe PVD, S/P right SFA angioplasty and 2 stents at the right Popliteal artery , angioplasty on 08/10/2018 at [place] foot xray showed mild degenerative changes the level the first metatarsal phalangeal joint. Vascular surgery on board recommended a transmetatarsal amputation of the right foot. scheduled for RT TMA on 09/21 Continue IV Zosyn and IV vancomycin. 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 no evidence of infection recommend out pt follow up with [facility] Ortho Dr Vu (4) CAD (coronary artery disease): no complain of chest pain On aspirin /imdur/lopressor (5) Ischemic cardiomyopathy: Ischemic cardiomyopathy with chronic systolic heart failure no evidence of vol overload Echo showed mild concentric L ventricular hypertrophy left ventricular systolic function moderate to severely reduced with EF 30-35% Stable (6) Carotid stenosis: on aspirin /plavix (7) ESRD (end stage renal disease) on dialysis: On Tue/Tue/Tuesday schedule HD done today Nephrology on board Monitor BMP (8) DM type 2 (diabetes mellitus, type 2): Most recent Hba1c 7.3 insulin SSI (9) Hemodialysis access, AV graft: (10) Ingrowing nail, left great toe: pain and swelling on left great toe with + positive erythema evidence of cellulitis due to ingrown toe nail Will consider to d/c IV vanco Continue IV Zosyn for now Podiatry consulted DVT px received heparin sub today during HD CODE STATUS FULL CODE Subjective Pt was seen and examined Lying in bed with no distress Pt said that she is having pain She said that the pain medication helps Denies any chest pain, palpitation and sob Physical Exam 2 Vital Signs (Past 24 Hours): Last Vital Signs Temp 36.7 C 09/22/18 14:42 Pulse 71 09/22/18 18:00 Resp 17 09/22/18 11:36 BP 113/59 L 09/22/18 18:00 Pulse Ox 92 09/22/18 11:36 Physical Exam: General- No acute distress Head- atraumatic Eyes- PERRL, EOMI, ENT- oropharynx clear Neck- supple, no JVD Lungs- clear to auscultation Heart- regular rhythm; no murmur Abdomen- normal bowel sounds, soft, nontender Extremities- no calf tenderness, gangrenous rt foot -black /necrotic rt great toe 2nd and 3 rd toe Neuro- alert, oriented x 3; PERRL, EOMI Skin- warm & dry _ (1) Carotid stenosis Laterality: unspecified laterality Qualified Code(s): I65.29 - Occlusion and stenosis of unspecified carotid artery (2) DM type 2 (diabetes mellitus, type 2) Chronic kidney disease stage: Diabetes mellitus complication detail: with peripheral angiopathy with gangrene Diabetes mellitus complication status: with circulatory complication Diabetes mellitus manager long term care insulin use: with manager long term care use Diabetes mellitus macular edema: Diabetic retinopathy severity : Laterality: Proliferative retinopathy type: Qualified Code(s): E11.52 - Type 2 diabetes mellitus with diabetic peripheral angiopathy with gangrene; Z79.4 - emt intermediate (current) use of insulin (3) CAD (coronary artery disease) Associated angina: without angina Coronary Disease-Associated Artery/Lesion type: [place] artery [place] vs. transplanted heart: [place] heart Qualified Code (s): I25.10 - Atherosclerotic heart disease of [place] coronary artery without angina pectoris
--- NOTE | 2018-09-22 19:40 | Dialysis Progress Note ---
Date of Service September 22, 2018 Assessment & Plan (1) ESRD (end stage renal disease) on dialysis: for routine HD today; her blood pressures are at baseline and chronically low; ordered albumin w/ HD; avf = access; goal uf up to 2L -daily bmp -changed to 2 K bath -cont midodrine certainly on dialysis days -antibiotics and surgery per primary svc and vascular -routine anemia meds w/ HD Subjective seen on hd at 1830. pt groggy - had just had IV pain meds for 10/10 foot pain. Physical Exam 2 Vital Signs (Past 24 Hours): Last Vital Signs Temp 36.8 C 09/22/18 19:26 Pulse 78 09/22/18 19:26 Resp 16 09/22/18 19:26 BP 107/67 09/22/18 19:26 Pulse Ox 96 09/22/18 19:26 Constitutional: well developed, well nourished and + lethargic on ra Eyes: EOM intact bilaterally ENMT: Ears: no external ear abnormality Nose: no external nose abnormality Mouth: + dry oral mucous membranes Neck: no nuchal rigidity Respiratory: normal respiratory effort Auscultation: + diminished lung sounds Cardiovascular: RRR, no murmur, no edema Extremities: + AV fistula (+ t/b) Gastrointestinal (Abdomen): Inspection/Auscultation: normal bowel sounds Percussion/Palpation: abdomen soft; abdomen nontender Musculoskeletal: Extremities: strength 5/5 throughout Skin: no rashes, warm and dry Neurologic: lethargic but arouseable Psychiatric: Orientation: oriented x 3 Eye Contact: + fair eye contact Affect: + depressed affect and + flat affect Results & Data Laboratory Results Abnormal lab results 09/21/18 09/22/18 09/22/18 Range/Units 20:42 06:05 06:05 RBC 3.17 L (4.2-5.4) M/uL Hgb 8.8 L (12.0-16.0) g/dL Hct 30.4 L (37-47) % MCHC 28.9 L (32-36) g/dL RDW Std Deviation 62.3 H (36.4-46.3) fL RDW Coeff of Dru 18.3 H (11.5-14.5) % Absolute Nucleated RBC 0.02 H (0-0) K/uL Sodium 132 L (136-145) mmol/L Chloride 96 L (98-107) mmol/L BUN 30 H (7-18) mg/dl Creatinine 4.62 H* (0.6-1.2) mg/dl BUN/Creatinine Ratio 6.6 L (10-20) Glucose 130 H (70-99) mg/dl POC Glucose 160 H (70-99) 09/22/18 09/22/18 09/22/18 Range/Units 08:07 11:58 19:29 RBC (4.2-5.4) M/uL Hgb (12.0-16.0) g/dL Hct (37-47) % MCHC (32-36) g/dL RDW Std Deviation (36.4-46.3) fL RDW Coeff of Dru (11.5-14.5) % Absolute Nucleated RBC (0-0) K/uL Sodium (136-145) mmol/L Chloride (98-107) mmol/L BUN (7-18) mg/dl Creatinine (0.6-1.2) mg/dl BUN/Creatinine Ratio (10-20) Glucose (70-99) mg/dl POC Glucose 168 H 243 H 137 H (70-99)
[2018-09-22] MEDS: SERTRALINE HCL 50 MG TABLET PO SCH (21:44)
[2018-09-22] MEDS: INSULIN GLARGINE SOLOSTAR 100 UNITS/ML 3 ML PEN SC SCH (21:56)
[2018-09-23] MEDS: PIPERACILLIN/TAZOBACTAM 4.5 GM in DEXTROSE 5% 100 ML IV SCH ×2 (01:30→13:23)
[2018-09-23] MEDS: HYDROmorphone INJ 0.5 MG/0.5 ML SYR IV PRN (05:15)
[2018-09-23] MEDS: MIDODRINE HCL 10 MG TAB PO SCH ×3 (05:18→17:55)
[2018-09-23] MEDS: LEVOTHYROXINE SODIUM 50 MCG TABLET PO SCH (05:42)
[2018-09-23] MEDS ORDERED: HYDROmorphone INJ 0.5 MG/0.5 ML SYR IV PRN (08:35)
--- NOTE | 2018-09-23 09:10 | Surgery Progress Note ---
Date of Service September 23, 2018 Assessment & Plan (1) Gangrene of toe of right foot: At this point we order dressing changes to the foot. She may be up and around with partial weightbearing. I also ordered a surgical boot to be worn when she is out of bed. At this point she can be discharged per her primary service when they see fit. Subjective She has no complaints today. She denied any dinner last night because she was nauseous after dialysis. She did eat today. Physical Exam 2 Vital Signs (Past 24 Hours): Last Vital Signs Temp 36.6 C 09/23/18 07:10 Pulse 59 L 09/23/18 07:10 Resp 18 09/23/18 07:10 BP 123/79 09/23/18 07:10 Pulse Ox 95 09/23/18 07:10 Her amputation site is dry and clean. There is no evidence of any ischemia along the incision line.
[2018-09-23] MEDS: OXYCODONE HCL IR 5 MG TAB (IMMEDIATE RELEASE) PO PRN (09:34)
[2018-09-23] MEDS: DOCUSATE SODIUM 100 MG CAP PO SCH ×2 (09:35→21:43)
[2018-09-23] MEDS: SEVELAMER HCL 800 MG TABLET PO SCH ×3 (09:37→17:55)
[2018-09-23] MEDS: GABAPENTIN 100 MG CAP PO SCH ×3 (09:37→21:43)
[2018-09-23] MEDS: METOPROLOL SUCC 25MG EXT REL TAB PO SCH ×2 (09:39→21:43)
[2018-09-23] MEDS: PANTOprazole 40 MG TAB PO SCH (09:39)
[2018-09-23] MEDS: ISOSORBIDE MONO EXTENDED REL 60 MG TABCR PO SCH (09:40)
[2018-09-23] MEDS: ATORVASTATIN 40 MG TAB PO SCH (09:41)
[2018-09-23] MEDS: NEPHROCAPS PO SCH (09:41)
[2018-09-23] MEDS: CLOPIDOGREL BISULFATE 75 MG TAB PO SCH (09:41)
[2018-09-23] MEDS: ASPIRIN 81 MG ECTAB PO SCH (09:42)
[2018-09-23] MEDS: LACTOBACILLUS ACIDOPHILUS (FLORANEX) TAB PO SCH ×2 (09:42→21:43)
[2018-09-23] MEDS: FLUTICASONE PROPIONATE NA SPR 16 GM BTL SCH (09:43)
[2018-09-23] MEDS: NYSTATIN POWDER 15GM BTL EXT SCH ×2 (09:44→21:55)
[2018-09-23] MEDS: INSULIN ASPART 100 UNITS/ML 3 ML PEN SC SCH ×4 (09:45→21:53)
--- NOTE | 2018-09-23 15:29 | Hospitalist Progress Note ---
Date of Service September 23, 2018 Assessment & Plan (1) Gangrene of toe of right foot: (2) Peripheral vascular disease: Hx Diabetes type 2 possible related to diabetic with peripheral vascular disease with gangrene Severe PVD, S/P right SFA angioplasty and 2 stents at the right Popliteal artery , angioplasty on 08/10/2018 at [place] foot xray showed mild degenerative changes the level the first metatarsal phalangeal joint. Vascular surgery on board recommended a transmetatarsal amputation of the right foot. scheduled for RT TMA on 09/21 Continue IV Zosyn and IV vancomycin. 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 no evidence of infection recommend out pt follow up with [facility] hand Ortho Dr Vu (4) CAD (coronary artery disease): no complain of chest pain On aspirin /imdur/lopressor (5) Ischemic cardiomyopathy: Ischemic cardiomyopathy with chronic systolic heart failure no evidence of vol overload Echo showed mild concentric L ventricular hypertrophy left ventricular systolic function moderate to severely reduced with EF 30-35% Stable (6) Carotid stenosis: on aspirin /plavix (7) ESRD (end stage renal disease) on dialysis: On Tue/Tue/Tuesday schedule Last HD on yesterday Nephrology on board Monitor BMP (8) DM type 2 (diabetes mellitus, type 2): Most recent Hba1c 7.3 insulin SSI (9) Hemodialysis access, AV graft: (10) Ingrowing nail, left great toe: pain and swelling on left great toe with + positive erythema evidence of cellulitis due to ingrown toe nail Will consider to d/c IV vanco Continue IV Zosyn for now Podiatry consulted DVT px received heparin sub today during HD CODE STATUS FULL CODE Disposition Waiting for placement to rehab Subjective Pt was seen and examined Lying in bed with no distress Pt said that her pain is better controlled She is more awake today Denies any chest pain, palpitation and SOB Physical Exam 2 Vital Signs (Past 24 Hours): Last Vital Signs Temp 36.6 C 09/23/18 15:13 Pulse 64 09/23/18 15:13 Resp 20 09/23/18 15:13 BP 104/65 09/23/18 15:13 Pulse Ox 90 09/23/18 15:13 Physical Exam: General- No acute distress Head- atraumatic Eyes- PERRL, EOMI, ENT- oropharynx clear Neck- supple, no JVD Lungs- clear to auscultation Heart- regular rhythm; no murmur Abdomen- normal bowel sounds, soft, nontender Extremities- no calf tenderness, Right foot amputation with dressing on Neuro- alert, oriented x 3; PERRL, EOMI Skin- warm & dry _ (1) Carotid stenosis Laterality: unspecified laterality Qualified Code(s): I65.29 - Occlusion and stenosis of unspecified carotid artery (2) DM type 2 (diabetes mellitus, type 2) Chronic kidney disease stage: Diabetes mellitus complication detail: with peripheral angiopathy with gangrene Diabetes mellitus complication status: with circulatory complication Diabetes mellitus counter manager insulin use: with counter manager use Diabetes mellitus macular edema: Diabetic retinopathy severity : Laterality: Proliferative retinopathy type: Qualified Code(s): E11.52 - Type 2 diabetes mellitus with diabetic peripheral angiopathy with gangrene; Z79.4 - half-way (current) use of insulin (3) CAD (coronary artery disease) Associated angina: without angina Coronary Disease-Associated Artery/Lesion type: [place] artery [place] vs. transplanted heart: [place] heart Qualified Code (s): I25.10 - Atherosclerotic heart disease of [place] coronary artery without angina pectoris
[2018-09-23] MEDS: SERTRALINE HCL 50 MG TABLET PO SCH (21:43)
[2018-09-23] MEDS: INSULIN GLARGINE SOLOSTAR 100 UNITS/ML 3 ML PEN SC SCH (21:53)
[2018-09-24] MEDS: PIPERACILLIN/TAZOBACTAM 4.5 GM in DEXTROSE 5% 100 ML IV SCH ×2 (01:43→13:52)
[2018-09-24 06:07] LABS: Hematocrit (blood only) 30.8 % (37-47); Hemoglobin 8.9 g/dL (12.0-16.0); Mean Corpuscular Hgb Conc 28.9 g/dL (32-36); Mean Corpuscular Volume 95.7 fL (80-100); Mean Platelet Volume 10.4 fL (7.4-10.4); Platelet Count 285 K/uL (130-400); RDW Coefficient of Variation 18.2 % (11.5-14.5); RDW Standard Deviation 62.3 fL (36.4-46.3); Red Blood Count 3.22 M/uL (4.2-5.4); White Blood Count 9.24 K/uL (4.8-10.8)
[2018-09-24] MEDS: LEVOTHYROXINE SODIUM 50 MCG TABLET PO SCH (06:07)
[2018-09-24] MEDS: MIDODRINE HCL 10 MG TAB PO SCH ×3 (06:07→18:05)
[2018-09-24 06:48] LABS: BUN Creatinine Ratio 5.3 (10-20); Calcium 9.5 mg/dl (8.5-10.1); Creatinine Clr Calc Pharmacy 15.6 ml/min; Est GFR (African American) 11.3; Est GFR (Non-African American) 9.7; Potassium 4.1 mmol/L (3.5-5.1)
[2018-09-24] MEDS: SEVELAMER HCL 800 MG TABLET PO SCH ×3 (07:33→18:05)
[2018-09-24] MEDS: OXYCODONE HCL IR 5 MG TAB (IMMEDIATE RELEASE) PO PRN (07:38)
[2018-09-24] MEDS: FLUTICASONE PROPIONATE NA SPR 16 GM BTL SCH (08:37)
[2018-09-24] MEDS: METOPROLOL SUCC 25MG EXT REL TAB PO SCH (08:37)
[2018-09-24] MEDS: ATORVASTATIN 40 MG TAB PO SCH (08:38)
[2018-09-24] MEDS: GABAPENTIN 100 MG CAP PO SCH ×2 (08:38→13:53)
[2018-09-24] MEDS: CLOPIDOGREL BISULFATE 75 MG TAB PO SCH (08:38)
[2018-09-24] MEDS: PANTOprazole 40 MG TAB PO SCH (08:38)
[2018-09-24] MEDS: ISOSORBIDE MONO EXTENDED REL 60 MG TABCR PO SCH (08:38)
[2018-09-24] MEDS: DOCUSATE SODIUM 100 MG CAP PO SCH (08:38)
[2018-09-24] MEDS: LACTOBACILLUS ACIDOPHILUS (FLORANEX) TAB PO SCH (08:38)
[2018-09-24] MEDS: NEPHROCAPS PO SCH (08:38)
[2018-09-24] MEDS: NYSTATIN POWDER 15GM BTL EXT SCH (08:39)
[2018-09-24] MEDS: ASPIRIN 81 MG ECTAB PO SCH (08:39)
[2018-09-24] MEDS: INSULIN ASPART 100 UNITS/ML 3 ML PEN SC SCH ×3 (08:43→18:46)
--- NOTE | 2018-09-24 16:26 | Hospitalist Progress Note ---
Date of Service September 24, 2018 Assessment & Plan (1) Gangrene of toe of right foot: (2) Peripheral vascular disease: Hx Diabetes type 2 possible related to diabetic with peripheral vascular disease with gangrene Severe PVD, S/P right SFA angioplasty and 2 stents at the right Popliteal artery , angioplasty on 08/10/2018 at [place] foot xray showed mild degenerative changes the level the first metatarsal phalangeal joint. Vascular surgery on board recommended a transmetatarsal amputation of the right foot. scheduled for RT TMA on 09/21 On IV Zosyn and IV vancomycin. Has been NPO for the procedure S/P day# 3 Right Transmetatarsal Amputation performed by Continue pain management Case discussed with Vascular Surgery Dr. 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 no evidence of infection recommend out pt follow up with [facility] hand Ortho Dr Vu (4) CAD (coronary artery disease): no complain of chest pain On aspirin /imdur/lopressor (5) Ischemic cardiomyopathy: Ischemic cardiomyopathy with chronic systolic heart failure no evidence of vol overload Echo showed mild concentric L ventricular hypertrophy left ventricular systolic function moderate to severely reduced with EF 30-35% Stable (6) Carotid stenosis: on aspirin /plavix (7) ESRD (end stage renal disease) on dialysis: On Tue/Tue/Tuesday schedule Last HD on yesterday Nephrology on board Monitor BMP (8) DM type 2 (diabetes mellitus, type 2): Most recent Hba1c 7.3 insulin SSI (9) Hemodialysis access, AV graft: (10) Ingrowing nail, left great toe: pain and swelling on left great toe with + positive erythema evidence of cellulitis due to ingrown toe nail Will consider to d/c IV vanco and Zosyn Will discharge on augmentin for additional 5 days Follow up with podiatry DVT px received heparin sub during HD CODE STATUS FULL CODE Disposition Transfer to rehab today Subjective Pt was seen and examined Sitting in chair with no distress Pt said that she feels much better She said that her pain seems better control Denies any chest pain, palpitation, dizziness and fever Physical Exam 2 Vital Signs (Past 24 Hours): Last Vital Signs Temp 36.3 C L 09/24/18 15:05 Pulse 63 09/24/18 15:05 Resp 16 09/24/18 15:05 BP 103/62 09/24/18 15:05 Pulse Ox 92 09/24/18 15:05 Physical Exam: General- No acute distress Head- atraumatic Eyes- PERRL, EOMI, ENT- oropharynx clear Neck- supple, no JVD Lungs- clear to auscultation Heart- regular rhythm; no murmur Abdomen- normal bowel sounds, soft, nontender Extremities- no calf tenderness, Right foot amputation with dressing on Neuro- alert, oriented x 3; PERRL, EOMI Skin- warm & dry _ (1) Carotid stenosis Laterality: unspecified laterality Qualified Code(s): I65.29 - Occlusion and stenosis of unspecified carotid artery (2) DM type 2 (diabetes mellitus, type 2) Chronic kidney disease stage: Diabetes mellitus complication detail: with peripheral angiopathy with gangrene Diabetes mellitus complication status: with circulatory complication Diabetes mellitus custodial insulin use: with termite exterminator helper use Diabetes mellitus macular edema: Diabetic retinopathy severity : Laterality: Proliferative retinopathy type: Qualified Code(s): E11.52 - Type 2 diabetes mellitus with diabetic peripheral angiopathy with gangrene; Z79.4 - terminal operations manager (current) use of insulin (3) CAD (coronary artery disease) Associated angina: without angina Coronary Disease-Associated Artery/Lesion type: [place] artery [place] vs. transplanted heart: [place] heart Qualified Code (s): I25.10 - Atherosclerotic heart disease of [place] coronary artery without angina pectoris
[2018-09-24] MEDS ORDERED: AMOXICILLIN/CLAVULANATE 500 MG TAB PO SCH (17:00)
--- NOTE | 2018-09-25 08:05 | Discharge Summary ---
Date of Service September 24, 2018 Admission HPI Per Admitting Provider CHIEF COMPLAINT: Gangrenous right toes. HISTORY OF PRESENT ILLNESS: This is a 52-year-old female with past medical history significant for end-stage renal disease on hemodialysis, CAD with 2 stents, ischemic cardiomyopathy, EF of 35%, diabetes type 2, hypertension, hyperlipidemia, status post carotid endarterectomy and peripheral vascular disease, status post right SFA angioplasty and 2 stents placement at [facility] on August 09 and was discharged on plavix and advised to continue statin and aspirin and follow up with and wound clinic.Again was admitted to the [facility] on August 17 because of the symptomatic hypotension from the dialysis clinic. The patient was still experiencing pain and tingling in the right foot. but at time Dr. Jones was not available, and the arterial Doppler shows no wave from right dorsalis pedis and vascular surgery at [facility] had accepted the patient and she stayed in [place] from August 18 to September 02. She was treated with antibiotics for few days, but no documented infection was discovered at that time.Her hospital stay at [place] was complicated by encephalopathy and hypotension and shock liver and that improved, but the toes of her right foot was again with blackish discoloration, and at [place], they thought that the patient might auto amputated as it was dry gangrene or she may need TMA, she was asked to followup on today, 09/19/2018 with vascular surgery and she was discharged.But today again the patient at the gangrenous right toe, she found some blisters and they were open and there was some drainage coming from it, so she came to the ER here today. There is some mild reddish erythematous changes noted around the gangrenous toes. The patient is also complaining of right ring finger distal palmar aspect blackish discoloration, first it was cyst there, now it turned into black and she has throbbing pain and she also has a cyst at the left finger and that is also throbbing and she is feeling numb in the fingertips.She is not ambulating much. She has been using a special boot. She sits on the wheelchair and only stands up in the bathroom and comes back, and lies in the bed. She lives with her niece who is taking full care of her.Because of going to the dialysis unit and lying on the bed and bed pans she is developing sores in the back that is also causing her trouble. Her niece told her that when she did wiping from rectum, they noticed some blood. There was also heme-positive stool at [place] and they thought it could be from hemorrhoids and they want to wait and see and she is to follow up as outpatient. Currently, the patient is resting comfortably, hemodynamically stable. Denies any headache, no cough, no sore throat. She has some blurred visions because of the cataracts, supposed to follow with the ophthalmology for laser procedure. Denies any chest pain, no shortness of breath, some nausea. No abdominal pain, somewhat constipated. Makes little urine. Appetite is okay. Admission Exam Per Admitting Provider GENERAL: The patient is obese, not in acute distress. VITAL SIGNS: Temperature 36.4, pulse 63, respiratory rate 16, blood pressure 106/58, oxygen 94% room air. HEENT: No pallor, no icterus. Pupils equal, round, and react to light. NECK: No JVD, no neck masses, no carotid bruits. CARDIOVASCULAR: S1, S2 heard, regular rate and rhythm. No murmur, no gallop. RESPIRATORY SYSTEM: Clear to auscultation bilaterally. No wheezing, no crackles. ABDOMEN: Soft, bowel sounds present. Nontender. No distention. CENTRAL NERVOUS SYSTEM: Nonfocal. EXTREMITIES: Gangrenous right toes and some erythematous changes also noted at the gangrenous toes and also black discretion of the right distal, middle of the ring finger. Principal Diagnosis Gangrene of toe of right foot Peripheral vascular disease Eschar of finger Ingrowing nail, left great toe ESRD on HD Discharge Exam General- No acute distress Head- atraumatic Eyes- PERRL, EOMI, ENT- oropharynx clear Neck- supple, no JVD Lungs- clear to auscultation Heart- regular rhythm; no murmur Abdomen- normal bowel sounds, soft, nontender Extremities- no calf tenderness, Right foot amputation with dressing on Neuro- alert, oriented x 3; PERRL, EOMI Skin- warm & dry Discharge Data Allergies Allergy/AdvReac Type Severity Reaction Status Date / Time adhesive Allergy Mild RASH, SORES Verified 09/19/18 01:01 No Known Drug Allergies Allergy Mild . Verified 09/19/18 01:01 latex Allergy Unknown rash Verified 09/19/18 01:01 pollen extracts Allergy Unknown WATERY EYES Verified 09/19/18 01:01 Consultations 09/19/18 05:14 Consult Case Management - Discharge Planning Routine 09/19/18 05:58 Consult Nephrology Routine 09/19/18 08:00 Consult Orthopedic Surgery Routine Consult Vascular Surgery Routine 09/19/18 16:26 Consult Podiatry Routine Procedures Performed Operation Date: 09/21/18 14:10 Actual Procedures p Right Transmetatarsal Amputation(Right) - Andrea Jones MD LEFT INDEX FINGER 3 VIEWS CLINICAL HISTORY: left index finger wound COMPARISON: September 29, 2016 DISCUSSION: No acute fractures are visualized. There are extensive soft tissue calcifications anterior to the distal phalanx of the index finger. IMPRESSION: 1. No acute fractures 2. Extensive soft tissue calcification adjacent to the distal phalanx of the index finger. This has a wide differential including dystrophic calcifications, metabolic disease, autoimmune disease, as well as posttraumatic etiologies. Electronically signed by: Daniel Saenz M.D. 09/19/2018 7:08 AM Dictated: 09/19/18 0705 Transcribed: 09/19/18 07 XR foot RT min 3V routine CLINICAL HISTORY: Right foot infection COMPARISON: None. DISCUSSION: There are vascular calcifications present. There are soft tissue calcifications present adjacent the proximal phalanges of the third and fifth fingers. There is also soft tissue calcification adjacent to the tuft of the distal phalanx the great toe. There is a lucency involving the tuft of the distal phalanx the great toe. This is a nonspecific finding. Infection cannot be excluded. There is a plantar calcaneal spur. No acute fractures are visualized. There are mild degenerative changes the level the first metatarsal phalangeal joint. IMPRESSION: 1. No acute fractures 2. Arterial calcification 3. Soft tissue calcifications 4. Cystic lucency involving the tuft of distal phalanx the great toe. This is a nonspecific finding. Infection cannot be excluded. Clinical correlation in this regard will be necessary. Electronically signed by: Daniel Saenz M.D. 09/19/2018 6:52 AM Dictated: 09/19/18 0650 Transcribed: 09/19/18 06 Hospital Course (1) Gangrene of toe of right foot: (2) Peripheral vascular disease: Hx Diabetes type 2 possible related to diabetic with peripheral vascular disease with gangrene Severe PVD, S/P right SFA angioplasty and 2 stents at the right Popliteal artery , angioplasty on 08/10/2018 at [place] foot xray showed mild degenerative changes the level the first metatarsal phalangeal joint. Vascular surgery on board recommended a transmetatarsal amputation of the right foot. scheduled for RT TMA on 09/21 On IV Zosyn and IV vancomycin. Has been NPO for the procedure S/P day# 3 Right Transmetatarsal Amputation performed by Continue pain management Case discussed with Vascular Surgery Dr. 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 no evidence of infection recommend out pt follow up with [facility] hand Ortho Dr Vu (4) CAD (coronary artery disease): no complain of chest pain On aspirin /imdur/lopressor (5) Ischemic cardiomyopathy: Ischemic cardiomyopathy with chronic systolic heart failure no evidence of vol overload Echo showed mild concentric L ventricular hypertrophy left ventricular systolic function moderate to severely reduced with EF 30-35% Stable (6) Carotid stenosis: on aspirin /plavix (7) ESRD (end stage renal disease) on dialysis: On Tue/Tue/Tuesday schedule Last HD on yesterday Nephrology on board Monitor BMP (8) DM type 2 (diabetes mellitus, type 2): Most recent Hba1c 7.3 insulin SSI (9) Hemodialysis access, AV graft: (10) Ingrowing nail, left great toe: pain and swelling on left great toe with + positive erythema evidence of cellulitis due to ingrown toe nail Will consider to d/c IV vanco and Zosyn Will discharge on augmentin for additional 5 days Follow up with podiatry DVT px received heparin sub during HD CODE STATUS FULL CODE Disposition Transfer to rehab today Total Time Total Time Spent Total Time Spent (In Minutes): 35 minutes Total Time Includes: Examination of the Patient, Discharge Planning, Medication Reconciliation, Communication With Other Providers and Other Discharge Plan Discharge Items Patient Disposition: Transfer Inpatient Rehab Fac Reason For Visit: GANGRENOUS RIGHT TOES, INFECTION OF RT FOREFINGER? Discharge Diagnosis: Gangrene of toe of right foot/ Peripheral vascular disease / Eschar of finger/ Ingrowing nail, left great toe/ESRD on HD Discharge Goals: Decrease discomfort, Improve disease control, Improve function and Increase independence Activity: Resume your previous activity Activity Comment: As tolerated Non-emergency contact: Primary Care Provider and Surgeon Call non-emergency contact if: you have any medication questions, your pain is not controlled, your temperature is above 101, your wound has increased redness , your wound has increased drainage and your wound pain has increased Diet: Carb Consistent or DM2 and Dialysis Renal Addtl Provider Instructions: Follow up with your primary care provider once discharge from rehab Follow up with Vascular surgeon Dr. Jones in 2 weeks (Please call to schedule follow up appointment) Follow up with [facility] hand Ortho Dr Vu (Please call to schedule for the appointment) Follow up with Podiatry Dr. Ba for the Left great toenail ingrown Next dialysis will be tomorrow Continue physical and occupational therapy Fall precaution Continue daily would care and dressing Monitor Blood sugar closely Hold oxycodone and lorazepam if patient develops any drowsiness and lethargy Do not drive or operate any machine while on oxycodone and lorazepam Prescriptions: New oxycodone 5 mg Tablet 5 mg PO Q6H PRN (Reason: pain) 2 Days Qty: 8 RF: 0 amoxicillin-pot clavulanate [Augmentin] 500-125 mg tablet 1 tab PO DAILY Qty: 5 RF: 0 Continue atorvastatin 40 mg tablet 40 mg PO DAILY RF: 0 clopidogrel 75 mg tablet 75 mg PO DAILY RF: 0 pantoprazole 40 mg tablet,delayed release (DR/EC) 40 mg PO DAILY RF: 0 nitroglycerin 0.4 mg tablet, sublingual 0.4 mg Sublingual DIRECTED PRN (Reason: Chest Pain) RF: 0 sertraline 25 mg tablet 25 mg PO DAILY RF: 0 aspirin 81 mg Tablet,Delayed Release (Dr/Ec) 81 mg PO DAILY RF: 0 docusate sodium 100 mg Tablet 100 mg PO BID RF: 0 acetaminophen 500 mg Tablet 500 mg PO Q4H PRN (Reason: pain/fever) RF: 0 darbepoetin lillian in polysorbat [Aranesp (in polysorbate)] 60 mcg/mL Solution 60 mcg subcut DIRECTED RF: 0 fluticasone [Flonase Allergy Relief] 50 mcg/actuation [place],Suspension 1 spray INTRANASAL DAILY RF: 0 gabapentin 100 mg Capsule 100 mg PO TID RF: 0 isosorbide mononitrate 60 mg Tablet Extended Release 24 Hr 60 mg PO DAILY RF: 0 levothyroxine 50 mcg Tablet 50 mcg PO DAILY RF: 0 meclizine 25 mg Tablet 25 mg PO TID PRN (Reason: Dizziness) RF: 0 metoprolol succinate 25 mg Tablet Extended Release 24 Hr 12.5 mg PO BID RF: 0 midodrine 10 mg Tablet 10 mg PO TID RF: 0 B complex with C#20-folic acid [Nephrocaps] 1 mg Capsule 1 cap PO DAILY RF: 0 nystatin 100,000 unit/gram Powder 1 applic TOPICAL BID RF: 0 sennosides-docusate sodium [Senna-S] 8.6-50 mg Tablet 2 tab PO DAILY PRN (Reason: Constipation) RF: 0 sevelamer carbonate [Renvela] 800 mg Tablet 3,200 mg PO TID RF: 0 lorazepam [Ativan] 0.5 mg Tablet 0.5 mg PO DAILY PRN (Reason: Anxiety) 2 Days Qty: 2 RF: 0 Changed insulin glargine 100 unit/mL (3 mL) insulin pen 20 unit subcut HS Qty: 0 RF: 0 Stand-Alone Forms: [facility] Discharge Orders: Discharge Order (Routine); Ordered 09/24/18 Ordered By: Rekha Parham Skilled Items Patient informed of condition?: Yes DNR: No Discharge Level of Care: Acute rehab Communicable Disease: No Discharge Prognosis: Stable Admission Data Admit Date/Time: 09/19/18 04:11 Attending Provider: Rekha Parham Admit Provider: Chai Canchola Primary Care Provider: Tamy Becerra Other Providers: Srping Torres ; Tereza Mas ; Christian Garcia ; Shahbaz Prakash I ; Alka Green ; Jdoy Berg ; Anuel Pryor ; Andrea Jones ; Mauro Ba Service: Surgical Services Other Interventions: *Nursing Shift Assessment Last Done: 09/24/18 15:40 Discharge Summary Assessment (RN) Last Done: 09/24/18 19:31 DC Date/Time DO NOT enter until pt leaves facility: 09/24/18 19:47
== END 2018-09-24 19:47 | DRG 239 ==
LOC: ED 00:11 → 3N 04:11 → SUATTDRO 04:11 → 3N 04:43

== ENCOUNTER 2018-10-05 15:28 | Inpatient (IN) ==
[2018-10-05] MEDS ORDERED: ONDANSETRON INJ 2 MG/ML 2 ML VIAL IV PRN (15:44)
--- NOTE | 2018-10-05 15:44 | History & Physical Report ---
Date of Service October 05, 2018 Assessment & Plan (1) Foot infection: Pt with infected TMA R foot. Per discussion with Dr Luz, pt for admission to [facility] for pain relief and IV abx. Pt agreeable. Present on Admission?: Yes (2) Status post transmetatarsal amputation of right foot: Infected, admitted to [facility] Present on Admission?: Yes History of Present Illness Chief Complaint: RLE TMA infection Primary Care Provider: Tamy Becerra 52 yo f with multiple medical problems, including ESRD on HD, carotid stenosis s /p CEA, CAD, DMII, GERD, HTN, dyslipidemia, morbid obesity, and PAD, admitted with infection of R foot TMA. Pt had gangrenous toes of R foot and known PAD. SHe underwent revascularization at [facility] approx 6 weeks ago which included angiography and stenting of RLE. She had complete RLE TMA on 09/21/[address] Luz d/t gangrene of R toes. She was seen in office today for follow up, stating severe pain in RLE and unable to bear weight d/t pain. Denies other complaints aside from fatigue. Denies NELSON, fever, chills, chest pain, SOB, abd pain, N/V, other complaints. Underwent arterial US in office today which demonstrated patent SFA, but severe distal disease. Recommended to undergo admission to [facility] for abx d/t infection in R foot noted in office today. Allergies Allergy/AdvReac Type Severity Reaction Status Date / Time adhesive Allergy Mild RASH, SORES Verified 09/19/18 01:01 No Known Drug Allergies Allergy Mild . Verified 09/19/18 01:01 latex Allergy Unknown rash Verified 09/19/18 01:01 pollen extracts Allergy Unknown WATERY EYES Verified 09/19/18 01:01 Home Medications Home Medications Medication Instructions Recorded Confirmed Type aspirin 81 mg PO DAILY 08/16/18 09/19/18 History atorvastatin 40 mg PO DAILY 08/16/18 09/19/18 History clopidogrel 75 mg PO DAILY 08/16/18 09/19/18 History nitroglycerin 0.4 mg SUBLINGUAL DIRECTED PRN 08/16/18 09/19/18 History pantoprazole 40 mg PO DAILY 08/16/18 09/19/18 History sertraline 25 mg PO DAILY 08/16/18 09/19/18 History B complex with C#20-folic acid 1 cap PO DAILY 09/19/18 09/19/18 History [Nephrocaps] acetaminophen 500 mg PO Q4H PRN 09/19/18 09/19/18 History darbepoetin lillian in polysorbat 60 mcg SUBCUT DIRECTED 09/19/18 09/19/18 History [Aranesp (in polysorbate)] docusate sodium 100 mg PO BID 09/19/18 09/19/18 History fluticasone [Flonase Allergy 1 spray INTRANASAL DAILY 09/19/18 09/19/18 History Relief] gabapentin 100 mg PO TID 09/19/18 09/19/18 History isosorbide mononitrate 60 mg PO DAILY 09/19/18 09/19/18 History levothyroxine 50 mcg PO DAILY 09/19/18 09/19/18 History meclizine 25 mg PO TID PRN 09/19/18 09/19/18 History metoprolol succinate 12.5 mg PO BID 09/19/18 09/19/18 History midodrine 10 mg PO TID 09/19/18 09/19/18 History nystatin 1 applic TOPICAL BID 09/19/18 09/19/18 History sennosides-docusate sodium 2 tab PO DAILY PRN 09/19/18 09/19/18 History [Senna-S] sevelamer carbonate [Renvela] 3,200 mg PO TID 09/19/18 09/19/18 History amoxicillin-pot clavulanate 1 tab PO DAILY #5 tab 09/24/18 Rx [Augmentin] insulin glargine 20 unit SUBCUT HS #0 ml 09/24/18 09/19/18 Rx Past Med/Surg History Medical History Peripheral vascular disease (Chronic) s/p R SFA [place] [facility] Arthritis (Chronic) CAD (coronary artery disease) (Chronic) "s/p PCI and BMS to left circumflex 03/2016" Ischemic cardiomyopathy (Chronic) "echo 05/2016 - EF 40-45%, grade I diastolic dysfunction" Carotid stenosis (Chronic) "left ICA" ESRD (end stage renal disease) on dialysis (Chronic) MWF DM type 2 (diabetes mellitus, type 2) (Chronic) GERD (gastroesophageal reflux disease) (Chronic) Allergic rhinitis (Chronic) Morbid obesity (Chronic) Dyslipidemia (Chronic) Tobacco use disorder (Resolved) HTN (hypertension) (Chronic) C. difficile colitis (Resolved) Anemia MRSA (methicillin resistant Staphylococcus aureus) colonization Nares Surgical History Hemodialysis access, AV graft (Chronic) "[facility] Dr. Luz 08/25/12" History of left-sided carotid endarterectomy (Resolved) Family History Other Diabetes Heart disease Social History marital status: / Current Living Situation: Alone Current Living Situation Comment: Living with family at this time. Feels Safe at Home: Yes Smoking Status: Never smoker Hx Alcohol Use: No Hx Substance Use: No Beliefs That Will Affect Care: None Preferred Language: Italian Visual Impairment: No Limitations Review of Systems Constitutional: + fatigue; no fever, no chills, no sweats, no malaise and no weight loss Eyes: no blind spots and no problem reported Ear, Nose, Mouth, Throat: no hearing loss and no sore throat Respiratory: no cough, no dyspnea, no dyspnea on exertion and no hemoptysis Cardiovascular: no chest pain, no palpitations, no syncope, no claudication and no problem reported Gastrointestinal: no abdominal pain, no early satiety, no nausea, no vomiting, no cramping, no change in bowel habits, no diarrhea/loose stools and no blood in stools Musculoskeletal: no back pain, no swelling and no muscle weakness pain R foot Integumentary: no rash, no non-healing lesions, no skin ulcer, no wounds and no erythema Neurologic: no localized weakness, no generalized weakness, no paralysis, no loss of sensation, no tingling, no numbness, no paresthesia, no seizure-like activity, no syncope, no headache(s) and no confusion Psychiatric: as per Subjective / HPI Hematologic / Lymphatic: no easy bleeding, no easy bruising, no coagulopathy, no night sweats and no unexplained weight loss Physical Exam 2 Constitutional: WD/WN, vitals as above well developed, well nourished, + ill appearing, + morbidly obese, + disheveled, cooperative and comfortable Eyes: PERRL, conjunctivae normal, anicteric sclerae EOM intact bilaterally ENMT: external ear and nose normal, oropharynx normal Nose: no nasal discharge Throat: no posterior oropharynx abnormality Neck: trachea midline, no thyromegaly no tracheal deviation, no neck crepitus and neck nontender Respiratory: normal respiratory effort, lungs clear to auscultation able to speak in complete sentences; does not use accessory muscles, no cough, not tachypneic and no audible wheezes Auscultation: lungs clear to auscultation bilaterally and + diminished lung sounds; no rhonchi and no wheezes Cardiovascular: RRR, no murmur, no edema Heart Sounds: no gallop and no murmur Vessels: + carotid bruit (prior CEA), femoral pulses present, brachial pulses present and radial pulses present; + abnormal peripheral pulses , + posterior tibial pulses abnormal and + dorsalis pedis pulses abnormal Extremities: + edema (RLE) and + AV fistula (LUE AVF); + abnormal capillary refill Chest (Breasts): Chest: normal inspection of chest Gastrointestinal (Abdomen): normal bowel sounds, soft, nontender, no hepatosplenomegaly Inspection/Auscultation: abdomen normal to inspection, normal bowel sounds and + significant pannus Percussion/Palpation: abdomen soft; abdomen nontender, no guarding and abdomen not rigid Musculoskeletal: no cyanosis or clubbing, extremities motor strength 5/5 Head/Neck/Chest: normocephalic, head atraumatic and neck supple Extremities: extremities normal to inspection, strength 5/5 throughout, + amputation noted ( RLE TMA with necrosis laterally, significant edema, warmth, erythema, and tenderness. + local maceration, no significant drainage noted.) and + foot abnormality; full ROM of extremities Skin: normal turgor, + turgor decreased, + rash, + wound, + erythema, + eschar , + excoriations and + incision; no lesions and no ulcers Neurologic: moves all extremities and awake; no focal motor deficits and not confused Speech / Cognition: no expressive aphasia and no receptive aphasia Motor/Sensory: no tremor Cranial Nerves: EOM intact bilaterally and normal facial strength Gait: not gait assisted (wheelchair) Psychiatric: Orientation: alert, oriented x 3, oriented to person, oriented to place, oriented to time and cooperative Apperance: appropriately dressed, appropriately groomed, + disheveled and appeared stated age Affect: + depressed affect, + anxious affect and + tearful affect Thought Process: goal directed thought process, linear/logical thought process and clear/ coherent thought process Cognition: recent memory grossly intact, remote memory grossly intact, attention grossly intact and language grossly intact Estimated Intelligence: + below average estimated intelligence Lymphatic: no lymphedema Code Status & VTE Plan Code Status Full Code VTE Prophylaxis Plan VTE Prophylaxis will be ordered: Yes
[2018-10-05] MEDS ORDERED: CARBOHYDRATES FOR HYPOGLYCEMIA PO PRN (15:50)
[2018-10-05] MEDS ORDERED: GLUCAGON FOR INJ 1 MG VIAL SQ PRN (15:50)
[2018-10-05] MEDS ORDERED: GLUCOSE 10 TABS/TUBE PO PRN (15:50)
[2018-10-05] MEDS ORDERED: GLUCOSE 40% GEL 15 GM TUBE PO PRN (15:50)
[2018-10-05] MEDS ORDERED: DEXTROSE 50% 50 ML SYRINGE IV PRN (15:50)
[2018-10-05] MEDS ORDERED: ACETAMINOPHEN 325 MG TAB PO PRN (15:59)
[2018-10-05] MEDS ORDERED: VANCOMYCIN CONSULT ACTIVE PRN (16:17)
[2018-10-05] MEDS ORDERED: PATIENT'S HEIGHT AND/OR WEIGHT NEEDED SCH (16:45)
[2018-10-05] MEDS ORDERED: VANCOMYCIN HCL 1,500 MG in SODIUM CHLORIDE 0.9% 500 ML IV ONE (17:30)
[2018-10-05 18:46] LABS: Basophils # (auto) 0.03 K/uL (0-0.2); Basophils % (auto) 0.3 %; Eosinophils # (auto) 0.26 K/uL (0-0.5); Hematocrit (blood only) 33.7 % (37-47); Hemoglobin 9.8 g/dL (12.0-16.0); Immature Granulocytes # (auto) 0.02 K/uL (0.00-0.02); Immature Granulocytes % (auto) 0.2 %; Lymphocytes # (auto) 2.18 K/uL (1.2-3.4); Mean Corpuscular Hgb Conc 29.1 g/dL (32-36); Mean Corpuscular Volume 91.6 fL (80-100); Monocytes # (auto) 0.89 K/uL (0.11-0.59); Monocytes % (auto) 10.3 %; Neutrophils # (auto) 5.26 K/uL (1.4-6.5); Platelet Count 366 K/uL (130-400); RDW Coefficient of Variation 18.2 % (11.5-14.5); RDW Standard Deviation 60.5 fL (36.4-46.3); Red Blood Count 3.68 M/uL (4.2-5.4); White Blood Count 8.64 K/uL (4.8-10.8)
[2018-10-05] MEDS: INSULIN ASPART 100 UNITS/ML 3 ML PEN SC SCH ×2 (18:50→20:36)
[2018-10-05 19:06] LABS: Lymphocytes % (auto) 25.2 %
[2018-10-05 19:10] LABS: Anisocytosis Present
[2018-10-05 19:29] LABS: BUN Creatinine Ratio 7.3 (10-20); Blood Urea Nitrogen 31 mg/dl (7-18); Carbon Dioxide 28 mmol/L (21-32); Chloride 95 mmol/L (98-107); Creatinine Clr Calc Pharmacy 19.4 ml/min; Est GFR (Non-African American) 11.2; Glucose 100 mg/dl (70-99); Sodium 132 mmol/L (136-145)
--- NOTE | 2018-10-05 21:03 | Pharmacy Report ---
Pharmacy Abx Dose Short Note - Date of Service October 05, 2018 - Assessment & Plan Assessment 52 year old F receiving iv Vancomycin for treatment of right foot infection. Pt with ESRD on HD MWF Day # 1 IV Vancomycin of antimicrobial therapy. Patient admitted recently s/p transmetatarsal amputation 09/21/18 and received IV Vancomycin Patient came from [facility] and apparently received no antibiotics prior to admission Plan Vancomycin 1500mg (15 mg/kg) x 1 dose @1830 hours tonight and will follow serial levels starting with random level with AM labs tomorrow Pharmacy will continue to follow and will adjust dose/frequency as necessary. Thank you.
[2018-10-06] MEDS: HYDROCODONE/ACETAMOPHEN 5/325MG TAB PO PRN ×4 (01:12→23:42)
[2018-10-06] MEDS ORDERED: Nursing to Pharmacy Communication ONE ×2 (04:50→10:01)
[2018-10-06] MEDS ORDERED: INSULIN ASPART 100 UNITS/ML 3 ML PEN SC SCH (06:00)
[2018-10-06] MEDS: MoRPHine SULFATE 4 MG/ML 1 ML CARP\\VIAL IV PRN (08:42)
[2018-10-06] MEDS ORDERED: HEPARIN SOD (PORCINE) 1000 UNIT/ML 10 ML VIAL IV SCH (08:53)
[2018-10-06] MEDS ORDERED: SODIUM CHLORIDE 0.9% 1000ML 1,000 ML IV PRN (08:53)
--- NOTE | 2018-10-06 09:23 | Pharmacy Report ---
Pharmacy Abx Dose Short Note - Date of Service October 06, 2018 - Assessment & Plan Assessment 52 year old F receiving Vancomycin for treatment of infected TMA R foot s/p transmetatarsal amputation of right foot. Day # 2 of antimicrobial therapy. Plan Vancomycin * Random level pre-HD= 21.9 mcg/mL * Pt scheduled for HD M,W,F (scheduled for today) * Based on pre-HD level post-HD vancomycin dose should be 0-500mg * Will give 500mg today after HD since heading into the weekend Pharmacy will continue to follow and will adjust dose/frequency as necessary. Thank you.
[2018-10-06] MEDS ORDERED: EPOETIN ALFA 10,000 UNITS/ML VIAL IV SCH (10:00)
[2018-10-06] MEDS: HEPARIN SOD (PORCINE) 1000 UNIT/ML 10 ML VIAL IV SCH (11:15)
[2018-10-06] MEDS ORDERED: DOCUSATE SODIUM/SENNA 50/8.6MG TAB PO PRN (12:46)
[2018-10-06] MEDS ORDERED: MECLIZINE HCL 25 MG TAB PO PRN (12:46)
[2018-10-06] MEDS ORDERED: NITROGLYCERIN SL 0.4 MG/TAB TAB SL PRN (12:46)
--- NOTE | 2018-10-06 12:55 | Surgery Progress Note ---
Date of Service October 06, 2018 Assessment & Plan (1) Foot infection: Pt with infected TMA R foot. Pt seen by Dr Jones, planning on debridement of R foot on Tuesday after abx administration through the weekend. (2) Status post transmetatarsal amputation of right foot: Infected, for debridement next week. Subjective 52 yo f 2 weeks post op from RLE TMA d/t gangrene of toes, now admittted with infection of wound, seen in f/u today. Pt denies new complaints. Does admit pain in foot. Physical Exam 2 Vital Signs (Past 24 Hours): Last Vital Signs Temp 37.2 C 10/06/18 10:00 Pulse 61 10/06/18 12:45 Resp 16 10/06/18 07:10 BP 86/43 L 10/06/18 12:45 Pulse Ox 92 10/06/18 07:10 Constitutional: well developed, well nourished, + ill appearing, + morbidly obese, + disheveled, cooperative and comfortable Respiratory: normal respiratory effort, lungs clear to auscultation able to speak in complete sentences; does not use accessory muscles, no cough, not tachypneic and no audible wheezes Auscultation: lungs clear to auscultation bilaterally and + diminished lung sounds; no rhonchi and no wheezes Cardiovascular: RRR, no murmur, no edema Heart Sounds: no gallop and no murmur Vessels: + carotid bruit (prior CEA), femoral pulses present, brachial pulses present and radial pulses present; + abnormal peripheral pulses , + posterior tibial pulses abnormal and + dorsalis pedis pulses abnormal Extremities: + edema (RLE) and + AV fistula (LUE AVF); + abnormal capillary refill Gastrointestinal (Abdomen): normal bowel sounds, soft, nontender, no hepatosplenomegaly Inspection/Auscultation: abdomen normal to inspection, normal bowel sounds and + significant pannus Percussion/Palpation: abdomen soft; abdomen nontender, no guarding and abdomen not rigid Musculoskeletal: no cyanosis or clubbing, extremities motor strength 5/5 Head/Neck/Chest: normocephalic, head atraumatic and neck supple Extremities: extremities normal to inspection, strength 5/5 throughout, + amputation noted ( RLE TMA with necrosis laterally, significant edema, warmth, erythema, and tenderness. + local maceration, no significant drainage noted.) and + foot abnormality; full ROM of extremities Skin: normal turgor, + turgor decreased, + rash, + wound, + erythema, + eschar , + excoriations and + incision; no lesions and no ulcers Psychiatric: Orientation: alert, oriented x 3, oriented to person, oriented to place, oriented to time and cooperative Apperance: appropriately dressed, appropriately groomed, + disheveled and appeared stated age Affect: + depressed affect, + anxious affect and + tearful affect
[2018-10-06] MEDS: METOPROLOL TARTRATE 25 MG TAB PO SCH ×2 (15:48→21:27)
[2018-10-06] MEDS: PANTOprazole 40 MG TAB PO SCH (15:50)
[2018-10-06] MEDS: CLOPIDOGREL BISULFATE 75 MG TAB PO SCH (15:51)
[2018-10-06] MEDS: GABAPENTIN 100 MG CAP PO SCH ×2 (15:51→21:28)
[2018-10-06] MEDS: ISOSORBIDE MONO EXTENDED REL 60 MG TABCR PO SCH (15:51)
[2018-10-06] MEDS ORDERED: VANCOMYCIN HCL 500 MG in SODIUM CHLORIDE 0.9% 250 ML IV SCH (18:00)
[2018-10-06] MEDS: MIDODRINE HCL 10 MG TAB PO SCH (19:00)
[2018-10-06] MEDS: SEVELAMER HCL 800 MG TABLET PO SCH (19:00)
--- NOTE | 2018-10-06 19:31 | Nephrology Consultation ---
Date of Consultation October 06, 2018 Assessment & Plan (1) ESRD (end stage renal disease) on dialysis: Patient on HD MWF. Last HD was on tuesday. She was dialysed today for 4hrs, QB 400 and QD 800. Target UF 2 litres. She was seen on HD. She tolerated HD well. Next HD will be tuesday (2) Foot infection: She is getting vancomycin. She will need another dose of vancomycin after HD (3) Hypotension: Continue midodrine 10mg tid. BP acceptable. History of Present Illness Reason for Consultation: ESRD on HD complicated by infected foot Requesting Physician: Andrea Jones MD Attending Physician: Andrea Jones MD History of Present Illness 52 y/o F on MWF HD via avf admitted 10/05/2018 from [facility] rehab for IV antibiotics and possible debridement/amputation. Patient recently had TMA R foot and has been recovering at rehab but now the foot is infected. Other PMH includes DM, CAD w/ stents, ICMO EF 35%, DM2, PVD s/ p R SFA angioplasty and 2 stents, also s/p R CEA. her last HD was tuesday which was uneventful. She feels fine, denies any SOB or chest pain. She complains of pain in the right foot. No leg edema. I initially saw the patient in her room. I later returned to the dialysis unit. Patient was again seen and examined on HD. Allergies Allergy/AdvReac Type Severity Reaction Status Date / Time adhesive Allergy Mild RASH, SORES Verified 09/19/18 01:01 No Known Drug Allergies Allergy Mild . Verified 09/19/18 01:01 latex Allergy Unknown rash Verified 09/19/18 01:01 pollen extracts Allergy Unknown WATERY EYES Verified 09/19/18 01:01 Home Medications Home Medications Medication Instructions Recorded Confirmed Type aspirin 81 mg PO DAILY 08/16/18 10/05/18 History atorvastatin 40 mg PO DAILY 08/16/18 10/05/18 History clopidogrel 75 mg PO DAILY 08/16/18 10/06/18 History nitroglycerin 0.4 mg SUBLINGUAL DIRECTED PRN 08/16/18 10/06/18 History pantoprazole 40 mg PO DAILY 08/16/18 10/05/18 History sertraline 25 mg PO DAILY 08/16/18 10/05/18 History B complex with C#20-folic acid 1 cap PO DAILY 09/19/18 10/06/18 History [Nephrocaps] darbepoetin lillian in polysorbat 60 mcg SUBCUT WK 09/19/18 10/06/18 History [Aranesp (in polysorbate)] docusate sodium 100 mg PO BID 09/19/18 10/05/18 History fluticasone [Flonase Allergy 1 spray INTRANASAL DAILY 09/19/18 10/06/18 History Relief] gabapentin 100 mg PO TID 09/19/18 10/05/18 History isosorbide mononitrate 60 mg PO DAILY 09/19/18 10/05/18 History levothyroxine 50 mcg PO DAILY 09/19/18 10/05/18 History meclizine 25 mg PO TID PRN 09/19/18 10/06/18 History midodrine 10 mg PO TID 09/19/18 10/06/18 History nystatin 1 applic TOPICAL BID 09/19/18 10/06/18 History sennosides-docusate sodium 2 tab PO DAILY PRN 09/19/18 10/05/18 History [Senna-S] sevelamer carbonate [Renvela] 3,200 mg PO TID 09/19/18 10/05/18 History amoxicillin-pot clavulanate 1 tab PO DAILY #5 tab 09/24/18 10/05/18 Rx [Augmentin] acetaminophen 650 mg PO Q4 PRN 10/06/18 10/06/18 History bisacodyl 10 mg ND DAILY PRN 10/06/18 10/06/18 History hydrocodone-acetaminophen [[place]] 1 tab PO Q6H 10/06/18 10/06/18 History insulin glargine 15 unit SUBCUT HS 10/06/18 10/06/18 History lidocaine 1 patch TOPICAL DAILY 10/06/18 10/06/18 History lorazepam [Ativan] 0.5 mg PO DAILY PRN 10/06/18 10/06/18 History magnesium hydroxide [Milk of 30 ml PO DAILY PRN 10/06/18 10/06/18 History Magnesia] metoprolol tartrate 12.5 mg PO BID 10/06/18 10/06/18 History ondansetron HCl [Zofran] 4 mg PO QID PRN 10/06/18 10/06/18 History oxycodone 5 mg PO Q4 PRN 10/06/18 10/06/18 History polyethylene glycol 3350 [Miralax] 17 g PO DAILY PRN 10/06/18 10/06/18 History sodium phosphates [Fleet Enema] 118 ml ND DAILY PRN 10/06/18 10/06/18 History Patient History Medical History Peripheral vascular disease (Chronic) s/p R SFA angioplasty with 2 st[place] [facility] Arthritis (Chronic) CAD (coronary artery disease) (Chronic) "s/p PCI and BMS to left circumflex 03/2016" Ischemic cardiomyopathy (Chronic) "echo 05/2016 - EF 40-45%, grade I diastolic dysfunction" Carotid stenosis (Chronic) "left ICA" ESRD (end stage renal disease) on dialysis (Chronic) MWF DM type 2 (diabetes mellitus, type 2) (Chronic) GERD (gastroesophageal reflux disease) (Chronic) Allergic rhinitis (Chronic) Morbid obesity (Chronic) Dyslipidemia (Chronic) Tobacco use disorder (Resolved) HTN (hypertension) (Chronic) C. difficile colitis (Resolved) Anemia MRSA (methicillin resistant Staphylococcus aureus) colonization Nares Surgical History Hemodialysis access, AV graft (Chronic) "[facility] Dr. Jones 08/25/12" History of left-sided carotid endarterectomy (Resolved) Family History Other Diabetes Heart disease Social History marital status: / Current Living Situation: Family Current Living Situation Comment: Lives with Niece Other Information That Helps Us Care for You: No Feels Safe at Home: Yes Safety Concerns: Feels Safe At This Time Smoking Status: Former smoker Tobacco Type: cigarettes Do You Dip or Chew Tobacco: No Smoking End Date: 2005 Second Hand Exposure: Yes Tobacco Cessation Education Requested by Patient: No Hx Alcohol Use: Yes (holidays) Alcohol type: hard liquor Alcohol Intake Frequency: holidays/special occasions only Hx Substance Use: No Beliefs That Will Affect Care: None Communication Ability: Effective Review of Systems All other systems were reviewed and negative except as noted in HPI Physical Exam 2 Vital Signs (Past 24 Hours): Last Vital Signs Temp 36.7 C 10/06/18 15:05 Pulse 80 10/06/18 15:05 Resp 20 10/06/18 15:05 BP 105/70 10/06/18 15:05 Pulse Ox 96 10/06/18 15:05 Physical Exam: General exam: Appears comfortable, no acute distress HEENT: Pupils are equal and reactive to light Neck: No JVD, neck is supple trachea is midline Respiratory system: Clear breath sounds bilaterally. Gastrointestinal: Abdomen is soft, non distended, non tender, bowel sounds are present CVS: Regular rate and rhythm. No murmurs, rubs or gallops Musculoskeletal: No joint or muscle tenderness Extremities: Non tender, no edema, peripheral pulses are present. right foot wrapped Neuro: Oriented, no tremors, no focal neurological deficits Skin: No rashes Access: AVF Results & Data Laboratory Results hb 9.8, k 4.6 _ (1) Hypotension Hypotension type: unspecified hypotension type Trimester: Qualified Code(s) : I95.9 - Hypotension, unspecified
[2018-10-06] MEDS: DOCUSATE SODIUM 100 MG CAP PO SCH (21:23)
[2018-10-06] MEDS: NYSTATIN POWDER 15GM BTL EXT SCH (21:29)
[2018-10-06] MEDS: INSULIN ASPART 100 UNITS/ML 3 ML PEN SC SCH ×3 (23:32→23:53)
[2018-10-07] MEDS: LEVOTHYROXINE SODIUM 50 MCG TABLET PO SCH (05:58)
[2018-10-07] MEDS: HYDROCODONE/ACETAMOPHEN 5/325MG TAB PO PRN ×3 (06:00→22:28)
[2018-10-07] MEDS ORDERED: SERTRALINE HCL 50 MG TABLET PO SCH (09:00)
[2018-10-07] MEDS: SEVELAMER HCL 800 MG TABLET PO SCH ×3 (09:36→17:50)
[2018-10-07] MEDS: INSULIN ASPART 100 UNITS/ML 3 ML PEN SC SCH ×4 (09:38→21:44)
[2018-10-07] MEDS: DOCUSATE SODIUM 100 MG CAP PO SCH ×2 (09:40→20:33)
[2018-10-07] MEDS: MIDODRINE HCL 10 MG TAB PO SCH ×3 (09:43→18:40)
[2018-10-07] MEDS: ISOSORBIDE MONO EXTENDED REL 60 MG TABCR PO SCH (09:44)
[2018-10-07] MEDS: ASPIRIN 81 MG ECTAB PO SCH (09:44)
[2018-10-07] MEDS: FLUTICASONE PROPIONATE NA SPR 16 GM BTL SCH (09:44)
[2018-10-07] MEDS: LIDOCAINE 5% 1 PATCH TD SCH (09:45)
[2018-10-07] MEDS: NYSTATIN POWDER 15GM BTL EXT SCH ×2 (09:49→20:40)
[2018-10-07] MEDS: METOPROLOL TARTRATE 25 MG TAB PO SCH ×2 (09:49→20:35)
[2018-10-07] MEDS: NEPHROCAPS PO SCH (09:50)
[2018-10-07] MEDS: GABAPENTIN 100 MG CAP PO SCH ×3 (09:50→20:33)
[2018-10-07] MEDS: PANTOprazole 40 MG TAB PO SCH (09:51)
[2018-10-07] MEDS: CLOPIDOGREL BISULFATE 75 MG TAB PO SCH (09:51)
[2018-10-07] MEDS: ATORVASTATIN 40 MG TAB PO SCH (10:02)
--- NOTE | 2018-10-07 10:36 | Surgery Progress Note ---
Date of Service October 07, 2018 Assessment & Plan (1) Status post transmetatarsal amputation of right foot: Patient is for debridement of the TMA site of the right foot on Tuesday. Most likely will end up placing a wound VAC at that time. Subjective Patient has no new complaints. There is no significant pain in the TMA site of the right foot. Physical Exam 2 Vital Signs (Past 24 Hours): Last Vital Signs Temp 36.8 C 10/07/18 07:55 Pulse 70 10/07/18 09:45 Resp 16 10/07/18 07:55 BP 97/64 L 10/07/18 09:45 Pulse Ox 91 10/07/18 07:55 Musculoskeletal: Extremities: + amputation noted (RLE TMA with necrosis laterally, The edema has decreased in the TMA site. The erythema is markedly improved. There is no drainage from the site at this point. The flap appears viable except the lateral aspect where there is an area of pallor.)
[2018-10-07] MEDS: SERTRALINE HCL 50 MG TABLET PO SCH (20:33)
[2018-10-08] MEDS: LEVOTHYROXINE SODIUM 50 MCG TABLET PO SCH (07:03)
[2018-10-08] MEDS: HYDROCODONE/ACETAMOPHEN 5/325MG TAB PO PRN ×2 (09:11→13:41)
--- NOTE | 2018-10-08 09:39 | Surgery Progress Note ---
Date of Service October 08, 2018 Assessment & Plan (1) Status post transmetatarsal amputation of right foot: Patient is scheduled for a debridement of her TMA site tomorrow with most likely an application of a wound VAC. I have discussed the risks options and benefits of the procedure with the patient. The patient understands the risks options and benefits and agrees to the procedure. Subjective Patient has no new complaints. She denies any pain in the foot at this time. She does claim that the ball the foot does give her discomfort when she applies pressure to it. Physical Exam 2 Vital Signs (Past 24 Hours): Last Vital Signs Temp 36.7 C 10/08/18 07:58 Pulse 69 10/08/18 07:58 Resp 16 10/08/18 07:58 BP 117/67 10/08/18 07:58 Pulse Ox 94 10/08/18 07:58 On exam incision is dry and clean there is a eschar present throughout the incision with slight dehiscence of the wound laterally. The medial flap is slightly erythematous today compared to yesterday. The pale areas slightly improved from previous.
[2018-10-08] MEDS: INSULIN ASPART 100 UNITS/ML 3 ML PEN SC SCH ×4 (10:21→21:54)
[2018-10-08] MEDS: ASPIRIN 81 MG ECTAB PO SCH (10:25)
[2018-10-08] MEDS: MIDODRINE HCL 10 MG TAB PO SCH ×3 (10:25→17:10)
[2018-10-08] MEDS: DOCUSATE SODIUM 100 MG CAP PO SCH ×2 (10:25→21:54)
[2018-10-08] MEDS: SEVELAMER HCL 800 MG TABLET PO SCH ×3 (10:25→17:11)
[2018-10-08] MEDS: FLUTICASONE PROPIONATE NA SPR 16 GM BTL SCH (10:26)
[2018-10-08] MEDS: ATORVASTATIN 40 MG TAB PO SCH (10:26)
[2018-10-08] MEDS: ISOSORBIDE MONO EXTENDED REL 60 MG TABCR PO SCH (10:26)
[2018-10-08] MEDS: LIDOCAINE 5% 1 PATCH TD SCH (10:26)
[2018-10-08] MEDS: METOPROLOL TARTRATE 25 MG TAB PO SCH ×2 (10:27→22:03)
[2018-10-08] MEDS: NYSTATIN POWDER 15GM BTL EXT SCH ×2 (10:27→21:54)
[2018-10-08] MEDS: NEPHROCAPS PO SCH (10:27)
[2018-10-08] MEDS: GABAPENTIN 100 MG CAP PO SCH ×3 (10:28→21:55)
[2018-10-08] MEDS: CLOPIDOGREL BISULFATE 75 MG TAB PO SCH (10:28)
[2018-10-08] MEDS: PANTOprazole 40 MG TAB PO SCH (10:29)
--- NOTE | 2018-10-08 11:06 | Pharmacy Report ---
Pharmacy Abx Dose Short Note - Date of Service October 08, 2018 - Assessment & Plan Assessment * 52 year old F receiving Vancomycin for treatment of infected TMA R foot s/p transmetatarsal amputation of right foot * Day # 4 of antimicrobial therapy * Pt to go to OR tomorrow with HD to follow * STAT random obtained today to ensure patient's level is therapeutic prior to surgery Plan Vancomycin * Random level pre-HD= 19.3 mcg/mL. This level is therapeutic. * Pt scheduled for HD on ,, * Based on pre-HD level, post-HD vancomycin dose should be 500 - 750 mg * Will give 500mg tomorrow after HD * Another pre-HD random level will be obtained Tuesday morning with AM labs Pharmacy will continue to follow and will adjust dose/frequency as necessary. Thank you.
[2018-10-08] MEDS: SERTRALINE HCL 50 MG TABLET PO SCH (21:56)
[2018-10-09] MEDS: MoRPHine SULFATE 4 MG/ML 1 ML CARP\\VIAL IV PRN ×2 (01:23→07:53)
[2018-10-09] MEDS ORDERED: Nursing to Pharmacy Communication ONE ×2 (01:36→20:36)
[2018-10-09] MEDS: LEVOTHYROXINE SODIUM 50 MCG TABLET PO SCH (05:44)
[2018-10-09] MEDS: INSULIN ASPART 100 UNITS/ML 3 ML PEN SC SCH ×4 (06:01→21:32)
[2018-10-09] MEDS ORDERED: SODIUM CHLORIDE 0.9% 1000ML 1,000 ML IV PRN (07:13)
[2018-10-09] MEDS ORDERED: EPOETIN ALFA 10,000 UNITS/ML VIAL IV ONE (07:13)
[2018-10-09 07:52] LABS: Calcium 9.5 mg/dl (8.5-10.1); Creatinine Clr Calc Pharmacy 13.8 ml/min; Est GFR (African American) 8.7; Est GFR (Non-African American) 7.5; Phosphorus 4.7 mg/dl (2.5-4.9); Potassium 5.1 mmol/L (3.5-5.1)
--- NOTE | 2018-10-09 07:55 | History & Physical Bridge Note ---
Date of Service October 09, 2018 History & Physical Bridge Note Patient for debridement of her right TMA site and possible application of wound vac. I have discussed the risks options and benefits of the procedure with the patient. The patient understands the risks options and benefits and agrees to the procedure. I have examined the patient, reviewed the History & Physical and in the interval since the performance of the History & Physical I have noted the following changes of clinical significance: no changes noted
[2018-10-09] MEDS ORDERED: HEPARIN SOD (PORCINE) 1000 UNIT/ML 10 ML VIAL IV SCH (08:00)
[2018-10-09] MEDS ORDERED: EPOETIN ALFA 14,000 UNITS in SYRINGE 0 ML IV SCH (09:00)
[2018-10-09] MEDS ORDERED: fentaNYL citrate 100 MCG/2 ML VIAL ONE (10:36)
[2018-10-09] MEDS ORDERED: MIDAZOLAM HCL 1 MG/ML 2ML VIAL ONE (10:36)
[2018-10-09] MEDS ORDERED: fentaNYL citrate 100 MCG/2 ML VIAL IV PRN (10:50)
[2018-10-09] MEDS ORDERED: ATROPINE SULFATE 0.1 MG/ML 10ML SYR IV PRN (10:50)
[2018-10-09] MEDS ORDERED: ONDANSETRON INJ 2 MG/ML 2 ML VIAL IV PRN (10:50)
[2018-10-09] MEDS ORDERED: ePHEDrine sulfate 50 MG/ML AMP IV PRN (10:50)
[2018-10-09] MEDS ORDERED: BUPIVACAINE 0.5 % 5 MG/1 ML PF 10ML VIAL ONE (10:56)
[2018-10-09] MEDS ORDERED: LIDOCAINE HCL 2% 2 ML VIAL/AMP(20MG/ML) INFIL ONE (11:41)
[2018-10-09] MEDS ORDERED: PROPOFOL IV EMULSION 10 MG/ML 20 ML VIAL IV ONE (11:41)
[2018-10-09] MEDS ORDERED: ONDANSETRON INJ 2 MG/ML 2 ML VIAL ONE (11:41)
[2018-10-09] MEDS ORDERED: BUPIVACAINE/EPINEPHRINE 0.5% MPF 1:200,000 30 ML VIAL ONE (11:54)
[2018-10-09] MEDS ORDERED: LIDOCAINE HCL 1% 20 ML VIAL ONE (11:54)
[2018-10-09] MEDS ORDERED: BACITRACIN INJ 50,000 UNIT VIAL ONE (11:54)
--- NOTE | 2018-10-09 13:09 | Post Operative Brief Note ---
Immediate Post Op Note v1 Date of Surgery October 09, 2018 Pre & Post Diagnosis Operation Date: 10/09/18 09:50 Pre-Op Diagnosis: INFECTION OF RIGHT TRANSMETITARAL AMPUTATION SITE Post-Op Diagnosis: INFECTION OF RIGHT TRANSMETITARAL AMPUTATION SITE Procedure Operation Date: 10/09/18 09:50 Actual Procedures p Debridement of Transmetatarsal Amputation Foot Right skin subcutaneous tissue and bone(Right) - Andrea Jones MD Surgeon Andrea Jones MD Community Service Worker none Estimated Blood Loss 20 Findings Consistent with Post-Op Diagnosis Anesthesia Type General Regional Complications none Disposition Accompanied Patient To Recovery: No Disposition: Recovery Room
--- NOTE | 2018-10-09 14:20 | Anesthesiology Progress Note ---
Date of Service October 09, 2018 Anesthesia Post Procedure Vital Signs Vital Signs: Temp Pulse Pulse Pulse Resp BP Pulse Ox 10/09/18 14:05 36.7 C 61 13 107/70 93 10/09/18 13:55 63 26 H 110/74 95 10/09/18 13:45 61 18 108/61 98 10/09/18 13:35 63 26 H 106/64 100 10/09/18 13:25 61 19 106/60 100 10/09/18 13:16 36.2 C L 63 16 94/59 L 100 10/09/18 09:34 36.5 C 20 L 20 123/76 98 10/09/18 07:50 36.8 C 68 19 112/74 98 10/08/18 23:02 36.5 C 61 16 122/82 95 10/08/18 22:00 61 128/79 10/08/18 20:38 60 20 117/78 96 10/08/18 15:00 36.7 C 64 20 103/68 93 Pain Intensity Right Foot: Pain Intensity: 5 Left Finger: Pain Intensity: 9 Notes Mental Status: alert / awake / arousable Patient Amnestic to Procedure: Yes Nausea / Vomiting: adequately controlled Pain: adequately controlled Airway Patency, RR, SpO2: stable & adequate BP & HR: stable & adequate Hydration State: stable & adequate Anesthetic Complications: no major complications apparent Notes: Block working well in pacu
[2018-10-09] MEDS: SEVELAMER HCL 800 MG TABLET PO SCH ×3 (14:44→18:19)
[2018-10-09] MEDS: DOCUSATE SODIUM 100 MG CAP PO SCH ×2 (14:44→21:06)
[2018-10-09] MEDS: METOPROLOL TARTRATE 25 MG TAB PO SCH ×2 (14:45→21:06)
[2018-10-09] MEDS: MIDODRINE HCL 10 MG TAB PO SCH ×3 (14:46→18:22)
[2018-10-09] MEDS: GABAPENTIN 100 MG CAP PO SCH ×3 (15:27→21:07)
[2018-10-09] MEDS: NYSTATIN POWDER 15GM BTL EXT SCH ×2 (15:27→21:07)
[2018-10-09] MEDS: FLUTICASONE PROPIONATE NA SPR 16 GM BTL SCH (15:30)
[2018-10-09] MEDS: HYDROCODONE/ACETAMOPHEN 5/325MG TAB PO PRN ×2 (16:33→21:54)
[2018-10-09] MEDS: LIDOCAINE 5% 1 PATCH TD SCH (16:34)
[2018-10-09] MEDS: PANTOprazole 40 MG TAB PO SCH (16:35)
[2018-10-09] MEDS: ATORVASTATIN 40 MG TAB PO SCH (16:36)
[2018-10-09] MEDS: CLOPIDOGREL BISULFATE 75 MG TAB PO SCH (16:37)
[2018-10-09] MEDS: NEPHROCAPS PO SCH (16:37)
[2018-10-09] MEDS: ASPIRIN 81 MG ECTAB PO SCH (16:37)
[2018-10-09] MEDS: ISOSORBIDE MONO EXTENDED REL 60 MG TABCR PO SCH (16:59)
[2018-10-09] MEDS ORDERED: VANCOMYCIN HCL 500 MG in SODIUM CHLORIDE 0.9% 250 ML IV SCH (18:00)
--- NOTE | 2018-10-09 20:38 | Nephrology Progress Note ---
Date of Service October 09, 2018 Assessment & Plan (1) ESRD (end stage renal disease) on dialysis: Patient on HD MWF. Last HD was 10/06. plan had been for HD today but d/t other emergent HD cases after review of her clinical status I opted to defer her hd to tomorrow am >> for 4hrs, QB 400 and QD 800. Target UF 2 litres. Next HD after 10/10 for 10/11 -cont midodrine tid -K 5.1 today -bp, vol status acceptable >>low iron stores noted and will give iron IV w/ HD tomorrow Subjective seen this evening; labs/care notes reviewed; pt has reasonable pain control this evening after going to OR this afternoon; not sob, not N/abd pain, no edema or chest pain/palpitations, no rash, nofocal numbness/weakness Physical Exam 2 Vital Signs (Past 24 Hours): Last Vital Signs Temp 36.7 C 10/09/18 17:10 Pulse 63 10/09/18 18:21 Resp 16 10/09/18 17:10 BP 102/64 10/09/18 18:21 Pulse Ox 92 10/09/18 17:10 Constitutional: well developed and well nourished on RA tired appearing but oriented x 3 nad Eyes: EOM intact bilaterally ENMT: Ears: no external ear abnormality Nose: no external nose abnormality Mouth: + dry oral mucous membranes Neck: no nuchal rigidity Respiratory: normal respiratory effort Auscultation: + diminished lung sounds Cardiovascular: Rate/Rhythm: regular rate and regular rhythm Extremities: + AV fistula; no edema Gastrointestinal (Abdomen): Inspection/Auscultation: normal bowel sounds Percussion/Palpation: abdomen soft; abdomen nontender Musculoskeletal: Extremities: strength 5/5 throughout R foot w/ bandage/vac Skin: no rashes, warm and dry Neurologic: stein, fluent speech, no tremor Psychiatric: A+Ox3, euthymic affect Results & Data Laboratory Results Abnormal lab results 10/09/18 10/09/18 10/09/18 Range/Units 05:56 07:07 07:07 Hgb 9.8 L (12.0-16.0) g/dL Sodium 133 L (136-145) mmol/L BUN 48 H (7-18) mg/dl Creatinine 5.97 H* (0.6-1.2) mg/dl BUN/Creatinine Ratio 8.0 L (10-20) Glucose 106 H (70-99) mg/dl POC Glucose 106 H (70-99) Iron 30 L (35-150) mcg/dl Transferrin % Sat 9 L (15-50) %
[2018-10-09] MEDS: SERTRALINE HCL 50 MG TABLET PO SCH (21:45)
[2018-10-10] MEDS: HYDROCODONE/ACETAMOPHEN 5/325MG TAB PO PRN ×4 (03:16→21:11)
[2018-10-10] MEDS: LEVOTHYROXINE SODIUM 50 MCG TABLET PO SCH (05:38)
[2018-10-10] MEDS: MoRPHine SULFATE 4 MG/ML 1 ML CARP\\VIAL IV PRN (05:38)
[2018-10-10] MEDS: GABAPENTIN 100 MG CAP PO SCH ×3 (08:18→20:45)
[2018-10-10] MEDS: MIDODRINE HCL 10 MG TAB PO SCH ×3 (08:19→15:47)
[2018-10-10] MEDS: ISOSORBIDE MONO EXTENDED REL 60 MG TABCR PO SCH (08:19)
[2018-10-10] MEDS: LIDOCAINE 5% 1 PATCH TD SCH (08:19)
[2018-10-10] MEDS: NEPHROCAPS PO SCH (08:19)
[2018-10-10] MEDS: ASPIRIN 81 MG ECTAB PO SCH (08:19)
[2018-10-10] MEDS: CLOPIDOGREL BISULFATE 75 MG TAB PO SCH (08:19)
[2018-10-10] MEDS: FLUTICASONE PROPIONATE NA SPR 16 GM BTL SCH (08:21)
[2018-10-10] MEDS: ATORVASTATIN 40 MG TAB PO SCH (08:22)
[2018-10-10] MEDS: NYSTATIN POWDER 15GM BTL EXT SCH ×3 (08:23→20:46)
[2018-10-10] MEDS: PANTOprazole 40 MG TAB PO SCH (08:23)
[2018-10-10] MEDS: DOCUSATE SODIUM 100 MG CAP PO SCH ×2 (08:23→20:46)
[2018-10-10] MEDS: METOPROLOL TARTRATE 25 MG TAB PO SCH ×2 (08:23→20:46)
[2018-10-10] MEDS: SEVELAMER HCL 800 MG TABLET PO SCH ×4 (08:24→15:47)
[2018-10-10] MEDS: INSULIN ASPART 100 UNITS/ML 3 ML PEN SC SCH ×4 (09:03→20:46)
--- NOTE | 2018-10-10 10:02 | Pharmacy Report ---
Pharmacy Abx Dose Short Note - Date of Service October 10, 2018 - Assessment & Plan Assessment 52 year old F on vancomycin IV for right foot infection s/p transmetatarsal amputation of right foot * patient was in OR yesterday for debridement of her TMA site * Day # 6 of antimicrobial therapy * h/o ESRD on HD Plan Vancomycin * Random level of 15.7 mcg/mL drawn this morning is therapeutic * Home HD schedule is ; pt did not receive HD yesterday due to being in the OR, therefore she is at HD now (planning for 4 hours) * A dose of vanco 750 mg IV has been ordered to be given after HD today * A random level will be ordered for 10/11 (pre-HD level) Pharmacy will continue to follow and will adjust dose/frequency as necessary. Thank you.
[2018-10-10] MEDS ORDERED: IRON SUCROSE 100 MG in 0.9 % SODIUM CHLORIDE 100 ML IV SCH (12:00)
[2018-10-10] MEDS ORDERED: VANCOMYCIN HCL 750 MG in SODIUM CHLORIDE 0.9% 250 ML IV SCH (14:00)
--- NOTE | 2018-10-10 16:45 | Dialysis Progress Note ---
Date of Service October 10, 2018 Assessment & Plan (1) ESRD (end stage renal disease) on dialysis: Patient on HD MWF but in hospital for more predictable txs have moved her to TRSat for now; can continue TRSat when she goes back to [facility] as well; -today for 4hrs, QB 400 and QD 800. Target UF 2 litres. Next HD for 10/12 -cont midodrine tid -K 5.1 yesterday -bp, vol status acceptable >>low iron stores noted and will load iron IV w/ HD starting 10/10 Subjective seen on dialysis at 0915; extremely tired; pain controlleld; no N; no sob, no edema; tolerating vac Physical Exam 2 Vital Signs (Past 24 Hours): Last Vital Signs Temp 36.7 C 10/10/18 15:23 Pulse 76 10/10/18 15:23 Resp 16 10/10/18 15:23 BP 123/74 10/10/18 15:23 Pulse Ox 96 10/10/18 15:23 Constitutional: well developed and well nourished on RA, sleepy but wakens fully Eyes: EOM intact bilaterally ENMT: Ears: no external ear abnormality Nose: no external nose abnormality Mouth: + dry oral mucous membranes Neck: no nuchal rigidity Respiratory: normal respiratory effort Auscultation: + diminished lung sounds Cardiovascular: Rate/Rhythm: regular rate and regular rhythm Extremities: + AV fistula; no edema Gastrointestinal (Abdomen): Inspection/Auscultation: normal bowel sounds Percussion/Palpation: abdomen soft; abdomen nontender Musculoskeletal: Extremities: strength 5/5 throughout Skin: no rashes, warm and dry sore on 2nd digit R hand; and on L great toe Neurologic: stein, fluent speech Psychiatric: A+Ox3, euthymic affect Results & Data Laboratory Results Abnormal lab results 10/09/18 Range/Units 20:43 POC Glucose 131 H (70-99)
[2018-10-10] MEDS: HEPARIN SOD (PORCINE) 1000 UNIT/ML 10 ML VIAL IV SCH ×2 (19:07→19:08)
[2018-10-10] MEDS: SERTRALINE HCL 50 MG TABLET PO SCH (20:45)
[2018-10-11] MEDS: LEVOTHYROXINE SODIUM 50 MCG TABLET PO SCH (05:59)
[2018-10-11] MEDS: HYDROCODONE/ACETAMOPHEN 5/325MG TAB PO PRN ×3 (07:42→19:45)
[2018-10-11] MEDS: SEVELAMER HCL 800 MG TABLET PO SCH ×3 (09:01→17:19)
[2018-10-11] MEDS: MIDODRINE HCL 10 MG TAB PO SCH ×3 (09:03→17:19)
[2018-10-11] MEDS: FLUTICASONE PROPIONATE NA SPR 16 GM BTL SCH (09:04)
[2018-10-11] MEDS: ASPIRIN 81 MG ECTAB PO SCH (09:04)
[2018-10-11] MEDS: DOCUSATE SODIUM 100 MG CAP PO SCH ×2 (09:04→21:21)
[2018-10-11] MEDS: PANTOprazole 40 MG TAB PO SCH (09:06)
[2018-10-11] MEDS: ATORVASTATIN 40 MG TAB PO SCH (09:06)
[2018-10-11] MEDS: LIDOCAINE 5% 1 PATCH TD SCH (09:21)
[2018-10-11] MEDS: CLOPIDOGREL BISULFATE 75 MG TAB PO SCH (09:24)
[2018-10-11] MEDS: NEPHROCAPS PO SCH (09:24)
[2018-10-11] MEDS: GABAPENTIN 100 MG CAP PO SCH ×3 (09:25→21:20)
[2018-10-11] MEDS: ISOSORBIDE MONO EXTENDED REL 60 MG TABCR PO SCH (09:28)
[2018-10-11] MEDS: INSULIN ASPART 100 UNITS/ML 3 ML PEN SC SCH ×4 (09:28→21:27)
[2018-10-11] MEDS: METOPROLOL TARTRATE 25 MG TAB PO SCH ×2 (09:29→21:27)
[2018-10-11] MEDS: MoRPHine SULFATE 4 MG/ML 1 ML CARP\\VIAL IV PRN ×2 (09:40→10:31)
[2018-10-11] MEDS: NYSTATIN POWDER 15GM BTL EXT SCH ×2 (09:41→21:20)
[2018-10-11] MEDS ORDERED: MoRPHine SULFATE 2 MG/ML CARP IV STA (10:22)
--- NOTE | 2018-10-11 12:13 | Surgery Progress Note ---
Date of Service October 11, 2018 Assessment & Plan (1) Status post transmetatarsal amputation of right foot: This patient is day 1 post debridement of her TMA site. The flap appears viable and she is undergoing wound VAC therapy. This will be changed again in 2 days. Subjective Patient has no new complaints. She is complaining of pain in the incision site at least at this point being the dressing was just changed. Physical Exam 2 Vital Signs (Past 24 Hours): Last Vital Signs Temp 36.6 C 10/11/18 06:58 Pulse 68 10/11/18 06:58 Resp 18 10/11/18 06:58 BP 112/72 10/11/18 06:58 Pulse Ox 94 10/11/18 06:58 Patient is awake oriented x3 vital signs as above. She is afebrile. The flap is viable and wound VAC was changed today. We will change him back again in 2 days.
--- NOTE | 2018-10-11 13:58 | Pharmacy Report ---
Pharmacy Abx Dose Short Note - Date of Service October 11, 2018 - Assessment & Plan Assessment 52 year old F on vancomycin IV for right foot infection s/p transmetatarsal amputation of right foot * s/p debridement of her TMA site * Day # 7 of antimicrobial therapy * h/o ESRD on HD Plan Vancomycin * Random level of 18.7 mcg/mL drawn this morning is therapeutic. * Last dose of vancomycin was given 10/10 @ 1400 (750 mg IV) * Random level was ordered for this morning in anticipation of patient having HD today, however she is being changed to [facility] HD schedule. Typically we prefer to obtain pre-HD levels on the day of HD. Due to minimal residual kidney function (urine output 0-125 mL/day), I do not feel the need to order repeat random level for 10/12. * Patient will be due for next vanco dose on 10/12 after HD Pharmacy will continue to follow and will adjust dose/frequency as necessary. Thank you.
[2018-10-11] MEDS: SERTRALINE HCL 50 MG TABLET PO SCH (21:21)
[2018-10-12] MEDS: LEVOTHYROXINE SODIUM 50 MCG TABLET PO SCH (05:36)
[2018-10-12] MEDS: HYDROCODONE/ACETAMOPHEN 5/325MG TAB PO PRN ×3 (06:36→20:13)
[2018-10-12] MEDS ORDERED: EPOETIN ALFA 10,000 UNITS/ML VIAL IV ONE (07:29)
[2018-10-12] MEDS ORDERED: SODIUM CHLORIDE 0.9% 1000ML 1,000 ML IV PRN (07:29)
[2018-10-12] MEDS: INSULIN ASPART 100 UNITS/ML 3 ML PEN SC SCH ×3 (08:27→20:22)
[2018-10-12] MEDS: GABAPENTIN 100 MG CAP PO SCH ×3 (08:33→20:21)
[2018-10-12] MEDS: DOCUSATE SODIUM 100 MG CAP PO SCH ×2 (08:34→20:16)
[2018-10-12] MEDS: MIDODRINE HCL 10 MG TAB PO SCH ×3 (08:34→21:54)
[2018-10-12] MEDS: SEVELAMER HCL 800 MG TABLET PO SCH ×3 (08:34→20:14)
[2018-10-12] MEDS: LIDOCAINE 5% 1 PATCH TD SCH (08:35)
[2018-10-12] MEDS: FLUTICASONE PROPIONATE NA SPR 16 GM BTL SCH (08:35)
[2018-10-12] MEDS: ISOSORBIDE MONO EXTENDED REL 60 MG TABCR PO SCH (08:35)
[2018-10-12] MEDS: ASPIRIN 81 MG ECTAB PO SCH (08:35)
[2018-10-12] MEDS: ATORVASTATIN 40 MG TAB PO SCH (08:36)
[2018-10-12] MEDS: METOPROLOL TARTRATE 25 MG TAB PO SCH ×2 (08:36→21:54)
[2018-10-12] MEDS: NEPHROCAPS PO SCH (08:37)
[2018-10-12] MEDS: CLOPIDOGREL BISULFATE 75 MG TAB PO SCH (08:38)
[2018-10-12] MEDS: PANTOprazole 40 MG TAB PO SCH (08:38)
[2018-10-12] MEDS ORDERED: EPOETIN ALFA 14,000 UNITS in SYRINGE 0 ML IV SCH (10:00)
[2018-10-12] MEDS ORDERED: IRON SUCROSE 100 MG in SYRINGE 0 ML IV ONE (11:00)
--- NOTE | 2018-10-12 12:48 | Surgery Progress Note ---
Date of Service October 12, 2018 Assessment & Plan (1) Status post transmetatarsal amputation of right foot: Wound VAC will be changed tomorrow. We may be able to send her back to [facility] either this or Tuesday. Subjective Patient has no new complaints. Her TMA site pain is improving Physical Exam 2 Vital Signs (Past 24 Hours): Last Vital Signs Temp 36.7 C 10/12/18 07:10 Pulse 64 10/12/18 07:10 Resp 18 10/12/18 07:10 BP 97/51 L 10/12/18 12:34 Pulse Ox 60 L 10/12/18 12:34 The wound VAC is in place. The flap appears viable. No increase in the erythema seen.
[2018-10-12] MEDS: NYSTATIN POWDER 15GM BTL EXT SCH ×2 (14:38→20:17)
--- NOTE | 2018-10-12 15:29 | Dialysis Progress Note ---
Date of Service October 12, 2018 Assessment & Plan (1) ESRD (end stage renal disease) on dialysis: Patient on HD MWF but in hospital for more predictable txs have moved her to TRSat for now; can continue TRSat when she goes back to [facility] as well; -today for 4hrs, QB 400 and QD 800. Target UF 2 litres. Next HD for 10/14 or as clinical status dictates -cont midodrine tid -K controlled -bp, vol status acceptable >>low iron stores noted and undergoing IV iron load w/ HD starting 10/10 Subjective seen on dialysis > c/o some R foot pain; pain meds have made her sleepy. denies f/c, n/v, sob; occasional cramps in foot on HD; for vac change in am; no rash Physical Exam 2 Vital Signs (Past 24 Hours): Last Vital Signs Temp 36.8 C 10/12/18 14:46 Pulse 64 10/12/18 14:46 Resp 18 10/12/18 07:10 BP 97/51 L 10/12/18 12:34 Pulse Ox 60 L 10/12/18 12:34 Constitutional: well developed and well nourished on RA, A&0 x 3 Eyes: EOM intact bilaterally ENMT: Ears: no external ear abnormality Nose: no external nose abnormality Mouth: + dry oral mucous membranes Neck: no nuchal rigidity Respiratory: normal respiratory effort Auscultation: + diminished lung sounds Cardiovascular: Rate/Rhythm: regular rate and regular rhythm Extremities: + AV fistula; no edema Gastrointestinal (Abdomen): Inspection/Auscultation: normal bowel sounds Percussion/Palpation: abdomen soft; abdomen nontender Musculoskeletal: Extremities: strength 5/5 throughout vac R TMA Skin: no rashes, warm and dry pallor +; sore covered R heel Neurologic: stein, fluent speech Psychiatric: A+Ox3, euthymic affect Results & Data Laboratory Results Abnormal lab results 10/11/18 10/11/18 10/12/18 Range/Units 17:05 20:35 08:11 POC Glucose 138 H 147 H 118 H (70-99) 10/12/18 Range/Units 12:09 POC Glucose 132 H (70-99)
[2018-10-12] MEDS ORDERED: VANCOMYCIN HCL 750 MG in SODIUM CHLORIDE 0.9% 250 ML IV SCH (20:00)
[2018-10-12] MEDS: SERTRALINE HCL 50 MG TABLET PO SCH (20:20)
[2018-10-13] MEDS: HYDROCODONE/ACETAMOPHEN 5/325MG TAB PO PRN ×4 (00:11→21:46)
[2018-10-13] MEDS: LEVOTHYROXINE SODIUM 50 MCG TABLET PO SCH (06:09)
[2018-10-13] MEDS: SEVELAMER HCL 800 MG TABLET PO SCH ×3 (08:38→17:02)
[2018-10-13] MEDS: CLOPIDOGREL BISULFATE 75 MG TAB PO SCH (08:47)
[2018-10-13] MEDS: NEPHROCAPS PO SCH (08:47)
[2018-10-13] MEDS: METOPROLOL TARTRATE 25 MG TAB PO SCH ×2 (08:47→21:55)
[2018-10-13] MEDS: ASPIRIN 81 MG ECTAB PO SCH (08:48)
[2018-10-13] MEDS: MIDODRINE HCL 10 MG TAB PO SCH ×3 (08:48→17:03)
[2018-10-13] MEDS: ISOSORBIDE MONO EXTENDED REL 60 MG TABCR PO SCH (08:48)
[2018-10-13] MEDS: DOCUSATE SODIUM 100 MG CAP PO SCH ×2 (08:48→21:55)
[2018-10-13] MEDS: ATORVASTATIN 40 MG TAB PO SCH (08:48)
[2018-10-13] MEDS: GABAPENTIN 100 MG CAP PO SCH ×3 (08:48→21:57)
[2018-10-13] MEDS: LIDOCAINE 5% 1 PATCH TD SCH (08:49)
[2018-10-13] MEDS: NYSTATIN POWDER 15GM BTL EXT SCH ×2 (08:49→21:58)
[2018-10-13] MEDS: FLUTICASONE PROPIONATE NA SPR 16 GM BTL SCH (08:57)
[2018-10-13] MEDS: PANTOprazole 40 MG TAB PO SCH (08:58)
[2018-10-13] MEDS: INSULIN ASPART 100 UNITS/ML 3 ML PEN SC SCH ×4 (09:01→22:00)
--- NOTE | 2018-10-13 14:46 | Surgery Progress Note ---
Date of Service October 13, 2018 Assessment & Plan (1) Status post transmetatarsal amputation of right foot: Most likely [facility]. We will continue antibiotics till then. Subjective Patient has no new complaints. Physical Exam 2 Vital Signs (Past 24 Hours): Last Vital Signs Temp 36.5 C 10/13/18 07:04 Pulse 62 10/13/18 07:04 Resp 18 10/13/18 07:04 BP 109/69 10/13/18 07:04 Pulse Ox 93 10/13/18 07:04 I was not there for the wound VAC changed today however the pictures show that there is granulation tissue starting to form. It appears to be viable.
[2018-10-13] MEDS: SERTRALINE HCL 50 MG TABLET PO SCH (21:53)
[2018-10-14] MEDS: LEVOTHYROXINE SODIUM 50 MCG TABLET PO SCH (06:13)
[2018-10-14] MEDS: HYDROCODONE/ACETAMOPHEN 5/325MG TAB PO PRN ×3 (06:13→21:37)
[2018-10-14] MEDS ORDERED: HEPARIN SOD (PORCINE) 1000 UNIT/ML 10 ML VIAL IV ONE (07:00)
[2018-10-14] MEDS ORDERED: EPOETIN ALFA 10,000 UNITS/ML VIAL IV ONE (07:00)
[2018-10-14] MEDS ORDERED: IRON SUCROSE 100 MG in SYRINGE 0 ML IV ONE (07:00)
[2018-10-14] MEDS ORDERED: SODIUM CHLORIDE 0.9% 1000ML 1,000 ML IV PRN (07:00)
[2018-10-14] MEDS ORDERED: EPOETIN ALFA 14,000 UNITS in SYRINGE 0 ML IV SCH (07:00)
--- NOTE | 2018-10-14 08:48 | Surgery Progress Note ---
Date of Service October 14, 2018 Assessment & Plan (1) Status post transmetatarsal amputation of right foot: Will be ready to go [facility] on Tuesday. We will continue antibiotics till then. Subjective Patient has no new complaints. Physical Exam 2 Vital Signs (Past 24 Hours): Last Vital Signs Temp 36.5 C 10/14/18 08:00 Pulse 65 10/14/18 08:00 Resp 16 10/14/18 08:00 BP 106/71 10/14/18 08:00 Pulse Ox 100 10/14/18 08:[address] Flap still appears viable
[2018-10-14] MEDS: DOCUSATE SODIUM 100 MG CAP PO SCH ×2 (08:52→20:53)
[2018-10-14] MEDS: NEPHROCAPS PO SCH (08:53)
[2018-10-14] MEDS: GABAPENTIN 100 MG CAP PO SCH ×3 (08:53→20:53)
[2018-10-14] MEDS: METOPROLOL TARTRATE 25 MG TAB PO SCH ×2 (08:53→20:53)
[2018-10-14] MEDS: ISOSORBIDE MONO EXTENDED REL 60 MG TABCR PO SCH (08:53)
[2018-10-14] MEDS: PANTOprazole 40 MG TAB PO SCH (08:53)
[2018-10-14] MEDS: ASPIRIN 81 MG ECTAB PO SCH (08:54)
[2018-10-14] MEDS: SEVELAMER HCL 800 MG TABLET PO SCH ×3 (08:54→17:39)
[2018-10-14] MEDS: FLUTICASONE PROPIONATE NA SPR 16 GM BTL SCH (08:55)
[2018-10-14] MEDS: MIDODRINE HCL 10 MG TAB PO SCH ×3 (08:55→17:39)
[2018-10-14] MEDS: NYSTATIN POWDER 15GM BTL EXT SCH ×2 (08:55→20:52)
[2018-10-14] MEDS: LIDOCAINE 5% 1 PATCH TD SCH (08:56)
[2018-10-14] MEDS: CLOPIDOGREL BISULFATE 75 MG TAB PO SCH (08:57)
[2018-10-14] MEDS: ATORVASTATIN 40 MG TAB PO SCH (08:57)
[2018-10-14] MEDS: INSULIN ASPART 100 UNITS/ML 3 ML PEN SC SCH ×4 (08:58→20:54)
--- NOTE | 2018-10-14 08:59 | Pharmacy Report ---
Pharmacy Abx Dose Short Note - Date of Service October 14, 2018 - Assessment & Plan Assessment 52 year old F on vancomycin IV for right foot infection s/p transmetatarsal amputation of right foot * s/p debridement of her TMA site * Day # 10 of antimicrobial therapy * h/o ESRD on HD Plan Vancomycin * Random vancomycin level this am therapeutic at 19.9 mcg/ml * Will redose after dialysis again today with vancomycin 750 mg x 1 to maintain peak of ~30 mcg/ml * Patient currently on dialysis schedule of [facility] - therefore will plan to reorder random level 10/17 if patient still here * Per provider notes, would like to continue with antibiotics until discharge, which will likely be Monday 10/16 Pharmacy will continue to follow and will adjust dose/frequency as necessary. Thank you.
[2018-10-14] MEDS: HEPARIN SOD (PORCINE) 1000 UNIT/ML 10 ML VIAL IV SCH ×2 (12:34→17:53)
[2018-10-14] MEDS ORDERED: VANCOMYCIN HCL 750 MG in SODIUM CHLORIDE 0.9% 250 ML IV SCH (14:00)
[2018-10-14] MEDS: SERTRALINE HCL 50 MG TABLET PO SCH (20:52)
[2018-10-15] MEDS: HYDROCODONE/ACETAMOPHEN 5/325MG TAB PO PRN ×5 (02:08→22:16)
[2018-10-15] MEDS: LEVOTHYROXINE SODIUM 50 MCG TABLET PO SCH (05:38)
[2018-10-15] MEDS: INSULIN ASPART 100 UNITS/ML 3 ML PEN SC SCH ×4 (08:33→21:51)
--- NOTE | 2018-10-15 08:34 | Surgery Progress Note ---
Date of Service October 15, 2018 Assessment & Plan (1) Status post transmetatarsal amputation of right foot: Plan is to discharge to [facility] tomorrow. Subjective Patient has no new complaints. Physical Exam 2 Vital Signs (Past 24 Hours): Last Vital Signs Temp 36.6 C 10/15/18 07:56 Pulse 63 10/15/18 07:56 Resp 16 10/15/18 07:56 BP 108/70 10/15/18 07:56 Pulse Ox 96 10/15/18 07:56 Patient has a VAC in place of her right foot which is working nicely. Flap is viable. The erythema is much improved.
[2018-10-15] MEDS: MIDODRINE HCL 10 MG TAB PO SCH ×3 (09:08→18:14)
[2018-10-15] MEDS: GABAPENTIN 100 MG CAP PO SCH ×3 (09:08→21:41)
[2018-10-15] MEDS: CLOPIDOGREL BISULFATE 75 MG TAB PO SCH (09:08)
[2018-10-15] MEDS: ATORVASTATIN 40 MG TAB PO SCH (09:08)
[2018-10-15] MEDS: ISOSORBIDE MONO EXTENDED REL 60 MG TABCR PO SCH (09:09)
[2018-10-15] MEDS: DOCUSATE SODIUM 100 MG CAP PO SCH ×2 (09:09→21:40)
[2018-10-15] MEDS: ASPIRIN 81 MG ECTAB PO SCH (09:09)
[2018-10-15] MEDS: PANTOprazole 40 MG TAB PO SCH (09:09)
[2018-10-15] MEDS: SEVELAMER HCL 800 MG TABLET PO SCH ×3 (09:10→18:14)
[2018-10-15] MEDS: FLUTICASONE PROPIONATE NA SPR 16 GM BTL SCH (09:10)
[2018-10-15] MEDS: METOPROLOL TARTRATE 25 MG TAB PO SCH ×2 (09:11→21:40)
[2018-10-15] MEDS: LIDOCAINE 5% 1 PATCH TD SCH (09:11)
[2018-10-15] MEDS: NEPHROCAPS PO SCH (09:11)
[2018-10-15] MEDS: NYSTATIN POWDER 15GM BTL EXT SCH ×2 (09:12→21:41)
[2018-10-15] MEDS: SERTRALINE HCL 50 MG TABLET PO SCH (21:41)
[2018-10-16] MEDS: LEVOTHYROXINE SODIUM 50 MCG TABLET PO SCH (06:07)
[2018-10-16] MEDS: HYDROCODONE/ACETAMOPHEN 5/325MG TAB PO PRN ×2 (06:10→10:55)
[2018-10-16] MEDS: NEPHROCAPS PO SCH (08:32)
[2018-10-16] MEDS: PANTOprazole 40 MG TAB PO SCH (08:32)
[2018-10-16] MEDS: MIDODRINE HCL 10 MG TAB PO SCH ×2 (08:32→12:52)
[2018-10-16] MEDS: CLOPIDOGREL BISULFATE 75 MG TAB PO SCH (08:32)
[2018-10-16] MEDS: SEVELAMER HCL 800 MG TABLET PO SCH ×2 (08:32→12:53)
[2018-10-16] MEDS: LIDOCAINE 5% 1 PATCH TD SCH (08:33)
[2018-10-16] MEDS: ISOSORBIDE MONO EXTENDED REL 60 MG TABCR PO SCH (08:33)
[2018-10-16] MEDS: GABAPENTIN 100 MG CAP PO SCH ×2 (08:33→12:53)
[2018-10-16] MEDS: ATORVASTATIN 40 MG TAB PO SCH (08:34)
[2018-10-16] MEDS: ASPIRIN 81 MG ECTAB PO SCH (08:34)
[2018-10-16] MEDS: DOCUSATE SODIUM 100 MG CAP PO SCH (08:34)
[2018-10-16] MEDS: METOPROLOL TARTRATE 25 MG TAB PO SCH (08:35)
[2018-10-16] MEDS: NYSTATIN POWDER 15GM BTL EXT SCH (08:35)
[2018-10-16] MEDS: FLUTICASONE PROPIONATE NA SPR 16 GM BTL SCH (08:35)
[2018-10-16] MEDS: INSULIN ASPART 100 UNITS/ML 3 ML PEN SC SCH ×2 (08:56→12:52)
[2018-10-16] MEDS: MoRPHine SULFATE 4 MG/ML 1 ML CARP\\VIAL IV PRN (09:40)
--- NOTE | 2018-10-16 11:11 | Surgery Progress Note ---
Date of Service October 16, 2018 Assessment & Plan (1) Foot infection: Pt now s/p debridement and vac placement. Doing well. Per alok Jones/c to [facility]. (2) Status post transmetatarsal amputation of right foot: Now s/p debridment. Subjective 52 yo f 2 weeks post op from RLE TMA d/t gangrene of toes, admittted with infection of wound, now post op from debridement, seen in f/u today. Pt denies new complaints. Does admit pain in foot. Constitutional: + fatigue; no fever, no chills, no sweats, no malaise and no weight loss Psychiatric: as per Subjective / HPI Physical Exam 2 Vital Signs (Past 24 Hours): Last Vital Signs Temp 36.9 C 10/16/18 08:16 Pulse 58 L 10/16/18 08:16 Resp 18 10/16/18 08:16 BP 111/73 10/16/18 08:16 Pulse Ox 97 10/16/18 08:16 Constitutional: WD/WN, vitals as above well developed, well nourished, + ill appearing, + morbidly obese, + disheveled, cooperative and comfortable Respiratory: normal respiratory effort, lungs clear to auscultation able to speak in complete sentences; does not use accessory muscles, no cough, not tachypneic and no audible wheezes Auscultation: lungs clear to auscultation bilaterally and + diminished lung sounds; no rhonchi and no wheezes Cardiovascular: RRR, no murmur, no edema Heart Sounds: no gallop and no murmur Vessels: + carotid bruit (prior CEA), femoral pulses present, brachial pulses present and radial pulses present; + abnormal peripheral pulses , + posterior tibial pulses abnormal and + dorsalis pedis pulses abnormal Extremities: + AV fistula (LUE AVF); + abnormal capillary refill Gastrointestinal (Abdomen): normal bowel sounds, soft, nontender, no hepatosplenomegaly Inspection/Auscultation: abdomen normal to inspection, normal bowel sounds and + significant pannus Percussion/Palpation: abdomen soft; abdomen nontender, no guarding and abdomen not rigid Musculoskeletal: Extremities: strength 5/5 throughout, + amputation noted ( RLE TMA with mild slough in wound, mild maceration medially, otherwise healthy flap. Bone remains exposed. Vac changed sucessfully) and + foot abnormality; + extremities abnormal to inspection and full ROM of extremities Psychiatric: Orientation: alert, oriented x 3, oriented to person, oriented to place, oriented to time and cooperative Apperance: appropriately dressed, appropriately groomed, + disheveled and appeared stated age Affect: + depressed affect, + anxious affect and + tearful affect
--- NOTE | 2018-10-17 11:13 | Discharge Summary ---
Date of Service October 24, 2018 Admission HPI Per Admitting Provider 52 yo f with multiple medical problems, including ESRD on HD, carotid stenosis s/p CEA, CAD, DMII, GERD, HTN, dyslipidemia, morbid obesity, and PAD, admitted with infection of R foot TMA. Pt had gangrenous toes of R foot and known PAD. SHe underwent revascularization at [facility] approx 6 weeks ago which included angiography and stenting of RLE. She had complete RLE TMA on 09/21/[address] Jones d/t gangrene of R toes. She was seen in office today for follow up, stating severe pain in RLE and unable to bear weight d/t pain. Denies other complaints aside from fatigue. Denies NELSON, fever, chills, chest pain, SOB, abd pain, N/V, other complaints. Underwent arterial US in office today which demonstrated patent SFA, but severe distal disease. Recommended to undergo admission to [facility] for abx d/t infection in R foot noted in office today. Discharge Data Consultations 10/05/18 15:52 Consult Case Management - Discharge Planning Routine Consult Nephrology Routine Procedures Performed Operation Date: 10/09/18 09:50 Actual Procedures p Debridement of Transmetatarsal Amputation Foot Right skin, subcutaneous tissue, and bone(Right) - Andrea Jones MD
--- NOTE | 2018-10-17 11:13 | Discharge Summary ---
Date of Service October 24, 2018 Admission HPI Per Admitting Provider 52 yo f with multiple medical problems, including ESRD on HD, carotid stenosis s/p CEA, CAD, DMII, GERD, HTN, dyslipidemia, morbid obesity, and PAD, admitted with infection of R foot TMA. Pt had gangrenous toes of R foot and known PAD. SHe underwent revascularization at [facility] approx 6 weeks ago which included angiography and stenting of RLE. She had complete RLE TMA on 09/21/[address] Jones d/t gangrene of R toes. She was seen in office today for follow up, stating severe pain in RLE and unable to bear weight d/t pain. Denies other complaints aside from fatigue. Denies NELSON, fever, chills, chest pain, SOB, abd pain, N/V, other complaints. Underwent arterial US in office today which demonstrated patent SFA, but severe distal disease. Recommended to undergo admission to [facility] for abx d/t infection in R foot noted in office today. Discharge Data Consultations 10/05/18 15:52 Consult Case Management - Discharge Planning Routine Consult Nephrology Routine Procedures Performed Operation Date: 10/09/18 09:50 Actual Procedures p Debridement of Transmetatarsal Amputation Foot Right skin, subcutaneous tissue, and bone(Right) - Andrea Jones MD
--- NOTE | 2018-10-20 10:26 | Discharge Summary ---
Date of Service October 20, 2018 Admission HPI Per Admitting Provider 52 yo f with multiple medical problems, including ESRD on HD, carotid stenosis s/p CEA, CAD, DMII, GERD, HTN, dyslipidemia, morbid obesity, and PAD, admitted with infection of R foot TMA. Pt had gangrenous toes of R foot and known PAD. SHe underwent revascularization at [facility] approx 6 weeks ago which included angiography and stenting of RLE. She had complete RLE TMA on 09/21/[address] Jones d/t gangrene of R toes. She was seen in office today for follow up, stating severe pain in RLE and unable to bear weight d/t pain. Denies other complaints aside from fatigue. Denies NELSON, fever, chills, chest pain, SOB, abd pain, N/V, other complaints. Underwent arterial US in office today which demonstrated patent SFA, but severe distal disease. Recommended to undergo admission to [facility] for abx d/t infection in R foot noted in office today. Admission Exam Per Admitting Provider Constitutional: WD/WN, vitals as above well developed, well nourished, + ill appearing, + morbidly obese, + disheveled, cooperative and comfortable Eyes: PERRL, conjunctivae normal, anicteric sclerae EOM intact bilaterally ENMT: external ear and nose normal, oropharynx normal Nose: no nasal discharge Throat: no posterior oropharynx abnormality Neck: trachea midline, no thyromegaly no tracheal deviation, no neck crepitus and neck nontender Respiratory: normal respiratory effort, lungs clear to auscultation able to speak in complete sentences; does not use accessory muscles, no cough, not tachypneic and no audible wheezes Auscultation: lungs clear to auscultation bilaterally and + diminished lung sounds; no rhonchi and no wheezes Cardiovascular: RRR, no murmur, no edema Heart Sounds: no gallop and no murmur Vessels: + carotid bruit (prior CEA), femoral pulses present, brachial pulses present and radial pulses present; + abnormal peripheral pulses, + posterior tibial pulses abnormal and + dorsalis pedis pulses abnormal Extre mities: + edema (RLE) and + AV fistula (LUE AVF); + abnormal capillary refill Chest (Breasts): Chest: normal inspection of chest Gastrointestinal (Abdomen): normal bowel sounds, soft, nontender, no hepatosplenomegaly Inspection/Auscultation: abdomen normal to inspection, normal bowel sounds and + significant pannus Percussion/Palpation: abdomen soft; abdomen nontender, no guarding and abdomen not rigid Musculoskeletal: no cyanosis or clubbing, extremities motor strength 5/5 Head/Neck/Chest: normocephalic, head atraumatic and neck supple Extremities: extremities normal to inspection, strength 5/5 throughout, + amputation noted (RLE TMA with necrosis laterally, significant edema, warmth, erythema, and tenderness. + local maceration, no significant drainage noted.) and + foot abnormality; full ROM of extremities Skin: normal turgor, + turgor decreased, + rash, + wound, + erythema, + eschar, + excoriations and + incision; no lesions and no ulcers Neurologic: moves all extremities and awake; no focal motor deficits and not confused Speech / Cognition: no expressive aphasia and no receptive aphasia Motor/Sensory: no tremor Cranial Nerves: EOM intact bilaterally and normal facial strength Gait: not gait assisted (wheelchair) Psychiatric: Orientation: alert, oriented x 3, oriented to person, oriented to place, oriented to time and cooperative Apperance: appropriately dressed, appropriately groomed, + disheveled and appeared stated age Affect: + depressed affect, + anxious affect and + tearful affect Thought Process: goal directed thought process, linear/logical thought process and clear/coherent thought process Cognition: recent memory grossly intact, remote memory grossly intact, attention grossly intact and language grossly intact Estimated Intelligence: + below average estimated intelligence Lymphatic: no lymphedema Principal Diagnosis 1. s/p debridement of RLE TMA 2. Infected RLE TMA Discharge Exam Constitutional WD/WN, vitals as above well developed, well nourished, + ill appearing, + morbidly obese, + disheveled, cooperative and comfortable Eyes PERRL, conjunctivae normal, anicteric sclerae EOM intact bilaterally ENMT external ear and nose normal, oropharynx normal Nose: no nasal discharge Throat: no posterior oropharynx abnormality Neck trachea midline, no thyromegaly no tracheal deviation, no neck crepitus and neck nontender Respiratory normal respiratory effort, lungs clear to auscultation able to speak in complete sentences; does not use accessory muscles, no cough, not tachypneic and no audible wheezes Auscultation: lungs clear to auscultation bilaterally and + diminished lung sounds; no rhonchi and no wheezes Cardiovascular RRR, no murmur, no edema Heart Sounds: no gallop and no murmur Vessels: + carotid bruit (prior CEA), femoral pulses present, brachial pulses present and radial pulses present; + abnormal peripheral pulses, + posterior tibial pulses abnormal and + dorsalis pedis pulses abnormal Extremities: + edema (RLE) and + AV fistula (LUE AVF); + abnormal capillary refill Chest (Breasts) Chest: normal inspection of chest Gastrointestinal (Abdomen) normal bowel sounds, soft, nontender, no hepatosplenomegaly Inspection/Auscultation: abdomen normal to inspection, normal bowel sounds and + significant pannus Percussion/Palpation: abdomen soft; abdomen nontender, no guarding and abdomen not rigid Musculoskeletal no cyanosis or clubbing, extremities motor strength 5/5 Head/Neck/Chest: normocephalic, head atraumatic and neck supple Extremities: strength 5/5 throughout, + amputation noted (RLE TMA with mild slough in wound, mild maceration medially, otherwise healthy flap. Bone remains exposed. Vac changed sucessfully) and + foot abnormality; + extremities abnormal to inspection and full ROM of extremities Skin normal turgor, + turgor decreased, + rash, + wound, + erythema, + eschar, + excoriations and + incision; no lesions and no ulcers Neurologic moves all extremities and awake; no focal motor deficits and not confused Speech / Cognition: no expressive aphasia and no receptive aphasia Motor/Sensory: no tremor Cranial Nerves: EOM intact bilaterally and normal facial strength Gait: not gait assisted (wheelchair) Psychiatric Orientation: alert, oriented x 3, oriented to person, oriented to place, oriented to time and cooperative Apperance: appropriately dressed, appropriately groomed, + disheveled and appeared stated age Affect: + depressed affect, + anxious affect and + tearful affect Thought Process: goal directed thought process, linear/logical thought process and clear/coherent thought process Cognition: recent memory grossly intact, remote memory grossly intact, attention grossly intact and language grossly intact Estimated Intelligence: + below average estimated intelligence Lymphatic no lymphedema Discharge Data Allergies Allergy/AdvReac Type Severity Reaction Status Date / Time adhesive Allergy Mild RASH, SORES Verified 09/19/18 01:01 No Known Drug Allergies Allergy Mild . Verified 09/19/18 01:01 latex Allergy Unknown rash Verified 09/19/18 01:01 pollen extracts Allergy Unknown WATERY EYES Verified 09/19/18 01:01 Consultations 10/05/18 15:52 Consult Case Management - Discharge Planning Routine Consult Nephrology Routine Procedures Performed Operation Date: 10/09/18 09:50 Actual Procedures p Debridement of Transmetatarsal Amputation Foot Right skin, subcutaneous tissue, and bone(Right) - Andrea Jones MD Hospital Course (1) Foot infection: Pt now s/p debridement of RLE TMA site and wound vac placement. Wound appears to be doing well. Per alok Jones/[place] to [facility]. Will see in office in 1-2 weeks. (2) Status post transmetatarsal amputation of right foot: Now s/p debridment. Total Time Total Time Spent Total Time Spent (In Minutes): 20 minutes Total Time Includes: Examination of the Patient, Discharge Planning, Medication Reconciliation and Communication With Other Providers Discharge Plan Discharge Items Patient Disposition: Transfer Inpatient Rehab Fac Reason For Visit: INFECTION OF R TRANSMETITARAL AMPUTATION SITE Discharge Diagnosis: 1. s/p debridement of RLE TMA site 2. Infected TMA Condition: Good Discharge Goals: Therapeutic intervention Activity: Per 'Additional Instructions' section Lifting: None Bathing: Keep incision dry Bathing Comment: DO NOT GET RLE WET. Exercise/Sports: Gradually increase as tolerated Driving/Machine Use Comment: No driving Weightbearing: Left weightbearing and Right weightbearing Non-emergency contact: Primary Care Provider and Surgeon Call non-emergency contact if: you have any medication questions, your pain is worsening, your temperature is above 101, your wound has increased redness and your wound has increased drainage Follow-up/Referrals: Tamy Becerra [Primary Care Provider] - Diet: Carb Consistent or DM2, Dialysis Renal and Heart Healthy Addtl Provider Instructions: 1. Wound vac to RLE at 125mmHg, with changes M/W/. 2. Will need appt with Dr Jones in office next week on a wound vac change day. Vac will be removed in office during appt and wet to dry dressing will be applied; wound vac to be replaced upon return to [facility]. Prescriptions: Continued atorvastatin 40 mg tablet 40 mg PO DAILY RF: 0 clopidogrel 75 mg tablet 75 mg PO DAILY RF: 0 pantoprazole 40 mg tablet,delayed release (DR/EC) 40 mg PO DAILY RF: 0 nitroglycerin 0.4 mg tablet, sublingual 0.4 mg Sublingual DIRECTED PRN (Reason: Chest Pain) RF: 0 sertraline 25 mg tablet 25 mg PO DAILY RF: 0 aspirin 81 mg Tablet,Delayed Release (Dr/Ec) 81 mg PO DAILY RF: 0 docusate sodium 100 mg Tablet 100 mg PO BID RF: 0 darbepoetin lillian in polysorbat [Aranesp (in polysorbate)] 60 mcg/mL Solution 60 mcg subcut WK RF: 0 fluticasone [Flonase Allergy Relief] 50 mcg/actuation [place],Suspension 1 spray INTRANASAL DAILY RF: 0 gabapentin 100 mg Capsule 100 mg PO TID RF: 0 isosorbide mononitrate 60 mg Tablet Extended Release 24 Hr 60 mg PO DAILY RF: 0 levothyroxine 50 mcg Tablet 50 mcg PO DAILY RF: 0 meclizine 25 mg Tablet 25 mg PO TID PRN (Reason: Dizziness) RF: 0 midodrine 10 mg Tablet 10 mg PO TID RF: 0 B complex with C#20-folic acid [Nephrocaps] 1 mg Capsule 1 cap PO DAILY RF: 0 nystatin 100,000 unit/gram Powder 1 applic TOPICAL BID RF: 0 sennosides-docusate sodium [Senna-S] 8.6-50 mg Tablet 2 tab PO DAILY PRN (Reason: Constipation) RF: 0 sevelamer carbonate [Renvela] 800 mg Tablet 3,200 mg PO TID RF: 0 acetaminophen 325 mg Capsule 650 mg PO Q4 PRN (Reason: Fever Or Pain) RF: 0 insulin glargine 100 unit/mL (3 mL) insulin pen 15 unit subcut HS RF: 0 hydrocodone-acetaminophen [[place]] 5-325 mg Tablet 1 tab PO Q6H RF: 0 lidocaine 5 % Adhesive Patch,Medicated 1 patch TOPICAL DAILY RF: 0 polyethylene glycol 3350 [Miralax] 17 gram Powder In Packet 17 g PO DAILY PRN (Reason: Constipation) RF: 0 lorazepam [Ativan] 0.5 mg Tablet 0.5 mg PO DAILY PRN (Reason: Anxiety) RF: 0 bisacodyl 10 mg Suppository 10 mg KS DAILY PRN (Reason: Constipation) RF: 0 magnesium hydroxide [Milk of Magnesia] 400 mg/5 mL Suspension 30 ml PO DAILY PRN (Reason: Constipation) RF: 0 ondansetron HCl [Zofran] 4 mg Tablet 4 mg PO QID PRN (Reason: Nausea) RF: 0 oxycodone 5 mg Tablet 5 mg PO Q4 PRN (Reason: pain) RF: 0 sodium phosphates [Fleet Enema] 19-7 gram/118 mL Enema 118 ml KS DAILY PRN (Reason: Constipation) RF: 0 metoprolol tartrate 25 mg tablet 12.5 mg PO BID RF: 0 Discontinued amoxicillin-pot clavulanate [Augmentin] 500-125 mg tablet 1 tab PO DAILY Qty: 5 RF: 0 Stand-Alone Forms: [facility] Orders: Discharge Order (Routine); Ordered 10/16/18 Ordered By: Cuca Helm Skilled Items Patient informed of condition?: Yes DNR: No Discharge Level of Care: Acute rehab Communicable Disease: Yes (L finger + for MRSA) Discharge Prognosis: Stable Admission Data Admit Date/Time: 10/05/18 16:03 Attending Provider: Andrea Jones Admit Provider: Andrea Jones Primary Care Provider: Tamy Becerra Other Providers: Tereza Mas ; Christian Garcia ; Shahbaz Prakash I ; Karo Kenny ; Alka Green ; Jody Berg Service: Surgical Services Other Interventions: Discharge Summary Assessment (RN) Last Done: 10/16/18 14:36 DC Date/Time DO NOT enter until pt leaves facility: 10/16/18 16:35
--- NOTE | 2018-11-21 16:05 | Operative Report ---
DATE OF OPERATION: 10/09/2018 PREOPERATIVE DIAGNOSIS: Infection right transmetatarsal amputation site. POSTOPERATIVE DIAGNOSIS: Infection right transmetatarsal amputation site. PROCEDURE: Debridement of transmetatarsal amputation site, right foot of skin, subcutaneous tissue and bone. SURGEON: Dr. Jones. ANESTHETIC: General regional. PROCEDURE INDICATIONS: The patient is a 52-year-old female with a transmetatarsal amputation, right foot. The edges became necrotic. Debridement was recommended. She understood the risks, options and benefits and agreed to have this procedure. DESCRIPTION OF PROCEDURE: The patient was taken to the operating room and placed in supine position. After general anesthesia was accomplished, the flap was debrided. This was done with scalpel dissection, scissors and blunt. The necrotic flap was removed. The interosseous muscles of the metatarsals were necrotic. These were debrided back into the mid foot. We also debrided all the subcutaneous and skin which was seen. Finally, we went back on all the metatarsal bones and resected back to good bone with the oscillating saw. Good bleeding was seen at that point. Debridement site was approximately 10 x 5 cm in size. After adequate hemostasis was obtained at the debridement site, sterile dressings were applied to the wound. The patient left the operating suite in good condition and tolerated the procedure well. I attest to the content of the Intraoperative Record and any orders documented therein. Any exception s are noted below.
== END 2018-10-16 16:35 | DRG 474 ==
LOC: 3W 16:03

== ENCOUNTER 2018-10-27 08:22 | Inpatient (IN) ==
--- NOTE | 2018-10-25 09:54 | Anesthesiology Consultation ---
Date of Service October 25, 2018 Assessment & Plan Chart Review Chart Review: Acceptable Risk for Surgery and Patient NOT seen in Pre Admission Testing Consults Requested none ASA ASA4 Proposed Anesthesia Anesthesia Type: General Anesthesia Line Insertion: Arterial line History Surgery Operation Date: 10/27/18 09:20 Proposed Procedures p Right Below Knee Amputation - Andrea Jones MD Allergies Allergy/AdvReac Type Severity Reaction Status Date / Time adhesive Allergy Mild RASH, SORES Verified 09/19/18 01:01 No Known Drug Allergies Allergy Mild . Verified 09/19/18 01:01 latex Allergy Unknown rash Verified 09/19/18 01:01 pollen extracts Allergy Unknown WATERY EYES Verified 09/19/18 01:01 Medications Home Medications Medication Instructions Recorded Confirmed Last Taken aspirin 81 mg PO DAILY 08/16/18 10/05/18 10/05/18 09:00 atorvastatin 40 mg PO DAILY 08/16/18 10/05/18 10/04/18 21:00 clopidogrel 75 mg PO DAILY 08/16/18 10/06/18 08/15/18 nitroglycerin 0.4 mg SUBLINGUAL DIRECTED PRN 08/16/18 10/06/18 Unknown pantoprazole 40 mg PO DAILY 08/16/18 10/05/18 08/15/18 sertraline 25 mg PO DAILY 08/16/18 10/05/18 10/04/18 21:00 B complex with C#20-folic acid 1 cap PO DAILY 09/19/18 10/06/18 Unknown [Nephrocaps] darbepoetin lillian in polysorbat 60 mcg SUBCUT WK 09/19/18 10/06/18 Unknown [Aranesp (in polysorbate)] docusate sodium 100 mg PO BID 09/19/18 10/05/18 10/05/18 09:00 fluticasone [Flonase Allergy 1 spray INTRANASAL DAILY 09/19/18 10/06/18 Unknown Relief] gabapentin 100 mg PO TID 09/19/18 10/05/18 Unknown isosorbide mononitrate 60 mg PO DAILY 09/19/18 10/05/18 Unknown levothyroxine 50 mcg PO DAILY 09/19/18 10/05/18 10/05/18 09:00 meclizine 25 mg PO TID PRN 09/19/18 10/06/18 Unknown midodrine 10 mg PO TID 09/19/18 10/06/18 Unknown nystatin 1 applic TOPICAL BID 09/19/18 10/06/18 Unknown sennosides-docusate sodium 2 tab PO DAILY PRN 09/19/18 10/05/18 10/05/18 09:00 [Senna-S] sevelamer carbonate [Renvela] 3,200 mg PO TID 09/19/18 10/05/18 Unknown acetaminophen 650 mg PO Q4 PRN 10/06/18 10/06/18 Unknown bisacodyl 10 mg [place] DAILY PRN 10/06/18 10/06/18 Unknown hydrocodone-acetaminophen [[place]] 1 tab PO Q6H 10/06/18 10/06/18 Unknown insulin glargine 15 unit SUBCUT HS 10/06/18 10/06/18 Unknown lidocaine 1 patch TOPICAL DAILY 10/06/18 10/06/18 Unknown lorazepam [Ativan] 0.5 mg PO DAILY PRN 10/06/18 10/06/18 Unknown magnesium hydroxide [Milk of 30 ml PO DAILY PRN 10/06/18 10/06/18 Unknown Magnesia] metoprolol tartrate 12.5 mg PO BID 10/06/18 10/06/18 Unknown ondansetron HCl [Zofran] 4 mg PO QID PRN 10/06/18 10/06/18 Unknown oxycodone 5 mg PO Q4 PRN 10/06/18 10/06/18 Unknown polyethylene glycol 3350 [Miralax] 17 g PO DAILY PRN 10/06/18 10/06/18 Unknown sodium phosphates [Fleet Enema] 118 ml [place] DAILY PRN 10/06/18 10/06/18 Unknown Past Medical History Medical History Peripheral vascular disease (Chronic) s/p R SFA angioplasty with 2 stents placed at [facility] on 08/09/18 Arthritis (Chronic) CAD (coronary artery disease) (Chronic) "s/p PCI and BMS to left circumflex 03/2016" Ischemic cardiomyopathy (Chronic) "echo 05/2016 - EF 40-45%, grade I diastolic dysfunction" Carotid stenosis (Chronic) "left ICA" ESRD (end stage renal disease) on dialysis (Chronic) MWF DM type 2 (diabetes mellitus, type 2) (Chronic) GERD (gastroesophageal reflux disease) (Chronic) Allergic rhinitis (Chronic) Morbid obesity (Chronic) Dyslipidemia (Chronic) Tobacco use disorder (Resolved) HTN (hypertension) (Chronic) C. difficile colitis (Resolved) Anemia MRSA (methicillin resistant Staphylococcus aureus) colonization Nares Past Family History Family History Other Diabetes Heart disease Past Surgical History Surgical History Hemodialysis access, AV graft (Chronic) "[facility] Dr. Jones 08/25/12" History of left-sided carotid endarterectomy (Resolved) Past Anesthesia History No Hx of Anesthesia Complications and No Family Hx of Anesthesia Complications History of PONV No Motion Sickness Screening History of Motion Sickness: No Social History Smoking Status: Former smoker tobacco type: cigarettes Hx Alcohol Use: Yes (holidays) Alcohol type: hard liquor alcohol intake frequency: holidays/special occasions only Hx Substance Use: No Exercise / Class Metabolic Activity III < 4 Walking/Shop/Light housework Testing Electrocardiogram Date: 09/19/18 Findings: + NSR @ (at 69;ST & T abnormality;prolonged QT) Echocardiogram Date: 09/19/18 EF: 30 LV Function: HK RWMA: + hypokinetic; no none Other Findings: + atrial enlargement (LA moderately dilated), + LVH (mild) and + diastolic dysfunction (grade 2) Valvular Disease: + no significant valvular disease c/w restrictive cm
--- NOTE | 2018-10-25 14:28 | PAT Medication Instructions ---
Medication Instructions Date of Service October 25, 2018 Home Medications aspirin 81 mg PO DAILY atorvastatin 40 mg PO DAILY clopidogrel 75 mg PO DAILY nitroglycerin 0.4 mg SUBLINGUAL DIRECTED PRN pantoprazole 40 mg PO DAILY sertraline 25 mg PO DAILY [Nephrocaps] 1 cap PO DAILY darbepoetin lillian [Aranesp (in polysorbate)] 60 mcg SUBCUT WK docusate sodium 100 mg PO BID fluticasone [Flonase Allergy Relief] 1 spray INTRANASAL DAILY gabapentin 100 mg PO TID isosorbide mononitrate 60 mg PO DAILY levothyroxine 50 mcg PO DAILY meclizine 25 mg PO TID PRN midodrine 10 mg PO TID nystatin 1 applic TOPICAL BID sennosides-docusate sodium 2 tab PO DAILY PRN sevelamer carbonate [Renvela] 3,200 mg PO TID acetaminophen 650 mg PO Q4 PRN bisacodyl 10 mg [place] DAILY PRN hydrocodone-acetaminophen [[place]] 1 tab PO Q6H insulin glargine 15 unit SUBCUT HS lidocaine 1 patch TOPICAL DAILY lorazepam [Ativan] 0.5 mg PO DAILY PRN magnesium hydroxide [Milk of Magnesia] 30 ml PO DAILY PRN metoprolol tartrate 12.5 mg PO BID ondansetron HCl [Zofran] 4 mg PO QID PRN oxycodone 5 mg PO Q4 PRN polyethylene glycol 3350 [Miralax] 17 g PO DAILY PRN sodium phosphates [Fleet Enema] 118 ml [place] DAILY PRN Continue as directed darbepoetin lillian [Aranesp (in polysorbate)] 60 mcg SUBCUT WK ASK your prescriber and surgeon aspirin 81 mg PO DAILY clopidogrel 75 mg PO DAILY STOP taking 24 hours before surgery nystatin 1 applic TOPICAL BID lidocaine 1 patch TOPICAL DAILY DO NOT take the morning of surgery docusate sodium 100 mg PO BID nystatin 1 applic TOPICAL BID sennosides-docusate sodium 2 tab PO DAILY PRN bisacodyl 10 mg [place] DAILY PRN magnesium hydroxide [Milk of Magnesia] 30 ml PO DAILY PRN polyethylene glycol 3350 [Miralax] 17 g PO DAILY PRN sodium phosphates [Fleet Enema] 118 ml [place] DAILY PRN Take morning of surgery (If scheduled) with a small sip of water, OTHERWISE NOTHING TO EAT OR DRINK AFTER MIDNIGHT: atorvastatin 40 mg PO DAILY nitroglycerin 0.4 mg SUBLINGUAL DIRECTED PRN (if needed) pantoprazole 40 mg PO DAILY sertraline 25 mg PO DAILY fluticasone [Flonase Allergy Relief] 1 spray INTRANASAL DAILY gabapentin 100 mg PO TID isosorbide mononitrate 60 mg PO DAILY levothyroxine 50 mcg PO DAILY meclizine 25 mg PO TID PRN (if needed) midodrine 10 mg PO TID [Nephrocaps] 1 cap PO DAILY sevelamer carbonate [Renvela] 3,200 mg PO TID acetaminophen 650 mg PO Q4 PRN (if needed, may be taken up to four hours before surgery) hydrocodone-acetaminophen [[place]] 1 tab PO Q6H (if needed, may be taken up to four hours before surgery) lorazepam [Ativan] 0.5 mg PO DAILY PRN (if needed) metoprolol tartrate 12.5 mg PO BID ondansetron HCl [Zofran] 4 mg PO QID PRN (if needed) oxycodone 5 mg PO Q4 PRN (if needed, may be taken up to four hours before surgery) Take evening before surgery (If scheduled) atorvastatin 40 mg PO DAILY nitroglycerin 0.4 mg SUBLINGUAL DIRECTED PRN (if needed) pantoprazole 40 mg PO DAILY sertraline 25 mg PO DAILY [Nephrocaps] 1 cap PO DAILY docusate sodium 100 mg PO BID fluticasone [Flonase Allergy Relief] 1 spray INTRANASAL DAILY gabapentin 100 mg PO TID isosorbide mononitrate 60 mg PO DAILY levothyroxine 50 mcg PO DAILY meclizine 25 mg PO TID PRN (if needed) midodrine 10 mg PO TID sennosides-docusate sodium 2 tab PO DAILY PRN (if needed) sevelamer carbonate [Renvela] 3,200 mg PO TID acetaminophen 650 mg PO Q4 PRN (if needed) bisacodyl 10 mg [place] DAILY PRN (if needed) hydrocodone-acetaminophen [[place]] 1 tab PO Q6H (if needed) insulin glargine 15 unit SUBCUT HS lorazepam [Ativan] 0.5 mg PO DAILY PRN (if needed) magnesium hydroxide [Milk of Magnesia] 30 ml PO DAILY PRN (if needed) metoprolol tartrate 12.5 mg PO BID ondansetron HCl [Zofran] 4 mg PO QID PRN (if needed) oxycodone 5 mg PO Q4 PRN (if needed) polyethylene glycol 3350 [Miralax] 17 g PO DAILY PRN (if needed) sodium phosphates [Fleet Enema] 118 ml [place] DAILY PRN (if needed) Other Notes *multiple medications listed as DAILY -- unknown if scheduled for AM or PM. If you have any questions please call us at [phone] or [phone] or [phone] or [phone]
--- NOTE | 2018-10-27 05:45 | History & Physical Report ---
Date of Service October 27, 2018 Assessment & Plan (1) Status post transmetatarsal amputation of right foot: Patient for a right BKA. I have discussed the risks options and benefits of the procedure with the patient. The patient understands the risks options and benefits and agrees to the procedure. History of Present Illness Chief Complaint: Necrotic right TMA Primary Care Provider: Tamy Becerra This is a 52 yo f with multiple medical problems, including ESRD on HD, carotid stenosis s/p CEA, CAD, DMII, GERD, HTN, dyslipidemia, morbid obesity, and PAD, admitted with infection of R foot TMA. Pt had gangrenous toes of R foot and known PAD. She underwent revascularization at [facility] which included angiography and stenting of RLE. She had complete RLE TMA on 09/21/18 d/t gangrene of R toes. She underwent debridement of her TMA. She underwent an arterial US which demonstrated patent SFA, but severe distal disease. She had further necrosis of her tma site and now is facing a BKA . Denies other complaints aside from fatigue. Denies NELSON, fever, chills, chest pain, SOB, abd pain, N/V, other complaints. Allergies Allergy/AdvReac Type Severity Reaction Status Date / Time adhesive Allergy Mild RASH, SORES Verified 10/25/18 13:09 latex Allergy Mild rash Verified 10/25/18 13:09 No Known Drug Allergies Allergy Mild . Verified 10/25/18 13:09 pollen extracts Allergy Mild WATERY EYES Verified 10/25/18 13:09 Home Medications Home Medications Medication Instructions Recorded Confirmed Type aspirin 81 mg PO QAM 08/16/18 10/25/18 History atorvastatin 40 mg PO QAM 08/16/18 10/25/18 History nitroglycerin 0.4 mg SUBLINGUAL DIRECTED PRN 08/16/18 10/25/18 History pantoprazole 40 mg PO QAM 08/16/18 10/25/18 History sertraline 25 mg PO QAM 08/16/18 10/25/18 History fluticasone [Flonase Allergy 1 spray INTRANASAL DAILY 09/19/18 10/25/18 History Relief] gabapentin 100 mg PO TID 09/19/18 10/25/18 History isosorbide mononitrate 60 mg PO QAM 09/19/18 10/25/18 History levothyroxine 50 mcg PO QAM 09/19/18 10/25/18 History meclizine 25 mg PO TID PRN 09/19/18 10/25/18 History midodrine 10 mg PO TID 09/19/18 10/25/18 History nystatin 1 applic TOPICAL BID 09/19/18 10/25/18 History sennosides-docusate sodium 2 tab PO DAILY PRN 09/19/18 10/25/18 History [Senna-S] sevelamer carbonate [Renvela] 4 tab PO TID 09/19/18 10/25/18 History Fleet Enema 118 ml [place] DAILY PRN 10/06/18 10/25/18 History bisacodyl 10 mg [place] DAILY PRN 10/06/18 10/25/18 History insulin glargine 15 unit SUBCUT HS 10/06/18 10/25/18 History lorazepam [Ativan] 0.5 mg PO DAILY PRN 10/06/18 10/25/18 History magnesium hydroxide [Milk of 30 ml PO DAILY PRN 10/06/18 10/25/18 History Magnesia] metoprolol tartrate 12.5 mg PO BID 10/06/18 10/25/18 History ondansetron HCl [Zofran] 4 mg PO QID PRN 10/06/18 10/25/18 History polyethylene glycol 3350 [Miralax] 17 g PO DAILY PRN 10/06/18 10/25/18 History Amoxicillin Clavulanate 1 tab PO DAILY 10/25/18 10/25/18 History B complex with C#20-folic acid 1 cap PO DAILY 10/25/18 10/25/18 History [Nephrocaps] acetaminophen 500 mg PO Q4H PRN 10/25/18 10/25/18 History darbepoetin lillian in polysorbat 1 dose SUBCUT WK 10/25/18 10/25/18 History [Aranesp (in polysorbate)] docusate sodium 100 mg PO BID PRN 10/25/18 10/25/18 History hydrocodone-acetaminophen 1 tab PO Q6H PRN 10/25/18 10/25/18 History insulin glargine [Lantus U-100 15 unit SUBCUT QPM 10/25/18 10/25/18 History Insulin] lidocaine [Lidoderm] 1 patch TOPICAL QAM 10/25/18 10/25/18 History oxycodone 1 - 2 tab PO Q4H PRN 10/25/18 10/25/18 History Past Med/Surg History Medical History Peripheral vascular disease (Chronic) s/p R SFA angioplasty with 2 stents placed at [facility] on 08/09/18 Arthritis (Chronic) CAD (coronary artery disease) (Chronic) "s/p PCI and BMS to left circumflex 03/2016" Ischemic cardiomyopathy (Chronic) "echo 05/2016 - EF 40-45%, grade I diastolic dysfunction" Carotid stenosis (Chronic) "left ICA" ESRD (end stage renal disease) on dialysis (Chronic) MWF DM type 2 (diabetes mellitus, type 2) (Chronic) GERD (gastroesophageal reflux disease) (Chronic) Allergic rhinitis (Chronic) Morbid obesity (Chronic) Dyslipidemia (Chronic) Tobacco use disorder (Resolved) HTN (hypertension) (Chronic) C. difficile colitis (Resolved) Anemia Ischemia SEVERE RLE GANGRENE MRSA (methicillin resistant Staphylococcus aureus) colonization Nares Peripheral neuropathy Surgical History Hemodialysis access, AV graft (Chronic) "[facility] Dr. Jones 08/25/12" History of left-sided carotid endarterectomy (Resolved) H/O vascular surgery STENTING OF VESSELS ZELALEM/GLENNY History of amputation RT FOOT TRANSMETARSAL AMPUTATION S/P debridement WOUND VAC RLE Family History Other Diabetes Heart disease Social History Preferred Language: Turkmen Beliefs That Will Affect Care: None marital status: / Current Living Situation: Rehab Feels Safe at Home: Yes Smoking Status: Former smoker Hx Alcohol Use: Yes (holidays) Hx Substance Use: No Review of Systems Constitutional: + fatigue; no fever, no chills, no sweats, no malaise and no weight loss Eyes: no blind spots and no problem reported Ear, Nose, Mouth, Throat: no hearing loss and no sore throat Respiratory: no cough, no dyspnea, no dyspnea on exertion and no hemoptysis Cardiovascular: no chest pain, no palpitations, no syncope, no claudication and no problem reported Gastrointestinal: no abdominal pain, no early satiety, no nausea, no vomiting, no cramping, no change in bowel habits, no diarrhea/loose stools and no blood in stools Musculoskeletal: no back pain, no swelling and no muscle weakness pain R foot Integumentary: no rash, no non-healing lesions, no skin ulcer, no wounds and no erythema Neurologic: no localized weakness, no generalized weakness, no paralysis, no loss of sensation, no tingling, no numbness, no paresthesia, no seizure-like activity, no syncope, no headache(s) and no confusion Psychiatric: as per Subjective / HPI Hematologic / Lymphatic: no easy bleeding, no easy bruising, no coagulopathy, no night sweats and no unexplained weight loss Physical Exam Vital Signs (Past 24 Hours): Constitutional: WD/WN, vitals as above well developed, well nourished, + ill appearing, + morbidly obese, + disheveled, cooperative and comfortable Eyes: PERRL, conjunctivae normal, anicteric sclerae EOM intact bilaterally ENMT: external ear and nose normal, oropharynx normal Nose: no nasal discharge Throat: no posterior oropharynx abnormality Neck: trachea midline, no thyromegaly no tracheal deviation, no neck crepitus and neck nontender Respiratory: normal respiratory effort, lungs clear to auscultation able to speak in complete sentences; does not use accessory muscles, no cough, not tachypneic and no audible wheezes Auscultation: lungs clear to auscultation bilaterally and + diminished lung sounds; no rhonchi and no wheezes Cardiovascular: RRR, no murmur, no edema Heart Sounds: no gallop and no murmur Vessels: + carotid bruit (prior CEA), femoral pulses present, brachial pulses present and radial pulses present; + abnormal peripheral pulses, + posterior tibial pulses abnormal and + dorsalis pedis pulses abnormal Extremities: + edema (RLE) and + AV fistula (LUE AVF); + abnormal capillary refill Chest (Breasts): Chest: normal inspection of chest Gastrointestinal (Abdomen): normal bowel sounds, soft, nontender, no hepatosplenomegaly Inspection/Auscultation: abdomen normal to inspection, normal bowel sounds and + significant pannus Percussion/Palpation: abdomen soft; abdomen nontender, no guarding and abdomen not rigid Musculoskeletal: no cyanosis or clubbing, extremities motor strength 5/5 Head/Neck/Chest: normocephalic, head atraumatic and neck supple Extremities: extremities normal to inspection, strength 5/5 throughout, + amputation noted (RLE TMA with necrosis along the whole incison as well as the base, tenderness is present. + local maceration, no significant drainage noted.) and + foot abnormality; full ROM of extremities Skin: normal turgor, + turgor decreased, + rash, + wound, + erythema, + eschar, + excoriations and + incision; no lesions and no ulcers Neurologic: moves all extremities and awake; no focal motor deficits and not confused Speech / Cognition: no expressive aphasia and no receptive aphasia Motor/Sensory: no tremor Cranial Nerves: EOM intact bilaterally and normal facial strength Gait: not gait assisted (wheelchair) Psychiatric: Orientation: alert, oriented x 3, oriented to person, oriented to place, oriented to time and cooperative Apperance: appropriately dressed, appropriately groomed, + disheveled and appeared stated age Affect: + depressed affect, + anxious affect and + tearful affect Thought Process: goal directed thought process, linear/logical thought process and clear/coherent thought process Cognition: recent memory grossly intact, remote memory grossly intact, attention grossly intact and language grossly intact Estimated Intelligence: + below average estimated intelligence Lymphatic: no lymphedema
[~2018-10-27 08:22] MED LIST changes: -ACET-1256 PO; -ASPI-320 PO; -ATV5 PO; +CEFAZOLIN 1000MG 1,000 MG/7.5 ML SYR IV SCH; -CLOP1TAB15 PO; -DEXT30TA7 PO; -DICY10CA55 PO; -DOCU100C31 PO; -DOXY100C76 PO; -INSDGIPEN SQ; -ISOS-11 PO; -LPT40 PO; +LR 15ML/HR IV SCH; -NTRGSL/4 UT; -PANT40TA PO; +PATIENT'S HEIGHT AND/OR WEIGHT NEEDED SCH; -SERT-234 PO; -SEVE800T7 PO; +SODIUM CHLORIDE 0.9% 1000ML IV SCH; -TPRSR/50 PO
[2018-10-27] MEDS ORDERED: PROPOFOL IV EMULSION 10 MG/ML 20 ML VIAL IV ONE (08:31)
[2018-10-27] MEDS ORDERED: LIDOCAINE HCL 2% 2 ML VIAL/AMP(20MG/ML) INFIL ONE (08:31)
[2018-10-27] MEDS ORDERED: ONDANSETRON INJ 2 MG/ML 2 ML VIAL ONE (08:31)
[2018-10-27] MEDS ORDERED: fentaNYL citrate 100 MCG/2 ML VIAL ONE (08:32)
[2018-10-27] MEDS ORDERED: ROPIVACAINE 0.5% 5 MG/ML 30 ML VIAL ONE (08:38)
[2018-10-27 09:26] LABS: INR 1.4 (0.9-1.1); Partial Thromboplastin Ratio 1.2; Partial Thromboplastin Time 32.1 Seconds (21.0-31.0); Prothrombin Time 14.2 Seconds (9.0-12.0)
[2018-10-27 09:33] LABS: BUN Creatinine Ratio 6.1 (10-20); Blood Urea Nitrogen 25 mg/dl (7-18); Calcium 9.2 mg/dl (8.5-10.1); Carbon Dioxide 29 mmol/L (21-32); Chloride 94 mmol/L (98-107); Est GFR (African American) 13.8; Est GFR (Non-African American) 11.9; Glucose 89 mg/dl (70-99); Potassium 4.6 mmol/L (3.5-5.1); Sodium 130 mmol/L (136-145)
--- NOTE | 2018-10-27 09:33 | History & Physical Bridge Note ---
Date of Service October 27, 2018 History & Physical Bridge Note I have examined the patient, reviewed the History & Physical and in the interval since the performance of the History & Physical I have noted the following changes of clinical significance: no changes noted
[2018-10-27 10:13] LABS: Basophils # (auto) 0.03 K/uL (0-0.2); Basophils % (auto) 0.4 %; Eosinophils # (auto) 0.12 K/uL (0-0.5); Eosinophils % (auto) 1.4 %; Hematocrit (blood only) 30.3 % (37-47); Hemoglobin 8.9 g/dL (12.0-16.0); Immature Granulocytes # (auto) 0.02 K/uL (0.00-0.02); Immature Granulocytes % (auto) 0.2 %; Lymphocytes # (auto) 1.36 K/uL (1.2-3.4); Lymphocytes % (auto) 16.1 %; Mean Corpuscular Volume 92.7 fL (80-100); Mean Platelet Volume 9.9 fL (7.4-10.4); Monocytes # (auto) 0.98 K/uL (0.11-0.59); Monocytes % (auto) 11.6 %; Neutrophils # (auto) 5.93 K/uL (1.4-6.5); Neutrophils % (auto) 70.3 %; Nucleated RBC # (auto) 0.02 K/uL (0-0); Nucleated RBC % (auto) 0.2 %; Platelet Count 291 K/uL (130-400); RDW Coefficient of Variation 19.4 % (11.5-14.5); RDW Standard Deviation 63.4 fL (36.4-46.3); Red Blood Count 3.27 M/uL (4.2-5.4); White Blood Count 8.44 K/uL (4.8-10.8)
[2018-10-27 10:17] LABS: Mean Corpuscular Hgb Conc 29.4 g/dL (32-36)
[2018-10-27 10:33] LABS: Pregnancy Test, Serum Negative (Negative)
[2018-10-27 10:37] LABS: Anisocytosis Present; Hypochromasia Present; Polychromasia 1+
[2018-10-27] MEDS ORDERED: ATROPINE SULFATE 0.1 MG/ML 10ML SYR IV PRN (10:37)
[2018-10-27] MEDS ORDERED: ePHEDrine sulfate 50 MG/ML AMP IV PRN (10:37)
[2018-10-27] MEDS ORDERED: ONDANSETRON INJ 2 MG/ML 2 ML VIAL IV PRN (10:37)
--- NOTE | 2018-10-27 10:42 | XRay Report ---
XR chest 1V portable CLINICAL HISTORY: 52 years-old Female presenting with PRE OP . TECHNIQUE: Portable upright AP view of the chest was obtained. COMPARISON: . FINDINGS: Atherosclerosis of the aortic arch. Cardiac silhouette enlarged. Mild pulmonary vascular prominence. No focal opacity. No large effusion or pneumothorax. Degenerative changes of the thoracic spine. Uppe r abdomen normal. IMPRESSION: 1. Cardiomegaly with mild volume overload. No other convincing evidence of acute cardiopulmonary dis ease. Electronically signed by: Chava Streeter M.D. 10/27/2018 10:41 AM
[2018-10-27] MEDS ORDERED: CEFAZOLIN 2000MG 2,000 MG/15 ML SYR IV SCH (11:45)
--- NOTE | 2018-10-27 12:47 | Post Operative Brief Note ---
Immediate Post Op Note v1 Date of Surgery October 27, 2018 Pre & Post Diagnosis Operation Date: 10/27/18 09:20 Pre-Op Diagnosis: Necrotic Right Foot Post-Op Diagnosis: Necrotic Right Foot Procedure Operation Date: 10/27/18 09:20 Actual Procedures p Right Below Knee Amputation(Right) - Andrea Jones MD Surgeon Andrea Jones MD [id number] Developer MD Hayes Cherry,PAC Estimated Blood Loss 150 Findings Consistent with Post-Op Diagnosis Anesthesia Type General Complications none Disposition Accompanied Patient To Recovery: No Disposition: Recovery Room
[2018-10-27] MEDS ORDERED: CEFAZOLIN 250 MG/ML 1 GM VIAL ONE (13:20)
[2018-10-27] MEDS: fentaNYL citrate 100 MCG/2 ML VIAL IV PRN ×4 (14:04→14:19)
--- NOTE | 2018-10-27 14:34 | Anesthesiology Progress Note ---
Date of Service October 27, 2018 Anesthesia Post Procedure Vital Signs Vital Signs: Temp Pulse Pulse Resp BP Pulse Ox 10/27/18 14:25 36.9 C 66 16 117/62 97 10/27/18 14:15 66 16 108/66 97 10/27/18 14:05 66 16 107/66 100 10/27/18 13:55 66 16 110/63 10/27/18 13:45 65 16 111/75 100 10/27/18 13:36 37.7 C H 65 16 108/61 100 10/27/18 09:17 36.8 C 67 20 97/44 L 97 Notes Mental Status: alert / awake / arousable and participated in evaluation Patient Amnestic to Procedure: Yes Nausea / Vomiting: adequately controlled Pain: adequately controlled Airway Patency, RR, SpO2: stable & adequate BP & HR: stable & adequate Hydration State: stable & adequate Anesthetic Complications: no major complications apparent and Pt Satisfied with anesthetic care Notes: block is functioning well
[2018-10-27] MEDS ORDERED: GLUCAGON HCL PRN (14:49)
[2018-10-27] MEDS ORDERED: ONDANSETRON 4 MG TAB PO PRN (14:49)
[2018-10-27] MEDS ORDERED: NITROGLYCERIN SL 0.4 MG/TAB TAB SL PRN (14:49)
[2018-10-27] MEDS ORDERED: MECLIZINE HCL 25 MG TAB PO PRN (14:49)
[2018-10-27] MEDS ORDERED: POLYETHYLENE (MIRALAX) 17 GM PACK PO PRN (14:49)
[2018-10-27] MEDS ORDERED: ACETAMINOPHEN 500 MG TAB PO PRN (14:49)
[2018-10-27] MEDS ORDERED: LORazepam 0.5 MG TAB PO PRN (14:49)
[2018-10-27] MEDS ORDERED: GLUCOSE 40% GEL 15 GM TUBE PO PRN ×2 (14:49→15:30)
[2018-10-27] MEDS ORDERED: BISACODYL 10 MG SUPP PR PRN (14:49)
[2018-10-27] MEDS ORDERED: DOCUSATE SODIUM/SENNA 50/8.6MG TAB PO PRN (14:49)
[2018-10-27] MEDS ORDERED: DOCUSATE SODIUM 100 MG CAP PO PRN (14:49)
[2018-10-27] MEDS ORDERED: SOD PHOSPHATE/SOD BIPHOSPHATE ENEMA 132 ML BTL PR PRN (14:49)
[2018-10-27] MEDS ORDERED: MAGNESIUM HYDROXIDE SUSP 30 ML UDC PO PRN (14:49)
[2018-10-27] MEDS ORDERED: IRON SUCROSE 100 MG SCH (14:49)
[2018-10-27] MEDS ORDERED: DEXTROSE 50% 50 ML SYRINGE IV PRN (15:30)
[2018-10-27] MEDS ORDERED: GLUCOSE 10 TABS/TUBE PO PRN (15:30)
[2018-10-27] MEDS ORDERED: GLUCAGON FOR INJ 1 MG VIAL IM PRN (15:30)
[2018-10-27] MEDS ORDERED: SODIUM CHLORIDE 0.9% 500 ML IV SCH (15:30)
[2018-10-27] MEDS ORDERED: CARBOHYDRATES FOR HYPOGLYCEMIA PO PRN (15:30)
[2018-10-27] MEDS ORDERED: HEPARIN SOD (PORCINE) 1000 UNIT/ML 10 ML VIAL IV PRN (15:34)
[2018-10-27 15:39] LABS: Basophils # (auto) 0.04 K/uL (0-0.2); Basophils % (auto) 0.5 %; Eosinophils # (auto) 0.07 K/uL (0-0.5); Eosinophils % (auto) 0.9 %; Hematocrit (blood only) 29.1 % (37-47); Hemoglobin 8.5 g/dL (12.0-16.0); Immature Granulocytes # (auto) 0.08 K/uL (0.00-0.02); Lymphocytes # (auto) 1.89 K/uL (1.2-3.4); Lymphocytes % (auto) 23.4 %; Mean Corpuscular Hgb Conc 29.2 g/dL (32-36); Mean Corpuscular Volume 89.8 fL (80-100); Mean Platelet Volume 9.9 fL (7.4-10.4); Monocytes # (auto) 1.04 K/uL (0.11-0.59); Monocytes % (auto) 12.9 %; Neutrophils # (auto) 4.95 K/uL (1.4-6.5); Neutrophils % (auto) 61.3 %; Platelet Count 317 K/uL (130-400); RDW Coefficient of Variation 19.3 % (11.5-14.5); RDW Standard Deviation 61.9 fL (36.4-46.3); Red Blood Count 3.24 M/uL (4.2-5.4); White Blood Count 8.07 K/uL (4.8-10.8)
[2018-10-27 15:53] LABS: BUN Creatinine Ratio 6.4 (10-20); Calcium 9.2 mg/dl (8.5-10.1); Creatinine Clr Calc Pharmacy 19.3 ml/min; Est GFR (African American) 13.5; Est GFR (Non-African American) 11.6; Potassium 4.7 mmol/L (3.5-5.1)
[2018-10-27 16:03] LABS: Hypochromasia Present
[2018-10-27] MEDS: MoRPHine SULFATE 4 MG/ML 1 ML CARP\\VIAL IV PRN (16:48)
[2018-10-27] MEDS: GABAPENTIN 100 MG CAP PO SCH ×2 (16:49→21:18)
[2018-10-27] MEDS: MIDODRINE HCL 10 MG TAB PO SCH (18:06)
[2018-10-27] MEDS: SEVELAMER HCL 800 MG TABLET PO SCH (18:06)
[2018-10-27] MEDS: AMOXICILLIN/CLAVULANATE 500 MG TAB PO SCH (18:20)
[2018-10-27] MEDS ORDERED: LANTUS PER UNIT CHARGE SQ SCH (21:00)
[2018-10-27] MEDS ORDERED: INSULIN GLARGINE SOLOSTAR 100 UNITS/ML 3 ML PEN SQ SCH (21:00)
[2018-10-27] MEDS: METOPROLOL TARTRATE 25 MG TAB PO SCH (21:15)
[2018-10-27] MEDS: INSULIN GLARGINE SOLOSTAR 100 UNITS/ML 3 ML PEN SC SCH (21:15)
[2018-10-27] MEDS: NYSTATIN POWDER 15GM BTL EXT SCH (21:17)
--- NOTE | 2018-10-27 22:51 | Operative Report ---
DATE OF OPERATION: 10/27/2018 PREOPERATIVE DIAGNOSIS: Nonhealing right transmetatarsal amputation. POSTOPERATIVE DIAGNOSIS: Nonhealing right transmetatarsal amputation. PROCEDURE: Right below knee amputation. SURGEON: Andrea Jones MD CLOUD ADMINISTRATOR: Isable Malin MD; Cuca Helm PA-C ANESTHESIA: General anesthesia. ESTIMATED BLOOD LOSS: 150 mL COMPLICATIONS: None. INDICATIONS: Mrs. Tamy Gilbert is a 52-year-old woman with a history of a right TMA. This was complicated by poor wound healing. She did not have any further options for debridement and was recommended to undergo below-knee amputation. Risks, benefits, and alternatives were discussed with the patient and she consented to the procedure. DESCRIPTION OF PROCEDURE: The patient was taken to the operating room and placed in the supine position. Her right leg was prepped and draped in the usual sterile fashion. General anesthesia was induced by our anesthesia colleagues. A safety timeout was performed to identify the patient, procedure, and sidedness were correctly identified. A horizontal skin incision was made 12 cm distal to the tibial tuberosity. This was extended longitudinally towards the ankle. A Bovie electrocautery was used to divide subcutaneous tissues and fascia. The muscles of the anterior and lateral compartments were divided with Bovie electrocautery. The anterior tibial artery and accompanying structures were identified and ligated. Periosteal elevator was used to clear the periosteum of the tibia. The tibia was transected 2 cm proximal to the skin incision using a reciprocating saw. The fibula was identified and its periosteum was stripped. A reciprocating saw was again used to divide the fibula approximately 1 cm more proximal than tibial transection. The amputation was then completed with an amputation knife. Manual pressure was held over the posterior muscle flap. The areas of bleeding were controlled with hemostat followed by 2-0 silk ties. Nerve was identified and transected. The anterior aspect of the tibia was then bevelled. The wound was irrigated with a liter of normal saline. Small areas of bleeding were controlled with Bovie electrocautery. Fascia was then approximated with 2-0 interrupted Vicryl. A second layer of 3-0 Vicryl sutures were then placed. At the medial and lateral edges of the wound, there was some difficulty in placing sutures due to the significant adipose tissue in this area. The 2-0 nylon sutures were used to close the medial and lateral aspect of the wound. The skin through the remainder of the incision was reapproximated with petra. A sterile dressing was applied. The patient was awakened from anesthesia and transferred to the recovery area in stable condition. She tolerated the procedure well. There were no immediate complications. Dr. Andrea Jones was present for all critical elements of the case. I attest to the content of the Intraoperative Record and any orders documented therein. Any exception s are noted below.
[2018-10-28] MEDS: HYDROCODONE/ACETAMOPHEN 5/325MG TAB PO PRN ×3 (00:44→21:48)
[2018-10-28] MEDS: MoRPHine SULFATE 4 MG/ML 1 ML CARP\\VIAL IV PRN (03:54)
[2018-10-28] MEDS ORDERED: HEPARIN SOD (PORCINE) 1000 UNIT/ML 10 ML VIAL IV PRN (06:00)
[2018-10-28] MEDS: IRON SUCROSE 100 MG in 0.9 % SODIUM CHLORIDE 100 ML IV SCH ×2 (06:19→19:09)
[2018-10-28] MEDS: LEVOTHYROXINE SODIUM 50 MCG TABLET PO SCH (06:21)
[2018-10-28] MEDS: MIDODRINE HCL 10 MG TAB PO SCH ×3 (07:08→17:13)
[2018-10-28 07:16] LABS: Hematocrit (blood only) 29.9 % (37-47); Hemoglobin 8.6 g/dL (12.0-16.0); Mean Corpuscular Hgb Conc 28.8 g/dL (32-36); Mean Corpuscular Volume 91.2 fL (80-100); Mean Platelet Volume 10.3 fL (7.4-10.4); Platelet Count 317 K/uL (130-400); RDW Coefficient of Variation 19.5 % (11.5-14.5); Red Blood Count 3.28 M/uL (4.2-5.4); White Blood Count 8.49 K/uL (4.8-10.8)
[2018-10-28 07:32] LABS: Anisocytosis Present; Basophils # (auto) 0.02 K/uL (0-0.2); Basophils % (auto) 0.2 %; Eosinophils # (auto) 0.09 K/uL (0-0.5); Eosinophils % (auto) 1.1 %; Hypochromasia Present; Immature Granulocytes # (auto) 0.02 K/uL (0.00-0.02); Immature Granulocytes % (auto) 0.2 %; Lymphocytes # (auto) 1.12 K/uL (1.2-3.4); Lymphocytes % (auto) 13.2 %; Monocytes # (auto) 1.13 K/uL (0.11-0.59); Monocytes % (auto) 13.3 %; Neutrophils # (auto) 6.11 K/uL (1.4-6.5)
[2018-10-28 07:48] LABS: BUN Creatinine Ratio 6.4 (10-20); Calcium 9.3 mg/dl (8.5-10.1); Creatinine Clr Calc Pharmacy 16.4 ml/min; Est GFR (African American) 11.1; Est GFR (Non-African American) 9.5; Potassium 4.8 mmol/L (3.5-5.1)
--- NOTE | 2018-10-28 08:49 | Surgery Progress Note ---
Date of Service October 28, 2018 Assessment & Plan (1) Amput below knee, unilat: Doing well post op Will start PT/OT Most likely ready for rehab tuesday. Subjective Complains of mild stump pain Physical Exam Vital Signs (Past 24 Hours): Last Vital Signs Temp 37 C 10/28/18 07:57 Pulse 82 10/28/18 07:57 Resp 16 10/28/18 07:57 BP 125/69 10/28/18 07:57 Pulse Ox 100 10/28/18 07:57 Awake and alert Stump dressing intact. No tenderness out of the ordinary post op tenderness
[2018-10-28] MEDS: GABAPENTIN 100 MG CAP PO SCH ×3 (08:52→21:31)
[2018-10-28] MEDS: SEVELAMER HCL 800 MG TABLET PO SCH ×3 (08:52→21:21)
[2018-10-28] MEDS: ISOSORBIDE MONO EXTENDED REL 60 MG TABCR PO SCH (08:52)
[2018-10-28] MEDS: SERTRALINE HCL 50 MG TABLET PO SCH ×2 (08:53→09:02)
[2018-10-28] MEDS: PANTOprazole 40 MG TAB PO SCH (08:53)
[2018-10-28] MEDS: ASPIRIN 81 MG ECTAB PO SCH (08:54)
[2018-10-28] MEDS: ATORVASTATIN 40 MG TAB PO SCH (08:54)
[2018-10-28] MEDS: NEPHROCAPS PO SCH (08:54)
[2018-10-28] MEDS: METOPROLOL TARTRATE 25 MG TAB PO SCH ×2 (08:54→21:30)
[2018-10-28] MEDS: CLOPIDOGREL BISULFATE 75 MG TAB PO SCH (08:54)
[2018-10-28] MEDS: FLUTICASONE PROPIONATE NA SPR 16 GM BTL SCH (08:56)
[2018-10-28] MEDS: HEPARIN SOD 5,000 UNIT/0.5 ML VIAL SQ SCH ×2 (08:57→21:23)
[2018-10-28] MEDS: NYSTATIN POWDER 15GM BTL EXT SCH ×2 (09:00→21:31)
[2018-10-28] MEDS ORDERED: AMOXICILLIN/CLAVULANATE 500 MG TAB PO SCH (09:00)
[2018-10-28] MEDS: LIDOCAINE 5% 1 PATCH TD SCH (09:00)
[2018-10-28] MEDS ORDERED: EPOETIN ALFA 10,000 UNITS/ML VIAL IV SCH (10:45)
--- NOTE | 2018-10-28 11:54 | Nephrology Consultation ---
Date of Consultation October 28, 2018 Assessment & Plan (1) ESRD (end stage renal disease) on dialysis: Patient with ESRD on dialysis Tuesday of recent while at rehab. She was previously Tuesday. Her last dialysis was on . We will dialyze her today for 4 hours, blood flow 400, dialysate flow 600 and target UF of 2.5 L. Will use a 3K bath. (2) Anemia associated with chronic renal failure: Hemoglobin of 8.6 today. We will give her Epogen 10,000 units with dialysis (3) Hypotension: We will continue midodrine 10 mg 3 times daily. Will give a dose of Midodrin just prior to dialysis History of Present Illness Reason for Consultation: ESRD on dialysis status post amputation Requesting Physician: Andrea Jones MD Attending Physician: Andrea Jones MD History of Present Illness 52 y/o F on MWF HD via avf who was admitted yesterday after undergoing a right below-knee amputation for chronic infected right foot. Other PMH includes DM, C AD w/ stents, ICMO EF 35%, DM2, PVD s/ p R SFA angioplasty and 2 stents, also s/p R CEA. She has been recovering encompassing rehab. She has been dialyzed on Tuesday schedule over at rehab. Her last dialysis was on which was uneventful. This morning she is complaining of feeling wiped out. She was doing physical therapy this morning. She reports some shortness of breath. No vomiting or diarrhea Allergies Allergy/AdvReac Type Severity Reaction Status Date / Time adhesive Allergy Mild RASH, SORES Verified 10/27/18 09:13 latex Allergy Mild rash Verified 10/27/18 09:13 No Known Drug Allergies Allergy Mild . Verified 10/27/18 09:13 pollen extracts Allergy Mild WATERY EYES Verified 10/27/18 09:13 Home Medications Home Medications Medication Instructions Recorded Confirmed Type aspirin 81 mg PO QAM 08/16/18 10/27/18 History atorvastatin 40 mg PO QAM 08/16/18 10/27/18 History nitroglycerin 0.4 mg SUBLINGUAL DIRECTED PRN 08/16/18 10/27/18 History pantoprazole 40 mg PO QAM 08/16/18 10/27/18 History sertraline 25 mg PO QAM 08/16/18 10/27/18 History fluticasone [Flonase Allergy 1 spray INTRANASAL DAILY 09/19/18 10/27/18 History Relief] gabapentin 100 mg PO TID 09/19/18 10/27/18 History isosorbide mononitrate 60 mg PO QAM 09/19/18 10/27/18 History levothyroxine 50 mcg PO QAM 09/19/18 10/27/18 History meclizine 25 mg PO TID PRN 09/19/18 10/27/18 History midodrine 10 mg PO TID 09/19/18 10/27/18 History nystatin 1 applic TOPICAL BID 09/19/18 10/27/18 History sennosides-docusate sodium 2 tab PO DAILY PRN 09/19/18 10/27/18 History [Senna-S] sevelamer carbonate [Renvela] 4 tab PO TID 09/19/18 10/27/18 History Fleet Enema 118 ml SC DAILY PRN 10/06/18 10/27/18 History bisacodyl 10 mg SC DAILY PRN 10/06/18 10/27/18 History insulin glargine 15 unit SUBCUT HS 10/06/18 10/27/18 History lorazepam [Ativan] 0.5 mg PO DAILY PRN 10/06/18 10/27/18 History magnesium hydroxide [Milk of 30 ml PO DAILY PRN 10/06/18 10/27/18 History Magnesia] metoprolol tartrate 12.5 mg PO BID 10/06/18 10/27/18 History ondansetron HCl [Zofran] 4 mg PO QID PRN 10/06/18 10/27/18 History polyethylene glycol 3350 [Miralax] 17 g PO DAILY PRN 10/06/18 10/27/18 History B complex with C#20-folic acid 1 cap PO DAILY 10/25/18 10/27/18 History [Nephrocaps] acetaminophen 500 mg PO Q4H PRN 10/25/18 10/27/18 History darbepoetin lillian in polysorbat 1 dose SUBCUT WK 10/25/18 10/27/18 History [Aranesp (in polysorbate)] docusate sodium 100 mg PO BID PRN 10/25/18 10/27/18 History hydrocodone-acetaminophen 1 tab PO Q6H PRN 10/25/18 10/27/18 History insulin glargine [Lantus U-100 15 unit SUBCUT QPM 10/25/18 10/27/18 History Insulin] lidocaine [Lidoderm] 1 patch TOPICAL QAM 10/25/18 10/27/18 History oxycodone 1 - 2 tab PO Q4H PRN 10/25/18 10/27/18 History amoxicillin-pot clavulanate 1 tab PO DAILY 10/27/18 10/27/18 History [Augmentin] amoxicillin-pot clavulanate 1 tab PO DAILY 10/27/18 10/27/18 History [Augmentin] clopidogrel [Plavix] 75 mg PO DAILY 10/27/18 10/27/18 History dextrose [Glucose Gel] See Rx Instructions .ROUTE 10/27/18 10/27/18 History .COMPLEX PRN glucagon HCl See Rx Instructions .ROUTE 10/27/18 10/27/18 History .COMPLEX PRN heparin (porcine) 1,000 unit IV DAILY 10/27/18 10/27/18 History heparin (porcine) See Rx Instructions .ROUTE 10/27/18 10/27/18 History .COMPLEX PRN iron sucrose [Venofer] See Rx Instructions .ROUTE .COMPLEX 10/27/18 10/27/18 History oxycodone 5 mg PO Q4 PRN 10/27/18 10/27/18 History sodium chloride 0.9 % 1,000 ml IV PRN 10/27/18 History Patient History Medical History Peripheral vascular disease (Chronic) s/p R SFA angioplasty with 2 stents placed at [facility] [place] on 08/09/18 Arthritis (Chronic) CAD (coronary artery disease) (Chronic) "s/p PCI and BMS to left circumflex 03/2016" Ischemic cardiomyopathy (Chronic) "echo 05/2016 - EF 40-45%, grade I diastolic dysfunction" Carotid stenosis (Chronic) "left ICA" ESRD (end stage renal disease) on dialysis (Chronic) MWF DM type 2 (diabetes mellitus, type 2) (Chronic) GERD (gastroesophageal reflux disease) (Chronic) Allergic rhinitis (Chronic) Morbid obesity (Chronic) Dyslipidemia (Chronic) Tobacco use disorder (Resolved) HTN (hypertension) (Chronic) C. difficile colitis (Resolved) Anemia Ischemia SEVERE RLE GANGRENE MRSA (methicillin resistant Staphylococcus aureus) colonization Nares Peripheral neuropathy Surgical History Hemodialysis access, AV graft (Chronic) "[facility] Dr. Jones 08/25/12" History of left-sided carotid endarterectomy (Resolved) H/O vascular surgery STENTING OF VESSELS ZELALEM/GLENNY History of amputation RT FOOT TRANSMETARSAL AMPUTATION S/P debridement WOUND VAC RLE Family History Other Diabetes Heart disease Social History Preferred Language: Urdu Beliefs That Will Affect Care: None marital status: / Current Living Situation: Rehab Feels Safe at Home: Yes Smoking Status: Former smoker Hx Alcohol Use: Yes (holidays) Hx Substance Use: No Review of Systems Constitutional: + malaise and + weakness Eyes: no eye pain and no photophobia Ear, Nose, Mouth, Throat: no ear pain Respiratory: + dyspnea on exertion Cardiovascular: no chest pain Gastrointestinal: no abdominal pain and no vomiting Neurologic: no confusion Physical Exam Vital Signs (Past 24 Hours): Last Vital Signs Temp 37 C 10/28/18 07:57 Pulse 82 10/28/18 07:57 Resp 16 10/28/18 07:57 BP 125/69 10/28/18 07:57 Pulse Ox 100 10/28/18 07:57 Physical Exam: General exam: Obese female, appears comfortable, no acute distress HEENT: Pupils are equal and reactive to light Neck: No JVD, neck is supple trachea is midline Respiratory system: Clear breath sounds bilaterally. Gastrointestinal: Abdomen is soft, non distended, non tender, bowel sounds are present CVS: Regular rate and rhythm. No murmurs, rubs or gallops Musculoskeletal: No joint or muscle tenderness Extremities: Right BKA, stump is wrapped. No edema in the left leg Neuro: Oriented, no tremors, no focal neurological deficits Skin: No rashes Results & Data Laboratory Results Reviewed hemoglobin of 8.6, potassium of 4.8 (1) Hypotension Hypotension type: unspecified hypotension type Qualified Code(s): I95.9 - Hypotension, unspecified
[2018-10-28] MEDS: AMOXICILLIN/CLAVULANATE 500 MG TAB PO SCH (21:22)
[2018-10-28] MEDS: INSULIN GLARGINE SOLOSTAR 100 UNITS/ML 3 ML PEN SC SCH (21:25)
[2018-10-29] MEDS: MoRPHine SULFATE 4 MG/ML 1 ML CARP\\VIAL IV PRN (01:08)
[2018-10-29] MEDS: LEVOTHYROXINE SODIUM 50 MCG TABLET PO SCH (05:33)
[2018-10-29] MEDS: MIDODRINE HCL 10 MG TAB PO SCH ×3 (05:35→17:55)
[2018-10-29] MEDS: SEVELAMER HCL 800 MG TABLET PO SCH ×3 (09:27→17:57)
[2018-10-29] MEDS: FLUTICASONE PROPIONATE NA SPR 16 GM BTL SCH (09:27)
[2018-10-29] MEDS: ASPIRIN 81 MG ECTAB PO SCH (09:27)
[2018-10-29] MEDS: CLOPIDOGREL BISULFATE 75 MG TAB PO SCH (09:28)
[2018-10-29] MEDS: PANTOprazole 40 MG TAB PO SCH (09:28)
[2018-10-29] MEDS: METOPROLOL TARTRATE 25 MG TAB PO SCH ×2 (09:28→20:48)
[2018-10-29] MEDS: GABAPENTIN 100 MG CAP PO SCH ×3 (09:28→20:48)
[2018-10-29] MEDS: ISOSORBIDE MONO EXTENDED REL 60 MG TABCR PO SCH (09:28)
[2018-10-29] MEDS: NEPHROCAPS PO SCH (09:28)
[2018-10-29] MEDS: ATORVASTATIN 40 MG TAB PO SCH (09:28)
[2018-10-29] MEDS: HYDROCODONE/ACETAMOPHEN 5/325MG TAB PO PRN (09:30)
[2018-10-29] MEDS: HEPARIN SOD 5,000 UNIT/0.5 ML VIAL SQ SCH ×2 (09:32→20:45)
[2018-10-29] MEDS: SERTRALINE HCL 50 MG TABLET PO SCH (09:32)
[2018-10-29] MEDS: LIDOCAINE 5% 1 PATCH TD SCH (09:32)
[2018-10-29] MEDS: NYSTATIN POWDER 15GM BTL EXT SCH ×2 (09:38→20:54)
--- NOTE | 2018-10-29 13:08 | Surgery Progress Note ---
Date of Service October 29, 2018 Assessment & Plan (1) Amput below knee, unilat: Doing well post op Will look at stump tomorrow. Subjective Complains of mild stump pain. Improving slowly. Physical Exam Vital Signs (Past 24 Hours): Last Vital Signs Temp 36.6 C 10/29/18 07:13 Pulse 67 10/29/18 07:13 Resp 18 10/29/18 07:13 BP 120/73 10/29/18 07:13 Pulse Ox 93 10/29/18 07:13 Stump dressing intact. Minimal tenderness on palpation
--- NOTE | 2018-10-29 16:33 | Nephrology Progress Note ---
Date of Service October 29, 2018 Assessment & Plan (1) ESRD (end stage renal disease) on dialysis: Patient with ESRD on dialysis Tuesday of recent while at rehab. She was previously Tuesday. Her last dialysis was yesterday. Next HD tuesday (2) Anemia associated with chronic renal failure: Hemoglobin of 8.6 yesterday. Continue epogen with HD (3) Hypotension: We will continue midodrine 10 mg 3 times daily. Will give a dose of Midodrin just prior to dialysis Subjective ESRD s/p right BKA. C/o fatigue. tolerated HD well yesterday Review of Systems All systems reviewed & are unremarkable except as noted in HPI & below Physical Exam Vital Signs (Past 24 Hours): Last Vital Signs Temp 36.5 C 10/29/18 16:28 Pulse 69 10/29/18 16:28 Resp 18 10/29/18 16:28 BP 113/71 10/29/18 16:28 Pulse Ox 92 10/29/18 16:28 Physical Exam: General exam: Appears comfortable, no acute distress HEENT: Pupils are equal and reactive to light Neck: No JVD, neck is supple trachea is midline Respiratory system: Clear breath sounds bilaterally. Gastrointestinal: Abdomen is soft, non distended, non tender, bowel sounds are present CVS: Regular rate and rhythm. No murmurs, rubs or gallops Musculoskeletal: No joint or muscle tenderness Extremities: Right BKA Neuro: Oriented, no tremors, no focal neurological deficits Skin: No rashes (1) Hypotension Hypotension type: unspecified hypotension type Qualified Code(s): I95.9 - Hypotension, unspecified
[2018-10-29] MEDS: AMOXICILLIN/CLAVULANATE 500 MG TAB PO SCH (17:56)
[2018-10-29] MEDS: INSULIN GLARGINE SOLOSTAR 100 UNITS/ML 3 ML PEN SC SCH (20:45)
[2018-10-30] MEDS: HYDROCODONE/ACETAMOPHEN 5/325MG TAB PO PRN ×2 (04:37→14:02)
[2018-10-30] MEDS: MIDODRINE HCL 10 MG TAB PO SCH ×3 (06:07→17:13)
[2018-10-30] MEDS: LEVOTHYROXINE SODIUM 50 MCG TABLET PO SCH (06:07)
[2018-10-30] MEDS: SEVELAMER HCL 800 MG TABLET PO SCH ×3 (08:38→18:04)
[2018-10-30] MEDS: ASPIRIN 81 MG ECTAB PO SCH (08:40)
[2018-10-30] MEDS: FLUTICASONE PROPIONATE NA SPR 16 GM BTL SCH (08:42)
[2018-10-30] MEDS: ISOSORBIDE MONO EXTENDED REL 60 MG TABCR PO SCH (08:46)
[2018-10-30] MEDS: LIDOCAINE 5% 1 PATCH TD SCH (08:47)
[2018-10-30] MEDS: ATORVASTATIN 40 MG TAB PO SCH (08:48)
[2018-10-30] MEDS: METOPROLOL TARTRATE 25 MG TAB PO SCH ×2 (08:48→21:01)
[2018-10-30] MEDS: NEPHROCAPS PO SCH (08:52)
[2018-10-30] MEDS: GABAPENTIN 100 MG CAP PO SCH ×3 (08:52→20:53)
[2018-10-30] MEDS: CLOPIDOGREL BISULFATE 75 MG TAB PO SCH (08:55)
[2018-10-30] MEDS: PANTOprazole 40 MG TAB PO SCH (08:56)
[2018-10-30] MEDS: SERTRALINE HCL 50 MG TABLET PO SCH ×2 (08:57→20:52)
[2018-10-30] MEDS: HEPARIN SOD 5,000 UNIT/0.5 ML VIAL SQ SCH ×2 (09:29→20:48)
--- NOTE | 2018-10-30 09:38 | Surgery Progress Note ---
Date of Service October 30, 2018 Assessment & Plan (1) Amput below knee, unilat: Pt doing well post op. Pain controlled with meds currently. Continue with PT/OT today. No dressing required to RLE BKA unless drainage occurs. Pt requested dressing changes to L great toe and L 2nd finger, orders placed. Likely d/c to rehab in 1-2 days. Present on Admission?: No Subjective 52 yo f with multiple medical problems, POD #3 after RLE BKA d/t infected and nonhealing wounds of R foot, seen in f/u today. Pt states overall pain is well controlled, but does occasionally get sharper pains, almost like spasms in R knee and stump. Denies chest pain, NELSON, SOB, abd pain, N/V, other complaints. Did have BM last night. Physical Exam Vital Signs (Past 24 Hours): Last Vital Signs Temp 36.7 C 10/30/18 08:00 Pulse 68 10/30/18 08:00 Resp 17 10/30/18 08:00 BP 119/80 10/30/18 08:00 Pulse Ox 94 10/30/18 08:00 Constitutional: WD/WN, vitals as above + morbidly obese; no acute distress Respiratory: normal respiratory effort, lungs clear to auscultation Cardiovascular: RRR, no murmur, no edema Gastrointestinal (Abdomen): normal bowel sounds, soft, nontender, no hepatosplenomegaly Musculoskeletal: no cyanosis or clubbing, extremities motor strength 5/5 RLE BKA site C/D/I with petra/sutures. + local tenderness and edema. Soft. No erythema, necrosis, ecchymosis, or discharge. Good extension.
[2018-10-30] MEDS: NYSTATIN POWDER 15GM BTL EXT SCH ×2 (11:11→20:51)
[2018-10-30] MEDS: MoRPHine SULFATE 4 MG/ML 1 ML CARP\\VIAL IV PRN (12:02)
[2018-10-30] MEDS: AMOXICILLIN/CLAVULANATE 500 MG TAB PO SCH (17:12)
[2018-10-30] MEDS: INSULIN GLARGINE SOLOSTAR 100 UNITS/ML 3 ML PEN SC SCH (20:49)
[2018-10-31] MEDS: LEVOTHYROXINE SODIUM 50 MCG TABLET PO SCH (06:24)
[2018-10-31] MEDS: MIDODRINE HCL 10 MG TAB PO SCH ×4 (06:24→19:59)
[2018-10-31] MEDS: IRON SUCROSE 100 MG in 0.9 % SODIUM CHLORIDE 100 ML IV SCH (06:34)
[2018-10-31] MEDS ORDERED: SODIUM CHLORIDE 0.9% 1000ML 1,000 ML IV PRN (07:54)
[2018-10-31] MEDS ORDERED: EPOETIN ALFA 20,000 UNITS/ML VIAL IV SCH (08:00)
[2018-10-31] MEDS ORDERED: HEPARIN SOD (PORCINE) 1000 UNIT/ML 10 ML VIAL IV ONE (08:00)
[2018-10-31] MEDS: ATORVASTATIN 40 MG TAB PO SCH (08:45)
[2018-10-31] MEDS: NEPHROCAPS PO SCH (08:45)
[2018-10-31] MEDS: FLUTICASONE PROPIONATE NA SPR 16 GM BTL SCH (08:45)
[2018-10-31] MEDS: LIDOCAINE 5% 1 PATCH TD SCH (08:46)
[2018-10-31] MEDS: PANTOprazole 40 MG TAB PO SCH (08:46)
[2018-10-31] MEDS: SEVELAMER HCL 800 MG TABLET PO SCH ×3 (08:47→20:00)
[2018-10-31] MEDS: ASPIRIN 81 MG ECTAB PO SCH (08:48)
[2018-10-31] MEDS: GABAPENTIN 100 MG CAP PO SCH ×3 (08:48→20:05)
[2018-10-31] MEDS: CLOPIDOGREL BISULFATE 75 MG TAB PO SCH (08:49)
[2018-10-31] MEDS: HEPARIN SOD 5,000 UNIT/0.5 ML VIAL SQ SCH ×2 (08:55→20:08)
[2018-10-31] MEDS: NYSTATIN POWDER 15GM BTL EXT SCH ×2 (10:51→22:03)
--- NOTE | 2018-10-31 10:51 | Surgery Progress Note ---
Date of Service October 31, 2018 Assessment & Plan (1) Amput below knee, unilat: Hopefully can send her to rehab tomorrow or . Subjective Complains of mild stump pain. Improving slowly. Physical Exam Vital Signs (Past 24 Hours): Last Vital Signs Temp 36.6 C 10/31/18 08:36 Pulse 69 10/31/18 08:36 Resp 16 10/31/18 08:36 BP 133/83 10/31/18 08:36 Pulse Ox 99 10/31/18 08:36 Stump incision is well approximated. Clean and dry No erythema
[2018-10-31] MEDS: ISOSORBIDE MONO EXTENDED REL 60 MG TABCR PO SCH (11:46)
[2018-10-31] MEDS: METOPROLOL TARTRATE 25 MG TAB PO SCH ×2 (11:46→20:01)
[2018-10-31] MEDS: MoRPHine SULFATE 4 MG/ML 1 ML CARP\\VIAL IV PRN (13:28)
[2018-10-31] MEDS: AMOXICILLIN/CLAVULANATE 500 MG TAB PO SCH (20:00)
[2018-10-31] MEDS: SERTRALINE HCL 50 MG TABLET PO SCH (20:03)
[2018-10-31] MEDS: INSULIN GLARGINE SOLOSTAR 100 UNITS/ML 3 ML PEN SC SCH (20:05)
--- NOTE | 2018-10-31 21:31 | Nephrology Progress Note ---
Date of Service October 31, 2018 Assessment & Plan (1) ESRD (end stage renal disease) on dialysis: ESRD on dialysis Tuesday of recent while at rehab. She was previously Tuesday. -for routine HD today; next HD tentatively for 11/02 or as clinical status dictates -chemistries/volume status have been acceptable (2) Anemia associated with chronic renal failure: Continue aggressive epogen with HD since w/ her wounds will be epo resistant (3) Hypotension: We will continue midodrine 10 mg 3 times daily. Will give a dose of Midodrin just prior to dialysis Subjective pt depressed; many worries about her home life. no sob; pain after amputation still intermittently an issue; no pus or discoloratoin or drainage at stump. no n/v; no chest pain/palpitations; no rash Physical Exam Vital Signs (Past 24 Hours): Last Vital Signs Temp 37.0 C 10/31/18 19:47 Pulse 72 10/31/18 19:47 Resp 18 10/31/18 19:47 BP 104/71 10/31/18 19:47 Pulse Ox 96 10/31/18 19:47 Constitutional: well developed and well nourished lying flat on ra Eyes: EOM intact bilaterally ENMT: Ears: no external ear abnormality Nose: no external nose abnormality Mouth: + dry oral mucous membranes Neck: no nuchal rigidity Respiratory: normal respiratory effort Auscultation: + diminished lung sounds Cardiovascular: Rate/Rhythm: regular rate and regular rhythm Extremities: + AV fistula (+ t/b); no edema Gastrointestinal (Abdomen): Inspection/Auscultation: normal bowel sounds Percussion/Palpation: abdomen soft; abdomen nontender Musculoskeletal: Extremities: strength 5/5 throughout s/p R BKA w/ clean incision, L second digit boutnd and sore on L great toe Skin: no rashes, warm and dry Neurologic: stein, fluent speech, no tremor Psychiatric: Orientation: alert and oriented x 3 Eye Contact: good eye contact Speech: + pressured speech Affect: + anxious affect Results & Data Laboratory Results Abnormal lab results 10/31/18 Range/Units 11:59 POC Glucose 118 H (70-99) (1) Hypotension Hypotension type: unspecified hypotension type Qualified Code(s): I95.9 - Hypotension, unspecified
[2018-11-01] MEDS: MIDODRINE HCL 10 MG TAB PO SCH ×3 (06:34→18:13)
[2018-11-01] MEDS: LEVOTHYROXINE SODIUM 50 MCG TABLET PO SCH (06:34)
[2018-11-01] MEDS: SEVELAMER HCL 800 MG TABLET PO SCH ×3 (08:49→18:13)
[2018-11-01] MEDS: ASPIRIN 81 MG ECTAB PO SCH (08:53)
[2018-11-01] MEDS: FLUTICASONE PROPIONATE NA SPR 16 GM BTL SCH (08:55)
[2018-11-01] MEDS: ISOSORBIDE MONO EXTENDED REL 60 MG TABCR PO SCH (08:56)
[2018-11-01] MEDS: LIDOCAINE 5% 1 PATCH TD SCH (08:57)
[2018-11-01] MEDS: ATORVASTATIN 40 MG TAB PO SCH (08:58)
[2018-11-01] MEDS: METOPROLOL TARTRATE 25 MG TAB PO SCH ×2 (09:00→21:40)
[2018-11-01] MEDS: NEPHROCAPS PO SCH (09:02)
[2018-11-01] MEDS: GABAPENTIN 100 MG CAP PO SCH ×3 (09:04→21:41)
[2018-11-01] MEDS: CLOPIDOGREL BISULFATE 75 MG TAB PO SCH (09:05)
[2018-11-01] MEDS: PANTOprazole 40 MG TAB PO SCH (09:06)
[2018-11-01] MEDS: HEPARIN SOD 5,000 UNIT/0.5 ML VIAL SQ SCH ×2 (09:19→21:37)
[2018-11-01] MEDS: HYDROCODONE/ACETAMOPHEN 5/325MG TAB PO PRN (10:45)
[2018-11-01] MEDS: NYSTATIN POWDER 15GM BTL EXT SCH ×2 (10:48→21:40)
--- NOTE | 2018-11-01 11:46 | Surgery Progress Note ---
Date of Service November 01, 2018 Assessment & Plan (1) Amput below knee, unilat: Patient is doing well. This point she is ready to be transferred to rehab. We will see her in 2 weeks in the office for follow-up. Subjective Patient is complaining of discomfort when hanging her stump of the side of the bed otherwise there is no pain except with motion. Physical Exam Vital Signs (Past 24 Hours): Last Vital Signs Temp 36.9 C 11/01/18 07:50 Pulse 71 11/01/18 07:50 Resp 17 11/01/18 07:50 BP 109/67 11/01/18 07:50 Pulse Ox 95 11/01/18 07:50 Patient is awake oriented x3. The amputation stump is well approximated. There is no evidence of drainage. There is no redness seen.
[2018-11-01] MEDS: MoRPHine SULFATE 4 MG/ML 1 ML CARP\\VIAL IV PRN (11:49)
[2018-11-01] MEDS: AMOXICILLIN/CLAVULANATE 500 MG TAB PO SCH (18:12)
[2018-11-01] MEDS: INSULIN GLARGINE SOLOSTAR 100 UNITS/ML 3 ML PEN SC SCH (21:39)
[2018-11-01] MEDS: SERTRALINE HCL 50 MG TABLET PO SCH (21:42)
[2018-11-02] MEDS: HYDROCODONE/ACETAMOPHEN 5/325MG TAB PO PRN (00:29)
[2018-11-02] MEDS: LEVOTHYROXINE SODIUM 50 MCG TABLET PO SCH (06:10)
[2018-11-02] MEDS: MIDODRINE HCL 10 MG TAB PO SCH ×3 (06:11→18:44)
[2018-11-02] MEDS ORDERED: EPOETIN ALFA 20,000 UNITS/ML VIAL IV ONE (07:33)
[2018-11-02] MEDS ORDERED: SODIUM CHLORIDE 0.9% 1000ML 1,000 ML IV PRN (07:33)
[2018-11-02] MEDS ORDERED: EPOETIN ALFA 24,000 UNITS in SYRINGE 0 ML SQ SCH (08:00)
[2018-11-02] MEDS ORDERED: HEPARIN SOD (PORCINE) 1000 UNIT/ML 10 ML VIAL IV SCH (08:00)
[2018-11-02] MEDS ORDERED: EPOETIN ALFA 24,000 UNITS in SYRINGE 0 ML IV SCH (08:00)
[2018-11-02 08:41] LABS: Hematocrit (blood only) 30.8 % (37-47); Hemoglobin 8.7 g/dL (12.0-16.0); Mean Corpuscular Hgb Conc 28.2 g/dL (32-36); Mean Corpuscular Volume 90.9 fL (80-100); Mean Platelet Volume 9.7 fL (7.4-10.4); Platelet Count 322 K/uL (130-400); RDW Coefficient of Variation 20.2 % (11.5-14.5); RDW Standard Deviation 64.5 fL (36.4-46.3); Red Blood Count 3.39 M/uL (4.2-5.4); White Blood Count 8.33 K/uL (4.8-10.8)
[2018-11-02] MEDS: HEPARIN SOD 5,000 UNIT/0.5 ML VIAL SQ SCH ×2 (08:57→22:26)
[2018-11-02] MEDS: SEVELAMER HCL 800 MG TABLET PO SCH ×3 (09:01→18:44)
[2018-11-02 09:06] LABS: BUN Creatinine Ratio 6.9 (10-20); Calcium 9.7 mg/dl (8.5-10.1); Creatinine Clr Calc Pharmacy 16.2 ml/min; Est GFR (African American) 10.9; Est GFR (Non-African American) 9.4; Potassium 4.8 mmol/L (3.5-5.1)
[2018-11-02] MEDS: METOPROLOL TARTRATE 25 MG TAB PO SCH ×2 (09:07→22:33)
[2018-11-02] MEDS: PANTOprazole 40 MG TAB PO SCH (09:11)
[2018-11-02] MEDS: ASPIRIN 81 MG ECTAB PO SCH (09:11)
[2018-11-02] MEDS: NEPHROCAPS PO SCH (09:11)
[2018-11-02] MEDS: GABAPENTIN 100 MG CAP PO SCH ×3 (09:11→22:30)
[2018-11-02] MEDS: CLOPIDOGREL BISULFATE 75 MG TAB PO SCH (09:11)
[2018-11-02] MEDS: ATORVASTATIN 40 MG TAB PO SCH (09:11)
[2018-11-02] MEDS: ISOSORBIDE MONO EXTENDED REL 60 MG TABCR PO SCH (09:11)
[2018-11-02] MEDS: FLUTICASONE PROPIONATE NA SPR 16 GM BTL SCH (09:12)
[2018-11-02] MEDS: LIDOCAINE 5% 1 PATCH TD SCH (09:12)
[2018-11-02] MEDS: NYSTATIN POWDER 15GM BTL EXT SCH ×2 (09:13→22:38)
--- NOTE | 2018-11-02 13:21 | Surgery Progress Note ---
Date of Service November 02, 2018 Assessment & Plan (1) Amput below knee, unilat: Patient is doing well. Awaiting rehab bed. Subjective Patient is feeling better today. Physical Exam Vital Signs (Past 24 Hours): Last Vital Signs Temp 36.6 C 11/02/18 07:45 Pulse 66 11/02/18 07:45 Resp 16 11/02/18 07:45 BP 114/67 11/02/18 07:45 Pulse Ox 95 11/02/18 07:45 Constitutional: WD/WN, vitals as above Skin: + incision (dry and clean. no erythema)
[2018-11-02] MEDS: HEPARIN SOD (PORCINE) 1000 UNIT/ML 10 ML VIAL IV SCH ×3 (14:20→16:45)
[2018-11-02] MEDS ORDERED: IRON SUCROSE 100 MG in 0.9 % SODIUM CHLORIDE 100 ML IV SCH (18:00)
[2018-11-02] MEDS: AMOXICILLIN/CLAVULANATE 500 MG TAB PO SCH (18:46)
--- NOTE | 2018-11-02 22:08 | Nephrology Progress Note ---
Date of Service November 02, 2018 Assessment & Plan (1) ESRD (end stage renal disease) on dialysis: ESRD on dialysis Tuesday of recent while at rehab. She was previously Tuesday. -for routine HD today; next HD tentatively for 11/04 or as clinical status dictates -chemistries/volume status have been acceptable (2) Anemia associated with chronic renal failure: Continue aggressive epogen with HD since w/ her wounds will be epo resistant her iron stores are quite low and she has started venofer load (3) Hypotension: We will continue midodrine 10 mg 3 times daily. Will give a dose of Midodrin just prior to dialysis Subjective seen on evening rounds; tolerated 2L UF on hd today. feels less depressed but more tired; also w/ poor appetite though no N or emesis; no uncontrolled pain; not sob Physical Exam Vital Signs (Past 24 Hours): Last Vital Signs Temp 36.4 C L 11/02/18 17:50 Pulse 72 11/02/18 17:50 Resp 16 11/02/18 07:45 BP 113/62 11/02/18 17:50 Pulse Ox 95 11/02/18 07:45 Constitutional: well developed and well nourished on RA Eyes: EOM intact bilaterally ENMT: Ears: no external ear abnormality Nose: no external nose abnormality Mouth: + dry oral mucous membranes Neck: no nuchal rigidity Respiratory: normal respiratory effort Auscultation: + diminished lung sounds Cardiovascular: Rate/Rhythm: regular rate and regular rhythm Extremities: + AV fistula (+ t/b); no edema Gastrointestinal (Abdomen): Inspection/Auscultation: normal bowel sounds Percussion/Palpation: abdomen soft; abdomen nontender Musculoskeletal: Extremities: strength 5/5 throughout Skin: no rashes, warm and dry some pallor; stump R BKA incision w/o drainage Psychiatric: Orientation: alert and oriented x 3 Eye Contact: good eye contact Speech: + pressured speech Affect: + anxious affect Results & Data Laboratory Results Abnormal lab results 11/02/18 11/02/18 11/02/18 Range/Units 07:48 07:55 07:55 RBC 3.39 L (4.2-5.4) M/uL Hgb 8.7 L (12.0-16.0) g/dL Hct 30.8 L (37-47) % MCHC 28.2 L (32-36) g/dL RDW Std Deviation 64.5 H (36.4-46.3) fL RDW Coeff of Dru 20.2 H (11.5-14.5) % Sodium 132 L (136-145) mmol/L BUN 34 H (7-18) mg/dl Creatinine 4.97 H* (0.6-1.2) mg/dl BUN/Creatinine Ratio 6.9 L (10-20) Glucose 108 H (70-99) mg/dl POC Glucose 119 H (70-99) Iron 20 L (35-150) mcg/dl Transferrin 185 L (200-360) mg/dl Transferrin % Sat 8 L (15-50) % 11/02/18 11/02/18 11/02/18 Range/Units 12:26 17:06 21:02 RBC (4.2-5.4) M/uL Hgb (12.0-16.0) g/dL Hct (37-47) % MCHC (32-36) g/dL RDW Std Deviation (36.4-46.3) fL RDW Coeff of Dru (11.5-14.5) % Sodium (136-145) mmol/L BUN (7-18) mg/dl Creatinine (0.6-1.2) mg/dl BUN/Creatinine Ratio (10-20) Glucose (70-99) mg/dl POC Glucose 125 H 113 H 133 H (70-99) Iron (35-150) mcg/dl Transferrin (200-360) mg/dl Transferrin % Sat (15-50) % (1) Hypotension Hypotension type: unspecified hypotension type Qualified Code(s): I95.9 - Hypotension, unspecified
[2018-11-02] MEDS: INSULIN GLARGINE SOLOSTAR 100 UNITS/ML 3 ML PEN SC SCH (22:28)
[2018-11-02] MEDS: SERTRALINE HCL 50 MG TABLET PO SCH (22:30)
[2018-11-03] MEDS: HYDROCODONE/ACETAMOPHEN 5/325MG TAB PO PRN (00:06)
[2018-11-03] MEDS: MIDODRINE HCL 10 MG TAB PO SCH ×2 (06:01→11:34)
[2018-11-03] MEDS: LEVOTHYROXINE SODIUM 50 MCG TABLET PO SCH (06:01)
[2018-11-03] MEDS: CLOPIDOGREL BISULFATE 75 MG TAB PO SCH (08:05)
[2018-11-03] MEDS: NEPHROCAPS PO SCH (08:05)
[2018-11-03] MEDS: ATORVASTATIN 40 MG TAB PO SCH (08:05)
[2018-11-03] MEDS: METOPROLOL TARTRATE 25 MG TAB PO SCH (08:06)
[2018-11-03] MEDS: ISOSORBIDE MONO EXTENDED REL 60 MG TABCR PO SCH (08:07)
[2018-11-03] MEDS: PANTOprazole 40 MG TAB PO SCH (08:07)
[2018-11-03] MEDS: SEVELAMER HCL 800 MG TABLET PO SCH ×3 (08:08→11:51)
[2018-11-03] MEDS: GABAPENTIN 100 MG CAP PO SCH (08:08)
[2018-11-03] MEDS: ASPIRIN 81 MG ECTAB PO SCH (08:09)
[2018-11-03] MEDS: LIDOCAINE 5% 1 PATCH TD SCH (08:10)
[2018-11-03] MEDS: FLUTICASONE PROPIONATE NA SPR 16 GM BTL SCH (08:10)
[2018-11-03] MEDS: NYSTATIN POWDER 15GM BTL EXT SCH (08:12)
[2018-11-03] MEDS: HEPARIN SOD 5,000 UNIT/0.5 ML VIAL SQ SCH (08:16)
--- NOTE | 2018-11-03 09:44 | Surgery Progress Note ---
Date of Service November 03, 2018 Assessment & Plan (1) Amput below knee, unilat: Pt doing well post op. Pain controlled with meds currently. Continue with PT/OT. No dressing required to RLE BKA unless drainage occurs. D/C to rehab today. Will see in office in 2 weeks for staple removal. Subjective 52 yo f with multiple medical problems, post op after RLE BKA d/t infected and nonhealing wounds of R foot, seen in f/u today. Pt states doing well, admits some discomfort, but denies any new complaints. Physical Exam Vital Signs (Past 24 Hours): Last Vital Signs Temp 37.0 C 11/03/18 08:22 Pulse 64 11/03/18 08:22 Resp 16 11/03/18 08:22 BP 111/74 11/03/18 08:22 Pulse Ox 92 11/03/18 08:22 Constitutional: WD/WN, vitals as above + morbidly obese; no acute distress Respiratory: normal respiratory effort, lungs clear to auscultation Cardiovascular: RRR, no murmur, no edema Gastrointestinal (Abdomen): normal bowel sounds, soft, nontender, no hepatosplenomegaly Musculoskeletal: no cyanosis or clubbing, extremities motor strength 5/5
--- NOTE | 2018-11-03 09:47 | Discharge Summary ---
Date of Service November 03, 2018 Admission HPI Per Admitting Provider This is a 52 yo f with multiple medical problems, including ESRD on HD, carotid stenosis s/p CEA, CAD, DMII, GERD, HTN, dyslipidemia, morbid obesity, and PAD, admitted with infection of R foot TMA. Pt had gangrenous toes of R foot and known PAD. She underwent revascularization at [facility] which included angiography and stenting of RLE. She had complete RLE TMA on 09/21/18 d/t gangrene of R toes. She underwent debridement of her TMA. She underwent an arterial US which demonstrated patent SFA, but severe distal disease. She had further necrosis of her tma site and now is facing a BKA . Denies other complaints aside from fatigue. Denies NELSON, fever, chills, chest pain, SOB, abd pain, N/V, other complaints. Admission Exam Per Admitting Provider Constitutional: WD/WN, vitals as above well developed, well nourished, + ill appearing, + morbidly obese, + disheveled, cooperative and comfortable Eyes: PERRL, conjunctivae normal, anicteric sclerae EOM intact bilaterally ENMT: external ear and nose normal, oropharynx normal Nose: no nasal discharge Throat: no posterior oropharynx abnormality Neck: trachea midline, no thyromegaly no tracheal deviation, no neck crepitus and neck nontender Respiratory: normal respiratory effort, lungs clear to auscultation able to speak in complete sentences; does not use accessory muscles, no cough, not tachypneic and no audible wheezes Auscultation: lungs clear to auscultation bilaterally and + diminished lung sounds; no rhonchi and no wheezes Cardiovascular: RRR, no murmur, no edema Heart Sounds: no gallop and no murmur Vessels: + carotid bruit (prior CEA), femoral pulses present, brachial pulses present and radial pulses present; + abnormal peripheral pulses, + post erior tibial pulses abnormal and + dorsalis pedis pulses abnormal Extremities: + edema (RLE) and + AV fistula (LUE AVF); + abnormal capillary refill Chest (Breasts): Chest: normal inspection of chest Gastrointestinal (Abdomen): normal bowel sounds, soft, nontender, no hepatosplenomegaly Inspection/Auscultation: abdomen normal to inspection, normal bowel sounds and + significant pannus Percussion/Palpation: abdomen soft; abdomen nontender, no guarding and abdomen not rigid Musculoskeletal: no cyanosis or clubbing, extremities motor strength 5/5 Head/Neck/Chest: normocephalic, head atraumatic and neck supple Extremities: extremities normal to inspection, strength 5/5 throughout, + amputation noted (RLE TMA with necrosis along the whole incison as well as the base, tenderness is present. + local maceration, no significant drainage noted.) and + foot abnormality; full ROM of extremities Skin: normal turgor, + turgor decreased, + rash, + wound, + erythema, + eschar, + excoriations and + incision; no lesions and no ulcers Neurologic: moves all extremities and awake; no focal motor deficits and not confused Speech / Cognition: no expressive aphasia and no receptive aphasia Motor/Sensory: no tremor Cranial Nerves: EOM intact bilaterally and normal facial strength Gait: not gait assisted (wheelchair) Psychiatric: Orientation: alert, oriented x 3, oriented to person, oriented to place, oriented to time and cooperative Apperance: appropriately dressed, appropriately groomed, + disheveled and appeared stated age Affect: + depressed affect, + anxious affect and + tearful affect Thought Process: goal directed thought process, linear/logical thought process and clear/coherent thought process Cognition: recent memory grossly intact, remote memory grossly intact, attention grossly intact and language grossly intact Estimated Intelligence: + below average estimated intelligence Principal Diagnosis 1. s/p RLE Below knee amputation 2. Nonhealing/infected TMA RLE 3. PAD Discharge Exam Constitutional WD/WN, vitals as above + morbidly obese; no acute distress Respiratory normal respiratory effort, lungs clear to auscultation Cardiovascular RRR, no murmur, no edema Gastrointestinal (Abdomen) normal bowel sounds, soft, nontender, no hepatosplenomegaly Musculoskeletal no cyanosis or clubbing, extremities motor strength 5/5 Discharge Data Allergies Allergy/AdvReac Type Severity Reaction Status Date / Time adhesive Allergy Mild RASH, SORES Verified 10/27/18 09:13 latex Allergy Mild rash Verified 10/27/18 09:13 No Known Drug Allergies Allergy Mild . Verified 10/27/18 09:13 pollen extracts Allergy Mild WATERY EYES Verified 10/27/18 09:13 Consultations 10/27/18 14:49 Consult Nephrology Routine 10/28/18 08:00 Consult Case Management - Discharge Planning Routine Procedures Performed Operation Date: 10/27/18 09:20 Actual Procedures p Right Below Knee Amputation(Right) - Andrea Jones MD Operation Date: 10/30/18 09:00 <No data on this case meets the specified criteria> Ordered Studies 10/27/18 10:37 US - OR guided needle placemen Routine Hospital Course (1) Amput below knee, unilat: Pt doing well post op. Pain controlled with meds currently. Continue with PT/OT. No dressing required to RLE BKA unless drainage occurs. D/C to rehab today. Will see in office in 2 weeks for staple removal. Total Time Total Time Spent Total Time Spent (In Minutes): 30 minutes Total Time Includes: Examination of the Patient, Discharge Planning, Medication Reconciliation and Communication With Other Providers Discharge Plan Discharge Items Patient Disposition: Transfer Inpatient Rehab Fac Reason For Visit: Necrotic Right Foot - GANGRENE RIGHT TMA Discharge Diagnosis: Post right below the knee amputation Discharge Goals: Therapeutic intervention Activity: Per 'Additional Instructions' section Lifting: Gradually increase as tolerated Bathing: May shower/bathe in 3 days Weightbearing Comment: no restrictions Non-emergency contact: Surgeon Call non-emergency contact if: you have any medication questions, your symptoms worsen, your pain is not controlled, your pain is worsening, your pain is unusual for you, your pain is concerning for you, your temperature is above 101.5, your wound has increased redness, your wound has increased drainage and your wound pain has increased Follow-up/Referrals: Tamy Becerra [Primary Care Provider] - Diet: Carb Consistent or DM2, Dialysis Renal and Heart Healthy Addtl Provider Instructions: ACTIVITY RECOMMENDATIONS: See Above SPECIAL CARE INSTRUCTIONS: Call your doctor if: * Temperature above 101 degrees * Pain not relieved by pain medicine ordered * There is increased drainage or redness from any incision * You have any unanswered questions or concerns. Prescriptions: Continued atorvastatin 40 mg tablet 40 mg PO QAM RF: 0 pantoprazole 40 mg tablet,delayed release (DR/EC) 40 mg PO QAM RF: 0 nitroglycerin 0.4 mg tablet, sublingual 0.4 mg Sublingual DIRECTED PRN (Reason: Chest Pain) RF: 0 sertraline 25 mg tablet 25 mg PO QAM RF: 0 aspirin 81 mg Tablet,Delayed Release (Dr/Ec) 81 mg PO QAM RF: 0 fluticasone [Flonase Allergy Relief] 50 mcg/actuation [place],Suspension 1 spray INTRANASAL DAILY RF: 0 gabapentin 100 mg Capsule 100 mg PO TID RF: 0 isosorbide mononitrate 60 mg Tablet Extended Release 24 Hr 60 mg PO QAM RF: 0 levothyroxine 50 mcg Tablet 50 mcg PO QAM RF: 0 meclizine 25 mg Tablet 25 mg PO TID PRN (Reason: Dizziness) RF: 0 midodrine 10 mg Tablet 10 mg PO TID RF: 0 nystatin 100,000 unit/gram Powder 1 applic TOPICAL BID RF: 0 sennosides-docusate sodium [Senna-S] 8.6-50 mg Tablet 2 tab PO DAILY PRN (Reason: Constipation) RF: 0 sevelamer carbonate [Renvela] 800 mg Tablet 4 tab PO TID RF: 0 insulin glargine 100 unit/mL (3 mL) insulin pen 15 unit subcut HS RF: 0 polyethylene glycol 3350 [Miralax] 17 gram Powder In Packet 17 g PO DAILY PRN (Reason: Constipation) RF: 0 lorazepam [Ativan] 0.5 mg Tablet 0.5 mg PO DAILY PRN (Reason: Anxiety) RF: 0 bisacodyl 10 mg Suppository 10 mg MA DAILY PRN (Reason: Constipation) RF: 0 magnesium hydroxide [Milk of Magnesia] 400 mg/5 mL Suspension 30 ml PO DAILY PRN (Reason: Constipation) RF: 0 ondansetron HCl [Zofran] 4 mg Tablet 4 mg PO QID PRN (Reason: Nausea) RF: 0 Fleet Enema 19-7 gram/118 mL Enema 118 ml MA DAILY PRN (Reason: Constipation) RF: 0 metoprolol tartrate 25 mg tablet 12.5 mg PO BID RF: 0 Lantus U-100 Insulin 100 unit/mL Solution 15 unit SUBCUT QPM RF: 0 hydrocodone-acetaminophen 5-325 mg Tablet 1 tab PO Q6H PRN (Reason: Pain) RF: 0 acetaminophen 500 mg Tablet 500 mg PO Q4H PRN (Reason: Pain) RF: 0 lidocaine [Lidoderm] 5 % Adhesive Patch,Medicated 1 patch TOPICAL QAM RF: 0 docusate sodium 100 mg Capsule 100 mg PO BID PRN (Reason: Constipation) RF: 0 Nephrocaps 1 mg Capsule 1 cap PO DAILY RF: 0 oxycodone 5 mg Tablet 1 - 2 tab PO Q4H PRN (Reason: Pain) RF: 0 Aranesp (in polysorbate) 60 mcg/0.3 mL Syringe 1 dose subcut WK RF: 0 dextrose [Glucose Gel] 40 % Gel See Rx Instructions .ROUTE .COMPLEX PRN (Reason: Hypoglycemia) RF: 0 clopidogrel [Plavix] 75 mg Tablet 75 mg PO DAILY RF: 0 Venofer 100 mg iron/5 mL Solution See Rx Instructions .ROUTE .COMPLEX RF: 0 sodium chloride 0.9 % Parenteral Solution 1,000 ml IV PRN (Reason: Pain) RF: 0 oxycodone 5 mg Tablet 5 mg PO Q4 PRN (Reason: Pain) RF: 0 glucagon HCl 1 mg Recon Soln See Rx Instructions .ROUTE .COMPLEX PRN (Reason: Hypoglycemia) RF: 0 amoxicillin-pot clavulanate [Augmentin] 500-125 mg Tablet 1 tab PO DAILY RF: 0 amoxicillin-pot clavulanate [Augmentin] 500-125 mg Tablet 1 tab PO DAILY RF: 0 Discontinued heparin (porcine) 1,000 unit/mL Solution See Rx Instructions .ROUTE .COMPLEX PRN (Reason: DIALYSIS) RF: 0 heparin (porcine) 1,000 unit/mL Solution 1,000 unit IV DAILY RF: 0 Stand-Alone Forms: [facility] Discharge Orders: Discharge Order (Routine); Ordered 11/01/18 Ordered By: Andrea Jones Admission Data Admit Date/Time: 10/27/18 09:57 Attending Provider: Andrea Jones Admit Provider: Andrea Jones Primary Care Provider: Tamy Becerra Other Providers: Tereza Mas ; Christian Garcia ; Shahbaz Prakash I ; Karo Kenny ; Alka Green ; Jody Berg Service: Surgical Services
== END 2018-11-03 12:30 | DRG 856 ==
LOC: ASU 08:22 → 3N 09:57
DX: Z91.040 Latex allergy status; Z68.38 Body mass index [BMI] 38.0-38.9, adult; E66.01 Morbid (severe) obesity due to excess calories; K21.9 Gastro-esophageal reflux disease without esophagitis; D63.1 Anemia in chronic kidney disease; T81.49XA Infection following a procedure, other surgical site, initial encounter; I12.0 Hypertensive chronic kidney disease with stage 5 chronic kidney disease or end stage renal disease; Y92.009 Unspecified place in unspecified non-institutional (private) residence as the place of occurrence of the external cause; N18.6 End stage renal disease; E11.51 Type 2 diabetes mellitus with diabetic peripheral angiopathy without gangrene; T87.43 Infection of amputation stump, right lower extremity; E11.22 Type 2 diabetes mellitus with diabetic chronic kidney disease; I25.10 Atherosclerotic heart disease of native coronary artery without angina pectoris; Z22.322 Carrier or suspected carrier of Methicillin resistant Staphylococcus aureus; I25.5 Ischemic cardiomyopathy; I95.9 Hypotension, unspecified; Z79.4 Long term (current) use of insulin; Y83.8 Other surgical procedures as the cause of abnormal reaction of the patient, or of later complication, without mention of misadventure at the time of the procedure

== ENCOUNTER 2018-11-10 11:38 | Inpatient (IN) ==
[2018-11-10] MEDS ORDERED: ONDANSETRON INJ 2 MG/ML 2 ML VIAL IV STA (12:16)
[2018-11-10] MEDS ORDERED: SODIUM CHLORIDE 0.9% 1000ML 500 ML IV ONE (12:16)
[2018-11-10 12:40] LABS: Base Excess VBG 4.7 mEq/L; Oxygen Saturation VBG 63.1 %; pH VBG 7.37 (7.36-7.41)
[2018-11-10 12:52] LABS: Basophils # (auto) 0.03 K/uL (0-0.2); Basophils % (auto) 0.4 %; Eosinophils % (auto) 1.4 %; Hematocrit (blood only) 32.2 % (37-47); Hemoglobin 9.3 g/dL (12.0-16.0); Immature Granulocytes # (auto) 0.02 K/uL (0.00-0.02); Immature Granulocytes % (auto) 0.3 %; Lymphocytes # (auto) 1.29 K/uL (1.2-3.4); Lymphocytes % (auto) 17.6 %; Mean Corpuscular Hgb Conc 28.9 g/dL (32-36); Mean Corpuscular Volume 88.7 fL (80-100); Mean Platelet Volume 9.7 fL (7.4-10.4); Monocytes # (auto) 0.77 K/uL (0.11-0.59); Monocytes % (auto) 10.5 %; Neutrophils % (auto) 69.8 %; Nucleated RBC # (auto) 0.09 K/uL (0-0); Nucleated RBC % (auto) 1.2 %; Platelet Count 425 K/uL (130-400); RDW Coefficient of Variation 19.7 % (11.5-14.5); RDW Standard Deviation 63.6 fL (36.4-46.3); Red Blood Count 3.63 M/uL (4.2-5.4); White Blood Count 7.31 K/uL (4.8-10.8)
--- NOTE | 2018-11-10 12:58 | CT Scan Report ---
CT head/brain wo con CT DOSE: 537.48 mGy.cm HISTORY: Mental status change confusion TECHNIQUE: Multiaxial CT images of the head were performed without the use of intravenous contrast. A dose lowering technique was utilized adhering to the principles of ALARA. Comparison: None. Findings: The paranasal sinuses and mastoid air cells are clear. The calvarium and skull base are int act. The ventricles and sulci are within normal limits. There is no mass, hematoma, midline shift, or acute infarct. Impression: No acute intracranial abnormality. The above report was generated using voice recognition software. It may contain grammatical, syntax or spelling errors. Electronically signed by: Edmundo Lam M.D. 11/10/2018 12:56 PM
[2018-11-10 13:02] LABS: BUN Creatinine Ratio 7.8 (10-20); Calcium 9.7 mg/dl (8.5-10.1); Creatinine Clr Calc Pharmacy 22.5 ml/min; Est GFR (African American) 14.8; Est GFR (Non-African American) 12.7; Magnesium 2.1 mg/dl (1.8-2.4); Potassium 4.5 mmol/L (3.5-5.1)
--- NOTE | 2018-11-10 13:07 | XRay Report ---
XR chest 1V portable CLINICAL HISTORY: weakness dyspnea COMPARISON STUDY: 10/27/2018 FINDINGS: Moderate cardiomegaly. Prominent pulmonary vasculature. Probable small left effusion. IMPRESSION: Developing congestive heart failure with a small left effusion. The above report was generated using voice recognition software. It may contain grammatical, syntax or spelling errors. Electronically signed by: Edmundo Lam M.D. 11/10/2018 1:05 PM
[2018-11-10 13:11] LABS: Albumin Globulin Ratio 0.3 (0.9-2); Bilirubin,Total 0.8 mg/dl (0.2-1); Globulin 5.9 gm/dl (2.5-4.0); Total Protein 7.9 gm/dl (6.4-8.2); Troponin I 2.34 ng/ml (0-0.045)
[2018-11-10] MEDS ORDERED: ACETAMINOPHEN 325 MG TAB PO PRN (15:50)
[2018-11-10] MEDS ORDERED: HYDROCODONE/ACETAMOPHEN 5/325MG TAB PO PRN (16:01)
[2018-11-10] MEDS ORDERED: MECLIZINE HCL 25 MG TAB PO PRN (16:01)
[2018-11-10] MEDS ORDERED: MAGNESIUM HYDROXIDE SUSP 30 ML UDC PO PRN (16:01)
[2018-11-10] MEDS ORDERED: POLYETHYLENE (MIRALAX) 17 GM PACK PO PRN (16:01)
[2018-11-10] MEDS ORDERED: LORazepam 0.5 MG TAB PO PRN (16:01)
[2018-11-10] MEDS ORDERED: DEXTROSE 50% 50 ML SYRINGE IV PRN (16:10)
[2018-11-10] MEDS ORDERED: GLUCOSE 40% GEL 15 GM TUBE PO PRN (16:10)
[2018-11-10] MEDS ORDERED: GLUCAGON FOR INJ 1 MG VIAL SQ PRN (16:10)
[2018-11-10] MEDS ORDERED: CARBOHYDRATES FOR HYPOGLYCEMIA PO PRN (16:10)
[2018-11-10] MEDS ORDERED: GLUCOSE 10 TABS/TUBE PO PRN (16:10)
[2018-11-10] MEDS ORDERED: IRON SUCROSE 100 MG SCH (16:15)
[2018-11-10 16:24] LABS: INR 1.9 (0.9-1.1); Partial Thromboplastin Ratio 1.3; Partial Thromboplastin Time 35.6 Seconds (21.0-31.0); Prothrombin Time 18.8 Seconds (9.0-12.0)
[2018-11-10] MEDS: INSULIN ASPART 100 UNITS/ML 3 ML PEN SC SCH ×2 (17:19→21:17)
[2018-11-10] MEDS: INSULIN GLARGINE SOLOSTAR 100 UNITS/ML 3 ML PEN SC SCH (17:20)
[2018-11-10] MEDS: MIDODRINE HCL 10 MG TAB PO SCH (17:21)
[2018-11-10] MEDS: SEVELAMER HCL 800 MG TABLET PO SCH (17:21)
[2018-11-10] MEDS ORDERED: HEPARIN SODIUM/DEXTROSE 25,000 UNITS/500 ML BAG IV SCH (17:45)
[2018-11-10] MEDS ORDERED: HEPARIN IV BOLUS 7,000 UNITS in SYRINGE 0 ML IV ONE (17:45)
[2018-11-10 18:23] LABS: INR 2.6 (0.9-1.1); Prothrombin Time 25.1 Seconds (9.0-12.0)
--- NOTE | 2018-11-10 18:24 | Emergency Department Note ---
Entered by Keena Lyon acting as a scribe for Uriel Muir MD History of Present Illness General Chief complaint: Hypotension Time Seen by Provider: 11/10/18 12:00 Source: patient and other (Nurse) History of Present Illness Onset (ago): day(s) 1 Location: chest (Hypotension) Pain Consistency: + intermittent Quality: + other (Hypotension) Exacerbated By: + other (Deep breathing) Associated symptoms: + chest pain, + loss of appetite, + nausea/vomiting (Positive nausea. Negative vomiting.) and + shortness of breath; no headaches Treatments prior to arrival: other (Dialysis) The patient is a 52 year old female who presents to the Emergency Room with complaints of intermittent episodes of hypotension starting 1 day ago. The nurse reports that the patient received her dialysis treatment 1 day ago and began to experience episodes where her blood pressure would drop and the patient would become confused. She states that the patient was hypoxic on room air at the time of arrival as her oxygen saturation was 86%. The patient reports that she has chest pain and that when she takes a deep breath her pain worsens. She states that she has lost her appetite, is constipated and nauseous. She notes that she does not know if she has a fever because she has not recently taken her temperature but does not think so. The patient reports that she receives 3 dialysis treatments per week as she no longer voids urine on her own. She states that she usually sleeps through her treatments and that she slept through her treatment yesterday. She adds that she normally does not wear supplemental oxygen. The patient reports that she regularly takes Aspirin and Plavix. She denies any recent head trauma or head ache. Home Medications Home Medications Medication Instructions Recorded Confirmed Type aspirin 81 mg PO QAM 08/16/18 11/10/18 History atorvastatin 40 mg PO QAM 08/16/18 11/10/18 History nitroglycerin 0.4 mg SUBLINGUAL DIRECTED PRN 08/16/18 11/10/18 History pantoprazole 40 mg PO QAM 08/16/18 11/10/18 History sertraline 25 mg PO QAM 08/16/18 11/10/18 History fluticasone propionate [Flonase 1 spray INTRANASAL QAM 09/19/18 11/10/18 History Allergy Relief] gabapentin 300 mg PO HS 09/19/18 11/10/18 History isosorbide mononitrate 60 mg PO QAM 09/19/18 11/10/18 History levothyroxine 50 mcg PO QAM 09/19/18 11/10/18 History meclizine 25 mg PO TID PRN 09/19/18 11/10/18 History midodrine 10 mg PO TID 09/19/18 11/10/18 History nystatin 1 applic TOPICAL BID 09/19/18 11/10/18 History sennosides-docusate sodium 1 tab PO QDL PRN 09/19/18 11/10/18 History [Senna-S] sevelamer carbonate [Renvela] 3,200 mg PO TIDM 09/19/18 11/10/18 History Fleet Enema 118 ml NV DAILY PRN 10/06/18 11/10/18 History bisacodyl 10 mg NV DAILY PRN 10/06/18 11/10/18 History lorazepam [Ativan] 0.5 mg PO DAILY PRN 10/06/18 11/10/18 History magnesium hydroxide [Milk of 30 ml PO DAILY PRN 10/06/18 11/10/18 History Magnesia] metoprolol tartrate 12.5 mg PO BID 10/06/18 11/10/18 History ondansetron HCl [Zofran] 4 mg PO QID PRN 10/06/18 11/10/18 History polyethylene glycol 3350 [Miralax] 17 g PO QDL PRN 10/06/18 11/10/18 History Aranesp (in polysorbate) 1 dose SUBCUT WK 10/25/18 11/10/18 History Lantus U-100 Insulin 15 unit SUBCUT HS 10/25/18 11/10/18 History Nephrocaps 1 cap PO QAM 10/25/18 11/10/18 History acetaminophen 500 mg PO Q4H PRN 10/25/18 11/10/18 History docusate sodium 100 mg PO BID 10/25/18 11/10/18 History hydrocodone-acetaminophen 1 tab PO Q6H PRN 10/25/18 11/10/18 History lidocaine [Lidoderm] 1 patch TOPICAL QAM 10/25/18 11/10/18 History Venofer See Rx Instructions .ROUTE .COMPLEX 10/27/18 11/10/18 History clopidogrel [Plavix] 75 mg PO QAM 10/27/18 11/10/18 History dextrose [Glucose Gel] See Rx Instructions .ROUTE 10/27/18 11/10/18 History .COMPLEX PRN glucagon HCl See Rx Instructions .ROUTE 10/27/18 11/10/18 History .COMPLEX PRN sodium chloride 0.9 % 1,000 ml IV UD PRN 10/27/18 11/10/18 History heparin (porcine) 5,000 unit SUBCUT Q12H 11/10/18 11/10/18 History insulin aspart U-100 [Novolog 1 sliding scale dose SUBCUT 11/10/18 11/10/18 History U-100 Insulin aspart] USEASDIRECTD Allergies Allergy/AdvReac Type Severity Reaction Status Date / Time adhesive Allergy Mild RASH, SORES Verified 11/10/18 12:48 latex Allergy Mild rash Verified 11/10/18 12:48 No Known Drug Allergies Allergy Mild . Verified 11/10/18 12:48 pollen extracts Allergy Mild WATERY EYES Verified 11/10/18 12:48 Past Med/Surg History Medical History History of right below knee amputation Peripheral vascular disease (Chronic) s/p R SFA angioplasty with 2 stents placed at [facility] on 08/09/18 Arthritis (Chronic) CAD (coronary artery disease) (Chronic) "s/p PCI and BMS to left circumflex 03/2016" Ischemic cardiomyopathy (Chronic) "echo 05/2016 - EF 40-45%, grade I diastolic dysfunction" Carotid stenosis (Chronic) "left ICA" ESRD (end stage renal disease) on dialysis (Chronic) MWF DM type 2 (diabetes mellitus, type 2) (Chronic) GERD (gastroesophageal reflux disease) (Chronic) Allergic rhinitis (Chronic) Morbid obesity (Chronic) Dyslipidemia (Chronic) Tobacco use disorder (Resolved) HTN (hypertension) (Chronic) C. difficile colitis (Resolved) Anemia Ischemia SEVERE RLE GANGRENE MRSA (methicillin resistant Staphylococcus aureus) colonization Nares Peripheral neuropathy Surgical History Hemodialysis access, AV graft (Chronic) "[facility] Dr. 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 and A total of 10 systems reviewed and were otherwise negative Physical Exam Vital Signs Vital Signs - 24 hr 11/10/18 11:43 11/10/18 11:47 11/10/18 11:57 Temperature 37.1 C Temperature Source Oral Sepsis Recent Fever Within 48 Hours No Sepsis New/Unexplained Change in Mental Status No Sepsis Action Taken by Nursing No Action Required Pulse Rate 81 81 79 Pulse Rate [Right Radial] Pulse Rate from SpO2 Sensor 81 81 Pulse Rhythm [Right Radial] Pulse Strength [Right Radial] Respiratory Rate 19 25 H 21 Respiratory Effort / Characteristics Non-Labored Spontaneous Respiratory Depth Normal Respiratory Pattern Regular Blood Pressure 97/68 L 97/68 L Blood Pressure [Right Arm] Blood Pressure Mean 77 77 Blood Pressure Mean [Right Arm] Blood Pressure Position [Right Arm] Pulse Oximetry 94 97 86 L Oxygen Delivery Method Room Air Oxygen Flow Rate 11/10/18 12:00 11/10/18 12:24 11/10/18 12:25 Temperature Temperature Source Sepsis Recent Fever Within 48 Hours Sepsis New/Unexplained Change in Mental Status Sepsis Action Taken by Nursing Pulse Rate 82 80 79 Pulse Rate [Right Radial] Pulse Rate from SpO2 Sensor 82 80 79 Pulse Rhythm [Right Radial] Pulse Strength [Right Radial] Respiratory Rate 26 H 15 22 Respiratory Effort / Characteristics Respiratory Depth Respiratory Pattern Blood Pressure 123/78 Blood Pressure [Right Arm] Blood Pressure Mean 93 Blood Pressure Mean [Right Arm] Blood Pressure Position [Right Arm] Pulse Oximetry 97 98 99 Oxygen Delivery Method Nasal Cannula Oxygen Flow Rate 2 11/10/18 12:30 11/10/18 12:31 11/10/18 13:00 Temperature Temperature Source Sepsis Recent Fever Within 48 Hours Sepsis New/Unexplained Change in Mental Status Sepsis Action Taken by Nursing Pulse Rate 78 77 78 Pulse Rate [Right Radial] Pulse Rate from SpO2 Sensor 77 77 Pulse Rhythm [Right Radial] Pulse Strength [Right Radial] Respiratory Rate 22 18 22 Respiratory Effort / Characteristics Respiratory Depth Respiratory Pattern Blood Pressure 118/74 Blood Pressure [Right Arm] Blood Pressure Mean 88 Blood Pressure Mean [Right Arm] Blood Pressure Position [Right Arm] Pulse Oximetry 99 97 Oxygen Delivery Method Oxygen Flow Rate 11/10/18 13:01 11/10/18 13:02 11/10/18 13:30 Temperature Temperature Source Sepsis Recent Fever Within 48 Hours Sepsis New/Unexplained Change in Mental Status Sepsis Action Taken by Nursing Pulse Rate 78 78 75 Pulse Rate [Right Radial] Pulse Rate from SpO2 Sensor 79 78 76 Pulse Rhythm [Right Radial] Pulse Strength [Right Radial] Respiratory Rate 23 21 22 Respiratory Effort / Characteristics Respiratory Depth Respiratory Pattern Blood Pressure 96/64 L 103/67 Blood Pressure [Right Arm] Blood Pressure Mean 74 79 Blood Pressure Mean [Right Arm] Blood Pressure Position [Right Arm] Pulse Oximetry 100 99 100 Oxygen Delivery Method Oxygen Flow Rate 11/10/18 14:00 11/10/18 14:01 11/10/18 14:30 Temperature Temperature Source Sepsis Recent Fever Within 48 Hours Sepsis New/Unexplained Change in Mental Status Sepsis Action Taken by Nursing Pulse Rate 77 77 75 Pulse Rate [Right Radial] Pulse Rate from SpO2 Sensor 77 Pulse Rhythm [Right Radial] Pulse Strength [Right Radial] Respiratory Rate 24 20 25 H Respiratory Effort / Characteristics Respiratory Depth Respiratory Pattern Blood Pressure 126/66 Blood Pressure [Right Arm] Blood Pressure Mean 86 Blood Pressure Mean [Right Arm] Blood Pressure Position [Right Arm] Pulse Oximetry 99 Oxygen Delivery Method Oxygen Flow Rate 11/10/18 14:31 11/10/18 15:00 11/10/18 15:30 Temperature Temperature Source Sepsis Recent Fever Within 48 Hours Sepsis New/Unexplained Change in Mental Status Sepsis Action Taken by Nursing Pulse Rate 77 77 77 Pulse Rate [Right Radial] Pulse Rate from SpO2 Sensor 78 77 76 Pulse Rhythm [Right Radial] Pulse Strength [Right Radial] Respiratory Rate 18 25 H 22 Respiratory Effort / Characteristics Respiratory Depth Respiratory Pattern Blood Pressure 118/68 117/74 Blood Pressure [Right Arm] Blood Pressure Mean 84 88 Blood Pressure Mean [Right Arm] Blood Pressure Position [Right Arm] Pulse Oximetry 100 98 97 Oxygen Delivery Method Oxygen Flow Rate 11/10/18 15:31 11/10/18 16:22 11/10/18 16:27 Temperature 36.8 C Temperature Source Oral Sepsis Recent Fever Within 48 Hours Sepsis New/Unexplained Change in Mental Status Sepsis Action Taken by Nursing Pulse Rate 77 81 Pulse Rate [Right Radial] 81 Pulse Rate from SpO2 Sensor 78 Pulse Rhythm [Right Radial] Regular Pulse Strength [Right Radial] Normal Respiratory Rate 24 16 Respiratory Effort / Characteristics Non-Labored Spontaneous Non-Labored Spontaneous Respiratory Depth Normal Normal Respiratory Pattern Regular Regular Blood Pressure 116/71 Blood Pressure [Right Arm] 117/74 Blood Pressure Mean 86 Blood Pressure Mean [Right Arm] 88 Blood Pressure Position [Right Arm] Lying Pulse Oximetry 100 98 Oxygen Delivery Method Nasal Cannula Nasal Cannula Oxygen Flow Rate 2 2 11/10/18 17:04 Temperature 36.8 C Temperature Source Oral Sepsis Recent Fever Within 48 Hours Sepsis New/Unexplained Change in Mental Status Sepsis Action Taken by Nursing Pulse Rate Pulse Rate [Right Radial] 80 Pulse Rate from SpO2 Sensor Pulse Rhythm [Right Radial] Regular Pulse Strength [Right Radial] Normal Respiratory Rate 20 Respiratory Effort / Characteristics Non-Labored Spontaneous Respiratory Depth Normal Respiratory Pattern Blood Pressure Blood Pressure [Right Arm] 118/80 Blood Pressure Mean Blood Pressure Mean [Right Arm] 92 Blood Pressure Position [Right Arm] Lying Pulse Oximetry 98 Oxygen Delivery Method Room Air Oxygen Flow Rate GENERAL: Patient is in no acute distress. HEENT: No acute trauma, normocephalic atraumatic. Dry mucous membranes, no nasal congestion, no scleral icterus. NECK: No stridor, no adenopathy, no meningismus, trachea is midline. LUNGS: Clear to auscultation bilaterally, no wheeze, no rhonchi, breath sounds equal. HEART: 2/6 systolic murmur with a regular rate and rhythm. ABDOMEN: Soft, nontender, bowel sounds positive, no hernias, no peritonitis. EXTREMITIES: Right BKA. Sutures in place with minimal erythema to the wound edges. NEUROLOGIC: Oriented x 3, no acute motor or sensory deficits, no focal weakness. SKIN: No rash, no jaundice, no diaphoresis. Course 1201: Past medical records reviewed. I reviewed the patients EMR which showed that the patient recently had a right BKA and was discharged from the hospital to rehabilitation on 11/03/18. The patient was evaluated in room A9B, and a complete history and physical examination were performed. 1400: I reevaluated the patient at this time and we discussed possible admission. 1419: I reviewed the patient's case with Dr. Travis Pina hospitalist. He will evaluate the patient for further management. Consultations Consultation #1: I reviewed the patient's case with Dr. Travis Pina hospitalist. He will evaluate the patient for further management. Time: 14:19 Administered Medications Insulin Aspart (Novolog Flexpen) 0 units SC ACHS JIHAN Stop: 12/10/18 16:29 Last Admin: 11/10/18 17:19 Dose: Not Given Documented by: [id number] Cosigned by: [id number] Insulin Glargine (Lantus Solostar Pen) 5 units SC Q12 JIHAN Stop: 12/10/18 16:59 Last Admin: 11/10/18 17:20 Dose: Not Given Documented by: [id number] Cosigned by: [id number] Midodrine (Proamatine) 10 mg PO TID@0700,1200,1700 JIHAN Stop: 12/10/18 16:59 Last Admin: 11/10/18 17:21 Dose: 10 mg Documented by: [id number] Sevelamer HCl (Renagel) 3,200 mg PO TIDM JIHAN Stop: 12/10/18 16:59 Last Admin: 11/10/18 17:21 Dose: 3,200 mg Documented by: [id number] Discontinued Medications Hydrocodone Bitart/Acetaminophen (Tabiona 5/325) 1 tab PO Q6H PRN PRN Reason: Pain Stop: 11/24/18 16:00 Last Admin: 11/10/18 17:43 Dose: 1 tab Documented by: [id number] Heparin Sodium/Dextrose () 1 ea IV NOW STA; Protocol Stop: 11/10/18 15:38 Last Admin: 11/10/18 17:51 Dose: Not Given Documented by: [id number] Sodium Chloride (Nss 1000ml) 500 mls @ 999 mls/hr IV .Q31M ONE Stop: 11/10/18 12:46 Last Infusion: 11/10/18 13:07 Dose: 0 mls/hr Documented by: [id number] Admin: 11/10/18 12:27 Dose: 999 mls/hr Documented by: [id number] Heparin Sodium (Porcine) 7,000 (units/ Syringe) 7 mls @ 10 mls/min IV NOW ONE Stop: 11/10/18 17:46 Last Admin: 11/10/18 17:40 Dose: 10 mls/min Documented by: [id number] Cosigned by: [id number] Heparin Sodium/Dextrose (Heparin Sodium/Dextrose) 25,000 units in 500 mls @ 30 mls/hr IV .[id number] [facility]; Protocol Stop: 12/10/18 17:44 Last Admin: 11/10/18 17:41 Dose: 1,500 units/hr, 30 mls/hr Documented by: [id number] Cosigned by: [id number] Ondansetron HCl (Zofran) 4 mg IV NOW STA Stop: 11/10/18 12:17 Last Admin: 11/10/18 12:27 Dose: 4 mg Documented by: [id number] Medical Decision Making Differential Diagnosis Differentials include dehydration, electrolyte imbalance, anemia, intracranial bleeding, infection, VT, pneumonia and wound infection among others. Medical Records Attestation: I reviewed the patient's medical records. Home Medications Current Medication List: was personally reviewed by me Laboratory Data Attestation: I reviewed the patient's lab results. Result diagrams: 11/10/18 12:23 11/10/18 12:23 Lab Results 11/10/18 11/10/18 11/10/18 Range/Units 12:23 12:23 12:23 WBC 7.31 (4.8-10.8) K/uL RBC 3.63 L (4.2-5.4) M/uL Hgb 9.3 L (12.0-16.0) g/dL Hct 32.2 L (37-47) % MCV 88.7 (80-100) fL MCH 25.6 (25-34) pg MCHC 28.9 L (32-36) g/dL RDW Std Deviation 63.6 H (36.4-46.3) fL RDW Coeff of Dru 19.7 H (11.5-14.5) % Plt Count 425 H (130-400) K/uL MPV 9.7 (7.4-10.4) fL Immature Gran % (Auto) 0.3 % Neut % (Auto) 69.8 % Lymph % (Auto) 17.6 % [place] % (Auto) 10.5 % Eos % (Auto) 1.4 % Baso % (Auto) 0.4 % Immature Gran # (Auto) 0.02 (0.00-0.02) K/uL Neut # (Auto) 5.10 (1.4-6.5) K/uL Lymph # (Auto) 1.29 (1.2-3.4) K/uL [place] # (Auto) 0.77 H (0.11-0.59) K/uL Eos # (Auto) 0.10 (0-0.5) K/uL Baso # (Auto) 0.03 (0-0.2) K/uL Absolute Nucleated RBC 0.09 H (0-0) K/uL Nucleated RBC % (auto) 1.2 % PT (9.0-12.0) Seconds INR (0.9-1.1) APTT (21.0-31.0) Seconds PTT Ratio VBG pH 7.37 (7.36-7.41) VBG pCO2 55 H (38-50) mmHg VBG pO2 35 mmHg VBG HCO3 31 mmol/L VBG O2 Saturation 63.1 % VBG Base Excess 4.7 mEq/L Barometric Pressure 721.5 mm/Hg Sodium (136-145) mmol/L Potassium (3.5-5.1) mmol/L Chloride (98-107) mmol/L Carbon Dioxide (21-32) mmol/L Anion Gap (3-11) BUN (7-18) mg/dl Creatinine (0.6-1.2) mg/dl Est Cr Clr Drug Dosing ml/min Est GFR ( Amer) Est GFR (Non-Af Amer) BUN/Creatinine Ratio (10-20) Glucose (70-99) mg/dl POC Glucose (70-99) Calcium (8.5-10.1) mg/dl Magnesium (1.8-2.4) mg/dl Total Bilirubin (0.2-1) mg/dl AST (15-37) U/L ALT (12-78) U/L Alkaline Phosphatase (45-117) U/L Ammonia 17.0 (11-32) umol/L Troponin I (0-0.045) ng/ml Total Protein (6.4-8.2) gm/dl Albumin (3.4-5.0) gm/dl Globulin (2.5-4.0) gm/dl Albumin/Globulin Ratio (0.9-2) TSH (0.300-4.500) uIu/ml Specimen Hemolysis 11/10/18 11/10/1811/10/19 Range/Units 12:23 15:58 16:41 WBC (4.8-10.8) K/uL RBC (4.2-5.4) M/uL Hgb (12.0-16.0) g/dL Hct (37-47) % MCV (80-100) fL MCH (25-34) pg MCHC (32-36) g/dL RDW Std Deviation (36.4-46.3) fL RDW Coeff of Dru (11.5-14.5) % Plt Count (130-400) K/uL MPV (7.4-10.4) fL Immature Gran % (Auto) % Neut % (Auto) % Lymph % (Auto) % [place] % (Auto) % Eos % (Auto) % Baso % (Auto) % Immature Gran # (Auto) (0.00-0.02) K/uL Neut # (Auto) (1.4-6.5) K/uL Lymph # (Auto) (1.2-3.4) K/uL [place] # (Auto) (0.11-0.59) K/uL Eos # (Auto) (0-0.5) K/uL Baso # (Auto) (0-0.2) K/uL Absolute Nucleated RBC (0-0) K/uL Nucleated RBC % (auto) % PT 18.8 H (9.0-12.0) Seconds INR 1.9 H (0.9-1.1) APTT 35.6 H (21.0-31.0) Seconds PTT Ratio 1.3 VBG pH (7.36-7.41) VBG pCO2 (38-50) mmHg VBG pO2 mmHg VBG HCO3 mmol/L VBG O2 Saturation % VBG Base Excess mEq/L Barometric Pressure mm/Hg Sodium 134 L (136-145) mmol/L Potassium 4.5 (3.5-5.1) mmol/L Chloride 96 L (98-107) mmol/L Carbon Dioxide 29 (21-32) mmol/L Anion Gap 9.0 (3-11) BUN 30 H (7-18) mg/dl Creatinine 3.86 H (0.6-1.2) mg/dl Est Cr Clr Drug Dosing 22.5 ml/min Est GFR ( Amer) 14.8 Est GFR (Non-Af Amer) 12.7 BUN/Creatinine Ratio 7.8 L (10-20) Glucose 72 (70-99) mg/dl POC Glucose 66 L* (70-99) Calcium 9.7 (8.5-10.1) mg/dl Magnesium 2.1 (1.8-2.4) mg/dl Total Bilirubin 0.8 (0.2-1) mg/dl AST 609 H (15-37) U/L ALT 281 H (12-78) U/L Alkaline Phosphatase 116 (45-117) U/L Ammonia (11-32) umol/L Troponin I 2.340 H* (0-0.045) ng/ml Total Protein 7.9 (6.4-8.2) gm/dl Albumin 2.0 L (3.4-5.0) gm/dl Globulin 5.9 H (2.5-4.0) gm/dl Albumin/Globulin Ratio 0.3 L (0.9-2) TSH 3.230 (0.300-4.500) uIu/ml Specimen Hemolysis 11/10/18 11/10/18 Range/Units 16:42 18:00 WBC (4.8-10.8) K/uL RBC (4.2-5.4) M/uL Hgb (12.0-16.0) g/dL Hct (37-47) % MCV (80-100) fL MCH (25-34) pg MCHC (32-36) g/dL RDW Std Deviation (36.4-46.3) fL RDW Coeff of Dru (11.5-14.5) % Plt Count (130-400) K/uL MPV (7.4-10.4) fL Immature Gran % (Auto) % Neut % (Auto) % Lymph % (Auto) % [place] % (Auto) % Eos % (Auto) % Baso % (Auto) % Immature Gran # (Auto) (0.00-0.02) K/uL Neut # (Auto) (1.4-6.5) K/uL Lymph # (Auto) (1.2-3.4) K/uL [place] # (Auto) (0.11-0.59) K/uL Eos # (Auto) (0-0.5) K/uL Baso # (Auto) (0-0.2) K/uL Absolute Nucleated RBC (0-0) K/uL Nucleated RBC % (auto) % PT 25.1 H (9.0-12.0) Seconds INR 2.6 H (0.9-1.1) APTT (21.0-31.0) Seconds PTT Ratio VBG pH (7.36-7.41) VBG pCO2 (38-50) mmHg VBG pO2 mmHg VBG HCO3 mmol/L VBG O2 Saturation % VBG Base Excess mEq/L Barometric Pressure mm/Hg Sodium (136-145) mmol/L Potassium (3.5-5.1) mmol/L Chloride (98-107) mmol/L Carbon Dioxide (21-32) mmol/L Anion Gap (3-11) BUN (7-18) mg/dl Creatinine (0.6-1.2) mg/dl Est Cr Clr Drug Dosing ml/min Est GFR ( Amer) Est GFR (Non-Af Amer) BUN/Creatinine Ratio (10-20) Glucose (70-99) mg/dl POC Glucose 71 (70-99) Calcium (8.5-10.1) mg/dl Magnesium (1.8-2.4) mg/dl Total Bilirubin (0.2-1) mg/dl AST (15-37) U/L ALT (12-78) U/L Alkaline Phosphatase (45-117) U/L Ammonia (11-32) umol/L Troponin I (0-0.045) ng/ml Total Protein (6.4-8.2) gm/dl Albumin (3.4-5.0) gm/dl Globulin (2.5-4.0) gm/dl Albumin/Globulin Ratio (0.9-2) TSH (0.300-4.500) uIu/ml Specimen Hemolysis Imaging Data Radiologist's Impression: Radiology results as stated below per my review and the radiologist's interpretation: CT head/brain wo con CT DOSE: 537.48 mGy.cm HISTORY: Mental status change confusion TECHNIQUE: Multiaxial CT images of the head were performed without the use of intravenous contrast. A dose lowering technique was utilized adhering to the principles of ALARA. Comparison: None. Findings: The paranasal sinuses and mastoid air cells are clear. The calvarium and skull base are intact. The ventricles and sulci are within normal limits. There is no mass, hematoma, midline shift, or acute infarct. Impression: No acute intracranial abnormality. The above report was generated using voice recognition software. It may contain grammatical, syntax or spelling errors. Electronically signed by: Edmundo Lam M.D. 11/10/2018 12:56 PM XR chest 1V portable CLINICAL HISTORY: weakness dyspnea COMPARISON STUDY: 10/27/2018 FINDINGS: Moderate cardiomegaly. Prominent pulmonary vasculature. Probable small left effusion. IMPRESSION: Developing congestive heart failure with a small left effusion. The above report was generated using voice recognition software. It may contain grammatical, syntax or spelling errors. Electronically signed by: Edmundo Lam M.D. 11/10/2018 1:05 PM ECG Data Attestation: I personally reviewed and interpreted this ECG as follows: Indication: chest pain Rate (beats per minute): 80 Rhythm: normal sinus Findings: + other (Non-specific ST changes diffusely.); no PVC Comparison ECG Date: from (09/19/18) Change: no significant change Blood Pressure Blood Pressure Findings: Low blood pressure Blood Pressure Disposition: further management by hospitalist [facility] Narrative There is no leukocytosis. The patient is anemic but this is baseline looking back at previous testing. VBG does not show acidosis, there was a very mild CO2 retention. Creatinine is elevated at 3.86, consistent with her dialysis need. No significant electrolyte abnormality requiring correction. There were some liver enzyme elevations of unknown significance, the bilirubin was not elevated. Ammonia level was not elevated. The patient appeared to be in a euthyroid state. EKG showed a sinus rhythm, no acute ischemia. EKG looks similar to previous EKGs. Cardiac troponin was elevated, this could be mismatch or could be consistent with cardiac injury/strain. Chest film did not show any pneumonia. There was no worrisome CHF. Brain CT shows no acute bleed or mass-effect. The patient received IV saline, she was given IV Zofran for nausea. Her blood pressure is improved, she appears to be resting fairly comfortably. The patient presents with a change in mental status and some hypotension. I suspect she is dehydrated. Possibly, excessive fluid was taken off with dialysis and she has not kept up. With the elevated troponin though, further workup is warranted. I do think she needs the troponins trended. Clinically, I do not find evidence for cellulitis or infection to her right below-knee amputation. I did speak to the patient and case resource manager. The on-call hospitalist was consulted. Hospitalization does appear warranted. Impression & Plan Hypotension, Confusion, Elevated troponin Discharge Plan Visit Data *Final* Discharge Date/Time: 11/10/18 15:43 Chief Complaint: Hypotension ED Provider: Uriel Muir Discharge Problem: Hypotension, Confusion, Elevated troponin Patient Disposition: Admitted As Inpatient Discharge Instructions Interventions: ED Discharge Assessment Last Done: 11/10/18 15:43 Discharge Problem: Hypotension Qualifiers: Hypotension type: unspecified hypotension type Qualified Code(s): I95.9 - Hypotension, unspecified The scribe's documentation has been prepared under my direction and personally reviewed by me in its entirety. I confirm that the note above accurately reflects all work, treatment, procedures, and medical decision making performed by me.
--- NOTE | 2018-11-10 18:32 | Cardiology Consultation ---
Date of Consultation November 10, 2018 Assessment & Plan (1) Elevated troponin: 2. Coronary artery disease post prior PCI to circumflex last 02/2018, known chronically occluded RCA 3. Ischemic cardiomyopathy, EF 35% 4. 2 weeks postop right BKA 5. End-stage renal disease on HD 6. PAD post right SFA stenting 7. Type 2 diabetes 8. Pleuritic chest pain Patient here with increased shortness of breath, pleuritic chest pain over the last several days. Found to have newly elevated troponin. EKG unchanged. At present patient is chest pain free, hemodynamically and electrically stable and no indication for urgent cardiac catheterization. For now would continue to monitor on telemetry, trend troponin. Agree with repeat echocardiogram and ongoing workup for noncardiac causes of patient's current presentation including PE. Continue home dual antiplatelet therapy. Continue home beta-silvia, long-acting nitrate. Reasonable to start heparin infusion. Would favor continued medical management of her CAD unless worsening symptoms, new significant wall motion abnormalities on echo. We will continue to follow. History of Present Illness Attending Physician: Margarita Robles MD History of Present Illness Ms. Gilbert is a pleasant 52-year-old woman known to me from prior hospitalizations readmitted today from rehab facility in the setting of worsening shortness of breath, nausea following recent hospitalization for right BKA. Prior cardiac history remarkable for PCI with bare-metal stent to circumflex in March 2016 in the setting of preoperative evaluation, new LV dysfunction. At that time also noted to have a chronically occluded RCA. In February 2018 returned with an NSTEMI and underwent deployment of drug-eluting stent inside mid circumflex stent. Patient with known moderate to severe LV dysfunction EF around 35% with inferior, inferolateral inferoseptal wall motion abnormality. More recently patient is been dealing with infected, ischemic/diabetic foot ulcerations for which initially underwent SFA endovascular revascularization at [facility] in July 2018 followed by right transmetatarsal amputation in August 2018 and more recently right BKA on 10/27/2018. Patient states that initially was doing fine at rehab but over the last days has been increasingly fatigued, short of breath and hypoxemic with minimal exertion. Has also noted pleuritic chest pain and increased nausea with decreased appetite. Upon arrival here chest pain-free. Initial troponin elevated at 2.34. EKG unchanged. Chest x-ray remarkable for prominent point vasculature and small left effusion. MEDICAL HISTORY: 1. Coronary artery disease, status post bare-metal stent to circumflex 2015.2. End-stage renal disease, on hemodialysis.3. Diabetes.4. Hyperlipidemia.5. Severe carotid artery disease,status post endarterectomy .6. Lower extremity diabetic ulcers.7. GERD.8. Morbid obesity.9. Prior osteomyelitis.10. Prior C. diff infection.11. Prior upper GI bleed. 12. LE PAD post RT SFA stenting, 13. RT BKA Allergies Allergy/AdvReac Type Severity Reaction Status Date / Time adhesive Allergy Mild RASH, SORES Verified 11/10/18 12:48 latex Allergy Mild rash Verified 11/10/18 12:48 No Known Drug Allergies Allergy Mild . Verified 11/10/18 12:48 pollen extracts Allergy Mild WATERY EYES Verified 11/10/18 12:48 Home Medications Home Medications Medication Instructions Recorded Confirmed Type aspirin 81 mg PO QAM 08/16/18 11/10/18 History atorvastatin 40 mg PO QAM 08/16/18 11/10/18 History nitroglycerin 0.4 mg SUBLINGUAL DIRECTED PRN 08/16/18 11/10/18 History pantoprazole 40 mg PO QAM 08/16/18 11/10/18 History sertraline 25 mg PO QAM 08/16/18 11/10/18 History fluticasone propionate [Flonase 1 spray INTRANASAL QAM 09/19/18 11/10/18 History Allergy Relief] gabapentin 300 mg PO HS 09/19/18 11/10/18 History isosorbide mononitrate 60 mg PO QAM 09/19/18 11/10/18 History levothyroxine 50 mcg PO QAM 09/19/18 11/10/18 History meclizine 25 mg PO TID PRN 09/19/18 11/10/18 History midodrine 10 mg PO TID 09/19/18 11/10/18 History nystatin 1 applic TOPICAL BID 09/19/18 11/10/18 History sennosides-docusate sodium 1 tab PO QDL PRN 09/19/18 11/10/18 History [Senna-S] sevelamer carbonate [Renvela] 3,200 mg PO TIDM 09/19/18 11/10/18 History Fleet Enema 118 ml MN DAILY PRN 10/06/18 11/10/18 History bisacodyl 10 mg MN DAILY PRN 10/06/18 11/10/18 History lorazepam [Ativan] 0.5 mg PO DAILY PRN 10/06/18 11/10/18 History magnesium hydroxide [Milk of 30 ml PO DAILY PRN 10/06/18 11/10/18 History Magnesia] metoprolol tartrate 12.5 mg PO BID 10/06/18 11/10/18 History ondansetron HCl [Zofran] 4 mg PO QID PRN 10/06/18 11/10/18 History polyethylene glycol 3350 [Miralax] 17 g PO QDL PRN 10/06/18 11/10/18 History Aranesp (in polysorbate) 1 dose SUBCUT WK 10/25/18 11/10/18 History Lantus U-100 Insulin 15 unit SUBCUT HS 10/25/18 11/10/18 History Nephrocaps 1 cap PO QAM 10/25/18 11/10/18 History acetaminophen 500 mg PO Q4H PRN 10/25/18 11/10/18 History docusate sodium 100 mg PO BID 10/25/18 11/10/18 History hydrocodone-acetaminophen 1 tab PO Q6H PRN 10/25/18 11/10/18 History lidocaine [Lidoderm] 1 patch TOPICAL QAM 10/25/18 11/10/18 History Venofer See Rx Instructions .ROUTE .COMPLEX 10/27/18 11/10/18 History clopidogrel [Plavix] 75 mg PO QAM 10/27/18 11/10/18 History dextrose [Glucose Gel] See Rx Instructions .ROUTE 10/27/18 11/10/18 History .COMPLEX PRN glucagon HCl See Rx Instructions .ROUTE 10/27/18 11/10/18 History .COMPLEX PRN sodium chloride 0.9 % 1,000 ml IV UD PRN 10/27/18 11/10/18 History heparin (porcine) 5,000 unit SUBCUT Q12H 11/10/18 11/10/18 History insulin aspart U-100 [Novolog 1 sliding scale dose SUBCUT 11/10/18 11/10/18 History U-100 Insulin aspart] USEASDIRECTD Patient History Family History Other Diabetes Heart disease Social History Communication Ability: Effective Beliefs That Will Affect Care: None marital status: / Current Living Situation: Rehab Other Information That Helps Us Care for You: No Feels Safe at Home: Yes Safety Concerns: Feels Safe At This Time Smoking Status: Former smoker Hx Alcohol Use: Yes Hx Substance Use: No Review of Systems 10 point review of systems was completed and was otherwise negative unless stated in HPI Physical Exam Vital Signs (Past 24 Hours): Last Vital Signs Temp 36.8 C 11/10/18 17:04 Pulse 80 11/10/18 17:04 Resp 20 11/10/18 17:04 BP 118/80 11/10/18 17:04 Pulse Ox 98 11/10/18 17:04 Physical Exam: General: Comfortable, no acute distress Eyes: Sclerae anicteric, extraocular movements intact HENT: Oropharynx clear mucous membranes moist Neck: Well-healed left carotid enterectomy scar Lungs: Clear to auscultation with minimally decreased breath sounds in the left Cardiac: Regular rate and rhythm, no murmurs, rubs or gallops. Vascular: Diminished radial pulses bilaterally Abdomen: Soft, nontender, nondistended, positive bowel sounds. Extremities: Post right lower extremity BKA, incision with minimal surrounding erythema, petra in place. Left lower extremity ulcerations dressed, leg appears well-perfused, DP/PT pulses diminished Neuro: Nonfocal Psych: Alert and oriented
[2018-11-10 18:58] LABS: Hepatitis B Surface Antigen Neg (Neg)
[2018-11-10 19:27] LABS: Hepatitis C IgG 13Yrs+Old_Rflx Neg (Neg)
--- NOTE | 2018-11-10 19:33 | Nephrology Consultation ---
Date of Consultation November 10, 2018 Assessment & Plan (1) ESRD (end stage renal disease) on dialysis: plan dialysis tentatively for tomorrow depending on cardiac and other clinical status -she does have developing HF on XRay so will likely need some gentle fluid removal tomorrow; sats have improved; she had 1/2L NS i ER and for now sbp improved as well -cont BB and midodrine -f/u cardiology recommendations -she had been getting IV iron and epo w/ HD which will continue; binders also continued Present on Admission?: Yes History of Present Illness Reason for Consultation: ESRD on dialysis Requesting Physician: Dr Robles Attending Physician: Margarita Robles MD History of Present Illness 52 y/o F whom I'm asked to see for ESRD/ dialysis care after she was admitted today from rehab with pleuritic chest pain and hypotension. She has significant PAD and was in rehab after undergoing R BKA here on 10/30. Her last dialysis was yesterday; it was however mostly for clearance since even then her sbp were in 60-70s w/o MS changes or other sx and despite med adjustments. Today her hypotension persisted and she began to develop intermittent confusion and hypoxia Allergies Allergy/AdvReac Type Severity Reaction Status Date / Time adhesive Allergy Mild RASH, SORES Verified 11/10/18 12:48 latex Allergy Mild rash Verified 11/10/18 12:48 No Known Drug Allergies Allergy Mild . Verified 11/10/18 12:48 pollen extracts Allergy Mild WATERY EYES Verified 11/10/18 12:48 Home Medications Home Medications Medication Instructions Recorded Confirmed Type aspirin 81 mg PO QAM 08/16/18 11/10/18 History atorvastatin 40 mg PO QAM 08/16/18 11/10/18 History nitroglycerin 0.4 mg SUBLINGUAL DIRECTED PRN 08/16/18 11/10/18 History pantoprazole 40 mg PO QAM 08/16/18 11/10/18 History sertraline 25 mg PO QAM 08/16/18 11/10/18 History fluticasone propionate [Flonase 1 spray INTRANASAL QAM 09/19/18 11/10/18 History Allergy Relief] gabapentin 300 mg PO HS 09/19/18 11/10/18 History isosorbide mononitrate 60 mg PO QAM 09/19/18 11/10/18 History levothyroxine 50 mcg PO QAM 09/19/18 11/10/18 History meclizine 25 mg PO TID PRN 09/19/18 11/10/18 History midodrine 10 mg PO TID 09/19/18 11/10/18 History nystatin 1 applic TOPICAL BID 09/19/18 11/10/18 History sennosides-docusate sodium 1 tab PO QDL PRN 09/19/18 11/10/18 History [Senna-S] sevelamer carbonate [Renvela] 3,200 mg PO TIDM 09/19/18 11/10/18 History Fleet Enema 118 ml NM DAILY PRN 10/06/18 11/10/18 History bisacodyl 10 mg NM DAILY PRN 10/06/18 11/10/18 History lorazepam [Ativan] 0.5 mg PO DAILY PRN 10/06/18 11/10/18 History magnesium hydroxide [Milk of 30 ml PO DAILY PRN 10/06/18 11/10/18 History Magnesia] metoprolol tartrate 12.5 mg PO BID 10/06/18 11/10/18 History ondansetron HCl [Zofran] 4 mg PO QID PRN 10/06/18 11/10/18 History polyethylene glycol 3350 [Miralax] 17 g PO QDL PRN 10/06/18 11/10/18 History Aranesp (in polysorbate) 1 dose SUBCUT WK 10/25/18 11/10/18 History Lantus U-100 Insulin 15 unit SUBCUT HS 10/25/18 11/10/18 History Nephrocaps 1 cap PO QAM 10/25/18 11/10/18 History acetaminophen 500 mg PO Q4H PRN 10/25/18 11/10/18 History docusate sodium 100 mg PO BID 10/25/18 11/10/18 History hydrocodone-acetaminophen 1 tab PO Q6H PRN 10/25/18 11/10/18 History lidocaine [Lidoderm] 1 patch TOPICAL QAM 10/25/18 11/10/18 History Venofer See Rx Instructions .ROUTE .COMPLEX 10/27/18 11/10/18 History clopidogrel [Plavix] 75 mg PO QAM 10/27/18 11/10/18 History dextrose [Glucose Gel] See Rx Instructions .ROUTE 10/27/18 11/10/18 History .COMPLEX PRN glucagon HCl See Rx Instructions .ROUTE 10/27/18 11/10/18 History .COMPLEX PRN sodium chloride 0.9 % 1,000 ml IV UD PRN 10/27/18 11/10/18 History heparin (porcine) 5,000 unit SUBCUT Q12H 11/10/18 11/10/18 History insulin aspart U-100 [Novolog 1 sliding scale dose SUBCUT 11/10/18 11/10/18 History U-100 Insulin aspart] USEASDIRECTD Patient History Medical History History of right below knee amputation Peripheral vascular disease (Chronic) s/p R SFA angioplasty with 2 stents placed at [facility] [place] on 08/09/18 Arthritis (Chronic) CAD (coronary artery disease) (Chronic) "s/p PCI and BMS to left circumflex 03/2016" Ischemic cardiomyopathy (Chronic) "echo 05/2016 - EF 40-45%, grade I diastolic dysfunction" Carotid stenosis (Chronic) "left ICA" ESRD (end stage renal disease) on dialysis (Chronic) MWF DM type 2 (diabetes mellitus, type 2) (Chronic) GERD (gastroesophageal reflux disease) (Chronic) Allergic rhinitis (Chronic) Morbid obesity (Chronic) Dyslipidemia (Chronic) Tobacco use disorder (Resolved) HTN (hypertension) (Chronic) C. 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 Jones 08/25/12" History of left-sided carotid endarterectomy (Resolved) H/O vascular surgery STENTING OF VESSELS RLKaushik/GLENNY History of amputation RT FOOT TRANSMETARSAL AMPUTATION S/P debridement WOUND VAC RLE Family History Other Diabetes Heart disease Social History Bun Panner Required: No Beliefs That Will Affect Care: None marital status: / Current Living Situation: Rehab Other Information That Helps Us Care for You: No Feels Safe at Home: Yes Safety Concerns: Feels Safe At This Time Smoking Status: Former smoker Hx Alcohol Use: Yes Hx Substance Use: No Review of Systems Constitutional: + fatigue and + weakness Eyes: no worsening vision Ear, Nose, Mouth, Throat: no dry mouth Respiratory: as per Subjective / HPI, + pain on inspiration and + pain with cough Cardiovascular: as per Subjective / HPI; no dyspnea, no palpitations and no edema Gastrointestinal: + abdominal pain (some RUQ and R chest); no vomiting and no change in bowel habits anuric Musculoskeletal: + muscle weakness pain at stump site, at sores on toe/finger Integumentary: + non-healing lesions Neurologic: + generalized weakness; no confusion and no memory loss Psychiatric: + depression Endocrine: + fatigue Hematologic / Lymphatic: no easy bleeding Physical Exam Vital Signs (Past 24 Hours): Last Vital Signs Temp 36.8 C 11/10/18 17:04 Pulse 80 11/10/18 17:04 Resp 20 11/10/18 17:04 BP 118/80 11/10/18 17:04 Pulse Ox 98 11/10/18 17:04 Constitutional: well developed, well nourished, + obese, cooperative and comfortable on ra Eyes: EOM intact bilaterally ENMT: Ears: no external ear abnormality Nose: no external nose abnormality Mouth: + dry oral mucous membranes Neck: no nuchal rigidity Respiratory: normal respiratory effort Auscultation: + diminished lung sounds Cardiovascular: Rate/Rhythm: regular rate and regular rhythm Extremities: + AV fistula (+ t/b); no edema Gastrointestinal (Abdomen): Inspection/Auscultation: normal bowel sounds Percussion/Palpation: + abdomen tender (RUQ TTP to moderate palpation ) and abdomen soft; no guarding and no fluid wave Musculoskeletal: Extremities: strength 5/5 throughout Skin: no rashes, warm and dry wounds Neurologic: stein, fluent speech, no tremor Psychiatric: A+Ox3, euthymic affect Results & Data Laboratory Results Abnormal lab results 11/10/18 11/10/18 11/10/18 Range/Units 12:23 12:23 12:23 RBC 3.63 L (4.2-5.4) M/uL Hgb 9.3 L (12.0-16.0) g/dL Hct 32.2 L (37-47) % MCHC 28.9 L (32-36) g/dL RDW Std Deviation 63.6 H (36.4-46.3) fL RDW Coeff of Dru 19.7 H (11.5-14.5) % Plt Count 425 H (130-400) K/uL [place] # (Auto) 0.77 H (0.11-0.59) K/uL Absolute Nucleated RBC 0.09 H (0-0) K/uL PT (9.0-12.0) Seconds INR (0.9-1.1) APTT (21.0-31.0) Seconds VBG pCO2 55 H (38-50) mmHg Sodium 134 L (136-145) mmol/L Chloride 96 L (98-107) mmol/L BUN 30 H (7-18) mg/dl Creatinine 3.86 H (0.6-1.2) mg/dl BUN/Creatinine Ratio 7.8 L (10-20) POC Glucose (70-99) AST 609 H (15-37) U/L ALT 281 H (12-78) U/L Troponin I 2.340 H* (0-0.045) ng/ml Albumin 2.0 L (3.4-5.0) gm/dl Globulin 5.9 H (2.5-4.0) gm/dl Albumin/Globulin Ratio 0.3 L (0.9-2) Nasal Screen MRSA (PCR) (Negative) 11/10/18 11/10/18 11/10/18 Range/Units 15:58 16:41 17:30 RBC (4.2-5.4) M/uL Hgb (12.0-16.0) g/dL Hct (37-47) % MCHC (32-36) g/dL RDW Std Deviation (36.4-46.3) fL RDW Coeff of Dru (11.5-14.5) % Plt Count (130-400) K/uL [place] # (Auto) (0.11-0.59) K/uL Absolute Nucleated RBC (0-0) K/uL PT 18.8 H (9.0-12.0) Seconds INR 1.9 H (0.9-1.1) APTT 35.6 H (21.0-31.0) Seconds VBG pCO2 (38-50) mmHg Sodium (136-145) mmol/L Chloride (98-107) mmol/L BUN (7-18) mg/dl Creatinine (0.6-1.2) mg/dl BUN/Creatinine Ratio (10-20) POC Glucose 66 L* (70-99) AST (15-37) U/L ALT (12-78) U/L Troponin I (0-0.045) ng/ml Albumin (3.4-5.0) gm/dl Globulin (2.5-4.0) gm/dl Albumin/Globulin Ratio (0.9-2) Nasal Screen MRSA (PCR) Positive A (Negative) 11/10/18 Range/Units 18:00 RBC (4.2-5.4) M/uL Hgb (12.0-16.0) g/dL Hct (37-47) % MCHC (32-36) g/dL RDW Std Deviation (36.4-46.3) fL RDW Coeff of Dru (11.5-14.5) % Plt Count (130-400) K/uL [place] # (Auto) (0.11-0.59) K/uL Absolute Nucleated RBC (0-0) K/uL PT 25.1 H (9.0-12.0) Seconds INR 2.6 H (0.9-1.1) APTT (21.0-31.0) Seconds VBG pCO2 (38-50) mmHg Sodium (136-145) mmol/L Chloride (98-107) mmol/L BUN (7-18) mg/dl Creatinine (0.6-1.2) mg/dl BUN/Creatinine Ratio (10-20) POC Glucose (70-99) AST (15-37) U/L ALT (12-78) U/L Troponin I (0-0.045) ng/ml Albumin (3.4-5.0) gm/dl Globulin (2.5-4.0) gm/dl Albumin/Globulin Ratio (0.9-2) Nasal Screen MRSA (PCR) (Negative) Diagnostic Findings cxr IMPRESSION: Developing congestive heart failure with a small left effusion. head ct no acute ic process
[2018-11-10] MEDS ORDERED: AcetylCYSTEINE IV 21 HR REGIMEN (>40KG) IV STA (19:34)
[2018-11-10 20:14] LABS: Albumin Level 1.9 gm/dl (3.4-5.0); Bilirubin Direct 0.5 mg/dl (0-0.2); Bilirubin,Total 0.8 mg/dl (0.2-1); Total Protein 7.4 gm/dl (6.4-8.2); Troponin I 2.56 ng/ml (0-0.045)
[2018-11-10 20:27] LABS: Hepatitis B Surface Antigen Neg (Neg)
--- NOTE | 2018-11-10 20:36 | History & Physical Report ---
Date of Service November 10, 2018 Assessment & Plan (1) Hypotension: -Admit to telemetry -Patient sent from [facility] for evaluation of hypotension and hypoxia -Per Dr. Wood, patient was significantly hypotensive with dialysis yesterday -In the ED, initial BP 97/68 which improved with 500 cc NSS -Possibly due to hypovolemia from recent poor p.o. intake -Does not appear septic, Hgb stable -Continue to monitor BPs -Does have history of orthostatic hypotension, continue chronic midodrine (2) Hypoxia: -During my exam, I placed patient on room air and she desaturated to 88% which improved with 2 L of oxygen via nasal cannula -Etiology unclear, CXR shows developing congestion however patient does not appear to be overtly volume overloaded; no infiltrate noted on CXR -? Due to atelectasis, patient reports she has been unable to take a deep breath due to midsternal chest pain -start incentive spirometry -Also consider PE; per Dr. Wood, CTA chest is okay to obtain -holding on CTA chest for now due to coagulopathy as discussed below (3) Elevated troponin: (4) CAD (coronary artery disease): (5) Ischemic cardiomyopathy: -Troponin on presentation 2.34, EKG does not show acute ST changes -Patient reporting chest pain however seems to be musculoskeletal in nature and not similar to anginal equivalent in the past -History of CAD, S/P KAROLINE to mid circumflex 02/2018 and BMS to circumflex 2015, chronic RCA occlusion -Case discussed with Dr. Venegas who advised initiating heparin drip however unable to at this time due to coagulopathy -Continue cycle cardiac enzymes, check resting echo -Continue aspirin and Plavix; beta-silvia and nitrate as BP allows; holding statin due to elevated LFTs (6) Abnormal LFTs: (7) Coagulopathy: -On admission, patient found to have elevated AST and ALT -Initial INR 1.9 with repeat being 2.6 -No history of hepatic disease in the past -? Shock liver from hypotension yesterday -GI consult, case discussed with Dr. Eduardo who advises obtaining hepatitis panel, CMV, EBV, HSV; trend LFTs and coags; start Mucomyst drip per protocol -Liver ultrasound with portal vein Doppler -Low threshold for transfer to tertiary center if LFTs or coags worsen or if patient developes altered mental status (8) History of right below knee amputation: -S/P right BKA on 10/[address] Jones -Incisional petra are intact, wound appears to be healing well, no signs of infection (9) Anemia associated with chronic renal failure: -Hgb baseline (10) Eschar of finger: -Left second finger -Following with Dr. Pryor -No signs of active infection (11) ESRD (end stage renal disease) on dialysis: -Nephrology consult for dialysis orders -Continue routine renal medications (12) DM type 2 (diabetes mellitus, type 2): -Hgb A1c 7.3 08/2018 -Lantus and NovoLog per protocol while hospitalized (13) GERD (gastroesophageal reflux disease): -Continue PPI (14) DVT prophylaxis: -None needed at this time, INR 2.6 History of Present Illness Chief Complaint: Hypotension, hypoxia Primary Care Provider: Tamy Becerra 52-year-old female who was sent to the ED from [facility] for evaluation of hypotension and hypoxia. Patient was recently admitted to [facility] 10/27 through 11/03 when she underwent a right BKA. Patient was transferred to [facility] for rehab needs. Patient reports that she had been doing well until last week. She reports that while at therapy, she was having some midsternal chest pain. She reports that she felt as though she "pulled something" and that this pain was not similar to her prior anginal equivalents. She reports pain has been worse with movement and also with a deep breath. Over the past couple of days, patient reports she is felt generally weak, nauseous with poor appetite. Yesterday with dialysis, she was reportedly hypotensive. She also has developed oxygen requirement of 2 L. Patient denies feeling short of breath however does report she has been pretty much bedbound for the past couple of days and has not been exerting herself. She reports feeling lightheaded with sitting up but denies any syncopal events. No abdominal pain, vomiting, or diarrhea. She denies fevers and chills. She does continue to make a small amount urine. In the ED, patient was mildly hypotensive with systolic blood pressures in the 90s. She received 500 cc NSS with improvement in BP. During my exam, I placed patient on room air and she became hypoxic 88%, this improved when I reapplied oxygen 2 L via nasal cannula. Labs show an elevated troponin at 2.34, EKG is negative for acute ST changes. ALT is 281 and AST 608. Allergies Allergy/AdvReac Type Severity Reaction Status Date / Time adhesive Allergy Mild RASH, SORES Verified 11/10/18 12:48 latex Allergy Mild rash Verified 11/10/18 12:48 No Known Drug Allergies Allergy Mild . Verified 11/10/18 12:48 pollen extracts Allergy Mild WATERY EYES Verified 11/10/18 12:48 Home Medications Home Medications Medication Instructions Recorded Confirmed Type aspirin 81 mg PO QAM 08/16/18 11/10/18 History atorvastatin 40 mg PO QAM 08/16/18 11/10/18 History nitroglycerin 0.4 mg SUBLINGUAL DIRECTED PRN 08/16/18 11/10/18 History pantoprazole 40 mg PO QAM 08/16/18 11/10/18 History sertraline 25 mg PO QAM 08/16/18 11/10/18 History fluticasone propionate [Flonase 1 spray INTRANASAL QAM 09/19/18 11/10/18 History Allergy Relief] gabapentin 300 mg PO HS 09/19/18 11/10/18 History isosorbide mononitrate 60 mg PO QAM 09/19/18 11/10/18 History levothyroxine 50 mcg PO QAM 09/19/18 11/10/18 History meclizine 25 mg PO TID PRN 09/19/18 11/10/18 History midodrine 10 mg PO TID 09/19/18 11/10/18 History nystatin 1 applic TOPICAL BID 09/19/18 11/10/18 History sennosides-docusate sodium 1 tab PO QDL PRN 09/19/18 11/10/18 History [Senna-S] sevelamer carbonate [Renvela] 3,200 mg PO TIDM 09/19/18 11/10/18 History Fleet Enema 118 ml WV DAILY PRN 10/06/18 11/10/18 History bisacodyl 10 mg WV DAILY PRN 10/06/18 11/10/18 History lorazepam [Ativan] 0.5 mg PO DAILY PRN 10/06/18 11/10/18 History magnesium hydroxide [Milk of 30 ml PO DAILY PRN 10/06/18 11/10/18 History Magnesia] metoprolol tartrate 12.5 mg PO BID 10/06/18 11/10/18 History ondansetron HCl [Zofran] 4 mg PO QID PRN 10/06/18 11/10/18 History polyethylene glycol 3350 [Miralax] 17 g PO QDL PRN 10/06/18 11/10/18 History Aranesp (in polysorbate) 1 dose SUBCUT WK 10/25/18 11/10/18 History Lantus U-100 Insulin 15 unit SUBCUT HS 10/25/18 11/10/18 History Nephrocaps 1 cap PO QAM 10/25/18 11/10/18 History acetaminophen 500 mg PO Q4H PRN 10/25/18 11/10/18 History docusate sodium 100 mg PO BID 10/25/18 11/10/18 History hydrocodone-acetaminophen 1 tab PO Q6H PRN 10/25/18 11/10/18 History lidocaine [Lidoderm] 1 patch TOPICAL QAM 10/25/18 11/10/18 History Venofer See Rx Instructions .ROUTE .COMPLEX 10/27/18 11/10/18 History clopidogrel [Plavix] 75 mg PO QAM 10/27/18 11/10/18 History dextrose [Glucose Gel] See Rx Instructions .ROUTE 10/27/18 11/10/18 History .COMPLEX PRN glucagon HCl See Rx Instructions .ROUTE 10/27/18 11/10/18 History .COMPLEX PRN sodium chloride 0.9 % 1,000 ml IV UD PRN 10/27/18 11/10/18 History heparin (porcine) 5,000 unit SUBCUT Q12H 11/10/18 11/10/18 History insulin aspart U-100 [Novolog 1 sliding scale dose SUBCUT 11/10/18 11/10/18 History U-100 Insulin aspart] USEASDIRECTD Past Med/Surg History Family History Other Diabetes Heart disease Social 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 Beliefs That Will Affect Care: None marital status: / Current Living Situation: Rehab Other Information That Helps Us Care for You: No Feels Safe at Home: Yes Safety Concerns: Feels Safe At This Time Smoking Status: Former smoker Hx Alcohol Use: Yes Hx Substance Use: No Review of Systems ROS per HPI, all other systems reviewed and negative Physical Exam Vital Signs (Past 24 Hours): Last Vital Signs Temp 36.7 C 11/10/18 20:00 Pulse 80 11/10/18 20:00 Resp 20 11/10/18 20:00 BP 90/63 L 11/10/18 20:00 Pulse Ox 96 11/10/18 20:00 Constitutional: WD/WN, vitals as above Eyes: PERRL, conjunctivae normal, anicteric sclerae ENMT: external ear and nose normal, oropharynx normal Respiratory: normal respiratory effort; no respiratory distress Auscultation: + diminished lung sounds Cardiovascular: Rate/Rhythm: regular rate and regular rhythm Vessels: normal peripheral pulses Extremities: no edema Gastrointestinal (Abdomen): normal bowel sounds, soft, nontender, no hepatosplenomegaly Musculoskeletal: no cyanosis or clubbing, extremities motor strength 5/5 S/P right BKA, incisional petra intact with mild surrounding erythema however does not appear to be infected, no drainage noted Skin: no rashes, warm and dry Black eschar noted to left second finger Neurologic: PERRL, EOMI, accommodation nl, no face palsy, no dysarthria Psychiatric: A+Ox3, euthymic affect Results & Data Laboratory Results Laboratory Last Values WBC 7.31 K/uL (4.8-10.8) 11/10/18 12:23 RBC 3.63 M/uL (4.2-5.4) L 11/10/18 12:23 Hgb 9.3 g/dL (12.0-16.0) L 11/10/18 12:23 Hct 32.2 % (37-47) L 11/10/18 12:23 MCV 88.7 fL (80-100) 11/10/18 12:23 MCH 25.6 pg (25-34) 11/10/18 12:23 MCHC 28.9 g/dL (32-36) L 11/10/18 12:23 RDW Std Deviation 63.6 fL (36.4-46.3) H 11/10/18 12:23 RDW Coeff of Dru 19.7 % (11.5-14.5) H 11/10/18 12:23 Plt Count 425 K/uL (130-400) H 11/10/18 12:23 MPV 9.7 fL (7.4-10.4) 11/10/18 12:23 Immature Gran % (Auto) 0.3 % 11/10/18 12:23 Neut % (Auto) 69.8 % 11/10/18 12:23 Lymph % (Auto) 17.6 % 11/10/18 12:23 [place] % (Auto) 10.5 % 11/10/18 12:23 Eos % (Auto) 1.4 % 11/10/18 12:23 Baso % (Auto) 0.4 % 11/10/18 12:23 Immature Gran # (Auto) 0.02 K/uL (0.00-0.02) 11/10/18 12: Neut # (Auto) 5.10 K/uL (1.4-6.5) 11/10/18 12:23 Lymph # (Auto) 1.29 K/uL (1.2-3.4) 11/10/18 12:23 [place] # (Auto) 0.77 K/uL (0.11-0.59) H 11/10/18 12:23 Eos # (Auto) 0.10 K/uL (0-0.5) 11/10/18 12:23 Baso # (Auto) 0.03 K/uL (0-0.2) 11/10/18 12: Absolute Nucleated RBC 0.09 K/uL (0-0) H 11/10/18 12: Nucleated RBC % (auto) 1.2 % 11/10/18 12:23 PT 25.1 Seconds (9.0-12.0) H 11/10/18 18:00 INR 2.6 (0.9-1.1) H 11/10/18 18:00 APTT 35.6 Seconds (21.0-31.0) H 11/10/18 15:58 PTT Ratio 1.3 11/10/18 15:58 VBG pH 7.37 (7.36-7.41) 11/10/18 12:23 VBG pCO2 55 mmHg (38-50) H 11/10/18 12:23 VBG pO2 35 mmHg 11/10/18 12:23 VBG HCO3 31 mmol/L 11/10/18 12:23 VBG O2 Saturation 63.1 % 11/10/18 12:23 VBG Base Excess 4.7 mEq/L 11/10/18 12:23 Barometric Pressure 721.5 mm/Hg 11/10/18 12:23 Sodium 134 mmol/L (136-145) L 11/10/18 12:23 Potassium 4.5 mmol/L (3.5-5.1) 11/10/18 12:23 Chloride 96 mmol/L (98-107) L 11/10/18 12:23 Carbon Dioxide 29 mmol/L (21-32) 11/10/18 12:23 Anion Gap 9.0 (3-11) 11/10/18 12:23 BUN 30 mg/dl (7-18) H 11/10/18 12:23 Creatinine 3.86 mg/dl (0.6-1.2) H 11/10/18 12:23 Est Cr Clr Drug Dosing 22.5 ml/min 11/10/18 12:23 Est GFR ( Amer) 14.8 11/10/18 12:23 Est GFR (Non-Af Amer) 12.7 11/10/18 12:23 BUN/Creatinine Ratio 7.8 (10-20) L 11/10/18 12:23 Glucose 72 mg/dl (70-99) 11/10/18 12:23 POC Glucose 71 (70-99) 11/10/18 16:42 Calcium 9.7 mg/dl (8.5-10.1) 11/10/18 12:23 Magnesium 2.1 mg/dl (1.8-2.4) 11/10/18 12:23 Total Bilirubin 0.8 mg/dl (0.2-1) 11/10/18 19:24 Direct Bilirubin 0.5 mg/dl (0-0.2) H 11/10/18 19:24 AST 486 U/L (15-37) H 11/10/18 19:24 ALT 248 U/L (12-78) H 11/10/18 19:24 Alkaline Phosphatase 111 U/L (45-117) 11/10/18 19:24 Ammonia 29.0 umol/L (11-32) 11/10/18 19:25 Troponin I 2.560 ng/ml (0-0.045) H* 11/10/18 19:24 Total Protein 7.4 gm/dl (6.4-8.2) 11/10/18 19:24 Albumin 1.9 gm/dl (3.4-5.0) L 11/10/18 19:24 Globulin 5.9 gm/dl (2.5-4.0) H 11/10/18 12:23 Albumin/Globulin Ratio 0.3 (0.9-2) L 11/10/18 12:23 TSH 3.230 uIu/ml (0.300-4.500) 11/10/18 12:23 Specimen Hemolysis 11/10/18 12:23 Nasal Screen MRSA (PCR) Positive (Negative) A 11/10/18 17:30 Hep Bs Antigen Neg (Neg) 11/10/18 19:25 Hepatitis C Antibody Neg (Neg) 11/10/18 18:[address] Impression: No acute intracranial abnormality. CXR IMPRESSION: Developing congestive heart failure with a small left effusion. Code Status & VTE Plan VTE Prophylaxis Plan VTE Prophylaxis will be ordered: Yes Supervising Physician Co-Signing Physician Notes Attending addendum The patient is seen and examined in telemetry unit She is a 52-year-old obese female with significant past medical history of end- stage renal disease on hemodialysis, CAD status post stent placement in the past, diabetes type 2, cardiomyopathy, hypertension and other medical conditions as mentioned in history and physical was admitted with hypotension and was noted to have increased troponin and also increased LFTs on admission. 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 Generally weak Admission labs, EKG and imaging studies noted Has significantly abnormal LFTs may be secondary to shock liver , fatty liver, acute hepatitis and/or driving injury Has significant increasing troponin, likely has non-ST elevation MO End stage renal disease on hemodialysis Appropriately consulted with specialist Agree with assessment and plan as outlined above by Kely musa (1) DM type 2 (diabetes mellitus, type 2) Diabetes mellitus complication detail: with peripheral angiopathy with gangrene Diabetes mellitus complication status: with circulatory complication Diabetes mellitus [facility] insulin use: with [facility] use Qualified Code(s): E11.52 - Type 2 diabetes mellitus with diabetic peripheral angiopathy with gangrene; Z79.4 - senior living (current) use of insulin (2) CAD (coronary artery disease) Associated angina: without angina Coronary Disease-Associated Artery/Lesion type: [place]arrow artery [place] vs. transplanted heart: barrow heart Qualified Code(s): I25.10 - Atherosclerotic heart disease of [place] coronary artery without angina pectoris (3) GERD (gastroesophageal reflux disease) Esophagitis presence: without esophagitis Qualified Code(s): K21.9 - Gastro- esophageal reflux disease without esophagitis
[2018-11-10 20:48] LABS: Hepatitis C IgG 13Yrs+Old_Rflx Neg (Neg)
[2018-11-10] MEDS: METOPROLOL TARTRATE 25 MG TAB PO SCH (21:14)
[2018-11-10] MEDS: NYSTATIN POWDER 15GM BTL EXT SCH (21:14)
[2018-11-10] MEDS: DOCUSATE SODIUM 100 MG CAP PO SCH (21:14)
[2018-11-10] MEDS: GABAPENTIN 300 MG CAP PO SCH (21:18)
[2018-11-10] MEDS ORDERED: HEPARIN SOD 5,000 UNIT/0.5 ML VIAL SQ SCH (22:00)
[2018-11-11 00:28] LABS: INR 2.1 (0.9-1.1); Partial Thromboplastin Ratio 1.2; Partial Thromboplastin Time 33.3 Seconds (21.0-31.0); Prothrombin Time 20.2 Seconds (9.0-12.0)
[2018-11-11 00:45] LABS: Albumin Level 1.6 gm/dl (3.4-5.0); Bilirubin Direct 0.5 mg/dl (0-0.2); Bilirubin,Total 0.7 mg/dl (0.2-1); Total Protein 7.1 gm/dl (6.4-8.2)
[2018-11-11] MEDS: MoRPHine SULFATE IR 15 MG TAB (IMMEDIATE RELEASE) PO PRN ×2 (01:17→15:11)
[2018-11-11 01:51] LABS: Troponin I 2.3 ng/ml (0-0.045)
[2018-11-11] MEDS: LEVOTHYROXINE SODIUM 50 MCG TABLET PO SCH (06:21)
[2018-11-11 06:44] LABS: Hematocrit (blood only) 30.9 % (37-47); Mean Corpuscular Hgb Conc 29.1 g/dL (32-36); Mean Corpuscular Volume 87.5 fL (80-100); Mean Platelet Volume 9.8 fL (7.4-10.4); Nucleated RBC # (auto) 0.09 K/uL (0-0); Nucleated RBC % (auto) 1.3 %; Platelet Count 369 K/uL (130-400); RDW Coefficient of Variation 19.6 % (11.5-14.5); Red Blood Count 3.53 M/uL (4.2-5.4); White Blood Count 6.94 K/uL (4.8-10.8)
[2018-11-11 06:54] LABS: Partial Thromboplastin Ratio 1.1; Partial Thromboplastin Time 29.8 Seconds (21.0-31.0); Prothrombin Time 19.3 Seconds (9.0-12.0)
[2018-11-11] MEDS ORDERED: HEPARIN SOD (PORCINE) 1000 UNIT/ML 10 ML VIAL IV SCH (07:00)
[2018-11-11] MEDS ORDERED: EPOETIN ALFA 10,000 UNITS/ML VIAL IV ONE (07:00)
[2018-11-11] MEDS ORDERED: EPOETIN ALFA 14,000 UNITS in SYRINGE 0 ML IV SCH (07:00)
[2018-11-11] MEDS ORDERED: SODIUM CHLORIDE 0.9% 1000ML 1,000 ML IV PRN ×2 (07:00)
--- NOTE | 2018-11-11 07:35 | Ultrasound Report ---
US duplex portal hepatic veins CLINICAL HISTORY: Assess for portal vein thrombosis. Right upper quadrant pain. COMPARISON STUDY: Abdomen and pelvis CT . FINDINGS: The hepatic and portal veins are patent. These demonstrate normal direction of flow. IMPRESSION: Hepatic and portal veins are patent. Electronically signed by: Jose Corona M.D. 11/11/2018 7:34 AM
[2018-11-11 07:45] LABS: Albumin Level 1.7 gm/dl (3.4-5.0); BUN Creatinine Ratio 8.2 (10-20); Bilirubin Direct 0.5 mg/dl (0-0.2); Bilirubin,Total 0.9 mg/dl (0.2-1); Calcium 9.1 mg/dl (8.5-10.1); Creatinine Clr Calc Pharmacy 17.8 ml/min; Est GFR (African American) 12.1; Est GFR (Non-African American) 10.4; Total Protein 6.9 gm/dl (6.4-8.2)
[2018-11-11] MEDS: DOCUSATE SODIUM 100 MG CAP PO SCH ×2 (08:19→20:42)
[2018-11-11] MEDS: CLOPIDOGREL BISULFATE 75 MG TAB PO SCH (08:20)
[2018-11-11] MEDS: SERTRALINE HCL 50 MG TABLET PO SCH (08:20)
[2018-11-11] MEDS: SEVELAMER HCL 800 MG TABLET PO SCH ×3 (08:21→17:45)
[2018-11-11] MEDS: NEPHROCAPS PO SCH (08:21)
[2018-11-11] MEDS: PANTOprazole 40 MG TAB PO SCH (08:21)
[2018-11-11] MEDS: ASPIRIN 81 MG ECTAB PO SCH (08:21)
[2018-11-11] MEDS: MIDODRINE HCL 10 MG TAB PO SCH ×3 (08:22→17:45)
[2018-11-11] MEDS: INSULIN ASPART 100 UNITS/ML 3 ML PEN SC SCH ×4 (08:23→20:46)
[2018-11-11] MEDS ORDERED: ATORVASTATIN 40 MG TAB PO SCH (09:00)
[2018-11-11] MEDS: HEPARIN SOD (PORCINE) 1000 UNIT/ML 10 ML VIAL IV SCH ×3 (10:15→13:11)
--- NOTE | 2018-11-11 11:06 | Hospitalist Progress Note ---
Date of Service November 11, 2018 Assessment & Plan (1) Hypotension: -Patient sent from [facility] for evaluation of hypotension and hypoxia -Per Dr. Wood, patient was significantly hypotensive with dialysis yesterday -In the ED, initial BP 97/68 which improved with 500 cc NSS -Likely secondary to dehydration/hypovolemia and no evidence of sepsis -Continue to monitor BPs -Does have history of orthostatic hypotension, continue chronic midodrine -Blood pressure remains stable (2) Hypoxia: On room air and she desaturated to 88% which improved with 2 L of oxygen via nasal cannula Etiology unclear, CXR shows developing congestion however patient does not appear to be overtly volume overloaded; no infiltrate noted on CXR Doubt any pulmonary embolism given the INR 2.0 and above Denies any shortness of breath at rest Saturating well on 2 L of nasal cannula oxygen (3) Elevated troponin: Troponin was elevated significant May have NST GIUSEPPE No significant EKG changes Appreciate cardiology input and recommendation Patient is free of any pain (4) CAD (coronary artery disease): (5) Ischemic cardiomyopathy: -Troponin on presentation 2.34, EKG does not show acute ST changes -Patient reporting chest pain however seems to be musculoskeletal in nature and not similar to anginal equivalent in the past -History of CAD, S/P KAROLINE to mid circumflex 02/2018 and BMS to circumflex 2015, chronic RCA occlusion -Case discussed with Dr. Venegas who advised initiating heparin drip however unable to at this time due to coagulopathy -Continue cycle cardiac enzymes, check resting echo -Continue aspirin and Plavix; beta-silvia and nitrate as BP allows; holding statin due to elevated LFTs (6) Abnormal LFTs: Likely multifactorial Her ALT was highly elevated in August LFTs are elevated at this time likely secondary to hypoxia/drug- induced/hepatitis/fatty liver with cirrhosis No portal vein thrombosis on ultrasound Appreciate GI input and recommendation She has been on Mucomyst and will finish the course LFTs have been improving (7) Coagulopathy: -On admission, patient found to have elevated AST and ALT -Initial INR 1.9 with repeat being 2.6 -No history of hepatic disease in the past -? Shock liver from hypotension yesterday -GI consult, case discussed with Dr. Eduardo who advises obtaining hepatitis panel, CMV, EBV, HSV; trend LFTs and coags; start Mucomyst drip per protocol -Liver ultrasound with portal vein Doppler-negative for any thrombus -We will monitor INR (8) History of right below knee amputation: -S/P right BKA on 10/[address] Jones -Incisional petra are intact, wound appears to be healing well, no signs of infection (9) Anemia associated with chronic renal failure: -Hgb baseline (10) Eschar of finger: -Left second finger -Following with Dr. Pryor -No signs of active infection (11) ESRD (end stage renal disease) on dialysis: -Nephrology consult for dialysis orders -Continue routine renal medication -Continue hemodialysis (12) DM type 2 (diabetes mellitus, type 2): -Hgb A1c 7.3 08/2018 -Lantus and NovoLog per protocol while hospitalized (13) GERD (gastroesophageal reflux disease): -Continue PPI (14) DVT prophylaxis: -None needed at this time, INR 2.6 Subjective The patient was seen and examined in telemetry unit She feels a lot better but he still complains some discomfort in the epigastrium Nausea or vomiting or any abdominal distention Denies any chest pain and/or palpitation Physical Exam Vital Signs (Past 24 Hours): Last Vital Signs Temp 36.5 C 11/11/18 10:38 Pulse 89 11/11/18 10:45 Resp 24 11/11/18 10:38 BP 79/49 L 11/11/18 10:45 Pulse Ox 98 11/11/18 10:38 Physical Exam: No distress at rest Constitutional: WD/WN, vitals as above Eyes: PERRL, conjunctivae normal, anicteric sclerae ENMT: external ear and nose normal, oropharynx normal Respiratory: normal respiratory effort; no respiratory distress Auscultation: + diminished lung sounds Cardiovascular: Rate/Rhythm: regular rate and regular rhythm Vessels: normal peripheral pulses Extremities: no edema Gastrointestinal (Abdomen): Inspection/Auscultation: abdomen normal to inspection and normal bowel sounds Percussion/Palpation: + abdomen tender (Mildly tender in the epigastric region) Musculoskeletal: no cyanosis or clubbing, extremities motor strength 5/5 Skin: no rashes, warm and dry Neurologic: PERRL, EOMI, accommodation nl, no face palsy, no dysarthria Psychiatric: A+Ox3, euthymic affect Results & Data Laboratory Results Short CBC 11/10/18 11/11/18 Range/Units 12:23 06:27 WBC 7.31 6.94 (4.8-10.8) K/uL Hgb 9.3 L 9.0 L (12.0-16.0) g/dL Hct 32.2 L 30.9 L (37-47) % Plt Count 425 H 369 (130-400) K/uL BMP 11/10/18 11/11/18 12:23 06:27 Sodium 134 L 134 L Potassium 4.5 4.0 Chloride 96 L 96 L Carbon Dioxide 29 29 BUN 30 H 38 H Creatinine 3.86 H 4.56 H* D Glucose 72 134 H Calcium 9.7 9.1 Cardiac Enzymes 11/10/18 11/10/18 11/11/18 Range/Units 12: 19:24 00:01 Troponin I 2.340 H* 2.560 H* 2.300 H* (0-0.045) ng/ml Liver Function 11/10/18 11/10/18 11/11/18 Range/Units 12: 19:24 00:01 Total Bilirubin 0.8 0.8 0.7 (0.2-1) mg/dl Direct Bilirubin 0.5 H 0.5 H (0-0.2) mg/dl AST 609 H 486 H 372 H (15-37) U/L ALT 281 H 248 H 226 H (12-78) U/L Alkaline Phosphatase 116 111 104 (45-117) U/L Albumin 2.0 L 1.9 L 1.6 L (3.4-5.0) gm/dl 11/11/18 Range/Units 06:27 Total Bilirubin 0.9 (0.2-1) mg/dl Direct Bilirubin 0.5 H (0-0.2) mg/dl AST 294 H (15-37) U/L ALT 202 H (12-78) U/L Alkaline Phosphatase 104 (45-117) U/L Albumin 1.7 L (3.4-5.0) gm/dl Medications Administered Current Inpatient Medications Aspirin (Ecotrin Ectab) 81 mg PO [facility] Stop: 12/11/18 08:59 Last Admin: 11/11/18 08:21 Dose: 81 mg Documented by: Clopidogrel Bisulfate (Plavix) 75 mg PO [facility] Stop: 12/11/18 08:59 Last Admin: 11/11/18 08:20 Dose: 75 mg Documented by: Dextrose (Dextrose 50%) 25 - 50 ml IV UD PRN; Protocol PRN Reason: Hypoglycemia Protocol Stop: 12/10/18 16:09 Docusate Sodium (Colace) 100 mg PO BID JIHAN Stop: 12/10/18 20:59 Last Admin: 11/11/18 08:19 Dose: 100 mg Documented by: Gabapentin (Neurontin) 300 mg PO HS JIHAN Stop: 12/10/18 20:59 Last Admin: 11/10/18 21:18 Dose: 300 mg Documented by: Glucagon (Glucagen) 1 mg SQ UD PRN; Protocol PRN Reason: Hypoglycemia Protocol Stop: 12/10/18 16:09 Glucose (Glucose 40%) 15 - 30 gm PO UD PRN; Protocol PRN Reason: Hypoglycemia Protocol Stop: 12/10/18 16:09 Glucose (Dex4 Glucose) 4 - 8 tabs PO UD PRN; Protocol PRN Reason: Hypoglycemia Protocol Stop: 12/10/18 16:09 Heparin Sodium (Porcine) (Heparin Iv Bolus) 1,000 units IV TODAY@0700 [facility] Stop: 11/11/18 14:00 Last Admin: 11/11/18 09:15 Dose: Not Given Documented by: Heparin Sodium (Porcine) (Heparin Iv Bolus) 400 units IV 0700,0800,0900 [facility] Stop: 11/11/18 14:00 Iron Sucrose 100 mg/ Syringe 5 mls @ 1 mls/min IV TuThSa@0600 [facility] Stop: 12/11/18 05:59 Acetylcysteine 10,400 mg/ (Dextrose) 1,052 mls @ 62.5 mls/hr IV Q16H [facility] Stop: 12/11/18 00:59 Last Admin: 11/11/18 02:42 Dose: 62.5 mls/hr Documented by: Sodium Chloride (Nss 1000ml) 1,000 mls @ 0 mls/hr IV .Q0M PRN PRN Reason: For Hemodialysis Use ONLY Stop: 11/11/18 12:59 Epoetin Christopher 14,000 units/ (Syringe) 0.7 mls @ 1 mls/min IV TODAY@0700 [facility] Stop: 11/11/18 14:00 Insulin Aspart (Novolog Flexpen) 0 units SC ACHS [facility] Stop: 12/10/18 16:29 Last Admin: 11/11/18 08:23 Dose: 3 units Documented by: Insulin Glargine (Lantus Solostar Pen) 5 units SC Q12 [facility] Stop: 12/10/18 16:59 Last Admin: 11/10/18 17:20 Dose: Not Given Documented by: Isosorbide Mononitrate (Imdur Extended Rel) 60 mg PO QAM [facility] Stop: 12/11/18 08:59 Levothyroxine Sodium (Synthroid) 50 mcg PO DAILYBB [facility] Stop: 12/11/18 06:29 Last Admin: 11/11/18 06:21 Dose: 50 mcg Documented by: Lidocaine (Lidoderm 5%) 1 patch TD QAM [facility] Stop: 12/11/18 08:59 Lorazepam (Ativan) 0.5 mg PO DAILY PRN PRN Reason: Anxiety Stop: 12/10/18 16:00 Magnesium Hydroxide (Milk Of Magnesia) 30 ml PO DAILY PRN PRN Reason: Constipation Stop: 12/10/18 16:00 Meclizine HCl (Antivert) 25 mg PO TID PRN PRN Reason: Dizziness Stop: 12/10/18 16:00 Metoprolol Tartrate (Lopressor) 12.5 mg PO BID [facility] Stop: 12/10/18 20:59 Last Admin: 11/10/18 21:14 Dose: Not Given Documented by: Midodrine (Proamatine) 10 mg PO TID@0700,1200,1700 [facility] Stop: 12/10/18 16:59 Last Admin: 11/11/18 08:22 Dose: 10 mg Documented by: Miscellaneous (Order Awaiting Action) 1 ea N/A QS [facility] Stop: 12/11/18 00:00 Last Admin: 11/11/18 09:33 Dose: Not Given Documented by: Miscellaneous (Remove Lidoderm Patch) 1 ea N/A DAILY@2100 [facility] Stop: 12/10/18 20:59 Last Admin: 11/10/18 21:16 Dose: 1 ea Documented by: Miscellaneous (Carbohydrates For Hypoglycemia) 15 - 30 gm PO UD PRN PRN Reason: Hypoglycemia Treatment Stop: 12/10/18 16:09 Morphine Sulfate (Morphine Sulfate Ir) 7.5 mg PO Q6H PRN PRN Reason: Pain Stop: 11/24/18 17:48 Last Admin: 11/11/18 01:17 Dose: 7.5 mg Documented by: Nystatin (Mycostatin) 1 appln EXT BID [facility] Stop: 12/10/18 20:59 Last Admin: 11/10/18 21:14 Dose: Not Given Documented by: Ondansetron HCl (Zofran) 4 mg PO QID PRN PRN Reason: Nausea Stop: 12/10/18 16:00 Pantoprazole Sodium (Protonix) 40 mg PO QAM [facility] Stop: 12/11/18 08:59 Last Admin: 11/11/18 08:21 Dose: 40 mg Documented by: Polyethylene Glycol (Miralax Powder Packet) 17 gm PO QDL PRN PRN Reason: Constipation Stop: 12/10/18 16:00 Senna/Docusate Sodium (Senokot S) 1 tab PO QDL PRN PRN Reason: Constipation Stop: 12/10/18 16:00 Sertraline HCl (Zoloft) 25 mg PO QAM [facility] Stop: 12/11/18 08:59 Last Admin: 11/11/18 08:20 Dose: 25 mg Documented by: Sevelamer HCl (Renagel) 3,200 mg PO TIDM [facility] Stop: 12/10/18 16:59 Last Admin: 11/11/18 08:21 Dose: 3,200 mg Documented by: Vitamin B Complex/Folic Acid (Nephrocaps) 1 cap PO QAM [facility] Stop: 12/11/18 08:59 Last Admin: 11/11/18 08:21 Dose: 1 cap Documented by: (1) CAD (coronary artery disease) Coronary Disease-Associated Artery/Lesion type: [place] artery [place] vs. transplanted heart: [place] heart Associated angina: without angina Qualified Code(s): I25.10 - Atherosclerotic heart disease of [place] coronary artery without angina pectoris (2) DM type 2 (diabetes mellitus, type 2) Diabetes mellitus snf insulin use: with snf use Diabetes mellitus complication status: with circulatory complication Diabetes mellitus complication detail: with peripheral angiopathy with gangrene Qualified Code(s): E11.52 - Type 2 diabetes mellitus with diabetic peripheral angiopathy with gangrene; Z79.4 - longterm (current) use of insulin (3) GERD (gastroesophageal reflux disease) Esophagitis presence: without esophagitis Qualified Code(s): K21.9 - Gastro- esophageal reflux disease without esophagitis
[2018-11-11] MEDS: IRON SUCROSE 100 MG in SYRINGE 0 ML IV SCH (11:07)
--- NOTE | 2018-11-11 11:20 | Gastrointestinal Consultation ---
Date of Consultation November 11, 2018 Assessment & Plan (1) Abnormal LFTs: 52 yo presenting with chest pain and hypoexemia with recent BKA and chronic CAD and ESRD on HD with associated LFT's. Etiology of LFT's is not entirely clear. Most likely etiology is ischemic hepatopathy from recurrent insults during periods of hypotension at HD. Other etiologies may be Tylenol, DILI, intrinisc liver disease not appreciated, or systemic causes such as infection, right heart failure, hemolysis, DIC, rhabdo, etc. Recs: 1. NO mental status changes to suggest CUSTODIAL but barr have documented Acute Liver Injury, Mucomyst has been inititated and would renew after the 16 hr yani. INR is declining as well as LFT's which is promising. 2. LFT's/INR to q 8hrs. If worsened and or ANY mental status changes then will need to go to OLT center. 3. Await infectious and autoimmune labs 4. Doppler is clear 5. Give 10 mg IV of vitamin K 6. Eval for continued concern of Cardiac decompensation and or Pulmonary causes of dyspnea, hypoexima, cp, and elevated troponin. 7. Follow for infectious etiologies 8. Consider CK level 9. Call with any questions. Present on Admission?: Yes History of Present Illness Reason for Consultation: Elevated Liver Tests Attending Physician: Margarita Robles MD History of Present Illness This a 52-year-old female with a history of signficant CAD, Peripheral vascular disease, ESRD on HD and recently admited with for a right BKA (adm 10/27-11/03) and then who was sent to the ED from [facility] for evaluation of hypotension and hypoxia. During therapy she was c/o experiencing midsternal chest pain. The pain is sharp, worse with inspiration. She has a history of CAD interventions, most recently to her Circumflex, and has a totally occluded RCA. She has had persistent elevations of her liver function tests, ALT >500 in August, now adm with lower levels of elevations of her AST/ALT. August 2018 ALT 509, AST 289. Admission yesterday ALT 281 now 202 this am, AST 609 now 294 this am. She has had normal bilirubin as well as AP entire time. INR was 1.9 on admission, without anticoagulants INR recheck was 2.6. Therefore GI was called with consultation. She apparently has had significant repeated hypotension during HD and is requiring Midodrine. ON adm her troponin was elevated, they considered Heparin, however, with coags this was held, and she has also been hypoxic without etiolgy requring 02. Today on my interview she is without complaints, (late entry and saw around 9AM today) and just finished breakfast and does not have any c/o and overall states she feels well and better than presentation. She has been taking Tylenol as well as possible combo opioid/tylenol for post surgical pain. Only c/o this am is pain of her left index finger that is bandaged. Labs show an elevated troponin at 2.34, EKG is negative for acute ST changes. . Allergies Allergy/AdvReac Type Severity Reaction Status Date / Time adhesive Allergy Mild RASH, SORES Verified 11/10/18 12:48 latex Allergy Mild rash Verified 11/10/18 12:48 No Known Drug Allergies Allergy Mild . Verified 11/10/18 12:48 pollen extracts Allergy Mild WATERY EYES Verified 11/10/18 12:48 Home Medications Home Medications Medication Instructions Recorded Confirmed Type aspirin 81 mg PO QAM 08/16/18 11/10/18 History atorvastatin 40 mg PO QAM 08/16/18 11/10/18 History nitroglycerin 0.4 mg SUBLINGUAL DIRECTED PRN 08/16/18 11/10/18 History pantoprazole 40 mg PO QAM 08/16/18 11/10/18 History sertraline 25 mg PO QAM 08/16/18 11/10/18 History fluticasone propionate [Flonase 1 spray INTRANASAL QAM 09/19/18 11/10/18 History Allergy Relief] gabapentin 300 mg PO HS 09/19/18 11/10/18 History isosorbide mononitrate 60 mg PO QAM 09/19/18 11/10/18 History levothyroxine 50 mcg PO QAM 09/19/18 11/10/18 History meclizine 25 mg PO TID PRN 09/19/18 11/10/18 History midodrine 10 mg PO TID 09/19/18 11/10/18 History nystatin 1 applic TOPICAL BID 09/19/18 11/10/18 History sennosides-docusate sodium 1 tab PO QDL PRN 09/19/18 11/10/18 History [Senna-S] sevelamer carbonate [Renvela] 3,200 mg PO TIDM 09/19/18 11/10/18 History Fleet Enema 118 ml [place] DAILY PRN 10/06/18 11/10/18 History bisacodyl 10 mg [place] DAILY PRN 10/06/18 11/10/18 History lorazepam [Ativan] 0.5 mg PO DAILY PRN 10/06/18 11/10/18 History magnesium hydroxide [Milk of 30 ml PO DAILY PRN 10/06/18 11/10/18 History Magnesia] metoprolol tartrate 12.5 mg PO BID 10/06/18 11/10/18 History ondansetron HCl [Zofran] 4 mg PO QID PRN 10/06/18 11/10/18 History polyethylene glycol 3350 [Miralax] 17 g PO QDL PRN 10/06/18 11/10/18 History Aranesp (in polysorbate) 1 dose SUBCUT WK 10/25/18 11/10/18 History Lantus U-100 Insulin 15 unit SUBCUT HS 10/25/18 11/10/18 History Nephrocaps 1 cap PO QAM 10/25/18 11/10/18 History acetaminophen 500 mg PO Q4H PRN 10/25/18 11/10/18 History docusate sodium 100 mg PO BID 10/25/18 11/10/18 History hydrocodone-acetaminophen 1 tab PO Q6H PRN 10/25/18 11/10/18 History lidocaine [Lidoderm] 1 patch TOPICAL QAM 10/25/18 11/10/18 History Venofer See Rx Instructions .ROUTE .COMPLEX 10/27/18 11/10/18 History clopidogrel [Plavix] 75 mg PO QAM 10/27/18 11/10/18 History dextrose [Glucose Gel] See Rx Instructions .ROUTE 10/27/18 11/10/18 History .COMPLEX PRN glucagon HCl See Rx Instructions .ROUTE 10/27/18 11/10/18 History .COMPLEX PRN sodium chloride 0.9 % 1,000 ml IV UD PRN 10/27/18 11/10/18 History heparin (porcine) 5,000 unit SUBCUT Q12H 11/10/18 11/10/18 History insulin aspart U-100 [Novolog 1 sliding scale dose SUBCUT 11/10/18 11/10/18 History U-100 Insulin aspart] USEASDIRECTD Patient History Family History Other Diabetes Heart disease 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 Physical Exam Vital Signs (Past 24 Hours): Last Vital Signs Temp 36.5 C 11/11/18 10:38 Pulse 88 11/11/18 11:00 Resp 24 11/11/18 10:38 BP 78/50 L 11/11/18 11:00 Pulse Ox 98 11/11/18 10:38 Chronically ill appearing but sitting up in bed in NAD RRR Diminshed BS BL NABS/Soft/nt/nd Neruo intact Normal Eyes On NC Going on HD soon Results & Data Diagnostic Findings Imgaing reviewed CXR with Pulm edema RUQ US with dopplers reveal patent vessels
[2018-11-11] MEDS: ISOSORBIDE MONO EXTENDED REL 60 MG TABCR PO SCH (13:12)
[2018-11-11] MEDS: INSULIN GLARGINE SOLOSTAR 100 UNITS/ML 3 ML PEN SC SCH ×2 (13:12→20:42)
[2018-11-11] MEDS: LIDOCAINE 5% 1 PATCH TD SCH (13:12)
[2018-11-11] MEDS: METOPROLOL TARTRATE 25 MG TAB PO SCH ×2 (13:13→20:42)
[2018-11-11] MEDS: NYSTATIN POWDER 15GM BTL EXT SCH ×2 (13:14→20:42)
--- NOTE | 2018-11-11 13:34 | Cardiology Progress Note ---
Date of Service November 11, 2018 Assessment & Plan (1) Elevated troponin: 2. Coronary artery disease post prior PCI to circumflex last 02/2018, known chronically occluded RCA 3. Ischemic cardiomyopathy, EF 35% 4. 2 weeks postop right BKA 5. End-stage renal disease on HD 6. PAD post right SFA stenting 7. Type 2 diabetes 8. Pleuritic chest pain 9. Elevated LFTs No new chest pain symptoms. Troponin flat, ECG unchanged. Well perfused on exam, minimal vascular congestion on exam after HD today with negative 1.7 L Low suspicion for acute coronary syndrome or worsening right heart failure causing hepatic congestion/elevated LFTs. -- Echo pending -- Continue DAPT with aspirin, clopidogrel -- No need for IV heparin -- Continue home metoprolol, imdur -- if recurrent hypotension imdur could be held. Subjective Tired after completion of dialysis. Still with intermittent pleuritic chest pain. Some shortness of breath with extended conversation. No other new complaints. Review of Systems All systems reviewed & are unremarkable except as noted in HPI & below Physical Exam Vital Signs (Past 24 Hours): Last Vital Signs Temp 36.5 C 11/11/18 10:38 Pulse 91 H 11/11/18 12:30 Resp 24 11/11/18 10:38 BP 97/70 L 11/11/18 12:30 Pulse Ox 98 11/11/18 10:38 Constitutional: no acute distress Eyes: + anicteric sclerae Respiratory: normal respiratory effort, lungs clear to auscultation Auscultation: no crackles Cardiovascular: Rate/Rhythm: regular rate Heart Sounds: no murmur Vessels: no JVD Extremities: no edema Gastrointestinal (Abdomen): Percussion/Palpation: abdomen soft; no hepatosplenomegaly Musculoskeletal: RLE BKA with petra in place, minimal surrounding erythema. LLE ulcers dressed clean, dry and intact Neurologic: no focal motor deficits Psychiatric: A+Ox3, euthymic affect
[2018-11-11] MEDS ORDERED: PERFLUTREN LIPID MICROSPHERE (DEFINITY) IV ONE (13:48)
[2018-11-11 18:26] LABS: INR 1.9 (0.9-1.1); Partial Thromboplastin Ratio 1.2; Prothrombin Time 18.7 Seconds (9.0-12.0)
[2018-11-11] MEDS ORDERED: PHYTONADIONE 5 MG TAB PO STA (18:28)
[2018-11-11 18:31] LABS: Albumin Level 1.7 gm/dl (3.4-5.0); Bilirubin Direct 0.5 mg/dl (0-0.2); Bilirubin,Total 0.7 mg/dl (0.2-1); Total Protein 7.3 gm/dl (6.4-8.2)
[2018-11-11] MEDS: ONDANSETRON 4 MG TAB PO PRN (19:44)
[2018-11-11] MEDS: GABAPENTIN 300 MG CAP PO SCH (20:42)
[2018-11-12] MEDS: LEVOTHYROXINE SODIUM 50 MCG TABLET PO SCH (05:57)
[2018-11-12 08:04] LABS: Hematocrit (blood only) 30.5 % (37-47); Hemoglobin 8.7 g/dL (12.0-16.0); Mean Corpuscular Hgb Conc 28.5 g/dL (32-36); Mean Corpuscular Volume 89.2 fL (80-100); Nucleated RBC % (auto) 1.4 %; Platelet Count 355 K/uL (130-400); RDW Coefficient of Variation 19.7 % (11.5-14.5); RDW Standard Deviation 61.6 fL (36.4-46.3); Red Blood Count 3.42 M/uL (4.2-5.4); White Blood Count 7.07 K/uL (4.8-10.8)
[2018-11-12 08:09] LABS: INR 1.7 (0.9-1.1); Prothrombin Time 16.4 Seconds (9.0-12.0)
[2018-11-12 08:15] LABS: Anisocytosis Present; Basophils # (auto) 0.04 K/uL (0-0.2); Basophils % (auto) 0.6 %; Eosinophils % (auto) 4.2 %; Hypochromasia Present; Immature Granulocytes # (auto) 0.03 K/uL (0.00-0.02); Immature Granulocytes % (auto) 0.4 %; Lymphocytes # (auto) 1.73 K/uL (1.2-3.4); Lymphocytes % (auto) 24.5 %; Monocytes % (auto) 12.7 %; Neutrophils # (auto) 4.07 K/uL (1.4-6.5); Neutrophils % (auto) 57.6 %; Polychromasia 1+; Target Cells 1+
[2018-11-12] MEDS: SERTRALINE HCL 50 MG TABLET PO SCH (08:17)
[2018-11-12] MEDS: ISOSORBIDE MONO EXTENDED REL 60 MG TABCR PO SCH (08:17)
[2018-11-12] MEDS: NEPHROCAPS PO SCH (08:17)
[2018-11-12] MEDS: DOCUSATE SODIUM 100 MG CAP PO SCH ×2 (08:17→22:41)
[2018-11-12] MEDS: CLOPIDOGREL BISULFATE 75 MG TAB PO SCH (08:17)
[2018-11-12] MEDS: METOPROLOL TARTRATE 25 MG TAB PO SCH ×2 (08:18→22:47)
[2018-11-12] MEDS: PANTOprazole 40 MG TAB PO SCH (08:18)
[2018-11-12] MEDS: ASPIRIN 81 MG ECTAB PO SCH (08:18)
[2018-11-12] MEDS: SEVELAMER HCL 800 MG TABLET PO SCH ×3 (08:18→19:33)
[2018-11-12] MEDS: INSULIN GLARGINE SOLOSTAR 100 UNITS/ML 3 ML PEN SC SCH ×2 (08:19→22:41)
[2018-11-12] MEDS: NYSTATIN POWDER 15GM BTL EXT SCH ×2 (08:19→22:46)
[2018-11-12] MEDS: MIDODRINE HCL 10 MG TAB PO SCH ×3 (08:19→19:33)
[2018-11-12] MEDS: INSULIN ASPART 100 UNITS/ML 3 ML PEN SC SCH ×4 (08:20→22:42)
[2018-11-12 08:27] LABS: Albumin Globulin Ratio 0.3 (0.9-2); Albumin Level 1.7 gm/dl (3.4-5.0); BUN Creatinine Ratio 5.9 (10-20); Bilirubin,Total 0.7 mg/dl (0.2-1); Calcium 9.3 mg/dl (8.5-10.1); Est GFR (African American) 15.3; Est GFR (Non-African American) 13.2; Globulin 5.4 gm/dl (2.5-4.0); Potassium 3.6 mmol/L (3.5-5.1); Total Protein 7.1 gm/dl (6.4-8.2)
[2018-11-12] MEDS: LIDOCAINE 5% 1 PATCH TD SCH (09:01)
--- NOTE | 2018-11-12 11:08 | Gastroenterology Progress Note ---
Date of Service November 12, 2018 Assessment & Plan (1) Abnormal LFTs: 52 yo presenting with chest pain and hypoexemia with recent BKA and chronic CAD and ESRD on HD with associated LFT's. Etiology of LFT's is not entirely clear. Most likely etiology is ischemic hepatopathy from recurrent insults during periods of hypotension at HD. Other etiologies may be Tylenol, DILI, intrinisc liver disease not appreciated, or systemic causes such as infection, right heart failure, hemolysis, DIC, rhabdo, etc. Recs: 1. NO mental status changes to suggest DARON but barr have documented Acute Liver Injury, Mucomyst has been inititated and would renew after the 16 hr yani. INR is declining as well as LFT's which is promising. They continue to decline from an AST of 202 yesterday to 134, and ALT of 171 240 today, and alk phos of 130 down to 123. We will continue the Mucomyst overnight barring volume status. 2. LFT's/INR to q 8hrs. If worsened and or ANY mental status changes then will need to go to OLT center. 3. Await infectious and autoimmune labs 4. Doppler is clear 5. Given vitamin K 6. Eval for continued concern of Cardiac decompensation and or Pulmonary causes of dyspnea, hypoexima, cp, and elevated troponin. 7. Follow for infectious etiologies 8. Consider CK level 9. Call with any questions. Subjective No complaints today. LFTs are improved. Hypotensive during dialysis. Physical Exam Vital Signs (Past 24 Hours): Last Vital Signs Temp 36.6 C 11/12/18 10:18 Pulse 77 11/12/18 10:18 Resp 16 11/12/18 10:18 BP 96/71 L 11/12/18 10:18 Pulse Ox 99 11/12/18 10:18 Awake alert oriented x3 Heart is regular Lungs are clear Abdomen soft nontender nondistended Right BKA
--- NOTE | 2018-11-12 11:09 | Hospitalist Progress Note ---
Date of Service November 12, 2018 Assessment & Plan (1) Hypotension: -Patient sent from [facility] for evaluation of hypotension and hypoxia -Per Dr. Wood, patient was significantly hypotensive with dialysis yesterday -In the ED, initial BP 97/68 which improved with 500 cc NSS -Likely secondary to dehydration/hypovolemia and no evidence of sepsis -Continue to monitor BPs -Does have history of orthostatic hypotension, continue chronic midodrine -Blood pressure remains stable (2) Hypoxia: On room air and she desaturated to 88% which improved with 2 L of oxygen via nasal cannula Etiology unclear, CXR shows developing congestion however patient does not appear to be overtly volume overloaded; no infiltrate noted on CXR Doubt any pulmonary embolism given the INR 2.0 and above Denies any shortness of breath at rest Saturating well on 2 L of nasal cannula oxygen (3) Elevated troponin: Troponin was elevated significant May have NST GIUSEPPE No significant EKG changes Appreciate cardiology input and recommendation Patient is free of any pain (4) CAD (coronary artery disease): (5) Ischemic cardiomyopathy: -Troponin on presentation 2.34, EKG does not show acute ST changes -Patient reporting chest pain however seems to be musculoskeletal in nature and not similar to anginal equivalent in the past -History of CAD, S/P KAROLINE to mid circumflex 02/2018 and BMS to circumflex 2015, chronic RCA occlusion -Case discussed with Dr. Venegas who advised initiating heparin drip however unable to at this time due to coagulopathy -Continue cycle cardiac enzymes, check resting echo -Continue aspirin and Plavix; beta-silvia and nitrate as BP allows; holding statin due to elevated LFTs -Denies any cardiac symptoms (6) Abnormal LFTs: Likely multifactorial Her ALT was highly elevated in August LFTs are elevated at this time likely secondary to hypoxia/drug- induced/hepatitis/fatty liver with cirrhosis No portal vein thrombosis on ultrasound Appreciate GI input and recommendation She has been on Mucomyst and will finish the course-Mucomyst has been stopped this morning on 11/12 LFTs have been improving Received vitamin K 5 mg orally yesterday LFTs improving and INR is 1.7 today (7) Coagulopathy: -On admission, patient found to have elevated AST and ALT -Initial INR 1.9 with repeat being 2.6 -No history of hepatic disease in the past -? Shock liver from hypotension yesterday -GI consult, case discussed with Dr. Eduardo who advises obtaining hepatitis panel, CMV, EBV, HSV; trend LFTs and coags; start Mucomyst drip per protocol -Liver ultrasound with portal vein Doppler-negative for any thrombus -We will monitor INR-1.7 today 11/12 (8) History of right below knee amputation: -S/P right BKA on 10/[address] Jones -Incisional petra are intact, wound appears to be healing well, no signs of infection (9) Anemia associated with chronic renal failure: -Hgb baseline (10) Eschar of finger: -Left second finger -Following with Dr. Pryor -No signs of active infection (11) ESRD (end stage renal disease) on dialysis: -Nephrology consult for dialysis orders -Continue routine renal medication -Continue hemodialysis (12) DM type 2 (diabetes mellitus, type 2): -Hgb A1c 7.3 08/2018 -Lantus and NovoLog per protocol while hospitalized (13) GERD (gastroesophageal reflux disease): -Continue PPI (14) DVT prophylaxis: -None needed at this time, INR 2.6 Subjective The patient was seen and examined in telemetry unit She feels a lot better but he still complains some discomfort in the epigastrium Nausea or vomiting or any abdominal distention Denies any chest pain and/or palpitation 11/12 She has been weak and lethargic Denies any chest pain and/or more shortness of breath Still complains to have some epigastric discomfort without any nausea and/or vomiting or distention Physical Exam Vital Signs (Past 24 Hours): Last Vital Signs Temp 36.6 C 11/12/18 10:18 Pulse 77 11/12/18 10:18 Resp 16 11/12/18 10:18 BP 96/71 L 11/12/18 10:18 Pulse Ox 99 11/12/18 10:18 Physical Exam: No apparent distress at rest but looks pale Constitutional: WD/WN, vitals as above well developed and + obese Eyes: PERRL, conjunctivae normal, anicteric sclerae ENMT: external ear and nose normal, oropharynx normal Respiratory: normal respiratory effort; no respiratory distress Auscultation: + diminished lung sounds and + crackles (Minimal crackles at the bases) Cardiovascular: Rate/Rhythm: regular rate and regular rhythm Vessels: normal peripheral pulses Extremities: no edema Gastrointestinal (Abdomen): Inspection/Auscultation: abdomen normal to inspection and normal bowel sounds Percussion/Palpation: abdomen soft Musculoskeletal: no cyanosis or clubbing, extremities motor strength 5/5 Skin: no rashes, warm and dry Neurologic: PERRL, EOMI, accommodation nl, no face palsy, no dysarthria Psychiatric: A+Ox3, euthymic affect Results & Data Laboratory Results Short CBC 11/12/18 Range/Units 07:26 WBC 7.07 (4.8-10.8) K/uL Hgb 8.7 L (12.0-16.0) g/dL Hct 30.5 L (37-47) % Plt Count 355 (130-400) K/uL BMP 11/12/18 07:26 Sodium 135 L Potassium 3.6 Chloride 96 L Carbon Dioxide 30 BUN 22 H Creatinine 3.75 H D Glucose 133 H Calcium 9.3 Liver Function 11/11/18 11/12/18 Range/Units 18:04 07:26 Total Bilirubin 0.7 0.7 (0.2-1) mg/dl Direct Bilirubin 0.5 H (0-0.2) mg/dl AST 202 H 134 H (15-37) U/L ALT 171 H 140 H (12-78) U/L Alkaline Phosphatase 130 H 123 H (45-117) U/L Albumin 1.7 L 1.7 L (3.4-5.0) gm/dl Medications Administered Current Inpatient Medications Aspirin (Ecotrin Ectab) 81 mg PO [facility] Stop: 12/11/18 08:59 Last Admin: 11/12/18 08:18 Dose: 81 mg Documented by: Clopidogrel Bisulfate (Plavix) 75 mg PO [facility] Stop: 12/11/18 08:59 Last Admin: 11/12/18 08:17 Dose: 75 mg Documented by: Dextrose (Dextrose 50%) 25 - 50 ml IV UD PRN; Protocol PRN Reason: Hypoglycemia Protocol Stop: 12/10/18 16:09 Docusate Sodium (Colace) 100 mg PO BID [facility] Stop: 12/10/18 20:59 Last Admin: 11/12/18 08:17 Dose: 100 mg Documented by: Gabapentin (Neurontin) 300 mg PO [facility] Stop: 12/10/18 20:59 Last Admin: 11/11/18 20:42 Dose: 300 mg Documented by: Glucagon (Glucagen) 1 mg SQ UD PRN; Protocol PRN Reason: Hypoglycemia Protocol Stop: 12/10/18 16:09 Glucose (Glucose 40%) 15 - 30 gm PO UD PRN; Protocol PRN Reason: Hypoglycemia Protocol Stop: 12/10/18 16:09 Glucose (Dex4 Glucose) 4 - 8 tabs PO UD PRN; Protocol PRN Reason: Hypoglycemia Protocol Stop: 12/10/18 16:09 Iron Sucrose 100 mg/ Syringe 5 mls @ 1 mls/min IV TuThSa@0600 [facility] Stop: 12/11/18 05:59 Last Admin: 11/11/18 11:07 Dose: 1 mls/min Documented by: Insulin Aspart (Novolog Flexpen) 0 units SC ACHS [facility] Stop: 12/10/18 16:29 Last Admin: 11/12/18 08:20 Dose: 3 units Documented by: Insulin Glargine (Lantus Solostar Pen) 5 units SC Q12 [facility] Stop: 12/10/18 16:59 Last Admin: 11/12/18 08:19 Dose: 5 units Documented by: Isosorbide Mononitrate (Imdur Extended Rel) 60 mg PO QAM [facility] Stop: 12/11/18 08:59 Last Admin: 11/12/18 08:17 Dose: 60 mg Documented by: Levothyroxine Sodium (Synthroid) 50 mcg PO DAILYBB [facility] Stop: 12/11/18 06:29 Last Admin: 11/12/18 05:57 Dose: 50 mcg Documented by: Lidocaine (Lidoderm 5%) 1 patch TD QAM [facility] Stop: 12/11/18 08:59 Last Admin: 11/12/18 09:01 Dose: Not Given Documented by: Lorazepam (Ativan) 0.5 mg PO DAILY PRN PRN Reason: Anxiety Stop: 12/10/18 16:00 Magnesium Hydroxide (Milk Of Magnesia) 30 ml PO DAILY PRN PRN Reason: Constipation Stop: 12/10/18 16:00 Meclizine HCl (Antivert) 25 mg PO TID PRN PRN Reason: Dizziness Stop: 12/10/18 16:00 Metoprolol Tartrate (Lopressor) 12.5 mg PO BID [facility] Stop: 12/10/18 20:59 Last Admin: 11/12/18 08:18 Dose: 12.5 mg Documented by: Midodrine (Proamatine) 10 mg PO TID@0700,1200,1700 [facility] Stop: 12/10/18 16:59 Last Admin: 11/12/18 08:19 Dose: 10 mg Documented by: Hansacellaneous (Order Awaiting Action) 1 ea N/A QS [facility] Stop: 12/11/18 00:00 Last Admin: 11/12/18 08:22 Dose: Not Given Documented by: Hansacellaneous (Remove Lidoderm Patch) 1 ea N/A DAILY@2100 [facility] Stop: 12/10/18 20:59 Last Admin: 11/11/18 21:00 Dose: 1 ea Documented by: Hansacellaneous (Carbohydrates For Hypoglycemia) 15 - 30 gm PO UD PRN PRN Reason: Hypoglycemia Treatment Stop: 12/10/18 16:09 Morphine Sulfate (Morphine Sulfate Ir) 7.5 mg PO Q6H PRN PRN Reason: Pain Stop: 11/24/18 17:48 Last Admin: 11/11/18 15:11 Dose: 7.5 mg Documented by: Nystatin (Mycostatin) 1 appln EXT BID [facility] Stop: 12/10/18 20:59 Last Admin: 11/12/18 08:19 Dose: 1 appln Documented by: Ondansetron HCl (Zofran) 4 mg PO QID PRN PRN Reason: Nausea Stop: 12/10/18 16:00 Last Admin: 11/11/18 19:44 Dose: 4 mg Documented by: Pantoprazole Sodium (Protonix) 40 mg PO QAM [facility] Stop: 12/11/18 08:59 Last Admin: 11/12/18 08:18 Dose: 40 mg Documented by: Polyethylene Glycol (Miralax Powder Packet) 17 gm PO QDL PRN PRN Reason: Constipation Stop: 12/10/18 16:00 Senna/Docusate Sodium (Senokot S) 1 tab PO QDL PRN PRN Reason: Constipation Stop: 12/10/18 16:00 Sertraline HCl (Zoloft) 25 mg PO QAM [facility] Stop: 12/11/18 08:59 Last Admin: 11/12/18 08:17 Dose: 25 mg Documented by: Sevelamer HCl (Renagel) 3,200 mg PO TIDM [facility] Stop: 12/10/18 16:59 Last Admin: 11/12/18 08:18 Dose: 3,200 mg Documented by: Vitamin B Complex/Folic Acid (Nephrocaps) 1 cap PO QAM [facility] Stop: 12/11/18 08:59 Last Admin: 11/12/18 08:17 Dose: 1 cap Documented by: (1) CAD (coronary artery disease) Coronary Disease-Associated Artery/Lesion type: [place] artery [place] vs. transplanted heart: [place] heart Associated angina: without angina Qualified Code(s): I25.10 - Atherosclerotic heart disease of [place] coronary artery without angina pectoris (2) DM type 2 (diabetes mellitus, type 2) Diabetes mellitus partnership manager insulin use: with partnership manager use Diabetes mellitus complication status: with circulatory complication Diabetes mellitus complication detail: with peripheral angiopathy with gangrene Qualified Cod e(s): E11.52 - Type 2 diabetes mellitus with diabetic peripheral angiopathy with gangrene; Z79.4 - FDC (current) use of insulin (3) GERD (gastroesophageal reflux disease) Esophagitis presence: without esophagitis Qualified Code(s): K21.9 - Gastro- esophageal reflux disease without esophagitis
[2018-11-12] MEDS: GABAPENTIN 300 MG CAP PO SCH (22:46)
[2018-11-13] MEDS: LEVOTHYROXINE SODIUM 50 MCG TABLET PO SCH (06:09)
--- NOTE | 2018-11-13 07:08 | Ultrasound Report ---
ABDOMINAL ULTRASOUND, RIGHT UPPER QUADRANT HISTORY: r/o Fatty Liver/Cirrhosis. COMPARISON: CT of the abdomen and pelvis September 27, 2016. Right upper quadrant ultrasound October 06, 2016. FINDINGS: The liver is not overtly cirrhotic by sonography. Hepatic echogenicity is normal. No hepati c lesions identified. Note is made of linear echogenicity within the portal triads. There is associat ed shadowing. No definite biliary ductal dilatation is noted. The pancreatic body is normal. The head and tail are obscured by overlying bowel gas. The right kidney is atrophic. Sludge within the gallbl adder is noted. No gallbladder wall thickening. There is no pericholecystic fluid. IMPRESSION: 1. No sonographic evidence of fatty infiltration. Liver not overtly cirrhotic by sonography. 2. Linear echogenic foci with shadowing within the portal triads which likely reflects hepatic arteri al calcification. Pneumobilia or less likely portal venous gas could appear similar. If abdominal sammie n, a CT could be obtained to exclude these less likely possibilities. 3. Sludge within the gallbladder. No gallbladder wall thickening. 4. No biliary ductal dilatation. Electronically signed by: Juan A Mcintosh M.D. 11/13/2018 7:06 AM
[2018-11-13 07:46] LABS: Hematocrit (blood only) 32.1 % (37-47); Hemoglobin 9.2 g/dL (12.0-16.0); Mean Corpuscular Hgb Conc 28.7 g/dL (32-36); Mean Corpuscular Volume 89.4 fL (80-100); Mean Platelet Volume 10.1 fL (7.4-10.4); Nucleated RBC # (auto) 0.03 K/uL (0-0); Nucleated RBC % (auto) 0.4 %; Platelet Count 378 K/uL (130-400); RDW Coefficient of Variation 19.6 % (11.5-14.5); RDW Standard Deviation 62.2 fL (36.4-46.3); Red Blood Count 3.59 M/uL (4.2-5.4); White Blood Count 8.72 K/uL (4.8-10.8)
[2018-11-13] MEDS: CLOPIDOGREL BISULFATE 75 MG TAB PO SCH (07:50)
[2018-11-13] MEDS: DOCUSATE SODIUM 100 MG CAP PO SCH ×2 (07:50→20:38)
[2018-11-13] MEDS: NEPHROCAPS PO SCH (07:50)
[2018-11-13] MEDS: PANTOprazole 40 MG TAB PO SCH (07:51)
[2018-11-13] MEDS: MIDODRINE HCL 10 MG TAB PO SCH ×3 (07:51→17:45)
[2018-11-13] MEDS: ASPIRIN 81 MG ECTAB PO SCH (07:51)
[2018-11-13] MEDS: SEVELAMER HCL 800 MG TABLET PO SCH ×3 (07:51→17:45)
[2018-11-13] MEDS: INSULIN GLARGINE SOLOSTAR 100 UNITS/ML 3 ML PEN SC SCH ×2 (07:53→20:50)
[2018-11-13 07:54] LABS: INR 1.5 (0.9-1.1); Prothrombin Time 14.8 Seconds (9.0-12.0)
[2018-11-13] MEDS: INSULIN ASPART 100 UNITS/ML 3 ML PEN SC SCH ×4 (07:54→20:51)
[2018-11-13 08:43] LABS: Albumin Globulin Ratio 0.4 (0.9-2); Albumin Level 1.9 gm/dl (3.4-5.0); BUN Creatinine Ratio 6.5 (10-20); Bilirubin,Total 0.9 mg/dl (0.2-1); Calcium 9.8 mg/dl (8.5-10.1); Creatinine Clr Calc Pharmacy 17.2 ml/min; Est GFR (Non-African American) 10.4; Globulin 5.4 gm/dl (2.5-4.0); Potassium 4.2 mmol/L (3.5-5.1); Total Protein 7.3 gm/dl (6.4-8.2)
[2018-11-13] MEDS: NYSTATIN POWDER 15GM BTL EXT SCH ×2 (10:10→20:39)
[2018-11-13] MEDS: SERTRALINE HCL 50 MG TABLET PO SCH (10:10)
[2018-11-13] MEDS: LIDOCAINE 5% 1 PATCH TD SCH (10:11)
[2018-11-13] MEDS: MoRPHine SULFATE IR 15 MG TAB (IMMEDIATE RELEASE) PO PRN (10:20)
[2018-11-13 11:23] LABS: Basophils # (auto) 0.02 K/uL (0-0.2); Basophils % (auto) 0.2 %; Eosinophils # (auto) 0.23 K/uL (0-0.5); Eosinophils % (auto) 2.6 %; Immature Granulocytes # (auto) 0.02 K/uL (0.00-0.02); Immature Granulocytes % (auto) 0.2 %; Lymphocytes # (auto) 1.58 K/uL (1.2-3.4); Lymphocytes % (auto) 18.1 %; Monocytes # (auto) 0.72 K/uL (0.11-0.59); Monocytes % (auto) 8.3 %; Neutrophils # (auto) 6.15 K/uL (1.4-6.5); Neutrophils % (auto) 70.6 %
[2018-11-13] MEDS: ISOSORBIDE MONO EXTENDED REL 60 MG TABCR PO SCH (11:40)
[2018-11-13] MEDS: METOPROLOL TARTRATE 25 MG TAB PO SCH ×2 (11:40→20:39)
--- NOTE | 2018-11-13 12:35 | Gastroenterology Progress Note ---
Date of Service November 13, 2018 Assessment & Plan (1) Abnormal LFTs: 52 yo presenting with chest pain and hypoexemia with recent BKA and chronic CAD and ESRD on HD with associated elevated LFT's. Suspect ischemic hepatopathy (having hypotensive episodes during hemodialysis) but other DDx include:Tylenol DILI, infection, R HF, hemolysis, DIC, rhabdomyolosis. Her LFTs are now declining. RUQ w/o overt abnormalities. Portal u/s showed patent hepatic and portal veins. Hepatitis B,C negative. - Trend LFTs - Consider CK levels - F/U infectious serologies. - No new GI plans, will sign off today. Pls recall if any questions/concerns. Supervising Physician Co-Signing Physician Notes I performed a history and physical examination of the patient, including specifically on physical exam - soft, nontender abdomen. I have discussed the patient's management with Haley. Please refer to the nurse practitioner's note for the documented findings and plan of care. Patient with elevates trinsaminitis, work up suggest likely etiology is related to hypoxemic/hypoperfusion of the liver with element of ischemic hepatopathy. LFTs improving well. In view of GB sludge would obtain MRCP to evaluate the CBD. Subjective Pt c/o RUQ abd pain and low appetite, but no n/v. LFTs declining. RUQ u/s: 1. No sonographic evidence of fatty infiltration. Liver not overtly cirrhotic by sonography. 2. Linear echogenic foci with shadowing within the portal triads which likely reflects hepatic arterial calcification. Pneumobilia or less likely portal venous gas could appear similar. If abdominal pain, a CT could be obtained to exclude these less likely possibilities. 3. Sludge within the gallbladder. No gallbladder wall thickening. 4. No biliary ductal dilatation. Physical Exam Vital Signs (Past 24 Hours): Last Vital Signs Temp 36.5 C 11/13/18 08:05 Pulse 87 11/13/18 08:05 Resp 17 11/13/18 08:05 BP 114/63 11/13/18 08:05 Pulse Ox 93 11/13/18 11:29 Constitutional: WD/WN, vitals as above well groomed and cooperative Eyes: PERRL, conjunctivae normal, anicteric sclerae ENMT: external ear and nose normal, oropharynx normal Respiratory: normal respiratory effort, lungs clear to auscultation Cardiovascular: RRR, no murmur, no edema Gastrointestinal (Abdomen): Inspection/Auscultation: normal bowel sounds Percussion/Palpation: + abdomen tender (RUQ ) and abdomen soft Skin: no rashes, warm and dry no jaundice Neurologic: Motor/Sensory: no asterixis Psychiatric: A+Ox3, euthymic affect Lymphatic: no lymphedema
--- NOTE | 2018-11-13 13:12 | Hospitalist Progress Note ---
Date of Service November 13, 2018 Assessment & Plan (1) Hypotension: -Patient sent from [facility] for evaluation of hypotension and hypoxia -Per Dr. Wood, patient was significantly hypotensive with dialysis yesterday -In the ED, initial BP 97/68 which improved with 500 cc NSS -Likely secondary to dehydration/hypovolemia and no evidence of sepsis -Continue to monitor BPs -Does have history of orthostatic hypotension, continue chronic midodrine -Blood pressure remains stable (2) Hypoxia: On room air and she desaturated to 88% which improved with 2 L of oxygen via nasal cannula Etiology unclear, CXR shows developing congestion however patient does not appear to be overtly volume overloaded; no infiltrate noted on CXR Doubt any pulmonary embolism given the INR 2.0 and above Denies any shortness of breath at rest Saturating well on 2 L of nasal cannula oxygen No acute shortness of breath at (3) Elevated troponin: Troponin was elevated significant May have NST GIUSEPPE No significant EKG changes Appreciate cardiology input and recommendation Patient is free of any pain No more chest pain and no CHF (4) CAD (coronary artery disease): (5) Ischemic cardiomyopathy: -Troponin on presentation 2.34, EKG does not show acute ST changes -Patient reporting chest pain however seems to be musculoskeletal in nature and not similar to anginal equivalent in the past -History of CAD, S/P KAROLINE to mid circumflex 02/2018 and BMS to circumflex 2015, chronic RCA occlusion -Case discussed with Dr. Venegas who advised initiating heparin drip however unable to at this time due to coagulopathy -Continue cycle cardiac enzymes, check resting echo -Continue aspirin and Plavix; beta-silvia and nitrate as BP allows; holding statin due to elevated LFTs -Denies any cardiac symptoms (6) Abnormal LFTs: Likely multifactorial Her ALT was highly elevated in August LFTs are elevated at this time likely secondary to hypoxia/drug- induced/hepatitis/fatty liver with cirrhosis No portal vein thrombosis on ultrasound Appreciate GI input and recommendation She has been on Mucomyst and will finish the course-Mucomyst has been stopped this morning on 11/12 LFTs have been improving Received vitamin K 5 mg orally yesterday LFTs improving and INR is 1.5 today Repeat LFTs shows improvement Ultrasound of the liver did not show any significant cirrhosis and/or fatty infiltration of the liver (7) Coagulopathy: -On admission, patient found to have elevated AST and ALT -Initial INR 1.9 with repeat being 2.6 -No history of hepatic disease in the past -? Shock liver from hypotension yesterday -GI consult, case discussed with Dr. Eduardo who advises obtaining hepatitis panel, CMV, EBV, HSV; trend LFTs and coags; start Mucomyst drip per protocol -Liver ultrasound with portal vein Doppler-negative for any thrombus -We will monitor INR-1.7 today 11/12 -INR is 1.5 (8) History of right below knee amputation: -S/P right BKA on 10/[address] Jones -Incisional petra are intact, wound appears to be healing well, no signs of infection (9) Anemia associated with chronic renal failure: -Hgb baseline (10) Eschar of finger: -Left second finger -Following with Dr. Pryor -No signs of active infection (11) ESRD (end stage renal disease) on dialysis: -Nephrology consult for dialysis orders -Continue routine renal medication -Continue hemodialysis (12) DM type 2 (diabetes mellitus, type 2): -Hgb A1c 7.3 08/2018 -Lantus and NovoLog per protocol while hospitalized (13) GERD (gastroesophageal reflux disease): -Continue PPI (14) DVT prophylaxis: -None needed at this time, INR 2.6 -Received vitamin K and INR is 1.5 today Remains stable clinically Likely to be discharged tomorrow after hemodialysis Subjective The patient was seen and examined in telemetry unit She feels a lot better but he still complains some discomfort in the epigastrium Nausea or vomiting or any abdominal distention Denies any chest pain and/or palpitation 11/12 She has been weak and lethargic Denies any chest pain and/or more shortness of breath Still complains to have some epigastric discomfort without any nausea and/or vomiting or distention 11/13 Complaints of weakness but no other symptoms Denies any chest pain and/or palpitation Abdominal pain is controlled No fever, chills or Reiger's Physical Exam Vital Signs (Past 24 Hours): Last Vital Signs Temp 37.2 C 11/13/18 12:40 Pulse 85 11/13/18 12:40 Resp 20 11/13/18 12:40 BP 121/72 11/13/18 12:40 Pulse Ox 98 11/13/18 12:40 Physical Exam: Looks pale without any apparent distress at rest Constitutional: WD/WN, vitals as above well developed, + ill appearing and + obese Eyes: PERRL, conjunctivae normal, anicteric sclerae ENMT: external ear and nose normal, oropharynx normal Respiratory: normal respiratory effort; no respiratory distress Auscultation: + diminished lung sounds and + crackles (Minimal crackles at the bases) Cardiovascular: Rate/Rhythm: regular rate and regular rhythm Vessels: normal peripheral pulses Extremities: no edema Gastrointestinal (Abdomen): Inspection/Auscultation: abdomen normal to inspection and normal bowel sounds Percussion/Palpation: + abdomen tender (Mildly tender in the epigastrium) and abdomen soft Musculoskeletal: no cyanosis or clubbing, extremities motor strength 5/5 Skin: no rashes, warm and dry Neurologic: PERRL, EOMI, accommodation nl, no face palsy, no dysarthria Psychiatric: A+Ox3, euthymic affect Results & Data Laboratory Results Short CBC 11/13/18 Range/Units 07:20 WBC 8.72 (4.8-10.8) K/uL Hgb 9.2 L (12.0-16.0) g/dL Hct 32.1 L (37-47) % Plt Count 378 (130-400) K/uL BMP 11/13/18 07:20 Sodium 134 L Potassium 4.2 D Chloride 97 L Carbon Dioxide 28 BUN 30 H Creatinine 4.57 H* D Glucose 117 H Calcium 9.8 Liver Function 11/13/18 Range/Units 07:20 Total Bilirubin 0.9 (0.2-1) mg/dl AST 73 H (15-37) U/L ALT 100 H (12-78) U/L Alkaline Phosphatase 125 H (45-117) U/L Albumin 1.9 L (3.4-5.0) gm/dl Medications Administered Current Inpatient Medications Aspirin (Ecotrin Ectab) 81 mg PO [facility] Stop: 12/11/18 08:59 Last Admin: 11/13/18 07:51 Dose: 81 mg Documented by: Clopidogrel Bisulfate (Plavix) [facility] [place] Stop: 12/11/18 08:59 Last Admin: 11/13/18 07:50 Dose: 75 mg Documented by: Dextrose (Dextrose 50%) 25 - 50 ml IV UD PRN; Protocol PRN Reason: Hypoglycemia Protocol Stop: 12/10/18 16:09 Docusate Sodium (Colace) 100 mg PO BID [facility] Stop: 12/10/18 20:59 Last Admin: 11/13/18 07:50 Dose: 100 mg Documented by: Gabapentin (Neurontin) 300 mg PO HS [facility] Stop: 12/10/18 20:59 Last Admin: 11/12/18 22:46 Dose: Not Given Documented by: Glucagon (Glucagen) 1 mg SQ UD PRN; Protocol PRN Reason: Hypoglycemia Protocol Stop: 12/10/18 16:09 Glucose (Glucose 40%) 15 - 30 gm PO UD PRN; Protocol PRN Reason: Hypoglycemia Protocol Stop: 12/10/18 16:09 Glucose (Dex4 Glucose) 4 - 8 tabs PO UD PRN; Protocol PRN Reason: Hypoglycemia Protocol Stop: 12/10/18 16:09 Iron Sucrose 100 mg/ Syringe 5 mls @ 1 mls/min IV TuThSa@0600 JIHAN Stop: 12/11/18 05:59 Last Admin: 11/11/18 11:07 Dose: 1 mls/min Documented by: Insulin Aspart (Novolog Flexpen) 0 units SC ACHS JIHAN Stop: 12/10/18 16:29 Last Admin: 11/13/18 11:42 Dose: 4 units Documented by: Insulin Glargine (Lantus Solostar Pen) 5 units SC Q12 JIHAN Stop: 12/10/18 16:59 Last Admin: 11/13/18 07:53 Dose: 5 units Documented by: Isosorbide Mononitrate (Imdur Extended Rel) 60 mg PO QAM [facility] Stop: 12/11/18 08:59 Last Admin: 11/13/18 11:40 Dose: 60 mg Documented by: Levothyroxine Sodium (Synthroid) 50 mcg PO DAILYBB [facility] Stop: 12/11/18 06:29 Last Admin: 11/13/18 06:09 Dose: 50 mcg Documented by: Lidocaine (Lidoderm 5%) 1 patch TD QAM [facility] Stop: 12/11/18 08:59 Last Admin: 11/13/18 10:11 Dose: Not Given Documented by: Lorazepam (Ativan) 0.5 mg PO DAILY PRN PRN Reason: Anxiety Stop: 12/10/18 16:00 Magnesium Hydroxide (Milk Of Magnesia) 30 ml PO DAILY PRN PRN Reason: Constipation Stop: 12/10/18 16:00 Meclizine HCl (Antivert) 25 mg PO TID PRN PRN Reason: Dizziness Stop: 12/10/18 16:00 Metoprolol Tartrate (Lopressor) 12.5 mg PO BID [facility] Stop: 12/10/18 20:59 Last Admin: 11/13/18 11:40 Dose: 12.5 mg Documented by: Midodrine (Proamatine) 10 mg PO TID@0700,1200,1700 [facility] Stop: 12/10/18 16:59 Last Admin: 11/13/18 11:40 Dose: 10 mg Documented by: Miscellaneous (Order Awaiting Action) 1 ea N/A QS [facility] Stop: 12/11/18 00:00 Last Admin: 11/13/18 07:23 Dose: Not Given Documented by: Miscellaneous (Remove Lidoderm Patch) 1 ea N/A DAILY@2100 [facility] Stop: 12/10/18 20:59 Last Admin: 11/12/18 23:18 Dose: Not Given Documented by: Miscellaneous (Carbohydrates For Hypoglycemia) 15 - 30 gm PO UD PRN PRN Reason: Hypoglycemia Treatment Stop: 12/10/18 16:09 Morphine Sulfate (Morphine Sulfate Ir) 7.5 mg PO Q6H PRN PRN Reason: Pain Stop: 11/24/18 17:48 Last Admin: 11/13/18 10:20 Dose: 7.5 mg Documented by: Nystatin (Mycostatin) 1 appln EXT BID [facility] Stop: 12/10/18 20:59 Last Admin: 11/13/18 10:10 Dose: 1 appln Documented by: Ondansetron HCl (Zofran) 4 mg PO QID PRN PRN Reason: Nausea Stop: 12/10/18 16:00 Last Admin: 11/11/18 19:44 Dose: 4 mg Documented by: Pantoprazole Sodium (Protonix) 40 mg PO QAM [facility] Stop: 12/11/18 08:59 Last Admin: 11/13/18 07:51 Dose: 40 mg Documented by: Polyethylene Glycol (Miralax Powder Packet) 17 gm PO QDL PRN PRN Reason: Constipation Stop: 12/10/18 16:00 Senna/Docusate Sodium (Senokot S) 1 tab PO QDL PRN PRN Reason: Constipation Stop: 12/10/18 16:00 Sertraline HCl (Zoloft) 25 mg PO QAM [facility] Stop: 12/11/18 08:59 Last Admin: 11/13/18 10:10 Dose: Not Given Documented by: Sevelamer HCl (Renagel) 3,200 mg PO TIDM [facility] Stop: 12/10/18 16:59 Last Admin: 11/13/18 11:41 Dose: 3,200 mg Documented by: Vitamin B Complex/Folic Acid (Nephrocaps) 1 cap PO QAM [facility] Stop: 12/11/18 08:59 Last Admin: 11/13/18 07:50 Dose: 1 cap Documented by: (1) CAD (coronary artery disease) Coronary Disease-Associated Artery/Lesion type: [place] artery [place] vs. transplanted heart: [place] heart Associated angina: without angina Qualified Code(s): I25.10 - Atherosclerotic heart disease of [place] coronary artery without angina pectoris (2) DM type 2 (diabetes mellitus, type 2) Diabetes mellitus fci insulin use: with fci use Diabetes mellitus complication status: with circulatory complication Diabetes mellitus complication detail: with peripheral angiopathy with gangrene Qualified Code(s): E11.52 - Type 2 diabetes mellitus with diabetic peripheral angiopathy with gangrene; Z79.4 - shelter (current) use of insulin (3) GERD (gastroesophageal reflux disease) Esophagitis presence: without esophagitis Qualified Code(s): K21.9 - Gastro- esophageal reflux disease without esophagitis
--- NOTE | 2018-11-13 15:57 | Cardiology Progress Note ---
Date of Service November 13, 2018 Assessment & Plan (1) Elevated troponin: 2. Coronary artery disease post prior PCI to circumflex last 02/2018, known chronically occluded RCA 3. Ischemic cardiomyopathy, EF 35% 4. 2 weeks postop right BKA 5. End-stage renal disease on HD 6. PAD post right SFA stenting 7. Type 2 diabetes 8. Pleuritic chest pain 9. Elevated LFTs No recurrent chest pain. Hemodynamically and electrically stable. Well perfused on exam, minimal vascular congestion on exam. LV function unchanged on echo. No plan for further cardiac testing. OK with discontinuing telemetry. Continue home DAPT, antihypertensives. Cardiology to sign off. Please contact if questions. Subjective No recurrent chest pain. Still somewhat short of breath, fatigued. Blood pressures stable. Telemetry -- no events. Review of Systems All systems reviewed & are unremarkable except as noted in HPI & below Physical Exam Vital Signs (Past 24 Hours): Last Vital Signs Temp 37.0 C 11/13/18 15:07 Pulse 75 11/13/18 15:07 Resp 18 11/13/18 15:07 BP 111/79 11/13/18 15:07 Pulse Ox 96 11/13/18 15:07 Constitutional: WD/WN, vitals as above Eyes: sclerae not anicteric Respiratory: Auscultation: + diminished lung sounds Cardiovascular: Rate/Rhythm: regular rate Heart Sounds: no murmur Gastrointestinal (Abdomen): Inspection/Auscultation: normal bowel sounds Musculoskeletal: no cyanosis or clubbing, extremities motor strength 5/5 Skin: mild erythema surrounding stables at RT BKA access site. Neurologic: no focal motor deficits
--- NOTE | 2018-11-13 18:00 | Nephrology Progress Note ---
Date of Service November 13, 2018 Assessment & Plan (1) ESRD (end stage renal disease) on dialysis: plan dialysis tomorrow for 4 hours, blood flow 400, dialysate flow 600 and target UF 3 L. -she does have developing HF on XRay so will likely need some fluid removal tomorrow; -cont BB and midodrine -f/u cardiology recommendations -she had been getting IV iron and epo w/ HD which will continue; binders also continued Subjective ESRD patient seen in follow-up. She reports shortness of breath and fatigue. She still has pain in the leg. Her stump is healing well. Review of Systems All systems reviewed & are unremarkable except as noted in HPI & below Physical Exam Vital Signs (Past 24 Hours): Last Vital Signs Temp 37.0 C 11/13/18 17:15 Pulse 75 11/13/18 17:15 Resp 20 11/13/18 17:15 BP 127/85 11/13/18 17:15 Pulse Ox 95 11/13/18 17:15 Physical Exam: General exam: Obese female, appears comfortable, no acute distress HEENT: Pupils are equal and reactive to light Neck: No JVD, neck is supple trachea is midline Respiratory system: Clear breath sounds bilaterally. Gastrointestinal: Abdomen is soft, non distended, non tender, bowel sounds are present CVS: Regular rate and rhythm. No murmurs, rubs or gallops Musculoskeletal: No joint or muscle tenderness Extremities: Non tender, no edema, peripheral pulses are present. Right leg amputation Neuro: Oriented, no tremors, no focal neurological deficits Skin: No rashes Results & Data Laboratory Results Labs reviewed including sodium of 134, potassium of 4.2
[2018-11-13] MEDS ORDERED: SODIUM CHLORIDE 0.9% 1000ML 1,000 ML IV PRN (18:01)
[2018-11-13] MEDS ORDERED: MoRPHine SULFATE 2 MG/ML CARP IV STA (19:56)
[2018-11-13] MEDS ORDERED: MoRPHine SULFATE 2 MG/ML CARP ONE (20:15)
[2018-11-13] MEDS: GABAPENTIN 300 MG CAP PO SCH (20:38)
[2018-11-14] MEDS: LEVOTHYROXINE SODIUM 50 MCG TABLET PO SCH (05:36)
[2018-11-14] MEDS: MIDODRINE HCL 10 MG TAB PO SCH ×3 (05:37→20:42)
[2018-11-14] MEDS ORDERED: EPOETIN ALFA 10,000 UNITS/ML VIAL IV ONE (07:00)
[2018-11-14] MEDS: INSULIN ASPART 100 UNITS/ML 3 ML PEN SC SCH ×4 (09:40→20:46)
[2018-11-14] MEDS: INSULIN GLARGINE SOLOSTAR 100 UNITS/ML 3 ML PEN SC SCH ×2 (09:40→20:45)
[2018-11-14] MEDS: SEVELAMER HCL 800 MG TABLET PO SCH ×3 (09:53→20:41)
--- NOTE | 2018-11-14 10:23 | Nephrology Progress Note ---
Date of Service November 14, 2018 Assessment & Plan (1) ESRD (end stage renal disease) on dialysis: ESRD patient planned for dialysis today for 4 hours, blood flow 400, dialysate flow 600 and target UF 3 L. She appears volume overloaded on physical exam although could be due to atelectasis given patient is in bed all the time. Will attempt 3 L UF today. -cont BB and midodrine -she had been getting IV iron and epo w/ HD which will continue; binders also continued Subjective ESRD patient seen in follow-up. She reports shortness of breath and fatigue. She still has pain in the leg. Her stump is healing well. Patient walking with PT at the time of my visit this morning. She gets lightheaded with sitting up on the bed. Constitutional: + fatigue and + weakness Musculoskeletal: + muscle weakness Neurologic: + generalized weakness; no confusion and no memory loss Psychiatric: + depression Endocrine: + fatigue Physical Exam Vital Signs (Past 24 Hours): Last Vital Signs Temp 36.4 C L 11/14/18 07:32 Pulse 72 11/14/18 07:32 Resp 18 11/14/18 07:32 BP 101/65 11/14/18 07:32 Pulse Ox 98 11/14/18 07:32 Physical Exam: General exam: Appears comfortable, no acute distress HEENT: Pupils are equal and reactive to light Neck: No JVD, neck is supple trachea is midline Respiratory system: Crackles bilaterally in the bases . Gastrointestinal: Abdomen is soft, non distended, non tender, bowel sounds are present CVS: Regular rate and rhythm. No murmurs, rubs or gallops Musculoskeletal: No joint or muscle tenderness. Right BKA Extremities: Non tender, no edema, peripheral pulses are present Neuro: Oriented, no tremors, no focal neurological deficits Skin: No rashes Acess: Left upper arm AV fistula with good bruit Results & Data Laboratory Results trop 1.6, glucose 81
[2018-11-14] MEDS: CLOPIDOGREL BISULFATE 75 MG TAB PO SCH (10:50)
[2018-11-14] MEDS: DOCUSATE SODIUM 100 MG CAP PO SCH ×2 (10:50→20:47)
[2018-11-14] MEDS: LIDOCAINE 5% 1 PATCH TD SCH (10:51)
[2018-11-14] MEDS: SERTRALINE HCL 50 MG TABLET PO SCH (10:51)
[2018-11-14] MEDS: NEPHROCAPS PO SCH (10:52)
[2018-11-14] MEDS: ISOSORBIDE MONO EXTENDED REL 60 MG TABCR PO SCH (10:52)
[2018-11-14] MEDS: ASPIRIN 81 MG ECTAB PO SCH (10:52)
[2018-11-14] MEDS: PANTOprazole 40 MG TAB PO SCH (10:52)
[2018-11-14] MEDS: METOPROLOL TARTRATE 25 MG TAB PO SCH ×2 (10:53→20:41)
[2018-11-14] MEDS: NYSTATIN POWDER 15GM BTL EXT SCH ×2 (10:53→20:42)
[2018-11-14 12:02] LABS: INR 1.5 (0.9-1.1); Prothrombin Time 14.6 Seconds (9.0-12.0)
[2018-11-14 12:47] LABS: Albumin Globulin Ratio 0.3 (0.9-2); BUN Creatinine Ratio 7.3 (10-20); Bilirubin,Total 1.2 mg/dl (0.2-1); Creatinine Clr Calc Pharmacy 14.1 ml/min; Est GFR (African American) 9.4; Est GFR (Non-African American) 8.1; Globulin 5.8 gm/dl (2.5-4.0); Total Protein 7.8 gm/dl (6.4-8.2)
--- NOTE | 2018-11-14 12:55 | Gastroenterology Progress Note ---
Date of Service November 14, 2018 Assessment & Plan (1) Abnormal LFTs: 52 yo presenting with chest pain and hypoexemia with recent R BKA and chronic CAD and ESRD on HD with associated elevated LFT's. Suspect ischemic hepatopathy (having hypotensive episodes during hemodialysis) but other DDx inc lude:Tylenol DILI, infection, R HF, hemolysis, DIC, rhabdomyolosis. RUQ w/o overt abnormalities. Portal u/s showed patent hepatic and portal veins. Hepatitis B,C negative. Transminases normalizing. Tbili, and alk phos elevated which is expected. - Trend LFTs - F/U infectious serologies. - Will obtain MRCP to r/o biliary stone given sludge in RUQ u/s and pt was having RUQ abd pain yesterday. - Recall if needed Supervising Physician Co-Signing Physician Notes I performed a history and physical examination of the patient, including specifically on physical exam - soft, nontender abdomen. I have discussed the patient's management with Haley. Please refer to the nurse practitioner's note for the documented findings and plan of care. Transaminases now normalized and T.bili is slightly elevated which is expected as bili usually lags behind transaminases. This will also normalize soon. No biliary obstruction on MRCP. Managment per Renal and cardiology to avoid hypotension Recall GI if needed. Subjective Pt stuporous today, I'm not able to obtain much ROS. She will answer when name called and open her eyes when asked to. But unable to tell me her , not oriented to time. She is aware she's in [facility]. Denies abd pain when asked, no signs of N/V. Noted LFTs: Tbili up to 1.2, but transaminases normalizing. AP similarly up at 127 Physical Exam Vital Signs (Past 24 Hours): Last Vital Signs Temp 36.4 C L 11/14/18 07:32 Pulse 78 11/14/18 10:50 Resp 18 11/14/18 07:32 BP 111/63 11/14/18 10:50 Pulse Ox 98 11/14/18 07:32 Constitutional: WD/WN, vitals as above + altered mental status, cooperative and comfortable Eyes: PERRL, conjunctivae normal, anicteric sclerae ENMT: external ear and nose normal, oropharynx normal Respiratory: normal respiratory effort; no respiratory distress Auscultation: + diminished lung sounds Cardiovascular: RRR, no murmur, no edema Gastrointestinal (Abdomen): normal bowel sounds, soft, nontender, no hepatosplenomegaly Musculoskeletal: R BKA Skin: no rashes, warm and dry no jaundice Neurologic: Motor/Sensory: no asterixis Psychiatric: Orientation: oriented to place Stuporous Lymphatic: no lymphedema
--- NOTE | 2018-11-14 13:59 | Magnetic Resonance Report ---
Study: MRCP HISTORY: Pain. Nausea. COMPARISON: 04/27/2013 FINDINGS: Moderate body wall anasarca. Small bilateral pleural effusions. Liver is uniform. Spleen pa ncreas are unremarkable. Moderate atrophy kidneys. Nonobstructive upper abdominal bowel pattern. Debr is is noted within the gallbladder. MRCP component of the study is compromised due to patient respiratory and somatic motion. No gross ab normality within limitations of severe patient motion. IMPRESSION: 1. Severely limited exam due to patient respiratory and somatic motion. 2. Virtually nondiagnostic MRCP with no evidence for biliary ductal distention. 3. Body wall anasarca. 4. Bilateral pleural effusions. 5. Gravel and/or debris/small gallstones within the gallbladder lumen. Electronically signed by: Edmundo Lam M.D. 11/14/2018 1:58 PM
--- NOTE | 2018-11-14 14:53 | Hospitalist Progress Note ---
Date of Service November 14, 2018 Assessment & Plan (1) Hypotension: -Patient sent from [facility] for evaluation of hypotension and hypoxia -Per Dr. Wood, patient was significantly hypotensive with dialysis yesterday -In the ED, initial BP 97/68 which improved with 500 cc NSS -Likely secondary to dehydration/hypovolemia and no evidence of sepsis -Continue to monitor BPs -Does have history of orthostatic hypotension, continue chronic midodrine -Blood pressure is controlled now (2) Hypoxia: On room air and she desaturated to 88% which improved with 2 L of oxygen via nasal cannula Etiology unclear, CXR shows developing congestion however patient does not appear to be overtly volume overloaded; no infiltrate noted on CXR Doubt any pulmonary embolism given the INR 2.0 and above Denies any shortness of breath at rest Saturating well on 2 L of nasal cannula oxygen No acute shortness of breath at at rest (3) Elevated troponin: Troponin was elevated significant May have NST GIUSEPPE No significant EKG changes Appreciate cardiology input and recommendation Patient is free of any pain No more chest pain and no CHF Appreciate cardiology input and recommendation (4) CAD (coronary artery disease): (5) Ischemic cardiomyopathy: -Troponin on presentation 2.34, EKG does not show acute ST changes -Patient reporting chest pain however seems to be musculoskeletal in nature and not similar to anginal equivalent in the past -History of CAD, S/P KAROLINE to mid circumflex 02/2018 and BMS to circumflex 2015, chronic RCA occlusion -Case discussed with Dr. Venegas who advised initiating heparin drip however unable to at this time due to coagulopathy -Continue cycle cardiac enzymes, check resting echo -Continue aspirin and Plavix; beta-silvia and nitrate as BP allows; holding statin due to elevated LFTs -Denies any cardiac symptoms (6) Abnormal LFTs: Likely multifactorial Her ALT was highly elevated in August LFTs are elevated at this time likely secondary to hypoxia/drug- induced/hepatitis/fatty liver with cirrhosis No portal vein thrombosis on ultrasound Appreciate GI input and recommendation She has been on Mucomyst and will finish the course-Mucomyst has been stopped this morning on 11/12 LFTs have been improving Received vitamin K 5 mg orally yesterday LFTs improving and INR is 1.5 today Repeat LFTs shows improvement Ultrasound of the liver did not show any significant cirrhosis and/or fatty infiltration of the liver MRCP-unremarkable, a few gallstones but no obstruction and no biliary ductal dil atation (7) Coagulopathy: -On admission, patient found to have elevated AST and ALT -Initial INR 1.9 with repeat being 2.6 -No history of hepatic disease in the past -? Shock liver from hypotension yesterday -GI consult, case discussed with Dr. Eduardo who advises obtaining hepatitis panel, CMV, EBV, HSV; trend LFTs and coags; start Mucomyst drip per protocol -Liver ultrasound with portal vein Doppler-negative for any thrombus -We will monitor INR-1.7 today 11/12 -INR is 1.5 (8) History of right below knee amputation: -S/P right BKA on 10/[address] Jones -Incisional petra are intact, wound appears to be healing well, no signs of infection (9) Anemia associated with chronic renal failure: -Hgb baseline (10) Eschar of finger: -Left second finger -Following with Dr. Pryor -No signs of active infection (11) ESRD (end stage renal disease) on dialysis: -Nephrology consult for dialysis orders -Continue routine renal medication -Continue hemodialysis -Likely to be discharged in a day or 2 (12) DM type 2 (diabetes mellitus, type 2): -Hgb A1c 7.3 08/2018 -Lantus and NovoLog per protocol while hospitalized (13) GERD (gastroesophageal reflux disease): -Continue PPI (14) DVT prophylaxis: -None needed at this time, INR 2.6 -Received vitamin K and INR is 1.5 today Remains very weak and lethargic today to be discharged Subjective The patient was seen and examined in telemetry unit She feels a lot better but he still complains some discomfort in the epigastrium Nausea or vomiting or any abdominal distention Denies any chest pain and/or palpitation 11/12 She has been weak and lethargic Denies any chest pain and/or more shortness of breath Still complains to have some epigastric discomfort without any nausea and/or vomiting or distention 11/13 Complaints of weakness but no other symptoms Denies any chest pain and/or palpitation Abdominal pain is controlled No fever, chills or Rigors 11/14 Remains very weak and lethargic Complains to have some shortness of breath at rest Awaiting dialysis and MRCP Physical Exam Vital Signs (Past 24 Hours): Last Vital Signs Temp 36.4 C L 11/14/18 07:32 Pulse 78 11/14/18 10:50 Resp 18 11/14/18 07:32 BP 111/63 11/14/18 10:50 Pulse Ox 98 11/14/18 07:32 Physical Exam: Pale looking with some shortness of breath Constitutional: WD/WN, vitals as above well developed, + ill appearing and + obese Eyes: PERRL, conjunctivae normal, anicteric sclerae ENMT: external ear and nose normal, oropharynx normal Respiratory: normal respiratory effort; no respiratory distress Auscultation: + diminished lung sounds and + crackles (Minimal crackles at the bases) Cardiovascular: Rate/Rhythm: regular rate and regular rhythm Vessels: normal peripheral pulses Extremities: no edema Gastrointestinal (Abdomen): Inspection/Auscultation: abdomen normal to inspection and normal bowel sounds Percussion/Palpation: + abdomen tender (Mildly tender in the epigastrium) and abdomen soft Musculoskeletal: no cyanosis or clubbing, extremities motor strength 5/5 Skin: no rashes, warm and dry Neurologic: PERRL, EOMI, accommodation nl, no face palsy, no dysarthria Psychiatric: A+Ox3, euthymic affect Results & Data Laboratory Results BMP 11/14/18 11:42 Sodium 133 L Potassium 5.0 D Chloride 95 L Carbon Dioxide 29 BUN 40 H Creatinine 5.60 H* D Glucose 83 Calcium 10.0 Cardiac Enzymes 11/13/18 11/14/18 11/14/18 Range/Units 20:31 01:40 06:11 Troponin I 1.810 H* 1.870 H* 1.660 H* (0-0.045) ng/ml Liver Function 11/14/18 Range/Units 11:42 Total Bilirubin 1.2 H (0.2-1) mg/dl AST 42 H (15-37) U/L ALT 68 (12-78) U/L Alkaline Phosphatase 127 H (45-117) U/L Albumin 2.0 L (3.4-5.0) gm/dl Medications Administered Current Inpatient Medications Aspirin (Ecotrin Ectab) 81 mg PO [facility] Stop: 12/11/18 08:59 Last Admin: 11/14/18 10:52 Dose: 81 mg Documented by: Clopidogrel Bisulfate (Plavix) 75 mg PO [facility] Stop: 12/11/18 08:59 Last Admin: 11/14/18 10:50 Dose: 75 mg Documented by: Dextrose (Dextrose 50%) 25 - 50 ml IV UD PRN; Protocol PRN Reason: Hypoglycemia Protocol Stop: 12/10/18 16:09 Docusate Sodium (Colace) 100 mg PO BID [facility] Stop: 12/10/18 20:59 Last Admin: 11/14/18 10:50 Dose: 100 mg Documented by: Gabapentin (Neurontin) 300 mg PO HS [facility] Stop: 12/10/18 20:59 Last Admin: 11/13/18 20:38 Dose: 300 mg Documented by: Glucagon (Glucagen) 1 mg SQ UD PRN; Protocol PRN Reason: Hypoglycemia Protocol Stop: 12/10/18 16:09 Glucose (Glucose 40%) 15 - 30 gm PO UD PRN; Protocol PRN Reason: Hypoglycemia Protocol Stop: 12/10/18 16:09 Glucose (Dex4 Glucose) 4 - 8 tabs PO UD PRN; Protocol PRN Reason: Hypoglycemia Protocol Stop: 12/10/18 16:09 Iron Sucrose 100 mg/ Syringe 5 mls @ 1 mls/min IV TuThSa@0600 [facility] Stop: 12/11/18 05:59 Last Admin: 11/11/18 11:07 Dose: 1 mls/min Documented by: Insulin Aspart (Novolog Flexpen) 0 units SC ACHS [facility] Stop: 12/10/18 16:29 Last Admin: 11/14/18 13:34 Dose: Not Given Documented by: Insulin Glargine (Lantus Solostar Pen) 5 units SC Q12 [facility] Stop: 12/10/18 16:59 Last Admin: 11/14/18 09:40 Dose: Not Given Documented by: Isosorbide Mononitrate (Imdur Extended Rel) 60 mg PO QAM [facility] Stop: 12/11/18 08:59 Last Admin: 11/14/18 10:52 Dose: 60 mg Documented by: Levothyroxine Sodium (Synthroid) 50 mcg PO DAILYBB [facility] Stop: 12/11/18 06:29 Last Admin: 11/14/18 05:36 Dose: 50 mcg Documented by: Lidocaine (Lidoderm 5%) 1 patch TD QAM [facility] Stop: 12/11/18 08:59 Last Admin: 11/14/18 10:51 Dose: Not Given Documented by: Lorazepam (Ativan) 0.5 mg PO DAILY PRN PRN Reason: Anxiety Stop: 12/10/18 16:00 Magnesium Hydroxide (Milk Of Magnesia) 30 ml PO DAILY PRN PRN Reason: Constipation Stop: 12/10/18 16:00 Meclizine HCl (Antivert) 25 mg PO TID PRN PRN Reason: Dizziness Stop: 12/10/18 16:00 Metoprolol Tartrate (Lopressor) 12.5 mg PO BID [facility] Stop: 12/10/18 20:59 Last Admin: 11/14/18 10:53 Dose: 12.5 mg Documented by: Midodrine (Proamatine) 10 mg PO TID@0700,1200,1700 [facility] Stop: 12/10/18 16:59 Last Admin: 11/14/18 13:57 Dose: 10 mg Documented by: Miscellaneous (Order Awaiting Action) 1 ea N/A QS [facility] Stop: 12/11/18 00:00 Last Admin: 11/14/18 09:52 Dose: Not Given Documented by: Miscellaneous (Remove Lidoderm Patch) 1 ea N/A DAILY@2100 [facility] Stop: 12/10/18 20:59 Last Admin: 11/13/18 20:34 Dose: Not Given Documented by: Miscellaneous (Carbohydrates For Hypoglycemia) 15 - 30 gm PO UD PRN PRN Reason: Hypoglycemia Treatment Stop: 12/10/18 16:09 Morphine Sulfate (Morphine Sulfate Ir) 7.5 mg PO Q6H PRN PRN Reason: Pain Stop: 11/24/18 17:48 Last Admin: 11/13/18 10:20 Dose: 7.5 mg Documented by: Nystatin (Mycostatin) 1 appln EXT BID [facility] Stop: 12/10/18 20:59 Last Admin: 11/14/18 10:53 Dose: 1 appln Documented by: Ondansetron HCl (Zofran) 4 mg PO QID PRN PRN Reason: Nausea Stop: 12/10/18 16:00 Last Admin: 11/11/18 19:44 Dose: 4 mg Documented by: Pantoprazole Sodium (Protonix) 40 mg PO QAM [facility] Stop: 12/11/18 08:59 Last Admin: 11/14/18 10:52 Dose: 40 mg Documented by: Polyethylene Glycol (Miralax Powder Packet) 17 gm PO QDL PRN PRN Reason: Constipation Stop: 12/10/18 16:00 Senna/Docusate Sodium (Senokot S) 1 tab PO QDL PRN PRN Reason: Constipation Stop: 12/10/18 16:00 Sertraline HCl (Zoloft) 25 mg PO QAM JIHAN Stop: 12/11/18 08:59 Last Admin: 11/14/18 10:51 Dose: Not Given Documented by: Sevelamer HCl (Renagel) 3,200 mg PO TIDM JIHAN Stop: 12/10/18 16:59 Last Admin: 11/14/18 13:57 Dose: 3,200 mg Documented by: Vitamin B Complex/Folic Acid (Nephrocaps) 1 cap PO QAM [facility] Stop: 12/11/18 08:59 Last Admin: 11/14/18 10:52 Dose: 1 cap Documented by: (1) CAD (coronary artery disease) Coronary Disease-Associated Artery/Lesion type: am[place] artery [place] vs. 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
[2018-11-14] MEDS: IRON SUCROSE 100 MG in SYRINGE 0 ML IV SCH (19:20)
[2018-11-14] MEDS: GABAPENTIN 300 MG CAP PO SCH (20:42)
[2018-11-14] MEDS ORDERED: LEVALBUTEROL HCL 0.63 MG/3 ML NEB NEB PRN (20:58)
[2018-11-15] MEDS: LEVOTHYROXINE SODIUM 50 MCG TABLET PO SCH (05:55)
[2018-11-15] MEDS: MIDODRINE HCL 10 MG TAB PO SCH ×3 (05:55→18:32)
[2018-11-15] MEDS: MoRPHine SULFATE IR 15 MG TAB (IMMEDIATE RELEASE) PO PRN (06:18)
[2018-11-15] MEDS ORDERED: SODIUM CHLORIDE 0.9% 1000ML 1,000 ML IV PRN (09:10)
[2018-11-15 09:50] LABS: Albumin Level 2.1 gm/dl (3.4-5.0); Bilirubin Direct 1.2 mg/dl (0-0.2); Bilirubin,Total 1.5 mg/dl (0.2-1); Total Protein 8.1 gm/dl (6.4-8.2)
[2018-11-15] MEDS: PANTOprazole 40 MG TAB PO SCH (10:11)
[2018-11-15] MEDS: SEVELAMER HCL 800 MG TABLET PO SCH ×3 (10:11→18:16)
[2018-11-15] MEDS: ISOSORBIDE MONO EXTENDED REL 60 MG TABCR PO SCH (10:11)
[2018-11-15] MEDS: SERTRALINE HCL 50 MG TABLET PO SCH ×3 (10:12→21:36)
[2018-11-15] MEDS: METOPROLOL TARTRATE 25 MG TAB PO SCH ×2 (10:12→21:35)
[2018-11-15] MEDS: ASPIRIN 81 MG ECTAB PO SCH (10:12)
[2018-11-15] MEDS: DOCUSATE SODIUM 100 MG CAP PO SCH ×2 (10:12→21:49)
[2018-11-15] MEDS: NEPHROCAPS PO SCH (10:13)
[2018-11-15] MEDS: CLOPIDOGREL BISULFATE 75 MG TAB PO SCH (10:13)
[2018-11-15] MEDS: NYSTATIN POWDER 15GM BTL EXT SCH ×3 (10:14→22:05)
[2018-11-15] MEDS: LIDOCAINE 5% 1 PATCH TD SCH (10:14)
[2018-11-15] MEDS ORDERED: Nursing to Pharmacy Communication ONE (10:25)
[2018-11-15] MEDS: INSULIN ASPART 100 UNITS/ML 3 ML PEN SC SCH ×4 (10:49→21:37)
[2018-11-15] MEDS: INSULIN GLARGINE SOLOSTAR 100 UNITS/ML 3 ML PEN SC SCH ×2 (10:49→21:38)
--- NOTE | 2018-11-15 12:50 | Nephrology Progress Note ---
Date of Service November 15, 2018 Assessment & Plan (1) ESRD (end stage renal disease) on dialysis: ESRD patient on HD TTS. She tolerated HD yesterday. She is still volume overload. Will do 2hr of isolated UF today for net loss of 3litres. Next HD tomorrow. -cont BB and midodrine -Continue IV iron and epo w/ HD; binders also continued Subjective ESRD patient seen in follow-up. She reports shortness of breath and fatigue. She still has pain in the leg. Her stump is healing well. Patient lying in bed. She tolerated HD yesterday. She gets lightheaded with sitting up on the bed. Constitutional: + fatigue and + weakness Cardiovascular: as per Subjective / HPI; no dyspnea, no palpitations and no edema Gastrointestinal: + abdominal pain (some RUQ and R chest); no vomiting and no change in bowel habits Neurologic: + generalized weakness; no confusion and no memory loss Physical Exam Vital Signs (Past 24 Hours): Last Vital Signs Temp 36.5 C 11/15/18 07:53 Pulse 76 11/15/18 07:53 Resp 18 11/15/18 07:53 BP 111/73 11/15/18 07:53 Pulse Ox 96 11/15/18 07:53 Physical Exam: General exam: Appears comfortable, no acute distress HEENT: Pupils are equal and reactive to light Neck: No JVD, neck is supple trachea is midline Respiratory system: reduced breath sounds bilaterally. Gastrointestinal: Abdomen is soft, non distended, non tender, bowel sounds are present CVS: Regular rate and rhythm. No murmurs, rubs or gallops Musculoskeletal: No joint or muscle tenderness Extremities: Non tender, no edema, peripheral pulses are present. Right BKA Neuro: Oriented, no tremors, no focal neurological deficits Skin: No rashes Access: LUANNE AVF good bruit Results & Data Laboratory Results reviewed
--- NOTE | 2018-11-15 12:57 | Hospitalist Progress Note ---
Date of Service November 15, 2018 Assessment & Plan (1) Hypotension: -Patient sent from [facility] for evaluation of hypotension and hypoxia -Per Dr. Wood, patient was significantly hypotensive with dialysis yesterday -In the ED, initial BP 97/68 which improved with 500 cc NSS -Likely secondary to dehydration/hypovolemia and no evidence of sepsis -Continue to monitor BPs -Does have history of orthostatic hypotension, continue chronic midodrine -Blood pressure is controlled now (2) Hypoxia: On room air and she desaturated to 88% which improved with 2 L of oxygen via nasal cannula Etiology unclear, CXR shows developing congestion however patient does not appear to be overtly volume overloaded; no infiltrate noted on CXR Doubt any pulmonary embolism given the INR 2.0 and above Denies any shortness of breath at rest Saturating well on 2 L of nasal cannula oxygen No acute shortness of breath at at rest (3) Elevated troponin: Troponin was elevated significant May have NST GIUSEPPE No significant EKG changes Appreciate cardiology input and recommendation Patient is free of any pain No more chest pain and no CHF Appreciate cardiology input and recommendation (4) CAD (coronary artery disease): (5) Ischemic cardiomyopathy: -Troponin on presentation 2.34, EKG does not show acute ST changes -Patient reporting chest pain however seems to be musculoskeletal in nature and not similar to anginal equivalent in the past -History of CAD, S/P KAROLINE to mid circumflex 02/2018 and BMS to circumflex 2015, chronic RCA occlusion -Case discussed with Dr. Venegas who advised initiating heparin drip however unable to at this time due to coagulopathy -Continue cycle cardiac enzymes, check resting echo -Continue aspirin and Plavix; beta-silvia and nitrate as BP allows; holding statin due to elevated LFTs -Denies any cardiac symptoms (6) Abnormal LFTs: Likely multifactorial Her ALT was highly elevated in August LFTs are elevated at this time likely secondary to hypoxia/drug- induced/hepatitis/fatty liver with cirrhosis No portal vein thrombosis on ultrasound Appreciate GI input and recommendation She has been on Mucomyst and will finish the course-Mucomyst has been stopped this morning on 11/12 LFTs have been improving Received vitamin K 5 mg orally yesterday LFTs improving and INR is 1.5 today Repeat LFTs shows improvement Ultrasound of the liver did not show any significant cirrhosis and/or fatty infiltration of the liver MRCP-unremarkable, a few gallstones but no obstruction and no biliary ductal dil atation Liver function is improved further Denies any abdominal pain but has nausea and vomited once (7) Coagulopathy: -On admission, patient found to have elevated AST and ALT -Initial INR 1.9 with repeat being 2.6 -No history of hepatic disease in the past -? Shock liver from hypotension yesterday -GI consult, case discussed with Dr. Eduardo who advises obtaining hepatitis panel, CMV, EBV, HSV; trend LFTs and coags; start Mucomyst drip per protocol -Liver ultrasound with portal vein Doppler-negative for any thrombus -We will monitor INR-1.7 today 11/12 -INR is 1.5 (8) History of right below knee amputation: -S/P right BKA on 10/[address] Jones -Incisional petra are intact, wound appears to be healing well, no signs of infection (9) Anemia associated with chronic renal failure: -Hgb baseline -We will check hemoglobin tomorrow, 9.2 on (10) Eschar of finger: -Left second finger -Following with Dr. Pryor -No signs of active infection (11) ESRD (end stage renal disease) on dialysis: -Nephrology consult for dialysis orders -Continue routine renal medication -Continue hemodialysis -Likely to be discharged in a day or 2 -Continue hemodialysis (12) DM type 2 (diabetes mellitus, type 2): -Hgb A1c 7.3 08/2018 -Lantus and NovoLog per protocol while hospitalized (13) GERD (gastroesophageal reflux disease): -Continue PPI (14) DVT prophylaxis: -None needed at this time, INR 2.6 -Received vitamin K and INR is 1.5 today Awaiting placement Subjective The patient was seen and examined in telemetry unit She feels a lot better but he still complains some discomfort in the epigastrium Nausea or vomiting or any abdominal distention Denies any chest pain and/or palpitation 11/12 She has been weak and lethargic Denies any chest pain and/or more shortness of breath Still complains to have some epigastric discomfort without any nausea and/or vomiting or distention 11/13 Complaints of weakness but no other symptoms Denies any chest pain and/or palpitation Abdominal pain is controlled No fever, chills or Rigors 11/14 Remains very weak and lethargic Complains to have some shortness of breath at rest Awaiting dialysis and MRCP 11/15 Remains very weak and lethargic Moderate shortness of breath at rest Complains to have nausea and vomited once Going to have dialysis today Physical Exam Vital Signs (Past 24 Hours): Last Vital Signs Temp 36.5 C 11/15/18 07:53 Pulse 76 11/15/18 07:53 Resp 18 11/15/18 07:53 BP 111/73 11/15/18 07:53 Pulse Ox 96 11/15/18 07:53 Physical Exam: Moderate shortness of breath at rest Constitutional: WD/WN, vitals as above well developed, + ill appearing and + obese Eyes: PERRL, conjunctivae normal, anicteric sclerae ENMT: external ear and nose normal, oropharynx normal Respiratory: normal respiratory effort and + respiratory distress (Mild to moderate at rest) Auscultation: + diminished lung sounds and + crackles (Minimal crackles at the bases) Cardiovascular: Rate/Rhythm: regular rate and regular rhythm Vessels: normal peripheral pulses Extremities: no edema Gastrointestinal (Abdomen): Inspection/Auscultation: abdomen normal to inspection and normal bowel sounds Percussion/Palpation: + abdomen tender (Mildly tender in the epigastrium) and abdomen soft Musculoskeletal: no cyanosis or clubbing, extremities motor strength 5/5 Skin: no rashes, warm and dry Neurologic: PERRL, EOMI, accommodation nl, no face palsy, no dysarthria Psychiatric: A+Ox3, euthymic affect Results & Data Laboratory Results Liver Function 11/15/18 Range/Units 08:55 Total Bilirubin 1.5 H (0.2-1) mg/dl Direct Bilirubin 1.2 H (0-0.2) mg/dl AST 31 (15-37) U/L ALT 51 (12-78) U/L Alkaline Phosphatase 153 H (45-117) U/L Albumin 2.1 L (3.4-5.0) gm/dl Medications Administered Current Inpatient Medications Aspirin (Ecotrin Ectab) 81 mg PO [facility] Stop: 12/11/18 08:59 Last Admin: 11/15/18 10:12 Dose: 81 mg Documented by: Clopidogrel Bisulfate (Plavix) 75 mg PO [facility] Stop: 12/11/18 08:59 Last Admin: 11/15/18 10:13 Dose: 75 mg Documented by: Dextrose (Dextrose 50%) 25 - 50 ml IV UD PRN; Protocol PRN Reason: Hypoglycemia Protocol Stop: 12/10/18 16:09 Docusate Sodium (Colace) 100 mg PO BID [facility] Stop: 12/10/18 20:59 Last Admin: 11/15/18 10:12 Dose: 100 mg Documented by: Gabapentin (Neurontin) 300 mg PO HS [facility] Stop: 12/10/18 20:59 Last Admin: 11/14/18 20:42 Dose: 300 mg Documented by: Glucagon (Glucagen) 1 mg SQ UD PRN; Protocol PRN Reason: Hypoglycemia Protocol Stop: 12/10/18 16:09 Glucose (Glucose 40%) 15 - 30 gm PO UD PRN; Protocol PRN Reason: Hypoglycemia Protocol Stop: 12/10/18 16:09 Glucose (Dex4 Glucose) 4 - 8 tabs PO UD PRN; Protocol PRN Reason: Hypoglycemia Protocol Stop: 12/10/18 16:09 Iron Sucrose 100 mg/ Syringe 5 mls @ 1 mls/min IV TuThSa@0600 [facility] Stop: 12/11/18 05:59 Last Admin: 11/14/18 19:20 Dose: 1 mls/min Documented by: Sodium Chloride (Nss 1000ml) 1,000 mls @ 0 mls/hr IV .Q0M PRN PRN Reason: For Hemodialysis Use ONLY Stop: 11/15/18 15:09 Insulin Aspart (Novolog Flexpen) 0 units SC ACHS [facility] Stop: 12/10/18 16:29 Last Admin: 11/15/18 10:49 Dose: Not Given Documented by: Insulin Glargine (Lantus Solostar Pen) 5 units SC Q12 [facility] Stop: 12/10/18 16:59 Last Admin: 11/15/18 10:49 Dose: Not Given Documented by: Isosorbide Mononitrate (Imdur Extended Rel) 60 mg PO QAM [facility] Stop: 12/11/18 08:59 Last Admin: 11/15/18 10:11 Dose: 60 mg Documented by: Levalbuterol HCl (Xopenex 0.63 Mg/3 Ml Neb) 0.63 mg NEB Q4H PRN PRN Reason: Shortness Of Breath Or Wheezin Stop: 12/14/18 20:57 Last Admin: 11/14/18 22:13 Dose: 0.63 mg Documented by: Levothyroxine Sodium (Synthroid) 50 mcg PO DAILYBB [facility] Stop: 12/11/18 06:29 Last Admin: 11/15/18 05:55 Dose: 50 mcg Documented by: Lidocaine (Lidoderm 5%) 1 patch TD QAM [facility] Stop: 12/11/18 08:59 Last Admin: 11/15/18 10:14 Dose: Not Given Documented by: Lorazepam (Ativan) 0.5 mg PO DAILY PRN PRN Reason: Anxiety Stop: 12/10/18 16:00 Magnesium Hydroxide (Milk Of Magnesia) 30 ml PO DAILY PRN PRN Reason: Constipation Stop: 12/10/18 16:00 Meclizine HCl (Antivert) 25 mg PO TID PRN PRN Reason: Dizziness Stop: 12/10/18 16:00 Metoprolol Tartrate (Lopressor) 12.5 mg PO BID [facility] Stop: 12/10/18 20:59 Last Admin: 11/15/18 10:12 Dose: 12.5 mg Documented by: Midodrine (Proamatine) 10 mg PO TID@0700,1200,1700 [facility] Stop: 12/10/18 16:59 Last Admin: 11/15/18 05:55 Dose: 10 mg Documented by: Miscellaneous (Order Awaiting Action) 1 ea N/A QS [facility] Stop: 12/11/18 00:00 Last Admin: 11/15/18 10:10 Dose: Not Given Documented by: Miscellaneous (Remove Lidoderm Patch) 1 ea N/A DAILY@2100 [facility] Stop: 12/10/18 20:59 Last Admin: 11/14/18 20:42 Dose: Not Given Documented by: Miscellaneous (Carbohydrates For Hypoglycemia) 15 - 30 gm PO UD PRN PRN Reason: Hypoglycemia Treatment Stop: 12/10/18 16:09 Morphine Sulfate (Morphine Sulfate Ir) 7.5 mg PO Q6H PRN PRN Reason: Pain Stop: 11/24/18 17:48 Last Admin: 11/15/18 06:18 Dose: 7.5 mg Documented by: Nystatin (Mycostatin) 1 appln EXT BID [facility] Stop: 12/10/18 20:59 Last Admin: 11/15/18 10:14 Dose: 1 appln Documented by: Ondansetron HCl (Zofran) 4 mg PO QID PRN PRN Reason: Nausea Stop: 12/10/18 16:00 Last Admin: 11/11/18 19:44 Dose: 4 mg Documented by: Pantoprazole Sodium (Protonix) 40 mg PO QAM [facility] Stop: 12/11/18 08:59 Last Admin: 11/15/18 10:11 Dose: 40 mg Documented by: Polyethylene Glycol (Miralax Powder Packet) 17 gm PO QDL PRN PRN Reason: Constipation Stop: 12/10/18 16:00 Senna/Docusate Sodium (Senokot S) 1 tab PO QDL PRN PRN Reason: Constipation Stop: 12/10/18 16:00 Sertraline HCl (Zoloft) 25 mg PO TODAY@2100 [facility] Stop: 12/15/18 20:59 Sevelamer HCl (Renagel) 3,200 mg PO TIDM [facility] Stop: 12/10/18 16:59 Last Admin: 11/15/18 10:11 Dose: 3,200 mg Documented by: Vitamin B Complex/Folic Acid (Nephrocaps) 1 cap PO QAM [facility] Stop: 12/11/18 08:59 Last Admin: 11/15/18 10:13 Dose: 1 cap Documented by: (1) CAD (coronary artery disease) Coronary Disease-Associated Artery/Lesion type: [place] artery [place] vs. transplanted heart: [place] heart Associated angina: without angina Qualified Code(s): I25.10 - Atherosclerotic heart disease of [place] coronary artery without angina pectoris (2) DM type 2 (diabetes mellitus, type 2) Diabetes mellitus senior care insulin use: with terminal gauger supervisor use Diabetes mellitus complication status: with circulatory complication Diabetes mellitus complication detail: with peripheral angiopathy with gangrene Qualified Code(s): E11.52 - Type 2 diabetes mellitus with diabetic peripheral angiopathy with gangrene; Z79.4 - buttermaker continuous churn (current) use of insulin (3) GERD (gastroesophageal reflux disease) Esophagitis presence: without esophagitis Qualified Code(s): K21.9 - Gastro- esophageal reflux disease without esophagitis
[2018-11-15] MEDS: GABAPENTIN 300 MG CAP PO SCH (21:35)
[2018-11-16] MEDS: LEVOTHYROXINE SODIUM 50 MCG TABLET PO SCH (05:48)
[2018-11-16] MEDS: MIDODRINE HCL 10 MG TAB PO SCH ×3 (05:48→17:54)
[2018-11-16] MEDS: METOPROLOL TARTRATE 25 MG TAB PO SCH ×2 (08:05→20:41)
[2018-11-16] MEDS: LIDOCAINE 5% 1 PATCH TD SCH (08:06)
[2018-11-16 08:52] LABS: Hematocrit (blood only) 36.4 % (37-47); Hemoglobin 10.3 g/dL (12.0-16.0); Mean Corpuscular Hgb Conc 28.3 g/dL (32-36); Mean Corpuscular Volume 91.2 fL (80-100); Mean Platelet Volume 10.4 fL (7.4-10.4); Platelet Count 418 K/uL (130-400); RDW Coefficient of Variation 20.6 % (11.5-14.5); RDW Standard Deviation 65.9 fL (36.4-46.3); Red Blood Count 3.99 M/uL (4.2-5.4); White Blood Count 8.82 K/uL (4.8-10.8)
[2018-11-16] MEDS: INSULIN GLARGINE SOLOSTAR 100 UNITS/ML 3 ML PEN SC SCH ×2 (08:52→20:50)
[2018-11-16] MEDS: INSULIN ASPART 100 UNITS/ML 3 ML PEN SC SCH ×4 (08:54→20:50)
[2018-11-16] MEDS: SEVELAMER HCL 800 MG TABLET PO SCH ×3 (09:08→17:54)
[2018-11-16 09:30] LABS: Albumin Globulin Ratio 0.4 (0.9-2); Albumin Level 2.1 gm/dl (3.4-5.0); Anisocytosis Present; BUN Creatinine Ratio 6.5 (10-20); Basophils # (auto) 0.02 K/uL (0-0.2); Basophils % (auto) 0.2 %; Bilirubin,Total 1.3 mg/dl (0.2-1); Calcium 10.5 mg/dl (8.5-10.1); Eosinophils # (auto) 0.21 K/uL (0-0.5); Eosinophils % (auto) 2.4 %; Est GFR (African American) 11.9; Est GFR (Non-African American) 10.3; Hypochromasia Present; Immature Granulocytes # (auto) 0.03 K/uL (0.00-0.02); Immature Granulocytes % (auto) 0.3 %; Lymphocytes # (auto) 1.19 K/uL (1.2-3.4); Lymphocytes % (auto) 13.5 %; Macrocytosis Present; Monocytes # (auto) 1.11 K/uL (0.11-0.59); Monocytes % (auto) 12.6 %; Neutrophils # (auto) 6.26 K/uL (1.4-6.5); Potassium 4.6 mmol/L (3.5-5.1); Total Protein 8.1 gm/dl (6.4-8.2)
[2018-11-16] MEDS: IRON SUCROSE 100 MG in SYRINGE 0 ML IV SCH (12:12)
[2018-11-16] MEDS: ASPIRIN 81 MG ECTAB PO SCH (12:13)
[2018-11-16] MEDS: NEPHROCAPS PO SCH (12:14)
[2018-11-16] MEDS: CLOPIDOGREL BISULFATE 75 MG TAB PO SCH (12:14)
[2018-11-16] MEDS: ISOSORBIDE MONO EXTENDED REL 60 MG TABCR PO SCH (12:14)
[2018-11-16] MEDS: PANTOprazole 40 MG TAB PO SCH (12:14)
[2018-11-16] MEDS: NYSTATIN POWDER 15GM BTL EXT SCH ×2 (12:15→20:42)
[2018-11-16] MEDS: DOCUSATE SODIUM 100 MG CAP PO SCH ×2 (12:21→21:03)
--- NOTE | 2018-11-16 14:52 | Hospitalist Progress Note ---
Date of Service November 16, 2018 Assessment & Plan (1) Hypotension: -Patient sent from [facility] for evaluation of hypotension and hypoxia -Per Dr. Wood, patient was significantly hypotensive with dialysis yesterday -In the ED, initial BP 97/68 which improved with 500 cc NSS -Likely secondary to dehydration/hypovolemia and no evidence of sepsis -Continue to monitor BPs -Does have history of orthostatic hypotension, continue chronic midodrine -Gets low blood pressure following dialysis -Blood pressure is reasonable today following dialysis (2) Hypoxia: On room air and she desaturated to 88% which improved with 2 L of oxygen via wilmer al cannula Etiology unclear, CXR shows developing congestion however patient does not appear to be overtly volume overloaded; no infiltrate noted on CXR Doubt any pulmonary embolism given the INR 2.0 and above Denies any shortness of breath at rest Saturating well on 2 L of nasal cannula oxygen No acute shortness of breath at at rest Requiring 1 L of oxygen via nasal cannula to maintain saturation above 90% (3) Elevated troponin: Troponin was elevated significant May have NST GIUSEPPE No significant EKG changes Appreciate cardiology input and recommendation Patient is free of any pain No more chest pain and no CHF Appreciate cardiology input and recommendation (4) CAD (coronary artery disease): (5) Ischemic cardiomyopathy: -Troponin on presentation 2.34, EKG does not show acute ST changes -Patient reporting chest pain however seems to be musculoskeletal in nature and not similar to anginal equivalent in the past -History of CAD, S/P KAROLINE to mid circumflex 02/2018 and BMS to circumflex 2015, chronic RCA occlusion -Case discussed with Dr. Venegas who advised initiating heparin drip however unable to at this time due to coagulopathy -Continue cycle cardiac enzymes, check resting echo -Continue aspirin and Plavix; beta-silvia and nitrate as BP allows; holding statin due to elevated LFTs -Denies any cardiac symptoms (6) Abnormal LFTs: Likely multifactorial Her ALT was highly elevated in August LFTs are elevated at this time likely secondary to hypoxia/drug- induced/hepatitis/fatty liver with cirrhosis No portal vein thrombosis on ultrasound Appreciate GI input and recommendation She has been on Mucomyst and will finish the course-Mucomyst has been stopped this morning on 11/12 LFTs have been improving Received vitamin K 5 mg orally yesterday LFTs improving and INR is 1.5 today Repeat LFTs shows improvement Ultrasound of the liver did not show any significant cirrhosis and/or fatty infiltration of the liver MRCP-unremarkable, a few gallstones but no obstruction and no biliary ductal dilatation Liver function is improved further Denies any abdominal pain but has nausea and vomited once LFTs remain stable (7) Coagulopathy: -On admission, patient found to have elevated AST and ALT -Initial INR 1.9 with repeat being 2.6 -No history of hepatic disease in the past -? Shock liver from hypotension yesterday -GI consult, case discussed with Dr. Eduardo who advises obtaining hepatitis panel, CMV, EBV, HSV; trend LFTs and coags; start Mucomyst drip per protocol -Liver ultrasound with portal vein Doppler-negative for any thrombus -We will monitor INR-1.7 today 11/12 -INR is 1.5 (8) History of right below knee amputation: -S/P right BKA on 10/[address] Jones -Incisional petra are intact, wound appears to be healing well, no signs of infection (9) Anemia associated with chronic renal failure: -Hgb baseline -We will check hemoglobin tomorrow, 9.2 on (10) Eschar of finger: -Left second finger -Following with Dr. Pryor -No signs of active infection (11) ESRD (end stage renal disease) on dialysis: -Nephrology consult for dialysis orders -Continue routine renal medication -Continue hemodialysis -Likely to be discharged in a day or 2 -Continue hemodialysis (12) DM type 2 (diabetes mellitus, type 2): -Hgb A1c 7.3 08/2018 -Lantus and NovoLog per protocol while hospitalized (13) GERD (gastroesophageal reflux disease): -Continue PPI (14) DVT prophylaxis: -None needed at this time, INR 2.6 -Received vitamin K and INR is 1.5 today [address] placement-has been accepted Had a long discussion with family members yesterday Answered all of their questions They were updated about her medical diagnosis and the prognosis Remains a stable today and likely to be discharged tomorrow Subjective The patient was seen and examined in telemetry unit She feels a lot better but he still complains some discomfort in the epigastrium Nausea or vomiting or any abdominal distention Denies any chest pain and/or palpitation 11/12 She has been weak and lethargic Denies any chest pain and/or more shortness of breath Still complains to have some epigastric discomfort without any nausea and/or vomiting or distention 11/13 Complaints of weakness but no other symptoms Denies any chest pain and/or palpitation Abdominal pain is controlled No fever, chills or Rigors 11/14 Remains very weak and lethargic Complains to have some shortness of breath at rest Awaiting dialysis and MRCP 11/15 Remains very weak and lethargic Moderate shortness of breath at rest Complains to have nausea and vomited once Going to have dialysis today 11/16 The patient was seen and examined in medical floor She is a status post dialysis She feels a lot better today but clinically not looking any better She denies any shortness of breath as of today Physical Exam Vital Signs (Past 24 Hours): Last Vital Signs Temp 36.8 C 11/16/18 11:59 Pulse 81 11/16/18 11:59 Resp 20 11/16/18 06:51 BP 100/42 L 11/16/18 11:59 Pulse Ox 93 11/16/18 12:11 Physical Exam: Looks pale with moderate shortness of breath at rest Constitutional: WD/WN, vitals as above well developed, + ill appearing and + obese Eyes: PERRL, conjunctivae normal, anicteric sclerae ENMT: external ear and nose normal, oropharynx normal Respiratory: normal respiratory effort and + respiratory distress (Mild to moderate at rest) Auscultation: + diminished lung sounds and + crackles (Minimal crackles at the bases) Cardiovascular: Rate/Rhythm: regular rate and regular rhythm Vessels: normal peripheral pulses Extremities: no edema Gastrointestinal (Abdomen): Inspection/Auscultation: abdomen normal to inspection and normal bowel sounds Percussion/Palpation: + abdomen tender (Mildly tender in the epigastrium) and abdomen soft Musculoskeletal: Has AK on the right side and 1+ edema on the left Skin: no rashes, warm and dry Neurologic: PERRL, EOMI, accommodation nl, no face palsy, no dysarthria Psychiatric: A+Ox3, euthymic affect Results & Data Laboratory Results Short CBC 11/16/18 Range/Units 08:04 WBC 8.82 (4.8-10.8) K/uL Hgb 10.3 L (12.0-16.0) g/dL Hct 36.4 L (37-47) % Plt Count 418 H (130-400) K/uL BMP 11/16/18 08:04 Sodium 132 L Potassium 4.6 Chloride 97 L Carbon Dioxide 26 BUN 30 H Creatinine 4.61 H* D Glucose 120 H Calcium 10.5 H Liver Function 11/16/18 Range/Units 08:04 Total Bilirubin 1.3 H (0.2-1) mg/dl AST 28 (15-37) U/L ALT 39 (12-78) U/L Alkaline Phosphatase 140 H (45-117) U/L Albumin 2.1 L (3.4-5.0) gm/dl Medications Administered Current Inpatient Medications Aspir[facility]rin Ectab) [facility] [place] [place] Stop: 12/11/18 08:59 Last Admin: 11/16/18 12:13 Dose: 81 mg Documented by: Clopidogrel Bisulfate (Plavix) 75 mg PO QAM [facility] Stop: 12/11/18 08:59 Last Admin: 11/16/18 12:14 Dose: 75 mg Documented by: Dextrose (Dextrose 50%) 25 - 50 ml IV UD PRN; Protocol PRN Reason: Hypoglycemia Protocol Stop: 12/10/18 16:09 Docusate Sodium (Colace) 100 mg PO BID [facility] Stop: 12/10/18 20:59 Last Admin: 11/16/18 12:21 Dose: 100 mg Documented by: Gabapentin (Neurontin) 300 mg PO HS [facility] Stop: 12/10/18 20:59 Last Admin: 11/15/18 21:35 Dose: 300 mg Documented by: Glucagon (Glucagen) 1 mg SQ UD PRN; Protocol PRN Reason: Hypoglycemia Protocol Stop: 12/10/18 16:09 Glucose (Glucose 40%) 15 - 30 gm PO UD PRN; Protocol PRN Reason: Hypoglycemia Protocol Stop: 12/10/18 16:09 Glucose (Dex4 Glucose) 4 - 8 tabs PO UD PRN; Protocol PRN Reason: Hypoglycemia Protocol Stop: 12/10/18 16:09 Iron Sucrose 100 mg/ Syringe 5 mls @ 1 mls/min IV TuThSa@0600 [facility] Stop: 12/11/18 05:59 Last Admin: 11/16/18 12:12 Dose: Not Given Documented by: Insulin Aspart (Novolog Flexpen) 0 units SC ACHS [facility] Stop: 12/10/18 16:29 Last Admin: 11/16/18 08:54 Dose: Not Given Documented by: Insulin Glargine (Lantus Solostar Pen) 5 units SC Q12 [facility] Stop: 12/10/18 16:59 Last Admin: 11/16/18 08:52 Dose: 5 units Documented by: Isosorbide Mononitrate (Imdur Extended Rel) 60 mg PO QAM [facility] Stop: 12/11/18 08:59 Last Admin: 11/16/18 12:14 Dose: 60 mg Documented by: Levalbuterol HCl (Xopenex 0.63 Mg/3 Ml Neb) 0.63 mg NEB Q4H PRN PRN Reason: Shortness Of Breath Or Wheezin Stop: 12/14/18 20:57 Last Admin: 11/14/18 22:13 Dose: 0.63 mg Documented by: Levothyroxine Sodium (Synthroid) 50 mcg PO DAILYBB [facility] Stop: 12/11/18 06:29 Last Admin: 11/16/18 05:48 Dose: 50 mcg Documented by: Lidocaine (Lidoderm 5%) [facility] [place] [place] Stop: 12/11/18 08:59 Last Admin: 11/16/18 08:06 Dose: Not Given Documented by: Lorazepam (Ativan) 0.5 mg PO DAILY PRN PRN Reason: Anxiety Stop: 12/10/18 16:00 Magnesium Hydroxide (Milk Of Magnesia) 30 ml PO DAILY PRN PRN Reason: Constipation Stop: 12/10/18 16:00 Meclizine HCl (Antivert) 25 mg PO TID PRN PRN Reason: Dizziness Stop: 12/10/18 16:00 Metoprolol Tartrate (Lopressor) 12.5 mg PO BID [facility] Stop: 12/10/18 20:59 Last Admin: 11/16/18 08:05 Dose: Not Given Documented by: Midodrine (Proamatine) 10 mg PO TID@0700,1200,1700 [facility] Stop: 12/10/18 16:59 Last Admin: 11/16/18 12:19 Dose: 10 mg Documented by: Miscellaneous (Order Awaiting Action) 1 ea N/A QS [facility] Stop: 12/11/18 00:00 Last Admin: 11/16/18 08:02 Dose: Not Given Documented by: Miscellaneous (Remove Lidoderm Patch) 1 ea N/A DAILY@2100 [facility] Stop: 12/10/18 20:59 Last Admin: 11/15/18 21:52 Dose: Not Given Documented by: Miscellaneous (Carbohydrates For Hypoglycemia) 15 - 30 gm PO UD PRN PRN Reason: Hypoglycemia Treatment Stop: 12/10/18 16:09 Morphine Sulfate (Morphine Sulfate Ir) 7.5 mg PO Q6H PRN PRN Reason: Pain Stop: 11/24/18 17:48 Last Admin: 11/15/18 06:18 Dose: 7.5 mg Documented by: Nystatin (Mycostatin) 1 appln EXT BID JIHAN Stop: 12/10/18 20:59 Last Admin: 11/16/18 12:15 Dose: 1 appln Documented by: Ondansetron HCl (Zofran) 4 mg PO QID PRN PRN Reason: Nausea Stop: 12/10/18 16:00 Last Admin: 11/11/18 19:44 Dose: 4 mg Documented by: Pantoprazole Sodium (Protonix) 40 mg PO QAM [facility] Stop: 12/11/18 08:59 Last Admin: 11/16/18 12:14 Dose: 40 mg Documented by: Polyethylene Glycol (Miralax Powder Packet) 17 gm PO QDL PRN PRN Reason: Constipation Stop: 12/10/18 16:00 Senna/Docusate Sodium (Senokot S) 1 tab PO QDL PRN PRN Reason: Constipation Stop: 12/10/18 16:00 Sertraline HCl (Zoloft) 25 mg PO TODAY@2100 [facility] Stop: 12/15/18 20:59 Last Admin: 11/15/18 21:36 Dose: 25 mg Documented by: Sevelamer HCl (Renagel) 3,200 mg PO TIDM [facility] Stop: 12/10/18 16:59 Last Admin: 11/16/18 09:08 Dose: Not Given Documented by: Vitamin B Complex/Folic Acid (Nephrocaps) 1 cap PO QAM [facility] Stop: 12/11/18 08:59 Last Admin: 11/16/18 12:14 Dose: 1 cap Documented by: (1) CAD (coronary artery disease) Coronary Disease-Associated Artery/Lesion type: [place] artery [place] vs. transplanted heart: [place] heart Associated angina: without angina Qualified Code(s): I25.10 - Atherosclerotic heart disease of [place] coronary artery without angina pectoris (2) DM type 2 (diabetes mellitus, type 2) Diabetes mellitus emt intermediate insulin use: with emt intermediate use Diabetes mellitus complication status: with circulatory complication Diabetes mellitus complication detail: with peripheral angiopathy with gangrene Qualified Code(s): E11.52 - Type 2 diabetes mellitus with diabetic peripheral angiopathy with gangrene; Z79.4 - residential (current) use of insulin (3) GERD (gastroesophageal reflux disease) Esophagitis presence: without esophagitis Qualified Code(s): K21.9 - Gastro- esophageal reflux disease without esophagitis
--- NOTE | 2018-11-16 17:57 | Nephrology Progress Note ---
Date of Service November 16, 2018 Assessment & Plan (1) ESRD (end stage renal disease) on dialysis: ESRD patient on HD TTS. She tolerated HD today with net UF 3l. She is still volume overload. Next HD Tuesday -cont BB and midodrine -Continue IV iron and epo w/ HD; binders also continued Subjective ESRD patient seen in follow-up. She reports shortness of breath and fatigue. She still has pain in the leg. Her stump is healing well. Patient lying in bed. She was seen and examined on HD. Constitutional: + fatigue and + weakness Cardiovascular: as per Subjective / HPI; no dyspnea, no palpitations and no edema Musculoskeletal: + muscle weakness Integumentary: + non-healing lesions Neurologic: + generalized weakness; no confusion and no memory loss Psychiatric: + depression Endocrine: + fatigue Physical Exam Vital Signs (Past 24 Hours): Last Vital Signs Temp 36.8 C 11/16/18 15:08 Pulse 85 11/16/18 15:08 Resp 18 11/16/18 15:08 BP 85/57 L 11/16/18 15:08 Pulse Ox 90 11/16/18 15:08 Physical Exam: General exam: Appears comfortable, no acute distress HEENT: Pupils are equal and reactive to light Neck: No JVD, neck is supple trachea is midline Respiratory system: Clear breath sounds bilaterally. Gastrointestinal: Abdomen is soft, non distended, non tender, bowel sounds are present CVS: Regular rate and rhythm. No murmurs, rubs or gallops Musculoskeletal: No joint or muscle tenderness Extremities: Non tender, no edema, peripheral pulses are present Neuro: Oriented, no tremors, no focal neurological deficits Skin: No rashes Access: left UA AVF good bruit
[2018-11-16] MEDS: SERTRALINE HCL 50 MG TABLET PO SCH (20:54)
[2018-11-16] MEDS: GABAPENTIN 300 MG CAP PO SCH (20:56)
[2018-11-16] MEDS: ONDANSETRON 4 MG TAB PO PRN (22:05)
[2018-11-17] MEDS: LEVOTHYROXINE SODIUM 50 MCG TABLET PO SCH (06:00)
[2018-11-17] MEDS ORDERED: EPOETIN ALFA 10,000 UNITS/ML VIAL IV ONE (07:15)
[2018-11-17 07:52] LABS: INR 1.9 (0.9-1.1); Prothrombin Time 18.9 Seconds (9.0-12.0)
[2018-11-17 07:59] LABS: Hematocrit (blood only) 35.7 % (37-47); Hemoglobin 10.3 g/dL (12.0-16.0); Mean Corpuscular Hgb Conc 28.9 g/dL (32-36); Mean Corpuscular Volume 89.9 fL (80-100); Mean Platelet Volume 10.4 fL (7.4-10.4); Platelet Count 353 K/uL (130-400); RDW Coefficient of Variation 20.2 % (11.5-14.5); RDW Standard Deviation 64.7 fL (36.4-46.3); Red Blood Count 3.97 M/uL (4.2-5.4); White Blood Count 8.98 K/uL (4.8-10.8)
[2018-11-17 08:12] LABS: Anisocytosis Present; Basophilic Stippling 1+; Basophils # (auto) 0.02 K/uL (0-0.2); Basophils % (auto) 0.2 %; Eosinophils # (auto) 0.22 K/uL (0-0.5); Eosinophils % (auto) 2.4 %; Immature Granulocytes # (auto) 0.02 K/uL (0.00-0.02); Immature Granulocytes % (auto) 0.2 %; Lymphocytes # (auto) 1.45 K/uL (1.2-3.4); Lymphocytes % (auto) 16.1 %; Monocytes # (auto) 1.57 K/uL (0.11-0.59); Monocytes % (auto) 17.5 %; Neutrophils % (auto) 63.6 %; Polychromasia 1+; Spherocytes Occasional
[2018-11-17 08:16] LABS: Albumin Globulin Ratio 0.3 (0.9-2); BUN Creatinine Ratio 7.3 (10-20); Bilirubin,Total 1.3 mg/dl (0.2-1); Calcium 10.1 mg/dl (8.5-10.1); Creatinine Clr Calc Pharmacy 14.4 ml/min; Est GFR (African American) 9.7; Est GFR (Non-African American) 8.4; Globulin 5.9 gm/dl (2.5-4.0); Phosphorus 4.8 mg/dl (2.5-4.9); Potassium 4.5 mmol/L (3.5-5.1); Total Protein 7.9 gm/dl (6.4-8.2)
[2018-11-17] MEDS: INSULIN ASPART 100 UNITS/ML 3 ML PEN SC SCH ×4 (09:28→21:05)
[2018-11-17] MEDS: INSULIN GLARGINE SOLOSTAR 100 UNITS/ML 3 ML PEN SC SCH ×2 (09:29→21:04)
[2018-11-17] MEDS: MIDODRINE HCL 10 MG TAB PO SCH ×3 (09:36→18:43)
[2018-11-17] MEDS: SEVELAMER HCL 800 MG TABLET PO SCH ×3 (09:37→18:43)
[2018-11-17] MEDS: ISOSORBIDE MONO EXTENDED REL 60 MG TABCR PO SCH (09:39)
[2018-11-17] MEDS: ASPIRIN 81 MG ECTAB PO SCH (09:39)
[2018-11-17] MEDS: METOPROLOL TARTRATE 25 MG TAB PO SCH ×2 (09:41→22:25)
[2018-11-17] MEDS: PANTOprazole 40 MG TAB PO SCH (09:42)
[2018-11-17] MEDS: NEPHROCAPS PO SCH (09:42)
[2018-11-17] MEDS: CLOPIDOGREL BISULFATE 75 MG TAB PO SCH (09:42)
[2018-11-17] MEDS: LIDOCAINE 5% 1 PATCH TD SCH (09:43)
[2018-11-17] MEDS ORDERED: MICONAZOLE NITRATE POWDER 43 GM EXT PRN (10:50)
[2018-11-17] MEDS: NYSTATIN POWDER 15GM BTL EXT SCH ×2 (13:31→21:49)
--- NOTE | 2018-11-17 18:39 | Nephrology Progress Note ---
Date of Service November 17, 2018 Assessment & Plan (1) ESRD (end stage renal disease) on dialysis: ESRD patient on HD TTS. She tolerated HD yesterday. She is still volume overload. Next HD Tuesday -cont BB and midodrine -Continue IV iron and epo w/ HD; binders also continued Subjective ESRD patient seen in follow-up. She reports shortness of breath and fatigue. She still has pain in the leg. Her stump is healing well. Patient lying in bed. She remains weak and lethergic. I sat her up in bed with the help of RN Constitutional: + fatigue and + weakness Respiratory: as per Subjective / HPI, + pain on inspiration and + pain with cough Cardiovascular: as per Subjective / HPI; no dyspnea, no palpitations and no edema Gastrointestinal: + abdominal pain (some RUQ and R chest); no vomiting and no change in bowel habits Musculoskeletal: + muscle weakness Integumentary: + non-healing lesions Neurologic: + generalized weakness; no confusion and no memory loss Psychiatric: + depression Endocrine: + fatigue Physical Exam Vital Signs (Past 24 Hours): Last Vital Signs Temp 36.5 C 11/17/18 15:42 Pulse 88 11/17/18 15:42 Resp 17 11/17/18 15:42 BP 121/73 11/17/18 15:42 Pulse Ox 95 11/17/18 15:42 Physical Exam: General exam: Appears comfortable, no acute distress HEENT: Pupils are equal and reactive to light Neck: No JVD, neck is supple trachea is midline Respiratory system:Wheezing bilaterally. Gastrointestinal: Abdomen is soft, non distended, non tender, bowel sounds are present CVS: Regular rate and rhythm. No murmurs, rubs or gallops Musculoskeletal: No joint or muscle tenderness Extremities: Non tender, no edema, peripheral pulses are present. right BKA Neuro: Oriented, no tremors, no focal neurological deficits Skin: No rashes
[2018-11-17] MEDS: DOCUSATE SODIUM 100 MG CAP PO SCH ×2 (18:42→21:50)
--- NOTE | 2018-11-17 18:46 | Hospitalist Progress Note ---
Date of Service November 17, 2018 Assessment & Plan (1) Hypotension: -Patient sent from [facility] for evaluation of hypotension and hypoxia -Per Dr. Wood, patient was significantly hypotensive with dialysis yesterday -In the ED, initial BP 97/68 which improved with 500 cc NSS -Likely secondary to dehydration/hypovolemia and no evidence of sepsis -Continue to monitor BPs -Does have history of orthostatic hypotension, continue chronic midodrine -Gets low blood pressure following dialysis -Blood pressure is reasonable today following dialysis -Blood pressure remains in the lower side and occasional postural changes when she is ambulating (2) Hypoxia: On room air and she desaturated to 88% which improved with 2 L of oxygen via nasal cannula Etiology unclear, CXR shows developing congestion however patient does not appear to be overtly volume overloaded; no infiltrate noted on CXR Doubt any pulmonary embolism given the INR 2.0 and above Denies any shortness of breath at rest Saturating well on 2 L of nasal cannula oxygen No acute shortness of breath at at rest Requiring 1 L of oxygen via nasal cannula to maintain saturation above 90% Mild to moderate shortness of breath at rest (3) Elevated troponin: Troponin was elevated significant May have NST GIUSEPPE No significant EKG changes Appreciate cardiology input and recommendation Patient is free of any pain No more chest pain and no CHF Appreciate cardiology input and recommendation (4) CAD (coronary artery disease): (5) Ischemic cardiomyopathy: -Troponin on presentation 2.34, EKG does not show acute ST changes -Patient reporting chest pain however seems to be musculoskeletal in nature and not similar to anginal equivalent in the past -History of CAD, S/P KAROLINE to mid circumflex 02/2018 and BMS to circumflex 2015, chronic RCA occlusion -Case discussed with Dr. Venegas who advised initiating heparin drip however unable to at this time due to coagulopathy -Continue cycle cardiac enzymes, check resting echo -Continue aspirin and Plavix; beta-silvia and nitrate as BP allows; holding statin due to elevated LFTs -Denies any cardiac symptoms (6) Abnormal LFTs: Likely multifactorial Her ALT was highly elevated in August LFTs are elevated at this time likely secondary to hypoxia/drug- induced/hepatitis/fatty liver with cirrhosis No portal vein thrombosis on ultrasound Appreciate GI input and recommendation She has been on Mucomyst and will finish the course-Mucomyst has been stopped this morning on 11/12 LFTs have been improving Received vitamin K 5 mg orally yesterday LFTs improving and INR is 1.5 today Repeat LFTs shows improvement Ultrasound of the liver did not show any significant cirrhosis and/or fatty infiltration of the liver MRCP-unremarkable, a few gallstones but no obstruction and no biliary ductal dilatation Liver function is improved further Denies any abdominal pain but has nausea and vomited once LFTs remain stable but INR is elevated to 1.9 today (7) Coagulopathy: -On admission, patient found to have elevated AST and ALT -Initial INR 1.9 with repeat being 2.6 -No history of hepatic disease in the past -? Shock liver from hypotension yesterday -GI consult, case discussed with Dr. Eduardo who advises obtaining hepatitis panel, CMV, EBV, HSV; trend LFTs and coags; start Mucomyst drip per protocol -Liver ultrasound with portal vein Doppler-negative for any thrombus -We will monitor INR-1.7 today 11/12 -INR is 1.9 on 11/17 (8) History of right below knee amputation: -S/P right BKA on 10/[address] Jones -Incisional petra are intact, wound appears to be healing well, no signs of infection (9) Anemia associated with chronic renal failure: -Hgb baseline -We will check hemoglobin tomorrow, 9.2 on (10) Eschar of finger: -Left second finger -Following with Dr. Pryor -No signs of active infection (11) ESRD (end stage renal disease) on dialysis: -Nephrology consult for dialysis orders -Continue routine renal medication -Continue hemodialysis -Likely to be discharged in a day or 2 -Continue hemodialysis (12) DM type 2 (diabetes mellitus, type 2): -Hgb A1c 7.3 08/2018 -Lantus and NovoLog per protocol while hospitalized (13) GERD (gastroesophageal reflux disease): -Continue PPI (14) DVT prophylaxis: -None needed at this time, INR 2.6 -Received vitamin K and INR is 1.5 today [address] placement-has been accepted Had a long discussion with family members yesterday Answered all of their questions They were updated about her medical diagnosis and the prognosis Remains a stable today and likely to be discharged tomorrow (15) Physical deconditioning: Has multiple comorbid conditions including end-stage renal disease on hemodialysis, cardiomyopathy with EF of 25-30%, abnormal liver function test with increased INR, shortness of breath and requiring oxygen up to 1-2 L to maintain saturation, has been bedbound for a long time especially after right AKA for peripheral vascular disease and ulcer. Detailed discussion was done with her niece yesterday and today We will try more physical therapy and occupational therapy to improve her condition If there is no improvement of her physical condition palliative care consultation should be asked for Discussed with the niece and she is agreeable with it She will not be transferred in this acute condition. Subjective The patient was seen and examined in telemetry unit She feels a lot better but he still complains some discomfort in the epigastrium Nausea or vomiting or any abdominal distention Denies any chest pain and/or palpitation 11/12 She has been weak and lethargic Denies any chest pain and/or more shortness of breath Still complains to have some epigastric discomfort without any nausea and/or vomiting or distention 11/13 Complaints of weakness but no other symptoms Denies any chest pain and/or palpitation Abdominal pain is controlled No fever, chills or Rigors 11/14 Remains very weak and lethargic Complains to have some shortness of breath at rest Awaiting dialysis and MRCP 11/15 Remains very weak and lethargic Moderate shortness of breath at rest Complains to have nausea and vomited once Going to have dialysis today 11/16 The patient was seen and examined in medical floor She is a status post dialysis She feels a lot better today but clinically not looking any better She denies any shortness of breath as of today 11/17 The patient was seen and examined in presence of the knees She remains very lethargic and does not want to participate any physical therapy or occupational therapy She becomes symptomatic on ambulation with dizziness and low blood pressure She has been bedbound for a long time Denies any chest pain and/or palpitation, any abdominal pain, nausea or vom iting, but does have occasional tremors involving the upper extremities Physical Exam Vital Signs (Past 24 Hours): Last Vital Signs Temp 36.5 C 11/17/18 15:42 Pulse 88 11/17/18 15:42 Resp 17 11/17/18 15:42 BP 121/73 11/17/18 15:42 Pulse Ox 95 11/17/18 15:42 Physical Exam: Very pale looking with moderate distress at rest due to shortness of breath Constitutional: WD/WN, vitals as above well developed, + acute distress (Shortness of breath), + ill appearing and + obese Eyes: PERRL, conjunctivae normal, anicteric sclerae ENMT: external ear and nose normal, oropharynx normal Respiratory: normal respiratory effort and + respiratory distress (Mild to moderate at rest) Auscultation: + diminished lung sounds and + crackles (Minimal crackles at the bases) Cardiovascular: Rate/Rhythm: regular rate and regular rhythm Vessels: normal peripheral pulses Extremities: no edema Gastrointestinal (Abdomen): Inspection/Auscultation: abdomen normal to inspection and normal bowel sounds Percussion/Palpation: + abdomen tender (Mildly tender in the epigastrium) and abdomen soft Musculoskeletal: Extremities: + lower leg abnormality (Right AKA) Right Skin: no rashes, warm and dry Neurologic: PERRL, EOMI, accommodation nl, no face palsy, no dysarthria awake and + confused Motor/Sensory: + tremor (Occasional tremor of the upper extremities) Psychiatric: A+Ox3, euthymic affect Results & Data Laboratory Results Short CBC 11/17/18 Range/Units 07:24 WBC 8.98 (4.8-10.8) K/uL Hgb 10.3 L (12.0-16.0) g/dL Hct 35.7 L (37-47) % Plt Count 353 (130-400) K/uL BMP 11/17/18 07:24 Sodium 131 L Potassium 4.5 Chloride 98 Carbon Dioxide 27 BUN 39 H Creatinine 5.45 H* D Glucose 132 H Calcium 10.1 Liver Function 11/17/18 Range/Units 07:24 Total Bilirubin 1.3 H (0.2-1) mg/dl AST 21 (15-37) U/L ALT 30 (12-78) U/L Alkaline Phosphatase 140 H (45-117) U/L Albumin 2.0 L (3.4-5.0) gm/dl Medications Administered Current Inpatient Medications Aspirin (Ecotrin Ectab) 81 mg PO [facility] Stop: 12/11/18 08:59 Last Admin: 11/17/18 09:39 Dose: 81 mg Documented by: Clopidogrel Bisulfate (Plavix) 75 mg PO [facility] Stop: 12/11/18 08:59 Last Admin: 11/17/18 09:42 Dose: 75 mg Documented by: Dextrose (Dextrose 50%) 25 - 50 ml IV UD PRN; Protocol PRN Reason: Hypoglycemia Protocol Stop: 12/10/18 16:09 Docusate Sodium (Colace) 100 mg PO BID [facility] Stop: 12/10/18 20:59 Last Admin: 11/16/18 21:03 Dose: 100 mg Documented by: Gabapentin (Neurontin) 300 mg PO HS [facility] Stop: 12/10/18 20:59 Last Admin: 11/16/18 20:56 Dose: 300 mg Documented by: Glucagon (Glucagen) 1 mg SQ UD PRN; Protocol PRN Reason: Hypoglycemia Protocol Stop: 12/10/18 16:09 Glucose (Glucose 40%) 15 - 30 gm PO UD PRN; Protocol PRN Reason: Hypoglycemia Protocol Stop: 12/10/18 16:09 Glucose (Dex4 Glucose) 4 - 8 tabs PO UD PRN; Protocol PRN Reason: Hypoglycemia Protocol Stop: 12/10/18 16:09 Iron Sucrose 100 mg/ Syringe 5 mls @ 1 mls/min IV TuThSa@0600 [facility] Stop: 12/11/18 05:59 Last Admin: 11/16/18 12:12 Dose: Not Given Documented by: Insulin Aspart (Novolog Flexpen) 0 units SC ACHS [facility] Stop: 12/10/18 16:29 Last Admin: 11/17/18 13:57 Dose: Not Given Documented by: Insulin Glargine (Lantus Solostar Pen) 5 units SC Q12 [facility] Stop: 12/10/18 16:59 Last Admin: 11/17/18 09:29 Dose: 5 units Documented by: Isosorbide Mononitrate (Imdur Extended Rel) 60 mg PO QAM [facility] Stop: 12/11/18 08:59 Last Admin: 11/17/18 09:39 Dose: 60 mg Documented by: Levalbuterol HCl (Xopenex 0.63 Mg/3 Ml Neb) 0.63 mg NEB Q4H PRN PRN Reason: Shortness Of Breath Or Wheezin Stop: 12/14/18 20:57 Last Admin: 11/14/18 22:13 Dose: 0.63 mg Documented by: Levothyroxine Sodium (Synthroid) 50 mcg PO DAILYBB [facility] Stop: 12/11/18 06:29 Last Admin: 11/17/18 06:00 Dose: 50 mcg Documented by: Lidocaine (Lidoderm 5%) 1 patch TD QAM [facility] Stop: 12/11/18 08:59 Last Admin: 11/17/18 09:43 Dose: Not Given Documented by: Lorazepam (Ativan) 0.5 mg PO DAILY PRN PRN Reason: Anxiety Stop: 12/10/18 16:00 Magnesium Hydroxide (Milk Of Magnesia) 30 ml PO DAILY PRN PRN Reason: Constipation Stop: 12/10/18 16:00 Meclizine HCl (Antivert) 25 mg PO TID PRN PRN Reason: Dizziness Stop: 12/10/18 16:00 Metoprolol Tartrate (Lopressor) 12.5 mg PO BID [facility] Stop: 12/10/18 20:59 Last Admin: 11/17/18 09:41 Dose: 12.5 mg Documented by: Miconazole Nitrate (Desenex) 1 appln EXT PRN PRN PRN Reason: Affected Skin Folds Stop: 12/17/18 10:49 Midodrine (Proamatine) 10 mg PO TID@0700,1200,1700 [facility] Stop: 12/10/18 16:59 Last Admin: 11/17/18 13:33 Dose: 10 mg Documented by: Miscellaneous (Order Awaiting Action) 1 ea N/A QS [facility] Stop: 12/11/18 00:00 Last Admin: 11/17/18 09:36 Dose: Not Given Documented by: Miscellaneous (Remove Lidoderm Patch) 1 ea N/A DAILY@2100 [facility] Stop: 12/10/18 20:59 Last Admin: 11/16/18 20:44 Dose: Not Given Documented by: Miscellaneous (Carbohydrates For Hypoglycemia) 15 - 30 gm PO UD PRN PRN Reason: Hypoglycemia Treatment Stop: 12/10/18 16:09 Morphine Sulfate (Morphine Sulfate Ir) 7.5 mg PO Q6H PRN PRN Reason: Pain Stop: 11/24/18 17:48 Last Admin: 11/15/18 06:18 Dose: 7.5 mg Documented by: Nystatin (Mycostatin) 1 appln EXT BID [facility] Stop: 12/10/18 20:59 Last Admin: 11/17/18 13:31 Dose: Not Given Documented by: Ondansetron HCl (Zofran) 4 mg PO QID PRN PRN Reason: Nausea Stop: 12/10/18 16:00 Last Admin: 11/16/18 22:05 Dose: 4 mg Documented by: Pantoprazole Sodium (Protonix) 40 mg PO QAM [facility] Stop: 12/11/18 08:59 Last Admin: 11/17/18 09:42 Dose: 40 mg Documented by: Polyethylene Glycol (Miralax Powder Packet) 17 gm PO QDL PRN PRN Reason: Constipation Stop: 12/10/18 16:00 Senna/Docusate Sodium (Senokot S) 1 tab PO QDL PRN PRN Reason: Constipation Stop: 12/10/18 16:00 Sertraline HCl (Zoloft) 25 mg PO TODAY@2100 [facility] Stop: 12/15/18 20:59 Last Admin: 11/16/18 20:54 Dose: 25 mg Documented by: Sevelamer HCl (Renagel) 3,200 mg PO TIDM [facility] Stop: 12/10/18 16:59 Last Admin: 11/17/18 13:32 Dose: 3,200 mg Documented by: Vitamin B Complex/Folic Acid (Nephrocaps) 1 [facility] Stop: 12/11/18 08:59 Last Admin: 11/17/18 09:42 Dose: 1 cap Documented by: (1) CAD (coronary artery disease) Coronary Disease-Associated Artery/Lesion type: [place] artery [place] vs. transplanted heart: [place] heart Associated angina: without angina Qualified Code(s): I25.10 - Atherosclerotic heart disease of [place] coronary artery without angina pectoris (2) DM type 2 (diabetes mellitus, type 2) Diabetes mellitus adjunct faculty for medical terminology insulin use: with adjunct faculty for medical terminology use Diabetes mellitus complication status: with circulatory complication Diabetes mellitus complication detail: with peripheral angiopathy with gangrene Qualified Code(s): E11.52 - Type 2 diabetes mellitus with diabetic peripheral angiopathy with gangrene; 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
[2018-11-17] MEDS: SERTRALINE HCL 50 MG TABLET PO SCH (22:25)
[2018-11-17] MEDS: GABAPENTIN 300 MG CAP PO SCH (22:25)
[2018-11-18] MEDS: IRON SUCROSE 100 MG in SYRINGE 0 ML IV SCH (06:02)
[2018-11-18] MEDS: LEVOTHYROXINE SODIUM 50 MCG TABLET PO SCH (06:02)
[2018-11-18] MEDS: MIDODRINE HCL 10 MG TAB PO SCH ×3 (06:02→15:39)
[2018-11-18 06:07] LABS: Basophils # (auto) 0.03 K/uL (0-0.2); Basophils % (auto) 0.3 %; Eosinophils % (auto) 1.1 %; Hematocrit (blood only) 37.4 % (37-47); Immature Granulocytes # (auto) 0.01 K/uL (0.00-0.02); Immature Granulocytes % (auto) 0.1 %; Lymphocytes # (auto) 1.18 K/uL (1.2-3.4); Lymphocytes % (auto) 12.7 %; Mean Corpuscular Hgb Conc 29.4 g/dL (32-36); Mean Corpuscular Volume 90.6 fL (80-100); Mean Platelet Volume 10.2 fL (7.4-10.4); Monocytes # (auto) 1.42 K/uL (0.11-0.59); Monocytes % (auto) 15.3 %; Neutrophils # (auto) 6.56 K/uL (1.4-6.5); Neutrophils % (auto) 70.5 %; Nucleated RBC # (auto) 0.03 K/uL (0-0); Nucleated RBC % (auto) 0.3 %; Platelet Count 373 K/uL (130-400); RDW Coefficient of Variation 20.4 % (11.5-14.5); RDW Standard Deviation 66.5 fL (36.4-46.3); Red Blood Count 4.13 M/uL (4.2-5.4)
[2018-11-18 06:33] LABS: Anisocytosis Present; Hypochromasia Present; Poikilocytosis Present
[2018-11-18 06:35] LABS: Albumin Globulin Ratio 0.3 (0.9-2); Albumin Level 2.1 gm/dl (3.4-5.0); BUN Creatinine Ratio 7.5 (10-20); Bilirubin,Total 1.5 mg/dl (0.2-1); Calcium 9.7 mg/dl (8.5-10.1); Creatinine Clr Calc Pharmacy 12.4 ml/min; Est GFR (African American) 8.2; Globulin 6.1 gm/dl (2.5-4.0); Magnesium 2.3 mg/dl (1.8-2.4); Potassium 5.1 mmol/L (3.5-5.1); Total Protein 8.2 gm/dl (6.4-8.2)
[2018-11-18] MEDS ORDERED: SODIUM CHLORIDE 0.9% 1000ML 500 ML IV ONE (07:45)
[2018-11-18] MEDS ORDERED: AMIODARONE IV BOLUS / DRIP IV STA (08:00)
--- NOTE | 2018-11-18 08:15 | Hospitalist Progress Note ---
Date of Service November 18, 2018 Assessment & Plan (1) New onset a-fib: discussed with Dr. Lay on Amiodarone drip converted to SR plan to transition to PO Amio monitor in Tele (2) Hypotension: today in the setting of A fib in RVR, ICM Neosynephrine started monitor closely in ICU (3) Hypoxia: secondary to bilateral pleural effusion volume management per Nephro wean off O2 accordingly (4) Elevated troponin: possible NSTEMI Heparin unable to be started due to coagulopathy Cardiology consulted continued on medical therapy (5) CAD (coronary artery disease): (6) Ischemic cardiomyopathy: per Dr. Robles's notes -Troponin on presentation 2.34, EKG does not show acute ST changes -Patient reporting chest pain however seems to be musculoskeletal in nature and not similar to anginal equivalent in the past -History of CAD, S/P KAROLINE to mid circumflex 02/2018 and BMS to circumflex 2015, chronic RCA occlusion -Case discussed with Dr. Venegas who advised initiating heparin drip however unable to at this time due to coagulopathy -Continue cycle cardiac enzymes, check resting echo -Continue aspirin and Plavix; beta-silvia and nitrate as BP allows; holding statin due to elevated LFTs -Denies any cardiac symptoms (7) Abnormal LFTs: per Dr. Robles's notes Likely multifactorial Her ALT was highly elevated in August LFTs are elevated at this time likely secondary to hypoxia/drug- induced/hepatitis/fatty liver with cirrhosis No portal vein thrombosis on ultrasound Appreciate GI input and recommendation She has been on Mucomyst and will finish the course-Mucomyst has been stopped this morning on 11/12 LFTs have been improving Received vitamin K 5 mg orally yesterday LFTs improving and INR is 1.5 today Repeat LFTs shows improvement Ultrasound of the liver did not show any significant cirrhosis and/or fatty infiltration of the liver MRCP-unremarkable, a few gallstones but no obstruction and no biliary ductal dilatation Liver function is improved further Denies any abdominal pain but has nausea and vomited once LFTs remain stable but INR is elevated to 1.9 today 11/18 INR 2.2 given Vit K 5mg monitor (8) Coagulopathy: per Dr. Robles's notes: -On admission, patient found to have elevated AST and ALT -Initial INR 1.9 with repeat being 2.6 -No history of hepatic disease in the past -? Shock liver from hypotension yesterday -GI consult, case discussed with Dr. Eduardo who advises obtaining hepatitis panel, CMV, EBV, HSV; trend LFTs and coags; start Mucomyst drip per protocol -Liver ultrasound with portal vein Doppler-negative for any thrombus INR management as noted above (9) History of right below knee amputation: -S/P right BKA on 10/[address] Jones -monitor daily (10) Anemia associated with chronic renal failure: Hg stable (11) Eschar of finger: -Left second finger -Following with Dr. Pryor -No signs of active infection (12) ESRD (end stage renal disease) on dialysis: HD per Nephro (13) DM type 2 (diabetes mellitus, type 2): -Hgb A1c 7.3 08/2018 -Lantus and NovoLog per protocol while hospitalized (14) GERD (gastroesophageal reflux disease): -Continue PPI (15) DVT prophylaxis: -None needed at this time, INR 2..2 -Received vitamin K and INR is 1.5 today (16) Physical deconditioning: per Dr. Robles's notes Has multiple comorbid conditions including end-stage renal disease on hemodialysis, cardiomyopathy with EF of 25-30%, abnormal liver function test with increased INR, shortness of breath and requiring oxygen up to 1-2 L to maintain saturation, has been bedbound for a long time especially after right AKA for peripheral vascular disease and ulcer. Detailed discussion was done with her niece yesterday and today We will try more physical therapy and occupational therapy to improve her condition If there is no improvement of her physical condition palliative care consultation should be asked for Discussed with the niece and she is agreeable with it She will not be transferred in this acute condition. Subjective called by RN as patient was noted to be tachycardic in the 150s, BP systolic 60s seen at bedside patient appears drowsy, but able to speak in phrases reports mild nausea, no chest pain, dyspnea EKG: (+) afib in RVR stat NSS 500cc ordered discussed with Dr. Lay, recommend Amiodarone drip and transfer to ICU discussed with Dr. Rosenthal upon arrival to ICU, patient monitored closely while in the 3rd floor and en route to ICU BP improved to sytolic 100s HR 120s patient more alert niece updated Physical Exam Vital Signs (Past 24 Hours): Last Vital Signs Temp 36.5 C 11/17/18 22:52 Pulse 120 H 11/18/18 07:52 Resp 16 11/18/18 07:52 BP 64/47 L 11/18/18 07:52 Pulse Ox 95 11/18/18 07:52 Physical Exam: General- oriented x 2, drowsy, not in distress, speaks in sentences with no effort or accessory muscle use Head- atraumatic Eyes- PERRL, EOMI, anicteric ENT- oropharynx clear Neck- supple, no JVD, no adenopathy, no thyromegaly; carotids +2/2, no bruits appreciated Lungs- clear to auscultation bilaterally, no rales/wheezes Heart- tachycardic, irregularly irregular rhythm; no murmur, no gallop, no rub appreciated Abdomen- normal bowel sounds, nondistended, soft, nontender, no masses or hepatosplenomegaly Extremities- R BKA: petra in place with minimal redness along the surgical incision site; no discharge left :no pretibial edema, no calf tenderness; peripheral pulses intact Neuro- drowsy, oriented x 2; CN 2-12 grossly intact; motor 5/5 bilaterally;sensation 100% on all extremities; no other gross focal neurologic deficits Skin- warm & dry Results & Data Laboratory Results Laboratory Results - last 24 hr 11/17/18 11/17/18 11/18/18 17:31 20:23 05:37 WBC 9.30 RBC 4.13 L Hgb 11.0 L Hct 37.4 MCV 90.6 MCH 26.6 MCHC 29.4 L RDW Std Deviation 66.5 H RDW Coeff of Dru 20.4 H Plt Count 373 MPV 10.2 Immature Gran % (Auto) 0.1 Neut % (Auto) 70.5 Lymph % (Auto) 12.7 [place] % (Auto) 15.3 Eos % (Auto) 1.1 Baso % (Auto) 0.3 Immature Gran # (Auto) 0.01 Neut # (Auto) 6.56 H Lymph # (Auto) 1.18 L [place] # (Auto) 1.42 H Eos # (Auto) 0.10 Baso # (Auto) 0.03 Absolute Nucleated RBC 0.03 H Nucleated RBC % (auto) 0.3 Hypochromasia Present Poikilocytosis Present Anisocytosis Present PT INR Fibrinogen Sodium Potassium Chloride Carbon Dioxide Anion Gap BUN Creatinine Est Cr Clr Drug Dosing Est GFR ( Amer) Est GFR (Non-Af Amer) BUN/Creatinine Ratio Glucose POC Glucose 160 H 124 H Calcium Phosphorus Magnesium Total Bilirubin AST ALT Alkaline Phosphatase Ammonia Total Protein Albumin Globulin Albumin/Globulin Ratio Random Cortisol Nasal Screen MRSA (PCR) 11/18/18 11/18/18 11/18/18 05:37 08:13 09:25 WBC RBC Hgb Hct MCV MCH MCHC RDW Std Deviation RDW Coeff of Dru Plt Count MPV Immature Gran % (Auto) Neut % (Auto) Lymph % (Auto) [place] % (Auto) Eos % (Auto) Baso % (Auto) Immature Gran # (Auto) Neut # (Auto) Lymph # (Auto) [place] # (Auto) Eos # (Auto) Baso # (Auto) Absolute Nucleated RBC Nucleated RBC % (auto) Hypochromasia Poikilocytosis Anisocytosis PT 20.9 H INR 2.2 H Fibrinogen Sodium 132 L Potassium 5.1 Chloride 97 L Carbon Dioxide 25 Anion Gap 10.0 BUN 47 H Creatinine 6.30 H* D Est Cr Clr Drug Dosing 12.4 Est GFR ( Amer) 8.2 Est GFR (Non-Af Amer) 7.0 BUN/Creatinine Ratio 7.5 L Glucose 117 H POC Glucose 112 H Calcium 9.7 Phosphorus 6.0 H D Magnesium 2.3 Total Bilirubin 1.5 H AST 17 ALT 23 Alkaline Phosphatase 134 H Ammonia Total Protein 8.2 Albumin 2.1 L Globulin 6.1 H Albumin/Globulin Ratio 0.3 L Random Cortisol Nasal Screen MRSA (PCR) 11/18/18 11/18/18 11/18/18 09:26 11:28 13:48 WBC RBC Hgb Hct MCV MCH MCHC RDW Std Deviation RDW Coeff of Dru Plt Count MPV Immature Gran % (Auto) Neut % (Auto) Lymph % (Auto) [place] % (Auto) Eos % (Auto) Baso % (Auto) Immature Gran # (Auto) Neut # (Auto) Lymph # (Auto) [place] # (Auto) Eos # (Auto) Baso # (Auto) Absolute Nucleated RBC Nucleated RBC % (auto) Hypochromasia Poikilocytosis Anisocytosis PT INR Fibrinogen Sodium Potassium Chloride Carbon Dioxide Anion Gap BUN Creatinine Est Cr Clr Drug Dosing Est GFR ( Amer) Est GFR (Non-Af Amer) BUN/Creatinine Ratio Glucose POC Glucose 128 H Calcium Phosphorus Magnesium Total Bilirubin AST ALT Alkaline Phosphatase Ammonia 22.0 Total Protein Albumin Globulin Albumin/Globulin Ratio Random Cortisol 33.60 Nasal Screen MRSA (PCR) 11/18/18 11/18/18 11/18/18 13:48 15:43 Unknown WBC RBC Hgb Hct MCV MCH MCHC RDW Std Deviation RDW Coeff of Dru Plt Count MPV Immature Gran % (Auto) Neut % (Auto) Lymph % (Auto) [place] % (Auto) Eos % (Auto) Baso % (Auto) Immature Gran # (Auto) Neut # (Auto) Lymph # (Auto) [place] # (Auto) Eos # (Auto) Baso # (Auto) Absolute Nucleated RBC Nucleated RBC % (auto) Hypochromasia Poikilocytosis Anisocytosis PT INR Fibrinogen 498 H Sodium Potassium Chloride Carbon Dioxide Anion Gap BUN Creatinine Est Cr Clr Drug Dosing Est GFR ( Amer) Est GFR (Non-Af Amer) BUN/Creatinine Ratio Glucose POC Glucose 127 H Calcium Phosphorus Magnesium Total Bilirubin AST ALT Alkaline Phosphatase Ammonia Total Protein Albumin Globulin Albumin/Globulin Ratio Random Cortisol Nasal Screen MRSA (PCR) Positive A (1) DM type 2 (diabetes mellitus, type 2) Diabetes mellitus complication detail: with peripheral angiopathy with gangrene Diabetes mellitus complication status: with circulatory complication Diabetes mellitus buttermaker helper insulin use: with buttermaker helper use Qualified Code(s): E11.52 - Type 2 diabetes mellitus with diabetic peripheral angiopathy with gangrene; 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 transplanted heart: [place] heart Qualified Code(s): I25.10 - Atherosclerotic heart disease of [place] coronary artery withou t angina pectoris (3) GERD (gastroesophageal reflux disease) Esophagitis presence: without esophagitis Qualified Code(s): K21.9 - Gastro- esophageal reflux disease without esophagitis
[2018-11-18] MEDS ORDERED: AMIODARONE / D5W 150 MG/100 ML BAG IV ONE (08:30)
[2018-11-18] MEDS: SEVELAMER HCL 800 MG TABLET PO SCH ×3 (08:36→15:39)
[2018-11-18] MEDS: ISOSORBIDE MONO EXTENDED REL 60 MG TABCR PO SCH (08:37)
[2018-11-18] MEDS: LIDOCAINE 5% 1 PATCH TD SCH (08:37)
[2018-11-18] MEDS: DOCUSATE SODIUM 100 MG CAP PO SCH ×2 (08:37→21:20)
[2018-11-18] MEDS: ASPIRIN 81 MG ECTAB PO SCH (08:37)
[2018-11-18] MEDS: PANTOprazole 40 MG TAB PO SCH (08:38)
[2018-11-18] MEDS: CLOPIDOGREL BISULFATE 75 MG TAB PO SCH (08:38)
[2018-11-18] MEDS: NEPHROCAPS PO SCH (08:38)
[2018-11-18] MEDS: METOPROLOL TARTRATE 25 MG TAB PO SCH (08:38)
[2018-11-18] MEDS ORDERED: AMIODARONE / D5W 360 MG/200 ML BAG IV SCH (08:40)
[2018-11-18] MEDS: INSULIN ASPART 100 UNITS/ML 3 ML PEN SC SCH ×4 (08:50→21:26)
[2018-11-18] MEDS: INSULIN GLARGINE SOLOSTAR 100 UNITS/ML 3 ML PEN SC SCH ×2 (08:57→21:28)
[2018-11-18] MEDS: PHENYLEPHRINE HCL 20 MG in DEXTROSE 5% 500 ML IV PRN ×3 (09:31→19:26)
[2018-11-18] MEDS: NYSTATIN POWDER 15GM BTL EXT SCH ×2 (09:36→23:00)
[2018-11-18 09:59] LABS: INR 2.2 (0.9-1.1); Prothrombin Time 20.9 Seconds (9.0-12.0)
--- NOTE | 2018-11-18 12:07 | Critical Care Consultation ---
Date of Consultation November 18, 2018 Assessment & Plan (1) Admitted to intensive care unit: Reason Critically Ill: 52-year-old female with hypotension and atrial fibrillation with rapid ventricular response PLAN: Neuro: CAM ICU positive Possible metabolic encephalopathy -Check ammonia level Resp: Acute hypoxic respiratory failure Right-sided pleural effusion on chest x-ray -Wean O2 as tolerated CV: Hypotension Atrial fibrillation with rapid ventricular response -Continue amiodarone -We will discontinue after total IV load -Spontaneous conversion to normal sinus rhythm Fluids/Renal: End-stage renal disease on hemodialysis -Remains volume overloaded, will attempt dialysis today with assistance of vasopressors ID: Monitor fever curve Blood cultures remain negative GI/Nutrition: Hepatic insufficiency of unclear etiology -Completed Mucomyst protocol -Meld score 32 -Compromised MRCP, no evidence of ductal dilatation -Hepatitis serologies negative Heme: Elevated INR -INR 2.2 -5 mg IV vitamin K today Anemia of chronic disease DVT prophylaxis: SCDs, chemical prophylaxis contraindicated Endocrine: ICU hyperglycemia protocol -Random cortisol 33.6 Vascular access: Right internal jugular central venous catheter Code Status: I had an extensive discussion with the patient's power of inspector bicycle who is her niece. Given the multiple comorbidities and likelihood of iatrogenic injuries if she underwent cardiopulmonary resuscitation in event of cardiac arrest patient's niece felt that was inconsistent with her long held beliefs. Accordingly she is made a DNR in event of cardiac arrest. I have personally spent 55 minutes of critical care time in the direct management of this patient. This is a life/limb threatening event. This includes time spent evaluating patient, direct bedside care, chart review, placing orders, interpretation of diagnostic studies, discussion with consultants, patient, and/or family members regarding treatment decisions, as well as other required patient management activities. This time is exclusive of all separately billable procedures, and teaching time and separate from and in addition to any other critical care service time. History of Present Illness Attending Physician: Margarita Robles MD Patient is a 52-year-old female with multiple comorbidities including ischemic c ardiomyopathy, transaminitis, end-stage renal disease on dialysis, vasculopathy, who was transferred to the ICU for hypotension and atrial fibrillation with rapid ventricular response. Allergies Allergy/AdvReac Type Severity Reaction Status Date / Time adhesive Allergy Mild RASH, SORES Verified 11/10/18 12:48 latex Allergy Mild rash Verified 11/10/18 12:48 No Known Drug Allergies Allergy Mild . Verified 11/10/18 12:48 pollen extracts Allergy Mild WATERY EYES Verified 11/10/18 12:48 Home Medications Home Medications Medication Instructions Recorded Confirmed Type aspirin 81 mg PO QAM 08/16/18 11/10/18 History atorvastatin 40 mg PO QAM 08/16/18 11/10/18 History nitroglycerin 0.4 mg SUBLINGUAL DIRECTED PRN 08/16/18 11/10/18 History pantoprazole 40 mg PO QAM 08/16/18 11/10/18 History sertraline 25 mg PO QAM 08/16/18 11/10/18 History fluticasone propionate [Flonase 1 spray INTRANASAL QAM 09/19/18 11/10/18 History Allergy Relief] gabapentin 300 mg PO HS 09/19/18 11/10/18 History isosorbide mononitrate 60 mg PO QAM 09/19/18 11/10/18 History levothyroxine 50 mcg PO QAM 09/19/18 11/10/18 History meclizine 25 mg PO TID PRN 09/19/18 11/10/18 History midodrine 10 mg PO TID 09/19/18 11/10/18 History nystatin 1 applic TOPICAL BID 09/19/18 11/10/18 History sennosides-docusate sodium 1 tab PO QDL PRN 09/19/18 11/10/18 History [Senna-S] sevelamer carbonate [Renvela] 3,200 mg PO TIDM 09/19/18 11/10/18 History Fleet Enema 118 ml TN DAILY PRN 10/06/18 11/10/18 History bisacodyl 10 mg TN DAILY PRN 10/06/18 11/10/18 History lorazepam [Ativan] 0.5 mg PO DAILY PRN 10/06/18 11/10/18 History magnesium hydroxide [Milk of 30 ml PO DAILY PRN 10/06/18 11/10/18 History Magnesia] metoprolol tartrate 12.5 mg PO BID 10/06/18 11/10/18 History ondansetron HCl [Zofran] 4 mg PO QID PRN 10/06/18 11/10/18 History polyethylene glycol 3350 [Miralax] 17 g PO QDL PRN 10/06/18 11/10/18 History Aranesp (in polysorbate) 1 dose SUBCUT WK 10/25/18 11/10/18 History Lantus U-100 Insulin 15 unit SUBCUT HS 10/25/18 11/10/18 History Nephrocaps 1 cap PO QAM 10/25/18 11/10/18 History acetaminophen 500 mg PO Q4H PRN 10/25/18 11/10/18 History docusate sodium 100 mg PO BID 10/25/18 11/10/18 History hydrocodone-acetaminophen 1 tab PO Q6H PRN 10/25/18 11/10/18 History lidocaine [Lidoderm] 1 patch TOPICAL QAM 10/25/18 11/10/18 History Venofer See Rx Instructions .ROUTE .COMPLEX 10/27/18 11/10/18 History clopidogrel [Plavix] 75 mg PO QAM 10/27/18 11/10/18 History dextrose [Glucose Gel] See Rx Instructions .ROUTE 10/27/18 11/10/18 History .COMPLEX PRN glucagon HCl See Rx Instructions .ROUTE 10/27/18 11/10/18 History .COMPLEX PRN sodium chloride 0.9 % 1,000 ml IV UD PRN 10/27/18 11/10/18 History heparin (porcine) 5,000 unit SUBCUT Q12H 11/10/18 11/10/18 History insulin aspart U-100 [Novolog 1 sliding scale dose SUBCUT 11/10/18 11/10/18 History U-100 Insulin aspart] USEASDIRECTD Patient History Medical History 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) Nares Anemia (Chronic) RCA occlusion (Chronic) History of right below knee amputation (Chronic) Anemia associated with chronic renal failure (Chronic) Ischemia of right lower extremity (Resolved) Gangrene of toe of right foot (Resolved) Eschar of finger (Chronic) Peripheral vascular disease (Chronic) s/p R SFA angioplasty with 2 stents placed at [facility] [place] on 08/09/18 Arthritis (Chronic) CAD (coronary artery disease) (Chronic) "s/p PCI and BMS to left circumflex 03/2016" 02/2018 - s/p KAROLINE to mid cx Ischemic cardiomyopathy (Chronic) Carotid stenosis (Chronic) "left ICA" ESRD (end stage renal disease) on dialysis (Chronic) DM type 2 (diabetes mellitus, type 2) (Chronic) GERD (gastroesophageal reflux disease) (Chronic) Allergic rhinitis (Chronic) Morbid obesity (Chronic) Dyslipidemia (Chronic) Tobacco use disorder (Resolved) HTN (hypertension) (Chronic) C. difficile colitis (Resolved) Surgical History History of left-sided carotid endarterectomy (Resolved) Status post transmetatarsal amputation of right foot (Chronic) Family History Other Diabetes Heart disease Social History Communication Ability: Effective Beliefs That Will Affect Care: None marital status: / Current Living Situation: Rehab Other Information That Helps Us Care for You: No Feels Safe at Home: Yes Safety Concerns: Feels Safe At This Time Smoking Status: Former smoker Hx Alcohol Use: Yes Hx Substance Use: No Review of Systems Denies chest pain Physical Exam Vital Signs (Past 24 Hours): Last Vital Signs Temp 36.4 C L 11/18/18 08:45 Pulse 125 H 11/18/18 09:46 Resp 15 11/18/18 09:46 BP 81/59 L 11/18/18 09:46 Pulse Ox 86 L 11/18/18 09:46 General: Elderly female who appears older than her stated age I have reviewed the recorded vital signs Neurological: RASS score: -1, Moves all 4 extremities, Psychological: Glascow Coma Scale: Eyes: 4, Verbal 4, Motor 6, Total 14 following complex commands Eyes: Pupils are equal, round and reactive to light, anicteric sclera. Symmetrical lids. HENT: Oropharynx clear, mucous membranes moist. Neck: Supple. Symmetric. trachea midline. No thyromegaly. Cardiovascular: Normal peripheral perfusion. Distal pulses and capillary refill intact. No JVD. Respiratory: Respirations are non-labored, no accessory muscle use. Breath sounds are equal. Gastrointestinal: Soft. Non-distended. Lymphatic: No cervical lymphadenopathy. Musculoskeletal: Amputation of lower extremity Results & Data Laboratory Results 11/18/18 11/18/18 11/18/18 Range/Units Unknown 11:28 09:25 WBC (4.8-10.8) K/uL RBC (4.2-5.4) M/uL Hgb (12.0-16.0) g/dL Hct (37-47) % MCV (80-100) fL MCH (25-34) pg MCHC (32-36) g/dL RDW Std Deviation (36.4-46.3) fL RDW Coeff of Dru (11.5-14.5) % Plt Count (130-400) K/uL MPV (7.4-10.4) fL Immature Gran % (Auto) % Neut % (Auto) % Lymph % (Auto) % [place] % (Auto) % Eos % (Auto) % Baso % (Auto) % Immature Gran # (Auto) (0.00-0.02) K/uL Neut # (Auto) (1.4-6.5) K/uL Lymph # (Auto) (1.2-3.4) K/uL [place] # (Auto) (0.11-0.59) K/uL Eos # (Auto) (0-0.5) K/uL Baso # (Auto) (0-0.2) K/uL Absolute Nucleated RBC (0-0) K/uL Nucleated RBC % (auto) % Hypochromasia Poikilocytosis Anisocytosis PT 20.9 H (9.0-12.0) Seconds INR 2.2 H (0.9-1.1) Sodium (136-145) mmol/L Potassium (3.5-5.1) mmol/L Chloride (98-107) mmol/L Carbon Dioxide (21-32) mmol/L Anion Gap (3-11) BUN (7-18) mg/dl Creatinine (0.6-1.2) mg/dl Est Cr Clr Drug Dosing ml/min Est GFR ( Amer) Est GFR (Non-Af Amer) BUN/Creatinine Ratio (10-20) Glucose (70-99) mg/dl POC Glucose 128 H (70-99) Calcium (8.5-10.1) mg/dl Phosphorus (2.5-4.9) mg/dl Magnesium (1.8-2.4) mg/dl Total Bilirubin (0.2-1) mg/dl AST (15-37) U/L ALT (12-78) U/L Alkaline Phosphatase (45-117) U/L Total Protein (6.4-8.2) gm/dl Albumin (3.4-5.0) gm/dl Globulin (2.5-4.0) gm/dl Albumin/Globulin Ratio (0.9-2) Nasal Screen MRSA (PCR) Positive A (Negative) 11/18/18 11/18/18 11/18/18 Range/Units 08:13 05:37 05:37 WBC 9.30 (4.8-10.8) K/uL RBC 4.13 L (4.2-5.4) M/uL Hgb 11.0 L (12.0-16.0) g/dL Hct 37.4 (37-47) % MCV 90.6 (80-100) fL MCH 26.6 (25-34) pg MCHC 29.4 L (32-36) g/dL RDW Std Deviation 66.5 H (36.4-46.3) fL RDW Coeff of Dru 20.4 H (11.5-14.5) % Plt Count 373 (130-400) K/uL MPV 10.2 (7.4-10.4) fL Immature Gran % (Auto) 0.1 % Neut % (Auto) 70.5 % Lymph % (Auto) 12.7 % [place] % (Auto) 15.3 % Eos % (Auto) 1.1 % Baso % (Auto) 0.3 % Immature Gran # (Auto) 0.01 (0.00-0.02) K/uL Neut # (Auto) 6.56 H (1.4-6.5) K/uL Lymph # (Auto) 1.18 L (1.2-3.4) K/uL [place] # (Auto) 1.42 H (0.11-0.59) K/uL Eos # (Auto) 0.10 (0-0.5) K/uL Baso # (Auto) 0.03 (0-0.2) K/uL Absolute Nucleated RBC 0.03 H (0-0) K/uL Nucleated RBC % (auto) 0.3 % Hypochromasia Present Poikilocytosis Present Anisocytosis Present PT (9.0-12.0) Seconds INR (0.9-1.1) Sodium 132 L (136-145) mmol/L Potassium 5.1 (3.5-5.1) mmol/L Chloride 97 L (98-107) mmol/L Carbon Dioxide 25 (21-32) mmol/L Anion Gap 10.0 (3-11) BUN 47 H (7-18) mg/dl Creatinine 6.30 H* D (0.6-1.2) mg/dl Est Cr Clr Drug Dosing 12.4 ml/min Est GFR ( Amer) 8.2 Est GFR (Non-Af Amer) 7.0 BUN/Creatinine Ratio 7.5 L (10-20) Glucose 117 H (70-99) mg/dl POC Glucose 112 H (70-99) Calcium 9.7 (8.5-10.1) mg/dl Phosphorus 6.0 H D (2.5-4.9) mg/dl Magnesium 2.3 (1.8-2.4) mg/dl Total Bilirubin 1.5 H (0.2-1) mg/dl AST 17 (15-37) U/L ALT 23 (12-78) U/L Alkaline Phosphatase 134 H (45-117) U/L Total Protein 8.2 (6.4-8.2) gm/dl Albumin 2.1 L (3.4-5.0) gm/dl Globulin 6.1 H (2.5-4.0) gm/dl Albumin/Globulin Ratio 0.3 L (0.9-2) Nasal Screen MRSA (PCR) (Negative) 11/17/18 11/17/18 11/17/18 Range/Units 20:23 17:31 12:19 WBC (4.8-10.8) K/uL RBC (4.2-5.4) M/uL Hgb (12.0-16.0) g/dL Hct (37-47) % MCV (80-100) fL MCH (25-34) pg MCHC (32-36) g/dL RDW Std Deviation (36.4-46.3) fL RDW Coeff of Dru (11.5-14.5) % Plt Count (130-400) K/uL MPV (7.4-10.4) fL Immature Gran % (Auto) % Neut % (Auto) % Lymph % (Auto) % [place] % (Auto) % Eos % (Auto) % Baso % (Auto) % Immature Gran # (Auto) (0.00-0.02) K/uL Neut # (Auto) (1.4-6.5) K/uL Lymph # (Auto) (1.2-3.4) K/uL [place] # (Auto) (0.11-0.59) K/uL Eos # (Auto) (0-0.5) K/uL Baso # (Auto) (0-0.2) K/uL Absolute Nucleated RBC (0-0) K/uL Nucleated RBC % (auto) % Hypochromasia Poikilocytosis Anisocytosis PT (9.0-12.0) Seconds INR (0.9-1.1) Sodium (136-145) mmol/L Potassium (3.5-5.1) mmol/L Chloride (98-107) mmol/L Carbon Dioxide (21-32) mmol/L Anion Gap (3-11) BUN (7-18) mg/dl Creatinine (0.6-1.2) mg/dl Est Cr Clr Drug Dosing ml/min Est GFR ( Amer) Est GFR (Non-Af Amer) BUN/Creatinine Ratio (10-20) Glucose (70-99) mg/dl POC Glucose 124 H 160 H 123 H (70-99) Calcium (8.5-10.1) mg/dl Phosphorus (2.5-4.9) mg/dl Magnesium (1.8-2.4) mg/dl Total Bilirubin (0.2-1) mg/dl AST (15-37) U/L ALT (12-78) U/L Alkaline Phosphatase (45-117) U/L Total Protein (6.4-8.2) gm/dl Albumin (3.4-5.0) gm/dl Globulin (2.5-4.0) gm/dl Albumin/Globulin Ratio (0.9-2) Nasal Screen MRSA (PCR) (Negative)
--- NOTE | 2018-11-18 13:16 | Procedure Note ---
Procedure Note Date of Service November 18, 2018 Procedure date: Noted above Procedure: Central venous access Pre-procedure indication: Need for vasoactive medication administration Post-procedure Diagnosis: same as above Prior to Procedure: Informed Consent: The risks, benefits, indications, potential complications, and alternatives were explained to the patient's power of attorney general and informed consent obtained. Attending Staff: Brittany Rosenthal DO Resident/APC: Not applicable Skin Prep: Chlorhexidine Anesthesia: 4 mL 1% lidocaine without epinephrine The identity of the patient was confirmed and a bedside time out was performed. Description of Procedure: After sterile prep and sterile drape utilizing standard sterile technique the superficial skin of the right internal jugular area was anesthetized. The target vessel was identified and entered with an 18- gauge needle. Dark venous blood return was noted. A guidewire was inserted through the needle and into the vessel. The needle was withdrawn and a skin ilsa was made. A tissue dilator was advanced via Seldinger technique and removed. A triple lumen catheter was inserted via Seldinger technique and the guidewire removed. All ports lavonne and flushed easily. A Biopatch was placed, and the catheter was secured via silk suture. A sterile dressing was then applied. Complications: None Estimated blood loss: Trace Patient tolerated the procedure well. Procedure Date: Noted Above Procedure: Procedural Ultrasound Indication: Central venous access Attending: Brittany Rosenthal DO Resident/Physician Clinical Support Manager: Not applicable Artery visualized: Yes Vein visualized: Yes Compressible Vein: Yes Vein patent: Yes Guidewire or Short Catheter seen in vein prior to dilation: Yes Line confirmed in Vein with ultrasound: Yes Lung Sliding on side of attempt (if applicable): NA If no lung sliding or not obtained has CXR been ordered: Yes Impression: Successful central venous access placement Images obtained are saved for permanent record
--- NOTE | 2018-11-18 13:37 | XRay Report ---
XR chest 1V portable CLINICAL HISTORY: lines COMPARISON STUDY: Chest radiograph November 10, 2018. FINDINGS: Tip of right internal jugular central line projects over the distal SVC. There is no pneumo thorax. Enlargement of the cardiac silhouette is again noted. Extensive coronary artery calcification is noted. Bilateral pleural effusions have significantly increased in size and are likely moderate i n size. There is pulmonary edema. Lung aeration has diminished. IMPRESSION: 1. Tip of right internal jugular central line projects over the distal SVC. No pneumothorax. 2. Significant increase in size of bilateral pleural effusions, likely moderate in size with associat ed bibasilar opacities and diminished lung aeration since prior exam. 3. Progression of pulmonary edema. 4. Extensive coronary artery calcification. Stable enlargement of the cardiac silhouette. Electronically signed by: Juan A Mcintosh M.D. 11/18/2018 1:36 PM
[2018-11-18] MEDS ORDERED: PHYTONADIONE 5 MG in SODIUM CHLORIDE 0.9% 50 ML IV ONE (13:45)
[2018-11-18] MEDS: AMIODARONE / D5W 360 MG/200 ML BAG IV SCH (14:26)
[2018-11-18 14:34] LABS: Fibrinogen 498 mg/dl (184-400)
--- NOTE | 2018-11-18 15:32 | Cardiology Progress Note ---
Date of Service November 18, 2018 Assessment & Plan (1) Elevated troponin: Chronically elevated. (2) PAF (paroxysmal atrial fibrillation): The patient developed atrial fibrillation with a rapid ventricular response earlier today. She was started on intravenous amiodarone which has converted her to sinus rhythm. Can convert her to amiodarone 200 mg b.i.d. once the infusion is completed. (3) CAD (coronary artery disease): The patient has history of a left circumflex PCI in February 2018. Has a chronically occluded right coronary artery. Continue medical management. (4) Ischemic cardiomyopathy: Left ventricular ejection fraction of 35% noted on her current echocardiogram. (5) History of right below knee amputation: Management per vascular surgery team. Subjective The patient is resting comfortably in bed after her transfer to the ICU. She has converted to sinus rhythm with intravenous amiodarone. She complains of fatigue. Physical Exam Vital Signs (Past 24 Hours): Last Vital Signs Temp 36.4 C L 11/18/18 08:45 Pulse 75 11/18/18 11:01 Resp 14 11/18/18 11:01 BP 96/60 L 11/18/18 11:01 Pulse Ox 89 L 11/18/18 11:01 Physical Exam: In general is obese white female lying supine in bed without complaints. HEENT exam is negative. Neck is supple with full carotid upstrokes. No obvious bruits. Jugular venous pressure is flat at 90. There is no thyromegaly. Cardiovascular exam reveals a regular rhythm with distant heart sounds. No obvious murmurs. Lungs are clear anteriorly. Abdomen is soft without bruits. Extremities noted a right BKA. Incision intact. Results & Data Laboratory Results Laboratory Results - last 24 hr 11/17/18 11/17/18 11/18/18 17:31 20:23 05:37 WBC 9.30 RBC 4.13 L Hgb 11.0 L Hct 37.4 MCV 90.6 MCH 26.6 MCHC 29.4 L RDW Std Deviation 66.5 H RDW Coeff of Dru 20.4 H Plt Count 373 MPV 10.2 Immature Gran % (Auto) 0.1 Neut % (Auto) 70.5 Lymph % (Auto) 12.7 [place] % (Auto) 15.3 Eos % (Auto) 1.1 Baso % (Auto) 0.3 Immature Gran # (Auto) 0.01 Neut # (Auto) 6.56 H Lymph # (Auto) 1.18 L [place] # (Auto) 1.42 H Eos # (Auto) 0.10 Baso # (Auto) 0.03 Absolute Nucleated RBC 0.03 H Nucleated RBC % (auto) 0.3 Hypochromasia Present Poikilocytosis Present Anisocytosis Present PT INR Fibrinogen Sodium Potassium Chloride Carbon Dioxide Anion Gap BUN Creatinine Est Cr Clr Drug Dosing Est GFR ( Amer) Est GFR (Non-Af Amer) BUN/Creatinine Ratio Glucose POC Glucose 160 H 124 H Calcium Phosphorus Magnesium Total Bilirubin AST ALT Alkaline Phosphatase Ammonia Total Protein Albumin Globulin Albumin/Globulin Ratio Random Cortisol Nasal Screen MRSA (PCR) 11/18/18 11/18/18 11/18/18 05:37 08:13 09:25 WBC RBC Hgb Hct MCV MCH MCHC RDW Std Deviation RDW Coeff of Dru Plt Count MPV Immature Gran % (Auto) Neut % (Auto) Lymph % (Auto) [place] % (Auto) Eos % (Auto) Baso % (Auto) Immature Gran # (Auto) Neut # (Auto) Lymph # (Auto) [place] # (Auto) Eos # (Auto) Baso # (Auto) Absolute Nucleated RBC Nucleated RBC % (auto) Hypochromasia Poikilocytosis Anisocytosis PT 20.9 H INR 2.2 H Fibrinogen Sodium 132 L Potassium 5.1 Chloride 97 L Carbon Dioxide 25 Anion Gap 10.0 BUN 47 H Creatinine 6.30 H* D Est Cr Clr Drug Dosing 12.4 Est GFR ( Amer) 8.2 Est GFR (Non-Af Amer) 7.0 BUN/Creatinine Ratio 7.5 L Glucose 117 H POC Glucose 112 H Calcium 9.7 Phosphorus 6.0 H D Magnesium 2.3 Total Bilirubin 1.5 H AST 17 ALT 23 Alkaline Phosphatase 134 H Ammonia Total Protein 8.2 Albumin 2.1 L Globulin 6.1 H Albumin/Globulin Ratio 0.3 L Random Cortisol Nasal Screen MRSA (PCR) 11/18/18 11/18/18 11/18/18 09:26 11:28 13:48 WBC RBC Hgb Hct MCV MCH MCHC RDW Std Deviation RDW Coeff of Dru Plt Count MPV Immature Gran % (Auto) Neut % (Auto) Lymph % (Auto) [place] % (Auto) Eos % (Auto) Baso % (Auto) Immature Gran # (Auto) Neut # (Auto) Lymph # (Auto) [place] # (Auto) Eos # (Auto) Baso # (Auto) Absolute Nucleated RBC Nucleated RBC % (auto) Hypochromasia Poikilocytosis Anisocytosis PT INR Fibrinogen Sodium Potassium Chloride Carbon Dioxide Anion Gap BUN Creatinine Est Cr Clr Drug Dosing Est GFR ( Amer) Est GFR (Non-Af Amer) BUN/Creatinine Ratio Glucose POC Glucose 128 H Calcium Phosphorus Magnesium Total Bilirubin AST ALT Alkaline Phosphatase Ammonia 22.0 Total Protein Albumin Globulin Albumin/Globulin Ratio Random Cortisol 33.60 Nasal Screen MRSA (PCR) 11/18/18 11/18/18 13:48 Unknown WBC RBC Hgb Hct MCV MCH MCHC RDW Std Deviation RDW Coeff of Dru Plt Count MPV Immature Gran % (Auto) Neut % (Auto) Lymph % (Auto) [place] % (Auto) Eos % (Auto) Baso % (Auto) Immature Gran # (Auto) Neut # (Auto) Lymph # (Auto) [place] # (Auto) Eos # (Auto) Baso # (Auto) Absolute Nucleated RBC Nucleated RBC % (auto) Hypochromasia Poikilocytosis Anisocytosis PT INR Fibrinogen 498 H Sodium Potassium Chloride Carbon Dioxide Anion Gap BUN Creatinine Est Cr Clr Drug Dosing Est GFR ( Amer) Est GFR (Non-Af Amer) BUN/Creatinine Ratio Glucose POC Glucose Calcium Phosphorus Magnesium Total Bilirubin AST ALT Alkaline Phosphatase Ammonia Total Protein Albumin Globulin Albumin/Globulin Ratio Random Cortisol Nasal Screen MRSA (PCR) Positive A Diagnostic Findings trimmer hand now notes normal sinus rhythm. (1) CAD (coronary artery disease) Associated angina: without angina Coronary Disease-Associated Artery/Lesion type: [place] artery [place] vs. transplanted heart: [place] heart Qualified Code(s): I25.10 - Atherosclerotic heart disease of [place] coronary artery without angina pectoris
[2018-11-18] MEDS: GABAPENTIN 300 MG CAP PO SCH (21:17)
[2018-11-18] MEDS: SERTRALINE HCL 50 MG TABLET PO SCH (21:18)
[2018-11-19] MEDS: PHENYLEPHRINE HCL 20 MG in DEXTROSE 5% 500 ML IV PRN ×4 (00:46→19:23)
[2018-11-19] MEDS: AMIODARONE / D5W 360 MG/200 ML BAG IV SCH (02:20)
[2018-11-19 05:12] LABS: INR 1.4 (0.9-1.1); Partial Thromboplastin Ratio 1.5; Partial Thromboplastin Time 40.2 Seconds (21.0-31.0); Prothrombin Time 14.1 Seconds (9.0-12.0)
[2018-11-19] MEDS: LEVOTHYROXINE SODIUM 50 MCG TABLET PO SCH (06:00)
--- NOTE | 2018-11-19 06:09 | Critical Care Progress Note ---
Date of Service November 19, 2018 Assessment & Plan (1) Admitted to intensive care unit: Reason Critically Ill: 52-year-old female with hypotension and atrial fibrillation with rapid ventricular response PLAN: Neuro: CAM ICU positive Possible metabolic encephalopathy -ammonia level: Within normal limits Resp: Acute hypoxic respiratory failure Right-sided pleural effusion on chest x-ray -Wean O2 as tolerated CV: Hypotension: Improved -Wean phenylephrine Atrial fibrillation with rapid ventricular response -Continue amiodarone IV for 24 hours total -Start amiodarone 200 mg twice daily -Spontaneous conversion to normal sinus rhythm November 18 Fluids/Renal: End-stage renal disease on hemodialysis -Tolerated dialysis yesterday with augmentation with phenylephrine ID: Monitor fever curve Blood cultures remain negative GI/Nutrition: Hepatic insufficiency of unclear etiology -Completed Mucomyst protocol -Meld score 32 -Compromised MRCP, no evidence of ductal dilatation -Hepatitis serologies negative Heme: Elevated INR -INR 2.2->1.4 after 5 mg IV vitamin K. -Additional 5 mg PO vitamin K today Anemia of chronic disease DVT prophylaxis: SCDs: Heparin 5000 mg 3 times daily today Endocrine: ICU hyperglycemia protocol -Random cortisol 33.6 -Cosyntropin stim test today Vascular access: Right internal jugular central venous catheter Code Status: DNR in event of cardiac arrest. If the patient is unable to be weaned from phenylephrine and she continues to have hepatic dysfunction presumably from hypotension she may be entering in end- stage terminal condition. I have personally spent 35 minutes of critical care time in the direct management of this patient. This is a life/limb threatening event. This includes time spent evaluating patient, direct bedside care, chart review, placing orders, interpretation of diagnostic studies, discussion with consultants, patient, and/or family members regarding treatment decisions, as well as other required patient management activities. This time is exclusive of all separately billable procedures, and teaching time and separate from and in addition to any other critical care service time. Subjective No overnight events. Physical Exam Vital Signs (Past 24 Hours): Last Vital Signs Temp 36.7 C 11/19/18 04:01 Pulse 72 11/19/18 04:01 Resp 17 11/19/18 04:01 BP 104/59 L 11/19/18 04:01 Pulse Ox 94 11/19/18 04:01 General: Alert. nontoxic. Skin: Warm, dry, Head: Atraumatic Ears, nose, mouth and throat: airway patent Cardiovascular: Normal peripheral perfusion Respiratory: no respiratory distress Gastrointestinal: Non distended Musculoskeletal: No deformity Results & Data Laboratory Results 11/19/18 11/18/18 11/18/18 Range/Units 04:25 Unknown 21:22 WBC (4.8-10.8) K/uL RBC (4.2-5.4) M/uL Hgb (12.0-16.0) g/dL Hct (37-47) % MCV (80-100) fL MCH (25-34) pg MCHC (32-36) g/dL RDW Std Deviation (36.4-46.3) fL RDW Coeff of Dru (11.5-14.5) % Plt Count (130-400) K/uL MPV (7.4-10.4) fL Immature Gran % (Auto) % Neut % (Auto) % Lymph % (Auto) % [place] % (Auto) % Eos % (Auto) % Baso % (Auto) % Immature Gran # (Auto) (0.00-0.02) K/uL Neut # (Auto) (1.4-6.5) K/uL Lymph # (Auto) (1.2-3.4) K/uL [place] # (Auto) (0.11-0.59) K/uL Eos # (Auto) (0-0.5) K/uL Baso # (Auto) (0-0.2) K/uL Absolute Nucleated RBC (0-0) K/uL Nucleated RBC % (auto) % Hypochromasia Poikilocytosis Anisocytosis PT 14.1 H (9.0-12.0) Seconds INR 1.4 H (0.9-1.1) APTT 40.2 H (21.0-31.0) Seconds PTT Ratio 1.5 Fibrinogen (184-400) mg/dl Sodium (136-145) mmol/L Potassium (3.5-5.1) mmol/L Chloride (98-107) mmol/L Carbon Dioxide (21-32) mmol/L Anion Gap (3-11) BUN (7-18) mg/dl Creatinine (0.6-1.2) mg/dl Est Cr Clr Drug Dosing ml/min Est GFR ( Amer) Est GFR (Non-Af Amer) BUN/Creatinine Ratio (10-20) Glucose (70-99) mg/dl POC Glucose 137 H (70-99) Calcium (8.5-10.1) mg/dl Phosphorus (2.5-4.9) mg/dl Magnesium (1.8-2.4) mg/dl Total Bilirubin (0.2-1) mg/dl AST (15-37) U/L ALT (12-78) U/L Alkaline Phosphatase (45-117) U/L Ammonia (11-32) umol/L Total Protein (6.4-8.2) gm/dl Albumin (3.4-5.0) gm/dl Globulin (2.5-4.0) gm/dl Albumin/Globulin Ratio (0.9-2) Random Cortisol mcg/dl Nasal Screen MRSA (PCR) Positive A (Negative) 11/18/18 11/18/18 11/18/18 Range/Units 15:43 13:48 13:48 WBC (4.8-10.8) K/uL RBC (4.2-5.4) M/uL Hgb (12.0-16.0) g/dL Hct (37-47) % MCV (80-100) fL MCH (25-34) pg MCHC (32-36) g/dL RDW Std Deviation (36.4-46.3) fL RDW Coeff of Dru (11.5-14.5) % Plt Count (130-400) K/uL MPV (7.4-10.4) fL Immature Gran % (Auto) % Neut % (Auto) % Lymph % (Auto) % [place] % (Auto) % Eos % (Auto) % Baso % (Auto) % Immature Gran # (Auto) (0.00-0.02) K/uL Neut # (Auto) (1.4-6.5) K/uL Lymph # (Auto) (1.2-3.4) K/uL [place] # (Auto) (0.11-0.59) K/uL Eos # (Auto) (0-0.5) K/uL Baso # (Auto) (0-0.2) K/uL Absolute Nucleated RBC (0-0) K/uL Nucleated RBC % (auto) % Hypochromasia Poikilocytosis Anisocytosis PT (9.0-12.0) Seconds INR (0.9-1.1) APTT (21.0-31.0) Seconds PTT Ratio Fibrinogen 498 H (184-400) mg/dl Sodium (136-145) mmol/L Potassium (3.5-5.1) mmol/L Chloride (98-107) mmol/L Carbon Dioxide (21-32) mmol/L Anion Gap (3-11) BUN (7-18) mg/dl Creatinine (0.6-1.2) mg/dl Est Cr Clr Drug Dosing ml/min Est GFR ( Amer) Est GFR (Non-Af Amer) BUN/Creatinine Ratio (10-20) Glucose (70-99) mg/dl POC Glucose 127 H (70-99) Calcium (8.5-10.1) mg/dl Phosphorus (2.5-4.9) mg/dl Magnesium (1.8-2.4) mg/dl Total Bilirubin (0.2-1) mg/dl AST (15-37) U/L ALT (12-78) U/L Alkaline Phosphatase (45-117) U/L Ammonia 22.0 (11-32) umol/L Total Protein (6.4-8.2) gm/dl Albumin (3.4-5.0) gm/dl Globulin (2.5-4.0) gm/dl Albumin/Globulin Ratio (0.9-2) Random Cortisol mcg/dl Nasal Screen MRSA (PCR) (Negative) 11/18/18 11/18/18 11/18/18 Range/Units 11:28 09:26 09:25 WBC (4.8-10.8) K/uL RBC (4.2-5.4) M/uL Hgb (12.0-16.0) g/dL Hct (37-47) % MCV (80-100) fL MCH (25-34) pg MCHC (32-36) g/dL RDW Std Deviation (36.4-46.3) fL RDW Coeff of Dru (11.5-14.5) % Plt Count (130-400) K/uL MPV (7.4-10.4) fL Immature Gran % (Auto) % Neut % (Auto) % Lymph % (Auto) % [place] % (Auto) % Eos % (Auto) % Baso % (Auto) % Immature Gran # (Auto) (0.00-0.02) K/uL Neut # (Auto) (1.4-6.5) K/uL Lymph # (Auto) (1.2-3.4) K/uL [place] # (Auto) (0.11-0.59) K/uL Eos # (Auto) (0-0.5) K/uL Baso # (Auto) (0-0.2) K/uL Absolute Nucleated RBC (0-0) K/uL Nucleated RBC % (auto) % Hypochromasia Poikilocytosis Anisocytosis PT 20.9 H (9.0-12.0) Seconds INR 2.2 H (0.9-1.1) APTT (21.0-31.0) Seconds PTT Ratio Fibrinogen (184-400) mg/dl Sodium (136-145) mmol/L Potassium (3.5-5.1) mmol/L Chloride (98-107) mmol/L Carbon Dioxide (21-32) mmol/L Anion Gap (3-11) BUN (7-18) mg/dl Creatinine (0.6-1.2) mg/dl Est Cr Clr Drug Dosing ml/min Est GFR ( Amer) Est GFR (Non-Af Amer) BUN/Creatinine Ratio (10-20) Glucose (70-99) mg/dl POC Glucose 128 H (70-99) Calcium (8.5-10.1) mg/dl Phosphorus (2.5-4.9) mg/dl Magnesium (1.8-2.4) mg/dl Total Bilirubin (0.2-1) mg/dl AST (15-37) U/L ALT (12-78) U/L Alkaline Phosphatase (45-117) U/L Ammonia (11-32) umol/L Total Protein (6.4-8.2) gm/dl Albumin (3.4-5.0) gm/dl Globulin (2.5-4.0) gm/dl Albumin/Globulin Ratio (0.9-2) Random Cortisol 33.60 mcg/dl Nasal Screen MRSA (PCR) (Negative) 11/18/18 11/18/18 11/18/18 Range/Units 08:13 05:37 05:37 WBC 9.30 (4.8-10.8) K/uL RBC 4.13 L (4.2-5.4) M/uL Hgb 11.0 L (12.0-16.0) g/dL Hct 37.4 (37-47) % MCV 90.6 (80-100) fL MCH 26.6 (25-34) pg MCHC 29.4 L (32-36) g/dL RDW Std Deviation 66.5 H (36.4-46.3) fL RDW Coeff of Dru 20.4 H (11.5-14.5) % Plt Count 373 (130-400) K/uL MPV 10.2 (7.4-10.4) fL Immature Gran % (Auto) 0.1 % Neut % (Auto) 70.5 % Lymph % (Auto) 12.7 % [place] % (Auto) 15.3 % Eos % (Auto) 1.1 % Baso % (Auto) 0.3 % Immature Gran # (Auto) 0.01 (0.00-0.02) K/uL Neut # (Auto) 6.56 H (1.4-6.5) K/uL Lymph # (Auto) 1.18 L (1.2-3.4) K/uL [place] # (Auto) 1.42 H (0.11-0.59) K/uL Eos # (Auto) 0.10 (0-0.5) K/uL Baso # (Auto) 0.03 (0-0.2) K/uL Absolute Nucleated RBC 0.03 H (0-0) K/uL Nucleated RBC % (auto) 0.3 % Hypochromasia Present Poikilocytosis Present Anisocytosis Present PT (9.0-12.0) Seconds INR (0.9-1.1) APTT (21.0-31.0) Seconds PTT Ratio Fibrinogen (184-400) mg/dl Sodium 132 L (136-145) mmol/L Potassium 5.1 (3.5-5.1) mmol/L Chloride 97 L (98-107) mmol/L Carbon Dioxide 25 (21-32) mmol/L Anion Gap 10.0 (3-11) BUN 47 H (7-18) mg/dl Creatinine 6.30 H* D (0.6-1.2) mg/dl Est Cr Clr Drug Dosing 12.4 ml/min Est GFR ( Amer) 8.2 Est GFR (Non-Af Amer) 7.0 BUN/Creatinine Ratio 7.5 L (10-20) Glucose 117 H (70-99) mg/dl POC Glucose 112 H (70-99) Calcium 9.7 (8.5-10.1) mg/dl Phosphorus 6.0 H D (2.5-4.9) mg/dl Magnesium 2.3 (1.8-2.4) mg/dl Total Bilirubin 1.5 H (0.2-1) mg/dl AST 17 (15-37) U/L ALT 23 (12-78) U/L Alkaline Phosphatase 134 H (45-117) U/L Ammonia (11-32) umol/L Total Protein 8.2 (6.4-8.2) gm/dl Albumin 2.1 L (3.4-5.0) gm/dl Globulin 6.1 H (2.5-4.0) gm/dl Albumin/Globulin Ratio 0.3 L (0.9-2) Random Cortisol mcg/dl Nasal Screen MRSA (PCR) (Negative)
[2018-11-19] MEDS ORDERED: PHYTONADIONE 5 MG TAB PO STA (06:12)
[2018-11-19] MEDS ORDERED: COSYNTROPIN 1 MCG in SYRINGE 0 ML IV ONE (07:00)
[2018-11-19] MEDS: MIDODRINE HCL 10 MG TAB PO SCH ×3 (07:37→16:25)
[2018-11-19] MEDS: SEVELAMER HCL 800 MG TABLET PO SCH ×3 (07:38→16:25)
[2018-11-19] MEDS: NEPHROCAPS PO SCH (07:40)
[2018-11-19] MEDS: LIDOCAINE 5% 1 PATCH TD SCH (07:40)
[2018-11-19] MEDS: ASPIRIN 81 MG ECTAB PO SCH (07:40)
[2018-11-19] MEDS: NYSTATIN POWDER 15GM BTL EXT SCH ×2 (07:40→20:17)
[2018-11-19] MEDS: CLOPIDOGREL BISULFATE 75 MG TAB PO SCH (07:41)
[2018-11-19] MEDS: PANTOprazole 40 MG TAB PO SCH (07:41)
[2018-11-19] MEDS: INSULIN GLARGINE SOLOSTAR 100 UNITS/ML 3 ML PEN SC SCH ×2 (07:43→20:34)
[2018-11-19] MEDS: INSULIN ASPART 100 UNITS/ML 3 ML PEN SC SCH ×4 (07:45→20:35)
[2018-11-19] MEDS: AMIODARONE 200 MG TAB PO SCH ×2 (08:02→20:17)
[2018-11-19] MEDS: DOCUSATE SODIUM 100 MG CAP PO SCH ×2 (08:02→20:16)
--- NOTE | 2018-11-19 11:24 | Cardiology Progress Note ---
Date of Service November 19, 2018 Assessment & Plan (1) Elevated troponin: The patient has a chronically elevated troponin level. (2) PAF (paroxysmal atrial fibrillation): The patient developed atrial fibrillation with a rapid ventricular response yesterday. She converted to sinus rhythm on intravenous amiodarone. She is currently being transitioned to oral dosing. (3) CAD (coronary artery disease): The patient has history of an LCx PCI in February 2018. Has a chronically occluded right coronary artery. Continue medical management. (4) Ischemic cardiomyopathy: Left ventricular ejection fraction of 35% noted on her current echocardiogram. (5) History of right below knee amputation: Management per vascular surgery team. Subjective The patient is resting comfortably in bed and without complaints. Physical Exam Vital Signs (Past 24 Hours): Last Vital Signs Temp 36.4 C L 11/19/18 08:00 Pulse 72 11/19/18 08:30 Resp 15 11/19/18 08:30 BP 98/64 L 11/19/18 08:01 Pulse Ox 94 11/19/18 05:30 Physical Exam: In general is obese white female lying supine in bed without complaints. HEENT exam is negative. Neck is supple with full carotid upstrokes. No obvious bruits. Jugular venous pressure is flat at 90. There is no thyromegaly. Cardiovascular exam reveals a regular rhythm with distant heart sounds. No obvious murmurs. Lungs are clear anteriorly. Abdomen is soft without bruits. Extremities noted a right BKA. Incision intact. Results & Data Laboratory Results Laboratory Results - last 24 hr 11/18/18 11/18/18 11/18/18 09:26 11:28 13:48 PT INR APTT PTT Ratio Fibrinogen POC Glucose 128 H Ammonia 22.0 Random Cortisol 33.60 Cortisol Response 11/18/18 11/18/18 11/18/18 13:48 15:43 21:22 PT INR APTT PTT Ratio Fibrinogen 498 H POC Glucose 127 H 137 H Ammonia Random Cortisol Cortisol Response 11/19/18 11/19/18 11/19/18 04:25 07:42 08:00 PT 14.1 H INR 1.4 H APTT 40.2 H PTT Ratio 1.5 Fibrinogen POC Glucose 177 H Ammonia Random Cortisol Cortisol Response 11/19/18 11:18 PT INR APTT PTT Ratio Fibrinogen POC Glucose 160 H Ammonia Random Cortisol Cortisol Response Diagnostic Findings shelter monitor notes sinus rhythm. (1) CAD (coronary artery disease) Associated angina: without angina Coronary Disease-Associated Artery/Lesion type: [place] artery [place] vs. transplanted heart: [place] heart Qualified Code(s): I25.10 - Atherosclerotic heart disease of [place] coronary artery without angina pectoris
[2018-11-19] MEDS: HEPARIN SOD 5,000 UNIT/0.5 ML VIAL SQ SCH ×2 (14:05→20:20)
--- NOTE | 2018-11-19 19:22 | Hospitalist Progress Note ---
Date of Service November 19, 2018 Assessment & Plan (1) New onset a-fib: Patient converted to sinus rhythm Transition from IV to p.o. amiodarone today Discussed with [employer] Dr. Lay, appreciate recommendations Wean off Isreal-Synephrine today as w (2) Hypotension: in the setting of A fib in RVR, ICM Continue to wean off of Isreal-Synephrine monitor closely in ICU (3) Hypoxia: secondary to bilateral pleural effusion volume management per Nephro wean off O2 accordingly (4) Elevated troponin: possible NSTEMI Heparin unable to be started due to coagulopathy Cardiology consulted continued on medical therapy (5) CAD (coronary artery disease): (6) Ischemic cardiomyopathy: per Dr. Robles's notes -Troponin on presentation 2.34, EKG does not show acute ST changes -Patient reporting chest pain however seems to be musculoskeletal in nature and not similar to anginal equivalent in the past -History of CAD, S/P KAROLINE to mid circumflex 02/2018 and BMS to circumflex 2015, chronic RCA occlusion -Case discussed with Dr. Venegas who advised initiating heparin drip however unable to at this time due to coagulopathy -Continue cycle cardiac enzymes, check resting echo -Continue aspirin and Plavix; beta-silvia and nitrate as BP allows; holding statin due to elevated LFTs -Denies any cardiac symptoms (7) Abnormal LFTs: per Dr. Robles's notes Likely multifactorial Her ALT was highly elevated in August LFTs are elevated at this time likely secondary to hypoxia/drug-induced/hepatit is/fatty liver with cirrhosis No portal vein thrombosis on ultrasound Appreciate GI input and recommendation She has been on Mucomyst and will finish the course-Mucomyst has been stopped this morning on 11/12 LFTs have been improving Received vitamin K 5 mg orally yesterday LFTs improving and INR is 1.5 today Repeat LFTs shows improvement Ultrasound of the liver did not show any significant cirrhosis and/or fatty infiltration of the liver MRCP-unremarkable, a few gallstones but no obstruction and no biliary ductal dilatation Liver function is improved further Denies any abdominal pain but has nausea and vomited once LFTs remain stable but INR is elevated to 1.9 today 11/18 INR 2.2 given Vit K 5mg monitor 11/19 INR 1.4 Monitor LFTs as well (8) Coagulopathy: per Dr. Robles's notes: -On admission, patient found to have elevated AST and ALT -Initial INR 1.9 with repeat being 2.6 -No history of hepatic disease in the past -? Shock liver from hypotension yesterday -GI consult, case discussed with Dr. Eduardo who advises obtaining hepatitis panel, CMV, EBV, HSV; trend LFTs and coags; started Mucomyst drip per protocol -Liver ultrasound with portal vein Doppler-negative for any thrombus INR management as noted above (9) History of right below knee amputation: -S/P right BKA on 10/[address] Jones -monitor daily (10) Anemia associated with chronic renal failure: Hg stable (11) Eschar of finger: -Left second finger -Following with Dr. Pryor -No signs of active infection (12) ESRD (end stage renal disease) on dialysis: HD per Nephro (13) DM type 2 (diabetes mellitus, type 2): -Hgb A1c 7.3 08/2018 -Lantus and NovoLog per protocol while hospitalized (14) GERD (gastroesophageal reflux disease): -Continue PPI (15) DVT prophylaxis: -None needed at this time, INR 2..2 -Received vitamin K and INR is 1.5 today (16) Physical deconditioning: per Dr. Robles's notes Has multiple comorbid conditions including end-stage renal disease on hemodialysis, cardiomyopathy with EF of 25-30%, abnormal liver function test with increased INR, shortness of breath and requiring oxygen up to 1-2 L to maintain saturation, has been bedbound for a long time especially after right AKA for peripheral vascular disease and ulcer. Detailed discussion was done with her niece yesterday and today We will try more physical therapy and occupational therapy to improve her condition If there is no improvement of her physical condition palliative care consultation should be asked for Discussed with the niece and she is agreeable with it Subjective Follow-up for atrial fibrillation, hypertension Patient converted to sinus rhythm after amiodarone drip was initiated yesterday Also started on Isreal-Synephrine, had hemodialysis yesterday as well This morning, the patient remains in sinus rhythm On very low-dose Isreal-Synephrine Seen sitting up in bed, appears tired but is oriented x3, answers questions appropriately States she has some mild dyspnea, no coughing Denies chest pain, nausea, dizziness Has poor appetite Denies other symptoms Physical Exam Vital Signs (Past 24 Hours): Last Vital Signs Temp 36.7 C 11/19/18 12:00 Pulse 81 11/19/18 18:02 Resp 22 11/19/18 18:02 BP 105/59 L 11/19/18 18:02 Pulse Ox 94 11/19/18 05:30 Physical Exam: General- oriented x 3, not in distress, speaks in sentences with no effort or accessory muscle use Eyes- anicteric Neck- no JVD Lungs-no rales at the bases Heart- normal rate, regular rhythm; no murmurs Abdomen- normal bowel sounds, nondistended, soft, nontender Extremities-right AKA: [place] intact, mild erythema along the surgical incision site, no discharge/no warmth Left lower extremity: No pretibial edema, no calf tenderness Neuro- alert but appears tired, oriented x 3; no gross focal neurologic deficits Skin- warm & dry Results & Data Laboratory Results Laboratory Results - last 24 hr 11/18/18 11/19/18 11/19/18 21:22 04:25 07:42 PT 14.1 H INR 1.4 H APTT 40.2 H PTT Ratio 1.5 POC Glucose 137 H 177 H Cortisol Response 11/19/18 11/19/18 11/19/18 08:00 11:18 16:16 PT INR APTT PTT Ratio POC Glucose 160 H 125 H Cortisol Response (1) DM type 2 (diabetes mellitus, type 2) Diabetes mellitus complication detail: with peripheral angiopathy with gangrene Diabetes mellitus complication status: with circulatory complication Diabetes mellitus detention insulin use: with detention use Qualified Code(s): E11.52 - Type 2 diabetes mellitus with diabetic peripheral angiopathy with gangrene; Z79.4 - alf (current) use of insulin (2) CAD (coronary artery disease) Associated angina: without angina Coronary Disease-Associated Artery/Lesion type: [place] artery [place] vs. transplanted heart: [place] heart Qualified Code(s): I25.10 - Atherosclerotic heart disease of [place] coronary artery without angina pectoris (3) GERD (gastroesophageal reflux disease) Esophagitis presence: without esophagitis Qualified Code(s): K21.9 - Gastro- esophageal reflux disease without esophagitis
[2018-11-19] MEDS: GABAPENTIN 300 MG CAP PO SCH (20:18)
[2018-11-19] MEDS: SERTRALINE HCL 50 MG TABLET PO SCH (20:20)
[2018-11-20 04:44] LABS: Basophils # (auto) 0.01 K/uL (0-0.2); Basophils % (auto) 0.1 %; Eosinophils # (auto) 0.07 K/uL (0-0.5); Eosinophils % (auto) 0.8 %; Hematocrit (blood only) 36.1 % (37-47); Hemoglobin 10.8 g/dL (12.0-16.0); Immature Granulocytes # (auto) 0.02 K/uL (0.00-0.02); Immature Granulocytes % (auto) 0.2 %; Lymphocytes % (auto) 10.9 %; Mean Corpuscular Hgb Conc 29.9 g/dL (32-36); Mean Corpuscular Volume 87.4 fL (80-100); Mean Platelet Volume 9.8 fL (7.4-10.4); Monocytes # (auto) 1.06 K/uL (0.11-0.59); Monocytes % (auto) 11.6 %; Neutrophils # (auto) 6.98 K/uL (1.4-6.5); Neutrophils % (auto) 76.4 %; Nucleated RBC # (auto) 0.14 K/uL (0-0); Nucleated RBC % (auto) 1.5 %; Platelet Count 401 K/uL (130-400); RDW Coefficient of Variation 20.2 % (11.5-14.5); RDW Standard Deviation 63.5 fL (36.4-46.3); Red Blood Count 4.13 M/uL (4.2-5.4); White Blood Count 9.14 K/uL (4.8-10.8)
[2018-11-20] MEDS: HEPARIN SOD 5,000 UNIT/0.5 ML VIAL SQ SCH ×3 (05:03→20:39)
[2018-11-20] MEDS: LEVOTHYROXINE SODIUM 50 MCG TABLET PO SCH (05:03)
[2018-11-20 05:15] LABS: Anisocytosis Present; Echinocytes 1+; Ovalocytes 1+; Polychromasia 1+
[2018-11-20 05:34] LABS: Albumin Level 1.9 gm/dl (3.4-5.0); BUN Creatinine Ratio 7.4 (10-20); Bilirubin Direct 1.1 mg/dl (0-0.2); Bilirubin,Total 1.4 mg/dl (0.2-1); Calcium 9.7 mg/dl (8.5-10.1); Est GFR (African American) 10.2; Est GFR (Non-African American) 8.8; Magnesium 2.1 mg/dl (1.8-2.4); Potassium 4.7 mmol/L (3.5-5.1); Total Protein 7.7 gm/dl (6.4-8.2)
[2018-11-20] MEDS: PHENYLEPHRINE HCL 20 MG in DEXTROSE 5% 500 ML IV PRN (05:53)
--- NOTE | 2018-11-20 07:27 | Nephrology Progress Note ---
Date of Service November 20, 2018 Assessment & Plan (1) ESRD (end stage renal disease) on dialysis: ESRD patient on HD TTS. She tolerated HD on 11/19. She is still volume overload. Next HD tomorrow -cont BB and midodrine and pressor as needed -Continue IV iron and epo w/ HD; binders also continued -lower sodium noted - in esrd pt due in part to vol OL; monitor Subjective had 3L UF on 11/18, same day on which she was moved to ICU w/ AF w/ RVR; required pressors to get UF; remained on pressors this am when seen during rounds. pt had been awake briefly earlier in am but difficult to keep her awake per nursing > she woke ot take pills only; did not eat. ROS not obtained d/t pt lethargy Physical Exam Vital Signs (Past 24 Hours): Last Vital Signs Temp 36.5 C 11/20/18 04:02 Pulse 83 11/20/18 07:01 Resp 19 11/20/18 07:01 BP 111/82 11/20/18 07:01 Pulse Ox 94 11/20/18 07:13 Constitutional: well developed, well nourished, + obese, comfortable and + lethargic wakes very briefly w/ repeated and annoying stimuli, on 02nc Eyes: EOM intact bilaterally ENMT: Ears: no external ear abnormality Nose: no external nose abnormality Mouth: + dry oral mucous membranes Neck: no nuchal rigidity Respiratory: normal respiratory effort Auscultation: + diminished lung sounds Cardiovascular: Rate/Rhythm: regular rate and regular rhythm Extremities: + AV fistula (+ t/b); no edema Gastrointestinal (Abdomen): Inspection/Auscultation: normal bowel sounds Percussion/Palpation: abdomen soft; abdomen nontender, no guarding and no fluid wave Musculoskeletal: Extremities: strength 5/5 throughout Skin: no rashes, warm and dry Neurologic: stein w/ limited but fluent speech Results & Data Laboratory Results Abnormal lab results 11/20/18 11/20/18 11/20/18 Range/Units 04:33 04:34 06:32 RBC 4.13 L (4.2-5.4) M/uL Hgb 10.8 L (12.0-16.0) g/dL Hct 36.1 L (37-47) % MCHC 29.9 L (32-36) g/dL RDW Std Deviation 63.5 H (36.4-46.3) fL RDW Coeff of Dru 20.2 H (11.5-14.5) % Plt Count 401 H (130-400) K/uL Neut # (Auto) 6.98 H (1.4-6.5) K/uL Lymph # (Auto) 1.00 L (1.2-3.4) K/uL [place] # (Auto) 1.06 H (0.11-0.59) K/uL Absolute Nucleated RBC 0.14 H (0-0) K/uL Sodium 126 L (136-145) mmol/L Chloride 93 L (98-107) mmol/L Anion Gap 12.0 H (3-11) BUN 38 H (7-18) mg/dl Creatinine 5.23 H* D (0.6-1.2) mg/dl BUN/Creatinine Ratio 7.4 L (10-20) Glucose 131 H (70-99) mg/dl POC Glucose 177 H (70-99) Total Bilirubin 1.4 H (0.2-1) mg/dl Direct Bilirubin 1.1 H (0-0.2) mg/dl AST 50 H (15-37) U/L Alkaline Phosphatase 126 H (45-117) U/L Albumin 1.9 L (3.4-5.0) gm/dl Cortisol AM Sample (4.3-22.4) mcg/dl 11/20/18 11/20/18 11/20/18 Range/Units 07:53 11:25 16:48 RBC (4.2-5.4) M/uL Hgb (12.0-16.0) g/dL Hct (37-47) % MCHC (32-36) g/dL RDW Std Deviation (36.4-46.3) fL RDW Coeff of Dru (11.5-14.5) % Plt Count (130-400) K/uL Neut # (Auto) (1.4-6.5) K/uL Lymph # (Auto) (1.2-3.4) K/uL [place] # (Auto) (0.11-0.59) K/uL Absolute Nucleated RBC (0-0) K/uL Sodium (136-145) mmol/L Chloride (98-107) mmol/L Anion Gap (3-11) BUN (7-18) mg/dl Creatinine (0.6-1.2) mg/dl BUN/Creatinine Ratio (10-20) Glucose (70-99) mg/dl POC Glucose 100 H 108 H (70-99) Total Bilirubin (0.2-1) mg/dl Direct Bilirubin (0-0.2) mg/dl AST (15-37) U/L Alkaline Phosphatase (45-117) U/L Albumin (3.4-5.0) gm/dl Cortisol AM Sample 31.78 H (4.3-22.4) mcg/dl 11/20/18 Range/Units 20:46 RBC (4.2-5.4) M/uL Hgb (12.0-16.0) g/dL Hct (37-47) % MCHC (32-36) g/dL RDW Std Deviation (36.4-46.3) fL RDW Coeff of Dru (11.5-14.5) % Plt Count (130-400) K/uL Neut # (Auto) (1.4-6.5) K/uL Lymph # (Auto) (1.2-3.4) K/uL [place] # (Auto) (0.11-0.59) K/uL Absolute Nucleated RBC (0-0) K/uL Sodium (136-145) mmol/L Chloride (98-107) mmol/L Anion Gap (3-11) BUN (7-18) mg/dl Creatinine (0.6-1.2) mg/dl BUN/Creatinine Ratio (10-20) Glucose (70-99) mg/dl POC Glucose 130 H (70-99) Total Bilirubin (0.2-1) mg/dl Direct Bilirubin (0-0.2) mg/dl AST (15-37) U/L Alkaline Phosphatase (45-117) U/L Albumin (3.4-5.0) gm/dl Cortisol AM Sample (4.3-22.4) mcg/dl
[2018-11-20] MEDS: PANTOprazole 40 MG TAB PO SCH (07:41)
[2018-11-20] MEDS: SEVELAMER HCL 800 MG TABLET PO SCH ×3 (07:41→17:13)
[2018-11-20] MEDS: MIDODRINE HCL 10 MG TAB PO SCH ×3 (07:41→16:59)
[2018-11-20] MEDS: AMIODARONE 200 MG TAB PO SCH ×2 (07:41→20:34)
[2018-11-20] MEDS: LIDOCAINE 5% 1 PATCH TD SCH ×2 (07:42→15:19)
[2018-11-20] MEDS: NEPHROCAPS PO SCH (07:42)
[2018-11-20] MEDS: CLOPIDOGREL BISULFATE 75 MG TAB PO SCH (07:42)
[2018-11-20] MEDS: DOCUSATE SODIUM 100 MG CAP PO SCH ×2 (07:42→20:34)
[2018-11-20] MEDS: ASPIRIN 81 MG ECTAB PO SCH (07:42)
[2018-11-20] MEDS: INSULIN GLARGINE SOLOSTAR 100 UNITS/ML 3 ML PEN SC SCH ×2 (07:43→20:35)
[2018-11-20] MEDS: NYSTATIN POWDER 15GM BTL EXT SCH ×2 (07:44→20:36)
[2018-11-20] MEDS: INSULIN ASPART 100 UNITS/ML 3 ML PEN SC SCH ×4 (09:01→20:47)
[2018-11-20] MEDS: PHENYLEPHRINE HCL 40 MG in DEXTROSE 5% 500 ML IV PRN (09:07)
--- NOTE | 2018-11-20 11:14 | Critical Care Progress Note ---
"Date of Service November 20, 2018 Assessment & Plan (1) Admitted to intensive care unit: Reason Critically Ill: 52 year-old Female here for hypotension and atrial fibrillation with rapid ventricular response. Past medical history significant for AFIB, MRSA +ve, Anemia, R BKA, ESRD on HD, CAD, Poorly Controlled DMII, Morbid obesity, and current smoker. PLAN: Neuro: CAM ICU positive metabolic encephalopathy unlikely -ammonia wnl Resp: Acute hypoxic respiratory failure Right-sided pleural effusion on chest x-ray -Currently Satting 96% on 2L NC; wean O2 as tolerated CV: Hypotension: Improved -Wean phenylephrine as tolerated Atrial fibrillation with rapid ventricular response with spontaneous conversion to NSR on November 18 -Continue amiodarone 200 mg twice daily Fluids/Renal: End-stage renal disease on hemodialysis -Tolerated dialysis on 11/18 with phenylephrine -Next HD will be determined by Nephro ID: Pt continues to be afebrile monitor fever curve Blood cultures remain negative -Given lack of clinical improvement and prolonged ICU stay trial of empiric zosyn and vanco GI/Nutrition: Hepatic insufficiency of unclear etiology -Completed Mucomyst protocol -Meld score 32 on 11/18 down to 30 today 52% 3 month mortality -Compromised MRCP, no evidence of ductal dilatation -Hepatitis serologies negative Patient is eating approximately 1/2 of their meals Heme: Elevated INR -INR 2.2->1.4->1.4 s/p 2 days of 5 mg IV vitamin K. Anemia of chronic disease DVT prophylaxis: SCDs: Heparin 5000 mg 3 times daily today Endocrine: ICU hyperglycemia protocol -Random cortisol 33.6 -Cosyntropin stim test today negative for adrenal insufficiency - BASE 28.53 Col: 11/19/18 0800 elevated 30MIN 39.79 Col: 11/19/18 0835 did not double 1HR 35.10 Col: 11/19/18 0905 | Normal baseline cortisol: | 4.3-22.4 mcg/dl before 9 AM and 3.1-16.6 mcg/dl after 3 PM. Vascular access: Right internal jugular central venous catheter triple lumen Code Status: DNR in event of cardiac arrest. Thank you for allowing us to be part of this patient's care. Please refer to Dr. Ballesteros's documentation for any further recommendations. Supervising Physician Co-Signing Physician Notes Patient seen and examined with the resident. I agree with above except as noted below 52 y/o female with ESRD who presented with hypotension from unknown cause. today she complains of pain at BKA surgical site Constitutional: Comfortable NAD HEENT: normocephalic atraumatic. MMM. CV: irregularly irregular nl s1,s2 no murmurs rubs or gallops Lungs: clear to auscultation bilaterally. no accessory muscle use Abd: soft nontender nondistended. Ext: +LE edema. no cyanosis. R BKA with some redness and tenderness at incision site Skin: warm dry Neuro: alert and oriented. moving all extremities Psych: normal mood and affect a/p Neuro- awake alert CV- hypotension ?related to chronic renal failure. r/o septic. continue phenylephrine-will try to taper down. afib rate controlled Pulmonary-sat well on NC ID- no clear infection. BKA site red but does not appear clearly infected. cultures remain negative. will start abx since patient has been hypotensive without a clear cause Renal- ESRD -dialysis per renal. hyponatremia GI- diet as tolerated Heme- anemia. heparin proph Endocrine- appropriate response to cosyntropin stim. blood sugars controlled Dispo- continue ICU care for hemodynamic support I have personally spent 45 minutes of critical care time in the direct management of this patient. This is a life/limb threatening event. This includes time spent evaluating patient, direct bedside care, chart review, placing orders, interpretation of diagnostic studies, discussion with consultants, patient, and/or family members regarding treatment decisions, as well as other required patient management activities. This time is exclusive of all separately billable procedures, and teaching time and separate from and in addition to any other critical care service time. Romeo Ballesteros M.D Pulmonary/Critical care medicine Subjective 52 year-old Female admitted to the ICU for hypotension and atrial fibrillation with rapid ventricular response. Past medical history significant for AFIB, MRSA +ve, Anemia, R BKA, ESRD on HD, CAD, Poorly Controlled DMII, Morbid obesity, and current smoker. Pt was difficult to arouse this morning, reports not sleeping well. Pt responds to questioning upon arousal. Was unable to provide further hx on recent [facility]. Pt reports no acute distress and no complaints. Daughter was at the bedside during the exam. Pt is anuric 2/2 ESRD, had a BM at 1 am per nursing, tolerating diet although not eating a ton, and frequently sleeping. I contacted Dr. Kenney's office to obtain records regarding pts recent I&D. Pt was examined and plan discussed with my attending, Dr. Ballesteros Physical Exam Vital Signs (Past 24 Hours): Last Vital Signs Temp 36.5 C 11/20/18 04:02 Pulse 83 11/20/18 07:01 Resp 19 11/20/18 07:01 BP 111/82 11/20/18 07:01 Pulse Ox 94 11/20/18 07:13 Constitutional: + ill appearing, + morbidly obese, + disheveled and + lethargic Eyes: PERRL, conjunctivae normal, anicteric sclerae Neck: trachea midline, no thyromegaly (R Tripple Lumen IJ in place ) normal visual inspection Respiratory: normal respiratory effort, lungs clear to auscultation Cardiovascular: Heart Sounds: normal S1 and normal S2; no murmur (Did not appreciate any murmurs) Extremities: no calf tenderness Gastrointestinal (Abdomen): normal bowel sounds, soft, nontender, no hepatosplenomegaly Musculoskeletal: Right Leg BKA, Surgical Site Clean Dry and Intact Left Index finger eschar, right big toe wound dressing Skin: As above Neurologic: PERRL, EOMI, accommodation nl, no face palsy, no dysarthria Results & Data Laboratory Results Laboratory Results WBC 9.14 K/uL (4.8-10.8) 11/20/18 04:34 RBC 4.13 M/uL (4.2-5.4) L 11/20/18 04:34 Hgb 10.8 g/dL (12.0-16.0) L 11/20/18 04:34 Hct 36.1 % (37-47) L 11/20/18 04:34 MCV 87.4 fL (80-100) 11/20/18 04:34 MCH 26.2 pg (25-34) 11/20/18 04:34 MCHC 29.9 g/dL (32-36) L 11/20/18 04:34 RDW Std Deviation 63.5 fL (36.4-46.3) H 11/20/18 04:34 RDW Coeff of Dru 20.2 % (11.5-14.5) H 11/20/18 04:34 Plt Count 401 K/uL (130-400) H 11/20/18 04:34 MPV 9.8 fL (7.4-10.4) 11/20/18 04:34 Immature Gran % (Auto) 0.2 % 11/20/18 04:34 Neut % (Auto) 76.4 % 11/20/18 04:34 Lymph % (Auto) 10.9 % 11/20/18 04:34 Heard % (Auto) 11.6 % 11/20/18 04:34 Eos % (Auto) 0.8 % 11/20/18 04:34 Baso % (Auto) 0.1 % 11/20/18 04:34 Immature Gran # (Auto) 0.02 K/uL (0.00-0.02) 11/20/18 04:34 Neut # (Auto) 6.98 K/uL (1.4-6.5) H 11/20/18 04:34 Lymph # (Auto) 1.00 K/uL (1.2-3.4) L 11/20/18 04:34 Heard # (Auto) 1.06 K/uL (0.11-0.59) H 11/20/18 04:34 Eos # (Auto) 0.07 K/uL (0-0.5) 11/20/18 04:34 Baso # (Auto) 0.01 K/uL (0-0.2) 11/20/18 04:34 Absolute Nucleated RBC 0.14 K/uL (0-0) H 11/20/18 04:34 Nucleated RBC % (auto) 1.5 % 11/20/18 04:34 Polychromasia 1+ 11/20/18 04:34 Hypochromasia Present 11/18/18 05:37 Poikilocytosis Present 11/18/18 05:37 Basophilic Stippling 1+ 11/17/18 07:24 Anisocytosis Present 11/20/18 04:34 Macrocytosis Present 11/16/18 08:04 Spherocytes Occasional 11/17/18 07:24 Target Cells 1+ 11/12/18 07:26 Ovalocytes 1+ 11/20/18 04:34 Echinocytes 1+ 11/20/18 04:34 PT 14.1 Seconds (9.0-12.0) H 11/19/18 04:25 INR 1.4 (0.9-1.1) H 11/19/18 04:25 APTT 40.2 Seconds (21.0-31.0) H 11/19/18 04:25 PTT Ratio 1.5 11/19/18 04:25 Fibrinogen 498 mg/dl (184-400) H 11/18/18 13:48 VBG pH 7.37 (7.36-7.41) 11/10/18 12:23 VBG pCO2 55 mmHg (38-50) H 11/10/18 12:23 VBG pO2 35 mmHg 11/10/18 12:23 VBG HCO3 31 mmol/L 11/10/18 12:23 VBG O2 Saturation 63.1 % 11/10/18 12:23 VBG Base Excess 4.7 mEq/L 11/10/18 12:23 Barometric Pressure 721.5 mm/Hg 11/10/18 12:23 Sodium 126 mmol/L (136-145) L 11/20/18 04:33 Potassium 4.7 mmol/L (3.5-5.1) 11/20/18 04:33 Chloride 93 mmol/L (98-107) L 11/20/18 04:33 Carbon Dioxide 21 mmol/L (21-32) 11/20/18 04:33 Anion Gap 12.0 (3-11) H 11/20/18 04:33 BUN 38 mg/dl (7-18) H 11/20/18 04:33 Creatinine 5.23 mg/dl (0.6-1.2) H* D 11/20/18 04:33 Est Cr Clr Drug Dosing 16.0 ml/min 11/20/18 04:33 Est GFR ( Amer) 10.2 11/20/18 04:33 Est GFR (Non-Af Amer) 8.8 11/20/18 04:33 BUN/Creatinine Ratio 7.4 (10-20) L 11/20/18 04:33 Glucose 131 mg/dl (70-99) H 11/20/18 04:33 POC Glucose 100 (70-99) H 11/20/18 11:25 Lactate 1.9 mmol/L (0.4-2.0) 11/20/18 04:34 Calcium 9.7 mg/dl (8.5-10.1) 11/20/18 04:33 Phosphorus 6.0 mg/dl (2.5-4.9) H D 11/18/18 05:37 Magnesium 2.1 mg/dl (1.8-2.4) 11/20/18 04:33 Total Bilirubin 1.4 mg/dl (0.2-1) H 11/20/18 04:33 Direct Bilirubin 1.1 mg/dl (0-0.2) H 11/20/18 04:33 AST 50 U/L (15-37) H 11/20/18 04:33 ALT 33 U/L (12-78) 11/20/18 04:33 Alkaline Phosphatase 126 U/L (45-117) H 11/20/18 04:33 Ammonia 22.0 umol/L (11-32) 11/18/18 13:48 Troponin I 1.660 ng/ml (0-0.045) H* 11/14/18 06:11 Total Protein 7.7 gm/dl (6.4-8.2) 11/20/18 04:33 Albumin 1.9 gm/dl (3.4-5.0) L 11/20/18 04:33 Globulin 6.1 gm/dl (2.5-4.0) H 11/18/18 05:37 Albumin/Globulin Ratio 0.3 (0.9-2) L 11/18/18 05:37 Lipase 112 U/L (73-393) 11/20/18 04:33 TSH 3.230 uIu/ml (0.300-4.500) 11/10/18 12:23 Random Cortisol 33.60 mcg/dl 11/18/18 09:26 Cortisol Response mcg/dl 11/19/18 08:00 Cortisol AM Sample 31.78 mcg/dl (4.3-22.4) H 11/20/18 07:53 Specimen Hemolysis 11/10/18 12:23 Nasal Screen MRSA (PCR) Positive (Negative) A 11/18/18 Unknown EBV Capsid Ag IgM Ab < 36.00 U/ML 11/10/18 19:25 Hepatitis A IgM Ab NON-REACTIVE (NON-REACTIVE) 11/10/18 19:25 Hep Bs Antigen Neg (Neg) 11/10/18 19:25 Hep B Core IgM Ab NON-REACTIVE (NON-REACTIVE) 11/10/18 19:25 Hepatitis C Antibody Neg (Neg) 11/10/18 19:25 HSV I IgM Ab (IFA) Negative (Negative) 11/10/18 19:25 HSV II IgM Ab (IFA) Negative (Negative) 11/10/18 19:25 Medications Administered Current Inpatient Medications Amiodarone HCl (Cordarone) 200 mg PO BID [facility] Stop: 12/19/18 08:59 Last Admin: 11/20/18 07:41 Dose: 200 mg Documented by: Aspirin (Ecotrin Ectab) 81 mg PO QAM [facility] Stop: 12/11/18 08:59 Last Admin: 11/20/18 07:42 Dose: 81 mg Documented by: Clopidogrel Bisulfate (Plavix) 75 mg PO QAM [facility] Stop: 12/11/18 08:59 Last Admin: 11/20/18 07:42 Dose: 75 mg Documented by: Dextrose (Dextrose 50%) 25 - 50 ml IV UD PRN; Protocol PRN Reason: Hypoglycemia Protocol Stop: 12/10/18 16:09 Docusate Sodium (Colace) 100 mg PO BID [facility] Stop: 12/10/18 20:59 Last Admin: 11/20/18 07:42 Dose: 100 mg Documented by: Gabapentin (Neurontin) 300 mg PO HS [facility] Stop: 12/10/18 20:59 Last Admin: 11/19/18 20:18 Dose: 300 mg Documented by: Glucagon (Glucagen) 1 mg SQ UD PRN; Protocol PRN Reason: Hypoglycemia Protocol Stop: 12/10/18 16:09 Glucose (Glucose 40%) 15 - 30 gm PO UD PRN; Protocol PRN Reason: Hypoglycemia Protocol Stop: 12/10/18 16:09 Glucose (Dex4 Glucose) 4 - 8 tabs PO UD PRN; Protocol PRN Reason: Hypoglycemia Protocol Stop: 12/10/18 16:09 Heparin Sodium (Beef Lung) (Heparin Sod 10 Unit/Ml Flush) 5 ml FLUSH PRN PRN PRN Reason: Flush Stop: 12/19/18 00:05 Heparin Sodium (Porcine) (Heparin Sodium (Porcine)) 5,000 units SQ Q8 [facility] Stop: 12/19/18 13:59 Last Admin: 11/20/18 05:03 Dose: 5,000 units Documented by: Iron Sucrose 100 mg/ Syringe 5 mls @ 1 mls/min IV TuThSa@0600 [facility] Stop: 12/11/18 05:59 Last Admin: 11/18/18 06:02 Dose: Not Given Documented by: Phenylephrine HCl 40 mg/ (Dextrose) 504 mls @ 22.07 mls/hr IV .[id number] PRN; Protocol PRN Reason: Blood Pressure - Low Stop: 12/20/18 08:50 Last Titration: 11/20/18 10:00 Dose: 0.3 mcg/kg/min, 22.1 mls/hr Documented by: Insulin Aspart (Novolog Flexpen) 0 units SC ACHS [facility] Stop: 12/10/18 16:29 Last Admin: 11/20/18 09:01 Dose: 2 units Documented by: Insulin Glargine (Lantus Solostar Pen) 5 units SC Q12 [facility] Stop: 12/10/18 16:59 Last Admin: 11/20/18 07:43 Dose: 5 units Documented by: Levalbuterol HCl (Xopenex 0.63 Mg/3 Ml Neb) 0.63 mg NEB Q4H PRN PRN Reason: Shortness Of Breath Or Wheezin Stop: 12/14/18 20:57 Last Admin: 11/14/18 22:13 Dose: 0.63 mg Documented by: Levothyroxine Sodium (Synthroid) 50 mcg PO DAILYBB [facility] Stop: 12/11/18 06:29 Last Admin: 11/20/18 05:03 Dose: 50 mcg Documented by: Lidocaine (Lidoderm 5%) 1 patch TD QAM [facility] Stop: 12/11/18 08:59 Last Admin: 11/20/18 07:42 Dose: 1 patch Documented by: Magnesium Hydroxide (Milk Of Magnesia) 30 ml PO DAILY PRN PRN Reason: Constipation Stop: 12/10/18 16:00 Meclizine HCl (Antivert) 25 mg PO TID PRN PRN Reason: Dizziness Stop: 12/10/18 16:00 Miconazole Nitrate (Desenex) 1 appln EXT PRN PRN PRN Reason: Affected Skin Folds Stop: 12/17/18 10:49 Midodrine (Proamatine) 10 mg PO TID@0700,1200,1700 [facility] Stop: 12/10/18 16:59 Last Admin: 11/20/18 07:41 Dose: 10 mg Documented by: Miscellaneous (Order Awaiting Action) 1 ea N/A QS [facility] Stop: 12/11/18 00:00 Last Admin: 11/20/18 07:43 Dose: Not Given Documented by: Miscellaneous (Remove Lidoderm Patch) 1 ea N/A DAILY@2099 [facility] Stop: 12/10/18 20:59 Last Admin: 11/19/18 20:18 Dose: Not Given Documented by: Miscellaneous (Carbohydrates For Hypoglycemia) 15 - 30 gm PO UD PRN PRN Reason: Hypoglycemia Treatment Stop: 12/10/18 16:09 Nystatin (Mycostatin) 1 appln EXT BID [facility] Stop: 12/10/18 20:59 Last Admin: 11/20/18 07:44 Dose: 1 appln Documented by: Ondansetron HCl (Zofran) 4 mg PO QID PRN PRN Reason: Nausea Stop: 12/10/18 16:00 Last Admin: 11/16/18 22:05 Dose: 4 mg Documented by: Oxycodone HCl (Roxicodone Immediate Rel) 5 mg PO Q6H PRN PRN Reason: Pain Stop: 12/04/18 08:55 Pantoprazole Sodium (Protonix) 40 mg PO QAM [facility] Stop: 12/11/18 08:59 Last Admin: 11/20/18 07:41 Dose: 40 mg Documented by: Polyethylene Glycol (Miralax Powder Packet) 17 gm PO QDL PRN PRN Reason: Constipation Stop: 12/10/18 16:00 Senna/Docusate Sodium (Senokot S) 1 tab PO QDL PRN PRN Reason: Constipation Stop: 12/10/18 16:00 Sertraline HCl (Zoloft) 25 mg PO TODAY@2099 [facility] Stop: 12/15/18 20:59 Last Admin: 11/19/18 20:20 Dose: 25 mg Documented by: Sevelamer HCl (Renagel) 3,200 mg PO TIDM [facility] Stop: 12/10/18 16:59 Last Admin: 11/20/18 07:41 Dose: 3,200 mg Documented by: Vitamin B Complex/Folic Acid (Nephrocaps) 1 cap PO QAM [facility] Stop: 12/11/18 08:59 Last Admin: 11/20/18 07:42 Dose: 1 cap Documented by: Resident Activity Tracking Resident Involvement: Resident Care Provided Care Provided: Adult Hospital Medicine (ICU)"
--- NOTE | 2018-11-20 12:55 | Cardiology Progress Note ---
Date of Service November 20, 2018 Assessment & Plan (1) Elevated troponin: 2. Paroxysmal atrial fibrillation 3. Ischemic cardiomyopathy, EF 35% 4. Stable multivessel CAD 5. End-stage renal disease on HD, hyponatremia 6. Persistent hypotension requiring vasopressors 7. Peripheral arterial disease 8. Suspected metabolic encephalopathy 9. Elevated LFTs/coagulopathy Patient remains in sinus rhythm on p.o. amiodarone. Hypotension persists, requiring continuous phenylephrine. On exam extremities appear well-perfused, mild vascular congestion Continue p.o. amiodarone 200 mg twice daily for next week In the setting of intermittent coagulopathy with hypotension would hold off on anticoagulation. Continue dual antiplatelet therapy with aspirin, clopidogrel Volume management per nephrology Continue to hold home metoprolol, nitrates Wean pressors as able, currently do not feel hypotension related to low cardiac output. Subjective Patient appears sleepy. Denies chest pain or shortness of breath. Reports intermittent pain at right lower extremity surgical site and over sacrum. Remains in sinus rhythm. Hypotension persists. Remains on phenylephrine. Review of Systems Otherwise negative as stated in HPI Physical Exam Vital Signs (Past 24 Hours): Last Vital Signs Temp 36.5 C 11/20/18 12:00 Pulse 73 11/20/18 12:30 Resp 17 11/20/18 12:30 BP 94/58 L 11/20/18 12:30 Pulse Ox 96 11/20/18 12:30 Physical Exam: General: Obese, sleepy Eyes: Sclerae anicteric, extraocular movements intact HENT: Oropharynx clear mucous membranes moist Lungs: Clear to auscultation bilaterally, no rhonchi or wheezes Cardiac: Regular rate and rhythm, no murmurs, rubs or gallops. Abdomen: Soft, nontender, nondistended, positive bowel sounds. Extremities: Well perfused, no left lower extremity edema. Right lower extremity BKA site with mild erythema around petra Neuro: Nonfocal
[2018-11-20] MEDS ORDERED: PIPERACILL/TAZOBAC CONSULT ACTIVE PRN (13:05)
[2018-11-20] MEDS ORDERED: VANCOMYCIN CONSULT ACTIVE PRN (13:05)
[2018-11-20] MEDS ORDERED: PIPERACILLIN/TAZOBACTAM 3.375 GM in DEXTROSE 5% 100 ML IV STA (13:08)
[2018-11-20] MEDS ORDERED: VANCOMYCIN HCL 1,750 MG in SODIUM CHLORIDE 0.9% 500 ML IV STA (13:09)
--- NOTE | 2018-11-20 13:21 | Pharmacy Report ---
Pharmacy Abx Dose Short Note - Date of Service November 20, 2018 - Assessment & Plan Assessment * 52 year old F admitted on 11/10 for hypotension. Currently in ICU with persistent hypotension requiring pressure support with phenylephrine * Chronic HD patient - nephrology following. Last HD session was 11/18. Not likely to have HD today per conversation with Dr. Mas this AM. * Spoke w manager social (Dr. Ballesteros) - concerned for lack of improvement in hypotension and lengthy hospital stay. Therefore patient to start on empiric Zosyn and vancomycin * WBC wnl and afebrile for this admission thus far Vancomycin * HD patients require a weight-based loading dose, then ongoing post-HD doses (usually 500-1000 mg) based on pre-HD level * Will give 16 mg/kg loading dose Plan * Vancomycin 1750 mg IV x1 * Random level tomorrow AM Pharmacy will continue to follow and will adjust dose/frequency as necessary. Thank you.
--- NOTE | 2018-11-20 19:47 | Hospitalist Progress Note ---
Date of Service November 20, 2018 Assessment & Plan (1) New onset a-fib: Patient converted to sinus rhythm Transition from IV to p.o. amiodarone Discussed with cash accounting clerk Dr. Lay, appreciate recommendations Wean off Isreal-Synephrine accordingly (2) Hypotension: in the setting of A fib in RVR, ICM Blood cultures negative Cosyntropin test performed Empiric vancomycin and Zosyn added Continue to wean off of Isreal-Synephrine monitor closely in ICU (3) Hypoxia: secondary to bilateral pleural effusion volume management per Nephro wean off O2 accordingly (4) Elevated troponin: possible NSTEMI Heparin unable to be started due to coagulopathy Cardiology consulted continued on medical therapy (5) CAD (coronary artery disease): (6) Ischemic cardiomyopathy: per Dr. Robles's notes -Troponin on presentation 2.34, EKG does not show acute ST changes -Patient reporting chest pain however seems to be musculoskeletal in nature and not similar to anginal equivalent in the past -History of CAD, S/P KAROLINE to mid circumflex 02/2018 and BMS to circumflex 2015, chronic RCA occlusion -Case discussed with Dr. Venegas who advised initiating heparin drip however unable to at this time due to coagulopathy -Continue cycle cardiac enzymes, check resting echo -Continue aspirin and Plavix; beta-silvia and nitrate as BP allows; holding sta tin due to elevated LFTs -Denies any cardiac symptoms (7) Abnormal LFTs: per Dr. Robles's notes Likely multifactorial Her ALT was highly elevated in August LFTs are elevated at this time likely secondary to hypoxia/drug- induced/hepatitis/fatty liver with cirrhosis No portal vein thrombosis on ultrasound Appreciate GI input and recommendation She has been on Mucomyst and will finish the course-Mucomyst has been stopped this morning on 11/12 LFTs have been improving Received vitamin K 5 mg orally yesterday LFTs improving and INR is 1.5 today Repeat LFTs shows improvement Ultrasound of the liver did not show any significant cirrhosis and/or fatty infiltration of the liver MRCP-unremarkable, a few gallstones but no obstruction and no biliary ductal dilatation Liver function is improved further Denies any abdominal pain but has nausea and vomited once LFTs remain stable but INR is elevated to 1.9 today 11/18 INR 2.2 given Vit K 5mg monitor 11/19 INR 1.4 Monitor LFTs as well 11/20/18 LFTs same Continue to monitor (8) Coagulopathy: per Dr. Robles's notes: -On admission, patient found to have elevated AST and ALT -Initial INR 1.9 with repeat being 2.6 -No history of hepatic disease in the past -? Shock liver from hypotension yesterday -GI consult, case discussed with Dr. Eduardo who advises obtaining hepatitis panel, CMV, EBV, HSV; trend LFTs and coags; started Mucomyst drip per protocol -Liver ultrasound with portal vein Doppler-negative for any thrombus INR management as noted above (9) History of right below knee amputation: -S/P right BKA on 10/[address] Jones Does not overtly appear to be infected, but vancomycin Zosyn started empirically (10) Anemia associated with chronic renal failure: Hg stable (11) Eschar of finger: -Left second finger -Following with Dr. Pryor -No signs of active infection (12) ESRD (end stage renal disease) on dialysis: HD per Nephro (13) DM type 2 (diabetes mellitus, type 2): -Hgb A1c 7.3 08/2018 -Lantus and NovoLog per protocol while hospitalized (14) GERD (gastroesophageal reflux disease): -Continue PPI (15) DVT prophylaxis: -None needed at this time, INR 2..2 -Received vitamin K and INR is 1.5 today (16) Physical deconditioning: per Dr. Robles's notes Has multiple comorbid conditions including end-stage renal disease on hemodialysis, cardiomyopathy with EF of 25-30%, abnormal liver function test with increased INR, shortness of breath and requiring oxygen up to 1-2 L to maintain saturation, has been bedbound for a long time especially after right AKA for peripheral vascular disease and ulcer. Detailed discussion was done with her niece yesterday and today We will try more physical therapy and occupational therapy to improve her condition If there is no improvement of her physical condition palliative care consultation should be asked for Discussed with the niece and she is agreeable with it Subjective Follow-up for atrial fibrillation, hypertension Remains in sinus rhythm Remains on Isreal-Synephrine drip Patient seems to be drowsy today, tries to open eyes and answer with words Denies shortness of breath No chest pain review of Systems difficult to perform as patient is drowsy Physical Exam Vital Signs (Past 24 Hours): Last Vital Signs Temp 37 C 11/20/18 16:00 Pulse 71 11/20/18 17:31 Resp 23 11/20/18 17:31 BP 106/65 11/20/18 17:31 Pulse Ox 95 11/20/18 17:31 Physical Exam: General-drowsy not in distress, no effort or accessory muscle use Eyes- anicteric Neck- no JVD Lungs-mild rales at the bases, no wheezing Heart- normal rate, regular rhythm; no murmurs Abdomen- normal bowel sounds, nondistended, soft, nontender Extremities- Right BKA: No discharge or bleeding; mild erythema along the site no pretibial edema, no calf tenderness Neuro- alert, oriented x 3; no gross focal neurologic deficits Skin- warm & dry Results & Data Laboratory Results Laboratory Results - last 24 hr 11/19/18 11/20/18 11/20/18 20:32 04:33 04:34 WBC 9.14 RBC 4.13 L Hgb 10.8 L Hct 36.1 L MCV 87.4 MCH 26.2 MCHC 29.9 L RDW Std Deviation 63.5 H RDW Coeff of Dru 20.2 H Plt Count 401 H MPV 9.8 Immature Gran % (Auto) 0.2 Neut % (Auto) 76.4 Lymph % (Auto) 10.9 [place] % (Auto) 11.6 Eos % (Auto) 0.8 Baso % (Auto) 0.1 Immature Gran # (Auto) 0.02 Neut # (Auto) 6.98 H Lymph # (Auto) 1.00 L [place] # (Auto) 1.06 H Eos # (Auto) 0.07 Baso # (Auto) 0.01 Absolute Nucleated RBC 0.14 H Nucleated RBC % (auto) 1.5 Polychromasia 1+ Anisocytosis Present Ovalocytes 1+ Echinocytes 1+ Sodium 126 L Potassium 4.7 Chloride 93 L Carbon Dioxide 21 Anion Gap 12.0 H BUN 38 H Creatinine 5.23 H* D Est Cr Clr Drug Dosing 16.0 Est GFR ( Amer) 10.2 Est GFR (Non-Af Amer) 8.8 BUN/Creatinine Ratio 7.4 L Glucose 131 H POC Glucose 133 H Lactate Calcium 9.7 Magnesium 2.1 Total Bilirubin 1.4 H Direct Bilirubin 1.1 H AST 50 H ALT 33 Alkaline Phosphatase 126 H Total Protein 7.7 Albumin 1.9 L Lipase 112 Cortisol AM Sample 11/20/18 11/20/18 11/20/18 04:34 06:32 07:53 WBC RBC Hgb Hct MCV MCH MCHC RDW Std Deviation RDW Coeff of Dru Plt Count MPV Immature Gran % (Auto) Neut % (Auto) Lymph % (Auto) [place] % (Auto) Eos % (Auto) Baso % (Auto) Immature Gran # (Auto) Neut # (Auto) Lymph # (Auto) [place] # (Auto) Eos # (Auto) Baso # (Auto) Absolute Nucleated RBC Nucleated RBC % (auto) Polychromasia Anisocytosis Ovalocytes Echinocytes Sodium Potassium Chloride Carbon Dioxide Anion Gap BUN Creatinine Est Cr Clr Drug Dosing Est GFR ( Amer) Est GFR (Non-Af Amer) BUN/Creatinine Ratio Glucose POC Glucose 177 H Lactate 1.9 Calcium Magnesium Total Bilirubin Direct Bilirubin AST ALT Alkaline Phosphatase Total Protein Albumin Lipase Cortisol AM Sample 31.78 H 11/20/18 11/20/18 11:25 16:48 WBC RBC Hgb Hct MCV MCH MCHC RDW Std Deviation RDW Coeff of Dru Plt Count MPV Immature Gran % (Auto) Neut % (Auto) Lymph % (Auto) [place] % (Auto) Eos % (Auto) Baso % (Auto) Immature Gran # (Auto) Neut # (Auto) Lymph # (Auto) [place] # (Auto) Eos # (Auto) Baso # (Auto) Absolute Nucleated RBC Nucleated RBC % (auto) Polychromasia Anisocytosis Ovalocytes Echinocytes Sodium Potassium Chloride Carbon Dioxide Anion Gap BUN Creatinine Est Cr Clr Drug Dosing Est GFR ( Amer) Est GFR (Non-Af Amer) BUN/Creatinine Ratio Glucose POC Glucose 100 H 108 H Lactate Calcium Magnesium Total Bilirubin Direct Bilirubin AST ALT Alkaline Phosphatase Total Protein Albumin Lipase Cortisol AM Sample (1) DM type 2 (diabetes mellitus, type 2) Diabetes mellitus complication detail: with peripheral angiopathy with gangrene Diabetes mellitus complication status: with circulatory complication Diabetes mellitus intermediate accountant insulin use: with retirement use Qualified Code(s): E11.52 - Type 2 diabetes mellitus with diabetic peripheral angiopathy with gangrene; Z79.4 - long-term (current) use of insulin (2) CAD (coronary artery disease) Associated angina: without angina Coronary Disease-Associated Artery/Lesion type: [place] artery [place] vs. transplanted heart: [place] heart Qualified Code(s): I25.10 - Atherosclerotic heart disease of [place] coronary artery without angina pectoris (3) GERD (gastroesophageal reflux disease) Esophagitis presence: without esophagitis Qualified Code(s): K21.9 - Gastro- esophageal reflux disease without esophagitis
[2018-11-20] MEDS: GABAPENTIN 300 MG CAP PO SCH (20:36)
[2018-11-20] MEDS: SERTRALINE HCL 50 MG TABLET PO SCH (20:37)
[2018-11-20] MEDS: PIPERACILLIN/TAZOBACTAM 3.375 GM in DEXTROSE 5% 100 ML IV SCH (20:44)
[2018-11-21] MEDS: PHENYLEPHRINE HCL 40 MG in DEXTROSE 5% 500 ML IV PRN ×2 (03:05→18:48)
[2018-11-21] MEDS: LEVOTHYROXINE SODIUM 50 MCG TABLET PO SCH (04:47)
[2018-11-21] MEDS: HEPARIN SOD 5,000 UNIT/0.5 ML VIAL SQ SCH ×3 (04:47→20:53)
[2018-11-21 05:13] LABS: Hematocrit (blood only) 39.1 % (37-47); Hemoglobin 11.5 g/dL (12.0-16.0); Mean Corpuscular Hgb Conc 29.4 g/dL (32-36); Mean Corpuscular Volume 87.3 fL (80-100); Mean Platelet Volume 10.1 fL (7.4-10.4); Nucleated RBC # (auto) 0.16 K/uL (0-0); Platelet Count 401 K/uL (130-400); RDW Coefficient of Variation 20.1 % (11.5-14.5); RDW Standard Deviation 62.5 fL (36.4-46.3); Red Blood Count 4.48 M/uL (4.2-5.4); White Blood Count 7.83 K/uL (4.8-10.8)
[2018-11-21 06:00] LABS: BUN Creatinine Ratio 8.1 (10-20); Creatinine Clr Calc Pharmacy 14.8 ml/min; Est GFR (African American) 9.2; Est GFR (Non-African American) 7.9; Magnesium 2.3 mg/dl (1.8-2.4); Phosphorus 6.1 mg/dl (2.5-4.9); Potassium 4.7 mmol/L (3.5-5.1)
[2018-11-21] MEDS ORDERED: HEPARIN SOD (PORCINE) 1000 UNIT/ML 10 ML VIAL IV ONE (07:37)
[2018-11-21] MEDS ORDERED: SODIUM CHLORIDE 0.9% 1000ML 1,000 ML IV PRN (07:37)
[2018-11-21] MEDS: SEVELAMER HCL 800 MG TABLET PO SCH ×3 (07:51→18:14)
[2018-11-21] MEDS: PANTOprazole 40 MG TAB PO SCH (07:51)
[2018-11-21] MEDS: MIDODRINE HCL 10 MG TAB PO SCH ×3 (07:51→18:14)
[2018-11-21] MEDS: AMIODARONE 200 MG TAB PO SCH ×2 (07:52→20:51)
[2018-11-21] MEDS: ASPIRIN 81 MG ECTAB PO SCH (07:52)
[2018-11-21] MEDS: NEPHROCAPS PO SCH (07:52)
[2018-11-21] MEDS: NYSTATIN POWDER 15GM BTL EXT SCH ×2 (07:52→20:51)
[2018-11-21] MEDS: LIDOCAINE 5% 1 PATCH TD SCH (07:52)
[2018-11-21] MEDS: CLOPIDOGREL BISULFATE 75 MG TAB PO SCH (07:52)
[2018-11-21] MEDS: PIPERACILLIN/TAZOBACTAM 3.375 GM in DEXTROSE 5% 100 ML IV SCH ×2 (07:53→20:57)
[2018-11-21] MEDS: DOCUSATE SODIUM 100 MG CAP PO SCH ×2 (07:53→20:51)
[2018-11-21] MEDS: INSULIN GLARGINE SOLOSTAR 100 UNITS/ML 3 ML PEN SC SCH ×2 (07:54→20:53)
[2018-11-21] MEDS: INSULIN ASPART 100 UNITS/ML 3 ML PEN SC SCH ×4 (07:54→20:55)
--- NOTE | 2018-11-21 08:58 | Critical Care Progress Note ---
Date of Service November 21, 2018 Assessment & Plan (1) Admitted to intensive care unit: Reason Critically Ill: 52 year-old Female here for hypotension and atrial fibrillation with rapid ventricular response. Past medical history significant for AFIB, MRSA +ve, Anemia, R BKA, ESRD on HD, CAD, Poorly Controlled DMII, Morbid obesity, and current smoker. PLAN: Neuro: CAM ICU negative Awake and Alert Resp: Acute hypoxic respiratory failure Right-sided pleural effusion on yesterday's chest x-ray -Currently Satting 98% on 2L NC; wean O2 as tolerated CV: Hypotension: continues to improve -Wean phenylephrine as tolerated, so far pt has not tolerated Atrial fibrillation with rapid ventricular response spontaneously converted to NSR on November 18 -Continue amiodarone 200 mg BID Fluids/Renal: End-stage renal disease on hemodialysis -Tolerated dialysis on 11/18 with phenylephrine -Next HD will be determined by Nephro Hyponatremia ID: Pt continues to be afebrile monitor fever curve Blood cultures remain negative -Given lack of clinical improvement and prolonged ICU stay trial of empiric zosyn and vanco -No clear source of infection, right leg stump is red and inflamed on the medial portion, possible infection source -pt improving clinically GI/Nutrition: Hepatic insufficiency of unclear etiology -Completed Mucomyst protocol -Compromised MRCP, no evidence of ductal dilatation Patient is eating approximately 1/2 of their meals Heme: Elevated INR -INR 2.2->1.4->1.4->1.4 s/p 2 days of 5 mg IV vitamin K. Anemia of chronic disease DVT prophylaxis: SCDs: Heparin 5000 mg 3 times daily today Endocrine: ICU hyperglycemia protocol -Cosyntropin stim test negative for adrenal insufficiency Vascular access: Right internal jugular central venous catheter triple lumen Code Status: DNR in event of cardiac arrest. Thank you for allowing us to be part of this patient's care. Please refer to Dr. Ballesteros's documentation for any further recommendations. Supervising Physician Co-Signing Physician Notes Patient seen and examined with the resident. I agree with above except as noted below 52 y/o female with ESRD who presented with hypotension from unknown cause. Constitutional: Comfortable NAD HEENT: normocephalic atraumatic. MMM. CV: irregularly irregular nl s1,s2 no murmurs rubs or gallops Lungs: clear to auscultation bilaterally. no accessory muscle use Abd: soft nontender nondistended. Ext: +LE edema. no cyanosis. R BKA Skin: warm dry Neuro: alert and oriented. moving all extremities Psych: flat affect a/p Neuro- awake alert CV- hypotension ?related to chronic renal failure. r/o septic. continue phenylephrine-will try to taper down. afib rate controlled Pulmonary-sat well on NC ID- no clear infection. BKA site red but does not appear clearly infected. cultures remain negative. continue abx since patient has been hypotensive without a clear cause Renal- ESRD -dialysis per renal. hyponatremia GI- diet as tolerated Heme- anemia. heparin proph Endocrine- appropriate response to cosyntropin stim. blood sugars controlled Dispo- continue ICU care for hemodynamic support I have personally spent 35 minutes of critical care time in the direct management of this patient. This is a life/limb threatening event. This includes time spent evaluating patient, direct bedside care, chart review, placing orders, interpretation of diagnostic studies, discussion with consultants, patient, and/or family members regarding treatment decisions, as well as other required patient management activities. This time is exclusive of all separately billable procedures, and teaching time and separate from and in addition to any other critical care service time. Romeo Ballesteros M.D Pulmonary/Critical care medicine Subjective Pt sitting up in bed this morning during my exam. Pt significantly more alert than yesterday. No acute events overnight. Pt endorses no significant pain today. Still only eating about 50 % of her meals, anuric, moving her bowels an dsleeping well. No acute concerns at this time. Physical Exam Vital Signs (Past 24 Hours): Last Vital Signs Temp 36.4 C L 11/21/18 05:01 Pulse 68 11/21/18 06:01 Resp 14 11/21/18 06:01 BP 100/65 11/21/18 06:01 Pulse Ox 98 11/21/18 06:01 Constitutional: + ill appearing, + morbidly obese and + disheveled Eyes: PERRL, conjunctivae normal, anicteric sclerae Neck: trachea midline, no thyromegaly (R Tripple Lumen IJ in place ) normal visual inspection Respiratory: normal respiratory effort, lungs clear to auscultation Cardiovascular: Heart Sounds: normal S1 and normal S2; no murmur (Did not appreciate any murmurs) Extremities: + pedal edema; no calf tenderness Gastrointestinal (Abdomen): normal bowel sounds, soft, nontender, no hepatosplenomegaly Musculoskeletal: RBKA increased redness in medial aspect Neurologic: PERRL, EOMI, accommodation nl, no face palsy, no dysarthria Resident Activity Tracking Resident Involvement: Resident Care Provided Care Provided: Adult Hospital Medicine
--- NOTE | 2018-11-21 09:31 | Nephrology Progress Note ---
Date of Service November 21, 2018 Assessment & Plan (1) ESRD (end stage renal disease) on dialysis: ESRD patient on HD TTS. She tolerated HD on 11/19. She is still volume overload. Next HD today -- still needs pressor and aggressive uf as tolerated -cont BB and midodrine and pressor as needed -no epo or iron needed today - binders also continued when takin gpo reliably -lower sodium noted in esrd pt due in part to vol OL; monitor Present on Admission?: Yes Subjective bp still drops on lower doses of amie; some sob. still w/ diminished MS. denies pain. Physical Exam Vital Signs (Past 24 Hours): Last Vital Signs Temp 36.4 C L 11/21/18 05:01 Pulse 68 11/21/18 06:01 Resp 14 11/21/18 06:01 BP 100/65 11/21/18 06:01 Pulse Ox 98 11/21/18 06:01 Constitutional: well developed, well nourished, + obese, comfortable and + lethargic on o2nc anoriented to self an dplace (barely) Eyes: EOM intact bilaterally eyes closed for most of interview ENMT: Ears: no external ear abnormality Nose: no external nose abnormality Mouth: + dry oral mucous membranes Neck: no nuchal rigidity Respiratory: normal respiratory effort Auscultation: + diminished lung sounds Cardiovascular: Rate/Rhythm: regular rate and regular rhythm Extremities: + edema (trace - 1+ dependent) and + AV fistula (+ t/b) Gastrointestinal (Abdomen): Inspection/Auscultation: normal bowel sounds Percussion/Palpation: abdomen soft; abdomen nontender, no guarding and no fluid wave Musculoskeletal: Extremities: strength 5/5 throughout bka Skin: no rashes, warm and dry Psychiatric: A+Ox3, euthymic affect Results & Data Laboratory Results Abnormal lab results 11/20/18 11/20/18 11/20/18 Range/Units 07:53 11:25 16:48 Hgb (12.0-16.0) g/dL MCHC (32-36) g/dL RDW Std Deviation (36.4-46.3) fL RDW Coeff of Dru (11.5-14.5) % Plt Count (130-400) K/uL Absolute Nucleated RBC (0-0) K/uL Sodium (136-145) mmol/L Chloride (98-107) mmol/L BUN (7-18) mg/dl Creatinine (0.6-1.2) mg/dl BUN/Creatinine Ratio (10-20) POC Glucose 100 H 108 H (70-99) Phosphorus (2.5-4.9) mg/dl Cortisol AM Sample 31.78 H (4.3-22.4) mcg/dl 11/20/18 11/21/18 11/21/18 Range/Units 20:46 04:48 04:48 Hgb 11.5 L (12.0-16.0) g/dL MCHC 29.4 L (32-36) g/dL RDW Std Deviation 62.5 H (36.4-46.3) fL RDW Coeff of Dru 20.1 H (11.5-14.5) % Plt Count 401 H (130-400) K/uL Absolute Nucleated RBC 0.16 H (0-0) K/uL Sodium 125 L (136-145) mmol/L Chloride 91 L (98-107) mmol/L BUN 46 H (7-18) mg/dl Creatinine 5.71 H* D (0.6-1.2) mg/dl BUN/Creatinine Ratio 8.1 L (10-20) POC Glucose 130 H (70-99) Phosphorus 6.1 H (2.5-4.9) mg/dl Cortisol AM Sample (4.3-22.4) mcg/dl
--- NOTE | 2018-11-21 10:22 | Pharmacy Report ---
Pharmacy Abx Dose Short Note - Date of Service November 21, 2018 - Assessment & Plan Assessment * 52 year old F admitted on 11/10 for hypotension. Currently in ICU with persistent hypotension requiring pressure support with phenylephrine. Attempt to wean phenylephrine this AM unsuccessful. However, patient seems more awake/alert as compared to yesterday per RN/ICU rounds * Continue empiric Zosyn and vancomycin for now - also concern for osteomyelitis of finger per discussion at ICU rounds * Chronic HD patient - nephrology following. Last HD session was 11/18. Next HD session scheduled for today. * WBC wnl and afebrile for this admission thus far Vancomycin * Timeline * 11/20 1529: Vancomycin 1750 mg IV x1 * 11/21 0448: Random vancomycin level 22.1 mcg/mL * 11/21 AM: HD session planned * Goal pre-HD vancomycin level 15-20 mcg/mL * Pre-HD level this AM slightly supratherapeutic. Anticipate significant removal during HD session today (~30%). Patient will require a small supplemental HD dose (assuming pressures are able to tolerate a full 3+ hour HD session) Plan * Will determine how long patient tolerates HD today and then may give small 500 mg supplemental vancomycin dose * Repeat random level tomorrow AM Pharmacy will continue to follow and will adjust dose/frequency as necessary. Thank you.
[2018-11-21] MEDS ORDERED: VANCOMYCIN HCL 500 MG in 0.9 % SODIUM CHLORIDE 100 ML IV SCH (14:00)
[2018-11-21] MEDS: HEPARIN SOD (PORCINE) 1000 UNIT/ML 10 ML VIAL IV SCH ×3 (14:45→18:13)
[2018-11-21] MEDS: IRON SUCROSE 100 MG in SYRINGE 0 ML IV SCH (15:32)
[2018-11-21] MEDS: SERTRALINE HCL 50 MG TABLET PO SCH (20:51)
[2018-11-21] MEDS: GABAPENTIN 300 MG CAP PO SCH (20:51)
[2018-11-22 04:59] LABS: Hematocrit (blood only) 36.6 % (37-47); Hemoglobin 10.7 g/dL (12.0-16.0); Mean Corpuscular Hgb Conc 29.2 g/dL (32-36); Mean Corpuscular Volume 86.3 fL (80-100); Mean Platelet Volume 10.3 fL (7.4-10.4); Nucleated RBC # (auto) 0.15 K/uL (0-0); Nucleated RBC % (auto) 2.4 %; Platelet Count 379 K/uL (130-400); RDW Coefficient of Variation 20.3 % (11.5-14.5); RDW Standard Deviation 62.7 fL (36.4-46.3); Red Blood Count 4.24 M/uL (4.2-5.4); White Blood Count 6.08 K/uL (4.8-10.8)
--- NOTE | 2018-11-22 05:11 | Hospitalist Progress Note ---
Date of Service November 22, 2018 delayed entry date of service 11/21/18 Assessment & Plan (1) New onset a-fib: Patient converted to sinus rhythm Transitioned from IV to p.o. amiodarone Wean off [place]-Synephrine accordingly (2) Hypotension: in the setting of A fib in RVR, ICM Blood cultures negative Cosyntropin test performed: negative Empiric vancomycin and Zosyn added, day 2 Continue to wean off of Isreal-Synephrine monitor closely in ICU (3) Hypoxia: secondary to bilateral pleural effusion volume management per Nephro wean off O2 accordingly (4) Elevated troponin: possible NSTEMI Heparin unable to be started due to coagulopathy Cardiology consulted continued on medical therapy (5) CAD (coronary artery disease): (6) Ischemic cardiomyopathy: per Dr. Robles's notes -Troponin on presentation 2.34, EKG does not show acute ST changes -Patient reporting chest pain however seems to be musculoskeletal in nature and not similar to anginal equivalent in the past -History of CAD, S/P KAROLINE to mid circumflex 02/2018 and BMS to circumflex 2015, chronic RCA occlusion -Case discussed with Dr. Venegas who advised initiating heparin drip however unable to at this time due to coagulopathy -Continue cycle cardiac enzymes, check resting echo -Continue aspirin and Plavix; beta-silvia and nitrate as BP allows; holding statin due to elevated LFTs -Denies any cardiac symptoms (7) Abnormal LFTs: per Dr. Robles's notes Likely multifactorial Her ALT was highly elevated in August LFTs are elevated at this time likely secondary to hypoxia/drug- induced/hepatitis/fatty liver with cirrhosis No portal vein thrombosis on ultrasound Appreciate GI input and recommendation She has been on Mucomyst and will finish the course-Mucomyst has been stopped this morning on 11/12 LFTs have been improving Received vitamin K 5 mg orally yesterday LFTs improving and INR is 1.5 today Repeat LFTs shows improvement Ultrasound of the liver did not show any significant cirrhosis and/or fatty infiltration of the liver MRCP-unremarkable, a few gallstones but no obstruction and no biliary ductal dilatation Liver function is improved further Denies any abdominal pain but has nausea and vomited once LFTs remain stable but INR is elevated to 1.9 today 11/18 INR 2.2 given Vit K 5mg monitor 11/20/18 LFTs same Continue to monitor LFTs , INR (8) Coagulopathy: per Dr. Robles's notes: -On admission, patient found to have elevated AST and ALT -Initial INR 1.9 with repeat being 2.6 -No history of hepatic disease in the past -? Shock liver from hypotension yesterday -GI consult, case discussed with Dr. Eduardo who advises obtaining hepatitis panel, CMV, EBV, HSV; trend LFTs and coags; started Mucomyst drip per protocol -Liver ultrasound with portal vein Doppler-negative for any thrombus INR management as noted above (9) History of right below knee amputation: -S/P right BKA on 10/[address] Jones Does not overtly appear to be infected, but vancomycin Zosyn started empirically (10) Anemia associated with chronic renal failure: Hg stable (11) Eschar of finger: -Left second finger -Following with Dr. Pryor -No signs of active infection (12) ESRD (end stage renal disease) on dialysis: HD per Nephro (13) DM type 2 (diabetes mellitus, type 2): -Hgb A1c 7.3 08/2018 -Lantus and NovoLog per protocol while hospitalized (14) GERD (gastroesophageal reflux disease): -Continue PPI (15) DVT prophylaxis: -None needed at this time, INR 2..2 -Received vitamin K and INR is 1.4 (16) Physical deconditioning: will need PT/OT Disposition pending Subjective ff up for hypotension seen resting in bed, comfortable appears weak but more alert than previous day denies dyspnea, chest pain, dizziness still has poor appetite denies pain no other symptoms Physical Exam Vital Signs (Past 24 Hours): Last Vital Signs Temp 36.6 C 11/22/18 04:01 Pulse 64 11/22/18 04:01 Resp 12 11/22/18 04:01 BP 90/61 L 11/22/18 04:01 Pulse Ox 100 11/22/18 04:01 Physical Exam: Physical Exam: General-more alert, appears tire not in distress, no effort or accessory muscle use Eyes- anicteric Neck- no JVD Lungs-mild rales at the bases,butno wheezing Heart- normal rate, regular rhythm; no murmurs Abdomen- normal bowel sounds, nondistended, soft, nontender Extremities- Right BKA: No discharge or bleeding; mild erythema along the site, no warmth, petra in place no pretibial edema, no calf tenderness Neuro- alert, oriented x 3; no gross focal neurologic deficits Skin- warm & dry Results & Data Laboratory Results noted, reviewed (1) CAD (coronary artery disease) Coronary Disease-Associated Artery/Lesion type: [place] artery [place] vs. 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
[2018-11-22 05:23] LABS: BUN Creatinine Ratio 6.4 (10-20); Calcium 9.2 mg/dl (8.5-10.1); Creatinine Clr Calc Pharmacy 19.5 ml/min; Est GFR (African American) 12.8; Phosphorus 4.4 mg/dl (2.5-4.9)
[2018-11-22] MEDS: HEPARIN SOD 5,000 UNIT/0.5 ML VIAL SQ SCH ×3 (06:18→22:52)
[2018-11-22] MEDS: LEVOTHYROXINE SODIUM 50 MCG TABLET PO SCH (06:18)
--- NOTE | 2018-11-22 08:18 | Critical Care Progress Note ---
Date of Service November 22, 2018 Assessment & Plan (1) Admitted to intensive care unit: Reason Critically Ill: 52 year-old Female here for hypotension and atrial fibrillation with rapid ventricular response. Past medical history significant for AFIB, MRSA +ve, Anemia, R BKA, ESRD on HD, CAD, Poorly Controlled DMII, Morbid obesity, and current smoker. PLAN: Neuro: CAM ICU Positive responds to tactile stimulation and conversation than falls back asleep Resp: Acute hypoxic respiratory failure Right-sided pleural effusion on 11/20 chest x-ray -Currently Satting 100% on 2L NC; wean O2 as tolerated CV: Hypotension: continues to improve -Wean phenylephrine as tolerated, so far pt has not tolerated -Midodrine Atrial fibrillation with rapid ventricular response spontaneously converted to NSR on November 18 -Continue amiodarone 200 mg BID Fluids/Renal: End-stage renal disease on hemodialysis -Tolerated dialysis on 11/18 with phenylephrine -Next HD will be determined by Nephro Hyponatremia improving ID: Pt continues to be afebrile monitor fever curve Blood cultures remain negative -Continue Vac Zosyn, BKA stump appears less red and hypotension continue to improve -pt improving clinically GI/Nutrition: Patient is eating approximately 1/2 of their meals Heme: Elevated INR -INR 2.2->1.4s/p 2 days of 5 mg IV vitamin K. Anemia of chronic disease DVT prophylaxis: SCDs: Heparin 5000 mg 3 times daily today Endocrine: ICU hyperglycemia protocol -Cosyntropin stim test negative for adrenal insufficiency Vascular access: Right internal jugular central venous catheter triple lumen Code Status: DNR in event of cardiac arrest. Dispo continue Icu Care for hypotension Thank you for allowing us to be part of this patient's care. Please refer to Dr. Ballesteros's documentation for any further recommendations. Supervising Physician Co-Signing Physician Notes Patient seen and examined with the resident. I agree with above except as noted below 52 y/o female with ESRD who presented with hypotension from unknown cause. Constitutional: Comfortable NAD HEENT: normocephalic atraumatic. MMM. CV: irregularly irregular nl s1,s2 no murmurs rubs or gallops Lungs: clear to auscultation bilaterally. no accessory muscle use Abd: soft nontender nondistended. Ext: +LE edema. no cyanosis. R BKA Skin: warm dry Neuro: more lethargic this morning. moving all extremities Psych: flat affect a/p Neuro- waxing and waning mental status CV- hypotension ?related to chronic renal failure. r/o septic. will change from phenylephrine to norepineprine. will increase midodrine to q6 afib rate controlled Pulmonary-sat well on NC ID- no clear infection. BKA site red but does not appear clearly infected. cultures remain negative. continue abx since patient has been hypotensive without a clear cause Renal- ESRD -dialysis per renal. hyponatremia GI- diet as tolerated Heme- anemia. heparin proph Endocrine- appropriate response to cosyntropin stim. blood sugars controlled Dispo- continue ICU care for hemodynamic support I have personally spent 30 minutes of critical care time in the direct management of this patient. This is a life/limb threatening event. This includes time spent evaluating patient, direct bedside care, chart review, placing orders, interpretation of diagnostic studies, discussion with consultants, patient, and/or family members regarding treatment decisions, as well as other required patient management activities. This time is exclusive of all separately billable procedures, and teaching time and separate from and in addition to any other critical care service time. Romeo Ballesteros M.D Pulmonary/Critical care medicine Subjective Pt sleeping in bed this morning in no acute distress. Per report she did well overnight. This morning she is more somnolent than yesterday. Per her daughter this is how she usually acts on the day after dialysis. She responds is arousable however when not engaged she falls right back asleep. Will continue to Monitor throughout the day Physical Exam Vital Signs (Past 24 Hours): Last Vital Signs Temp 36.6 C 11/22/18 04:01 Pulse 64 11/22/18 04:01 Resp 12 11/22/18 04:01 BP 90/61 L 11/22/18 04:01 Pulse Ox 100 11/22/18 04:01 Constitutional: + ill appearing, + morbidly obese and + disheveled Eyes: PERRL, conjunctivae normal, anicteric sclerae Neck: trachea midline, no thyromegaly (R Tripple Lumen IJ in place ) normal visual inspection Respiratory: normal respiratory effort, lungs clear to auscultation Cardiovascular: Rate/Rhythm: + abnormal rhythm (Irregularly Irregular ) Heart Sounds: normal S1 and normal S2; no murmur (Did not appreciate any murmurs) Extremities: + pedal edema; no calf tenderness Gastrointestinal (Abdomen): normal bowel sounds, soft, nontender, no hepatosplenomegaly Musculoskeletal: Right BKA: looks better than it has all week, less red, appears to be healing well Skin: Eschar left hand first finger, clots left ring finger, left toe looks better heel ulcer on left foot. Extremities cool to touch Neurologic: PERRL, EOMI, accommodation nl, no face palsy, no dysarthria Results & Data Laboratory Results 11/22/18 04:42 11/22/18 04:42 11/22/18 11/22/18 11/22/18 Range/Units 07:42 04:42 04:42 WBC (4.8-10.8) K/uL RBC (4.2-5.4) M/uL Hgb (12.0-16.0) g/dL Hct (37-47) % MCV (80-100) fL MCH (25-34) pg MCHC (32-36) g/dL RDW Std Deviation (36.4-46.3) fL RDW Coeff of Dru (11.5-14.5) % Plt Count (130-400) K/uL MPV (7.4-10.4) fL Absolute Nucleated RBC (0-0) K/uL Nucleated RBC % (auto) % Sodium 130 L (136-145) mmol/L Potassium 4.0 (3.5-5.1) mmol/L Chloride 94 L (98-107) mmol/L Carbon Dioxide 27 (21-32) mmol/L Anion Gap 9.0 (3-11) BUN 28 H (7-18) mg/dl Creatinine 4.35 H D (0.6-1.2) mg/dl Est Cr Clr Drug Dosing 19.5 ml/min Est GFR ( Amer) 12.8 Est GFR (Non-Af Amer) 11.0 BUN/Creatinine Ratio 6.4 L (10-20) Glucose 74 (70-99) mg/dl POC Glucose 74 (70-99) Calcium 9.2 (8.5-10.1) mg/dl Phosphorus 4.4 D (2.5-4.9) mg/dl Magnesium 2.0 (1.8-2.4) mg/dl Random Vancomycin 22.1 mcg/ml 11/22/18 11/21/18 11/21/18 Range/Units 04:42 20:48 17:00 WBC 6.08 (4.8-10.8) K/uL RBC 4.24 (4.2-5.4) M/uL Hgb 10.7 L (12.0-16.0) g/dL Hct 36.6 L (37-47) % MCV 86.3 (80-100) fL MCH 25.2 (25-34) pg MCHC 29.2 L (32-36) g/dL RDW Std Deviation 62.7 H (36.4-46.3) fL RDW Coeff of Dru 20.3 H (11.5-14.5) % Plt Count 379 (130-400) K/uL MPV 10.3 (7.4-10.4) fL Absolute Nucleated RBC 0.15 H (0-0) K/uL Nucleated RBC % (auto) 2.4 % Sodium (136-145) mmol/L Potassium (3.5-5.1) mmol/L Chloride (98-107) mmol/L Carbon Dioxide (21-32) mmol/L Anion Gap (3-11) BUN (7-18) mg/dl Creatinine (0.6-1.2) mg/dl Est Cr Clr Drug Dosing ml/min Est GFR ( Amer) Est GFR (Non-Af Amer) BUN/Creatinine Ratio (10-20) Glucose (70-99) mg/dl POC Glucose 73 78 (70-99) Calcium (8.5-10.1) mg/dl Phosphorus (2.5-4.9) mg/dl Magnesium (1.8-2.4) mg/dl Random Vancomycin mcg/ml 11/21/18 Range/Units 12:02 WBC (4.8-10.8) K/uL RBC (4.2-5.4) M/uL Hgb (12.0-16.0) g/dL Hct (37-47) % MCV (80-100) fL MCH (25-34) pg MCHC (32-36) g/dL RDW Std Deviation (36.4-46.3) fL RDW Coeff of Dru (11.5-14.5) % Plt Count (130-400) K/uL MPV (7.4-10.4) fL Absolute Nucleated RBC (0-0) K/uL Nucleated RBC % (auto) % Sodium (136-145) mmol/L Potassium (3.5-5.1) mmol/L Chloride (98-107) mmol/L Carbon Dioxide (21-32) mmol/L Anion Gap (3-11) BUN (7-18) mg/dl Creatinine (0.6-1.2) mg/dl Est Cr Clr Drug Dosing ml/min Est GFR ( Amer) Est GFR (Non-Af Amer) BUN/Creatinine Ratio (10-20) Glucose (70-99) mg/dl POC Glucose 98 (70-99) Calcium (8.5-10.1) mg/dl Phosphorus (2.5-4.9) mg/dl Magnesium (1.8-2.4) mg/dl Random Vancomycin mcg/ml Medications Administered Current Inpatient Medications Amiodarone HCl (Cordarone) 200 mg PO BID [facility] Stop: 12/19/18 08:59 Last Admin: 11/22/18 08:39 Dose: 200 mg Documented by: Aspirin (Ecotrin Ectab) 81 mg PO QAM [facility] Stop: 12/11/18 08:59 Last Admin: 11/22/18 08:40 Dose: 81 mg Documented by: Clopidogrel Bisulfate (Plavix) 75 mg PO QAM [facility] Stop: 12/11/18 08:59 Last Admin: 11/22/18 08:39 Dose: 75 mg Documented by: Dextrose (Dextrose 50%) 25 - 50 ml IV UD PRN; Protocol PRN Reason: Hypoglycemia Protocol Stop: 12/10/18 16:09 Docusate Sodium (Colace) 100 mg PO BID [facility] Stop: 12/10/18 20:59 Last Admin: 11/22/18 08:39 Dose: 100 mg Documented by: Gabapentin (Neurontin) 300 mg PO HS [facility] Stop: 12/10/18 20:59 Last Admin: 11/21/18 20:51 Dose: 300 mg Documented by: Glucagon (Glucagen) 1 mg SQ UD PRN; Protocol PRN Reason: Hypoglycemia Protocol Stop: 12/10/18 16:09 Glucose (Glucose 40%) 15 - 30 gm PO UD PRN; Protocol PRN Reason: Hypoglycemia Protocol Stop: 12/10/18 16:09 Glucose (Dex4 Glucose) 4 - 8 tabs PO UD PRN; Protocol PRN Reason: Hypoglycemia Protocol Stop: 12/10/18 16:09 Heparin Sodium (Beef Lung) (Heparin Sod 10 Unit/Ml Flush) 5 ml FLUSH PRN PRN PRN Reason: Flush Stop: 12/19/18 00:05 Heparin Sodium (Porcine) (Heparin Sodium (Porcine)) 5,000 units SQ Q8 [facility]AN Stop: 12/19/18 13:59 Last Admin: 11/22/18 06:18 Dose: 5,000 units Documented by: Iron Sucrose 100 mg/ Syringe 5 mls @ 1 mls/min IV TuThSa@0600 [facility] Stop: 12/11/18 05:59 Last Admin: 11/21/18 15:32 Dose: 1 mls/min Documented by: Phenylephrine HCl 40 mg/ (Dextrose) 504 mls @ 44.14 mls/hr IV .[id number] PRN; Protocol PRN Reason: Blood Pressure - Low Stop: 12/20/18 08:50 Last Titration: 11/22/18 09:05 Dose: Infused Documented by: Piperacillin Sod/Tazobactam (Sod 3.375 gm/ Dextrose) 115 mls @ 28.75 mls/hr IV Q12H [facility]; Protocol Stop: 11/22/18 13:59 Last Admin: 11/22/18 09:04 Dose: 28.8 mls/hr Documented by: Norepinephrine Bitartrate 8 mg (/ Dextrose) 508 mls @ 42.71 mls/hr IV .[id number] [facility]; Protocol Stop: 12/22/18 08:44 Last Admin: 11/22/18 09:06 Dose: 0.1 mcg/kg/min, 42.7 mls/hr Documented by: Insulin Aspart (Novolog Flexpen) 0 units SC ACHS [facility] Stop: 12/10/18 16:29 Last Admin: 11/22/18 08:41 Dose: Not Given Documented by: Insulin Glargine (Lantus Solostar Pen) 5 units SC Q12 [facility]AN Stop: 12/10/18 16:59 Last Admin: 11/22/18 08:39 Dose: Not Given Documented by: Levalbuterol HCl (Xopenex 0.63 Mg/3 Ml Neb) 0.63 mg NEB Q4H PRN PRN Reason: Shortness Of Breath Or Wheezin Stop: 12/14/18 20:57 Last Admin: 11/14/18 22:13 Dose: 0.63 mg Documented by: Levothyroxine Sodium (Synthroid) 50 mcg PO DAILYBB [facility] Stop: 12/11/18 06:29 Last Admin: 11/22/18 06:18 Dose: 50 mcg Documented by: Lidocaine (Lidoderm 5%) 1 patch TD QAM [facility] Stop: 12/11/18 08:59 Last Admin: 11/22/18 08:58 Dose: Not Given Documented by: Magnesium Hydroxide (Milk Of Magnesia) 30 ml PO DAILY PRN PRN Reason: Constipation Stop: 12/10/18 16:00 Meclizine HCl (Antivert) 25 mg PO TID PRN PRN Reason: Dizziness Stop: 12/10/18 16:00 Miconazole Nitrate (Desenex) 1 appln EXT PRN PRN PRN Reason: Affected Skin Folds Stop: 12/17/18 10:49 Midodrine (Proamatine) 10 mg PO TID@0700,1200,1700 [facility] Stop: 11/22/18 10:00 Last Admin: 11/22/18 08:38 Dose: 10 mg Documented by: Midodrine (Proamatine) 10 mg PO 0700,1100,1500,1900 [facility] Stop: 12/22/18 10:59 Miscellaneous (Order Awaiting Action) 1 ea N/A QS [facility] Stop: 12/11/18 00:00 Last Admin: 11/22/18 00:24 Dose: Not Given Documented by: Miscellaneous (Remove Lidoderm Patch) 1 ea N/A DAILY@2100 [facility] Stop: 12/10/18 20:59 Last Admin: 11/21/18 22:22 Dose: 1 ea Documented by: Miscellaneous (Carbohydrates For Hypoglycemia) 15 - 30 gm PO UD PRN PRN Reason: Hypoglycemia Treatment Stop: 12/10/18 16:09 Miscellaneous Information (Consult) 1 ea N/A UD PRN PRN Reason: Consult Stop: 12/20/18 13:04 Miscellaneous Information (Consult) 1 ea N/A UD PRN PRN Reason: Consult Stop: 12/20/18 13:04 Nystatin (Mycostatin) 1 appln EXT BID [facility] Stop: 12/10/18 20:59 Last Admin: 11/22/18 08:42 Dose: 1 appln Documented by: Ondansetron HCl (Zofran) 4 mg PO QID PRN PRN Reason: Nausea Stop: 12/10/18 16:00 Last Admin: 11/16/18 22:05 Dose: 4 mg Documented by: Oxycodone HCl (Roxicodone Immediate Rel) 5 mg PO Q6H PRN PRN Reason: Pain Stop: 12/04/18 08:55 Pantoprazole Sodium (Protonix) 40 mg PO QAM [facility] Stop: 12/11/18 08:59 Last Admin: 11/22/18 08:39 Dose: 40 mg Documented by: Polyethylene Glycol (Miralax Powder Packet) 17 gm PO QDL PRN PRN Reason: Constipation Stop: 12/10/18 16:00 Senna/Docusate Sodium (Senokot S) 1 tab PO QDL PRN PRN Reason: Constipation Stop: 12/10/18 16:00 Sertraline HCl (Zoloft) 25 mg PO TODAY@2100 [facility] Stop: 12/15/18 20:59 Last Admin: 11/21/18 20:51 Dose: 25 mg Documented by: Sevelamer HCl (Renagel) 3,200 mg PO TIDM [facility] Stop: 12/10/18 16:59 Last Admin: 11/22/18 08:38 Dose: 3,200 mg Documented by: Vitamin B Complex/Folic Acid (Nephrocaps) 1 cap PO QAM [facility] Stop: 12/11/18 08:59 Last Admin: 11/22/18 08:39 Dose: 1 cap Documented by: Resident Activity Tracking Resident Involvement: Resident Care Provided Care Provided: Adult Hospital Medicine
[2018-11-22] MEDS: SEVELAMER HCL 800 MG TABLET PO SCH ×3 (08:38→16:54)
[2018-11-22] MEDS: MIDODRINE HCL 10 MG TAB PO SCH ×4 (08:38→20:18)
[2018-11-22] MEDS: PANTOprazole 40 MG TAB PO SCH (08:39)
[2018-11-22] MEDS: INSULIN GLARGINE SOLOSTAR 100 UNITS/ML 3 ML PEN SC SCH ×2 (08:39→20:28)
[2018-11-22] MEDS: AMIODARONE 200 MG TAB PO SCH ×2 (08:39→20:14)
[2018-11-22] MEDS: CLOPIDOGREL BISULFATE 75 MG TAB PO SCH (08:39)
[2018-11-22] MEDS: DOCUSATE SODIUM 100 MG CAP PO SCH ×2 (08:39→20:14)
[2018-11-22] MEDS: NEPHROCAPS PO SCH (08:39)
[2018-11-22] MEDS: ASPIRIN 81 MG ECTAB PO SCH (08:40)
[2018-11-22] MEDS: INSULIN ASPART 100 UNITS/ML 3 ML PEN SC SCH ×4 (08:41→20:28)
[2018-11-22] MEDS: NYSTATIN POWDER 15GM BTL EXT SCH ×2 (08:42→20:15)
[2018-11-22] MEDS: LIDOCAINE 5% 1 PATCH TD SCH (08:58)
[2018-11-22] MEDS: PIPERACILLIN/TAZOBACTAM 3.375 GM in DEXTROSE 5% 100 ML IV SCH ×2 (09:04→20:21)
[2018-11-22] MEDS: NOREPINEPHRINE BIT INJ 8 MG in DEXTROSE 5% 500 ML IV SCH (09:06)
--- NOTE | 2018-11-22 11:19 | Pharmacy Report ---
Pharmacy Abx Dose Short Note - Date of Service November 22, 2018 - Assessment & Plan Assessment * 52 year old F admitted on 11/10 for hypotension and Afib w RVR. Currently in ICU with persistent hypotension requiring pressure support with phenylephrine. Attempts to wean phenylephrine unsuccessful thus far. * Continue empiric Zosyn and vancomycin for now - verbal order per ICU rounds/fisherman helper Dr. Ballesteros for 5 days of both antibiotics (stop dates adjusted) * Chronic HD patient - nephrology following. Last HD session was yesterday. Vancomycin * Timeline * 11/20 1529: Vancomycin 1750 mg IV x1 * 11/21 0448: Random vancomycin level 22.1 mcg/mL * 11/21 174: Completed 4 hr HD session * 11/21 181: Vancomycin 500 mg IV x1 * 11/22 044: Random vancomycin level 22.1 mcg/mL * Goal pre-HD vancomycin level 15-20 mcg/mL * Level remained stable from yesterday to today, after patient received a 500 mg dose of vancomycin after a 4 hour HD session. * Will order a repeat random level tomorrow AM to better assess patient specific *non-HD* clearance Plan * No additional vancomycin needed today * Repeat random level tomorrow AM Pharmacy will continue to follow and will adjust dose/frequency as necessary. Thank you.
--- NOTE | 2018-11-22 15:49 | Hospitalist Progress Note ---
Date of Service November 22, 2018 Assessment & Plan (1) New onset a-fib: Patient converted to sinus rhythm Transitioned from IV to p.o. amiodarone Rate is controlled with oral amiodarone (2) Hypotension: in the setting of A fib in RVR, ICM Cosyntropin test performed: negative Empiric vancomycin and Zosyn added, day 3 for possible infection Appreciate nail kegger input and recommended Has been on intravenous pressors and not been able to wean off Will remain in ICU for now (3) Hypoxia: secondary to bilateral pleural effusion volume management per Nephro wean off O2 accordingly (4) Elevated troponin: possible NSTEMI Heparin unable to be started due to coagulopathy Cardiology consulted continued on medical therapy (5) CAD (coronary artery disease): (6) Ischemic cardiomyopathy: per Dr. Robles's notes -Troponin on presentation 2.34, EKG does not show acute ST changes -Patient reporting chest pain however seems to be musculoskeletal in nature and not similar to anginal equivalent in the past -History of CAD, S/P KAROLINE to mid circumflex 02/2018 and BMS to circumflex 2015, chronic RCA occlusion -Case discussed with Dr. Venegas who advised initiating heparin drip however unable to at this time due to coagulopathy -Continue cycle cardiac enzymes, check resting echo -Continue aspirin and Plavix; beta-silvia and nitrate as BP allows; holding statin due to elevated LFTs -Heart rate remains stable (7) Abnormal LFTs: per Dr. Robles's notes Likely multifactorial Her ALT was highly elevated in August LFTs are elevated at this time likely secondary to hypoxia/drug- induced/hepatitis/fatty liver with cirrhosis No portal vein thrombosis on ultrasound Appreciate GI input and recommendation She has been on Mucomyst and will finish the course-Mucomyst has been stopped this morning on 11/12 LFTs have been improving Received vitamin K 5 mg orally yesterday LFTs improving and INR is 1.5 today Repeat LFTs shows improvement Ultrasound of the liver did not show any significant cirrhosis and/or fatty infiltration of the liver MRCP-unremarkable, a few gallstones but no obstruction and no biliary ductal dilatation Liver function is improved further Denies any abdominal pain but has nausea and vomited once LFTs remain stable but INR is elevated to 1.9 today Will need to have vitamin K if INR goes high (8) Coagulopathy: per Dr. Robles's notes: -On admission, patient found to have elevated AST and ALT -Initial INR 1.9 with repeat being 2.6 -No history of hepatic disease in the past -? Shock liver from hypotension yesterday -GI consult, case discussed with Dr. Eduardo who advises obtaining hepatitis panel, CMV, EBV, HSV; trend LFTs and coags; started Mucomyst drip per protocol -Liver ultrasound with portal vein Doppler-negative for any thrombus INR management as noted above Will give vitamin K if INR remains high (9) History of right below knee amputation: -S/P right BKA on 10/[address] Jones Does not overtly appear to be infected, but vancomycin Zosyn started empirically Complains some pain at the stump but no obvious infection (10) Anemia associated with chronic renal failure: Hg stable (11) Eschar of finger: -Left second finger -Following with Dr. Pryor -No signs of active infection (12) ESRD (end stage renal disease) on dialysis: HD per Nephro Continue hemodialysis (13) DM type 2 (diabetes mellitus, type 2): -Hgb A1c 7.3 08/2018 -Lantus and NovoLog per protocol while hospitalized (14) GERD (gastroesophageal reflux disease): -Continue PPI (15) DVT prophylaxis: -None needed at this time, INR 2..2 -Received vitamin K and INR is 1.4 (16) Physical deconditioning: will need PT/OT Disposition pending We will discuss with Arina If there is no improvement we will get palliative care involved Subjective 11/22 Patient was seen and examined in ICU She was transferred to ICU with hypotension and A. fib with RVR Has been on pressors since transfer Heart rate remains controlled with amiodarone Remains very weak and lethargy Physical Exam Vital Signs (Past 24 Hours): Last Vital Signs Temp 36.7 C 11/22/18 08:01 Pulse 79 11/22/18 09:47 Resp 25 H 11/22/18 09:47 BP 128/78 11/22/18 09:47 Pulse Ox 85 L 11/22/18 09:47 Physical Exam: Pale looking with moderate shortness of breath at rest. Constitutional: WD/WN, vitals as above well developed, + acute distress (Shortness of breath), + ill appearing and + obese Eyes: PERRL, conjunctivae normal, anicteric sclerae ENMT: external ear and nose normal, oropharynx normal Respiratory: + respiratory distress (Mild to moderate at rest) and + uses accessory muscles Auscultation: + diminished lung sounds and + crackles (Minimal crackles at the bases) Cardiovascular: Rate/Rhythm: regular rate and regular rhythm Vessels: normal peripheral pulses Extremities: no edema Gastrointestinal (Abdomen): Inspection/Auscultation: + abdomen distended and normal bowel sounds Percussion/Palpation: + abdomen tender (Mildly tender in the epigastrium) and abdomen soft Musculoskeletal: no cyanosis or clubbing, extremities motor strength 5/5 Extremities: + lower leg abnormality (Right AKA) Skin: no rashes, warm and dry Neurologic: PERRL, EOMI, accommodation nl, no face palsy, no dysarthria awake and + confused Motor/Sensory: + tremor (Occasional tremor of the upper extremities) Psychiatric: A+Ox3, euthymic affect (1) CAD (coronary artery disease) Coronary Disease-Associated Artery/Lesion type: [place] artery [place] vs. transplanted heart: [place] heart Associated angina: without angina Qualified Code(s): I25.10 - Atherosclerotic heart disease of [place] coronary artery without angina pectoris (2) DM type 2 (diabetes mellitus, type 2) Diabetes mellitus correction insulin use: with pest control service technician use Diabetes mellitus complication status: with circulatory complication Diabetes mellitus complication detail: with peripheral angiopathy with gangrene Qualified Code(s): E11.52 - Type 2 diabetes mellitus with diabetic peripheral angiopathy with gangrene; Z79.4 - shelter (current) use of insulin (3) GERD (gastroesophageal reflux disease) Esophagitis presence: without esophagitis Qualified Code(s): K21.9 - Gastro- esophageal reflux disease without esophagitis
[2018-11-22] MEDS: GABAPENTIN 300 MG CAP PO SCH (20:15)
[2018-11-22] MEDS: SERTRALINE HCL 50 MG TABLET PO SCH (20:16)
[2018-11-23 04:23] LABS: Hematocrit (blood only) 35.1 % (37-47); Hemoglobin 10.4 g/dL (12.0-16.0); Mean Corpuscular Hgb Conc 29.6 g/dL (32-36); Mean Corpuscular Volume 85.4 fL (80-100); Nucleated RBC # (auto) 0.05 K/uL (0-0); Nucleated RBC % (auto) 0.9 %; Platelet Count 362 K/uL (130-400); RDW Coefficient of Variation 20.5 % (11.5-14.5); RDW Standard Deviation 62.2 fL (36.4-46.3); Red Blood Count 4.11 M/uL (4.2-5.4); White Blood Count 5.34 K/uL (4.8-10.8)
[2018-11-23 05:01] LABS: BUN Creatinine Ratio 7.1 (10-20); Calcium 9.3 mg/dl (8.5-10.1); Creatinine Clr Calc Pharmacy 17.3 ml/min; Est GFR (African American) 11.1; Est GFR (Non-African American) 9.6; Magnesium 2.1 mg/dl (1.8-2.4); Phosphorus 4.3 mg/dl (2.5-4.9); Potassium 4.2 mmol/L (3.5-5.1)
[2018-11-23] MEDS: HEPARIN SOD 5,000 UNIT/0.5 ML VIAL SQ SCH ×3 (05:51→21:23)
[2018-11-23] MEDS: LEVOTHYROXINE SODIUM 50 MCG TABLET PO SCH (05:52)
[2018-11-23] MEDS ORDERED: SODIUM CHLORIDE 0.9% 1000ML 1,000 ML IV PRN ×3 (07:17→08:16)
--- NOTE | 2018-11-23 07:17 | Nephrology Progress Note ---
Date of Service November 23, 2018 Assessment & Plan (1) ESRD (end stage renal disease) on dialysis: ESRD patient on HD TTS. She tolerated HD on 4/2 w/ 2.8L off. She is still volume overload. Next HD today -- still needs pressor and aggressive uf as tolerated -cont BB and midodrine and pressor as needed -based on today's iron studies >> 50 mg venofer w/ HD -low dose epo today -binders also continued when taking po reliably -lower sodium noted in esrd pt due in part to vol OL; monitor -note that consideration ongoing to involve palliative care and will follow Subjective eating some breakfast today and more awake/ alert >> however vomiting/ spitting up food and some blood; cancelled heparin w/ HD; pt denies sob or chest pain/ pressure. + genearlized weakness; no current musculoskeletal pain; remains on amie at 0.03 Physical Exam Vital Signs (Past 24 Hours): Last Vital Signs Temp 36.8 C 11/23/18 04:00 Pulse 72 11/23/18 06:00 Resp 20 11/23/18 06:00 BP 106/52 L 11/23/18 06:00 Pulse Ox 97 11/23/18 06:00 Constitutional: well developed, well nourished and + obese tired, A& 0 x 3, coughing/spitting up blood as above Eyes: EOM intact bilaterally ENMT: Ears: no external ear abnormality Nose: no external nose abnormality Mouth: + dry oral mucous membranes Neck: no nuchal rigidity Respiratory: normal respiratory effort Auscultation: + diminished lung sounds Cardiovascular: Rate/Rhythm: regular rate and regular rhythm Extremities: + edema (trace - 1+ dependent) and + AV fistula (+ t/b) Gastrointestinal (Abdomen): Inspection/Auscultation: normal bowel sounds Percussion/Palpation: abdomen soft; abdomen nontender, no guarding and no fluid wave Musculoskeletal: Extremities: strength 5/5 throughout Skin: no rashes, warm and dry Neurologic: stein, fluent though limited speech Psychiatric: Orientation: alert, oriented x 3 and cooperative Affect: + flat affect Results & Data Laboratory Results Abnormal lab results 11/22/18 11/23/18 11/23/18 Range/Units 11:25 03:53 03:53 RBC 4.11 L (4.2-5.4) M/uL Hgb 10.4 L (12.0-16.0) g/dL Hct 35.1 L (37-47) % MCHC 29.6 L (32-36) g/dL RDW Std Deviation 62.2 H (36.4-46.3) fL RDW Coeff of Dru 20.5 H (11.5-14.5) % Absolute Nucleated RBC 0.05 H (0-0) K/uL Sodium 128 L (136-145) mmol/L Chloride 93 L (98-107) mmol/L Anion Gap 12.0 H (3-11) BUN 36 H (7-18) mg/dl Creatinine 4.89 H* D (0.6-1.2) mg/dl BUN/Creatinine Ratio 7.1 L (10-20) POC Glucose 114 H (70-99)
[2018-11-23] MEDS: PANTOprazole 40 MG TAB PO SCH (07:33)
[2018-11-23] MEDS: DOCUSATE SODIUM 100 MG CAP PO SCH ×2 (07:34→21:19)
[2018-11-23] MEDS: MIDODRINE HCL 10 MG TAB PO SCH ×4 (07:34→19:48)
[2018-11-23] MEDS: SEVELAMER HCL 800 MG TABLET PO SCH ×3 (07:34→17:15)
[2018-11-23] MEDS: NEPHROCAPS PO SCH (07:34)
[2018-11-23] MEDS: ASPIRIN 81 MG ECTAB PO SCH (07:34)
[2018-11-23] MEDS: AMIODARONE 200 MG TAB PO SCH ×2 (07:34→21:19)
[2018-11-23] MEDS: CLOPIDOGREL BISULFATE 75 MG TAB PO SCH (07:34)
[2018-11-23] MEDS: INSULIN GLARGINE SOLOSTAR 100 UNITS/ML 3 ML PEN SC SCH ×2 (07:35→21:17)
[2018-11-23] MEDS: NYSTATIN POWDER 15GM BTL EXT SCH ×2 (07:36→21:19)
[2018-11-23] MEDS: LIDOCAINE 5% 1 PATCH TD SCH (07:36)
[2018-11-23] MEDS ORDERED: EPOETIN ALFA 4,000 UNIT/ML VIAL IV SCH (08:00)
[2018-11-23] MEDS: PIPERACILLIN/TAZOBACTAM 3.375 GM in DEXTROSE 5% 100 ML IV SCH ×2 (08:00→19:48)
[2018-11-23] MEDS ORDERED: HEPARIN SOD (PORCINE) 1000 UNIT/ML 10 ML VIAL IV SCH ×2 (08:00)
[2018-11-23] MEDS: INSULIN ASPART 100 UNITS/ML 3 ML PEN SC SCH ×4 (08:03→21:18)
--- NOTE | 2018-11-23 08:04 | Critical Care Progress Note ---
Date of Service November 23, 2018 Assessment & Plan (1) Admitted to intensive care unit: Reason Critically Ill: 52 year-old Female here for hypotension and atrial fibrillation with rapid ventricular response. Past medical history significant for AFIB, MRSA +ve, Anemia, R BKA, ESRD on HD, CAD, Poorly Controlled DMII, Morbid obesity, and current smoker. PLAN: Neuro: CAM ICU Positive more alert and orientated today Resp: Acute hypoxic respiratory failure Right-sided pleural effusion on 11/20 chest x-ray -Satting 100% on 2L NC; wean O2 as tolerated CV: Hypotension: continues to improve -Phenylephrine 40 mg wean as tolerated -Midodrine 10 mg 0700,1100,1500,1900 Atrial fibrillation with rapid ventricular response spontaneously converted to NSR on November 18 -Continue amiodarone 200 mg BID Fluids/Renal: End-stage renal disease on hemodialysis -S/p dialysis on 11/18 with phenylephrine -Next HD will be determined by Nephro Hyponatremia improving ID: Pt continues to be afebrile monitor fever curve Blood cultures remain negative -Continue Vac Zosyn, BKA stump appears less red and hypotension continue to improve -pt improving clinically BKA Stump clean dry and intact GI/Nutrition: Patient is eating approximately 1/2 of their meals Diet as tolerated Heme: Elevated INR (resolved) -INR 2.2->1.4s/p 2 days of 5 mg IV vitamin K. Anemia of chronic disease DVT prophylaxis: SCDs: Heparin 5000 mg 3 times daily today Endocrine: ICU hyperglycemia protocol -Cosyntropin stim test negative for adrenal insufficiency Vascular access: Right internal jugular central venous catheter triple lumen Code Status: DNR in event of cardiac arrest. Dispo: continue Icu Care for hypotension Thank you for allowing us to be part of this patient's care. Please refer to Dr. Ballesteros's documentation for any further recommendations. Supervising Physician Co-Signing Physician Notes Patient seen and examined with the resident. I agree with above except as noted below 52 y/o female with ESRD who presented with hypotension from unknown cause. Constitutional: Comfortable NAD HEENT: normocephalic atraumatic. MMM. CV: irregularly irregular nl s1,s2 no murmurs rubs or gallops Lungs: clear to auscultation bilaterally. no accessory muscle use Abd: soft nontender nondistended. Ext: +LE edema. no cyanosis. R BKA Skin: warm dry Neuro: more lethargic this morning. moving all extremities Psych: flat affect a/p Neuro- waxing and waning mental status CV- hypotension ?related to chronic renal failure. r/o septic. norepinephrine. midodrine q6 afib rate controlled Pulmonary-sat well on NC ID- no clear infection. cultures remain negative. continue abx since patient has been hypotensive without a clear cause. 5 days total Renal- ESRD -dialysis per renal. hyponatremia GI- diet as tolerated Heme- anemia. heparin proph Endocrine- appropriate response to cosyntropin stim. blood sugars controlled Dispo- continue ICU care for hemodynamic support discussing with family palliate care katesandra I have personally spent 30 minutes of critical care time in the direct management of this patient. This is a life/limb threatening event. This includes time spent evaluating patient, direct bedside care, chart review, placing orders, interpretation of diagnostic studies, discussion with consultants, patient, and/or family members regarding treatment decisions, as well as other required patient management activities. This time is exclusive of all separately billable procedures, and teaching time and separate from and in addition to any other critical care service time. Romeo Ballesteros M.D Pulmonary/Critical care medicine Subjective Pt sleeping in bed this morning in no acute distress. she is more alert and orientated today. No current concerns, she is anuric, no bms for 2 days, eating about half or her meals and sleeping well. No concerns at present Physical Exam Vital Signs (Past 24 Hours): Last Vital Signs Temp 36.8 C 11/23/18 04:00 Pulse 72 11/23/18 06:00 Resp 20 11/23/18 06:00 BP 106/52 L 11/23/18 06:00 Pulse Ox 97 11/23/18 06:00 Constitutional: + ill appearing, + morbidly obese and + disheveled Eyes: PERRL, conjunctivae normal, anicteric sclerae Neck: trachea midline, no thyromegaly (R Tripple Lumen IJ in place ) normal visual inspection Respiratory: normal respiratory effort, lungs clear to auscultation Cardiovascular: Rate/Rhythm: + abnormal rhythm (Irregularly Irregular ) Heart Sounds: normal S1 and normal S2; no murmur (Did not appreciate any murmurs) Extremities: + pedal edema; no calf tenderness Gastrointestinal (Abdomen): normal bowel sounds, soft, nontender, no hepatospl enomegaly Neurologic: PERRL, EOMI, accommodation nl, no face palsy, no dysarthria Resident Activity Tracking Resident Involvement: Resident Care Provided Care Provided: Adult [facility]
[2018-11-23 08:15] LABS: Iron 37 mcg/dl (35-150); Transferrin 130 mg/dl (200-360); Transferrin Percent Saturation 20 % (15-50)
--- NOTE | 2018-11-23 10:03 | Pharmacy Report ---
Pharmacy Abx Dose Short Note - Date of Service November 23, 2018 - Assessment & Plan Assessment * 52 year old F admitted on 11/10 for hypotension and Afib w RVR. Currently in ICU with persistent hypotension requiring pressure support with norepinephrine and phenylephrine. Attempts to wean unsuccessful thus far. * Continue empiric Zosyn and vancomycin, day 4 of 5 * Chronic HD patient - nephrology following. HD planned for today Vancomycin * Goal pre-HD vancomycin level 15-20 mcg/mL * Timeline * 11/20 1529: Vancomycin 1750 mg IV x1 * 11/21 0448: Random vancomycin level 22.1 mcg/mL * 11/21 174: Completed 4 hr HD session * 11/21 1813: Vancomycin 500 mg IV x1 * 11/22 0442: Random vancomycin level 22.1 mcg/mL * 11/23 0353: Random vancomycin level 19.9 mcg/mL * Assessment based on timeline (above) * 500 mg dose of vancomycin after a 4 hour HD session will keep pre-HD level stable * Patient will clear a small, but possibly significant amount of vancomycin without HD - about 2 mcg/mL q24h Plan * Vancomycin 500 mg IV x1 after HD today * No additional levels needed, unless therapy is extended beyond 5 day course Pharmacy will continue to follow and will adjust dose/frequency as necessary. Thank you.
[2018-11-23] MEDS ORDERED: IRON SUCROSE 50 MG in SYRINGE 0 ML IV SCH (11:30)
[2018-11-23] MEDS ORDERED: VANCOMYCIN HCL 500 MG in 0.9 % SODIUM CHLORIDE 100 ML IV SCH (14:00)
[2018-11-23] MEDS: NOREPINEPHRINE BIT INJ 8 MG in DEXTROSE 5% 500 ML IV SCH (15:54)
--- NOTE | 2018-11-23 17:23 | Hospitalist Progress Note ---
Date of Service November 23, 2018 Assessment & Plan (1) New onset a-fib: Patient converted to sinus rhythm Transitioned from IV to p.o. 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 Robles's notes -Troponin on presentation 2.34, EKG does not show acute ST changes -Patient reporting chest pain however seems to be musculoskeletal in nature and not similar to anginal equivalent in the past -History of CAD, S/P KAROLINE to mid circumflex 02/2018 and BMS to circumflex 2015, chronic RCA occlusion -Case discussed with Dr. Venegas who advised initiating heparin drip however unable to at this time due to coagulopathy -Continue cycle cardiac enzymes, check resting echo -Continue aspirin and Plavix; beta-silvia and nitrate as BP allows; holding statin due to elevated LFTs -Heart rate remains stable -Still has volume overload (7) Abnormal LFTs: per Dr. Robles's notes Likely multifactorial Her ALT was highly elevated in August LFTs are elevated at this time likely secondary to hypoxia/drug- induced/hepatitis/fatty liver with cirrhosis No portal vein thrombosis on ultrasound Appreciate GI input and recommendation She has been on Mucomyst and will finish the course-Mucomyst has been stopped this morning on 11/12 LFTs have been improving Received vitamin K 5 mg orally yesterday LFTs improving and INR is 1.5 today Repeat LFTs shows improvement Ultrasound of the liver did not show any significant cirrhosis and/or fatty infiltration of the liver MRCP-unremarkable, a few gallstones but no obstruction and no biliary ductal dilatation Liver function is improved further Denies any abdominal pain but has nausea and vomited once LFTs remain stable but INR is elevated to 1.9 today Will need to have vitamin K if INR goes high INR is 1.4 today (8) Coagulopathy: per Dr. Robles's notes: -On admission, patient found to have elevated AST and ALT -Initial INR 1.9 with repeat being 2.6 -No history of hepatic disease in the past -? Shock liver from hypotension yesterday -GI consult, case discussed with Dr. Eduardo who advises obtaining hepatitis panel, CMV, EBV, HSV; trend LFTs and coags; started Mucomyst drip per protocol -Liver ultrasound with portal vein Doppler-negative for any thrombus INR management as noted above Will give vitamin K if INR remains high (9) History of right below knee amputation: -S/P right BKA on 10/[address] Jones Does not overtly appear to be infected, but vancomycin Zosyn started empirically Complains some pain at the stump but no obvious infection (10) Anemia associated with chronic renal failure: Hg stable (11) Eschar of finger: -Left second finger -Following with Dr. Pryor -No signs of active infection (12) ESRD (end stage renal disease) on dialysis: HD per Nephro Continue hemodialysis (13) DM type 2 (diabetes mellitus, type 2): -Hgb A1c 7.3 08/2018 -Lantus and NovoLog per protocol while hospitalized (14) GERD (gastroesophageal reflux disease): -Continue PPI (15) DVT prophylaxis: -None needed at this time, INR 2..2 -Received vitamin K and INR is 1.4 (16) Physical deconditioning: will need PT/OT Disposition pending We will discuss with Arina If there is no improvement we will get palliative care involved Discussed with the niece and will have a palliative care consult tomorrow Subjective 11/22 Patient was seen and examined in ICU She was transferred to ICU with hypotension and A. fib with RVR Has been on pressors since transfer Heart rate remains controlled with amiodarone Remains very weak and lethargy 11/23 The patient was seen and examined in ICU She has been remaining very weak and lethargic and the blood pressure is not been controlled without the pressor Denies any chest pain and/or palpitation No shortness of breath at rest I had a long discussion with the niece this afternoon and the patient and herself was agreeable to have a palliative care consult. Physical Exam Vital Signs (Past 24 Hours): Last Vital Signs Temp 36.6 C 11/23/18 14:20 Pulse 70 11/23/18 16:00 Resp 19 11/23/18 15:00 BP 98/54 L 11/23/18 15:00 Pulse Ox 100 11/23/18 15:00 Physical Exam: Looks pale. Minimal distress at rest Constitutional: well developed, + acute distress (Shortness of breath), + ill appearing, + obese and + edematous Eyes: PERRL, conjunctivae normal, anicteric sclerae ENMT: external ear and nose normal, oropharynx normal Respiratory: + respiratory distress (Mild to moderate at rest) and + uses accessory muscles Auscultation: + diminished lung sounds and + crackles (Minimal crackles at the bases) Cardiovascular: Rate/Rhythm: + abnormal rate and + abnormal rhythm Vessels: normal peripheral pulses Extremities: + edema Gastrointestinal (Abdomen): Inspection/Auscultation: + abdomen distended and normal bowel sounds Percussion/Palpation: + abdomen tender (Mildly tender in the epigastrium) and abdomen soft Musculoskeletal: no cyanosis or clubbing, extremities motor strength 5/5 Extremities: + lower leg abnormality (Right AKA) Skin: no rashes, warm and dry Neurologic: awake and + confused Psychiatric: A+Ox3, euthymic affect Results & Data Laboratory Results Short CBC 11/23/18 Range/Units 03:53 WBC 5.34 (4.8-10.8) K/uL Hgb 10.4 L (12.0-16.0) g/dL Hct 35.1 L (37-47) % Plt Count 362 (130-400) K/uL [facility] 11/23/18 03:53 Sodium 128 L Potassium 4.2 Chloride 93 L Carbon Dioxide 23 BUN 36 H Creatinine 4.89 H* D Glucose 92 Calcium 9.3 Medications Administered Current Inpatient Medications Amiodarone HCl (Cordarone) 200 mg PO BID PENDING SALE TO [facility] Stop: 12/19/18 08:59 Last Admin: 11/23/18 07:34 Dose: 200 mg Documented by: Aspirin (Ecotrin Ectab) [facility] [place] Stop: 12/11/18 08:59 Last Admin: 11/23/18 07:34 Dose: 81 mg Documented by: Clopidogrel Bisulfate (Plavix) 75 mg PO QAM JIHAN Stop: 12/11/18 08:59 Last Admin: 11/23/18 07:34 Dose: 75 mg Documented by: Dextrose (Dextrose 50%) 25 - 50 ml IV UD PRN; Protocol PRN Reason: Hypoglycemia Protocol Stop: 12/10/18 16:09 Docusate Sodium (Colace) 100 mg PO BID JIHAN Stop: 12/10/18 20:59 Last Admin: 11/23/18 07:34 Dose: 100 mg Documented by: Gabapentin (Neurontin) 300 mg PO HS JIHAN Stop: 12/10/18 20:59 Last Admin: 11/22/18 20:15 Dose: 300 mg Documented by: Glucagon (Glucagen) 1 mg SQ UD PRN; Protocol PRN Reason: Hypoglycemia Protocol Stop: 12/10/18 16:09 Glucose (Glucose 40%) 15 - 30 gm PO UD PRN; Protocol PRN Reason: Hypoglycemia Protocol Stop: 12/10/18 16:09 Glucose (Dex4 Glucose) 4 - 8 tabs PO UD PRN; Protocol PRN Reason: Hypoglycemia Protocol Stop: 12/10/18 16:09 Heparin Sodium (Beef Lung) (Heparin Sod 10 Unit/Ml Flush) 5 ml FLUSH PRN PRN PRN Reason: Flush Stop: 12/19/18 00:05 Heparin Sodium (Porcine) (Heparin Sodium (Porcine)) 5,000 units SQ Q8 JIHAN Stop: 12/19/18 13:59 Last Admin: 11/23/18 14:19 Dose: 5,000 units Documented by: Phenylephrine HCl 40 mg/ (Dextrose) 504 mls @ 44.14 mls/hr IV .[id number] PRN; Protocol PRN Reason: Blood Pressure - Low Stop: 12/20/18 08:50 Last Titration: 11/22/18 09:05 Dose: Infused Documented by: Piperacillin Sod/Tazobactam (Sod 3.375 gm/ Dextrose) 115 mls @ 28.75 mls/hr IV Q12H JIHAN; Protocol Stop: 11/25/18 13:59 Last Infusion: 11/23/18 14:41 Dose: Infused Documented by: Norepinephrine Bitartrate 8 mg (/ Dextrose) 508 mls @ 6.41 mls/hr IV .Q24H JIHAN; Protocol Stop: 12/22/18 08:44 Last Admin: 11/23/18 15:54 Dose: 0.015 mcg/kg/min, 6.4 mls/hr Documented by: Vancomycin HCl 500 mg/ Sodium (Chloride) 110 mls @ 125 mls/hr IV TODAY@1400 PENDING SALE TO [facility]; Protocol Stop: 11/23/18 23:59 Last Admin: 11/23/18 14:18 Dose: 125 mls/hr Documented by: Insulin Aspart (Novolog Flexpen) 0 units SC ACHS PENDING SALE TO [facility] Stop: 12/10/18 16:29 Last Admin: 11/23/18 12:02 Dose: Not Given Documented by: Insulin Glargine (Lantus Solostar Pen) 5 units SC Q12 PENDING S[facility] Stop: 12/10/18 16:59 Last Admin: 11/23/18 07:35 Dose: Not Given Documented by: Levalbuterol HCl (Xopenex 0.63 Mg/3 Ml Neb) 0.63 mg NEB Q4H PRN PRN Reason: Shortness Of Breath Or Wheezin Stop: 12/14/18 20:57 Last Admin: 11/14/18 22:13 Dose: 0.63 mg Documented by: Levothyroxine Sodium (Synthroid) 50 mcg PO DAILYBB PENDING SALE TO [facility] Stop: 12/11/18 06:29 Last Admin: 11/23/18 05:52 Dose: 50 mcg Documented by: Lidocaine (Lidoderm 5%) 1 patch TD QAM [facility]END[facility] S[facility] TO [facility] Stop: 12/11/18 08:59 Last Admin: 11/23/18 07:36 Dose: Not Given Documented by: Magnesium Hydroxide (Milk Of Magnesia) 30 ml PO DAILY PRN PRN Reason: Constipation Stop: 12/10/18 16:00 Meclizine HCl (Antivert) 25 mg PO TID PRN PRN Reason: Dizziness Stop: 12/10/18 16:00 Miconazole Nitrate (Desenex) 1 appln EXT PRN PRN PRN Reason: Affected Skin Folds Stop: 12/17/18 10:49 Midodrine (Proamatine) 10 mg PO 0700,1100,1500,1900 PENDING SALE TO [facility] Stop: 12/22/18 10:59 Last Admin: 11/23/18 15:53 Dose: 10 mg Documented by: Miscellaneous (Order Awaiting Action) 1 ea N/A QS PEND[facility] Stop: 12/11/18 00:00 Last Admin: 11/23/18 15:54 Dose: Not Given Documented by: Miscellaneous (Remove Lidoderm Patch) 1 ea N/A DAILY@2100 PENDING SALE TO [facility] Stop: 12/10/18 20:59 Last Admin: 11/22/18 20:18 Dose: 1 ea Documented by: Miscellaneous (Carbohydrates For Hypoglycemia) 15 - 30 gm PO UD PRN PRN Reason: Hypoglycemia Treatment Stop: 12/10/18 16:09 Miscellaneous Information (Consult) 1 ea N/A UD PRN PRN Reason: Consult Stop: 11/25/18 13:59 Miscellaneous Information (Consult) 1 ea N/A UD PRN PRN Reason: Consult Stop: 11/25/18 14:59 Nystatin (Mycostatin) 1 appln EXT BID [facility] Stop: 12/10/18 20:59 Last Admin: 11/23/18 07:36 Dose: 1 appln Documented by: Ondansetron HCl (Zofran) 4 mg PO QID PRN PRN Reason: Nausea Stop: 12/10/18 16:00 Last Admin: 11/16/18 22:05 Dose: 4 mg Documented by: Oxycodone HCl (Roxicodone Immediate Rel) 5 mg PO Q6H PRN PRN Reason: Pain Stop: 12/04/18 08:55 Pantoprazole Sodium (Protonix) 40 mg PO QAM [facility] Stop: 12/11/18 08:59 Last Admin: 11/23/18 07:33 Dose: 40 mg Documented by: Polyethylene Glycol (Miralax Powder Packet) 17 gm PO QDL PRN PRN Reason: Constipation Stop: 12/10/18 16:00 Senna/Docusate Sodium (Senokot S) 1 tab PO QDL PRN PRN Reason: Constipation Stop: 12/10/18 16:00 Sertraline HCl (Zoloft) 25 mg PO TODAY@2100 PENDING SALE TO [facility] Stop: 12/15/18 20:59 Last Admin: 11/22/18 20:16 Dose: 25 mg Documented by: Sevelamer HCl (Renagel) 3,200 mg PO TIDM PENDING SALE TO [facility] Stop: 12/10/18 16:59 Last Admin: 11/23/18 12:01 Dose: Not Given Documented by: Vitamin B Complex/Folic Acid (Nephrocaps) [facility] [place] Stop: 12/11/18 08:59 Last Admin: 11/23/18 07:34 Dose: 1 cap Documented by: (1) CAD (coronary artery disease) Coronary Disease-Associated Artery/Lesion type: [place] artery [place] vs. 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
[2018-11-23] MEDS: GABAPENTIN 300 MG CAP PO SCH (21:20)
[2018-11-23] MEDS: SERTRALINE HCL 50 MG TABLET PO SCH (21:22)
[2018-11-24 05:09] LABS: Basophils # (auto) 0.05 K/uL (0-0.2); Basophils % (auto) 1.1 %; Eosinophils # (auto) 0.14 K/uL (0-0.5); Hematocrit (blood only) 31.8 % (37-47); Hemoglobin 9.6 g/dL (12.0-16.0); Immature Granulocytes # (auto) 0.01 K/uL (0.00-0.02); Immature Granulocytes % (auto) 0.2 %; Lymphocytes # (auto) 1.07 K/uL (1.2-3.4); Mean Corpuscular Hgb Conc 30.2 g/dL (32-36); Mean Corpuscular Volume 84.6 fL (80-100); Mean Platelet Volume 9.2 fL (7.4-10.4); Monocytes # (auto) 0.68 K/uL (0.11-0.59); Monocytes % (auto) 14.6 %; Neutrophils % (auto) 58.1 %; Nucleated RBC # (auto) 0.04 K/uL (0-0); Nucleated RBC % (auto) 0.9 %; Platelet Count 315 K/uL (130-400); RDW Coefficient of Variation 20.8 % (11.5-14.5); RDW Standard Deviation 63.3 fL (36.4-46.3); Red Blood Count 3.76 M/uL (4.2-5.4); White Blood Count 4.65 K/uL (4.8-10.8)
[2018-11-24 05:48] LABS: Anisocytosis Present; Hypochromasia Present; Target Cells 1+
[2018-11-24 06:01] LABS: BUN Creatinine Ratio 6.1 (10-20); Calcium 8.8 mg/dl (8.5-10.1); Creatinine Clr Calc Pharmacy 21.9 ml/min; Est GFR (African American) 15.3; Est GFR (Non-African American) 13.2; Phosphorus 3.3 mg/dl (2.5-4.9); Potassium 3.5 mmol/L (3.5-5.1)
[2018-11-24] MEDS: LEVOTHYROXINE SODIUM 50 MCG TABLET PO SCH (06:04)
[2018-11-24] MEDS: HEPARIN SOD 5,000 UNIT/0.5 ML VIAL SQ SCH ×3 (06:05→21:55)
[2018-11-24] MEDS: INSULIN ASPART 100 UNITS/ML 3 ML PEN SC SCH ×4 (07:41→20:27)
[2018-11-24] MEDS: PIPERACILLIN/TAZOBACTAM 3.375 GM in DEXTROSE 5% 100 ML IV SCH ×2 (07:46→20:50)
[2018-11-24] MEDS: SEVELAMER HCL 800 MG TABLET PO SCH ×4 (07:46→18:17)
[2018-11-24] MEDS: MIDODRINE HCL 10 MG TAB PO SCH ×4 (07:46→19:49)
[2018-11-24] MEDS: DOCUSATE SODIUM 100 MG CAP PO SCH ×2 (07:47→19:49)
[2018-11-24] MEDS: NEPHROCAPS PO SCH (07:47)
[2018-11-24] MEDS: PANTOprazole 40 MG TAB PO SCH (07:47)
[2018-11-24] MEDS: CLOPIDOGREL BISULFATE 75 MG TAB PO SCH (07:47)
[2018-11-24] MEDS: ASPIRIN 81 MG ECTAB PO SCH (07:48)
[2018-11-24] MEDS: AMIODARONE 200 MG TAB PO SCH ×2 (07:48→19:49)
[2018-11-24] MEDS: NYSTATIN POWDER 15GM BTL EXT SCH ×2 (07:49→19:51)
[2018-11-24] MEDS: LIDOCAINE 5% 1 PATCH TD SCH (07:51)
--- NOTE | 2018-11-24 07:57 | Critical Care Progress Note ---
Date of Service November 24, 2018 Assessment & Plan (1) Admitted to intensive care unit: Reason Critically Ill: 52 year-old Female here for hypotension and atrial fibrillation with rapid ventricular response. Past medical history significant for AFIB, MRSA +ve, Anemia, R BKA, ESRD on HD, CAD, Poorly Controlled DMII, Morbid obesity, and current smoker. PLAN: Neuro: alert and orientated today Resp: Acute hypoxic respiratory failure Right-sided pleural effusion on 11/20 chest x-ray -Satting 100% on 2L NC; continue to wean O2 as tolerated CV: Hypotension: continues to improve -off Phenylephrine since yesterday evening -Midodrine 10 mg 0700,1100,1500,1900 Atrial fibrillation with rapid ventricular response spontaneously converted to NSR on November 18 -Continue amiodarone 200 mg BID Fluids/Renal: End-stage renal disease on hemodialysis -S/p dialysis on 11/23 -HD per Nephro Hyponatremia continues to improve ID: Pt continues to be afebrile monitor fever curve Blood cultures remain negative -Continue Vanc Zosyn, -htn improving -pt improving clinically BKA Stump clean dry and intact GI/Nutrition: patient has not been eating well, hypoglycemic episode this am monitor BSG Diet as tolerated Heme: Elevated INR (resolved) -INR 2.2->1.4s/p 2 days of 5 mg IV vitamin K. Anemia of chronic disease DVT prophylaxis: SCDs: Heparin 5000 mg 3 times daily today Endocrine: ICU hyperglycemia protocol -Cosyntropin stim test negative for adrenal insufficiency Vascular access: Right internal jugular central venous catheter triple lumen Code Status: DNR in event of cardiac arrest. Dispo: Likely downgrade to floor status today or tomorrow Thank you for allowing us to be part of this patient's care. Please refer to Dr. Ballesteros's documentation for any further recommendations. Supervising Physician Co-Signing Physician Notes Patient seen and examined with the resident. I agree with above except as noted below 52 y/o female with ESRD who presented with hypotension from unknown cause. Constitutional: Comfortable NAD HEENT: normocephalic atraumatic. MMM. CV: irregularly irregular nl s1,s2 no murmurs rubs or gallops Lungs: clear to auscultation bilaterally. no accessory muscle use Abd: soft nontender nondistended. Ext: +LE edema. no cyanosis. R BKA Skin: warm dry Neuro: awake. moving all extremities Psych: flat affect a/p Neuro- waxing and waning mental status CV- hypotension ?related to chronic renal failure. r/o septic. off no repinephrine since last evening. midodrine q6 afib rate controlled Pulmonary-sat well on NC ID- no clear infection. cultures remain negative. continue abx since patient has been hypotensive without a clear cause. 5 days total Renal- ESRD -dialysis per renal. hyponatremia GI- diet as tolerated Heme- anemia. heparin proph Endocrine- appropriate response to cosyntropin stim. blood sugars controlled. levothyroxine for hypothyroidism Dispo- if remains off vasopressors can likely transfer out of ICU paliative care [place] I have personally spent 30 minutes of critical care time in the direct management of this patient. This is a life/limb threatening event. This includes time spent evaluating patient, direct bedside care, chart review, placing orders, interpretation of diagnostic studies, discussion with consultants, patient, and/or family members regarding treatment decisions, as well as other required patient management activities. This time is exclusive of all separately billable procedures, and teaching time and separate from and in addition to any other critical care service time. Romeo Ballesteros M.D Pulmonary/Critical care medicine Subjective Pt significantly more alert and orientated today, responding to questions and participating in the interview. Pt reports having a bm overnight. Per nursing pt is noting eating much, still anuric. Pt is s/p HD yesterday. Pt has no current concerns and all questions were answered. Physical Exam Vital Signs (Past 24 Hours): Last Vital Signs Temp 36.9 C 11/24/18 04:00 Pulse 66 11/24/18 06:00 Resp 12 11/24/18 06:00 BP 95/52 L 11/24/18 06:00 Pulse Ox 100 11/24/18 06:00 Constitutional: + morbidly obese Eyes: PERRL, conjunctivae normal, anicteric sclerae Neck: trachea midline, no thyromegaly (R Tripple Lumen IJ in place ) normal visual inspection Respiratory: normal respiratory effort, lungs clear to auscultation Cardiovascular: Rate/Rhythm: + abnormal rhythm (Irregularly Irregular ) Heart Sounds: normal S1 and normal S2; no murmur (Did not appreciate any murmurs) Extremities: + pedal edema; no calf tenderness Gastrointestinal (Abdomen): normal bowel sounds, soft, nontender, no hepatosplenomegaly Skin: Eschar left index finger, blood clots in left fingers as well improving. Lower extremity wound is improving. BKA site looks better, clean dry intact, no si/sx of infection. Neurologic: PERRL, EOMI, accommodation nl, no face palsy, no dysarthria Results & Data Laboratory Results 11/24/18 04:48 11/24/18 04:48 11/24/18 11/24/18 11/24/18 Range/Units 07:04 06:38 06:37 WBC (4.8-10.8) K/uL RBC (4.2-5.4) M/uL Hgb (12.0-16.0) g/dL Hct (37-47) % MCV (80-100) fL MCH (25-34) pg MCHC (32-36) g/dL RDW Std Deviation (36.4-46.3) fL RDW Coeff of Dru (11.5-14.5) % Plt Count (130-400) K/uL MPV (7.4-10.4) fL Immature Gran % (Auto) % Neut % (Auto) % Lymph % (Auto) % [place] % (Auto) % Eos % (Auto) % Baso % (Auto) % Immature Gran # (Auto) (0.00-0.02) K/uL Neut # (Auto) (1.4-6.5) K/uL Lymph # (Auto) (1.2-3.4) K/uL [place] # (Auto) (0.11-0.59) K/uL Eos # (Auto) (0-0.5) K/uL Baso # (Auto) (0-0.2) K/uL Absolute Nucleated RBC (0-0) K/uL Nucleated RBC % (auto) % Hypochromasia Anisocytosis Target Cells Sodium (136-145) mmol/L Potassium (3.5-5.1) mmol/L Chloride (98-107) mmol/L Carbon Dioxide (21-32) mmol/L Anion Gap (3-11) BUN (7-18) mg/dl Creatinine (0.6-1.2) mg/dl Est Cr Clr Drug Dosing ml/min Est GFR ( Amer) Est GFR (Non-Af Amer) BUN/Creatinine Ratio (10-20) Glucose (70-99) mg/dl POC Glucose 94 67 L* 64 L* (70-99) Calcium (8.5-10.1) mg/dl Phosphorus (2.5-4.9) mg/dl Magnesium (1.8-2.4) mg/dl 11/24/18 11/24/18 11/23/18 Range/Units 04:48 04:48 21:14 WBC 4.65 L (4.8-10.8) K/uL RBC 3.76 L (4.2-5.4) M/uL Hgb 9.6 L (12.0-16.0) g/dL Hct 31.8 L (37-47) % MCV 84.6 (80-100) fL MCH 25.5 (25-34) pg MCHC 30.2 L (32-36) g/dL RDW Std Deviation 63.3 H (36.4-46.3) fL RDW Coeff of Dru 20.8 H (11.5-14.5) % Plt Count 315 (130-400) K/uL MPV 9.2 (7.4-10.4) fL Immature Gran % (Auto) 0.2 % Neut % (Auto) 58.1 % Lymph % (Auto) 23.0 % [place] % (Auto) 14.6 % Eos % (Auto) 3.0 % Baso % (Auto) 1.1 % Immature Gran # (Auto) 0.01 (0.00-0.02) K/uL Neut # (Auto) 2.70 (1.4-6.5) K/uL Lymph # (Auto) 1.07 L (1.2-3.4) K/uL [place] # (Auto) 0.68 H (0.11-0.59) K/uL Eos # (Auto) 0.14 (0-0.5) K/uL Baso # (Auto) 0.05 (0-0.2) K/uL Absolute Nucleated RBC 0.04 H (0-0) K/uL Nucleated RBC % (auto) 0.9 % Hypochromasia Present Anisocytosis Present Target Cells 1+ Sodium 134 L (136-145) mmol/L Potassium 3.5 D (3.5-5.1) mmol/L Chloride 96 L (98-107) mmol/L Carbon Dioxide 28 (21-32) mmol/L Anion Gap 10.0 (3-11) BUN 23 H (7-18) mg/dl Creatinine 3.75 H D (0.6-1.2) mg/dl Est Cr Clr Drug Dosing 21.9 ml/min Est GFR ( Amer) 15.3 Est GFR (Non-Af Amer) 13.2 BUN/Creatinine Ratio 6.1 L (10-20) Glucose 65 L (70-99) mg/dl POC Glucose 74 (70-99) Calcium 8.8 (8.5-10.1) mg/dl Phosphorus 3.3 D (2.5-4.9) mg/dl Magnesium 2.0 (1.8-2.4) mg/dl 11/23/18 11/23/18 Range/Units 16:44 11:49 WBC (4.8-10.8) K/uL RBC (4.2-5.4) M/uL Hgb (12.0-16.0) g/dL Hct (37-47) % MCV (80-100) fL MCH (25-34) pg MCHC (32-36) g/dL RDW Std Deviation (36.4-46.3) fL RDW Coeff of Dru (11.5-14.5) % Plt Count (130-400) K/uL MPV (7.4-10.4) fL Immature Gran % (Auto) % Neut % (Auto) % Lymph % (Auto) % [place] % (Auto) % Eos % (Auto) % Baso % (Auto) % Immature Gran # (Auto) (0.00-0.02) K/uL Neut # (Auto) (1.4-6.5) K/uL Lymph # (Auto) (1.2-3.4) K/uL [place] # (Auto) (0.11-0.59) K/uL Eos # (Auto) (0-0.5) K/uL Baso # (Auto) (0-0.2) K/uL Absolute Nucleated RBC (0-0) K/uL Nucleated RBC % (auto) % Hypochromasia Anisocytosis Target Cells Sodium (136-145) mmol/L Potassium (3.5-5.1) mmol/L Chloride (98-107) mmol/L Carbon Dioxide (21-32) mmol/L Anion Gap (3-11) BUN (7-18) mg/dl Creatinine (0.6-1.2) mg/dl Est Cr Clr Drug Dosing ml/min Est GFR ( Amer) Est GFR (Non-Af Amer) BUN/Creatinine Ratio (10-20) Glucose (70-99) mg/dl POC Glucose 72 96 (70-99) Calcium (8.5-10.1) mg/dl Phosphorus (2.5-4.9) mg/dl Magnesium (1.8-2.4) mg/dl Medications Administered Current Inpatient Medications Amiodarone HCl (Cordarone) 200 mg PO BID [facility] Stop: 12/19/18 08:59 Last Admin: 11/24/18 07:48 Dose: 200 mg Documented by: Aspirin (Ecotrin Ectab) 81 mg PO QAM [facility] Stop: 12/11/18 08:59 Last Admin: 11/24/18 07:48 Dose: 81 mg Documented by: Clopidogrel Bisulfate (Plavix) 75 mg PO QAM [facility] Stop: 12/11/18 08:59 Last Admin: 11/24/18 07:47 Dose: 75 mg Documented by: Dextrose (Dextrose 50%) 25 - 50 ml IV UD PRN; Protocol PRN Reason: Hypoglycemia Protocol Stop: 12/10/18 16:09 Last Admin: 11/24/18 06:42 Dose: 25 ml Documented by: Docusate Sodium (Colace) 100 mg PO BID [facility] Stop: 12/10/18 20:59 Last Admin: 11/24/18 07:47 Dose: 100 mg Documented by: Gabapentin (Neurontin) 300 mg PO HS [facility] Stop: 12/10/18 20:59 Last Admin: 11/23/18 21:20 Dose: 300 mg Documented by: Glucagon (Glucagen) 1 mg SQ UD PRN; Protocol PRN Reason: Hypoglycemia Protocol Stop: 12/10/18 16:09 Glucose (Glucose 40%) 15 - 30 gm PO UD PRN; Protocol PRN Reason: Hypoglycemia Protocol Stop: 12/10/18 16:09 Glucose (Dex4 Glucose) 4 - 8 tabs PO UD PRN; Protocol PRN Reason: Hypoglycemia Protocol Stop: 12/10/18 16:09 Heparin Sodium (Beef Lung) (Heparin Sod 10 Unit/Ml Flush) 5 ml FLUSH PRN PRN PRN Reason: Flush Stop: 12/19/18 00:05 Heparin Sodium (Porcine) (Heparin Sodium (Porcine)) 5,000 units SQ Q8 [facility] Stop: 12/19/18 13:59 Last Admin: 11/24/18 06:05 Dose: 5,000 units Documented by: Piperacillin Sod/Tazobactam (Sod 3.375 gm/ Dextrose) 115 mls @ 28.75 mls/hr IV Q12H [facility]; Protocol Stop: 11/25/18 13:59 Last Admin: 11/24/18 07:46 Dose: 28.8 mls/hr Documented by: Norepinephrine Bitartrate 8 mg (/ Dextrose) 508 mls @ 0 mls/hr IV .Q0M [facility]; Protocol Stop: 12/22/18 08:44 Last Titration: 11/24/18 08:54 Dose: Infused Documented by: Insulin Aspart (Novolog Flexpen) 0 units SC ACHS [facility]; Protocol Stop: 12/10/18 16:29 Last Admin: 11/24/18 07:41 Dose: Not Given Documented by: Insulin Glargine (Lantus Solostar Pen) 0 units SC HS [facility]; Protocol Stop: 12/24/18 20:59 Levalbuterol HCl (Xopenex 0.63 Mg/3 Ml Neb) 0.63 mg NEB Q4H PRN PRN Reason: Shortness Of Breath Or Wheezin Stop: 12/14/18 20:57 Last Admin: 11/14/18 22:13 Dose: 0.63 mg Documented by: Levothyroxine Sodium (Synthroid) 50 mcg PO DAILYBB [facility] Stop: 12/11/18 06:29 Last Admin: 11/24/18 06:04 Dose: 50 mcg Documented by: Lidocaine (Lidoderm 5%) 1 patch TD QAM [facility] Stop: 12/11/18 08:59 Last Admin: 11/24/18 07:51 Dose: Not Given Documented by: Magnesium Hydroxide (Milk Of Magnesia) 30 ml PO DAILY PRN PRN Reason: Constipation Stop: 12/10/18 16:00 Meclizine HCl (Antivert) 25 mg PO TID PRN PRN Reason: Dizziness Stop: 12/10/18 16:00 Miconazole Nitrate (Desenex) 1 appln EXT PRN PRN PRN Reason: Affected Skin Folds Stop: 12/17/18 10:49 Midodrine (Proamatine) 10 mg PO 0700,1100,1500,1900 [facility] Stop: 12/22/18 10:59 Last Admin: 11/24/18 07:46 Dose: 10 mg Documented by: Miscellaneous (Order Awaiting Action) 1 ea N/A QS [facility] Stop: 12/11/18 00:00 Last Admin: 11/24/18 07:44 Dose: Not Given Documented by: Miscellaneous (Remove Lidoderm Patch) 1 ea N/A DAILY@2100 [facility] Stop: 12/10/18 20:59 Last Admin: 11/23/18 21:21 Dose: 1 ea Documented by: Miscellaneous (Carbohydrates For Hypoglycemia) 15 - 30 gm PO UD PRN PRN Reason: Hypoglycemia Treatment Stop: 12/10/18 16:09 Miscellaneous Information (Consult) 1 ea N/A UD PRN PRN Reason: Consult Stop: 11/25/18 13:59 Miscellaneous Information (Consult) 1 ea N/A UD PRN PRN Reason: Consult Stop: 11/25/18 14:59 Miscellaneous Information (Consult Glycemic Management Pharmacy) 1 ea N/A UD [facility] Stop: 12/24/18 09:07 Nystatin (Mycostatin) 1 appln EXT BID [facility] Stop: 12/10/18 20:59 Last Admin: 11/24/18 07:49 Dose: 1 appln Documented by: Ondansetron HCl (Zofran) 4 mg PO QID PRN PRN Reason: Nausea Stop: 12/10/18 16:00 Last Admin: 11/16/18 22:05 Dose: 4 mg Documented by: Oxycodone HCl (Roxicodone Immediate Rel) 5 mg PO Q6H PRN PRN Reason: Pain Stop: 12/04/18 08:55 Pantoprazole Sodium (Protonix) 40 mg PO QAM [facility] Stop: 12/11/18 08:59 Last Admin: 11/24/18 07:47 Dose: 40 mg Documented by: Polyethylene Glycol (Miralax Powder Packet) 17 gm PO QDL PRN PRN Reason: Constipation Stop: 12/10/18 16:00 Senna/Docusate Sodium (Senokot S) 1 tab PO QDL PRN PRN Reason: Constipation Stop: 12/10/18 16:00 Sertraline HCl (Zoloft) 25 mg PO TODAY@2100 [facility] Stop: 12/15/18 20:59 Last Admin: 11/23/18 21:22 Dose: 25 mg Documented by: Sevelamer HCl (Renagel) 3,200 mg PO TIDM [facility] Stop: 12/10/18 16:59 Last Admin: 11/24/18 07:46 Dose: 3,200 mg Documented by: Vitamin B Complex/Folic Acid (Nephrocaps) 1 cap PO QAM [facility] Stop: 12/11/18 08:59 Last Admin: 11/24/18 07:47 Dose: 1 cap Documented by: Resident Activity Tracking Resident Involvement: Resident Care Provided (ICU) Care Provided: Adult Hospital Medicine
[2018-11-24] MEDS: NOREPINEPHRINE BIT INJ 8 MG in DEXTROSE 5% 500 ML IV SCH (08:54)
[2018-11-24] MEDS ORDERED: PHARMACY GLYCEMIC MGMT CONSULT SCH (09:08)
--- NOTE | 2018-11-24 09:56 | Pharmacy Report ---
Pharmacy Glycemic Short Note 2 - Date of Service November 24, 2018 - Glycemic Short BSG Results (Last 24 hours): 11/23/18 11/23/18 11/23/18 11:49 16:44 21:14 Glucose POC Glucose 96 72 74 11/24/18 11/24/18 11/24/18 04:48 06:37 06:38 Glucose 65 L POC Glucose 64 L* 67 L* 11/24/18 07:04 Glucose POC Glucose 94 OUTPATIENT ANTIDIABETIC REGIMEN: * Lantus 15 units Q HS * Novolog per sliding scale * A1c = not checked this admission due to h/o ESRD ASSESSMENT: * Type 2 diabetic admitted w/ a fib RVR + hypotension * Patient is known to Glycemic Control Service from prior admissions * Mild fasting hypoglycemia observed this AM. Of note, she received no insulin (basal or rapid acting) in > 24 hrs. * Will adjust basal insulin order and dose only once daily per scale to minimize hypoglycemia risk * Will also adjust the Novolog CR to better match what has performed well on prior hospitalizations PLAN FOR INPATIENT GLYCEMIC CONTROL: * Basal insulin * Lantus SQ HS per the following scale: 0 units if BSG less than 110, 5 units if BSG 110-180, 8 units if BSG above 180 * Bolus insulin * NovoLog per scale ACHS or Q6hrs while NPO * Goal Range: Low 110 mg/dL - High 140 mg/dL * Correction Factor: 30 mg/dL/unit * Nutritional / Prandial insulin per carb ratio of 1 unit per 15 grams CHO consumed PLAN FOR DISCHARGE: * to be determined
--- NOTE | 2018-11-24 12:18 | Palliative Care Consultation ---
Date of Consultation November 24, 2018 Assessment & Plan (1) Palliative care encounter: This is a 52-year-old female who was sent to the ED from [facility] for evaluation of hypotension, hypoxia and chest pain. She was at [facility] after an admission here at the [facility] for a R BKA and was discharged on November 03 2018. She has been reportedly doing 'well', but has been increasingly more lethargic and weak as time progresses. She has required inotropic support while inpatient this hospitalization and has underwent two sessions of HD, most recently yesterday with 3L of fluid removal. Additional PMH includes CAD, DM2, ESRD HD dependent, long-standing active smoker, obesity, and anemia of chronic disease. Palliative Care was consulted to discuss goals of care. -I met with patient in room 111. Patient was sitting upright in her bed, appearing 'wiped out' and tired. -I introduced palliative care which she has not heard of and started to talk about her goals. -We did confirm that should she spontanously lose a pulse or stop breathing, that she would not want to be resuscitated. We confirmed her DNR/DNI status. -She expressed that she feels like dialysis is going ok, but doesn't know 'what is next'. -She expressed that she felt her time at [facility] went well when she was discharged there post R BKA amputation. -We talked about conservative measures r/t her dialysis and how sometimes we make decisions to move forward with aggressive measures, but it is never really addressed afterwards how it is affecting ones life. -She asked what would happen should she stop dialysis. I explained about metabolic encephalopathy and toxicity which would lead to her in about 1 week- she understood and proceeded to tell me that she has a goal to reach her 53nd birthday which is on November 28. I expressed that is feasible and can continue to work towards that goal. -She has been off of inotropic support since last evening and her B/P has been mid-90s since systolic. -She did state that should she decline and require pressors again, she would be willing to escalate again to inotropic support. -We will continue discussing these goals for this deteriorating patient and will meet with her again to further discuss her goals. -Logistically there is a plan for her to transition to [facility] upon discharge, which she is in support of. -I did reach out to her niece/POA Alejandro Wang [phone] who expressed she does not see her leaving the hospital let alone moving to her apartment. The patient does have a daughter who is incarcerated and she has written her mom a letter which Alejandro will bring on Monday 11/27. I will meet with Alejandro on Monday 11/27 at 1100 for a family meeting. I did express that the patient was relatively clear today; however, had some bouts of confusion with names, etc; therefore, I think that it is best to have Alejandro involved for all decision making. -Patient will be transferred to Room 232. -Palliative Performance Scale: 30% -She said that she has one goal. (2) PAF (paroxysmal atrial fibrillation): -Managed by [facility] -Spontaneously converted to NSR -Remains on PO Amiodarone and B-Dominique (3) History of right below knee amputation: -Continues to be in rehabilitation state -Recent surgery and D/C to [facility] 11/10 -[place] remain intact -Plan for [facility] post stablization and D/C (4) Anemia associated with chronic renal failure: -Managed by [facility] and Nephrology -Receiving HD M/W/F -BUN 23 Creatinine 3.75 GFR 13.2 -Last HD was 11/23/18 with 3L removed Supervising Physician Co-Signing Physician Notes Chart reviewed, patient seen and examined, no family or friends at bedside. Patient known to me from [facility]was involved with her care prior to her amputation, was not involved in her care with her transfer back to [facility] after her amputation. PE: Patient definitely more fatigued and weak compared to when I saw her last at [facility] in October HEENT: EOMI, normal hearing Respirations: Slightly labored with conversation, equal breath sounds CV: Regular rate, 1-2+ edema Abdomen: Obese, soft, nontender Neuro: Alert, mildly confused Agree with above note, assessment and plan as per ENEDINA Flannery -will continue to follow and assist patient and family with medical decision making History of Present Illness Reason for Consultation: Goals of Care Requesting Physician: Dr. Robles Attending Physician: Margarita Robles MD History of Present Illness This is a 52-year-old female who was sent to the ED from [facility] for evaluation of hypotension, hypoxia and chest pain. She was at [facility] after an admission here at the [facility] for a R BKA and was discharged on November 03 2018. She has been reportedly doing 'well', but has been increasingly more lethargic and weak as time progresses. She has required inotropic support while inpatient this hospitalization and has underwent two sessions of HD, most recently yesterday with 3L of fluid removal. Additional PMH includes CAD, DM2, ESRD HD dependent, long-standing active smoker, obesity, and anemia of chronic disease. Palliative Care was consulted to discuss goals of care. Please see A&P for further details. Thank you kindly for involving the Palliative Care team with this unfortunate female patient. Allergies Allergy/AdvReac Type Severity Reaction Status Date / Time adhesive Allergy Mild RASH, SORES Verified 11/10/18 12:48 latex Allergy Mild rash Verified 11/10/18 12:48 No Known Drug Allergies Allergy Mild . Verified 11/10/18 12:48 pollen extracts Allergy Mild WATERY EYES Verified 11/10/18 12:48 Home Medications Home Medications Medication Instructions Recorded Confirmed Type aspirin 81 mg PO QAM 08/16/18 11/10/18 History atorvastatin 40 mg PO QAM 08/16/18 11/10/18 History nitroglycerin 0.4 mg SUBLINGUAL DIRECTED PRN 08/16/18 11/10/18 History pantoprazole 40 mg PO QAM 08/16/18 11/10/18 History sertraline 25 mg PO QAM 08/16/18 11/10/18 History fluticasone propionate [Flonase 1 spray INTRANASAL QAM 09/19/18 11/10/18 History Allergy Relief] gabapentin 300 mg PO HS 09/19/18 11/10/18 History isosorbide mononitrate 60 mg PO QAM 09/19/18 11/10/18 History levothyroxine 50 mcg PO QAM 09/19/18 11/10/18 History meclizine 25 mg PO TID PRN 09/19/18 11/10/18 History midodrine 10 mg PO TID 09/19/18 11/10/18 History nystatin 1 applic TOPICAL BID 09/19/18 11/10/18 History sennosides-docusate sodium 1 tab PO QDL PRN 09/19/18 11/10/18 History [Senna-S] sevelamer carbonate [Renvela] 3,200 mg PO TIDM 09/19/18 11/10/18 History Fleet Enema 118 ml MI DAILY PRN 10/06/18 11/10/18 History bisacodyl 10 mg MI DAILY PRN 10/06/18 11/10/18 History lorazepam [Ativan] 0.5 mg PO DAILY PRN 10/06/18 11/10/18 History magnesium hydroxide [Milk of 30 ml PO DAILY PRN 10/06/18 11/10/18 History Magnesia] metoprolol tartrate 12.5 mg PO BID 10/06/18 11/10/18 History ondansetron HCl [Zofran] 4 mg PO QID PRN 10/06/18 11/10/18 History polyethylene glycol 3350 [Miralax] 17 g PO QDL PRN 10/06/18 11/10/18 History Aranesp (in polysorbate) 1 dose SUBCUT WK 10/25/18 11/10/18 History Lantus U-100 Insulin 15 unit SUBCUT HS 10/25/18 11/10/18 History Nephrocaps 1 cap PO QAM 10/25/18 11/10/18 History acetaminophen 500 mg PO Q4H PRN 10/25/18 11/10/18 History docusate sodium 100 mg PO BID 10/25/18 11/10/18 History hydrocodone-acetaminophen 1 tab PO Q6H PRN 10/25/18 11/10/18 History lidocaine [Lidoderm] 1 patch TOPICAL QAM 10/25/18 11/10/18 History Venofer See Rx Instructions .ROUTE .COMPLEX 10/27/18 11/10/18 History clopidogrel [Plavix] 75 mg PO QAM 10/27/18 11/10/18 History dextrose [Glucose Gel] See Rx Instructions .ROUTE 10/27/18 11/10/18 History .COMPLEX PRN glucagon HCl See Rx Instructions .ROUTE 10/27/18 11/10/18 History .COMPLEX PRN sodium chloride 0.9 % 1,000 ml IV UD PRN 10/27/18 11/10/18 History heparin (porcine) 5,000 unit SUBCUT Q12H 11/10/18 11/10/18 History insulin aspart U-100 [Novolog 1 sliding scale dose SUBCUT 11/10/18 11/10/18 History U-100 Insulin aspart] USEASDIRECTD Patient History Medical History 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) Nares Anemia (Chronic) RCA occlusion (Chronic) History of right below knee amputation (Chronic) Anemia associated with chronic renal failure (Chronic) Ischemia of right lower extremity (Resolved) Gangrene of toe of right foot (Resolved) Eschar of finger (Chronic) Peripheral vascular disease (Chronic) s/p R SFA angioplasty with 2 stents placed at [facility] on 08/09/18 Arthritis (Chronic) CAD (coronary artery disease) (Chronic) "s/p PCI and BMS to left circumflex 03/2016" 02/2018 - s/p KAROLINE to mid cx Ischemic cardiomyopathy (Chronic) Carotid stenosis (Chronic) "left ICA" ESRD (end stage renal disease) on dialysis (Chronic) DM type 2 (diabetes mellitus, type 2) (Chronic) GERD (gastroesophageal reflux disease) (Chronic) Allergic rhinitis (Chronic) Morbid obesity (Chronic) Dyslipidemia (Chronic) Tobacco use disorder (Resolved) HTN (hypertension) (Chronic) C. difficile colitis (Resolved) Surgical History History of left-sided carotid endarterectomy (Resolved) Status post transmetatarsal amputation of right foot (Chronic) Family History Other Diabetes Heart disease Social History Communication Ability: Effective Beliefs That Will Affect Care: None marital status: / Current Living Situation: Rehab Other Information That Helps Us Care for You: No Feels Safe at Home: Yes Safety Concerns: Feels Safe At This Time Smoking Status: Former smoker Hx Alcohol Use: Yes Hx Substance Use: No Review of Systems General: Pt denies overall pain. Pt does report a 'cyst' on her right thigh that is painful to touch. HEENT: Pt reports dizziness intermittently, denies visual changes, NELSON CV: Pt denies chest pain, palpitations Resp: Pt states her breathing is worse than when she came in, but doesn't feel short of breath GI: Pt states she has + nausea, no real vomiting and has been constipated, but has started having BM's : Pt denies urinary changes, does not make much urine Skin: Pt reports pain on her right thigh where a 'pimple' has presented Physical Exam Vital Signs (Past 24 Hours): Last Vital Signs Temp 36.8 C 11/24/18 08:00 Pulse 82 11/24/18 08:30 Resp 22 11/24/18 08:30 BP 99/61 L 11/24/18 08:30 Pulse Ox 98 11/24/18 08:30 Physical Exam: Pt sitting upright in bed Constitutional: + ill appearing, cooperative and + lethargic Eyes: PERRL, conjunctivae normal, anicteric sclerae Neck: trachea midline, no thyromegaly Respiratory: Auscultation: + diminished lung sounds on 2LNC Cardiovascular: RRR, no murmur, no edema (spontenously converted to NSR) R IJ TLC Gastrointestinal (Abdomen): Inspection/Auscultation: normal bowel sounds and + significant pannus Percussion/Palpation: abdomen soft Skin: normal turgor R BKA with petra intact and no drainage. Erythema noted on stump. small half-dime shaped erythematous blister noted on R thigh above petra. No drainage Psychiatric: A+Ox3, euthymic affect Eye Contact: good eye contact Insight: good insight Judgement: good judgement Time Spent Midlevel Total time spent 70 minutes with > 50% of that time spent reviewing the chart, assessing the patient, discussing goals of care with patient at the bedside.
--- NOTE | 2018-11-24 15:06 | Hospitalist Progress Note ---
Date of Service November 24, 2018 Assessment & Plan (1) Hypotension: in the setting of A fib in RVR, ICM Cosyntropin test performed: negative Empiric vancomycin and Zosyn added, day 4 for possible infection Appreciate speeder worker input and recommended Has been on intravenous pressors and not been able to wean off Intravenous pressor agents have been off since last night Blood pressure is maintained at the lower end of normal Patient will be transferred to telemetry unit (2) Physical deconditioning: Disposition We will discuss with Arina If there is no improvement we will get palliative care involved Discussed with the niece and will have a palliative care consult tomorrow Appreciate palliative care input and recommendation Palliative care is going to have a meeting with the elizabeth for further management options (3) Ischemic cardiomyopathy: per Dr. Robles's notes -Troponin on presentation 2.34, EKG does not show acute ST changes -Patient reporting chest pain however seems to be musculoskeletal in nature and not similar to anginal equivalent in the past -History of CAD, S/P KAROLINE to mid circumflex 02/2018 and BMS to circumflex 2015, chronic RCA occlusion -Case discussed with Dr. Venegas who advised initiating heparin drip however unable to at this time due to coagulopathy -Continue cycle cardiac enzymes, check resting echo -Continue aspirin and Plavix; beta-silvia and nitrate as BP allows; holding statin due to elevated LFTs -Heart rate remains stable -Still has volume overload-we will continue with hemodialysis (4) New onset a-fib: Patient converted to sinus rhythm Transitioned from IV to p.o. amiodarone Rate is controlled with oral amiodarone Denies any chest pain and/or palpitation Heart rate is controlled (5) Hypoxia: secondary to bilateral pleural effusion volume management per Nephro wean off O2 accordingly (6) Elevated troponin: possible NSTEMI Heparin unable to be started due to coagulopathy Cardiology consulted continued on medical therapy (7) CAD (coronary artery disease): (8) Abnormal LFTs: per Dr. Robles's notes Likely multifactorial Her ALT was highly elevated in August LFTs are elevated at this time likely secondary to hypoxia/drug- induced/hepatitis/fatty liver with cirrhosis No portal vein thrombosis on ultrasound Appreciate GI input and recommendation She has been on Mucomyst and will finish the course-Mucomyst has been stopped this morning on 11/12 LFTs have been improving Received vitamin K 5 mg orally yesterday LFTs improving and INR is 1.5 today Repeat LFTs shows improvement Ultrasound of the liver did not show any significant cirrhosis and/or fatty infiltration of the liver MRCP-unremarkable, a few gallstones but no obstruction and no biliary ductal dilatation Liver function is improved further Denies any abdominal pain but has nausea and vomited once LFTs remain stable but INR is elevated to 1.9 today Will need to have vitamin K if INR goes high INR is 1.4 today (9) Coagulopathy: per Dr. Robles's notes: -On admission, patient found to have elevated AST and ALT -Initial INR 1.9 with repeat being 2.6 -No history of hepatic disease in the past -? Shock liver from hypotension yesterday -GI consult, case discussed with Dr. Eduardo who advises obtaining hepatitis panel, CMV, EBV, HSV; trend LFTs and coags; started Mucomyst drip per protocol -Liver ultrasound with portal vein Doppler-negative for any thrombus INR management as noted above Will give vitamin K if INR remains high (10) History of right below knee amputation: -S/P right BKA on 10/[address] Jones Does not overtly appear to be infected, but vancomycin Zosyn started empirically Complains some pain at the stump but no obvious infection (11) Anemia associated with chronic renal failure: Hg stable (12) Eschar of finger: -Left second finger -Following with Dr. Pryor -No signs of active infection (13) ESRD (end stage renal disease) on dialysis: HD per Nephro Continue hemodialysis (14) DM type 2 (diabetes mellitus, type 2): -Hgb A1c 7.3 08/2018 -Lantus and NovoLog per protocol while hospitalized (15) GERD (gastroesophageal reflux disease): -Continue PPI (16) DVT prophylaxis: -None needed at this time, INR 2..2 -Received vitamin K and INR is 1.4 Subjective 11/22 Patient was seen and examined in ICU She was transferred to ICU with hypotension and A. fib with RVR Has been on pressors since transfer Heart rate remains controlled with amiodarone Remains very weak and lethargy 11/23 The patient was seen and examined in ICU She has been remaining very weak and lethargic and the blood pressure is not been controlled without the pressor Denies any chest pain and/or palpitation No shortness of breath at rest I had a long discussion with the niece this afternoon and the patient and herself was agreeable to have a palliative care consult. 11/24 The patient was seen and examined in ICU Remains very pale and lethargic Has been off pressors since last night Blood pressure has been maintaining to the morning We will transfer the patient to medical telemetry unit Physical Exam Vital Signs (Past 24 Hours): Last Vital Signs Temp 36.5 C 11/24/18 12:00 Pulse 79 11/24/18 12:32 Resp 24 11/24/18 12:32 BP 98/62 L 11/24/18 12:32 Pulse Ox 99 11/24/18 12:32 Physical Exam: Very weak and lethargic at rest with moderate shortness of breath Constitutional: WD/WN, vitals as above well developed, + acute distress (Shortness of breath), + ill appearing, + obese and + edematous Eyes: PERRL, conjunctivae normal, anicteric sclerae ENMT: external ear and nose normal, oropharynx normal Respiratory: + respiratory distress (Mild to moderate at rest) and + uses accessory muscles Auscultation: + diminished lung sounds and + crackles (Minimal crackles at the bases) Cardiovascular: Rate/Rhythm: + abnormal rate and + abnormal rhythm Vessels: normal peripheral pulses Extremities: + edema Gastrointestinal (Abdomen): Inspection/Auscultation: + abdomen distended and normal bowel sounds Percussion/Palpation: + abdomen tender (Mildly tender in the epigastrium) and abdomen soft Musculoskeletal: no cyanosis or clubbing, extremities motor strength 5/5 Extremities: + lower leg abnormality (Right AKA) Skin: no rashes, warm and dry Neurologic: PERRL, EOMI, accommodation nl, no face palsy, no dysarthria awake and + confused Motor/Sensory: + tremor (Occasional tremor of the upper extremities) Psychiatric: A+Ox3, euthymic affect Results & Data Laboratory Results Short CBC 11/24/18 Range/Units 04:48 WBC 4.65 L (4.8-10.8) K/uL Hgb 9.6 L (12.0-16.0) g/dL Hct 31.8 L (37-47) % Plt Count 315 (130-400) K/uL BMP 11/24/18 04:48 Sodium 134 L Potassium 3.5 D Chloride 96 L Carbon Dioxide 28 BUN 23 H Creatinine 3.75 H D Glucose 65 L Calcium 8.8 Medications Administered Current Inpatient Medications Amiodarone HCl (Cordarone) 200 mg PO BID [facility] Stop: 12/19/18 08:59 Last Admin: 11/24/18 07:48 Dose: 200 mg Documented by: Aspirin (Ecotrin Ectab) 81 mg PO QAM [facility] Stop: 12/11/18 08:59 Last Admin: 11/24/18 07:48 Dose: 81 mg Documented by: Clopidogrel Bisulfate (Plavix) 75 mg PO QAM [facility] Stop: 12/11/18 08:59 Last Admin: 11/24/18 07:47 Dose: 75 mg Documented by: Dextrose (Dextrose 50%) 25 - 50 ml IV UD PRN; Protocol PRN Reason: Hypoglycemia Protocol Stop: 12/10/18 16:09 Last Admin: 11/24/18 06:42 Dose: 25 ml Documented by: Docusate Sodium (Colace) 100 mg PO BID [facility] Stop: 12/10/18 20:59 Last Admin: 11/24/18 07:47 Dose: 100 mg Documented by: Gabapentin (Neurontin) 300 mg PO HS [facility] Stop: 12/10/18 20:59 Last Admin: 11/23/18 21:20 Dose: 300 mg Documented by: Glucagon (Glucagen) 1 mg SQ UD PRN; Protocol PRN Reason: Hypoglycemia Protocol Stop: 12/10/18 16:09 Glucose (Glucose 40%) 15 - 30 gm PO UD PRN; Protocol PRN Reason: Hypoglycemia Protocol Stop: 12/10/18 16:09 Glucose (Dex4 Glucose) 4 - 8 tabs PO UD PRN; Protocol PRN Reason: Hypoglycemia Protocol Stop: 12/10/18 16:09 Heparin Sodium (Beef Lung) (Heparin Sod 10 Unit/Ml Flush) 5 ml FLUSH PRN PRN PRN Reason: Flush Stop: 12/19/18 00:05 Last Admin: 11/24/18 11:02 Dose: 5 ml Documented by: Heparin Sodium (Porcine) (Heparin Sodium (Porcine)) 5,000 units SQ Q8 JIHAN Stop: 12/19/18 13:59 Last Admin: 11/24/18 14:25 Dose: 5,000 units Documented by: Piperacillin Sod/Tazobactam (Sod 3.375 gm/ Dextrose) 115 mls @ 28.75 mls/hr IV Q12H [facility]; Protocol Stop: 11/25/18 13:59 Last Infusion: 11/24/18 12:00 Dose: Infused Documented by: Insulin Aspart (Novolog Flexpen) 0 units SC ACHS [facility]; Protocol Stop: 12/10/18 16:29 Last Admin: 11/24/18 12:17 Dose: Not Given Documented by: Insulin Glargine (Lantus Solostar Pen) 0 units SC HS [facility]; Protocol Stop: 12/24/18 20:59 Levalbuterol HCl (Xopenex 0.63 Mg/3 Ml Neb) 0.63 mg NEB Q4H PRN PRN Reason: Shortness Of Breath Or Wheezin Stop: 12/14/18 20:57 Last Admin: 11/14/18 22:13 Dose: 0.63 mg Documented by: Levothyroxine Sodium (Synthroid) 50 mcg PO DAILYBB [facility] Stop: 12/11/18 06:29 Last Admin: 11/24/18 06:04 Dose: 50 mcg Documented by: Lidocaine (Lidoderm 5%) 1 patch TD QAM [facility] Stop: 12/11/18 08:59 Last Admin: 11/24/18 07:51 Dose: Not Given Documented by: Magnesium Hydroxide (Milk Of Magnesia) 30 ml PO DAILY PRN PRN Reason: Constipation Stop: 12/10/18 16:00 Meclizine HCl (Antivert) 25 mg PO TID PRN PRN Reason: Dizziness Stop: 12/10/18 16:00 Miconazole Nitrate (Desenex) 1 appln EXT PRN PRN PRN Reason: Affected Skin Folds Stop: 12/17/18 10:49 Midodrine (Proamatine) 10 mg PO 0700,1100,1500,1900 [facility] Stop: 12/22/18 10:59 Last Admin: 11/24/18 10:37 Dose: 10 mg Documented by: Miscellaneous (Order Awaiting Action) 1 ea N/A QS [facility] Stop: 12/11/18 00:00 Last Admin: 11/24/18 07:44 Dose: Not Given Documented by: Miscellaneous (Remove Lidoderm Patch) 1 ea N/A DAILY@2100 [facility] Stop: 12/10/18 20:59 Last Admin: 11/23/18 21:21 Dose: 1 ea Documented by: Miscellaneous (Carbohydrates For Hypoglycemia) 15 - 30 gm PO UD PRN PRN Reason: Hypoglycemia Treatment Stop: 12/10/18 16:09 Miscellaneous Information (Consult) 1 ea N/A UD PRN PRN Reason: Consult Stop: 11/25/18 13:59 Miscellaneous Information (Consult) 1 ea N/A UD PRN PRN Reason: Consult Stop: 11/25/18 14:59 Miscellaneous Information (Consult Glycemic Management Pharmacy) 1 ea N/A UD JIHAN Stop: 12/24/18 09:07 Nystatin (Mycostatin) 1 appln EXT BID JIHAN Stop: 12/10/18 20:59 Last Admin: 11/24/18 07:49 Dose: 1 appln Documented by: Ondansetron HCl (Zofran) 4 mg PO QID PRN PRN Reason: Nausea Stop: 12/10/18 16:00 Last Admin: 11/16/18 22:05 Dose: 4 mg Documented by: Oxycodone HCl (Roxicodone Immediate Rel) 5 mg PO Q6H PRN PRN Reason: Pain Stop: 12/04/18 08:55 Pantoprazole Sodium (Protonix) 40 mg PO QAM [facility] Stop: 12/11/18 08:59 Last Admin: 11/24/18 07:47 Dose: 40 mg Documented by: Polyethylene Glycol (Miralax Powder Packet) 17 gm PO QDL PRN PRN Reason: Constipation Stop: 12/10/18 16:00 Senna/Docusate Sodium (Senokot S) 1 tab PO QDL PRN PRN Reason: Constipation Stop: 12/10/18 16:00 Sertraline HCl (Zoloft) 25 mg PO TODAY@2100 [facility] Stop: 12/15/18 20:59 Last Admin: 11/23/18 21:22 Dose: 25 mg Documented by: Sevelamer HCl (Renagel) 3,200 mg PO TIDM JIHAN Stop: 12/10/18 16:59 Last Admin: 11/24/18 12:18 Dose: 3,200 mg Documented by: Vitamin B Complex/Folic Acid (Nephrocaps) 1 cap PO QAM JIHAN Stop: 12/11/18 08:59 Last Admin: 11/24/18 07:47 Dose: 1 cap Documented by: (1) CAD (coronary artery disease) Coronary Disease-Associated Artery/Lesion type: [place] artery [place] vs. 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
[2018-11-24] MEDS: IRON SUCROSE 100 MG in SYRINGE 0 ML IV SCH (19:21)
[2018-11-24] MEDS: GABAPENTIN 300 MG CAP PO SCH (19:49)
[2018-11-24] MEDS: SERTRALINE HCL 50 MG TABLET PO SCH (19:49)
[2018-11-24] MEDS: INSULIN GLARGINE SOLOSTAR 100 UNITS/ML 3 ML PEN SC SCH (20:49)
[2018-11-25] MEDS: HEPARIN SOD 5,000 UNIT/0.5 ML VIAL SQ SCH ×3 (05:50→21:02)
[2018-11-25] MEDS: LEVOTHYROXINE SODIUM 50 MCG TABLET PO SCH (05:50)
[2018-11-25] MEDS: MIDODRINE HCL 10 MG TAB PO SCH ×4 (05:50→20:54)
[2018-11-25 05:54] LABS: Basophils # (auto) 0.02 K/uL (0-0.2); Basophils % (auto) 0.3 %; Eosinophils # (auto) 0.14 K/uL (0-0.5); Eosinophils % (auto) 2.3 %; Hematocrit (blood only) 32.7 % (37-47); Hemoglobin 9.7 g/dL (12.0-16.0); Immature Granulocytes # (auto) 0.03 K/uL (0.00-0.02); Immature Granulocytes % (auto) 0.5 %; Lymphocytes % (auto) 18.2 %; Mean Corpuscular Hgb Conc 29.7 g/dL (32-36); Mean Corpuscular Volume 85.4 fL (80-100); Mean Platelet Volume 9.6 fL (7.4-10.4); Monocytes # (auto) 0.95 K/uL (0.11-0.59); Monocytes % (auto) 15.8 %; Neutrophils # (auto) 3.79 K/uL (1.4-6.5); Neutrophils % (auto) 62.9 %; Nucleated RBC # (auto) 0.02 K/uL (0-0); Nucleated RBC % (auto) 0.4 %; Platelet Count 312 K/uL (130-400); RDW Coefficient of Variation 21.3 % (11.5-14.5); RDW Standard Deviation 64.4 fL (36.4-46.3); Red Blood Count 3.83 M/uL (4.2-5.4); White Blood Count 6.03 K/uL (4.8-10.8)
[2018-11-25 06:26] LABS: BUN Creatinine Ratio 6.5 (10-20); Calcium 9.3 mg/dl (8.5-10.1); Creatinine Clr Calc Pharmacy 17.9 ml/min; Est GFR (African American) 11.9; Est GFR (Non-African American) 10.3; Magnesium 2.4 mg/dl (1.8-2.4); Potassium 3.8 mmol/L (3.5-5.1)
[2018-11-25 07:02] LABS: Anisocytosis Present; Polychromasia 1+; Target Cells 2+
[2018-11-25] MEDS: PIPERACILLIN/TAZOBACTAM 3.375 GM in DEXTROSE 5% 100 ML IV SCH (07:10)
[2018-11-25] MEDS: CLOPIDOGREL BISULFATE 75 MG TAB PO SCH (07:11)
[2018-11-25] MEDS: SEVELAMER HCL 800 MG TABLET PO SCH ×3 (07:11→20:53)
[2018-11-25] MEDS: PANTOprazole 40 MG TAB PO SCH (07:11)
[2018-11-25] MEDS: NEPHROCAPS PO SCH (07:12)
[2018-11-25] MEDS: ASPIRIN 81 MG ECTAB PO SCH (07:12)
[2018-11-25] MEDS: NYSTATIN POWDER 15GM BTL EXT SCH ×2 (07:14→20:55)
[2018-11-25] MEDS: DOCUSATE SODIUM 100 MG CAP PO SCH ×2 (07:30→21:52)
[2018-11-25] MEDS: LIDOCAINE 5% 1 PATCH TD SCH (07:42)
[2018-11-25] MEDS: AMIODARONE 200 MG TAB PO SCH ×2 (07:47→20:55)
[2018-11-25] MEDS: INSULIN ASPART 100 UNITS/ML 3 ML PEN SC SCH ×4 (08:07→20:57)
--- NOTE | 2018-11-25 08:07 | Pharmacy Report ---
Pharmacy Glycemic Short Note 2 - Date of Service November 25, 2018 - Glycemic Short BSG Results (Last 24 hours): 11/24/18 11/24/18 11/24/18 11:23 16:21 20:14 Glucose POC Glucose 99 101 H 113 H 11/25/18 11/25/18 05:36 07:06 Glucose 88 POC Glucose 79 OUTPATIENT ANTIDIABETIC REGIMEN: * Lantus 15 units Q HS * Novolog per sliding scale * A1c = not checked this admission due to h/o ESRD ASSESSMENT: 11/25 * BSGs have ranged 79-113 over the last 24 hrs * PO intake remains poor * Fasting BSG 79-88 this AM with 5 units of Lantus on board. Will adjust dosing scale to increase threshold for Lantus dosing * Post-prandial BSGs controlled yesterday however pt ate so little that CR was not required 11/24 * Type 2 diabetic admitted w/ a fib RVR + hypotension * Patient is known to Glycemic Control Service from prior admissions * Mild fasting hypoglycemia observed this AM. Of note, she received no insulin (basal or rapid acting) in > 24 hrs. * Will adjust basal insulin order and dose only once daily per scale to minimize hypoglycemia risk * Will also adjust the Novolog CR to better match what has performed well on prior hospitalizations PLAN FOR INPATIENT GLYCEMIC CONTROL: * Basal insulin * Lantus SQ HS per the following scale: 0 units if BSG less than 120, 5 units if BSG 120-180, 8 units if BSG above 180 * Bolus insulin * NovoLog per scale ACHS or Q6hrs while NPO * Goal Range: Low 110 mg/dL - High 140 mg/dL * Correction Factor: 30 mg/dL/unit * Nutritional / Prandial insulin per carb ratio of 1 unit per 15 grams CHO consumed PLAN FOR DISCHARGE: * to be determined
[2018-11-25] MEDS ORDERED: SODIUM CHLORIDE 0.9% 1000ML 1,000 ML IV PRN (08:52)
[2018-11-25] MEDS ORDERED: EPOETIN ALFA 4,000 UNIT/ML VIAL IV ONE (08:52)
[2018-11-25] MEDS ORDERED: ALBUMIN 25% 50 ML IV SCH ×2 (09:00→10:00)
[2018-11-25] MEDS: HEPARIN SOD (PORCINE) 1000 UNIT/ML 10 ML VIAL IV SCH ×2 (09:54→11:15)
[2018-11-25] MEDS ORDERED: HEPARIN SOD (PORCINE) 1000 UNIT/ML 10 ML VIAL IV SCH (10:00)
[2018-11-25] MEDS ORDERED: EPOETIN ALFA IV SCH (10:00)
--- NOTE | 2018-11-25 12:38 | Hospitalist Progress Note ---
Date of Service November 25, 2018 Assessment & Plan (1) Hypotension: in the setting of A fib in RVR, ICM Cosyntropin test performed: negative Empiric vancomycin and Zosyn added, day 4 for possible infection Appreciate fountain pen nibs inspector input and recommended Has been on intravenous pressors and not been able to wean off Intravenous pressor agents have been off since last night Blood pressure is maintained at the lower end of normal Patient will be transferred to telemetry unit Systolic blood pressure has been around 100 since transfer from ICU Remains reasonably stable (2) Physical deconditioning: Disposition We will discuss with Arina If there is no improvement we will get palliative care involved Discussed with the niece and will have a palliative care consult tomorrow Appreciate palliative care input and recommendation Palliative care is going to have a meeting with the niece for further management options Appreciate palliative care input Further recommendation following meeting with the family members on Tuesday (3) Ischemic cardiomyopathy: per Dr. Robles's notes -Troponin on presentation 2.34, EKG does not show acute ST changes -Patient reporting chest pain however seems to be musculoskeletal in nature and not similar to anginal equivalent in the past -History of CAD, S/P KAROLINE to mid circumflex 02/2018 and BMS to circumflex 2015, chronic RCA occlusion -Case discussed with Dr. Venegas who advised initiating heparin drip however unable to at this time due to coagulopathy -Continue cycle cardiac enzymes, check resting echo -Continue aspirin and Plavix; beta-silvia and nitrate as BP allows; holding statin due to elevated LFTs -Heart rate remains stable -Still has volume overload-we will continue with hemodialysis (4) New onset a-fib: Patient converted to sinus rhythm Transitioned from IV to p.o. amiodarone Rate is controlled with oral amiodarone Denies any chest pain and/or palpitation Heart rate is controlled (5) Hypoxia: secondary to bilateral pleural effusion volume management per Nephro wean off O2 accordingly (6) Elevated troponin: possible NSTEMI Heparin unable to be started due to coagulopathy Cardiology consulted continued on medical therapy (7) CAD (coronary artery disease): (8) Abnormal LFTs: per Dr. Robles's notes Likely multifactorial Her ALT was highly elevated in August LFTs are elevated at this time likely secondary to hypoxia/drug- induced/hepatitis/fatty liver with cirrhosis No portal vein thrombosis on ultrasound Appreciate GI input and recommendation She has been on Mucomyst and will finish the course-Mucomyst has been stopped this morning on 11/12 LFTs have been improving Received vitamin K 5 mg orally yesterday LFTs improving and INR is 1.5 today Repeat LFTs shows improvement Ultrasound of the liver did not show any significant cirrhosis and/or fatty infiltration of the liver MRCP-unremarkable, a few gallstones but no obstruction and no biliary ductal dilatation Liver function is improved further Denies any abdominal pain but has nausea and vomited once LFTs remain stable but INR is elevated to 1.9 today Will need to have vitamin K if INR goes high INR is 1.4 today (9) Coagulopathy: per Dr. Robles's notes: -On admission, patient found to have elevated AST and ALT -Initial INR 1.9 with repeat being 2.6 -No history of hepatic disease in the past -? Shock liver from hypotension yesterday -GI consult, case discussed with Dr. Eduardo who advises obtaining hepatitis panel, CMV, EBV, HSV; trend LFTs and coags; started Mucomyst drip per protocol -Liver ultrasound with portal vein Doppler-negative for any thrombus INR management as noted above Will give vitamin K if INR remains high (10) History of right below knee amputation: -S/P right BKA on 10/[address] Jones Does not overtly appear to be infected, but vancomycin Zosyn started empirically Complains some pain at the stump but no obvious infection (11) Anemia associated with chronic renal failure: Hg stable (12) Eschar of finger: -Left second finger -Following with Dr. Pryor -No signs of active infection (13) ESRD (end stage renal disease) on dialysis: HD per Nephro Continue hemodialysis We will continue hemodialysis for now (14) DM type 2 (diabetes mellitus, type 2): -Hgb A1c 7.3 08/2018 -Lantus and NovoLog per protocol while hospitalized (15) GERD (gastroesophageal reflux disease): -Continue PPI (16) DVT prophylaxis: -None needed at this time, INR 2..2 -Received vitamin K and INR is 1.4 Subjective 11/22 Patient was seen and examined in ICU She was transferred to ICU with hypotension and A. fib with RVR Has been on pressors since transfer Heart rate remains controlled with amiodarone Remains very weak and lethargy 11/23 The patient was seen and examined in ICU She has been remaining very weak and lethargic and the blood pressure is not been controlled without the pressor Denies any chest pain and/or palpitation No shortness of breath at rest I had a long discussion with the niece this afternoon and the patient and herself was agreeable to have a palliative care consult. 11/24 The patient was seen and examined in ICU Remains very pale and lethargic Has been off pressors since last night Blood pressure has been maintaining to the morning We will transfer the patient to medical telemetry unit 11/25 She has been weak but little brighter today Denies any significant symptoms except weakness and mild shortness of breath at rest Her blood pressure has been more than 100 systolic Physical Exam Vital Signs (Past 24 Hours): Last Vital Signs Temp 36.8 C 11/25/18 09:20 Pulse 74 11/25/18 12:25 Resp 16 11/25/18 07:03 BP 119/61 11/25/18 12:25 Pulse Ox 98 11/25/18 07:03 Physical Exam: No apparent distress at rest except mild short of breath with has been chronic Constitutional: WD/WN, vitals as above well developed, + acute distress (Shortness of breath), + ill appearing, + obese and + edematous Eyes: PERRL, conjunctivae normal, anicteric sclerae ENMT: external ear and nose normal, oropharynx normal Respiratory: normal respiratory effort and + uses accessory muscles (Occasional) Auscultation: + diminished lung sounds and + crackles (Minimal crackles at the bases) Cardiovascular: Rate/Rhythm: + abnormal rate and + abnormal rhythm Vessels: normal peripheral pulses Extremities: + edema Gastrointestinal (Abdomen): Inspection/Auscultation: + abdomen distended and normal bowel sounds Percussion/Palpation: + abdomen tender (Mildly tender in the epigastrium) and abdomen soft Musculoskeletal: no cyanosis or clubbing, extremities motor strength 5/5 Extremities: + lower leg abnormality (Right AKA) Skin: no rashes, warm and dry Neurologic: PERRL, EOMI, accommodation nl, no face palsy, no dysarthria awake and + confused Motor/Sensory: + tremor (Occasional tremor of the upper extremities) Psychiatric: A+Ox3, euthymic affect Results & Data Laboratory Results Short CBC 11/25/18 Range/Units 05:36 WBC 6.03 (4.8-10.8) K/uL Hgb 9.7 L (12.0-16.0) g/dL Hct 32.7 L (37-47) % Plt Count 312 (130-400) K/uL [facility] 11/25/18 05:36 Sodium 132 L Potassium 3.8 Chloride 96 L Carbon Dioxide 26 BUN 30 H Creatinine 4.60 H* D Glucose 88 Calcium 9.3 Medications Administered Current Inpatient Medications Amiodarone HCl (Cordarone) 200 mg PO BID [facility] Stop: 12/19/18 08:59 Last Admin: 11/25/18 07:47 Dose: 200 mg Documented by: Aspirin (Ecotrin Ectab) 81 mg PO [facility] Stop: 12/11/18 08:59 Last Admin: 11/25/18 07:12 Dose: 81 mg Documented by: Clopidogrel Bisulfate (Plavix) 75 mg PO [facility] Stop: 12/11/18 08:59 Last Admin: 11/25/18 07:11 Dose: 75 mg Documented by: Dextrose (Dextrose 50%) 25 - 50 ml IV UD PRN; Protocol PRN Reason: Hypoglycemia Protocol Stop: 12/10/18 16:09 Last Admin: 11/24/18 06:42 Dose: 25 ml Documented by: Docusate Sodium (Colace) 100 mg PO BID [facility] Stop: 12/10/18 20:59 Last Admin: 11/25/18 07:30 Dose: 100 mg Documented by: Gabapentin (Neurontin) 300 mg PO HS [facility] Stop: 12/10/18 20:59 Last Admin: 11/24/18 19:49 Dose: 300 mg Documented by: Glucagon (Glucagen) 1 mg SQ UD PRN; Protocol PRN Reason: Hypoglycemia Protocol Stop: 12/10/18 16:09 Glucose (Glucose 40%) 15 - 30 gm PO UD PRN; Protocol PRN Reason: Hypoglycemia Protocol Stop: 12/10/18 16:09 Glucose (Dex4 Glucose) 4 - 8 tabs PO UD PRN; Protocol PRN Reason: Hypoglycemia Protocol Stop: 12/10/18 16:09 Heparin Sodium (Beef Lung) (Heparin Sod 10 Unit/Ml Flush) 5 ml FLUSH PRN PRN PRN Reason: Flush Stop: 12/19/18 00:05 Last Admin: 11/24/18 11:02 Dose: 5 ml Documented by: Heparin Sodium (Porcine) (Heparin Sodium (Porcine)) 5,000 units SQ Q8 [facility] Stop: 12/19/18 13:59 Last Admin: 11/25/18 05:50 Dose: 5,000 units Documented by: Heparin Sodium (Porcine) (Heparin Iv Bolus) 1,000 units IV TODAY@1000 [facility] Stop: 11/25/18 23:59 Last Admin: 11/25/18 09:54 Dose: 1,000 units Documented by: Heparin Sodium (Porcine) (Heparin Iv Bolus) 400 units IV TODAY@0900,1000,1100 [facility] Stop: 11/25/18 23:59 Last Admin: 11/25/18 11:15 Dose: Not Given Documented by: Piperacillin Sod/Tazobactam (Sod 3.375 gm/ Dextrose) 115 mls @ 28.75 mls/hr IV Q12H [facility]; Protocol Stop: 11/25/18 13:59 Last Admin: 11/25/18 07:10 Dose: 28.8 mls/hr Documented by: Albumin Human (Albumin 25%) 50 mls @ 50 mls/hr IV TODAY@0900 [facility] Stop: 11/25/18 23:59 Last Admin: 11/25/18 09:54 Dose: 50 mls/hr Documented by: Albumin Human (Albumin 25%) 50 mls @ 50 mls/hr IV TODAY@1000 [facility] Stop: 11/25/18 23:59 Last Admin: 11/25/18 09:54 Dose: 50 mls/hr Documented by: Sodium Chloride (Nss 1000ml) 1,000 mls @ 0 mls/hr IV .Q0M PRN PRN Reason: For Hemodialysis Use ONLY Stop: 11/25/18 14:51 Last Admin: 11/25/18 09:54 Dose: 50 mls/hr Documented by: Epoetin Christopher 6,000 units/ (Syringe) 0.3 mls @ 1 mls/min IV TODAY@1000 [facility] Stop: 11/25/18 23:59 Last Admin: 11/25/18 09:54 Dose: 1 mls/min Documented by: Insulin Aspart (Novolog Flexpen) 0 units SC ACHS [facility]; Protocol Stop: 12/10/18 16:29 Last Admin: 11/25/18 12:11 Dose: Not Given Documented by: Insulin Glargine (Lantus Solostar Pen) 0 units SC HS [facility]; Protocol Stop: 12/24/18 20:59 Last Admin: 11/24/18 20:49 Dose: 5 units Documented by: Levalbuterol HCl (Xopenex 0.63 Mg/3 Ml Neb) 0.63 mg NEB Q4H PRN PRN Reason: Shortness Of Breath Or Wheezin Stop: 12/14/18 20:57 Last Admin: 11/14/18 22:13 Dose: 0.63 mg Documented by: Levothyroxine Sodium (Synthroid) 50 mcg PO DAILYBB [facility] Stop: 12/11/18 06:29 Last Admin: 11/25/18 05:50 Dose: 50 mcg Documented by: Lidocaine (Lidoderm 5%) 1 patch TD QAM [facility] Stop: 12/11/18 08:59 Last Admin: 11/25/18 07:42 Dose: Not Given Documented by: Magnesium Hydroxide (Milk Of Magnesia) 30 ml PO DAILY PRN PRN Reason: Constipation Stop: 12/10/18 16:00 Meclizine HCl (Antivert) 25 mg PO TID PRN PRN Reason: Dizziness Stop: 12/10/18 16:00 Miconazole Nitrate (Desenex) 1 appln EXT PRN PRN PRN Reason: Affected Skin Folds Stop: 12/17/18 10:49 Midodrine (Proamatine) 10 mg PO 0700,1100,1500,1900 [facility] Stop: 12/22/18 10:59 Last Admin: 11/25/18 11:20 Dose: 10 mg Documented by: Miscellaneous (Order Awaiting Action) 1 ea N/A QS [facility] Stop: 12/11/18 00:00 Last Admin: 11/25/18 07:08 Dose: Not Given Documented by: Miscellaneous (Remove Lidoderm Patch) 1 ea N/A DAILY@2100 [facility] Stop: 12/10/18 20:59 Last Admin: 11/24/18 19:47 Dose: Not Given Documented by: Miscellaneous (Carbohydrates For Hypoglycemia) 15 - 30 gm PO UD PRN PRN Reason: Hypoglycemia Treatment Stop: 12/10/18 16:09 Miscellaneous Information (Consult) 1 ea N/A UD PRN PRN Reason: Consult Stop: 11/25/18 13:59 Miscellaneous Information (Consult) 1 ea N/A UD PRN PRN Reason: Consult Stop: 11/25/18 14:59 Miscellaneous Information (Consult Glycemic Management Pharmacy) 1 ea N/A UD [facility] Stop: 12/24/18 09:07 Nystatin (Mycostatin) 1 appln EXT BID [facility] Stop: 12/10/18 20:59 Last Admin: 11/25/18 07:14 Dose: 1 appln Documented by: Ondansetron HCl (Zofran) 4 mg PO QID PRN PRN Reason: Nausea Stop: 12/10/18 16:00 Last Admin: 11/16/18 22:05 Dose: 4 mg Documented by: Oxycodone HCl (Roxicodone Immediate Rel) 5 mg PO Q6H PRN PRN Reason: Pain Stop: 12/04/18 08:55 Pantoprazole Sodium (Protonix) 40 mg PO QAM [facility] Stop: 12/11/18 08:59 Last Admin: 11/25/18 07:11 Dose: 40 mg Documented by: Polyethylene Glycol (Miralax Powder Packet) 17 gm PO QDL PRN PRN Reason: Constipation Stop: 12/10/18 16:00 Senna/Docusate Sodium (Senokot S) 1 tab PO QDL PRN PRN Reason: Constipation Stop: 12/10/18 16:00 Sertraline HCl (Zoloft) 25 mg PO TODAY@2100 [facility] Stop: 12/15/18 20:59 Last Admin: 11/24/18 19:49 Dose: 25 mg Documented by: Sevelamer HCl (Renagel) 3,200 mg PO TIDM [facility] Stop: 12/10/18 16:59 Last Admin: 11/25/18 12:12 Dose: Not Given Documented by: Vitamin B Complex/Folic Acid (Nephrocaps) 1 cap PO QAM [facility] Stop: 12/11/18 08:59 Last Admin: 11/25/18 07:12 Dose: 1 cap Documented by: (1) CAD (coronary artery disease) Coronary Disease-Associated Artery/Lesion type: [place] artery [place] vs. 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
--- NOTE | 2018-11-25 12:58 | Dialysis Progress Note ---
Date of Service November 25, 2018 Assessment & Plan (1) ESRD (end stage renal disease) on dialysis: ESRD patient on HD TTS. She tolerated HD on 4/2 w/ 2.8L off. She is still volume overload but less so Next HD today -- uf as tolerated; albumin w/ HD to optimize this -cont BB and midodrine as needed -based on 11/23 iron studies >> 50 mg venofer w/ HD once weekly q thurs -low dose epo today -binders also continued when taking po reliably -palliative care documentation noted Subjective seen on dialysis. more awake today and interactive/appropriate but exhausted. ate breakfast, no sob (still on ), no n/v; some pain on L knee and R stump; no chest pain/pressure Physical Exam Vital Signs (Past 24 Hours): Last Vital Signs Temp 36.8 C 11/25/18 09:20 Pulse 74 11/25/18 12:25 Resp 16 11/25/18 07:03 BP 119/61 11/25/18 12:25 Pulse Ox 98 11/25/18 07:03 Constitutional: well developed, well nourished and + obese on 02nc, Eyes: EOM intact bilaterally ENMT: Ears: no external ear abnormality Nose: no external nose abnormality Mouth: + dry oral mucous membranes Neck: no nuchal rigidity Respiratory: normal respiratory effort Auscultation: + diminished lung sounds Cardiovascular: Rate/Rhythm: regular rate and regular rhythm Extremities: + edema (trace dependent) and + AV fistula (+ t/b) Gastrointestinal (Abdomen): Inspection/Auscultation: normal bowel sounds Percussion/Palpation: abdomen soft; abdomen nontender, no guarding and no fluid wave Musculoskeletal: Extremities: strength 5/5 throughout Skin: no rashes, warm and dry Neurologic: stein, fluent speech Psychiatric: A+Ox3, euthymic affect Orientation: alert, oriented x 3 and cooperative Affect: euthymic affect Results & Data Laboratory Results Abnormal lab results 11/24/18 11/24/18 11/25/18 Range/Units 16:21 20:14 05:36 RBC 3.83 L (4.2-5.4) M/uL Hgb 9.7 L (12.0-16.0) g/dL Hct 32.7 L (37-47) % MCHC 29.7 L (32-36) g/dL RDW Std Deviation 64.4 H (36.4-46.3) fL RDW Coeff of Dru 21.3 H (11.5-14.5) % Immature Gran # (Auto) 0.03 H (0.00-0.02) K/uL Lymph # (Auto) 1.10 L (1.2-3.4) K/uL [place] # (Auto) 0.95 H (0.11-0.59) K/uL Absolute Nucleated RBC 0.02 H (0-0) K/uL Sodium (136-145) mmol/L Chloride (98-107) mmol/L BUN (7-18) mg/dl Creatinine (0.6-1.2) mg/dl BUN/Creatinine Ratio (10-20) POC Glucose 101 H 113 H (70-99) /02/07 Range/Units 05:36 RBC (4.2-5.4) M/uL Hgb (12.0-16.0) g/dL Hct (37-47) % MCHC (32-36) g/dL RDW Std Deviation (36.4-46.3) fL RDW Coeff of Dru (11.5-14.5) % Immature Gran # (Auto) (0.00-0.02) K/uL Lymph # (Auto) (1.2-3.4) K/uL [place] # (Auto) (0.11-0.59) K/uL Absolute Nucleated RBC (0-0) K/uL Sodium 132 L (136-145) mmol/L Chloride 96 L (98-107) mmol/L BUN 30 H (7-18) mg/dl Creatinine 4.60 H* D (0.6-1.2) mg/dl BUN/Creatinine Ratio 6.5 L (10-20) POC Glucose (70-99)
[2018-11-25] MEDS: GABAPENTIN 300 MG CAP PO SCH (20:56)
[2018-11-25] MEDS: INSULIN GLARGINE SOLOSTAR 100 UNITS/ML 3 ML PEN SC SCH (20:58)
[2018-11-25] MEDS: SERTRALINE HCL 50 MG TABLET PO SCH (21:00)
[2018-11-25] MEDS: OXYCODONE HCL IR 5 MG TAB (IMMEDIATE RELEASE) PO PRN (21:14)
[2018-11-26] MEDS: HEPARIN SOD 5,000 UNIT/0.5 ML VIAL SQ SCH ×3 (05:33→21:27)
[2018-11-26] MEDS: MIDODRINE HCL 10 MG TAB PO SCH ×4 (05:34→17:23)
[2018-11-26] MEDS: LEVOTHYROXINE SODIUM 50 MCG TABLET PO SCH (05:35)
[2018-11-26] MEDS: INSULIN ASPART 100 UNITS/ML 3 ML PEN SC SCH ×4 (08:59→21:28)
[2018-11-26] MEDS: SEVELAMER HCL 800 MG TABLET PO SCH ×3 (09:01→17:23)
[2018-11-26] MEDS: AMIODARONE 200 MG TAB PO SCH ×2 (09:16→21:24)
[2018-11-26] MEDS: CLOPIDOGREL BISULFATE 75 MG TAB PO SCH (09:16)
[2018-11-26] MEDS: NEPHROCAPS PO SCH (09:16)
[2018-11-26] MEDS: ASPIRIN 81 MG ECTAB PO SCH (09:17)
[2018-11-26] MEDS: PANTOprazole 40 MG TAB PO SCH (09:17)
[2018-11-26] MEDS: NYSTATIN POWDER 15GM BTL EXT SCH ×2 (09:17→21:24)
[2018-11-26] MEDS: LIDOCAINE 5% 1 PATCH TD SCH (09:19)
[2018-11-26] MEDS: DOCUSATE SODIUM 100 MG CAP PO SCH ×2 (09:19→21:44)
--- NOTE | 2018-11-26 11:29 | Pharmacy Report ---
Glycemic Control Progress Note - Date of Service November 26, 2018 - Scope Glycemic Pharmacist consulted for glycemic control to write orders per [facility] inpatient glycemic control protocol. - Objective Accuchecks BSG(last 24 hours):: 11/25/18 11/25/18 11/25/18 11:19 16:23 20:16 POC Glucose 91 77 106 H 11/26/18 11/26/18 11/26/18 07:10 07:12 09:14 POC Glucose 66 L* 68 L* 76 - Recent Pertinent Medications The patient is currently receiving: * Basal insulin: Lantus 0 units every 12 hours * Correctional Insulin: Novolog Correction per scale ACHS Goal Range: Low 110 mg/dL - High 140 mg/dL Correction Factor: 30 mg/dL/unit * Prandial insulin: Per carb ratio of 1 unit per 15 grams CHO consumed * Oral Agents: - Outpatient Anti-Diabetic Meds lANTUS 15 UNITS AT BEDTIME + NOVOLOG - Assessment & Plan ASSESSMENT: * See progress note from 11/24/18 for more background info, in short: * Pt receiving SQ basal bolus insulin regimen for hyperglycemia secondary to baseline DM (outpatient regimen on hold). * Patient is currently receiving an average of 0 units of insulin per day * 0 units of basal insulin * 0 units of prandial/correctional insulin * BSGs ranging 77 - 106 mg/dl over the past 24hrs * Changes needed to insulin regimen: * AM Fasting BSG = 68 mg/dl. This is below goal range for patient based on inpatient targets and co-morbidities. Will discontinue basal insulin order. Patient has not received since PM of 11/24/18. * Post-prandial BSGs are controlled. Patient is not eating. * Total daily dose = <5 units. PLAN FOR INPATIENT GLYCEMIC CONTROL: * Discontinuing Lantus * Continuing correction factor of 30 mg/dl/unit * Continuing carb ratio of 1 unit per 15 grams CHO consumed * Increasing goal range to Low 120 mg/dL - High 160 mg/dL RECOMMENDATIONS FOR DISCHARGE: * Patient on hemodialysis so HbA1C is not reflective of glycemic control. Recommend following BGs logs and adjusting from there. * Please note that the plan above was derived based on current level of insulin resistance and hospital stress. These recommendations are appropriate for inpatient admission only. Plan of care upon discharge will need to be reassessed to avoid potential outpatient hypo/hyperglycemia. Thank you.
--- NOTE | 2018-11-26 12:38 | Hospitalist Progress Note ---
Date of Service November 26, 2018 Assessment & Plan (1) Hypotension: in the setting of A fib in RVR, ICM Cosyntropin test performed: negative Empiric vancomycin and Zosyn added, day 4 for possible infection Appreciate psychology associate input and recommended Has been on intravenous pressors and not been able to wean off Intravenous pressor agents have been off since last night Blood pressure is maintained at the lower end of normal Patient will be transferred to telemetry unit Systolic blood pressure has been around 100 since transfer from ICU and maintaining Clinically a lot better (2) Physical deconditioning: Disposition We will discuss with Arina If there is no improvement we will get palliative care involved Discussed with the niece and will have a palliative care consult tomorrow Appreciate palliative care input and recommendation Palliative care is going to have a meeting with the niece for further management options Appreciate palliative care input Further recommendation following meeting with the family members on Tuesday Await family meeting with palliative care and further recommendation (3) Ischemic cardiomyopathy: -Troponin on presentation 2.34, EKG does not show acute ST changes -Patient reporting chest pain however seems to be musculoskeletal in nature and not similar to anginal equivalent in the past -History of CAD, S/P KAROLINE to mid circumflex 02/2018 and BMS to circumflex 2015, chronic RCA occlusion -Case discussed with Dr. Venegas who advised initiating heparin drip however unable to at this time due to coagulopathy -Continue cycle cardiac enzymes, check resting echo -Continue aspirin and Plavix; beta-silvia and nitrate as BP allows; holding statin due to elevated LFTs -Heart rate remains stable -Still has volume overload-we will continue with hemodialysis (4) New onset a-fib: Patient converted to sinus rhythm Transitioned from IV to p.o. amiodarone Rate is controlled with oral amiodarone Denies any chest pain and/or palpitation Heart rate is controlled and denies any cardiac symptoms (5) Hypoxia: secondary to bilateral pleural effusion volume management per Nephro wean off O2 accordingly (6) Elevated troponin: possible NSTEMI Heparin unable to be started due to coagulopathy Cardiology consulted continued on medical therapy (7) CAD (coronary artery disease): (8) Abnormal LFTs: per Dr. Robles's notes Likely multifactorial Her ALT was highly elevated in August LFTs are elevated at this time likely secondary to hypoxia/drug- induced/hepatitis/fatty liver with cirrhosis No portal vein thrombosis on ultrasound Appreciate GI input and recommendation She has been on Mucomyst and will finish the course-Mucomyst has been stopped this morning on 11/12 LFTs have been improving Received vitamin K 5 mg orally yesterday LFTs improving and INR is 1.5 today Repeat LFTs shows improvement Ultrasound of the liver did not show any significant cirrhosis and/or fatty infiltration of the liver MRCP-unremarkable, a few gallstones but no obstruction and no biliary ductal dilatation Liver function is improved further Denies any abdominal pain but has nausea and vomited once LFTs remain stable but INR is elevated to 1.9 today Will need to have vitamin K if INR goes high INR is 1.4 today We will monitor LFTs and INR (9) Coagulopathy: per Dr. Robles's notes: -On admission, patient found to have elevated AST and ALT -Initial INR 1.9 with repeat being 2.6 -No history of hepatic disease in the past -? Shock liver from hypotension yesterday -GI consult, case discussed with Dr. Eduardo who advises obtaining hepatitis panel, CMV, EBV, HSV; trend LFTs and coags; started Mucomyst drip per protocol -Liver ultrasound with portal vein Doppler-negative for any thrombus INR management as noted above Will give vitamin K if INR remains high (10) History of right below knee amputation: -S/P right BKA on 10/[address] Jones Does not overtly appear to be infected, but vancomycin Zosyn started empirically Complains some pain at the stump but no obvious infection (11) Anemia associated with chronic renal failure: Hg stable (12) Eschar of finger: -Left second finger -Following with Dr. Pryor -No signs of active infection (13) ESRD (end stage renal disease) on dialysis: HD per Nephro Continue hemodialysis We will continue hemodialysis for now (14) DM type 2 (diabetes mellitus, type 2): -Hgb A1c 7.3 08/2018 -Lantus and NovoLog per protocol while hospitalized (15) GERD (gastroesophageal reflux disease): -Continue PPI (16) DVT prophylaxis: -None needed at this time, INR 2..2 -Received vitamin K and INR is 1.4 -We will provide SCD on the left side Subjective 11/22 Patient was seen and examined in ICU She was transferred to ICU with hypotension and A. fib with RVR Has been on pressors since transfer Heart rate remains controlled with amiodarone Remains very weak and lethargy 11/23 The patient was seen and examined in ICU She has been remaining very weak and lethargic and the blood pressure is not been controlled without the pressor Denies any chest pain and/or palpitation No shortness of breath at rest I had a long discussion with the niece this afternoon and the patient and herself was agreeable to have a palliative care consult. 11/24 The patient was seen and examined in ICU Remains very pale and lethargic Has been off pressors since last night Blood pressure has been maintaining to the morning We will transfer the patient to medical telemetry unit 11/25 She has been weak but little brighter today Denies any significant symptoms except weakness and mild shortness of breath at rest Her blood pressure has been more than 100 systolic 11/26 The patient was seen and examined in telemetry unit He has been feeling a lot better and remains stable Her blood pressure seems to be stable Physical Exam Vital Signs (Past 24 Hours): Last Vital Signs Temp 36.5 C 11/26/18 12:00 Pulse 77 11/26/18 12:00 Resp 16 11/26/18 12:00 BP 120/62 11/26/18 12:00 Pulse Ox 92 11/26/18 12:00 Physical Exam: No apparent distress at rest Constitutional: WD/WN, vitals as above well developed, + acute distress (Shortness of breath), + ill appearing, + obese and + edematous Eyes: PERRL, conjunctivae normal, anicteric sclerae ENMT: external ear and nose normal, oropharynx normal Respiratory: normal respiratory effort and + uses accessory muscles (Occasional) Auscultation: + diminished lung sounds and + crackles (Minimal crackles at the bases) Cardiovascular: Rate/Rhythm: + abnormal rate and + abnormal rhythm Vessels: normal peripheral pulses Extremities: + edema Gastrointestinal (Abdomen): Inspection/Auscultation: + abdomen distended and normal bowel sounds Percussion/Palpation: + abdomen tender (Mildly tender in the epigastrium) and abdomen soft Musculoskeletal: no cyanosis or clubbing, extremities motor strength 5/5 Extremities: + lower leg abnormality (Right AKA) Skin: no rashes, warm and dry Neurologic: PERRL, EOMI, accommodation nl, no face palsy, no dysarthria awake Remains generally weak Psychiatric: A+Ox3, euthymic affect Results & Data Medications Administered Current Inpatient Medications Amiodarone HCl (Cordarone) 200 mg PO BID [facility] Stop: 12/19/18 08:59 Last Admin: 11/26/18 09:16 Dose: 200 mg Documented by: Aspirin (Ecotrin Ectab) 81 mg PO QAM [facility] Stop: 12/11/18 08:59 Last Admin: 11/26/18 09:17 Dose: 81 mg Documented by: Clopidogrel Bisulfate (Plavix) 75 mg PO QAM [facility] Stop: 12/11/18 08:59 Last Admin: 11/26/18 09:16 Dose: 75 mg Documented by: Dextrose (Dextrose 50%) 25 - 50 ml IV UD PRN; Protocol PRN Reason: Hypoglycemia Protocol Stop: 12/10/18 16:09 Last Admin: 11/24/18 06:42 Dose: 25 ml Documented by: Docusate Sodium (Colace) 100 mg PO BID [facility] Stop: 12/10/18 20:59 Last Admin: 11/26/18 09:19 Dose: 100 mg Documented by: Gabapentin (Neurontin) 300 mg PO [facility] Stop: 12/10/18 20:59 Last Admin: 11/25/18 20:56 Dose: 300 mg Documented by: Glucagon (Glucagen) 1 mg SQ UD PRN; Protocol PRN Reason: Hypoglycemia Protocol Stop: 12/10/18 16:09 Glucose (Glucose 40%) 15 - 30 gm PO UD PRN; Protocol PRN Reason: Hypoglycemia Protocol Stop: 12/10/18 16:09 Glucose (Dex4 Glucose) 4 - 8 tabs PO UD PRN; Protocol PRN Reason: Hypoglycemia Protocol Stop: 12/10/18 16:09 Heparin Sodium (Beef Lung) (Heparin Sod 10 Unit/Ml Flush) 5 ml FLUSH PRN PRN PRN Reason: Flush Stop: 12/19/18 00:05 Last Admin: 11/25/18 22:00 Dose: 5 ml Documented by: Heparin Sodium (Porcine) (Heparin Sodium (Porcine)) 5,000 units SQ Q8 [facility] Stop: 12/19/18 13:59 Last Admin: 11/26/18 10:35 Dose: Not Given Documented by: Insulin Aspart (Novolog Flexpen) [address] [facility]; Protocol Stop: 04/21/19 16:29 Last Admin: 11/26/18 12:21 Dose: Not Given Documented by: Levalbuterol HCl (Xopenex 0.63 Mg/3 Ml Neb) 0.63 mg NEB Q4H PRN PRN Reason: Shortness Of Breath Or Wheezin Stop: 12/14/18 20:57 Last Admin: 11/14/18 22:13 Dose: 0.63 mg Documented by: Levothyroxine Sodium (Synthroid) 50 mcg PO DAILYBB [facility] Stop: 12/11/18 06:29 Last Admin: 11/26/18 05:35 Dose: 50 mcg Documented by: Lidocaine (Lidoderm 5%) 1 patch TD QAM [facility] Stop: 12/11/18 08:59 Last Admin: 11/26/18 09:19 Dose: Not Given Documented by: Magnesium Hydroxide (Milk Of Magnesia) 30 ml PO DAILY PRN PRN Reason: Constipation Stop: 12/10/18 16:00 Meclizine HCl (Antivert) 25 mg PO TID PRN PRN Reason: Dizziness Stop: 12/10/18 16:00 Miconazole Nitrate (Desenex) 1 appln EXT PRN PRN PRN Reason: Affected Skin Folds Stop: 12/17/18 10:49 Midodrine (Proamatine) 10 mg PO 0700,1100,1500,1900 [facility] Stop: 12/22/18 10:59 Last Admin: 11/26/18 12:19 Dose: 10 mg Documented by: Miscellaneous (Order Awaiting Action) 1 ea N/A QS [facility] Stop: 12/11/18 00:00 Last Admin: 11/26/18 10:37 Dose: Not Given Documented by: Miscellaneous (Remove Lidoderm Patch) 1 ea N/A DAILY@2100 [facility] Stop: 12/10/18 20:59 Last Admin: 11/25/18 21:02 Dose: Not Given Documented by: Miscellaneous (Carbohydrates For Hypoglycemia) 15 - 30 gm PO UD PRN PRN Reason: Hypoglycemia Treatment Stop: 12/10/18 16:09 Miscellaneous Information (Consult Glycemic Management Pharmacy) 1 ea N/A UD [facility] Stop: 12/24/18 09:07 Nystatin (Mycostatin) 1 appln EXT BID [facility] Stop: 12/10/18 20:59 Last Admin: 11/26/18 09:17 Dose: 1 appln Documented by: Ondansetron HCl (Zofran) 4 mg PO QID PRN PRN Reason: Nausea Stop: 12/10/18 16:00 Last Admin: 11/16/18 22:05 Dose: 4 mg Documented by: Oxycodone HCl (Roxicodone Immediate Rel) 5 mg PO Q6H PRN PRN Reason: Pain Stop: 12/04/18 08:55 Last Admin: 11/25/18 21:14 Dose: 5 mg Documented by: Pantoprazole Sodium (Protonix) 40 mg PO QAM [facility] Stop: 12/11/18 08:59 Last Admin: 11/26/18 09:17 Dose: 40 mg Documented by: Polyethylene Glycol (Miralax Powder Packet) 17 gm PO QDL PRN PRN Reason: Constipation Stop: 12/10/18 16:00 Senna/Docusate Sodium (Senokot S) 1 tab PO QDL PRN PRN Reason: Constipation Stop: 12/10/18 16:00 Sertraline HCl (Zoloft) 25 mg PO TODAY@2100 [facility] Stop: 12/15/18 20:59 Last Admin: 11/25/18 21:00 Dose: 25 mg Documented by: Sevelamer HCl (Renagel) 3,200 mg PO TIDM [facility] Stop: 12/10/18 16:59 Last Admin: 11/26/18 12:22 Dose: 3,200 mg Documented by: Vitamin B Complex/Folic Acid ([facility]) [facility] [place]: 12/11/18 08:59 Last Admin: 11/26/18 09:16 Dose: 1 cap Documented by: (1) CAD (coronary artery disease) Coronary Disease-Associated Artery/Lesion type: [place] artery [place] vs. 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
[2018-11-26] MEDS: GABAPENTIN 300 MG CAP PO SCH (21:25)
[2018-11-26] MEDS: SERTRALINE HCL 50 MG TABLET PO SCH (21:26)
[2018-11-26] MEDS: DOCUSATE SODIUM/SENNA 50/8.6MG TAB PO PRN (21:44)
[2018-11-27] MEDS: LEVOTHYROXINE SODIUM 50 MCG TABLET PO SCH (06:00)
[2018-11-27] MEDS: HEPARIN SOD 5,000 UNIT/0.5 ML VIAL SQ SCH ×3 (06:00→20:12)
[2018-11-27 06:36] LABS: Basophils # (auto) 0.06 K/uL (0-0.2); Basophils % (auto) 0.9 %; Eosinophils # (auto) 0.23 K/uL (0-0.5); Eosinophils % (auto) 3.6 %; Hematocrit (blood only) 32.3 % (37-47); Hemoglobin 9.4 g/dL (12.0-16.0); Immature Granulocytes # (auto) 0.01 K/uL (0.00-0.02); Immature Granulocytes % (auto) 0.2 %; Lymphocytes # (auto) 1.58 K/uL (1.2-3.4); Lymphocytes % (auto) 24.6 %; Mean Corpuscular Hgb Conc 29.1 g/dL (32-36); Mean Platelet Volume 9.9 fL (7.4-10.4); Monocytes # (auto) 0.83 K/uL (0.11-0.59); Monocytes % (auto) 12.9 %; Neutrophils # (auto) 3.71 K/uL (1.4-6.5); Neutrophils % (auto) 57.8 %; Platelet Count 296 K/uL (130-400); RDW Coefficient of Variation 22.2 % (11.5-14.5); RDW Standard Deviation 69.6 fL (36.4-46.3); Red Blood Count 3.67 M/uL (4.2-5.4); White Blood Count 6.42 K/uL (4.8-10.8)
[2018-11-27 06:45] LABS: INR 1.4 (0.9-1.1); Prothrombin Time 14.1 Seconds (9.0-12.0)
[2018-11-27 06:56] LABS: Albumin Level 2.1 gm/dl (3.4-5.0); BUN Creatinine Ratio 5.9 (10-20); Calcium 9.4 mg/dl (8.5-10.1); Creatinine Clr Calc Pharmacy 19.4 ml/min; Est GFR (African American) 13.5; Est GFR (Non-African American) 11.6; Magnesium 2.4 mg/dl (1.8-2.4); Potassium 3.5 mmol/L (3.5-5.1)
[2018-11-27 06:59] LABS: Bilirubin,Total 1.4 mg/dl (0.2-1); Total Protein 7.2 gm/dl (6.4-8.2)
[2018-11-27 07:18] LABS: Anisocytosis Present; Target Cells 1+
--- NOTE | 2018-11-27 08:16 | Pharmacy Report ---
Pharmacy Glycemic Short Note 2 - Date of Service November 27, 2018 - Glycemic Short BSG Results (Last 24 hours): 11/26/18 11/26/18 11/26/18 09:14 11:20 16:27 Glucose POC Glucose 76 78 116 H 11/26/18 11/27/18 11/27/18 20:24 05:59 07:46 Glucose 111 H POC Glucose 110 H 120 H OUTPATIENT ANTIDIABETIC REGIMEN: * Lantus 15 units Q HS * Novolog per sliding scale * A1c = not checked this admission due to h/o ESRD ASSESSMENT: 11/27 * Ms. Gilbert received zero units of insulin yesterday, with BSGs ranging from 66-120 mg/dL in the past 24 hours * Last dose of basal (5 units) was 4/5 PM * PO intake remains poor * Fasting is much improved today so will consider resuming small dose of basal, but will wait until lunch BSG to determine if this will be the case * -> lunch BSG remains stable at 128 mg/dL. No CHO consumption documented w/ breakfast. Will continue to hold off on basal until BSGs consistently above goal PLAN FOR INPATIENT GLYCEMIC CONTROL: * Basal insulin * Continue to hold until BSGs consistently above goal * Bolus insulin - no change * NovoLog per scale ACHS or Q6hrs while NPO * Goal Range: Low 120 mg/dL - High 160 mg/dL * Correction Factor: 30 mg/dL/unit * Nutritional / Prandial insulin per carb ratio of 1 unit per 15 grams CHO consumed PLAN FOR DISCHARGE: * If po intake remains poor, consider holding or reducing Lantus to only 5 units qHS * If po intake improves, may still want to consider reducing Lantus to 10 units qHS (noted some low BSGs on outpatient records)
[2018-11-27] MEDS: INSULIN ASPART 100 UNITS/ML 3 ML PEN SC SCH ×4 (09:00→20:11)
[2018-11-27] MEDS: SEVELAMER HCL 800 MG TABLET PO SCH ×4 (09:02→19:07)
[2018-11-27] MEDS: MIDODRINE HCL 10 MG TAB PO SCH ×5 (09:02→20:18)
[2018-11-27] MEDS: AMIODARONE 200 MG TAB PO SCH ×2 (09:04→20:18)
[2018-11-27] MEDS: CLOPIDOGREL BISULFATE 75 MG TAB PO SCH (09:04)
[2018-11-27] MEDS: NYSTATIN POWDER 15GM BTL EXT SCH ×2 (09:04→20:18)
[2018-11-27] MEDS: NEPHROCAPS PO SCH (09:04)
[2018-11-27] MEDS: LIDOCAINE 5% 1 PATCH TD SCH (09:05)
[2018-11-27] MEDS: PANTOprazole 40 MG TAB PO SCH (09:05)
[2018-11-27] MEDS: ASPIRIN 81 MG ECTAB PO SCH (09:05)
[2018-11-27] MEDS: DOCUSATE SODIUM/SENNA 50/8.6MG TAB PO PRN (09:07)
--- NOTE | 2018-11-27 10:23 | Palliative Care Progress Note ---
Date of Service November 27, 2018 Assessment & Plan (1) Palliative care encounter: -I met with patient, patient elizabeth Allen and patients Pastor Shah in room 232. Patient was sitting upright in her bed, appearing less lethargic and having more energy than on Tuesday. -The patient did remember meeting me on Tuesday and what the content of our conversation was. -We discussed the patients goals and she has two main goals. One goal is to live until her birthday which is tomorrow. The other is to see her daughter who is incarcerated again. The elizabeth did speak again with the senior living and they stated that she can come to the hospital with a guard for $550.00, which they are working on obtaining. -We did confirm that she will remain a DNR/DNI. -We discussed dicision making regarding stopping dialysis - she stated that as of today, she would like to continue with dialysis upon discharge to the [facility], which likely will take place by mid-week. -We discussed setting a biweekly discussion with pt elizabeth and medical team at [facility] to readdress the patients comfort level and quality of life while on hemodialysis as she may want to discontinue hemodialysis should she become increasingly confusued and weak for continued treatments. -We completed a POLST form with the following: DNR/DNI, limited intervention with returning to the hospital for monitoring and medications, including inotropic medications in an ICU, a trial of antibiotics and a trial of tube feedings. Education was provided on the above. The POLST was placed on the chart, and, in addition, the bi-weekly readdressing of hemodialysis was written in as one of the patients goals once discharged. -She did state that should she decline and require pressors again, she would be willing to escalate again to inotropic support. -I did express that the patient was relatively clear today; however, had some bouts of confusion with names, etc; therefore, I think that it is best to have Alejandro involved for all decision making and the patient did agree to this. -Palliative Performance Scale: 30% (2) PAF (paroxysmal atrial fibrillation): -Managed by Hospitalists -Spontaneously converted to NSR -Remains on PO Amiodarone and B-Dominique (3) History of right below knee amputation: -Continues to be in rehabilitation state -Recent surgery and D/C to [facility] 11/10 -[place] remain intact -Plan for [facility] post stablization and D/C (4) Anemia associated with chronic renal failure: -Managed by Hospitalists and Nephrology -Receiving HD M// and this will continue once D/C - patient will go to [facility] for HD -BUN 23 Creatinine 3.75 GFR 13.2 -Last HD was 11/25/18 with ~3L removed Subjective Patient increasingly awake today compared to my last encounter on Tuesday. Patient denies pain and feels like she has more energy today Patient states she has an appetite but her inconsistent BM's make her 'not want to eat' Patient denies NELSON, dizziness, N/V, chest pain, palpitations Physical Exam Vital Signs (Past 24 Hours): Last Vital Signs Temp 36.5 C 11/27/18 07:40 Pulse 72 11/27/18 07:40 Resp 18 11/27/18 07:40 BP 124/82 11/27/18 07:40 Pulse Ox 97 11/27/18 07:40 Constitutional: + ill appearing and cooperative; not lethargic Eyes: PERRL, conjunctivae normal, anicteric sclerae Neck: trachea midline, no thyromegaly Respiratory: Auscultation: + diminished lung sounds Cardiovascular: RRR, no murmur, no edema (spontenously converted to NSR) Gastrointestinal (Abdomen): Inspection/Auscultation: normal bowel sounds and + significant pannus Percussion/Palpation: abdomen soft Skin: normal turgor Psychiatric: A+Ox3, euthymic affect Eye Contact: good eye contact Insight: good insight Judgement: good judgement Time Spent Midlevel total time spent 100 minutes with > 50% of that time spent reviewing the chart, assessing the patient, holding a family meeting with the patient, patient niece (POA) discussing goals of care, along with discharge planning.
[2018-11-27] MEDS: DOCUSATE SODIUM 100 MG CAP PO SCH ×2 (13:05→20:18)
--- NOTE | 2018-11-27 18:09 | Nephrology Progress Note ---
Date of Service November 27, 2018 Assessment & Plan (1) ESRD (end stage renal disease) on dialysis: ESRD patient on HD TTS. Next HD tomorrow for 4hrs on 3k bath, target UF 2.5litres- uf as tolerated; -cont BB and midodrine as needed -based on 11/23 iron studies >> 50 mg venofer w/ HD once weekly q thurs -low dose epo today -binders also continued when taking po reliably -palliative care documentation noted Subjective ESRD pt seen in f/u. She reports improvement in her breathing. She remains weak. SHe had nausea and feeling bloated which limits her ability to eat. Dialysis going well. She is agreeable to HD tomorrow Review of Systems All systems reviewed & are unremarkable except as noted in HPI & below Physical Exam Vital Signs (Past 24 Hours): Last Vital Signs Temp 36.9 C 11/27/18 15:07 Pulse 93 H 11/27/18 15:07 Resp 20 11/27/18 15:07 BP 115/52 L 11/27/18 15:07 Pulse Ox 98 11/27/18 15:07 Physical Exam: General exam: Appears comfortable, no acute distress HEENT: Pupils are equal and reactive to light Neck: No JVD, neck is supple trachea is midline Respiratory system: crackles bilaterally. Gastrointestinal: Abdomen is soft, non distended, non tender, bowel sounds are present CVS: Regular rate and rhythm. No murmurs, rubs or gallops Musculoskeletal: No joint or muscle tenderness Extremities: Non tender, no edema, peripheral pulses are present. right BKA Neuro: Oriented, no tremors, no focal neurological deficits Skin: No rashes Results & Data Laboratory Results k 3.5, cr 4.1, hb 9.4
[2018-11-27] MEDS: SERTRALINE HCL 50 MG TABLET PO SCH (20:19)
[2018-11-27] MEDS: GABAPENTIN 300 MG CAP PO SCH (20:19)
[2018-11-28] MEDS: HEPARIN SOD 5,000 UNIT/0.5 ML VIAL SQ SCH ×3 (06:06→22:05)
[2018-11-28] MEDS: LEVOTHYROXINE SODIUM 50 MCG TABLET PO SCH (06:07)
[2018-11-28] MEDS: MIDODRINE HCL 10 MG TAB PO SCH ×3 (06:08→17:08)
[2018-11-28] MEDS ORDERED: SODIUM CHLORIDE 0.9% 1000ML 1,000 ML IV PRN (07:00)
[2018-11-28] MEDS ORDERED: EPOETIN ALFA 10,000 UNITS/ML VIAL IV ONE (07:00)
[2018-11-28] MEDS: NYSTATIN POWDER 15GM BTL EXT SCH ×2 (08:27→22:05)
[2018-11-28] MEDS: ASPIRIN 81 MG ECTAB PO SCH (08:27)
[2018-11-28] MEDS: SEVELAMER HCL 800 MG TABLET PO SCH ×3 (08:27→17:08)
[2018-11-28] MEDS: PANTOprazole 40 MG TAB PO SCH (08:27)
[2018-11-28] MEDS: NEPHROCAPS PO SCH (08:28)
[2018-11-28] MEDS: AMIODARONE 200 MG TAB PO SCH ×2 (08:28→22:04)
[2018-11-28] MEDS: CLOPIDOGREL BISULFATE 75 MG TAB PO SCH (08:28)
[2018-11-28] MEDS: LIDOCAINE 5% 1 PATCH TD SCH (08:29)
[2018-11-28] MEDS: INSULIN ASPART 100 UNITS/ML 3 ML PEN SC SCH ×4 (08:30→22:28)
[2018-11-28] MEDS: DOCUSATE SODIUM 100 MG CAP PO SCH ×2 (08:41→22:24)
[2018-11-28] MEDS: DOCUSATE SODIUM/SENNA 50/8.6MG TAB PO PRN ×2 (08:41→22:25)
--- NOTE | 2018-11-28 11:16 | Pharmacy Report ---
Pharmacy Glycemic Short Note 2 - Date of Service November 28, 2018 - Glycemic Short BSG Results (Last 24 hours): 11/27/18 11/27/18 11/27/18 12:24 16:05 20:08 POC Glucose 128 H 120 H 132 H 11/28/18 07:47 POC Glucose 106 H OUTPATIENT ANTIDIABETIC REGIMEN: * Lantus 15 units Q HS * Novolog per sliding scale * A1c = not checked this admission due to h/o ESRD ASSESSMENT: 11/28 * Ms. Gilbert received 4 units of insulin yesterday, all CHO coverage. Total CHO not documented but po intake still seems to be poor * Fasting BSG = 106; no indication to resume basal yet * Postprandial BSGs all below goal, even with increased po intake 11/27 * Ms. Gilbert received zero units of insulin yesterday, with BSGs ranging from 66-120 mg/dL in the past 24 hours * Last dose of basal (5 units) was 4/5 PM * PO intake remains poor * Fasting is much improved today so will consider resuming small dose of basal, but will wait until lunch BSG to determine if this will be the case * -> lunch BSG remains stable at 128 mg/dL. No CHO consumption documented w/ breakfast. Will continue to hold off on basal until BSGs consistently above goal PLAN FOR INPATIENT GLYCEMIC CONTROL: * Basal insulin * Continue to hold until fasting BSGs consistently above goal * Bolus insulin - no change * NovoLog per scale ACHS or Q6hrs while NPO * Goal Range: Low 120 mg/dL - High 160 mg/dL * Correction Factor: 30 mg/dL/unit * Nutritional / Prandial insulin per carb ratio of 1 unit per 15 grams CHO consumed PLAN FOR DISCHARGE: * If po intake remains poor, consider holding or reducing Lantus to only 5 units qHS * If po intake improves, may still want to consider reducing Lantus to 10 units qHS (noted some low BSGs on outpatient records)
--- NOTE | 2018-11-28 16:16 | Consultation Report ---
DATE OF CONSULTATION: 11/28/2018 HISTORY OF PRESENT ILLNESS: The patient is a 53-year-old white female who were asked to see regarding a left index finger. The patient has a 1.5 x 1 cm eschar. She previously had some bioabsorbable sutures placed by Dr. Pryor greater than 2 weeks prior. I inspected the wound today. She has a dry 1.5 x 1 cm eschar, no evidence of fluctuance, no evidence of cellulitis noted. At this point, really nothing needs to be done with this, I would keep a dry dressing for currently. We will follow along with you for further recommendations as continued healing occurs. ASSESSMENT: 1.5 x 1 cm eschar, volar aspect, distal interphalangeal volar pad, left index finger. PLAN: For continued observation and debridement if necessary.
--- NOTE | 2018-11-28 17:45 | Hospitalist Progress Note ---
Date of Service November 28, 2018 delayed entry date of service 11/27/18 Assessment & Plan (1) Hypotension: in the setting of A fib in RVR, ICM Cosyntropin test performed: negative Empiric vancomycin and Zosyn given x6 days for possible infection Has been weaned off Isreal-Synephrine Blood pressure has been stable for the past couple of days in telemetry Continue to monitor closely (2) Physical deconditioning: Disposition PT OT in progress Patient anticipated to transition to care home facility upon discharge Palliative care team consulted, POLST form completed, patient would like to pursue present medical management at this time (3) Ischemic cardiomyopathy: -Troponin on presentation 2.34, EKG does not show acute ST changes -Patient reporting chest pain however seems to be musculoskeletal in nature and not similar to anginal equivalent in the past -History of CAD, S/P KAROLINE to mid circumflex 02/2018 and BMS to circumflex 2015, chronic RCA occlusion -Case discussed with Dr. Venegas who advised initiating heparin drip however unable to at this time due to coagulopathy ACS ruled out -Continue aspirin and Plavix; beta-silvia and nitrate as BP allows; holding statin due to elevated LFTs Management per nephrology via hemodialysis (4) New onset a-fib: Patient converted to sinus rhythm Transitioned from IV to p.o. amiodarone Rate is controlled with oral amiodarone Sinus rhythm, heart rate controlled (5) Hypoxia: secondary to bilateral pleural effusion volume management per Nephro wean off O2 accordingly (6) Elevated troponin: possible NSTEMI Heparin unable to be started due to coagulopathy Cardiology consulted continued on medical therapy (7) CAD (coronary artery disease): Management as noted above (8) Abnormal LFTs: per Dr. Robles's notes Likely multifactorial Her ALT was highly elevated in August LFTs are elevated at this time likely secondary to hypoxia/drug- induced/hepatitis/fatty liver with cirrhosis No portal vein thrombosis on ultrasound Appreciate GI input and recommendation She has been on Mucomyst and will finish the course-Mucomyst has been stopped this morning on 11/12 LFTs have been improving Received vitamin K 5 mg orally yesterday LFTs improving and INR is 1.5 today Repeat LFTs shows improvement Ultrasound of the liver did not show any significant cirrhosis and/or fatty infiltration of the liver MRCP-unremarkable, a few gallstones but no obstruction and no biliary ductal dilatation Liver function is improved further Denies any abdominal pain but has nausea and vomited once LFTs remain stable but INR is elevated to 1.9 today Will need to have vitamin K if INR goes high INR is 1.4 today We will monitor LFTs and INR INR remains 1.4 No signs of bleeding Continue to monitor closely (9) Coagulopathy: per Dr. Robles's notes: -On admission, patient found to have elevated AST and ALT -Initial INR 1.9 with repeat being 2.6 -No history of hepatic disease in the past -? Shock liver from hypotension yesterday -GI consult, case discussed with Dr. Eduardo who advises obtaining hepatitis panel, CMV, EBV, HSV; trend LFTs and coags; started Mucomyst drip per protocol -Liver ultrasound with portal vein Doppler-negative for any thrombus INR management as noted above Will give vitamin K if INR remains high (10) History of right below knee amputation: -S/P right BKA on 10/[address] Jones Given vancomycin plus Zosyn x6 days Surgical wound looks significantly improved since initiation of antibiotics Continue to monitor closely, wound care daily (11) Anemia associated with chronic renal failure: Hg stable (12) Eschar of finger: -Left second finger -Following with Dr. Pryor -No signs of active infection We will consult orthopedic service (13) ESRD (end stage renal disease) on dialysis: HD per Nephro Continue hemodialysis We will continue hemodialysis for now (14) DM type 2 (diabetes mellitus, type 2): -Hgb A1c 7.3 08/2018 -Lantus and NovoLog per protocol while hospitalized (15) GERD (gastroesophageal reflux disease): -Continue PPI (16) DVT prophylaxis: INR 1.4 We will avoid anticoagulation as patient is coagulopathy Subjective ff up for hypotension, a fib Seen sitting up in bed, comfortable, in good spirits States she feels fine overall Appetite improving Denies shortness of breath, chest pain, nausea, dizziness Has some tenderness to the left index finger Right BKA without pain or tenderness No other symptoms Physical Exam Vital Signs (Past 24 Hours): Last Vital Signs Temp 36.8 C 11/28/18 15:15 Pulse 70 11/28/18 15:15 Resp 20 11/28/18 15:15 BP 122/81 11/28/18 15:15 Pulse Ox 100 11/28/18 15:15 Physical Exam: General- oriented x 3, not in distress, speaks in sentences with no effort or accessory muscle use Eyes- anicteric Neck- no JVD Lungs- clear breath sounds bilaterally, no rales/wheezes Heart- normal rate, regular rhythm; no murmurs Abdomen- normal bowel sounds, nondistended, soft, nontender Extremities-right BKA: No edema, no erythema, wound healing well, scabs noted, s taples in place Left lower extremity: No pretibial edema, no calf tenderness Left index finger: Eschar noted, with tenderness, no discharge, no surrounding erythema or edema Neuro- alert, oriented x 3; no gross focal neurologic deficits Skin- warm & dry Results & Data Laboratory Results Noted, reviewed (1) CAD (coronary artery disease) Coronary Disease-Associated Artery/Lesion type: [place] artery [place] vs. 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
--- NOTE | 2018-11-28 17:51 | Hospitalist Progress Note ---
Date of Service November 28, 2018 Assessment & Plan (1) Hypotension: in the setting of A fib in RVR, ICM Cosyntropin test performed: negative Empiric vancomycin and Zosyn given x6 days for possible infection Has been weaned off Isreal-Synephrine Blood pressure has been stable for the past couple of days in telemetry Transfer to medical surgical floor today (2) Physical deconditioning: PT OT in progress Patient anticipated to [facility] to [facility] facility upon discharge Palliative care team consulted, POLST form completed, patient would like to pursue present medical management at this time Overall strength improving, will need continued PT and OT evaluations and treatment (3) Ischemic cardiomyopathy: -Troponin on presentation 2.34, EKG does not show acute ST changes -Patient reporting chest pain however seems to be musculoskeletal in nature and not similar to anginal equivalent in the past -History of CAD, S/P KAROLINE to mid circumflex 02/2018 and BMS to circumflex 2015, chronic RCA occlusion -Case discussed with Dr. Venegas who advised initiating heparin drip however unable to at this time due to coagulopathy ACS ruled out -Continue aspirin and Plavix; beta-silvia and nitrate as BP allows; holding statin due to elevated LFTs Management per nephrology via hemodialysis (4) New onset a-fib: Patient converted to sinus rhythm Transitioned from IV to p.o. amiodarone Rate is controlled with oral amiodarone Sinus rhythm, heart rate controlled (5) Hypoxia: secondary to bilateral pleural effusion volume management per Nephro wean off O2 accordingly (6) Elevated troponin: possible NSTEMI Heparin unable to be started due to coagulopathy Cardiology consulted continued on medical therapy (7) CAD (coronary artery disease): Management as noted above (8) Abnormal LFTs: per Dr. Robles's notes Likely multifactorial Her ALT was highly elevated in August LFTs are elevated at this time likely secondary to hypoxia/drug- induced/hepatitis/fatty liver with cirrhosis No portal vein thrombosis on ultrasound Appreciate GI input and recommendation She has been on Mucomyst and will finish the course-Mucomyst has been stopped this morning on 11/12 LFTs have been improving Received vitamin K 5 mg orally yesterday LFTs improving and INR is 1.5 today Repeat LFTs shows improvement Ultrasound of the liver did not show any significant cirrhosis and/or fatty infiltration of the liver MRCP-unremarkable, a few gallstones but no obstruction and no biliary ductal dilatation Liver function is improved further Denies any abdominal pain but has nausea and vomited once LFTs remain stable but INR is elevated to 1.9 today Will need to have vitamin K if INR goes high INR is 1.4 today We will monitor LFTs and INR INR remains 1.4 No signs of bleeding Continue to monitor closely (9) Coagulopathy: per Dr. Robles's notes: -On admission, patient found to have elevated AST and ALT -Initial INR 1.9 with repeat being 2.6 -No history of hepatic disease in the past -? Shock liver from hypotension yesterday -GI consult, case discussed with Dr. Eduardo who advises obtaining hepatitis panel, CMV, EBV, HSV; trend LFTs and coags; started Mucomyst drip per protocol -Liver ultrasound with portal vein Doppler-negative for any thrombus INR management as noted above Will give vitamin K if INR remains high (10) History of right below knee amputation: -S/P right BKA on 10/[address] Jones Given vancomycin plus Zosyn x6 days Surgical wound looks significantly improved since initiation of antibiotics Continue to monitor closely, wound care daily (11) Anemia associated with chronic renal failure: Hg stable (12) Eschar of finger: -Left second finger -Following with Dr. Pryor -No signs of active infection We will consult orthopedic service (13) ESRD (end stage renal disease) on dialysis: HD per Nephro Continue hemodialysis We will continue hemodialysis for now (14) DM type 2 (diabetes mellitus, type 2): -Hgb A1c 7.3 08/2018 -Lantus and NovoLog per protocol while hospitalized (15) GERD (gastroesophageal reflux disease): -Continue PPI (16) DVT prophylaxis: INR 1.4 We will avoid anticoagulation as patient is coagulopathy Subjective ff up for hypotension, a fib Exam exam comfortable, nondistressed Status post hemodialysis today She feels tired but otherwise feels fine overall Denies shortness of breath, chest pain, palpitations, dizziness No fevers or chills, nausea Denies pain on the right BKA site Mild pain on finger no other symptoms Physical Exam Vital Signs (Past 24 Hours): Last Vital Signs Temp 36.8 C 11/28/18 15:15 Pulse 70 11/28/18 15:15 Resp 20 11/28/18 15:15 BP 122/81 11/28/18 15:15 Pulse Ox 100 11/28/18 15:15 Physical Exam: General- oriented x 3, not in distress, speaks in sentences with no effort or accessory muscle use Eyes- anicteric Neck- no JVD Lungs- clear BS bilaterally Heart- normal rate, regular rhythm; no murmurs Abdomen- normal bowel sounds, nondistended, soft, nontender Extremities-right lower extremity: Surgical wound healing well, petra in place, no bleeding, no discharge, no erythema edema no pretibial edema, no calf tenderness Neuro- alert, oriented x 3; no gross focal neurologic deficits Skin- warm & dry Results & Data Laboratory Results Noted, reviewed (1) CAD (coronary artery disease) Coronary Disease-Associated Artery/Lesion type: [place] artery [place] vs. 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
--- NOTE | 2018-11-28 20:26 | Nephrology Progress Note ---
Date of Service November 28, 2018 Assessment & Plan (1) ESRD (end stage renal disease) on dialysis: ESRD patient on HD TTS. Patient seen on HD this moring. She tolerated HD well today for 4hrs on 3k bath. Next HD . -cont BB and midodrine as needed -based on 11/23 iron studies >> 50 mg venofer w/ HD once weekly q -Got epo today -binders also continued when taking po reliably -palliative care documentation noted Subjective ESRD pt seen in f/u. She reports improvement in her breathing. She was seen and examined on dialysis this morning. She is tolerating HD well. Review of Systems All systems reviewed & are unremarkable except as noted in HPI & below Constitutional: + fatigue and + weakness Respiratory: as per Subjective / HPI, + pain on inspiration and + pain with cough Cardiovascular: as per Subjective / HPI; no dyspnea, no palpitations and no edema Gastrointestinal: + abdominal pain (some RUQ and R chest); no vomiting and no change in bowel habits Musculoskeletal: + muscle weakness Integumentary: + non-healing lesions Neurologic: + generalized weakness; no confusion and no memory loss Psychiatric: + depression Endocrine: + fatigue Physical Exam Vital Signs (Past 24 Hours): Last Vital Signs Temp 37.1 C 11/28/18 19:38 Pulse 71 11/28/18 19:38 Resp 18 11/28/18 19:38 BP 102/71 11/28/18 19:38 Pulse Ox 97 11/28/18 19:38 Physical Exam: General exam: Appears comfortable, no acute distress HEENT: Pupils are equal and reactive to light Neck: No JVD, neck is supple trachea is midline Respiratory system: Clear breath sounds bilaterally. Gastrointestinal: Abdomen is soft, non distended, non tender, bowel sounds are present CVS: Regular rate and rhythm. No murmurs, rubs or gallops Musculoskeletal: No joint or muscle tenderness Extremities: Non tender, no edema, peripheral pulses are present Neuro: Oriented, no tremors, no focal neurological deficits Skin: No rashes Access: left UA AVF with good bruit
[2018-11-28] MEDS: SERTRALINE HCL 50 MG TABLET PO SCH (22:03)
[2018-11-28] MEDS: GABAPENTIN 300 MG CAP PO SCH ×2 (22:04→22:24)
[2018-11-29] MEDS: ONDANSETRON 4 MG TAB PO PRN ×2 (00:41→10:53)
[2018-11-29] MEDS: HEPARIN SOD 5,000 UNIT/0.5 ML VIAL SQ SCH ×3 (06:09→20:55)
[2018-11-29] MEDS: LEVOTHYROXINE SODIUM 50 MCG TABLET PO SCH (06:34)
[2018-11-29] MEDS: SEVELAMER HCL 800 MG TABLET PO SCH ×4 (09:05→17:48)
[2018-11-29] MEDS: AMIODARONE 200 MG TAB PO SCH ×2 (09:06→20:53)
[2018-11-29] MEDS: PANTOprazole 40 MG TAB PO SCH (09:06)
[2018-11-29] MEDS: NEPHROCAPS PO SCH (09:06)
[2018-11-29] MEDS: CLOPIDOGREL BISULFATE 75 MG TAB PO SCH (09:06)
[2018-11-29] MEDS: NYSTATIN POWDER 15GM BTL EXT SCH ×2 (09:07→20:54)
[2018-11-29] MEDS: MIDODRINE HCL 10 MG TAB PO SCH ×3 (09:07→14:27)
[2018-11-29] MEDS: LIDOCAINE 5% 1 PATCH TD SCH (09:07)
[2018-11-29] MEDS: ASPIRIN 81 MG ECTAB PO SCH (09:07)
[2018-11-29] MEDS: INSULIN ASPART 100 UNITS/ML 3 ML PEN SC SCH ×4 (09:09→20:54)
[2018-11-29] MEDS: DOCUSATE SODIUM/SENNA 50/8.6MG TAB PO PRN (09:13)
[2018-11-29] MEDS: DOCUSATE SODIUM 100 MG CAP PO SCH ×2 (09:13→20:57)
[2018-11-29] MEDS: PROMETHAZINE HCL 12.5 MG in SODIUM CHLORIDE 0.9% 50 ML IV PRN ×2 (12:01→21:15)
--- NOTE | 2018-11-29 19:22 | Nephrology Progress Note ---
Date of Service November 29, 2018 Assessment & Plan (1) ESRD (end stage renal disease) on dialysis: ESRD patient on HD TTS. Patient seen during rounds this morning. She tolerated HD well yesterday for 4hrs on 3k bath. Next HD . Patient interested in HD tomorrow. -cont BB and midodrine as needed -based on 11/23 iron studies >> 50 mg venofer w/ HD once weekly q -Got epo today -binders also continued when taking po reliably -palliative care documentation noted Subjective ESRD pt seen during rounds this morning in f/u. She reports improvement in her breathing. She tolerated HD well yesterday. She is interested in doing HD tomorrow as well. She remains weak. No vomiting or diarrhoea. She is constipated. Review of Systems All systems reviewed & are unremarkable except as noted in HPI & below Physical Exam Vital Signs (Past 24 Hours): Last Vital Signs Temp 36.5 C 11/29/18 15:49 Pulse 71 11/29/18 15:49 Resp 18 11/29/18 15:49 BP 104/67 11/29/18 15:49 Pulse Ox 96 11/29/18 15:49 Physical Exam: General exam: Appears comfortable, no acute distress HEENT: Pupils are equal and reactive to light Neck: No JVD, neck is supple trachea is midline Respiratory system: Clear breath sounds bilaterally. Gastrointestinal: Abdomen is soft, non distended, non tender, bowel sounds are present CVS: Regular rate and rhythm. No murmurs, rubs or gallops Musculoskeletal: No joint or muscle tenderness Extremities: Non tender, no edema, peripheral pulses are present. right BKA Neuro: Oriented, no tremors, no focal neurological deficits Skin: No rashes Access: AVF with good bruit
[2018-11-29] MEDS: SERTRALINE HCL 50 MG TABLET PO SCH (20:53)
--- NOTE | 2018-11-30 00:02 | Hospitalist Progress Note ---
Date of Service November 30, 2018 delayed entry date of service 11/29 Assessment & Plan (1) Hypotension: in the setting of A fib in RVR, ICM Cosyntropin test performed: negative Empiric vancomycin and Zosyn given x6 days for possible infection Has been weaned off Isreal-Synephrine --BP on the lower side this time Continue to monitor closely (2) Physical deconditioning: PT OT in progress Patient anticipated to transition to retirement facility upon discharge Palliative care team consulted, POLST form completed, patient would like to pursue present medical management at this time --PT OT in progress (3) Ischemic cardiomyopathy: -Troponin on presentation 2.34, EKG does not show acute ST changes -Patient reporting chest pain however seems to be musculoskeletal in nature and not similar to anginal equivalent in the past -History of CAD, S/P KAROLINE to mid circumflex 02/2018 and BMS to circumflex 2015, chronic RCA occlusion -Case discussed with Dr. Venegas who advised initiating heparin drip however unable to at this time due to coagulopathy ACS ruled out -Continue aspirin and Plavix; beta-silvia and nitrate as BP allows; holding statin due to elevated LFTs Management per nephrology via hemodialysis (4) New onset a-fib: Patient converted to sinus rhythm Transitioned from IV to p.o. amiodarone Rate is controlled with oral amiodarone Sinus rhythm, heart rate controlled (5) Hypoxia: secondary to bilateral pleural effusion volume management per Nephro wean off O2 accordingly (6) Elevated troponin: possible NSTEMI Heparin unable to be started due to coagulopathy Cardiology consulted continued on medical therapy (7) CAD (coronary artery disease): Management as noted above (8) Abnormal LFTs: per Dr. Robles's notes Likely multifactorial Her ALT was highly elevated in August LFTs are elevated at this time likely secondary to hypoxia/drug- induced/hepatitis/fatty liver with cirrhosis No portal vein thrombosis on ultrasound Appreciate GI input and recommendation She has been on Mucomyst and will finish the course-Mucomyst has been stopped this morning on 11/12 LFTs have been improving Received vitamin K 5 mg orally yesterday LFTs improving and INR is 1.5 today Repeat LFTs shows improvement Ultrasound of the liver did not show any significant cirrhosis and/or fatty infiltration of the liver MRCP-unremarkable, a few gallstones but no obstruction and no biliary ductal dilatation Liver function is improved further Denies any abdominal pain but has nausea and vomited once LFTs remain stable but INR is elevated to 1.9 today Will need to have vitamin K if INR goes high INR is 1.4 today We will monitor LFTs and INR INR remains 1.4 No signs of bleeding Continue to monitor closely (9) Coagulopathy: per Dr. Robles's notes: -On admission, patient found to have elevated AST and ALT -Initial INR 1.9 with repeat being 2.6 -No history of hepatic disease in the past -? Shock liver from hypotension yesterday -GI consult, case discussed with Dr. Eduardo who advises obtaining hepatitis panel, CMV, EBV, HSV; trend LFTs and coags; started Mucomyst drip per protocol -Liver ultrasound with portal vein Doppler-negative for any thrombus INR management as noted above Will give vitamin K if INR remains high (10) History of right below knee amputation: -S/P right BKA on 10/[address] Jones Given vancomycin plus Zosyn x6 days Surgical wound looks significantly improved since initiation of antibiotics Wound continues to heal well , daily wound care (11) Anemia associated with chronic renal failure: Hg stable (12) Eschar of finger: -Left second finger -Following with Dr. Pryor -No signs of active infection Orthopedic service consulted: Continue to observe at this point (13) ESRD (end stage renal disease) on dialysis: HD per Nephro (14) DM type 2 (diabetes mellitus, type 2): -Hgb A1c 7.3 08/2018 -Lantus and NovoLog per protocol while hospitalized (15) GERD (gastroesophageal reflux disease): -Continue PPI (16) DVT prophylaxis: INR 1.4 We will avoid anticoagulation as patient has coagulopathy Subjective ff up for hypotension, a fib Resting in bed, comfortable, drowsy but easily awakens Oriented x3 Denies shortness of breath, chest pain, dizziness, nausea Denies pain No other symptoms Physical Exam Vital Signs (Past 24 Hours): Last Vital Signs Temp 36.4 C L 11/29/18 23:00 Pulse 74 11/29/18 23:00 Resp 18 11/29/18 23:00 BP 118/70 11/29/18 23:00 Pulse Ox 97 11/29/18 23:00 Physical Exam: General- oriented x 3, not in distress, speaks in sentences with no effort or accessory muscle use Eyes- anicteric Neck- no JVD Lungs-clear BS bilaterally, no crackles or wheezing Heart- normal rate, regular rhythm; no murmurs Abdomen- normal bowel sounds, nondistended, soft, nontender Extremities-right BKA: [place] in place, wound healing well no discharge or bleeding, no erythema or edema Neuro-somewhat drowsy, oriented x 3; no gross focal neurologic deficits Skin- warm & dry Results & Data Laboratory Results Noted and reviewed (1) DM type 2 (diabetes mellitus, type 2) Diabetes mellitus complication detail: with peripheral angiopathy with gangrene Diabetes mellitus complication status: with circulatory complication Diabetes mellitus custodial insulin use: with custodial use Qualified Code(s): E11.52 - Type 2 diabetes mellitus with diabetic peripheral angiopathy with gangrene; 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 transplanted heart: [place] heart Qualified Code(s): I25.10 - Atherosclerotic heart disease of [place] coronary artery without angina pectoris (3) GERD (gastroesophageal reflux disease) Esophagitis presence: without esophagitis Qualified Code(s): K21.9 - Gastro- esophageal reflux disease without esophagitis
[2018-11-30] MEDS: HEPARIN SOD 5,000 UNIT/0.5 ML VIAL SQ SCH ×3 (05:55→20:52)
[2018-11-30] MEDS: MIDODRINE HCL 10 MG TAB PO SCH ×3 (05:56→17:59)
[2018-11-30] MEDS: LEVOTHYROXINE SODIUM 50 MCG TABLET PO SCH (05:56)
[2018-11-30] MEDS ORDERED: SODIUM CHLORIDE 0.9% 1000ML 1,000 ML IV PRN (08:32)
[2018-11-30] MEDS ORDERED: EPOETIN ALFA 10,000 UNITS/ML VIAL IV ONE (08:32)
[2018-11-30] MEDS ORDERED: HEPARIN SOD (PORCINE) 1000 UNIT/ML 10 ML VIAL IV ONE (08:32)
[2018-11-30] MEDS: ASPIRIN 81 MG ECTAB PO SCH (08:55)
[2018-11-30] MEDS: NEPHROCAPS PO SCH (08:55)
[2018-11-30] MEDS: SEVELAMER HCL 800 MG TABLET PO SCH ×3 (08:55→17:59)
[2018-11-30] MEDS: PANTOprazole 40 MG TAB PO SCH (08:55)
[2018-11-30] MEDS: CLOPIDOGREL BISULFATE 75 MG TAB PO SCH (08:55)
[2018-11-30] MEDS: AMIODARONE 200 MG TAB PO SCH ×2 (08:56→20:47)
[2018-11-30] MEDS: INSULIN ASPART 100 UNITS/ML 3 ML PEN SC SCH ×4 (08:57→20:59)
[2018-11-30] MEDS: NYSTATIN POWDER 15GM BTL EXT SCH ×2 (08:58→20:52)
[2018-11-30] MEDS: DOCUSATE SODIUM 100 MG CAP PO SCH ×2 (09:07→20:51)
[2018-11-30] MEDS: LIDOCAINE 5% 1 PATCH TD SCH (09:07)
[2018-11-30] MEDS: DOCUSATE SODIUM/SENNA 50/8.6MG TAB PO PRN (09:07)
[2018-11-30] MEDS: HEPARIN SOD (PORCINE) 1000 UNIT/ML 10 ML VIAL IV SCH ×2 (14:21→14:22)
--- NOTE | 2018-11-30 16:10 | Hospitalist Progress Note ---
Date of Service November 30, 2018 Assessment & Plan (1) Hypotension: in the setting of A fib in RVR, ICM Cosyntropin test performed: negative Empiric vancomycin and Zosyn given x6 days for possible infection Has been weaned off Isreal-Synephrine --BPs in the 90s-100s Denies dizziness, presyncope, chest pain, shortness of breath Continue to monitor closely (2) Physical deconditioning: PT OT in progress Patient anticipated to transition to detention facility upon discharge Palliative care team consulted, POLST form completed, patient would like to pursue present medical management at this time --PT OT in progress (3) Ischemic cardiomyopathy: -Troponin on presentation 2.34, EKG does not show acute ST changes -Patient reporting chest pain however seems to be musculoskeletal in nature and not similar to anginal equivalent in the past -History of CAD, S/P KAROLINE to mid circumflex 02/2018 and BMS to circumflex 2015, chronic RCA occlusion -Case discussed with Dr. Venegas who advised initiating heparin drip however unable to at this time due to coagulopathy ACS ruled out -Continue aspirin and Plavix; beta-silvia and nitrate as BP allows; holding statin due to elevated LFTs Management per nephrology via hemodialysis (4) New onset a-fib: Patient converted to sinus rhythm Transitioned from IV to p.o. amiodarone Rate is controlled with oral amiodarone Sinus rhythm, heart rate controlled (5) Hypoxia: secondary to bilateral pleural effusion volume management per Nephro wean off O2 accordingly (6) Elevated troponin: possible NSTEMI Heparin unable to be started due to coagulopathy Cardiology consulted continued on medical therapy (7) CAD (coronary artery disease): Management as noted above (8) Abnormal LFTs: per Dr. Robles's notes Likely multifactorial Her ALT was highly elevated in August LFTs are elevated at this time likely secondary to hypoxia/drug- induced/hepatitis/fatty liver with cirrhosis No portal vein thrombosis on ultrasound Appreciate GI input and recommendation She has been on Mucomyst and will finish the course-Mucomyst has been stopped this morning on 11/12 LFTs have been improving Received vitamin K 5 mg orally yesterday LFTs improving and INR is 1.5 today Repeat LFTs shows improvement Ultrasound of the liver did not show any significant cirrhosis and/or fatty infiltration of the liver MRCP-unremarkable, a few gallstones but no obstruction and no biliary ductal dilatation Liver function is improved further Denies any abdominal pain but has nausea and vomited once LFTs remain stable but INR is elevated to 1.9 today Will need to have vitamin K if INR goes high INR is 1.4 today We will monitor LFTs and INR INR remains 1.4 No signs of bleeding Continue to monitor closely (9) Coagulopathy: per Dr. Robles's notes: -On admission, patient found to have elevated AST and ALT -Initial INR 1.9 with repeat being 2.6 -No history of hepatic disease in the past -? Shock liver from hypotension yesterday -GI consult, case discussed with Dr. Eduardo who advises obtaining hepatitis panel, CMV, EBV, HSV; trend LFTs and coags; started Mucomyst drip per protocol -Liver ultrasound with portal vein Doppler-negative for any thrombus INR management as noted above Will give vitamin K if INR remains high (10) History of right below knee amputation: -S/P right BKA on 10/[address] Jones Given vancomycin plus Zosyn x6 days Surgical wound looks significantly improved since initiation of antibiotics Wound continues to heal well , daily wound care (11) Anemia associated with chronic renal failure: Hg stable (12) Eschar of finger: -Left second finger -Following with Dr. Pryor -No signs of active infection Orthopedic service consulted: Continue to observe at this point (13) ESRD (end stage renal disease) on dialysis: HD per Nephro (14) DM type 2 (diabetes mellitus, type 2): -Hgb A1c 7.3 08/2018 -Lantus and NovoLog per protocol while hospitalized (15) GERD (gastroesophageal reflux disease): -Continue PPI (16) DVT prophylaxis: INR 1.4 We will avoid anticoagulation as patient has coagulopathy Subjective ff up for hypotension, a fib Seen while having hemodialysis Resting in bed, comfortable, sleeping but easily arousable More alert today Answers all questions appropriately, oriented Denies shortness of breath, chest pain, dizziness Has some mild nausea today Positive bowel movements No other symptoms Physical Exam Vital Signs (Past 24 Hours): Last Vital Signs Temp 36.6 C 11/30/18 13:11 Pulse 51 L 11/30/18 16:00 Resp 18 11/30/18 07:27 BP 90/46 L 11/30/18 16:00 Pulse Ox 99 11/30/18 07:27 Physical Exam: General- oriented x 3, not in distress, speaks in sentences with no effort or accessory muscle use Eyes- anicteric Neck- no JVD Lungs- clear BS, no crackles or wheezing bilaterally Heart- normal rate, regular rhythm; no murmurs Abdomen- normal bowel sounds, nondistended, soft, nontender Extremities-right BKA: [place] in place, no bleeding or discharge, no erythema warmth or edema Left lower extremity no pretibial edema, no calf tenderness Neuro- alert, oriented x 3; no gross focal neurologic deficits Skin- warm & dry Results & Data Laboratory Results Noted and reviewed (1) CAD (coronary artery disease) Coronary Disease-Associated Artery/Lesion type: [place] artery [place] vs. transplanted heart: [place] heart Associated angina: without angina Qualified Code(s): I25.10 - Atherosclerotic heart disease of [place] coronary artery without angina pectoris (2) DM type 2 (diabetes mellitus, type 2) Diabetes mellitus director of nursing insulin use: with director of nursing use Diabetes mellitus complication status: with circulatory complication Diabetes mellitus complication detail: with peripheral angiopathy with gangrene Qualified Code(s): E11.52 - Type 2 diabetes mellitus with diabetic peripheral angiopathy with gangrene; Z79.4 - USP (current) use of insulin (3) GERD (gastroesophageal reflux disease) Esophagitis presence: without esophagitis Qualified Code(s): K21.9 - Gastro- esophageal reflux disease without esophagitis
[2018-11-30 17:25] LABS: INR 1.3 (0.9-1.1)
--- NOTE | 2018-11-30 17:53 | Nephrology Progress Note ---
Date of Service November 30, 2018 Assessment & Plan (1) ESRD (end stage renal disease) on dialysis: ESRD patient on HD TTS. Patient seen during rounds this morning. She will be dialysed today for 4hrs on 3k bath. Next HD Tuesday outpatient. Patient is now focussed on getting better and wants to continue HD -cont BB and midodrine as needed -based on / iron studies >> 50 mg venofer w/ HD once weekly q thurs -Give epo 10,000 units with HD -binders also continued when taking po reliably -palliative care documentation noted Subjective ESRD pt seen during rounds this morning in f/u. She reports improvement in her breathing. She is planned for HD today afternoon. She is now focussed on getting better and would like to continue HD. She is planned for d/c to [facility] tomorrow as well. She remains weak. No vomiting or diarrhoea. She is cons tipated. Constitutional: + fatigue and + weakness Respiratory: as per Subjective / HPI, + pain on inspiration and + pain with cough Cardiovascular: as per Subjective / HPI; no dyspnea, no palpitations and no edema Gastrointestinal: + abdominal pain (some RUQ and R chest); no vomiting and no change in bowel habits Musculoskeletal: + muscle weakness Integumentary: + non-healing lesions Neurologic: + generalized weakness; no confusion and no memory loss Psychiatric: + depression Endocrine: + fatigue Physical Exam Vital Signs (Past 24 Hours): Last Vital Signs Temp 36.6 C 11/30/18 13:11 Pulse 60 11/30/18 17:00 Resp 18 11/30/18 07:27 BP 95/41 L 11/30/18 17:00 Pulse Ox 99 11/30/18 07:27 Physical Exam: General exam: Appears comfortable, no acute distress HEENT: Pupils are equal and reactive to light Neck: No JVD, neck is supple trachea is midline Respiratory system: Clear breath sounds bilaterally. Gastrointestinal: Abdomen is soft, non distended, non tender, bowel sounds are present CVS: Regular rate and rhythm. No murmurs, rubs or gallops Musculoskeletal: No joint or muscle tenderness Extremities: Non tender, no edema, peripheral pulses are present. right BKA Neuro: Oriented, no tremors, no focal neurological deficits Skin: No rashes Access: AVF with good bruit
[2018-11-30] MEDS: POLYETHYLENE (MIRALAX) 17 GM PACK PO SCH (20:47)
[2018-11-30] MEDS: GABAPENTIN 300 MG CAP PO SCH (20:48)
[2018-11-30] MEDS: SERTRALINE HCL 50 MG TABLET PO SCH (20:49)
[2018-12-01] MEDS: HEPARIN SOD 5,000 UNIT/0.5 ML VIAL SQ SCH ×2 (05:50→12:57)
[2018-12-01] MEDS: LEVOTHYROXINE SODIUM 50 MCG TABLET PO SCH (05:50)
[2018-12-01 07:29] VITALS: TEMP 98.1
[2018-12-01] MEDS: SEVELAMER HCL 800 MG TABLET PO SCH ×2 (08:52→12:57)
[2018-12-01] MEDS: NEPHROCAPS PO SCH (08:52)
[2018-12-01] MEDS: MIDODRINE HCL 10 MG TAB PO SCH ×3 (08:52→15:17)
[2018-12-01] MEDS: CLOPIDOGREL BISULFATE 75 MG TAB PO SCH (08:52)
[2018-12-01] MEDS: PANTOprazole 40 MG TAB PO SCH (08:52)
[2018-12-01] MEDS: ASPIRIN 81 MG ECTAB PO SCH (08:52)
[2018-12-01] MEDS: AMIODARONE 200 MG TAB PO SCH (08:52)
[2018-12-01] MEDS: NYSTATIN POWDER 15GM BTL EXT SCH (08:53)
[2018-12-01] MEDS: POLYETHYLENE (MIRALAX) 17 GM PACK PO SCH (08:54)
[2018-12-01] MEDS: LIDOCAINE 5% 1 PATCH TD SCH (08:54)
[2018-12-01] MEDS: INSULIN ASPART 100 UNITS/ML 3 ML PEN SC SCH ×2 (08:55→12:59)
[2018-12-01] MEDS: DOCUSATE SODIUM 100 MG CAP PO SCH (09:00)
[2018-12-01 10:45] LABS: Hematocrit (blood only) 34.1 % (37-47); Hemoglobin 9.5 g/dL (12.0-16.0); Mean Corpuscular Hgb Conc 27.9 g/dL (32-36); Mean Corpuscular Volume 91.4 fL (80-100); Mean Platelet Volume 10.2 fL (7.4-10.4); Platelet Count 298 K/uL (130-400); RDW Standard Deviation 76.3 fL (36.4-46.3); Red Blood Count 3.73 M/uL (4.2-5.4); White Blood Count 6.59 K/uL (4.8-10.8)
[2018-12-01 10:49] LABS: BUN Creatinine Ratio 5.1 (10-20); Calcium 9.3 mg/dl (8.5-10.1); Est GFR (African American) 15.6; Est GFR (Non-African American) 13.5; Magnesium 2.2 mg/dl (1.8-2.4); Potassium 3.8 mmol/L (3.5-5.1)
[2018-12-01] MEDS: OXYCODONE HCL IR 5 MG TAB (IMMEDIATE RELEASE) PO PRN (11:01)
[2018-12-01 11:16] LABS: Anisocytosis Present; Basophils # (auto) 0.05 K/uL (0-0.2); Basophils % (auto) 0.8 %; Eosinophils # (auto) 0.27 K/uL (0-0.5); Eosinophils % (auto) 4.1 %; Lymphocytes # (auto) 1.31 K/uL (1.2-3.4); Lymphocytes % (auto) 19.9 %; Monocytes # (auto) 1.15 K/uL (0.11-0.59); Monocytes % (auto) 17.5 %; Neutrophils # (auto) 3.81 K/uL (1.4-6.5); Neutrophils % (auto) 57.7 %; Poikilocytosis Present
--- NOTE | 2018-12-01 11:45 | Hospitalist Progress Note ---
Date of Service December 01, 2018 Assessment & Plan (1) Hypotension: in the setting of A fib in RVR, ICM Cosyntropin test performed: negative Empiric vancomycin and Zosyn given days for possible infection; stop after completion of the course Has been weaned off Isreal-Synephrine She has been out of ICU and off pressors for the last few days Her blood pressure is maintained systolic more than 100 She is stable to be discharged today (2) Physical deconditioning: PT OT in progress Patient anticipated to transition to longterm facility upon discharge Palliative care team consulted, POLST form completed, patient would like to pursue present medical management at this time Appreciate palliative care input and recommendation She has been getting PT and OT evaluation She is a stable to be transferred to skilled care facility today (3) Ischemic cardiomyopathy: -Troponin on presentation 2.34, EKG does not show acute ST changes -Patient reporting chest pain however seems to be musculoskeletal in nature and not similar to anginal equivalent in the past -History of CAD, S/P KAROLINE to mid circumflex 02/2018 and BMS to circumflex 2015, chronic RCA occlusion -Case discussed with Dr. Venegas who advised initiating heparin drip however unable to at this time due to coagulopathy ACS ruled out -Continue aspirin and Plavix; beta-silvia and nitrate as BP allows; holding statin due to elevated LFTs -We will continue with amiodarone to control the heart rate (4) New onset a-fib: Patient converted to sinus rhythm Transitioned from IV to p.o. amiodarone Rate is controlled with oral amiodarone Sinus rhythm, heart rate controlled (5) Hypoxia: secondary to bilateral pleural effusion volume management per Nephro wean off O2 accordingly (6) Elevated troponin: possible NSTEMI Heparin unable to be started due to coagulopathy Cardiology consulted appreciate input and recommendation continued on medical therapy (7) CAD (coronary artery disease): Management as noted above (8) Abnormal LFTs: per Dr. Robles's notes Likely multifactorial Her ALT was highly elevated in August LFTs are elevated at this time likely secondary to hypoxia/drug- induced/hepatitis/fatty liver with cirrhosis No portal vein thrombosis on ultrasound Appreciate GI input and recommendation She has been on Mucomyst and will finish the course-Mucomyst has been stopped this morning on 11/12 LFTs have been improving Received vitamin K 5 mg orally yesterday LFTs improving and INR is 1.5 today Repeat LFTs shows improvement Ultrasound of the liver did not show any significant cirrhosis and/or fatty infiltration of the liver MRCP-unremarkable, a few gallstones but no obstruction and no biliary ductal dilatation Liver function is improved further Denies any abdominal pain but has nausea and vomited once LFTs remain stable but INR is elevated to 1.9 today Will need to have vitamin K if INR goes high INR is 1.4 today We will monitor LFTs and INR INR remains 1.3 No signs of bleeding Continue to monitor closely (9) Coagulopathy: per Dr. Robles's notes: -On admission, patient found to have elevated AST and ALT -Initial INR 1.9 with repeat being 2.6 -No history of hepatic disease in the past -? Shock liver from hypotension yesterday -GI consult, case discussed with Dr. Eduardo who advises obtaining hepatitis panel, CMV, EBV, HSV; trend LFTs and coags; started Mucomyst drip per protocol -Liver ultrasound with portal vein Doppler-negative for any thrombus INR remains stable at around 1.3 (10) History of right below knee amputation: -S/P right BKA on 10/[address] Jones Given vancomycin plus Zosyn x6 days Surgical wound looks significantly improved since initiation of antibiotics Wound continues to heal well , daily wound care (11) Anemia associated with chronic renal failure: Hg stable (12) Eschar of finger: -Left second finger -Following with Dr. Pryor -No signs of active infection Orthopedic service consulted: Continue to observe at this point (13) ESRD (end stage renal disease) on dialysis: HD per Nephro Continue hemodialysis as an outpatient (14) DM type 2 (diabetes mellitus, type 2): -Hgb A1c 7.3 08/2018 -Lantus and NovoLog per protocol while hospitalized (15) GERD (gastroesophageal reflux disease): -Continue PPI (16) DVT prophylaxis: INR 1.4 We will avoid anticoagulation as patient has coagulopathy Right AKA amputation stump is looking good [place] were taken out by vascular surgery today Subjective 12/01 Patient was seen and examined in medical floor He has been stable for the last few days and her blood pressure is maintained above 100 off pressors She complains to have nonspecific discomfort in the abdomen without any nausea and/or vomiting And she denies any other symptoms of shortness of breath, palpitation or pain Physical Exam Vital Signs (Past 24 Hours): Last Vital Signs Temp 36.7 C 12/01/18 07:28 Pulse 80 12/01/18 08:51 Resp 16 12/01/18 07:28 BP 105/72 12/01/18 07:28 Pulse Ox 99 12/01/18 07:28 Physical Exam: No apparent distress at rest Constitutional: WD/WN, vitals as above well developed, + obese and + edematous Eyes: PERRL, conjunctivae normal, anicteric sclerae ENMT: external ear and nose normal, oropharynx normal Respiratory: normal respiratory effort Auscultation: + diminished lung sounds and + crackles (Minimal crackles at the bases) Cardiovascular: Rate/Rhythm: + abnormal rate and + abnormal rhythm Vessels: normal peripheral pulses Extremities: + edema Gastrointestinal (Abdomen): Inspection/Auscultation: + abdomen distended and normal bowel sounds Percussion/Palpation: + abdomen tender (Mildly tender in the epigastrium) and abdomen soft Musculoskeletal: no cyanosis or clubbing, extremities motor strength 5/5 Extremities: + lower leg abnormality (Right AKA) Skin: no rashes, warm and dry Neurologic: PERRL, EOMI, accommodation nl, no face palsy, no dysarthria awake Motor/Sensory: + tremor (Occasional tremor of the upper extremities) Psychiatric: A+Ox3, euthymic affect Results & Data Laboratory Results Short CBC 12/01/18 Range/Units 10:09 WBC 6.59 (4.8-10.8) K/uL Hgb 9.5 L (12.0-16.0) g/dL Hct 34.1 L (37-47) % Plt Count 298 (130-400) K/uL BMP 12/01/18 10:09 Sodium 136 Potassium 3.8 Chloride 102 Carbon Dioxide 30 BUN 19 H Creatinine 3.66 H Glucose 145 H Calcium 9.3 Medications Administered Current Inpatient Medications Amiodarone HCl (Cordarone) 200 mg PO BID [facility] Stop: 12/19/18 08:59 Last Admin: 12/01/18 08:52 Dose: 200 mg Documented by: Aspirin (Ecotrin Ectab) [facility] [place] Stop: 12/11/18 08:59 Last Admin: 12/01/18 08:52 Dose: 81 mg Documented by: Clopidogrel Bisulfate (Plavix) 75 mg PO QAM [facility] Stop: 12/11/18 08:59 Last Admin: 12/01/18 08:52 Dose: 75 mg Documented by: Dextrose (Dextrose 50%) 25 - 50 ml IV UD PRN; Protocol PRN Reason: Hypoglycemia Protocol Stop: 12/10/18 16:09 Last Admin: 11/24/18 06:42 Dose: 25 ml Documented by: Docusate Sodium (Colace) 100 mg PO BID [facility] Stop: 12/10/18 20:59 Last Admin: 12/01/18 09:00 Dose: 100 mg Documented by: Gabapentin (Neurontin) 300 mg PO HS [facility] Stop: 12/10/18 20:59 Last Admin: 11/30/18 20:48 Dose: 300 mg Documented by: Glucagon (Glucagen) 1 mg SQ UD PRN; Protocol PRN Reason: Hypoglycemia Protocol Stop: 12/10/18 16:09 Glucose (Glucose 40%) 15 - 30 gm PO UD PRN; Protocol PRN Reason: Hypoglycemia Protocol Stop: 12/10/18 16:09 Glucose (Dex4 Glucose) 4 - 8 tabs PO UD PRN; Protocol PRN Reason: Hypoglycemia Protocol Stop: 12/10/18 16:09 Heparin Sodium (Beef Lung) (Heparin Sod 10 Unit/Ml Flush) 5 ml FLUSH PRN PRN PRN Reason: Flush Stop: 12/19/18 00:05 Last Admin: 11/29/18 21:16 Dose: 5 ml Documented by: Heparin Sodium (Porcine) (Heparin Sodium (Porcine)) 5,000 units SQ Q8 [facility] Stop: 12/19/18 13:59 Last Admin: 12/01/18 05:50 Dose: 5,000 units Documented by: Promethazine HCl 12.5 mg/ (Sodium Chloride) 50.5 mls @ 202 mls/hr IV Q6H PRN PRN Reason: Nausea And Vomiting Stop: 12/26/18 17:39 Last Infusion: 11/29/18 21:32 Dose: Infused Documented by: Insulin Aspart (Novolog Flexpen) 0 units SC ACHS [facility]; Protocol Stop: 12/10/18 16:29 Last Admin: 12/01/18 08:55 Dose: 1 units Documented by: Levalbuterol HCl (Xopenex 0.63 Mg/3 Ml Neb) 0.63 mg NEB Q4H PRN PRN Reason: Shortness Of Breath Or [place]ez[place] Stop: 12/14/18 20:57 Last Admin: 11/14/18 22:13 Dose: 0.63 mg Documented by: Levothyroxine Sodium (Synthroid) 50 mcg PO DAILYBB [facility] Stop: 12/11/18 06:29 Last Admin: 12/01/18 05:50 Dose: 50 mcg Documented by: Lidocaine (Lidoderm 5%) 1 patch TD QAM [facility] Stop: 12/11/18 08:59 Last Admin: 12/01/18 08:54 Dose: Not Given Documented by: Magnesium Hydroxide (Milk Of Magnesia) 30 ml PO DAILY PRN PRN Reason: Constipation Stop: 12/10/18 16:00 Meclizine HCl (Antivert) 25 mg PO TID PRN PRN Reason: Dizziness Stop: 12/10/18 16:00 Miconazole Nitrate (Desenex) 1 appln EXT PRN PRN PRN Reason: Affected Skin Folds Stop: 12/17/18 10:49 Midodrine (Proamatine) 10 mg PO DAILY@0700,1100,1500 [facility] Stop: 12/28/18 10:59 Last Admin: 12/01/18 11:01 Dose: 10 mg Documented by: Miscellaneous (Order Awaiting Action) 1 ea N/A QS [facility] Stop: 12/11/18 00:00 Last Admin: 12/01/18 08:54 Dose: Not Given Documented by: Miscellaneous (Remove Lidoderm Patch) 1 ea N/A DAILY@2100 [facility] Stop: 12/10/18 20:59 Last Admin: 11/30/18 20:52 Dose: Not Given Documented by: Miscellaneous (Carbohydrates For Hypoglycemia) 15 - 30 gm PO UD PRN PRN Reason: Hypoglycemia Treatment Stop: 12/10/18 16:09 Miscellaneous Information (Consult Glycemic Management Pharmacy) 1 ea N/A UD [facility] Stop: 12/24/18 09:07 Nystatin (Mycostatin) 1 appln EXT BID [facility] Stop: 12/10/18 20:59 Last Admin: 12/01/18 08:53 Dose: 1 appln Documented by: Ondansetron HCl (Zofran) 4 mg PO QID PRN PRN Reason: Nausea Stop: 12/10/18 16:00 Last Admin: 11/29/18 10:53 Dose: 4 mg Documented by: Oxycodone HCl (Roxicodone Immediate Rel) 5 mg PO Q6H PRN PRN Reason: Pain Stop: 12/04/18 08:55 Last Admin: 12/01/18 11:01 Dose: 5 mg Documented by: Pantoprazole Sodium (Protonix) 40 mg PO QAM [facility] Stop: 12/11/18 08:59 Last Admin: 12/01/18 08:52 Dose: 40 mg Documented by: Polyethylene Glycol (Miralax Powder Packet) 17 gm PO QDL PRN PRN Reason: Constipation Stop: 12/10/18 16:00 Polyethylene Glycol (Miralax Powder Packet) 17 gm PO DAILY [facility] Stop: 12/30/18 17:59 Last Admin: 12/01/18 08:54 Dose: 17 gm Documented by: Senna/Docusate Sodium (Senokot S) 1 tab PO QDL PRN PRN Reason: Constipation Stop: 12/10/18 16:00 Last Admin: 11/30/18 09:07 Dose: 1 tab Documented by: Sertraline HCl (Zoloft) 25 mg PO TODAY@2100 [facility] Stop: 12/15/18 20:59 Last Admin: 11/30/18 20:49 Dose: 25 mg Documented by: Sevelamer HCl (Renagel) 3,200 mg PO TIDM [facility] Stop: 12/10/18 16:59 Last Admin: 12/01/18 08:52 Dose: 3,200 mg Documented by: Vitamin B Complex/Folic Acid (Nephrocaps) 1 cap PO QAM [facility] Stop: 12/11/18 08:59 Last Admin: 12/01/18 08:52 Dose: 1 cap Documented by: (1) CAD (coronary artery disease) Coronary Disease-Associated Artery/Lesion type: [place] artery [place] vs. transplanted heart: [place] heart Associated angina: without angina Qualified Code(s): I25.10 - Atherosclerotic heart disease of [place] coronary artery without angina pectoris (2) DM type 2 (diabetes mellitus, type 2) Diabetes mellitus keno terminal operator insulin use: with keno terminal operator use Diabetes mellitus complication status: with circulatory complication Diabetes mellitus complication detail: with peripheral angiopathy with gangrene Qualified Code(s): E11.52 - Type 2 diabetes mellitus with diabetic peripheral angiopathy with gangrene; Z79.4 - snf (current) use of insulin (3) GERD (gastroesophageal reflux disease) Esophagitis presence: without esophagitis Qualified Code(s): K21.9 - Gastro- esophageal reflux disease without esophagitis
[2018-12-01 14:27] VITALS: BP 113/74; PULSE 62; O2SAT 91
--- NOTE | 2018-12-04 09:18 | Discharge Summary ---
Date of Service December 04, 2018 Admission HPI Per Admitting Provider 52-year-old female who was sent to the ED from [facility] for evaluation of hypotension and hypoxia. Patient was recently admitted to [facility] 10/27 through 11/03 when she underwent a right BKA. Patient was transferred to [facility] for rehab needs. Patient reports that she had been doing well until last week. She reports that while at therapy, she was having some midsternal chest pain. She reports that she felt as though she "pulled something" and that this pain was not similar to her prior anginal equivalents. She reports pain has been worse with movement and also with a deep breath. Over the past couple of days, patient reports she is felt generally weak, nauseous with poor appetite. Yesterday with dialysis, she was reportedly hypotensive. She also has developed oxygen requirement of 2 L. Patient denies feeling short of breath however does report she has been pretty much bedbound for the past couple of days and has not been exerting herself. She reports feeling lightheaded with sitting up but denies any syncopal events. No abdominal pain, vomiting, or diarrhea. She denies fevers and chills. She does continue to make a small amount urine. In the ED, patient was mildly hypotensive with systolic blood pressures in the 90s. She received 500 cc NSS with improvement in BP. During my exam, I placed patient on room air and she became hypoxic 88%, this improved when I reapplied oxygen 2 L via nasal cannula. Labs show an elevated troponin at 2.34, EKG is negative for acute ST changes. ALT is 281 and AST 608. Admission Exam Per Admitting Provider Vital Signs (Past 24 Hours): Last Vital Signs Temp 36.7 C 11/10/18 20:00 Pulse 80 11/10/18 20:00 Resp 20 11/10/18 20:00 BP 90/63 L 11/10/18 20:00 Pulse Ox 96 11/10/18 20:00 Constitutional: WD/WN, vitals as above Eyes: PERRL, conjunctivae normal, anicteric sclerae ENMT: external ear and nose normal, oropharynx normal Respiratory: normal respiratory effort; no respiratory distress Aus cultation: + diminished lung sounds Cardiovascular: Rate/Rhythm: regular rate and regular rhythm Vessels: normal peripheral pulses Extremities: no edema Gastrointestinal (Abdomen): normal bowel sounds, soft, nontender, no hepatosplenomegaly Musculoskeletal: no cyanosis or clubbing, extremities motor strength 5/5 S/P right BKA, incisional murali intact with mild surrounding erythema however does not appear to be infected, no drainage noted Skin: no rashes, warm and dry Black eschar noted to left second finger Neurologic: PERRL, EOMI, accommodation nl, no face palsy, no dysarthria Psychiatric: A+Ox3, euthymic affect Principal Diagnosis End-stage renal disease on hemodialysis, ischemic cardiomyopathy, atrial fibrillation on amiodarone Discharge Exam Constitutional WD/WN, vitals as above well developed, + obese and + edematous Eyes PERRL, conjunctivae normal, anicteric sclerae ENMT external ear and nose normal, oropharynx normal Respiratory normal respiratory effort Auscultation: + diminished lung sounds and + crackles (Minimal crackles at the bases) Cardiovascular Rate/Rhythm: + abnormal rate and + abnormal rhythm Vessels: normal peripheral pulses Extremities: + edema Gastrointestinal (Abdomen) Inspection/Auscultation: + abdomen distended and normal bowel sounds Percussion/Palpation: + abdomen tender (Mildly tender in the epigastrium) and abdomen soft Musculoskeletal no cyanosis or clubbing, extremities motor strength 5/5 Extremities: + lower leg abnormality (Right AKA) Skin no rashes, warm and dry Neurologic PERRL, EOMI, accommodation nl, no face palsy, no dysarthria awake Motor/Sensory: + tremor (Occasional tremor of the upper extremities) Psychiatric A+Ox3, euthymic affect Discharge Data Allergies Allergy/AdvReac Type Severity Reaction Status Date / Time adhesive Allergy Mild RASH, SORES Verified 11/10/18 12:48 latex Allergy Mild rash Verified 11/10/18 12:48 No Known Drug Allergies Allergy Mild . Verified 11/10/18 12:48 pollen extracts Allergy Mild WATERY EYES Verified 11/10/18 12:48 Consultations 11/10/18 14:09 ED Decision to Admit Stat 11/10/18 15:50 Consult Cardiology Routine Consult Case Management - Discharge Planning Routine Consult Nephrology Routine 11/10/18 19:30 Consult Gastroenterology Routine 11/18/18 08:12 Consult Cardiology Routine 11/18/18 09:23 Consult Clothing Room Supervisor Stat 11/23/18 17:16 Consult Palliative Care Routine 04/08/19 15:23 Consult Orthopedic Surgery Routine Ordered Studies 11/10/18 12:16 CT head/brain wo con Stat 11/11/18 00:00 US duplex portal hepatic veins Urgent 11/12/18 13:26 US abdomen limited Routine 11/14/18 08:19 MR MRCP Routine 11/18/18 12:45 US point of care ultrasound Routine Hospital Course (1) Hypotension: in the setting of A fib in RVR, ICM Cosyntropin test performed: negative Empiric vancomycin and Zosyn given days for possible infection; stop after completion of the course Has been weaned off Isreal-Synephrine She has been out of ICU and off pressors for the last few days Her blood pressure is maintained systolic more than 100 She is stable to be discharged today (2) Physical deconditioning: PT OT in progress Patient anticipated to transition to detention facility upon discharge Palliative care team consulted, POLST form completed, patient would like to pursue present medical management at this time Appreciate palliative care input and recommendation She has been getting PT and OT evaluation She is a stable to be transferred to skilled care facility today (3) Ischemic cardiomyopathy: -Troponin on presentation 2.34, EKG does not show acute ST changes -Patient reporting chest pain however seems to be musculoskeletal in nature and not similar to anginal equivalent in the past -History of CAD, S/P KAROLINE to mid circumflex 02/2018 and BMS to circumflex 2015, chronic RCA occlusion -Case discussed with Dr. Venegas who advised initiating heparin drip however unable to at this time due to coagulopathy ACS ruled out -Continue aspirin and Plavix; beta-silvia and nitrate as BP allows; holding statin due to elevated LFTs -We will continue with amiodarone to control the heart rate (4) New onset a-fib: Patient converted to sinus rhythm Transitioned from IV to p.o. amiodarone Rate is controlled with oral amiodarone Sinus rhythm, heart rate controlled (5) Hypoxia: secondary to bilateral pleural effusion volume management per Nephro wean off O2 accordingly (6) Elevated troponin: possible NSTEMI Heparin unable to be started due to coagulopathy Cardiology consulted appreciate input and recommendation continued on medical therapy (7) CAD (coronary artery disease): Management as noted above (8) Abnormal LFTs: per Dr. Robles's notes Likely multifactorial Her ALT was highly elevated in August LFTs are elevated at this time likely secondary to hypoxia/drug- induced/hepatitis/fatty liver with cirrhosis No portal vein thrombosis on ultrasound Appreciate GI input and recommendation She has been on Mucomyst and will finish the course-Mucomyst has been stopped this morning on 11/12 LFTs have been improving Received vitamin K 5 mg orally yesterday LFTs improving and INR is 1.5 today Repeat LFTs shows improvement Ultrasound of the liver did not show any significant cirrhosis and/or fatty i nfiltration of the liver MRCP-unremarkable, a few gallstones but no obstruction and no biliary ductal dilatation Liver function is improved further Denies any abdominal pain but has nausea and vomited once LFTs remain stable but INR is elevated to 1.9 today Will need to have vitamin K if INR goes high INR is 1.4 today We will monitor LFTs and INR INR remains 1.3 No signs of bleeding Continue to monitor closely (9) Coagulopathy: per Dr. Robles's notes: -On admission, patient found to have elevated AST and ALT -Initial INR 1.9 with repeat being 2.6 -No history of hepatic disease in the past -? Shock liver from hypotension yesterday -GI consult, case discussed with Dr. Eduardo who advises obtaining hepatitis panel, CMV, EBV, HSV; trend LFTs and coags; started Mucomyst drip per protocol -Liver ultrasound with portal vein Doppler-negative for any thrombus INR remains stable at around 1.3 (10) History of right below knee amputation: -S/P right BKA on 10/[address] Jones Given vancomycin plus Zosyn x6 days Surgical wound looks significantly improved since initiation of antibiotics Wound continues to heal well , daily wound care (11) Anemia associated with chronic renal failure: Hg stable (12) Eschar of finger: -Left second finger -Following with Dr. Pryor -No signs of active infection Orthopedic service consulted: Continue to observe at this point (13) ESRD (end stage renal disease) on dialysis: HD per Nephro Continue hemodialysis as an outpatient (14) DM type 2 (diabetes mellitus, type 2): -Hgb A1c 7.3 08/2018 -Lantus and NovoLog per protocol while hospitalized (15) GERD (gastroesophageal reflux disease): -Continue PPI (16) DVT prophylaxis: INR 1.4 We will avoid anticoagulation as patient has coagulopathy Right AKA amputation stump is looking good Murali were taken out by vascular surgery today Total Time Total Time Spent Total Time Spent (In Minutes): 40 minutes Total Time Includes: Examination of the Patient, Discharge Planning, Medication Reconciliation and Communication With Other Providers Discharge Plan Discharge Items Patient Disposition: Transfer Nursing Home Fac Reason For Visit: HYPOTENSION,ELEVATED TROP Discharge Diagnosis: End-stage renal disease on hemodialysis, ischemic car diomyopathy, atrial fibrillation on amiodarone Condition: Fair Discharge Goals: Decrease discomfort, Improve function and Increase independence Activity: Resume your previous activity Non-emergency contact: Primary Care Provider Call non-emergency contact if: you have any medication questions Follow-up/Referrals: Tamy Becerra, [Primary Care Provider] - (Please make an appointment with your primary care physician within 7 days following discharge from the facility) Diet: Dialysis Renal and Heart Healthy Fluids: 1500ml (6 cups) Addtl Provider Instructions: Please take precaution to avoid falls. Continue hemodialysis as an outpatient Prescriptions: New amiodarone 200 mg Tablet 200 mg PO BID 30 Days Qty: 60 RF: 0 oxycodone 5 mg Tablet 5 mg PO Q6H PRN (Reason: pain) 7 Days Qty: 20 RF: 0 Continued pantoprazole 40 mg tablet,delayed release (DR/EC) 40 mg PO QAM RF: 0 nitroglycerin 0.4 mg tablet, sublingual 0.4 mg Sublingual DIRECTED PRN (Reason: Chest Pain) RF: 0 sertraline 25 mg tablet 25 mg PO QAM RF: 0 aspirin 81 mg Tablet,Delayed Release (Dr/Ec) 81 mg PO QAM RF: 0 Novolog U-100 Insulin aspart 100 unit/mL Solution 1 sliding scale dose SUBCUT USEASDIRECTD RF: 0 heparin (porcine) 5,000 unit/mL Solution 5,000 unit SUBCUT Q12H RF: 0 fluticasone propionate [Flonase Allergy Relief] 50 mcg/actuation [place],Suspension 1 spray INTRANASAL QAM RF: 0 gabapentin 100 mg Capsule 300 mg PO HS RF: 0 levothyroxine 50 mcg Tablet 50 mcg PO QAM RF: 0 meclizine 25 mg Tablet 25 mg PO TID PRN (Reason: Dizziness) RF: 0 midodrine 10 mg Tablet 10 mg PO TID RF: 0 nystatin 100,000 unit/gram Powder 1 applic TOPICAL BID RF: 0 sennosides-docusate sodium [Senna-S] 8.6-50 mg Tablet 1 tab PO QDL PRN (Reason: Constipation) RF: 0 sevelamer carbonate [Renvela] 800 mg Tablet 3,200 mg PO TIDM RF: 0 polyethylene glycol 3350 [Miralax] 17 gram Powder In Packet 17 g PO QDL PRN (Reason: Constipation) RF: 0 lorazepam [Ativan] 0.5 mg Tablet 0.5 mg PO DAILY PRN (Reason: Anxiety) RF: 0 bisacodyl 10 mg Suppository 10 mg OK DAILY PRN (Reason: Constipation) RF: 0 magnesium hydroxide [Milk of Magnesia] 400 mg/5 mL Suspension 30 ml PO DAILY PRN (Reason: Constipation) RF: 0 ondansetron HCl [Zofran] 4 mg Tablet 4 mg PO QID PRN (Reason: Nausea) RF: 0 Fleet Enema 19-7 gram/118 mL Enema 118 ml OK DAILY PRN (Reason: Constipation) RF: 0 acetaminophen 500 mg Tablet 500 mg PO Q4H PRN (Reason: Pain) RF: 0 lidocaine [Lidoderm] 5 % Adhesive Patch,Medicated 1 patch TOPICAL QAM RF: 0 docusate sodium 100 mg Capsule 100 mg PO BID RF: 0 Nephrocaps 1 mg Capsule 1 cap PO QAM RF: 0 Aranesp (in polysorbate) 60 mcg/0.3 mL Syringe 1 dose subcut WK RF: 0 dextrose [Glucose Gel] 40 % Gel See Rx Instructions .ROUTE .COMPLEX PRN (Reason: Hypoglycemia) RF: 0 clopidogrel [Plavix] 75 mg Tablet 75 mg PO QAM RF: 0 Venofer 100 mg iron/5 mL Solution See Rx Instructions .ROUTE .COMPLEX RF: 0 sodium chloride 0.9 % Parenteral Solution 1,000 ml IV UD PRN (Reason: Pain) RF: 0 glucagon HCl 1 mg Recon Soln See Rx Instructions .ROUTE .COMPLEX PRN (Reason: Hypoglycemia) RF: 0 Changed Lantus U-100 Insulin 100 unit/mL Solution 10 unit SUBCUT HS Qty: 0 RF: 0 Discontinued atorvastatin 40 mg tablet 40 mg PO QAM RF: 0 isosorbide mononitrate 60 mg Tablet Extended Release 24 Hr 60 mg PO QAM RF: 0 metoprolol tartrate 25 mg tablet 12.5 mg PO BID RF: 0 hydrocodone-acetaminophen 5-325 mg Tablet 1 tab PO Q6H PRN (Reason: Pain) RF: 0 Stand-Alone Forms: [facility] Discharge Orders: Discharge Order (Routine); Ordered 12/01/18 Ordered By: Margarita Robles Skilled Items Patient informed of condition?: Yes DNR: Yes Discharge Level of Care: Skilled Communicable Disease: No Discharge Prognosis: Stable Admission Data Admit Date/Time: 11/10/18 15:10 Attending Provider: Margarita Robles Admit Provider: Margarita Robles Primary Care Provider: Tamy Becerra Other Providers: Anuel Venegas ; Alvin Li ; Margarita Robles ; Tereza Mas ; Luke Eduardo ; Joselo Colmenares ; Mikal Alejandro ; Timothy Lay ; Dawson Guy ; Shaquille Posey Jr ; Arnaldo Bowen ; Roxana Horn ; Nereyda Quiles ; Anuel Zamora ; Jr Cali ; Joey Phillips Jennifer M. ; Lelia Mendieta ; Wagner Rosenthal ; Tamy Talley ; Wilton Montalvo ; Josue Mohan ; Laith Ferguson ; Roxana Gillis Thomas J ; Minoo Barrow ; Cordell Jacobson ; Edmundo Bowen ; Anuel Pryor ; Edmundo Hernandez Andrew J. ; Anuel Schaefer ; Romeo Saravia ; Rj Núñez ; Lincoln Colby ; Clarence Mccarthy ; Chava Sena ; Bethel Abdi ; Isaias Olsen ; Minoo Pond Casey R ; Kennedy Albrecht ; Cem Millan ; Rene Cordoba Service: Medical Other Interventions: Discharge Summary Assessment (RN) Last Done: 12/01/18 15:45 DC Date/Time DO NOT enter until pt leaves facility: 12/01/18 16:56
== END 2018-12-01 16:56 | DRG 698 ==
LOC: ED 11:38 → SUATTDRO 15:10 → 2E 15:10 → 3W 11-13 12:39 → 1E 11-18 07:56 → 2S 11-24 12:32 → 4E 11-28 17:31